=== PATIENT | male | born 1935 | race Caucasian/White ===

== ENCOUNTER → 2016-10-12 | Outpatient (CLI) | payer MEDICARE, OTHER ==
[~2016-10-12] VITALS: Ht 180.3 cm; Wt 70.3 kg
[~2016-10-12] MED LIST: ACETAMINOPHEN 325 MG TABLET/CAPLET (TYLENOL) ONE; ACETAMINOPHEN 325 MG TABLET/CAPLET (TYLENOL) PO NR; ACHD5005 PO; B12 INJECTIONS; DOXY100C2 PO; IRON INJECTIONS; IRON SUCROSE 250 MG/NS 100 ML IVPB IV NR; diphenhydrAMINE 50 MG/ML INJ (BENADRYL) IV NR; diphenhydrAMINE 50 MG/ML INJ (BENADRYL) ONE
--- OUTSIDE RECORDS SUMMARY | 2016-10-12 10:13 | XMS REPORT | Continuity of Care Document ---
Author Author [facility] Address Unknown Phone Unavailable Allergies Active Description Code Type Severity Reaction Onset Reported/Identified Relationship to Patient Clinical Status Yes ibuprofen [id number] Drug Allergy Unknown RASH 05/07/2009 Medications Problems Date Dx Coded Attending Type Code Diagnosis Diagnosed By 09/16/2013 ROSEMARIE VELASQUEZ DO V04.81 FLU SHOT 08/25/2014 LIZETTE MANCILLA MD Ot 280.9 09/08/2014 LIZETTE MANCILLA MD Ot 280.9 04/09/2015 LIZETTE MANCILLA MD Ot 280.9 05/22/2015 LIZETTE MANCILLA MD Ot 280.9 05/26/2015 LIZETTE MANCILLA MD Ot 280.9 01/12/2016 LIZETTE MANCILLA MD Ot 280.9 IRON DEFIC ANEMIA NOS 01/13/2016 LIZETTE MANCILLA MD Ot E61.1 IRON DEFICIENCY 02/27/2016 LIZETTE MANCILLA MD Ot E61.1 IRON DEFICIENCY 03/17/2016 LIZETTE MANCILLA MD Ot E61.1 IRON DEFICIENCY Procedures Results Encounters ACCT No. Visit Date/Time Discharge Status Pt. Type Provider Facility Loc./Unit Complaint [id number] 09/16/2013 10:12:00 09/16/2013 23: 59:59 CLS Outpatient ROSEMARIE VELASQUEZ DO
[2016-10-12 11:20] VITALS: BP 154/84
== END ==
LOC: SDC 10:10
PROVIDERS: ATTEND Nurse Practitioner Family
DX: D50.9 Iron deficiency anemia, unspecified (principal)
CPT/HCPCS: 96365

== ENCOUNTER → 2017-07-24 | Outpatient (CLI) | payer MEDICARE, OTHER ==
[~2017-07-24] MED LIST changes: -ACETAMINOPHEN 325 MG TABLET/CAPLET (TYLENOL) ONE; -ACETAMINOPHEN 325 MG TABLET/CAPLET (TYLENOL) PO NR; +BARIUM SUSPENSION 105% (LIQUID POLIBAR PLUS) 240 ML/DOSE PO ONE; +BARIUM SUSPENSION 60% (LIQUID EZ PAQUE) 240 ML DOSE PO ONE; -IRON SUCROSE 250 MG/NS 100 ML IVPB IV NR; -diphenhydrAMINE 50 MG/ML INJ (BENADRYL) IV NR; -diphenhydrAMINE 50 MG/ML INJ (BENADRYL) ONE
--- NOTE | 2017-07-24 11:54 | Diagnostic Imaging Report ---
EXAMINATION: Barium swallow double-contrast. INDICATION: Dysphagia Fluoroscopy time: 2 minutes and 49 seconds TECHNIQUE: Supervisor Alteration Workroom image of the chest was performed. Subsequently, the patient was given gas forming granules for oral ingestion followed by thick and thin barium to drink. Swallowing through the esophagus was observed with fluoroscopy and overhead images, as well as multiple spot images in the upright and prone positions, were taken. FINDINGS: Supervisor Alteration Workroom image of the chest demonstrate surgical clips in the upper abdomen. No significant reflux is seen during the study. Occasional tertiary contractions are from noted. There is also incomplete emptying of the esophagus. There is suggestion of a partial gastrectomy and/or gastric bypass. Correlate with surgical history. The esophagus is normal in caliber and contour. There is no mucosal abnormality, diverticulum or filling defect to suggest a mass. There is small to moderate hiatal hernia demonstrated. IMPRESSION: 1. 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 2. Small to moderate hiatal hernia. Dictated by: Dictated on workstation # [id number]
== END ==
LOC: RAD 10:35
PROVIDERS: ATTEND Nurse Practitioner Family
DX: K22.4 Dyskinesia of esophagus (principal); K44.9 Diaphragmatic hernia without obstruction or gangrene
CPT/HCPCS: 74220

== ENCOUNTER 2017-08-18 05:46 | Outpatient (CLI) | payer MEDICARE, OTHER ==
[~2017-08-18] VITALS: Ht 180.3 cm; Wt 70.3 kg
[~2017-08-18 05:46] MED LIST changes: -BARIUM SUSPENSION 105% (LIQUID POLIBAR PLUS) 240 ML/DOSE PO ONE; -BARIUM SUSPENSION 60% (LIQUID EZ PAQUE) 240 ML DOSE PO ONE
[2017-08-18] MEDS ORDERED: MORP-34 PO (14:36)
[2017-08-18] MEDS ORDERED: LISI-552 PO (14:36)
== END 2017-08-18 14:37 ==
LOC: PREOP 05:46
PROVIDERS: ATTEND Surgery
DX: Z01.818 Encounter for other preprocedural examination (principal); K21.9 Gastro-esophageal reflux disease without esophagitis

== ENCOUNTER 2017-08-24 06:37 | Day surgery (SDC) | payer MEDICARE, OTHER ==
[~2017-08-24] VITALS: Ht 180.3 cm; Wt 70.3 kg
[~2017-08-24 06:37] MED LIST changes: +LISI-552 PO; +MORP-34 PO
[2017-08-24] MEDS ORDERED: LACTATED RINGERS 1,000 ML IV STA (07:07)
[2017-08-24] MEDS ORDERED: HURRICAINE EXT TUBE (BENZOCAINE) XX PRN (07:15)
[2017-08-24 07:17] VITALS: BP 186/88
[2017-08-24] MEDS ORDERED: LACTATED RINGERS 1,000 ML IV ONE (07:17)
[2017-08-24] MEDS ORDERED: proPOfol 200 MG/20 ML (DIPRIVAN) VIAL IV ONE (07:28)
--- NOTE | 2017-08-24 08:48 | Progress Note-Pre Operative ---
Pre-Operative Progress Note H&P Reviewed The H&P was reviewed, patient examined and no changes noted. Time Seen by Provider: 08:41 Date H&P Reviewed: Aug 24, 2017 Time H&P Reviewed: 08:44 Pre-Operative Diagnosis: Dysphagia, Gastritis BETTYE ROJAS DO Aug 24, 2017 08:48
[2017-08-24] MEDS ORDERED: BENZOCAINE 20% SPRAY (HURRICANE) 60 ML CAN MT PRN (09:00)
[2017-08-24] MEDS ORDERED: LACTATED RINGERS 1,000 ML IV SCH (09:00)
[2017-08-24] MEDS ORDERED: hydrALAZINE (APESOLINE) 20 MG/ML VIAL ONE (09:08)
--- NOTE | 2017-08-24 09:14 | Progress Note-Post Operative ---
Post-Operative Progess Note Surgeon (s)/Animal Nutritionist (s) Surgeon BETTYE ROJAS DO Animal Nutritionist: none Pre-Operative Diagnosis Dysphagia, Gastritis Post-Operative Diagnosis Same Procedure & Operative Findings Date of Procedure 08/24/17 Procedure Performed/Findings EGD with bx Anesthesia Type IV sedation by [facility] Estimated Blood Loss Estimated blood loss (mL): scant Specimens/Packing Specimens Removed gastric bx, although may be small intestine BETTYE ROJAS DO Aug 24, 2017 09:14
[2017-08-24] MEDS ORDERED: PANT40TA2 PO (09:17)
--- NOTE | 2017-08-24 09:24 | Endoscopy Discharge Instruct ---
Endo Procedure/Findings Findings 1.: Gastritis Discharge Instructions - Activity: You might feel a little sleepy until tomorrow. This is due to the medicine you received to relax you. Until tomorrow, you should: NOT drive a car, operate machinery or power tools. NOT drink any alcoholic beverages. NOT make any important decisions or sign importortant papers. Do not return to work until tomorrow, unless otherwise instructed. Resume previous activities tomorrow. Diet: Start by taking liquids. If you tolerate liquids, advance to solid food. make appointment for 1 week Notify Physician - If you experience excessive bleeding, unusual abdominal pain, fever, or chest pain, contact your doctor immediately. Follow-Up: - I have received and understand the above instructions and will call my doctor if I have any further questions. Patient Signature Date Nurse Signature Other (Relationship) BETTYE ROJAS DO Aug 24, 2017 09:24
[2017-08-24 09:25] VITALS: BP 173/85
[2017-08-24 09:55] VITALS: BP 184/90
[2017-08-24 10:00] VITALS: BP 184/90
--- NOTE | 2017-08-24 21:06 | OPERATIVE REPORT ---
DATE OF SERVICE: PREOPERATIVE DIAGNOSES: Dysphagia, gastritis. POSTOPERATIVE DIAGNOSES: Dysphagia, gastritis. PROCEDURE: EGD with biopsy. SURGEON: Krish Parish DO. NOUGAT CANDY MAKER HELPER: None. ANESTHESIA: IV sedation by the MERGERS AND ACQUISITIONS CONSULTANT. BLOOD LOSS: Scant. FLUIDS: Per anesthesia. SPECIMEN: Biopsy from I believe stomach, but it may have been small intestine. The patient had previous gastric resection. INDICATION FOR PROCEDURE: The patient is an 82-year-old male who states he is having more increasing burping and trouble swallowing, some heartburn symptoms and needed a workup. FINDINGS: The patient had some pretty red tissue, unsure if this is gastric or small intestine. I did not see any masses, was very friable. Multiple pictures were taken, almost appeared like a complete gastric resection because it looked like it went right into a loop of small intestine. PROCEDURE NOTE: After informed consent was obtained, the patient was brought to the endoscopy suite, placed in the bed in the left lateral decubitus position. He was administered IV sedation by the MERGERS AND ACQUISITIONS CONSULTANT, who then monitored his vitals the entire time, heart rate, blood pressure and pulse ox. The EGD scope was inserted down the mouth into the esophagus and then down into what I thought was the stomach and I went into the stomach, pushed immediately into a loop of small intestine, pulled back and I actually saw another loop went into that side. Both of these looked good and then able to pull back and get a picture, actually looked like this was a loop of small intestine, possibly attached almost like a Billroth II or more like a gastrojejunostomy, but I could not tell where the stomach started and where the small intestine started. Took a biopsy and then pulled back a little bit to what I thought was the GE junction, very friable here as well, but did not see any obvious masses. Otherwise, the esophagus is up a little away, but it also looked a little bit erythematous, almost like it had been getting a lot of reflux or years of reflux, but again no masses and then up a little bit higher, looked fine, took pictures and then removed the scope. The patient tolerated the procedure and recovered in his room in the endoscopy suite and then transferred back to his room. Job ID: [id number] DocumentID: [id number] Dictated Date: 08/24/2017 09:40:39 Tree Planter Date: 08/24/2017 18:25:04 Dictated By: KRISH PARISH DO
== END 2017-08-24 10:00 | disposition home or self-care (01) ==
LOC: ENDO 06:37
PROVIDERS: ATTEND Surgery
DX: R13.10 Dysphagia, unspecified (principal); K29.70 Gastritis, unspecified, without bleeding; I10 Essential (primary) hypertension; Z79.899 Other long term (current) drug therapy

== ENCOUNTER 2018-05-23 14:06 | Day surgery (SDC) | payer MEDICARE, OTHER ==
[~2018-05-23] VITALS: Ht 180.3 cm; Wt 70.3 kg
[~2018-05-23 14:06] MED LIST changes: +PANT40TA2 PO
--- OUTSIDE RECORDS SUMMARY | 2018-05-23 14:13 | XMS REPORT ---
Author Author ROSEMARIE VELASQUEZ Organization [facility] [place] Address [address] [place] [address] Care Team Providers Care Nurse Informatics Educator Name Role Phone EVA ROSEMARIE Unavailable PROBLEMS Type Condition ICD9-CM Code [id number] Code Onset Dates Condition Status SNOMED Code Problem Need for prophylactic vaccination and inoculation, Influenza V04.81 Active [id number] ALLERGIES No Information ENCOUNTERS Encounter Location Date Diagnosis [place] [id number] [place] [phone] Aug, Encounter for immunization Z23 [place] [id number] [place] [phone] Jul, [place] [id number] [place] [phone] Jul[place] [id number] [place] [phone] Sep, [place] [id number] [place] [phone] Sep, IMMUNIZATIONS Vaccine Route Administration Date Status FLUARIX QUAD (3 AND UP) 2016 IM Intramuscular Aug 10, 2017 Administered SOCIAL HISTORY Never Assessed REASON FOR VISIT Flu shot-AHarrymanRN PLAN OF CARE VITAL SIGNS MEDICATIONS Unknown Medications RESULTS No Results PROCEDURES Procedure Date Ordered Result Body Site FLUARIX QUAD (3 AND UP) 2017 Aug 10, 2017 SINGLE IMMUNIZATION ADMIN Aug 10, 2017 INSTRUCTIONS MEDICATIONS ADMINISTERED No Known Medications
[2018-05-23] MEDS ORDERED: LACTATED RINGERS 1,000 ML IV ONE (14:15)
--- OUTSIDE RECORDS SUMMARY | 2018-05-23 14:15 | XMS REPORT | CCD ---
Author Author Andree Paris Organization Andree Paris MD, [facility] Address [address] [place] [address] Phone Care Team Providers Care Catalogue Clerk Name Role Phone PP Unavailable CCM Unavailable Summary Purpose Interface Exchange Insurance Providers Payer name Policy type / Coverage type Covered constitution party ID Effective Begin Date Effective End Date WPS Medicare Part B Medicare Part B [id number] Unknown Unknown FOR LIFE WPS Medicare Part B [id number] Unknown Unknown Family history Father Diagnosis Age At Onset No Known Diseases N/A Mother Diagnosis Age At Onset No Known Diseases N/A Social History Social History Element Codes Description Effective Dates Marital status Unknown 04/26/2016 Number of children Unknown 3 04/26/2016 Employment Unknown Retired 04/26/[address]: 1202965 Former smoker Quit 1968 04/26/[address]: 322151 Currently drinks alcohol 04/26/2016 Has the patient ever used illegal drugs? Unknown Has never used illegal drugs 04/26/2016 Allergies, Adverse Reactions, Alerts Substance Reaction Codes Entered Date Inactivated Date Status ibuprofen rash RxNorm: 5640 04/26/2016 No Inactive Date Active Past Medical History Illness Codes Condition Status Onset Date Resolved Date Chronic pain syndrome ICD-9: 338.4 ICD-10: G89.4 Active 12/08/2016 Unknown Dysphagia, pharyngoesophageal phase ICD-9: 787.24 ICD-10: R13.14 Active 07/18/2017 Unknown Essential (primary) hypertension ICD-9: 401.1 ICD-10: I10 Active 09/05/2016 Unknown Iron deficiency anemia, unspecified ICD-9: 280.9 ICD-10: D50.9 Active 04/25/2016 Unknown 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-9: 281.0 ICD-10: D51.0 Active 07/26/2016 Unknown Acute bronchitis, unspecified ICD-9: 466.0 ICD-10: J20.9 Active 01/12/2017 Unknown Cough ICD-9: 786.2 ICD-10: R05 Active 01/12/2017 Unknown Encounter for general adult medical examination with abnormal findings ICD-9: V70.0 ICD-10: Z00.01 Active 12/12/2016 Unknown Encounter for immunization ICD-9: V03.89 ICD-10: Z23 Active 12/12/2016 Unknown Chalazion left upper eyelid ICD-9: 373.2 ICD-10: H00.14 Active 04/25/2016 Unknown Elevated blood-pressure reading, without diagnosis of hypertension ICD-9: 796.2 ICD-10: R03.0 Active 04/25/2016 Unknown Noninfective gastroenteritis and colitis, unspecified ICD-9: 787.91 ICD-10: K52.9 Active 04/25/2016 Unknown Problems Condition Codes Effective Dates Condition Status Chronic pain syndrome ICD-9: 338.4 ICD-10: G89.4 12/08/2016 Active Dysphagia, pharyngoesophageal phase ICD-9: 787.24 ICD-10: R13.14 07/18/2017 Active Essential (primary) hypertension ICD-9: 401.1 ICD-10: I10 09/05/2016 Active Iron deficiency anemia, unspecified ICD-9: 280.9 ICD-10: D50.9 04/25/2016 Active 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-9: 281.0 ICD-10: D51.0 07/26/2016 Active Acute bronchitis, unspecified ICD-9: 466.0 ICD-10: J20.9 01/12/2017 Active Cough ICD-9: 786.2 ICD-10: R05 01/12/2017 Active Encounter for general adult medical examination with abnormal findings ICD-9: V70.0 ICD-10: Z00.01 12/12/2016 Active Encounter for immunization ICD-9: V03.89 ICD-10: Z23 12/12/2016 Active Chalazion left upper eyelid ICD-9: 373.2 ICD-10: H00.14 04/25/2016 Active Elevated blood-pressure reading, without diagnosis of hypertension ICD-9: 796.2 ICD-10: R03.0 04/25/2016 Active Noninfective gastroenteritis and colitis, unspecified ICD-9: 787.91 ICD-10: K52.9 04/25/2016 Active Medications Medication Codes Instructions Start Date Stop Date Status Fill Instructions cyanocobalamin (vit B-12) 1,000 mcg/mL injection solution RxNorm: 526400 1 Milliliter(s) Inj 09/26/2017 09/26/2017 Inactive hydrochlorothiazide 12.5 mg tablet RxNorm: 997618 1 Tablet(s) PO daily 09/26/2017 10/25/2017 Active morphine ER 30 mg tablet,extended release RxNorm: 707887 1 Tablet(s) PO daily 09/12/2017 10/11/2017 Active cyanocobalamin (vit B-12) 1,000 mcg/mL injection solution RxNorm: 795940 1 Milliliter(s) Inj 08/10/2017 08/10/2017 Inactive morphine ER 30 mg tablet,extended release RxNorm: 626974 1 Tablet(s) PO daily 08/10/2017 09/08/2017 Inactive Vitamin B-12 1,000 mcg/mL injection solution RxNorm: 383504 1 Milliliter(s) Inj month 07/21/2017 No Stop Date Active B12 INJECTIONS MONTHLY cyanocobalamin (vit B-12) 1,000 mcg/mL injection solution RxNorm: 190628 1 Milliliter(s) Inj 07/18/2017 07/18/2017 Inactive morphine ER 30 mg tablet,extended release RxNorm: 782629 1 Tablet(s) PO daily 07/13/2017 08/09/2017 Inactive morphine ER 30 mg tablet,extended release RxNorm: 245337 1 Tablet(s) PO daily 06/15/2017 07/12/2017 Inactive cyanocobalamin (vit B-12) 1,000 mcg/mL injection solution RxNorm: 587361 1 Milliliter(s) Inj 05/16/2017 05/16/2017 Inactive morphine ER 30 mg tablet,extended release RxNorm: 544908 1 Tablet(s) PO daily 04/13/2017 05/12/2017 Inactive cyanocobalamin (vit B-12) 1,000 mcg/mL injection solution RxNorm: 335895 1 Milliliter(s) Inj 03/14/2017 03/14/2017 Inactive morphine ER 30 mg tablet,extended release RxNorm: 704517 1 Tablet(s) PO daily 03/14/2017 04/12/2017 Inactive morphine ER 30 mg tablet,extended release RxNorm: 474305 1 Tablet(s) PO daily 02/13/2017 03/13/2017 Inactive Kenalog 40 mg/mL suspension for injection RxNorm: 3860530 1 Milliliter(s) Inj 01/12/2017 01/12/2017 Inactive cyanocobalamin (vit B-12) 1,000 mcg/mL injection solution RxNorm: 560992 1 Milliliter(s) Inj 01/12/2017 01/12/2017 Inactive Zithromax Z-[place] 250 mg tablet RxNorm: 649118 1 Tablet(s) PO UD 01/12/2017 01/16/2017 Inactive ceftriaxone 500 mg solution for injection RxNorm: 7793790 1 Milliliter(s) Inj 01/12/2017 01/12/2017 Inactive Vitamin B-12 1,000 mcg/mL injection solution RxNorm: 783800 1 Milliliter(s) Inj EVERY OTHER MONTH 01/04/2017 07/20/2017 Inactive lisinopril 20 mg tablet RxNorm: 160610 1 Tablet(s) PO BID 01/0212/27/2017 Active lisinopril 20 mg tablet RxNorm: 611778 1 Tablet(s) PO BID 12/1201/01/2017 Inactive morphine ER 30 mg tablet,extended release RxNorm: 388866 1 Tablet(s) PO daily 12/08/2016 01/06/2017 Inactive lisinopril 20 mg tablet RxNorm: 563923 1 Tablet(s) PO BID 11/0312/11/2016 Inactive morphine ER 30 mg tablet,extended release RxNorm: 881520 1 Tablet(s) PO daily 11/03/2016 12/02/2016 Inactive cyanocobalamin (vit B-12) 1,000 mcg/mL injection solution RxNorm: 138606 1 Milliliter(s) Inj 10/27/2016 10/27/2016 Inactive lisinopril 10 mg tablet RxNorm: 683815 1 Tablet(s) PO BID 10/0611/02/2016 Inactive lisinopril 10 mg tablet RxNorm: 664143 1 Tablet(s) PO daily 11/201610/05/2016 Inactive morphine ER 30 mg tablet,extended release RxNorm: 254379 1 Tablet(s) PO daily 08/18/2016 09/16/2016 Inactive cyanocobalamin (vit B-12) 1,000 mcg/mL injection solution RxNorm: 225239 Milliliter(s) Inj 07/27/2016 07/27/2016 Inactive morphine ER 30 mg tablet,extended release RxNorm: 155135 1 Tablet(s) PO daily 07/21/2016 08/17/2016 Inactive morphine ER 30 mg tablet,extended release RxNorm: 270653 1 Tablet(s) PO daily 06/20/2016 07/19/2016 Inactive morphine ER 30 mg tablet,extended release RxNorm: 598731 1 Tablet(s) PO daily 05/20/2016 06/19/2016 Inactive cyanocobalamin (vit B-12) 1,000 mcg/mL injection solution RxNorm: 893474 1 Milliliter(s) Inj 04/26/2016 04/26/2016 Inactive gentamicin 0.3 % eye drops RxNorm: 052462 2 Drop(s) OPH Q4H 05/02/2016 Inactive Venofer intravenous RxNorm: 03267 intravenous No Start Date Active Vitamin B-12 1,000 mcg/mL injection solution RxNorm: 431095 1 Milliliter(s) Inj EVERY 3 MONTHS No Start Date 01/03/2017 Inactive Claritin 10 mg tablet RxNorm: 219850 1 Tablet(s) PO daily No Start Date 07/17/2017 Inactive morphine ER 30 mg tablet,extended release RxNorm: 181107 1 Tablet(s) PO daily No Start Date 04/25/2016 Inactive Medication Administered Medication Codes Instructions Start Date Status cyanocobalamin (vit B-12) 1,000 mcg/mL injection solution RxNorm: 426187 1Milliliter 09/26/2017 Active cyanocobalamin (vit B-12) 1,000 mcg/mL injection solution RxNorm: 430490 1Milliliter 08/10/2017 No longer Active cyanocobalamin (vit B-12) 1,000 mcg/mL injection solution RxNorm: 428548 1Milliliter 07/18/2017 No longer Active cyanocobalamin (vit B-12) 1,000 mcg/mL injection solution RxNorm: 220334 1Milliliter 05/16/2017 No longer Active cyanocobalamin (vit B-12) 1,000 mcg/mL injection solution RxNorm: 603240 1Milliliter 03/14/2017 No longer Active Kenalog 40 mg/mL suspension for injection RxNorm: 6208415 1Milliliter 01/12/2017 No longer Active ceftriaxone 500 mg solution for injection RxNorm: 1766725 1Milliliter 01/12/2017 No longer Active cyanocobalamin (vit B-12) 1,000 mcg/mL injection solution RxNorm: 728736 1Milliliter 01/12/2017 No longer Active cyanocobalamin (vit B-12) 1,000 mcg/mL injection solution RxNorm: 081584 1Milliliter 10/27/2016 No longer Active cyanocobalamin (vit B-12) 1,000 mcg/mL injection solution RxNorm: 857895 Milliliter 07/27/2016 No longer Active cyanocobalamin (vit B-12) 1,000 mcg/mL injection solution RxNorm: 814823 1Milliliter 04/26/2016 No longer Active Immunizations Vaccine Codes Date Status Pneumococcal (Adult) CVX: 133 12/12/2016 completed Assessments Condition Codes Effective Dates Essential (primary) hypertension ICD-10: I10 ICD-9: 401.1 09/26/2017 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-10: D51.0 ICD-9: 281.0 09/26/2017 Chronic pain syndrome ICD-10: G89.4 ICD-9: 338.4 09/26/2017 Dysphagia, pharyngoesophageal phase ICD-10: R13.14 ICD-9: 787.24 08/16/2017 Iron deficiency anemia, unspecified ICD-10: D50.9 ICD-9: 280.9 07/18/2017 Acute bronchitis, unspecified ICD-10: J20.9 ICD-9: 466.0 01/12/2017 Cough ICD-10: R05 ICD-9: 786.2 01/12/2017 Encounter for general adult medical examination with abnormal findings ICD-10: Z00.01 ICD-9: V70.0 12/12/2016 Encounter for immunization ICD-10: Z23 ICD-9: V03.89 12/12/2016 Noninfective gastroenteritis and colitis, unspecified ICD-10 : K52.9 ICD-9: 787.91 04/26/2016 Elevated blood-pressure reading, without diagnosis of hypertension ICD-10: R03.0 ICD-9: 796.2 04/26/2016 Chalazion left upper eyelid ICD-10: H00.14 ICD-9: 373.2 04/26/2016 Reason For Visit Reason For Visit Effective Dates Notes hypertension 09/26/2017 gastroesophageal reflux 08/16/2017 hypertension 07/18/2017 blood pressure followup 05/16/2017 blood pressure followup 03/14/2017 blood pressure followup 01/12/2017 Annual Medicare Wellness Exam 12/12/2016 blood pressure followup 12/08/2016 blood pressure followup 11/03/2016 blood pressure followup 10/06/2016 blood pressure followup 09/06/2016 blood pressure followup 08/23/2016 _ 04/26/2016 establish care Results Observation Observation Code Item Item Code Result Date Ferritin Ord22 FERRITIN 211.2 ng/mL 07/18/2017 Cbc With Differential Ord2 WBC 8.61 K/ul 07/18/2017 Cbc With Differential Ord2 RBC 4.48 M/ul 07/18/2017 Cbc With Differential Ord2 HGB 15.1 g/dl 07/18/2017 Cbc With Differential Ord2 Neut% 51.5 % 07/18/2017 Cbc With Differential Ord2 HCT 45.1 % 07/18/2017 Cbc With Differential Ord2 MCV 100.7 fl 07/18/2017 Cbc With Differential Ord2 Lymph% 33.7 % 07/18/2017 Cbc With Differential Ord2 Whitley% 12.3 % 07/18/2017 Cbc With Differential Ord2 MCH 33.7 pg 07/18/2017 Cbc With Differential Ord2 MCHC 33.5 pg 07/18/2017 Cbc With Differential Ord2 Eos% 2.0 % 07/18/2017 Cbc With Differential Ord2 Baso% 0.5 % 07/18/2017 Cbc With Differential Ord2 PLT 305 K/ul 07/18/2017 Cbc With Differential Ord2 Neut ABS# 4.44 K/ul 07/18/2017 Cbc With Differential Ord2 RDW 13.9 % 07/18/2017 Cbc With Differential Ord2 Lymph ABS# 2.90 K/ul 07/18/2017 Cbc With Differential Ord2 Whitley ABS# 1.1 K/ul 07/18/2017 Cbc With Differential Ord2 Eos ABS# 0.2 K/ul 07/18/2017 Cbc With Differential Ord2 Baso ABS# 0.0 K/ul 07/18/2017 Comp Metabolic Tkr034 NA 140 mEq/L 07/18/2017 Comp Metabolic Ngj668 K 4.6 mEq/L 07/18/2017 Comp Metabolic Nes378 CL 105 mEq/L 07/18/2017 Comp Metabolic Tdo120 CO2 29.0 mEq/L 07/18/2017 Comp Metabolic Zkc494 ANION GAP 11 07/18/2017 Comp Metabolic Xey473 GLUCOSE 96 mg/dL 07/18/2017 Comp Metabolic Jtq889 Creat 1.0 mg/dL 07/18/2017 Comp Metabolic Wpl624 eGFR 73 ml/min/1.73m2 07/18/2017 Comp Metabolic Trt347 BUN 12 mg/dL 07/18/2017 Comp Metabolic Ozh669 B/C Ratio 11.7 Ratio 07/18/2017 Comp Metabolic Yaw457 CALCIUM 9.2 mg/dL 07/18/2017 Comp Metabolic Nmm420 ALK PHOS 74 U/L 07/18/2017 Comp Metabolic Ajy080 AST(SGOT) 29 U/L 07/18/2017 Comp Metabolic Lqa092 ALT(SGPT) 16 U/L 07/18/2017 Comp Metabolic Ufc609 BILI T 0.7 mg/dL 07/18/2017 Comp Metabolic Uvn485 ALBUMIN 3.7 g/dL 07/18/2017 Comp Metabolic Xhf756 TPRO 6.5 g/dL 07/18/2017 Comp Metabolic Qmf284 GLOB 2.8 g/dL 07/18/2017 Comp Metabolic Sfo050 A/G Ratio 1.3 Ratio 07/18/2017 Comp Metabolic Rzg561 Osmo 279 mOsmo 07/18/2017 Iron Ord72 Iron 114 ug/dl 07/18/2017 B12 Xaq377 B12 233.00 pg/ml 07/18/2017 Tsh Ord6 hTSH II 0.97 uIU/mL 12/13/2016 Cbc With Differential Ord2 WBC 9.42 K/ul 12/13/2016 Cbc With Differential Ord2 RBC 4.33 M/ul 12/13/2016 Cbc With Differential Ord2 HGB 14.4 g/dl 12/13/2016 Cbc With Differential Ord2 Neut% 49.6 % 12/13/2016 Cbc With Differential Ord2 HCT 43.3 % 12/13/2016 Cbc With Differential Ord2 MCV 100.0 fl 12/13/2016 Cbc With Differential Ord2 Lymph% 28.8 % 12/13/2016 Cbc With Differential Ord2 MCH 33.3 pg 12/13/2016 Cbc With Differential Ord2 Whitley% 17.9 % 12/13/2016 Cbc With Differential Ord2 MCHC 33.3 pg 12/13/2016 Cbc With Differential Ord2 Eos% 3.3 % 12/13/2016 Cbc With Differential Ord2 PLT 380 K/ul 12/13/2016 Cbc With Differential Ord2 Baso% 0.4 % 12/13/2016 Cbc With Differential Ord2 RDW 14.4 % 12/13/2016 Cbc With Differential Ord2 Neut ABS# 4.67 K/ul 12/13/2016 Cbc With Differential Ord2 Lymph ABS# 2.71 K/ul 12/13/2016 Cbc With Differential Ord2 Whitley ABS# 1.7 K/ul 12/13/2016 Cbc With Differential Ord2 Eos ABS# 0.3 K/ul 12/13/2016 Cbc With Differential Ord2 Baso ABS# 0.0 K/ul 12/13/2016 Comp Metabolic Ypu970 NA 136 mEq/L 12/13/2016 Comp Metabolic Lzz344 K 4.7 mEq/L 12/13/2016 Comp Metabolic Pde036 CL 102 mEq/L 12/13/2016 Comp Metabolic Yke016 CO2 26.0 mEq/L 12/13/2016 Comp Metabolic Xyr111 ANION GAP 13 12/13/2016 Comp Metabolic Qdf653 GLUCOSE 87 mg/dL 12/13/2016 Comp Metabolic Iqd908 Creat 0.9 mg/dL 12/13/2016 Comp Metabolic Idy807 eGFR 83 ml/min/1.73m2 12/13/2016 Comp Metabolic Rxe357 BUN 17 mg/dL 12/13/2016 Comp Metabolic Ahm621 B/C Ratio 18.3 Ratio 12/13/2016 Comp Metabolic Xlf057 CALCIUM 9.1 mg/dL 12/13/2016 Comp Metabolic Whe657 ALK PHOS 90 U/L 12/13/2016 Comp Metabolic Jsx662 AST(SGOT) 22 U/L 12/13/2016 Comp Metabolic Aqv584 ALT(SGPT) 15 U/L 12/13/2016 Comp Metabolic Zpd599 BILI T 0.8 mg/dL 12/13/2016 Comp Metabolic Bji048 ALBUMIN 3.6 g/dL 12/13/2016 Comp Metabolic Dlf822 TPRO 6.4 g/dL 12/13/2016 Comp Metabolic Pzw158 GLOB 2.9 g/dL 12/13/2016 Comp Metabolic Lsj218 A/G Ratio 1.2 Ratio 12/13/2016 Comp Metabolic Brn679 Osmo 273 mOsmo 12/13/2016 Lipid Ord30 CHOL 182 mg/dL 12/13/2016 Lipid Ord30 HDL 64.0 mg/dl 12/13/2016 Lipid Ord30 TRIG 62 mg/dL 12/13/2016 Lipid Ord30 LDL 106 mg/dL 12/13/2016 Lipid Ord30 C/HDL 2.8 Ratio 12/13/2016 Ferritin Ord22 FERRITIN 434.7 ng/mL 12/13/2016 B12 Vgg563 B12 247.00 pg/ml 12/13/2016 Tibc Ord40 Iron 79 ug/dl 12/13/2016 Tibc Ord40 UIBC 218 ug/dL 12/13/2016 Tibc Ord40 TIBC 297 ug/dL 12/13/2016 Tibc Ord40 Fe-%Sat 26.6 % 12/13/2016 Cbc With Differential Ord2 WBC 8.79 K/ul 04/27/2016 Cbc With Differential Ord2 RBC 4.36 M/ul 04/27/2016 Cbc With Differential Ord2 HGB 14.7 g/dl 04/27/2016 Cbc With Differential Ord2 HCT 44.4 % 04/27/2016 Cbc With Differential Ord2 Neut% 45.8 % 04/27/2016 Cbc With Differential Ord2 Lymph% 36.6 % 04/27/2016 Cbc With Differential Ord2 MCV 101.8 fl 04/27/2016 Cbc With Differential Ord2 MCH 33.7 pg 04/27/2016 Cbc With Differential Ord2 Whitley% 13.7 % 04/27/2016 Cbc With Differential Ord2 Eos% 3.6 % 04/27/2016 Cbc With Differential Ord2 MCHC 33.1 pg 04/27/2016 Cbc With Differential Ord2 PLT 295 K/ul 04/27/2016 Cbc With Differential Ord2 Baso% 0.3 % 04/27/2016 Cbc With Differential Ord2 Neut ABS# 4.02 K/ul 04/27/2016 Cbc With Differential Ord2 RDW 14.4 % 04/27/2016 Cbc With Differential Ord2 Lymph ABS# 3.22 K/ul 04/27/2016 Cbc With Differential Ord2 Whitley ABS# 1.2 K/ul 04/27/2016 Cbc With Differential Ord2 Eos ABS# 0.3 K/ul 04/27/2016 Cbc With Differential Ord2 Baso ABS# 0.0 K/ul 04/27/2016 Comp Metabolic Aec568 NA 138 mEq/L 04/27/2016 Comp Metabolic Kvd438 K 4.3 mEq/L 04/27/2016 Comp Metabolic Lkd337 CL 104 mEq/L 04/27/2016 Comp Metabolic Bqp016 CO2 30.0 mEq/L 04/27/2016 Comp Metabolic Pdt010 ANION GAP 8 04/27/2016 Comp Metabolic Xjm781 GLUCOSE 87 mg/dL 04/27/2016 Comp Metabolic Bny374 Creat 0.9 mg/dL 04/27/2016 Comp Metabolic Cec818 eGFR 82 ml/min/1.73m2 04/27/2016 Comp Metabolic Uvt228 BUN 13 mg/dL 04/27/2016 Comp Metabolic Suf513 B/C Ratio 13.8 Ratio 04/27/2016 Comp Metabolic Ylg908 CALCIUM 9.0 mg/dL 04/27/2016 Comp Metabolic Pdv390 ALK PHOS 62 U/L 04/27/2016 Comp Metabolic Qri430 AST(SGOT) 24 U/L 04/27/2016 Comp Metabolic Iny554 ALT(SGPT) 15 U/L 04/27/2016 Comp Metabolic Qqn046 BILI T 0.7 mg/dL 04/27/2016 Comp Metabolic Mvg297 ALBUMIN 3.6 g/dL 04/27/2016 Comp Metabolic Ong723 TPRO 6.1 g/dL 04/27/2016 Comp Metabolic Jdh013 GLOB 2.5 g/dL 04/27/2016 Comp Metabolic Xdg008 A/G Ratio 1.4 Ratio 04/27/2016 Comp Metabolic Tee149 Osmo 275 mOsmo 04/27/2016 B12 App978 B12 >1500.00 pg/ml 04/27/2016 Iron Ord72 Iron 104 ug/dl 04/27/2016 Lipid Ord30 CHOL 178 mg/dL 04/27/2016 Lipid Ord30 HDL 70.0 mg/dl 04/27/2016 Lipid Ord30 TRIG 57 mg/dL 04/27/2016 Lipid Ord30 LDL 97 mg/dL 04/27/2016 Lipid Ord30 C/HDL 2.5 Ratio 04/27/2016 Tsh Ord6 hTSH II 1.89 uIU/mL 04/27/2016 Review of Systems System Result Effective Dates Constitutional No chills 09/26/2017 Constitutional No diaphoresis 09/26/2017 Constitutional fatigue 09/26/2017 Eyes No eye discharge 09/26/2017 Eyes No eye erythema 09/26/2017 Ears/Nose/Throat/Neck No dizziness 2017 Ears/Nose/Throat/Neck No headache 2017 Cardiovascular No chest pain/pressure Cardiovascular No dyspnea 09/26/2017 Cardiovascular edema 09/26/2017 Cardiovascular hypertension 09/26/2017 Respiratory No productive sputum 2017 Respiratory No cough 09/26/2017 Gastrointestinal constipation 09/26/2017 Gastrointestinal No diarrhea 09/26/2017 Musculoskeletal joint complaint 2017 Dermatologic No rash 09/26/2017 Neurologic No alteration of consciousness 09/26/2017 Constitutional No recent illness 2017 Constitutional No fever 09/26/2017 Ears/Nose/Throat/Neck No nasal discharge 09/26/2017 Cardiovascular No near-syncope/dizziness 09/26/2017 Cardiovascular No palpitations 2017 Gastrointestinal No abdominal pain 2017 Gastrointestinal No gastroesophageal reflux 09/26/2017 Neurologic No mental status change 2017 Constitutional No recent illness 2016 Constitutional No chills 08/16/2017 Constitutional No diaphoresis 08/16/2017 Constitutional No fever 08/16/2017 Eyes No eye erythema 08/16/2017 Ears/Nose/Throat/Neck No nasal discharge 08/16/2017 Ears/Nose/Throat/Neck No nasal allergies 08/16/2017 Cardiovascular No chest pain/pressure Cardiovascular No dyspnea 08/16/2017 Respiratory No cough 08/16/2017 Respiratory No chest congestion 2016 Gastrointestinal abdominal pain 2016 Gastrointestinal No constipation 2016 Gastrointestinal No diarrhea 08/16/2017 Gastrointestinal gas and bloating 2016 Gastrointestinal gastroesophageal reflux 08/16/2017 Gastrointestinal No hematochezia 2016 Gastrointestinal No hematemesis 2016 Gastrointestinal No melena 08/16/2017 Gastrointestinal vomiting 08/16/2017 Gastrointestinal nausea 08/16/2017 Gastrointestinal dysphagia 08/16/2017 Musculoskeletal No joint complaint 2016 Dermatologic No rash 08/16/2017 Neurologic No alteration of consciousness 08/16/2017 Neurologic No mental status change 2016 Constitutional No recent illness 2016 Constitutional No anorexia 07/18/2017 Constitutional No night sweats 2016 Constitutional No chills 07/18/2017 Constitutional No diaphoresis 07/18/2017 Constitutional fatigue 07/18/2017 Constitutional No fever 07/18/2017 Constitutional No insomnia 07/18/2017 Constitutional No malaise 07/18/2017 Constitutional No weight loss 07/18/2017 Constitutional No weight gain 07/18/2017 Eyes No eye discharge 07/18/2017 Eyes No eye erythema 07/18/2017 Ears/Nose/Throat/Neck No dizziness 2016 Ears/Nose/Throat/Neck No headache 2016 Cardiovascular No chest pain/pressure Cardiovascular No dyspnea 07/18/2017 Cardiovascular edema 07/18/2017 Respiratory No productive sputum 2016 Respiratory No cough 07/18/2017 Gastrointestinal abdominal pain 2016 Genitourinary/Nephrology No dysuria 07/18 Musculoskeletal joint complaint 2016 Dermatologic No rash 07/18/2017 Neurologic No alteration of consciousness 07/18/2017 Psychiatric No anxiety 07/18/2017 Endocrine No dry or coarse skin 2016 Hematologic/Lymphatic No abnormal ecchymoses 07/18/2017 Cardiovascular hypertension 07/18/2017 Gastrointestinal constipation 07/18/2017 Gastrointestinal No diarrhea 07/18/2017 Gastrointestinal gastroesophageal reflux 07/18/2017 Constitutional No recent illness 2016 Constitutional No anorexia 05/16/2017 Constitutional No night sweats 2016 Constitutional No chills 05/16/2017 Constitutional No diaphoresis 05/16/2017 Constitutional fatigue 05/16/2017 Constitutional No fever 05/16/2017 Constitutional No insomnia 05/16/2017 Constitutional No malaise 05/16/2017 Constitutional No weight loss 05/16/2017 Constitutional No weight gain 05/16/2017 Eyes No eye discharge 05/16/2017 Eyes No eye erythema 05/16/2017 Ears/Nose/Throat/Neck No dizziness 2016 Ears/Nose/Throat/Neck No headache 2016 Cardiovascular No chest pain/pressure 08/2017 Cardiovascular No dyspnea 05/16/2017 Respiratory No productive sputum 2016 Respiratory No cough 05/16/2017 Gastrointestinal No abdominal pain 2016 Genitourinary/Nephrology No dysuria 05/16 Musculoskeletal joint complaint 2016 Dermatologic No rash 05/16/2017 Neurologic No alteration of consciousness 05/16/2017 Psychiatric No anxiety 05/16/2017 Endocrine No dry or coarse skin 2016 Hematologic/Lymphatic No abnormal ecchymoses 05/16/2017 Cardiovascular edema 05/16/2017 Constitutional No recent illness 2016 Constitutional No anorexia 03/14/2017 Constitutional No night sweats 2016 Constitutional No chills 03/14/2017 Constitutional No diaphoresis 03/14/2017 Constitutional fatigue 03/14/2017 Constitutional No fever 03/14/2017 Constitutional No insomnia 03/14/2017 Constitutional No malaise 03/14/2017 Constitutional No weight loss 03/14/2017 Constitutional No weight gain 03/14/2017 Eyes No eye discharge 03/14/2017 Eyes No eye erythema 03/14/2017 Ears/Nose/Throat/Neck No dizziness 2016 Ears/Nose/Throat/Neck No headache 2016 Cardiovascular No chest pain/pressure 07/2017 Cardiovascular No dyspnea 03/14/2017 Respiratory No productive sputum 2016 Respiratory No cough 03/14/2017 Gastrointestinal No abdominal pain 2016 Genitourinary/Nephrology No dysuria 03/14 Musculoskeletal joint complaint 2016 Dermatologic No rash 03/14/2017 Neurologic No alteration of consciousness 03/14/2017 Psychiatric No anxiety 03/14/2017 Endocrine No dry or coarse skin 2016 Hematologic/Lymphatic No abnormal ecchymoses 03/14/2017 Constitutional recent illness 01/12/2017 Constitutional fever 01/12/2017 Constitutional No chills 01/12/2017 Constitutional fatigue 01/12/2017 Constitutional weight loss 01/12/2017 Constitutional No weight gain 01/12/2017 Constitutional No obesity 01/12/2017 Constitutional malaise 01/12/2017 Constitutional No diaphoresis 01/12/2017 Constitutional No night sweats 2016 Constitutional No insomnia 01/12/2017 Constitutional No anorexia 01/12/2017 Eyes No eye discharge 01/12/2017 Eyes No eye pain 01/12/2017 Ears/Nose/Throat/Neck headache 2016 Ears/Nose/Throat/Neck No dizziness 2016 Ears/Nose/Throat/Neck nasal discharge 07/2017 Ears/Nose/Throat/Neck sinus congestion Ears/Nose/Throat/Neck sore throat 2016 Cardiovascular No chest pain/pressure 07/2017 Cardiovascular fatigue 01/12/2017 Cardiovascular No dyspnea 01/12/2017 Respiratory productive sputum 01/12/2017 Respiratory chest congestion 01/12/2017 Respiratory chest tightness 01/12/2017 Respiratory cough 01/12/2017 Respiratory No dyspnea 01/12/2017 Gastrointestinal No abdominal pain 2016 Gastrointestinal No constipation 2016 Gastrointestinal No diarrhea 01/12/2017 Gastrointestinal No nausea 01/12/2017 Gastrointestinal No vomiting 01/12/2017 Genitourinary/Nephrology No anuria/oliguria 01/12/2017 Genitourinary/Nephrology No dysuria 01/12 Musculoskeletal arthralgia(s) 01/12/2017 Musculoskeletal swelling 01/12/2017 Musculoskeletal stiffness 01/12/2017 Musculoskeletal myalgias 01/12/2017 Dermatologic No rash 01/12/2017 Dermatologic No sores 01/12/2017 Neurologic No alteration of consciousness 01/12/2017 Neurologic No memory loss 01/12/2017 Neurologic No mental status change 2016 Psychiatric No anxiety 01/12/2017 Psychiatric No depression 01/12/2017 Hematologic/Lymphatic No abnormal ecchymoses 01/12/2017 Hematologic/Lymphatic No abnormal bleeding and bruising 01/12/2017 Endocrine No polyuria 01/12/2017 Endocrine No polydipsia 01/12/2017 Endocrine No weakness 01/12/2017 Constitutional No recent illness 2016 Constitutional No anorexia 12/12/2016 Constitutional No night sweats 2016 Constitutional No chills 12/12/2016 Constitutional No diaphoresis 12/12/2016 Constitutional fatigue 12/12/2016 Constitutional No fever 12/12/2016 Constitutional No insomnia 12/12/2016 Constitutional No malaise 12/12/2016 Constitutional No weight loss 12/12/2016 Constitutional No weight gain 12/12/2016 Eyes No eye erythema 12/12/2016 Eyes No eye discharge 12/12/2016 Ears/Nose/Throat/Neck No dizziness 2016 Ears/Nose/Throat/Neck No headache 2016 Cardiovascular No chest pain/pressure 06/2017 Cardiovascular No dyspnea 12/12/2016 Respiratory No productive sputum 2016 Respiratory No cough 12/12/2016 Gastrointestinal No abdominal pain 2016 Genitourinary/Nephrology No dysuria 12/12 Musculoskeletal joint complaint 2016 Dermatologic No rash 12/12/2016 Neurologic No alteration of consciousness 12/12/2016 Psychiatric No anxiety 12/12/2016 Endocrine No dry or coarse skin 2016 Hematologic/Lymphatic No abnormal ecchymoses 12/12/2016 Constitutional No recent illness 2016 Constitutional No anorexia 12/08/2016 Constitutional No night sweats 2016 Constitutional No chills 12/08/2016 Constitutional No diaphoresis 12/08/2016 Constitutional No fatigue 12/08/2016 Constitutional No fever 12/08/2016 Constitutional No insomnia 12/08/2016 Constitutional No malaise 12/08/2016 Eyes No eye pain 12/08/2016 Eyes No vision change 12/08/2016 Ears/Nose/Throat/Neck No dizziness 2016 Ears/Nose/Throat/Neck No headache 2016 Cardiovascular No chest pain/pressure 02/2017 Respiratory No chest tightness 2016 Respiratory No chest congestion 2016 Respiratory No cough 12/08/2016 Gastrointestinal constipation 12/08/2016 Gastrointestinal No diarrhea 12/08/2016 Gastrointestinal No nausea 12/08/2016 Gastrointestinal No vomiting 12/08/2016 Genitourinary/Nephrology No anuria/oliguria 12/08/2016 Genitourinary/Nephrology No dysuria 12/08 Musculoskeletal stiffness 12/08/2016 Musculoskeletal swelling 12/08/2016 Musculoskeletal joint complaint 2016 Dermatologic No rash 12/08/2016 Dermatologic No sores 12/08/2016 Neurologic No memory loss 12/08/2016 Neurologic No mental status change 2016 Psychiatric No anxiety 12/08/2016 Psychiatric No depression 12/08/2016 Endocrine No polyuria 12/08/2016 Endocrine No polydipsia 12/08/2016 Hematologic/Lymphatic No abnormal ecchymoses 12/08/2016 Hematologic/Lymphatic No abnormal bleeding and bruising 12/08/2016 Constitutional No recent illness 2016 Constitutional No anorexia 11/03/2016 Constitutional No night sweats 2016 Constitutional No chills 11/03/2016 Constitutional No diaphoresis 11/03/2016 Constitutional No fatigue 11/03/2016 Constitutional No fever 11/03/2016 Constitutional No insomnia 11/03/2016 Constitutional No malaise 11/03/2016 Constitutional No weight loss 11/03/2016 Constitutional No weight gain 11/03/2016 Constitutional No obesity 11/03/2016 Eyes No eye pain 11/03/2016 Eyes No vision change 11/03/2016 Ears/Nose/Throat/Neck No dizziness 2016 Ears/Nose/Throat/Neck headache 2016 Cardiovascular No chest pain/pressure 10/2016 Cardiovascular No dyspnea 11/03/2016 Cardiovascular No fatigue 11/03/2016 Respiratory No chest congestion 2016 Respiratory No chest tightness 2016 Respiratory No cigarette smoking 2016 Respiratory No cough 11/03/2016 Gastrointestinal No abdominal pain 2016 Gastrointestinal No diarrhea 11/03/2016 Gastrointestinal No nausea 11/03/2016 Gastrointestinal No vomiting 11/03/2016 Genitourinary/Nephrology No anuria/oliguria 11/03/2016 Genitourinary/Nephrology No dysuria 11/03 Genitourinary/Nephrology No flank pain Musculoskeletal No stiffness 11/03/2016 Musculoskeletal No swelling 11/03/2016 Musculoskeletal No arthralgia(s) 2016 Musculoskeletal No back pain 11/03/2016 Dermatologic rash 11/03/2016 Dermatologic No sores 11/03/2016 Neurologic No alteration of consciousness 11/03/2016 Neurologic No dizziness 11/03/2016 Neurologic No memory loss 11/03/2016 Neurologic No mental status change 2016 Psychiatric No anxiety 11/03/2016 Psychiatric No depression 11/03/2016 Hematologic/Lymphatic No abnormal ecchymoses 11/03/2016 Hematologic/Lymphatic No abnormal bleeding and bruising 11/03/2016 Constitutional No recent illness 2016 Constitutional No anorexia 10/06/2016 Constitutional No night sweats 2016 Constitutional No chills 10/06/2016 Constitutional No diaphoresis 10/06/2016 Constitutional No fatigue 10/06/2016 Constitutional No fever 10/06/2016 Constitutional No insomnia 10/06/2016 Constitutional No malaise 10/06/2016 Constitutional No weight loss 10/06/2016 Constitutional No weight gain 10/06/2016 Constitutional No obesity 10/06/2016 Eyes No eye pain 10/06/2016 Eyes No vision change 10/06/2016 Ears/Nose/Throat/Neck No dizziness 2016 Ears/Nose/Throat/Neck headache 2016 Cardiovascular No chest pain/pressure 10/2016 Cardiovascular No dyspnea 10/06/2016 Cardiovascular No fatigue 10/06/2016 Respiratory No cough 10/06/2016 Respiratory No cigarette smoking 2016 Respiratory No chest tightness 2016 Respiratory No chest congestion 2016 Gastrointestinal constipation 10/06/2016 Gastrointestinal No diarrhea 10/06/2016 Gastrointestinal No abdominal pain 2016 Gastrointestinal No nausea 10/06/2016 Gastrointestinal No vomiting 10/06/2016 Genitourinary/Nephrology No dysuria 10/06 Genitourinary/Nephrology No flank pain Genitourinary/Nephrology No anuria/oliguria 10/06/2016 Musculoskeletal No stiffness 10/06/2016 Musculoskeletal No swelling 10/06/2016 Musculoskeletal No arthralgia(s) 2016 Musculoskeletal No back pain 10/06/2016 Dermatologic rash 10/06/2016 Dermatologic No sores 10/06/2016 Neurologic No alteration of consciousness 10/06/2016 Neurologic No dizziness 10/06/2016 Neurologic No memory loss 10/06/2016 Neurologic No mental status change 2016 Psychiatric No anxiety 10/06/2016 Psychiatric No depression 10/06/2016 Hematologic/Lymphatic No abnormal ecchymoses 10/06/2016 Hematologic/Lymphatic No abnormal bleeding and bruising 10/06/2016 Constitutional No recent illness 2016 Constitutional No anorexia 09/06/2016 Constitutional No night sweats 2016 Constitutional No chills 09/06/2016 Constitutional No diaphoresis 09/06/2016 Constitutional No fatigue 09/06/2016 Constitutional No fever 09/06/2016 Constitutional No insomnia 09/06/2016 Constitutional No malaise 09/06/2016 Constitutional No weight loss 09/06/2016 Constitutional No weight gain 09/06/2016 Eyes No eye discharge 09/06/2016 Ears/Nose/Throat/Neck No dizziness 2016 Ears/Nose/Throat/Neck No headache 2016 Cardiovascular No chest pain/pressure 11/2016 Cardiovascular No dyspnea 09/06/2016 Cardiovascular No edema 09/06/2016 Cardiovascular No fatigue 09/06/2016 Cardiovascular hypertension 09/06/2016 Respiratory No cough 09/06/2016 Gastrointestinal abdominal pain 2016 Genitourinary/Nephrology No dysuria 09/06 Musculoskeletal No joint complaint 2016 Dermatologic No rash 09/06/2016 Neurologic No alteration of consciousness 09/06/2016 Neurologic No dizziness 09/06/2016 Neurologic No headache 09/06/2016 Neurologic No syncope 09/06/2016 Constitutional No recent illness 2015 Constitutional No anorexia 08/23/2016 Constitutional No night sweats 2015 Constitutional No chills 08/23/2016 Constitutional No diaphoresis 08/23/2016 Constitutional No fatigue 08/23/2016 Constitutional No fever 08/23/2016 Constitutional No insomnia 08/23/2016 Constitutional No malaise 08/23/2016 Constitutional No weight loss 08/23/2016 Constitutional No weight gain 08/23/2016 Eyes No eye discharge 08/23/2016 Ears/Nose/Throat/Neck No dizziness 2015 Ears/Nose/Throat/Neck No headache 2015 Cardiovascular No chest pain/pressure Cardiovascular No dyspnea 08/23/2016 Cardiovascular No edema 08/23/2016 Cardiovascular No fatigue 08/23/2016 Cardiovascular hypertension 08/23/2016 Respiratory No cough 08/23/2016 Musculoskeletal No joint complaint 2015 Dermatologic No rash 08/23/2016 Genitourinary/Nephrology No dysuria 08/23 Gastrointestinal abdominal pain 2015 Neurologic No alteration of consciousness 08/23/2016 Neurologic No dizziness 08/23/2016 Neurologic No headache 08/23/2016 Neurologic No syncope 08/23/2016 Constitutional No recent illness 2015 Constitutional No chills 04/26/2016 Constitutional No fatigue 04/26/2016 Constitutional No fever 04/26/2016 Constitutional No insomnia 04/26/2016 Constitutional No malaise 04/26/2016 Eyes No blindness 04/26/2016 Eyes No vision change 04/26/2016 Eyes eyelid erythema 04/26/2016 Ears/Nose/Throat/Neck No dental pain Ears/Nose/Throat/Neck No dizziness 2015 Ears/Nose/Throat/Neck No dysphagia 2015 Ears/Nose/Throat/Neck No headache 2015 Ears/Nose/Throat/Neck No hearing loss Ears/Nose/Throat/Neck No nasal allergies 04/26/2016 Ears/Nose/Throat/Neck No sore throat Ears/Nose/Throat/Neck No postnasal drip 04/26/2016 Ears/Nose/Throat/Neck No sinus congestion 04/26/2016 Cardiovascular No chest pain/pressure Cardiovascular No dyspnea 04/26/2016 Cardiovascular No edema 04/26/2016 Cardiovascular No exercise intolerance Cardiovascular No fatigue 04/26/2016 Cardiovascular No near-syncope/dizziness 04/26/2016 Respiratory No chest tightness 2015 Respiratory No cigarette smoking 2015 Respiratory No cough 04/26/2016 Respiratory No dyspnea 04/26/2016 Respiratory No pedal edema 04/26/2016 Respiratory No snoring 04/26/2016 Respiratory No wheezing 04/26/2016 Gastrointestinal No hemorrhoids 2015 Gastrointestinal No abdominal pain 2015 Gastrointestinal No constipation 2015 Gastrointestinal diarrhea 04/26/2016 Gastrointestinal No gastroesophageal reflux 04/26/2016 Gastrointestinal No melena 04/26/2016 Gastrointestinal No nausea 04/26/2016 Gastrointestinal No vomiting 04/26/2016 Genitourinary/Nephrology No dysuria 04/26 Genitourinary/Nephrology No nocturia Genitourinary/Nephrology No urinary incontinence 04/26/2016 Psychiatric No anxiety 04/26/2016 Psychiatric No depression 04/26/2016 Neurologic No dizziness 04/26/2016 Neurologic No headache 04/26/2016 Neurologic No neck pain 04/26/2016 Neurologic No syncope 04/26/2016 Dermatologic No rash 04/26/2016 Dermatologic No scar 04/26/2016 Musculoskeletal No stiffness 04/26/2016 Musculoskeletal No swelling 04/26/2016 Musculoskeletal No muscle weakness 2015 Musculoskeletal No myalgias 04/26/2016 Endocrine No goiter 04/26/2016 Physical Exam Exam Name System Name Item Name Status Result Effective Dates Notes Full Exam - General 1994 Eyes conjunctiva /eyelids Overall: conjunctiva clear 09/26/2017 None Full Exam - General 1994 Eyes conjunctiva /eyelids Overall: cornea clear 09/26/2017 None Full Exam - General 1994 Eyes conjunctiva /eyelids Overall: eyelids normal 09/26/2017 None Full Exam - General 1994 Eyes pupils and irises Overall: pupils equal, round, reactive to light and accomodation 09/26/2017 None Full Exam - General 1994 Ears/Nose/Throat otoscopic exam Overall: external auditory canals clear 09/26/2017 None Full Exam - General 1994 Ears/Nose/Throat otoscopic exam Overall: tympanic membranes clear 09/26/2017 None Full Exam - General 1994 Ears/Nose/Throat lips/teeth/gingiva Overall: benign lips 09/26/2017 None Full Exam - General 1994 Ears/Nose/Throat lips/teeth/gingiva Teeth: wears dentures 09/26/2017 None Full Exam - General 1994 Ears/Nose/Throat oral cavity/pharynx/larynx Overall: oral mucosa clear 09/26/2017 None Full Exam - General 1994 Respiratory auscultation Overall: breath sounds clear bilaterally 09/26/2017 None Full Exam - General 1994 Respiratory respiratory effort/rhythm Overall: no retractions 09/26/2017 None Full Exam - General 1994 Respiratory respiratory effort/rhythm Overall: normal rate 09/26/2017 None Full Exam - General 1994 Cardiovascular extremities Edema present: pitting 09/26/2017 None Full Exam - General 1994 Cardiovascular extremities Edema present: severity 1+ - 4 +: trace ankles 09/26/2017 None Full Exam - General 1994 Cardiovascular extremities Edema present: bilateral 09/26/2017 None Full Exam - General 1994 Cardiovascular auscultation of heart Overall: regular rate 09/26/2017 None Full Exam - General 1994 Cardiovascular auscultation of heart Overall: normal heart sounds 09/26/2017 None Full Exam - General 1994 Abdomen abdominal exam Overall: no tenderness 09/26/2017 None Full Exam - General 1994 Abdomen abdominal exam Overall: normal bowel sounds 09/26/2017 None Full Exam - General 1994 Lymphatic neck nodes Overall: anterior cervical chain benign 09/26/2017 None Full Exam - General 1994 Lymphatic neck nodes Overall: posterior cervical chain benign 09/26/2017 None Full Exam - General 1994 Psychiatric orientation/consciousness Overall: oriented to person, place and time 09/26/2017 None Full Exam - General 1994 Constitutional general appearance Overall: well developed 09/26/2017 None Full Exam - General 1994 Constitutional general appearance Overall: in no acute distress 09/26/2017 None Full Exam - General 1994 Constitutional general appearance Overall: well nourished 09/26/2017 None Full Exam - General 1994 Neurologic cranial nerves Overall: crainial nerves 2 - 12 grossly intact 09/26/2017 None Full Exam - General 1994 Psychiatric mood and affect Overall: normal mood and affect 09/26/2017 None Full Exam - General 1994 Constitutional general appearance Overall: well developed 08/16/2017 None Full Exam - General 1994 Constitutional general appearance Overall: in no acute distress 08/16/2017 None Full Exam - General 1994 Constitutional general appearance Overall: well nourished 08/16/2017 None Full Exam - General 1994 Eyes conjunctiva /eyelids Overall: conjunctiva clear 08/16/2017 None Full Exam - General 1994 Eyes conjunctiva /eyelids Overall: cornea clear 08/16/2017 None Full Exam - General 1994 Eyes conjunctiva /eyelids Overall: eyelids normal 08/16/2017 None Full Exam - General 1994 Ears/Nose/Throat lips/teeth/gingiva Overall: benign lips 08/16/2017 None Full Exam - General 1994 Ears/Nose/Throat oral cavity/pharynx/larynx Overall: oral mucosa clear 08/16/2017 None Full Exam - General 1994 Respiratory respiratory effort/rhythm Overall: normal rate 08/16/2017 None Full Exam - General 1994 Respiratory respiratory effort/rhythm Overall: no retractions 08/16/2017 None Full Exam - General 1994 Respiratory auscultation Overall: breath sounds clear bilaterally 08/16/2017 None Full Exam - General 1994 Cardiovascular auscultation of heart Overall: normal heart sounds 08/16/2017 None Full Exam - General 1994 Cardiovascular auscultation of heart Overall: regular rate 08/16/2017 None Full Exam - General 1994 Abdomen abdominal exam Bowel sounds: hypoactive 08/16/2017 None Full Exam - General 1994 Abdomen abdominal exam Overall: no tenderness 08/16/2017 None Full Exam - General 1994 Musculoskeletal head and neck Overall: head atraumatic 08/16/2017 None Full Exam - General 1994 Neurologic cranial nerves Overall: crainial nerves 2 - 12 grossly intact 08/16/2017 None Full Exam - General 1994 Psychiatric orientation/consciousness Overall: oriented to person, place and time 08/16/2017 None Full Exam - General 1994 Psychiatric appearance Overall: well-groomed, good eye contact 08/16/2017 None Full Exam - General 1994 Psychiatric mood and affect Overall: normal mood and affect 08/16/2017 None Full Exam - General 1994 Constitutional general appearance Development: well developed 07/18/2017 None Full Exam - General 1994 Constitutional general appearance Development: appears stated age 1107/18/2017 None Full Exam - General 1994 Eyes conjunctiva /eyelids Overall: conjunctiva clear 07/18/2017 None Full Exam - General 1994 Eyes conjunctiva /eyelids Overall: cornea clear 07/18/2017 None Full Exam - General 1994 Eyes conjunctiva /eyelids Overall: eyelids normal 07/18/2017 None Full Exam - General 1994 Eyes pupils and irises Overall: pupils equal, round, reactive to light and accomodation 07/18/2017 None Full Exam - General 1994 Ears/Nose/Throat otoscopic exam Overall: external auditory canals clear 07/18/2017 None Full Exam - General 1994 Ears/Nose/Throat otoscopic exam Overall: tympanic membranes clear 07/18/2017 None Full Exam - General 1994 Ears/Nose/Throat lips/teeth/gingiva Overall: benign lips 07/18/2017 None Full Exam - General 1994 Ears/Nose/Throat lips/teeth/gingiva Teeth: wears dentures 07/18/2017 None Full Exam - General 1994 Ears/Nose/Throat oral cavity/pharynx/larynx Overall: oral mucosa clear 07/18/2017 None Full Exam - General 1994 Neck inspection of neck Overall: normal size 07/18/2017 None Full Exam - General 1994 Neck inspection of neck Overall: normal appearance 07/18/2017 None Full Exam - General 1994 Respiratory auscultation Overall: breath sounds clear bilaterally 07/18/2017 None Full Exam - General 1994 Respiratory respiratory effort/rhythm Overall: no retractions 07/18/2017 None Full Exam - General 1994 Respiratory respiratory effort/rhythm Overall: normal rate 07/18/2017 None Full Exam - General 1994 Cardiovascular extremities Edema present: pitting 07/18/2017 None Full Exam - General 1994 Cardiovascular extremities Edema present: severity 1+ - 4 +: trace ankles 07/18/2017 None Full Exam - General 1994 Cardiovascular extremities Edema present: bilateral 07/18/2017 None Full Exam - General 1994 Cardiovascular auscultation of heart Overall: regular rate 07/18/2017 None Full Exam - General 1994 Cardiovascular auscultation of heart Overall: normal heart sounds 07/18/2017 None Full Exam - General 1994 Abdomen abdominal exam Overall: no tenderness 07/18/2017 None Full Exam - General 1994 Abdomen abdominal exam Overall: normal bowel sounds 07/18/2017 None Full Exam - General 1994 Lymphatic neck nodes Overall: anterior cervical chain benign 07/18/2017 None Full Exam - General 1994 Lymphatic neck nodes Overall: posterior cervical chain benign 07/18/2017 None Full Exam - General 1994 Psychiatric orientation/consciousness Overall: oriented to person, place and time 07/18/2017 None Full Exam - General 1994 Constitutional general appearance Development: well developed 05/16/2017 None Full Exam - General 1994 Constitutional general appearance Development: appears stated age 0905/16/2017 None Full Exam - General 1994 Eyes conjunctiva /eyelids Overall: conjunctiva clear 05/16/2017 None Full Exam - General 1994 Eyes conjunctiva /eyelids Overall: cornea clear 05/16/2017 None Full Exam - General 1994 Eyes conjunctiva /eyelids Overall: eyelids normal 05/16/2017 None Full Exam - General 1994 Eyes pupils and irises Overall: pupils equal, round, reactive to light and accomodation 05/16/2017 None Full Exam - General 1994 Ears/Nose/Throat otoscopic exam Overall: external auditory canals clear 05/16/2017 None Full Exam - General 1994 Ears/Nose/Throat otoscopic exam Overall: tympanic membranes clear 05/16/2017 None Full Exam - General 1994 Ears/Nose/Throat lips/teeth/gingiva Overall: benign lips 05/16/2017 None Full Exam - General 1994 Ears/Nose/Throat lips/teeth/gingiva Teeth: wears dentures 05/16/2017 None Full Exam - General 1994 Ears/Nose/Throat oral cavity/pharynx/larynx Overall: oral mucosa clear 05/16/2017 None Full Exam - General 1994 Neck inspection of neck Overall: normal size 05/16/2017 None Full Exam - General 1994 Neck inspection of neck Overall: normal appearance 05/16/2017 None Full Exam - General 1994 Respiratory auscultation Overall: breath sounds clear bilaterally 05/16/2017 None Full Exam - General 1994 Respiratory respiratory effort/rhythm Overall: no retractions 05/16/2017 None Full Exam - General 1994 Respiratory respiratory effort/rhythm Overall: normal rate 05/16/2017 None Full Exam - General 1994 Cardiovascular auscultation of heart Overall: regular rate 05/16/2017 None Full Exam - General 1994 Cardiovascular auscultation of heart Overall: normal heart sounds 05/16/2017 None Full Exam - General 1994 Abdomen abdominal exam Overall: no tenderness 05/16/2017 None Full Exam - General 1994 Abdomen abdominal exam Overall: normal bowel sounds 05/16/2017 None Full Exam - General 1994 Lymphatic neck nodes Overall: anterior cervical chain benign 05/16/2017 None Full Exam - General 1994 Lymphatic neck nodes Overall: posterior cervical chain benign 05/16/2017 None Full Exam - General 1994 Psychiatric orientation/consciousness Overall: oriented to person, place and time 05/16/2017 None Full Exam - General 1994 Cardiovascular extremities Edema present: pitting 05/16/2017 None Full Exam - General 1994 Cardiovascular extremities Edema present: bilateral 05/16/2017 None Full Exam - General 1994 Cardiovascular extremities Edema present: severity 1+ - 4 +: trace ankles 05/16/2017 None Full Exam - General 1994 Constitutional general appearance Development: well developed 03/14/2017 None Full Exam - General 1994 Constitutional general appearance Development: appears stated age 0703/14/2017 None Full Exam - General 1994 Eyes conjunctiva /eyelids Overall: conjunctiva clear 03/14/2017 None Full Exam - General 1994 Eyes conjunctiva /eyelids Overall: cornea clear 03/14/2017 None Full Exam - General 1994 Eyes conjunctiva /eyelids Overall: eyelids normal 03/14/2017 None Full Exam - General 1994 Eyes pupils and irises Overall: pupils equal, round, reactive to light and accomodation 03/14/2017 None Full Exam - General 1994 Ears/Nose/Throat otoscopic exam Overall: external auditory canals clear 03/14/2017 None Full Exam - General 1994 Ears/Nose/Throat otoscopic exam Overall: tympanic membranes clear 03/14/2017 None Full Exam - General 1994 Ears/Nose/Throat lips/teeth/gingiva Overall: benign lips 03/14/2017 None Full Exam - General 1994 Ears/Nose/Throat lips/teeth/gingiva Teeth: wears dentures 03/14/2017 None Full Exam - General 1994 Ears/Nose/Throat oral cavity/pharynx/larynx Overall: oral mucosa clear 03/14/2017 None Full Exam - General 1994 Neck inspection of neck Overall: normal size 03/14/2017 None Full Exam - General 1994 Neck inspection of neck Overall: normal appearance 03/14/2017 None Full Exam - General 1994 Respiratory auscultation Overall: breath sounds clear bilaterally 03/14/2017 None Full Exam - General 1994 Respiratory respiratory effort/rhythm Overall: no retractions 03/14/2017 None Full Exam - General 1994 Respiratory respiratory effort/rhythm Overall: normal rate 03/14/2017 None Full Exam - General 1994 Cardiovascular auscultation of heart Overall: regular rate 03/14/2017 None Full Exam - General 1994 Cardiovascular auscultation of heart Overall: normal heart sounds 03/14/2017 None Full Exam - General 1994 Abdomen abdominal exam Overall: no tenderness 03/14/2017 None Full Exam - General 1994 Abdomen abdominal exam Overall: normal bowel sounds 03/14/2017 None Full Exam - General 1994 Lymphatic neck nodes Overall: anterior cervical chain benign 03/14/2017 None Full Exam - General 1994 Lymphatic neck nodes Overall: posterior cervical chain benign 03/14/2017 None Full Exam - General 1994 Psychiatric orientation/consciousness Overall: oriented to person, place and time 03/14/2017 None Full Exam - General 1994 Constitutional general appearance Development: well developed 01/12/2017 None Full Exam - General 1994 Constitutional general appearance Development: appears stated age 0501/12/2017 None Full Exam - General 1994 Eyes conjunctiva /eyelids Overall: conjunctiva clear 01/12/2017 None Full Exam - General 1994 Eyes conjunctiva /eyelids Overall: cornea clear 01/12/2017 None Full Exam - General 1994 Eyes conjunctiva /eyelids Overall: eyelids normal 01/12/2017 None Full Exam - General 1994 Eyes pupils and irises Overall: pupils equal, round, reactive to light and accomodation 01/12/2017 None Full Exam - General 1994 Ears/Nose/Throat otoscopic exam Overall: external auditory canals clear 01/12/2017 None Full Exam - General 1994 Ears/Nose/Throat otoscopic exam Overall: tympanic membranes clear 01/12/2017 None Full Exam - General 1994 Ears/Nose/Throat lips/teeth/gingiva Overall: benign lips 01/12/2017 None Full Exam - General 1994 Ears/Nose/Throat lips/teeth/gingiva Overall: normal dentition 01/12/2017 None Full Exam - General 1994 Ears/Nose/Throat oral cavity/pharynx/larynx Posterior Pharynx: clear post nasal drainage 01/12/2017 None Full Exam - General 1994 Neck inspection of neck Overall: normal size 01/12/2017 None Full Exam - General 1994 Neck inspection of neck Overall: normal appearance 01/12/2017 None Full Exam - General 1994 Respiratory respiratory effort/rhythm Overall: no retractions 01/12/2017 None Full Exam - General 1994 Respiratory respiratory effort/rhythm Overall: normal rate 01/12/2017 None Full Exam - General 1994 Ears/Nose/Throat lips/teeth/gingiva Teeth: wears dentures 01/12/2017 None Full Exam - General 1994 Ears/Nose/Throat oral cavity/pharynx/larynx Overall: oral mucosa clear 01/12/2017 None Full Exam - General 1994 Cardiovascular auscultation of heart Overall: regular rate 01/12/2017 None Full Exam - General 1994 Cardiovascular auscultation of heart Overall: normal heart sounds 01/12/2017 None Full Exam - General 1994 Abdomen abdominal exam Overall: no tenderness 01/12/2017 None Full Exam - General 1994 Abdomen abdominal exam Overall: normal bowel sounds 01/12/2017 None Full Exam - General 1994 Lymphatic neck nodes Overall: anterior cervical chain benign 01/12/2017 None Full Exam - General 1994 Lymphatic neck nodes Overall: posterior cervical chain benign 01/12/2017 None Full Exam - General 1994 Psychiatric orientation/consciousness Overall: oriented to person, place and time 01/12/2017 None Full Exam - General 1994 Respiratory auscultation Diffuse: rhonchi 01/12/2017 None Full Exam - General 1994 Respiratory auscultation Diffuse: expiratory wheezes 01/12/2017 None Full Exam - General 1994 Constitutional general appearance Development: well developed 12/12/2016 None Full Exam - General 1994 Constitutional general appearance Development: appears stated age 0412/12/2016 None Full Exam - General 1994 Eyes conjunctiva /eyelids Overall: conjunctiva clear 12/12/2016 None Full Exam - General 1994 Eyes conjunctiva /eyelids Overall: cornea clear 12/12/2016 None Full Exam - General 1994 Eyes conjunctiva /eyelids Overall: eyelids normal 12/12/2016 None Full Exam - General 1994 Eyes pupils and irises Overall: pupils equal, round, reactive to light and accomodation 12/12/2016 None Full Exam - General 1994 Ears/Nose/Throat otoscopic exam Overall: external auditory canals clear 12/12/2016 None Full Exam - General 1994 Ears/Nose/Throat otoscopic exam Overall: tympanic membranes clear 12/12/2016 None Full Exam - General 1994 Ears/Nose/Throat lips/teeth/gingiva Overall: benign lips 12/12/2016 None Full Exam - General 1994 Ears/Nose/Throat lips/teeth/gingiva Teeth: wears dentures 12/12/2016 None Full Exam - General 1994 Ears/Nose/Throat oral cavity/pharynx/larynx Overall: oral mucosa clear 12/12/2016 None Full Exam - General 1994 Neck inspection of neck Overall: normal size 12/12/2016 None Full Exam - General 1994 Neck inspection of neck Overall: normal appearance 12/12/2016 None Full Exam - General 1994 Respiratory auscultation Overall: breath sounds clear bilaterally 12/12/2016 None Full Exam - General 1994 Respiratory respiratory effort/rhythm Overall: no retractions 12/12/2016 None Full Exam - General 1994 Respiratory respiratory effort/rhythm Overall: normal rate 12/12/2016 None Full Exam - General 1994 Cardiovascular auscultation of heart Overall: regular rate 12/12/2016 None Full Exam - General 1994 Cardiovascular auscultation of heart Overall: normal heart sounds 12/12/2016 None Full Exam - General 1994 Abdomen abdominal exam Overall: no tenderness 12/12/2016 None Full Exam - General 1994 Abdomen abdominal exam Overall: normal bowel sounds 12/12/2016 None Full Exam - General 1994 Lymphatic neck nodes Overall: anterior cervical chain benign 12/12/2016 None Full Exam - General 1994 Lymphatic neck nodes Overall: posterior cervical chain benign 12/12/2016 None Full Exam - General 1994 Psychiatric orientation/consciousness Overall: oriented to person, place and time 12/12/2016 None Full Exam - General 1994 Constitutional general appearance Development: well developed 12/08/2016 None Full Exam - General 1994 Constitutional general appearance Development: appears stated age 0412/08/2016 None Full Exam - General 1994 Eyes conjunctiva /eyelids Overall: conjunctiva clear 12/08/2016 None Full Exam - General 1994 Eyes conjunctiva /eyelids Overall: cornea clear 12/08/2016 None Full Exam - General 1994 Eyes conjunctiva /eyelids Overall: eyelids normal 12/08/2016 None Full Exam - General 1994 Eyes pupils and irises Overall: pupils equal, round, reactive to light and accomodation 12/08/2016 None Full Exam - General 1994 Ears/Nose/Throat otoscopic exam Overall: external auditory canals clear 12/08/2016 None Full Exam - General 1994 Ears/Nose/Throat otoscopic exam Overall: tympanic membranes clear 12/08/2016 None Full Exam - General 1994 Ears/Nose/Throat lips/teeth/gingiva Overall: benign lips 12/08/2016 None Full Exam - General 1994 Ears/Nose/Throat lips/teeth/gingiva Teeth: wears dentures 12/08/2016 None Full Exam - General 1994 Ears/Nose/Throat oral cavity/pharynx/larynx Overall: oral mucosa clear 12/08/2016 None Full Exam - General 1994 Neck inspection of neck Overall: normal size 12/08/2016 None Full Exam - General 1994 Neck inspection of neck Overall: normal appearance 12/08/2016 None Full Exam - General 1994 Respiratory auscultation Overall: breath sounds clear bilaterally 12/08/2016 None Full Exam - General 1994 Respiratory respiratory effort/rhythm Overall: no retractions 12/08/2016 None Full Exam - General 1994 Respiratory respiratory effort/rhythm Overall: normal rate 12/08/2016 None Full Exam - General 1994 Cardiovascular auscultation of heart Overall: regular rate 12/08/2016 None Full Exam - General 1994 Cardiovascular auscultation of heart Overall: normal heart sounds 12/08/2016 None Full Exam - General 1994 Abdomen abdominal exam Overall: no tenderness 12/08/2016 None Full Exam - General 1994 Abdomen abdominal exam Overall: normal bowel sounds 12/08/2016 None Full Exam - General 1994 Lymphatic neck nodes Overall: anterior cervical chain benign 12/08/2016 None Full Exam - General 1994 Lymphatic neck nodes Overall: posterior cervical chain benign 12/08/2016 None Full Exam - General 1994 Psychiatric orientation/consciousness Overall: oriented to person, place and time 12/08/2016 None Full Exam - General 1994 Constitutional general appearance Development: well developed 11/03/2016 None Full Exam - General 1994 Constitutional general appearance Development: appears stated age 0311/03/2016 None Full Exam - General 1994 Constitutional general appearance Hygiene/Attention to Grooming: good hygiene 11/03/2016 None Full Exam - General 1994 Eyes conjunctiva /eyelids Overall: conjunctiva clear 11/03/2016 None Full Exam - General 1994 Eyes conjunctiva /eyelids Overall: cornea clear 11/03/2016 None Full Exam - General 1994 Eyes pupils and irises Overall: pupils equal, round, reactive to light and accomodation 11/03/2016 None Full Exam - General 1994 Ears/Nose/Throat otoscopic exam Overall: external auditory canals clear 11/03/2016 None Full Exam - General 1994 Ears/Nose/Throat otoscopic exam Overall: tympanic membranes clear 11/03/2016 None Full Exam - General 1995 Ears/Nose/Throat lips/teeth/gingiva Overall: benign lips 11/03/2016 None Full Exam - General 1994 Ears/Nose/Throat lips/teeth/gingiva Overall: normal dentition 11/03/2016 None Full Exam - General 1995 Ears/Nose/Throat oral cavity/pharynx/larynx Overall: oral mucosa clear 11/03/2016 None Full Exam - General 1994 Ears/Nose/Throat oral cavity/pharynx/larynx Overall: oropharyngeal mucosa clear 11/03/2016 None Full Exam - General 1994 Ears/Nose/Throat oral cavity/pharynx/larynx Overall: hypopharynx benign 11/03/2016 None Full Exam - General 1994 Ears/Nose/Throat oral cavity/pharynx/larynx Overall: no masses 11/03/2016 None Full Exam - General 1994 Respiratory auscultation Overall: breath sounds clear bilaterally 11/03/2016 None Full Exam - General 1994 Respiratory respiratory effort/rhythm Overall: no retractions 11/03/2016 None Full Exam - General 1994 Respiratory respiratory effort/rhythm Overall: normal rate 11/03/2016 None Full Exam - General 1994 Cardiovascular extremities Overall: no clubbing 11/03/2016 None Full Exam - General 1994 Cardiovascular auscultation of heart Overall: regular rate 11/03/2016 None Full Exam - General 1994 Cardiovascular auscultation of heart Overall: normal heart sounds 11/03/2016 None Full Exam - General 1994 Abdomen abdominal exam Overall: no tenderness 11/03/2016 None Full Exam - General 1994 Abdomen abdominal exam Overall: normal bowel sounds 11/03/2016 None Full Exam - General 1994 Lymphatic neck nodes Overall: anterior cervical chain benign 11/03/2016 None Full Exam - General 1994 Lymphatic neck nodes Overall: posterior cervical chain benign 11/03/2016 None Full Exam - General 1994 Neurologic deep tendon reflexes Overall: deep tendon reflexes intact 11/03/2016 None Full Exam - General 1994 Neurologic cranial nerves Overall: crainial nerves 2 - 12 grossly intact 11/03/2016 None Full Exam - General 1994 Psychiatric orientation/consciousness Overall: oriented to person, place and time 11/03/2016 None Full Exam - General 1994 Psychiatric mood and affect Overall: normal mood and affect 11/03/2016 None Full Exam - General 1994 Integument inspection of skin Location: face 11/03/2016 None Full Exam - General 1994 Integument inspection of skin Dermatitis: erythema 11/03/2016 None Full Exam - General 1994 Constitutional general appearance Development: well developed 10/06/2016 None Full Exam - General 1994 Constitutional general appearance Development: appears stated age 0210/06/2016 None Full Exam - General 1994 Constitutional general appearance Hygiene/Attention to Grooming: good hygiene 10/06/2016 None Full Exam - General 1994 Eyes conjunctiva /eyelids Overall: conjunctiva clear 10/06/2016 None Full Exam - General 1994 Eyes conjunctiva /eyelids Overall: cornea clear 10/06/2016 None Full Exam - General 1994 Eyes pupils and irises Overall: pupils equal, round, reactive to light and accomodation 10/06/2016 None Full Exam - General 1994 Ears/Nose/Throat otoscopic exam Overall: external auditory canals clear 10/06/2016 None Full Exam - General 1995 Ears/Nose/Throat otoscopic exam Overall: tympanic membranes clear 10/06/2016 None Full Exam - General 1994 Ears/Nose/Throat lips/teeth/gingiva Overall: benign lips 10/06/2016 None Full Exam - General 1994 Ears/Nose/Throat lips/teeth/gingiva Overall: normal dentition 10/06/2016 None Full Exam - General 1995 Ears/Nose/Throat oral cavity/pharynx/larynx Overall: oral mucosa clear 10/06/2016 None Full Exam - General 1995 Ears/Nose/Throat oral cavity/pharynx/larynx Overall: oropharyngeal mucosa clear 10/06/2016 None Full Exam - General 1995 Ears/Nose/Throat oral cavity/pharynx/larynx Overall: hypopharynx benign 10/06/2016 None Full Exam - General 1994 Ears/Nose/Throat oral cavity/pharynx/larynx Overall: no masses 10/06/2016 None Full Exam - General 1994 Respiratory auscultation Overall: breath sounds clear bilaterally 10/06/2016 None Full Exam - General 1994 Respiratory respiratory effort/rhythm Overall: no retractions 10/06/2016 None Full Exam - General 1994 Respiratory respiratory effort/rhythm Overall: normal rate 10/06/2016 None Full Exam - General 1994 Cardiovascular extremities Overall: no clubbing 10/06/2016 None Full Exam - General 1994 Cardiovascular auscultation of heart Overall: regular rate 10/06/2016 None Full Exam - General 1994 Cardiovascular auscultation of heart Overall: normal heart sounds 10/06/2016 None Full Exam - General 1994 Abdomen abdominal exam Overall: no tenderness 10/06/2016 None Full Exam - General 1994 Abdomen abdominal exam Overall: normal bowel sounds 10/06/2016 None Full Exam - General 1994 Lymphatic neck nodes Overall: anterior cervical chain benign 10/06/2016 None Full Exam - General 1994 Lymphatic neck nodes Overall: posterior cervical chain benign 10/06/2016 None Full Exam - General 1994 Integument inspection of skin Overall: few scattered moles, no gross abnormalities 10/06/2016 None Full Exam - General 1994 Neurologic deep tendon reflexes Overall: deep tendon reflexes intact 10/06/2016 None Full Exam - General 1994 Neurologic cranial nerves Overall: crainial nerves 2 - 12 grossly intact 10/06/2016 None Full Exam - General 1994 Psychiatric orientation/consciousness Overall: oriented to person, place and time 10/06/2016 None Full Exam - General 1994 Psychiatric mood and affect Overall: normal mood and affect 10/06/2016 None Full Exam - General 1994 Constitutional general appearance Development: well developed 09/06/2016 None Full Exam - General 1994 Constitutional general appearance Development: appears stated age 0109/06/2016 None Full Exam - General 1994 Constitutional general appearance Hygiene/Attention to Grooming: good hygiene 09/06/2016 None Full Exam - General 1994 Eyes conjunctiva /eyelids Overall: conjunctiva clear 09/06/2016 None Full Exam - General 1994 Eyes conjunctiva /eyelids Overall: cornea clear 09/06/2016 None Full Exam - General 1994 Eyes pupils and irises Overall: pupils equal, round, reactive to light and accomodation 09/06/2016 None Full Exam - General 1994 Ears/Nose/Throat otoscopic exam Overall: external auditory canals clear 09/06/2016 None Full Exam - General 1994 Ears/Nose/Throat otoscopic exam Overall: tympanic membranes clear 09/06/2016 None Full Exam - General 1994 Ears/Nose/Throat lips/teeth/gingiva Overall: benign lips 09/06/2016 None Full Exam - General 1994 Ears/Nose/Throat lips/teeth/gingiva Overall: normal dentition 09/06/2016 None Full Exam - General 1994 Ears/Nose/Throat oral cavity/pharynx/larynx Overall: oral mucosa clear 09/06/2016 None Full Exam - General 1994 Ears/Nose/Throat oral cavity/pharynx/larynx Overall: oropharyngeal mucosa clear 09/06/2016 None Full Exam - General 1994 Ears/Nose/Throat oral cavity/pharynx/larynx Overall: hypopharynx benign 09/06/2016 None Full Exam - General 1994 Ears/Nose/Throat oral cavity/pharynx/larynx Overall: no masses 09/06/2016 None Full Exam - General 1994 Respiratory auscultation Overall: breath sounds clear bilaterally 09/06/2016 None Full Exam - General 1994 Respiratory respiratory effort/rhythm Overall: no retractions 09/06/2016 None Full Exam - General 1994 Respiratory respiratory effort/rhythm Overall: normal rate 09/06/2016 None Full Exam - General 1994 Cardiovascular extremities Overall: no clubbing 09/06/2016 None Full Exam - General 1994 Cardiovascular auscultation of heart Overall: regular rate 09/06/2016 None Full Exam - General 1994 Cardiovascular auscultation of heart Overall: normal heart sounds 09/06/2016 None Full Exam - General 1994 Abdomen abdominal exam Overall: no tenderness 09/06/2016 None Full Exam - General 1994 Abdomen abdominal exam Overall: normal bowel sounds 09/06/2016 None Full Exam - General 1994 Lymphatic neck nodes Overall: anterior cervical chain benign 09/06/2016 None Full Exam - General 1994 Lymphatic neck nodes Overall: posterior cervical chain benign 09/06/2016 None Full Exam - General 1994 Integument inspection of skin Overall: few scattered moles, no gross abnormalities 09/06/2016 None Full Exam - General 1994 Neurologic deep tendon reflexes Overall: deep tendon reflexes intact 09/06/2016 None Full Exam - General 1994 Neurologic cranial nerves Overall: crainial nerves 2 - 12 grossly intact 09/06/2016 None Full Exam - General 1994 Psychiatric orientation/consciousness Overall: oriented to person, place and time 09/06/2016 None Full Exam - General 1994 Psychiatric mood and affect Overall: normal mood and affect 09/06/2016 None Full Exam - General 1994 Constitutional general appearance Development: well developed 08/23/2016 None Full Exam - General 1994 Constitutional general appearance Development: appears stated age 1208/23/2016 None Full Exam - General 1994 Constitutional general appearance Hygiene/Attention to Grooming: good hygiene 08/23/2016 None Full Exam - General 1994 Eyes conjunctiva /eyelids Overall: conjunctiva clear 08/23/2016 None Full Exam - General 1994 Eyes conjunctiva /eyelids Overall: cornea clear 08/23/2016 None Full Exam - General 1994 Eyes pupils and irises Overall: pupils equal, round, reactive to light and accomodation 08/23/2016 None Full Exam - General 1994 Ears/Nose/Throat otoscopic exam Overall: external auditory canals clear 08/23/2016 None Full Exam - General 1994 Ears/Nose/Throat otoscopic exam Overall: tympanic membranes clear 08/23/2016 None Full Exam - General 1994 Ears/Nose/Throat lips/teeth/gingiva Overall: benign lips 08/23/2016 None Full Exam - General 1994 Ears/Nose/Throat lips/teeth/gingiva Overall: normal dentition 08/23/2016 None Full Exam - General 1994 Ears/Nose/Throat oral cavity/pharynx/larynx Overall: oral mucosa clear 08/23/2016 None Full Exam - General 1994 Ears/Nose/Throat oral cavity/pharynx/larynx Overall: oropharyngeal mucosa clear 08/23/2016 None Full Exam - General 1994 Ears/Nose/Throat oral cavity/pharynx/larynx Overall: hypopharynx benign 08/23/2016 None Full Exam - General 1994 Ears/Nose/Throat oral cavity/pharynx/larynx Overall: no masses 08/23/2016 None Full Exam - General 1994 Respiratory auscultation Overall: breath sounds clear bilaterally 08/23/2016 None Full Exam - General 1994 Respiratory respiratory effort/rhythm Overall: no retractions 08/23/2016 None Full Exam - General 1994 Respiratory respiratory effort/rhythm Overall: normal rate 08/23/2016 None Full Exam - General 1994 Cardiovascular extremities Overall: no clubbing 08/23/2016 None Full Exam - General 1994 Cardiovascular auscultation of heart Overall: regular rate 08/23/2016 None Full Exam - General 1994 Cardiovascular auscultation of heart Overall: normal heart sounds 08/23/2016 None Full Exam - General 1994 Abdomen abdominal exam Overall: no tenderness 08/23/2016 None Full Exam - General 1994 Abdomen abdominal exam Overall: normal bowel sounds 08/23/2016 None Full Exam - General 1994 Neurologic deep tendon reflexes Overall: deep tendon reflexes intact 08/23/2016 None Full Exam - General 1994 Neurologic cranial nerves Overall: crainial nerves 2 - 12 grossly intact 08/23/2016 None Full Exam - General 1994 Psychiatric orientation/consciousness Overall: oriented to person, place and time 08/23/2016 None Full Exam - General 1994 Psychiatric mood and affect Overall: normal mood and affect 08/23/2016 None Full Exam - General 1994 Lymphatic neck nodes Overall: anterior cervical chain benign 08/23/2016 None Full Exam - General 1994 Lymphatic neck nodes Overall: posterior cervical chain benign 08/23/2016 None Full Exam - General 1994 Integument inspection of skin Overall: few scattered moles, no gross abnormalities 08/23/2016 None Full Exam - General 1994 Constitutional general appearance Development: appears stated age 0804/26/2016 None Full Exam - General 1994 Constitutional general appearance Development: well developed 04/26/2016 None Full Exam - General 1994 Constitutional general appearance Hygiene/Attention to Grooming: good hygiene 04/26/2016 None Full Exam - General 1994 Eyes conjunctiva /eyelids Overall: conjunctiva clear 04/26/2016 None Full Exam - General 1994 Eyes conjunctiva /eyelids Overall: cornea clear 04/26/2016 None Full Exam - General 1994 Eyes pupils and irises Overall: pupils equal, round, reactive to light and accomodation 04/26/2016 None Full Exam - General 1994 Ears/Nose/Throat otoscopic exam Overall: external auditory canals clear 04/26/2016 None Full Exam - General 1994 Ears/Nose/Throat otoscopic exam Overall: tympanic membranes clear 04/26/2016 None Full Exam - General 1994 Ears/Nose/Throat lips/teeth/gingiva Overall: benign lips 04/26/2016 None Full Exam - General 1994 Ears/Nose/Throat lips/teeth/gingiva Overall: normal dentition 04/26/2016 None Full Exam - General 1994 Ears/Nose/Throat oral cavity/pharynx/larynx Overall: hypopharynx benign 04/26/2016 None Full Exam - General 1994 Ears/Nose/Throat oral cavity/pharynx/larynx Overall: no masses 04/26/2016 None Full Exam - General 1994 Ears/Nose/Throat oral cavity/pharynx/larynx Overall: oral mucosa clear 04/26/2016 None Full Exam - General 1994 Ears/Nose/Throat oral cavity/pharynx/larynx Overall: oropharyngeal mucosa clear 04/26/2016 None Full Exam - General 1994 Respiratory auscultation Overall: breath sounds clear bilaterally 04/26/2016 None Full Exam - General 1994 Respiratory respiratory effort/rhythm Overall: no retractions 04/26/2016 None Full Exam - General 1994 Respiratory respiratory effort/rhythm Overall: normal rate 04/26/2016 None Full Exam - General 1994 Cardiovascular extremities Overall: no clubbing 04/26/2016 None Full Exam - General 1994 Cardiovascular auscultation of heart Overall: normal heart sounds 04/26/2016 None Full Exam - General 1994 Cardiovascular auscultation of heart Overall: regular rate 04/26/2016 None Full Exam - General 1994 Abdomen abdominal exam Overall: no tenderness 04/26/2016 None Full Exam - General 1994 Abdomen abdominal exam Overall: normal bowel sounds 04/26/2016 None Full Exam - General 1994 Integument inspection of skin Overall: few scattered moles, no gross abnormalities 04/26/2016 None Full Exam - General 1994 Neurologic deep tendon reflexes Overall: deep tendon reflexes intact 04/26/2016 None Full Exam - General 1994 Neurologic cranial nerves Overall: crainial nerves 2 - 12 grossly intact 04/26/2016 None Full Exam - General 1994 Psychiatric orientation/consciousness Overall: oriented to person, place and time 04/26/2016 None Full Exam - General 1994 Psychiatric mood and affect Overall: normal mood and affect 04/26/2016 None Full Exam - General 1994 Eyes conjunctiva /eyelids Eyelid: chalazion 04/26/2016 None Full Exam - General 1994 Eyes conjunctiva /eyelids Eyelid: erythema 04/26/2016 None Full Exam - General 1994 Abdomen abdominal exam Skin: presence of a scar 04/26/2016 multiple scars across abdomen down middle of abodmen, around umbilicus, and a puckered scar in right mid abdomen Procedures Procedure Codes Date THER/PROPH/DIAG INJ SC/IM CPT-4: 79949 09/26/2017 VITAMIN B12 INJECTION CPT-4: J3420 09/26/2017 THER/PROPH/DIAG INJ SC/IM CPT-4: 53346 08/10/2017 VITAMIN B12 INJECTION CPT-4: J3420 08/10/2017 THER/PROPH/DIAG INJ SC/IM CPT-4: 74354 07/18/2017 VITAMIN B12 INJECTION CPT-4: J3420 07/18/2017 THER/PROPH/DIAG INJ SC/IM CPT-4: 98891 05/16/2017 VITAMIN B12 INJECTION CPT-4: J3420 05/16/2017 THER/PROPH/DIAG INJ SC/IM CPT-4: 93947 03/14/2017 VITAMIN B12 INJECTION CPT-4: J3420 03/14/2017 TRIAMCINOLONE ACET INJ NOS CPT-4: J3301 01/12/2017 ROCEPHIN, PER 250 MG CPT-4: J0696 01/12/2017 VITAMIN B12 INJECTION CPT-4: J3420 01/12/2017 THER/PROPH/DIAG INJ SC/IM CPT-4: 41222 01/12/2017 PPPS, SUBSEQ VISIT CPT -4: G0439 12/12/2016 PNEUMOCOCCAL VACC [address]: 75340763 CPT-4: 52027 12/12/2016 ADMIN PNEUMOCOCCAL VACCINE SNOMED CT: 34346900 CPT-4: G0009 12/12/2016 THER/PROPH/DIAG INJ SC/IM CPT-4: 02498 10/27/2016 VITAMIN B12 INJECTION CPT-4: J3420 10/27/2016 THER/PROPH/DIAG INJ SC/IM CPT-4: 17195 07/27/2016 VITAMIN B12 INJECTION CPT-4: J3420 07/27/2016 THER/PROPH/DIAG INJ SC/IM CPT-4: 92754 04/26/2016 VITAMIN B12 INJECTION CPT-4: J3420 04/26/2016 Vital Signs Date Vital 09/26/2017 Blood Pressure 1: 162/82 Code : 8480-6 BMI: 24.7 Code : 25706-7 Heart Rate 1 : 69 bpm Height: 5'7" SpO2: 99% Weight: 158 lbs 08/16/2017 Blood Pressure 1: 154/82 Code : 8480-6 BMI: 24.1 Code : 04834-4 Heart Rate 1 : 58 bpm Height: 5'7" SpO2: 96% Weight: 154 lbs 07/18/2017 Blood Pressure 1: 152/88 Code : 8480-6 BMI: 25.2 Code : 55506-7 Heart Rate 1 : 72 bpm Height: 5'7" SpO2: 98% Weight: 161 lbs 05/16/2017 Blood Pressure 1: 136/78 Code : 8480-6 BMI: 24.8 Code : 93250-9 Heart Rate 1 : 71 bpm Height: 5'7" SpO2: 96% Weight: 158 lbs 8 oz 03/14/2017 Blood Pressure 1: 142/74 Code : 8480-6 BMI: 23.8 Code : 76483-6 Heart Rate 1 : 69 bpm Height: 5'7" SpO2: 94% Weight: 152 lbs 01/12/2017 Blood Pressure 1: 156/90 Code : 8480-6 BMI: 23.4 Code : 92262-8 Heart Rate 1 : 90 bpm Height: 5'7" SpO2: 97% Temperature: 37.4 (C) / 99.3 (F) Weight: 149 lbs 8 oz 12/12/2016 Blood Pressure 1: 140/78 Code : 8480-6 BMI: 24.3 Code : 67221-4 Heart Rate 1 : 73 bpm Height: 5'7" SpO2: 96% Waist Measure (cm): 90 cm Weight: 155 lbs 12/08/2016 Blood Pressure 1: 148/84 Code : 8480-6 BMI: 24.3 Code : 73742-4 Heart Rate 1 : 80 bpm Height: 5'7" SpO2: 96% Weight: 155 lbs 11/03/2016 Blood Pressure 1: 156/84 Code : 8480-6 Blood Pressure 2: 155/94 Code: 8480-6 BMI: 24.3 Code: 08024-5 Heart Rate 1: 81 bpm Height: 5'7" SpO2: 98% Weight: 155 lbs 10/06/2016 Blood Pressure 1: 175/95 Code : 8480-6 Heart Rate 1: 77 bpm Respiratory Rate : 16 bpm SpO2: 98% Temperature: 36.4 (C) / 97.5 (F) Weight: 157 lbs 09/06/2016 Blood Pressure 1: 136/80 Code : 8480-6 BMI: 24.1 Code : 34502-7 Heart Rate 1 : 82 bpm Height: 5'8" SpO2: 97% Weight: 156 lbs 08/23/2016 Blood Pressure 1: 160/80 Code : 8480-6 BMI: 24.4 Code : 74899-0 Heart Rate 1 : 88 bpm Height: 5'8" SpO2: 95% Weight: 158 lbs 04/26/2016 Blood Pressure 1: 156/74 Code : 8480-6 BMI: 24.5 Code : 22792-1 Heart Rate 1 : 70 bpm Height: 5'8" SpO2: 97% Weight: 159 lbs Functional Status No Functional Status data History of Present Illness Symptom Name Status Result Effective Date Notes hypertension Quality primary hypertension 09/26/2017 None hypertension Onset and Resolution ongoing 09/26/2017 None hypertension Onset of Symptom during adulthood 09/26/2017 None hypertension Alleviating Factors medication 09/26/2017 None hypertension Pertinent Findings Denies dizziness 09/26/2017 None hypertension Pertinent Findings Denies dyspnea 09/26/2017 None hypertension Pertinent Findings edema 09/26/2017 in both ankles and feet pain Quality chronic 09/26/2017 None pain Quality intermittent 09/26/2017 None pain Onset and Resolution ongoing 09/26/2017 None pain Onset of Symptom years ago 09/26/2017 2006- he had colon surgery pain Alleviating Factors treatment medication 09/26/2017 (morphine ER) hypertension Blood Pressure Values patient checking blood pressure at home - did not bring in readings 09/26/2017 None hypertension Quality intermittent 09/26/2017 None pain Quality stable None gastroesophageal reflux Quality constant 08/16/2017 None gastroesophageal reflux Quality regurgitation of acid 08/16/2017 None gastroesophageal reflux Quality regurgitation of food 08/16/2017 None gastroesophageal reflux Quality regurgitation of bile 08/16/2017 None gastroesophageal reflux Quality sour brash 08/16/2017 None gastroesophageal reflux Quality worsening 08/16/2017 None gastroesophageal reflux Onset and Resolution gradual in onset 08/16/2017 None gastroesophageal reflux Onset and Resolution ongoing 08/16/2017 None gastroesophageal reflux Onset of Symptom _ months ago 08/16/2017 None gastroesophageal reflux Frequency of Episodes increasing 08/16/2017 None hypertension Quality primary hypertension 07/18/2017 None hypertension Onset and Resolution ongoing 07/18/2017 None hypertension Onset of Symptom during adulthood 07/18/2017 None hypertension Blood Pressure Values pt checking blood pressure - see scanned document 07/18/2017 None hypertension Alleviating Factors medication 07/18/2017 None hypertension Pertinent Findings Denies dizziness 07/18/2017 None hypertension Pertinent Findings Denies dyspnea 07/18/2017 None hypertension Pertinent Findings edema 07/18/2017 in both ankles pain Quality chronic 07/18/2017 None pain Onset and Resolution ongoing 07/18/2017 None pain Quality intermittent 07/18/2017 None pain Onset of Symptom years ago 07/18/2017 2006- he had colon surgery pain Alleviating Factors treatment medication 07/18/2017 (morphine ER) blood pressure followup Onset and Resolution ongoing 05/16/2017 None blood pressure followup Onset of Symptom during adulthood 05/16/2017 None blood pressure followup Blood Pressure Values pt checking blood pressure - see scanned document 05/16 None blood pressure followup Frequency of Episodes unchanged 05/16/2017 None blood pressure followup Timing of Episodes upon awakening 05/16/2017 None blood pressure followup Triggers no known associated factors 05/16/2017 None blood pressure followup Pertinent Findings Denies anxiety 05/16/2017 None blood pressure followup Pertinent Findings Denies dizziness 05/16/2017 None blood pressure followup Pertinent Findings Denies dyspnea 05/16/2017 from cold blood pressure followup Pertinent Findings edema 05/16/2017 None blood pressure followup Pertinent Findings Denies decreased energy 05/16/2017 None blood pressure followup Onset and Resolution ongoing 03/14/2017 None blood pressure followup Onset of Symptom during adulthood 03/14/2017 None blood pressure followup Blood Pressure Values pt checking blood pressure - see scanned document 03/14 None blood pressure followup Frequency of Episodes unchanged 03/14/2017 None blood pressure followup Timing of Episodes upon awakening 03/14/2017 None blood pressure followup Triggers no known associated factors 03/14/2017 None blood pressure followup Pertinent Findings Denies anxiety 03/14/2017 None blood pressure followup Pertinent Findings Denies dizziness 03/14/2017 None blood pressure followup Pertinent Findings dyspnea 03/14/2017 from cold blood pressure followup Pertinent Findings Denies edema 03/14/2017 None blood pressure followup Onset and Resolution ongoing 01/12/2017 None blood pressure followup Onset of Symptom during adulthood 01/12/2017 None blood pressure followup Blood Pressure Values pt checking blood pressure - see scanned document 01/12 None blood pressure followup Frequency of Episodes unchanged 01/12/2017 None blood pressure followup Timing of Episodes upon awakening 01/12/2017 None blood pressure followup Triggers no known associated factors 01/12/2017 None blood pressure followup Pertinent Findings Denies anxiety 01/12/2017 None blood pressure followup Pertinent Findings Denies dizziness 01/12/2017 None blood pressure followup Pertinent Findings dyspnea 01/12/2017 from cold blood pressure followup Pertinent Findings Denies edema 01/12/2017 None nasal allergies Location in both nares 01/12/2017 None nasal allergies Onset and Resolution sudden in onset 01/12/2017 None nasal allergies Pertinent Findings cough 01/12/2017 None nasal allergies Pertinent Findings fever 01/12/2017 None nasal allergies Pertinent Findings hoarseness 01/12/2017 None nasal allergies Pertinent Findings nasal obstruction 01/12/2017 None nasal allergies Pertinent Findings weight loss 01/12/2017 None cough Location in the lung 01/12/2017 None cough Quality acute None cough Quality intermittent 01/12/2017 None cough Onset and Resolution sudden in onset 01/12/2017 None cough Pertinent Findings chest discomfort 01/12/2017 None cough Pertinent Findings dyspnea 01/12/2017 None cough Pertinent Findings fever 01/12/2017 None cough Pertinent Findings hoarseness 01/12/2017 None cough Pertinent Findings muscle aches 01/12/2017 None cough Pertinent Findings nasal congestion 01/12/2017 None cough Pertinent Findings sputum production 01/12/2017 None cough Pertinent Findings post nasal drip 01/12/2017 None cough Pertinent Findings weakness 01/12/2017 None cough Pertinent Findings weight loss 01/12/2017 None Annual Medicare Wellness Exam Alcohol Use drinks 2-3 drinks per day 12/12/2016 None Annual Medicare Wellness Exam Aspirin Use no 12/12/2016 None Annual Medicare Wellness Exam Blood Glucose (self reported) don't know 12/12/2016 None Annual Medicare Wellness Exam Hemaglobin A-1C (self reported ) never checked 12/12/2016 None Annual Medicare Wellness Exam Blood Pressure (self reported ) high (140/90 or higher) 12/12/2016 None Annual Medicare Wellness Exam Cholesterol (self reported) desireable (below 200) 12/12/2016 None Annual Medicare Wellness Exam Exercise Habits does not exercise 12/12/2016 None Annual Medicare Wellness Exam Describe Your Health fair 12/12/2016 None Annual Medicare Wellness Exam Smoking and Tobacco Use non smoker 12/12/2016 None Annual Medicare Wellness Exam Depression (last 6 months) some of the time 12/12/2016 None Annual Medicare Wellness Exam Depression or Hopelessness some of the time 12/12/2016 None Annual Medicare Wellness Exam Handling Stress usually ravin effectively 12/12/2016 None Annual Medicare Wellness Exam Hours of Sleep 6-7 12/12/2016 None Annual Medicare Wellness Exam Interaction with Friends yes 12/12/2016 None Annual Medicare Wellness Exam Interests & Pleasure most of the time 12/12/2016 None Annual Medicare Wellness Exam Social & Emotional Support usually 12/12/2016 None Annual Medicare Wellness Exam Stress some of the time 12/12/2016 None Annual Medicare Wellness Exam Sun Exposure protects skin when outdoors: no 12/12/2016 None Annual Medicare Wellness Exam Motor Vehicle Safety always fastens seat belt: yes 12/12/2016 None Annual Medicare Wellness Exam Motor Vehicle Safety drives after drinking: sometimes 12/12/2016 None Annual Medicare Wellness Exam Motor Vehicle Safety rides with someone who has been drinking: no 12/12 None Annual Medicare Wellness Exam Life Satisfaction satisfied 12/12/2016 None Annual Medicare Wellness Exam Nutrition servings of fried food / high fat foods per day: 0-1 2016 None Annual Medicare Wellness Exam Nutrition servings of high fiber / whole grain per day: 1-2 12/12/2016 None Annual Medicare Wellness Exam Nutrition servings of vegetables / fruit per day: 1-2 12/12/2016 None blood pressure followup Onset and Resolution ongoing 12/08/2016 None blood pressure followup Onset of Symptom during adulthood 12/08/2016 None blood pressure followup Blood Pressure Values pt checking blood pressure - see scanned document 12/08 None blood pressure followup Frequency of Episodes unchanged 12/08/2016 None blood pressure followup Timing of Episodes upon awakening 12/08/2016 None blood pressure followup Triggers no known associated factors 12/08/2016 None blood pressure followup Pertinent Findings Denies anxiety 12/08/2016 None blood pressure followup Pertinent Findings Denies dizziness 12/08/2016 None blood pressure followup Pertinent Findings Denies dyspnea 12/08/2016 None blood pressure followup Pertinent Findings Denies edema 12/08/2016 None blood pressure followup Onset and Resolution ongoing 11/03/2016 None blood pressure followup Onset of Symptom during adulthood 11/03/2016 None blood pressure followup Blood Pressure Values pt checking blood pressure - see scanned document 11/03 None blood pressure followup Frequency of Episodes unchanged 11/03/2016 None blood pressure followup Timing of Episodes upon awakening 11/03/2016 None blood pressure followup Triggers no known associated factors 11/03/2016 None blood pressure followup Pertinent Findings Denies anxiety 11/03/2016 None blood pressure followup Pertinent Findings Denies dizziness 11/03/2016 None blood pressure followup Pertinent Findings Denies dyspnea 11/03/2016 None blood pressure followup Pertinent Findings Denies edema 11/03/2016 None blood pressure followup Onset and Resolution ongoing 10/06/2016 None blood pressure followup Onset of Symptom during adulthood 10/06/2016 None blood pressure followup Blood Pressure Values pt checking blood pressure - see scanned document 10/06 None blood pressure followup Frequency of Episodes unchanged 10/06/2016 None blood pressure followup Triggers no known associated factors 10/06/2016 None blood pressure followup Pertinent Findings Denies anxiety 10/06/2016 None blood pressure followup Pertinent Findings Denies dizziness 10/06/2016 None blood pressure followup Pertinent Findings Denies dyspnea 10/06/2016 None blood pressure followup Pertinent Findings Denies edema 10/06/2016 None blood pressure followup Timing of Episodes upon awakening 10/06/2016 None blood pressure followup Onset and Resolution ongoing 09/06/2016 None blood pressure followup Onset of Symptom during adulthood 09/06/2016 None blood pressure followup Blood Pressure Values pt checking blood pressure - see scanned document 09/06 None blood pressure followup Frequency of Episodes unchanged 09/06/2016 None blood pressure followup Triggers no known associated factors 09/06/2016 None blood pressure followup Pertinent Findings Denies anxiety 09/06/2016 None blood pressure followup Pertinent Findings Denies dizziness 09/06/2016 None blood pressure followup Pertinent Findings Denies dyspnea 09/06/2016 None blood pressure followup Pertinent Findings Denies edema 09/06/2016 None blood pressure followup Quality intermittent 08/23/2016 None blood pressure followup Onset of Symptom 1 months ago 08/23/2016 None blood pressure followup Blood Pressure Values pt checking blood pressure - see scanned document 08/23 None blood pressure followup Frequency of Episodes daily 08/23/2016 None blood pressure followup Pertinent Findings Denies anxiety 08/23/2016 None blood pressure followup Pertinent Findings Denies dizziness 08/23/2016 None blood pressure followup Pertinent Findings Denies dyspnea 08/23/2016 None blood pressure followup Pertinent Findings Denies edema 08/23/2016 None blood pressure followup Severity mild 08/23/2016 None blood pressure followup Triggers no known associated factors 08/23/2016 None blood pressure followup Onset and Resolution ongoing 08/23/2016 None _ _ Chronic Diarrhea and abdominal pain 04/26/2016 None _ Quality chronic None _ Onset and Resolution relatively stable while taking morphine 04/26/2016 None _ Additional Comments pt is post-op from multiple abdominal surgeries, bowel resection, stomach resection 04/26/2016 None Advance Directives No Advance Directive data Encounters Encounter Performer Location Codes Date [id number] EST. PATIENT, LEVEL IV Diagnosis: 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 deficiency[ ICD10: D51.0] Diagnosis: Essential (primary) hypertension[ICD10: I10] Diagnosis: Chronic pain syndrome[ICD10: G89.4] Teresa Paris MD, [facility] CPT-4: 86466 09/26/2017 44051 EST. PATIENT, LEVEL III Diagnosis: Dysphagia, pharyngoesophageal phase[ICD10: R13.14] Teresa Paris MD, [facility] CPT-4: 40996 08/16/2017 ([id number]) 71277 EST. PATIENT, LEVEL IV Diagnosis: Essential (primary) hypertension[ICD10: I10] Diagnosis: Chronic pain syndrome[ICD10: G89.4] Diagnosis: 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 deficiency[ ICD10: D51.0] Diagnosis: Iron deficiency anemia, unspecified[ICD10: D50.9] Diagnosis: Dysphagia, pharyngoesophageal phase[ICD10: R13.14] Ana Paris MD, [facility] CPT-4: 06159 07/18/2017 ([id number]) 42999 EST. PATIENT, LEVEL III Diagnosis: Essential (primary) hypertension[ICD10: I10] Diagnosis: Chronic pain syndrome[ICD10: G89.4] Diagnosis: 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 deficiency[ ICD10: D51.0] Ana Paris MD, [facility] CPT-4: 28717 05/16/2017 ([id number]) 75391 EST. PATIENT, LEVEL III Diagnosis: Essential (primary) hypertension[ICD10: I10] Diagnosis: Chronic pain syndrome[ICD10: G89.4] Diagnosis: 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 deficiency[ ICD10: D51.0] Ana Paris MD, [facility] CPT-4: 99201 03/14/2017 ([id number]) 24254 EST. PATIENT, LEVEL III Diagnosis: Cough[ICD10: R05] Diagnosis: Acute bronchitis, unspecified[ICD10: J20.9] Diagnosis: Chronic pain syndrome[ICD10: G89.4] Diagnosis: 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 deficiency[ ICD10: D51.0] Ana Paris MD, [facility] CPT-4: 66382 01/12/2017 ([id number]) 62753 EST. PATIENT, LEVEL III Diagnosis: Essential (primary) hypertension[ICD10: I10] Diagnosis: Chronic pain syndrome[ICD10: G89.4] Ana Paris MD, [facility] CPT-4: 18354 12/08/2016 ([id number]) 27714 EST. PATIENT, LEVEL III Diagnosis: Essential (primary) hypertension[ICD10: I10] Ana Paris MD, [facility] CPT-4: 82945 11/03/2016 ([id number]) 02665 EST. PATIENT, LEVEL III Diagnosis: Essential (primary) hypertension[ICD10: I10] Ana Paris MD, [facility] CPT-4: 57296 10/06/2016 ([id number]) 34084 EST. PATIENT, LEVEL III Diagnosis: Essential (primary) hypertension[ICD10: I10] [facility] CPT-4: 22899 09/06/2016 ([id number]) 48025 EST. PATIENT, LEVEL III Diagnosis: Essential (primary) hypertension[ICD10: I10] [facility] CPT-4: 12123 08/23/2016 ([id number]) OFFICE VISIT, NEW - LEVEL 4 Diagnosis: Noninfective gastroenteritis and colitis, unspecified[ICD10: K52.9] Diagnosis: 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 deficiency[ ICD10: D51.0] Diagnosis: Iron deficiency anemia, unspecified[ICD10: D50.9] Diagnosis: Chalazion left upper eyelid[ICD10: H00.14] Diagnosis: Elevated blood-pressure reading, without diagnosis of hypertension[ ICD10: R03.0] Andree Paris MD, [facility] CPT-4: 75288 04/26/2016 Plan of Care Planned Activity Notes Codes Status Date Visit Plan: Hypertension - uncontrolled - the patient's medications have been modified as documented in the visit note. The patient has been counseled to cut back on salt in diet for a no added salt diet, low fat diet, start an exercise program with low weight bearing exercises and higher aerobic activity for heart health. The patient is to check blood pressure readings as an outpatient and either fax, call, or email the readings to the office next week for practitioner to review. The pt is to call for acute concerns. Chronic Pain Syndrome - pt has chronic pain - has been maintained on current medications, has not sought out other medications, only uses PRN pain medications as directed, and understands the consequences of over-medication. 09/26/2017 Patient Education: Patient Medication Summary Completed 09/26/2017 Appointment: Teresa Bardales WPtel: [address] [place], [place] [id number] (30 min) Complex 09/19/2017 Referral: External, Ordering Provider Referral Appointment Confirmed 2016 Visit Plan: Dysphagia - worsening since yesterday - will refer to Dr. Harper for possible EGD - pt is to notify clinic if symptoms do not improve, if they worsen, or with any acute changes, questions, or concerns. 08/16/2017 App[facility]ment[facility] [phone] [id number] [facility] 08/16/2017 Patient Education: Patient Medication Summary Completed 08/16/2017 Care Plan: Referral Order SNOMED-CT : [id number] Pending 08/16/2017 Appointment: Injection 08/10/2017 Patient Education: Patient Medication Summary Completed 08/10/2017 Visit Plan: Hypertension -not well controlled - continue with current medications, continue with no added salt diet. Pt has been encouraged to exercise daily. The pt has been advised to call the office if there are any acute concerns about change in blood pressure readings at home. Chronic Pain Syndrome - pt has chronic pain - has been maintained on current medications, has not sought out other medications, only uses PRN pain medications as directed, and understands the consequences of over-medication. Dysphagia-schedule swallow study-start prilosec daily Iron deficiency anemia- patient gets IV iron q 9 months and states he is due to have it-check labs today first 07/18/2017 Appointment: Ana Pedraza WPtel: [phone] [id number] (30 min) Complex 07/18/2017 Patient Education: Patient Medication Summary Completed 07/18/2017 Visit Plan: Hypertension - well controlled - continue with current medications, continue with no added salt diet. Pt has been encouraged to exercise daily. The pt has been advised to call the office if there are any acute concerns about change in blood pressure readings at home. Chronic Pain Syndrome - pt has chronic pain - has been maintained on current medications, has not sought out other medications, only uses PRN pain medications as directed , and understands the consequences of over-medication. 05/16/2017 Appointment: Ana Pedraza WPtel: [phone] [id number] (30 min) Complex 05/16/2017 Patient Education: Patient Medication Summary Completed 05/16/2017 Visit Plan: Hypertension - well controlled - continue with current medications, continue with no added salt diet. Pt has been encouraged to exercise daily. The pt has been advised to call the office if there are any acute concerns about change in blood pressure readings at home. Chronic Pain Syndrome - pt has chronic pain - has been maintained on current medications, has not sought out other medications, only uses PRN pain medications as directed , and understands the consequences of over-medication. 03/14/2017 Appointment: Ana Pedraza WPtel: [phone] (30 min) Complex 03/14/2017 Patient Education: Patient Medication Summary Completed 03/14/2017 Visit Plan: Bronchitis - acute case of bronchitis identified. Pt has been given antibiotics, breathing treatments as appropriate, and pt has been instructed to call if symptoms are not improved, or if symptoms acutely worsen. Chronic Pain Syndrome - pt has chronic pain - has been maintained on current medications, has not sought out other medications, only uses PRN pain medications as directed, and understands the consequences of over- medication. 01/12/2017 Appointment: Ana Pedraza WPtel: [phone] (30 min) Complex 01/12/2017 Patient Education: Patient Medication Summary Completed 01/12/2017 Visit Plan: Medicare Exam - today we discussed the patients past history, immunizations, preventative exams/evaluations - colonoscopy, fecal occult blood testing, routine labs for renal function, glucose, cholesterol, osteoporosis evaluations, cardiovascular testing and cancer screenings. We have also discussed mental health and the signs/symptoms of depression. The patient was advised of home safety evaluations and the need to make sure that as the aging process continues, we need to be aware of different ways to make the home a safer place to reside. The patient has also been counseled that exercise is necessary - and of utmost importance as we age to help decrease fall risk and to maintain independece in the home. Today we discussed the need for the patient to create paperwork for Advanced directives as well as for the patient to provide this office with a copy of her DOPA paperwork for health care surrogate. 12/12/2016 Visit Plan: Medicare Exam - today we discussed the patients past history, immunizations, preventative exams/evaluations - colonoscopy, fecal occult blood testing, routine labs for renal function, glucose, cholesterol, osteoporosis evaluations, cardiovascular testing and cancer screenings. We have also discussed mental health and the signs/symptoms of depression. The patient was advised of home safety evaluations and the need to make sure that as the aging process continues, we need to be aware of different ways to make the home a safer place to reside. The patient has also been counseled that exercise is necessary - and of utmost importance as we age to help decrease fall risk and to maintain independece in the home. Today we discussed the need for the patient to create paperwork for Advanced directives as well as for the patient to provide this office with a copy of her DOPA paperwork for health care surrogate. 12/12/2016 Appointment: Ana Pedraza WPtel: [facility] [address] - Annual Wellness Visit 12/12/2016 Patient Education: Patient Medication Summary Completed 12/12/2016 Care Plan: Iron And Tibc Pending 12/12/2016 Visit Plan: Hypertension - well controlled - continue with current medications, continue with no added salt diet. Pt has been encouraged to exercise daily. The pt has been advised to call the office if there are any acute concerns about change in blood pressure readings at home. Chronic Pain Syndrome - pt has chronic pain - has been maintained on current medications, has not sought out other medications, only uses PRN pain medications as directed , and understands the consequences of over-medication. 12/08/2016 Appointment: Ana Pedraza WPtel: [facility] [address] (30 min) Complex 12/08/2016 Patient Education: Patient Medication Summary Completed 12/08/2016 Visit Plan: Hypertension - uncontrolled - the patient's medications have been modified as documented in the visit note. The patient has been counseled to cut back on salt in diet for a no added salt diet, low fat diet, start an exercise program with low weight bearing exercises and higher aerobic activity for heart health. The patient is to check blood pressure readings as an outpatient and either fax, call, or email the readings to the office next week for practitioner to review. The pt is to call for acute concerns. 11/03/2016 Appointment: Ana Pedraza WPtel: [id number] [id number] (30 min) Complex 11/03/2016 Patient Education: Patient Medication Summary Completed 11/03/2016 Appointment: Terrell 10/27/2016 Patient Education: Patient Medication Summary Completed 10/27/2016 Visit Plan: Hypertension - uncontrolled - the patient's medications have been modified as documented in the visit note. The patient has been counseled to cut back on salt in diet for a no added salt diet, low fat diet, start an exercise program with low weight bearing exercises and higher aerobic activity for heart health. The patient is to check blood pressure readings as an outpatient and either fax, call, or email the readings to the office next week for practitioner to review. The pt is to call for acute concerns. 10/06/2016 Appointment: Ana Pedraza WPtel: [id number] [id number] (30 min) Complex 10/06/2016 Patient Education: Patient Medication Summary Completed 10/06/2016 Visit Plan: Hypertension - uncontrolled - the patient's medications have been modified as documented in the visit note. The patient has been counseled to cut back on salt in diet for a no added salt diet, low fat diet, start an exercise program with low weight bearing exercises and higher aerobic activity for heart health. The patient is to check blood pressure readings as an outpatient and either fax, call, or email the readings to the office next week for practitioner to review. The pt is to call for acute concerns. 09/06/2016 Appointment: Ana Pedraza WPtel: [id number] [id number] (30 min) Complex 09/06/2016 Patient Education: Patient Medication Summary Completed 09/06/2016 Visit Plan: Hypertension - uncontrolled - patient does not want to start medication-the patient has been counseled to cut back on salt in diet for a no added salt diet, low fat diet, start an exercise program with low weight bearing exercises and higher aerobic activity for heart health. The patient is to check blood pressure readings as an outpatient and bring in readings in 2 weeks for appt. The pt is to call for acute concerns. 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 Chronic abdominal pain, diarrhea - treatment successfully with morphine daily - continue with current management. Eyelid infection - rx for gentamycin. 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 Chronic abdominal pain, diarrhea - treatment successfully with morphine daily - continue with current management. Eyelid infection - rx for gentamycin. 04/26/2016 [facility]ment: [id number] [facility] 04/26/2016 Patient Education: Patient Medication Summary Completed 04/26/2016 Referral: External, Ordering Provider Referral Initiated Instructions Comment PREVNAR 13 RECOMMEND SHINGLES VACCINE FASTING LABS . Medicare Exam - today we discussed the patients past history, immunizations, preventative exams/evaluations - colonoscopy, fecal occult blood testing, routine labs for renal function, glucose, cholesterol, osteoporosis evaluations , cardiovascular testing and cancer screenings. We have also discussed mental health and the signs/symptoms of depression. The patient was advised of home safety evaluations and the need to make sure that as the aging process continues , we need to be aware of different ways to make the home a safer place to reside. The patient has also been counseled that exercise is necessary - and of utmost importance as we age to help decrease fall risk and to maintain independece in the home. Today we discussed the need for the patient to create paperwork for Advanced directives as well as for the patient to provide this office with a copy of her DOP[employer] paperwork for health care surrogate. PREVNAR 13 RECOMMEND SHINGLES VACCINE FASTING LABS . Medicare Exam - today we discussed the patients past history, immunizations, preventative exams/evaluations - colonoscopy, fecal occult blood testing, routine labs for renal function, glucose, cholesterol, osteoporosis evaluations , cardiovascular testing and cancer screenings. We have also discussed mental health and the signs/symptoms of depression. The patient was advised of home safety evaluations and the need to make sure that as the aging process continues , we need to be aware of different ways to make the home a safer place to reside. The patient has also been counseled that exercise is necessary - and of utmost importance as we age to help decrease fall risk and to maintain independece in the home. Today we discussed the need for the patient to create paperwork for Advanced directives as well as for the patient to provide this office with a copy of her DOPA paperwork for health care surrogate. increase lisinopril to 20mg twice daily . Hypertension - uncontrolled - the patient's medications have been modified as documented in the visit note. The patient has been counseled to cut back on salt in diet for a no added salt diet, low fat diet, start an exercise program with low weight bearing exercises and higher aerobic activity for heart health. The patient is to check blood pressure readings as an outpatient and either fax , call, or email the readings to the office next week for practitioner to review. The pt is to call for acute concerns. CUT BACK ON SALTY FOODS-CANNED FOODS, FROZEN DINNERS, LUNCH MEAT, FAST FOODS MONITOR BLOOD PRESSURE . Hypertension - uncontrolled - patient does not want to start medication-the patient has been counseled to cut back on salt in diet for a no added salt diet , low fat diet, start an exercise program with low weight bearing exercises and higher aerobic activity for heart health. The patient is to check blood pressure readings as an outpatient and bring in readings in 2 weeks for appt. The pt is to call for acute concerns. . Hypertension - uncontrolled - the patient's medications have been modified as documented in the visit note. The patient has been counseled to cut back on salt in diet for a no added salt diet, low fat diet, start an exercise program with low weight bearing exercises and higher aerobic activity for heart health. The patient is to check blood pressure readings as an outpatient and either fax , call, or email the readings to the office next week for practitioner to review. The pt is to call for acute concerns. . Hypertension - well controlled - continue with current medications, continue with no added salt diet. Pt has been encouraged to exercise daily. The pt has been advised to call the office if there are any acute concerns about change in blood pressure readings at home. Chronic Pain Syndrome - pt has chronic pain - has been maintained on current medications, has not sought out other medications, only uses PRN pain medications as directed, and understands the consequences of over-medication. . Hypertension - uncontrolled - the patient's medications have been modified as documented in the visit note. The patient has been counseled to cut back on salt in diet for a no added salt diet, low fat diet, start an exercise program with low weight bearing exercises and higher aerobic activity for heart health. The patient is to check blood pressure readings as an outpatient and either fax , call, or email the readings to the office next week for practitioner to review. The pt is to call for acute concerns. Chronic Pain Syndrome - pt has chronic pain - has been maintained on current medications, has not sought out other medications, only uses PRN pain medications as directed, and understands the consequences of over-medication. Kenalog 60 mg IM Rocephin 500mg B12 injection Call Monday if not better . Bronchitis - acute case of bronchitis identified. Pt has been given antibiotics, breathing treatments as appropriate, and pt has been instructed to call if symptoms are not improved, or if symptoms acutely worsen. Chronic Pain Syndrome - pt has chronic pain - has been maintained on current medications, has not sought out other medications, only uses PRN pain medications as directed, and understands the consequences of over-medication. . Dysphagia - worsening since yesterday - will refer to Dr. Harper for possible EGD - pt is to notify clinic if symptoms do not improve , if they worsen, or with any acute changes, questions, or concerns. SCHEDULE SWALLOW STUDY CHECK LABS THEN SCHEDULE IV IRON INFUSION B12 INJECTION RECOMEND PRILOSEC OTC DAILY PATIENT IS TO CHECK BLOOD PRESSURE AND HEART RATE TWO TIMES DAILY AND BRING IN A RECORD OF THE READINGS INTO THE OFFICE IN TWO WEEKS. . Hypertension -not well controlled - continue with current medications, continue with no added salt diet. Pt has been encouraged to exercise daily. The pt has been advised to call the office if there are any acute concerns about change in blood pressure readings at home. Chronic Pain Syndrome - pt has chronic pain - has been maintained on current medications, has not sought out other medications, only uses PRN pain medications as directed, and understands the consequences of over-medication. Dysphagia-schedule swallow study-start prilosec daily Iron deficiency anemia-patient gets IV iron q 9 months and states he is due to have it-check labs today first . 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 Chronic abdominal pain, diarrhea - treatment successfully with morphine daily - continue with current management. Eyelid infection - rx for gentamycin. . 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 Chronic abdominal pain, diarrhea - treatment successfully with morphine daily - continue with current management. Eyelid infection - rx for gentamycin. . Hypertension - well controlled - continue with current medications, continue with no added salt diet. Pt has been encouraged to exercise daily. The pt has been advised to call the office if there are any acute concerns about change in blood pressure readings at home. Chronic Pain Syndrome - pt has chronic pain - has been maintained on current medications, has not sought out other medications, only uses PRN pain medications as directed, and understands the consequences of over-medication. . Hypertension - well controlled - continue with current medications, continue with no added salt diet. Pt has been encouraged to exercise daily. The pt has been advised to call the office if there are any acute concerns about change in blood pressure readings at home. Chronic Pain Syndrome - pt has chronic pain - has been maintained on current medications, has not sought out other medications, only uses PRN pain medications as directed, and understands the consequences of over-medication. . Hypertension - uncontrolled - the patient's medications have been modified as documented in the visit note. The patient has been counseled to cut back on salt in diet for a no added salt diet, low fat diet, start an exercise program with low weight bearing exercises and higher aerobic activity for heart health. The patient is to check blood pressure readings as an outpatient and either fax , call, or email the readings to the office next week for practitioner to review. The pt is to call for acute concerns.
--- OUTSIDE RECORDS SUMMARY | 2018-05-23 14:17 | XMS REPORT | CCD ---
Author Author Andree Paris Organization Andree Paris MD, [facility] Address [address] [place] [address] Phone Care Team Providers Care Life Cycle Assessment Analyst Name Role Phone PP Unavailable CCM Unavailable Summary Purpose Interface Exchange Insurance Providers Payer name Policy type / Coverage type Covered republican ID Effective Begin Date Effective End Date WPS Medicare Part B Medicare Part B [id number] Unknown Unknown FOR LIFE WPS Medicare Part B [id number] Unknown Unknown Family history Father Diagnosis Age At Onset No Known Diseases N/A Mother Diagnosis Age At Onset No Known Diseases N/A Social History Social History Element Codes Description Effective Dates Marital status Unknown 04/26/2016 Number of children Unknown 3 04/26/2016 Employment Unknown Retired 04/26/[address]: 6410558 Former smoker Quit 1968 04/26/[address]: 662502 Currently drinks alcohol 04/26/2016 Has the patient [...] (vit B-12) 1,000 mcg/mL injection solution RxNorm: 283176 1 Milliliter(s) Inj 09/26/2017 09/26/2017 Inactive hydrochlorothiazide 12.5 mg tablet RxNorm: 277524 1 Tablet(s) PO daily 09/26/2017 10/25/2017 Active morphine ER 30 mg tablet,extended release RxNorm: 084889 1 Tablet(s) PO daily 09/12/2017 10/11/2017 Active cyanocobalamin (vit B-12) 1,000 mcg/mL injection solution RxNorm: 945912 1 Milliliter(s) Inj 08/10/2017 08/10/2017 Inactive morphine ER 30 mg tablet,extended release RxNorm: 797803 1 Tablet(s) PO daily 08/10/2017 09/08/2017 Inactive Vitamin B-12 1,000 mcg/mL injection solution RxNorm: 788173 1 Milliliter(s) Inj month 07/21/2017 No Stop Date Active B12 INJECTIONS MONTHLY cyanocobalamin (vit B-12) 1,000 mcg/mL injection solution RxNorm: 131353 1 Milliliter(s) Inj 07/18/2017 07/18/2017 Inactive morphine ER 30 mg tablet,extended release RxNorm: 604404 1 Tablet(s) PO daily 07/13/2017 08/09/2017 Inactive morphine ER 30 mg tablet,extended release RxNorm: 183797 1 Tablet(s) PO daily 06/15/2017 07/12/2017 Inactive cyanocobalamin (vit B-12) 1,000 mcg/mL injection solution RxNorm: 075821 1 Milliliter(s) Inj 05/16/2017 05/16/2017 Inactive morphine ER 30 mg tablet,extended release RxNorm: 206707 1 Tablet(s) PO daily 04/13/2017 05/12/2017 Inactive cyanocobalamin (vit B-12) 1,000 mcg/mL injection solution RxNorm: 628898 1 Milliliter(s) Inj 03/14/2017 03/14/2017 Inactive morphine ER 30 mg tablet,extended release RxNorm: 944188 1 Tablet(s) PO daily 03/14/2017 04/12/2017 Inactive morphine ER 30 mg tablet,extended release RxNorm: 569165 1 Tablet(s) PO daily 02/13/2017 03/13/2017 Inactive Kenalog 40 mg/mL suspension for injection RxNorm: 7936387 1 Milliliter(s) Inj 01/12/2017 01/12/2017 Inactive cyanocobalamin (vit B-12) 1,000 mcg/mL injection solution RxNorm: 322532 1 Milliliter(s) Inj 01/12/2017 01/12/2017 Inactive Zithromax Z-[place] 250 mg tablet RxNorm: 945564 1 Tablet(s) PO UD 01/12/2017 01/16/2017 Inactive ceftriaxone 500 mg solution for injection RxNorm: 6397381 1 Milliliter(s) Inj 01/12/2017 01/12/2017 Inactive Vitamin B-12 1,000 mcg/mL injection solution RxNorm: 490589 1 Milliliter(s) Inj EVERY OTHER MONTH 01/04/2017 07/20/2017 Inactive lisinopril 20 mg tablet RxNorm: 228929 1 Tablet(s) PO BID 01/0212/27/2017 Active lisinopril 20 mg tablet RxNorm: 639144 1 Tablet(s) PO BID 12/1201/01/2017 Inactive morphine ER 30 mg tablet,extended release RxNorm: 246374 1 Tablet(s) PO daily 12/08/2016 01/06/2017 Inactive lisinopril 20 mg tablet RxNorm: 460805 1 Tablet(s) PO BID 11/0312/11/2016 Inactive morphine ER 30 mg tablet,extended release RxNorm: 136970 1 Tablet(s) PO daily 11/03/2016 12/02/2016 Inactive cyanocobalamin (vit B-12) 1,000 mcg/mL injection solution RxNorm: 331051 1 Milliliter(s) Inj 10/27/2016 10/27/2016 Inactive lisinopril 10 mg tablet RxNorm: 016636 1 Tablet(s) PO BID 10/0611/02/2016 Inactive lisinopril 10 mg tablet RxNorm: 881602 1 Tablet(s) PO daily 11/201610/05/2016 Inactive morphine ER 30 mg tablet,extended release RxNorm: 449594 1 Tablet(s) PO daily 08/18/2016 09/16/2016 Inactive cyanocobalamin (vit B-12) 1,000 mcg/mL injection solution RxNorm: 585788 Milliliter(s) Inj 07/27/2016 07/27/2016 Inactive morphine ER 30 mg tablet,extended release RxNorm: 750209 1 Tablet(s) PO daily 07/21/2016 08/17/2016 Inactive morphine ER 30 mg tablet,extended release RxNorm: 969964 1 Tablet(s) PO daily 06/20/2016 07/19/2016 Inactive morphine ER 30 mg tablet,extended release RxNorm: 671084 1 Tablet(s) PO daily 05/20/2016 06/19/2016 Inactive cyanocobalamin (vit B-12) 1,000 mcg/mL injection solution RxNorm: 249785 1 Milliliter(s) Inj 04/26/2016 04/26/2016 Inactive gentamicin 0.3 % eye drops RxNorm: 709753 2 Drop(s) OPH Q4H 05/02/2016 Inactive Venofer intravenous RxNorm: 82171 intravenous No Start Date Active Vitamin B-12 1,000 mcg/mL injection solution RxNorm: 701393 1 Milliliter(s) Inj EVERY 3 MONTHS No Start Date 01/03/2017 Inactive Claritin 10 mg tablet RxNorm: 254160 1 Tablet(s) PO daily No Start Date 07/17/2017 Inactive morphine ER 30 mg tablet,extended release RxNorm: 904320 1 Tablet(s) PO daily No Start Date 04/25/2016 Inactive Medication Administered Medication Codes Instructions Start Date Status cyanocobalamin (vit B-12) 1,000 mcg/mL injection solution RxNorm: 180011 1Milliliter 09/26/2017 Active cyanocobalamin (vit B-12) 1,000 mcg/mL injection solution RxNorm: 863472 1Milliliter 08/10/2017 No longer Active cyanocobalamin (vit B-12) 1,000 mcg/mL injection solution RxNorm: 415426 1Milliliter 07/18/2017 No longer Active cyanocobalamin (vit B-12) 1,000 mcg/mL injection solution RxNorm: 946167 1Milliliter 05/16/2017 No longer Active cyanocobalamin (vit B-12) 1,000 mcg/mL injection solution RxNorm: 851204 1Milliliter 03/14/2017 No longer Active Kenalog 40 mg/mL suspension for injection RxNorm: 5455762 1Milliliter 01/12/2017 No longer Active ceftriaxone 500 mg solution for injection RxNorm: 6982495 1Milliliter 01/12/2017 No longer Active cyanocobalamin (vit B-12) 1,000 mcg/mL injection solution RxNorm: 463439 1Milliliter 01/12/2017 No longer Active cyanocobalamin (vit B-12) 1,000 mcg/mL injection solution RxNorm: 549380 1Milliliter 10/27/2016 No longer Active cyanocobalamin (vit B-12) 1,000 mcg/mL injection solution RxNorm: 470934 Milliliter 07/27/2016 No longer Active cyanocobalamin (vit B-12) 1,000 mcg/mL injection solution RxNorm: 798846 1Milliliter 04/26/2016 No longer Active Immunizations Vaccine [...] 33.7 % 07/18/2017 Cbc With Differential Ord2 Carver% 12.3 % 07/18/2017 Cbc With Differential Ord2 [...] 2.90 K/ul 07/18/2017 Cbc With Differential Ord2 Carver ABS# 1.1 K/ul 07/18/2017 Cbc With Differential Ord2 Eos ABS# 0.2 K/ul 07/18/2017 Cbc With Differential Ord2 Baso ABS# 0.0 K/ul 07/18/2017 Comp Metabolic Tel807 NA 140 mEq/L 07/18/2017 Comp Metabolic Pvw532 K 4.6 mEq/L 07/18/2017 Comp Metabolic Tnp797 CL 105 mEq/L 07/18/2017 Comp Metabolic Pby221 CO2 29.0 mEq/L 07/18/2017 Comp Metabolic Fyo054 ANION GAP 11 07/18/2017 Comp Metabolic Beu513 GLUCOSE 96 mg/dL 07/18/2017 Comp Metabolic Gbt157 Creat 1.0 mg/dL 07/18/2017 Comp Metabolic Oqi185 eGFR 73 ml/min/1.73m2 07/18/2017 Comp Metabolic Fdq798 BUN 12 mg/dL 07/18/2017 Comp Metabolic Dgg544 B/C Ratio 11.7 Ratio 07/18/2017 Comp Metabolic Cuj508 CALCIUM 9.2 mg/dL 07/18/2017 Comp Metabolic Qjd092 ALK PHOS 74 U/L 07/18/2017 Comp Metabolic Syo520 AST(SGOT) 29 U/L 07/18/2017 Comp Metabolic Vzl972 ALT(SGPT) 16 U/L 07/18/2017 Comp Metabolic Izy111 BILI T 0.7 mg/dL 07/18/2017 Comp Metabolic Bnt926 ALBUMIN 3.7 g/dL 07/18/2017 Comp Metabolic Yxv601 TPRO 6.5 g/dL 07/18/2017 Comp Metabolic Jnr538 GLOB 2.8 g/dL 07/18/2017 Comp Metabolic Vrq220 A/G Ratio 1.3 Ratio 07/18/2017 Comp Metabolic Mom226 Osmo 279 mOsmo 07/18/2017 Iron Ord72 Iron 114 ug/dl 07/18/2017 B12 Dzc418 B12 233.00 pg/ml 07/18/2017 Tsh Ord6 hTSH [...] 33.3 pg 12/13/2016 Cbc With Differential Ord2 Carver% 17.9 % 12/13/2016 Cbc With Differential Ord2 [...] 2.71 K/ul 12/13/2016 Cbc With Differential Ord2 Carver ABS# 1.7 K/ul 12/13/2016 Cbc With Differential Ord2 Eos ABS# 0.3 K/ul 12/13/2016 Cbc With Differential Ord2 Baso ABS# 0.0 K/ul 12/13/2016 Comp Metabolic Acz267 NA 136 mEq/L 12/13/2016 Comp Metabolic Olz616 K 4.7 mEq/L 12/13/2016 Comp Metabolic Ylb526 CL 102 mEq/L 12/13/2016 Comp Metabolic Jsj769 CO2 26.0 mEq/L 12/13/2016 Comp Metabolic Igj091 ANION GAP 13 12/13/2016 Comp Metabolic Sxk377 GLUCOSE 87 mg/dL 12/13/2016 Comp Metabolic Ney984 Creat 0.9 mg/dL 12/13/2016 Comp Metabolic Xzi709 eGFR 83 ml/min/1.73m2 12/13/2016 Comp Metabolic Cdn748 BUN 17 mg/dL 12/13/2016 Comp Metabolic Ohn008 B/C Ratio 18.3 Ratio 12/13/2016 Comp Metabolic Ari932 CALCIUM 9.1 mg/dL 12/13/2016 Comp Metabolic Zmu180 ALK PHOS 90 U/L 12/13/2016 Comp Metabolic Ptv309 AST(SGOT) 22 U/L 12/13/2016 Comp Metabolic Rfh219 ALT(SGPT) 15 U/L 12/13/2016 Comp Metabolic Hwl230 BILI T 0.8 mg/dL 12/13/2016 Comp Metabolic Tau048 ALBUMIN 3.6 g/dL 12/13/2016 Comp Metabolic Gkm962 TPRO 6.4 g/dL 12/13/2016 Comp Metabolic Afs377 GLOB 2.9 g/dL 12/13/2016 Comp Metabolic Vzz182 A/G Ratio 1.2 Ratio 12/13/2016 Comp Metabolic Ucv702 Osmo 273 mOsmo 12/13/2016 Lipid Ord30 CHOL 182 mg/dL 12/13/2016 Lipid Ord30 HDL 64.0 mg/dl 12/13/2016 Lipid Ord30 TRIG 62 mg/dL 12/13/2016 Lipid Ord30 LDL 106 mg/dL 12/13/2016 Lipid Ord30 C/HDL 2.8 Ratio 12/13/2016 Ferritin Ord22 FERRITIN 434.7 ng/mL 12/13/2016 B12 Ohk722 B12 247.00 pg/ml 12/13/2016 Tibc Ord40 Iron [...] 33.7 pg 04/27/2016 Cbc With Differential Ord2 Carver% 13.7 % 04/27/2016 Cbc With Differential Ord2 [...] 3.22 K/ul 04/27/2016 Cbc With Differential Ord2 Carver ABS# 1.2 K/ul 04/27/2016 Cbc With Differential Ord2 Eos ABS# 0.3 K/ul 04/27/2016 Cbc With Differential Ord2 Baso ABS# 0.0 K/ul 04/27/2016 Comp Metabolic Nkt727 NA 138 mEq/L 04/27/2016 Comp Metabolic Kan944 K 4.3 mEq/L 04/27/2016 Comp Metabolic Tqt277 CL 104 mEq/L 04/27/2016 Comp Metabolic Cka795 CO2 30.0 mEq/L 04/27/2016 Comp Metabolic Sxy618 ANION GAP 8 04/27/2016 Comp Metabolic Ymy453 GLUCOSE 87 mg/dL 04/27/2016 Comp Metabolic Yln303 Creat 0.9 mg/dL 04/27/2016 Comp Metabolic Sai396 eGFR 82 ml/min/1.73m2 04/27/2016 Comp Metabolic Eae808 BUN 13 mg/dL 04/27/2016 Comp Metabolic Fai782 B/C Ratio 13.8 Ratio 04/27/2016 Comp Metabolic Hch811 CALCIUM 9.0 mg/dL 04/27/2016 Comp Metabolic Wwj381 ALK PHOS 62 U/L 04/27/2016 Comp Metabolic Xus049 AST(SGOT) 24 U/L 04/27/2016 Comp Metabolic Dxt811 ALT(SGPT) 15 U/L 04/27/2016 Comp Metabolic Eta005 BILI T 0.7 mg/dL 04/27/2016 Comp Metabolic Ved678 ALBUMIN 3.6 g/dL 04/27/2016 Comp Metabolic Zpm289 TPRO 6.1 g/dL 04/27/2016 Comp Metabolic Yxw306 GLOB 2.5 g/dL 04/27/2016 Comp Metabolic Bye130 A/G Ratio 1.4 Ratio 04/27/2016 Comp Metabolic Enj793 Osmo 275 mOsmo 04/27/2016 B12 Jfz993 B12 >1500.00 pg/ml 04/27/2016 Iron Ord72 Iron [...] Procedure Codes Date THER/PROPH/DIAG INJ SC/IM CPT-4: 09970 09/26/2017 VITAMIN B12 INJECTION CPT-4: J3420 09/26/2017 THER/PROPH/DIAG INJ SC/IM CPT-4: 69295 08/10/2017 VITAMIN B12 INJECTION CPT-4: J3420 08/10/2017 THER/PROPH/DIAG INJ SC/IM CPT-4: 68513 07/18/2017 VITAMIN B12 INJECTION CPT-4: J3420 07/18/2017 THER/PROPH/DIAG INJ SC/IM CPT-4: 48463 05/16/2017 VITAMIN B12 INJECTION CPT-4: J3420 05/16/2017 THER/PROPH/DIAG INJ SC/IM CPT-4: 38102 03/14/2017 VITAMIN B12 INJECTION CPT-4: J3420 03/14/2017 TRIAMCINOLONE ACET INJ NOS CPT-4: J3301 01/12/2017 ROCEPHIN, PER 250 MG CPT-4: J0696 01/12/2017 VITAMIN B12 INJECTION CPT-4: J3420 01/12/2017 THER/PROPH/DIAG INJ SC/IM CPT-4: 37134 01/12/2017 PPPS, SUBSEQ VISIT CPT -4: G0439 12/12/2016 PNEUMOCOCCAL VACC [address]: 46995163 CPT-4: 17564 12/12/2016 ADMIN PNEUMOCOCCAL VACCINE SNOMED CT: 61108983 CPT-4: G0009 12/12/2016 THER/PROPH/DIAG INJ SC/IM CPT-4: 62073 10/27/2016 VITAMIN B12 INJECTION CPT-4: J3420 10/27/2016 THER/PROPH/DIAG INJ SC/IM CPT-4: 16735 07/27/2016 VITAMIN B12 INJECTION CPT-4: J3420 07/27/2016 THER/PROPH/DIAG INJ SC/IM CPT-4: 87031 04/26/2016 VITAMIN B12 INJECTION CPT-4: J3420 04/26/2016 Vital Signs Date Vital 09/26/2017 Blood Pressure 1: 162/82 Code : 8480-6 BMI: 24.7 Code : 65138-8 Heart Rate 1 : 69 bpm Height: 5'7" SpO2: 99% Weight: 158 lbs 08/16/2017 Blood Pressure 1: 154/82 Code : 8480-6 BMI: 24.1 Code : 76877-5 Heart Rate 1 : 58 bpm Height: 5'7" SpO2: 96% Weight: 154 lbs 07/18/2017 Blood Pressure 1: 152/88 Code : 8480-6 BMI: 25.2 Code : 86092-4 Heart Rate 1 : 72 bpm Height: 5'7" SpO2: 98% Weight: 161 lbs 05/16/2017 Blood Pressure 1: 136/78 Code : 8480-6 BMI: 24.8 Code : 06501-4 Heart Rate 1 : 71 bpm Height: 5'7" SpO2: 96% Weight: 158 lbs 8 oz 03/14/2017 Blood Pressure 1: 142/74 Code : 8480-6 BMI: 23.8 Code : 45207-4 Heart Rate 1 : 69 bpm Height: 5'7" SpO2: 94% Weight: 152 lbs 01/12/2017 Blood Pressure 1: 156/90 Code : 8480-6 BMI: 23.4 Code : 29329-9 Heart Rate 1 : 90 bpm Height: 5'7" SpO2: 97% Temperature: 37.4 (C) / 99.3 (F) Weight: 149 lbs 8 oz 12/12/2016 Blood Pressure 1: 140/78 Code : 8480-6 BMI: 24.3 Code : 93941-8 Heart Rate 1 : 73 bpm Height: 5'7" SpO2: 96% Waist Measure (cm): 90 cm Weight: 155 lbs 12/08/2016 Blood Pressure 1: 148/84 Code : 8480-6 BMI: 24.3 Code : 14095-5 Heart Rate 1 : 80 bpm Height: 5'7" SpO2: 96% Weight: 155 lbs 11/03/2016 Blood Pressure 1: 156/84 Code : 8480-6 Blood Pressure 2: 155/94 Code: 8480-6 BMI: 24.3 Code: 40912-6 Heart Rate 1: 81 bpm Height: 5'7" SpO2: 98% Weight: 155 lbs 10/06/2016 Blood Pressure 1: 175/95 Code : 8480-6 Heart Rate 1: 77 bpm Respiratory Rate : 16 bpm SpO2: 98% Temperature: 36.4 (C) / 97.5 (F) Weight: 157 lbs 09/06/2016 Blood Pressure 1: 136/80 Code : 8480-6 BMI: 24.1 Code : 83500-9 Heart Rate 1 : 82 bpm Height: 5'8" SpO2: 97% Weight: 156 lbs 08/23/2016 Blood Pressure 1: 160/80 Code : 8480-6 BMI: 24.4 Code : 85568-6 Heart Rate 1 : 88 bpm Height: 5'8" SpO2: 95% Weight: 158 lbs 04/26/2016 Blood Pressure 1: 156/74 Code : 8480-6 BMI: 24.5 Code : 88981-5 Heart Rate 1 : 70 bpm Height: [...] data Encounters Encounter Performer Location Codes Date 67608 EST. PATIENT, LEVEL IV Diagnosis: 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 deficiency[ ICD10: D51.0] Diagnosis: Essential (primary) hypertension[ICD10: I10] Diagnosis: Chronic pain syndrome[ICD10: G89.4] Teresa Paris MD, [facility] CPT-4: 62276 09/26/2017 [id number] EST. PATIENT, LEVEL III Diagnosis: Dysphagia, pharyngoesophageal phase[ICD10: R13.14] Teresa Paris MD, [facility] CPT-4: 24473 08/16/2017 ([id number]) 26589 EST. PATIENT, LEVEL IV Diagnosis: Essential (primary) hypertension[ICD10: I10] Diagnosis: Chronic pain syndrome[ICD10: G89.4] Diagnosis: 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 deficiency[ ICD10: D51.0] Diagnosis: Iron deficiency anemia, unspecified[ICD10: D50.9] Diagnosis: Dysphagia, pharyngoesophageal phase[ICD10: R13.14] Ana Paris MD, [facility] CPT-4: 70216 07/18/2017 ([id number]) 95594 EST. PATIENT, LEVEL III Diagnosis: Essential (primary) hypertension[ICD10: I10] Diagnosis: Chronic pain syndrome[ICD10: G89.4] Diagnosis: 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 deficiency[ ICD10: D51.0] Ana Paris MD, [facility] CPT-4: 90130 05/16/2017 ([id number]) 01781 EST. PATIENT, LEVEL III Diagnosis: Essential (primary) hypertension[ICD10: I10] Diagnosis: Chronic pain syndrome[ICD10: G89.4] Diagnosis: 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 deficiency[ ICD10: D51.0] Ana Paris MD, [facility] CPT-4: 41290 03/14/2017 ([id number]) 36574 EST. PATIENT, LEVEL III Diagnosis: Cough[ICD10: R05] Diagnosis: Acute bronchitis, unspecified[ICD10: J20.9] Diagnosis: Chronic pain syndrome[ICD10: G89.4] Diagnosis: 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 deficiency[ ICD10: D51.0] Ana Paris MD, [facility] CPT-4: 95484 01/12/2017 ([id number]) 47658 EST. PATIENT, LEVEL III Diagnosis: Essential (primary) hypertension[ICD10: I10] Diagnosis: Chronic pain syndrome[ICD10: G89.4] Ana Paris MD, [facility] CPT-4: 87658 12/08/2016 ([id number]) 44781 EST. PATIENT, LEVEL III Diagnosis: Essential (primary) hypertension[ICD10: I10] Ana Paris MD, [facility] CPT-4: 10269 11/03/2016 ([id number]) 55943 EST. PATIENT, LEVEL III Diagnosis: Essential (primary) hypertension[ICD10: I10] Ana Paris MD, [facility] CPT-4: 36104 10/06/2016 ([id number]) 34141 EST. PATIENT, LEVEL III Diagnosis: Essential (primary) hypertension[ICD10: I10] [facility] CPT-4: 84094 09/06/2016 ([id number]) 43720 EST. PATIENT, LEVEL III Diagnosis: Essential (primary) hypertension[ICD10: I10] [facility] CPT-4: 77341 08/23/2016 ([id number]) OFFICE VISIT, NEW - LEVEL 4 Diagnosis: Noninfective gastroenteritis and colitis, unspecified[ICD10: K52.9] Diagnosis: 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 deficiency[ ICD10: D51.0] Diagnosis: Iron deficiency anemia, unspecified[ICD10: D50.9] Diagnosis: Chalazion left upper eyelid[ICD10: H00.14] Diagnosis: Elevated blood-pressure reading, without diagnosis of hypertension[ ICD10: R03.0] Andree Paris MD, [facility] CPT-4: 47757 04/26/2016 Plan of Care Planned Activity Notes [...] Summary Completed 09/26/2017 Appointment: Teresa Bardales WPtel: [address] [place], [place] [id number] (30 min) Complex 09/19/2017 Referral: External, Ordering Provider Referral Appointment Confirmed 2016 Visit Plan: Dysphagia - worsening since yesterday - will refer to Dr. Harper for possible EGD - pt is to notify clinic if symptoms do not improve, if they worsen, or with any acute changes, questions, or concerns. 08/16/2017 [phone] [phone] [facility] 08/16/2017 Patient Education: Patient Medication Summary Completed 08/16/2017 Care Plan: Referral Order SNOMED-CT : 568051030 Pending 08/16/2017 Appointment: Injection 08/10/2017 Patient Education: [...] first 07/18/2017 Appointment: Ana Pedraza WPtel: [phone] [phone] (30 min) Complex 07/18/2017 Patient Education: Patient [...] of over-medication. 05/16/2017 Appointment: Ana Pedraza WPtel: [phone] [phone] (30 min) Complex 05/16/2017 Patient Education: Patient [...] of over-medication. 03/14/2017 Appointment: Ana Pedraza WPtel: [phone] (30 min) Complex 03/14/2017 Patient Education: [...] medication. 01/12/2017 Appointment: Ana Pedraza WPtel: [phone] (30 min) Complex 01/12/2017 Patient Education: [...] care surrogate. 12/12/2016 Appointment: Ana Pedraza WPtel: [facility] [address] - Annual Wellness Visit 12/12/2016 Patient [...] of over-medication. 12/08/2016 Appointment: Ana Pedraza WPtel: [facility] [address] (30 min) Complex 12/08/2016 Patient Education: [...] concerns. 11/03/2016 Appointment: Ana Pedraza WPtel: [phone] [phone] (30 min) Complex 11/03/2016 Patient Education: Patient [...] concerns. 10/06/2016 Appointment: Ana Pedraza WPtel: [phone] [phone] (30 min) Complex 10/06/2016 Patient Education: Patient [...] concerns. 09/06/2016 Appointment: Ana Pedraza WPtel: [phone] [phone] (30 min) Complex 09/06/2016 Patient Education: Patient [...] concerns. 08/23/2016 Appointment: Ana Pedraza WPtel: [phone] [phone] (15 min) Moderate 08/23/2016 Patient Education: Patient [...] gentamycin. 04/26/2016 [phone] [facility] 04/26/2016 Patient Education: Patient Medication [...]
--- OUTSIDE RECORDS SUMMARY | 2018-05-23 14:18 | XMS REPORT | CCD ---
Author Author [facility] Organization [facility] Address [address] [place] [address] Phone Care Team Providers Care Coal Picker Name Role Phone PP Unavailable CCM Unavailable Summary Purpose Interface Exchange Insurance Providers Payer name Policy type / Coverage type Covered green party ID Effective Begin Date Effective End Date WPS Medicare Part B Medicare Part B [id number] Unknown Unknown FOR LIFE WPS Medicare Part B [id number] Unknown Unknown Family history Father Diagnosis Age At Onset No Known Diseases N/A Mother Diagnosis Age At Onset No Known Diseases N/A Social History Social History Element Codes Description Effective Dates Marital status Unknown 04/26/2016 Number of children Unknown 3 04/26/2016 Employment Unknown Retired 04/26/[address]: 5475462 Former smoker Quit 1968 04/26/[address]: 024231 Currently drinks alcohol 04/26/2016 Has the patient ever used illegal drugs? Unknown Has never used illegal drugs 04/26/2016 Allergies, Adverse Reactions, Alerts Substance Reaction Codes Entered Date Inactivated Date Status ibuprofen rash RxNorm: 5640 04/26/2016 No Inactive Date Active Past Medical History Illness Codes Condition Status Onset Date Resolved Date Chronic pain syndrome ICD-9: 338.4 ICD-10: G89.4 Active 12/08/2016 Unknown Essential (primary) hypertension ICD-9: 401.1 ICD-10: I10 Active 09/05/2016 Unknown Slow transit constipation ICD-9: 564.01 ICD-10: K59.01 Active 10/10/2017 Unknown 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-9: 281.0 ICD-10: D51.0 Active 07/26/2016 Unknown Dysphagia, pharyngoesophageal phase ICD-9: 787.24 ICD-10: R13.14 Active 07/18/2017 Unknown Iron deficiency anemia, unspecified ICD-9: 280.9 ICD-10: D50.9 Active 04/25/2016 Unknown Acute bronchitis, unspecified ICD-9: 466.0 ICD-10: [...] syndrome ICD-9: 338.4 ICD-10: G89.4 12/08/2016 Active Essential (primary) hypertension ICD-9: 401.1 ICD-10: I10 09/05/2016 Active Slow transit constipation ICD-9: 564.01 ICD-10: K59.01 10/10/2017 Active 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-9: 281.0 ICD-10: D51.0 07/26/2016 Active Dysphagia, pharyngoesophageal phase ICD-9: 787.24 ICD-10: R13.14 07/18/2017 Active Iron deficiency anemia, unspecified ICD-9: 280.9 ICD-10: D50.9 04/25/2016 Active Acute bronchitis, unspecified ICD-9: 466.0 ICD-10: [...] Start Date Stop Date Status Fill Instructions morphine ER 30 mg tablet,extended release RxNorm: 215416 1 Tablet(s) PO daily 10/10/2017 11/08/2017 Active hydrochlorothiazide 25 mg tablet RxNorm: 129437 1 Tablet(s) PO daily 10/10/2017 11/08/2017 Active hydrochlorothiazide 12.5 mg tablet RxNorm: 829543 1 Tablet(s) PO daily 09/26/2017 10/25/2017 Active cyanocobalamin (vit B-12) 1,000 mcg/mL injection solution RxNorm: 907910 1 Milliliter(s) Inj 09/26/2017 09/26/2017 Inactive morphine ER 30 mg tablet,extended release RxNorm: 964365 1 Tablet(s) PO daily 09/12/2017 10/09/2017 Inactive cyanocobalamin (vit B-12) 1,000 mcg/mL injection solution RxNorm: 143787 1 Milliliter(s) Inj 08/10/2017 08/10/2017 Inactive morphine ER 30 mg tablet,extended release RxNorm: 455170 1 Tablet(s) PO daily 08/10/2017 09/08/2017 Inactive Vitamin B-12 1,000 mcg/mL injection solution RxNorm: 623097 1 Milliliter(s) Inj month 07/21/2017 No Stop Date Active B12 INJECTIONS MONTHLY cyanocobalamin (vit B-12) 1,000 mcg/mL injection solution RxNorm: 540827 1 Milliliter(s) Inj 07/18/2017 07/18/2017 Inactive morphine ER 30 mg tablet,extended release RxNorm: 698731 1 Tablet(s) PO daily 07/13/2017 08/09/2017 Inactive morphine ER 30 mg tablet,extended release RxNorm: 909172 1 Tablet(s) PO daily 06/15/2017 07/12/2017 Inactive cyanocobalamin (vit B-12) 1,000 mcg/mL injection solution RxNorm: 960025 1 Milliliter(s) Inj 05/16/2017 05/16/2017 Inactive morphine ER 30 mg tablet,extended release RxNorm: 797602 1 Tablet(s) PO daily 04/13/2017 05/12/2017 Inactive cyanocobalamin (vit B-12) 1,000 mcg/mL injection solution RxNorm: 559984 1 Milliliter(s) Inj 03/14/2017 03/14/2017 Inactive morphine ER 30 mg tablet,extended release RxNorm: 665797 1 Tablet(s) PO daily 03/14/2017 04/12/2017 Inactive morphine ER 30 mg tablet,extended release RxNorm: 650472 1 Tablet(s) PO daily 02/13/2017 03/13/2017 Inactive Kenalog 40 mg/mL suspension for injection RxNorm: 8916217 1 Milliliter(s) Inj 01/12/2017 01/12/2017 Inactive cyanocobalamin (vit B-12) 1,000 mcg/mL injection solution RxNorm: 493258 1 Milliliter(s) Inj 01/12/2017 01/12/2017 Inactive Zithromax Z-[place] 250 mg tablet RxNorm: 101016 1 Tablet(s) PO UD 01/12/2017 01/16/2017 Inactive ceftriaxone 500 mg solution for injection RxNorm: 3691434 1 Milliliter(s) Inj 01/12/2017 01/12/2017 Inactive Vitamin B-12 1,000 mcg/mL injection solution RxNorm: 724788 1 Milliliter(s) Inj EVERY OTHER MONTH 01/04/2017 07/20/2017 Inactive lisinopril 20 mg tablet RxNorm: 970175 1 Tablet(s) PO BID 01/0212/27/2017 Active lisinopril 20 mg tablet RxNorm: 443559 1 Tablet(s) PO BID 12/1201/01/2017 Inactive morphine ER 30 mg tablet,extended release RxNorm: 223437 1 Tablet(s) PO daily 12/08/2016 01/06/2017 Inactive lisinopril 20 mg tablet RxNorm: 848733 1 Tablet(s) PO BID 11/0312/11/2016 Inactive morphine ER 30 mg tablet,extended release RxNorm: 762992 1 Tablet(s) PO daily 11/03/2016 12/02/2016 Inactive cyanocobalamin (vit B-12) 1,000 mcg/mL injection solution RxNorm: 780348 1 Milliliter(s) Inj 10/27/2016 10/27/2016 Inactive lisinopril 10 mg tablet RxNorm: 851801 1 Tablet(s) PO BID 10/0611/02/2016 Inactive lisinopril 10 mg tablet RxNorm: 435651 1 Tablet(s) PO daily 11/201610/05/2016 Inactive morphine ER 30 mg tablet,extended release RxNorm: 555460 1 Tablet(s) PO daily 08/18/2016 09/16/2016 Inactive cyanocobalamin (vit B-12) 1,000 mcg/mL injection solution RxNorm: 280801 Milliliter(s) Inj 07/27/2016 07/27/2016 Inactive morphine ER 30 mg tablet,extended release RxNorm: 088291 1 Tablet(s) PO daily 07/21/2016 08/17/2016 Inactive morphine ER 30 mg tablet,extended release RxNorm: 659056 1 Tablet(s) PO daily 06/20/2016 07/19/2016 Inactive morphine ER 30 mg tablet,extended release RxNorm: 958232 1 Tablet(s) PO daily 05/20/2016 06/19/2016 Inactive cyanocobalamin (vit B-12) 1,000 mcg/mL injection solution RxNorm: 545187 1 Milliliter(s) Inj 04/26/2016 04/26/2016 Inactive gentamicin 0.3 % eye drops RxNorm: 177017 2 Drop(s) OPH Q4H 05/02/2016 Inactive Venofer intravenous RxNorm: 18797 intravenous No Start Date Active Vitamin B-12 1,000 mcg/mL injection solution RxNorm: 878001 1 Milliliter(s) Inj EVERY 3 MONTHS No Start Date 01/03/2017 Inactive Claritin 10 mg tablet RxNorm: 785078 1 Tablet(s) PO daily No Start Date 07/17/2017 Inactive morphine ER 30 mg tablet,extended release RxNorm: 287721 1 Tablet(s) PO daily No Start Date 04/25/2016 Inactive Medication Administered Medication Codes Instructions Start Date Status cyanocobalamin (vit B-12) 1,000 mcg/mL injection solution RxNorm: 435237 1Milliliter 09/26/2017 No longer Active cyanocobalamin (vit B-12) 1,000 mcg/mL injection solution RxNorm: 744091 1Milliliter 08/10/2017 No longer Active cyanocobalamin (vit B-12) 1,000 mcg/mL injection solution RxNorm: 050486 1Milliliter 07/18/2017 No longer Active cyanocobalamin (vit B-12) 1,000 mcg/mL injection solution RxNorm: 317692 1Milliliter 05/16/2017 No longer Active cyanocobalamin (vit B-12) 1,000 mcg/mL injection solution RxNorm: 602862 1Milliliter 03/14/2017 No longer Active Kenalog 40 mg/mL suspension for injection RxNorm: 9316331 illiliter 01/12/2017 No longer Active ceftriaxone 500 mg solution for injection RxNorm: 7104715 1Milliliter 01/12/2017 No longer Active cyanocobalamin (vit B-12) 1,000 mcg/mL injection solution RxNorm: 551184 1Milliliter 01/12/2017 No longer Active cyanocobalamin (vit B-12) 1,000 mcg/mL injection solution RxNorm: 100075 1Milliliter 10/27/2016 No longer Active cyanocobalamin (vit B-12) 1,000 mcg/mL injection solution RxNorm: 330452 Milliliter 07/27/2016 No longer Active cyanocobalamin (vit B-12) 1,000 mcg/mL injection solution RxNorm: 739215 1Milliliter 04/26/2016 No longer Active Immunizations Vaccine Codes Date Status Pneumococcal (Adult) CVX: 133 12/12/2016 completed Assessments Condition Codes Effective Dates Chronic pain syndrome ICD-10: G89.4 ICD-9: 338.4 10/10/2017 Essential (primary) hypertension ICD-10: I10 ICD-9: 401.1 10/10/2017 Slow transit constipation ICD-10: K59.01 ICD-9: 564.01 10/10/2017 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-10: D51.0 ICD-9: 281.0 09/26/2017 Dysphagia, pharyngoesophageal phase ICD-10: R13.14 ICD-9: [...] Reason For Visit Effective Dates Notes hypertension 10/10/2017 hypertension 09/26/2017 gastroesophageal reflux 08/16/2017 hypertension 07/18/2017 [...] 33.7 % 07/18/2017 Cbc With Differential Ord2 MCH 33.7 pg 07/18/2017 Cbc With Differential Ord2 [place]assen% 12.3 % 07/18/2017 Cbc With Differential Ord2 MCHC 33.5 pg 07/18/2017 Cbc With Differential Ord2 Eos% 2.0 % 07/18/2017 Cbc With Differential Ord2 PLT 305 K/ul 07/18/2017 Cbc With Differential Ord2 Baso% 0.5 % 07/18/2017 Cbc With Differential Ord2 RDW 13.9 % 07/18/2017 Cbc With Differential Ord2 Neut ABS# 4.44 K/ul 07/18/2017 Cbc With Differential Ord2 Lymph ABS# 2.90 K/ul 07/18/2017 Cbc With Differential Ord2 [place] ABS# 1.1 K/ul 07/18/2017 Cbc With Differential Ord2 Eos ABS# 0.2 K/ul 07/18/2017 Cbc With Differential Ord2 Baso ABS# 0.0 K/ul 07/18/2017 Comp Metabolic Zny559 NA 140 mEq/L 07/18/2017 Comp Metabolic Lmn775 K 4.6 mEq/L 07/18/2017 Comp Metabolic Lfl335 CL 105 mEq/L 07/18/2017 Comp Metabolic Oks204 CO2 29.0 mEq/L 07/18/2017 Comp Metabolic Nvl303 ANION GAP 11 07/18/2017 Comp Metabolic Pgp921 GLUCOSE 96 mg/dL 07/18/2017 Comp Metabolic Xmk600 Creat 1.0 mg/dL 07/18/2017 Comp Metabolic Vmz393 eGFR 73 ml/min/1.73m2 07/18/2017 Comp Metabolic Uxs071 BUN 12 mg/dL 07/18/2017 Comp Metabolic Ypl133 B/C Ratio 11.7 Ratio 07/18/2017 Comp Metabolic Tka429 CALCIUM 9.2 mg/dL 07/18/2017 Comp Metabolic Umw956 ALK PHOS 74 U/L 07/18/2017 Comp Metabolic Aia611 AST(SGOT) 29 U/L 07/18/2017 Comp Metabolic Poe493 ALT(SGPT) 16 U/L 07/18/2017 Comp Metabolic Wok668 BILI T 0.7 mg/dL 07/18/2017 Comp Metabolic Hub668 ALBUMIN 3.7 g/dL 07/18/2017 Comp Metabolic Pnd501 TPRO 6.5 g/dL 07/18/2017 Comp Metabolic Jrx106 GLOB 2.8 g/dL 07/18/2017 Comp Metabolic Pgq377 A/G Ratio 1.3 Ratio 07/18/2017 Comp Metabolic Bdq554 Osmo 279 mOsmo 07/18/2017 Iron Ord72 Iron 114 ug/dl 07/18/2017 B12 Iyh046 B12 233.00 pg/ml 07/18/2017 Tsh Ord6 hTSH [...] 33.3 pg 12/13/2016 Cbc With Differential Ord2 [place]% 17.9 % 12/13/2016 Cbc With Differential Ord2 [...] 2.71 K/ul 12/13/2016 Cbc With Differential Ord2 [place] ABS# 1.7 K/ul 12/13/2016 Cbc With Differential Ord2 Eos ABS# 0.3 K/ul 12/13/2016 Cbc With Differential Ord2 Baso ABS# 0.0 K/ul 12/13/2016 Comp Metabolic Squ233 NA 136 mEq/L 12/13/2016 Comp Metabolic Qzr603 K 4.7 mEq/L 12/13/2016 Comp Metabolic Czr374 CL 102 mEq/L 12/13/2016 Comp Metabolic Tkm874 CO2 26.0 mEq/L 12/13/2016 Comp Metabolic Usj028 ANION GAP 13 12/13/2016 Comp Metabolic Vys874 GLUCOSE 87 mg/dL 12/13/2016 Comp Metabolic Kiu402 Creat 0.9 mg/dL 12/13/2016 Comp Metabolic Aum481 eGFR 83 ml/min/1.73m2 12/13/2016 Comp Metabolic Hva491 BUN 17 mg/dL 12/13/2016 Comp Metabolic Cth929 B/C Ratio 18.3 Ratio 12/13/2016 Comp Metabolic Gry991 CALCIUM 9.1 mg/dL 12/13/2016 Comp Metabolic Igv389 ALK PHOS 90 U/L 12/13/2016 Comp Metabolic Fvr565 AST(SGOT) 22 U/L 12/13/2016 Comp Metabolic Khs080 ALT(SGPT) 15 U/L 12/13/2016 Comp Metabolic Yhv483 BILI T 0.8 mg/dL 12/13/2016 Comp Metabolic Xta056 ALBUMIN 3.6 g/dL 12/13/2016 Comp Metabolic Eux936 TPRO 6.4 g/dL 12/13/2016 Comp Metabolic Dta485 GLOB 2.9 g/dL 12/13/2016 Comp Metabolic Ekz343 A/G Ratio 1.2 Ratio 12/13/2016 Comp Metabolic Oky538 Osmo 273 mOsmo 12/13/2016 Lipid Ord30 CHOL 182 mg/dL 12/13/2016 Lipid Ord30 HDL 64.0 mg/dl 12/13/2016 Lipid Ord30 TRIG 62 mg/dL 12/13/2016 Lipid Ord30 LDL 106 mg/dL 12/13/2016 Lipid Ord30 C/HDL 2.8 Ratio 12/13/2016 Ferritin Ord22 FERRITIN 434.7 ng/mL 12/13/2016 B12 Jxg725 B12 247.00 pg/ml 12/13/2016 Tibc Ord40 Iron 79 ug/dl 12/13/2016 Tibc Ord40 UIBC 218 ug/dL 12/13/2016 Tibc Ord40 TIBC 297 ug/dL 12/13/2016 Tibc Ord40 Fe-%Sat 26.6 % 12/13/2016 Cbc With Differential Ord2 WBC 8.79 K/ul 04/27/2016 Cbc With Differential Ord2 RBC 4.36 M/ul 04/27/2016 Cbc With Differential Ord2 HGB 14.7 g/dl 04/27/2016 Cbc With Differential Ord2 Neut% 45.8 % 04/27/2016 Cbc With Differential Ord2 HCT 44.4 % 04/27/2016 Cbc With Differential Ord2 MCV 101.8 fl 04/27/2016 Cbc With Differential Ord2 Lymph% 36.6 % 04/27/2016 Cbc With Differential Ord2 MCH 33.7 pg 04/27/2016 Cbc With Differential Ord2 Lassen% 13.7 % 04/27/2016 Cbc With Differential Ord2 MCHC 33.1 pg 04/27/2016 Cbc With Differential Ord2 Eos% 3.6 % 04/27/2016 Cbc With Differential Ord2 PLT 295 K/ul 04/27/2016 Cbc With Differential Ord2 Baso% 0.3 % 04/27/2016 Cbc With Differential Ord2 RDW 14.4 % 04/27/2016 Cbc With Differential Ord2 Neut ABS# 4.02 K/ul 04/27/2016 Cbc With Differential Ord2 Lymph ABS# 3.22 K/ul 04/27/2016 Cbc With Differential Ord2 [place] ABS# 1.2 K/ul 04/27/2016 Cbc With Differential Ord2 Eos ABS# 0.3 K/ul 04/27/2016 Cbc With Differential Ord2 Baso ABS# 0.0 K/ul 04/27/2016 Comp Metabolic Nef288 NA 138 mEq/L 04/27/2016 Comp Metabolic Ttn273 K 4.3 mEq/L 04/27/2016 Comp Metabolic Asy469 CL 104 mEq/L 04/27/2016 Comp Metabolic Aib652 CO2 30.0 mEq/L 04/27/2016 Comp Metabolic Teh085 ANION GAP 8 04/27/2016 Comp Metabolic Ghi847 GLUCOSE 87 mg/dL 04/27/2016 Comp Metabolic Dcs397 Creat 0.9 mg/dL 04/27/2016 Comp Metabolic Oiu028 eGFR 82 ml/min/1.73m2 04/27/2016 Comp Metabolic Tyr817 BUN 13 mg/dL 04/27/2016 Comp Metabolic Vrx296 B/C Ratio 13.8 Ratio 04/27/2016 Comp Metabolic Whp521 CALCIUM 9.0 mg/dL 04/27/2016 Comp Metabolic Xga657 ALK PHOS 62 U/L 04/27/2016 Comp Metabolic Grs831 AST(SGOT) 24 U/L 04/27/2016 Comp Metabolic Buj965 ALT(SGPT) 15 U/L 04/27/2016 Comp Metabolic Gou922 BILI T 0.7 mg/dL 04/27/2016 Comp Metabolic Mxu820 ALBUMIN 3.6 g/dL 04/27/2016 Comp Metabolic Whc085 TPRO 6.1 g/dL 04/27/2016 Comp Metabolic Vbm411 GLOB 2.5 g/dL 04/27/2016 Comp Metabolic Itg806 A/G Ratio 1.4 Ratio 04/27/2016 Comp Metabolic Zqo373 Osmo 275 mOsmo 04/27/2016 B12 Yfn291 B12 >1500.00 pg/ml 04/27/2016 Iron Ord72 Iron 104 ug/dl 04/27/2016 Lipid Ord30 CHOL 178 mg/dL 04/27/2016 Lipid Ord30 HDL 70.0 mg/dl 04/27/2016 Lipid Ord30 TRIG 57 mg/dL 04/27/2016 Lipid Ord30 LDL 97 mg/dL 04/27/2016 Lipid Ord30 C/HDL 2.5 Ratio 04/27/2016 Tsh Ord6 hTSH II 1.89 uIU/mL 04/27/2016 Review of Systems System Result Effective Dates Constitutional No recent illness 2017 Constitutional No chills 10/10/2017 Constitutional No diaphoresis 10/10/2017 Constitutional fatigue 10/10/2017 Constitutional No fever 10/10/2017 Eyes No eye discharge 10/10/2017 Eyes No eye erythema 10/10/2017 Cardiovascular No chest pain/pressure 02/2018 Cardiovascular No dyspnea 10/10/2017 Cardiovascular edema 10/10/2017 Cardiovascular hypertension 10/10/2017 Cardiovascular No near-syncope/dizziness 10/10/2017 Cardiovascular No palpitations 2017 Respiratory No cough 10/10/2017 Gastrointestinal No abdominal pain 2017 Gastrointestinal constipation 10/10/2017 Gastrointestinal No diarrhea 10/10/2017 Gastrointestinal No gastroesophageal reflux 10/10/2017 Musculoskeletal joint complaint 2017 Dermatologic No rash 10/10/2017 Neurologic No alteration of consciousness 10/10/2017 Neurologic No mental status change 2017 Ears/Nose/Throat/Neck No nasal discharge 10/10/2017 Ears/Nose/Throat/Neck No nasal allergies 10/10/2017 Respiratory No chest congestion 2017 Constitutional No chills 09/26/2017 Constitutional No diaphoresis [...] Dates Notes Full Exam - General 1994 Constitutional general appearance Overall: well developed 10/10/2017 None Full Exam - General 1994 Constitutional general appearance Overall: in no acute distress 10/10/2017 None Full Exam - General 1994 Constitutional general appearance Overall: well nourished 10/10/2017 None Full Exam - General 1994 Eyes conjunctiva /eyelids Overall: conjunctiva clear 10/10/2017 None Full Exam - General 1994 Eyes conjunctiva /eyelids Overall: cornea clear 10/10/2017 None Full Exam - General 1994 Eyes conjunctiva /eyelids Overall: eyelids normal 10/10/2017 None Full Exam - General 1994 Eyes pupils and irises Overall: pupils equal, round, reactive to light and accomodation 10/10/2017 None Full Exam - General 1995 Ears/Nose/Throat lips/teeth/gingiva Overall: benign lips 10/10/2017 None Full Exam - General 1995 Ears/Nose/Throat oral cavity/pharynx/larynx Overall: oral mucosa clear 10/10/2017 None Full Exam - General 1994 Respiratory auscultation Overall: breath sounds clear bilaterally 10/10/2017 None Full Exam - General 1994 Respiratory respiratory effort/rhythm Overall: no retractions 10/10/2017 None Full Exam - General 1994 Respiratory respiratory effort/rhythm Overall: normal rate 10/10/2017 None Full Exam - General 1994 Cardiovascular extremities Edema present: pitting 10/10/2017 None Full Exam - General 1994 Cardiovascular extremities Edema present: severity 1+ - 4 +: trace ankles 10/10/2017 None Full Exam - General 1994 Cardiovascular extremities Edema present: bilateral 10/10/2017 None Full Exam - General 1994 Cardiovascular auscultation of heart Overall: regular rate 10/10/2017 None Full Exam - General 1994 Cardiovascular auscultation of heart Overall: normal heart sounds 10/10/2017 None Full Exam - General 1994 Neurologic cranial nerves Overall: crainial nerves 2 - 12 grossly intact 10/10/2017 None Full Exam - General 1994 Psychiatric orientation/consciousness Overall: oriented to person, place and time 10/10/2017 None Full Exam - General 1994 Psychiatric mood and affect Overall: normal mood and affect 10/10/2017 None Full Exam - General 1994 Ears/Nose/Throat lips/teeth/gingiva Teeth: wears dentures 10/10/2017 None Full Exam - General 1994 Eyes [...] General 1994 Ears/Nose/Throat lips/teeth/gingiva Overall: benign lips 11/03/2016 None Full Exam - General 1994 Ears/Nose/Throat lips/teeth/gingiva Overall: normal dentition 11/03/2016 None Full Exam - General 1994 Ears/Nose/Throat oral cavity/pharynx/larynx Overall: oral mucosa clear 11/03/2016 None Full Exam - General 1994 Ears/Nose/Throat oral cavity/pharynx/larynx Overall: oropharyngeal mucosa clear 11/03/2016 None Full Exam - General 1994 Ears/Nose/Throat oral cavity/pharynx/larynx Overall: hypopharynx benign 11/03/2016 None Full Exam - General 1995 Ears/Nose/Throat oral cavity/pharynx/larynx Overall: no masses 11/03/2016 [...] dentition 10/06/2016 None Full Exam - General 1994 Ears/Nose/Throat oral cavity/pharynx/larynx Overall: oral mucosa clear 10/06/2016 None Full Exam - General 1995 Ears/Nose/Throat oral cavity/pharynx/larynx Overall: oropharyngeal mucosa clear 10/06/2016 None Full Exam - General 1994 Ears/Nose/Throat oral cavity/pharynx/larynx Overall: hypopharynx benign 10/06/2016 [...] Procedure Codes Date THER/PROPH/DIAG INJ SC/IM CPT-4: 51759 09/26/2017 VITAMIN B12 INJECTION CPT-4: J3420 09/26/2017 THER/PROPH/DIAG INJ SC/IM CPT-4: 17686 08/10/2017 VITAMIN B12 INJECTION CPT-4: J3420 08/10/2017 THER/PROPH/DIAG INJ SC/IM CPT-4: 15131 07/18/2017 VITAMIN B12 INJECTION CPT-4: J3420 07/18/2017 THER/PROPH/DIAG INJ SC/IM CPT-4: 32574 05/16/2017 VITAMIN B12 INJECTION CPT-4: J3420 05/16/2017 THER/PROPH/DIAG INJ SC/IM CPT-4: 54318 03/14/2017 VITAMIN B12 INJECTION CPT-4: J3420 03/14/2017 TRIAMCINOLONE ACET INJ NOS CPT-4: J3301 01/12/2017 ROCEPHIN, PER 250 MG CPT-4: J0696 01/12/2017 VITAMIN B12 INJECTION CPT-4: J3420 01/12/2017 THER/PROPH/DIAG INJ SC/IM CPT-4: 00033 01/12/2017 PPPS, SUBSEQ VISIT CPT -4: G0439 12/12/2016 PNEUMOCOCCAL VACC [address]: 39357257 CPT-4: 49501 12/12/2016 ADMIN PNEUMOCOCCAL VACCINE SNOMED CT: 40753070 CPT-4: G0009 12/12/2016 THER/PROPH/DIAG INJ SC/IM CPT-4: 40078 10/27/2016 VITAMIN B12 INJECTION CPT-4: J3420 10/27/2016 THER/PROPH/DIAG INJ SC/IM CPT-4: 91068 07/27/2016 VITAMIN B12 INJECTION CPT-4: J3420 07/27/2016 THER/PROPH/DIAG INJ SC/IM CPT-4: 61004 04/26/2016 VITAMIN B12 INJECTION CPT-4: J3420 04/26/2016 Vital Signs Date Vital 10/10/2017 Blood Pressure 1: 156/76 Code : 8480-6 BMI: 24.7 Code : 69916-2 Heart Rate 1 : 71 bpm Height: 5'7" SpO2: 98% Weight: 158 lbs 09/26/2017 Blood Pressure 1: 162/82 Code : 8480-6 BMI: 24.7 Code : 71810-4 Heart Rate 1 : 69 bpm Height: 5'7" SpO2: 99% Weight: 158 lbs 08/16/2017 Blood Pressure 1: 154/82 Code : 8480-6 BMI: 24.1 Code : 82677-6 Heart Rate 1 : 58 bpm Height: 5'7" SpO2: 96% Weight: 154 lbs 07/18/2017 Blood Pressure 1: 152/88 Code : 8480-6 BMI: 25.2 Code : 67795-9 Heart Rate 1 : 72 bpm Height: 5'7" SpO2: 98% Weight: 161 lbs 05/16/2017 Blood Pressure 1: 136/78 Code : 8480-6 BMI: 24.8 Code : 18254-6 Heart Rate 1 : 71 bpm Height: 5'7" SpO2: 96% Weight: 158 lbs 8 oz 03/14/2017 Blood Pressure 1: 142/74 Code : 8480-6 BMI: 23.8 Code : 26571-7 Heart Rate 1 : 69 bpm Height: 5'7" SpO2: 94% Weight: 152 lbs 01/12/2017 Blood Pressure 1: 156/90 Code : 8480-6 BMI: 23.4 Code : 58668-2 Heart Rate 1 : 90 bpm Height: 5'7" SpO2: 97% Temperature: 37.4 (C) / 99.3 (F) Weight: 149 lbs 8 oz 12/12/2016 Blood Pressure 1: 140/78 Code : 8480-6 BMI: 24.3 Code : 39930-5 Heart Rate 1 : 73 bpm Height: 5'7" SpO2: 96% Waist Measure (cm): 90 cm Weight: 155 lbs 12/08/2016 Blood Pressure 1: 148/84 Code : 8480-6 BMI: 24.3 Code : 56630-2 Heart Rate 1 : 80 bpm Height: 5'7" SpO2: 96% Weight: 155 lbs 11/03/2016 Blood Pressure 1: 156/84 Code : 8480-6 Blood Pressure 2: 155/94 Code: 8480-6 BMI: 24.3 Code: 03646-3 Heart Rate 1: 81 bpm Height: 5'7" SpO2: 98% Weight: 155 lbs 10/06/2016 Blood Pressure 1: 175/95 Code : 8480-6 Heart Rate 1: 77 bpm Respiratory Rate : 16 bpm SpO2: 98% Temperature: 36.4 (C) / 97.5 (F) Weight: 157 lbs 09/06/2016 Blood Pressure 1: 136/80 Code : 8480-6 BMI: 24.1 Code : 06343-8 Heart Rate 1 : 82 bpm Height: 5'8" SpO2: 97% Weight: 156 lbs 08/23/2016 Blood Pressure 1: 160/80 Code : 8480-6 BMI: 24.4 Code : 54755-8 Heart Rate 1 : 88 bpm Height: 5'8" SpO2: 95% Weight: 158 lbs 04/26/2016 Blood Pressure 1: 156/74 Code : 8480-6 BMI: 24.5 Code : 30287-0 Heart Rate 1 : 70 bpm Height: 5'8" SpO2: 97% Weight: 159 lbs Functional Status No Functional Status data History of Present Illness Symptom Name Status Result Effective Date Notes hypertension Quality intermittent 10/10/2017 None hypertension Quality primary hypertension 10/10/2017 None hypertension Onset and Resolution ongoing 10/10/2017 None hypertension Onset of Symptom during adulthood 10/10/2017 None hypertension Alleviating Factors medication 10/10/2017 None hypertension Pertinent Findings Denies dizziness 10/10/2017 None hypertension Pertinent Findings Denies dyspnea 10/10/2017 None hypertension Pertinent Findings edema 10/10/2017 in both ankles and feet hypertension Blood Pressure Values pt checking blood pressure - see scanned document 10/10/2017 None hypertension Quality primary hypertension 09/26/2017 None hypertension [...] data Encounters Encounter Performer Location Codes Date EST. PATIENT, LEVEL IV Diagnosis: Essential (primary) hypertension[ICD10: I10] Diagnosis: Slow transit constipation[ICD10: K59.01] Diagnosis: Chronic pain syndrome[ICD10: G89.4] Teresa Paris MD, [facility] CPT-4: 90324 10/10/2017 [id number] EST. PATIENT, LEVEL IV Diagnosis: 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 deficiency[ ICD10: D51.0] Diagnosis: Essential (primary) hypertension[ICD10: I10] Diagnosis: Chronic pain syndrome[ICD10: G89.4] Teresa Paris MD, [facility] CPT-4: 02824 09/26/2017 [id number] EST. PATIENT, LEVEL III Diagnosis: Dysphagia, pharyngoesophageal phase[ICD10: R13.14] Teresa Paris MD, [facility] CPT-4: 68247 08/16/2017 ([id number]) [id number] EST. PATIENT, LEVEL IV Diagnosis: Essential (primary) hypertension[ICD10: I10] Diagnosis: Chronic pain syndrome[ICD10: G89.4] Diagnosis: 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 deficiency[ ICD10: D51.0] Diagnosis: Iron deficiency anemia, unspecified[ICD10: D50.9] Diagnosis: Dysphagia, pharyngoesophageal phase[ICD10: R13.14] Ana Paris MD, [facility] CPT-4: 83071 07/18/2017 ([id number]) 58837 EST. PATIENT, LEVEL III Diagnosis: Essential (primary) hypertension[ICD10: I10] Diagnosis: Chronic pain syndrome[ICD10: G89.4] Diagnosis: 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 deficiency[ ICD10: D51.0] Ana Paris MD, [facility] CPT-4: 03899 05/16/2017 ([id number]) 64678 EST. PATIENT, LEVEL III Diagnosis: Essential (primary) hypertension[ICD10: I10] Diagnosis: Chronic pain syndrome[ICD10: G89.4] Diagnosis: 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 deficiency[ ICD10: D51.0] Ana Paris MD, [facility] CPT-4: 14528 03/14/2017 ([id number]) 02051 EST. PATIENT, LEVEL III Diagnosis: Cough[ICD10: R05] Diagnosis: Acute bronchitis, unspecified[ICD10: J20.9] Diagnosis: Chronic pain syndrome[ICD10: G89.4] Diagnosis: 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 deficiency[ ICD10: D51.0] Ana Paris MD, [facility] CPT-4: 18070 01/12/2017 ([id number]) 27601 EST. PATIENT, LEVEL III Diagnosis: Essential (primary) hypertension[ICD10: I10] Diagnosis: Chronic pain syndrome[ICD10: G89.4] Ana Paris MD, [facility] CPT-4: 05031 12/08/2016 ([id number]) 15312 EST. PATIENT, LEVEL III Diagnosis: Essential (primary) hypertension[ICD10: I10] [facility] CPT-4: 88363 11/03/2016 ([id number]) 89684 EST. PATIENT, LEVEL III Diagnosis: Essential (primary) hypertension[ICD10: I10] [facility] CPT-4: 80232 10/06/2016 ([id number]) 11543 EST. PATIENT, LEVEL III Diagnosis: Essential (primary) hypertension[ICD10: I10] Ana Paris MD, [facility] CPT-4: 93602 09/06/2016 ([id number]) 20231 EST. PATIENT, LEVEL III Diagnosis: Essential (primary) hypertension[ICD10: I10] Ana Paris MD, [facility] CPT-4: 43541 08/23/2016 ([id number]) OFFICE VISIT, NEW - LEVEL 4 Diagnosis: Noninfective gastroenteritis and colitis, unspecified[ICD10: K52.9] Diagnosis: 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 deficiency[ ICD10: D51.0] Diagnosis: Iron deficiency anemia, unspecified[ICD10: D50.9] Diagnosis: Chalazion left upper eyelid[ICD10: H00.14] Diagnosis: Elevated blood-pressure reading, without diagnosis of hypertension[ ICD10: R03.0] Andree Paris MD, [facility] CPT-4: 45474 04/26/2016 Plan of Care Planned Activity Notes Codes Status Date Patient Education: Patient Medication Summary Completed 10/10/2017 Appointment: Teresa Bardales WPtel: [address] [place], [place] [phone] (30 min) Complex 09/26/2017 Patient Education: Patient Medication Summary Completed 09/26/2017 Appointment: Teresa Bardales WPtel: [address] [place], [place] [phone] (30 min) Complex 09/19/2017 Referral: External, Ordering Provider Referral Appointment Confirmed 2016 Appointment: Teresa Bardales WPtel: [address] [place], [place] [id number] (30 min) Complex 08/16/2017 Patient Education: Patient Medication Summary Completed 08/16/2017 Care Plan: Referral Order SNOMED-CT : [id number] Pending 08/16/2017 Appointment: Injection 08/10/2017 Patient Education: Patient Medication Summary Completed 08/10/2017 Appointment: Ana Pedraza WPtel: [phone] (30 min) Complex 07/18/2017 Patient Education: Patient Medication Summary Completed 07/18/2017 Appointment: Ana Pedraza WPtel: [address] [place], [place] [phone] (30 min) Complex 05/16/2017 Patient Education: Patient Medication Summary Completed 05/16/2017 Appointment: Ana Pedraza WPtel: [address] [place], [place] [phone] (30 min) Complex 03/14/2017 Patient Education: Patient Medication Summary Completed 03/14/2017 Appointment: Ana Pedraza WPtel: [address] [place], [place] [phone] (30 min) Complex 01/12/2017 Patient Education: Patient Medication Summary Completed 01/12/2017 Appointment: Ana Pedraza WPtel: [address] [place], [place] [phone] MCR - Annual Wellness Visit 12/12/2016 Patient Education: Patient Medication Summary Completed 12/12/2016 Care Plan: [employer] Pending 12/12/2016 Appointment: Ana Pedraza WPtel: [address] [place], [place] [phone] (30 min) Complex 12/08/2016 Patient Education: Patient Medication Summary Completed 12/08/2016 Appointment: Ana Pedraza WPtel: [address] [place], [place] [phone] [place] (30 min) Complex 11/03/2016 Patient Education: Patient Medication Summary Completed 11/03/2016 Appointment: Injection 10/27/2016 Patient Education: Patient Medication Summary Completed 10/27/2016 Appointment: Ana Pedraza WPtel: [facility] [phone] (30 min) Complex 10/06/2016 Patient Education: Patient Medication Summary Completed 10/06/2016 Appointment: [phone] [facility] [phone] (30 min) Complex 09/06/2016 Patient Education: Patient Medication Summary Completed 09/06/2016 Appointment: Ana Pedraza WPtel: [facility] [phone] (15 min) Moderate 08/23/2016 Patient Education: Patient Medication Summary Completed 08/23/2016 Appointment: Injection 07/27/2016 Patient Education: Patient Medication Summary Completed 07/27/2016 Appointment: Andree Paris WPtel: [phone] [place] 04/26/2016 Patient Education: Patient Medication Summary Completed 04/26/2016 Referral: External, Ordering Provider Referral Initiated Instructions No Instructions
[2018-05-23 14:20] VITALS: BP 172/89
--- OUTSIDE RECORDS SUMMARY | 2018-05-23 14:20 | XMS REPORT | CCD ---
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 Name Role Phone PP Unavailable CCM Unavailable Summary Purpose Interface Exchange Insurance Providers Payer name Policy type / Coverage type Covered democrat ID Effective Begin Date Effective End Date WPS Medicare Part B Medicare Part B [id number] Unknown Unknown FOR LIFE WPS Medicare Part B [id number] Unknown Unknown Family history Father Diagnosis Age At Onset No Known Diseases N/A Mother Diagnosis Age At Onset No Known Diseases N/A Social History Social History Element Codes Description Effective Dates Marital status Unknown 04/26/2016 Number of children Unknown 3 04/26/2016 Employment Unknown Retired 04/26/[address]: 1293804 Former smoker Quit 1968 04/26/[address]: 232510 Currently drinks alcohol 04/26/2016 Has the patient [...] morphine ER 30 mg tablet,extended release RxNorm: 770358 1 Tablet(s) PO daily 10/10/2017 11/08/2017 Active hydrochlorothiazide 25 mg tablet RxNorm: 711417 1 Tablet(s) PO daily 10/10/2017 11/08/2017 Active hydrochlorothiazide 12.5 mg tablet RxNorm: 811417 1 Tablet(s) PO daily 09/26/2017 10/25/2017 Active cyanocobalamin (vit B-12) 1,000 mcg/mL injection solution RxNorm: 269786 1 Milliliter(s) Inj 09/26/2017 09/26/2017 Inactive morphine ER 30 mg tablet,extended release RxNorm: 871843 1 Tablet(s) PO daily 09/12/2017 10/09/2017 Inactive cyanocobalamin (vit B-12) 1,000 mcg/mL injection solution RxNorm: 813628 1 Milliliter(s) Inj 08/10/2017 08/10/2017 Inactive morphine ER 30 mg tablet,extended release RxNorm: 995702 1 Tablet(s) PO daily 08/10/2017 09/08/2017 Inactive Vitamin B-12 1,000 mcg/mL injection solution RxNorm: 672652 1 Milliliter(s) Inj month 07/21/2017 No Stop Date Active B12 INJECTIONS MONTHLY cyanocobalamin (vit B-12) 1,000 mcg/mL injection solution RxNorm: 636560 1 Milliliter(s) Inj 07/18/2017 07/18/2017 Inactive morphine ER 30 mg tablet,extended release RxNorm: 041784 1 Tablet(s) PO daily 07/13/2017 08/09/2017 Inactive morphine ER 30 mg tablet,extended release RxNorm: 121565 1 Tablet(s) PO daily 06/15/2017 07/12/2017 Inactive cyanocobalamin (vit B-12) 1,000 mcg/mL injection solution RxNorm: 134721 1 Milliliter(s) Inj 05/16/2017 05/16/2017 Inactive morphine ER 30 mg tablet,extended release RxNorm: 872729 1 Tablet(s) PO daily 04/13/2017 05/12/2017 Inactive cyanocobalamin (vit B-12) 1,000 mcg/mL injection solution RxNorm: 549980 1 Milliliter(s) Inj 03/14/2017 03/14/2017 Inactive morphine ER 30 mg tablet,extended release RxNorm: 887558 1 Tablet(s) PO daily 03/14/2017 04/12/2017 Inactive morphine ER 30 mg tablet,extended release RxNorm: 461319 1 Tablet(s) PO daily 02/13/2017 03/13/2017 Inactive Kenalog 40 mg/mL suspension for injection RxNorm: 1705276 1 Milliliter(s) Inj 01/12/2017 01/12/2017 Inactive cyanocobalamin (vit B-12) 1,000 mcg/mL injection solution RxNorm: 901373 1 Milliliter(s) Inj 01/12/2017 01/12/2017 Inactive Zithromax Z-[place] 250 mg tablet RxNorm: 980637 1 Tablet(s) PO UD 01/12/2017 01/16/2017 Inactive ceftriaxone 500 mg solution for injection RxNorm: 6347671 1 Milliliter(s) Inj 01/12/2017 01/12/2017 Inactive Vitamin B-12 1,000 mcg/mL injection solution RxNorm: 161439 1 Milliliter(s) Inj EVERY OTHER MONTH 01/04/2017 07/20/2017 Inactive lisinopril 20 mg tablet RxNorm: 437460 1 Tablet(s) PO BID 01/0212/27/2017 Active lisinopril 20 mg tablet RxNorm: 571839 1 Tablet(s) PO BID 12/1201/01/2017 Inactive morphine ER 30 mg tablet,extended release RxNorm: 985003 1 Tablet(s) PO daily 12/08/2016 01/06/2017 Inactive lisinopril 20 mg tablet RxNorm: 848965 1 Tablet(s) PO BID 11/0312/11/2016 Inactive morphine ER 30 mg tablet,extended release RxNorm: 283325 1 Tablet(s) PO daily 11/03/2016 12/02/2016 Inactive cyanocobalamin (vit B-12) 1,000 mcg/mL injection solution RxNorm: 306743 1 Milliliter(s) Inj 10/27/2016 10/27/2016 Inactive lisinopril 10 mg tablet RxNorm: 106847 1 Tablet(s) PO BID 10/0611/02/2016 Inactive lisinopril 10 mg tablet RxNorm: 893458 1 Tablet(s) PO daily 11/201610/05/2016 Inactive morphine ER 30 mg tablet,extended release RxNorm: 078116 1 Tablet(s) PO daily 08/18/2016 09/16/2016 Inactive cyanocobalamin (vit B-12) 1,000 mcg/mL injection solution RxNorm: 187696 Milliliter(s) Inj 07/27/2016 07/27/2016 Inactive morphine ER 30 mg tablet,extended release RxNorm: 478358 1 Tablet(s) PO daily 07/21/2016 08/17/2016 Inactive morphine ER 30 mg tablet,extended release RxNorm: 177553 1 Tablet(s) PO daily 06/20/2016 07/19/2016 Inactive morphine ER 30 mg tablet,extended release RxNorm: 604174 1 Tablet(s) PO daily 05/20/2016 06/19/2016 Inactive cyanocobalamin (vit B-12) 1,000 mcg/mL injection solution RxNorm: 894787 1 Milliliter(s) Inj 04/26/2016 04/26/2016 Inactive gentamicin 0.3 % eye drops RxNorm: 744416 2 Drop(s) OPH Q4H 05/02/2016 Inactive Venofer intravenous RxNorm: 01874 intravenous No Start Date Active Vitamin B-12 1,000 mcg/mL injection solution RxNorm: 884290 1 Milliliter(s) Inj EVERY 3 MONTHS No Start Date 01/03/2017 Inactive Claritin 10 mg tablet RxNorm: 490478 1 Tablet(s) PO daily No Start Date 07/17/2017 Inactive morphine ER 30 mg tablet,extended release RxNorm: 099912 1 Tablet(s) PO daily No Start Date 04/25/2016 Inactive Medication Administered Medication Codes Instructions Start Date Status cyanocobalamin (vit B-12) 1,000 mcg/mL injection solution RxNorm: 192189 1Milliliter 09/26/2017 No longer Active cyanocobalamin (vit B-12) 1,000 mcg/mL injection solution RxNorm: 331644 1Milliliter 08/10/2017 No longer Active cyanocobalamin (vit B-12) 1,000 mcg/mL injection solution RxNorm: 444864 1Milliliter 07/18/2017 No longer Active cyanocobalamin (vit B-12) 1,000 mcg/mL injection solution RxNorm: 426699 1Milliliter 05/16/2017 No longer Active cyanocobalamin (vit B-12) 1,000 mcg/mL injection solution RxNorm: 709965 1Milliliter 03/14/2017 No longer Active Kenalog 40 mg/mL suspension for injection RxNorm: 2850478 illiliter 01/12/2017 No longer Active ceftriaxone 500 mg solution for injection RxNorm: 1657767 1Milliliter 01/12/2017 No longer Active cyanocobalamin (vit B-12) 1,000 mcg/mL injection solution RxNorm: 090279 1Milliliter 01/12/2017 No longer Active cyanocobalamin (vit B-12) 1,000 mcg/mL injection solution RxNorm: 004663 1Milliliter 10/27/2016 No longer Active cyanocobalamin (vit B-12) 1,000 mcg/mL injection solution RxNorm: 214986 Milliliter 07/27/2016 No longer Active cyanocobalamin (vit B-12) 1,000 mcg/mL injection solution RxNorm: 207106 1Milliliter 04/26/2016 No longer Active Immunizations Vaccine [...] 33.7 % 07/18/2017 Cbc With Differential Ord2 [place]% 12.3 % 07/18/2017 Cbc With Differential Ord2 [...] 2.90 K/ul 07/18/2017 Cbc With Differential Ord2 [place] ABS# 1.1 K/ul 07/18/2017 Cbc With Differential Ord2 Eos ABS# 0.2 K/ul 07/18/2017 Cbc With Differential Ord2 Baso ABS# 0.0 K/ul 07/18/2017 Comp Metabolic Pus928 NA 140 mEq/L 07/18/2017 Comp Metabolic Seu978 K 4.6 mEq/L 07/18/2017 Comp Metabolic Eno189 CL 105 mEq/L 07/18/2017 Comp Metabolic Cxd383 CO2 29.0 mEq/L 07/18/2017 Comp Metabolic Oug041 ANION GAP 11 07/18/2017 Comp Metabolic Yqo446 GLUCOSE 96 mg/dL 07/18/2017 Comp Metabolic Lud385 Creat 1.0 mg/dL 07/18/2017 Comp Metabolic Yfq194 eGFR 73 ml/min/1.73m2 07/18/2017 Comp Metabolic Xqa672 BUN 12 mg/dL 07/18/2017 Comp Metabolic Uiw374 B/C Ratio 11.7 Ratio 07/18/2017 Comp Metabolic Irq229 CALCIUM 9.2 mg/dL 07/18/2017 Comp Metabolic Lit730 ALK PHOS 74 U/L 07/18/2017 Comp Metabolic Nzl401 AST(SGOT) 29 U/L 07/18/2017 Comp Metabolic Iry903 ALT(SGPT) 16 U/L 07/18/2017 Comp Metabolic Ony107 BILI T 0.7 mg/dL 07/18/2017 Comp Metabolic Ggt239 ALBUMIN 3.7 g/dL 07/18/2017 Comp Metabolic Erw334 TPRO 6.5 g/dL 07/18/2017 Comp Metabolic Qie094 GLOB 2.8 g/dL 07/18/2017 Comp Metabolic Jzp354 A/G Ratio 1.3 Ratio 07/18/2017 Comp Metabolic Ppu457 Osmo 279 mOsmo 07/18/2017 Iron Ord72 Iron 114 ug/dl 07/18/2017 B12 Tzx736 B12 233.00 pg/ml 07/18/2017 Tsh Ord6 hTSH [...] 33.3 pg 12/13/2016 Cbc With Differential Ord2 [place]% 17.9 % 12/13/2016 Cbc With Differential Ord2 [...] 2.71 K/ul 12/13/2016 Cbc With Differential Ord2 [place] ABS# 1.7 K/ul 12/13/2016 Cbc With Differential Ord2 Eos ABS# 0.3 K/ul 12/13/2016 Cbc With Differential Ord2 Baso ABS# 0.0 K/ul 12/13/2016 Comp Metabolic Ghw911 NA 136 mEq/L 12/13/2016 Comp Metabolic Tes700 K 4.7 mEq/L 12/13/2016 Comp Metabolic Oih412 CL 102 mEq/L 12/13/2016 Comp Metabolic Ewe866 CO2 26.0 mEq/L 12/13/2016 Comp Metabolic Rsl558 ANION GAP 13 12/13/2016 Comp Metabolic Wos412 GLUCOSE 87 mg/dL 12/13/2016 Comp Metabolic Lqn006 Creat 0.9 mg/dL 12/13/2016 Comp Metabolic Yvk340 eGFR 83 ml/min/1.73m2 12/13/2016 Comp Metabolic Xht570 BUN 17 mg/dL 12/13/2016 Comp Metabolic Kni983 B/C Ratio 18.3 Ratio 12/13/2016 Comp Metabolic Qxw830 CALCIUM 9.1 mg/dL 12/13/2016 Comp Metabolic Zsm393 ALK PHOS 90 U/L 12/13/2016 Comp Metabolic Him596 AST(SGOT) 22 U/L 12/13/2016 Comp Metabolic Lvq261 ALT(SGPT) 15 U/L 12/13/2016 Comp Metabolic Tfy498 BILI T 0.8 mg/dL 12/13/2016 Comp Metabolic Isw993 ALBUMIN 3.6 g/dL 12/13/2016 Comp Metabolic Vst232 TPRO 6.4 g/dL 12/13/2016 Comp Metabolic Aiz922 GLOB 2.9 g/dL 12/13/2016 Comp Metabolic Wzg819 A/G Ratio 1.2 Ratio 12/13/2016 Comp Metabolic Ago232 Osmo 273 mOsmo 12/13/2016 Lipid Ord30 CHOL 182 mg/dL 12/13/2016 Lipid Ord30 HDL 64.0 mg/dl 12/13/2016 Lipid Ord30 TRIG 62 mg/dL 12/13/2016 Lipid Ord30 LDL 106 mg/dL 12/13/2016 Lipid Ord30 C/HDL 2.8 Ratio 12/13/2016 Ferritin Ord22 FERRITIN 434.7 ng/mL 12/13/2016 B12 Yxr918 B12 247.00 pg/ml 12/13/2016 Tibc Ord40 Iron [...] 33.7 pg 04/27/2016 Cbc With Differential Ord2 [place]% 13.7 % 04/27/2016 Cbc With Differential Ord2 [...] 3.22 K/ul 04/27/2016 Cbc With Differential Ord2 [place] ABS# 1.2 K/ul 04/27/2016 Cbc With Differential Ord2 Eos ABS# 0.3 K/ul 04/27/2016 Cbc With Differential Ord2 Baso ABS# 0.0 K/ul 04/27/2016 Comp Metabolic Igl043 NA 138 mEq/L 04/27/2016 Comp Metabolic Mcx887 K 4.3 mEq/L 04/27/2016 Comp Metabolic Plc043 CL 104 mEq/L 04/27/2016 Comp Metabolic Ukf099 CO2 30.0 mEq/L 04/27/2016 Comp Metabolic Paq811 ANION GAP 8 04/27/2016 Comp Metabolic Tix101 GLUCOSE 87 mg/dL 04/27/2016 Comp Metabolic Haj317 Creat 0.9 mg/dL 04/27/2016 Comp Metabolic Boc047 eGFR 82 ml/min/1.73m2 04/27/2016 Comp Metabolic Fqh753 BUN 13 mg/dL 04/27/2016 Comp Metabolic Kzl764 B/C Ratio 13.8 Ratio 04/27/2016 Comp Metabolic Ccn504 CALCIUM 9.0 mg/dL 04/27/2016 Comp Metabolic Ljd772 ALK PHOS 62 U/L 04/27/2016 Comp Metabolic Vxy179 AST(SGOT) 24 U/L 04/27/2016 Comp Metabolic Psh688 ALT(SGPT) 15 U/L 04/27/2016 Comp Metabolic Wjo166 BILI T 0.7 mg/dL 04/27/2016 Comp Metabolic Roe005 ALBUMIN 3.6 g/dL 04/27/2016 Comp Metabolic Nro465 TPRO 6.1 g/dL 04/27/2016 Comp Metabolic Cco447 GLOB 2.5 g/dL 04/27/2016 Comp Metabolic Djd125 A/G Ratio 1.4 Ratio 04/27/2016 Comp Metabolic Ldm117 Osmo 275 mOsmo 04/27/2016 B12 Wkg809 B12 >1500.00 pg/ml 04/27/2016 Iron Ord72 Iron [...] Procedure Codes Date THER/PROPH/DIAG INJ SC/IM CPT-4: 17988 09/26/2017 VITAMIN B12 INJECTION CPT-4: J3420 09/26/2017 THER/PROPH/DIAG INJ SC/IM CPT-4: 07429 08/10/2017 VITAMIN B12 INJECTION CPT-4: J3420 08/10/2017 THER/PROPH/DIAG INJ SC/IM CPT-4: 77294 07/18/2017 VITAMIN B12 INJECTION CPT-4: J3420 07/18/2017 THER/PROPH/DIAG INJ SC/IM CPT-4: 19433 05/16/2017 VITAMIN B12 INJECTION CPT-4: J3420 05/16/2017 THER/PROPH/DIAG INJ SC/IM CPT-4: 70135 03/14/2017 VITAMIN B12 INJECTION CPT-4: J3420 03/14/2017 TRIAMCINOLONE ACET INJ NOS CPT-4: J3301 01/12/2017 ROCEPHIN, PER 250 MG CPT-4: J0696 01/12/2017 VITAMIN B12 INJECTION CPT-4: J3420 01/12/2017 THER/PROPH/DIAG INJ SC/IM CPT-4: 39201 01/12/2017 PPPS, SUBSEQ VISIT CPT -4: G0439 12/12/2016 PNEUMOCOCCAL VACC [address]: 46733593 CPT-4: 93514 12/12/2016 ADMIN PNEUMOCOCCAL VACCINE SNOMED CT: 37485198 CPT-4: G0009 12/12/2016 THER/PROPH/DIAG INJ SC/IM CPT-4: 33903 10/27/2016 VITAMIN B12 INJECTION CPT-4: J3420 10/27/2016 THER/PROPH/DIAG INJ SC/IM CPT-4: 48753 07/27/2016 VITAMIN B12 INJECTION CPT-4: J3420 07/27/2016 THER/PROPH/DIAG INJ SC/IM CPT-4: 42663 04/26/2016 VITAMIN B12 INJECTION CPT-4: J3420 04/26/2016 Vital Signs Date Vital 10/10/2017 Blood Pressure 1: 156/76 Code : 8480-6 BMI: 24.7 Code : 90608-0 Heart Rate 1 : 71 bpm Height: 5'7" SpO2: 98% Weight: 158 lbs 09/26/2017 Blood Pressure 1: 162/82 Code : 8480-6 BMI: 24.7 Code : 82315-1 Heart Rate 1 : 69 bpm Height: 5'7" SpO2: 99% Weight: 158 lbs 08/16/2017 Blood Pressure 1: 154/82 Code : 8480-6 BMI: 24.1 Code : 19440-0 Heart Rate 1 : 58 bpm Height: 5'7" SpO2: 96% Weight: 154 lbs 07/18/2017 Blood Pressure 1: 152/88 Code : 8480-6 BMI: 25.2 Code : 34331-5 Heart Rate 1 : 72 bpm Height: 5'7" SpO2: 98% Weight: 161 lbs 05/16/2017 Blood Pressure 1: 136/78 Code : 8480-6 BMI: 24.8 Code : 77131-1 Heart Rate 1 : 71 bpm Height: 5'7" SpO2: 96% Weight: 158 lbs 8 oz 03/14/2017 Blood Pressure 1: 142/74 Code : 8480-6 BMI: 23.8 Code : 16169-6 Heart Rate 1 : 69 bpm Height: 5'7" SpO2: 94% Weight: 152 lbs 01/12/2017 Blood Pressure 1: 156/90 Code : 8480-6 BMI: 23.4 Code : 24785-6 Heart Rate 1 : 90 bpm Height: 5'7" SpO2: 97% Temperature: 37.4 (C) / 99.3 (F) Weight: 149 lbs 8 oz 12/12/2016 Blood Pressure 1: 140/78 Code : 8480-6 BMI: 24.3 Code : 18562-5 Heart Rate 1 : 73 bpm Height: 5'7" SpO2: 96% Waist Measure (cm): 90 cm Weight: 155 lbs 12/08/2016 Blood Pressure 1: 148/84 Code : 8480-6 BMI: 24.3 Code : 71212-6 Heart Rate 1 : 80 bpm Height: 5'7" SpO2: 96% Weight: 155 lbs 11/03/2016 Blood Pressure 1: 156/84 Code : 8480-6 Blood Pressure 2: 155/94 Code: 8480-6 BMI: 24.3 Code: 87585-9 Heart Rate 1: 81 bpm Height: 5'7" SpO2: 98% Weight: 155 lbs 10/06/2016 Blood Pressure 1: 175/95 Code : 8480-6 Heart Rate 1: 77 bpm Respiratory Rate : 16 bpm SpO2: 98% Temperature: 36.4 (C) / 97.5 (F) Weight: 157 lbs 09/06/2016 Blood Pressure 1: 136/80 Code : 8480-6 BMI: 24.1 Code : 10318-4 Heart Rate 1 : 82 bpm Height: 5'8" SpO2: 97% Weight: 156 lbs 08/23/2016 Blood Pressure 1: 160/80 Code : 8480-6 BMI: 24.4 Code : 45623-7 Heart Rate 1 : 88 bpm Height: 5'8" SpO2: 95% Weight: 158 lbs 04/26/2016 Blood Pressure 1: 156/74 Code : 8480-6 BMI: 24.5 Code : 99712-0 Heart Rate 1 : 70 bpm Height: [...] Chronic pain syndrome[ICD10: G89.4] Teresa Paris MD, [facility] CPT-4: 85278 10/10/2017 26551 EST. PATIENT, LEVEL IV Diagnosis: 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 deficiency[ ICD10: D51.0] Diagnosis: Essential (primary) hypertension[ICD10: I10] Diagnosis: Chronic pain syndrome[ICD10: G89.4] Teresa Paris MD, [facility] CPT-4: 18641 09/26/2017 76127 EST. PATIENT, LEVEL III Diagnosis: Dysphagia, pharyngoesophageal phase[ICD10: R13.14] Teresa Paris MD, [facility] CPT-4: 41613 08/16/2017 ([id number]) 30405 EST. PATIENT, LEVEL IV Diagnosis: Essential (primary) hypertension[ICD10: I10] Diagnosis: Chronic pain syndrome[ICD10: G89.4] Diagnosis: 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 deficiency[ ICD10: D51.0] Diagnosis: Iron deficiency anemia, unspecified[ICD10: D50.9] Diagnosis: Dysphagia, pharyngoesophageal phase[ICD10: R13.14] Ana Paris MD, [facility] CPT-4: 98762 07/18/2017 ([id number]) 52152 EST. PATIENT, LEVEL III Diagnosis: Essential (primary) hypertension[ICD10: I10] Diagnosis: Chronic pain syndrome[ICD10: G89.4] Diagnosis: 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 deficiency[ ICD10: D51.0] Ana Paris MD, [facility] CPT-4: 55938 05/16/2017 ([id number]) 34319 EST. PATIENT, LEVEL III Diagnosis: Essential (primary) hypertension[ICD10: I10] Diagnosis: Chronic pain syndrome[ICD10: G89.4] Diagnosis: 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 deficiency[ ICD10: D51.0] Ana Paris MD, [facility] CPT-4: 08132 03/14/2017 ([id number]) 51581 EST. PATIENT, LEVEL III Diagnosis: Cough[ICD10: R05] Diagnosis: Acute bronchitis, unspecified[ICD10: J20.9] Diagnosis: Chronic pain syndrome[ICD10: G89.4] Diagnosis: 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 deficiency[ ICD10: D51.0] Ana Paris MD, [facility] CPT-4: 25200 01/12/2017 ([id number]) 24809 EST. PATIENT, LEVEL III Diagnosis: Essential (primary) hypertension[ICD10: I10] Diagnosis: Chronic pain syndrome[ICD10: G89.4] Ana Paris MD, [facility] CPT-4: 36538 12/08/2016 ([id number]) 38700 EST. PATIENT, LEVEL III Diagnosis: Essential (primary) hypertension[ICD10: I10] [facility] CPT-4: 54181 11/03/2016 ([id number]) 10178 EST. PATIENT, LEVEL III Diagnosis: Essential (primary) hypertension[ICD10: I10] [facility] CPT-4: 72179 10/06/2016 ([id number]) 27559 EST. PATIENT, LEVEL III Diagnosis: Essential (primary) hypertension[ICD10: I10] Ana Paris MD, [facility] CPT-4: 60445 09/06/2016 ([id number]) 60168 EST. PATIENT, LEVEL III Diagnosis: Essential (primary) hypertension[ICD10: I10] Ana Paris MD, [facility] CPT-4: 27995 08/23/2016 ([id number]) OFFICE VISIT, [facility] - LEVEL 4 Diagnosis: Noninfective gastroenteritis and colitis, unspecified[ICD10: K52.9] Diagnosis: 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 deficiency[ ICD10: D51.0] Diagnosis: Iron deficiency anemia, unspecified[ICD10: D50.9] Diagnosis: Chalazion left upper eyelid[ICD10: H00.14] Diagnosis: Elevated blood-pressure reading, without diagnosis of hypertension[ ICD10: R03.0] Andree Paris MD, [facility] CPT-4: 83027 04/26/2016 Plan of Care Planned Activity Notes Codes Status Date Appointment: Teresa Bardales WPtel: [address] [place], [place] [phone] (30 min) Complex 10/10/2017 Patient Education: Patient Medication Summary Completed 10/10/2017 Appointment: Teresa Bardales WPtel: [address] [place], [place] [address] (30 min) Complex 09/26/2017 Patient Education: Patient Medication Summary Completed 09/26/2017 App[facility]ment: [facility] ([facility] min) Complex 09/19/2017 Referral: External, Ordering Provider Referral Appointment Confirmed 2016 Appointment: [facility] [phone] [facility] ([facility] min) Complex 08/16/2017 Patient Education: Patient Medication Summary Completed 08/16/2017 Care Plan: Referral Order SNOMED-CT : [id number] Pending 08/16/2017 Appointment: Injection 08/10/2017 Patient Education: Patient Medication Summary Completed 08/10/2017 Appointment: Ana Pedraza WPtel: [phone] (30 min) Complex 07/18/2017 Patient Education: Patient Medication Summary Completed 07/18/2017 Appointment: Ana Pedraza WPtel: [phone] (30 min) Complex 05/16/2017 Patient Education: Patient Medication Summary Completed 05/16/2017 Appointment: Ana Pedraza WPtel: [phone] (30 min) Complex 03/14/2017 Patient Education: Patient Medication Summary Completed 03/14/2017 Appointment: Ana Pedraza WPtel: [phone] (30 min) Complex 01/12/2017 Patient Education: Patient Medication Summary Completed 01/12/2017 Appointment: [facility]el[phone] MCR - Annual Wellness Visit 12/12/2016 Patient Education: Patient Medication Summary Completed 12/12/2016 Care Plan: Iron And Tibc Pending 12/12/2016 Appointment: Ana Pedraza WPtel: [phone] [place] (30 min) Complex 12/08/2016 Patient Education: Patient Medication Summary Completed 12/08/2016 Appointment: Ana Pedraza WPtel: [phone] [place] (30 min) Complex 11/03/2016 Patient Education: Patient Medication Summary Completed 11/03/2016 Appointment: Injection 10/27/2016 Patient Education: Patient Medication Summary Completed 10/27/2016 Appointment: Ana Pedraza WPtel: [phone] (30 min) Complex 10/06/2016 Patient Education: Patient Medication Summary Completed 10/06/2016 Appointment: Ana Pedraza WPtel: [phone] (30 min) Complex 09/06/2016 Patient Education: Patient Medication Summary Completed 09/06/2016 Appointment: Ana Pedraza WPtel: [phone] (15 min) Moderate 08/23/2016 Patient Education: Patient Medication Summary Completed 08/23/2016 Appointment: Injection 07/27/2016 Patient Education: Patient Medication Summary Completed 07/27/2016 [facility]ment[facility] [facility] 04/26/2016 Patient Education: Patient Medication Summary Completed 04/26/2016 Referral: External, Ordering Provider Referral Initiated Instructions No Instructions
--- OUTSIDE RECORDS SUMMARY | 2018-05-23 14:20 | XMS REPORT | Continuity of Care Document ---
Author Author [facility] Address Unknown Phone Unavailable Allergies Active Description Code Type Severity Reaction Onset Reported/Identified Relationship to Patient Clinical Status Yes ibuprofen [id number] Drug Allergy Unknown RASH 05/07/2009 Medications There is no data. 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 08/15/2017 ISAIAS HUNTP Ot K22.4 DYSKINESIA OF ESOPHAGUS 08/15/2017 ISAIAS HUNTP Ot 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 08/21/2017 BETTYE ROJAS DO Ot K21.9 GASTRO-ESOPHAGEAL REFLUX DISEASE WITHOUT 08/21/2017 BETTYE ROJAS DO Ot Z01.818 ENCOUNTER FOR OTHER PREPROCEDURAL EXAMIN 08/24/2017 BETTYE ROJAS DO Ot I10 ESSENTIAL (PRIMARY) HYPERTENSION 08/24/2017 BETTYE ROJAS DO Ot K29.70 GASTRITIS, UNSPECIFIED, WITHOUT BLEEDING 08/24/2017 BETTYE ROJAS DO Ot R13.10 DYSPHAGIA, UNSPECIFIED 08/24/2017 BETTYE ROJAS DO Ot Z79.899 OTHER ROLLER SKATER (CURRENT) DRUG THERAPY 09/06/2017 ISAIAS HUNT Ot K22.4 DYSKINESIA OF ESOPHAGUS 09/06/2017 ISAIAS HUNT Ot 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 Results There is no data. Encounters ACCT No. Visit Date/Time Discharge Status Pt. Type Provider Facility Loc./Unit Complaint [id number] 09/16/2013 10:12:00 09/16/2013 23:59:59 CLS Outpatient EVA ROSEMARIE K [id number] 07/13/2017 23:10:15 07/13/2017 23:59:59 CLS Outpatient [id number] 04/07/2015 09:27:50 ACT Document Registration [id number] 08/10/2017 12:40:00 08/10/2017 23:59:59 CLS Outpatient GI [facility] [id number] 08/24/2017 06:37:00 08/24/2017 10:00:00 DIS Outpatient CRYSTAL OLGUIN BETTYE Amarilis [facility] ENDO DYSPHAGIA [id number] 08/18/2017 05:46:00 08/18/2017 14:37:00 DIS Outpatient CRYSTAL OLGUIN BETTYE Olmos [facility] PREOP EGD [id number] 07/24/2017 10:35:00 07/24/2017 23:59:59 CLS Outpatient ISAIAS HUNT [facility] RAD R13.14 [id number] 10/12/2016 10:10:00 10/12/2016 23:59:59 CLS Outpatient ISAIAS HUNT [facility] SDC IRON DEFICIENCY ANEMIA [id number] 01/12/2016 09:01:00 01/12/2016 23:59:59 CLS Outpatient LIZETTE MANCILLA MD [facility] [id number] 04/07/2015 09:25:00 04/07/2015 23:59:59 CLS Outpatient LIZETTE MANCILLA MD [facility] [id number] 07/21/2014 09:49:00 07/21/2014 23:59:59 CLS Outpatient LIZETTE MANCILLA MD [facility] [id number] 10/10/2013 09:27:00 10/10/2013 23:59:59 CLS Outpatient [id number] 01/03/2013 09:22:00 01/03/2013 23:59:59 CLS Outpatient
[2018-05-23] MEDS ORDERED: AMLO5TAB7 PO (14:39)
[2018-05-23] MEDS ORDERED: ONDANSETRON 4 MG/2 ML (SDV) Z0FRAN ONE (14:50)
[2018-05-23] MEDS ORDERED: proPOfol 200 MG/20 ML (DIPRIVAN) VIAL IV ONE (14:52)
[2018-05-23] MEDS ORDERED: fentaNYL INJECTION 100 MCG/2 ML AMP ONE (14:52)
[2018-05-23] MEDS ORDERED: LIDOCAINE PF 2% 2 ML (XYLOCAINE) VIAL ONE (14:53)
[2018-05-23] MEDS ORDERED: SUCCINYLCHOLINE INJ 100 MG/5 ML SYR ONE (14:54)
[2018-05-23] MEDS ORDERED: LACTATED RINGERS 1,000 ML IV PRN (14:56)
[2018-05-23] MEDS ORDERED: LACTATED RINGERS 1,000 ML IV STA (14:58)
[2018-05-23] MEDS ORDERED: MIDAZOLAM 2 MG/2 ML (VERSED) VIAL ONE (14:59)
[2018-05-23] MEDS ORDERED: HURRICAINE EXT TUBE (BENZOCAINE) XX PRN (15:00)
[2018-05-23] MEDS ORDERED: ONDANSETRON 4 MG/2 ML (SDV) Z0FRAN IV ONE (15:00)
[2018-05-23] MEDS ORDERED: FAMOTIDINE 20MG/2ML IV (PEPCID) IV ONE (15:00)
--- NOTE | 2018-05-23 15:35 | Progress Note-Post Operative ---
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
[2018-05-23] MEDS ORDERED: SEVOFLURANE (ULTANE) 15 ML INHAL SOLN ONE (15:36)
--- NOTE | 2018-05-23 15:37 | Endoscopy Discharge Instruct ---
Endo Procedure/Findings Findings 1.: Other Findings (Food Bolus) Discharge Instructions - Activity: You might feel a little sleepy until tomorrow. This is due to the medicine you received to relax you. Until tomorrow, you should: NOT drive a car, operate machinery or power tools. NOT drink any alcoholic beverages. NOT make any important decisions or sign importortant papers. Do not return to work until tomorrow, unless otherwise instructed. Resume previous activities tomorrow. Diet: Start by taking liquids. If you tolerate liquids, advance to solid food. Make an appointment for 05/29 Notify Physician - If you experience excessive bleeding, unusual abdominal pain, fever, or chest pain, contact your doctor immediately. Follow-Up: - I have received and understand the above instructions and will call my doctor if I have any further questions. Patient Signature Date Nurse Signature Other (Relationship) BETTYE ROJAS DO May 23, 2018 15:37
--- NOTE | 2018-05-23 16:11 | Anesthesia-General Post-Op ---
General Patient Condition Mental Status/LOC: Same as Preop Cardiovascular: Satisfactory Nausea/Vomiting: Absent Respiratory: Satisfactory Pain: Controlled Complications: Absent Post Op Complications Complications None Follow Up Care/Instructions Patient Instructions None needed. Anesthesia/Patient Condition Patient Condition Patient is doing well, no complaints, stable vital signs, no apparent adverse anesthesia problems. No complications reported per nursing. RAIN YIP CRNA May 23, 2018 16:11
[2018-05-23 16:40] VITALS: BP 168/74
[2018-05-23 17:07] VITALS: BP 157/84
[2018-05-23 17:09] VITALS: BP 157/84
--- NOTE | 2018-05-24 00:34 | OPERATIVE REPORT ---
DATE OF SERVICE: PREOPERATIVE DIAGNOSES: Dysphagia, nausea, vomiting. POSTOPERATIVE DIAGNOSES: 1. Food bolus stuck in esophagus. 2. Dysphagia. PROCEDURE: EGD with removal of food bolus. SURGEON: Krish Rojas DO. COP WINDER: None. ANESTHESIA: General endotracheal tube. SPECIMENS: None. BLOOD LOSS: None. FLUIDS: Per anesthesia. POSTOPERATIVE CONDITION: Stable. INDICATION FOR PROCEDURE: The patient is an 83-year-old male who presented to my office with complaints of inability to swallow or take in any food or drink. He looked ill, was spitting up, sitting forward. He was sent urgently over for an EGD because of dysphagia, possible food bolus. FINDINGS: The patient had a piece of steak stuck at the distal portion of the esophagus. PROCEDURE NOTE: After informed consent was obtained, the patient was brought to the endoscopy suite. He was placed in bed in the supine position. He was intubated by the [facility] [place]. I then inserted a scope down the mouth through the esophagus and down toward the stomach. Upon getting to the bottom portion, saw some murky fluid, suctioned this out and then able to visualize a piece of what looked like possibly steak, deployed a Hong basket, able to get around the upper portion of this steak and then pull it tight and then able to carefully pull this out of the esophagus and out the mouth. We did not send this to pathology. This was thrown away, then reinserted the scope down the mouth through the esophagus and again entered right into the jejunum. A picture was taken. There was some irritation at what would have been the GE junction and also at least the distal portion of the esophagus. No other signs of stricture, no ulceration seen. A picture was taken and then the scope was removed. The patient tolerated the procedure. He was recovered in the endoscopy suite. Job ID: [id number] DocumentID: [id number] Dictated Date: 05/23/2018 21:19:54 Sub Plant Manager Date: 05/24/2018 00:33:24 Dictated By: KRISH ROJAS DO
== END 2018-05-23 17:10 | disposition home or self-care (01) ==
LOC: ENDO 14:06
PROVIDERS: ATTEND Surgery
DX: T18.128A Food in esophagus causing other injury, initial encounter (principal); R13.10 Dysphagia, unspecified; I10 Essential (primary) hypertension; H91.90 Unspecified hearing loss, unspecified ear; Z87.891 Personal history of nicotine dependence; Z79.899 Other long term (current) drug therapy

== ENCOUNTER 2019-02-07 05:38 | Outpatient (CLI) | payer MEDICARE, OTHER ==
[~2019-02-07] VITALS: Ht 180.3 cm; Wt 70.3 kg
[~2019-02-07 05:38] MED LIST changes: +AMLO5TAB9 PO
== END 2019-02-07 12:06 | disposition home or self-care (01) ==
LOC: PREOP 05:38
PROVIDERS: ATTEND Surgery
DX: Z01.818 Encounter for other preprocedural examination (principal)

== ENCOUNTER 2019-02-13 09:04 | Day surgery (SDC) | payer MEDICARE, OTHER ==
[2019-02-13] VITALS (7 sets, daily range): BP systolic 99–183; BP diastolic 66–89
[~2019-02-13] VITALS: Ht 180.3 cm; Wt 70.3 kg
--- OUTSIDE RECORDS SUMMARY | 2019-02-13 09:07 | XMS REPORT | Clinical Summary ---
Author Author [facility] Organization [facility] Address Unknown Phone Unavailable Care Team Providers Care Transportation Security Screener Name Role Phone PCP Unavailable Allergies Not on File Current Medications Not on file Active Problems Not on file Social History Tobacco Use Types Packs/Day Years Used Date Never Assessed Sex Assigned at Date Recorded Not on file Last Filed Vital Signs Not on file Plan of Treatment Not on file Results Not on filefrom Last 3 Months
--- OUTSIDE RECORDS SUMMARY | 2019-02-13 09:10 | XMS REPORT | CCD ---
Author Author [facility] Organization [facility] Address [address] [place] [address] Phone Care Team Providers Care Speech Therapist Name Role Phone PP Unavailable CCM Unavailable Summary Purpose Interface Exchange Insurance Providers Payer name Policy type / Coverage type Covered democrat ID Effective Begin Date Effective End Date WPS Medicare Part B Medicare Part B [id number] Unknown Unknown FOR LIFE WPS Medicare Part B [id number] Unknown Unknown Family history Father Diagnosis Age At Onset No Known Diseases N/A Mother Diagnosis Age At Onset No Known Diseases N/A Social History Social History Element Codes Description Effective Dates Marital status Unknown 04/26/2016 Number of children Unknown 3 04/26/2016 Employment Unknown Retired 04/26/[address]: 5165328 Former smoker Quit 1968 04/26/[address]: 100107 Currently drinks alcohol 04/26/2016 Has the patient ever used illegal drugs? Unknown Has never used illegal drugs 04/26/2016 Allergies, Adverse Reactions, Alerts Substance Reaction Codes Entered Date Inactivated Date Status ibuprofen rash RxNorm: 5640 04/26/2016 No Inactive Date Active Past Medical History Illness Codes Condition Status Onset Date Resolved Date Sebaceous cyst ICD-9: 706.2 ICD-10: L72.3 Active 01/08/2019 Unknown 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-9: 281.0 ICD-10: D51.0 Active 07/26/2016 Unknown Chronic pain syndrome ICD- 9: 338.4 ICD-10: G89.4 Active 12/08/2016 Unknown Epigastric pain ICD-9: 789.06 ICD-10: R10.13 Active 11/19/2018 Unknown Essential (primary) hypertension ICD-9: 401.1 ICD-10: I10 Active 09/05/2016 Unknown Encounter for immunization ICD-9: V03.89 ICD-10: Z23 Active 12/12/2016 Unknown Dysphagia, pharyngoesophageal phase ICD-9: 787.24 ICD-10: R13.14 Active 07/18/2017 Unknown Iron deficiency anemia, unspecified ICD-9: 280.9 ICD-10: D50.9 Active 04/25/2016 Unknown Slow transit constipation ICD-9: 564.01 ICD-10: K59.01 Active 10/10/2017 Unknown Encounter for general adult medical examination with abnormal findings ICD-9: V70.0 ICD-10: Z00.01 Active 12/12/2016 Unknown Acute bronchitis, unspecified ICD-9: 466.0 ICD-10: J20.9 Active 01/12/2017 Unknown Cough ICD-9: 786.2 ICD-10: R05 Active 01/12/2017 Unknown Chalazion left upper eyelid ICD-9: 373.2 ICD-10: H00.14 Active 04/25/2016 Unknown Elevated blood-pressure reading, without diagnosis of hypertension ICD-9: 796.2 ICD-10: R03.0 Active 04/25/2016 Unknown Noninfective gastroenteritis and colitis, unspecified ICD-9: 787.91 ICD-10: K52.9 Active 04/25/2016 Unknown Problems Condition Codes Effective Dates Condition Status Sebaceous cyst ICD-9: 706.2 ICD-10: L72.3 01/08/2019 Active 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-9: 281.0 ICD-10: D51.0 07/26/2016 Active Chronic pain syndrome ICD- 9: 338.4 ICD-10: G89.4 12/08/2016 Active Epigastric pain ICD-9: 789.06 ICD-10: R10.13 11/19/2018 Active Essential (primary) hypertension ICD-9: 401.1 ICD-10: I10 09/05/2016 Active Encounter for immunization ICD-9: V03.89 ICD-10: Z23 12/12/2016 Active Dysphagia, pharyngoesophageal phase ICD-9: 787.24 ICD-10: R13.14 07/18/2017 Active Iron deficiency anemia, unspecified ICD-9: 280.9 ICD-10: D50.9 04/25/2016 Active Slow transit constipation ICD-9: 564.01 ICD-10: K59.01 10/10/2017 Active Encounter for general adult medical examination with abnormal findings ICD-9: V70.0 ICD-10: Z00.01 12/12/2016 Active Acute bronchitis, unspecified ICD-9: 466.0 ICD-10: J20.9 01/12/2017 Active Cough ICD-9: 786.2 ICD-10: R05 01/12/2017 Active Chalazion left upper eyelid ICD-9: 373.2 ICD-10: H00.14 04/25/2016 Active Elevated blood-pressure reading, without diagnosis of hypertension ICD-9: 796.2 ICD-10: R03.0 04/25/2016 Active Noninfective gastroenteritis and colitis, unspecified ICD-9: 787.91 ICD-10: K52.9 04/25/2016 Active Medications Medication Codes Instructions Start Date Stop Date Status Fill Instructions doxycycline hyclate 100 mg tablet RxNorm: 0286409 1 Tablet(s) PO BID 01/08/2019 01/14/2019 Active morphine ER 30 mg tablet,extended release RxNorm: 319648 1 Tablet(s) PO daily 12/27/2018 01/25/2019 Active cyanocobalamin (vit B-12) 1,000 mcg/mL injection solution RxNorm: 487021 Milliliter(s) Inj 12/27/2018 12/27/2018 Inactive cyanocobalamin (vit B-12) 1,000 mcg/mL injection solution RxNorm: 168436 Milliliter(s) Inj 11/29/2018 11/29/2018 Inactive morphine ER 30 mg tablet,extended release RxNorm: 521635 1 Tablet(s) PO daily 10/29/2018 11/27/2018 Inactive cyanocobalamin (vit B-12) 1,000 mcg/mL injection solution RxNorm: 080629 Milliliter(s) Inj 10/29/2018 10/29/2018 Inactive cyanocobalamin (vit B-12) 1,000 mcg/mL injection solution RxNorm: 823950 Milliliter(s) Inj 09/28/2018 09/28/2018 Inactive morphine ER 30 mg tablet,extended release RxNorm: 591142 1 Tablet(s) PO daily 09/28/2018 10/27/2018 Inactive morphine ER 30 mg tablet,extended release RxNorm: 070011 1 Tablet(s) PO daily 08/30/2018 09/27/2018 Inactive cyanocobalamin (vit B-12) 1,000 mcg/mL injection solution RxNorm: 466982 Milliliter(s) Inj 08/30/2018 08/30/2018 Inactive cyanocobalamin (vit B-12) 1,000 mcg/mL injection solution RxNorm: 773600 Milliliter(s) Inj 07/31/2018 07/31/2018 Inactive morphine ER 30 mg tablet,extended release RxNorm: 351510 1 Tablet(s) PO daily 07/31/2018 08/29/2018 Inactive amlodipine 5 mg tablet RxNorm: 729849 1 Tablet(s) PO QPM 07/11/2018 01/06/2019 Inactive cyanocobalamin (vit B-12) 1,000 mcg/mL injection solution RxNorm: 197884 1 Milliliter(s) Inj 07/02/2018 07/02/2018 Inactive morphine ER 30 mg tablet,extended release RxNorm: 825755 1 Tablet(s) PO daily 07/02/2018 07/30/2018 Inactive morphine ER 30 mg tablet,extended release RxNorm: 377358 1 Tablet(s) PO daily 05/31/2018 06/29/2018 Inactive cyanocobalamin (vit B-12) 1,000 mcg/mL injection solution RxNorm: 756024 Milliliter(s) Inj 05/31/2018 05/31/2018 Inactive Protonix 40 mg tablet,delayed release RxNorm: 646357 1 Tablet(s) PO daily 05/23/2018 06/21/2018 Inactive Carafate 1 gram tablet RxNorm: 391972 1 Tablet(s) PO AC & HS as needed 05/23/2018 06/21/2018 Inactive cyanocobalamin (vit B-12) 1,000 mcg/mL injection solution RxNorm: 588237 1 Milliliter(s) Inj 05/03/2018 05/03/2018 Inactive morphine ER 30 mg tablet,extended release RxNorm: 170292 1 Tablet(s) PO daily 04/04/2018 05/03/2018 Inactive cyanocobalamin (vit B-12) 1,000 mcg/mL injection solution RxNorm: 206961 1 Milliliter(s) Inj 04/04/2018 04/04/2018 Inactive cyanocobalamin (vit B-12) 1,000 mcg/mL injection solution RxNorm: 630146 1 Milliliter(s) Inj 03/05/2018 03/05/2018 Inactive morphine ER 30 mg tablet,extended release RxNorm: 487282 1 Tablet(s) PO daily 03/05/2018 04/03/2018 Inactive cyanocobalamin (vit B-12) 1,000 mcg/mL injection solution RxNorm: 016299 1 Milliliter(s) Inj 01/30/2018 01/30/2018 Inactive cyanocobalamin (vit B-12) 1,000 mcg/mL injection solution RxNorm: 729141 1 Milliliter(s) Inj 01/01/2018 01/01/2018 Inactive morphine ER 30 mg tablet,extended release RxNorm: 917246 1 Tablet(s) PO daily 01/01/2018 01/30/2018 Inactive lisinopril 20 mg tablet RxNorm: 443955 1 Tablet(s) PO BID 12/18/2017 12/12/2018 Inactive amlodipine 5 mg tablet RxNorm: 012696 1 Tablet(s) PO QPM 12/18/2017 06/15/2018 Inactive cyanocobalamin (vit B-12) 1,000 mcg/mL injection solution RxNorm: 004428 1 Milliliter(s) Inj 11/28/2017 11/28/2017 Inactive morphine ER 30 mg tablet,extended release RxNorm: 602285 1 Tablet(s) PO daily 11/28/2017 12/27/2017 Inactive morphine ER 30 mg tablet,extended release RxNorm: 451444 1 Tablet(s) PO daily 11/09/2017 11/27/2017 Inactive cyanocobalamin (vit B-12) 1,000 mcg/mL injection solution RxNorm: 230627 1 Milliliter(s) Inj 10/24/2017 10/24/2017 Inactive morphine ER 30 mg tablet,extended release RxNorm: 703977 1 Tablet(s) PO daily 10/10/2017 11/08/2017 Inactive hydrochlorothiazide 25 mg tablet RxNorm: 933336 1 Tablet(s) PO daily 10/10/2017 11/08/2017 Inactive cyanocobalamin (vit B-12) 1,000 mcg/mL injection solution RxNorm: 794389 1 Milliliter(s) Inj 09/26/2017 09/26/2017 Inactive hydrochlorothiazide 12.5 mg tablet RxNorm: 990967 1 Tablet(s) PO daily 09/26/2017 10/25/2017 Inactive morphine ER 30 mg tablet,extended release RxNorm: 714720 1 Tablet(s) PO daily 09/12/2017 10/09/2017 Inactive cyanocobalamin (vit B-12) 1,000 mcg/mL injection solution RxNorm: 011312 1 Milliliter(s) Inj 08/10/2017 08/10/2017 Inactive morphine ER 30 mg tablet,extended release RxNorm: 974321 1 Tablet(s) PO daily 08/10/2017 09/08/2017 Inactive Vitamin B-12 1,000 mcg/mL injection solution RxNorm: 748899 1 Milliliter(s) Inj month 07/21/2017 No Stop Date Active B12 INJECTIONS MONTHLY cyanocobalamin (vit B-12) 1,000 mcg/mL injection solution RxNorm: 333114 1 Milliliter(s) Inj 07/18/2017 07/18/2017 Inactive morphine ER 30 mg tablet,extended release RxNorm: 655806 1 Tablet(s) PO daily 07/13/2017 08/09/2017 Inactive morphine ER 30 mg tablet,extended release RxNorm: 799798 1 Tablet(s) PO daily 06/15/2017 07/12/2017 Inactive cyanocobalamin (vit B-12) 1,000 mcg/mL injection solution RxNorm: 501192 1 Milliliter(s) Inj 05/16/2017 05/16/2017 Inactive morphine ER 30 mg tablet,extended release RxNorm: 329741 1 Tablet(s) PO daily 04/13/2017 05/12/2017 Inactive cyanocobalamin (vit B-12) 1,000 mcg/mL injection solution RxNorm: 523264 1 Milliliter(s) Inj 03/14/2017 03/14/2017 Inactive morphine ER 30 mg tablet,extended release RxNorm: 416979 1 Tablet(s) PO daily 03/14/2017 04/12/2017 Inactive morphine ER 30 mg tablet,extended release RxNorm: 630939 1 Tablet(s) PO daily 02/13/2017 03/13/2017 Inactive Kenalog 40 mg/mL suspension for injection RxNorm: 8824130 1 Milliliter(s) Inj 01/12/2017 01/12/2017 Inactive cyanocobalamin (vit B-12) 1,000 mcg/mL injection solution RxNorm: 131511 1 Milliliter(s) Inj 01/12/2017 01/12/2017 Inactive Zithromax Z-[place] 250 mg tablet RxNorm: 007398 1 Tablet(s) PO UD 01/12/2017 01/16/2017 Inactive ceftriaxone 500 mg solution for injection RxNorm: 5698725 1 Milliliter(s) Inj 01/12/2017 01/12/2017 Inactive Vitamin B-12 1,000 mcg/mL injection solution RxNorm: 133709 1 Milliliter(s) Inj EVERY OTHER MONTH 01/04/2017 07/20/2017 Inactive lisinopril 20 mg tablet RxNorm: 826004 1 Tablet(s) PO BID 01/02/2017 12/17/2017 Inactive lisinopril 20 mg tablet RxNorm: 060660 1 Tablet(s) PO BID 12/12/2016 01/01/2017 Inactive morphine ER 30 mg tablet,extended release RxNorm: 634977 1 Tablet(s) PO daily 12/08/2016 01/06/2017 Inactive lisinopril 20 mg tablet RxNorm: 415345 1 Tablet(s) PO BID 11/03/2016 12/11/2016 Inactive morphine ER 30 mg tablet,extended release RxNorm: 543856 1 Tablet(s) PO daily 11/03/2016 12/02/2016 Inactive cyanocobalamin (vit B-12) 1,000 mcg/mL injection solution RxNorm: 944621 1 Milliliter(s) Inj 10/27/2016 10/27/2016 Inactive lisinopril 10 mg tablet RxNorm: 760681 1 Tablet(s) PO BID 10/06/2016 11/02/2016 Inactive lisinopril 10 mg tablet RxNorm: 533880 1 Tablet(s) PO daily 09/06/2016 10/05/2016 Inactive morphine ER 30 mg tablet,extended release RxNorm: 932133 1 Tablet(s) PO daily 08/18/2016 09/16/2016 Inactive cyanocobalamin (vit B-12) 1,000 mcg/mL injection solution RxNorm: 411026 Milliliter(s) Inj 07/27/2016 07/27/2016 Inactive morphine ER 30 mg tablet,extended release RxNorm: 182071 1 Tablet(s) PO daily 07/21/2016 08/17/2016 Inactive morphine ER 30 mg tablet,extended release RxNorm: 142145 1 Tablet(s) PO daily 06/20/2016 07/19/2016 Inactive morphine ER 30 mg tablet,extended release RxNorm: 303289 1 Tablet(s) PO daily 05/20/2016 06/19/2016 Inactive cyanocobalamin (vit B-12) 1,000 mcg/mL injection solution RxNorm: 307697 1 Milliliter(s) Inj 04/26/2016 04/26/2016 Inactive gentamicin 0.3 % eye drops RxNorm: 874010 2 Drop(s) OPH Q4H 04/26/2016 05/02/2016 Inactive Vitamin B-12 1,000 mcg/mL injection solution RxNorm: 436492 1 Milliliter(s) Inj EVERY 3 MONTHS No Start Date 01/03/2017 Inactive Claritin 10 mg tablet RxNorm: 317821 1 Tablet(s) PO daily No Start Date 07/17/2017 Inactive Venofer intravenous RxNorm: 24636 intravenous No Start Date 08/14/2018 Inactive morphine ER 30 mg tablet,extended release RxNorm: 358240 1 Tablet(s) PO daily No Start Date 04/25/2016 Inactive Medication Administered Medication Codes Instructions Start Date Status cyanocobalamin (vit B-12) 1,000 mcg/mL injection solution RxNorm: 132210 Milliliter 12/27/2018 No longer Active cyanocobalamin (vit B-12) 1,000 mcg/mL injection solution RxNorm: 624267 Milliliter 11/29/2018 No longer Active cyanocobalamin (vit B-12) 1,000 mcg/mL injection solution RxNorm: 301201 Milliliter 10/29/2018 No longer Active cyanocobalamin (vit B-12) 1,000 mcg/mL injection solution RxNorm: 648505 Milliliter 09/28/2018 No longer Active cyanocobalamin (vit B-12) 1,000 mcg/mL injection solution RxNorm: 070518 Milliliter 08/30/2018 No longer Active cyanocobalamin (vit B-12) 1,000 mcg/mL injection solution RxNorm: 693949 Milliliter 07/31/2018 No longer Active cyanocobalamin (vit B-12) 1,000 mcg/mL injection solution RxNorm: 853428 1Milliliter 07/02/2018 No longer Active cyanocobalamin (vit B-12) 1,000 mcg/mL injection solution RxNorm: 136244 Milliliter 05/31/2018 No longer Active cyanocobalamin (vit B-12) 1,000 mcg/mL injection solution RxNorm: 428146 1Milliliter 05/03/2018 No longer Active cyanocobalamin (vit B-12) 1,000 mcg/mL injection solution RxNorm: 764862 1Milliliter 04/04/2018 No longer Active cyanocobalamin (vit B-12) 1,000 mcg/mL injection solution RxNorm: 511452 1Milliliter 03/05/2018 No longer Active cyanocobalamin (vit B-12) 1,000 mcg/mL injection solution RxNorm: 202898 1Milliliter 01/30/2018 No longer Active cyanocobalamin (vit B-12) 1,000 mcg/mL injection solution RxNorm: 288353 1Milliliter 01/01/2018 No longer Active cyanocobalamin (vit B-12) 1,000 mcg/mL injection solution RxNorm: 852558 1Milliliter 11/28/2017 No longer Active cyanocobalamin (vit B-12) 1,000 mcg/mL injection solution RxNorm: 721161 1Milliliter 10/24/2017 No longer Active cyanocobalamin (vit B-12) 1,000 mcg/mL injection solution RxNorm: 865726 1Milliliter 09/26/2017 No longer Active cyanocobalamin (vit B-12) 1,000 mcg/mL injection solution RxNorm: 763881 1Milliliter 08/10/2017 No longer Active cyanocobalamin (vit B-12) 1,000 mcg/mL injection solution RxNorm: 497218 1Milliliter 07/18/2017 No longer Active cyanocobalamin (vit B-12) 1,000 mcg/mL injection solution RxNorm: 413498 1Milliliter 05/16/2017 No longer Active cyanocobalamin (vit B-12) 1,000 mcg/mL injection solution RxNorm: 110523 1Milliliter 03/14/2017 No longer Active Kenalog 40 mg/mL suspension for injection RxNorm: 3293644 1Milliliter 01/12/2017 No longer Active ceftriaxone 500 mg solution for injection RxNorm: 6113929 1Milliliter 01/12/2017 No longer Active cyanocobalamin (vit B-12) 1,000 mcg/mL injection solution RxNorm: 880474 1Milliliter 01/12/2017 No longer Active cyanocobalamin (vit B-12) 1,000 mcg/mL injection solution RxNorm: 535747 1Milliliter 10/27/2016 No longer Active cyanocobalamin (vit B-12) 1,000 mcg/mL injection solution RxNorm: 202052 Milliliter 07/27/2016 No longer Active cyanocobalamin (vit B-12) 1,000 mcg/mL injection solution RxNorm: 330983 1Milliliter 04/26/2016 No longer Active Immunizations Vaccine Codes Date Status Influenza CVX: 141 05/31/2018 completed Pneumococcal (Adult) CVX: 133 12/12/2016 completed Assessments Condition Codes Effective Dates Sebaceous cyst ICD-10: L72.3 ICD-9: 706.2 01/08/2019 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-10: D51.0 ICD-9: 281.0 12/27/2018 Essential (primary) hypertension ICD-10: I10 ICD-9: 401.1 11/19/2018 Chronic pain syndrome ICD-10: G89.4 ICD-9: 338.4 11/19/2018 Epigastric pain ICD-10: R10.13 ICD-9: 789.06 11/19/2018 Encounter for immunization ICD-10: Z23 ICD-9: V03.89 05/31/2018 Dysphagia, pharyngoesophageal phase ICD-10: R13.14 ICD-9: 787.24 05/23/2018 Slow transit constipation ICD-10: K59.01 ICD-9: 564.01 05/03/2018 Other iron deficiency anemias ICD-10: D50.8 ICD-9: 280.1 05/03/2018 Encounter for general adult medical examination with abnormal findings ICD-10: Z00.01 ICD-9: V70.0 12/18/2017 Iron deficiency anemia, unspecified ICD-10: D50.9 ICD-9: 280.9 11/28/2017 Acute bronchitis, unspecified ICD-10: J20.9 ICD-9: 466.0 01/12/2017 Cough ICD-10: R05 ICD-9: 786.2 01/12/2017 Noninfective gastroenteritis and colitis, unspecified ICD-10: K52.9 ICD-9: 787.91 04/26/2016 Elevated blood-pressure reading, without diagnosis of hypertension ICD-10: R03.0 ICD-9: 796.2 04/26/2016 Chalazion left upper eyelid ICD-10: H00.14 ICD-9: 373.2 04/26/2016 Reason For Visit Reason For Visit Effective Dates Notes skin lesion 01/08/2019 hypertension 11/19/2018 hypertension 08/15/2018 sore throat 05/23/2018 hypertension 05/03/2018 hypertension 01/30/2018 Annual Medicare Wellness Exam 12/18/2017 hypertension 11/28/2017 hypertension 10/10/2017 hypertension 09/26/2017 gastroesophageal reflux 08/16/2017 hypertension 07/18/2017 blood pressure followup 05/16/2017 blood pressure followup 03/14/2017 blood pressure followup 01/12/2017 Annual Medicare Wellness Exam 12/12/2016 blood pressure followup 12/08/2016 blood pressure followup 11/03/2016 blood pressure followup 10/06/2016 blood pressure followup 09/06/2016 blood pressure followup 08/23/2016 _ 04/26/2016 establish care Results Observation Observation Code Item Item Code Result Date B12 Wze086 B12 453.00 pg/ml 11/15/2018 Comp Metabolic Jah457 NA 139 mEq/L 11/15/2018 Comp Metabolic Xil570 K 4.5 mEq/L 11/15/2018 Comp Metabolic Oze784 CL 105 mEq/L 11/15/2018 Comp Metabolic Pmf902 CO2 28.0 mEq/L 11/15/2018 Comp Metabolic Bhh233 ANION GAP 11 11/15/2018 Comp Metabolic Ddc591 GLUCOSE 96 mg/dL 11/15/2018 Comp Metabolic Fvt467 Creat 1.1 mg/dL 11/15/2018 Comp Metabolic Kpd759 eGFR 68 ml/min/1.73m2 11/15/2018 Comp Metabolic Uol330 BUN 18 mg/dL 11/15/2018 Comp Metabolic Znw085 B/C Ratio 16.5 Ratio 11/15/2018 Comp Metabolic Dau518 CALCIUM 9.3 mg/dL 11/15/2018 Comp Metabolic Pbo076 ALK PHOS 72 U/L 11/15/2018 Comp Metabolic Pfn202 AST(SGOT) 21 U/L 11/15/2018 Comp Metabolic Mjn230 ALT(SGPT) 13 U/L 11/15/2018 Comp Metabolic Mhv148 BILI T 0.8 mg/dL 11/15/2018 Comp Metabolic Ioa757 ALBUMIN 3.9 g/dL 11/15/2018 Comp Metabolic Hzz033 TPRO 6.5 g/dL 11/15/2018 Comp Metabolic Yoj639 GLOB 2.6 g/dL 11/15/2018 Comp Metabolic Tpc187 A/G Ratio 1.5 Ratio 11/15/2018 Comp Metabolic Hrm887 Osmo 279 mOsmo 11/15/2018 Tsh Ord6 TSH (3rd IS) 1.76 uIU/mL 11/15/2018 Cbc With Differential Ord2 WBC 9.64 K/ul 11/15/2018 Cbc With Differential Ord2 RBC 4.47 M/ul 11/15/2018 Cbc With Differential Ord2 HGB 14.8 g/dl 11/15/2018 Cbc With Differential Ord2 HCT 44.8 % 11/15/2018 Cbc With Differential Ord2 Neut% 45.2 % 11/15/2018 Cbc With Differential Ord2 MCV 100.2 fl 11/15/2018 Cbc With Differential Ord2 Lymph% 36.9 % 11/15/2018 Cbc With Differential Ord2 MCH 33.1 pg 11/15/2018 Cbc With Differential Ord2 [place]% 12.6 % 11/15/2018 Cbc With Differential Ord2 MCHC 33.0 pg 11/15/2018 Cbc With Differential Ord2 Eos% 5.0 % 11/15/2018 Cbc With Differential Ord2 Baso% 0.3 % 11/15/2018 Cbc With Differential Ord2 PLT 294 K/ul 11/15/2018 Cbc With Differential Ord2 RDW 14.7 % 11/15/2018 Cbc With Differential Ord2 Neut ABS# 4.36 K/ul 11/15/2018 Cbc With Differential Ord2 Lymph ABS# 3.56 K/ul 11/15/2018 Cbc With Differential Ord2 [place] ABS# 1.2 K/ul 11/15/2018 Cbc With Differential Ord2 Eos ABS# 0.5 K/ul 11/15/2018 Cbc With Differential Ord2 Baso ABS# 0.0 K/ul 11/15/2018 Tibc Ord40 Iron 127 ug/dl 11/28/2017 Tibc Ord40 UIBC 191 ug/dL 11/28/2017 Tibc Ord40 TIBC 318 ug/dL 11/28/2017 Tibc Ord40 Fe-%Sat 39.9 % 11/28/2017 Cbc With Differential Ord2 WBC 8.67 K/ul 11/28/2017 Cbc With Differential Ord2 RBC 4.50 M/ul 11/28/2017 Cbc With Differential Ord2 HGB 14.8 g/dl 11/28/2017 Cbc With Differential Ord2 HCT 44.3 % 11/28/2017 Cbc With Differential Ord2 Neut% 50.2 % 11/28/2017 Cbc With Differential Ord2 MCV 98.4 fl 11/28/2017 Cbc With Differential Ord2 Lymph% 33.1 % 11/28/2017 Cbc With Differential Ord2 MCH 32.9 pg 11/28/2017 Cbc With Differential Ord2 [place]% 12.6 % 11/28/2017 Cbc With Differential Ord2 MCHC 33.4 pg 11/28/2017 Cbc With Differential Ord2 Eos% 3.6 % 11/28/2017 Cbc With Differential Ord2 PLT 312 K/ul 11/28/2017 Cbc With Differential Ord2 Baso% 0.5 % 11/28/2017 Cbc With Differential Ord2 RDW 15.1 % 11/28/2017 Cbc With Differential Ord2 Neut ABS# 4.36 K/ul 11/28/2017 Cbc With Differential Ord2 Lymph ABS# 2.87 K/ul 11/28/2017 Cbc With Differential Ord2 [place] ABS# 1.1 K/ul 11/28/2017 Cbc With Differential Ord2 Eos ABS# 0.3 K/ul 11/28/2017 Cbc With Differential Ord2 Baso ABS# 0.0 K/ul 11/28/2017 B12 Emm247 B12 >1500.00 pg/ml 11/28/2017 Comp Metabolic Dgv611 NA 139 mEq/L 11/28/2017 Comp Metabolic Ywd855 K 5.2 mEq/L 11/28/2017 Comp Metabolic Nro559 CL 106 mEq/L 11/28/2017 Comp Metabolic Dze110 CO2 28.0 mEq/L 11/28/2017 Comp Metabolic Kxo964 ANION GAP 10 11/28/2017 Comp Metabolic Cdt147 GLUCOSE 89 mg/dL 11/28/2017 Comp Metabolic Lyk329 Creat 1.1 mg/dL 11/28/2017 Comp Metabolic Ajh088 eGFR 66 ml/min/1.73m2 11/28/2017 Comp Metabolic Mwi164 BUN 18 mg/dL 11/28/2017 Comp Metabolic Whp564 B/C Ratio 16.1 Ratio 11/28/2017 Comp Metabolic Qvo590 CALCIUM 9.2 mg/dL 11/28/2017 Comp Metabolic Jfs686 ALK PHOS 89 U/L 11/28/2017 Comp Metabolic Vvs361 AST(SGOT) 22 U/L 11/28/2017 Comp Metabolic Utg729 ALT(SGPT) 15 U/L 11/28/2017 Comp Metabolic Jjp173 BILI T 0.6 mg/dL 11/28/2017 Comp Metabolic Sze186 ALBUMIN 3.9 g/dL 11/28/2017 Comp Metabolic Vta063 TPRO 6.5 g/dL 11/28/2017 Comp Metabolic Hqp531 GLOB 2.6 g/dL 11/28/2017 Comp Metabolic Kkw978 A/G Ratio 1.5 Ratio 11/28/2017 Comp Metabolic Ueg293 Osmo 279 mOsmo 11/28/2017 Ferritin Ord22 FERRITIN 218.2 ng/mL 11/28/2017 Ferritin Ord22 FERRITIN 211.2 ng/mL 07/18/2017 Cbc With Differential Ord2 WBC 8.61 K/ul 07/18/2017 Cbc With Differential Ord2 RBC 4.48 M/ul 07/18/2017 Cbc With Differential Ord2 HGB 15.1 g/dl 07/18/2017 Cbc With Differential Ord2 HCT 45.1 % 07/18/2017 Cbc With Differential Ord2 Neut% 51.5 % 07/18/2017 Cbc With Differential Ord2 MCV 100.7 fl 07/18/2017 Cbc With Differential Ord2 Lymph% 33.7 % 07/18/2017 Cbc With Differential Ord2 MCH 33.7 pg 07/18/2017 Cbc With Differential Ord2 [place]% 12.3 % 07/18/2017 Cbc With Differential Ord2 [...] 2.90 K/ul 07/18/2017 Cbc With Differential Ord2 [place] ABS# 1.1 K/ul 07/18/2017 Cbc With Differential Ord2 Eos ABS# 0.2 K/ul 07/18/2017 Cbc With Differential Ord2 Baso ABS# 0.0 K/ul 07/18/2017 Comp Metabolic Kkf835 NA 140 mEq/L 07/18/2017 Comp Metabolic Far478 K 4.6 mEq/L 07/18/2017 Comp Metabolic Fsv401 CL 105 mEq/L 07/18/2017 Comp Metabolic Kum669 CO2 29.0 mEq/L 07/18/2017 Comp Metabolic Mal174 ANION GAP 11 07/18/2017 Comp Metabolic Omp814 GLUCOSE 96 mg/dL 07/18/2017 Comp Metabolic Vep809 Creat 1.0 mg/dL 07/18/2017 Comp Metabolic Mku626 eGFR 73 ml/min/1.73m2 07/18/2017 Comp Metabolic Uot898 BUN 12 mg/dL 07/18/2017 Comp Metabolic Lya390 B/C Ratio 11.7 Ratio 07/18/2017 Comp Metabolic Hms288 CALCIUM 9.2 mg/dL 07/18/2017 Comp Metabolic Lnu925 ALK PHOS 74 U/L 07/18/2017 Comp Metabolic Qwy109 AST(SGOT) 29 U/L 07/18/2017 Comp Metabolic Zir271 ALT(SGPT) 16 U/L 07/18/2017 Comp Metabolic Ybr331 BILI T 0.7 mg/dL 07/18/2017 Comp Metabolic Otk837 ALBUMIN 3.7 g/dL 07/18/2017 Comp Metabolic Kgl716 TPRO 6.5 g/dL 07/18/2017 Comp Metabolic Hcx500 GLOB 2.8 g/dL 07/18/2017 Comp Metabolic Llc440 A/G Ratio 1.3 Ratio 07/18/2017 Comp Metabolic Nho771 Osmo 279 mOsmo 07/18/2017 Iron Ord72 Iron 114 ug/dl 07/18/2017 B12 Mui018 B12 233.00 pg/ml 07/18/2017 Tsh Ord6 hTSH II 0.97 uIU/mL 12/13/2016 Cbc With Differential Ord2 WBC 9.42 K/ul 12/13/2016 Cbc With Differential Ord2 RBC 4.33 M/ul 12/13/2016 Cbc With Differential Ord2 HGB 14.4 g/dl 12/13/2016 Cbc With Differential Ord2 HCT 43.3 % 12/13/2016 Cbc With Differential Ord2 Neut% 49.6 % 12/13/2016 Cbc With Differential Ord2 MCV 100.0 fl 12/13/2016 Cbc With Differential Ord2 Lymph% 28.8 % 12/13/2016 Cbc With Differential Ord2 MCH 33.3 pg 12/13/2016 Cbc With Differential Ord2 [place]% 17.9 % 12/13/2016 Cbc With Differential Ord2 [...] 2.71 K/ul 12/13/2016 Cbc With Differential Ord2 [place] ABS# 1.7 K/ul 12/13/2016 Cbc With Differential Ord2 Eos ABS# 0.3 K/ul 12/13/2016 Cbc With Differential Ord2 Baso ABS# 0.0 K/ul 12/13/2016 Comp Metabolic Aag357 NA 136 mEq/L 12/13/2016 Comp Metabolic Kqx285 K 4.7 mEq/L 12/13/2016 Comp Metabolic Bem117 CL 102 mEq/L 12/13/2016 Comp Metabolic Hev832 CO2 26.0 mEq/L 12/13/2016 Comp Metabolic Iwq949 ANION GAP 13 12/13/2016 Comp Metabolic Rxg519 GLUCOSE 87 mg/dL 12/13/2016 Comp Metabolic Hfr104 Creat 0.9 mg/dL 12/13/2016 Comp Metabolic Uyj975 eGFR 83 ml/min/1.73m2 12/13/2016 Comp Metabolic Oeg414 BUN 17 mg/dL 12/13/2016 Comp Metabolic Xjm666 B/C Ratio 18.3 Ratio 12/13/2016 Comp Metabolic Rkb180 CALCIUM 9.1 mg/dL 12/13/2016 Comp Metabolic Igd873 ALK PHOS 90 U/L 12/13/2016 Comp Metabolic Uvx185 AST(SGOT) 22 U/L 12/13/2016 Comp Metabolic Vxv676 ALT(SGPT) 15 U/L 12/13/2016 Comp Metabolic Cxv300 BILI T 0.8 mg/dL 12/13/2016 Comp Metabolic Yut306 ALBUMIN 3.6 g/dL 12/13/2016 Comp Metabolic Bvu859 TPRO 6.4 g/dL 12/13/2016 Comp Metabolic Ssw893 GLOB 2.9 g/dL 12/13/2016 Comp Metabolic Ggs055 A/G Ratio 1.2 Ratio 12/13/2016 Comp Metabolic Imr708 Osmo 273 mOsmo 12/13/2016 Lipid Ord30 CHOL 182 mg/dL 12/13/2016 Lipid Ord30 HDL 64.0 mg/dl 12/13/2016 Lipid Ord30 TRIG 62 mg/dL 12/13/2016 Lipid Ord30 LDL 106 mg/dL 12/13/2016 Lipid Ord30 C/HDL 2.8 Ratio 12/13/2016 Ferritin Ord22 FERRITIN 434.7 ng/mL 12/13/2016 B12 Uti187 B12 247.00 pg/ml 12/13/2016 Tibc Ord40 Iron [...] 45.8 % 04/27/2016 Cbc With Differential Ord2 MCV 101.8 fl 04/27/2016 Cbc With Differential Ord2 Lymph% 36.6 % 04/27/2016 Cbc With Differential Ord2 MCH 33.7 pg 04/27/2016 Cbc With Differential Ord2 [place]% 13.7 % 04/27/2016 Cbc With Differential Ord2 [...] 3.22 K/ul 04/27/2016 Cbc With Differential Ord2 [place] ABS# 1.2 K/ul 04/27/2016 Cbc With Differential Ord2 Eos ABS# 0.3 K/ul 04/27/2016 Cbc With Differential Ord2 Baso ABS# 0.0 K/ul 04/27/2016 Comp Metabolic Dre940 NA 138 mEq/L 04/27/2016 Comp Metabolic Xmg292 K 4.3 mEq/L 04/27/2016 Comp Metabolic Qfl128 CL 104 mEq/L 04/27/2016 Comp Metabolic Mwb696 CO2 30.0 mEq/L 04/27/2016 Comp Metabolic Oad018 ANION GAP 8 04/27/2016 Comp Metabolic Sge787 GLUCOSE 87 mg/dL 04/27/2016 Comp Metabolic Tti772 Creat 0.9 mg/dL 04/27/2016 Comp Metabolic Cdu513 eGFR 82 ml/min/1.73m2 04/27/2016 Comp Metabolic Xfg615 BUN 13 mg/dL 04/27/2016 Comp Metabolic Tsb131 B/C Ratio 13.8 Ratio 04/27/2016 Comp Metabolic Zdl112 CALCIUM 9.0 mg/dL 04/27/2016 Comp Metabolic Nzp989 ALK PHOS 62 U/L 04/27/2016 Comp Metabolic Sey367 AST(SGOT) 24 U/L 04/27/2016 Comp Metabolic Xrf191 ALT(SGPT) 15 U/L 04/27/2016 Comp Metabolic Qqe693 BILI T 0.7 mg/dL 04/27/2016 Comp Metabolic Tlx901 ALBUMIN 3.6 g/dL 04/27/2016 Comp Metabolic Ihh152 TPRO 6.1 g/dL 04/27/2016 Comp Metabolic Cbc734 GLOB 2.5 g/dL 04/27/2016 Comp Metabolic Klb101 A/G Ratio 1.4 Ratio 04/27/2016 Comp Metabolic Mya842 Osmo 275 mOsmo 04/27/2016 B12 Sll062 B12 >1500.00 pg/ml 04/27/2016 Iron Ord72 Iron 104 ug/dl 04/27/2016 Lipid Ord30 CHOL 178 mg/dL 04/27/2016 Lipid Ord30 HDL 70.0 mg/dl 04/27/2016 Lipid Ord30 TRIG 57 mg/dL 04/27/2016 Lipid Ord30 LDL 97 mg/dL 04/27/2016 Lipid Ord30 C/HDL 2.5 Ratio 04/27/2016 Tsh Ord6 hTSH II 1.89 uIU/mL 04/27/2016 Review of Systems System Result Effective Dates Constitutional No recent illness 01/08/2019 Constitutional No anorexia 01/08/2019 Constitutional No night sweats 01/08/2019 Constitutional No chills 01/08/2019 Constitutional No diaphoresis 01/08/2019 Constitutional No fatigue 01/08/2019 Constitutional No fever 01/08/2019 Constitutional No insomnia 01/08/2019 Constitutional No malaise 01/08/2019 Constitutional No weight loss 01/08/2019 Constitutional No weight gain 01/08/2019 Dermatologic sores 01/08/2019 Dermatologic erythema 01/08/2019 Constitutional No recent illness 11/19/2018 Constitutional No anorexia 11/19/2018 Constitutional No night sweats 11/19/2018 Constitutional No chills 11/19/2018 Constitutional No diaphoresis 11/19/2018 Constitutional fatigue 11/19/2018 Constitutional No fever 11/19/2018 Constitutional No insomnia 11/19/2018 Constitutional No malaise 11/19/2018 Eyes No eye discharge 11/19/2018 Eyes No eye erythema 11/19/2018 Ears/Nose/Throat/Neck No dizziness 11/19/2018 Ears/Nose/Throat/Neck No headache 11/19/2018 Ears/Nose/Throat/Neck hearing loss 11/19/2018 Cardiovascular No chest pain/pressure 11/19/2018 Cardiovascular No dyspnea 11/19/2018 Cardiovascular edema 11/19/2018 Cardiovascular hypertension 11/19/2018 Respiratory No productive sputum 11/19/2018 Respiratory No cough 11/19/2018 Gastrointestinal No abdominal pain 11/19/2018 Gastrointestinal constipation 11/19/2018 Gastrointestinal No diarrhea 11/19/2018 Genitourinary/Nephrology No dysuria 11/19/2018 Musculoskeletal joint complaint 11/19/2018 Dermatologic No rash 11/19/2018 Neurologic No alteration of consciousness 11/19/2018 Psychiatric No anxiety 11/19/2018 Hematologic/Lymphatic anemia 11/19/2018 Constitutional No recent illness 08/15/2018 Constitutional No anorexia 08/15/2018 Constitutional No night sweats 08/15/2018 Constitutional No chills 08/15/2018 Constitutional No diaphoresis 08/15/2018 Constitutional fatigue 08/15/2018 Constitutional No fever 08/15/2018 Constitutional No insomnia 08/15/2018 Constitutional No malaise 08/15/2018 Eyes No eye discharge 08/15/2018 Eyes No eye erythema 08/15/2018 Ears/Nose/Throat/Neck No dizziness 08/15/2018 Ears/Nose/Throat/Neck No headache 08/15/2018 Ears/Nose/Throat/Neck hearing loss 08/15/2018 Cardiovascular No chest pain/pressure 08/15/2018 Cardiovascular No dyspnea 08/15/2018 Cardiovascular edema 08/15/2018 Cardiovascular hypertension 08/15/2018 Respiratory No productive sputum 08/15/2018 Respiratory No cough 08/15/2018 Gastrointestinal No abdominal pain 08/15/2018 Gastrointestinal constipation 08/15/2018 Gastrointestinal No diarrhea 08/15/2018 Genitourinary/Nephrology No dysuria 08/15/2018 Musculoskeletal joint complaint 08/15/2018 Dermatologic No rash 08/15/2018 Neurologic No alteration of consciousness 08/15/2018 Psychiatric No anxiety 08/15/2018 Hematologic/Lymphatic anemia 08/15/2018 Cardiovascular near-syncope/dizziness 08/15/2018 Constitutional No recent illness 05/23/2018 Constitutional No chills 05/23/2018 Constitutional No diaphoresis 05/23/2018 Constitutional No fever 05/23/2018 Eyes No eye erythema 05/23/2018 Ears/Nose/Throat/Neck No nasal allergies 05/23/2018 Ears/Nose/Throat/Neck No nasal discharge 05/23/2018 Cardiovascular No chest pain/pressure 05/23/2018 Cardiovascular No dyspnea 05/23/2018 Respiratory No chest congestion 05/23/2018 Respiratory No cough 05/23/2018 Gastrointestinal abdominal pain 05/23/2018 Gastrointestinal No constipation 05/23/2018 Gastrointestinal No diarrhea 05/23/2018 Gastrointestinal dysphagia 05/23/2018 Gastrointestinal gas and bloating 05/23/2018 Gastrointestinal gastroesophageal reflux 05/23/2018 Gastrointestinal No hematemesis 05/23/2018 Gastrointestinal No hematochezia 05/23/2018 Gastrointestinal No melena 05/23/2018 Gastrointestinal nausea 05/23/2018 Gastrointestinal vomiting 05/23/2018 Musculoskeletal No joint complaint 05/23/2018 Dermatologic No rash 05/23/2018 Neurologic No alteration of consciousness 05/23/2018 Neurologic No mental status change 05/23/2018 Constitutional No recent illness 05/03/2018 Constitutional No anorexia 05/03/2018 Constitutional No night sweats 05/03/2018 Constitutional No chills 05/03/2018 Constitutional No diaphoresis 05/03/2018 Constitutional fatigue 05/03/2018 Constitutional No fever 05/03/2018 Constitutional No insomnia 05/03/2018 Constitutional No malaise 05/03/2018 Eyes No eye discharge 05/03/2018 Eyes No eye erythema 05/03/2018 Ears/Nose/Throat/Neck No dizziness 05/03/2018 Ears/Nose/Throat/Neck No headache 05/03/2018 Ears/Nose/Throat/Neck hearing loss 05/03/2018 Cardiovascular No chest pain/pressure 05/03/2018 Cardiovascular No dyspnea 05/03/2018 Cardiovascular edema 05/03/2018 Cardiovascular hypertension 05/03/2018 Respiratory No productive sputum 05/03/2018 Respiratory No cough 05/03/2018 Gastrointestinal No abdominal pain 05/03/2018 Gastrointestinal constipation 05/03/2018 Gastrointestinal No diarrhea 05/03/2018 Genitourinary/Nephrology No dysuria 05/03/2018 Musculoskeletal joint complaint 05/03/2018 Dermatologic No rash 05/03/2018 Neurologic No alteration of consciousness 05/03/2018 Psychiatric No anxiety 05/03/2018 Hematologic/Lymphatic anemia 05/03/2018 Constitutional No recent illness 01/30/2018 Constitutional No anorexia 01/30/2018 Constitutional No night sweats 01/30/2018 Constitutional No chills 01/30/2018 Constitutional No diaphoresis 01/30/2018 Constitutional fatigue 01/30/2018 Constitutional No fever 01/30/2018 Constitutional No insomnia 01/30/2018 Constitutional No malaise 01/30/2018 Eyes No eye discharge 01/30/2018 Eyes No eye erythema 01/30/2018 Ears/Nose/Throat/Neck No dizziness 01/30/2018 Ears/Nose/Throat/Neck No headache 01/30/2018 Cardiovascular No chest pain/pressure 01/30/2018 Cardiovascular No dyspnea 01/30/2018 Cardiovascular edema 01/30/2018 Cardiovascular hypertension 01/30/2018 Respiratory No productive sputum 01/30/2018 Respiratory No cough 01/30/2018 Gastrointestinal No abdominal pain 01/30/2018 Gastrointestinal constipation 01/30/2018 Gastrointestinal No diarrhea 01/30/2018 Genitourinary/Nephrology No dysuria 01/30/2018 Musculoskeletal joint complaint 01/30/2018 Dermatologic No rash 01/30/2018 Neurologic No alteration of consciousness 01/30/2018 Psychiatric No anxiety 01/30/2018 Ears/Nose/Throat/Neck hearing loss 01/30/2018 Constitutional No recent illness 12/18/2017 Constitutional No anorexia 12/18/2017 Constitutional No night sweats 12/18/2017 Constitutional No chills 12/18/2017 Constitutional No diaphoresis 12/18/2017 Constitutional fatigue 12/18/2017 Constitutional No fever 12/18/2017 Constitutional No insomnia 12/18/2017 Constitutional No malaise 12/18/2017 Constitutional No weight loss 12/18/2017 Constitutional No weight gain 12/18/2017 Eyes No eye discharge 12/18/2017 Eyes No eye erythema 12/18/2017 Ears/Nose/Throat/Neck No dizziness 12/18/2017 Ears/Nose/Throat/Neck No headache 12/18/2017 Cardiovascular No chest pain/pressure 12/18/2017 Cardiovascular No dyspnea 12/18/2017 Cardiovascular edema 12/18/2017 Cardiovascular hypertension 12/18/2017 Respiratory No productive sputum 12/18/2017 Respiratory No cough 12/18/2017 Gastrointestinal No abdominal pain 12/18/2017 Gastrointestinal constipation 12/18/2017 Gastrointestinal No diarrhea 12/18/2017 Genitourinary/Nephrology No dysuria 12/18/2017 Musculoskeletal joint complaint 12/18/2017 Dermatologic No rash 12/18/2017 Neurologic No alteration of consciousness 12/18/2017 Psychiatric No anxiety 12/18/2017 Endocrine No dry or coarse skin 12/18/2017 Hematologic/Lymphatic No abnormal ecchymoses 12/18/2017 Constitutional No recent illness 11/28/2017 Constitutional No anorexia 11/28/2017 Constitutional No night sweats 11/28/2017 Constitutional No chills 11/28/2017 Constitutional No diaphoresis 11/28/2017 Constitutional fatigue 11/28/2017 Constitutional No fever 11/28/2017 Constitutional No insomnia 11/28/2017 Constitutional No malaise 11/28/2017 Constitutional No weight loss 11/28/2017 Constitutional No weight gain 11/28/2017 Eyes No eye discharge 11/28/2017 Eyes No eye erythema 11/28/2017 Ears/Nose/Throat/Neck No dizziness 11/28/2017 Ears/Nose/Throat/Neck No headache 11/28/2017 Cardiovascular No chest pain/pressure 11/28/2017 Cardiovascular No dyspnea 11/28/2017 Cardiovascular edema 11/28/2017 Cardiovascular hypertension 11/28/2017 Respiratory No productive sputum 11/28/2017 Respiratory No cough 11/28/2017 Gastrointestinal No abdominal pain 11/28/2017 Gastrointestinal constipation 11/28/2017 Gastrointestinal No diarrhea 11/28/2017 Genitourinary/Nephrology No dysuria 11/28/2017 Musculoskeletal joint complaint 11/28/2017 Dermatologic No rash 11/28/2017 Neurologic No alteration of consciousness 11/28/2017 Psychiatric No anxiety 11/28/2017 Endocrine No dry or coarse skin 11/28/2017 Hematologic/Lymphatic No abnormal ecchymoses 11/28/2017 Constitutional No recent illness 10/10/2017 Constitutional No chills 10/10/2017 Constitutional No diaphoresis 10/10/2017 Constitutional fatigue 10/10/2017 Constitutional No fever 10/10/2017 Eyes No eye discharge 10/10/2017 Eyes No eye erythema 10/10/2017 Cardiovascular No chest pain/pressure 10/10/2017 Cardiovascular No dyspnea 10/10/2017 Cardiovascular edema 10/10/2017 Cardiovascular hypertension 10/10/2017 Cardiovascular No near-syncope/dizziness 10/10/2017 Cardiovascular No palpitations 10/10/2017 Respiratory No cough 10/10/2017 Gastrointestinal No abdominal pain 10/10/2017 Gastrointestinal constipation 10/10/2017 Gastrointestinal No diarrhea 10/10/2017 Gastrointestinal No gastroesophageal reflux 10/10/2017 Musculoskeletal joint complaint 10/10/2017 Dermatologic No rash 10/10/2017 Neurologic No alteration of consciousness 10/10/2017 Neurologic No mental status change 10/10/2017 Ears/Nose/Throat/Neck No nasal discharge 10/10/2017 Ears/Nose/Throat/Neck No nasal allergies 10/10/2017 Respiratory No chest congestion 10/10/2017 Constitutional No chills 09/26/2017 Constitutional No diaphoresis 09/26/2017 Constitutional fatigue 09/26/2017 Eyes No eye discharge 09/26/2017 Eyes No eye erythema 09/26/2017 Ears/Nose/Throat/Neck No dizziness 09/26/2017 Ears/Nose/Throat/Neck No headache 09/26/2017 Cardiovascular No chest pain/pressure 09/26/2017 Cardiovascular No dyspnea 09/26/2017 Cardiovascular edema 09/26/2017 Cardiovascular hypertension 09/26/2017 Respiratory No productive sputum 09/26/2017 Respiratory No cough 09/26/2017 Gastrointestinal constipation 09/26/2017 Gastrointestinal No diarrhea 09/26/2017 Musculoskeletal joint complaint 09/26/2017 Dermatologic No rash 09/26/2017 Neurologic No alteration of consciousness 09/26/2017 Constitutional No recent illness 09/26/2017 Constitutional No fever 09/26/2017 Ears/Nose/Throat/Neck No nasal discharge 09/26/2017 Cardiovascular No near-syncope/dizziness 09/26/2017 Cardiovascular No palpitations 09/26/2017 Gastrointestinal No abdominal pain 09/26/2017 Gastrointestinal No gastroesophageal reflux 09/26/2017 Neurologic No mental status change 09/26/2017 Constitutional No recent illness 08/16/2017 Constitutional No chills 08/16/2017 Constitutional No diaphoresis 08/16/2017 Constitutional No fever 08/16/2017 Eyes No eye erythema 08/16/2017 Ears/Nose/Throat/Neck No nasal discharge 08/16/2017 Ears/Nose/Throat/Neck No nasal allergies 08/16/2017 Cardiovascular No chest pain/pressure 08/16/2017 Cardiovascular No dyspnea 08/16/2017 Respiratory No cough 08/16/2017 Respiratory No chest congestion 08/16/2017 Gastrointestinal abdominal pain 08/16/2017 Gastrointestinal No constipation 08/16/2017 Gastrointestinal No diarrhea 08/16/2017 Gastrointestinal gas and bloating 08/16/2017 Gastrointestinal gastroesophageal reflux 08/16/2017 Gastrointestinal No hematochezia 08/16/2017 Gastrointestinal No hematemesis 08/16/2017 Gastrointestinal No melena 08/16/2017 Gastrointestinal vomiting 08/16/2017 Gastrointestinal nausea 08/16/2017 Gastrointestinal dysphagia 08/16/2017 Musculoskeletal No joint complaint 08/16/2017 Dermatologic No rash 08/16/2017 Neurologic No alteration of consciousness 08/16/2017 Neurologic No mental status change 08/16/2017 Constitutional No recent illness 07/18/2017 Constitutional No anorexia 07/18/2017 Constitutional No night sweats 07/18/2017 Constitutional No chills 07/18/2017 Constitutional No diaphoresis 07/18/2017 Constitutional fatigue 07/18/2017 Constitutional No fever 07/18/2017 Constitutional No insomnia 07/18/2017 Constitutional No malaise 07/18/2017 Constitutional No weight loss 07/18/2017 Constitutional No weight gain 07/18/2017 Eyes No eye discharge 07/18/2017 Eyes No eye erythema 07/18/2017 Ears/Nose/Throat/Neck No dizziness 07/18/2017 Ears/Nose/Throat/Neck No headache 07/18/2017 Cardiovascular No chest pain/pressure 07/18/2017 Cardiovascular No dyspnea 07/18/2017 Cardiovascular edema 07/18/2017 Respiratory No productive sputum 07/18/2017 Respiratory No cough 07/18/2017 Gastrointestinal abdominal pain 07/18/2017 Genitourinary/Nephrology No dysuria 07/18/2017 Musculoskeletal joint complaint 07/18/2017 Dermatologic No rash 07/18/2017 Neurologic No alteration of consciousness 07/18/2017 Psychiatric No anxiety 07/18/2017 Endocrine No dry or coarse skin 07/18/2017 Hematologic/Lymphatic No abnormal ecchymoses 07/18/2017 Cardiovascular hypertension 07/18/2017 Gastrointestinal constipation 07/18/2017 Gastrointestinal No diarrhea 07/18/2017 Gastrointestinal gastroesophageal reflux 07/18/2017 Constitutional No recent illness 05/16/2017 Constitutional No anorexia 05/16/2017 Constitutional No night sweats 05/16/2017 Constitutional No chills 05/16/2017 Constitutional No diaphoresis 05/16/2017 Constitutional fatigue 05/16/2017 Constitutional No fever 05/16/2017 Constitutional No insomnia 05/16/2017 Constitutional No malaise 05/16/2017 Constitutional No weight loss 05/16/2017 Constitutional No weight gain 05/16/2017 Eyes No eye discharge 05/16/2017 Eyes No eye erythema 05/16/2017 Ears/Nose/Throat/Neck No dizziness 05/16/2017 Ears/Nose/Throat/Neck No headache 05/16/2017 Cardiovascular No chest pain/pressure 05/16/2017 Cardiovascular No dyspnea 05/16/2017 Respiratory No productive sputum 05/16/2017 Respiratory No cough 05/16/2017 Gastrointestinal No abdominal pain 05/16/2017 Genitourinary/Nephrology No dysuria 05/16/2017 Musculoskeletal joint complaint 05/16/2017 Dermatologic No rash 05/16/2017 Neurologic No alteration of consciousness 05/16/2017 Psychiatric No anxiety 05/16/2017 Endocrine No dry or coarse skin 05/16/2017 Hematologic/Lymphatic No abnormal ecchymoses 05/16/2017 Cardiovascular edema 05/16/2017 Constitutional No recent illness 03/14/2017 Constitutional No anorexia 03/14/2017 Constitutional No night sweats 03/14/2017 Constitutional No chills 03/14/2017 Constitutional No diaphoresis 03/14/2017 Constitutional fatigue 03/14/2017 Constitutional No fever 03/14/2017 Constitutional No insomnia 03/14/2017 Constitutional No malaise 03/14/2017 Constitutional No weight loss 03/14/2017 Constitutional No weight gain 03/14/2017 Eyes No eye discharge 03/14/2017 Eyes No eye erythema 03/14/2017 Ears/Nose/Throat/Neck No dizziness 03/14/2017 Ears/Nose/Throat/Neck No headache 03/14/2017 Cardiovascular No chest pain/pressure 03/14/2017 Cardiovascular No dyspnea 03/14/2017 Respiratory No productive sputum 03/14/2017 Respiratory No cough 03/14/2017 Gastrointestinal No abdominal pain 03/14/2017 Genitourinary/Nephrology No dysuria 03/14/2017 Musculoskeletal joint complaint 03/14/2017 Dermatologic No rash 03/14/2017 Neurologic No alteration of consciousness 03/14/2017 Psychiatric No anxiety 03/14/2017 Endocrine No dry or coarse skin 03/14/2017 Hematologic/Lymphatic No abnormal ecchymoses 03/14/2017 Constitutional recent illness 01/12/2017 Constitutional fever 01/12/2017 Constitutional No chills 01/12/2017 Constitutional fatigue 01/12/2017 Constitutional weight loss 01/12/2017 Constitutional No weight gain 01/12/2017 Constitutional No obesity 01/12/2017 Constitutional malaise 01/12/2017 Constitutional No diaphoresis 01/12/2017 Constitutional No night sweats 01/12/2017 Constitutional No insomnia 01/12/2017 Constitutional No anorexia 01/12/2017 Eyes No eye discharge 01/12/2017 Eyes No eye pain 01/12/2017 Ears/Nose/Throat/Neck headache 01/12/2017 Ears/Nose/Throat/Neck No dizziness 01/12/2017 Ears/Nose/Throat/Neck nasal discharge 01/12/2017 Ears/Nose/Throat/Neck sinus congestion 01/12/2017 Ears/Nose/Throat/Neck sore throat 01/12/2017 Cardiovascular No chest pain/pressure 01/12/2017 Cardiovascular fatigue 01/12/2017 Cardiovascular No dyspnea 01/12/2017 Respiratory productive sputum 01/12/2017 Respiratory chest congestion 01/12/2017 Respiratory chest tightness 01/12/2017 Respiratory cough 01/12/2017 Respiratory No dyspnea 01/12/2017 Gastrointestinal No abdominal pain 01/12/2017 Gastrointestinal No constipation 01/12/2017 Gastrointestinal No diarrhea 01/12/2017 Gastrointestinal No nausea 01/12/2017 Gastrointestinal No vomiting 01/12/2017 Genitourinary/Nephrology No anuria/oliguria 01/12/2017 Genitourinary/Nephrology No dysuria 01/12/2017 Musculoskeletal arthralgia(s) 01/12/2017 Musculoskeletal swelling 01/12/2017 Musculoskeletal stiffness 01/12/2017 Musculoskeletal myalgias 01/12/2017 Dermatologic No rash 01/12/2017 Dermatologic No sores 01/12/2017 Neurologic No alteration of consciousness 01/12/2017 Neurologic No memory loss 01/12/2017 Neurologic No mental status change 01/12/2017 Psychiatric No anxiety 01/12/2017 Psychiatric No depression 01/12/2017 Hematologic/Lymphatic No abnormal ecchymoses 01/12/2017 Hematologic/Lymphatic No abnormal bleeding and bruising 01/12/2017 Endocrine No polyuria 01/12/2017 Endocrine No polydipsia 01/12/2017 Endocrine No weakness 01/12/2017 Constitutional No recent illness 12/12/2016 Constitutional No anorexia 12/12/2016 Constitutional No night sweats 12/12/2016 Constitutional No chills 12/12/2016 Constitutional No diaphoresis 12/12/2016 Constitutional fatigue 12/12/2016 Constitutional No fever 12/12/2016 Constitutional No insomnia 12/12/2016 Constitutional No malaise 12/12/2016 Constitutional No weight loss 12/12/2016 Constitutional No weight gain 12/12/2016 Eyes No eye erythema 12/12/2016 Eyes No eye discharge 12/12/2016 Ears/Nose/Throat/Neck No dizziness 12/12/2016 Ears/Nose/Throat/Neck No headache 12/12/2016 Cardiovascular No chest pain/pressure 12/12/2016 Cardiovascular No dyspnea 12/12/2016 Respiratory No productive sputum 12/12/2016 Respiratory No cough 12/12/2016 Gastrointestinal No abdominal pain 12/12/2016 Genitourinary/Nephrology No dysuria 12/12/2016 Musculoskeletal joint complaint 12/12/2016 Dermatologic No rash 12/12/2016 Neurologic No alteration of consciousness 12/12/2016 Psychiatric No anxiety 12/12/2016 Endocrine No dry or coarse skin 12/12/2016 Hematologic/Lymphatic No abnormal ecchymoses 12/12/2016 Constitutional No recent illness 12/08/2016 Constitutional No anorexia 12/08/2016 Constitutional No night sweats 12/08/2016 Constitutional No chills 12/08/2016 Constitutional No diaphoresis 12/08/2016 Constitutional No fatigue 12/08/2016 Constitutional No fever 12/08/2016 Constitutional No insomnia 12/08/2016 Constitutional No malaise 12/08/2016 Eyes No eye pain 12/08/2016 Eyes No vision change 12/08/2016 Ears/Nose/Throat/Neck No dizziness 12/08/2016 Ears/Nose/Throat/Neck No headache 12/08/2016 Cardiovascular No chest pain/pressure 12/08/2016 Respiratory No chest tightness 12/08/2016 Respiratory No chest congestion 12/08/2016 Respiratory No cough 12/08/2016 Gastrointestinal constipation 12/08/2016 Gastrointestinal No diarrhea 12/08/2016 Gastrointestinal No nausea 12/08/2016 Gastrointestinal No vomiting 12/08/2016 Genitourinary/Nephrology No anuria/oliguria 12/08/2016 Genitourinary/Nephrology No dysuria 12/08/2016 Musculoskeletal stiffness 12/08/2016 Musculoskeletal swelling 12/08/2016 Musculoskeletal joint complaint 12/08/2016 Dermatologic No rash 12/08/2016 Dermatologic No sores 12/08/2016 Neurologic No memory loss 12/08/2016 Neurologic No mental status change 12/08/2016 Psychiatric No anxiety 12/08/2016 Psychiatric No depression 12/08/2016 Endocrine No polyuria 12/08/2016 Endocrine No polydipsia 12/08/2016 Hematologic/Lymphatic No abnormal ecchymoses 12/08/2016 Hematologic/Lymphatic No abnormal bleeding and bruising 12/08/2016 Constitutional No recent illness 11/03/2016 Constitutional No anorexia 11/03/2016 Constitutional No night sweats 11/03/2016 Constitutional No chills 11/03/2016 Constitutional No diaphoresis 11/03/2016 Constitutional No fatigue 11/03/2016 Constitutional No fever 11/03/2016 Constitutional No insomnia 11/03/2016 Constitutional No malaise 11/03/2016 Constitutional No weight loss 11/03/2016 Constitutional No weight gain 11/03/2016 Constitutional No obesity 11/03/2016 Eyes No eye pain 11/03/2016 Eyes No vision change 11/03/2016 Ears/Nose/Throat/Neck No dizziness 11/03/2016 Ears/Nose/Throat/Neck headache 11/03/2016 Cardiovascular No chest pain/pressure 11/03/2016 Cardiovascular No dyspnea 11/03/2016 Cardiovascular No fatigue 11/03/2016 Respiratory No chest congestion 11/03/2016 Respiratory No chest tightness 11/03/2016 Respiratory No cigarette smoking 11/03/2016 Respiratory No cough 11/03/2016 Gastrointestinal No abdominal pain 11/03/2016 Gastrointestinal No diarrhea 11/03/2016 Gastrointestinal No nausea 11/03/2016 Gastrointestinal No vomiting 11/03/2016 Genitourinary/Nephrology No anuria/oliguria 11/03/2016 Genitourinary/Nephrology No dysuria 11/03/2016 Genitourinary/Nephrology No flank pain 11/03/2016 Musculoskeletal No stiffness 11/03/2016 Musculoskeletal No swelling 11/03/2016 Musculoskeletal No arthralgia(s) 11/03/2016 Musculoskeletal No back pain 11/03/2016 Dermatologic rash 11/03/2016 Dermatologic No sores 11/03/2016 Neurologic No alteration of consciousness 11/03/2016 Neurologic No dizziness 11/03/2016 Neurologic No memory loss 11/03/2016 Neurologic No mental status change 11/03/2016 Psychiatric No anxiety 11/03/2016 Psychiatric No depression 11/03/2016 Hematologic/Lymphatic No abnormal ecchymoses 11/03/2016 Hematologic/Lymphatic No abnormal bleeding and bruising 11/03/2016 Constitutional No recent illness 10/06/2016 Constitutional No anorexia 10/06/2016 Constitutional No night sweats 10/06/2016 Constitutional No chills 10/06/2016 Constitutional No diaphoresis 10/06/2016 Constitutional No fatigue 10/06/2016 Constitutional No fever 10/06/2016 Constitutional No insomnia 10/06/2016 Constitutional No malaise 10/06/2016 Constitutional No weight loss 10/06/2016 Constitutional No weight gain 10/06/2016 Constitutional No obesity 10/06/2016 Eyes No eye pain 10/06/2016 Eyes No vision change 10/06/2016 Ears/Nose/Throat/Neck No dizziness 10/06/2016 Ears/Nose/Throat/Neck headache 10/06/2016 Cardiovascular No chest pain/pressure 10/06/2016 Cardiovascular No dyspnea 10/06/2016 Cardiovascular No fatigue 10/06/2016 Respiratory No cough 10/06/2016 Respiratory No cigarette smoking 10/06/2016 Respiratory No chest tightness 10/06/2016 Respiratory No chest congestion 10/06/2016 Gastrointestinal constipation 10/06/2016 Gastrointestinal No diarrhea 10/06/2016 Gastrointestinal No abdominal pain 10/06/2016 Gastrointestinal No nausea 10/06/2016 Gastrointestinal No vomiting 10/06/2016 Genitourinary/Nephrology No dysuria 10/06/2016 Genitourinary/Nephrology No flank pain 10/06/2016 Genitourinary/Nephrology No anuria/oliguria 10/06/2016 Musculoskeletal No stiffness 10/06/2016 Musculoskeletal No swelling 10/06/2016 Musculoskeletal No arthralgia(s) 10/06/2016 Musculoskeletal No back pain 10/06/2016 Dermatologic rash 10/06/2016 Dermatologic No sores 10/06/2016 Neurologic No alteration of consciousness 10/06/2016 Neurologic No dizziness 10/06/2016 Neurologic No memory loss 10/06/2016 Neurologic No mental status change 10/06/2016 Psychiatric No anxiety 10/06/2016 Psychiatric No depression 10/06/2016 Hematologic/Lymphatic No abnormal ecchymoses 10/06/2016 Hematologic/Lymphatic No abnormal bleeding and bruising 10/06/2016 Constitutional No recent illness 09/06/2016 Constitutional No anorexia 09/06/2016 Constitutional No night sweats 09/06/2016 Constitutional No chills 09/06/2016 Constitutional No diaphoresis 09/06/2016 Constitutional No fatigue 09/06/2016 Constitutional No fever 09/06/2016 Constitutional No insomnia 09/06/2016 Constitutional No malaise 09/06/2016 Constitutional No weight loss 09/06/2016 Constitutional No weight gain 09/06/2016 Eyes No eye discharge 09/06/2016 Ears/Nose/Throat/Neck No dizziness 09/06/2016 Ears/Nose/Throat/Neck No headache 09/06/2016 Cardiovascular No chest pain/pressure 09/06/2016 Cardiovascular No dyspnea 09/06/2016 Cardiovascular No edema 09/06/2016 Cardiovascular No fatigue 09/06/2016 Cardiovascular hypertension 09/06/2016 Respiratory No cough 09/06/2016 Gastrointestinal abdominal pain 09/06/2016 Genitourinary/Nephrology No dysuria 09/06/2016 Musculoskeletal No joint complaint 09/06/2016 Dermatologic No rash 09/06/2016 Neurologic No alteration of consciousness 09/06/2016 Neurologic No dizziness 09/06/2016 Neurologic No headache 09/06/2016 Neurologic No syncope 09/06/2016 Constitutional No recent illness 08/23/2016 Constitutional No anorexia 08/23/2016 Constitutional No night sweats 08/23/2016 Constitutional No chills 08/23/2016 Constitutional No diaphoresis 08/23/2016 Constitutional No fatigue 08/23/2016 Constitutional No fever 08/23/2016 Constitutional No insomnia 08/23/2016 Constitutional No malaise 08/23/2016 Constitutional No weight loss 08/23/2016 Constitutional No weight gain 08/23/2016 Eyes No eye discharge 08/23/2016 Ears/Nose/Throat/Neck No dizziness 08/23/2016 Ears/Nose/Throat/Neck No headache 08/23/2016 Cardiovascular No chest pain/pressure 08/23/2016 Cardiovascular No dyspnea 08/23/2016 Cardiovascular No edema 08/23/2016 Cardiovascular No fatigue 08/23/2016 Cardiovascular hypertension 08/23/2016 Respiratory No cough 08/23/2016 Musculoskeletal No joint complaint 08/23/2016 Dermatologic No rash 08/23/2016 Genitourinary/Nephrology No dysuria 08/23/2016 Gastrointestinal abdominal pain 08/23/2016 Neurologic No alteration of consciousness 08/23/2016 Neurologic No dizziness 08/23/2016 Neurologic No headache 08/23/2016 Neurologic No syncope 08/23/2016 Constitutional No recent illness 04/26/2016 Constitutional No chills 04/26/2016 Constitutional No fatigue 04/26/2016 Constitutional No fever 04/26/2016 Constitutional No insomnia 04/26/2016 Constitutional No malaise 04/26/2016 Eyes No blindness 04/26/2016 Eyes No vision change 04/26/2016 Eyes eyelid erythema 04/26/2016 Ears/Nose/Throat/Neck No dental pain 04/26/2016 Ears/Nose/Throat/Neck No dizziness 04/26/2016 Ears/Nose/Throat/Neck No dysphagia 04/26/2016 Ears/Nose/Throat/Neck No headache 04/26/2016 Ears/Nose/Throat/Neck No hearing loss 04/26/2016 Ears/Nose/Throat/Neck No nasal allergies 04/26/2016 Ears/Nose/Throat/Neck No sore throat 04/26/2016 Ears/Nose/Throat/Neck No postnasal drip 04/26/2016 Ears/Nose/Throat/Neck No sinus congestion 04/26/2016 Cardiovascular No chest pain/pressure 04/26/2016 Cardiovascular No dyspnea 04/26/2016 Cardiovascular No edema 04/26/2016 Cardiovascular No exercise intolerance 04/26/2016 Cardiovascular No fatigue 04/26/2016 Cardiovascular No near-syncope/dizziness 04/26/2016 Respiratory No chest tightness 04/26/2016 Respiratory No cigarette smoking 04/26/2016 Respiratory No cough 04/26/2016 Respiratory No dyspnea 04/26/2016 Respiratory No pedal edema 04/26/2016 Respiratory No snoring 04/26/2016 Respiratory No wheezing 04/26/2016 Gastrointestinal No hemorrhoids 04/26/2016 Gastrointestinal No abdominal pain 04/26/2016 Gastrointestinal No constipation 04/26/2016 Gastrointestinal diarrhea 04/26/2016 Gastrointestinal No gastroesophageal reflux 04/26/2016 Gastrointestinal No melena 04/26/2016 Gastrointestinal No nausea 04/26/2016 Gastrointestinal No vomiting 04/26/2016 Genitourinary/Nephrology No dysuria 04/26/2016 Genitourinary/Nephrology No nocturia 04/26/2016 Genitourinary/Nephrology No urinary incontinence 04/26/2016 Psychiatric No anxiety 04/26/2016 Psychiatric No depression 04/26/2016 Neurologic No dizziness 04/26/2016 Neurologic No headache 04/26/2016 Neurologic No neck pain 04/26/2016 Neurologic No syncope 04/26/2016 Dermatologic No rash 04/26/2016 Dermatologic No scar 04/26/2016 Musculoskeletal No stiffness 04/26/2016 Musculoskeletal No swelling 04/26/2016 Musculoskeletal No muscle weakness 04/26/2016 Musculoskeletal No myalgias 04/26/2016 Endocrine No goiter 04/26/2016 Physical Exam Exam Name System Name Item Name Status Result Effective Dates Notes Full Exam - General 1994 Constitutional general appearance Development: well developed 01/08/2019 None Full Exam - General 1994 Constitutional general appearance Development: appears stated age 0501/08/2019 None Full Exam - General 1994 Eyes conjunctiva/eyelids Overall: conjunctiva clear 01/08/2019 None Full Exam - General 1994 Eyes conjunctiva/eyelids Overall: cornea clear 01/08/2019 None Full Exam - General 1994 Eyes conjunctiva/eyelids Overall: eyelids normal 01/08/2019 None Full Exam - General 1994 Eyes pupils and irises Overall: pupils equal, round, reactive to light and accomodation 01/08/2019 None Full Exam - General 1994 Ears/Nose/Throat otoscopic exam Overall: external auditory canals clear 01/08/2019 None Full Exam - General 1994 Ears/Nose/Throat otoscopic exam Overall: tympanic membranes clear 01/08/2019 None Full Exam - General 1994 Ears/Nose/Throat lips/teeth/gingiva Overall: benign lips 01/08/2019 None Full Exam - General 1994 Ears/Nose/Throat lips/teeth/gingiva Teeth: wears dentures 01/08/2019 None Full Exam - General 1994 Ears/Nose/Throat oral cavity/pharynx/larynx Overall: oral mucosa clear 01/08/2019 None Full Exam - General 1994 Respiratory auscultation Overall: breath sounds clear bilaterally 01/08/2019 None Full Exam - General 1994 Respiratory respiratory effort/rhythm Overall: no retractions 01/08/2019 None Full Exam - General 1994 Respiratory respiratory effort/rhythm Overall: normal rate 01/08/2019 None Full Exam - General 1994 Cardiovascular auscultation of heart Overall: regular rate 01/08/2019 None Full Exam - General 1994 Cardiovascular auscultation of heart Overall: normal heart sounds 01/08/2019 None Full Exam - General 1994 Abdomen abdominal exam Overall: no tenderness 01/08/2019 None Full Exam - General 1994 Abdomen abdominal exam Overall: normal bowel sounds 01/08/2019 None Full Exam - General 1994 Lymphatic neck nodes Overall: anterior cervical chain benign 01/08/2019 None Full Exam - General 1994 Lymphatic neck nodes Overall: posterior cervical chain benign 01/08/2019 None Full Exam - General 1994 Neurologic cranial nerves Overall: crainial nerves 2 - 12 grossly intact 01/08/2019 None Full Exam - General 1994 Psychiatric orientation/consciousness Overall: oriented to person, place and time 01/08/2019 None Full Exam - Cardiology Integument inspection/palpation Location: back 01/08/2019 sebaceous cyst left lower back -slightly erythematous and tender Full Exam - General 1994 Constitutional general appearance Development: well developed 11/19/2018 None Full Exam - General 1994 Constitutional general appearance Development: appears stated age 0311/19/2018 None Full Exam - General 1994 Eyes conjunctiva/eyelids Overall: conjunctiva clear 11/19/2018 None Full Exam - General 1994 Eyes conjunctiva/eyelids Overall: cornea clear 11/19/2018 None Full Exam - General 1994 Eyes conjunctiva/eyelids Overall: eyelids normal 11/19/2018 None Full Exam - General 1994 Eyes pupils and irises Overall: pupils equal, round, reactive to light and accomodation 11/19/2018 None Full Exam - General 1994 Ears/Nose/Throat otoscopic exam Overall: external auditory canals clear 11/19/2018 None Full Exam - General 1994 Ears/Nose/Throat otoscopic exam Overall: tympanic membranes clear 11/19/2018 None Full Exam - General 1994 Ears/Nose/Throat lips/teeth/gingiva Overall: benign lips 11/19/2018 None Full Exam - General 1994 Ears/Nose/Throat lips/teeth/gingiva Teeth: wears dentures 11/19/2018 None Full Exam - General 1994 Ears/Nose/Throat oral cavity/pharynx/larynx Overall: oral mucosa clear 11/19/2018 None Full Exam - General 1994 Respiratory auscultation Overall: breath sounds clear bilaterally 11/19/2018 None Full Exam - General 1994 Respiratory respiratory effort/rhythm Overall: no retractions 11/19/2018 None Full Exam - General 1994 Respiratory respiratory effort/rhythm Overall: normal rate 11/19/2018 None Full Exam - General 1994 Cardiovascular extremities Edema present: pitting 11/19/2018 None Full Exam - General 1994 Cardiovascular extremities Edema present: severity 1+ - 4+: trace ankles 11/19/2018 None Full Exam - General 1994 Cardiovascular extremities Edema present: bilateral 11/19/2018 None Full Exam - General 1994 Cardiovascular auscultation of heart Overall: regular rate 11/19/2018 None Full Exam - General 1994 Cardiovascular auscultation of heart Overall: normal heart sounds 11/19/2018 None Full Exam - General 1994 Abdomen abdominal exam Overall: no tenderness 11/19/2018 None Full Exam - General 1994 Abdomen abdominal exam Overall: normal bowel sounds 11/19/2018 None Full Exam - General 1994 Lymphatic neck nodes Overall: anterior cervical chain benign 11/19/2018 None Full Exam - General 1994 Lymphatic neck nodes Overall: posterior cervical chain benign 11/19/2018 None Full Exam - General 1994 Musculoskeletal upper extremity Palpation - shoulder: acromioclavicular joint tenderness 11/19/2018 None Full Exam - General 1994 Musculoskeletal upper extremity Palpation - shoulder: tenderness @ bicipital groove 11/19/2018 None Full Exam - General 1994 Neurologic cranial nerves Overall: crainial nerves 2 - 12 grossly intact 11/19/2018 None Full Exam - General 1994 Psychiatric orientation/consciousness Overall: oriented to person, place and time 11/19/2018 None Full Exam - General 1994 Constitutional general appearance Development: well developed 08/15/2018 None Full Exam - General 1994 Constitutional general appearance Development: appears stated age 1208/15/2018 None Full Exam - General 1994 Eyes conjunctiva/eyelids Overall: conjunctiva clear 08/15/2018 None Full Exam - General 1994 Eyes conjunctiva/eyelids Overall: cornea clear 08/15/2018 None Full Exam - General 1994 Eyes conjunctiva/eyelids Overall: eyelids normal 08/15/2018 None Full Exam - General 1994 Eyes pupils and irises Overall: pupils equal, round, reactive to light and accomodation 08/15/2018 None Full Exam - General 1994 Ears/Nose/Throat otoscopic exam Overall: external auditory canals clear 08/15/2018 None Full Exam - General 1994 Ears/Nose/Throat otoscopic exam Overall: tympanic membranes clear 08/15/2018 None Full Exam - General 1994 Ears/Nose/Throat lips/teeth/gingiva Overall: benign lips 08/15/2018 None Full Exam - General 1994 Ears/Nose/Throat lips/teeth/gingiva Teeth: wears dentures 08/15/2018 None Full Exam - General 1994 Ears/Nose/Throat oral cavity/pharynx/larynx Overall: oral mucosa clear 08/15/2018 None Full Exam - General 1994 Respiratory auscultation Overall: breath sounds clear bilaterally 08/15/2018 None Full Exam - General 1994 Respiratory respiratory effort/rhythm Overall: no retractions 08/15/2018 None Full Exam - General 1994 Respiratory respiratory effort/rhythm Overall: normal rate 08/15/2018 None Full Exam - General 1994 Cardiovascular extremities Edema present: pitting 08/15/2018 None Full Exam - General 1994 Cardiovascular extremities Edema present: severity 1+ - 4+: trace ankles 08/15/2018 None Full Exam - General 1994 Cardiovascular extremities Edema present: bilateral 08/15/2018 None Full Exam - General 1994 Cardiovascular auscultation of heart Overall: regular rate 08/15/2018 None Full Exam - General 1994 Cardiovascular auscultation of heart Overall: normal heart sounds 08/15/2018 None Full Exam - General 1994 Abdomen abdominal exam Overall: no tenderness 08/15/2018 None Full Exam - General 1994 Abdomen abdominal exam Overall: normal bowel sounds 08/15/2018 None Full Exam - General 1994 Lymphatic neck nodes Overall: anterior cervical chain benign 08/15/2018 None Full Exam - General 1994 Lymphatic neck nodes Overall: posterior cervical chain benign 08/15/2018 None Full Exam - General 1994 Neurologic cranial nerves Overall: crainial nerves 2 - 12 grossly intact 08/15/2018 None Full Exam - General 1994 Psychiatric orientation/consciousness Overall: oriented to person, place and time 08/15/2018 None Full Exam - General 1994 Constitutional general appearance Overall: well developed 05/23/2018 None Full Exam - General 1994 Constitutional general appearance Overall: in no acute distress 05/23/2018 None Full Exam - General 1994 Constitutional general appearance Overall: well nourished 05/23/2018 None Full Exam - General 1994 Eyes conjunctiva/eyelids Overall: conjunctiva clear 05/23/2018 None Full Exam - General 1994 Eyes conjunctiva/eyelids Overall: cornea clear 05/23/2018 None Full Exam - General 1994 Eyes conjunctiva/eyelids Overall: eyelids normal 05/23/2018 None Full Exam - General 1994 Ears/Nose/Throat lips/teeth/gingiva Overall: benign lips 05/23/2018 None Full Exam - General 1994 Ears/Nose/Throat oral cavity/pharynx/larynx Overall: oral mucosa clear 05/23/2018 None Full Exam - General 1994 Respiratory auscultation Overall: breath sounds clear bilaterally 05/23/2018 None Full Exam - General 1994 Respiratory respiratory effort/rhythm Overall: no retractions 05/23/2018 None Full Exam - General 1994 Respiratory respiratory effort/rhythm Overall: normal rate 05/23/2018 None Full Exam - General 1994 Cardiovascular auscultation of heart Overall: regular rate 05/23/2018 None Full Exam - General 1994 Cardiovascular auscultation of heart Overall: normal heart sounds 05/23/2018 None Full Exam - General 1994 Abdomen abdominal exam Overall: no tenderness 05/23/2018 None Full Exam - General 1994 Musculoskeletal head and neck Overall: head atraumatic 05/23/2018 None Full Exam - General 1994 Neurologic cranial nerves Overall: crainial nerves 2 - 12 grossly intact 05/23/2018 None Full Exam - General 1994 Psychiatric orientation/consciousness Overall: oriented to person, place and time 05/23/2018 None Full Exam - General 1994 Psychiatric mood and affect Overall: normal mood and affect 05/23/2018 None Full Exam - General 1994 Psychiatric appearance Overall: well-groomed, good eye contact 05/23/2018 None Full Exam - General 1994 Abdomen abdominal exam Overall: normal bowel sounds 05/23/2018 None Full Exam - General 1994 Constitutional general appearance Development: well developed 05/03/2018 None Full Exam - General 1994 Constitutional general appearance Development: appears stated age 0805/03/2018 None Full Exam - General 1994 Eyes conjunctiva/eyelids Overall: conjunctiva clear 05/03/2018 None Full Exam - General 1994 Eyes conjunctiva/eyelids Overall: cornea clear 05/03/2018 None Full Exam - General 1994 Eyes conjunctiva/eyelids Overall: eyelids normal 05/03/2018 None Full Exam - General 1994 Eyes pupils and irises Overall: pupils equal, round, reactive to light and accomodation 05/03/2018 None Full Exam - General 1994 Ears/Nose/Throat otoscopic exam Overall: external auditory canals clear 05/03/2018 None Full Exam - General 1994 Ears/Nose/Throat otoscopic exam Overall: tympanic membranes clear 05/03/2018 None Full Exam - General 1994 Ears/Nose/Throat lips/teeth/gingiva Overall: benign lips 05/03/2018 None Full Exam - General 1994 Ears/Nose/Throat lips/teeth/gingiva Teeth: wears dentures 05/03/2018 None Full Exam - General 1994 Ears/Nose/Throat oral cavity/pharynx/larynx Overall: oral mucosa clear 05/03/2018 None Full Exam - General 1994 Respiratory auscultation Overall: breath sounds clear bilaterally 05/03/2018 None Full Exam - General 1994 Respiratory respiratory effort/rhythm Overall: no retractions 05/03/2018 None Full Exam - General 1994 Respiratory respiratory effort/rhythm Overall: normal rate 05/03/2018 None Full Exam - General 1994 Cardiovascular extremities Edema present: pitting 05/03/2018 None Full Exam - General 1994 Cardiovascular extremities Edema present: severity 1+ - 4+: trace ankles 05/03/2018 None Full Exam - General 1994 Cardiovascular extremities Edema present: bilateral 05/03/2018 None Full Exam - General 1994 Cardiovascular auscultation of heart Overall: regular rate 05/03/2018 None Full Exam - General 1994 Cardiovascular auscultation of heart Overall: normal heart sounds 05/03/2018 None Full Exam - General 1994 Abdomen abdominal exam Overall: no tenderness 05/03/2018 None Full Exam - General 1994 Abdomen abdominal exam Overall: normal bowel sounds 05/03/2018 None Full Exam - General 1994 Lymphatic neck nodes Overall: anterior cervical chain benign 05/03/2018 None Full Exam - General 1994 Lymphatic neck nodes Overall: posterior cervical chain benign 05/03/2018 None Full Exam - General 1994 Neurologic cranial nerves Overall: crainial nerves 2 - 12 grossly intact 05/03/2018 None Full Exam - General 1994 Psychiatric orientation/consciousness Overall: oriented to person, place and time 05/03/2018 None Full Exam - General 1994 Musculoskeletal upper extremity Palpation - shoulder: tenderness @ bicipital groove 05/03/2018 None Full Exam - General 1994 Musculoskeletal upper extremity Palpation - shoulder: acromioclavicular joint tenderness 05/03/2018 None Full Exam - General 1994 Constitutional general appearance Development: well developed 01/30/2018 None Full Exam - General 1994 Constitutional general appearance Development: appears stated age 0501/30/2018 None Full Exam - General 1994 Eyes conjunctiva/eyelids Overall: conjunctiva clear 01/30/2018 None Full Exam - General 1994 Eyes conjunctiva/eyelids Overall: cornea clear 01/30/2018 None Full Exam - General 1994 Eyes conjunctiva/eyelids Overall: eyelids normal 01/30/2018 None Full Exam - General 1994 Eyes pupils and irises Overall: pupils equal, round, reactive to light and accomodation 01/30/2018 None Full Exam - General 1994 Ears/Nose/Throat otoscopic exam Overall: external auditory canals clear 01/30/2018 None Full Exam - General 1994 Ears/Nose/Throat otoscopic exam Overall: tympanic membranes clear 01/30/2018 None Full Exam - General 1994 Ears/Nose/Throat lips/teeth/gingiva Overall: benign lips 01/30/2018 None Full Exam - General 1994 Ears/Nose/Throat lips/teeth/gingiva Teeth: wears dentures 01/30/2018 None Full Exam - General 1994 Ears/Nose/Throat oral cavity/pharynx/larynx Overall: oral mucosa clear 01/30/2018 None Full Exam - General 1994 Neck inspection of neck Overall: normal size 01/30/2018 None Full Exam - General 1994 Neck inspection of neck Overall: normal appearance 01/30/2018 None Full Exam - General 1994 Respiratory auscultation Overall: breath sounds clear bilaterally 01/30/2018 None Full Exam - General 1994 Respiratory respiratory effort/rhythm Overall: no retractions 01/30/2018 None Full Exam - General 1994 Respiratory respiratory effort/rhythm Overall: normal rate 01/30/2018 None Full Exam - General 1994 Cardiovascular extremities Edema present: pitting 01/30/2018 None Full Exam - General 1994 Cardiovascular extremities Edema present: severity 1+ - 4+: trace ankles 01/30/2018 None Full Exam - General 1994 Cardiovascular extremities Edema present: bilateral 01/30/2018 None Full Exam - General 1994 Cardiovascular auscultation of heart Overall: regular rate 01/30/2018 None Full Exam - General 1994 Cardiovascular auscultation of heart Overall: normal heart sounds 01/30/2018 None Full Exam - General 1994 Abdomen abdominal exam Overall: no tenderness 01/30/2018 None Full Exam - General 1994 Abdomen abdominal exam Overall: normal bowel sounds 01/30/2018 None Full Exam - General 1994 Lymphatic neck nodes Overall: anterior cervical chain benign 01/30/2018 None Full Exam - General 1994 Lymphatic neck nodes Overall: posterior cervical chain benign 01/30/2018 None Full Exam - General 1994 Neurologic cranial nerves Overall: crainial nerves 2 - 12 grossly intact 01/30/2018 None Full Exam - General 1994 Psychiatric orientation/consciousness Overall: oriented to person, place and time 01/30/2018 None Full Exam - General 1994 Constitutional general appearance Development: well developed 12/18/2017 None Full Exam - General 1994 Constitutional general appearance Development: appears stated age 0412/18/2017 None Full Exam - General 1994 Eyes conjunctiva/eyelids Overall: conjunctiva clear 12/18/2017 None Full Exam - General 1994 Eyes conjunctiva/eyelids Overall: cornea clear 12/18/2017 None Full Exam - General 1994 Eyes conjunctiva/eyelids Overall: eyelids normal 12/18/2017 None Full Exam - General 1994 Eyes pupils and irises Overall: pupils equal, round, reactive to light and accomodation 12/18/2017 None Full Exam - General 1994 Ears/Nose/Throat otoscopic exam Overall: external auditory canals clear 12/18/2017 None Full Exam - General 1994 Ears/Nose/Throat otoscopic exam Overall: tympanic membranes clear 12/18/2017 None Full Exam - General 1994 Ears/Nose/Throat lips/teeth/gingiva Overall: benign lips 12/18/2017 None Full Exam - General 1994 Ears/Nose/Throat lips/teeth/gingiva Teeth: wears dentures 12/18/2017 None Full Exam - General 1994 Ears/Nose/Throat oral cavity/pharynx/larynx Overall: oral mucosa clear 12/18/2017 None Full Exam - General 1994 Neck inspection of neck Overall: normal size 12/18/2017 None Full Exam - General 1994 Neck inspection of neck Overall: normal appearance 12/18/2017 None Full Exam - General 1994 Respiratory auscultation Overall: breath sounds clear bilaterally 12/18/2017 None Full Exam - General 1994 Respiratory respiratory effort/rhythm Overall: no retractions 12/18/2017 None Full Exam - General 1994 Respiratory respiratory effort/rhythm Overall: normal rate 12/18/2017 None Full Exam - General 1994 Cardiovascular extremities Edema present: pitting 12/18/2017 None Full Exam - General 1994 Cardiovascular extremities Edema present: severity 1+ - 4+: trace ankles 12/18/2017 None Full Exam - General 1994 Cardiovascular extremities Edema present: bilateral 12/18/2017 None Full Exam - General 1994 Cardiovascular auscultation of heart Overall: regular rate 12/18/2017 None Full Exam - General 1994 Cardiovascular auscultation of heart Overall: normal heart sounds 12/18/2017 None Full Exam - General 1994 Abdomen abdominal exam Overall: no tenderness 12/18/2017 None Full Exam - General 1994 Abdomen abdominal exam Overall: normal bowel sounds 12/18/2017 None Full Exam - General 1994 Lymphatic neck nodes Overall: anterior cervical chain benign 12/18/2017 None Full Exam - General 1994 Lymphatic neck nodes Overall: posterior cervical chain benign 12/18/2017 None Full Exam - General 1994 Neurologic cranial nerves Overall: crainial nerves 2 - 12 grossly intact 12/18/2017 None Full Exam - General 1994 Psychiatric orientation/consciousness Overall: oriented to person, place and time 12/18/2017 None Full Exam - General 1994 Constitutional general appearance Development: well developed 11/28/2017 None Full Exam - General 1994 Constitutional general appearance Development: appears stated age 0311/28/2017 None Full Exam - General 1994 Eyes conjunctiva/eyelids Overall: conjunctiva clear 11/28/2017 None Full Exam - General 1994 Eyes conjunctiva/eyelids Overall: cornea clear 11/28/2017 None Full Exam - General 1994 Eyes conjunctiva/eyelids Overall: eyelids normal 11/28/2017 None Full Exam - General 1994 Eyes pupils and irises Overall: pupils equal, round, reactive to light and accomodation 11/28/2017 None Full Exam - General 1994 Ears/Nose/Throat otoscopic exam Overall: external auditory canals clear 11/28/2017 None Full Exam - General 1994 Ears/Nose/Throat otoscopic exam Overall: tympanic membranes clear 11/28/2017 None Full Exam - General 1994 Ears/Nose/Throat lips/teeth/gingiva Overall: benign lips 11/28/2017 None Full Exam - General 1994 Ears/Nose/Throat lips/teeth/gingiva Teeth: wears dentures 11/28/2017 None Full Exam - General 1994 Ears/Nose/Throat oral cavity/pharynx/larynx Overall: oral mucosa clear 11/28/2017 None Full Exam - General 1994 Neck inspection of neck Overall: normal size 11/28/2017 None Full Exam - General 1994 Neck inspection of neck Overall: normal appearance 11/28/2017 None Full Exam - General 1994 Respiratory auscultation Overall: breath sounds clear bilaterally 11/28/2017 None Full Exam - General 1994 Respiratory respiratory effort/rhythm Overall: no retractions 11/28/2017 None Full Exam - General 1994 Respiratory respiratory effort/rhythm Overall: normal rate 11/28/2017 None Full Exam - General 1994 Cardiovascular extremities Edema present: pitting 11/28/2017 None Full Exam - General 1994 Cardiovascular extremities Edema present: severity 1+ - 4+: trace ankles 11/28/2017 None Full Exam - General 1994 Cardiovascular extremities Edema present: bilateral 11/28/2017 None Full Exam - General 1994 Cardiovascular auscultation of heart Overall: regular rate 11/28/2017 None Full Exam - General 1994 Cardiovascular auscultation of heart Overall: normal heart sounds 11/28/2017 None Full Exam - General 1994 Abdomen abdominal exam Overall: no tenderness 11/28/2017 None Full Exam - General 1994 Abdomen abdominal exam Overall: normal bowel sounds 11/28/2017 None Full Exam - General 1994 Lymphatic neck nodes Overall: anterior cervical chain benign 11/28/2017 None Full Exam - General 1994 Lymphatic neck nodes Overall: posterior cervical chain benign 11/28/2017 None Full Exam - General 1994 Psychiatric orientation/consciousness Overall: oriented to person, place and time 11/28/2017 None Full Exam - General 1994 Neurologic cranial nerves Overall: crainial nerves 2 - 12 grossly intact 11/28/2017 None Full Exam - General 1994 Constitutional general appearance Overall: well developed 10/10/2017 None Full Exam - General 1994 Constitutional general appearance Overall: in no acute distress 10/10/2017 None Full Exam - General 1994 Constitutional general appearance Overall: well nourished 10/10/2017 None Full Exam - General 1995 Eyes conjunctiva/eyelids Overall: conjunctiva clear 10/10/2017 None Full Exam - General 1995 Eyes conjunctiva/eyelids Overall: cornea clear 10/10/2017 None Full Exam - General 1995 Eyes conjunctiva/eyelids Overall: eyelids normal 10/10/2017 None Full Exam [...] Cardiovascular extremities Edema present: severity 1+ - 4+: trace ankles 10/10/2017 None Full Exam - [...] None Full Exam - General 1994 Eyes conjunctiva/eyelids Overall: conjunctiva clear 09/26/2017 None Full Exam - General 1994 Eyes conjunctiva/eyelids Overall: cornea clear 09/26/2017 None Full Exam - General 1994 Eyes conjunctiva/eyelids Overall: eyelids normal 09/26/2017 None Full Exam [...] Cardiovascular extremities Edema present: severity 1+ - 4+: trace ankles 09/26/2017 None Full Exam - [...] None Full Exam - General 1994 Eyes conjunctiva/eyelids Overall: conjunctiva clear 08/16/2017 None Full Exam - General 1994 Eyes conjunctiva/eyelids Overall: cornea clear 08/16/2017 None Full Exam - General 1994 Eyes conjunctiva/eyelids Overall: eyelids normal 08/16/2017 None Full Exam [...] None Full Exam - General 1994 Eyes conjunctiva/eyelids Overall: conjunctiva clear 07/18/2017 None Full Exam - General 1994 Eyes conjunctiva/eyelids Overall: cornea clear 07/18/2017 None Full Exam - General 1994 Eyes conjunctiva/eyelids Overall: eyelids normal 07/18/2017 None Full Exam [...] Cardiovascular extremities Edema present: severity 1+ - 4+: trace ankles 07/18/2017 None Full Exam - [...] None Full Exam - General 1994 Eyes conjunctiva/eyelids Overall: conjunctiva clear 05/16/2017 None Full Exam - General 1994 Eyes conjunctiva/eyelids Overall: cornea clear 05/16/2017 None Full Exam - General 1994 Eyes conjunctiva/eyelids Overall: eyelids normal 05/16/2017 None Full Exam [...] Cardiovascular extremities Edema present: severity 1+ - 4+: trace ankles 05/16/2017 None Full Exam - General 1994 Constitutional general appearance Development: well developed 03/14/2017 None Full Exam - General 1994 Constitutional general appearance Development: appears stated age 0703/14/2017 None Full Exam - General 1994 Eyes conjunctiva/eyelids Overall: conjunctiva clear 03/14/2017 None Full Exam - General 1994 Eyes conjunctiva/eyelids Overall: cornea clear 03/14/2017 None Full Exam - General 1994 Eyes conjunctiva/eyelids Overall: eyelids normal 03/14/2017 None Full Exam [...] None Full Exam - General 1994 Eyes conjunctiva/eyelids Overall: conjunctiva clear 01/12/2017 None Full Exam - General 1994 Eyes conjunctiva/eyelids Overall: cornea clear 01/12/2017 None Full Exam - General 1994 Eyes conjunctiva/eyelids Overall: eyelids normal 01/12/2017 None Full Exam [...] None Full Exam - General 1994 Eyes conjunctiva/eyelids Overall: conjunctiva clear 12/12/2016 None Full Exam - General 1994 Eyes conjunctiva/eyelids Overall: cornea clear 12/12/2016 None Full Exam - General 1994 Eyes conjunctiva/eyelids Overall: eyelids normal 12/12/2016 None Full Exam [...] None Full Exam - General 1994 Eyes conjunctiva/eyelids Overall: conjunctiva clear 12/08/2016 None Full Exam - General 1994 Eyes conjunctiva/eyelids Overall: cornea clear 12/08/2016 None Full Exam - General 1994 Eyes conjunctiva/eyelids Overall: eyelids normal 12/08/2016 None Full Exam [...] None Full Exam - General 1994 Eyes conjunctiva/eyelids Overall: conjunctiva clear 11/03/2016 None Full Exam - General 1994 Eyes conjunctiva/eyelids Overall: cornea clear 11/03/2016 None Full Exam [...] None Full Exam - General 1994 Eyes conjunctiva/eyelids Overall: conjunctiva clear 10/06/2016 None Full Exam - General 1994 Eyes conjunctiva/eyelids Overall: cornea clear 10/06/2016 None Full Exam [...] General 1995 Ears/Nose/Throat lips/teeth/gingiva Overall: benign lips 10/06/2016 None Full Exam - General 1995 Ears/Nose/Throat lips/teeth/gingiva Overall: normal dentition 10/06/2016 None [...] None Full Exam - General 1994 Eyes conjunctiva/eyelids Overall: conjunctiva clear 09/06/2016 None Full Exam - General 1994 Eyes conjunctiva/eyelids Overall: cornea clear 09/06/2016 None Full Exam [...] None Full Exam - General 1994 Eyes conjunctiva/eyelids Overall: conjunctiva clear 08/23/2016 None Full Exam - General 1994 Eyes conjunctiva/eyelids Overall: cornea clear 08/23/2016 None Full Exam [...] None Full Exam - General 1994 Eyes conjunctiva/eyelids Overall: conjunctiva clear 04/26/2016 None Full Exam - General 1994 Eyes conjunctiva/eyelids Overall: cornea clear 04/26/2016 None Full Exam [...] None Full Exam - General 1994 Eyes conjunctiva/eyelids Eyelid: chalazion 04/26/2016 None Full Exam - General 1994 Eyes conjunctiva/eyelids Eyelid: erythema 04/26/2016 None Full Exam - General 1994 Abdomen abdominal exam Skin: presence of a scar 04/26/2016 multiple scars across abdomen down middle of abodmen, around umbilicus, and a puckered scar in right mid abdomen Procedures Procedure Codes Date THER/PROPH/DIAG INJ SC/IM CPT-4: 49871 12/27/2018 VITAMIN B12 INJECTION CPT- 4: J3420 12/27/2018 THER/PROPH/DIAG INJ SC/IM CPT-4: 50118 11/29/2018 VITAMIN B12 INJECTION CPT- 4: J3420 11/29/2018 THER/PROPH/DIAG INJ SC/IM CPT-4: 42850 10/29/2018 VITAMIN B12 INJECTION CPT- 4: J3420 10/29/2018 THER/PROPH/DIAG INJ SC/IM CPT-4: 81477 09/28/2018 VITAMIN B12 INJECTION CPT- 4: J3420 09/28/2018 THER/PROPH/DIAG INJ SC/IM CPT-4: 14937 08/30/2018 VITAMIN B12 INJECTION CPT- 4: J3420 08/30/2018 VITAMIN B12 INJECTION CPT- 4: J3420 07/31/2018 THER/PROPH/DIAG INJ SC/IM CPT-4: 40504 07/31/2018 THER/PROPH/DIAG INJ SC/IM CPT-4: 18884 07/02/2018 VITAMIN B12 INJECTION CPT- 4: J3420 07/02/2018 THER/PROPH/DIAG INJ SC/IM CPT-4: 27760 05/31/2018 ADMIN INFLUENZA VIRUS VAC CPT-4: G0008 05/31/2018 VITAMIN B12 INJECTION CPT- 4: J3420 05/31/2018 FLU VACC PRSV FREE INC ANTIG Formatting Model/CDA Sections, Assigned to/Mary Grace Rosado CPT-4: [id number] 05/31/2018 VITAMIN B12 INJECTION CPT- 4: J3420 05/03/2018 THER/PROPH/DIAG INJ SC/IM CPT-4: 99343 05/03/2018 THER/PROPH/DIAG INJ SC/IM CPT-4: 21901 04/04/2018 VITAMIN B12 INJECTION CPT- 4: J3420 04/04/2018 THER/PROPH/DIAG INJ SC/IM CPT-4: 16634 03/05/2018 VITAMIN B12 INJECTION CPT- 4: J3420 03/05/2018 VITAMIN B12 INJECTION CPT- 4: J3420 01/30/2018 THER/PROPH/DIAG INJ SC/IM CPT-4: 60251 01/30/2018 THER/PROPH/DIAG INJ SC/IM CPT-4: 56921 01/01/2018 VITAMIN B12 INJECTION CPT- 4: J3420 01/01/2018 PPPS, SUBSEQ VISIT CPT- 4: G0439 12/18/2017 THER/PROPH/DIAG INJ SC/IM CPT-4: 91115 11/28/2017 VITAMIN B12 INJECTION CPT- 4: J3420 11/28/2017 THER/PROPH/DIAG INJ SC/IM CPT-4: 66227 10/24/2017 VITAMIN B12 INJECTION CPT- 4: J3420 10/24/2017 THER/PROPH/DIAG INJ SC/IM CPT-4: 09967 09/26/2017 VITAMIN B12 INJECTION CPT- 4: J3420 09/26/2017 THER/PROPH/DIAG INJ SC/IM CPT-4: 67953 08/10/2017 VITAMIN B12 INJECTION CPT- 4: J3420 08/10/2017 THER/PROPH/DIAG INJ SC/IM CPT-4: 37607 07/18/2017 VITAMIN B12 INJECTION CPT- 4: J3420 07/18/2017 THER/PROPH/DIAG INJ SC/IM CPT-4: 66498 05/16/2017 VITAMIN B12 INJECTION CPT- 4: J3420 05/16/2017 THER/PROPH/DIAG INJ SC/IM CPT-4: 38781 03/14/2017 VITAMIN B12 INJECTION CPT- 4: J3420 03/14/2017 TRIAMCINOLONE ACET INJ NOS CPT-4: J3301 01/12/2017 ROCEPHIN, PER 250 MG CPT- 4: J0696 01/12/2017 VITAMIN B12 INJECTION CPT- 4: J3420 01/12/2017 THER/PROPH/DIAG INJ SC/IM CPT-4: 45092 01/12/2017 PPPS, SUBSEQ VISIT CPT- 4: G0439 12/12/2016 PNEUMOCOCCAL VACC [address]: 82743818 CPT-4: 71029 12/12/2016 ADMIN PNEUMOCOCCAL VACCINE SNOMED CT: [id number] CPT-4: G0009 12/12/2016 THER/PROPH/DIAG INJ SC/IM CPT-4: 78001 10/27/2016 VITAMIN B12 INJECTION CPT- 4: J3420 10/27/2016 THER/PROPH/DIAG INJ SC/IM CPT-4: 34651 07/27/2016 VITAMIN B12 INJECTION CPT- 4: J3420 07/27/2016 THER/PROPH/DIAG INJ SC/IM CPT-4: 57460 04/26/2016 VITAMIN B12 INJECTION CPT- 4: J3420 04/26/2016 Vital Signs Date Vital 01/08/2019 Blood Pressure 1: 138/82 Code: 8480-6 BMI: 26.0 Code: 28949-1 Heart Rate 1: 66 bpm Height: 5'7" SpO2: 97% Weight: 166 lbs 11/19/2018 Blood Pressure 1: 128/76 Code: 8480-6 BMI: 25.8 Code: 03055-6 Heart Rate 1: 76 bpm Height: 5'7" SpO2: 98% Weight: 165 lbs 08/15/2018 Blood Pressure 1: 144/66 Code: 8480-6 BMI: 25.1 Code: 83951-0 Heart Rate 1: 75 bpm Height: 5'7" SpO2: 98% Weight: 160 lbs 05/23/2018 Blood Pressure 1: 158/64 Code: 8480-6 BMI: 24.7 Code: 00662-6 Heart Rate 1: 76 bpm Height: 5'7" SpO2: 96% Temperature: 36.7 (C) / 98.1 (F) Weight: 158 lbs 05/03/2018 Blood Pressure 1: 122/72 Code: 8480-6 BMI: 25.1 Code: 19437-6 Heart Rate 1: 74 bpm Height: 5'7" SpO2: 97% Weight: 160 lbs 01/31/2018 Blood Pressure 1: 137/77 Code: 8480-6 Blood Pressure 2: 138/68 Code: 8480-6 Heart Rate 1: 67 bpm SpO2: 98% 01/30/2018 Blood Pressure 1: 138/66 Code: 8480-6 BMI: 25.1 Code: 68294-7 Heart Rate 1: 76 bpm Height: 5'7" SpO2: 94% Weight: 160 lbs 12/18/2017 Blood Pressure 1: 152/88 Code: 8480-6 BMI: 25.8 Code: 27068-1 Heart Rate 1: 68 bpm Height: 5'7" SpO2: 96% Weight: 165 lbs 11/28/2017 Blood Pressure 1: 150/76 Code: 8480-6 BMI: 25.2 Code: 36668-5 Heart Rate 1: 78 bpm Height: 5'7" SpO2: 98% Weight: 161 lbs 10/10/2017 Blood Pressure 1: 156/76 Code: 8480-6 BMI: 24.7 Code: 25266-0 Heart Rate 1: 71 bpm Height: 5'7" SpO2: 98% Weight: 158 lbs 09/26/2017 Blood Pressure 1: 162/82 Code: 8480-6 BMI: 24.7 Code: 73513-6 Heart Rate 1: 69 bpm Height: 5'7" SpO2: 99% Weight: 158 lbs 08/16/2017 Blood Pressure 1: 154/82 Code: 8480-6 BMI: 24.1 Code: 93239-3 Heart Rate 1: 58 bpm Height: 5'7" SpO2: 96% Weight: 154 lbs 07/18/2017 Blood Pressure 1: 152/88 Code: 8480-6 BMI: 25.2 Code: 18911-1 Heart Rate 1: 72 bpm Height: 5'7" SpO2: 98% Weight: 161 lbs 05/16/2017 Blood Pressure 1: 136/78 Code: 8480-6 BMI: 24.8 Code: 76396-2 Heart Rate 1: 71 bpm Height: 5'7" SpO2: 96% Weight: 158 lbs 8 oz 03/14/2017 Blood Pressure 1: 142/74 Code: 8480-6 BMI: 23.8 Code: 32115-8 Heart Rate 1: 69 bpm Height: 5'7" SpO2: 94% Weight: 152 lbs 01/12/2017 Blood Pressure 1: 156/90 Code: 8480-6 BMI: 23.4 Code: 56648-7 Heart Rate 1: 90 bpm Height: 5'7" SpO2: 97% Temperature: 37.4 (C) / 99.3 (F) Weight: 149 lbs 8 oz 12/12/2016 Blood Pressure 1: 140/78 Code: 8480-6 BMI: 24.3 Code: 35735-6 Heart Rate 1: 73 bpm Height: 5'7" SpO2: 96% Waist Measure (cm): 90 cm Weight: 155 lbs 12/08/2016 Blood Pressure 1: 148/84 Code: 8480-6 BMI: 24.3 Code: 85920-4 Heart Rate 1: 80 bpm Height: 5'7" SpO2: 96% Weight: 155 lbs 11/03/2016 Blood Pressure 1: 156/84 Code: 8480-6 Blood Pressure 2: 155/94 Code: 8480-6 BMI: 24.3 Code: 37307-2 Heart Rate 1: 81 bpm Height: 5'7" SpO2: 98% Weight: 155 lbs 10/06/2016 Blood Pressure 1: 175/95 Code: 8480-6 Heart Rate 1: 77 bpm Respiratory Rate: 16 bpm SpO2: 98% Temperature: 36.4 (C) / 97.5 (F) Weight: 157 lbs 09/06/2016 Blood Pressure 1: 136/80 Code: 8480-6 BMI: 24.1 Code: 00071-7 Heart Rate 1: 82 bpm Height: 5'8" SpO2: 97% Weight: 156 lbs 08/23/2016 Blood Pressure 1: 160/80 Code: 8480-6 BMI: 24.4 Code: 26500-3 Heart Rate 1: 88 bpm Height: 5'8" SpO2: 95% Weight: 158 lbs 04/26/2016 Blood Pressure 1: 156/74 Code: 8480-6 BMI: 24.5 Code: 91468-5 Heart Rate 1: 70 bpm Height: 5'8" SpO2: 97% Weight: 159 lbs Functional Status No Functional Status data History of Present Illness Symptom Name Status Result Effective Date Notes Quality enlarging 01/08/2019 None Quality firm 01/08/2019 None Quality raised 01/08/2019 None Quality red 01/08/2019 None Quality worsening 01/08/2019 None Location lower back 01/08/2019 None Onset and Resolution sudden in onset 01/08/2019 None Onset of Symptom 3 days ago 01/08/2019 None Frequency of Episodes daily 01/08/2019 None Triggers no known associated factors 01/08/2019 None Quality chronic 11/19/2018 None Quality intermittent 11/19/2018 None Quality primary hypertension 11/19/2018 None Onset and Resolution ongoing 11/19/2018 None Onset of Symptom during adulthood 11/19/2018 None Blood Pressure Values patient checking blood pressure at home - did not bring in readings 11/19/2018 None Alleviating Factors medication 11/19/2018 None Pertinent Findings dizziness 11/19/2018 None Pertinent Findings Denies dyspnea 11/19/2018 None Pertinent Findings edema 11/19/2018 in both ankles and feet Quality chronic 11/19/2018 None Quality intermittent 11/19/2018 None Quality stable 11/19/2018 None Onset and Resolution ongoing 11/19/2018 None Onset of Symptom years ago 11/19/2018 2006- he had colon surgery Frequency of Episodes unchanged 11/19/2018 None Alleviating Factors treatment medication 11/19/2018 (morphine ER) Quality intermittent 08/15/2018 None Quality primary hypertension 08/15/2018 None Onset and Resolution ongoing 08/15/2018 None Onset of Symptom during adulthood 08/15/2018 None Blood Pressure Values patient checking blood pressure at home - did not bring in readings 08/15/2018 None Alleviating Factors medication 08/15/2018 None Pertinent Findings dizziness 08/15/2018 None Pertinent Findings Denies dyspnea 08/15/2018 None Pertinent Findings edema 08/15/2018 in both ankles and feet Quality chronic 08/15/2018 None Quality intermittent 08/15/2018 None Quality stable 08/15/2018 None Onset and Resolution ongoing 08/15/2018 None Onset of Symptom years ago 08/15/2018 2006- he had colon surgery Alleviating Factors treatment medication 08/15/2018 (morphine ER) Quality chronic 08/15/2018 None Frequency of Episodes unchanged 08/15/2018 None sore throat Pertinent Findings Denies unable to swallow 05/23/2018 None sore throat Frequency of Episodes daily 05/23/2018 None sore throat Onset of Symptom 1 days ago 05/23/2018 None sore throat Onset and Resolution sudden in onset 05/23/2018 None hypertension Quality intermittent 05/03/2018 None hypertension Quality primary hypertension 05/03/2018 None hypertension Onset and Resolution ongoing 05/03/2018 None hypertension Onset of Symptom during adulthood 05/03/2018 None hypertension Alleviating Factors medication 05/03/2018 None hypertension Pertinent Findings Denies dizziness 05/03/2018 None hypertension Pertinent Findings Denies dyspnea 05/03/2018 None hypertension Pertinent Findings edema 05/03/2018 in both ankles and feet pain Quality chronic 05/03/2018 None pain Quality intermittent 05/03/2018 None pain Quality stable 05/03/2018 None pain Onset and Resolution ongoing 05/03/2018 None pain Onset of Symptom years ago 05/03/2018 2006- he had colon surgery pain Alleviating Factors treatment medication 05/03/2018 (morphine ER) hypertension Blood Pressure Values patient checking blood pressure at home - did not bring in readings 05/03/2018 None pain Location-Extremities on the right shoulder 05/03/2018 for a few days hypertension Quality intermittent 01/30/2018 None hypertension Quality primary hypertension 01/30/2018 None hypertension Onset and Resolution ongoing 01/30/2018 None hypertension Onset of Symptom during adulthood 01/30/2018 None hypertension Blood Pressure Values pt checking blood pressure - see scanned document 01/30/2018 None hypertension Alleviating Factors medication 01/30/2018 None hypertension Pertinent Findings Denies dizziness 01/30/2018 None hypertension Pertinent Findings Denies dyspnea 01/30/2018 None hypertension Pertinent Findings edema 01/30/2018 in both ankles and feet pain Quality chronic 01/30/2018 None pain Quality intermittent 01/30/2018 None pain Quality stable 01/30/2018 None pain Onset and Resolution ongoing 01/30/2018 None pain Onset of Symptom years ago 01/30/2018 2006- he had colon surgery pain Alleviating Factors treatment medication 01/30/2018 (morphine ER) Annual Medicare Wellness Exam Aspirin Use no 12/18/2017 None Annual Medicare Wellness Exam Alcohol Use drinks 2-3 six packs per week 12/18/2017 None Annual Medicare Wellness Exam Alcohol Use more than 5 drinks on one occasion _ 12/18/2017 None Annual Medicare Wellness Exam Smoking and Tobacco Use non smoker 12/18/2017 None Annual Medicare Wellness Exam Blood Glucose (self reported) don't know 12/18/2017 None Annual Medicare Wellness Exam Hemaglobin A-1C (self reported) don't know 12/18/2017 None Annual Medicare Wellness Exam Blood Pressure (self reported) diagnosed with hypertension 12/18/2017 None Annual Medicare Wellness Exam Blood Pressure (self reported) high (140/90 or higher) 12/18/2017 None Annual Medicare Wellness Exam Cholesterol (self reported) desireable (below 200) 12/18/2017 None Annual Medicare Wellness Exam Hours of Sleep 6 12/18/2017 None Annual Medicare Wellness Exam Depression (last 6 months) almost never 12/18/2017 None Annual Medicare Wellness Exam Depression or Hopelessness almost never 12/18/2017 None Annual Medicare Wellness Exam Handling Stress usually ravin effectively 12/18/2017 None Annual Medicare Wellness Exam Interaction with Friends yes 12/18/2017 None Annual Medicare Wellness Exam Interests & Pleasure some of the time 12/18/2017 None Annual Medicare Wellness Exam Stress almost never 12/18/2017 None Annual Medicare Wellness Exam Social & Emotional Support always 12/18/2017 None Annual Medicare Wellness Exam Sun Exposure protects skin when outdoors: sometimes 12/18/2017 None Annual Medicare Wellness Exam Motor Vehicle Safety always fastens seat belt: yes 12/18/2017 None Annual Medicare Wellness Exam Motor Vehicle Safety drives after drinking: no 12/18/2017 None Annual Medicare Wellness Exam Motor Vehicle Safety rides with someone who has been drinking: no 12/18/2017 None Annual Medicare Wellness Exam Describe Your Health good 12/18/2017 None Annual Medicare Wellness Exam Life Satisfaction satisfied 12/18/2017 None Annual Medicare Wellness Exam Exercise Habits exercises 1-2 days per week 12/18/2017 None Annual Medicare Wellness Exam Exercise Habits exercises 10-20 minutes per day 12/18/2017 None Annual Medicare Wellness Exam Nutrition servings of fried food / high fat foods per day: 0-1 12/18/2017 None Annual Medicare Wellness Exam Nutrition servings of vegetables / fruit per day: 0-2 12/18/2017 None Annual Medicare Wellness Exam Nutrition servings of high fiber / whole grain per day: 0-1 12/18/2017 None hypertension Quality intermittent 11/28/2017 None hypertension Quality primary hypertension 11/28/2017 None hypertension Onset and Resolution ongoing 11/28/2017 None hypertension Onset of Symptom during adulthood 11/28/2017 None hypertension Alleviating Factors medication 11/28/2017 None hypertension Pertinent Findings Denies dizziness 11/28/2017 None hypertension Pertinent Findings Denies dyspnea 11/28/2017 None hypertension Pertinent Findings edema 11/28/2017 in both ankles and feet pain Quality chronic 11/28/2017 None pain Quality intermittent 11/28/2017 None pain Quality stable 11/28/2017 None pain Onset and Resolution ongoing 11/28/2017 None pain Onset of Symptom years ago 11/28/2017 2006- he had colon surgery pain Alleviating Factors treatment medication 11/28/2017 (morphine ER) hypertension Blood Pressure Values pt checking blood pressure - see scanned document 11/28/2017 None hypertension Quality intermittent 10/10/2017 None hypertension Quality [...] Quality intermittent 09/26/2017 None pain Quality stable 09/26/2017 None gastroesophageal reflux Quality constant 08/16/2017 None [...] checking blood pressure - see scanned document 05/16/2017 None blood pressure followup Frequency of Episodes [...] checking blood pressure - see scanned document 03/14/2017 None blood pressure followup Frequency of Episodes [...] checking blood pressure - see scanned document 01/12/2017 None blood pressure followup Frequency of Episodes [...] the lung 01/12/2017 None cough Quality acute 01/12/2017 None cough Quality intermittent 01/12/2017 None cough [...] Annual Medicare Wellness Exam Hemaglobin A-1C (self reported) never checked 12/12/2016 None Annual Medicare Wellness Exam Blood Pressure (self reported) high (140/90 or higher) 12/12/2016 None Annual [...] with someone who has been drinking: no 12/12/2016 None Annual Medicare Wellness Exam Life Satisfaction satisfied 12/12/2016 None Annual Medicare Wellness Exam Nutrition servings of fried food / high fat foods per day: 0-1 12/12/2016 None Annual Medicare Wellness Exam Nutrition [...] checking blood pressure - see scanned document 12/08/2016 None blood pressure followup Frequency of Episodes [...] checking blood pressure - see scanned document 11/03/2016 None blood pressure followup Frequency of Episodes [...] checking blood pressure - see scanned document 10/06/2016 None blood pressure followup Frequency of Episodes [...] checking blood pressure - see scanned document 09/06/2016 None blood pressure followup Frequency of Episodes [...] checking blood pressure - see scanned document 08/23/2016 None blood pressure followup Frequency of Episodes [...] abdominal pain 04/26/2016 None _ Quality chronic 04/26/2016 None _ Onset and Resolution relatively stable while taking morphine 04/26/2016 None _ Additional Comments pt is post-op from multiple abdominal surgeries, bowel resection, stomach resection 04/26/2016 None Advance Directives No Advance Directive data Encounters Encounter Performer Location Codes Date ( 94586 EST. PATIENT, LEVEL III Diagnosis: Sebaceous cyst[ICD10: L72.3] Ana Paris MD, [facility] CPT-4: 72982 01/08/2019 ([id number]) 35824 EST. PATIENT, LEVEL IV Diagnosis: Essential (primary) hypertension[ICD10: I10] Diagnosis: Chronic pain syndrome[ICD10: G89.4] Diagnosis: Epigastric pain[ICD10: R10.13] Andree Paris MD, [facility] CPT-4: 70719 11/19/2018 ([id number]) 24908 EST. PATIENT, LEVEL III Diagnosis: Essential (primary) hypertension[ICD10: I10] Andree Paris MD, [facility] CPT-4: 27802 08/15/2018 56642 EST. PATIENT, LEVEL III Diagnosis: Dysphagia, pharyngoesophageal phase[ICD10: R13.14] Teresa Paris MD, [facility] CPT-4: 60883 05/23/2018 ([id number]) 49752 EST. PATIENT, LEVEL IV Diagnosis: Essential (primary) hypertension[ICD10: I10] Diagnosis: Chronic pain syndrome[ICD10: G89.4] Diagnosis: 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 deficiency[ICD10: D51.0] Diagnosis: Other iron deficiency anemias[ICD10: D50.8] Diagnosis: Slow transit constipation[ICD10: K59.01] Andree Paris MD, [facility] CPT-4: 24845 05/03/2018 ([id number]) Miscellaneous no charge Diagnosis: Essential (primary) hypertension[ICD10: I10] Teresa Paris MD, [facility] CPT-4: 49167 01/31/2018 ([id number]) 00153 EST. PATIENT, LEVEL IV Diagnosis: Essential (primary) hypertension[ICD10: I10] Diagnosis: Chronic pain syndrome[ICD10: G89.4] Andree Paris MD, [facility] CPT- 4: 41012 01/30/2018 ([id number]) 34477 EST. PATIENT, LEVEL IV Diagnosis: Essential (primary) hypertension[ICD10: I10] Diagnosis: Chronic pain syndrome[ICD10: G89.4] Diagnosis: 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 deficiency[ICD10: D51.0] Diagnosis: Iron deficiency anemia, unspecified[ICD10: D50.9] Ana Paris MD, [facility] CPT-4: 25008 11/28/2017 22947 EST. PATIENT, LEVEL IV Diagnosis: Essential (primary) hypertension[ICD10: I10] Diagnosis: Slow transit constipation[ICD10: K59.01] Diagnosis: Chronic pain syndrome[ICD10: G89.4] Teresa Paris MD, [facility] CPT- 4: 21015 10/10/2017 38879 EST. PATIENT, LEVEL IV Diagnosis: 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 deficiency[ICD10: D51.0] Diagnosis: Essential (primary) hypertension[ICD10: I10] Diagnosis: Chronic pain syndrome[ICD10: G89.4] Teresa Paris MD, [facility] CPT- 4: 21536 09/26/2017 73867 EST. PATIENT, LEVEL III Diagnosis: Dysphagia, pharyngoesophageal phase[ICD10: R13.14] Teresa Paris MD, [facility] CPT-4: 41116 08/16/2017 ([id number]) 49281 EST. PATIENT, LEVEL IV Diagnosis: Essential (primary) hypertension[ICD10: I10] Diagnosis: Chronic pain syndrome[ICD10: G89.4] Diagnosis: 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 deficiency[ICD10: D51.0] Diagnosis: Iron deficiency anemia, unspecified[ICD10: D50.9] Diagnosis: Dysphagia, pharyngoesophageal phase[ICD10: R13.14] Ana Paris MD, [facility] CPT-4: 33072 07/18/2017 ([id number]) 22801 EST. PATIENT, LEVEL III Diagnosis: Essential (primary) hypertension[ICD10: I10] Diagnosis: Chronic pain syndrome[ICD10: G89.4] Diagnosis: 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 deficiency[ICD10: D51.0] Ana Paris MD, [facility] CPT-4: 62324 05/16/2017 ([id number]) 93745 EST. PATIENT, LEVEL III Diagnosis: Essential (primary) hypertension[ICD10: I10] Diagnosis: Chronic pain syndrome[ICD10: G89.4] Diagnosis: 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 deficiency[ICD10: D51.0] Ana Paris MD, [facility] CPT-4: 53731 03/14/2017 ([id number]) 03757 EST. PATIENT, LEVEL III Diagnosis: Cough[ICD10: R05] Diagnosis: Acute bronchitis, unspecified[ICD10: J20.9] Diagnosis: Chronic pain syndrome[ICD10: G89.4] Diagnosis: 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 deficiency[ICD10: D51.0] Ana Paris MD, [facility] CPT-4: 54695 01/12/2017 ([id number]) 27778 EST. PATIENT, LEVEL III Diagnosis: Essential (primary) hypertension[ICD10: I10] Diagnosis: Chronic pain syndrome[ICD10: G89.4] Ana Paris MD, [facility] CPT-4: 98551 12/08/2016 ([id number]) 73846 EST. PATIENT, LEVEL III Diagnosis: Essential (primary) hypertension[ICD10: I10] Ana Paris MD, [facility] CPT-4: 28854 11/03/2016 ([id number]) 50437 EST. PATIENT, LEVEL III Diagnosis: Essential (primary) hypertension[ICD10: I10] Ana Paris MD, [facility] CPT-4: 60778 10/06/2016 ([id number]) 27967 EST. PATIENT, LEVEL III Diagnosis: Essential (primary) hypertension[ICD10: I10] Ana Paris MD, [facility] CPT-4: 51948 09/06/2016 ([id number]) 34695 EST. PATIENT, LEVEL III Diagnosis: Essential (primary) hypertension[ICD10: I10] [facility] CPT-4: 27352 08/23/2016 ([id number]) OFFICE VISIT, NEW - LEVEL 4 Diagnosis: Noninfective gastroenteritis and colitis, unspecified[ICD10: K52.9] Diagnosis: 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 deficiency[ICD10: D51.0] Diagnosis: Iron deficiency anemia, unspecified[ICD10: D50.9] Diagnosis: Chalazion left upper eyelid[ICD10: H00.14] Diagnosis: Elevated blood-pressure reading, without diagnosis of hypertension[ICD10: R03.0] [facility] CPT-4: 59689 04/26/2016 Plan of Care Planned Activity Notes Codes Status Date Visit Plan: Sebaceous cyst -left lower back -rx for antibiotic provided for acute infection and instructed on use -return to clinic if not improving or if any worse- refer to Dr Parish for surgical removal of cyst- patient verbalized understanding of plan. 01/08/2019 Patient Education: Patient Medication Summary Completed 01/08/2019 Appointment: Injection 12/27/2018 Patient Education: Patient Medication Summary Completed 12/27/2018 Appointment: Injection 11/29/2018 Patient Education: Patient Medication Summary Completed 11/29/2018 Visit Plan: Hypertension - well controlled - continue with current medications, continue with no added salt diet. Pt has been encouraged to exercise daily. The pt has been advised to call the office if there are any acute concerns about change in blood pressure readings at home. Chronic Abdominal pain - pt has chronic pain - has been maintained on current medications, has not sought out other medications, only uses PRN pain medications as directed, and understands the consequences of over-medication. 11/19/2018 Appointment: [phone] [facility] (15 min) Moderate 11/19/2018 Patient Education: Patient Medication Summary Completed 11/19/2018 Appointment: Injection 10/29/2018 Patient Education: Patient Medication Summary Completed 10/29/2018 Appointment: Injection 09/28/2018 Patient Education: Patient Medication Summary Completed 09/28/2018 Appointment: Injection 08/30/2018 Patient Education: Patient Medication Summary Completed 08/30/2018 Visit Plan: Hypertension - well controlled - continue with current medications, continue with no added salt diet. Pt has been encouraged to exercise daily. The pt has been advised to call the office if there are any acute concerns about change in blood pressure readings at home. Intermittent dizziness - discussed with patient - he needs to increase fluids, call if dizziness worsens and we will have to consider decreasing or stopping his amlodipine 08/15/2018 Appointment: [facility] [phone] [facility] (15 min) Moderate 08/15/2018 Patient Education: Patient Medication Summary Completed 08/15/2018 Appointment: Injection 07/31/2018 Patient Education: Patient Medication Summary Completed 07/31/2018 Appointment: Injection 07/02/2018 Patient Education: Patient Medication Summary Completed 07/02/2018 Appointment: Injection 05/31/2018 Patient Education: Patient Medication Summary Completed 05/31/2018 Visit Plan: Dysphagia - discussed with Dr. Paris - will start pt on carafate and PPI - pt is to follow up with Dr. Parish on 05/23/18 at 1:30PM - pt is to update clinic with any changes in the current treatment plan. 05/23/2018 App[facility]ment[phone] [facility] (15 min) Moderate 05/23/2018 Patient Education: Patient Medication Summary Completed 05/23/2018 Visit Plan: Hypertension - well controlled - [...] directed, and understands the consequences of over-medication. Constipation - uncontrolled - I have discussed with the patient the need for adequate fiber and water intake to facilitate soft, easily passed stools. The pt noted understanding of our conversation. I have given the patient a recipe for "power pudding" - equal parts, bran flakes, prune juice, and apple sauce. The pt is to call if symptoms not improved on this regimen. Iron deficiency anemia - iron level last checked 6 months ago - this was improved - continue with current management. 05/03/2018 Appointment: [facility] [phone] [facility] (15 min) Moderate 05/03/2018 Patient Education: Patient Medication Summary Completed 05/03/2018 Appointment: Injection 04/04/2018 Patient Education: Patient Medication Summary Completed 04/04/2018 Appointment: Injection 03/05/2018 Patient Education: Patient Medication Summary Completed 03/05/2018 Appointment: Nurse Visit 01/31/2018 Patient Education: Patient Medication Summary Completed 01/31/2018 Visit Plan: Hypertension - well controlled - continue with current medications, continue with no added salt diet. Pt has been encouraged to exercise daily. The pt has been advised to call the office if there are any acute concerns about change in blood pressure readings at home. Vitamin B 12 deficiency - b12 shot today Chronic Pain Syndrome - pt has chronic pain - has been maintained on current medications, has not sought out other medications, only uses PRN pain medications as directed, and understands the consequences of over-medication. 01/30/2018 Appointment: [facility] [phone] [facility] (15 min) Moderate 01/30/2018 Patient Education: Patient Medication Summary Completed 01/30/2018 Appointment: Injection 01/01/2018 Patient Education: Patient Medication Summary Completed 01/01/2018 Visit Plan: Medicare Exam - today we [...] help decrease fall risk and to maintain independence in the home. Today we discussed the need for the patient to create paperwork for Advanced directives as well as for the patient to provide this office with a copy of her DOPA paperwork for health care surrogate. Hypertension - uncontrolled - the patient's medications [...] pt is to call for acute concerns. 12/18/2017 Appointment: [facility] [phone] [phone] [facility] - Annual Wellness Visit 12/18/2017 Patient Education: Patient Medication Summary Completed 12/18/2017 Visit Plan: Hypertension - continue with current medications, continue with [...] directed, and understands the consequences of over-medication. Iron def-check labs 11/28/2017 Visit Plan: Hypertension - continue with current medications, continue with [...] directed, and understands the consequences of over-medication. Iron def-check labs 11/28/2017 Appointment: [facility]el[facility] [phone] [phone] (30 min) Complex 11/28/2017 Patient Education: Patient Medication Summary Completed 11/28/2017 Care Plan: Iron And Tibc Pending 11/28/2017 Appointment: Injection 10/24/2017 Patient Education: Patient Medication Summary Completed 10/24/2017 Visit Plan: Hypertension - uncontrolled - the [...] directed, and understands the consequences of over-medication. Constipation - uncontrolled - I have discussed with the patient the need for adequate fiber and water intake to facilitate soft, easily passed stools. The pt noted understanding of our conversation. I have given the patient a recipe for "power pudding" - equal parts, bran flakes, prune juice, and apple sauce. The pt is to call if symptoms not improved on this regimen. 10/10/2017 Appointment: Teresa Bardales WPtel: [facility] (30 min) Complex 10/10/2017 Patient Education: Patient Medication Summary Completed 10/10/2017 Visit Plan: Hypertension - uncontrolled - the [...] and understands the consequences of over-medication. 09/26/2017 Appointment: Teresa Bardales WPtel: [facility] [place] (30 min) Complex 09/26/2017 Patient Education: Patient Medication Summary Completed 09/26/2017 Appointment: Teresa Bardales WPtel: [facility]3 [facility] (30 min) Complex 09/19/2017 Referral: External, Ordering Provider Referral Appointment Confirmed 08/17/2017 Visit Plan: Dysphagia - worsening since yesterday - will refer to Dr. Harper for possible EGD - pt is to notify clinic if symptoms do not improve, if they worsen, or with any acute changes, questions, or concerns. 08/16/2017 Appointment: Teresa Bardales WPtel: [phone] [facility] (30 min) Complex 08/16/2017 Patient Education: Patient Medication Summary Completed 08/16/2017 Care Plan: Referral Order SNOMED-CT : [id number] Pending 08/16/2017 Appointment: Injection 08/10/2017 Patient Education: [...] today first 07/18/2017 Appointment: Ana Pedraza WPtel: [phone] [phone] (30 min) Complex 07/18/2017 Patient Education: [...] directed, and understands the consequences of over-medication. 05/16/2017 Appointment: Ana Pedraza WPtel: [phone] [phone] (30 min) Complex 05/16/2017 Patient Education: [...] directed, and understands the consequences of over-medication. 03/14/2017 Appointment: Ana Pedraza WPtel: [facility] (30 min) Complex 03/14/2017 Patient Education: [...] directed, and understands the consequences of over-medication. 01/12/2017 Appointment: Ana Pedraza WPtel: [phone] [phone] (30 min) Complex 01/12/2017 Patient Education: [...] care surrogate. 12/12/2016 Appointment: Ana Pedraza WPtel: [facility] [address] [facility] - Annual Wellness Visit 12/12/2016 Patient Education: [...] directed, and understands the consequences of over-medication. 12/08/2016 Appointment: Ana Pedraza WPtel: [facility]3 [place] [phone] (30 min) Complex 12/08/2016 Patient Education: Patient [...] acute concerns. 11/03/2016 Appointment: Ana Pedraza WPtel: [phone] (30 min) Complex 11/03/2016 Patient Education: Patient [...] concerns. 10/06/2016 Appointment: [facility] Ped[facility]Ptel: [phone] [phone] (30 min) Complex 10/06/2016 Patient Education: Patient [...] concerns. 09/06/2016 Appointment: [facility] Ped[facility]Ptel: [phone] [phone] (30 min) Complex 09/06/2016 Patient Education: Patient [...] acute concerns. 08/23/2016 Appointment: [facility] Pedraza [facility]Ptel: [phone] [phone] (15 min) Moderate 08/23/2016 Patient Education: Patient [...] gentamycin. 04/26/2016 Appointment: [facility] [phone] [facility] New Patient 04/26/2016 Patient Education: Patient [...] The patient was advised of home safety evaluat ions and the need to make sure that [...] The patient was advised of home safety evaluat ions and the need to make sure that [...] in blood pressure readings at home. Chronic Abdominal pain - pt has chronic pain - has been maintained on current medications, has not sought out other medications, only uses PRN pain medications as directed, and understands the consequences of over-medication. CUT BACK ON SALTY FOODS-CANNED FOODS, FROZEN [...] is to call for acute concerns. . Medicare Exam - today we discussed [...] help decrease fall risk and to maintain independence in the home. Today we discussed the need for the patient to create paperwork for Advanced directives as well as for the patient to provide this office with a copy of her DOPA paperwork for health care surrogate. Hypertension - uncontrolled - the patient's medications [...] pt is to call for acute concerns. OKAY TO STAY OF THE WATER PILL MONITOR BLOOD PRESSURE AND BRING READINGS TO YOUR NEXT APPOINTMENT CHECK LABS TODAY-WE WILL CALL YOU WITH THE RESULTS . Hypertension - continue with current medications, continue with [...] directed, and understands the consequences of over-medication. Iron def-check labs OKAY TO STAY OF THE WATER PILL MONITOR BLOOD PRESSURE AND BRING READINGS TO YOUR NEXT APPOINTMENT CHECK LABS TODAY-WE WILL CALL YOU WITH THE RESULTS . Hypertension - continue with current medications, continue with [...] directed, and understands the consequences of over-medication. Iron def-check labs . Hypertension - uncontrolled - the patient's [...] directed, and understands the consequences of over-medication. if your blood pressure is at or below 110 - hold your evening dose of lisinopril Power Pudding: equal parts of prune juice, bran flakes, apple sauce - mix together, and take 1-2 tablespoons up to three times daily. The mixture will stay good in the fridge for 10 days. . Hypertension - well controlled - continue [...] directed, and understands the consequences of over-medication. Constipation - uncontrolled - I have discussed with the patient the need for adequate fiber and water intake to facilitate soft, easily passed stools. The pt noted understanding of our conversation. I have given the patient a recipe for "power pudding" - equal parts, bran flakes, prune juice, and apple sauce. The pt is to call if symptoms not improved on this regimen. Iron deficiency anemia - iron level last checked 6 months ago - this was improved - continue with current management. . Dysphagia - discussed with Dr. Paris - will start pt on carafate and PPI - pt is to follow up with Dr. Parish on 05/23/18 at 1:30PM - pt is to update clinic with any changes in the current treatment plan. . Hypertension - well controlled - continue with current medications, continue with no added salt diet. Pt has been encouraged to exercise daily. The pt has been advised to call the office if there are any acute concerns about change in blood pressure readings at home. Intermittent dizziness - discussed with patient - he needs to increase fluids, call if dizziness worsens and we will have to consider decreasing or stopping his amlodipine increase hydrochlorothiazide to 25mg daily - keep checking blood pressures and follow up in 1 month. . Hypertension - uncontrolled - the patient's [...] directed, and understands the consequences of over-medication. Constipation - uncontrolled - I have discussed with the patient the need for adequate fiber and water intake to facilitate soft, easily passed stools. The pt noted understanding of our conversation. I have given the patient a recipe for "power pudding" - equal parts, bran flakes, prune juice, and apple sauce. The pt is to call if symptoms not improved on this regimen. Kenalog 60 mg IM Rocephin 500mg B12 [...] change in blood pressure readings at home. Vitamin B 12 deficiency - b12 shot today Chronic Pain Syndrome - pt has chronic [...] and understands the consequences of over-medication. . Sebaceous cyst -left lower back -rx for antibiotic provided for acute infection and instructed on use -return to clinic if not improving or if any worse- refer to Dr Parish for surgical removal of cyst- patient verbalized understanding of plan. . Hypertension - well controlled - continue [...]
--- OUTSIDE RECORDS SUMMARY | 2019-02-13 09:13 | XMS REPORT | CCD ---
Author Author [facility]ree [facility] Organization [facility] Address [address] [place] [address] Phone Care Team Providers Care Data Center Architect Name Role Phone PP Unavailable CCM Unavailable Summary Purpose Interface Exchange Insurance Providers Payer name Policy type / Coverage type Covered democrat ID Effective Begin Date Effective End Date WPS Medicare Part B Medicare Part B [id number] Unknown Unknown FOR LIFE WPS Medicare Part B [id number] Unknown Unknown Family history Father Diagnosis Age At Onset No Known Diseases N/A Mother Diagnosis Age At Onset No Known Diseases N/A Social History Social History Element Codes Description Effective Dates Marital status Unknown 04/26/2016 Number of children Unknown 3 04/26/2016 Employment Unknown Retired 04/26/[address]: 1610079 Former smoker Quit 1968 04/26/[address]: 026013 Currently drinks alcohol 04/26/2016 Has the patient [...] Instructions doxycycline hyclate 100 mg tablet RxNorm: 5664234 1 Tablet(s) PO BID 01/08/2019 01/14/2019 Active morphine ER 30 mg tablet,extended release RxNorm: 181511 1 Tablet(s) PO daily 12/27/2018 01/25/2019 Active cyanocobalamin (vit B-12) 1,000 mcg/mL injection solution RxNorm: 362171 Milliliter(s) Inj 12/27/2018 12/27/2018 Inactive cyanocobalamin (vit B-12) 1,000 mcg/mL injection solution RxNorm: 093120 Milliliter(s) Inj 11/29/2018 11/29/2018 Inactive morphine ER 30 mg tablet,extended release RxNorm: 651150 1 Tablet(s) PO daily 10/29/2018 11/27/2018 Inactive cyanocobalamin (vit B-12) 1,000 mcg/mL injection solution RxNorm: 151469 Milliliter(s) Inj 10/29/2018 10/29/2018 Inactive cyanocobalamin (vit B-12) 1,000 mcg/mL injection solution RxNorm: 666650 Milliliter(s) Inj 09/28/2018 09/28/2018 Inactive morphine ER 30 mg tablet,extended release RxNorm: 684209 1 Tablet(s) PO daily 09/28/2018 10/27/2018 Inactive morphine ER 30 mg tablet,extended release RxNorm: 953648 1 Tablet(s) PO daily 08/30/2018 09/27/2018 Inactive cyanocobalamin (vit B-12) 1,000 mcg/mL injection solution RxNorm: 315106 Milliliter(s) Inj 08/30/2018 08/30/2018 Inactive cyanocobalamin (vit B-12) 1,000 mcg/mL injection solution RxNorm: 466163 Milliliter(s) Inj 07/31/2018 07/31/2018 Inactive morphine ER 30 mg tablet,extended release RxNorm: 757357 1 Tablet(s) PO daily 07/31/2018 08/29/2018 Inactive amlodipine 5 mg tablet RxNorm: 095634 1 Tablet(s) PO QPM 07/11/2018 01/06/2019 Inactive cyanocobalamin (vit B-12) 1,000 mcg/mL injection solution RxNorm: 057742 1 Milliliter(s) Inj 07/02/2018 07/02/2018 Inactive morphine ER 30 mg tablet,extended release RxNorm: 197343 1 Tablet(s) PO daily 07/02/2018 07/30/2018 Inactive morphine ER 30 mg tablet,extended release RxNorm: 351953 1 Tablet(s) PO daily 05/31/2018 06/29/2018 Inactive cyanocobalamin (vit B-12) 1,000 mcg/mL injection solution RxNorm: 403221 Milliliter(s) Inj 05/31/2018 05/31/2018 Inactive Protonix 40 mg tablet,delayed release RxNorm: 061252 1 Tablet(s) PO daily 05/23/2018 06/21/2018 Inactive Carafate 1 gram tablet RxNorm: 496526 1 Tablet(s) PO AC & HS as needed 05/23/2018 06/21/2018 Inactive cyanocobalamin (vit B-12) 1,000 mcg/mL injection solution RxNorm: 468439 1 Milliliter(s) Inj 05/03/2018 05/03/2018 Inactive morphine ER 30 mg tablet,extended release RxNorm: 440812 1 Tablet(s) PO daily 04/04/2018 05/03/2018 Inactive cyanocobalamin (vit B-12) 1,000 mcg/mL injection solution RxNorm: 651184 1 Milliliter(s) Inj 04/04/2018 04/04/2018 Inactive cyanocobalamin (vit B-12) 1,000 mcg/mL injection solution RxNorm: 425210 1 Milliliter(s) Inj 03/05/2018 03/05/2018 Inactive morphine ER 30 mg tablet,extended release RxNorm: 782813 1 Tablet(s) PO daily 03/05/2018 04/03/2018 Inactive cyanocobalamin (vit B-12) 1,000 mcg/mL injection solution RxNorm: 089596 1 Milliliter(s) Inj 01/30/2018 01/30/2018 Inactive cyanocobalamin (vit B-12) 1,000 mcg/mL injection solution RxNorm: 232781 1 Milliliter(s) Inj 01/01/2018 01/01/2018 Inactive morphine ER 30 mg tablet,extended release RxNorm: 253271 1 Tablet(s) PO daily 01/01/2018 01/30/2018 Inactive lisinopril 20 mg tablet RxNorm: 464105 1 Tablet(s) PO BID 12/18/2017 12/12/2018 Inactive amlodipine 5 mg tablet RxNorm: 676766 1 Tablet(s) PO QPM 12/18/2017 06/15/2018 Inactive cyanocobalamin (vit B-12) 1,000 mcg/mL injection solution RxNorm: 767074 1 Milliliter(s) Inj 11/28/2017 11/28/2017 Inactive morphine ER 30 mg tablet,extended release RxNorm: 664679 1 Tablet(s) PO daily 11/28/2017 12/27/2017 Inactive morphine ER 30 mg tablet,extended release RxNorm: 333928 1 Tablet(s) PO daily 11/09/2017 11/27/2017 Inactive cyanocobalamin (vit B-12) 1,000 mcg/mL injection solution RxNorm: 816408 1 Milliliter(s) Inj 10/24/2017 10/24/2017 Inactive morphine ER 30 mg tablet,extended release RxNorm: 492242 1 Tablet(s) PO daily 10/10/2017 11/08/2017 Inactive hydrochlorothiazide 25 mg tablet RxNorm: 574899 1 Tablet(s) PO daily 10/10/2017 11/08/2017 Inactive cyanocobalamin (vit B-12) 1,000 mcg/mL injection solution RxNorm: 407481 1 Milliliter(s) Inj 09/26/2017 09/26/2017 Inactive hydrochlorothiazide 12.5 mg tablet RxNorm: 546212 1 Tablet(s) PO daily 09/26/2017 10/25/2017 Inactive morphine ER 30 mg tablet,extended release RxNorm: 644761 1 Tablet(s) PO daily 09/12/2017 10/09/2017 Inactive cyanocobalamin (vit B-12) 1,000 mcg/mL injection solution RxNorm: 883853 1 Milliliter(s) Inj 08/10/2017 08/10/2017 Inactive morphine ER 30 mg tablet,extended release RxNorm: 947173 1 Tablet(s) PO daily 08/10/2017 09/08/2017 Inactive Vitamin B-12 1,000 mcg/mL injection solution RxNorm: 588676 1 Milliliter(s) Inj month 07/21/2017 No Stop Date Active B12 INJECTIONS MONTHLY cyanocobalamin (vit B-12) 1,000 mcg/mL injection solution RxNorm: 267327 1 Milliliter(s) Inj 07/18/2017 07/18/2017 Inactive morphine ER 30 mg tablet,extended release RxNorm: 562924 1 Tablet(s) PO daily 07/13/2017 08/09/2017 Inactive morphine ER 30 mg tablet,extended release RxNorm: 231592 1 Tablet(s) PO daily 06/15/2017 07/12/2017 Inactive cyanocobalamin (vit B-12) 1,000 mcg/mL injection solution RxNorm: 844493 1 Milliliter(s) Inj 05/16/2017 05/16/2017 Inactive morphine ER 30 mg tablet,extended release RxNorm: 553347 1 Tablet(s) PO daily 04/13/2017 05/12/2017 Inactive cyanocobalamin (vit B-12) 1,000 mcg/mL injection solution RxNorm: 227978 1 Milliliter(s) Inj 03/14/2017 03/14/2017 Inactive morphine ER 30 mg tablet,extended release RxNorm: 245073 1 Tablet(s) PO daily 03/14/2017 04/12/2017 Inactive morphine ER 30 mg tablet,extended release RxNorm: 764409 1 Tablet(s) PO daily 02/13/2017 03/13/2017 Inactive Kenalog 40 mg/mL suspension for injection RxNorm: 1973156 1 Milliliter(s) Inj 01/12/2017 01/12/2017 Inactive cyanocobalamin (vit B-12) 1,000 mcg/mL injection solution RxNorm: 273390 1 Milliliter(s) Inj 01/12/2017 01/12/2017 Inactive Zithromax Z-[place] 250 mg tablet RxNorm: 331182 1 Tablet(s) PO UD 01/12/2017 01/16/2017 Inactive ceftriaxone 500 mg solution for injection RxNorm: 6239728 1 Milliliter(s) Inj 01/12/2017 01/12/2017 Inactive Vitamin B-12 1,000 mcg/mL injection solution RxNorm: 529744 1 Milliliter(s) Inj EVERY OTHER MONTH 01/04/2017 07/20/2017 Inactive lisinopril 20 mg tablet RxNorm: 318835 1 Tablet(s) PO BID 01/02/2017 12/17/2017 Inactive lisinopril 20 mg tablet RxNorm: 732232 1 Tablet(s) PO BID 12/12/2016 01/01/2017 Inactive morphine ER 30 mg tablet,extended release RxNorm: 551385 1 Tablet(s) PO daily 12/08/2016 01/06/2017 Inactive lisinopril 20 mg tablet RxNorm: 203928 1 Tablet(s) PO BID 11/03/2016 12/11/2016 Inactive morphine ER 30 mg tablet,extended release RxNorm: 725253 1 Tablet(s) PO daily 11/03/2016 12/02/2016 Inactive cyanocobalamin (vit B-12) 1,000 mcg/mL injection solution RxNorm: 134089 1 Milliliter(s) Inj 10/27/2016 10/27/2016 Inactive lisinopril 10 mg tablet RxNorm: 335161 1 Tablet(s) PO BID 10/06/2016 11/02/2016 Inactive lisinopril 10 mg tablet RxNorm: 110876 1 Tablet(s) PO daily 09/06/2016 10/05/2016 Inactive morphine ER 30 mg tablet,extended release RxNorm: 064301 1 Tablet(s) PO daily 08/18/2016 09/16/2016 Inactive cyanocobalamin (vit B-12) 1,000 mcg/mL injection solution RxNorm: 581486 Milliliter(s) Inj 07/27/2016 07/27/2016 Inactive morphine ER 30 mg tablet,extended release RxNorm: 567113 1 Tablet(s) PO daily 07/21/2016 08/17/2016 Inactive morphine ER 30 mg tablet,extended release RxNorm: 634701 1 Tablet(s) PO daily 06/20/2016 07/19/2016 Inactive morphine ER 30 mg tablet,extended release RxNorm: 389775 1 Tablet(s) PO daily 05/20/2016 06/19/2016 Inactive cyanocobalamin (vit B-12) 1,000 mcg/mL injection solution RxNorm: 503062 1 Milliliter(s) Inj 04/26/2016 04/26/2016 Inactive gentamicin 0.3 % eye drops RxNorm: 251815 2 Drop(s) OPH Q4H 04/26/2016 05/02/2016 Inactive Vitamin B-12 1,000 mcg/mL injection solution RxNorm: 810267 1 Milliliter(s) Inj EVERY 3 MONTHS No Start Date 01/03/2017 Inactive Claritin 10 mg tablet RxNorm: 002885 1 Tablet(s) PO daily No Start Date 07/17/2017 Inactive Venofer intravenous RxNorm: 98158 intravenous No Start Date 08/14/2018 Inactive morphine ER 30 mg tablet,extended release RxNorm: 999317 1 Tablet(s) PO daily No Start Date 04/25/2016 Inactive Medication Administered Medication Codes Instructions Start Date Status cyanocobalamin (vit B-12) 1,000 mcg/mL injection solution RxNorm: 492480 Milliliter 12/27/2018 No longer Active cyanocobalamin (vit B-12) 1,000 mcg/mL injection solution RxNorm: 677486 Milliliter 11/29/2018 No longer Active cyanocobalamin (vit B-12) 1,000 mcg/mL injection solution RxNorm: 960306 Milliliter 10/29/2018 No longer Active cyanocobalamin (vit B-12) 1,000 mcg/mL injection solution RxNorm: 325621 Milliliter 09/28/2018 No longer Active cyanocobalamin (vit B-12) 1,000 mcg/mL injection solution RxNorm: 165317 Milliliter 08/30/2018 No longer Active cyanocobalamin (vit B-12) 1,000 mcg/mL injection solution RxNorm: 471104 Milliliter 07/31/2018 No longer Active cyanocobalamin (vit B-12) 1,000 mcg/mL injection solution RxNorm: 446532 1Milliliter 07/02/2018 No longer Active cyanocobalamin (vit B-12) 1,000 mcg/mL injection solution RxNorm: 254476 Milliliter 05/31/2018 No longer Active cyanocobalamin (vit B-12) 1,000 mcg/mL injection solution RxNorm: 714103 1Milliliter 05/03/2018 No longer Active cyanocobalamin (vit B-12) 1,000 mcg/mL injection solution RxNorm: 999397 1Milliliter 04/04/2018 No longer Active cyanocobalamin (vit B-12) 1,000 mcg/mL injection solution RxNorm: 245923 1Milliliter 03/05/2018 No longer Active cyanocobalamin (vit B-12) 1,000 mcg/mL injection solution RxNorm: 902098 1Milliliter 01/30/2018 No longer Active cyanocobalamin (vit B-12) 1,000 mcg/mL injection solution RxNorm: 748946 1Milliliter 01/01/2018 No longer Active cyanocobalamin (vit B-12) 1,000 mcg/mL injection solution RxNorm: 629958 1Milliliter 11/28/2017 No longer Active cyanocobalamin (vit B-12) 1,000 mcg/mL injection solution RxNorm: 451118 1Milliliter 10/24/2017 No longer Active cyanocobalamin (vit B-12) 1,000 mcg/mL injection solution RxNorm: 968973 1Milliliter 09/26/2017 No longer Active cyanocobalamin (vit B-12) 1,000 mcg/mL injection solution RxNorm: 916746 1Milliliter 08/10/2017 No longer Active cyanocobalamin (vit B-12) 1,000 mcg/mL injection solution RxNorm: 290608 1Milliliter 07/18/2017 No longer Active cyanocobalamin (vit B-12) 1,000 mcg/mL injection solution RxNorm: 340899 1Milliliter 05/16/2017 No longer Active cyanocobalamin (vit B-12) 1,000 mcg/mL injection solution RxNorm: 996298 1Milliliter 03/14/2017 No longer Active Kenalog 40 mg/mL suspension for injection RxNorm: 5552436 1Milliliter 01/12/2017 No longer Active ceftriaxone 500 mg solution for injection RxNorm: 0983328 1Milliliter 01/12/2017 No longer Active cyanocobalamin (vit B-12) 1,000 mcg/mL injection solution RxNorm: 792809 1Milliliter 01/12/2017 No longer Active cyanocobalamin (vit B-12) 1,000 mcg/mL injection solution RxNorm: 809294 1Milliliter 10/27/2016 No longer Active cyanocobalamin (vit B-12) 1,000 mcg/mL injection solution RxNorm: 906574 Milliliter 07/27/2016 No longer Active cyanocobalamin (vit B-12) 1,000 mcg/mL injection solution RxNorm: 616976 1Milliliter 04/26/2016 No longer Active Immunizations Vaccine [...] Code Item Item Code Result Date B12 Fzf385 B12 453.00 pg/ml 11/15/2018 Comp Metabolic Edy751 NA 139 mEq/L 11/15/2018 Comp Metabolic Lkf881 K 4.5 mEq/L 11/15/2018 Comp Metabolic Fbo419 CL 105 mEq/L 11/15/2018 Comp Metabolic Sri693 CO2 28.0 mEq/L 11/15/2018 Comp Metabolic Xqq708 ANION GAP 11 11/15/2018 Comp Metabolic Ufu436 GLUCOSE 96 mg/dL 11/15/2018 Comp Metabolic Zks916 Creat 1.1 mg/dL 11/15/2018 Comp Metabolic Urc491 eGFR 68 ml/min/1.73m2 11/15/2018 Comp Metabolic Byc739 BUN 18 mg/dL 11/15/2018 Comp Metabolic Pje779 B/C Ratio 16.5 Ratio 11/15/2018 Comp Metabolic Aij707 CALCIUM 9.3 mg/dL 11/15/2018 Comp Metabolic Qyq226 ALK PHOS 72 U/L 11/15/2018 Comp Metabolic Ruq646 AST(SGOT) 21 U/L 11/15/2018 Comp Metabolic Pch615 ALT(SGPT) 13 U/L 11/15/2018 Comp Metabolic Msc341 BILI T 0.8 mg/dL 11/15/2018 Comp Metabolic Erj008 ALBUMIN 3.9 g/dL 11/15/2018 Comp Metabolic Iju124 TPRO 6.5 g/dL 11/15/2018 Comp Metabolic Adw935 GLOB 2.6 g/dL 11/15/2018 Comp Metabolic Ngh767 A/G Ratio 1.5 Ratio 11/15/2018 Comp Metabolic Ckt071 Osmo 279 mOsmo 11/15/2018 Tsh Ord6 TSH [...] 33.1 pg 11/15/2018 Cbc With Differential Ord2 Mccormick% 12.6 % 11/15/2018 Cbc With Differential Ord2 [...] 3.56 K/ul 11/15/2018 Cbc With Differential Ord2 Mccormick ABS# 1.2 K/ul 11/15/2018 Cbc With Differential [...] 32.9 pg 11/28/2017 Cbc With Differential Ord2 Mccormick% 12.6 % 11/28/2017 Cbc With Differential Ord2 [...] 2.87 K/ul 11/28/2017 Cbc With Differential Ord2 Mccormick ABS# 1.1 K/ul 11/28/2017 Cbc With Differential Ord2 Eos ABS# 0.3 K/ul 11/28/2017 Cbc With Differential Ord2 Baso ABS# 0.0 K/ul 11/28/2017 B12 Gcj846 B12 >1500.00 pg/ml 11/28/2017 Comp Metabolic Zyo025 NA 139 mEq/L 11/28/2017 Comp Metabolic Ygw407 K 5.2 mEq/L 11/28/2017 Comp Metabolic Lwk322 CL 106 mEq/L 11/28/2017 Comp Metabolic Jve670 CO2 28.0 mEq/L 11/28/2017 Comp Metabolic Utq186 ANION GAP 10 11/28/2017 Comp Metabolic Vcb372 GLUCOSE 89 mg/dL 11/28/2017 Comp Metabolic Oyw135 Creat 1.1 mg/dL 11/28/2017 Comp Metabolic Wox516 eGFR 66 ml/min/1.73m2 11/28/2017 Comp Metabolic Mbg260 BUN 18 mg/dL 11/28/2017 Comp Metabolic Thc315 B/C Ratio 16.1 Ratio 11/28/2017 Comp Metabolic Glk104 CALCIUM 9.2 mg/dL 11/28/2017 Comp Metabolic Pdg173 ALK PHOS 89 U/L 11/28/2017 Comp Metabolic Uyj515 AST(SGOT) 22 U/L 11/28/2017 Comp Metabolic Tvl393 ALT(SGPT) 15 U/L 11/28/2017 Comp Metabolic Nfk237 BILI T 0.6 mg/dL 11/28/2017 Comp Metabolic Ndc247 ALBUMIN 3.9 g/dL 11/28/2017 Comp Metabolic Gsj716 TPRO 6.5 g/dL 11/28/2017 Comp Metabolic Qti175 GLOB 2.6 g/dL 11/28/2017 Comp Metabolic Rwa074 A/G Ratio 1.5 Ratio 11/28/2017 Comp Metabolic Pwb220 Osmo 279 mOsmo 11/28/2017 Ferritin Ord22 FERRITIN [...] 33.7 pg 07/18/2017 Cbc With Differential Ord2 Mccormick% 12.3 % 07/18/2017 Cbc With Differential Ord2 [...] 2.90 K/ul 07/18/2017 Cbc With Differential Ord2 Mccormick ABS# 1.1 K/ul 07/18/2017 Cbc With Differential Ord2 Eos ABS# 0.2 K/ul 07/18/2017 Cbc With Differential Ord2 Baso ABS# 0.0 K/ul 07/18/2017 Comp Metabolic Udy704 NA 140 mEq/L 07/18/2017 Comp Metabolic Dek762 K 4.6 mEq/L 07/18/2017 Comp Metabolic Lcp959 CL 105 mEq/L 07/18/2017 Comp Metabolic Rsc493 CO2 29.0 mEq/L 07/18/2017 Comp Metabolic Hej066 ANION GAP 11 07/18/2017 Comp Metabolic Ixi485 GLUCOSE 96 mg/dL 07/18/2017 Comp Metabolic Duy048 Creat 1.0 mg/dL 07/18/2017 Comp Metabolic Ils232 eGFR 73 ml/min/1.73m2 07/18/2017 Comp Metabolic Mht895 BUN 12 mg/dL 07/18/2017 Comp Metabolic Vrn648 B/C Ratio 11.7 Ratio 07/18/2017 Comp Metabolic Awi065 CALCIUM 9.2 mg/dL 07/18/2017 Comp Metabolic Unl006 ALK PHOS 74 U/L 07/18/2017 Comp Metabolic Cbk348 AST(SGOT) 29 U/L 07/18/2017 Comp Metabolic Euh083 ALT(SGPT) 16 U/L 07/18/2017 Comp Metabolic Wkm073 BILI T 0.7 mg/dL 07/18/2017 Comp Metabolic Uis232 ALBUMIN 3.7 g/dL 07/18/2017 Comp Metabolic Ixl118 TPRO 6.5 g/dL 07/18/2017 Comp Metabolic Qzu030 GLOB 2.8 g/dL 07/18/2017 Comp Metabolic Vcm945 A/G Ratio 1.3 Ratio 07/18/2017 Comp Metabolic Fqb006 Osmo 279 mOsmo 07/18/2017 Iron Ord72 Iron 114 ug/dl 07/18/2017 B12 Uwl829 B12 233.00 pg/ml 07/18/2017 Tsh Ord6 hTSH [...] 33.3 pg 12/13/2016 Cbc With Differential Ord2 Mccormick% 17.9 % 12/13/2016 Cbc With Differential Ord2 [...] 2.71 K/ul 12/13/2016 Cbc With Differential Ord2 Mccormick ABS# 1.7 K/ul 12/13/2016 Cbc With Differential Ord2 Eos ABS# 0.3 K/ul 12/13/2016 Cbc With Differential Ord2 Baso ABS# 0.0 K/ul 12/13/2016 Comp Metabolic Baw268 NA 136 mEq/L 12/13/2016 Comp Metabolic Uge518 K 4.7 mEq/L 12/13/2016 Comp Metabolic Ejt062 CL 102 mEq/L 12/13/2016 Comp Metabolic Uvn341 CO2 26.0 mEq/L 12/13/2016 Comp Metabolic Xrp839 ANION GAP 13 12/13/2016 Comp Metabolic Mxl648 GLUCOSE 87 mg/dL 12/13/2016 Comp Metabolic Skd495 Creat 0.9 mg/dL 12/13/2016 Comp Metabolic Avm110 eGFR 83 ml/min/1.73m2 12/13/2016 Comp Metabolic Vel202 BUN 17 mg/dL 12/13/2016 Comp Metabolic Lpx085 B/C Ratio 18.3 Ratio 12/13/2016 Comp Metabolic Flv797 CALCIUM 9.1 mg/dL 12/13/2016 Comp Metabolic Ihx818 ALK PHOS 90 U/L 12/13/2016 Comp Metabolic Few544 AST(SGOT) 22 U/L 12/13/2016 Comp Metabolic Lev099 ALT(SGPT) 15 U/L 12/13/2016 Comp Metabolic Pfe574 BILI T 0.8 mg/dL 12/13/2016 Comp Metabolic Dad726 ALBUMIN 3.6 g/dL 12/13/2016 Comp Metabolic Tuh352 TPRO 6.4 g/dL 12/13/2016 Comp Metabolic Sdm447 GLOB 2.9 g/dL 12/13/2016 Comp Metabolic Mtk230 A/G Ratio 1.2 Ratio 12/13/2016 Comp Metabolic Hlj358 Osmo 273 mOsmo 12/13/2016 Lipid Ord30 CHOL 182 mg/dL 12/13/2016 Lipid Ord30 HDL 64.0 mg/dl 12/13/2016 Lipid Ord30 TRIG 62 mg/dL 12/13/2016 Lipid Ord30 LDL 106 mg/dL 12/13/2016 Lipid Ord30 C/HDL 2.8 Ratio 12/13/2016 Ferritin Ord22 FERRITIN 434.7 ng/mL 12/13/2016 B12 Vhk981 B12 247.00 pg/ml 12/13/2016 Tibc Ord40 Iron [...] 33.7 pg 04/27/2016 Cbc With Differential Ord2 Mccormick% 13.7 % 04/27/2016 Cbc With Differential Ord2 [...] 3.22 K/ul 04/27/2016 Cbc With Differential Ord2 Mccormick ABS# 1.2 K/ul 04/27/2016 Cbc With Differential Ord2 Eos ABS# 0.3 K/ul 04/27/2016 Cbc With Differential Ord2 Baso ABS# 0.0 K/ul 04/27/2016 Comp Metabolic Tyl467 NA 138 mEq/L 04/27/2016 Comp Metabolic Phm404 K 4.3 mEq/L 04/27/2016 Comp Metabolic Huv189 CL 104 mEq/L 04/27/2016 Comp Metabolic Dsh015 CO2 30.0 mEq/L 04/27/2016 Comp Metabolic Pgq970 ANION GAP 8 04/27/2016 Comp Metabolic Zjx182 GLUCOSE 87 mg/dL 04/27/2016 Comp Metabolic Sbt376 Creat 0.9 mg/dL 04/27/2016 Comp Metabolic Yaw998 eGFR 82 ml/min/1.73m2 04/27/2016 Comp Metabolic Vsi829 BUN 13 mg/dL 04/27/2016 Comp Metabolic Bor698 B/C Ratio 13.8 Ratio 04/27/2016 Comp Metabolic Uxz277 CALCIUM 9.0 mg/dL 04/27/2016 Comp Metabolic Kwb105 ALK PHOS 62 U/L 04/27/2016 Comp Metabolic Ewi205 AST(SGOT) 24 U/L 04/27/2016 Comp Metabolic Knn481 ALT(SGPT) 15 U/L 04/27/2016 Comp Metabolic Hmm548 BILI T 0.7 mg/dL 04/27/2016 Comp Metabolic Sxy127 ALBUMIN 3.6 g/dL 04/27/2016 Comp Metabolic Qoy184 TPRO 6.1 g/dL 04/27/2016 Comp Metabolic Mrt291 GLOB 2.5 g/dL 04/27/2016 Comp Metabolic Dvp203 A/G Ratio 1.4 Ratio 04/27/2016 Comp Metabolic Rlh080 Osmo 275 mOsmo 04/27/2016 B12 Hwa602 B12 >1500.00 pg/ml 04/27/2016 Iron Ord72 Iron [...] Procedure Codes Date THER/PROPH/DIAG INJ SC/IM CPT-4: 50167 12/27/2018 VITAMIN B12 INJECTION CPT- 4: J3420 12/27/2018 THER/PROPH/DIAG INJ SC/IM CPT-4: 25729 11/29/2018 VITAMIN B12 INJECTION CPT- 4: J3420 11/29/2018 THER/PROPH/DIAG INJ SC/IM CPT-4: 84349 10/29/2018 VITAMIN B12 INJECTION CPT- 4: J3420 10/29/2018 THER/PROPH/DIAG INJ SC/IM CPT-4: 80632 09/28/2018 VITAMIN B12 INJECTION CPT- 4: J3420 09/28/2018 THER/PROPH/DIAG INJ SC/IM CPT-4: 55218 08/30/2018 VITAMIN B12 INJECTION CPT- 4: J3420 08/30/2018 VITAMIN B12 INJECTION CPT- 4: J3420 07/31/2018 THER/PROPH/DIAG INJ SC/IM CPT-4: 63490 07/31/2018 THER/PROPH/DIAG INJ SC/IM CPT-4: 33733 07/02/2018 VITAMIN B12 INJECTION CPT- 4: J3420 07/02/2018 THER/PROPH/DIAG INJ SC/IM CPT-4: 58794 05/31/2018 ADMIN INFLUENZA VIRUS VAC CPT-4: G0008 05/31/2018 VITAMIN B12 INJECTION CPT- 4: J3420 05/31/2018 FLU VACC PRSV FREE INC ANTIG Formatting Model/CDA Sections, Assigned to/Mary Grace Rosado CPT-4: 25637Pqrhxau 05/31/2018 VITAMIN B12 INJECTION CPT- 4: J3420 05/03/2018 THER/PROPH/DIAG INJ SC/IM CPT-4: 72217 05/03/2018 THER/PROPH/DIAG INJ SC/IM CPT-4: 49320 04/04/2018 VITAMIN B12 INJECTION CPT- 4: J3420 04/04/2018 THER/PROPH/DIAG INJ SC/IM CPT-4: 89380 03/05/2018 VITAMIN B12 INJECTION CPT- 4: J3420 03/05/2018 VITAMIN B12 INJECTION CPT- 4: J3420 01/30/2018 THER/PROPH/DIAG INJ SC/IM CPT-4: 63772 01/30/2018 THER/PROPH/DIAG INJ SC/IM CPT-4: 62879 01/01/2018 VITAMIN B12 INJECTION CPT- 4: J3420 01/01/2018 PPPS, SUBSEQ VISIT CPT- 4: G0439 12/18/2017 THER/PROPH/DIAG INJ SC/IM CPT-4: 00576 11/28/2017 VITAMIN B12 INJECTION CPT- 4: J3420 11/28/2017 THER/PROPH/DIAG INJ SC/IM CPT-4: 33129 10/24/2017 VITAMIN B12 INJECTION CPT- 4: J3420 10/24/2017 THER/PROPH/DIAG INJ SC/IM CPT-4: 19169 09/26/2017 VITAMIN B12 INJECTION CPT- 4: J3420 09/26/2017 THER/PROPH/DIAG INJ SC/IM CPT-4: 67327 08/10/2017 VITAMIN B12 INJECTION CPT- 4: J3420 08/10/2017 THER/PROPH/DIAG INJ SC/IM CPT-4: 06153 07/18/2017 VITAMIN B12 INJECTION CPT- 4: J3420 07/18/2017 THER/PROPH/DIAG INJ SC/IM CPT-4: 72398 05/16/2017 VITAMIN B12 INJECTION CPT- 4: J3420 05/16/2017 THER/PROPH/DIAG INJ SC/IM CPT-4: 59623 03/14/2017 VITAMIN B12 INJECTION CPT- 4: J3420 03/14/2017 TRIAMCINOLONE ACET INJ NOS CPT-4: J3301 01/12/2017 ROCEPHIN, PER 250 MG CPT- 4: J0696 01/12/2017 VITAMIN B12 INJECTION CPT- 4: J3420 01/12/2017 THER/PROPH/DIAG INJ SC/IM CPT-4: 30810 01/12/2017 PPPS, SUBSEQ VISIT CPT- 4: G0439 12/12/2016 PNEUMOCOCCAL VACC [address]: 88718293 CPT-4: 29833 12/12/2016 ADMIN PNEUMOCOCCAL VACCINE SNOMED CT: 36960834 CPT-4: G0009 12/12/2016 THER/PROPH/DIAG INJ SC/IM CPT-4: 43272 10/27/2016 VITAMIN B12 INJECTION CPT- 4: J3420 10/27/2016 THER/PROPH/DIAG INJ SC/IM CPT-4: 79007 07/27/2016 VITAMIN B12 INJECTION CPT- 4: J3420 07/27/2016 THER/PROPH/DIAG INJ SC/IM CPT-4: 06353 04/26/2016 VITAMIN B12 INJECTION CPT- 4: J3420 04/26/2016 Vital Signs Date Vital 01/08/2019 Blood Pressure 1: 138/82 Code: 8480-6 BMI: 26.0 Code: 54442-2 Heart Rate 1: 66 bpm Height: 5'7" SpO2: 97% Weight: 166 lbs 11/19/2018 Blood Pressure 1: 128/76 Code: 8480-6 BMI: 25.8 Code: 94315-3 Heart Rate 1: 76 bpm Height: 5'7" SpO2: 98% Weight: 165 lbs 08/15/2018 Blood Pressure 1: 144/66 Code: 8480-6 BMI: 25.1 Code: 54339-0 Heart Rate 1: 75 bpm Height: 5'7" SpO2: 98% Weight: 160 lbs 05/23/2018 Blood Pressure 1: 158/64 Code: 8480-6 BMI: 24.7 Code: 76668-9 Heart Rate 1: 76 bpm Height: 5'7" SpO2: 96% Temperature: 36.7 (C) / 98.1 (F) Weight: 158 lbs 05/03/2018 Blood Pressure 1: 122/72 Code: 8480-6 BMI: 25.1 Code: 36896-7 Heart Rate 1: 74 bpm Height: 5'7" SpO2: 97% Weight: 160 lbs 01/31/2018 Blood Pressure 1: 137/77 Code: 8480-6 Blood Pressure 2: 138/68 Code: 8480-6 Heart Rate 1: 67 bpm SpO2: 98% 01/30/2018 Blood Pressure 1: 138/66 Code: 8480-6 BMI: 25.1 Code: 44400-3 Heart Rate 1: 76 bpm Height: 5'7" SpO2: 94% Weight: 160 lbs 12/18/2017 Blood Pressure 1: 152/88 Code: 8480-6 BMI: 25.8 Code: 97942-2 Heart Rate 1: 68 bpm Height: 5'7" SpO2: 96% Weight: 165 lbs 11/28/2017 Blood Pressure 1: 150/76 Code: 8480-6 BMI: 25.2 Code: 68817-5 Heart Rate 1: 78 bpm Height: 5'7" SpO2: 98% Weight: 161 lbs 10/10/2017 Blood Pressure 1: 156/76 Code: 8480-6 BMI: 24.7 Code: 07503-3 Heart Rate 1: 71 bpm Height: 5'7" SpO2: 98% Weight: 158 lbs 09/26/2017 Blood Pressure 1: 162/82 Code: 8480-6 BMI: 24.7 Code: 10942-4 Heart Rate 1: 69 bpm Height: 5'7" SpO2: 99% Weight: 158 lbs 08/16/2017 Blood Pressure 1: 154/82 Code: 8480-6 BMI: 24.1 Code: 00660-1 Heart Rate 1: 58 bpm Height: 5'7" SpO2: 96% Weight: 154 lbs 07/18/2017 Blood Pressure 1: 152/88 Code: 8480-6 BMI: 25.2 Code: 91214-8 Heart Rate 1: 72 bpm Height: 5'7" SpO2: 98% Weight: 161 lbs 05/16/2017 Blood Pressure 1: 136/78 Code: 8480-6 BMI: 24.8 Code: 13570-0 Heart Rate 1: 71 bpm Height: 5'7" SpO2: 96% Weight: 158 lbs 8 oz 03/14/2017 Blood Pressure 1: 142/74 Code: 8480-6 BMI: 23.8 Code: 18491-9 Heart Rate 1: 69 bpm Height: 5'7" SpO2: 94% Weight: 152 lbs 01/12/2017 Blood Pressure 1: 156/90 Code: 8480-6 BMI: 23.4 Code: 43843-4 Heart Rate 1: 90 bpm Height: 5'7" SpO2: 97% Temperature: 37.4 (C) / 99.3 (F) Weight: 149 lbs 8 oz 12/12/2016 Blood Pressure 1: 140/78 Code: 8480-6 BMI: 24.3 Code: 79801-9 Heart Rate 1: 73 bpm Height: 5'7" SpO2: 96% Waist Measure (cm): 90 cm Weight: 155 lbs 12/08/2016 Blood Pressure 1: 148/84 Code: 8480-6 BMI: 24.3 Code: 00484-9 Heart Rate 1: 80 bpm Height: 5'7" SpO2: 96% Weight: 155 lbs 11/03/2016 Blood Pressure 1: 156/84 Code: 8480-6 Blood Pressure 2: 155/94 Code: 8480-6 BMI: 24.3 Code: 88373-4 Heart Rate 1: 81 bpm Height: 5'7" SpO2: 98% Weight: 155 lbs 10/06/2016 Blood Pressure 1: 175/95 Code: 8480-6 Heart Rate 1: 77 bpm Respiratory Rate: 16 bpm SpO2: 98% Temperature: 36.4 (C) / 97.5 (F) Weight: 157 lbs 09/06/2016 Blood Pressure 1: 136/80 Code: 8480-6 BMI: 24.1 Code: 29366-4 Heart Rate 1: 82 bpm Height: 5'8" SpO2: 97% Weight: 156 lbs 08/23/2016 Blood Pressure 1: 160/80 Code: 8480-6 BMI: 24.4 Code: 67967-1 Heart Rate 1: 88 bpm Height: 5'8" SpO2: 95% Weight: 158 lbs 04/26/2016 Blood Pressure 1: 156/74 Code: 8480-6 BMI: 24.5 Code: 19273-2 Heart Rate 1: 70 bpm Height: 5'8" [...] Encounters Encounter Performer Location Codes Date ( 10348 EST. PATIENT, LEVEL III Diagnosis: Sebaceous cyst[ICD10: L72.3] Ana Paris MD, [facility] CPT-4: 63745 01/08/2019 ([id number]) 68310 EST. PATIENT, LEVEL IV Diagnosis: Essential (primary) hypertension[ICD10: I10] Diagnosis: Chronic pain syndrome[ICD10: G89.4] Diagnosis: Epigastric pain[ICD10: R10.13] Andree Paris MD, [facility] CPT-4: 35610 11/19/2018 ([id number]) 36622 EST. PATIENT, LEVEL III Diagnosis: Essential (primary) hypertension[ICD10: I10] Andree Paris MD, [facility] CPT-4: 24721 08/15/2018 59601 EST. PATIENT, LEVEL III Diagnosis: Dysphagia, pharyngoesophageal phase[ICD10: R13.14] Teresa Paris MD, [facility] CPT-4: 13040 05/23/2018 ([id number]) 35024 EST. PATIENT, LEVEL IV Diagnosis: Essential (primary) hypertension[ICD10: I10] Diagnosis: Chronic pain syndrome[ICD10: G89.4] Diagnosis: 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 deficiency[ICD10: D51.0] Diagnosis: Other iron deficiency anemias[ICD10: D50.8] Diagnosis: Slow transit constipation[ICD10: K59.01] Andree Paris MD, [facility] CPT-4: 75086 05/03/2018 ([id number]) Miscellaneous no charge Diagnosis: Essential (primary) hypertension[ICD10: I10] Teresa Paris MD, [facility] CPT-4: 10243 01/31/2018 ([id number]) 77509 EST. PATIENT, LEVEL IV Diagnosis: Essential (primary) hypertension[ICD10: I10] Diagnosis: Chronic pain syndrome[ICD10: G89.4] Andree Paris MD, [facility] CPT- 4: 93455 01/30/2018 ([id number]) 68712 EST. PATIENT, LEVEL IV Diagnosis: Essential (primary) hypertension[ICD10: I10] Diagnosis: Chronic pain syndrome[ICD10: G89.4] Diagnosis: 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 deficiency[ICD10: D51.0] Diagnosis: Iron deficiency anemia, unspecified[ICD10: D50.9] Ana Paris MD, [facility] CPT-4: 99578 11/28/2017 56562 EST. PATIENT, LEVEL IV Diagnosis: Essential (primary) hypertension[ICD10: I10] Diagnosis: Slow transit constipation[ICD10: K59.01] Diagnosis: Chronic pain syndrome[ICD10: G89.4] Teresa Paris MD, [facility] CPT- 4: 47699 10/10/2017 38648 EST. PATIENT, LEVEL IV Diagnosis: 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 deficiency[ICD10: D51.0] Diagnosis: Essential (primary) hypertension[ICD10: I10] Diagnosis: Chronic pain syndrome[ICD10: G89.4] Teresa Paris MD, [facility] CPT- 4: 36785 09/26/2017 41172 EST. PATIENT, LEVEL III Diagnosis: Dysphagia, pharyngoesophageal phase[ICD10: R13.14] Teresa Paris MD, [facility] CPT-4: 15625 08/16/2017 ([id number]) 61595 EST. PATIENT, LEVEL IV Diagnosis: Essential (primary) hypertension[ICD10: I10] Diagnosis: Chronic pain syndrome[ICD10: G89.4] Diagnosis: 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 deficiency[ICD10: D51.0] Diagnosis: Iron deficiency anemia, unspecified[ICD10: D50.9] Diagnosis: Dysphagia, pharyngoesophageal phase[ICD10: R13.14] Ana Paris MD, [facility] CPT-4: 53549 07/18/2017 ([id number]) 39003 EST. PATIENT, LEVEL III Diagnosis: Essential (primary) hypertension[ICD10: I10] Diagnosis: Chronic pain syndrome[ICD10: G89.4] Diagnosis: 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 deficiency[ICD10: D51.0] Ana Paris MD, [facility] CPT-4: 05276 05/16/2017 ([id number]) 58443 EST. PATIENT, LEVEL III Diagnosis: Essential (primary) hypertension[ICD10: I10] Diagnosis: Chronic pain syndrome[ICD10: G89.4] Diagnosis: 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 deficiency[ICD10: D51.0] Ana Paris MD, [facility] CPT-4: 70780 03/14/2017 ([id number]) 43898 EST. PATIENT, LEVEL III Diagnosis: Cough[ICD10: R05] Diagnosis: Acute bronchitis, unspecified[ICD10: J20.9] Diagnosis: Chronic pain syndrome[ICD10: G89.4] Diagnosis: 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 deficiency[ICD10: D51.0] Ana Paris MD, [facility] CPT-4: 92672 01/12/2017 ([id number]) 18658 EST. PATIENT, LEVEL III Diagnosis: Essential (primary) hypertension[ICD10: I10] Diagnosis: Chronic pain syndrome[ICD10: G89.4] Ana Paris MD, [facility] CPT-4: 17150 12/08/2016 ([id number]) 26953 EST. PATIENT, LEVEL III Diagnosis: Essential (primary) hypertension[ICD10: I10] Ana Paris MD, [facility] CPT-4: 17036 11/03/2016 ([id number]) 53826 EST. PATIENT, LEVEL III Diagnosis: Essential (primary) hypertension[ICD10: I10] Ana Paris MD, [facility] CPT-4: 39874 10/06/2016 ([id number]) 18119 EST. PATIENT, LEVEL III Diagnosis: Essential (primary) hypertension[ICD10: I10] Ana Paris MD, [facility] CPT-4: 72915 09/06/2016 ([id number]) 62875 EST. PATIENT, LEVEL III Diagnosis: Essential (primary) hypertension[ICD10: I10] [facility] CPT-4: 49376 08/23/2016 ([id number]) OFFICE VISIT, NEW - LEVEL 4 Diagnosis: Noninfective gastroenteritis and colitis, unspecified[ICD10: K52.9] Diagnosis: 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 deficiency[ICD10: D51.0] Diagnosis: Iron deficiency anemia, unspecified[ICD10: D50.9] Diagnosis: Chalazion left upper eyelid[ICD10: H00.14] Diagnosis: Elevated blood-pressure reading, without diagnosis of hypertension[ICD10: R03.0] [facility] CPT-4: 92492 04/26/2016 Plan of Care Planned Activity Notes [...] over-medication. 11/19/2018 [phone] ([facility] min) Moderate 11/19/2018 Patient Education: Patient [...] his amlodipine 08/15/2018 [facility]ment[phone] (15 min) Moderate 08/15/2018 Patient Education: Patient [...] treatment plan. 05/23/2018 [phone] ([facility] min) Moderate 05/23/2018 Patient Education: [...] management. 05/03/2018 [phone] (15 min) Moderate 05/03/2018 Patient Education: Patient [...] over-medication. 01/30/2018 [phone] (15 min) Moderate 01/30/2018 Patient Education: Patient [...] concerns. 12/18/2017 App[facility]ment[phone] [facility] - Annual Wellness Visit 12/18/2017 Patient [...] labs 11/28/2017 Appointment: [phone] (30 min) Complex 11/28/2017 Patient Education: [...] this regimen. 10/10/2017 Appointment: Teresa Bardales WPtel: [facility]5 [facility] (30 min) Complex 10/10/2017 Patient [...] of over-medication. 09/26/2017 Appointment: Teresa Bardales WPtel: [facility]5 [facility] [place] (30 min) Complex 09/26/2017 Patient Education: Patient Medication Summary Completed 09/26/2017 Appointment: Teresa Bardales WPtel: [facility]9 [phone] (30 min) Complex 09/19/2017 Referral: External, Ordering Provider Referral Appointment Confirmed 08/17/2017 Visit Plan: Dysphagia - worsening since yesterday - will refer to Dr. Harper for possible EGD - pt is to notify clinic if symptoms do not improve, if they worsen, or with any acute changes, questions, or concerns. 08/16/2017 Appointment: Teresa Bardales WPtel: [phone] [phone] (30 min) Complex 08/16/2017 Patient Education: Patient Medication Summary Completed 08/16/2017 Care Plan: Referral Order SNOMED-CT : [id number] Pending 08/16/2017 Appointment: Injection 08/10/2017 Patient Education: [...] today first 07/18/2017 Appointment: Ana Pedraza WPtel: [phone] [phone] (30 min) Complex 07/18/2017 Patient Education: Patient [...] of over-medication. 05/16/2017 Appointment: Ana Pedraza WPtel: [phone] [phone] (30 min) Complex 05/16/2017 Patient Education: Patient [...] of over-medication. 03/14/2017 Appointment: Ana Pedraza WPtel: [facility] (30 min) Complex 03/14/2017 Patient Education: [...] of over-medication. 01/12/2017 Appointment: Ana Pedraza WPtel: [phone] [phone] (30 min) Complex 01/12/2017 Patient Education: Patient [...] care surrogate. 12/12/2016 Appointment: Ana Pedraza WPtel: [facility] [address] [facility] - Annual Wellness Visit 12/12/2016 Patient [...] of over-medication. 12/08/2016 Appointment: Ana Pedraza WPtel: [facility] [place] [phone] (30 min) Complex 12/08/2016 Patient Education: Patient [...] acute concerns. 11/03/2016 Appointment: Ana Pedraza WPtel: [phone] (30 min) Complex 11/03/2016 Patient Education: [...] concerns. 10/06/2016 Appointment: [phone] [phone] (30 min) Complex 10/06/2016 Patient Education: [...] concerns. 09/06/2016 Appointment: [phone] [phone] (30 min) Complex 09/06/2016 Patient Education: [...] concerns. 08/23/2016 Appointment: [phone] [phone] (15 min) Moderate 08/23/2016 Patient Education: Patient [...] for gentamycin. 04/26/2016 Appointment: [phone] [facility] 04/26/2016 Patient Education: Patient Medication Summary Completed 04/26/2016 Referral: External, Ordering Provider Referral Initiated Instructions Comment . Hypertension - well controlled - continue [...] directed, and understands the consequences of over-medication. increase hydrochlorothiazide to 25mg daily - keep [...] if symptoms not improved on this regimen. . Dysphagia - worsening since yesterday - will refer to Dr. Harper for possible EGD - pt is to notify clinic if symptoms do not improve, if they worsen, or with any acute changes, questions, or concerns. . Hypertension - well controlled - [...] to consider decreasing or stopping his amlodipine . Dysphagia - discussed with Dr. Paris - will start pt on carafate and PPI - pt is to follow up with Dr. Parish on 05/23/18 at 1:30PM - pt is to update clinic with any changes in the current treatment plan. if your blood pressure is at or [...] improved - continue with current management. . Sebaceous cyst -left lower back -rx for antibiotic provided for acute infection and instructed on use -return to clinic if not improving or if any worse- refer to Dr Parish for surgical removal of cyst- patient verbalized understanding of plan. . Hypertension - uncontrolled - the patient's [...] consequences of over-medication. Iron def-check labs . Medicare Exam - today we discussed [...] pt is to call for acute concerns. increase lisinopril to 20mg twice daily . [...] pt is to call for acute concerns. PREVNAR 13 RECOMMEND SHINGLES VACCINE FASTING LABS [...] her DOP[employer] paperwork for health care surrogate. . 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 Chronic abdominal pain, diarrhea - treatment successfully with morphine daily - continue with current management. Eyelid infection - rx for gentamycin. SCHEDULE SWALLOW STUDY CHECK LABS THEN SCHEDULE [...] due to have it-check labs today first Kenalog 60 mg IM Rocephin 500mg B12 [...] and understands the consequences of over-medication. . Vitamin B12 deficiency due to bowel [...]
--- OUTSIDE RECORDS SUMMARY | 2019-02-13 09:15 | XMS REPORT | CCD ---
Author Author Andree Paris Organization Andree Paris MD, [facility] Address [address] [place] [address] Phone Care Team Providers Care Gym Supervisor Name Role Phone PP Unavailable CCM Unavailable Summary Purpose Interface Exchange Insurance Providers Payer name Policy type / Coverage type Covered green party ID Effective Begin Date Effective End Date WPS Medicare Part B Medicare Part B [id number] Unknown Unknown FOR LIFE WPS Medicare Part B [id number] Unknown Unknown Family history Father Diagnosis Age At Onset No Known Diseases N/A Mother Diagnosis Age At Onset No Known Diseases N/A Social History Social History Element Codes Description Effective Dates Marital status Unknown 04/26/2016 Number of children Unknown 3 04/26/2016 Employment Unknown Retired 04/26/[address]: 4310574 Former smoker Quit 1968 04/26/[address]: 858888 Currently drinks alcohol 04/26/2016 Has the patient ever used illegal drugs? Unknown Has never used illegal drugs 04/26/2016 Allergies, Adverse Reactions, Alerts Substance Reaction Codes Entered Date Inactivated Date Status ibuprofen rash RxNorm: 5640 04/26/2016 No Inactive Date Active Past Medical History Illness Codes Condition Status Onset Date Resolved Date 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-9: 281.0 ICD-10: D51.0 Active 07/26/2016 Unknown Essential (primary) hypertension ICD-9: 401.1 ICD-10: I10 Active 09/05/2016 Unknown Chronic pain syndrome ICD- 9: 338.4 ICD-10: G89.4 Active 12/08/2016 Unknown Encounter for general adult medical examination with abnormal findings ICD-9: V70.0 ICD-10: Z00.01 Active 12/12/2016 Unknown Iron deficiency anemia, unspecified ICD-9: 280.9 ICD-10: D50.9 Active 04/25/2016 Unknown Slow transit constipation ICD-9: 564.01 ICD-10: K59.01 Active 10/10/2017 Unknown Dysphagia, pharyngoesophageal phase ICD-9: 787.24 ICD-10: R13.14 Active 07/18/2017 Unknown Acute bronchitis, unspecified ICD-9: 466.0 ICD-10: J20.9 Active 01/12/2017 Unknown Cough ICD-9: 786.2 ICD-10: R05 Active 01/12/2017 Unknown Encounter for immunization ICD-9: V03.89 ICD-10: Z23 Active 12/12/2016 Unknown Chalazion left upper eyelid ICD-9: 373.2 ICD-10: H00.14 Active 04/25/2016 Unknown Elevated blood-pressure reading, without diagnosis of hypertension ICD-9: 796.2 ICD-10: R03.0 Active 04/25/2016 Unknown Noninfective gastroenteritis and colitis, unspecified ICD-9: 787.91 ICD-10: K52.9 Active 04/25/2016 Unknown Problems Condition Codes Effective Dates Condition Status 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-9: 281.0 ICD-10: D51.0 07/26/2016 Active Essential (primary) hypertension ICD-9: 401.1 ICD-10: I10 09/05/2016 Active Chronic pain syndrome ICD- 9: 338.4 ICD-10: G89.4 12/08/2016 Active Encounter for general adult medical examination with abnormal findings ICD-9: V70.0 ICD-10: Z00.01 12/12/2016 Active Iron deficiency anemia, unspecified ICD-9: 280.9 ICD-10: D50.9 04/25/2016 Active Slow transit constipation ICD-9: 564.01 ICD-10: K59.01 10/10/2017 Active Dysphagia, pharyngoesophageal phase ICD-9: 787.24 ICD-10: R13.14 07/18/2017 Active Acute bronchitis, unspecified ICD-9: 466.0 ICD-10: J20.9 01/12/2017 Active Cough ICD-9: 786.2 ICD-10: R05 01/12/2017 Active Encounter for immunization ICD-9: V03.89 ICD-10: Z23 12/12/2016 Active Chalazion left upper eyelid ICD-9: 373.2 ICD-10: H00.14 04/25/2016 Active Elevated blood-pressure reading, without diagnosis of hypertension ICD-9: 796.2 ICD-10: R03.0 04/25/2016 Active Noninfective gastroenteritis and colitis, unspecified ICD-9: 787.91 ICD-10: K52.9 04/25/2016 Active Medications Medication Codes Instructions Start Date Stop Date Status Fill Instructions morphine ER 30 mg tablet,extended release RxNorm: 094546 1 Tablet(s) PO daily 04/04/2018 05/03/2018 Active cyanocobalamin (vit B-12) 1,000 mcg/mL injection solution RxNorm: 939243 1 Milliliter(s) Inj 03/05/2018 03/05/2018 Inactive morphine ER 30 mg tablet,extended release RxNorm: 369280 1 Tablet(s) PO daily 03/05/2018 04/03/2018 Inactive cyanocobalamin (vit B-12) 1,000 mcg/mL injection solution RxNorm: 448646 1 Milliliter(s) Inj 01/30/2018 01/30/2018 Inactive cyanocobalamin (vit B-12) 1,000 mcg/mL injection solution RxNorm: 275503 1 Milliliter(s) Inj 01/01/2018 01/01/2018 Inactive morphine ER 30 mg tablet,extended release RxNorm: 566887 1 Tablet(s) PO daily 01/01/2018 01/30/2018 Inactive amlodipine 5 mg tablet RxNorm: 116817 1 Tablet(s) PO QPM 12/18/2017 06/15/2018 Active lisinopril 20 mg tablet RxNorm: 659782 1 Tablet(s) PO BID 12/18/2017 12/12/2018 Active cyanocobalamin (vit B-12) 1,000 mcg/mL injection solution RxNorm: 598181 1 Milliliter(s) Inj 11/28/2017 11/28/2017 Inactive morphine ER 30 mg tablet,extended release RxNorm: 898201 1 Tablet(s) PO daily 11/28/2017 12/27/2017 Inactive morphine ER 30 mg tablet,extended release RxNorm: 956905 1 Tablet(s) PO daily 11/09/2017 11/27/2017 Inactive cyanocobalamin (vit B-12) 1,000 mcg/mL injection solution RxNorm: 338680 1 Milliliter(s) Inj 10/24/2017 10/24/2017 Inactive morphine ER 30 mg tablet,extended release RxNorm: 329503 1 Tablet(s) PO daily 10/10/2017 11/08/2017 Inactive hydrochlorothiazide 25 mg tablet RxNorm: 713993 1 Tablet(s) PO daily 10/10/2017 11/08/2017 Inactive cyanocobalamin (vit B-12) 1,000 mcg/mL injection solution RxNorm: 774223 1 Milliliter(s) Inj 09/26/2017 09/26/2017 Inactive hydrochlorothiazide 12.5 mg tablet RxNorm: 343594 1 Tablet(s) PO daily 09/26/2017 10/25/2017 Inactive morphine ER 30 mg tablet,extended release RxNorm: 828403 1 Tablet(s) PO daily 09/12/2017 10/09/2017 Inactive cyanocobalamin (vit B-12) 1,000 mcg/mL injection solution RxNorm: 039791 1 Milliliter(s) Inj 08/10/2017 08/10/2017 Inactive morphine ER 30 mg tablet,extended release RxNorm: 536698 1 Tablet(s) PO daily 08/10/2017 09/08/2017 Inactive Vitamin B-12 1,000 mcg/mL injection solution RxNorm: 249964 1 Milliliter(s) Inj month 07/21/2017 No Stop Date Active B12 INJECTIONS MONTHLY cyanocobalamin (vit B-12) 1,000 mcg/mL injection solution RxNorm: 178989 1 Milliliter(s) Inj 07/18/2017 07/18/2017 Inactive morphine ER 30 mg tablet,extended release RxNorm: 311911 1 Tablet(s) PO daily 07/13/2017 08/09/2017 Inactive morphine ER 30 mg tablet,extended release RxNorm: 414996 1 Tablet(s) PO daily 06/15/2017 07/12/2017 Inactive cyanocobalamin (vit B-12) 1,000 mcg/mL injection solution RxNorm: 561468 1 Milliliter(s) Inj 05/16/2017 05/16/2017 Inactive morphine ER 30 mg tablet,extended release RxNorm: 175324 1 Tablet(s) PO daily 04/13/2017 05/12/2017 Inactive cyanocobalamin (vit B-12) 1,000 mcg/mL injection solution RxNorm: 182986 1 Milliliter(s) Inj 03/14/2017 03/14/2017 Inactive morphine ER 30 mg tablet,extended release RxNorm: 375122 1 Tablet(s) PO daily 03/14/2017 04/12/2017 Inactive morphine ER 30 mg tablet,extended release RxNorm: 804152 1 Tablet(s) PO daily 02/13/2017 03/13/2017 Inactive Kenalog 40 mg/mL suspension for injection RxNorm: 3709038 1 Milliliter(s) Inj 01/12/2017 01/12/2017 Inactive cyanocobalamin (vit B-12) 1,000 mcg/mL injection solution RxNorm: 575550 1 Milliliter(s) Inj 01/12/2017 01/12/2017 Inactive Zithromax Z-[place] 250 mg tablet RxNorm: 880731 1 Tablet(s) PO UD 01/12/2017 01/16/2017 Inactive ceftriaxone 500 mg solution for injection RxNorm: 3821520 1 Milliliter(s) Inj 01/12/2017 01/12/2017 Inactive Vitamin B-12 1,000 mcg/mL injection solution RxNorm: 086884 1 Milliliter(s) Inj EVERY OTHER MONTH 01/04/2017 07/20/2017 Inactive lisinopril 20 mg tablet RxNorm: 654566 1 Tablet(s) PO BID 01/02/2017 12/17/2017 Inactive lisinopril 20 mg tablet RxNorm: 421058 1 Tablet(s) PO BID 12/12/2016 01/01/2017 Inactive morphine ER 30 mg tablet,extended release RxNorm: 536535 1 Tablet(s) PO daily 12/08/2016 01/06/2017 Inactive lisinopril 20 mg tablet RxNorm: 145035 1 Tablet(s) PO BID 11/03/2016 12/11/2016 Inactive morphine ER 30 mg tablet,extended release RxNorm: 580296 1 Tablet(s) PO daily 11/03/2016 12/02/2016 Inactive cyanocobalamin (vit B-12) 1,000 mcg/mL injection solution RxNorm: 604713 1 Milliliter(s) Inj 10/27/2016 10/27/2016 Inactive lisinopril 10 mg tablet RxNorm: 385540 1 Tablet(s) PO BID 10/06/2016 11/02/2016 Inactive lisinopril 10 mg tablet RxNorm: 272127 1 Tablet(s) PO daily 09/06/2016 10/05/2016 Inactive morphine ER 30 mg tablet,extended release RxNorm: 063903 1 Tablet(s) PO daily 08/18/2016 09/16/2016 Inactive cyanocobalamin (vit B-12) 1,000 mcg/mL injection solution RxNorm: 094468 Milliliter(s) Inj 07/27/2016 07/27/2016 Inactive morphine ER 30 mg tablet,extended release RxNorm: 496001 1 Tablet(s) PO daily 07/21/2016 08/17/2016 Inactive morphine ER 30 mg tablet,extended release RxNorm: 828670 1 Tablet(s) PO daily 06/20/2016 07/19/2016 Inactive morphine ER 30 mg tablet,extended release RxNorm: 287736 1 Tablet(s) PO daily 05/20/2016 06/19/2016 Inactive cyanocobalamin (vit B-12) 1,000 mcg/mL injection solution RxNorm: 052039 1 Milliliter(s) Inj 04/26/2016 04/26/2016 Inactive gentamicin 0.3 % eye drops RxNorm: 636145 2 Drop(s) OPH Q4H 04/26/2016 05/02/2016 Inactive Venofer intravenous RxNorm: 30201 intravenous No Start Date Active Vitamin B-12 1,000 mcg/mL injection solution RxNorm: 889243 1 Milliliter(s) Inj EVERY 3 MONTHS No Start Date 01/03/2017 Inactive Claritin 10 mg tablet RxNorm: 883495 1 Tablet(s) PO daily No Start Date 07/17/2017 Inactive morphine ER 30 mg tablet,extended release RxNorm: 226057 1 Tablet(s) PO daily No Start Date 04/25/2016 Inactive Medication Administered Medication Codes Instructions Start Date Status cyanocobalamin (vit B-12) 1,000 mcg/mL injection solution RxNorm: 852761 1Milliliter 03/05/2018 No longer Active cyanocobalamin (vit B-12) 1,000 mcg/mL injection solution RxNorm: 596184 1Milliliter 01/30/2018 No longer Active cyanocobalamin (vit B-12) 1,000 mcg/mL injection solution RxNorm: 072279 1Milliliter 01/01/2018 No longer Active cyanocobalamin (vit B-12) 1,000 mcg/mL injection solution RxNorm: 115039 1Milliliter 11/28/2017 No longer Active cyanocobalamin (vit B-12) 1,000 mcg/mL injection solution RxNorm: 071208 1Milliliter 10/24/2017 No longer Active cyanocobalamin (vit B-12) 1,000 mcg/mL injection solution RxNorm: 094182 1Milliliter 09/26/2017 No longer Active cyanocobalamin (vit B-12) 1,000 mcg/mL injection solution RxNorm: 062872 1Milliliter 08/10/2017 No longer Active cyanocobalamin (vit B-12) 1,000 mcg/mL injection solution RxNorm: 727185 1Milliliter 07/18/2017 No longer Active cyanocobalamin (vit B-12) 1,000 mcg/mL injection solution RxNorm: 458399 1Milliliter 05/16/2017 No longer Active cyanocobalamin (vit B-12) 1,000 mcg/mL injection solution RxNorm: 621600 1Milliliter 03/14/2017 No longer Active Kenalog 40 mg/mL suspension for injection RxNorm: 2366120 illiliter 01/12/2017 No longer Active cyanocobalamin (vit B-12) 1,000 mcg/mL injection solution RxNorm: 298558 1Milliliter 01/12/2017 No longer Active ceftriaxone 500 mg solution for injection RxNorm: 1972440 1Milliliter 01/12/2017 No longer Active cyanocobalamin (vit B-12) 1,000 mcg/mL injection solution RxNorm: 485203 1Milliliter 10/27/2016 No longer Active cyanocobalamin (vit B-12) 1,000 mcg/mL injection solution RxNorm: 049454 Milliliter 07/27/2016 No longer Active cyanocobalamin (vit B-12) 1,000 mcg/mL injection solution RxNorm: 562539 1Milliliter 04/26/2016 No longer Active Immunizations Vaccine Codes Date Status Pneumococcal (Adult) CVX: 133 12/12/2016 completed Assessments Condition Codes Effective Dates 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-10: D51.0 ICD-9: 281.0 03/05/2018 Essential (primary) hypertension ICD-10: I10 ICD-9: 401.1 01/31/2018 Chronic pain syndrome ICD-10: G89.4 ICD-9: 338.4 01/30/2018 Encounter for general adult medical examination with abnormal findings ICD-10: Z00.01 ICD-9: V70.0 12/18/2017 Iron deficiency anemia, unspecified ICD-10: D50.9 ICD-9: 280.9 11/28/2017 Slow transit constipation ICD-10: K59.01 ICD-9: 564.01 10/10/2017 Dysphagia, pharyngoesophageal phase ICD-10: R13.14 ICD-9: 787.24 08/16/2017 Acute bronchitis, unspecified ICD-10: J20.9 ICD-9: 466.0 01/12/2017 Cough ICD-10: R05 ICD-9: 786.2 01/12/2017 Encounter for immunization ICD-10: Z23 ICD-9: V03.89 12/12/2016 Noninfective gastroenteritis and colitis, unspecified ICD-10: K52.9 ICD-9: 787.91 04/26/2016 Elevated blood-pressure reading, without diagnosis of hypertension ICD-10: R03.0 ICD-9: 796.2 04/26/2016 Chalazion left upper eyelid ICD-10: H00.14 ICD-9: 373.2 04/26/2016 Reason For Visit Reason For Visit Effective Dates Notes hypertension 01/30/2018 Annual Medicare Wellness Exam 12/18/2017 [...] Observation Code Item Item Code Result Date [facility] Ord40 Iron 127 ug/dl 11/28/2017 Tibc Ord40 [...] 50.2 % 11/28/2017 Cbc With Differential Ord2 Lymph% 33.1 % 11/28/2017 Cbc With Differential Ord2 MCV 98.4 fl 11/28/2017 Cbc With Differential Ord2 MCH 32.9 pg 11/28/2017 Cbc With Differential Ord2 Alfalfa% 12.6 % 11/28/2017 Cbc With Differential Ord2 MCHC 33.4 pg 11/28/2017 Cbc With Differential Ord2 Eos% 3.6 % 11/28/2017 Cbc With Differential Ord2 Baso% 0.5 % 11/28/2017 Cbc With Differential Ord2 PLT 312 K/ul 11/28/2017 Cbc With Differential Ord2 RDW 15.1 % 11/28/2017 Cbc With Differential Ord2 Neut ABS# 4.36 K/ul 11/28/2017 Cbc With Differential Ord2 Lymph ABS# 2.87 K/ul 11/28/2017 Cbc With Differential Ord2 Alfalfa ABS# 1.1 K/ul 11/28/2017 Cbc With Differential Ord2 Eos ABS# 0.3 K/ul 11/28/2017 Cbc With Differential Ord2 Baso ABS# 0.0 K/ul 11/28/2017 B12 Zvw777 B12 >1500.00 pg/ml 11/28/2017 Comp Metabolic Fxr833 NA 139 mEq/L 11/28/2017 Comp Metabolic Qhw555 K 5.2 mEq/L 11/28/2017 Comp Metabolic Ris559 CL 106 mEq/L 11/28/2017 Comp Metabolic Geq729 CO2 28.0 mEq/L 11/28/2017 Comp Metabolic Gzf275 ANION GAP 10 11/28/2017 Comp Metabolic Ynb346 GLUCOSE 89 mg/dL 11/28/2017 Comp Metabolic Qjm766 Creat 1.1 mg/dL 11/28/2017 Comp Metabolic Iri680 eGFR 66 ml/min/1.73m2 11/28/2017 Comp Metabolic Tip962 BUN 18 mg/dL 11/28/2017 Comp Metabolic Ihb212 B/C Ratio 16.1 Ratio 11/28/2017 Comp Metabolic Nrf016 CALCIUM 9.2 mg/dL 11/28/2017 Comp Metabolic Ukj847 ALK PHOS 89 U/L 11/28/2017 Comp Metabolic Lsq397 AST(SGOT) 22 U/L 11/28/2017 Comp Metabolic Htv166 ALT(SGPT) 15 U/L 11/28/2017 Comp Metabolic Xeq478 BILI T 0.6 mg/dL 11/28/2017 Comp Metabolic Jou345 ALBUMIN 3.9 g/dL 11/28/2017 Comp Metabolic Ian243 TPRO 6.5 g/dL 11/28/2017 Comp Metabolic Rnu877 GLOB 2.6 g/dL 11/28/2017 Comp Metabolic Xtg988 A/G Ratio 1.5 Ratio 11/28/2017 Comp Metabolic Phu815 Osmo 279 mOsmo 11/28/2017 Ferritin Ord22 FERRITIN 218.2 ng/mL 11/28/2017 Ferritin Ord22 FERRITIN 211.2 ng/mL 07/18/2017 Cbc With Differential Ord2 WBC 8.61 K/ul 07/18/2017 Cbc With Differential Ord2 RBC 4.48 M/ul 07/18/2017 Cbc With Differential Ord2 HGB 15.1 g/dl 07/18/2017 Cbc With Differential Ord2 Neut% 51.5 % 07/18/2017 Cbc With Differential Ord2 HCT 45.1 % 07/18/2017 Cbc With Differential Ord2 Lymph% 33.7 % 07/18/2017 Cbc With Differential Ord2 MCV 100.7 fl 07/18/2017 Cbc With Differential Ord2 Alfalfa% 12.3 % 07/18/2017 Cbc With Differential Ord2 MCH 33.7 pg 07/18/2017 Cbc With Differential Ord2 Eos% 2.0 % 07/18/2017 Cbc With Differential Ord2 MCHC 33.5 pg 07/18/2017 Cbc With Differential Ord2 Baso% 0.5 % 07/18/2017 Cbc With Differential Ord2 PLT 305 K/ul 07/18/2017 Cbc With Differential Ord2 RDW 13.9 % 07/18/2017 Cbc With Differential Ord2 Neut ABS# 4.44 K/ul 07/18/2017 Cbc With Differential Ord2 Lymph ABS# 2.90 K/ul 07/18/2017 Cbc With Differential Ord2 Alfalfa ABS# 1.1 K/ul 07/18/2017 Cbc With Differential Ord2 Eos ABS# 0.2 K/ul 07/18/2017 Cbc With Differential Ord2 Baso ABS# 0.0 K/ul 07/18/2017 Comp Metabolic Ctb792 NA 140 mEq/L 07/18/2017 Comp Metabolic Phc929 K 4.6 mEq/L 07/18/2017 Comp Metabolic Hdn939 CL 105 mEq/L 07/18/2017 Comp Metabolic Srs559 CO2 29.0 mEq/L 07/18/2017 Comp Metabolic Woi517 ANION GAP 11 07/18/2017 Comp Metabolic May438 GLUCOSE 96 mg/dL 07/18/2017 Comp Metabolic Nit831 Creat 1.0 mg/dL 07/18/2017 Comp Metabolic Jka529 eGFR 73 ml/min/1.73m2 07/18/2017 Comp Metabolic Jvf365 BUN 12 mg/dL 07/18/2017 Comp Metabolic Szq884 B/C Ratio 11.7 Ratio 07/18/2017 Comp Metabolic Qau414 CALCIUM 9.2 mg/dL 07/18/2017 Comp Metabolic Whn127 ALK PHOS 74 U/L 07/18/2017 Comp Metabolic Rsw223 AST(SGOT) 29 U/L 07/18/2017 Comp Metabolic Mep137 ALT(SGPT) 16 U/L 07/18/2017 Comp Metabolic Gau461 BILI T 0.7 mg/dL 07/18/2017 Comp Metabolic Kdu479 ALBUMIN 3.7 g/dL 07/18/2017 Comp Metabolic Zey129 TPRO 6.5 g/dL 07/18/2017 Comp Metabolic Rez920 GLOB 2.8 g/dL 07/18/2017 Comp Metabolic Mth498 A/G Ratio 1.3 Ratio 07/18/2017 Comp Metabolic Hzj071 Osmo 279 mOsmo 07/18/2017 Iron Ord72 Iron 114 ug/dl 07/18/2017 B12 Wcu375 B12 233.00 pg/ml 07/18/2017 Tsh Ord6 hTSH [...] 33.3 pg 12/13/2016 Cbc With Differential Ord2 Alfalfa% 17.9 % 12/13/2016 Cbc With Differential Ord2 [...] 2.71 K/ul 12/13/2016 Cbc With Differential Ord2 Alfalfa ABS# 1.7 K/ul 12/13/2016 Cbc With Differential Ord2 Eos ABS# 0.3 K/ul 12/13/2016 Cbc With Differential Ord2 Baso ABS# 0.0 K/ul 12/13/2016 Comp Metabolic Mfe288 NA 136 mEq/L 12/13/2016 Comp Metabolic Ubj628 K 4.7 mEq/L 12/13/2016 Comp Metabolic Quv141 CL 102 mEq/L 12/13/2016 Comp Metabolic Xfm058 CO2 26.0 mEq/L 12/13/2016 Comp Metabolic Gvp220 ANION GAP 13 12/13/2016 Comp Metabolic Mfo449 GLUCOSE 87 mg/dL 12/13/2016 Comp Metabolic Ogy935 Creat 0.9 mg/dL 12/13/2016 Comp Metabolic Aju632 eGFR 83 ml/min/1.73m2 12/13/2016 Comp Metabolic Gyy733 BUN 17 mg/dL 12/13/2016 Comp Metabolic Luf435 B/C Ratio 18.3 Ratio 12/13/2016 Comp Metabolic Dxt007 CALCIUM 9.1 mg/dL 12/13/2016 Comp Metabolic Ifi483 ALK PHOS 90 U/L 12/13/2016 Comp Metabolic Yub987 AST(SGOT) 22 U/L 12/13/2016 Comp Metabolic Lis936 ALT(SGPT) 15 U/L 12/13/2016 Comp Metabolic Mqb158 BILI T 0.8 mg/dL 12/13/2016 Comp Metabolic Cdi628 ALBUMIN 3.6 g/dL 12/13/2016 Comp Metabolic Sbd358 TPRO 6.4 g/dL 12/13/2016 Comp Metabolic Ypi517 GLOB 2.9 g/dL 12/13/2016 Comp Metabolic Xoz926 A/G Ratio 1.2 Ratio 12/13/2016 Comp Metabolic Oez763 Osmo 273 mOsmo 12/13/2016 Lipid Ord30 CHOL 182 mg/dL 12/13/2016 Lipid Ord30 HDL 64.0 mg/dl 12/13/2016 Lipid Ord30 TRIG 62 mg/dL 12/13/2016 Lipid Ord30 LDL 106 mg/dL 12/13/2016 Lipid Ord30 C/HDL 2.8 Ratio 12/13/2016 Ferritin Ord22 FERRITIN 434.7 ng/mL 12/13/2016 B12 Dnz365 B12 247.00 pg/ml 12/13/2016 Tibc Ord40 Iron [...] 33.7 pg 04/27/2016 Cbc With Differential Ord2 Alfalfa% 13.7 % 04/27/2016 Cbc With Differential Ord2 [...] 3.22 K/ul 04/27/2016 Cbc With Differential Ord2 Alfalfa ABS# 1.2 K/ul 04/27/2016 Cbc With Differential Ord2 Eos ABS# 0.3 K/ul 04/27/2016 Cbc With Differential Ord2 Baso ABS# 0.0 K/ul 04/27/2016 Comp Metabolic Tzr690 NA 138 mEq/L 04/27/2016 Comp Metabolic Epx675 K 4.3 mEq/L 04/27/2016 Comp Metabolic Lbn907 CL 104 mEq/L 04/27/2016 Comp Metabolic Uab110 CO2 30.0 mEq/L 04/27/2016 Comp Metabolic Kkd920 ANION GAP 8 04/27/2016 Comp Metabolic Hzq629 GLUCOSE 87 mg/dL 04/27/2016 Comp Metabolic Nds557 Creat 0.9 mg/dL 04/27/2016 Comp Metabolic Zwi469 eGFR 82 ml/min/1.73m2 04/27/2016 Comp Metabolic Abb640 BUN 13 mg/dL 04/27/2016 Comp Metabolic Vao890 B/C Ratio 13.8 Ratio 04/27/2016 Comp Metabolic Pup740 CALCIUM 9.0 mg/dL 04/27/2016 Comp Metabolic Iqv738 ALK PHOS 62 U/L 04/27/2016 Comp Metabolic Syj658 AST(SGOT) 24 U/L 04/27/2016 Comp Metabolic Ldi857 ALT(SGPT) 15 U/L 04/27/2016 Comp Metabolic Rve306 BILI T 0.7 mg/dL 04/27/2016 Comp Metabolic Puy940 ALBUMIN 3.6 g/dL 04/27/2016 Comp Metabolic Bdl014 TPRO 6.1 g/dL 04/27/2016 Comp Metabolic Eqp714 GLOB 2.5 g/dL 04/27/2016 Comp Metabolic Riq711 A/G Ratio 1.4 Ratio 04/27/2016 Comp Metabolic Qwq258 Osmo 275 mOsmo 04/27/2016 B12 Ehg070 B12 >1500.00 pg/ml 04/27/2016 Iron Ord72 Iron 104 ug/dl 04/27/2016 Lipid Ord30 CHOL 178 mg/dL 04/27/2016 Lipid Ord30 HDL 70.0 mg/dl 04/27/2016 Lipid Ord30 TRIG 57 mg/dL 04/27/2016 Lipid Ord30 LDL 97 mg/dL 04/27/2016 Lipid Ord30 C/HDL 2.5 Ratio 04/27/2016 Tsh Ord6 hTSH II 1.89 uIU/mL 04/27/2016 Review of Systems System Result Effective Dates Constitutional No recent illness 01/30/2018 Constitutional No [...] General 1994 Eyes conjunctiva/eyelids Overall: conjunctiva clear 10/10/2017 None Full Exam - General 1995 Eyes conjunctiva/eyelids Overall: cornea clear 10/10/2017 None Full Exam - General 1995 Eyes conjunctiva/eyelids Overall: eyelids normal 10/10/2017 None Full Exam - General 1995 Eyes pupils and irises Overall: pupils equal, [...] benign 10/06/2016 None Full Exam - General 1995 Ears/Nose/Throat oral cavity/pharynx/larynx Overall: no masses 10/06/2016 [...] Procedure Codes Date THER/PROPH/DIAG INJ SC/IM CPT-4: 31925 03/05/2018 VITAMIN B12 INJECTION CPT- 4: J3420 03/05/2018 VITAMIN B12 INJECTION CPT- 4: J3420 01/30/2018 THER/PROPH/DIAG INJ SC/IM CPT-4: 74846 01/30/2018 THER/PROPH/DIAG INJ SC/IM CPT-4: 50379 01/01/2018 VITAMIN B12 INJECTION CPT- 4: J3420 01/01/2018 PPPS, SUBSEQ VISIT CPT- 4: G0439 12/18/2017 THER/PROPH/DIAG INJ SC/IM CPT-4: 49937 11/28/2017 VITAMIN B12 INJECTION CPT- 4: J3420 11/28/2017 THER/PROPH/DIAG INJ SC/IM CPT-4: 89734 10/24/2017 VITAMIN B12 INJECTION CPT- 4: J3420 10/24/2017 THER/PROPH/DIAG INJ SC/IM CPT-4: 98854 09/26/2017 VITAMIN B12 INJECTION CPT- 4: J3420 09/26/2017 THER/PROPH/DIAG INJ SC/IM CPT-4: 23023 08/10/2017 VITAMIN B12 INJECTION CPT- 4: J3420 08/10/2017 THER/PROPH/DIAG INJ SC/IM CPT-4: 46838 07/18/2017 VITAMIN B12 INJECTION CPT- 4: J3420 07/18/2017 THER/PROPH/DIAG INJ SC/IM CPT-4: 21639 05/16/2017 VITAMIN B12 INJECTION CPT- 4: J3420 05/16/2017 THER/PROPH/DIAG INJ SC/IM CPT-4: 40728 03/14/2017 VITAMIN B12 INJECTION CPT- 4: J3420 03/14/2017 TRIAMCINOLONE ACET INJ NOS CPT-4: J3301 01/12/2017 ROCEPHIN, PER 250 MG CPT- 4: J0696 01/12/2017 VITAMIN B12 INJECTION CPT- 4: J3420 01/12/2017 THER/PROPH/DIAG INJ SC/IM CPT-4: 25060 01/12/2017 PPPS, SUBSEQ VISIT CPT- 4: G0439 12/12/2016 PNEUMOCOCCAL VACC [address]: 72664131 CPT-4: 62595 12/12/2016 ADMIN PNEUMOCOCCAL VACCINE SNOMED CT: 59195898 CPT-4: G0009 12/12/2016 THER/PROPH/DIAG INJ SC/IM CPT-4: 87725 10/27/2016 VITAMIN B12 INJECTION CPT- 4: J3420 10/27/2016 THER/PROPH/DIAG INJ SC/IM CPT-4: 54232 07/27/2016 VITAMIN B12 INJECTION CPT- 4: J3420 07/27/2016 THER/PROPH/DIAG INJ SC/IM CPT-4: 18340 04/26/2016 VITAMIN B12 INJECTION CPT- 4: J3420 04/26/2016 Vital Signs Date Vital 01/31/2018 Blood Pressure 1: 137/77 Code: 8480-6 Blood Pressure 2: 138/68 Code: 8480-6 Heart Rate 1: 67 bpm SpO2: 98% 01/30/2018 Blood Pressure 1: 138/66 Code: 8480-6 BMI: 25.1 Code: 96682-6 Heart Rate 1: 76 bpm Height: 5'7" SpO2: 94% Weight: 160 lbs 12/18/2017 Blood Pressure 1: 152/88 Code: 8480-6 BMI: 25.8 Code: 05110-2 Heart Rate 1: 68 bpm Height: 5'7" SpO2: 96% Weight: 165 lbs 11/28/2017 Blood Pressure 1: 150/76 Code: 8480-6 BMI: 25.2 Code: 82150-4 Heart Rate 1: 78 bpm Height: 5'7" SpO2: 98% Weight: 161 lbs 10/10/2017 Blood Pressure 1: 156/76 Code: 8480-6 BMI: 24.7 Code: 99235-8 Heart Rate 1: 71 bpm Height: 5'7" SpO2: 98% Weight: 158 lbs 09/26/2017 Blood Pressure 1: 162/82 Code: 8480-6 BMI: 24.7 Code: 40202-4 Heart Rate 1: 69 bpm Height: 5'7" SpO2: 99% Weight: 158 lbs 08/16/2017 Blood Pressure 1: 154/82 Code: 8480-6 BMI: 24.1 Code: 94824-8 Heart Rate 1: 58 bpm Height: 5'7" SpO2: 96% Weight: 154 lbs 07/18/2017 Blood Pressure 1: 152/88 Code: 8480-6 BMI: 25.2 Code: 97276-1 Heart Rate 1: 72 bpm Height: 5'7" SpO2: 98% Weight: 161 lbs 05/16/2017 Blood Pressure 1: 136/78 Code: 8480-6 BMI: 24.8 Code: 69972-9 Heart Rate 1: 71 bpm Height: 5'7" SpO2: 96% Weight: 158 lbs 8 oz 03/14/2017 Blood Pressure 1: 142/74 Code: 8480-6 BMI: 23.8 Code: 57260-6 Heart Rate 1: 69 bpm Height: 5'7" SpO2: 94% Weight: 152 lbs 01/12/2017 Blood Pressure 1: 156/90 Code: 8480-6 BMI: 23.4 Code: 92277-1 Heart Rate 1: 90 bpm Height: 5'7" SpO2: 97% Temperature: 37.4 (C) / 99.3 (F) Weight: 149 lbs 8 oz 12/12/2016 Blood Pressure 1: 140/78 Code: 8480-6 BMI: 24.3 Code: 34487-1 Heart Rate 1: 73 bpm Height: 5'7" SpO2: 96% Waist Measure (cm): 90 cm Weight: 155 lbs 12/08/2016 Blood Pressure 1: 148/84 Code: 8480-6 BMI: 24.3 Code: 73881-5 Heart Rate 1: 80 bpm Height: 5'7" SpO2: 96% Weight: 155 lbs 11/03/2016 Blood Pressure 1: 156/84 Code: 8480-6 Blood Pressure 2: 155/94 Code: 8480-6 BMI: 24.3 Code: 84170-3 Heart Rate 1: 81 bpm Height: 5'7" SpO2: 98% Weight: 155 lbs 10/06/2016 Blood Pressure 1: 175/95 Code: 8480-6 Heart Rate 1: 77 bpm Respiratory Rate: 16 bpm SpO2: 98% Temperature: 36.4 (C) / 97.5 (F) Weight: 157 lbs 09/06/2016 Blood Pressure 1: 136/80 Code: 8480-6 BMI: 24.1 Code: 52102-8 Heart Rate 1: 82 bpm Height: 5'8" SpO2: 97% Weight: 156 lbs 08/23/2016 Blood Pressure 1: 160/80 Code: 8480-6 BMI: 24.4 Code: 45818-1 Heart Rate 1: 88 bpm Height: 5'8" SpO2: 95% Weight: 158 lbs 04/26/2016 Blood Pressure 1: 156/74 Code: 8480-6 BMI: 24.5 Code: 58216-8 Heart Rate 1: 70 bpm Height: 5'8" SpO2: 97% Weight: 159 lbs Functional Status No Functional Status data History of Present Illness Symptom Name Status Result Effective Date Notes hypertension Quality intermittent 01/30/2018 None hypertension Quality [...] data Encounters Encounter Performer Location Codes Date () Miscellaneous no charge Diagnosis: Essential (primary) hypertension[ICD10: I10] Teresa Paris MD, [facility] CPT-4: 42761 01/31/2018 ([id number]) 63053 EST. PATIENT, LEVEL IV Diagnosis: Essential (primary) hypertension[ICD10: I10] Diagnosis: Chronic pain syndrome[ICD10: G89.4] Andree Paris MD, [facility] CPT- 4: 46056 01/30/2018 ([id number]) 60884 EST. PATIENT, LEVEL IV Diagnosis: Essential (primary) hypertension[ICD10: I10] Diagnosis: Chronic pain syndrome[ICD10: G89.4] Diagnosis: 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 deficiency[ICD10: D51.0] Diagnosis: Iron deficiency anemia, unspecified[ICD10: D50.9] Ana Paris MD, [facility] CPT-4: 05951 11/28/2017 47319 EST. PATIENT, LEVEL IV Diagnosis: Essential (primary) hypertension[ICD10: I10] Diagnosis: Slow transit constipation[ICD10: K59.01] Diagnosis: Chronic pain syndrome[ICD10: G89.4] [facility] CPT- 4: 14091 10/10/2017 76432 EST. PATIENT, LEVEL IV Diagnosis: 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 deficiency[ICD10: D51.0] Diagnosis: Essential (primary) hypertension[ICD10: I10] Diagnosis: Chronic pain syndrome[ICD10: G89.4] Teresa Paris MD, [facility] CPT- 4: 59638 09/26/2017 45815 EST. PATIENT, LEVEL III Diagnosis: Dysphagia, pharyngoesophageal phase[ICD10: R13.14] Teresa Paris MD, [facility] CPT-4: 45315 08/16/2017 ([id number]) 32417 EST. PATIENT, LEVEL IV Diagnosis: Essential (primary) hypertension[ICD10: I10] Diagnosis: Chronic pain syndrome[ICD10: G89.4] Diagnosis: 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 deficiency[ICD10: D51.0] Diagnosis: Iron deficiency anemia, unspecified[ICD10: D50.9] Diagnosis: Dysphagia, pharyngoesophageal phase[ICD10: R13.14] Ana Paris MD, [facility] CPT-4: 91771 07/18/2017 ([id number]) 63837 EST. PATIENT, LEVEL III Diagnosis: Essential (primary) hypertension[ICD10: I10] Diagnosis: Chronic pain syndrome[ICD10: G89.4] Diagnosis: 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 deficiency[ICD10: D51.0] Ana Paris MD, [facility] CPT-4: 25670 05/16/2017 ([id number]) 06789 EST. PATIENT, LEVEL III Diagnosis: Essential (primary) hypertension[ICD10: I10] Diagnosis: Chronic pain syndrome[ICD10: G89.4] Diagnosis: 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 deficiency[ICD10: D51.0] Ana Paris MD, [facility] CPT-4: 51794 03/14/2017 ([id number]) 01392 EST. PATIENT, LEVEL III Diagnosis: Cough[ICD10: R05] Diagnosis: Acute bronchitis, unspecified[ICD10: J20.9] Diagnosis: Chronic pain syndrome[ICD10: G89.4] Diagnosis: 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 deficiency[ICD10: D51.0] Ana Paris MD, [facility] CPT-4: 23326 01/12/2017 ([id number]) 75756 EST. PATIENT, LEVEL III Diagnosis: Essential (primary) hypertension[ICD10: I10] Diagnosis: Chronic pain syndrome[ICD10: G89.4] Ana Paris MD, [facility] CPT-4: 99727 12/08/2016 ([id number]) 86216 EST. PATIENT, LEVEL III Diagnosis: Essential (primary) hypertension[ICD10: I10] Ana Paris MD [facility] CPT-4: 98451 11/03/2016 ([id number]) 43874 EST. PATIENT, LEVEL III Diagnosis: Essential (primary) hypertension[ICD10: I10] Ana Paris MD, [facility] CPT-4: 89444 10/06/2016 ([id number]) 95968 EST. PATIENT, LEVEL III Diagnosis: Essential (primary) hypertension[ICD10: I10] Ana Paris MD [facility] CPT-4: 46370 09/06/2016 ([id number]) 62238 EST. PATIENT, LEVEL III Diagnosis: Essential (primary) hypertension[ICD10: I10] Ana Paris MD, [facility] CPT-4: 59178 08/23/2016 ([id number]) OFFICE VISIT, NEW - LEVEL 4 Diagnosis: Noninfective gastroenteritis and colitis, unspecified[ICD10: K52.9] Diagnosis: 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 deficiency[ICD10: D51.0] Diagnosis: Iron deficiency anemia, unspecified[ICD10: D50.9] Diagnosis: Chalazion left upper eyelid[ICD10: H00.14] Diagnosis: Elevated blood-pressure reading, without diagnosis of hypertension[ICD10: R03.0] Andree Paris MD, [facility] CPT-4: 69308 04/26/2016 Plan of Care Planned Activity Notes Codes Status Date Appointment: Injection 03/05/2018 Patient Education: Patient Medication [...] over-medication. 01/30/2018 [phone] ([facility] min) Moderate 01/30/2018 Patient Education: [...] acute concerns. 12/18/2017 [phone] [facility] - Annual Wellness Visit 12/18/2017 Patient Education: [...] labs 11/28/2017 App[facility]ment[phone] (30 min) Complex 11/28/2017 Patient Education: Patient [...] this regimen. 10/10/2017 App[facility]ment[phone] ([facility] min) Complex 10/10/2017 Patient Education: Patient [...] the consequences of over-medication. 09/26/2017 Appointment: Teresa Bardales: [facility] (30 min) Complex 09/26/2017 Patient Education: Patient Medication Summary Completed 09/26/2017 Appointment: Teresa Bardalesl: [facility] (30 min) Complex 09/19/2017 Referral: External, Ordering Provider Referral Appointment Confirmed 08/17/2017 Visit Plan: Dysphagia - worsening since yesterday - will refer to Dr. Harper for possible EGD - pt is to notify clinic if symptoms do not improve, if they worsen, or with any acute changes, questions, or concerns. 08/16/2017 Appointment: Teresa Bardalesl: [facility] (30 min) Complex 08/16/2017 Patient Education: Patient Medication Summary Completed 08/16/2017 Care Plan: Referral Order SNOMED-CT : [id number] Pending 08/16/2017 Appointment: Injection 08/10/2017 Patient Education: [...] today first 07/18/2017 Appointment: Ana Pedraza WPtel: [phone] (30 min) Complex 07/18/2017 Patient Education: Patient [...] of over-medication. 05/16/2017 Appointment: Ana Pedraza WPtel: [phone] (30 min) Complex 05/16/2017 Patient Education: Patient [...] of over-medication. 03/14/2017 Appointment: Ana Pedraza WPtel: [phone] (30 min) Complex 03/14/2017 Patient Education: Patient [...] of over-medication. 01/12/2017 Appointment: Ana Pedraza WPtel: [address] [place] [address] (30 min) Complex 01/12/2017 Patient Education: Patient [...] care surrogate. 12/12/2016 Appointment: Ana Pedraza WPtel: [phone] [facility] - Annual Wellness Visit 12/12/2016 Patient Education: [...] the consequences of over-medication. 12/08/2016 Appointment: Ana Pedrazatel: [phone] [phone] (30 min) Complex 12/08/2016 Patient Education: Patient [...] concerns. 11/03/2016 Appointment: Ana Pedraza WPtel: [phone] [phone] (30 min) Complex 11/03/2016 Patient Education: Patient [...] concerns. 10/06/2016 Appointment: Ana Pedraza WPtel: [phone] [phone] [place] (30 min) Complex 10/06/2016 Patient Education: Patient [...] acute concerns. 09/06/2016 Appointment: Ana Pedraza WPtel: [phone] (30 min) Complex 09/06/2016 Patient Education: Patient [...] acute concerns. 08/23/2016 Appointment: Ana Pedraza WPtel: [phone] (15 min) Moderate 08/23/2016 Patient Education: Patient [...] for gentamycin. 04/26/2016 Appointment: Andree Paris WPtel: [facility] [place] [phone] New Patient 04/26/2016 Patient Education: Patient Medication [...]
[2019-02-13] MEDS ORDERED: LACTATED RINGERS 1,000 ML IV PRN (09:17)
--- OUTSIDE RECORDS SUMMARY | 2019-02-13 09:17 | XMS REPORT | CCD ---
Author Author Andree Paris Organization Andree Paris MD, [facility] Address [address] [place] [address] Phone Care Team Providers Care Instructor Ground Services Name Role Phone PP Unavailable CCM Unavailable Summary Purpose Interface Exchange Insurance Providers Payer name Policy type / Coverage type Covered republican ID Effective Begin Date Effective End Date WPS Medicare Part B Medicare Part B [id number] Unknown Unknown FOR LIFE WPS Medicare Part B [id number] Unknown Unknown Family history Father Diagnosis Age At Onset No Known Diseases N/A Mother Diagnosis Age At Onset No Known Diseases N/A Social History Social History Element Codes Description Effective Dates Marital status Unknown 04/26/2016 Number of children Unknown 3 04/26/2016 Employment Unknown Retired 04/26/[address]: 5035157 Former smoker Quit 1968 04/26/[address]: 811067 Currently drinks alcohol 04/26/2016 Has the patient ever used illegal drugs? 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 ICD-10: D51.0 Active 07/26/2016 Unknown Acute bronchitis, unspecified ICD-9: 466.0 ICD-10: J20.9 Active 01/12/2017 Unknown Cough ICD-9: 786.2 ICD-10: R05 Active 01/12/2017 Unknown Encounter for general adult medical examination with abnormal findings ICD-9: V70.0 ICD-10: Z00.01 Active 12/12/2016 Unknown Encounter for immunization ICD-9: V03.89 ICD-10: Z23 Active 12/12/2016 Unknown Iron deficiency anemia, unspecified ICD-9: 280.9 ICD-10: D50.9 Active 04/25/2016 Unknown Chalazion left upper eyelid ICD-9: 373.2 ICD-10: H00.14 Active 04/25/2016 Unknown Elevated blood-pressure reading, without diagnosis of hypertension ICD-9: 796.2 ICD-10: R03.0 Active 04/25/2016 Unknown Noninfective gastroenteritis and colitis, unspecified ICD-9: 787.91 ICD-10: K52.9 Active 04/25/2016 Unknown Problems Condition Codes Effective Dates Condition Status Chronic pain syndrome ICD- 9: 338.4 ICD-10: G89.4 12/08/2016 Active Essential (primary) hypertension ICD-9: 401.1 ICD-10: I10 09/05/2016 Active 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-9: 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.0 ICD-10: D51.0 07/26/2016 Active Acute bronchitis, unspecified ICD-9: 466.0 ICD-10: J20.9 01/12/2017 Active Cough ICD-9: 786.2 ICD-10: R05 01/12/2017 Active Encounter for general adult medical examination with abnormal findings ICD-9: V70.0 ICD-10: Z00.01 12/12/2016 Active Encounter for immunization ICD-9: V03.89 ICD-10: Z23 12/12/2016 Active Iron deficiency anemia, unspecified ICD-9: 280.9 ICD-10: D50.9 04/25/2016 Active Chalazion left upper eyelid ICD-9: 373.2 ICD-10: H00.14 04/25/2016 Active Elevated blood-pressure reading, without diagnosis of hypertension ICD-9: 796.2 ICD-10: R03.0 04/25/2016 Active Noninfective gastroenteritis and colitis, unspecified ICD-9: 787.91 ICD-10: K52.9 04/25/2016 Active Medications Medication Codes Instructions Start Date Stop Date Status Fill Instructions morphine ER 30 mg tablet,extended release RxNorm: 469191 1 Tablet(s) PO daily 03/14/2017 04/12/2017 Active cyanocobalamin (vit B-12) 1,000 mcg/mL injection solution RxNorm: 164514 1 Milliliter(s) Inj 03/14/2017 03/14/2017 Inactive morphine ER 30 mg tablet,extended release RxNorm: 450417 1 Tablet(s) PO daily 02/13/2017 03/13/2017 Inactive Kenalog 40 mg/mL suspension for injection RxNorm: 8685992 1 Milliliter(s) Inj 01/12/2017 01/12/2017 Inactive cyanocobalamin (vit B-12) 1,000 mcg/mL injection solution RxNorm: 858392 1 Milliliter(s) Inj 01/12/2017 01/12/2017 Inactive Zithromax [place] 250 mg tablet RxNorm: 998096 1 Tablet(s) PO UD 01/12/2017 01/16/2017 Inactive ceftriaxone 500 mg solution for injection RxNorm: 6787265 1 Milliliter(s) Inj 01/12/2017 01/12/2017 Inactive Vitamin B-12 1,000 mcg/mL injection solution RxNorm: 215392 1 Milliliter(s) Inj EVERY OTHER MONTH 01/04/2017 No Stop Date Active lisinopril 20 mg tablet RxNorm: 418366 1 Tablet(s) PO BID 01/02/2017 12/27/2017 Active lisinopril 20 mg tablet RxNorm: 091064 1 Tablet(s) PO BID 12/12/2016 01/01/2017 Inactive morphine ER 30 mg tablet,extended release RxNorm: 716629 1 Tablet(s) PO daily 12/08/2016 01/06/2017 Inactive lisinopril 20 mg tablet RxNorm: 312591 1 Tablet(s) PO BID 11/03/2016 12/11/2016 Inactive morphine ER 30 mg tablet,extended release RxNorm: 720453 1 Tablet(s) PO daily 11/03/2016 12/02/2016 Inactive cyanocobalamin (vit B-12) 1,000 mcg/mL injection solution RxNorm: 296001 1 Milliliter(s) Inj 10/27/2016 10/27/2016 Inactive lisinopril 10 mg tablet RxNorm: 250948 1 Tablet(s) PO BID 10/06/2016 11/02/2016 Inactive lisinopril 10 mg tablet RxNorm: 351739 1 Tablet(s) PO daily 09/06/2016 10/05/2016 Inactive morphine ER 30 mg tablet,extended release RxNorm: 859074 1 Tablet(s) PO daily 08/18/2016 09/16/2016 Inactive cyanocobalamin (vit B-12) 1,000 mcg/mL injection solution RxNorm: 836715 Milliliter(s) Inj 07/27/2016 07/27/2016 Inactive morphine ER 30 mg tablet,extended release RxNorm: 121996 1 Tablet(s) PO daily 07/21/2016 08/17/2016 Inactive morphine ER 30 mg tablet,extended release RxNorm: 914144 1 Tablet(s) PO daily 06/20/2016 07/19/2016 Inactive morphine ER 30 mg tablet,extended release RxNorm: 650435 1 Tablet(s) PO daily 05/20/2016 06/19/2016 Inactive cyanocobalamin (vit B-12) 1,000 mcg/mL injection solution RxNorm: 011753 1 Milliliter(s) Inj 04/26/2016 04/26/2016 Inactive gentamicin 0.3 % eye drops RxNorm: 979116 2 Drop(s) OPH Q4H 04/26/2016 05/02/2016 Inactive Venofer intravenous RxNorm: 80377 intravenous No Start Date Active Vitamin B-12 1,000 mcg/mL injection solution RxNorm: 451516 1 Milliliter(s) Inj EVERY 3 MONTHS No Start Date 01/03/2017 Inactive morphine ER 30 mg tablet,extended release RxNorm: 124770 1 Tablet(s) PO daily No Start Date 04/25/2016 Inactive Medication Administered Medication Codes Instructions Start Date Status cyanocobalamin (vit B-12) 1,000 mcg/mL injection solution RxNorm: 050113 1Milliliter 03/14/2017 No longer Active Kenalog 40 mg/mL suspension for injection RxNorm: 0555422 1Milliliter 01/12/2017 No longer Active ceftriaxone 500 mg solution for injection RxNorm: 8464310 1Milliliter 01/12/2017 No longer Active cyanocobalamin (vit B-12) 1,000 mcg/mL injection solution RxNorm: 919848 1Milliliter 01/12/2017 No longer Active cyanocobalamin (vit B-12) 1,000 mcg/mL injection solution RxNorm: 362592 1Milliliter 10/27/2016 No longer Active cyanocobalamin (vit B-12) 1,000 mcg/mL injection solution RxNorm: 738372 Milliliter 07/27/2016 No longer Active cyanocobalamin (vit B-12) 1,000 mcg/mL injection solution RxNorm: 002185 1Milliliter 04/26/2016 No longer Active Immunizations Vaccine Codes Date Status Pneumococcal (Adult) CVX: 133 12/12/2016 completed Assessments Condition Codes Effective Dates 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-10: D51.0 ICD-9: 281.0 03/14/2017 Essential (primary) hypertension ICD-10: I10 ICD-9: 401.1 03/14/2017 Chronic pain syndrome ICD-10: G89.4 ICD-9: 338.4 03/14/2017 Acute bronchitis, unspecified ICD-10: J20.9 ICD-9: 466.0 01/12/2017 Cough ICD-10: R05 ICD-9: 786.2 01/12/2017 Encounter for general adult medical examination with abnormal findings ICD-10: Z00.01 ICD-9: V70.0 12/12/2016 Encounter for immunization ICD-10: Z23 ICD-9: V03.89 12/12/2016 Noninfective gastroenteritis and colitis, unspecified ICD-10: K52.9 ICD-9: 787.91 04/26/2016 Elevated blood-pressure reading, without diagnosis of hypertension ICD-10: R03.0 ICD-9: 796.2 04/26/2016 Iron deficiency anemia, unspecified ICD-10: D50.9 ICD-9: 280.9 04/26/2016 Chalazion left upper eyelid ICD-10: H00.14 ICD-9: 373.2 04/26/2016 Reason For Visit Reason For Visit Effective Dates Notes blood pressure followup 03/14/2017 blood pressure followup 01/12/2017 Annual Medicare Wellness Exam 12/12/2016 blood pressure followup 12/08/2016 blood pressure followup 11/03/2016 blood pressure followup 10/06/2016 blood pressure followup 09/06/2016 blood pressure followup 08/23/2016 _ 04/26/2016 establish care Results Observation Observation Code Item Item Code Result Date Tsh Ord6 hTSH II 0.97 uIU/mL 12/13/2016 [...] 33.3 pg 12/13/2016 Cbc With Differential Ord2 [place]% 17.9 % 12/13/2016 Cbc With Differential Ord2 [...] 2.71 K/ul 12/13/2016 Cbc With Differential Ord2 [place] ABS# 1.7 K/ul 12/13/2016 Cbc With Differential Ord2 Eos ABS# 0.3 K/ul 12/13/2016 Cbc With Differential Ord2 Baso ABS# 0.0 K/ul 12/13/2016 Comp Metabolic Sfi237 NA 136 mEq/L 12/13/2016 Comp Metabolic Gwt128 K 4.7 mEq/L 12/13/2016 Comp Metabolic Xlh276 CL 102 mEq/L 12/13/2016 Comp Metabolic Sgy988 CO2 26.0 mEq/L 12/13/2016 Comp Metabolic Ecz974 ANION GAP 13 12/13/2016 Comp Metabolic Tpc443 GLUCOSE 87 mg/dL 12/13/2016 Comp Metabolic Ekt090 Creat 0.9 mg/dL 12/13/2016 Comp Metabolic Tjv990 eGFR 83 ml/min/1.73m2 12/13/2016 Comp Metabolic Gfm533 BUN 17 mg/dL 12/13/2016 Comp Metabolic Awy661 B/C Ratio 18.3 Ratio 12/13/2016 Comp Metabolic Gwu602 CALCIUM 9.1 mg/dL 12/13/2016 Comp Metabolic Urw881 ALK PHOS 90 U/L 12/13/2016 Comp Metabolic Kkb312 AST(SGOT) 22 U/L 12/13/2016 Comp Metabolic Tis167 ALT(SGPT) 15 U/L 12/13/2016 Comp Metabolic Rvb488 BILI T 0.8 mg/dL 12/13/2016 Comp Metabolic Zwq995 ALBUMIN 3.6 g/dL 12/13/2016 Comp Metabolic Nms839 TPRO 6.4 g/dL 12/13/2016 Comp Metabolic Rsg700 GLOB 2.9 g/dL 12/13/2016 Comp Metabolic Wbv145 A/G Ratio 1.2 Ratio 12/13/2016 Comp Metabolic Mjc944 Osmo 273 mOsmo 12/13/2016 Lipid Ord30 CHOL 182 mg/dL 12/13/2016 Lipid Ord30 HDL 64.0 mg/dl 12/13/2016 Lipid Ord30 TRIG 62 mg/dL 12/13/2016 Lipid Ord30 LDL 106 mg/dL 12/13/2016 Lipid Ord30 C/HDL 2.8 Ratio 12/13/2016 Ferritin Ord22 FERRITIN 434.7 ng/mL 12/13/2016 B12 Lmz694 B12 247.00 pg/ml 12/13/2016 Tibc Ord40 Iron [...] 33.7 pg 04/27/2016 Cbc With Differential Ord2 [place]% 13.7 % 04/27/2016 Cbc With Differential Ord2 [...] 3.22 K/ul 04/27/2016 Cbc With Differential Ord2 [place] ABS# 1.2 K/ul 04/27/2016 Cbc With Differential Ord2 Eos ABS# 0.3 K/ul 04/27/2016 Cbc With Differential Ord2 Baso ABS# 0.0 K/ul 04/27/2016 Comp Metabolic Dug561 NA 138 mEq/L 04/27/2016 Comp Metabolic Hlm298 K 4.3 mEq/L 04/27/2016 Comp Metabolic Mfy873 CL 104 mEq/L 04/27/2016 Comp Metabolic Fwq466 CO2 30.0 mEq/L 04/27/2016 Comp Metabolic Wph584 ANION GAP 8 04/27/2016 Comp Metabolic Xpv600 GLUCOSE 87 mg/dL 04/27/2016 Comp Metabolic Sxr799 Creat 0.9 mg/dL 04/27/2016 Comp Metabolic Udb167 eGFR 82 ml/min/1.73m2 04/27/2016 Comp Metabolic Nxj281 BUN 13 mg/dL 04/27/2016 Comp Metabolic Bvz820 B/C Ratio 13.8 Ratio 04/27/2016 Comp Metabolic Htu497 CALCIUM 9.0 mg/dL 04/27/2016 Comp Metabolic Esd790 ALK PHOS 62 U/L 04/27/2016 Comp Metabolic Saz749 AST(SGOT) 24 U/L 04/27/2016 Comp Metabolic Vcz880 ALT(SGPT) 15 U/L 04/27/2016 Comp Metabolic Cfe618 BILI T 0.7 mg/dL 04/27/2016 Comp Metabolic Get943 ALBUMIN 3.6 g/dL 04/27/2016 Comp Metabolic Thi072 TPRO 6.1 g/dL 04/27/2016 Comp Metabolic Jii290 GLOB 2.5 g/dL 04/27/2016 Comp Metabolic Hnw176 A/G Ratio 1.4 Ratio 04/27/2016 Comp Metabolic Fjp117 Osmo 275 mOsmo 04/27/2016 B12 Osr105 B12 >1500.00 pg/ml 04/27/2016 Iron Ord72 Iron 104 ug/dl 04/27/2016 Lipid Ord30 CHOL 178 mg/dL 04/27/2016 Lipid Ord30 HDL 70.0 mg/dl 04/27/2016 Lipid Ord30 TRIG 57 mg/dL 04/27/2016 Lipid Ord30 LDL 97 mg/dL 04/27/2016 Lipid Ord30 C/HDL 2.5 Ratio 04/27/2016 Tsh Ord6 hTSH II 1.89 uIU/mL 04/27/2016 Review of Systems System Result Effective Dates Constitutional No recent illness 03/14/2017 Constitutional No [...] Effective Dates Notes Full Exam - General 1995 Constitutional general appearance Development: well developed 03/14/2017 [...] dentition 09/06/2016 None Full Exam - General 1995 Ears/Nose/Throat oral cavity/pharynx/larynx Overall: oral mucosa clear 09/06/2016 None Full Exam - General 1995 Ears/Nose/Throat oral cavity/pharynx/larynx Overall: oropharyngeal mucosa clear 09/06/2016 None Full Exam - General 1995 Ears/Nose/Throat oral cavity/pharynx/larynx Overall: hypopharynx benign 09/06/2016 [...] Procedure Codes Date THER/PROPH/DIAG INJ SC/IM CPT-4: 25359Ksfqmcx 03/14/2017 VITAMIN B12 INJECTION CPT-4: P7211Gbaoxqb 03/14/2017 TRIAMCINOLONE ACET INJ NOS CPT-4: G3037Vkaveyd 01/12/2017 ROCEPHIN, PER 250 MG CPT-4: T7714Wbofdhl 01/12/2017 VITAMIN B12 INJECTION CPT-4: D9869Vyzmhcn 01/12/2017 THER/PROPH/DIAG INJ SC/IM CPT-4: 32690Krmaydk 01/12/2017 PPPS, SUBSEQ VISIT CPT-4: W9092Ohywxxe 12/12/2016 PNEUMOCOCCAL VACC [address]: 83966077 CPT-4: 52161Ylpmcfu 12/12/2016 ADMIN PNEUMOCOCCAL VACCINE SNOMED CT: 98278796 CPT-4: X0910Tspwvyp 12/12/2016 THER/PROPH/DIAG INJ SC/IM CPT-4: 81972Vuewbnp 10/27/2016 VITAMIN B12 INJECTION CPT-4: S3683Vbfuggo 10/27/2016 THER/PROPH/DIAG INJ SC/IM CPT-4: 95829Tkqgfqq 07/27/2016 VITAMIN B12 INJECTION CPT-4: L8302Eyqebfs 07/27/2016 THER/PROPH/DIAG INJ SC/IM CPT-4: 58725Odcpqkq 04/26/2016 VITAMIN B12 INJECTION CPT-4: D4705Gsylhlm 04/26/2016 Vital Signs Date Vital 03/14/2017 Blood Pressure 1: 142/74 Code: 8480-6 BMI: 23.8 Code: 58014-2 Heart Rate 1: 69 bpm Height: 5'7" SpO2: 94% Weight: 152 lbs 01/12/2017 Blood Pressure 1: 156/90 Code: 8480-6 BMI: 23.4 Code: 81257-2 Heart Rate 1: 90 bpm Height: 5'7" SpO2: 97% Temperature: 37.4 (C) / 99.3 (F) Weight: 149 lbs 8 oz 12/12/2016 Blood Pressure 1: 140/78 Code: 8480-6 BMI: 24.3 Code: 23530-7 Heart Rate 1: 73 bpm Height: 5'7" SpO2: 96% Waist Measure (cm): 90 cm Weight: 155 lbs 12/08/2016 Blood Pressure 1: 148/84 Code: 8480-6 BMI: 24.3 Code: 74566-9 Heart Rate 1: 80 bpm Height: 5'7" SpO2: 96% Weight: 155 lbs 11/03/2016 Blood Pressure 1: 156/84 Code: 8480-6 Blood Pressure 2: 155/94 Code: 8480-6 BMI: 24.3 Code: 91523-0 Heart Rate 1: 81 bpm Height: 5'7" SpO2: 98% Weight: 155 lbs 10/06/2016 Blood Pressure 1: 175/95 Code: 8480-6 Heart Rate 1: 77 bpm Respiratory Rate: 16 bpm SpO2: 98% Temperature: 36.4 (C) / 97.5 (F) Weight: 157 lbs 09/06/2016 Blood Pressure 1: 136/80 Code: 8480-6 BMI: 24.1 Code: 66383-3 Heart Rate 1: 82 bpm Height: 5'8" SpO2: 97% Weight: 156 lbs 08/23/2016 Blood Pressure 1: 160/80 Code: 8480-6 BMI: 24.4 Code: 26048-7 Heart Rate 1: 88 bpm Height: 5'8" SpO2: 95% Weight: 158 lbs 04/26/2016 Blood Pressure 1: 156/74 Code: 8480-6 BMI: 24.5 Code: 16590-2 Heart Rate 1: 70 bpm Height: 5'8" SpO2: 97% Weight: 159 lbs Functional Status No Functional Status data History of Present Illness Symptom Name Status Result Effective Date Notes blood pressure followup Onset and Resolution ongoing [...] data Encounters Encounter Performer Location Codes Date ([id number]) [id number] EST. PATIENT, LEVEL III Diagnosis: Essential (primary) hypertension[ICD10: I10] Diagnosis: Chronic pain syndrome[ICD10: G89.4] Diagnosis: 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 deficiency[ICD10: D51.0] Ana Paris MD, [facility] CPT-4: 07247 03/14/2017 ([id number]) 23276 EST. PATIENT, LEVEL III Diagnosis: Cough[ICD10: R05] Diagnosis: Acute bronchitis, unspecified[ICD10: J20.9] Diagnosis: Chronic pain syndrome[ICD10: G89.4] Diagnosis: 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 deficiency[ICD10: D51.0] Ana Paris MD, [facility] CPT-4: 50731 01/12/2017 ([id number]) [id number] EST. PATIENT, LEVEL III Diagnosis: Essential (primary) hypertension[ICD10: I10] Diagnosis: Chronic pain syndrome[ICD10: G89.4] [facility] CPT-4: 01308 12/08/2016 [id number] EST. PATIENT, LEVEL III Diagnosis: Essential (primary) hypertension[ICD10: I10] Ana Paris MD, [facility] CPT-4: 74642 11/03/2016 ([id number]) 31398 EST. PATIENT, LEVEL III Diagnosis: Essential (primary) hypertension[ICD10: I10] Ana Paris MD, [facility] CPT-4: 42961 10/06/2016 ([id number]) 87691 EST. PATIENT, LEVEL III Diagnosis: Essential (primary) hypertension[ICD10: I10] Ana Paris MD, [facility] CPT-4: 85895 09/06/2016 ([id number]) 89663 EST. PATIENT, LEVEL III Diagnosis: Essential (primary) hypertension[ICD10: I10] Ana Paris MD, [facility] CPT-4: 17793 08/23/2016 ([id number]) OFFICE VISIT, NEW - LEVEL 4 Diagnosis: Noninfective gastroenteritis and colitis, unspecified[ICD10: K52.9] Diagnosis: 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 deficiency[ICD10: D51.0] Diagnosis: Iron deficiency anemia, unspecified[ICD10: D50.9] Diagnosis: Chalazion left upper eyelid[ICD10: H00.14] Diagnosis: Elevated blood-pressure reading, without diagnosis of hypertension[ICD10: R03.0] Andree Paris MD, [facility] CPT-4: 20744 04/26/2016 Plan of Care Planned Activity Notes Codes Status Date Visit Plan: Hypertension - well controlled - continue with current medications, continue with no added salt diet. Pt has been encouraged to exercise daily.The pt has been advised to call the office if there are any acute concerns about change in blood pressure readings at home.Chronic Pain Syndrome - pt has chronic pain - has been maintained on current medications, has not sought out other medications, only uses PRN pain medications as directed, and understands the consequences of over-medication. 03/14/2017 Appointment: Ana Pedraza WPtel: [address] [place], [place] [phone] (30 min) [facility] 03/14/2017 Patient Education: Patient Medication Summary Completed 03/14/2017 Visit Plan: Bronchitis - acute case of bronchitis identified. Pt has been given antibiotics, breathing treatments as appropriate, and pt has been instructed to call if symptoms are not improved, or if symptoms acutely worsen.Chronic Pain Syndrome - pt has chronic pain - has been maintained on current medications, has not sought out other medications, only uses PRN pain medications as directed, and understands the consequences of over-medication. 01/12/2017 Appointment: Ana Pedraza WPtel: [phone] [phone] [place] [address] (30 min) Complex 01/12/2017 Patient Education: Patient [...] risk and to maintain independece in the home.Today we discussed the need for the patient [...] risk and to maintain independece in the home.Today we discussed the need for the patient to create paperwork for Advanced directives as well as for the patient to provide this office with a copy of her DOPA paperwork for health care surrogate. 12/12/2016 Appointment: Ana Pedraza WPtel: [phone] [facility] - Annual Wellness Visit 12/12/2016 Patient Education: Patient Medication Summary Completed 12/12/2016 Care Plan: Iron And Tibc Pending 12/12/2016 Visit Plan: Hypertension - well controlled - continue with current medications, continue with no added salt diet. Pt has been encouraged to exercise daily.The pt has been advised to call the office if there are any acute concerns about change in blood pressure readings at home.Chronic Pain Syndrome - pt has chronic pain - has been maintained on current medications, has not sought out other medications, only uses PRN pain medications as directed, and understands the consequences of over-medication. 12/08/2016 Appointment: Ana Pedraza WPtel: [address] [place] [address] (30 min) Complex 12/08/2016 Patient Education: Patient [...] the office next week for practitioner to review.The pt is to call for acute concerns. 11/03/2016 Appointment: Ana Pedraza WPtel: [phone] (30 min) Complex 11/03/2016 Patient Education: [...] the office next week for practitioner to review.The pt is to call for acute concerns. 10/06/2016 Appointment: Ana Pedraza WPtel: [phone] [phone] (30 min) Complex 10/06/2016 Patient Education: [...] the office next week for practitioner to review.The pt is to call for acute concerns. 09/06/2016 Appointment: Ana Pedraza WPtel: [phone] [phone] (30 min) Complex 09/06/2016 Patient Education: Patient Medication Summary Completed 09/06/2016 Visit Plan: Hypertension - uncontrolled - patient does not want to start medication- the patient has been counseled to cut back [...] concerns. 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 04/26/2016 [id number] [place] [facility] 04/26/2016 Patient Education: Patient Medication Summary Completed 04/26/2016 Instructions Comment PREVNAR 13 RECOMMEND SHINGLES VACCINE [...]
--- OUTSIDE RECORDS SUMMARY | 2019-02-13 09:18 | XMS REPORT | CCD ---
Author Author Andree Paris Organization Andree Paris MD, [facility] Address [address] [place] [address] Phone Care Team Providers Care Product Development Coordinator Name Role Phone PP Unavailable CCM Unavailable Summary Purpose Interface Exchange Insurance Providers Payer name Policy type / Coverage type Covered democrat ID Effective Begin Date Effective End Date WPS Medicare Part B Medicare Part B [id number] Unknown Unknown FOR LIFE WPS Medicare Part B [id number] Unknown Unknown Family history Father Diagnosis Age At Onset No Known Diseases N/A Mother Diagnosis Age At Onset No Known Diseases N/A Social History Social History Element Codes Description Effective Dates Marital status Unknown 04/26/2016 Number of children Unknown 3 04/26/2016 Employment Unknown Retired 04/26/[address]: 4049468 Former smoker Quit 1968 04/26/[address]: 624475 Currently drinks alcohol 04/26/2016 Has the patient [...] (vit B-12) 1,000 mcg/mL injection solution RxNorm: 610847 1 Milliliter(s) Inj 03/14/2017 03/14/2017 Inactive morphine ER 30 mg tablet,extended release RxNorm: 199186 1 Tablet(s) PO daily 03/14/2017 04/12/2017 Active morphine ER 30 mg tablet,extended release RxNorm: 710309 1 Tablet(s) PO daily 02/13/2017 03/13/2017 Inactive Kenalog 40 mg/mL suspension for injection RxNorm: 8618503 1 Milliliter(s) Inj 01/12/2017 01/12/2017 Inactive cyanocobalamin (vit B-12) 1,000 mcg/mL injection solution RxNorm: 681855 1 Milliliter(s) Inj 01/12/2017 01/12/2017 Inactive Zithromax Z-[place] 250 mg tablet RxNorm: 377816 1 Tablet(s) PO UD 01/12/2017 01/16/2017 Inactive ceftriaxone 500 mg solution for injection RxNorm: 4320807 1 Milliliter(s) Inj 01/12/2017 01/12/2017 Inactive Vitamin B-12 1,000 mcg/mL injection solution RxNorm: 499421 1 Milliliter(s) Inj EVERY OTHER MONTH 01/04/2017 No Stop Date Active lisinopril 20 mg tablet RxNorm: 304790 1 Tablet(s) PO BID 01/02/2017 12/27/2017 Active lisinopril 20 mg tablet RxNorm: 249865 1 Tablet(s) PO BID 12/12/2016 01/01/2017 Inactive morphine ER 30 mg tablet,extended release RxNorm: 249264 1 Tablet(s) PO daily 12/08/2016 01/06/2017 Inactive lisinopril 20 mg tablet RxNorm: 579511 1 Tablet(s) PO BID 11/03/2016 12/11/2016 Inactive morphine ER 30 mg tablet,extended release RxNorm: 207267 1 Tablet(s) PO daily 11/03/2016 12/02/2016 Inactive cyanocobalamin (vit B-12) 1,000 mcg/mL injection solution RxNorm: 493510 1 Milliliter(s) Inj 10/27/2016 10/27/2016 Inactive lisinopril 10 mg tablet RxNorm: 054221 1 Tablet(s) PO BID 10/06/2016 11/02/2016 Inactive lisinopril 10 mg tablet RxNorm: 237930 1 Tablet(s) PO daily 09/06/2016 10/05/2016 Inactive morphine ER 30 mg tablet,extended release RxNorm: 983722 1 Tablet(s) PO daily 08/18/2016 09/16/2016 Inactive cyanocobalamin (vit B-12) 1,000 mcg/mL injection solution RxNorm: 776340 Milliliter(s) Inj 07/27/2016 07/27/2016 Inactive morphine ER 30 mg tablet,extended release RxNorm: 957367 1 Tablet(s) PO daily 07/21/2016 08/17/2016 Inactive morphine ER 30 mg tablet,extended release RxNorm: 205518 1 Tablet(s) PO daily 06/20/2016 07/19/2016 Inactive morphine ER 30 mg tablet,extended release RxNorm: 804099 1 Tablet(s) PO daily 05/20/2016 06/19/2016 Inactive cyanocobalamin (vit B-12) 1,000 mcg/mL injection solution RxNorm: 484467 1 Milliliter(s) Inj 04/26/2016 04/26/2016 Inactive gentamicin 0.3 % eye drops RxNorm: 580102 2 Drop(s) OPH Q4H 04/26/2016 05/02/2016 Inactive Venofer intravenous RxNorm: 16351 intravenous No Start Date Active Vitamin B-12 1,000 mcg/mL injection solution RxNorm: 846821 1 Milliliter(s) Inj EVERY 3 MONTHS No Start Date 01/03/2017 Inactive morphine ER 30 mg tablet,extended release RxNorm: 389589 1 Tablet(s) PO daily No Start Date 04/25/2016 Inactive Medication Administered Medication Codes Instructions Start Date Status cyanocobalamin (vit B-12) 1,000 mcg/mL injection solution RxNorm: 401020 1Milliliter 03/14/2017 Active Kenalog 40 mg/mL suspension for injection RxNorm: 6249954 1Milliliter 01/12/2017 No longer Active ceftriaxone 500 mg solution for injection RxNorm: 7913988 1Milliliter 01/12/2017 No longer Active cyanocobalamin (vit B-12) 1,000 mcg/mL injection solution RxNorm: 784480 1Milliliter 01/12/2017 No longer Active cyanocobalamin (vit B-12) 1,000 mcg/mL injection solution RxNorm: 236072 1Milliliter 10/27/2016 No longer Active cyanocobalamin (vit B-12) 1,000 mcg/mL injection solution RxNorm: 532594 Milliliter 07/27/2016 No longer Active cyanocobalamin (vit B-12) 1,000 mcg/mL injection solution RxNorm: 042580 1Milliliter 04/26/2016 No longer Active Immunizations Vaccine [...] 28.8 % 12/13/2016 Cbc With Differential Ord2 [place]% 17.9 % 12/13/2016 Cbc With Differential Ord2 MCH 33.3 pg 12/13/2016 Cbc With Differential Ord2 MCHC 33.3 pg 12/13/2016 Cbc With Differential Ord2 Eos% 3.3 % 12/13/2016 Cbc With Differential Ord2 Baso% 0.4 % 12/13/2016 Cbc With Differential Ord2 PLT 380 K/ul 12/13/2016 Cbc With Differential Ord2 Neut ABS# 4.67 K/ul 12/13/2016 Cbc With Differential Ord2 RDW 14.4 % 12/13/2016 Cbc With Differential Ord2 Lymph ABS# 2.71 K/ul 12/13/2016 Cbc With Differential Ord2 [place] ABS# 1.7 K/ul 12/13/2016 Cbc With Differential Ord2 Eos ABS# 0.3 K/ul 12/13/2016 Cbc With Differential Ord2 Baso ABS# 0.0 K/ul 12/13/2016 Comp Metabolic Ydr845 NA 136 mEq/L 12/13/2016 Comp Metabolic Ddi742 K 4.7 mEq/L 12/13/2016 Comp Metabolic Grj724 CL 102 mEq/L 12/13/2016 Comp Metabolic Dde660 CO2 26.0 mEq/L 12/13/2016 Comp Metabolic Eka128 ANION GAP 13 12/13/2016 Comp Metabolic Ona466 GLUCOSE 87 mg/dL 12/13/2016 Comp Metabolic Dzz892 Creat 0.9 mg/dL 12/13/2016 Comp Metabolic Dsf315 eGFR 83 ml/min/1.73m2 12/13/2016 Comp Metabolic Nvd950 BUN 17 mg/dL 12/13/2016 Comp Metabolic Sax891 B/C Ratio 18.3 Ratio 12/13/2016 Comp Metabolic Fzu152 CALCIUM 9.1 mg/dL 12/13/2016 Comp Metabolic Cpe886 ALK PHOS 90 U/L 12/13/2016 Comp Metabolic Qyl266 AST(SGOT) 22 U/L 12/13/2016 Comp Metabolic Cdn517 ALT(SGPT) 15 U/L 12/13/2016 Comp Metabolic Jcs083 BILI T 0.8 mg/dL 12/13/2016 Comp Metabolic Jha762 ALBUMIN 3.6 g/dL 12/13/2016 Comp Metabolic Mvm846 TPRO 6.4 g/dL 12/13/2016 Comp Metabolic Jyq997 GLOB 2.9 g/dL 12/13/2016 Comp Metabolic Rfe836 A/G Ratio 1.2 Ratio 12/13/2016 Comp Metabolic Phu289 Osmo 273 mOsmo 12/13/2016 Lipid Ord30 CHOL 182 mg/dL 12/13/2016 Lipid Ord30 HDL 64.0 mg/dl 12/13/2016 Lipid Ord30 TRIG 62 mg/dL 12/13/2016 Lipid Ord30 LDL 106 mg/dL 12/13/2016 Lipid Ord30 C/HDL 2.8 Ratio 12/13/2016 Ferritin Ord22 FERRITIN 434.7 ng/mL 12/13/2016 B12 Ldj943 B12 247.00 pg/ml 12/13/2016 Tibc Ord40 Iron [...] 33.7 pg 04/27/2016 Cbc With Differential Ord2 [place]% 13.7 % 04/27/2016 Cbc With Differential Ord2 [...] 3.22 K/ul 04/27/2016 Cbc With Differential Ord2 [place] ABS# 1.2 K/ul 04/27/2016 Cbc With Differential Ord2 Eos ABS# 0.3 K/ul 04/27/2016 Cbc With Differential Ord2 Baso ABS# 0.0 K/ul 04/27/2016 Comp Metabolic Gsv659 NA 138 mEq/L 04/27/2016 Comp Metabolic Jvf210 K 4.3 mEq/L 04/27/2016 Comp Metabolic Swa896 CL 104 mEq/L 04/27/2016 Comp Metabolic Fam948 CO2 30.0 mEq/L 04/27/2016 Comp Metabolic Wqy573 ANION GAP 8 04/27/2016 Comp Metabolic Vha874 GLUCOSE 87 mg/dL 04/27/2016 Comp Metabolic Qto964 Creat 0.9 mg/dL 04/27/2016 Comp Metabolic Emh415 eGFR 82 ml/min/1.73m2 04/27/2016 Comp Metabolic Plp243 BUN 13 mg/dL 04/27/2016 Comp Metabolic Qqi730 B/C Ratio 13.8 Ratio 04/27/2016 Comp Metabolic Pjh187 CALCIUM 9.0 mg/dL 04/27/2016 Comp Metabolic Lkt285 ALK PHOS 62 U/L 04/27/2016 Comp Metabolic Lnz491 AST(SGOT) 24 U/L 04/27/2016 Comp Metabolic Orc261 ALT(SGPT) 15 U/L 04/27/2016 Comp Metabolic Bsz628 BILI T 0.7 mg/dL 04/27/2016 Comp Metabolic Upy818 ALBUMIN 3.6 g/dL 04/27/2016 Comp Metabolic Few777 TPRO 6.1 g/dL 04/27/2016 Comp Metabolic Eno901 GLOB 2.5 g/dL 04/27/2016 Comp Metabolic Vzj999 A/G Ratio 1.4 Ratio 04/27/2016 Comp Metabolic Ttl835 Osmo 275 mOsmo 04/27/2016 B12 Rqw689 B12 >1500.00 pg/ml 04/27/2016 Iron Ord72 Iron [...] Procedure Codes Date THER/PROPH/DIAG INJ SC/IM CPT-4: 73888Vmaizsw 03/14/2017 VITAMIN B12 INJECTION CPT-4: W9262Xruzbeu 03/14/2017 TRIAMCINOLONE ACET INJ NOS CPT-4: F0585Votdtbf 01/12/2017 ROCEPHIN, PER 250 MG CPT-4: B0077Vospmgo 01/12/2017 VITAMIN B12 INJECTION CPT-4: P0477Dyxqlka 01/12/2017 THER/PROPH/DIAG INJ SC/IM CPT-4: 61238Meerlvh 01/12/2017 PPPS, SUBSEQ VISIT CPT-4: I4676Joewbor 12/12/2016 PNEUMOCOCCAL VACC [address]: 63637251 CPT-4: 93592Qebtysi 12/12/2016 ADMIN PNEUMOCOCCAL VACCINE SNOMED CT: 09748423 CPT-4: F9511Hjfndlp 12/12/2016 THER/PROPH/DIAG INJ SC/IM CPT-4: 99215Ccqnace 10/27/2016 VITAMIN B12 INJECTION CPT-4: O4429Lxvbwrk 10/27/2016 THER/PROPH/DIAG INJ SC/IM CPT-4: 20699Gwcwjjo 07/27/2016 VITAMIN B12 INJECTION CPT-4: D1948Khwibbd 07/27/2016 THER/PROPH/DIAG INJ SC/IM CPT-4: 12947Twpcayl 04/26/2016 VITAMIN B12 INJECTION CPT-4: U8897Psaauus 04/26/2016 Vital Signs Date Vital 03/14/2017 Blood Pressure 1: 142/74 Code: 8480-6 BMI: 23.8 Code: 35493-1 Heart Rate 1: 69 bpm Height: 5'7" SpO2: 94% Weight: 152 lbs 01/12/2017 Blood Pressure 1: 156/90 Code: 8480-6 BMI: 23.4 Code: 84336-1 Heart Rate 1: 90 bpm Height: 5'7" SpO2: 97% Temperature: 37.4 (C) / 99.3 (F) Weight: 149 lbs 8 oz 12/12/2016 Blood Pressure 1: 140/78 Code: 8480-6 BMI: 24.3 Code: 77508-2 Heart Rate 1: 73 bpm Height: 5'7" SpO2: 96% Waist Measure (cm): 90 cm Weight: 155 lbs 12/08/2016 Blood Pressure 1: 148/84 Code: 8480-6 BMI: 24.3 Code: 60673-3 Heart Rate 1: 80 bpm Height: 5'7" SpO2: 96% Weight: 155 lbs 11/03/2016 Blood Pressure 1: 156/84 Code: 8480-6 Blood Pressure 2: 155/94 Code: 8480-6 BMI: 24.3 Code: 78579-3 Heart Rate 1: 81 bpm Height: 5'7" SpO2: 98% Weight: 155 lbs 10/06/2016 Blood Pressure 1: 175/95 Code: 8480-6 Heart Rate 1: 77 bpm Respiratory Rate: 16 bpm SpO2: 98% Temperature: 36.4 (C) / 97.5 (F) Weight: 157 lbs 09/06/2016 Blood Pressure 1: 136/80 Code: 8480-6 BMI: 24.1 Code: 12572-7 Heart Rate 1: 82 bpm Height: 5'8" SpO2: 97% Weight: 156 lbs 08/23/2016 Blood Pressure 1: 160/80 Code: 8480-6 BMI: 24.4 Code: 96045-5 Heart Rate 1: 88 bpm Height: 5'8" SpO2: 95% Weight: 158 lbs 04/26/2016 Blood Pressure 1: 156/74 Code: 8480-6 BMI: 24.5 Code: 83833-3 Heart Rate 1: 70 bpm Height: 5'8" [...] data Encounters Encounter Performer Location Codes Date ([id number]) 16846 EST. PATIENT, LEVEL III Diagnosis: Essential (primary) hypertension[ICD10: I10] Diagnosis: Chronic pain syndrome[ICD10: G89.4] Diagnosis: 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 deficiency[ICD10: D51.0] Ana Paris MD, [facility] CPT-4: 12849 03/14/2017 ([id number]) 88213 EST. PATIENT, LEVEL III Diagnosis: Cough[ICD10: R05] Diagnosis: Acute bronchitis, unspecified[ICD10: J20.9] Diagnosis: Chronic pain syndrome[ICD10: G89.4] Diagnosis: 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 deficiency[ICD10: D51.0] Ana Paris MD, [facility] CPT-4: 28152 01/12/2017 ([id number]) 42319 EST. PATIENT, LEVEL III Diagnosis: Essential (primary) hypertension[ICD10: I10] Diagnosis: Chronic pain syndrome[ICD10: G89.4] [facility] CPT-4: 42331 12/08/2016 [id number]) 95942 EST. PATIENT, LEVEL III Diagnosis: Essential (primary) hypertension[ICD10: I10] [facility] CPT-4: 00690 11/03/2016 ([id number]) 41127 EST. PATIENT, LEVEL III Diagnosis: Essential (primary) hypertension[ICD10: I10] Ana Paris MD, [facility] CPT-4: 13907 10/06/2016 ([id number]) 06390 EST. PATIENT, LEVEL III Diagnosis: Essential (primary) hypertension[ICD10: I10] Ana Paris MD, [facility] CPT-4: 21817 09/06/2016 ([id number]) 85035 EST. PATIENT, LEVEL III Diagnosis: Essential (primary) hypertension[ICD10: I10] Ana Paris MD, [facility] CPT-4: 80461 08/23/2016 ([id number]) OFFICE VISIT, NEW - LEVEL 4 Diagnosis: Noninfective gastroenteritis and colitis, unspecified[ICD10: K52.9] Diagnosis: 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 deficiency[ICD10: D51.0] Diagnosis: Iron deficiency anemia, unspecified[ICD10: D50.9] Diagnosis: Chalazion left upper eyelid[ICD10: H00.14] Diagnosis: Elevated blood-pressure reading, without diagnosis of hypertension[ICD10: R03.0] Andree Paris MD, [facility] CPT-4: 69970 04/26/2016 Plan of Care Planned Activity Notes [...] and understands the consequences of over-medication. 03/14/2017 Patient Education: Patient Medication Summary Completed [...] the consequences of over-medication. 01/12/2017 Appointment: Ana Pedrazal: [phone] [phone] (30 min) Complex 01/12/2017 Patient Education: Patient [...] care surrogate. 12/12/2016 [facility]ment: [phone] [phone] [facility] - Annual Wellness Visit 12/12/2016 Patient Education: [...] of over-medication. 12/08/2016 Appointment: Ana Pedraza WPtel: [phone] [phone] (30 min) Complex 12/08/2016 Patient Education: Patient [...] acute concerns. 11/03/2016 Appointment: Ana Pedraza WPtel: [phone] [phone] (30 min) Complex 11/03/2016 Patient Education: [...] acute concerns. 10/06/2016 Appointment: Ana Pedraza WPtel: [phone] [phone] (30 min) Complex 10/06/2016 Patient Education: [...] acute concerns. 09/06/2016 Appointment: Ana Pedraza WPtel: [facility] [phone] (30 min) Complex 09/06/2016 Patient Education: [...] acute concerns. 08/23/2016 Appointment: Ana Pedraza WPtel: [facility] [phone] (15 min) Moderate 08/23/2016 Patient Education: [...] for gentamycin. 04/26/2016 Appointment: Andree Paris WPtel: [phone] New Patient 04/26/2016 Patient Education: Patient Medication [...]
--- OUTSIDE RECORDS SUMMARY | 2019-02-13 09:19 | XMS REPORT | CCD ---
Author Author [facility] Organization [facility] Address [address] [place] [address] Phone Care Team Providers Care Launch Engineer Name Role Phone PP Unavailable CCM Unavailable Summary Purpose Interface Exchange Insurance Providers Payer name Policy type / Coverage type Covered green party ID Effective Begin Date Effective End Date WPS Medicare Part B Medicare Part B [id number] Unknown Unknown FOR LIFE WPS Medicare Part B [id number] Unknown Unknown Family history Father Diagnosis Age At Onset No Known Diseases N/A Mother Diagnosis Age At Onset No Known Diseases N/A Social History Social History Element Codes Description Effective Dates Marital status Unknown 04/26/2016 Number of children Unknown 3 04/26/2016 Employment Unknown Retired 04/26/[address]: 2961052 Former smoker Quit 1968 04/26/[address]: 667183 Currently drinks alcohol 04/26/2016 Has the patient ever used illegal drugs? Unknown Has never used illegal drugs 04/26/2016 Allergies, Adverse Reactions, Alerts Substance Reaction Codes Entered Date Inactivated Date Status ibuprofen rash RxNorm: 5640 04/26/2016 No Inactive Date Active Past Medical History Illness Codes Condition Status Onset Date Resolved Date Acute bronchitis, unspecified ICD-9: 466.0 ICD-10: J20.9 Active 01/12/2017 Unknown Chronic pain syndrome ICD- 9: 338.4 ICD-10: G89.4 Active 12/08/2016 Unknown Cough ICD-9: 786.2 ICD-10: R05 Active 01/12/2017 Unknown 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-9: 281.0 ICD-10: D51.0 Active 07/26/2016 Unknown Encounter for general adult medical examination with abnormal findings ICD-9: V70.0 ICD-10: Z00.01 Active 12/12/2016 Unknown Encounter for immunization ICD-9: V03.89 ICD-10: Z23 Active 12/12/2016 Unknown Essential (primary) hypertension ICD-9: 401.1 ICD-10: [...] Problems Condition Codes Effective Dates Condition Status Acute bronchitis, unspecified ICD-9: 466.0 ICD-10: J20.9 01/12/2017 Active Chronic pain syndrome ICD- 9: 338.4 ICD-10: G89.4 12/08/2016 Active Cough ICD-9: 786.2 ICD-10: R05 01/12/2017 Active 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-9: 281.0 ICD-10: D51.0 07/26/2016 Active Encounter for general adult medical examination with abnormal findings ICD-9: V70.0 ICD-10: Z00.01 12/12/2016 Active Encounter for immunization ICD-9: V03.89 ICD-10: Z23 12/12/2016 Active Essential (primary) hypertension ICD-9: 401.1 ICD-10: [...] morphine ER 30 mg tablet,extended release RxNorm: 568716 1 Tablet(s) PO daily 02/13/2017 03/14/2017 Active Kenalog 40 mg/mL suspension for injection RxNorm: 8636006 1 Milliliter(s) Inj 01/12/2017 01/12/2017 Inactive cyanocobalamin (vit B-12) 1,000 mcg/mL injection solution RxNorm: 702934 1 Milliliter(s) Inj 01/12/2017 01/12/2017 Inactive Zithromax Z-[place] 250 mg tablet RxNorm: 091548 1 Tablet(s) PO UD 01/12/2017 01/16/2017 Inactive ceftriaxone 500 mg solution for injection RxNorm: 4865820 1 Milliliter(s) Inj 01/12/2017 01/12/2017 Inactive Vitamin B-12 1,000 mcg/mL injection solution RxNorm: 102594 1 Milliliter(s) Inj EVERY OTHER MONTH 01/04/2017 No Stop Date Active lisinopril 20 mg tablet RxNorm: 598791 1 Tablet(s) PO BID 01/02/2017 12/27/2017 Active lisinopril 20 mg tablet RxNorm: 716972 1 Tablet(s) PO BID 12/12/2016 01/01/2017 Inactive morphine ER 30 mg tablet,extended release RxNorm: 848614 1 Tablet(s) PO daily 12/08/2016 01/06/2017 Inactive lisinopril 20 mg tablet RxNorm: 215336 1 Tablet(s) PO BID 11/03/2016 12/11/2016 Inactive morphine ER 30 mg tablet,extended release RxNorm: 992137 1 Tablet(s) PO daily 11/03/2016 12/02/2016 Inactive cyanocobalamin (vit B-12) 1,000 mcg/mL injection solution RxNorm: 675981 1 Milliliter(s) Inj 10/27/2016 10/27/2016 Inactive lisinopril 10 mg tablet RxNorm: 945161 1 Tablet(s) PO BID 10/06/2016 11/02/2016 Inactive lisinopril 10 mg tablet RxNorm: 133673 1 Tablet(s) PO daily 09/06/2016 10/05/2016 Inactive morphine ER 30 mg tablet,extended release RxNorm: 593728 1 Tablet(s) PO daily 08/18/2016 09/16/2016 Inactive cyanocobalamin (vit B-12) 1,000 mcg/mL injection solution RxNorm: 732454 Milliliter(s) Inj 07/27/2016 07/27/2016 Inactive morphine ER 30 mg tablet,extended release RxNorm: 026040 1 Tablet(s) PO daily 07/21/2016 08/17/2016 Inactive morphine ER 30 mg tablet,extended release RxNorm: 330035 1 Tablet(s) PO daily 06/20/2016 07/19/2016 Inactive morphine ER 30 mg tablet,extended release RxNorm: 442822 1 Tablet(s) PO daily 05/20/2016 06/19/2016 Inactive cyanocobalamin (vit B-12) 1,000 mcg/mL injection solution RxNorm: 008253 1 Milliliter(s) Inj 04/26/2016 04/26/2016 Inactive gentamicin 0.3 % eye drops RxNorm: 123751 2 Drop(s) OPH Q4H 04/26/2016 05/02/2016 Inactive Venofer intravenous RxNorm: 21176 intravenous No Start Date Active Vitamin B-12 1,000 mcg/mL injection solution RxNorm: 535789 1 Milliliter(s) Inj EVERY 3 MONTHS No Start Date 01/03/2017 Inactive morphine ER 30 mg tablet,extended release RxNorm: 575696 1 Tablet(s) PO daily No Start Date 04/25/2016 Inactive Medication Administered Medication Codes Instructions Start Date Status Kenalog 40 mg/mL suspension for injection RxNorm: 8582474 1Milliliter 01/12/2017 No longer Active ceftriaxone 500 mg solution for injection RxNorm: 4535782 1Milliliter 01/12/2017 No longer Active cyanocobalamin (vit B-12) 1,000 mcg/mL injection solution RxNorm: 593770 1Milliliter 01/12/2017 No longer Active cyanocobalamin (vit B-12) 1,000 mcg/mL injection solution RxNorm: 086835 1Milliliter 10/27/2016 No longer Active cyanocobalamin (vit B-12) 1,000 mcg/mL injection solution RxNorm: 153798 Milliliter 07/27/2016 No longer Active cyanocobalamin (vit B-12) 1,000 mcg/mL injection solution RxNorm: 629455 1Milliliter 04/26/2016 No longer Active Immunizations Vaccine Codes Date Status Pneumococcal (Adult) CVX: 133 12/12/2016 completed Assessments Condition Codes Effective Dates 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-10: D51.0 ICD-9: 281.0 01/12/2017 Chronic pain syndrome ICD-10: G89.4 ICD-9: 338.4 01/12/2017 Cough ICD-10: R05 ICD-9: 786.2 01/12/2017 Acute bronchitis, unspecified ICD-10: J20.9 ICD-9: 466.0 01/12/2017 Encounter for general adult medical examination with abnormal findings ICD-10: Z00.01 ICD-9: V70.0 12/12/2016 Encounter for immunization ICD-10: Z23 ICD-9: V03.89 12/12/2016 Essential (primary) hypertension ICD-10: I10 ICD-9: 401.1 12/08/2016 Elevated blood-pressure reading, without diagnosis of hypertension ICD-10: R03.0 ICD-9: 796.2 04/26/2016 Iron deficiency anemia, unspecified ICD-10: D50.9 ICD-9: 280.9 04/26/2016 Chalazion left upper eyelid ICD-10: H00.14 ICD-9: 373.2 04/26/2016 Noninfective gastroenteritis and colitis, unspecified ICD-10: K52.9 ICD-9: 787.91 04/26/2016 Reason For Visit Reason For Visit Effective Dates Notes blood pressure followup 01/12/2017 Annual Medicare Wellness [...] 33.3 pg 12/13/2016 Cbc With Differential Ord2 [place]% 17.9 % 12/13/2016 Cbc With Differential Ord2 [...] 2.71 K/ul 12/13/2016 Cbc With Differential Ord2 [place] ABS# 1.7 K/ul 12/13/2016 Cbc With Differential Ord2 Eos ABS# 0.3 K/ul 12/13/2016 Cbc With Differential Ord2 Baso ABS# 0.0 K/ul 12/13/2016 Comp Metabolic Lxh917 NA 136 mEq/L 12/13/2016 Comp Metabolic Kkf223 K 4.7 mEq/L 12/13/2016 Comp Metabolic Bmp234 CL 102 mEq/L 12/13/2016 Comp Metabolic Aom678 CO2 26.0 mEq/L 12/13/2016 Comp Metabolic Rvf484 ANION GAP 13 12/13/2016 Comp Metabolic Bon988 GLUCOSE 87 mg/dL 12/13/2016 Comp Metabolic Pke138 Creat 0.9 mg/dL 12/13/2016 Comp Metabolic Vuz177 eGFR 83 ml/min/1.73m2 12/13/2016 Comp Metabolic Qfz803 BUN 17 mg/dL 12/13/2016 Comp Metabolic Ypj744 B/C Ratio 18.3 Ratio 12/13/2016 Comp Metabolic Reo181 CALCIUM 9.1 mg/dL 12/13/2016 Comp Metabolic Pcb477 ALK PHOS 90 U/L 12/13/2016 Comp Metabolic Qqi242 AST(SGOT) 22 U/L 12/13/2016 Comp Metabolic Viq732 ALT(SGPT) 15 U/L 12/13/2016 Comp Metabolic Uqz972 BILI T 0.8 mg/dL 12/13/2016 Comp Metabolic Lbu019 ALBUMIN 3.6 g/dL 12/13/2016 Comp Metabolic Skb272 TPRO 6.4 g/dL 12/13/2016 Comp Metabolic Sgx540 GLOB 2.9 g/dL 12/13/2016 Comp Metabolic Nje282 A/G Ratio 1.2 Ratio 12/13/2016 Comp Metabolic Pup975 Osmo 273 mOsmo 12/13/2016 Lipid Ord30 CHOL 182 mg/dL 12/13/2016 Lipid Ord30 HDL 64.0 mg/dl 12/13/2016 Lipid Ord30 TRIG 62 mg/dL 12/13/2016 Lipid Ord30 LDL 106 mg/dL 12/13/2016 Lipid Ord30 C/HDL 2.8 Ratio 12/13/2016 Ferritin Ord22 FERRITIN 434.7 ng/mL 12/13/2016 B12 Ikn956 B12 247.00 pg/ml 12/13/2016 Tibc Ord40 Iron [...] 33.7 pg 04/27/2016 Cbc With Differential Ord2 [place]% 13.7 % 04/27/2016 Cbc With Differential Ord2 MCHC 33.1 pg 04/27/2016 Cbc With Differential Ord2 Eos% 3.6 % 04/27/2016 Cbc With Differential Ord2 Baso% 0.3 % 04/27/2016 Cbc With Differential Ord2 PLT 295 K/ul 04/27/2016 Cbc With Differential Ord2 RDW 14.4 % 04/27/2016 Cbc With Differential Ord2 Neut ABS# 4.02 K/ul 04/27/2016 Cbc With Differential Ord2 Lymph ABS# 3.22 K/ul 04/27/2016 Cbc With Differential Ord2 [place] ABS# 1.2 K/ul 04/27/2016 Cbc With Differential Ord2 Eos ABS# 0.3 K/ul 04/27/2016 Cbc With Differential Ord2 Baso ABS# 0.0 K/ul 04/27/2016 Comp Metabolic Evq460 NA 138 mEq/L 04/27/2016 Comp Metabolic Lvn999 K 4.3 mEq/L 04/27/2016 Comp Metabolic Jdx859 CL 104 mEq/L 04/27/2016 Comp Metabolic Ydd105 CO2 30.0 mEq/L 04/27/2016 Comp Metabolic Bwj203 ANION GAP 8 04/27/2016 Comp Metabolic Ckr780 GLUCOSE 87 mg/dL 04/27/2016 Comp Metabolic Rdi259 Creat 0.9 mg/dL 04/27/2016 Comp Metabolic Iln117 eGFR 82 ml/min/1.73m2 04/27/2016 Comp Metabolic Gtx874 BUN 13 mg/dL 04/27/2016 Comp Metabolic Xgr995 B/C Ratio 13.8 Ratio 04/27/2016 Comp Metabolic Hoz788 CALCIUM 9.0 mg/dL 04/27/2016 Comp Metabolic Edt892 ALK PHOS 62 U/L 04/27/2016 Comp Metabolic Ruz085 AST(SGOT) 24 U/L 04/27/2016 Comp Metabolic Ezk683 ALT(SGPT) 15 U/L 04/27/2016 Comp Metabolic Cfs179 BILI T 0.7 mg/dL 04/27/2016 Comp Metabolic Gtr588 ALBUMIN 3.6 g/dL 04/27/2016 Comp Metabolic Uij348 TPRO 6.1 g/dL 04/27/2016 Comp Metabolic Xbz493 GLOB 2.5 g/dL 04/27/2016 Comp Metabolic Ywm448 A/G Ratio 1.4 Ratio 04/27/2016 Comp Metabolic Csa519 Osmo 275 mOsmo 04/27/2016 B12 Obe163 B12 >1500.00 pg/ml 04/27/2016 Iron Ord72 Iron 104 ug/dl 04/27/2016 Lipid Ord30 CHOL 178 mg/dL 04/27/2016 Lipid Ord30 HDL 70.0 mg/dl 04/27/2016 Lipid Ord30 TRIG 57 mg/dL 04/27/2016 Lipid Ord30 LDL 97 mg/dL 04/27/2016 Lipid Ord30 C/HDL 2.5 Ratio 04/27/2016 Tsh Ord6 hTSH II 1.89 uIU/mL 04/27/2016 Review of Systems System Result Effective Dates Constitutional recent illness 01/12/2017 Constitutional fever 01/12/2017 [...] right mid abdomen Procedures Procedure Codes Date TRIAMCINOLONE ACET INJ NOS CPT-4: N6521Xyfajyf 01/12/2017 ROCEPHIN, PER 250 MG CPT-4: B3857Yjfxehj 01/12/2017 VITAMIN B12 INJECTION CPT-4: R6314Bztgwel 01/12/2017 THER/PROPH/DIAG INJ SC/IM CPT-4: 53838Ftpsqzc 01/12/2017 PPPS, SUBSEQ VISIT CPT-4: B2973Jyepmat 12/12/2016 PNEUMOCOCCAL VACC [address]: 08880644 CPT-4: 15402Xrosiqh 12/12/2016 ADMIN PNEUMOCOCCAL VACCINE SNOMED CT: 35842285 CPT-4: M4420Lthpdhx 12/12/2016 THER/PROPH/DIAG INJ SC/IM CPT-4: 49214Tacqlsi 10/27/2016 VITAMIN B12 INJECTION CPT-4: G4914Ddxtjvn 10/27/2016 THER/PROPH/DIAG INJ SC/IM CPT-4: 20370Qpznuss 07/27/2016 VITAMIN B12 INJECTION CPT-4: L9582Drvbikc 07/27/2016 THER/PROPH/DIAG INJ SC/IM CPT-4: 05273Ffesmeg 04/26/2016 VITAMIN B12 INJECTION CPT-4: K8167Npindnz 04/26/2016 Vital Signs Date Vital 01/12/2017 Blood Pressure 1: 156/90 Code: 8480-6 BMI: 23.4 Code: 39252-8 Heart Rate 1: 90 bpm Height: 5'7" SpO2: 97% Temperature: 37.4 (C) / 99.3 (F) Weight: 149 lbs 8 oz 12/12/2016 Blood Pressure 1: 140/78 Code: 8480-6 BMI: 24.3 Code: 60136-4 Heart Rate 1: 73 bpm Height: 5'7" SpO2: 96% Waist Measure (cm): 90 cm Weight: 155 lbs 12/08/2016 Blood Pressure 1: 148/84 Code: 8480-6 BMI: 24.3 Code: 63141-1 Heart Rate 1: 80 bpm Height: 5'7" SpO2: 96% Weight: 155 lbs 11/03/2016 Blood Pressure 1: 156/84 Code: 8480-6 Blood Pressure 2: 155/94 Code: 8480-6 BMI: 24.3 Code: 39576-0 Heart Rate 1: 81 bpm Height: 5'7" SpO2: 98% Weight: 155 lbs 10/06/2016 Blood Pressure 1: 175/95 Code: 8480-6 Heart Rate 1: 77 bpm Respiratory Rate: 16 bpm SpO2: 98% Temperature: 36.4 (C) / 97.5 (F) Weight: 157 lbs 09/06/2016 Blood Pressure 1: 136/80 Code: 8480-6 BMI: 24.1 Code: 42963-8 Heart Rate 1: 82 bpm Height: 5'8" SpO2: 97% Weight: 156 lbs 08/23/2016 Blood Pressure 1: 160/80 Code: 8480-6 BMI: 24.4 Code: 03849-4 Heart Rate 1: 88 bpm Height: 5'8" SpO2: 95% Weight: 158 lbs 04/26/2016 Blood Pressure 1: 156/74 Code: 8480-6 BMI: 24.5 Code: 43712-9 Heart Rate 1: 70 bpm Height: 5'8" [...] Encounters Encounter Performer Location Codes Date () 09638 EST. PATIENT, LEVEL III Diagnosis: Cough[ICD10: R05] Diagnosis: Acute bronchitis, unspecified[ICD10: J20.9] Diagnosis: Chronic pain syndrome[ICD10: G89.4] Diagnosis: 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 deficiency[ICD10: D51.0] Ana Paris MD, [facility] CPT-4: 06898 01/12/2017 ([id number]) 30022 EST. PATIENT, LEVEL III Diagnosis: Essential (primary) hypertension[ICD10: I10] Diagnosis: Chronic pain syndrome[ICD10: G89.4] Ana Paris MD, [facility] CPT-4: 21651 12/08/2016 ([id number]) 36676 EST. PATIENT, LEVEL III Diagnosis: Essential (primary) hypertension[ICD10: I10] Ana Paris MD, [facility] CPT-4: 80136 11/03/2016 ([id number]) 36950 EST. PATIENT, LEVEL III Diagnosis: Essential (primary) hypertension[ICD10: I10] Ana Paris MD, [facility] CPT-4: 99648 10/06/2016 ([id number]) 74021 EST. PATIENT, LEVEL III Diagnosis: Essential (primary) hypertension[ICD10: I10] Ana Paris MD, [facility] CPT-4: 44092 09/06/2016 ([id number]) 21505 EST. PATIENT, LEVEL III Diagnosis: Essential (primary) hypertension[ICD10: I10] Ana Paris MD, [facility] CPT-4: 55519 08/23/2016 ([id number]) OFFICE VISIT, NEW - LEVEL 4 Diagnosis: Noninfective gastroenteritis and colitis, unspecified[ICD10: K52.9] Diagnosis: 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 deficiency[ICD10: D51.0] Diagnosis: Iron deficiency anemia, unspecified[ICD10: D50.9] Diagnosis: Chalazion left upper eyelid[ICD10: H00.14] Diagnosis: Elevated blood-pressure reading, without diagnosis of hypertension[ICD10: R03.0] [facility] CPT-4: 01760 04/26/2016 Plan of Care Planned Activity Notes Codes Status Date Visit Plan: Bronchitis - acute case of [...] of over-medication. 01/12/2017 Appointment: Ana Pedra[facility]Ptel[phone] ([facility] min[facility] Complex 01/12/2017 Patient Education: Patient [...] 12/12/2016 Appointment: Ana Pedraza WPtel: [phone] [facility] - Annual Wellness Visit 12/12/2016 [...] 12/08/2016 Appointment: Ana Pedraza WPtel: [phone] (30 min) Complex 12/08/2016 Patient Education: Patient [...] concerns. 11/03/2016 Appointment: Ana Pedraza WPtel: [phone] [phone] (30 min) Complex 11/03/2016 Patient Education: Patient [...] concerns. 10/06/2016 Appointment: Ana Pedraza WPtel: [phone] [phone] (30 min) Complex 10/06/2016 Patient Education: Patient [...] 09/06/2016 Appointment: Ana Pedraza WPtel: [phone] (30 min) Complex 09/06/2016 Patient Education: Patient [...] concerns. 08/23/2016 Appointment: Ana Pedraza WPtel: [phone] [phone] (15 min) Moderate 08/23/2016 Patient Education: Patient [...] for gentamycin. 04/26/2016 [phone] [facility] 04/26/2016 Patient Education: Patient [...] - rx for gentamycin. . Hypertension - uncontrolled - the patient's [...]
--- OUTSIDE RECORDS SUMMARY | 2019-02-13 09:22 | XMS REPORT | CCD ---
Author Author [facility] Organization [facility] Address [address] [place] [address] Phone Care Team Providers Care Comfort Station Supervisor Name Role Phone PP Unavailable CCM Unavailable Summary Purpose Interface Exchange Insurance Providers Payer name Policy type / Coverage type Covered democrat ID Effective Begin Date Effective End Date WPS Medicare Part B Medicare Part B [id number] Unknown Unknown FOR LIFE WPS Medicare Part B [id number] Unknown Unknown Family history Father Diagnosis Age At Onset No Known Diseases N/A Mother Diagnosis Age At Onset No Known Diseases N/A Social History Social History Element Codes Description Effective Dates Marital status Unknown 04/26/2016 Number of children Unknown 3 04/26/2016 Employment Unknown Retired 04/26/[address]: 7708051 Former smoker Quit 1968 04/26/[address]: 555062 Currently drinks alcohol 04/26/2016 Has the patient [...] (vit B-12) 1,000 mcg/mL injection solution RxNorm: 012242 Milliliter(s) Inj 12/27/2018 12/27/2018 Inactive morphine ER 30 mg tablet,extended release RxNorm: 878126 1 Tablet(s) PO daily 12/27/2018 01/25/2019 Active cyanocobalamin (vit B-12) 1,000 mcg/mL injection solution RxNorm: 287700 Milliliter(s) Inj 11/29/2018 11/29/2018 Inactive morphine ER 30 mg tablet,extended release RxNorm: 904767 1 Tablet(s) PO daily 10/29/2018 11/27/2018 Inactive cyanocobalamin (vit B-12) 1,000 mcg/mL injection solution RxNorm: 043088 Milliliter(s) Inj 10/29/2018 10/29/2018 Inactive cyanocobalamin (vit B-12) 1,000 mcg/mL injection solution RxNorm: 225716 Milliliter(s) Inj 09/28/2018 09/28/2018 Inactive morphine ER 30 mg tablet,extended release RxNorm: 454717 1 Tablet(s) PO daily 09/28/2018 10/27/2018 Inactive morphine ER 30 mg tablet,extended release RxNorm: 837543 1 Tablet(s) PO daily 08/30/2018 09/27/2018 Inactive cyanocobalamin (vit B-12) 1,000 mcg/mL injection solution RxNorm: 709555 Milliliter(s) Inj 08/30/2018 08/30/2018 Inactive cyanocobalamin (vit B-12) 1,000 mcg/mL injection solution RxNorm: 069485 Milliliter(s) Inj 07/31/2018 07/31/2018 Inactive morphine ER 30 mg tablet,extended release RxNorm: 040734 1 Tablet(s) PO daily 07/31/2018 08/29/2018 Inactive amlodipine 5 mg tablet RxNorm: 601440 1 Tablet(s) PO QPM 07/11/2018 01/06/2019 Active cyanocobalamin (vit B-12) 1,000 mcg/mL injection solution RxNorm: 684775 1 Milliliter(s) Inj 07/02/2018 07/02/2018 Inactive morphine ER 30 mg tablet,extended release RxNorm: 710803 1 Tablet(s) PO daily 07/02/2018 07/30/2018 Inactive morphine ER 30 mg tablet,extended release RxNorm: 298265 1 Tablet(s) PO daily 05/31/2018 06/29/2018 Inactive cyanocobalamin (vit B-12) 1,000 mcg/mL injection solution RxNorm: 543033 Milliliter(s) Inj 05/31/2018 05/31/2018 Inactive Protonix 40 mg tablet,delayed release RxNorm: 228058 1 Tablet(s) PO daily 05/23/2018 06/21/2018 Inactive Carafate 1 gram tablet RxNorm: 961742 1 Tablet(s) PO AC & HS as needed 05/23/2018 06/21/2018 Inactive cyanocobalamin (vit B-12) 1,000 mcg/mL injection solution RxNorm: 527359 1 Milliliter(s) Inj 05/03/2018 05/03/2018 Inactive morphine ER 30 mg tablet,extended release RxNorm: 878303 1 Tablet(s) PO daily 04/04/2018 05/03/2018 Inactive cyanocobalamin (vit B-12) 1,000 mcg/mL injection solution RxNorm: 123824 1 Milliliter(s) Inj 04/04/2018 04/04/2018 Inactive cyanocobalamin (vit B-12) 1,000 mcg/mL injection solution RxNorm: 026763 1 Milliliter(s) Inj 03/05/2018 03/05/2018 Inactive morphine ER 30 mg tablet,extended release RxNorm: 819640 1 Tablet(s) PO daily 03/05/2018 04/03/2018 Inactive cyanocobalamin (vit B-12) 1,000 mcg/mL injection solution RxNorm: 131257 1 Milliliter(s) Inj 01/30/2018 01/30/2018 Inactive cyanocobalamin (vit B-12) 1,000 mcg/mL injection solution RxNorm: 094797 1 Milliliter(s) Inj 01/01/2018 01/01/2018 Inactive morphine ER 30 mg tablet,extended release RxNorm: 475189 1 Tablet(s) PO daily 01/01/2018 01/30/2018 Inactive lisinopril 20 mg tablet RxNorm: 080730 1 Tablet(s) PO BID 12/18/2017 12/12/2018 Inactive amlodipine 5 mg tablet RxNorm: 223827 1 Tablet(s) PO QPM 12/18/2017 06/15/2018 Inactive cyanocobalamin (vit B-12) 1,000 mcg/mL injection solution RxNorm: 986273 1 Milliliter(s) Inj 11/28/2017 11/28/2017 Inactive morphine ER 30 mg tablet,extended release RxNorm: 241752 1 Tablet(s) PO daily 11/28/2017 12/27/2017 Inactive morphine ER 30 mg tablet,extended release RxNorm: 303423 1 Tablet(s) PO daily 11/09/2017 11/27/2017 Inactive cyanocobalamin (vit B-12) 1,000 mcg/mL injection solution RxNorm: 028598 1 Milliliter(s) Inj 10/24/2017 10/24/2017 Inactive morphine ER 30 mg tablet,extended release RxNorm: 704911 1 Tablet(s) PO daily 10/10/2017 11/08/2017 Inactive hydrochlorothiazide 25 mg tablet RxNorm: 884628 1 Tablet(s) PO daily 10/10/2017 11/08/2017 Inactive cyanocobalamin (vit B-12) 1,000 mcg/mL injection solution RxNorm: 270010 1 Milliliter(s) Inj 09/26/2017 09/26/2017 Inactive hydrochlorothiazide 12.5 mg tablet RxNorm: 117739 1 Tablet(s) PO daily 09/26/2017 10/25/2017 Inactive morphine ER 30 mg tablet,extended release RxNorm: 398369 1 Tablet(s) PO daily 09/12/2017 10/09/2017 Inactive cyanocobalamin (vit B-12) 1,000 mcg/mL injection solution RxNorm: 065089 1 Milliliter(s) Inj 08/10/2017 08/10/2017 Inactive morphine ER 30 mg tablet,extended release RxNorm: 882844 1 Tablet(s) PO daily 08/10/2017 09/08/2017 Inactive Vitamin B-12 1,000 mcg/mL injection solution RxNorm: 959960 1 Milliliter(s) Inj month 07/21/2017 No Stop Date Active B12 INJECTIONS MONTHLY cyanocobalamin (vit B-12) 1,000 mcg/mL injection solution RxNorm: 816855 1 Milliliter(s) Inj 07/18/2017 07/18/2017 Inactive morphine ER 30 mg tablet,extended release RxNorm: 350871 1 Tablet(s) PO daily 07/13/2017 08/09/2017 Inactive morphine ER 30 mg tablet,extended release RxNorm: 885087 1 Tablet(s) PO daily 06/15/2017 07/12/2017 Inactive cyanocobalamin (vit B-12) 1,000 mcg/mL injection solution RxNorm: 742427 1 Milliliter(s) Inj 05/16/2017 05/16/2017 Inactive morphine ER 30 mg tablet,extended release RxNorm: 425089 1 Tablet(s) PO daily 04/13/2017 05/12/2017 Inactive cyanocobalamin (vit B-12) 1,000 mcg/mL injection solution RxNorm: 429357 1 Milliliter(s) Inj 03/14/2017 03/14/2017 Inactive morphine ER 30 mg tablet,extended release RxNorm: 011793 1 Tablet(s) PO daily 03/14/2017 04/12/2017 Inactive morphine ER 30 mg tablet,extended release RxNorm: 583395 1 Tablet(s) PO daily 02/13/2017 03/13/2017 Inactive Kenalog 40 mg/mL suspension for injection RxNorm: 7044393 1 Milliliter(s) Inj 01/12/2017 01/12/2017 Inactive cyanocobalamin (vit B-12) 1,000 mcg/mL injection solution RxNorm: 467187 1 Milliliter(s) Inj 01/12/2017 01/12/2017 Inactive Zithromax Z-[place] 250 mg tablet RxNorm: 661363 1 Tablet(s) PO UD 01/12/2017 01/16/2017 Inactive ceftriaxone 500 mg solution for injection RxNorm: 3316592 1 Milliliter(s) Inj 01/12/2017 01/12/2017 Inactive Vitamin B-12 1,000 mcg/mL injection solution RxNorm: 640979 1 Milliliter(s) Inj EVERY OTHER MONTH 01/04/2017 07/20/2017 Inactive lisinopril 20 mg tablet RxNorm: 739093 1 Tablet(s) PO BID 01/02/2017 12/17/2017 Inactive lisinopril 20 mg tablet RxNorm: 332252 1 Tablet(s) PO BID 12/12/2016 01/01/2017 Inactive morphine ER 30 mg tablet,extended release RxNorm: 524915 1 Tablet(s) PO daily 12/08/2016 01/06/2017 Inactive lisinopril 20 mg tablet RxNorm: 351045 1 Tablet(s) PO BID 11/03/2016 12/11/2016 Inactive morphine ER 30 mg tablet,extended release RxNorm: 915861 1 Tablet(s) PO daily 11/03/2016 12/02/2016 Inactive cyanocobalamin (vit B-12) 1,000 mcg/mL injection solution RxNorm: 587615 1 Milliliter(s) Inj 10/27/2016 10/27/2016 Inactive lisinopril 10 mg tablet RxNorm: 843486 1 Tablet(s) PO BID 10/06/2016 11/02/2016 Inactive lisinopril 10 mg tablet RxNorm: 785680 1 Tablet(s) PO daily 09/06/2016 10/05/2016 Inactive morphine ER 30 mg tablet,extended release RxNorm: 687666 1 Tablet(s) PO daily 08/18/2016 09/16/2016 Inactive cyanocobalamin (vit B-12) 1,000 mcg/mL injection solution RxNorm: 300265 Milliliter(s) Inj 07/27/2016 07/27/2016 Inactive morphine ER 30 mg tablet,extended release RxNorm: 984893 1 Tablet(s) PO daily 07/21/2016 08/17/2016 Inactive morphine ER 30 mg tablet,extended release RxNorm: 991674 1 Tablet(s) PO daily 06/20/2016 07/19/2016 Inactive morphine ER 30 mg tablet,extended release RxNorm: 685622 1 Tablet(s) PO daily 05/20/2016 06/19/2016 Inactive cyanocobalamin (vit B-12) 1,000 mcg/mL injection solution RxNorm: 799551 1 Milliliter(s) Inj 04/26/2016 04/26/2016 Inactive gentamicin 0.3 % eye drops RxNorm: 066587 2 Drop(s) OPH Q4H 04/26/2016 05/02/2016 Inactive Vitamin B-12 1,000 mcg/mL injection solution RxNorm: 059673 1 Milliliter(s) Inj EVERY 3 MONTHS No Start Date 01/03/2017 Inactive Claritin 10 mg tablet RxNorm: 599837 1 Tablet(s) PO daily No Start Date 07/17/2017 Inactive Venofer intravenous RxNorm: 54556 intravenous No Start Date 08/14/2018 Inactive morphine ER 30 mg tablet,extended release RxNorm: 803008 1 Tablet(s) PO daily No Start Date 04/25/2016 Inactive Medication Administered Medication Codes Instructions Start Date Status cyanocobalamin (vit B-12) 1,000 mcg/mL injection solution RxNorm: 381666 Milliliter 12/27/2018 Active cyanocobalamin (vit B-12) 1,000 mcg/mL injection solution RxNorm: 804795 Milliliter 11/29/2018 No longer Active cyanocobalamin (vit B-12) 1,000 mcg/mL injection solution RxNorm: 106270 Milliliter 10/29/2018 No longer Active cyanocobalamin (vit B-12) 1,000 mcg/mL injection solution RxNorm: 766221 Milliliter 09/28/2018 No longer Active cyanocobalamin (vit B-12) 1,000 mcg/mL injection solution RxNorm: 462230 Milliliter 08/30/2018 No longer Active cyanocobalamin (vit B-12) 1,000 mcg/mL injection solution RxNorm: 655797 Milliliter 07/31/2018 No longer Active cyanocobalamin (vit B-12) 1,000 mcg/mL injection solution RxNorm: 885797 1Milliliter 07/02/2018 No longer Active cyanocobalamin (vit B-12) 1,000 mcg/mL injection solution RxNorm: 391987 Milliliter 05/31/2018 No longer Active cyanocobalamin (vit B-12) 1,000 mcg/mL injection solution RxNorm: 673289 1Milliliter 05/03/2018 No longer Active cyanocobalamin (vit B-12) 1,000 mcg/mL injection solution RxNorm: 427751 1Milliliter 04/04/2018 No longer Active cyanocobalamin (vit B-12) 1,000 mcg/mL injection solution RxNorm: 962422 1Milliliter 03/05/2018 No longer Active cyanocobalamin (vit B-12) 1,000 mcg/mL injection solution RxNorm: 365370 1Milliliter 01/30/2018 No longer Active cyanocobalamin (vit B-12) 1,000 mcg/mL injection solution RxNorm: 061246 1Milliliter 01/01/2018 No longer Active cyanocobalamin (vit B-12) 1,000 mcg/mL injection solution RxNorm: 392333 1Milliliter 11/28/2017 No longer Active cyanocobalamin (vit B-12) 1,000 mcg/mL injection solution RxNorm: 320066 1Milliliter 10/24/2017 No longer Active cyanocobalamin (vit B-12) 1,000 mcg/mL injection solution RxNorm: 001606 1Milliliter 09/26/2017 No longer Active cyanocobalamin (vit B-12) 1,000 mcg/mL injection solution RxNorm: 286680 1Milliliter 08/10/2017 No longer Active cyanocobalamin (vit B-12) 1,000 mcg/mL injection solution RxNorm: 595942 1Milliliter 07/18/2017 No longer Active cyanocobalamin (vit B-12) 1,000 mcg/mL injection solution RxNorm: 951052 1Milliliter 05/16/2017 No longer Active cyanocobalamin (vit B-12) 1,000 mcg/mL injection solution RxNorm: 279086 1Milliliter 03/14/2017 No longer Active Kenalog 40 mg/mL suspension for injection RxNorm: 3584677 1Milliliter 01/12/2017 No longer Active ceftriaxone 500 mg solution for injection RxNorm: 3618459 1Milliliter 01/12/2017 No longer Active cyanocobalamin (vit B-12) 1,000 mcg/mL injection solution RxNorm: 444824 1Milliliter 01/12/2017 No longer Active cyanocobalamin (vit B-12) 1,000 mcg/mL injection solution RxNorm: 920070 1Milliliter 10/27/2016 No longer Active cyanocobalamin (vit B-12) 1,000 mcg/mL injection solution RxNorm: 692078 Milliliter 07/27/2016 No longer Active cyanocobalamin (vit B-12) 1,000 mcg/mL injection solution RxNorm: 913859 1Milliliter 04/26/2016 No longer Active Immunizations Vaccine [...] Reason For Visit Effective Dates Notes hypertension 11/19/2018 hypertension 08/15/2018 sore throat 05/23/2018 [...] Code Item Item Code Result Date B12 Xze679 B12 453.00 pg/ml 11/15/2018 Comp Metabolic Uog219 NA 139 mEq/L 11/15/2018 Comp Metabolic Uuh725 K 4.5 mEq/L 11/15/2018 Comp Metabolic Waq300 CL 105 mEq/L 11/15/2018 Comp Metabolic Cju544 CO2 28.0 mEq/L 11/15/2018 Comp Metabolic Skn228 ANION GAP 11 11/15/2018 Comp Metabolic Xhv633 GLUCOSE 96 mg/dL 11/15/2018 Comp Metabolic Roz826 Creat 1.1 mg/dL 11/15/2018 Comp Metabolic Fhk775 eGFR 68 ml/min/1.73m2 11/15/2018 Comp Metabolic Nhd437 BUN 18 mg/dL 11/15/2018 Comp Metabolic Oof243 B/C Ratio 16.5 Ratio 11/15/2018 Comp Metabolic Mqd858 CALCIUM 9.3 mg/dL 11/15/2018 Comp Metabolic Qfk442 ALK PHOS 72 U/L 11/15/2018 Comp Metabolic Beg243 AST(SGOT) 21 U/L 11/15/2018 Comp Metabolic Iem268 ALT(SGPT) 13 U/L 11/15/2018 Comp Metabolic Ycg839 BILI T 0.8 mg/dL 11/15/2018 Comp Metabolic Gdi664 ALBUMIN 3.9 g/dL 11/15/2018 Comp Metabolic Ohp039 TPRO 6.5 g/dL 11/15/2018 Comp Metabolic Sfy737 GLOB 2.6 g/dL 11/15/2018 Comp Metabolic Yqg334 A/G Ratio 1.5 Ratio 11/15/2018 Comp Metabolic Hkp906 Osmo 279 mOsmo 11/15/2018 Tsh Ord6 TSH [...] 33.1 pg 11/15/2018 Cbc With Differential Ord2 [place]% 12.6 % 11/15/2018 Cbc With Differential Ord2 [...] 3.56 K/ul 11/15/2018 Cbc With Differential Ord2 [place] ABS# 1.2 K/ul 11/15/2018 Cbc With Differential [...] 32.9 pg 11/28/2017 Cbc With Differential Ord2 [place]% 12.6 % 11/28/2017 Cbc With Differential Ord2 [...] 2.87 K/ul 11/28/2017 Cbc With Differential Ord2 [place] ABS# 1.1 K/ul 11/28/2017 Cbc With Differential Ord2 Eos ABS# 0.3 K/ul 11/28/2017 Cbc With Differential Ord2 Baso ABS# 0.0 K/ul 11/28/2017 B12 Pda224 B12 >1500.00 pg/ml 11/28/2017 Comp Metabolic Ywa144 NA 139 mEq/L 11/28/2017 Comp Metabolic Lfq090 K 5.2 mEq/L 11/28/2017 Comp Metabolic Epz648 CL 106 mEq/L 11/28/2017 Comp Metabolic Rxd916 CO2 28.0 mEq/L 11/28/2017 Comp Metabolic Alf244 ANION GAP 10 11/28/2017 Comp Metabolic Yse545 GLUCOSE 89 mg/dL 11/28/2017 Comp Metabolic Wgk077 Creat 1.1 mg/dL 11/28/2017 Comp Metabolic Ipj503 eGFR 66 ml/min/1.73m2 11/28/2017 Comp Metabolic Etf522 BUN 18 mg/dL 11/28/2017 Comp Metabolic Pst722 B/C Ratio 16.1 Ratio 11/28/2017 Comp Metabolic Feq408 CALCIUM 9.2 mg/dL 11/28/2017 Comp Metabolic Hir088 ALK PHOS 89 U/L 11/28/2017 Comp Metabolic Yie831 AST(SGOT) 22 U/L 11/28/2017 Comp Metabolic Ksa639 ALT(SGPT) 15 U/L 11/28/2017 Comp Metabolic Klm970 BILI T 0.6 mg/dL 11/28/2017 Comp Metabolic Jui196 ALBUMIN 3.9 g/dL 11/28/2017 Comp Metabolic Mwn559 TPRO 6.5 g/dL 11/28/2017 Comp Metabolic Gkq896 GLOB 2.6 g/dL 11/28/2017 Comp Metabolic Umy893 A/G Ratio 1.5 Ratio 11/28/2017 Comp Metabolic Iiw530 Osmo 279 mOsmo 11/28/2017 Ferritin Ord22 FERRITIN [...] 33.7 pg 07/18/2017 Cbc With Differential Ord2 [place]% 12.3 % 07/18/2017 Cbc With Differential Ord2 [...] 2.90 K/ul 07/18/2017 Cbc With Differential Ord2 [place] ABS# 1.1 K/ul 07/18/2017 Cbc With Differential Ord2 Eos ABS# 0.2 K/ul 07/18/2017 Cbc With Differential Ord2 Baso ABS# 0.0 K/ul 07/18/2017 Comp Metabolic Nek644 NA 140 mEq/L 07/18/2017 Comp Metabolic Poa652 K 4.6 mEq/L 07/18/2017 Comp Metabolic Wym896 CL 105 mEq/L 07/18/2017 Comp Metabolic Eja037 CO2 29.0 mEq/L 07/18/2017 Comp Metabolic Yyq235 ANION GAP 11 07/18/2017 Comp Metabolic Ajp033 GLUCOSE 96 mg/dL 07/18/2017 Comp Metabolic Aoq967 Creat 1.0 mg/dL 07/18/2017 Comp Metabolic Cik304 eGFR 73 ml/min/1.73m2 07/18/2017 Comp Metabolic Qpk475 BUN 12 mg/dL 07/18/2017 Comp Metabolic Jhq029 B/C Ratio 11.7 Ratio 07/18/2017 Comp Metabolic Jcf329 CALCIUM 9.2 mg/dL 07/18/2017 Comp Metabolic Nmg184 ALK PHOS 74 U/L 07/18/2017 Comp Metabolic Hxx710 AST(SGOT) 29 U/L 07/18/2017 Comp Metabolic Egw732 ALT(SGPT) 16 U/L 07/18/2017 Comp Metabolic Euo764 BILI T 0.7 mg/dL 07/18/2017 Comp Metabolic Nem209 ALBUMIN 3.7 g/dL 07/18/2017 Comp Metabolic Qkf130 TPRO 6.5 g/dL 07/18/2017 Comp Metabolic Qbb738 GLOB 2.8 g/dL 07/18/2017 Comp Metabolic Swj973 A/G Ratio 1.3 Ratio 07/18/2017 Comp Metabolic Cpm923 Osmo 279 mOsmo 07/18/2017 Iron Ord72 Iron 114 ug/dl 07/18/2017 B12 Ayh258 B12 233.00 pg/ml 07/18/2017 Tsh Ord6 hTSH [...] 33.3 pg 12/13/2016 Cbc With Differential Ord2 [place]% 17.9 % 12/13/2016 Cbc With Differential Ord2 [...] 2.71 K/ul 12/13/2016 Cbc With Differential Ord2 [place] ABS# 1.7 K/ul 12/13/2016 Cbc With Differential Ord2 Eos ABS# 0.3 K/ul 12/13/2016 Cbc With Differential Ord2 Baso ABS# 0.0 K/ul 12/13/2016 Comp Metabolic Mjo931 NA 136 mEq/L 12/13/2016 Comp Metabolic Qfa399 K 4.7 mEq/L 12/13/2016 Comp Metabolic Fek670 CL 102 mEq/L 12/13/2016 Comp Metabolic Tps996 CO2 26.0 mEq/L 12/13/2016 Comp Metabolic Yhm587 ANION GAP 13 12/13/2016 Comp Metabolic Ari875 GLUCOSE 87 mg/dL 12/13/2016 Comp Metabolic Rdt507 Creat 0.9 mg/dL 12/13/2016 Comp Metabolic Aem439 eGFR 83 ml/min/1.73m2 12/13/2016 Comp Metabolic Utd199 BUN 17 mg/dL 12/13/2016 Comp Metabolic Pea772 B/C Ratio 18.3 Ratio 12/13/2016 Comp Metabolic Rov529 CALCIUM 9.1 mg/dL 12/13/2016 Comp Metabolic Qnw513 ALK PHOS 90 U/L 12/13/2016 Comp Metabolic Ugw294 AST(SGOT) 22 U/L 12/13/2016 Comp Metabolic Drx779 ALT(SGPT) 15 U/L 12/13/2016 Comp Metabolic Xtr571 BILI T 0.8 mg/dL 12/13/2016 Comp Metabolic Jhi980 ALBUMIN 3.6 g/dL 12/13/2016 Comp Metabolic Gpn881 TPRO 6.4 g/dL 12/13/2016 Comp Metabolic Mkt240 GLOB 2.9 g/dL 12/13/2016 Comp Metabolic Sdo104 A/G Ratio 1.2 Ratio 12/13/2016 Comp Metabolic Ira058 Osmo 273 mOsmo 12/13/2016 Lipid Ord30 CHOL 182 mg/dL 12/13/2016 Lipid Ord30 HDL 64.0 mg/dl 12/13/2016 Lipid Ord30 TRIG 62 mg/dL 12/13/2016 Lipid Ord30 LDL 106 mg/dL 12/13/2016 Lipid Ord30 C/HDL 2.8 Ratio 12/13/2016 Ferritin Ord22 FERRITIN 434.7 ng/mL 12/13/2016 B12 Mws067 B12 247.00 pg/ml 12/13/2016 Tibc Ord40 Iron [...] 33.7 pg 04/27/2016 Cbc With Differential Ord2 [place]% 13.7 % 04/27/2016 Cbc With Differential Ord2 [...] 3.22 K/ul 04/27/2016 Cbc With Differential Ord2 [place] ABS# 1.2 K/ul 04/27/2016 Cbc With Differential Ord2 Eos ABS# 0.3 K/ul 04/27/2016 Cbc With Differential Ord2 Baso ABS# 0.0 K/ul 04/27/2016 Comp Metabolic Lzs078 NA 138 mEq/L 04/27/2016 Comp Metabolic Iiq331 K 4.3 mEq/L 04/27/2016 Comp Metabolic Nmp675 CL 104 mEq/L 04/27/2016 Comp Metabolic Ynt284 CO2 30.0 mEq/L 04/27/2016 Comp Metabolic Jbl966 ANION GAP 8 04/27/2016 Comp Metabolic Cev494 GLUCOSE 87 mg/dL 04/27/2016 Comp Metabolic Nnv063 Creat 0.9 mg/dL 04/27/2016 Comp Metabolic Qna158 eGFR 82 ml/min/1.73m2 04/27/2016 Comp Metabolic Xuz288 BUN 13 mg/dL 04/27/2016 Comp Metabolic Psc187 B/C Ratio 13.8 Ratio 04/27/2016 Comp Metabolic Luw851 CALCIUM 9.0 mg/dL 04/27/2016 Comp Metabolic Rmt609 ALK PHOS 62 U/L 04/27/2016 Comp Metabolic Krt041 AST(SGOT) 24 U/L 04/27/2016 Comp Metabolic Rcd054 ALT(SGPT) 15 U/L 04/27/2016 Comp Metabolic Tin237 BILI T 0.7 mg/dL 04/27/2016 Comp Metabolic Oma584 ALBUMIN 3.6 g/dL 04/27/2016 Comp Metabolic Ubz594 TPRO 6.1 g/dL 04/27/2016 Comp Metabolic Xao947 GLOB 2.5 g/dL 04/27/2016 Comp Metabolic Aza719 A/G Ratio 1.4 Ratio 04/27/2016 Comp Metabolic Afn571 Osmo 275 mOsmo 04/27/2016 B12 Yjz471 B12 >1500.00 pg/ml 04/27/2016 Iron Ord72 Iron 104 ug/dl 04/27/2016 Lipid Ord30 CHOL 178 mg/dL 04/27/2016 Lipid Ord30 HDL 70.0 mg/dl 04/27/2016 Lipid Ord30 TRIG 57 mg/dL 04/27/2016 Lipid Ord30 LDL 97 mg/dL 04/27/2016 Lipid Ord30 C/HDL 2.5 Ratio 04/27/2016 Tsh Ord6 hTSH II 1.89 uIU/mL 04/27/2016 Review of Systems System Result Effective Dates Constitutional No recent illness 11/19/2018 Constitutional No [...] General 1994 Eyes conjunctiva/eyelids Overall: cornea clear 10/10/2017 None Full Exam - General 1994 Eyes conjunctiva/eyelids Overall: eyelids normal 10/10/2017 None Full Exam - General 1994 Eyes pupils and irises Overall: pupils equal, round, reactive to light and accomodation 10/10/2017 None Full Exam - General 1994 Ears/Nose/Throat lips/teeth/gingiva Overall: benign lips 10/10/2017 None Full Exam - General 1994 [...] 1995 Ears/Nose/Throat oral cavity/pharynx/larynx Overall: hypopharynx benign 11/03/2016 [...] lips 09/06/2016 None Full Exam - General 1995 Ears/Nose/Throat lips/teeth/gingiva Overall: normal dentition 09/06/2016 None [...] Procedure Codes Date THER/PROPH/DIAG INJ SC/IM CPT-4: 55001 12/27/2018 VITAMIN B12 INJECTION CPT- 4: J3420 12/27/2018 THER/PROPH/DIAG INJ SC/IM CPT-4: 04417 11/29/2018 VITAMIN B12 INJECTION CPT- 4: J3420 11/29/2018 THER/PROPH/DIAG INJ SC/IM CPT-4: 92975 10/29/2018 VITAMIN B12 INJECTION CPT- 4: J3420 10/29/2018 THER/PROPH/DIAG INJ SC/IM CPT-4: 58492 09/28/2018 VITAMIN B12 INJECTION CPT- 4: J3420 09/28/2018 THER/PROPH/DIAG INJ SC/IM CPT-4: 11324 08/30/2018 VITAMIN B12 INJECTION CPT- 4: J3420 08/30/2018 VITAMIN B12 INJECTION CPT- 4: J3420 07/31/2018 THER/PROPH/DIAG INJ SC/IM CPT-4: 34187 07/31/2018 THER/PROPH/DIAG INJ SC/IM CPT-4: 80634 07/02/2018 VITAMIN B12 INJECTION CPT- 4: J3420 07/02/2018 THER/PROPH/DIAG INJ SC/IM CPT-4: 92346 05/31/2018 ADMIN INFLUENZA VIRUS VAC CPT-4: G0008 05/31/2018 VITAMIN B12 INJECTION CPT- 4: J3420 05/31/2018 FLU VACC PRSV FREE INC ANTIG Formatting Model/CDA Sections, Assigned to/Mary Grace Rosado CPT-4: 52850Iaegvae 05/31/2018 VITAMIN B12 INJECTION CPT- 4: J3420 05/03/2018 THER/PROPH/DIAG INJ SC/IM CPT-4: 66639 05/03/2018 THER/PROPH/DIAG INJ SC/IM CPT-4: 74697 04/04/2018 VITAMIN B12 INJECTION CPT- 4: J3420 04/04/2018 THER/PROPH/DIAG INJ SC/IM CPT-4: 21552 03/05/2018 VITAMIN B12 INJECTION CPT- 4: J3420 03/05/2018 VITAMIN B12 INJECTION CPT- 4: J3420 01/30/2018 THER/PROPH/DIAG INJ SC/IM CPT-4: 57805 01/30/2018 THER/PROPH/DIAG INJ SC/IM CPT-4: 24948 01/01/2018 VITAMIN B12 INJECTION CPT- 4: J3420 01/01/2018 PPPS, SUBSEQ VISIT CPT- 4: G0439 12/18/2017 THER/PROPH/DIAG INJ SC/IM CPT-4: 88189 11/28/2017 VITAMIN B12 INJECTION CPT- 4: J3420 11/28/2017 THER/PROPH/DIAG INJ SC/IM CPT-4: 06470 10/24/2017 VITAMIN B12 INJECTION CPT- 4: J3420 10/24/2017 THER/PROPH/DIAG INJ SC/IM CPT-4: 70311 09/26/2017 VITAMIN B12 INJECTION CPT- 4: J3420 09/26/2017 THER/PROPH/DIAG INJ SC/IM CPT-4: 12311 08/10/2017 VITAMIN B12 INJECTION CPT- 4: J3420 08/10/2017 THER/PROPH/DIAG INJ SC/IM CPT-4: 11732 07/18/2017 VITAMIN B12 INJECTION CPT- 4: J3420 07/18/2017 THER/PROPH/DIAG INJ SC/IM CPT-4: 59635 05/16/2017 VITAMIN B12 INJECTION CPT- 4: J3420 05/16/2017 THER/PROPH/DIAG INJ SC/IM CPT-4: 46042 03/14/2017 VITAMIN B12 INJECTION CPT- 4: J3420 03/14/2017 TRIAMCINOLONE ACET INJ NOS CPT-4: J3301 01/12/2017 ROCEPHIN, PER 250 MG CPT- 4: J0696 01/12/2017 VITAMIN B12 INJECTION CPT- 4: J3420 01/12/2017 THER/PROPH/DIAG INJ SC/IM CPT-4: 35947 01/12/2017 PPPS, SUBSEQ VISIT CPT- 4: G0439 12/12/2016 PNEUMOCOCCAL VACC [address]: 64928291 CPT-4: 17570 12/12/2016 ADMIN PNEUMOCOCCAL VACCINE SNOMED CT: 44014504 CPT-4: G0009 12/12/2016 THER/PROPH/DIAG INJ SC/IM CPT-4: 84003 10/27/2016 VITAMIN B12 INJECTION CPT- 4: J3420 10/27/2016 THER/PROPH/DIAG INJ SC/IM CPT-4: 76489 07/27/2016 VITAMIN B12 INJECTION CPT- 4: J3420 07/27/2016 THER/PROPH/DIAG INJ SC/IM CPT-4: 87336 04/26/2016 VITAMIN B12 INJECTION CPT- 4: J3420 04/26/2016 Vital Signs Date Vital 11/19/2018 Blood Pressure 1: 128/76 Code: 8480-6 BMI: 25.8 Code: 41319-9 Heart Rate 1: 76 bpm Height: 5'7" SpO2: 98% Weight: 165 lbs 08/15/2018 Blood Pressure 1: 144/66 Code: 8480-6 BMI: 25.1 Code: 90246-1 Heart Rate 1: 75 bpm Height: 5'7" SpO2: 98% Weight: 160 lbs 05/23/2018 Blood Pressure 1: 158/64 Code: 8480-6 BMI: 24.7 Code: 57145-4 Heart Rate 1: 76 bpm Height: 5'7" SpO2: 96% Temperature: 36.7 (C) / 98.1 (F) Weight: 158 lbs 05/03/2018 Blood Pressure 1: 122/72 Code: 8480-6 BMI: 25.1 Code: 94886-7 Heart Rate 1: 74 bpm Height: 5'7" SpO2: 97% Weight: 160 lbs 01/31/2018 Blood Pressure 1: 137/77 Code: 8480-6 Blood Pressure 2: 138/68 Code: 8480-6 Heart Rate 1: 67 bpm SpO2: 98% 01/30/2018 Blood Pressure 1: 138/66 Code: 8480-6 BMI: 25.1 Code: 12376-5 Heart Rate 1: 76 bpm Height: 5'7" SpO2: 94% Weight: 160 lbs 12/18/2017 Blood Pressure 1: 152/88 Code: 8480-6 BMI: 25.8 Code: 14825-1 Heart Rate 1: 68 bpm Height: 5'7" SpO2: 96% Weight: 165 lbs 11/28/2017 Blood Pressure 1: 150/76 Code: 8480-6 BMI: 25.2 Code: 73156-1 Heart Rate 1: 78 bpm Height: 5'7" SpO2: 98% Weight: 161 lbs 10/10/2017 Blood Pressure 1: 156/76 Code: 8480-6 BMI: 24.7 Code: 39112-3 Heart Rate 1: 71 bpm Height: 5'7" SpO2: 98% Weight: 158 lbs 09/26/2017 Blood Pressure 1: 162/82 Code: 8480-6 BMI: 24.7 Code: 36849-4 Heart Rate 1: 69 bpm Height: 5'7" SpO2: 99% Weight: 158 lbs 08/16/2017 Blood Pressure 1: 154/82 Code: 8480-6 BMI: 24.1 Code: 17654-8 Heart Rate 1: 58 bpm Height: 5'7" SpO2: 96% Weight: 154 lbs 07/18/2017 Blood Pressure 1: 152/88 Code: 8480-6 BMI: 25.2 Code: 23478-7 Heart Rate 1: 72 bpm Height: 5'7" SpO2: 98% Weight: 161 lbs 05/16/2017 Blood Pressure 1: 136/78 Code: 8480-6 BMI: 24.8 Code: 77698-7 Heart Rate 1: 71 bpm Height: 5'7" SpO2: 96% Weight: 158 lbs 8 oz 03/14/2017 Blood Pressure 1: 142/74 Code: 8480-6 BMI: 23.8 Code: 89230-6 Heart Rate 1: 69 bpm Height: 5'7" SpO2: 94% Weight: 152 lbs 01/12/2017 Blood Pressure 1: 156/90 Code: 8480-6 BMI: 23.4 Code: 32717-5 Heart Rate 1: 90 bpm Height: 5'7" SpO2: 97% Temperature: 37.4 (C) / 99.3 (F) Weight: 149 lbs 8 oz 12/12/2016 Blood Pressure 1: 140/78 Code: 8480-6 BMI: 24.3 Code: 06988-4 Heart Rate 1: 73 bpm Height: 5'7" SpO2: 96% Waist Measure (cm): 90 cm Weight: 155 lbs 12/08/2016 Blood Pressure 1: 148/84 Code: 8480-6 BMI: 24.3 Code: 09440-7 Heart Rate 1: 80 bpm Height: 5'7" SpO2: 96% Weight: 155 lbs 11/03/2016 Blood Pressure 1: 156/84 Code: 8480-6 Blood Pressure 2: 155/94 Code: 8480-6 BMI: 24.3 Code: 34133-3 Heart Rate 1: 81 bpm Height: 5'7" SpO2: 98% Weight: 155 lbs 10/06/2016 Blood Pressure 1: 175/95 Code: 8480-6 Heart Rate 1: 77 bpm Respiratory Rate: 16 bpm SpO2: 98% Temperature: 36.4 (C) / 97.5 (F) Weight: 157 lbs 09/06/2016 Blood Pressure 1: 136/80 Code: 8480-6 BMI: 24.1 Code: 32850-2 Heart Rate 1: 82 bpm Height: 5'8" SpO2: 97% Weight: 156 lbs 08/23/2016 Blood Pressure 1: 160/80 Code: 8480-6 BMI: 24.4 Code: 16124-0 Heart Rate 1: 88 bpm Height: 5'8" SpO2: 95% Weight: 158 lbs 04/26/2016 Blood Pressure 1: 156/74 Code: 8480-6 BMI: 24.5 Code: 47937-7 Heart Rate 1: 70 bpm Height: 5'8" SpO2: 97% Weight: 159 lbs Functional Status No Functional Status data History of Present Illness Symptom Name Status Result Effective Date Notes Quality chronic 11/19/2018 None Quality intermittent 11/19/2018 [...] data Encounters Encounter Performer Location Codes Date ([id number]) [id number] EST. PATIENT, LEVEL IV Diagnosis: Essential (primary) hypertension[ICD10: I10] Diagnosis: Chronic pain syndrome[ICD10: G89.4] Diagnosis: Epigastric pain[ICD10: R10.13] Andree Paris MD, [facility] CPT-4: 19786 11/19/2018 ([id number]) 53039 EST. PATIENT, LEVEL III Diagnosis: Essential (primary) hypertension[ICD10: I10] Andree Paris MD, [facility] CPT-4: 44386 08/15/2018 [id number] EST. PATIENT, LEVEL III Diagnosis: Dysphagia, pharyngoesophageal phase[ICD10: R13.14] Teresa Paris MD, [facility] CPT-4: 04318 05/23/2018 ([id number] 32054 EST. PATIENT, LEVEL IV Diagnosis: Essential (primary) hypertension[ICD10: I10] Diagnosis: Chronic pain syndrome[ICD10: G89.4] Diagnosis: 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 deficiency[ICD10: D51.0] Diagnosis: Other iron deficiency anemias[ICD10: D50.8] Diagnosis: Slow transit constipation[ICD10: K59.01] Andree Paris MD, [facility] CPT-4: 45086 05/03/2018 ([id number]) Miscellaneous no charge Diagnosis: Essential (primary) hypertension[ICD10: I10] Teresa Paris MD, [facility] CPT-4: 50321 01/31/2018 ([id number]) 74704 EST. PATIENT, LEVEL IV Diagnosis: Essential (primary) hypertension[ICD10: I10] Diagnosis: Chronic pain syndrome[ICD10: G89.4] Andree Paris MD, [facility] CPT- 4: 76120 01/30/2018 ([id number]) 30268 EST. PATIENT, LEVEL IV Diagnosis: Essential (primary) hypertension[ICD10: I10] Diagnosis: Chronic pain syndrome[ICD10: G89.4] Diagnosis: 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 deficiency[ICD10: D51.0] Diagnosis: Iron deficiency anemia, unspecified[ICD10: D50.9] Ana Paris MD, [facility] CPT-4: 04817 11/28/2017 [id number] EST. PATIENT, LEVEL IV Diagnosis: Essential (primary) hypertension[ICD10: I10] Diagnosis: Slow transit constipation[ICD10: K59.01] Diagnosis: Chronic pain syndrome[ICD10: G89.4] Teresa Paris MD, [facility] CPT- 4: 51546 10/10/2017 05659 EST. PATIENT, LEVEL IV Diagnosis: 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 deficiency[ICD10: D51.0] Diagnosis: Essential (primary) hypertension[ICD10: I10] Diagnosis: Chronic pain syndrome[ICD10: G89.4] Teresa Paris MD, [facility] CPT- 4: 10491 09/26/2017 78594 EST. PATIENT, LEVEL III Diagnosis: Dysphagia, pharyngoesophageal phase[ICD10: R13.14] Teresa Paris MD, [facility] CPT-4: 01647 08/16/2017 ([id number]) 15500 EST. PATIENT, LEVEL IV Diagnosis: Essential (primary) hypertension[ICD10: I10] Diagnosis: Chronic pain syndrome[ICD10: G89.4] Diagnosis: 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 deficiency[ICD10: D51.0] Diagnosis: Iron deficiency anemia, unspecified[ICD10: D50.9] Diagnosis: Dysphagia, pharyngoesophageal phase[ICD10: R13.14] Ana Paris MD, [facility] CPT-4: 08103 07/18/2017 ([id number]) 23706 EST. PATIENT, LEVEL III Diagnosis: Essential (primary) hypertension[ICD10: I10] Diagnosis: Chronic pain syndrome[ICD10: G89.4] Diagnosis: 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 deficiency[ICD10: D51.0] Ana Paris MD, [facility] CPT-4: 03754 05/16/2017 ([id number]) 77618 EST. PATIENT, LEVEL III Diagnosis: Essential (primary) hypertension[ICD10: I10] Diagnosis: Chronic pain syndrome[ICD10: G89.4] Diagnosis: 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 deficiency[ICD10: D51.0] Ana Paris MD, [facility] CPT-4: 27086 03/14/2017 ([id number]) 56756 EST. PATIENT, LEVEL III Diagnosis: Cough[ICD10: R05] Diagnosis: Acute bronchitis, unspecified[ICD10: J20.9] Diagnosis: Chronic pain syndrome[ICD10: G89.4] Diagnosis: 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 deficiency[ICD10: D51.0] Ana Paris MD, [facility] CPT-4: 30248 01/12/2017 ([id number]) 80563 EST. PATIENT, LEVEL III Diagnosis: Essential (primary) hypertension[ICD10: I10] Diagnosis: Chronic pain syndrome[ICD10: G89.4] Ana Paris MD, [facility] CPT-4: 15933 12/08/2016 ([id number]) 51322 EST. PATIENT, LEVEL III Diagnosis: Essential (primary) hypertension[ICD10: I10] Ana Paris MD, [facility] CPT-4: 46178 11/03/2016 ([id number]) 21092 EST. PATIENT, LEVEL III Diagnosis: Essential (primary) hypertension[ICD10: I10] Ana Paris MD, [facility] CPT-4: 87870 10/06/2016 ([id number]) 87038 EST. PATIENT, LEVEL III Diagnosis: Essential (primary) hypertension[ICD10: I10] Ana Paris MD, [facility] CPT-4: 98032 09/06/2016 ([id number]) 94654 EST. PATIENT, LEVEL III Diagnosis: Essential (primary) hypertension[ICD10: I10] [facility] CPT-4: 47471 08/23/2016 ([id number]) OFFICE VISIT, NEW - LEVEL 4 Diagnosis: Noninfective gastroenteritis and colitis, unspecified[ICD10: K52.9] Diagnosis: 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 deficiency[ICD10: D51.0] Diagnosis: Iron deficiency anemia, unspecified[ICD10: D50.9] Diagnosis: Chalazion left upper eyelid[ICD10: H00.14] Diagnosis: Elevated blood-pressure reading, without diagnosis of hypertension[ICD10: R03.0] [facility] CPT-4: 47079 04/26/2016 Plan of Care Planned Activity Notes Codes Status Date Patient Education: Patient Medication Summary Completed 12/27/2018 [...] of over-medication. 11/19/2018 Appointment: Andree Paris WPtel: [address] [place], [place] [phone] (15 min) Moderate 11/19/2018 Patient Education: Patient [...] amlodipine 08/15/2018 Appointment: [phone] [place] ([place] min) Moderate 08/15/2018 Patient Education: Patient [...] plan. 05/23/2018 Appointment: Teresa Bardales WPtel: [phone] [facility] (15 min) Moderate 05/23/2018 Patient Education: Patient [...] management. 05/03/2018 Appointment: [phone] [place] (15 min) Moderate 05/03/2018 Patient Education: Patient [...] over-medication. 01/30/2018 Appointment: [phone] [place] (15 min) Moderate 01/30/2018 Patient Education: Patient [...] concerns. 12/18/2017 Appointment: Ana Pedraza WPtel: [phone] [place] [phone] [facility] - Annual Wellness Visit 12/18/2017 [...] labs 11/28/2017 Appointment: Ana Pedraza WPtel: [phone] [phone] (30 min) Complex 11/28/2017 Patient Education: Patient [...] this regimen. 10/10/2017 Appointment: Teresa Bardales WPtel: [facility]5 [facility] (30 min) Complex 10/10/2017 Patient Education: Patient [...] of over-medication. 09/26/2017 Appointment: Teresa Bardales WPtel: [facility]5 [facility] (30 min) Complex 09/26/2017 Patient Education: Patient Medication Summary Completed 09/26/2017 Appointment: Teresa Bardales WPtel: [facility]5 [facility] (30 min) Complex 09/19/2017 Referral: External, Ordering Provider Referral Appointment Confirmed 08/17/2017 Visit Plan: Dysphagia - worsening since yesterday - will refer to Dr. Harper for possible EGD - pt is to notify clinic if symptoms do not improve, if they worsen, or with any acute changes, questions, or concerns. 08/16/2017 Appointment: [phone] (30 min) Complex 08/16/2017 Patient Education: Patient Medication Summary Completed 08/16/2017 Care Plan: Referral Order SNOMED-CT : [id number] Pending 08/16/2017 Appointment: Injection 08/10/2017 Patient Education: [...] first 07/18/2017 Appointment: Ana Pedraza WPtel: [phone] [phone] (30 min) Complex 07/18/2017 Patient [...] of over-medication. 05/16/2017 Appointment: [facility] Pedraza [facility]el[phone] (30 min) Complex 05/16/2017 Patient Education: Patient [...] Appointment: Ana Pedraza WPtel: [facility] (30 min) Complex 03/14/2017 Patient Education: [...] of over-medication. 01/12/2017 Appointment: Ana Pedraza WPtel: [phone] (30 min) Complex 01/12/2017 Patient Education: [...] Appointment: Ana Pedraza WPtel: [facility] - Annual Wellness Visit 12/12/2016 Patient [...] of over-medication. 12/08/2016 Appointment: Ana Pedraza WPtel: [address] [place], [place] [phone] (30 min) Complex 12/08/2016 Patient Education: Patient [...] acute concerns. 11/03/2016 Appointment: Ana Pedraza WPtel: [facility]8 [phone] [place] [address] (30 min) Complex 11/03/2016 Patient Education: Patient [...] acute concerns. 10/06/2016 Appointment: Ana Pedraza WPtel: [facility]9 [phone] (30 min) Complex 10/06/2016 Patient Education: [...] Appointment: Ana Pedraza WPtel: [facility]1 [phone] (30 min) Complex 09/06/2016 Patient Education: [...] acute concerns. 08/23/2016 Appointment: Ana Pedraza WPtel: [phone] [phone] (15 min) Moderate 08/23/2016 Patient Education: [...] gentamycin. 04/26/2016 Appointment: [facility] Paris [phone] [place] New Patient 04/26/2016 Patient Education: Patient Medication [...]
--- OUTSIDE RECORDS SUMMARY | 2019-02-13 09:25 | XMS REPORT | CCD ---
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 Name Role Phone PP Unavailable CCM Unavailable Summary Purpose Interface Exchange Insurance Providers Payer name Policy type / Coverage type Covered green party ID Effective Begin Date Effective End Date WPS Medicare Part B Medicare Part B [id number] Unknown Unknown FOR LIFE WPS Medicare Part B [id number] Unknown Unknown Family history Father Diagnosis Age At Onset No Known Diseases N/A Mother Diagnosis Age At Onset No Known Diseases N/A Social History Social History Element Codes Description Effective Dates Marital status Unknown 04/26/2016 Number of children Unknown 3 04/26/2016 Employment Unknown Retired 04/26/[address]: 2127429 Former smoker Quit 1968 04/26/[address]: 028842 Currently drinks alcohol 04/26/2016 Has the patient [...] morphine ER 30 mg tablet,extended release RxNorm: 938691 1 Tablet(s) PO daily 12/27/2018 01/25/2019 Active cyanocobalamin (vit B-12) 1,000 mcg/mL injection solution RxNorm: 913244 Milliliter(s) Inj 11/29/2018 11/29/2018 Inactive morphine ER 30 mg tablet,extended release RxNorm: 083494 1 Tablet(s) PO daily 10/29/2018 11/27/2018 Inactive cyanocobalamin (vit B-12) 1,000 mcg/mL injection solution RxNorm: 648038 Milliliter(s) Inj 10/29/2018 10/29/2018 Inactive cyanocobalamin (vit B-12) 1,000 mcg/mL injection solution RxNorm: 829162 Milliliter(s) Inj 09/28/2018 09/28/2018 Inactive morphine ER 30 mg tablet,extended release RxNorm: 083056 1 Tablet(s) PO daily 09/28/2018 10/27/2018 Inactive morphine ER 30 mg tablet,extended release RxNorm: 676411 1 Tablet(s) PO daily 08/30/2018 09/27/2018 Inactive cyanocobalamin (vit B-12) 1,000 mcg/mL injection solution RxNorm: 834051 Milliliter(s) Inj 08/30/2018 08/30/2018 Inactive cyanocobalamin (vit B-12) 1,000 mcg/mL injection solution RxNorm: 150794 Milliliter(s) Inj 07/31/2018 07/31/2018 Inactive morphine ER 30 mg tablet,extended release RxNorm: 959704 1 Tablet(s) PO daily 07/31/2018 08/29/2018 Inactive amlodipine 5 mg tablet RxNorm: 554891 1 Tablet(s) PO QPM 07/11/2018 01/06/2019 Active cyanocobalamin (vit B-12) 1,000 mcg/mL injection solution RxNorm: 055396 1 Milliliter(s) Inj 07/02/2018 07/02/2018 Inactive morphine ER 30 mg tablet,extended release RxNorm: 757264 1 Tablet(s) PO daily 07/02/2018 07/30/2018 Inactive morphine ER 30 mg tablet,extended release RxNorm: 959022 1 Tablet(s) PO daily 05/31/2018 06/29/2018 Inactive cyanocobalamin (vit B-12) 1,000 mcg/mL injection solution RxNorm: 234993 Milliliter(s) Inj 05/31/2018 05/31/2018 Inactive Protonix 40 mg tablet,delayed release RxNorm: 397042 1 Tablet(s) PO daily 05/23/2018 06/21/2018 Inactive Carafate 1 gram tablet RxNorm: 711109 1 Tablet(s) PO AC & HS as needed 05/23/2018 06/21/2018 Inactive cyanocobalamin (vit B-12) 1,000 mcg/mL injection solution RxNorm: 231313 1 Milliliter(s) Inj 05/03/2018 05/03/2018 Inactive morphine ER 30 mg tablet,extended release RxNorm: 579427 1 Tablet(s) PO daily 04/04/2018 05/03/2018 Inactive cyanocobalamin (vit B-12) 1,000 mcg/mL injection solution RxNorm: 545326 1 Milliliter(s) Inj 04/04/2018 04/04/2018 Inactive cyanocobalamin (vit B-12) 1,000 mcg/mL injection solution RxNorm: 420455 1 Milliliter(s) Inj 03/05/2018 03/05/2018 Inactive morphine ER 30 mg tablet,extended release RxNorm: 871178 1 Tablet(s) PO daily 03/05/2018 04/03/2018 Inactive cyanocobalamin (vit B-12) 1,000 mcg/mL injection solution RxNorm: 675674 1 Milliliter(s) Inj 01/30/2018 01/30/2018 Inactive cyanocobalamin (vit B-12) 1,000 mcg/mL injection solution RxNorm: 464989 1 Milliliter(s) Inj 01/01/2018 01/01/2018 Inactive morphine ER 30 mg tablet,extended release RxNorm: 292331 1 Tablet(s) PO daily 01/01/2018 01/30/2018 Inactive lisinopril 20 mg tablet RxNorm: 666991 1 Tablet(s) PO BID 12/18/2017 12/12/2018 Inactive amlodipine 5 mg tablet RxNorm: 612371 1 Tablet(s) PO QPM 12/18/2017 06/15/2018 Inactive cyanocobalamin (vit B-12) 1,000 mcg/mL injection solution RxNorm: 708904 1 Milliliter(s) Inj 11/28/2017 11/28/2017 Inactive morphine ER 30 mg tablet,extended release RxNorm: 795758 1 Tablet(s) PO daily 11/28/2017 12/27/2017 Inactive morphine ER 30 mg tablet,extended release RxNorm: 150218 1 Tablet(s) PO daily 11/09/2017 11/27/2017 Inactive cyanocobalamin (vit B-12) 1,000 mcg/mL injection solution RxNorm: 305341 1 Milliliter(s) Inj 10/24/2017 10/24/2017 Inactive morphine ER 30 mg tablet,extended release RxNorm: 920083 1 Tablet(s) PO daily 10/10/2017 11/08/2017 Inactive hydrochlorothiazide 25 mg tablet RxNorm: 535782 1 Tablet(s) PO daily 10/10/2017 11/08/2017 Inactive cyanocobalamin (vit B-12) 1,000 mcg/mL injection solution RxNorm: 650894 1 Milliliter(s) Inj 09/26/2017 09/26/2017 Inactive hydrochlorothiazide 12.5 mg tablet RxNorm: 575892 1 Tablet(s) PO daily 09/26/2017 10/25/2017 Inactive morphine ER 30 mg tablet,extended release RxNorm: 227402 1 Tablet(s) PO daily 09/12/2017 10/09/2017 Inactive cyanocobalamin (vit B-12) 1,000 mcg/mL injection solution RxNorm: 261371 1 Milliliter(s) Inj 08/10/2017 08/10/2017 Inactive morphine ER 30 mg tablet,extended release RxNorm: 113670 1 Tablet(s) PO daily 08/10/2017 09/08/2017 Inactive Vitamin B-12 1,000 mcg/mL injection solution RxNorm: 847771 1 Milliliter(s) Inj month 07/21/2017 No Stop Date Active B12 INJECTIONS MONTHLY cyanocobalamin (vit B-12) 1,000 mcg/mL injection solution RxNorm: 471957 1 Milliliter(s) Inj 07/18/2017 07/18/2017 Inactive morphine ER 30 mg tablet,extended release RxNorm: 550913 1 Tablet(s) PO daily 07/13/2017 08/09/2017 Inactive morphine ER 30 mg tablet,extended release RxNorm: 946321 1 Tablet(s) PO daily 06/15/2017 07/12/2017 Inactive cyanocobalamin (vit B-12) 1,000 mcg/mL injection solution RxNorm: 074560 1 Milliliter(s) Inj 05/16/2017 05/16/2017 Inactive morphine ER 30 mg tablet,extended release RxNorm: 212924 1 Tablet(s) PO daily 04/13/2017 05/12/2017 Inactive cyanocobalamin (vit B-12) 1,000 mcg/mL injection solution RxNorm: 840467 1 Milliliter(s) Inj 03/14/2017 03/14/2017 Inactive morphine ER 30 mg tablet,extended release RxNorm: 830521 1 Tablet(s) PO daily 03/14/2017 04/12/2017 Inactive morphine ER 30 mg tablet,extended release RxNorm: 457590 1 Tablet(s) PO daily 02/13/2017 03/13/2017 Inactive Kenalog 40 mg/mL suspension for injection RxNorm: 7980569 1 Milliliter(s) Inj 01/12/2017 01/12/2017 Inactive cyanocobalamin (vit B-12) 1,000 mcg/mL injection solution RxNorm: 083788 1 Milliliter(s) Inj 01/12/2017 01/12/2017 Inactive Zithromax Z-[place] 250 mg tablet RxNorm: 792255 1 Tablet(s) PO UD 01/12/2017 01/16/2017 Inactive ceftriaxone 500 mg solution for injection RxNorm: 6292219 1 Milliliter(s) Inj 01/12/2017 01/12/2017 Inactive Vitamin B-12 1,000 mcg/mL injection solution RxNorm: 271103 1 Milliliter(s) Inj EVERY OTHER MONTH 01/04/2017 07/20/2017 Inactive lisinopril 20 mg tablet RxNorm: 656176 1 Tablet(s) PO BID 01/02/2017 12/17/2017 Inactive lisinopril 20 mg tablet RxNorm: 711025 1 Tablet(s) PO BID 12/12/2016 01/01/2017 Inactive morphine ER 30 mg tablet,extended release RxNorm: 388657 1 Tablet(s) PO daily 12/08/2016 01/06/2017 Inactive lisinopril 20 mg tablet RxNorm: 666312 1 Tablet(s) PO BID 11/03/2016 12/11/2016 Inactive morphine ER 30 mg tablet,extended release RxNorm: 104062 1 Tablet(s) PO daily 11/03/2016 12/02/2016 Inactive cyanocobalamin (vit B-12) 1,000 mcg/mL injection solution RxNorm: 860570 1 Milliliter(s) Inj 10/27/2016 10/27/2016 Inactive lisinopril 10 mg tablet RxNorm: 102331 1 Tablet(s) PO BID 10/06/2016 11/02/2016 Inactive lisinopril 10 mg tablet RxNorm: 908990 1 Tablet(s) PO daily 09/06/2016 10/05/2016 Inactive morphine ER 30 mg tablet,extended release RxNorm: 173098 1 Tablet(s) PO daily 08/18/2016 09/16/2016 Inactive cyanocobalamin (vit B-12) 1,000 mcg/mL injection solution RxNorm: 632341 Milliliter(s) Inj 07/27/2016 07/27/2016 Inactive morphine ER 30 mg tablet,extended release RxNorm: 525051 1 Tablet(s) PO daily 07/21/2016 08/17/2016 Inactive morphine ER 30 mg tablet,extended release RxNorm: 834347 1 Tablet(s) PO daily 06/20/2016 07/19/2016 Inactive morphine ER 30 mg tablet,extended release RxNorm: 387185 1 Tablet(s) PO daily 05/20/2016 06/19/2016 Inactive cyanocobalamin (vit B-12) 1,000 mcg/mL injection solution RxNorm: 338225 1 Milliliter(s) Inj 04/26/2016 04/26/2016 Inactive gentamicin 0.3 % eye drops RxNorm: 762125 2 Drop(s) OPH Q4H 04/26/2016 05/02/2016 Inactive Vitamin B-12 1,000 mcg/mL injection solution RxNorm: 782332 1 Milliliter(s) Inj EVERY 3 MONTHS No Start Date 01/03/2017 Inactive Claritin 10 mg tablet RxNorm: 720025 1 Tablet(s) PO daily No Start Date 07/17/2017 Inactive Venofer intravenous RxNorm: 34671 intravenous No Start Date 08/14/2018 Inactive morphine ER 30 mg tablet,extended release RxNorm: 579155 1 Tablet(s) PO daily No Start Date 04/25/2016 Inactive Medication Administered Medication Codes Instructions Start Date Status cyanocobalamin (vit B-12) 1,000 mcg/mL injection solution RxNorm: 679407 Milliliter 11/29/2018 No longer Active cyanocobalamin (vit B-12) 1,000 mcg/mL injection solution RxNorm: 522886 Milliliter 10/29/2018 No longer Active cyanocobalamin (vit B-12) 1,000 mcg/mL injection solution RxNorm: 646618 Milliliter 09/28/2018 No longer Active cyanocobalamin (vit B-12) 1,000 mcg/mL injection solution RxNorm: 349534 Milliliter 08/30/2018 No longer Active cyanocobalamin (vit B-12) 1,000 mcg/mL injection solution RxNorm: 386256 Milliliter 07/31/2018 No longer Active cyanocobalamin (vit B-12) 1,000 mcg/mL injection solution RxNorm: 628773 1Milliliter 07/02/2018 No longer Active cyanocobalamin (vit B-12) 1,000 mcg/mL injection solution RxNorm: 710809 Milliliter 05/31/2018 No longer Active cyanocobalamin (vit B-12) 1,000 mcg/mL injection solution RxNorm: 734659 1Milliliter 05/03/2018 No longer Active cyanocobalamin (vit B-12) 1,000 mcg/mL injection solution RxNorm: 934047 1Milliliter 04/04/2018 No longer Active cyanocobalamin (vit B-12) 1,000 mcg/mL injection solution RxNorm: 751739 1Milliliter 03/05/2018 No longer Active cyanocobalamin (vit B-12) 1,000 mcg/mL injection solution RxNorm: 892955 1Milliliter 01/30/2018 No longer Active cyanocobalamin (vit B-12) 1,000 mcg/mL injection solution RxNorm: 205242 1Milliliter 01/01/2018 No longer Active cyanocobalamin (vit B-12) 1,000 mcg/mL injection solution RxNorm: 376304 1Milliliter 11/28/2017 No longer Active cyanocobalamin (vit B-12) 1,000 mcg/mL injection solution RxNorm: 709600 1Milliliter 10/24/2017 No longer Active cyanocobalamin (vit B-12) 1,000 mcg/mL injection solution RxNorm: 977301 1Milliliter 09/26/2017 No longer Active cyanocobalamin (vit B-12) 1,000 mcg/mL injection solution RxNorm: 331168 1Milliliter 08/10/2017 No longer Active cyanocobalamin (vit B-12) 1,000 mcg/mL injection solution RxNorm: 704243 1Milliliter 07/18/2017 No longer Active cyanocobalamin (vit B-12) 1,000 mcg/mL injection solution RxNorm: 635170 1Milliliter 05/16/2017 No longer Active cyanocobalamin (vit B-12) 1,000 mcg/mL injection solution RxNorm: 313364 1Milliliter 03/14/2017 No longer Active Kenalog 40 mg/mL suspension for injection RxNorm: 7096460 1Milliliter 01/12/2017 No longer Active ceftriaxone 500 mg solution for injection RxNorm: 7300476 1Milliliter 01/12/2017 No longer Active cyanocobalamin (vit B-12) 1,000 mcg/mL injection solution RxNorm: 476320 1Milliliter 01/12/2017 No longer Active cyanocobalamin (vit B-12) 1,000 mcg/mL injection solution RxNorm: 045127 1Milliliter 10/27/2016 No longer Active cyanocobalamin (vit B-12) 1,000 mcg/mL injection solution RxNorm: 081866 Milliliter 07/27/2016 No longer Active cyanocobalamin (vit B-12) 1,000 mcg/mL injection solution RxNorm: 231236 1Milliliter 04/26/2016 No longer Active Immunizations Vaccine Codes Date Status Influenza CVX: 141 05/31/2018 completed Pneumococcal (Adult) CVX: 133 12/12/2016 completed Assessments Condition Codes Effective Dates 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-10: D51.0 ICD-9: 281.0 11/29/2018 Essential (primary) hypertension ICD-10: I10 ICD-9: 401.1 [...] Code Item Item Code Result Date B12 Bvf671 B12 453.00 pg/ml 11/15/2018 Comp Metabolic Bzx529 NA 139 mEq/L 11/15/2018 Comp Metabolic Fhl545 K 4.5 mEq/L 11/15/2018 Comp Metabolic Gxr734 CL 105 mEq/L 11/15/2018 Comp Metabolic Kgo996 CO2 28.0 mEq/L 11/15/2018 Comp Metabolic Evg699 ANION GAP 11 11/15/2018 Comp Metabolic Wps772 GLUCOSE 96 mg/dL 11/15/2018 Comp Metabolic Qfv413 Creat 1.1 mg/dL 11/15/2018 Comp Metabolic Pqz218 eGFR 68 ml/min/1.73m2 11/15/2018 Comp Metabolic Alq931 BUN 18 mg/dL 11/15/2018 Comp Metabolic Fps051 B/C Ratio 16.5 Ratio 11/15/2018 Comp Metabolic Zoi393 CALCIUM 9.3 mg/dL 11/15/2018 Comp Metabolic Hqs442 ALK PHOS 72 U/L 11/15/2018 Comp Metabolic Hta655 AST(SGOT) 21 U/L 11/15/2018 Comp Metabolic Vwx174 ALT(SGPT) 13 U/L 11/15/2018 Comp Metabolic Bpy511 BILI T 0.8 mg/dL 11/15/2018 Comp Metabolic Fio480 ALBUMIN 3.9 g/dL 11/15/2018 Comp Metabolic Jxx345 TPRO 6.5 g/dL 11/15/2018 Comp Metabolic Ofk513 GLOB 2.6 g/dL 11/15/2018 Comp Metabolic Viq570 A/G Ratio 1.5 Ratio 11/15/2018 Comp Metabolic Qdk131 Osmo 279 mOsmo 11/15/2018 Tsh Ord6 TSH [...] 33.1 pg 11/15/2018 Cbc With Differential Ord2 [place]% 12.6 % 11/15/2018 Cbc With Differential Ord2 [...] 3.56 K/ul 11/15/2018 Cbc With Differential Ord2 [place] ABS# 1.2 K/ul 11/15/2018 Cbc With Differential [...] 32.9 pg 11/28/2017 Cbc With Differential Ord2 [place]% 12.6 % 11/28/2017 Cbc With Differential Ord2 [...] 2.87 K/ul 11/28/2017 Cbc With Differential Ord2 [place] ABS# 1.1 K/ul 11/28/2017 Cbc With Differential Ord2 Eos ABS# 0.3 K/ul 11/28/2017 Cbc With Differential Ord2 Baso ABS# 0.0 K/ul 11/28/2017 B12 Ags236 B12 >1500.00 pg/ml 11/28/2017 Comp Metabolic Xle679 NA 139 mEq/L 11/28/2017 Comp Metabolic Qif274 K 5.2 mEq/L 11/28/2017 Comp Metabolic Irh808 CL 106 mEq/L 11/28/2017 Comp Metabolic Grh957 CO2 28.0 mEq/L 11/28/2017 Comp Metabolic Adb697 ANION GAP 10 11/28/2017 Comp Metabolic Bel205 GLUCOSE 89 mg/dL 11/28/2017 Comp Metabolic Lbz569 Creat 1.1 mg/dL 11/28/2017 Comp Metabolic Lgt917 eGFR 66 ml/min/1.73m2 11/28/2017 Comp Metabolic Xlz242 BUN 18 mg/dL 11/28/2017 Comp Metabolic Lni825 B/C Ratio 16.1 Ratio 11/28/2017 Comp Metabolic Brr257 CALCIUM 9.2 mg/dL 11/28/2017 Comp Metabolic Sdg761 ALK PHOS 89 U/L 11/28/2017 Comp Metabolic Auk191 AST(SGOT) 22 U/L 11/28/2017 Comp Metabolic Akk019 ALT(SGPT) 15 U/L 11/28/2017 Comp Metabolic Tse004 BILI T 0.6 mg/dL 11/28/2017 Comp Metabolic Qxh671 ALBUMIN 3.9 g/dL 11/28/2017 Comp Metabolic Oic285 TPRO 6.5 g/dL 11/28/2017 Comp Metabolic Eah490 GLOB 2.6 g/dL 11/28/2017 Comp Metabolic Int949 A/G Ratio 1.5 Ratio 11/28/2017 Comp Metabolic Sox361 Osmo 279 mOsmo 11/28/2017 Ferritin Ord22 FERRITIN [...] 33.7 pg 07/18/2017 Cbc With Differential Ord2 [place]% 12.3 % 07/18/2017 Cbc With Differential Ord2 [...] 2.90 K/ul 07/18/2017 Cbc With Differential Ord2 [place] ABS# 1.1 K/ul 07/18/2017 Cbc With Differential Ord2 Eos ABS# 0.2 K/ul 07/18/2017 Cbc With Differential Ord2 Baso ABS# 0.0 K/ul 07/18/2017 Comp Metabolic Bav741 NA 140 mEq/L 07/18/2017 Comp Metabolic Xrj979 K 4.6 mEq/L 07/18/2017 Comp Metabolic Pao993 CL 105 mEq/L 07/18/2017 Comp Metabolic Nee087 CO2 29.0 mEq/L 07/18/2017 Comp Metabolic Bzt568 ANION GAP 11 07/18/2017 Comp Metabolic Avi761 GLUCOSE 96 mg/dL 07/18/2017 Comp Metabolic Ggl001 Creat 1.0 mg/dL 07/18/2017 Comp Metabolic Uut912 eGFR 73 ml/min/1.73m2 07/18/2017 Comp Metabolic Qvl304 BUN 12 mg/dL 07/18/2017 Comp Metabolic Fin653 B/C Ratio 11.7 Ratio 07/18/2017 Comp Metabolic Xoz963 CALCIUM 9.2 mg/dL 07/18/2017 Comp Metabolic Uwj964 ALK PHOS 74 U/L 07/18/2017 Comp Metabolic Ofi447 AST(SGOT) 29 U/L 07/18/2017 Comp Metabolic Cip033 ALT(SGPT) 16 U/L 07/18/2017 Comp Metabolic Oai339 BILI T 0.7 mg/dL 07/18/2017 Comp Metabolic Kzq030 ALBUMIN 3.7 g/dL 07/18/2017 Comp Metabolic Rxu204 TPRO 6.5 g/dL 07/18/2017 Comp Metabolic Bze693 GLOB 2.8 g/dL 07/18/2017 Comp Metabolic Btd193 A/G Ratio 1.3 Ratio 07/18/2017 Comp Metabolic Qip201 Osmo 279 mOsmo 07/18/2017 Iron Ord72 Iron 114 ug/dl 07/18/2017 B12 Jsg249 B12 233.00 pg/ml 07/18/2017 Tsh Ord6 hTSH [...] 33.3 pg 12/13/2016 Cbc With Differential Ord2 [place]% 17.9 % 12/13/2016 Cbc With Differential Ord2 [...] 2.71 K/ul 12/13/2016 Cbc With Differential Ord2 [place] ABS# 1.7 K/ul 12/13/2016 Cbc With Differential Ord2 Eos ABS# 0.3 K/ul 12/13/2016 Cbc With Differential Ord2 Baso ABS# 0.0 K/ul 12/13/2016 Comp Metabolic Wmx334 NA 136 mEq/L 12/13/2016 Comp Metabolic Hqr601 K 4.7 mEq/L 12/13/2016 Comp Metabolic Oqz541 CL 102 mEq/L 12/13/2016 Comp Metabolic Lmk303 CO2 26.0 mEq/L 12/13/2016 Comp Metabolic Khc042 ANION GAP 13 12/13/2016 Comp Metabolic Iyi884 GLUCOSE 87 mg/dL 12/13/2016 Comp Metabolic Snv969 Creat 0.9 mg/dL 12/13/2016 Comp Metabolic Sjx162 eGFR 83 ml/min/1.73m2 12/13/2016 Comp Metabolic Oeb798 BUN 17 mg/dL 12/13/2016 Comp Metabolic Dqp908 B/C Ratio 18.3 Ratio 12/13/2016 Comp Metabolic Jrn005 CALCIUM 9.1 mg/dL 12/13/2016 Comp Metabolic Uwf937 ALK PHOS 90 U/L 12/13/2016 Comp Metabolic Nms341 AST(SGOT) 22 U/L 12/13/2016 Comp Metabolic Snq743 ALT(SGPT) 15 U/L 12/13/2016 Comp Metabolic Hxm266 BILI T 0.8 mg/dL 12/13/2016 Comp Metabolic Unh833 ALBUMIN 3.6 g/dL 12/13/2016 Comp Metabolic Aci050 TPRO 6.4 g/dL 12/13/2016 Comp Metabolic Fhe922 GLOB 2.9 g/dL 12/13/2016 Comp Metabolic Yyf007 A/G Ratio 1.2 Ratio 12/13/2016 Comp Metabolic Nxq015 Osmo 273 mOsmo 12/13/2016 Lipid Ord30 CHOL 182 mg/dL 12/13/2016 Lipid Ord30 HDL 64.0 mg/dl 12/13/2016 Lipid Ord30 TRIG 62 mg/dL 12/13/2016 Lipid Ord30 LDL 106 mg/dL 12/13/2016 Lipid Ord30 C/HDL 2.8 Ratio 12/13/2016 Ferritin Ord22 FERRITIN 434.7 ng/mL 12/13/2016 B12 Syw127 B12 247.00 pg/ml 12/13/2016 Tibc Ord40 Iron [...] 33.7 pg 04/27/2016 Cbc With Differential Ord2 [place]% 13.7 % 04/27/2016 Cbc With Differential Ord2 [...] 3.22 K/ul 04/27/2016 Cbc With Differential Ord2 [place] ABS# 1.2 K/ul 04/27/2016 Cbc With Differential Ord2 Eos ABS# 0.3 K/ul 04/27/2016 Cbc With Differential Ord2 Baso ABS# 0.0 K/ul 04/27/2016 Comp Metabolic Azp446 NA 138 mEq/L 04/27/2016 Comp Metabolic Jtq958 K 4.3 mEq/L 04/27/2016 Comp Metabolic Ylv896 CL 104 mEq/L 04/27/2016 Comp Metabolic Nok742 CO2 30.0 mEq/L 04/27/2016 Comp Metabolic Nak574 ANION GAP 8 04/27/2016 Comp Metabolic Jul191 GLUCOSE 87 mg/dL 04/27/2016 Comp Metabolic Yrf122 Creat 0.9 mg/dL 04/27/2016 Comp Metabolic Jui186 eGFR 82 ml/min/1.73m2 04/27/2016 Comp Metabolic Gjh656 BUN 13 mg/dL 04/27/2016 Comp Metabolic Knn659 B/C Ratio 13.8 Ratio 04/27/2016 Comp Metabolic Ggb149 CALCIUM 9.0 mg/dL 04/27/2016 Comp Metabolic Lha673 ALK PHOS 62 U/L 04/27/2016 Comp Metabolic Yxr436 AST(SGOT) 24 U/L 04/27/2016 Comp Metabolic Jbn901 ALT(SGPT) 15 U/L 04/27/2016 Comp Metabolic Lxh709 BILI T 0.7 mg/dL 04/27/2016 Comp Metabolic Fnd088 ALBUMIN 3.6 g/dL 04/27/2016 Comp Metabolic Ztu512 TPRO 6.1 g/dL 04/27/2016 Comp Metabolic Aif195 GLOB 2.5 g/dL 04/27/2016 Comp Metabolic Vcp842 A/G Ratio 1.4 Ratio 04/27/2016 Comp Metabolic Xcf383 Osmo 275 mOsmo 04/27/2016 B12 Axc966 B12 >1500.00 pg/ml 04/27/2016 Iron Ord72 Iron [...] Procedure Codes Date THER/PROPH/DIAG INJ SC/IM CPT-4: 24635 11/29/2018 VITAMIN B12 INJECTION CPT- 4: J3420 11/29/2018 THER/PROPH/DIAG INJ SC/IM CPT-4: 40166 10/29/2018 VITAMIN B12 INJECTION CPT- 4: J3420 10/29/2018 THER/PROPH/DIAG INJ SC/IM CPT-4: 14233 09/28/2018 VITAMIN B12 INJECTION CPT- 4: J3420 09/28/2018 THER/PROPH/DIAG INJ SC/IM CPT-4: 27262 08/30/2018 VITAMIN B12 INJECTION CPT- 4: J3420 08/30/2018 VITAMIN B12 INJECTION CPT- 4: J3420 07/31/2018 THER/PROPH/DIAG INJ SC/IM CPT-4: 28529 07/31/2018 THER/PROPH/DIAG INJ SC/IM CPT-4: 64022 07/02/2018 VITAMIN B12 INJECTION CPT- 4: J3420 07/02/2018 THER/PROPH/DIAG INJ SC/IM CPT-4: 50586 05/31/2018 ADMIN INFLUENZA VIRUS VAC CPT-4: G0008 05/31/2018 VITAMIN B12 INJECTION CPT- 4: J3420 05/31/2018 FLU VACC PRSV FREE INC ANTIG Formatting Model/CDA Sections, Assigned to/Mary Grace Rosado CPT-4: [id number] 05/31/2018 VITAMIN B12 INJECTION CPT- 4: J3420 05/03/2018 THER/PROPH/DIAG INJ SC/IM CPT-4: 88652 05/03/2018 THER/PROPH/DIAG INJ SC/IM CPT-4: 03377 04/04/2018 VITAMIN B12 INJECTION CPT- 4: J3420 04/04/2018 THER/PROPH/DIAG INJ SC/IM CPT-4: 37139 03/05/2018 VITAMIN B12 INJECTION CPT- 4: J3420 03/05/2018 VITAMIN B12 INJECTION CPT- 4: J3420 01/30/2018 THER/PROPH/DIAG INJ SC/IM CPT-4: 29078 01/30/2018 THER/PROPH/DIAG INJ SC/IM CPT-4: 36577 01/01/2018 VITAMIN B12 INJECTION CPT- 4: J3420 01/01/2018 PPPS, SUBSEQ VISIT CPT- 4: G0439 12/18/2017 THER/PROPH/DIAG INJ SC/IM CPT-4: 08296 11/28/2017 VITAMIN B12 INJECTION CPT- 4: J3420 11/28/2017 THER/PROPH/DIAG INJ SC/IM CPT-4: 20018 10/24/2017 VITAMIN B12 INJECTION CPT- 4: J3420 10/24/2017 THER/PROPH/DIAG INJ SC/IM CPT-4: 22056 09/26/2017 VITAMIN B12 INJECTION CPT- 4: J3420 09/26/2017 THER/PROPH/DIAG INJ SC/IM CPT-4: 40104 08/10/2017 VITAMIN B12 INJECTION CPT- 4: J3420 08/10/2017 THER/PROPH/DIAG INJ SC/IM CPT-4: 36708 07/18/2017 VITAMIN B12 INJECTION CPT- 4: J3420 07/18/2017 THER/PROPH/DIAG INJ SC/IM CPT-4: 22344 05/16/2017 VITAMIN B12 INJECTION CPT- 4: J3420 05/16/2017 THER/PROPH/DIAG INJ SC/IM CPT-4: 15204 03/14/2017 VITAMIN B12 INJECTION CPT- 4: J3420 03/14/2017 TRIAMCINOLONE ACET INJ NOS CPT-4: J3301 01/12/2017 ROCEPHIN, PER 250 MG CPT- 4: J0696 01/12/2017 VITAMIN B12 INJECTION CPT- 4: J3420 01/12/2017 THER/PROPH/DIAG INJ SC/IM CPT-4: 35148 01/12/2017 PPPS, SUBSEQ VISIT CPT- 4: G0439 12/12/2016 PNEUMOCOCCAL VACC [address]: 75978092 CPT-4: 15123 12/12/2016 ADMIN PNEUMOCOCCAL VACCINE SNOMED CT: 20315661 CPT-4: G0009 12/12/2016 THER/PROPH/DIAG INJ SC/IM CPT-4: 16346 10/27/2016 VITAMIN B12 INJECTION CPT- 4: J3420 10/27/2016 THER/PROPH/DIAG INJ SC/IM CPT-4: 31676 07/27/2016 VITAMIN B12 INJECTION CPT- 4: J3420 07/27/2016 THER/PROPH/DIAG INJ SC/IM CPT-4: 88615 04/26/2016 VITAMIN B12 INJECTION CPT- 4: J3420 04/26/2016 Vital Signs Date Vital 11/19/2018 Blood Pressure 1: 128/76 Code: 8480-6 BMI: 25.8 Code: 64626-0 Heart Rate 1: 76 bpm Height: 5'7" SpO2: 98% Weight: 165 lbs 08/15/2018 Blood Pressure 1: 144/66 Code: 8480-6 BMI: 25.1 Code: 37684-1 Heart Rate 1: 75 bpm Height: 5'7" SpO2: 98% Weight: 160 lbs 05/23/2018 Blood Pressure 1: 158/64 Code: 8480-6 BMI: 24.7 Code: 41341-8 Heart Rate 1: 76 bpm Height: 5'7" SpO2: 96% Temperature: 36.7 (C) / 98.1 (F) Weight: 158 lbs 05/03/2018 Blood Pressure 1: 122/72 Code: 8480-6 BMI: 25.1 Code: 14905-6 Heart Rate 1: 74 bpm Height: 5'7" SpO2: 97% Weight: 160 lbs 01/31/2018 Blood Pressure 1: 137/77 Code: 8480-6 Blood Pressure 2: 138/68 Code: 8480-6 Heart Rate 1: 67 bpm SpO2: 98% 01/30/2018 Blood Pressure 1: 138/66 Code: 8480-6 BMI: 25.1 Code: 68774-0 Heart Rate 1: 76 bpm Height: 5'7" SpO2: 94% Weight: 160 lbs 12/18/2017 Blood Pressure 1: 152/88 Code: 8480-6 BMI: 25.8 Code: 84526-8 Heart Rate 1: 68 bpm Height: 5'7" SpO2: 96% Weight: 165 lbs 11/28/2017 Blood Pressure 1: 150/76 Code: 8480-6 BMI: 25.2 Code: 84311-0 Heart Rate 1: 78 bpm Height: 5'7" SpO2: 98% Weight: 161 lbs 10/10/2017 Blood Pressure 1: 156/76 Code: 8480-6 BMI: 24.7 Code: 72069-3 Heart Rate 1: 71 bpm Height: 5'7" SpO2: 98% Weight: 158 lbs 09/26/2017 Blood Pressure 1: 162/82 Code: 8480-6 BMI: 24.7 Code: 96628-3 Heart Rate 1: 69 bpm Height: 5'7" SpO2: 99% Weight: 158 lbs 08/16/2017 Blood Pressure 1: 154/82 Code: 8480-6 BMI: 24.1 Code: 74396-2 Heart Rate 1: 58 bpm Height: 5'7" SpO2: 96% Weight: 154 lbs 07/18/2017 Blood Pressure 1: 152/88 Code: 8480-6 BMI: 25.2 Code: 50608-5 Heart Rate 1: 72 bpm Height: 5'7" SpO2: 98% Weight: 161 lbs 05/16/2017 Blood Pressure 1: 136/78 Code: 8480-6 BMI: 24.8 Code: 83220-9 Heart Rate 1: 71 bpm Height: 5'7" SpO2: 96% Weight: 158 lbs 8 oz 03/14/2017 Blood Pressure 1: 142/74 Code: 8480-6 BMI: 23.8 Code: 67562-3 Heart Rate 1: 69 bpm Height: 5'7" SpO2: 94% Weight: 152 lbs 01/12/2017 Blood Pressure 1: 156/90 Code: 8480-6 BMI: 23.4 Code: 19419-8 Heart Rate 1: 90 bpm Height: 5'7" SpO2: 97% Temperature: 37.4 (C) / 99.3 (F) Weight: 149 lbs 8 oz 12/12/2016 Blood Pressure 1: 140/78 Code: 8480-6 BMI: 24.3 Code: 01027-6 Heart Rate 1: 73 bpm Height: 5'7" SpO2: 96% Waist Measure (cm): 90 cm Weight: 155 lbs 12/08/2016 Blood Pressure 1: 148/84 Code: 8480-6 BMI: 24.3 Code: 38740-4 Heart Rate 1: 80 bpm Height: 5'7" SpO2: 96% Weight: 155 lbs 11/03/2016 Blood Pressure 1: 156/84 Code: 8480-6 Blood Pressure 2: 155/94 Code: 8480-6 BMI: 24.3 Code: 76180-3 Heart Rate 1: 81 bpm Height: 5'7" SpO2: 98% Weight: 155 lbs 10/06/2016 Blood Pressure 1: 175/95 Code: 8480-6 Heart Rate 1: 77 bpm Respiratory Rate: 16 bpm SpO2: 98% Temperature: 36.4 (C) / 97.5 (F) Weight: 157 lbs 09/06/2016 Blood Pressure 1: 136/80 Code: 8480-6 BMI: 24.1 Code: 12086-6 Heart Rate 1: 82 bpm Height: 5'8" SpO2: 97% Weight: 156 lbs 08/23/2016 Blood Pressure 1: 160/80 Code: 8480-6 BMI: 24.4 Code: 68550-6 Heart Rate 1: 88 bpm Height: 5'8" SpO2: 95% Weight: 158 lbs 04/26/2016 Blood Pressure 1: 156/74 Code: 8480-6 BMI: 24.5 Code: 62473-8 Heart Rate 1: 70 bpm Height: 5'8" [...] data Encounters Encounter Performer Location Codes Date ([id number]) 06104 EST. PATIENT, LEVEL IV Diagnosis: Essential (primary) hypertension[ICD10: I10] Diagnosis: Chronic pain syndrome[ICD10: G89.4] Diagnosis: Epigastric pain[ICD10: R10.13] Andree Paris MD, [facility] CPT-4: 45351 11/19/2018 ([id number]) 60074 EST. PATIENT, LEVEL III Diagnosis: Essential (primary) hypertension[ICD10: I10] Andree Paris MD, [facility] CPT-4: 59286 08/15/2018 07019 EST. PATIENT, LEVEL III Diagnosis: Dysphagia, pharyngoesophageal phase[ICD10: R13.14] Teresa Paris MD, [facility] CPT-4: 50225 05/23/2018 [id number]) 66008 EST. PATIENT, LEVEL IV Diagnosis: Essential (primary) hypertension[ICD10: I10] Diagnosis: Chronic pain syndrome[ICD10: G89.4] Diagnosis: 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 deficiency[ICD10: D51.0] Diagnosis: Other iron deficiency anemias[ICD10: D50.8] Diagnosis: Slow transit constipation[ICD10: K59.01] Andree Paris MD, [facility] CPT-4: 22270 05/03/2018 ([id number]) Miscellaneous no charge Diagnosis: Essential (primary) hypertension[ICD10: I10] Teresa Paris MD, [facility] CPT-4: 77742 01/31/2018 [id number]) 25097 EST. PATIENT, LEVEL IV Diagnosis: Essential (primary) hypertension[ICD10: I10] Diagnosis: Chronic pain syndrome[ICD10: G89.4] Andree Paris MD, [facility] CPT- 4: 99982 01/30/2018 [id number]) 02508 EST. PATIENT, LEVEL IV Diagnosis: Essential (primary) hypertension[ICD10: I10] Diagnosis: Chronic pain syndrome[ICD10: G89.4] Diagnosis: 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 deficiency[ICD10: D51.0] Diagnosis: Iron deficiency anemia, unspecified[ICD10: D50.9] Ana Paris MD, [facility] CPT-4: 03354 11/28/2017 71129 EST. PATIENT, LEVEL IV Diagnosis: Essential (primary) hypertension[ICD10: I10] Diagnosis: Slow transit constipation[ICD10: K59.01] Diagnosis: Chronic pain syndrome[ICD10: G89.4] Teresa Paris MD, [facility] CPT- 4: 82539 10/10/2017 89942 EST. PATIENT, LEVEL IV Diagnosis: 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 deficiency[ICD10: D51.0] Diagnosis: Essential (primary) hypertension[ICD10: I10] Diagnosis: Chronic pain syndrome[ICD10: G89.4] Teresa Paris MD, [facility] CPT- 4: 47225 09/26/2017 40539 EST. PATIENT, LEVEL III Diagnosis: Dysphagia, pharyngoesophageal phase[ICD10: R13.14] Teresa Paris MD, [facility] CPT-4: 69244 08/16/2017 ([id number]) 01726 EST. PATIENT, LEVEL IV Diagnosis: Essential (primary) hypertension[ICD10: I10] Diagnosis: Chronic pain syndrome[ICD10: G89.4] Diagnosis: 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 deficiency[ICD10: D51.0] Diagnosis: Iron deficiency anemia, unspecified[ICD10: D50.9] Diagnosis: Dysphagia, pharyngoesophageal phase[ICD10: R13.14] Ana Paris MD, [facility] CPT-4: 01418 07/18/2017 ([id number]) 64443 EST. PATIENT, LEVEL III Diagnosis: Essential (primary) hypertension[ICD10: I10] Diagnosis: Chronic pain syndrome[ICD10: G89.4] Diagnosis: 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 deficiency[ICD10: D51.0] Ana Paris MD, [facility] CPT-4: 35877 05/16/2017 ([id number]) 77407 EST. PATIENT, LEVEL III Diagnosis: Essential (primary) hypertension[ICD10: I10] Diagnosis: Chronic pain syndrome[ICD10: G89.4] Diagnosis: 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 deficiency[ICD10: D51.0] Ana Paris MD, [facility] CPT-4: 89088 03/14/2017 ([id number]) 74365 EST. PATIENT, LEVEL III Diagnosis: Cough[ICD10: R05] Diagnosis: Acute bronchitis, unspecified[ICD10: J20.9] Diagnosis: Chronic pain syndrome[ICD10: G89.4] Diagnosis: 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 deficiency[ICD10: D51.0] Ana Paris MD, [facility] CPT-4: 98165 01/12/2017 ([id number]) 86508 EST. PATIENT, LEVEL III Diagnosis: Essential (primary) hypertension[ICD10: I10] Diagnosis: Chronic pain syndrome[ICD10: G89.4] Ana Paris MD, [facility] CPT-4: 78861 12/08/2016 ([id number]) 10533 EST. PATIENT, LEVEL III Diagnosis: Essential (primary) hypertension[ICD10: I10] Ana Paris MD, [facility] CPT-4: 63630 11/03/2016 ([id number]) 64836 EST. PATIENT, LEVEL III Diagnosis: Essential (primary) hypertension[ICD10: I10] Ana Paris MD, [facility] CPT-4: 14377 10/06/2016 ([id number]) 16870 EST. PATIENT, LEVEL III Diagnosis: Essential (primary) hypertension[ICD10: I10] Ana Paris MD, [facility] CPT-4: 47468 09/06/2016 ([id number]) 38016 EST. PATIENT, LEVEL III Diagnosis: Essential (primary) hypertension[ICD10: I10] Ana Paris MD, [facility] CPT-4: 91090 08/23/2016 ([id number]) OFFICE VISIT, NEW - LEVEL 4 Diagnosis: Noninfective gastroenteritis and colitis, unspecified[ICD10: K52.9] Diagnosis: 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 deficiency[ICD10: D51.0] Diagnosis: Iron deficiency anemia, unspecified[ICD10: D50.9] Diagnosis: Chalazion left upper eyelid[ICD10: H00.14] Diagnosis: Elevated blood-pressure reading, without diagnosis of hypertension[ICD10: R03.0] Andree Paris MD, [facility] CPT-4: 14567 04/26/2016 Plan of Care Planned Activity Notes Codes Status Date Appointment: Injection 11/29/2018 Patient Education: Patient Medication [...] over-medication. 11/19/2018 [phone] [facility] ([facility] min) Moderate 11/19/2018 Patient [...] his amlodipine 08/15/2018 App[facility]ment[facility] [phone] [facility] (15 min) Moderate 08/15/2018 Patient [...] treatment plan. 05/23/2018 [phone] [facility] ([facility] min) Moderate 05/23/2018 Patient Education: Patient [...] current management. 05/03/2018 App[facility]ment: [facility] [phone] [facility] (15 min) Moderate 05/03/2018 Patient [...] over-medication. 01/30/2018 App[facility]ment: [facility] [phone] [facility] (15 min) Moderate 01/30/2018 Patient [...] acute concerns. 12/18/2017 App[facility]ment: [facility] [phone] [phone] [facility] - Annual Wellness Visit 12/18/2017 Patient [...] def-check labs 11/28/2017 Appointment: Ana Pedraza [phone] (30 min) [facility] 11/28/2017 Patient Education: Patient Medication Summary Completed [...] this regimen. 10/10/2017 Appointment: [facility] [phone] [facility] (30 min) Complex 10/10/2017 Patient Education: Patient [...] of over-medication. 09/26/2017 Appointment: Teresa Bardales WPtel: [phone] [facility] (30 min) Complex 09/26/2017 Patient Education: Patient Medication Summary Completed 09/26/2017 Appointment: [facility] [phone] [facility] (30 min) Complex 09/19/2017 Referral: External, Ordering Provider Referral Appointment Confirmed 08/17/2017 Visit Plan: Dysphagia - worsening since yesterday - will refer to Dr. Harper for possible EGD - pt is to notify clinic if symptoms do not improve, if they worsen, or with any acute changes, questions, or concerns. 08/16/2017 Appointment: [facility] [phone] [phone] (30 min) Complex 08/16/2017 Patient Education: Patient Medication Summary Completed 08/16/2017 Care Plan: Referral Order SNOMED-CT : [id number] Pending 08/16/2017 Appointment: Injection 08/10/2017 Patient Education: [...] today first 07/18/2017 Appointment: Ana Pedraza WPtel: [phone] (30 min) Complex 07/18/2017 Patient Education: Patient [...] of over-medication. 05/16/2017 Appointment: Ana Pedraza WPtel: [phone] (30 min) Complex 05/16/2017 Patient Education: [...] of over-medication. 03/14/2017 Appointment: Ana Pedraza WPtel: [phone] (30 min) Complex 03/14/2017 Patient Education: [...] of over-medication. 01/12/2017 Appointment: [facility] [phone] [phone] (30 min) Complex 01/12/2017 Patient Education: Patient [...] care surrogate. 12/12/2016 Appointment: Ana Pedraza WPtel: [phone] [facility] - Annual Wellness Visit 12/12/2016 Patient [...] over-medication. 12/08/2016 Appointment: Ana Pedraza WPtel: [phone] [phone] (30 min) Complex 12/08/2016 Patient Education: [...] acute concerns. 11/03/2016 Appointment: Ana Pedraza WPtel: [phone] [phone] (30 min) Complex 11/03/2016 Patient Education: [...] concerns. 10/06/2016 Appointment: Ana Pedraza WPtel: [phone] [phone] (30 min) Complex 10/06/2016 Patient Education: [...] acute concerns. 09/06/2016 Appointment: Ana Pedraza WPtel: [phone] [phone] (30 min) Complex 09/06/2016 Patient Education: [...] concerns. 08/23/2016 Appointment: Ana Pedraza WPtel: [phone] [phone] (15 min) Moderate 08/23/2016 Patient Education: [...] for gentamycin. 04/26/2016 Appointment: Andree Paris WPtel: [facility] [place] [facility] 04/26/2016 Patient Education: Patient [...] her DOPA paperwork for health care surrogate. OKAY TO STAY OF THE WATER PILL [...] and understands the consequences of over-medication. increase lisinopril to 20mg twice daily . [...] her DOPA paperwork for health care surrogate. SCHEDULE SWALLOW STUDY CHECK LABS THEN SCHEDULE [...] to have it-check labs today first . Dysphagia - worsening since yesterday - will refer to Dr. Harper for possible EGD - pt is to notify clinic if symptoms do not improve, if they worsen, or with any acute changes, questions, or concerns. Kenalog 60 mg IM Rocephin 500mg B12 [...] symptoms not improved on this regimen. . Hypertension - well controlled - continue [...] improved - continue with current management. . Vitamin B12 deficiency due to bowel [...]
--- OUTSIDE RECORDS SUMMARY | 2019-02-13 09:29 | XMS REPORT | CCD ---
Author Author [facility] Organization [facility] Address [address] [place] [address] Phone Care Team Providers Care Ticket Taker Name Role Phone PP Unavailable CCM Unavailable Summary Purpose Interface Exchange Insurance Providers Payer name Policy type / Coverage type Covered constitution party ID Effective Begin Date Effective End Date WPS Medicare Part B Medicare Part B [id number] Unknown Unknown FOR LIFE WPS Medicare Part B [id number] Unknown Unknown Family history Father Diagnosis Age At Onset No Known Diseases N/A Mother Diagnosis Age At Onset No Known Diseases N/A Social History Social History Element Codes Description Effective Dates Marital status Unknown 04/26/2016 Number of children Unknown 3 04/26/2016 Employment Unknown Retired 04/26/[address]: 9090441 Former smoker Quit 1968 04/26/[address]: 330802 Currently drinks alcohol 04/26/2016 Has the patient [...] (vit B-12) 1,000 mcg/mL injection solution RxNorm: 764052 Milliliter(s) Inj 11/29/2018 11/29/2018 Inactive morphine ER 30 mg tablet,extended release RxNorm: 684967 1 Tablet(s) PO daily 10/29/2018 11/27/2018 Inactive cyanocobalamin (vit B-12) 1,000 mcg/mL injection solution RxNorm: 365249 Milliliter(s) Inj 10/29/2018 10/29/2018 Inactive cyanocobalamin (vit B-12) 1,000 mcg/mL injection solution RxNorm: 168926 Milliliter(s) Inj 09/28/2018 09/28/2018 Inactive morphine ER 30 mg tablet,extended release RxNorm: 359622 1 Tablet(s) PO daily 09/28/2018 10/27/2018 Inactive morphine ER 30 mg tablet,extended release RxNorm: 790046 1 Tablet(s) PO daily 08/30/2018 09/27/2018 Inactive cyanocobalamin (vit B-12) 1,000 mcg/mL injection solution RxNorm: 181201 Milliliter(s) Inj 08/30/2018 08/30/2018 Inactive cyanocobalamin (vit B-12) 1,000 mcg/mL injection solution RxNorm: 874015 Milliliter(s) Inj 07/31/2018 07/31/2018 Inactive morphine ER 30 mg tablet,extended release RxNorm: 485625 1 Tablet(s) PO daily 07/31/2018 08/29/2018 Inactive amlodipine 5 mg tablet RxNorm: 054936 1 Tablet(s) PO QPM 07/11/2018 01/06/2019 Active cyanocobalamin (vit B-12) 1,000 mcg/mL injection solution RxNorm: 973231 1 Milliliter(s) Inj 07/02/2018 07/02/2018 Inactive morphine ER 30 mg tablet,extended release RxNorm: 095361 1 Tablet(s) PO daily 07/02/2018 07/30/2018 Inactive morphine ER 30 mg tablet,extended release RxNorm: 710429 1 Tablet(s) PO daily 05/31/2018 06/29/2018 Inactive cyanocobalamin (vit B-12) 1,000 mcg/mL injection solution RxNorm: 421415 Milliliter(s) Inj 05/31/2018 05/31/2018 Inactive Protonix 40 mg tablet,delayed release RxNorm: 691985 1 Tablet(s) PO daily 05/23/2018 06/21/2018 Inactive Carafate 1 gram tablet RxNorm: 500820 1 Tablet(s) PO AC & HS as needed 05/23/2018 06/21/2018 Inactive cyanocobalamin (vit B-12) 1,000 mcg/mL injection solution RxNorm: 401915 1 Milliliter(s) Inj 05/03/2018 05/03/2018 Inactive morphine ER 30 mg tablet,extended release RxNorm: 074810 1 Tablet(s) PO daily 04/04/2018 05/03/2018 Inactive cyanocobalamin (vit B-12) 1,000 mcg/mL injection solution RxNorm: 114806 1 Milliliter(s) Inj 04/04/2018 04/04/2018 Inactive cyanocobalamin (vit B-12) 1,000 mcg/mL injection solution RxNorm: 873375 1 Milliliter(s) Inj 03/05/2018 03/05/2018 Inactive morphine ER 30 mg tablet,extended release RxNorm: 740879 1 Tablet(s) PO daily 03/05/2018 04/03/2018 Inactive cyanocobalamin (vit B-12) 1,000 mcg/mL injection solution RxNorm: 238504 1 Milliliter(s) Inj 01/30/2018 01/30/2018 Inactive cyanocobalamin (vit B-12) 1,000 mcg/mL injection solution RxNorm: 274071 1 Milliliter(s) Inj 01/01/2018 01/01/2018 Inactive morphine ER 30 mg tablet,extended release RxNorm: 332935 1 Tablet(s) PO daily 01/01/2018 01/30/2018 Inactive lisinopril 20 mg tablet RxNorm: 795762 1 Tablet(s) PO BID 12/18/2017 12/12/2018 Active amlodipine 5 mg tablet RxNorm: 714644 1 Tablet(s) PO QPM 12/18/2017 06/15/2018 Inactive cyanocobalamin (vit B-12) 1,000 mcg/mL injection solution RxNorm: 470098 1 Milliliter(s) Inj 11/28/2017 11/28/2017 Inactive morphine ER 30 mg tablet,extended release RxNorm: 233440 1 Tablet(s) PO daily 11/28/2017 12/27/2017 Inactive morphine ER 30 mg tablet,extended release RxNorm: 627061 1 Tablet(s) PO daily 11/09/2017 11/27/2017 Inactive cyanocobalamin (vit B-12) 1,000 mcg/mL injection solution RxNorm: 710201 1 Milliliter(s) Inj 10/24/2017 10/24/2017 Inactive morphine ER 30 mg tablet,extended release RxNorm: 310397 1 Tablet(s) PO daily 10/10/2017 11/08/2017 Inactive hydrochlorothiazide 25 mg tablet RxNorm: 117565 1 Tablet(s) PO daily 10/10/2017 11/08/2017 Inactive cyanocobalamin (vit B-12) 1,000 mcg/mL injection solution RxNorm: 171103 1 Milliliter(s) Inj 09/26/2017 09/26/2017 Inactive hydrochlorothiazide 12.5 mg tablet RxNorm: 967725 1 Tablet(s) PO daily 09/26/2017 10/25/2017 Inactive morphine ER 30 mg tablet,extended release RxNorm: 568173 1 Tablet(s) PO daily 09/12/2017 10/09/2017 Inactive cyanocobalamin (vit B-12) 1,000 mcg/mL injection solution RxNorm: 500443 1 Milliliter(s) Inj 08/10/2017 08/10/2017 Inactive morphine ER 30 mg tablet,extended release RxNorm: 672766 1 Tablet(s) PO daily 08/10/2017 09/08/2017 Inactive Vitamin B-12 1,000 mcg/mL injection solution RxNorm: 375289 1 Milliliter(s) Inj month 07/21/2017 No Stop Date Active B12 INJECTIONS MONTHLY cyanocobalamin (vit B-12) 1,000 mcg/mL injection solution RxNorm: 794560 1 Milliliter(s) Inj 07/18/2017 07/18/2017 Inactive morphine ER 30 mg tablet,extended release RxNorm: 456615 1 Tablet(s) PO daily 07/13/2017 08/09/2017 Inactive morphine ER 30 mg tablet,extended release RxNorm: 189901 1 Tablet(s) PO daily 06/15/2017 07/12/2017 Inactive cyanocobalamin (vit B-12) 1,000 mcg/mL injection solution RxNorm: 907201 1 Milliliter(s) Inj 05/16/2017 05/16/2017 Inactive morphine ER 30 mg tablet,extended release RxNorm: 843513 1 Tablet(s) PO daily 04/13/2017 05/12/2017 Inactive cyanocobalamin (vit B-12) 1,000 mcg/mL injection solution RxNorm: 109544 1 Milliliter(s) Inj 03/14/2017 03/14/2017 Inactive morphine ER 30 mg tablet,extended release RxNorm: 440608 1 Tablet(s) PO daily 03/14/2017 04/12/2017 Inactive morphine ER 30 mg tablet,extended release RxNorm: 887067 1 Tablet(s) PO daily 02/13/2017 03/13/2017 Inactive Kenalog 40 mg/mL suspension for injection RxNorm: 0319381 1 Milliliter(s) Inj 01/12/2017 01/12/2017 Inactive cyanocobalamin (vit B-12) 1,000 mcg/mL injection solution RxNorm: 717449 1 Milliliter(s) Inj 01/12/2017 01/12/2017 Inactive Zithromax Z-[place] 250 mg tablet RxNorm: 302043 1 Tablet(s) PO UD 01/12/2017 01/16/2017 Inactive ceftriaxone 500 mg solution for injection RxNorm: 1137396 1 Milliliter(s) Inj 01/12/2017 01/12/2017 Inactive Vitamin B-12 1,000 mcg/mL injection solution RxNorm: 810113 1 Milliliter(s) Inj EVERY OTHER MONTH 01/04/2017 07/20/2017 Inactive lisinopril 20 mg tablet RxNorm: 846539 1 Tablet(s) PO BID 01/02/2017 12/17/2017 Inactive lisinopril 20 mg tablet RxNorm: 710388 1 Tablet(s) PO BID 12/12/2016 01/01/2017 Inactive morphine ER 30 mg tablet,extended release RxNorm: 804308 1 Tablet(s) PO daily 12/08/2016 01/06/2017 Inactive lisinopril 20 mg tablet RxNorm: 526194 1 Tablet(s) PO BID 11/03/2016 12/11/2016 Inactive morphine ER 30 mg tablet,extended release RxNorm: 443487 1 Tablet(s) PO daily 11/03/2016 12/02/2016 Inactive cyanocobalamin (vit B-12) 1,000 mcg/mL injection solution RxNorm: 781930 1 Milliliter(s) Inj 10/27/2016 10/27/2016 Inactive lisinopril 10 mg tablet RxNorm: 444535 1 Tablet(s) PO BID 10/06/2016 11/02/2016 Inactive lisinopril 10 mg tablet RxNorm: 225019 1 Tablet(s) PO daily 09/06/2016 10/05/2016 Inactive morphine ER 30 mg tablet,extended release RxNorm: 661012 1 Tablet(s) PO daily 08/18/2016 09/16/2016 Inactive cyanocobalamin (vit B-12) 1,000 mcg/mL injection solution RxNorm: 558745 Milliliter(s) Inj 07/27/2016 07/27/2016 Inactive morphine ER 30 mg tablet,extended release RxNorm: 579573 1 Tablet(s) PO daily 07/21/2016 08/17/2016 Inactive morphine ER 30 mg tablet,extended release RxNorm: 477382 1 Tablet(s) PO daily 06/20/2016 07/19/2016 Inactive morphine ER 30 mg tablet,extended release RxNorm: 651961 1 Tablet(s) PO daily 05/20/2016 06/19/2016 Inactive cyanocobalamin (vit B-12) 1,000 mcg/mL injection solution RxNorm: 776136 1 Milliliter(s) Inj 04/26/2016 04/26/2016 Inactive gentamicin 0.3 % eye drops RxNorm: 752171 2 Drop(s) OPH Q4H 04/26/2016 05/02/2016 Inactive Vitamin B-12 1,000 mcg/mL injection solution RxNorm: 303754 1 Milliliter(s) Inj EVERY 3 MONTHS No Start Date 01/03/2017 Inactive Claritin 10 mg tablet RxNorm: 536988 1 Tablet(s) PO daily No Start Date 07/17/2017 Inactive Venofer intravenous RxNorm: 46365 intravenous No Start Date 08/14/2018 Inactive morphine ER 30 mg tablet,extended release RxNorm: 004543 1 Tablet(s) PO daily No Start Date 04/25/2016 Inactive Medication Administered Medication Codes Instructions Start Date Status cyanocobalamin (vit B-12) 1,000 mcg/mL injection solution RxNorm: 114100 Milliliter 11/29/2018 Active cyanocobalamin (vit B-12) 1,000 mcg/mL injection solution RxNorm: 401125 Milliliter 10/29/2018 No longer Active cyanocobalamin (vit B-12) 1,000 mcg/mL injection solution RxNorm: 996537 Milliliter 09/28/2018 No longer Active cyanocobalamin (vit B-12) 1,000 mcg/mL injection solution RxNorm: 759391 Milliliter 08/30/2018 No longer Active cyanocobalamin (vit B-12) 1,000 mcg/mL injection solution RxNorm: 083415 Milliliter 07/31/2018 No longer Active cyanocobalamin (vit B-12) 1,000 mcg/mL injection solution RxNorm: 205959 1Milliliter 07/02/2018 No longer Active cyanocobalamin (vit B-12) 1,000 mcg/mL injection solution RxNorm: 908884 Milliliter 05/31/2018 No longer Active cyanocobalamin (vit B-12) 1,000 mcg/mL injection solution RxNorm: 852821 1Milliliter 05/03/2018 No longer Active cyanocobalamin (vit B-12) 1,000 mcg/mL injection solution RxNorm: 498285 1Milliliter 04/04/2018 No longer Active cyanocobalamin (vit B-12) 1,000 mcg/mL injection solution RxNorm: 025124 1Milliliter 03/05/2018 No longer Active cyanocobalamin (vit B-12) 1,000 mcg/mL injection solution RxNorm: 333269 1Milliliter 01/30/2018 No longer Active cyanocobalamin (vit B-12) 1,000 mcg/mL injection solution RxNorm: 844891 1Milliliter 01/01/2018 No longer Active cyanocobalamin (vit B-12) 1,000 mcg/mL injection solution RxNorm: 069494 1Milliliter 11/28/2017 No longer Active cyanocobalamin (vit B-12) 1,000 mcg/mL injection solution RxNorm: 799791 1Milliliter 10/24/2017 No longer Active cyanocobalamin (vit B-12) 1,000 mcg/mL injection solution RxNorm: 036541 1Milliliter 09/26/2017 No longer Active cyanocobalamin (vit B-12) 1,000 mcg/mL injection solution RxNorm: 645579 1Milliliter 08/10/2017 No longer Active cyanocobalamin (vit B-12) 1,000 mcg/mL injection solution RxNorm: 242173 1Milliliter 07/18/2017 No longer Active cyanocobalamin (vit B-12) 1,000 mcg/mL injection solution RxNorm: 385060 1Milliliter 05/16/2017 No longer Active cyanocobalamin (vit B-12) 1,000 mcg/mL injection solution RxNorm: 271511 1Milliliter 03/14/2017 No longer Active Kenalog 40 mg/mL suspension for injection RxNorm: 3765736 1Milliliter 01/12/2017 No longer Active ceftriaxone 500 mg solution for injection RxNorm: 5898640 1Milliliter 01/12/2017 No longer Active cyanocobalamin (vit B-12) 1,000 mcg/mL injection solution RxNorm: 951630 1Milliliter 01/12/2017 No longer Active cyanocobalamin (vit B-12) 1,000 mcg/mL injection solution RxNorm: 720077 1Milliliter 10/27/2016 No longer Active cyanocobalamin (vit B-12) 1,000 mcg/mL injection solution RxNorm: 111478 Milliliter 07/27/2016 No longer Active cyanocobalamin (vit B-12) 1,000 mcg/mL injection solution RxNorm: 796011 1Milliliter 04/26/2016 No longer Active Immunizations Vaccine [...] Code Item Item Code Result Date B12 Kjt432 B12 453.00 pg/ml 11/15/2018 Comp Metabolic Ekl485 NA 139 mEq/L 11/15/2018 Comp Metabolic Ysg393 K 4.5 mEq/L 11/15/2018 Comp Metabolic Eax397 CL 105 mEq/L 11/15/2018 Comp Metabolic Rsf431 CO2 28.0 mEq/L 11/15/2018 Comp Metabolic Bss589 ANION GAP 11 11/15/2018 Comp Metabolic Igr956 GLUCOSE 96 mg/dL 11/15/2018 Comp Metabolic Umq907 Creat 1.1 mg/dL 11/15/2018 Comp Metabolic Eoi260 eGFR 68 ml/min/1.73m2 11/15/2018 Comp Metabolic Nuw273 BUN 18 mg/dL 11/15/2018 Comp Metabolic Pku419 B/C Ratio 16.5 Ratio 11/15/2018 Comp Metabolic Xhg080 CALCIUM 9.3 mg/dL 11/15/2018 Comp Metabolic Ldk485 ALK PHOS 72 U/L 11/15/2018 Comp Metabolic Xli418 AST(SGOT) 21 U/L 11/15/2018 Comp Metabolic Knb210 ALT(SGPT) 13 U/L 11/15/2018 Comp Metabolic Dop805 BILI T 0.8 mg/dL 11/15/2018 Comp Metabolic Ktu672 ALBUMIN 3.9 g/dL 11/15/2018 Comp Metabolic Twp905 TPRO 6.5 g/dL 11/15/2018 Comp Metabolic Lpy460 GLOB 2.6 g/dL 11/15/2018 Comp Metabolic Nvs124 A/G Ratio 1.5 Ratio 11/15/2018 Comp Metabolic Rrw275 Osmo 279 mOsmo 11/15/2018 Tsh Ord6 TSH [...] 33.1 pg 11/15/2018 Cbc With Differential Ord2 Rankin% 12.6 % 11/15/2018 Cbc With Differential Ord2 [...] 3.56 K/ul 11/15/2018 Cbc With Differential Ord2 Rankin ABS# 1.2 K/ul 11/15/2018 Cbc With Differential [...] 32.9 pg 11/28/2017 Cbc With Differential Ord2 Rankin% 12.6 % 11/28/2017 Cbc With Differential Ord2 [...] 2.87 K/ul 11/28/2017 Cbc With Differential Ord2 Rankin ABS# 1.1 K/ul 11/28/2017 Cbc With Differential Ord2 Eos ABS# 0.3 K/ul 11/28/2017 Cbc With Differential Ord2 Baso ABS# 0.0 K/ul 11/28/2017 B12 Rjq836 B12 >1500.00 pg/ml 11/28/2017 Comp Metabolic Ghi982 NA 139 mEq/L 11/28/2017 Comp Metabolic Sut115 K 5.2 mEq/L 11/28/2017 Comp Metabolic Nlp412 CL 106 mEq/L 11/28/2017 Comp Metabolic Xel437 CO2 28.0 mEq/L 11/28/2017 Comp Metabolic Nvh809 ANION GAP 10 11/28/2017 Comp Metabolic Mxd196 GLUCOSE 89 mg/dL 11/28/2017 Comp Metabolic Lsh616 Creat 1.1 mg/dL 11/28/2017 Comp Metabolic Bfu924 eGFR 66 ml/min/1.73m2 11/28/2017 Comp Metabolic Pdo236 BUN 18 mg/dL 11/28/2017 Comp Metabolic Grl903 B/C Ratio 16.1 Ratio 11/28/2017 Comp Metabolic Eqo618 CALCIUM 9.2 mg/dL 11/28/2017 Comp Metabolic Sot114 ALK PHOS 89 U/L 11/28/2017 Comp Metabolic Usc241 AST(SGOT) 22 U/L 11/28/2017 Comp Metabolic Quz714 ALT(SGPT) 15 U/L 11/28/2017 Comp Metabolic Ifc036 BILI T 0.6 mg/dL 11/28/2017 Comp Metabolic Usu452 ALBUMIN 3.9 g/dL 11/28/2017 Comp Metabolic Kqh806 TPRO 6.5 g/dL 11/28/2017 Comp Metabolic Ozd366 GLOB 2.6 g/dL 11/28/2017 Comp Metabolic Nmu917 A/G Ratio 1.5 Ratio 11/28/2017 Comp Metabolic Bno209 Osmo 279 mOsmo 11/28/2017 Ferritin Ord22 FERRITIN [...] 33.7 pg 07/18/2017 Cbc With Differential Ord2 Rankin% 12.3 % 07/18/2017 Cbc With Differential Ord2 [...] 2.90 K/ul 07/18/2017 Cbc With Differential Ord2 Rankin ABS# 1.1 K/ul 07/18/2017 Cbc With Differential Ord2 Eos ABS# 0.2 K/ul 07/18/2017 Cbc With Differential Ord2 Baso ABS# 0.0 K/ul 07/18/2017 Comp Metabolic Uvm046 NA 140 mEq/L 07/18/2017 Comp Metabolic Jsu511 K 4.6 mEq/L 07/18/2017 Comp Metabolic Gis674 CL 105 mEq/L 07/18/2017 Comp Metabolic Kms955 CO2 29.0 mEq/L 07/18/2017 Comp Metabolic Pga940 ANION GAP 11 07/18/2017 Comp Metabolic Gdc943 GLUCOSE 96 mg/dL 07/18/2017 Comp Metabolic Mxu449 Creat 1.0 mg/dL 07/18/2017 Comp Metabolic Ede616 eGFR 73 ml/min/1.73m2 07/18/2017 Comp Metabolic Jki708 BUN 12 mg/dL 07/18/2017 Comp Metabolic Ofm271 B/C Ratio 11.7 Ratio 07/18/2017 Comp Metabolic Dyv961 CALCIUM 9.2 mg/dL 07/18/2017 Comp Metabolic Rny713 ALK PHOS 74 U/L 07/18/2017 Comp Metabolic Avm951 AST(SGOT) 29 U/L 07/18/2017 Comp Metabolic Cxk361 ALT(SGPT) 16 U/L 07/18/2017 Comp Metabolic Sqt776 BILI T 0.7 mg/dL 07/18/2017 Comp Metabolic Lvg166 ALBUMIN 3.7 g/dL 07/18/2017 Comp Metabolic Zfp957 TPRO 6.5 g/dL 07/18/2017 Comp Metabolic Djl073 GLOB 2.8 g/dL 07/18/2017 Comp Metabolic Hyg616 A/G Ratio 1.3 Ratio 07/18/2017 Comp Metabolic Ylq908 Osmo 279 mOsmo 07/18/2017 Iron Ord72 Iron 114 ug/dl 07/18/2017 B12 Eoj096 B12 233.00 pg/ml 07/18/2017 Tsh Ord6 hTSH [...] 33.3 pg 12/13/2016 Cbc With Differential Ord2 Rankin% 17.9 % 12/13/2016 Cbc With Differential Ord2 [...] 2.71 K/ul 12/13/2016 Cbc With Differential Ord2 Rankin ABS# 1.7 K/ul 12/13/2016 Cbc With Differential Ord2 Eos ABS# 0.3 K/ul 12/13/2016 Cbc With Differential Ord2 Baso ABS# 0.0 K/ul 12/13/2016 Comp Metabolic Mgc039 NA 136 mEq/L 12/13/2016 Comp Metabolic Lkr084 K 4.7 mEq/L 12/13/2016 Comp Metabolic Eiz371 CL 102 mEq/L 12/13/2016 Comp Metabolic Zgp229 CO2 26.0 mEq/L 12/13/2016 Comp Metabolic Jde189 ANION GAP 13 12/13/2016 Comp Metabolic Emb957 GLUCOSE 87 mg/dL 12/13/2016 Comp Metabolic Das594 Creat 0.9 mg/dL 12/13/2016 Comp Metabolic Epp284 eGFR 83 ml/min/1.73m2 12/13/2016 Comp Metabolic Imp765 BUN 17 mg/dL 12/13/2016 Comp Metabolic Kga870 B/C Ratio 18.3 Ratio 12/13/2016 Comp Metabolic Hlg628 CALCIUM 9.1 mg/dL 12/13/2016 Comp Metabolic Hky188 ALK PHOS 90 U/L 12/13/2016 Comp Metabolic Hnn587 AST(SGOT) 22 U/L 12/13/2016 Comp Metabolic Mst025 ALT(SGPT) 15 U/L 12/13/2016 Comp Metabolic Xca448 BILI T 0.8 mg/dL 12/13/2016 Comp Metabolic Vql360 ALBUMIN 3.6 g/dL 12/13/2016 Comp Metabolic Cog887 TPRO 6.4 g/dL 12/13/2016 Comp Metabolic Ajg102 GLOB 2.9 g/dL 12/13/2016 Comp Metabolic Szs965 A/G Ratio 1.2 Ratio 12/13/2016 Comp Metabolic Eka323 Osmo 273 mOsmo 12/13/2016 Lipid Ord30 CHOL 182 mg/dL 12/13/2016 Lipid Ord30 HDL 64.0 mg/dl 12/13/2016 Lipid Ord30 TRIG 62 mg/dL 12/13/2016 Lipid Ord30 LDL 106 mg/dL 12/13/2016 Lipid Ord30 C/HDL 2.8 Ratio 12/13/2016 Ferritin Ord22 FERRITIN 434.7 ng/mL 12/13/2016 B12 Tta931 B12 247.00 pg/ml 12/13/2016 Tibc Ord40 Iron [...] 33.7 pg 04/27/2016 Cbc With Differential Ord2 Rankin% 13.7 % 04/27/2016 Cbc With Differential Ord2 [...] 3.22 K/ul 04/27/2016 Cbc With Differential Ord2 Rankin ABS# 1.2 K/ul 04/27/2016 Cbc With Differential Ord2 Eos ABS# 0.3 K/ul 04/27/2016 Cbc With Differential Ord2 Baso ABS# 0.0 K/ul 04/27/2016 Comp Metabolic Ibn169 NA 138 mEq/L 04/27/2016 Comp Metabolic Vab536 K 4.3 mEq/L 04/27/2016 Comp Metabolic Qtl179 CL 104 mEq/L 04/27/2016 Comp Metabolic Xqd631 CO2 30.0 mEq/L 04/27/2016 Comp Metabolic Tta932 ANION GAP 8 04/27/2016 Comp Metabolic Hlb803 GLUCOSE 87 mg/dL 04/27/2016 Comp Metabolic Bwo027 Creat 0.9 mg/dL 04/27/2016 Comp Metabolic Niu030 eGFR 82 ml/min/1.73m2 04/27/2016 Comp Metabolic Kwo559 BUN 13 mg/dL 04/27/2016 Comp Metabolic Ybj828 B/C Ratio 13.8 Ratio 04/27/2016 Comp Metabolic Gzo351 CALCIUM 9.0 mg/dL 04/27/2016 Comp Metabolic Zhi508 ALK PHOS 62 U/L 04/27/2016 Comp Metabolic Xsc267 AST(SGOT) 24 U/L 04/27/2016 Comp Metabolic Skl926 ALT(SGPT) 15 U/L 04/27/2016 Comp Metabolic Mww344 BILI T 0.7 mg/dL 04/27/2016 Comp Metabolic Fjd149 ALBUMIN 3.6 g/dL 04/27/2016 Comp Metabolic Ote165 TPRO 6.1 g/dL 04/27/2016 Comp Metabolic Iml962 GLOB 2.5 g/dL 04/27/2016 Comp Metabolic Krz092 A/G Ratio 1.4 Ratio 04/27/2016 Comp Metabolic Tqh731 Osmo 275 mOsmo 04/27/2016 B12 Oxn360 B12 >1500.00 pg/ml 04/27/2016 Iron Ord72 Iron [...] Procedure Codes Date THER/PROPH/DIAG INJ SC/IM CPT-4: 74093 11/29/2018 VITAMIN B12 INJECTION CPT- 4: J3420 11/29/2018 THER/PROPH/DIAG INJ SC/IM CPT-4: 57989 10/29/2018 VITAMIN B12 INJECTION CPT- 4: J3420 10/29/2018 THER/PROPH/DIAG INJ SC/IM CPT-4: 82214 09/28/2018 VITAMIN B12 INJECTION CPT- 4: J3420 09/28/2018 THER/PROPH/DIAG INJ SC/IM CPT-4: 69900 08/30/2018 VITAMIN B12 INJECTION CPT- 4: J3420 08/30/2018 VITAMIN B12 INJECTION CPT- 4: J3420 07/31/2018 THER/PROPH/DIAG INJ SC/IM CPT-4: 12527 07/31/2018 THER/PROPH/DIAG INJ SC/IM CPT-4: 90470 07/02/2018 VITAMIN B12 INJECTION CPT- 4: J3420 07/02/2018 THER/PROPH/DIAG INJ SC/IM CPT-4: 22664 05/31/2018 ADMIN INFLUENZA VIRUS VAC CPT-4: G0008 05/31/2018 VITAMIN B12 INJECTION CPT- 4: J3420 05/31/2018 FLU VACC PRSV FREE INC ANTIG Formatting Model/CDA Sections, Assigned to/Mary Grace Rosado CPT-4: [id number] 05/31/2018 VITAMIN B12 INJECTION CPT- 4: J3420 05/03/2018 THER/PROPH/DIAG INJ SC/IM CPT-4: 25686 05/03/2018 THER/PROPH/DIAG INJ SC/IM CPT-4: 40133 04/04/2018 VITAMIN B12 INJECTION CPT- 4: J3420 04/04/2018 THER/PROPH/DIAG INJ SC/IM CPT-4: 06287 03/05/2018 VITAMIN B12 INJECTION CPT- 4: J3420 03/05/2018 VITAMIN B12 INJECTION CPT- 4: J3420 01/30/2018 THER/PROPH/DIAG INJ SC/IM CPT-4: 01150 01/30/2018 THER/PROPH/DIAG INJ SC/IM CPT-4: 59498 01/01/2018 VITAMIN B12 INJECTION CPT- 4: J3420 01/01/2018 PPPS, SUBSEQ VISIT CPT- 4: G0439 12/18/2017 THER/PROPH/DIAG INJ SC/IM CPT-4: 74550 11/28/2017 VITAMIN B12 INJECTION CPT- 4: J3420 11/28/2017 THER/PROPH/DIAG INJ SC/IM CPT-4: 53400 10/24/2017 VITAMIN B12 INJECTION CPT- 4: J3420 10/24/2017 THER/PROPH/DIAG INJ SC/IM CPT-4: 18065 09/26/2017 VITAMIN B12 INJECTION CPT- 4: J3420 09/26/2017 THER/PROPH/DIAG INJ SC/IM CPT-4: 25223 08/10/2017 VITAMIN B12 INJECTION CPT- 4: J3420 08/10/2017 THER/PROPH/DIAG INJ SC/IM CPT-4: 54526 07/18/2017 VITAMIN B12 INJECTION CPT- 4: J3420 07/18/2017 THER/PROPH/DIAG INJ SC/IM CPT-4: 73780 05/16/2017 VITAMIN B12 INJECTION CPT- 4: J3420 05/16/2017 THER/PROPH/DIAG INJ SC/IM CPT-4: 63259 03/14/2017 VITAMIN B12 INJECTION CPT- 4: J3420 03/14/2017 TRIAMCINOLONE ACET INJ NOS CPT-4: J3301 01/12/2017 ROCEPHIN, PER 250 MG CPT- 4: J0696 01/12/2017 VITAMIN B12 INJECTION CPT- 4: J3420 01/12/2017 THER/PROPH/DIAG INJ SC/IM CPT-4: 33639 01/12/2017 PPPS, SUBSEQ VISIT CPT- 4: G0439 12/12/2016 PNEUMOCOCCAL VACC [address]: 88430438 CPT-4: 35815 12/12/2016 ADMIN PNEUMOCOCCAL VACCINE SNOMED CT: 73800415 CPT-4: G0009 12/12/2016 THER/PROPH/DIAG INJ SC/IM CPT-4: 54471 10/27/2016 VITAMIN B12 INJECTION CPT- 4: J3420 10/27/2016 THER/PROPH/DIAG INJ SC/IM CPT-4: 63450 07/27/2016 VITAMIN B12 INJECTION CPT- 4: J3420 07/27/2016 THER/PROPH/DIAG INJ SC/IM CPT-4: 37149 04/26/2016 VITAMIN B12 INJECTION CPT- 4: J3420 04/26/2016 Vital Signs Date Vital 11/19/2018 Blood Pressure 1: 128/76 Code: 8480-6 BMI: 25.8 Code: 08433-5 Heart Rate 1: 76 bpm Height: 5'7" SpO2: 98% Weight: 165 lbs 08/15/2018 Blood Pressure 1: 144/66 Code: 8480-6 BMI: 25.1 Code: 79435-0 Heart Rate 1: 75 bpm Height: 5'7" SpO2: 98% Weight: 160 lbs 05/23/2018 Blood Pressure 1: 158/64 Code: 8480-6 BMI: 24.7 Code: 13700-7 Heart Rate 1: 76 bpm Height: 5'7" SpO2: 96% Temperature: 36.7 (C) / 98.1 (F) Weight: 158 lbs 05/03/2018 Blood Pressure 1: 122/72 Code: 8480-6 BMI: 25.1 Code: 08556-0 Heart Rate 1: 74 bpm Height: 5'7" SpO2: 97% Weight: 160 lbs 01/31/2018 Blood Pressure 1: 137/77 Code: 8480-6 Blood Pressure 2: 138/68 Code: 8480-6 Heart Rate 1: 67 bpm SpO2: 98% 01/30/2018 Blood Pressure 1: 138/66 Code: 8480-6 BMI: 25.1 Code: 39955-9 Heart Rate 1: 76 bpm Height: 5'7" SpO2: 94% Weight: 160 lbs 12/18/2017 Blood Pressure 1: 152/88 Code: 8480-6 BMI: 25.8 Code: 70960-5 Heart Rate 1: 68 bpm Height: 5'7" SpO2: 96% Weight: 165 lbs 11/28/2017 Blood Pressure 1: 150/76 Code: 8480-6 BMI: 25.2 Code: 86086-7 Heart Rate 1: 78 bpm Height: 5'7" SpO2: 98% Weight: 161 lbs 10/10/2017 Blood Pressure 1: 156/76 Code: 8480-6 BMI: 24.7 Code: 65606-4 Heart Rate 1: 71 bpm Height: 5'7" SpO2: 98% Weight: 158 lbs 09/26/2017 Blood Pressure 1: 162/82 Code: 8480-6 BMI: 24.7 Code: 85202-4 Heart Rate 1: 69 bpm Height: 5'7" SpO2: 99% Weight: 158 lbs 08/16/2017 Blood Pressure 1: 154/82 Code: 8480-6 BMI: 24.1 Code: 69631-2 Heart Rate 1: 58 bpm Height: 5'7" SpO2: 96% Weight: 154 lbs 07/18/2017 Blood Pressure 1: 152/88 Code: 8480-6 BMI: 25.2 Code: 44890-8 Heart Rate 1: 72 bpm Height: 5'7" SpO2: 98% Weight: 161 lbs 05/16/2017 Blood Pressure 1: 136/78 Code: 8480-6 BMI: 24.8 Code: 81999-7 Heart Rate 1: 71 bpm Height: 5'7" SpO2: 96% Weight: 158 lbs 8 oz 03/14/2017 Blood Pressure 1: 142/74 Code: 8480-6 BMI: 23.8 Code: 71799-7 Heart Rate 1: 69 bpm Height: 5'7" SpO2: 94% Weight: 152 lbs 01/12/2017 Blood Pressure 1: 156/90 Code: 8480-6 BMI: 23.4 Code: 10480-3 Heart Rate 1: 90 bpm Height: 5'7" SpO2: 97% Temperature: 37.4 (C) / 99.3 (F) Weight: 149 lbs 8 oz 12/12/2016 Blood Pressure 1: 140/78 Code: 8480-6 BMI: 24.3 Code: 89674-6 Heart Rate 1: 73 bpm Height: 5'7" SpO2: 96% Waist Measure (cm): 90 cm Weight: 155 lbs 12/08/2016 Blood Pressure 1: 148/84 Code: 8480-6 BMI: 24.3 Code: 24633-5 Heart Rate 1: 80 bpm Height: 5'7" SpO2: 96% Weight: 155 lbs 11/03/2016 Blood Pressure 1: 156/84 Code: 8480-6 Blood Pressure 2: 155/94 Code: 8480-6 BMI: 24.3 Code: 58267-4 Heart Rate 1: 81 bpm Height: 5'7" SpO2: 98% Weight: 155 lbs 10/06/2016 Blood Pressure 1: 175/95 Code: 8480-6 Heart Rate 1: 77 bpm Respiratory Rate: 16 bpm SpO2: 98% Temperature: 36.4 (C) / 97.5 (F) Weight: 157 lbs 09/06/2016 Blood Pressure 1: 136/80 Code: 8480-6 BMI: 24.1 Code: 88751-8 Heart Rate 1: 82 bpm Height: 5'8" SpO2: 97% Weight: 156 lbs 08/23/2016 Blood Pressure 1: 160/80 Code: 8480-6 BMI: 24.4 Code: 19545-5 Heart Rate 1: 88 bpm Height: 5'8" SpO2: 95% Weight: 158 lbs 04/26/2016 Blood Pressure 1: 156/74 Code: 8480-6 BMI: 24.5 Code: 43517-7 Heart Rate 1: 70 bpm Height: 5'8" [...] data Encounters Encounter Performer Location Codes Date (214 EST. PATIENT, LEVEL IV Diagnosis: Essential (primary) hypertension[ICD10: I10] Diagnosis: Chronic pain syndrome[ICD10: G89.4] Diagnosis: Epigastric pain[ICD10: R10.13] Andree Paris MD, [facility] CPT-4: 74338 11/19/2018 ([id number]) 47188 EST. PATIENT, LEVEL III Diagnosis: Essential (primary) hypertension[ICD10: I10] Andree Paris MD [facility] CPT-4: 98720 08/15/2018 68716 EST. PATIENT, LEVEL III Diagnosis: Dysphagia, pharyngoesophageal phase[ICD10: R13.14] Teresa Paris MD [facility] CPT-4: 89683 05/23/2018 ([id number]) 00369 EST. PATIENT, LEVEL IV Diagnosis: Essential (primary) hypertension[ICD10: I10] Diagnosis: Chronic pain syndrome[ICD10: G89.4] Diagnosis: 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 deficiency[ICD10: D51.0] Diagnosis: Other iron deficiency anemias[ICD10: D50.8] Diagnosis: Slow transit constipation[ICD10: K59.01] Andree Paris MD, [facility] CPT-4: 70411 05/03/2018 ([id number]) Miscellaneous no charge Diagnosis: Essential (primary) hypertension[ICD10: I10] Teresa Paris MD, [facility] CPT-4: 34233 01/31/2018 ([id number]) 92518 EST. PATIENT, LEVEL IV Diagnosis: Essential (primary) hypertension[ICD10: I10] Diagnosis: Chronic pain syndrome[ICD10: G89.4] Andree Paris MD, [facility] CPT- 4: 56508 01/30/2018 ([id number]) 84223 EST. PATIENT, LEVEL IV Diagnosis: Essential (primary) hypertension[ICD10: I10] Diagnosis: Chronic pain syndrome[ICD10: G89.4] Diagnosis: 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 deficiency[ICD10: D51.0] Diagnosis: Iron deficiency anemia, unspecified[ICD10: D50.9] Ana Paris MD, [facility] CPT-4: 90291 11/28/2017 58486 EST. PATIENT, LEVEL IV Diagnosis: Essential (primary) hypertension[ICD10: I10] Diagnosis: Slow transit constipation[ICD10: K59.01] Diagnosis: Chronic pain syndrome[ICD10: G89.4] Teresa Paris MD, [facility] CPT- 4: 75538 10/10/2017 48851 EST. PATIENT, LEVEL IV Diagnosis: 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 deficiency[ICD10: D51.0] Diagnosis: Essential (primary) hypertension[ICD10: I10] Diagnosis: Chronic pain syndrome[ICD10: G89.4] Teresa Paris MD, [facility] CPT- 4: 44699 09/26/2017 12696 EST. PATIENT, LEVEL III Diagnosis: Dysphagia, pharyngoesophageal phase[ICD10: R13.14] Teresa Paris MD, [facility] CPT-4: 32676 08/16/2017 ([id number]) 34607 EST. PATIENT, LEVEL IV Diagnosis: Essential (primary) hypertension[ICD10: I10] Diagnosis: Chronic pain syndrome[ICD10: G89.4] Diagnosis: 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 deficiency[ICD10: D51.0] Diagnosis: Iron deficiency anemia, unspecified[ICD10: D50.9] Diagnosis: Dysphagia, pharyngoesophageal phase[ICD10: R13.14] Ana Paris MD, [facility] CPT-4: 60753 07/18/2017 ([id number]) 58437 EST. PATIENT, LEVEL III Diagnosis: Essential (primary) hypertension[ICD10: I10] Diagnosis: Chronic pain syndrome[ICD10: G89.4] Diagnosis: 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 deficiency[ICD10: D51.0] Ana Paris MD, [facility] CPT-4: 45962 05/16/2017 ([id number]) 00334 EST. PATIENT, LEVEL III Diagnosis: Essential (primary) hypertension[ICD10: I10] Diagnosis: Chronic pain syndrome[ICD10: G89.4] Diagnosis: 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 deficiency[ICD10: D51.0] Ana Paris MD, [facility] CPT-4: 14276 03/14/2017 ([id number]) 74741 EST. PATIENT, LEVEL III Diagnosis: Cough[ICD10: R05] Diagnosis: Acute bronchitis, unspecified[ICD10: J20.9] Diagnosis: Chronic pain syndrome[ICD10: G89.4] Diagnosis: 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 deficiency[ICD10: D51.0] Ana Paris MD, [facility] CPT-4: 57694 01/12/2017 ([id number]) 21899 EST. PATIENT, LEVEL III Diagnosis: Essential (primary) hypertension[ICD10: I10] Diagnosis: Chronic pain syndrome[ICD10: G89.4] Ana Paris MD, [facility] CPT-4: 30645 12/08/2016 ([id number]) 39114 EST. PATIENT, LEVEL III Diagnosis: Essential (primary) hypertension[ICD10: I10] Ana Paris MD, [facility] CPT-4: 41445 11/03/2016 ([id number]) 37185 EST. PATIENT, LEVEL III Diagnosis: Essential (primary) hypertension[ICD10: I10] Ana Paris MD, [facility] CPT-4: 47441 10/06/2016 ([id number]) 05560 EST. PATIENT, LEVEL III Diagnosis: Essential (primary) hypertension[ICD10: I10] Ana Paris MD, [facility] CPT-4: 38032 09/06/2016 ([id number]) 13787 EST. PATIENT, LEVEL III Diagnosis: Essential (primary) hypertension[ICD10: I10] Ana Paris MD, [facility] CPT-4: 33573 08/23/2016 ([id number]) OFFICE VISIT, NEW - LEVEL 4 Diagnosis: Noninfective gastroenteritis and colitis, unspecified[ICD10: K52.9] Diagnosis: 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 deficiency[ICD10: D51.0] Diagnosis: Iron deficiency anemia, unspecified[ICD10: D50.9] Diagnosis: Chalazion left upper eyelid[ICD10: H00.14] Diagnosis: Elevated blood-pressure reading, without diagnosis of hypertension[ICD10: R03.0] [facility] CPT-4: 96670 04/26/2016 Plan of Care Planned Activity Notes Codes Status Date Patient Education: Patient Medication Summary Completed 11/29/2018 [...] of over-medication. 11/19/2018 Appointment: Andree Paris WPtel: [phone] [facility] (15 min) Moderate 11/19/2018 Patient Education: Patient [...] his amlodipine 08/15/2018 [phone] ([facility]) Moderate 08/15/2018 Patient Education: Patient [...] 05/23/2018 [phone] ([facility]) Moderate 05/23/2018 Patient Education: [...] management. 05/03/2018 [facility]ment[phone] ([facility] min) Moderate 05/03/2018 Patient Education: Patient [...] understands the consequences of over-medication. 01/30/2018 Appointment: [place] [phone] (15 min) Moderate 01/30/2018 Patient Education: Patient [...] concerns. 12/18/2017 App[facility]ment: [phone] [facility] - Annual Wellness Visit 12/18/2017 Patient [...] labs 11/28/2017 Appointment: [phone] (30 min) Complex 11/28/2017 Patient Education: [...] this regimen. 10/10/2017 App[facility]ment: [phone] (30 min) Complex 10/10/2017 Patient Education: Patient [...] Bardales WPtel: [facility]5 [facility] (30 min) Complex 09/26/2017 Patient Education: Patient Medication Summary Completed 09/26/2017 Appointment: Teresa Bardales WPtel: [phone] (30 min) Complex 09/19/2017 Referral: External, Ordering Provider Referral Appointment Confirmed 08/17/2017 Visit Plan: Dysphagia - worsening since yesterday - will refer to Dr. Harper for possible EGD - pt is to notify clinic if symptoms do not improve, if they worsen, or with any acute changes, questions, or concerns. 08/16/2017 Appointment: Teresa Bardales WPtel: [phone] [facility] (30 min) Complex 08/16/2017 Patient Education: Patient Medication Summary Completed 08/16/2017 Care Plan: Referral Order SNOMED-CT : [id number] Pending 08/16/2017 Appointment: Injection 08/10/2017 Patient Education: [...] first 07/18/2017 Appointment: Ana Pedraza WPtel: [phone] [phone] (30 min) Complex 07/18/2017 Patient Education: [...] over-medication. 05/16/2017 Appointment: Ana Pedraza WPtel: [phone] [phone] (30 min) Complex 05/16/2017 Patient Education: Patient [...] of over-medication. 03/14/2017 Appointment: Ana Pedraza WPtel: [phone] [phone] (30 min) Complex 03/14/2017 Patient Education: Patient [...] 01/12/2017 Appointment: Ana Pedraza WPtel: [facility] (30 min) Complex 01/12/2017 Patient Education: [...] care surrogate. 12/12/2016 Appointment: [phone] [phone] [facility] - Annual Wellness Visit 12/12/2016 Patient [...] over-medication. 12/08/2016 Appointment: Ana Pedraza WPtel: [phone] [phone] (30 min) Complex 12/08/2016 Patient Education: Patient [...] Ana Pedraza WPtel: [phone] (30 min) Complex 11/03/2016 Patient Education: Patient [...] Pedraza WPtel: [phone] [phone] (30 min) Complex 10/06/2016 Patient Education: Patient [...] acute concerns. 09/06/2016 Appointment: Ana Pedraza WPtel: [address] [place], [place] [phone] [place] [address] (30 min) Complex 09/06/2016 Patient Education: Patient [...] acute concerns. 08/23/2016 Appointment: Ana Pedraza WPtel: [address] [place], [place] [phone] [place] [address] (15 min) Moderate 08/23/2016 Patient Education: Patient [...] Appointment: Andree Paris WPtel: [facility]66[facility] New Patient 04/26/2016 Patient Education: Patient Medication Summary Completed 04/26/2016 Referral: External, Ordering Provider Referral Initiated Instructions Comment OKAY TO STAY OF THE WATER PILL [...] the consequences of over-medication. Iron def-check labs if your blood pressure is at or [...] improved - continue with current management. . Hypertension - uncontrolled - the patient's [...]
[2019-02-13] MEDS ORDERED: ceFAZolin 2 GM/50 ML NS 50 ML IV ONE (09:30)
--- OUTSIDE RECORDS SUMMARY | 2019-02-13 09:31 | XMS REPORT | CCD ---
Author Author [facility] Organization [facility] Address [address] [place] [address] Phone Care Team Providers [employer] Supervisor Name Role Phone PP Unavailable CCM Unavailable Summary Purpose Interface Exchange Insurance Providers Payer name Policy type / Coverage type Covered libertarian ID Effective Begin Date Effective End Date WPS Medicare Part B Medicare Part B [id number] Unknown Unknown FOR LIFE WPS Medicare Part B [id number] Unknown Unknown Family history Father Diagnosis Age At Onset No Known Diseases N/A Mother Diagnosis Age At Onset No Known Diseases N/A Social History Social History Element Codes Description Effective Dates Marital status Unknown 04/26/2016 Number of children Unknown 3 04/26/2016 Employment Unknown Retired 04/26/[address]: 0858429 Former smoker Quit 1969 04/26/[address]: 919309 Currently drinks alcohol 04/26/2016 Has the patient [...] ICD-10: D51.0 Active 07/26/2016 Unknown Encounter for immunization ICD-9: V03.89 ICD-10: [...] 281.0 ICD-10: D51.0 07/26/2016 Active Encounter for immunization ICD-9: V03.89 ICD-10: [...] morphine ER 30 mg tablet,extended release RxNorm: 663171 1 Tablet(s) PO daily 10/29/2018 11/27/2018 Active cyanocobalamin (vit B-12) 1,000 mcg/mL injection solution RxNorm: 032395 Milliliter(s) Inj 10/29/2018 10/29/2018 Inactive cyanocobalamin (vit B-12) 1,000 mcg/mL injection solution RxNorm: 272955 Milliliter(s) Inj 09/28/2018 09/28/2018 Inactive morphine ER 30 mg tablet,extended release RxNorm: 516333 1 Tablet(s) PO daily 09/28/2018 10/27/2018 Inactive morphine ER 30 mg tablet,extended release RxNorm: 020820 1 Tablet(s) PO daily 08/30/2018 09/27/2018 Inactive cyanocobalamin (vit B-12) 1,000 mcg/mL injection solution RxNorm: 529748 Milliliter(s) Inj 08/30/2018 08/30/2018 Inactive cyanocobalamin (vit B-12) 1,000 mcg/mL injection solution RxNorm: 887670 Milliliter(s) Inj 07/31/2018 07/31/2018 Inactive morphine ER 30 mg tablet,extended release RxNorm: 525142 1 Tablet(s) PO daily 07/31/2018 08/29/2018 Inactive amlodipine 5 mg tablet RxNorm: 398296 1 Tablet(s) PO QPM 07/11/2018 01/06/2019 Active cyanocobalamin (vit B-12) 1,000 mcg/mL injection solution RxNorm: 845550 1 Milliliter(s) Inj 07/02/2018 07/02/2018 Inactive morphine ER 30 mg tablet,extended release RxNorm: 960438 1 Tablet(s) PO daily 07/02/2018 07/30/2018 Inactive morphine ER 30 mg tablet,extended release RxNorm: 638007 1 Tablet(s) PO daily 05/31/2018 06/29/2018 Inactive cyanocobalamin (vit B-12) 1,000 mcg/mL injection solution RxNorm: 753193 Milliliter(s) Inj 05/31/2018 05/31/2018 Inactive Protonix 40 mg tablet,delayed release RxNorm: 270543 1 Tablet(s) PO daily 05/23/2018 06/21/2018 Inactive Carafate 1 gram tablet RxNorm: 436604 1 Tablet(s) PO AC & HS as needed 05/23/2018 06/21/2018 Inactive cyanocobalamin (vit B-12) 1,000 mcg/mL injection solution RxNorm: 761236 1 Milliliter(s) Inj 05/03/2018 05/03/2018 Inactive morphine ER 30 mg tablet,extended release RxNorm: 801770 1 Tablet(s) PO daily 04/04/2018 05/03/2018 Inactive cyanocobalamin (vit B-12) 1,000 mcg/mL injection solution RxNorm: 699107 1 Milliliter(s) Inj 04/04/2018 04/04/2018 Inactive cyanocobalamin (vit B-12) 1,000 mcg/mL injection solution RxNorm: 564668 1 Milliliter(s) Inj 03/05/2018 03/05/2018 Inactive morphine ER 30 mg tablet,extended release RxNorm: 493862 1 Tablet(s) PO daily 03/05/2018 04/03/2018 Inactive cyanocobalamin (vit B-12) 1,000 mcg/mL injection solution RxNorm: 883724 1 Milliliter(s) Inj 01/30/2018 01/30/2018 Inactive cyanocobalamin (vit B-12) 1,000 mcg/mL injection solution RxNorm: 154550 1 Milliliter(s) Inj 01/01/2018 01/01/2018 Inactive morphine ER 30 mg tablet,extended release RxNorm: 344154 1 Tablet(s) PO daily 01/01/2018 01/30/2018 Inactive lisinopril 20 mg tablet RxNorm: 415482 1 Tablet(s) PO BID 12/18/2017 12/12/2018 Active amlodipine 5 mg tablet RxNorm: 343691 1 Tablet(s) PO QPM 12/18/2017 06/15/2018 Inactive cyanocobalamin (vit B-12) 1,000 mcg/mL injection solution RxNorm: 794250 1 Milliliter(s) Inj 11/28/2017 11/28/2017 Inactive morphine ER 30 mg tablet,extended release RxNorm: 116167 1 Tablet(s) PO daily 11/28/2017 12/27/2017 Inactive morphine ER 30 mg tablet,extended release RxNorm: 462864 1 Tablet(s) PO daily 11/09/2017 11/27/2017 Inactive cyanocobalamin (vit B-12) 1,000 mcg/mL injection solution RxNorm: 748407 1 Milliliter(s) Inj 10/24/2017 10/24/2017 Inactive morphine ER 30 mg tablet,extended release RxNorm: 012878 1 Tablet(s) PO daily 10/10/2017 11/08/2017 Inactive hydrochlorothiazide 25 mg tablet RxNorm: 284269 1 Tablet(s) PO daily 10/10/2017 11/08/2017 Inactive cyanocobalamin (vit B-12) 1,000 mcg/mL injection solution RxNorm: 223202 1 Milliliter(s) Inj 09/26/2017 09/26/2017 Inactive hydrochlorothiazide 12.5 mg tablet RxNorm: 620438 1 Tablet(s) PO daily 09/26/2017 10/25/2017 Inactive morphine ER 30 mg tablet,extended release RxNorm: 547806 1 Tablet(s) PO daily 09/12/2017 10/09/2017 Inactive cyanocobalamin (vit B-12) 1,000 mcg/mL injection solution RxNorm: 140795 1 Milliliter(s) Inj 08/10/2017 08/10/2017 Inactive morphine ER 30 mg tablet,extended release RxNorm: 167973 1 Tablet(s) PO daily 08/10/2017 09/08/2017 Inactive Vitamin B-12 1,000 mcg/mL injection solution RxNorm: 903828 1 Milliliter(s) Inj month 07/21/2017 No Stop Date Active B12 INJECTIONS MONTHLY cyanocobalamin (vit B-12) 1,000 mcg/mL injection solution RxNorm: 835595 1 Milliliter(s) Inj 07/18/2017 07/18/2017 Inactive morphine ER 30 mg tablet,extended release RxNorm: 753932 1 Tablet(s) PO daily 07/13/2017 08/09/2017 Inactive morphine ER 30 mg tablet,extended release RxNorm: 784571 1 Tablet(s) PO daily 06/15/2017 07/12/2017 Inactive cyanocobalamin (vit B-12) 1,000 mcg/mL injection solution RxNorm: 952453 1 Milliliter(s) Inj 05/16/2017 05/16/2017 Inactive morphine ER 30 mg tablet,extended release RxNorm: 142527 1 Tablet(s) PO daily 04/13/2017 05/12/2017 Inactive cyanocobalamin (vit B-12) 1,000 mcg/mL injection solution RxNorm: 089014 1 Milliliter(s) Inj 03/14/2017 03/14/2017 Inactive morphine ER 30 mg tablet,extended release RxNorm: 103937 1 Tablet(s) PO daily 03/14/2017 04/12/2017 Inactive morphine ER 30 mg tablet,extended release RxNorm: 950053 1 Tablet(s) PO daily 02/13/2017 03/13/2017 Inactive Kenalog 40 mg/mL suspension for injection RxNorm: 9575450 1 Milliliter(s) Inj 01/12/2017 01/12/2017 Inactive cyanocobalamin (vit B-12) 1,000 mcg/mL injection solution RxNorm: 692945 1 Milliliter(s) Inj 01/12/2017 01/12/2017 Inactive Zithromax Z-[place] 250 mg tablet RxNorm: 916123 1 Tablet(s) PO UD 01/12/2017 01/16/2017 Inactive ceftriaxone 500 mg solution for injection RxNorm: 7159969 1 Milliliter(s) Inj 01/12/2017 01/12/2017 Inactive Vitamin B-12 1,000 mcg/mL injection solution RxNorm: 537771 1 Milliliter(s) Inj EVERY OTHER MONTH 01/04/2017 07/20/2017 Inactive lisinopril 20 mg tablet RxNorm: 557242 1 Tablet(s) PO BID 01/02/2017 12/17/2017 Inactive lisinopril 20 mg tablet RxNorm: 154219 1 Tablet(s) PO BID 12/12/2016 01/01/2017 Inactive morphine ER 30 mg tablet,extended release RxNorm: 979456 1 Tablet(s) PO daily 12/08/2016 01/06/2017 Inactive lisinopril 20 mg tablet RxNorm: 140939 1 Tablet(s) PO BID 11/03/2016 12/11/2016 Inactive morphine ER 30 mg tablet,extended release RxNorm: 501960 1 Tablet(s) PO daily 11/03/2016 12/02/2016 Inactive cyanocobalamin (vit B-12) 1,000 mcg/mL injection solution RxNorm: 613936 1 Milliliter(s) Inj 10/27/2016 10/27/2016 Inactive lisinopril 10 mg tablet RxNorm: 127891 1 Tablet(s) PO BID 10/06/2016 11/02/2016 Inactive lisinopril 10 mg tablet RxNorm: 324532 1 Tablet(s) PO daily 09/06/2016 10/05/2016 Inactive morphine ER 30 mg tablet,extended release RxNorm: 339454 1 Tablet(s) PO daily 08/18/2016 09/16/2016 Inactive cyanocobalamin (vit B-12) 1,000 mcg/mL injection solution RxNorm: 136039 Milliliter(s) Inj 07/27/2016 07/27/2016 Inactive morphine ER 30 mg tablet,extended release RxNorm: 529442 1 Tablet(s) PO daily 07/21/2016 08/17/2016 Inactive morphine ER 30 mg tablet,extended release RxNorm: 189285 1 Tablet(s) PO daily 06/20/2016 07/19/2016 Inactive morphine ER 30 mg tablet,extended release RxNorm: 941693 1 Tablet(s) PO daily 05/20/2016 06/19/2016 Inactive cyanocobalamin (vit B-12) 1,000 mcg/mL injection solution RxNorm: 615673 1 Milliliter(s) Inj 04/26/2016 04/26/2016 Inactive gentamicin 0.3 % eye drops RxNorm: 625947 2 Drop(s) OPH Q4H 04/26/2016 05/02/2016 Inactive Vitamin B-12 1,000 mcg/mL injection solution RxNorm: 186247 1 Milliliter(s) Inj EVERY 3 MONTHS No Start Date 01/03/2017 Inactive Claritin 10 mg tablet RxNorm: 000731 1 Tablet(s) PO daily No Start Date 07/17/2017 Inactive Venofer intravenous RxNorm: 88908 intravenous No Start Date 08/14/2018 Inactive morphine ER 30 mg tablet,extended release RxNorm: 037537 1 Tablet(s) PO daily No Start Date 04/25/2016 Inactive Medication Administered Medication Codes Instructions Start Date Status cyanocobalamin (vit B-12) 1,000 mcg/mL injection solution RxNorm: 903406 Milliliter 10/29/2018 No longer Active cyanocobalamin (vit B-12) 1,000 mcg/mL injection solution RxNorm: 109954 Milliliter 09/28/2018 No longer Active cyanocobalamin (vit B-12) 1,000 mcg/mL injection solution RxNorm: 610074 Milliliter 08/30/2018 No longer Active cyanocobalamin (vit B-12) 1,000 mcg/mL injection solution RxNorm: 493310 Milliliter 07/31/2018 No longer Active cyanocobalamin (vit B-12) 1,000 mcg/mL injection solution RxNorm: 319518 1Milliliter 07/02/2018 No longer Active cyanocobalamin (vit B-12) 1,000 mcg/mL injection solution RxNorm: 297406 Milliliter 05/31/2018 No longer Active cyanocobalamin (vit B-12) 1,000 mcg/mL injection solution RxNorm: 856909 1Milliliter 05/03/2018 No longer Active cyanocobalamin (vit B-12) 1,000 mcg/mL injection solution RxNorm: 689651 1Milliliter 04/04/2018 No longer Active cyanocobalamin (vit B-12) 1,000 mcg/mL injection solution RxNorm: 509223 1Milliliter 03/05/2018 No longer Active cyanocobalamin (vit B-12) 1,000 mcg/mL injection solution RxNorm: 403341 1Milliliter 01/30/2018 No longer Active cyanocobalamin (vit B-12) 1,000 mcg/mL injection solution RxNorm: 452211 1Milliliter 01/01/2018 No longer Active cyanocobalamin (vit B-12) 1,000 mcg/mL injection solution RxNorm: 340610 1Milliliter 11/28/2017 No longer Active cyanocobalamin (vit B-12) 1,000 mcg/mL injection solution RxNorm: 378395 1Milliliter 10/24/2017 No longer Active cyanocobalamin (vit B-12) 1,000 mcg/mL injection solution RxNorm: 526761 1Milliliter 09/26/2017 No longer Active cyanocobalamin (vit B-12) 1,000 mcg/mL injection solution RxNorm: 448399 1Milliliter 08/10/2017 No longer Active cyanocobalamin (vit B-12) 1,000 mcg/mL injection solution RxNorm: 873994 1Milliliter 07/18/2017 No longer Active cyanocobalamin (vit B-12) 1,000 mcg/mL injection solution RxNorm: 252697 1Milliliter 05/16/2017 No longer Active cyanocobalamin (vit B-12) 1,000 mcg/mL injection solution RxNorm: 412272 1Milliliter 03/14/2017 No longer Active Kenalog 40 mg/mL suspension for injection RxNorm: 0446114 illiliter 01/12/2017 No longer Active ceftriaxone 500 mg solution for injection RxNorm: 5632845 1Milliliter 01/12/2017 No longer Active cyanocobalamin (vit B-12) 1,000 mcg/mL injection solution RxNorm: 949929 1Milliliter 01/12/2017 No longer Active cyanocobalamin (vit B-12) 1,000 mcg/mL injection solution RxNorm: 935600 1Milliliter 10/27/2016 No longer Active cyanocobalamin (vit B-12) 1,000 mcg/mL injection solution RxNorm: 600818 Milliliter 07/27/2016 No longer Active cyanocobalamin (vit B-12) 1,000 mcg/mL injection solution RxNorm: 034026 1Milliliter 04/26/2016 No longer Active Immunizations Vaccine Codes Date Status Influenza CVX: 141 05/31/2018 completed Pneumococcal (Adult) CVX: 133 12/12/2016 completed Assessments Condition Codes Effective Dates Essential (primary) hypertension ICD-10: I10 ICD-9: 401.1 11/19/2018 Chronic pain syndrome ICD-10: G89.4 ICD-9: 338.4 11/19/2018 Epigastric pain ICD-10: R10.13 ICD-9: 789.06 11/19/2018 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-10: D51.0 ICD-9: 281.0 10/29/2018 Encounter for immunization ICD-10: Z23 ICD-9: V03.89 [...] Code Item Item Code Result Date B12 Shc859 B12 453.00 pg/ml 11/15/2018 Comp Metabolic Tbe578 NA 139 mEq/L 11/15/2018 Comp Metabolic Ohv238 K 4.5 mEq/L 11/15/2018 Comp Metabolic Pun761 CL 105 mEq/L 11/15/2018 Comp Metabolic Lia637 CO2 28.0 mEq/L 11/15/2018 Comp Metabolic Lzj313 ANION GAP 11 11/15/2018 Comp Metabolic Hxg221 GLUCOSE 96 mg/dL 11/15/2018 Comp Metabolic Hlh403 Creat 1.1 mg/dL 11/15/2018 Comp Metabolic Lma285 eGFR 68 ml/min/1.73m2 11/15/2018 Comp Metabolic Qsz496 BUN 18 mg/dL 11/15/2018 Comp Metabolic Nch155 B/C Ratio 16.5 Ratio 11/15/2018 Comp Metabolic Usl150 CALCIUM 9.3 mg/dL 11/15/2018 Comp Metabolic Qkj111 ALK PHOS 72 U/L 11/15/2018 Comp Metabolic Nsq352 AST(SGOT) 21 U/L 11/15/2018 Comp Metabolic Nwb768 ALT(SGPT) 13 U/L 11/15/2018 Comp Metabolic Zfy414 BILI T 0.8 mg/dL 11/15/2018 Comp Metabolic App107 ALBUMIN 3.9 g/dL 11/15/2018 Comp Metabolic Wvm569 TPRO 6.5 g/dL 11/15/2018 Comp Metabolic Aoi012 GLOB 2.6 g/dL 11/15/2018 Comp Metabolic Nhi054 A/G Ratio 1.5 Ratio 11/15/2018 Comp Metabolic Xfl876 Osmo 279 mOsmo 11/15/2018 Tsh Ord6 TSH [...] 33.1 pg 11/15/2018 Cbc With Differential Ord2 Sterling% 12.6 % 11/15/2018 Cbc With Differential Ord2 [...] 3.56 K/ul 11/15/2018 Cbc With Differential Ord2 Sterling ABS# 1.2 K/ul 11/15/2018 Cbc With Differential [...] 32.9 pg 11/28/2017 Cbc With Differential Ord2 Sterling% 12.6 % 11/28/2017 Cbc With Differential Ord2 [...] 2.87 K/ul 11/28/2017 Cbc With Differential Ord2 Sterling ABS# 1.1 K/ul 11/28/2017 Cbc With Differential Ord2 Eos ABS# 0.3 K/ul 11/28/2017 Cbc With Differential Ord2 Baso ABS# 0.0 K/ul 11/28/2017 B12 Iap452 B12 >1500.00 pg/ml 11/28/2017 Comp Metabolic Spi492 NA 139 mEq/L 11/28/2017 Comp Metabolic Doe707 K 5.2 mEq/L 11/28/2017 Comp Metabolic Aiw669 CL 106 mEq/L 11/28/2017 Comp Metabolic Xdd025 CO2 28.0 mEq/L 11/28/2017 Comp Metabolic Oai391 ANION GAP 10 11/28/2017 Comp Metabolic Rlr911 GLUCOSE 89 mg/dL 11/28/2017 Comp Metabolic Mbb493 Creat 1.1 mg/dL 11/28/2017 Comp Metabolic Cfk301 eGFR 66 ml/min/1.73m2 11/28/2017 Comp Metabolic Qce409 BUN 18 mg/dL 11/28/2017 Comp Metabolic Ztv675 B/C Ratio 16.1 Ratio 11/28/2017 Comp Metabolic Umm223 CALCIUM 9.2 mg/dL 11/28/2017 Comp Metabolic Dge054 ALK PHOS 89 U/L 11/28/2017 Comp Metabolic Ngm314 AST(SGOT) 22 U/L 11/28/2017 Comp Metabolic Ian483 ALT(SGPT) 15 U/L 11/28/2017 Comp Metabolic Gjh957 BILI T 0.6 mg/dL 11/28/2017 Comp Metabolic Qoq505 ALBUMIN 3.9 g/dL 11/28/2017 Comp Metabolic Xvm791 TPRO 6.5 g/dL 11/28/2017 Comp Metabolic Adx068 GLOB 2.6 g/dL 11/28/2017 Comp Metabolic Iau772 A/G Ratio 1.5 Ratio 11/28/2017 Comp Metabolic Vda472 Osmo 279 mOsmo 11/28/2017 Ferritin Ord22 FERRITIN [...] 33.7 pg 07/18/2017 Cbc With Differential Ord2 Sterling% 12.3 % 07/18/2017 Cbc With Differential Ord2 [...] 2.90 K/ul 07/18/2017 Cbc With Differential Ord2 Sterling ABS# 1.1 K/ul 07/18/2017 Cbc With Differential Ord2 Eos ABS# 0.2 K/ul 07/18/2017 Cbc With Differential Ord2 Baso ABS# 0.0 K/ul 07/18/2017 Comp Metabolic Jvf525 NA 140 mEq/L 07/18/2017 Comp Metabolic Pti993 K 4.6 mEq/L 07/18/2017 Comp Metabolic Nxh439 CL 105 mEq/L 07/18/2017 Comp Metabolic Xaj685 CO2 29.0 mEq/L 07/18/2017 Comp Metabolic Gsc315 ANION GAP 11 07/18/2017 Comp Metabolic Bsa529 GLUCOSE 96 mg/dL 07/18/2017 Comp Metabolic Sbj636 Creat 1.0 mg/dL 07/18/2017 Comp Metabolic Kub996 eGFR 73 ml/min/1.73m2 07/18/2017 Comp Metabolic Mah548 BUN 12 mg/dL 07/18/2017 Comp Metabolic Pgd066 B/C Ratio 11.7 Ratio 07/18/2017 Comp Metabolic Uef541 CALCIUM 9.2 mg/dL 07/18/2017 Comp Metabolic Gng915 ALK PHOS 74 U/L 07/18/2017 Comp Metabolic Lqy950 AST(SGOT) 29 U/L 07/18/2017 Comp Metabolic Tjk954 ALT(SGPT) 16 U/L 07/18/2017 Comp Metabolic Lsd486 BILI T 0.7 mg/dL 07/18/2017 Comp Metabolic Dma227 ALBUMIN 3.7 g/dL 07/18/2017 Comp Metabolic Eak270 TPRO 6.5 g/dL 07/18/2017 Comp Metabolic Eqb835 GLOB 2.8 g/dL 07/18/2017 Comp Metabolic Sve856 A/G Ratio 1.3 Ratio 07/18/2017 Comp Metabolic Wtk274 Osmo 279 mOsmo 07/18/2017 Iron Ord72 Iron 114 ug/dl 07/18/2017 B12 Vxb154 B12 233.00 pg/ml 07/18/2017 Tsh Ord6 hTSH [...] 33.3 pg 12/13/2016 Cbc With Differential Ord2 Sterling% 17.9 % 12/13/2016 Cbc With Differential Ord2 [...] 2.71 K/ul 12/13/2016 Cbc With Differential Ord2 [place] ABS# 1.7 K/ul 12/13/2016 Cbc With Differential Ord2 Eos ABS# 0.3 K/ul 12/13/2016 Cbc With Differential Ord2 Baso ABS# 0.0 K/ul 12/13/2016 Comp Metabolic Vjm493 NA 136 mEq/L 12/13/2016 Comp Metabolic Vsi810 K 4.7 mEq/L 12/13/2016 Comp Metabolic Pvp345 CL 102 mEq/L 12/13/2016 Comp Metabolic Iqd066 CO2 26.0 mEq/L 12/13/2016 Comp Metabolic Wzj261 ANION GAP 13 12/13/2016 Comp Metabolic Qpj549 GLUCOSE 87 mg/dL 12/13/2016 Comp Metabolic Ksc522 Creat 0.9 mg/dL 12/13/2016 Comp Metabolic Gpy871 eGFR 83 ml/min/1.73m2 12/13/2016 Comp Metabolic Auf246 BUN 17 mg/dL 12/13/2016 Comp Metabolic Png987 B/C Ratio 18.3 Ratio 12/13/2016 Comp Metabolic Vua879 CALCIUM 9.1 mg/dL 12/13/2016 Comp Metabolic Snx117 ALK PHOS 90 U/L 12/13/2016 Comp Metabolic Fjh950 AST(SGOT) 22 U/L 12/13/2016 Comp Metabolic Myt571 ALT(SGPT) 15 U/L 12/13/2016 Comp Metabolic Rxx999 BILI T 0.8 mg/dL 12/13/2016 Comp Metabolic Rsn376 ALBUMIN 3.6 g/dL 12/13/2016 Comp Metabolic Maj741 TPRO 6.4 g/dL 12/13/2016 Comp Metabolic Nlk358 GLOB 2.9 g/dL 12/13/2016 Comp Metabolic Dek283 A/G Ratio 1.2 Ratio 12/13/2016 Comp Metabolic Ess797 Osmo 273 mOsmo 12/13/2016 Lipid Ord30 CHOL 182 mg/dL 12/13/2016 Lipid Ord30 HDL 64.0 mg/dl 12/13/2016 Lipid Ord30 TRIG 62 mg/dL 12/13/2016 Lipid Ord30 LDL 106 mg/dL 12/13/2016 Lipid Ord30 C/HDL 2.8 Ratio 12/13/2016 Ferritin Ord22 FERRITIN 434.7 ng/mL 12/13/2016 B12 Lnk303 B12 247.00 pg/ml 12/13/2016 Tibc Ord40 Iron [...] 33.7 pg 04/27/2016 Cbc With Differential Ord2 Sterling% 13.7 % 04/27/2016 Cbc With Differential Ord2 [...] 3.22 K/ul 04/27/2016 Cbc With Differential Ord2 [place] ABS# 1.2 K/ul 04/27/2016 Cbc With Differential Ord2 Eos ABS# 0.3 K/ul 04/27/2016 Cbc With Differential Ord2 Baso ABS# 0.0 K/ul 04/27/2016 Comp Metabolic Baq521 NA 138 mEq/L 04/27/2016 Comp Metabolic Lhl972 K 4.3 mEq/L 04/27/2016 Comp Metabolic Gxm847 CL 104 mEq/L 04/27/2016 Comp Metabolic Vso424 CO2 30.0 mEq/L 04/27/2016 Comp Metabolic Oaz521 ANION GAP 8 04/27/2016 Comp Metabolic Cxm403 GLUCOSE 87 mg/dL 04/27/2016 Comp Metabolic Inh743 Creat 0.9 mg/dL 04/27/2016 Comp Metabolic Csa161 eGFR 82 ml/min/1.73m2 04/27/2016 Comp Metabolic Ejs632 BUN 13 mg/dL 04/27/2016 Comp Metabolic Xua709 B/C Ratio 13.8 Ratio 04/27/2016 Comp Metabolic Eik403 CALCIUM 9.0 mg/dL 04/27/2016 Comp Metabolic Die035 ALK PHOS 62 U/L 04/27/2016 Comp Metabolic Sif393 AST(SGOT) 24 U/L 04/27/2016 Comp Metabolic Dyo321 ALT(SGPT) 15 U/L 04/27/2016 Comp Metabolic Zpd012 BILI T 0.7 mg/dL 04/27/2016 Comp Metabolic Vgk899 ALBUMIN 3.6 g/dL 04/27/2016 Comp Metabolic Ktq549 TPRO 6.1 g/dL 04/27/2016 Comp Metabolic Ria645 GLOB 2.5 g/dL 04/27/2016 Comp Metabolic Eel104 A/G Ratio 1.4 Ratio 04/27/2016 Comp Metabolic Cly213 Osmo 275 mOsmo 04/27/2016 B12 Des328 B12 >1500.00 pg/ml 04/27/2016 Iron Ord72 Iron [...] developed 10/10/2017 None Full Exam - General 1995 Constitutional general appearance Overall: in no acute distress 10/10/2017 None Full Exam - General 1995 Constitutional general appearance Overall: well nourished 10/10/2017 [...] Procedure Codes Date THER/PROPH/DIAG INJ SC/IM CPT-4: 66784 10/29/2018 VITAMIN B12 INJECTION CPT- 4: J3420 10/29/2018 THER/PROPH/DIAG INJ SC/IM CPT-4: 20210 09/28/2018 VITAMIN B12 INJECTION CPT- 4: J3420 09/28/2018 THER/PROPH/DIAG INJ SC/IM CPT-4: 47890 08/30/2018 VITAMIN B12 INJECTION CPT- 4: J3420 08/30/2018 VITAMIN B12 INJECTION CPT- 4: J3420 07/31/2018 THER/PROPH/DIAG INJ SC/IM CPT-4: 82184 07/31/2018 THER/PROPH/DIAG INJ SC/IM CPT-4: 47779 07/02/2018 VITAMIN B12 INJECTION CPT- 4: J3420 07/02/2018 THER/PROPH/DIAG INJ SC/IM CPT-4: 60590 05/31/2018 ADMIN INFLUENZA VIRUS VAC CPT-4: G0008 05/31/2018 VITAMIN B12 INJECTION CPT- 4: J3420 05/31/2018 FLU VACC PRSV FREE INC ANTIG Formatting Model/CDA Sections, Assigned to/Mary Grace Rosado CPT-4: 36443Jslxdpo 05/31/2018 VITAMIN B12 INJECTION CPT- 4: J3420 05/03/2018 THER/PROPH/DIAG INJ SC/IM CPT-4: 94383 05/03/2018 THER/PROPH/DIAG INJ SC/IM CPT-4: 25692 04/04/2018 VITAMIN B12 INJECTION CPT- 4: J3420 04/04/2018 THER/PROPH/DIAG INJ SC/IM CPT-4: 15313 03/05/2018 VITAMIN B12 INJECTION CPT- 4: J3420 03/05/2018 VITAMIN B12 INJECTION CPT- 4: J3420 01/30/2018 THER/PROPH/DIAG INJ SC/IM CPT-4: 88729 01/30/2018 THER/PROPH/DIAG INJ SC/IM CPT-4: 68058 01/01/2018 VITAMIN B12 INJECTION CPT- 4: J3420 01/01/2018 PPPS, SUBSEQ VISIT CPT- 4: G0439 12/18/2017 THER/PROPH/DIAG INJ SC/IM CPT-4: 00104 11/28/2017 VITAMIN B12 INJECTION CPT- 4: J3420 11/28/2017 THER/PROPH/DIAG INJ SC/IM CPT-4: 59961 10/24/2017 VITAMIN B12 INJECTION CPT- 4: J3420 10/24/2017 THER/PROPH/DIAG INJ SC/IM CPT-4: 97480 09/26/2017 VITAMIN B12 INJECTION CPT- 4: J3420 09/26/2017 THER/PROPH/DIAG INJ SC/IM CPT-4: 63891 08/10/2017 VITAMIN B12 INJECTION CPT- 4: J3420 08/10/2017 THER/PROPH/DIAG INJ SC/IM CPT-4: 38921 07/18/2017 VITAMIN B12 INJECTION CPT- 4: J3420 07/18/2017 THER/PROPH/DIAG INJ SC/IM CPT-4: 46460 05/16/2017 VITAMIN B12 INJECTION CPT- 4: J3420 05/16/2017 THER/PROPH/DIAG INJ SC/IM CPT-4: 89653 03/14/2017 VITAMIN B12 INJECTION CPT- 4: J3420 03/14/2017 TRIAMCINOLONE ACET INJ NOS CPT-4: J3301 01/12/2017 ROCEPHIN, PER 250 MG CPT- 4: J0696 01/12/2017 VITAMIN B12 INJECTION CPT- 4: J3420 01/12/2017 THER/PROPH/DIAG INJ SC/IM CPT-4: 19757 01/12/2017 PPPS, SUBSEQ VISIT CPT- 4: G0439 12/12/2016 PNEUMOCOCCAL VACC [address]: 18684717 CPT-4: 41512 12/12/2016 ADMIN PNEUMOCOCCAL VACCINE SNOMED CT: 01882989 CPT-4: G0009 12/12/2016 THER/PROPH/DIAG INJ SC/IM CPT-4: 74291 10/27/2016 VITAMIN B12 INJECTION CPT- 4: J3420 10/27/2016 THER/PROPH/DIAG INJ SC/IM CPT-4: 45128 07/27/2016 VITAMIN B12 INJECTION CPT- 4: J3420 07/27/2016 THER/PROPH/DIAG INJ SC/IM CPT-4: 29612 04/26/2016 VITAMIN B12 INJECTION CPT- 4: J3420 04/26/2016 Vital Signs Date Vital 11/19/2018 Blood Pressure 1: 128/76 Code: 8480-6 BMI: 25.8 Code: 80842-2 Heart Rate 1: 76 bpm Height: 5'7" SpO2: 98% Weight: 165 lbs 08/15/2018 Blood Pressure 1: 144/66 Code: 8480-6 BMI: 25.1 Code: 02600-0 Heart Rate 1: 75 bpm Height: 5'7" SpO2: 98% Weight: 160 lbs 05/23/2018 Blood Pressure 1: 158/64 Code: 8480-6 BMI: 24.7 Code: 50177-5 Heart Rate 1: 76 bpm Height: 5'7" SpO2: 96% Temperature: 36.7 (C) / 98.1 (F) Weight: 158 lbs 05/03/2018 Blood Pressure 1: 122/72 Code: 8480-6 BMI: 25.1 Code: 02670-9 Heart Rate 1: 74 bpm Height: 5'7" SpO2: 97% Weight: 160 lbs 01/31/2018 Blood Pressure 1: 137/77 Code: 8480-6 Blood Pressure 2: 138/68 Code: 8480-6 Heart Rate 1: 67 bpm SpO2: 98% 01/30/2018 Blood Pressure 1: 138/66 Code: 8480-6 BMI: 25.1 Code: 32271-0 Heart Rate 1: 76 bpm Height: 5'7" SpO2: 94% Weight: 160 lbs 12/18/2017 Blood Pressure 1: 152/88 Code: 8480-6 BMI: 25.8 Code: 34769-3 Heart Rate 1: 68 bpm Height: 5'7" SpO2: 96% Weight: 165 lbs 11/28/2017 Blood Pressure 1: 150/76 Code: 8480-6 BMI: 25.2 Code: 41846-7 Heart Rate 1: 78 bpm Height: 5'7" SpO2: 98% Weight: 161 lbs 10/10/2017 Blood Pressure 1: 156/76 Code: 8480-6 BMI: 24.7 Code: 17872-6 Heart Rate 1: 71 bpm Height: 5'7" SpO2: 98% Weight: 158 lbs 09/26/2017 Blood Pressure 1: 162/82 Code: 8480-6 BMI: 24.7 Code: 61118-0 Heart Rate 1: 69 bpm Height: 5'7" SpO2: 99% Weight: 158 lbs 08/16/2017 Blood Pressure 1: 154/82 Code: 8480-6 BMI: 24.1 Code: 40255-6 Heart Rate 1: 58 bpm Height: 5'7" SpO2: 96% Weight: 154 lbs 07/18/2017 Blood Pressure 1: 152/88 Code: 8480-6 BMI: 25.2 Code: 99744-9 Heart Rate 1: 72 bpm Height: 5'7" SpO2: 98% Weight: 161 lbs 05/16/2017 Blood Pressure 1: 136/78 Code: 8480-6 BMI: 24.8 Code: 68474-2 Heart Rate 1: 71 bpm Height: 5'7" SpO2: 96% Weight: 158 lbs 8 oz 03/14/2017 Blood Pressure 1: 142/74 Code: 8480-6 BMI: 23.8 Code: 62026-1 Heart Rate 1: 69 bpm Height: 5'7" SpO2: 94% Weight: 152 lbs 01/12/2017 Blood Pressure 1: 156/90 Code: 8480-6 BMI: 23.4 Code: 90930-0 Heart Rate 1: 90 bpm Height: 5'7" SpO2: 97% Temperature: 37.4 (C) / 99.3 (F) Weight: 149 lbs 8 oz 12/12/2016 Blood Pressure 1: 140/78 Code: 8480-6 BMI: 24.3 Code: 10397-9 Heart Rate 1: 73 bpm Height: 5'7" SpO2: 96% Waist Measure (cm): 90 cm Weight: 155 lbs 12/08/2016 Blood Pressure 1: 148/84 Code: 8480-6 BMI: 24.3 Code: 16246-6 Heart Rate 1: 80 bpm Height: 5'7" SpO2: 96% Weight: 155 lbs 11/03/2016 Blood Pressure 1: 156/84 Code: 8480-6 Blood Pressure 2: 155/94 Code: 8480-6 BMI: 24.3 Code: 89863-7 Heart Rate 1: 81 bpm Height: 5'7" SpO2: 98% Weight: 155 lbs 10/06/2016 Blood Pressure 1: 175/95 Code: 8480-6 Heart Rate 1: 77 bpm Respiratory Rate: 16 bpm SpO2: 98% Temperature: 36.4 (C) / 97.5 (F) Weight: 157 lbs 09/06/2016 Blood Pressure 1: 136/80 Code: 8480-6 BMI: 24.1 Code: 10166-8 Heart Rate 1: 82 bpm Height: 5'8" SpO2: 97% Weight: 156 lbs 08/23/2016 Blood Pressure 1: 160/80 Code: 8480-6 BMI: 24.4 Code: 77551-6 Heart Rate 1: 88 bpm Height: 5'8" SpO2: 95% Weight: 158 lbs 04/26/2016 Blood Pressure 1: 156/74 Code: 8480-6 BMI: 24.5 Code: 19469-2 Heart Rate 1: 70 bpm Height: 5'8" [...] data Encounters Encounter Performer Location Codes Date ([id number]) 86879 EST. PATIENT, LEVEL IV Diagnosis: Essential (primary) hypertension[ICD10: I10] Diagnosis: Chronic pain syndrome[ICD10: G89.4] Diagnosis: Epigastric pain[ICD10: R10.13] [facility] CPT-4: 88992 11/19/2018 ([id number]) 77249 EST. PATIENT, LEVEL III Diagnosis: Essential (primary) hypertension[ICD10: I10] Andree Paris MD, [facility] CPT-4: 53868 08/15/2018 [id number] EST. PATIENT, LEVEL III Diagnosis: Dysphagia, pharyngoesophageal phase[ICD10: R13.14] Teresa Paris MD, [facility] CPT-4: 61878 05/23/2018 ([id number]) 73188 EST. PATIENT, LEVEL IV Diagnosis: Essential (primary) hypertension[ICD10: I10] Diagnosis: Chronic pain syndrome[ICD10: G89.4] Diagnosis: 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 deficiency[ICD10: D51.0] Diagnosis: Other iron deficiency anemias[ICD10: D50.8] Diagnosis: Slow transit constipation[ICD10: K59.01] Andree Paris MD, [facility] CPT-4: 57247 05/03/2018 ([id number]) Miscellaneous no charge Diagnosis: Essential (primary) hypertension[ICD10: I10] Teresa Paris MD, [facility] CPT-4: 88806 01/31/2018 ([id number]) 56929 EST. PATIENT, LEVEL IV Diagnosis: Essential (primary) hypertension[ICD10: I10] Diagnosis: Chronic pain syndrome[ICD10: G89.4] Andree Paris MD, [facility] CPT- 4: 84530 01/30/2018 ([id number]) 22091 EST. PATIENT, LEVEL IV Diagnosis: Essential (primary) hypertension[ICD10: I10] Diagnosis: Chronic pain syndrome[ICD10: G89.4] Diagnosis: 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 deficiency[ICD10: D51.0] Diagnosis: Iron deficiency anemia, unspecified[ICD10: D50.9] Ana Paris MD, [facility] CPT-4: 91417 11/28/2017 [id number] EST. PATIENT, LEVEL IV Diagnosis: Essential (primary) hypertension[ICD10: I10] Diagnosis: Slow transit constipation[ICD10: K59.01] Diagnosis: Chronic pain syndrome[ICD10: G89.4] Teresa Paris MD, [facility] CPT- 4: 68499 10/10/2017 77212 EST. PATIENT, LEVEL IV Diagnosis: 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 deficiency[ICD10: D51.0] Diagnosis: Essential (primary) hypertension[ICD10: I10] Diagnosis: Chronic pain syndrome[ICD10: G89.4] Teresa Paris MD, [facility] CPT- 4: 17034 09/26/2017 37190 EST. PATIENT, LEVEL III Diagnosis: Dysphagia, pharyngoesophageal phase[ICD10: R13.14] Teresa Paris MD, [facility] CPT-4: 96303 08/16/2017 ([id number]) 77625 EST. PATIENT, LEVEL IV Diagnosis: Essential (primary) hypertension[ICD10: I10] Diagnosis: Chronic pain syndrome[ICD10: G89.4] Diagnosis: 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 deficiency[ICD10: D51.0] Diagnosis: Iron deficiency anemia, unspecified[ICD10: D50.9] Diagnosis: Dysphagia, pharyngoesophageal phase[ICD10: R13.14] Ana Paris MD, [facility] CPT-4: 13459 07/18/2017 ([id number]) 81681 EST. PATIENT, LEVEL III Diagnosis: Essential (primary) hypertension[ICD10: I10] Diagnosis: Chronic pain syndrome[ICD10: G89.4] Diagnosis: 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 deficiency[ICD10: D51.0] Ana Paris MD, [facility] CPT-4: 70274 05/16/2017 ([id number]) 64420 EST. PATIENT, LEVEL III Diagnosis: Essential (primary) hypertension[ICD10: I10] Diagnosis: Chronic pain syndrome[ICD10: G89.4] Diagnosis: 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 deficiency[ICD10: D51.0] Ana Paris MD, [facility] CPT-4: 63915 03/14/2017 ([id number]) 28521 EST. PATIENT, LEVEL III Diagnosis: Cough[ICD10: R05] Diagnosis: Acute bronchitis, unspecified[ICD10: J20.9] Diagnosis: Chronic pain syndrome[ICD10: G89.4] Diagnosis: 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 deficiency[ICD10: D51.0] Ana Paris MD, [facility] CPT-4: 57019 01/12/2017 ([id number]) 11993 EST. PATIENT, LEVEL III Diagnosis: Essential (primary) hypertension[ICD10: I10] Diagnosis: Chronic pain syndrome[ICD10: G89.4] Ana Paris MD, [facility] CPT-4: 53973 12/08/2016 ([id number]) 28507 EST. PATIENT, LEVEL III Diagnosis: Essential (primary) hypertension[ICD10: I10] Ana Paris MD, [facility] CPT-4: 75854 11/03/2016 ([id number]) 69636 EST. PATIENT, LEVEL III Diagnosis: Essential (primary) hypertension[ICD10: I10] Ana Paris MD, [facility] CPT-4: 02603 10/06/2016 ([id number]) 08053 EST. PATIENT, LEVEL III Diagnosis: Essential (primary) hypertension[ICD10: I10] Ana Paris MD, [facility] CPT-4: 64485 09/06/2016 ([id number]) 94963 EST. PATIENT, LEVEL III Diagnosis: Essential (primary) hypertension[ICD10: I10] Ana Paris MD, [facility] CPT-4: 71428 08/23/2016 ([id number]) OFFICE VISIT, NEW - LEVEL 4 Diagnosis: Noninfective gastroenteritis and colitis, unspecified[ICD10: K52.9] Diagnosis: 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 deficiency[ICD10: D51.0] Diagnosis: Iron deficiency anemia, unspecified[ICD10: D50.9] Diagnosis: Chalazion left upper eyelid[ICD10: H00.14] Diagnosis: Elevated blood-pressure reading, without diagnosis of hypertension[ICD10: R03.0] Andree Paris MD, [facility] CPT-4: 55618 04/26/2016 Plan of Care Planned Activity Notes [...] and understands the consequences of over-medication. 11/19/2018 Patient Education: Patient Medication Summary Completed [...] his amlodipine 08/15/2018 [phone] ([facility] min) Moderate 08/15/2018 Patient Education: [...] treatment plan. 05/23/2018 Appointment: Teresa Bard[facility] [phone] [facility] [place] [facility] (15 min) Moderate 05/23/2018 Patient Education: Patient [...] current management. 05/03/2018 Appointment: Andree Paris WPtel: [phone] [facility] (15 min) Moderate 05/03/2018 Patient Education: Patient [...] of over-medication. 01/30/2018 [facility]ment[phone] [place] (15 min) Moderate 01/30/2018 Patient Education: Patient [...] concerns. 12/18/2017 Appointment: Ana Pedraza WPtel: [phone] [facility] [address] [facility] - Annual Wellness Visit 12/18/2017 Patient [...] labs 11/28/2017 Appointment: Ana Pedraza WPtel: [phone] [facility] [address] [place] (30 min) Complex 11/28/2017 Patient Education: Patient [...] regimen. 10/10/2017 Appointment: Teresa Bardales WPtel: [phone] [facility] [address] [place] (30 min) Complex 10/10/2017 Patient Education: Patient [...] of over-medication. 09/26/2017 Appointment: Teresa Bardales WPtel: [phone] [facility] [address] (30 min) Complex 09/26/2017 Patient Education: Patient Medication Summary Completed 09/26/2017 Appointment: Teresa Bardales WPtel: [facility][note 3]6 [facility] (30 min) Complex 09/19/2017 Referral: External, Ordering Provider Referral Appointment Confirmed 08/17/2017 Visit Plan: Dysphagia - worsening since yesterday - will refer to Dr. Harper for possible EGD - pt is to notify clinic if symptoms do not improve, if they worsen, or with any acute changes, questions, or concerns. 08/16/2017 Appointment: Teresa Bardales WPtel: [facility][note 3]6 [facility] (30 min) Complex 08/16/2017 Patient Education: Patient Medication Summary Completed 08/16/2017 Care Plan: Referral Order SNOMED-CT : [id number] Pending 08/16/2017 Appointment: Injection 08/10/2017 Patient Education: [...] today first 07/18/2017 Appointment: Ana Pedraza WPtel: [facility][note 3]9 [facility] [place] [facility] [place] (30 min) Complex 07/18/2017 Patient Education: Patient [...] of over-medication. 05/16/2017 Appointment: Ana Pedraza WPtel: [facility][note 3][address] (30 min) Complex 05/16/2017 Patient Education: Patient [...] of over-medication. 03/14/2017 Appointment: Ana Pedraza WPtel: [facility][note 3][address] (30 min) Complex 03/14/2017 Patient Education: [...] of over-medication. 01/12/2017 Appointment: Ana Pedraza WPtel: [facility][note 3]5 [facility] [place] [address] (30 min) Complex 01/12/2017 Patient Education: Patient [...] care surrogate. 12/12/2016 Appointment: Ana Pedraza WPtel: [address] [place] [address] - Annual Wellness Visit 12/12/2016 Patient Education: [...] of over-medication. 12/08/2016 Appointment: Ana Pedraza WPtel: [facility][note 3]3 [facility] [place] [address] (30 min) Complex 12/08/2016 Patient Education: Patient [...] concerns. 11/03/2016 Appointment: Ana Pedraza WPtel: [phone] [phone] (30 min) Complex 11/03/2016 Patient Education: [...] acute concerns. 10/06/2016 Appointment: Ana Pedraza WPtel: [facility][note 3]5 [phone] (30 min) Complex 10/06/2016 Patient Education: [...] acute concerns. 09/06/2016 Appointment: Ana Pedraza WPtel: [phone] [phone] (30 min) Complex 09/06/2016 Patient Education: [...] acute concerns. 08/23/2016 Appointment: Ana Pedraza WPtel: [facility][note 3]5 [facility] (15 min) Moderate 08/23/2016 Patient Education: [...] for gentamycin. 04/26/2016 Appointment: Andree Paris WPtel: [facility][note 3]5 [facility] New Patient 04/26/2016 Patient Education: Patient Medication [...] her DOPA paperwork for health care surrogate. PREVDENIS 13 RECOMMEND SHINGLES VACCINE FASTING LABS . [...]
--- OUTSIDE RECORDS SUMMARY | 2019-02-13 09:34 | XMS REPORT | CCD ---
Author Author Andree Paris Organization Andree Paris MD, [facility] Address [address] [place] [address] Phone Care Team Providers Care Transportation Solutions Manager Name Role Phone PP Unavailable CCM Unavailable Summary Purpose Interface Exchange Insurance Providers Payer name Policy type / Coverage type Covered libertarian ID Effective Begin Date Effective End Date WPS Medicare Part B Medicare Part B [id number] Unknown Unknown FOR LIFE WPS Medicare Part B [id number] Unknown Unknown Family history Father Diagnosis Age At Onset No Known Diseases N/A Mother Diagnosis Age At Onset No Known Diseases N/A Social History Social History Element Codes Description Effective Dates Marital status Unknown 04/26/2016 Number of children Unknown 3 04/26/2016 Employment Unknown Retired 04/26/[address]: 0146721 Former smoker Quit 1969 04/26/[address]: 891087 Currently drinks alcohol 04/26/2016 Has the patient [...] ICD-9: 787.24 ICD-10: R13.14 Active 07/18/2017 Unknown Chronic pain syndrome ICD- 9: 338.4 ICD-10: G89.4 Active 12/08/2016 Unknown Iron deficiency anemia, unspecified ICD-9: 280.9 [...] phase ICD-9: 787.24 ICD-10: R13.14 07/18/2017 Active Chronic pain syndrome ICD- 9: 338.4 ICD-10: G89.4 12/08/2016 Active Iron deficiency anemia, unspecified ICD-9: 280.9 [...] morphine ER 30 mg tablet,extended release RxNorm: 946123 1 Tablet(s) PO daily 10/29/2018 11/27/2018 Active cyanocobalamin (vit B-12) 1,000 mcg/mL injection solution RxNorm: 271946 Milliliter(s) Inj 10/29/2018 10/29/2018 Inactive cyanocobalamin (vit B-12) 1,000 mcg/mL injection solution RxNorm: 697728 Milliliter(s) Inj 09/28/2018 09/28/2018 Inactive morphine ER 30 mg tablet,extended release RxNorm: 959674 1 Tablet(s) PO daily 09/28/2018 10/27/2018 Inactive morphine ER 30 mg tablet,extended release RxNorm: 508152 1 Tablet(s) PO daily 08/30/2018 09/27/2018 Inactive cyanocobalamin (vit B-12) 1,000 mcg/mL injection solution RxNorm: 057974 Milliliter(s) Inj 08/30/2018 08/30/2018 Inactive cyanocobalamin (vit B-12) 1,000 mcg/mL injection solution RxNorm: 786411 Milliliter(s) Inj 07/31/2018 07/31/2018 Inactive morphine ER 30 mg tablet,extended release RxNorm: 506326 1 Tablet(s) PO daily 07/31/2018 08/29/2018 Inactive amlodipine 5 mg tablet RxNorm: 823390 1 Tablet(s) PO QPM 07/11/2018 01/06/2019 Active cyanocobalamin (vit B-12) 1,000 mcg/mL injection solution RxNorm: 606260 1 Milliliter(s) Inj 07/02/2018 07/02/2018 Inactive morphine ER 30 mg tablet,extended release RxNorm: 972819 1 Tablet(s) PO daily 07/02/2018 07/30/2018 Inactive morphine ER 30 mg tablet,extended release RxNorm: 161957 1 Tablet(s) PO daily 05/31/2018 06/29/2018 Inactive cyanocobalamin (vit B-12) 1,000 mcg/mL injection solution RxNorm: 743726 Milliliter(s) Inj 05/31/2018 05/31/2018 Inactive Protonix 40 mg tablet,delayed release RxNorm: 795806 1 Tablet(s) PO daily 05/23/2018 06/21/2018 Inactive Carafate 1 gram tablet RxNorm: 866206 1 Tablet(s) PO AC & HS as needed 05/23/2018 06/21/2018 Inactive cyanocobalamin (vit B-12) 1,000 mcg/mL injection solution RxNorm: 551051 1 Milliliter(s) Inj 05/03/2018 05/03/2018 Inactive morphine ER 30 mg tablet,extended release RxNorm: 114568 1 Tablet(s) PO daily 04/04/2018 05/03/2018 Inactive cyanocobalamin (vit B-12) 1,000 mcg/mL injection solution RxNorm: 123574 1 Milliliter(s) Inj 04/04/2018 04/04/2018 Inactive cyanocobalamin (vit B-12) 1,000 mcg/mL injection solution RxNorm: 625948 1 Milliliter(s) Inj 03/05/2018 03/05/2018 Inactive morphine ER 30 mg tablet,extended release RxNorm: 717124 1 Tablet(s) PO daily 03/05/2018 04/03/2018 Inactive cyanocobalamin (vit B-12) 1,000 mcg/mL injection solution RxNorm: 994310 1 Milliliter(s) Inj 01/30/2018 01/30/2018 Inactive cyanocobalamin (vit B-12) 1,000 mcg/mL injection solution RxNorm: 473050 1 Milliliter(s) Inj 01/01/2018 01/01/2018 Inactive morphine ER 30 mg tablet,extended release RxNorm: 174223 1 Tablet(s) PO daily 01/01/2018 01/30/2018 Inactive lisinopril 20 mg tablet RxNorm: 917821 1 Tablet(s) PO BID 12/18/2017 12/12/2018 Active amlodipine 5 mg tablet RxNorm: 595958 1 Tablet(s) PO QPM 12/18/2017 06/15/2018 Inactive cyanocobalamin (vit B-12) 1,000 mcg/mL injection solution RxNorm: 101954 1 Milliliter(s) Inj 11/28/2017 11/28/2017 Inactive morphine ER 30 mg tablet,extended release RxNorm: 728571 1 Tablet(s) PO daily 11/28/2017 12/27/2017 Inactive morphine ER 30 mg tablet,extended release RxNorm: 081265 1 Tablet(s) PO daily 11/09/2017 11/27/2017 Inactive cyanocobalamin (vit B-12) 1,000 mcg/mL injection solution RxNorm: 001455 1 Milliliter(s) Inj 10/24/2017 10/24/2017 Inactive morphine ER 30 mg tablet,extended release RxNorm: 937568 1 Tablet(s) PO daily 10/10/2017 11/08/2017 Inactive hydrochlorothiazide 25 mg tablet RxNorm: 198221 1 Tablet(s) PO daily 10/10/2017 11/08/2017 Inactive cyanocobalamin (vit B-12) 1,000 mcg/mL injection solution RxNorm: 302398 1 Milliliter(s) Inj 09/26/2017 09/26/2017 Inactive hydrochlorothiazide 12.5 mg tablet RxNorm: 560668 1 Tablet(s) PO daily 09/26/2017 10/25/2017 Inactive morphine ER 30 mg tablet,extended release RxNorm: 777205 1 Tablet(s) PO daily 09/12/2017 10/09/2017 Inactive cyanocobalamin (vit B-12) 1,000 mcg/mL injection solution RxNorm: 016403 1 Milliliter(s) Inj 08/10/2017 08/10/2017 Inactive morphine ER 30 mg tablet,extended release RxNorm: 194887 1 Tablet(s) PO daily 08/10/2017 09/08/2017 Inactive Vitamin B-12 1,000 mcg/mL injection solution RxNorm: 810325 1 Milliliter(s) Inj month 07/21/2017 No Stop Date Active B12 INJECTIONS MONTHLY cyanocobalamin (vit B-12) 1,000 mcg/mL injection solution RxNorm: 962428 1 Milliliter(s) Inj 07/18/2017 07/18/2017 Inactive morphine ER 30 mg tablet,extended release RxNorm: 365429 1 Tablet(s) PO daily 07/13/2017 08/09/2017 Inactive morphine ER 30 mg tablet,extended release RxNorm: 268598 1 Tablet(s) PO daily 06/15/2017 07/12/2017 Inactive cyanocobalamin (vit B-12) 1,000 mcg/mL injection solution RxNorm: 411631 1 Milliliter(s) Inj 05/16/2017 05/16/2017 Inactive morphine ER 30 mg tablet,extended release RxNorm: 961631 1 Tablet(s) PO daily 04/13/2017 05/12/2017 Inactive cyanocobalamin (vit B-12) 1,000 mcg/mL injection solution RxNorm: 871044 1 Milliliter(s) Inj 03/14/2017 03/14/2017 Inactive morphine ER 30 mg tablet,extended release RxNorm: 053988 1 Tablet(s) PO daily 03/14/2017 04/12/2017 Inactive morphine ER 30 mg tablet,extended release RxNorm: 308723 1 Tablet(s) PO daily 02/13/2017 03/13/2017 Inactive Kenalog 40 mg/mL suspension for injection RxNorm: 2650336 1 Milliliter(s) Inj 01/12/2017 01/12/2017 Inactive cyanocobalamin (vit B-12) 1,000 mcg/mL injection solution RxNorm: 999133 1 Milliliter(s) Inj 01/12/2017 01/12/2017 Inactive Zithromax Z-[place] 250 mg tablet RxNorm: 902890 1 Tablet(s) PO UD 01/12/2017 01/16/2017 Inactive ceftriaxone 500 mg solution for injection RxNorm: 6526147 1 Milliliter(s) Inj 01/12/2017 01/12/2017 Inactive Vitamin B-12 1,000 mcg/mL injection solution RxNorm: 497155 1 Milliliter(s) Inj EVERY OTHER MONTH 01/04/2017 07/20/2017 Inactive lisinopril 20 mg tablet RxNorm: 485300 1 Tablet(s) PO BID 01/02/2017 12/17/2017 Inactive lisinopril 20 mg tablet RxNorm: 241518 1 Tablet(s) PO BID 12/12/2016 01/01/2017 Inactive morphine ER 30 mg tablet,extended release RxNorm: 679521 1 Tablet(s) PO daily 12/08/2016 01/06/2017 Inactive lisinopril 20 mg tablet RxNorm: 890392 1 Tablet(s) PO BID 11/03/2016 12/11/2016 Inactive morphine ER 30 mg tablet,extended release RxNorm: 709907 1 Tablet(s) PO daily 11/03/2016 12/02/2016 Inactive cyanocobalamin (vit B-12) 1,000 mcg/mL injection solution RxNorm: 052942 1 Milliliter(s) Inj 10/27/2016 10/27/2016 Inactive lisinopril 10 mg tablet RxNorm: 701388 1 Tablet(s) PO BID 10/06/2016 11/02/2016 Inactive lisinopril 10 mg tablet RxNorm: 745481 1 Tablet(s) PO daily 09/06/2016 10/05/2016 Inactive morphine ER 30 mg tablet,extended release RxNorm: 513118 1 Tablet(s) PO daily 08/18/2016 09/16/2016 Inactive cyanocobalamin (vit B-12) 1,000 mcg/mL injection solution RxNorm: 733611 Milliliter(s) Inj 07/27/2016 07/27/2016 Inactive morphine ER 30 mg tablet,extended release RxNorm: 488871 1 Tablet(s) PO daily 07/21/2016 08/17/2016 Inactive morphine ER 30 mg tablet,extended release RxNorm: 885848 1 Tablet(s) PO daily 06/20/2016 07/19/2016 Inactive morphine ER 30 mg tablet,extended release RxNorm: 400560 1 Tablet(s) PO daily 05/20/2016 06/19/2016 Inactive cyanocobalamin (vit B-12) 1,000 mcg/mL injection solution RxNorm: 661026 1 Milliliter(s) Inj 04/26/2016 04/26/2016 Inactive gentamicin 0.3 % eye drops RxNorm: 795546 2 Drop(s) OPH Q4H 04/26/2016 05/02/2016 Inactive Vitamin B-12 1,000 mcg/mL injection solution RxNorm: 840307 1 Milliliter(s) Inj EVERY 3 MONTHS No Start Date 01/03/2017 Inactive Claritin 10 mg tablet RxNorm: 421213 1 Tablet(s) PO daily No Start Date 07/17/2017 Inactive Venofer intravenous RxNorm: 47458 intravenous No Start Date 08/14/2018 Inactive morphine ER 30 mg tablet,extended release RxNorm: 929435 1 Tablet(s) PO daily No Start Date 04/25/2016 Inactive Medication Administered Medication Codes Instructions Start Date Status cyanocobalamin (vit B-12) 1,000 mcg/mL injection solution RxNorm: 181830 Milliliter 10/29/2018 No longer Active cyanocobalamin (vit B-12) 1,000 mcg/mL injection solution RxNorm: 598507 Milliliter 09/28/2018 No longer Active cyanocobalamin (vit B-12) 1,000 mcg/mL injection solution RxNorm: 305661 Milliliter 08/30/2018 No longer Active cyanocobalamin (vit B-12) 1,000 mcg/mL injection solution RxNorm: 004667 Milliliter 07/31/2018 No longer Active cyanocobalamin (vit B-12) 1,000 mcg/mL injection solution RxNorm: 071170 1Milliliter 07/02/2018 No longer Active cyanocobalamin (vit B-12) 1,000 mcg/mL injection solution RxNorm: 448380 Milliliter 05/31/2018 No longer Active cyanocobalamin (vit B-12) 1,000 mcg/mL injection solution RxNorm: 659344 1Milliliter 05/03/2018 No longer Active cyanocobalamin (vit B-12) 1,000 mcg/mL injection solution RxNorm: 401078 1Milliliter 04/04/2018 No longer Active cyanocobalamin (vit B-12) 1,000 mcg/mL injection solution RxNorm: 862997 1Milliliter 03/05/2018 No longer Active cyanocobalamin (vit B-12) 1,000 mcg/mL injection solution RxNorm: 273650 1Milliliter 01/30/2018 No longer Active cyanocobalamin (vit B-12) 1,000 mcg/mL injection solution RxNorm: 894297 1Milliliter 01/01/2018 No longer Active cyanocobalamin (vit B-12) 1,000 mcg/mL injection solution RxNorm: 106817 1Milliliter 11/28/2017 No longer Active cyanocobalamin (vit B-12) 1,000 mcg/mL injection solution RxNorm: 278923 1Milliliter 10/24/2017 No longer Active cyanocobalamin (vit B-12) 1,000 mcg/mL injection solution RxNorm: 971013 1Milliliter 09/26/2017 No longer Active cyanocobalamin (vit B-12) 1,000 mcg/mL injection solution RxNorm: 505058 1Milliliter 08/10/2017 No longer Active cyanocobalamin (vit B-12) 1,000 mcg/mL injection solution RxNorm: 118777 1Milliliter 07/18/2017 No longer Active cyanocobalamin (vit B-12) 1,000 mcg/mL injection solution RxNorm: 101818 1Milliliter 05/16/2017 No longer Active cyanocobalamin (vit B-12) 1,000 mcg/mL injection solution RxNorm: 004196 1Milliliter 03/14/2017 No longer Active Kenalog 40 mg/mL suspension for injection RxNorm: 1201218 1Milliliter 01/12/2017 No longer Active ceftriaxone 500 mg solution for injection RxNorm: 3380702 1Milliliter 01/12/2017 No longer Active cyanocobalamin (vit B-12) 1,000 mcg/mL injection solution RxNorm: 704529 1Milliliter 01/12/2017 No longer Active cyanocobalamin (vit B-12) 1,000 mcg/mL injection solution RxNorm: 384305 1Milliliter 10/27/2016 No longer Active cyanocobalamin (vit B-12) 1,000 mcg/mL injection solution RxNorm: 855763 Milliliter 07/27/2016 No longer Active cyanocobalamin (vit B-12) 1,000 mcg/mL injection solution RxNorm: 976743 1Milliliter 04/26/2016 No longer Active Immunizations Vaccine Codes Date Status Influenza CVX: 141 05/31/2018 completed Pneumococcal (Adult) CVX: 133 12/12/2016 completed Assessments Condition Codes Effective Dates 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-10: D51.0 ICD-9: 281.0 10/29/2018 Essential (primary) hypertension ICD-10: I10 ICD-9: 401.1 08/15/2018 Encounter for immunization ICD-10: Z23 ICD-9: V03.89 05/31/2018 Dysphagia, pharyngoesophageal phase ICD-10: R13.14 ICD-9: 787.24 05/23/2018 Slow transit constipation ICD-10: K59.01 ICD-9: 564.01 05/03/2018 Chronic pain syndrome ICD-10: G89.4 ICD-9: 338.4 05/03/2018 Other iron deficiency anemias ICD-10: D50.8 [...] Reason For Visit Effective Dates Notes hypertension 08/15/2018 sore throat 05/23/2018 hypertension 05/03/2018 [...] Observation Code Item Item Code Result Date Cbc With Differential Ord2 WBC 9.64 K/ul [...] 33.1 pg 11/15/2018 Cbc With Differential Ord2 [place]% 12.6 % 11/15/2018 Cbc With Differential Ord2 MCHC 33.0 pg 11/15/2018 Cbc With Differential Ord2 Eos% 5.0 % 11/15/2018 Cbc With Differential Ord2 Baso% 0.3 % 11/15/2018 Cbc With Differential Ord2 PLT 294 K/ul 11/15/2018 Cbc With Differential Ord2 Neut ABS# 4.36 K/ul 11/15/2018 Cbc With Differential Ord2 RDW 14.7 % 11/15/2018 Cbc With Differential Ord2 Lymph ABS# 3.56 K/ul 11/15/2018 Cbc With Differential Ord2 [place] ABS# 1.2 K/ul 11/15/2018 Cbc With Differential [...] 32.9 pg 11/28/2017 Cbc With Differential Ord2 [place]% 12.6 % 11/28/2017 Cbc With Differential Ord2 [...] 2.87 K/ul 11/28/2017 Cbc With Differential Ord2 [place] ABS# 1.1 K/ul 11/28/2017 Cbc With Differential Ord2 Eos ABS# 0.3 K/ul 11/28/2017 Cbc With Differential Ord2 Baso ABS# 0.0 K/ul 11/28/2017 B12 Hjy081 B12 >1500.00 pg/ml 11/28/2017 Comp Metabolic Ave883 NA 139 mEq/L 11/28/2017 Comp Metabolic Azt653 K 5.2 mEq/L 11/28/2017 Comp Metabolic Pwi592 CL 106 mEq/L 11/28/2017 Comp Metabolic Bnj175 CO2 28.0 mEq/L 11/28/2017 Comp Metabolic Jnm201 ANION GAP 10 11/28/2017 Comp Metabolic Kky833 GLUCOSE 89 mg/dL 11/28/2017 Comp Metabolic Unp664 Creat 1.1 mg/dL 11/28/2017 Comp Metabolic Jgg895 eGFR 66 ml/min/1.73m2 11/28/2017 Comp Metabolic Eek170 BUN 18 mg/dL 11/28/2017 Comp Metabolic Fjy230 B/C Ratio 16.1 Ratio 11/28/2017 Comp Metabolic Ahu125 CALCIUM 9.2 mg/dL 11/28/2017 Comp Metabolic Atf759 ALK PHOS 89 U/L 11/28/2017 Comp Metabolic Lri387 AST(SGOT) 22 U/L 11/28/2017 Comp Metabolic Mzt802 ALT(SGPT) 15 U/L 11/28/2017 Comp Metabolic Xxw712 BILI T 0.6 mg/dL 11/28/2017 Comp Metabolic Xrx839 ALBUMIN 3.9 g/dL 11/28/2017 Comp Metabolic Sjb472 TPRO 6.5 g/dL 11/28/2017 Comp Metabolic Trg250 GLOB 2.6 g/dL 11/28/2017 Comp Metabolic Ziw946 A/G Ratio 1.5 Ratio 11/28/2017 Comp Metabolic Sij167 Osmo 279 mOsmo 11/28/2017 Ferritin Ord22 FERRITIN [...] 33.7 pg 07/18/2017 Cbc With Differential Ord2 [place]% 12.3 % 07/18/2017 Cbc With Differential Ord2 [...] 2.90 K/ul 07/18/2017 Cbc With Differential Ord2 [place] ABS# 1.1 K/ul 07/18/2017 Cbc With Differential Ord2 Eos ABS# 0.2 K/ul 07/18/2017 Cbc With Differential Ord2 Baso ABS# 0.0 K/ul 07/18/2017 Comp Metabolic Dzl129 NA 140 mEq/L 07/18/2017 Comp Metabolic Tyq138 K 4.6 mEq/L 07/18/2017 Comp Metabolic Gfs180 CL 105 mEq/L 07/18/2017 Comp Metabolic Jel130 CO2 29.0 mEq/L 07/18/2017 Comp Metabolic Skq485 ANION GAP 11 07/18/2017 Comp Metabolic Htu598 GLUCOSE 96 mg/dL 07/18/2017 Comp Metabolic Phr905 Creat 1.0 mg/dL 07/18/2017 Comp Metabolic Htx497 eGFR 73 ml/min/1.73m2 07/18/2017 Comp Metabolic Bzy703 BUN 12 mg/dL 07/18/2017 Comp Metabolic Ane540 B/C Ratio 11.7 Ratio 07/18/2017 Comp Metabolic Gpw112 CALCIUM 9.2 mg/dL 07/18/2017 Comp Metabolic Ekf153 ALK PHOS 74 U/L 07/18/2017 Comp Metabolic Yco644 AST(SGOT) 29 U/L 07/18/2017 Comp Metabolic Tbt338 ALT(SGPT) 16 U/L 07/18/2017 Comp Metabolic Ghg131 BILI T 0.7 mg/dL 07/18/2017 Comp Metabolic Xgs803 ALBUMIN 3.7 g/dL 07/18/2017 Comp Metabolic Hbc898 TPRO 6.5 g/dL 07/18/2017 Comp Metabolic Vet434 GLOB 2.8 g/dL 07/18/2017 Comp Metabolic Naf753 A/G Ratio 1.3 Ratio 07/18/2017 Comp Metabolic Tzo585 Osmo 279 mOsmo 07/18/2017 Iron Ord72 Iron 114 ug/dl 07/18/2017 B12 Nps348 B12 233.00 pg/ml 07/18/2017 Tsh Ord6 hTSH [...] 33.3 pg 12/13/2016 Cbc With Differential Ord2 [place]% 17.9 % 12/13/2016 Cbc With Differential Ord2 [...] 2.71 K/ul 12/13/2016 Cbc With Differential Ord2 [place] ABS# 1.7 K/ul 12/13/2016 Cbc With Differential Ord2 Eos ABS# 0.3 K/ul 12/13/2016 Cbc With Differential Ord2 Baso ABS# 0.0 K/ul 12/13/2016 Comp Metabolic Pgm847 NA 136 mEq/L 12/13/2016 Comp Metabolic Emi892 K 4.7 mEq/L 12/13/2016 Comp Metabolic Qmv134 CL 102 mEq/L 12/13/2016 Comp Metabolic Yzk833 CO2 26.0 mEq/L 12/13/2016 Comp Metabolic Vdg825 ANION GAP 13 12/13/2016 Comp Metabolic Oeh582 GLUCOSE 87 mg/dL 12/13/2016 Comp Metabolic Yyz868 Creat 0.9 mg/dL 12/13/2016 Comp Metabolic Ams546 eGFR 83 ml/min/1.73m2 12/13/2016 Comp Metabolic Fbv425 BUN 17 mg/dL 12/13/2016 Comp Metabolic Tqp618 B/C Ratio 18.3 Ratio 12/13/2016 Comp Metabolic Bpd024 CALCIUM 9.1 mg/dL 12/13/2016 Comp Metabolic Kdi004 ALK PHOS 90 U/L 12/13/2016 Comp Metabolic Pyn100 AST(SGOT) 22 U/L 12/13/2016 Comp Metabolic Mae202 ALT(SGPT) 15 U/L 12/13/2016 Comp Metabolic Cot769 BILI T 0.8 mg/dL 12/13/2016 Comp Metabolic Zml104 ALBUMIN 3.6 g/dL 12/13/2016 Comp Metabolic Rcu899 TPRO 6.4 g/dL 12/13/2016 Comp Metabolic Qis028 GLOB 2.9 g/dL 12/13/2016 Comp Metabolic Kbk330 A/G Ratio 1.2 Ratio 12/13/2016 Comp Metabolic Uyy111 Osmo 273 mOsmo 12/13/2016 Lipid Ord30 CHOL 182 mg/dL 12/13/2016 Lipid Ord30 HDL 64.0 mg/dl 12/13/2016 Lipid Ord30 TRIG 62 mg/dL 12/13/2016 Lipid Ord30 LDL 106 mg/dL 12/13/2016 Lipid Ord30 C/HDL 2.8 Ratio 12/13/2016 Ferritin Ord22 FERRITIN 434.7 ng/mL 12/13/2016 B12 Buy885 B12 247.00 pg/ml 12/13/2016 Tibc Ord40 Iron [...] 33.7 pg 04/27/2016 Cbc With Differential Ord2 [place]% 13.7 % 04/27/2016 Cbc With Differential Ord2 [...] 3.22 K/ul 04/27/2016 Cbc With Differential Ord2 [place] ABS# 1.2 K/ul 04/27/2016 Cbc With Differential Ord2 Eos ABS# 0.3 K/ul 04/27/2016 Cbc With Differential Ord2 Baso ABS# 0.0 K/ul 04/27/2016 Comp Metabolic Sst115 NA 138 mEq/L 04/27/2016 Comp Metabolic Wdk102 K 4.3 mEq/L 04/27/2016 Comp Metabolic Aub232 CL 104 mEq/L 04/27/2016 Comp Metabolic Diq786 CO2 30.0 mEq/L 04/27/2016 Comp Metabolic Cqo455 ANION GAP 8 04/27/2016 Comp Metabolic Dka731 GLUCOSE 87 mg/dL 04/27/2016 Comp Metabolic Igp838 Creat 0.9 mg/dL 04/27/2016 Comp Metabolic Nco204 eGFR 82 ml/min/1.73m2 04/27/2016 Comp Metabolic Jyp713 BUN 13 mg/dL 04/27/2016 Comp Metabolic Xgf412 B/C Ratio 13.8 Ratio 04/27/2016 Comp Metabolic Tae515 CALCIUM 9.0 mg/dL 04/27/2016 Comp Metabolic Xzr407 ALK PHOS 62 U/L 04/27/2016 Comp Metabolic Jox908 AST(SGOT) 24 U/L 04/27/2016 Comp Metabolic Zez443 ALT(SGPT) 15 U/L 04/27/2016 Comp Metabolic Tji318 BILI T 0.7 mg/dL 04/27/2016 Comp Metabolic Imj691 ALBUMIN 3.6 g/dL 04/27/2016 Comp Metabolic Rem881 TPRO 6.1 g/dL 04/27/2016 Comp Metabolic Whh971 GLOB 2.5 g/dL 04/27/2016 Comp Metabolic Vrj525 A/G Ratio 1.4 Ratio 04/27/2016 Comp Metabolic Cfe020 Osmo 275 mOsmo 04/27/2016 B12 Dfn634 B12 >1500.00 pg/ml 04/27/2016 Iron Ord72 Iron 104 ug/dl 04/27/2016 Lipid Ord30 CHOL 178 mg/dL 04/27/2016 Lipid Ord30 HDL 70.0 mg/dl 04/27/2016 Lipid Ord30 TRIG 57 mg/dL 04/27/2016 Lipid Ord30 LDL 97 mg/dL 04/27/2016 Lipid Ord30 C/HDL 2.5 Ratio 04/27/2016 Tsh Ord6 hTSH II 1.89 uIU/mL 04/27/2016 Review of Systems System Result Effective Dates Constitutional No recent illness 08/15/2018 Constitutional No [...] lips 11/03/2016 None Full Exam - General 1995 Ears/Nose/Throat lips/teeth/gingiva Overall: normal dentition 11/03/2016 None [...] Procedure Codes Date THER/PROPH/DIAG INJ SC/IM CPT-4: 40590 10/29/2018 VITAMIN B12 INJECTION CPT- 4: J3420 10/29/2018 THER/PROPH/DIAG INJ SC/IM CPT-4: 56145 09/28/2018 VITAMIN B12 INJECTION CPT- 4: J3420 09/28/2018 THER/PROPH/DIAG INJ SC/IM CPT-4: 79386 08/30/2018 VITAMIN B12 INJECTION CPT- 4: J3420 08/30/2018 VITAMIN B12 INJECTION CPT- 4: J3420 07/31/2018 THER/PROPH/DIAG INJ SC/IM CPT-4: 47608 07/31/2018 THER/PROPH/DIAG INJ SC/IM CPT-4: 79744 07/02/2018 VITAMIN B12 INJECTION CPT- 4: J3420 07/02/2018 THER/PROPH/DIAG INJ SC/IM CPT-4: 61597 05/31/2018 ADMIN INFLUENZA VIRUS VAC CPT-4: G0008 05/31/2018 VITAMIN B12 INJECTION CPT- 4: J3420 05/31/2018 FLU VACC PRSV FREE INC ANTIG Formatting Model/CDA Sections, Assigned to/Mary Grace Rosado CPT-4: 28284Kiojgmi 05/31/2018 VITAMIN B12 INJECTION CPT- 4: J3420 05/03/2018 THER/PROPH/DIAG INJ SC/IM CPT-4: 40157 05/03/2018 THER/PROPH/DIAG INJ SC/IM CPT-4: 34304 04/04/2018 VITAMIN B12 INJECTION CPT- 4: J3420 04/04/2018 THER/PROPH/DIAG INJ SC/IM CPT-4: 69960 03/05/2018 VITAMIN B12 INJECTION CPT- 4: J3420 03/05/2018 VITAMIN B12 INJECTION CPT- 4: J3420 01/30/2018 THER/PROPH/DIAG INJ SC/IM CPT-4: 09440 01/30/2018 THER/PROPH/DIAG INJ SC/IM CPT-4: 00878 01/01/2018 VITAMIN B12 INJECTION CPT- 4: J3420 01/01/2018 PPPS, SUBSEQ VISIT CPT- 4: G0439 12/18/2017 THER/PROPH/DIAG INJ SC/IM CPT-4: 52555 11/28/2017 VITAMIN B12 INJECTION CPT- 4: J3420 11/28/2017 THER/PROPH/DIAG INJ SC/IM CPT-4: 01495 10/24/2017 VITAMIN B12 INJECTION CPT- 4: J3420 10/24/2017 THER/PROPH/DIAG INJ SC/IM CPT-4: 94852 09/26/2017 VITAMIN B12 INJECTION CPT- 4: J3420 09/26/2017 THER/PROPH/DIAG INJ SC/IM CPT-4: 16988 08/10/2017 VITAMIN B12 INJECTION CPT- 4: J3420 08/10/2017 THER/PROPH/DIAG INJ SC/IM CPT-4: 72486 07/18/2017 VITAMIN B12 INJECTION CPT- 4: J3420 07/18/2017 THER/PROPH/DIAG INJ SC/IM CPT-4: 50734 05/16/2017 VITAMIN B12 INJECTION CPT- 4: J3420 05/16/2017 THER/PROPH/DIAG INJ SC/IM CPT-4: 35557 03/14/2017 VITAMIN B12 INJECTION CPT- 4: J3420 03/14/2017 TRIAMCINOLONE ACET INJ NOS CPT-4: J3301 01/12/2017 ROCEPHIN, PER 250 MG CPT- 4: J0696 01/12/2017 VITAMIN B12 INJECTION CPT- 4: J3420 01/12/2017 THER/PROPH/DIAG INJ SC/IM CPT-4: 27916 01/12/2017 PPPS, SUBSEQ VISIT CPT- 4: G0439 12/12/2016 PNEUMOCOCCAL VACC [address]: 75306985 CPT-4: 81155 12/12/2016 ADMIN PNEUMOCOCCAL VACCINE SNOMED CT: 40383140 CPT-4: G0009 12/12/2016 THER/PROPH/DIAG INJ SC/IM CPT-4: 19181 10/27/2016 VITAMIN B12 INJECTION CPT- 4: J3420 10/27/2016 THER/PROPH/DIAG INJ SC/IM CPT-4: 44732 07/27/2016 VITAMIN B12 INJECTION CPT- 4: J3420 07/27/2016 THER/PROPH/DIAG INJ SC/IM CPT-4: 67650 04/26/2016 VITAMIN B12 INJECTION CPT- 4: J3420 04/26/2016 Vital Signs Date Vital 08/15/2018 Blood Pressure 1: 144/66 Code: 8480-6 BMI: 25.1 Code: 39270-1 Heart Rate 1: 75 bpm Height: 5'7" SpO2: 98% Weight: 160 lbs 05/23/2018 Blood Pressure 1: 158/64 Code: 8480-6 BMI: 24.7 Code: 89757-5 Heart Rate 1: 76 bpm Height: 5'7" SpO2: 96% Temperature: 36.7 (C) / 98.1 (F) Weight: 158 lbs 05/03/2018 Blood Pressure 1: 122/72 Code: 8480-6 BMI: 25.1 Code: 01101-2 Heart Rate 1: 74 bpm Height: 5'7" SpO2: 97% Weight: 160 lbs 01/31/2018 Blood Pressure 1: 137/77 Code: 8480-6 Blood Pressure 2: 138/68 Code: 8480-6 Heart Rate 1: 67 bpm SpO2: 98% 01/30/2018 Blood Pressure 1: 138/66 Code: 8480-6 BMI: 25.1 Code: 17245-3 Heart Rate 1: 76 bpm Height: 5'7" SpO2: 94% Weight: 160 lbs 12/18/2017 Blood Pressure 1: 152/88 Code: 8480-6 BMI: 25.8 Code: 03905-3 Heart Rate 1: 68 bpm Height: 5'7" SpO2: 96% Weight: 165 lbs 11/28/2017 Blood Pressure 1: 150/76 Code: 8480-6 BMI: 25.2 Code: 21151-2 Heart Rate 1: 78 bpm Height: 5'7" SpO2: 98% Weight: 161 lbs 10/10/2017 Blood Pressure 1: 156/76 Code: 8480-6 BMI: 24.7 Code: 91226-9 Heart Rate 1: 71 bpm Height: 5'7" SpO2: 98% Weight: 158 lbs 09/26/2017 Blood Pressure 1: 162/82 Code: 8480-6 BMI: 24.7 Code: 01170-1 Heart Rate 1: 69 bpm Height: 5'7" SpO2: 99% Weight: 158 lbs 08/16/2017 Blood Pressure 1: 154/82 Code: 8480-6 BMI: 24.1 Code: 15234-4 Heart Rate 1: 58 bpm Height: 5'7" SpO2: 96% Weight: 154 lbs 07/18/2017 Blood Pressure 1: 152/88 Code: 8480-6 BMI: 25.2 Code: 51675-5 Heart Rate 1: 72 bpm Height: 5'7" SpO2: 98% Weight: 161 lbs 05/16/2017 Blood Pressure 1: 136/78 Code: 8480-6 BMI: 24.8 Code: 45625-6 Heart Rate 1: 71 bpm Height: 5'7" SpO2: 96% Weight: 158 lbs 8 oz 03/14/2017 Blood Pressure 1: 142/74 Code: 8480-6 BMI: 23.8 Code: 04707-9 Heart Rate 1: 69 bpm Height: 5'7" SpO2: 94% Weight: 152 lbs 01/12/2017 Blood Pressure 1: 156/90 Code: 8480-6 BMI: 23.4 Code: 31002-4 Heart Rate 1: 90 bpm Height: 5'7" SpO2: 97% Temperature: 37.4 (C) / 99.3 (F) Weight: 149 lbs 8 oz 12/12/2016 Blood Pressure 1: 140/78 Code: 8480-6 BMI: 24.3 Code: 77826-7 Heart Rate 1: 73 bpm Height: 5'7" SpO2: 96% Waist Measure (cm): 90 cm Weight: 155 lbs 12/08/2016 Blood Pressure 1: 148/84 Code: 8480-6 BMI: 24.3 Code: 44493-6 Heart Rate 1: 80 bpm Height: 5'7" SpO2: 96% Weight: 155 lbs 11/03/2016 Blood Pressure 1: 156/84 Code: 8480-6 Blood Pressure 2: 155/94 Code: 8480-6 BMI: 24.3 Code: 59378-5 Heart Rate 1: 81 bpm Height: 5'7" SpO2: 98% Weight: 155 lbs 10/06/2016 Blood Pressure 1: 175/95 Code: 8480-6 Heart Rate 1: 77 bpm Respiratory Rate: 16 bpm SpO2: 98% Temperature: 36.4 (C) / 97.5 (F) Weight: 157 lbs 09/06/2016 Blood Pressure 1: 136/80 Code: 8480-6 BMI: 24.1 Code: 76505-5 Heart Rate 1: 82 bpm Height: 5'8" SpO2: 97% Weight: 156 lbs 08/23/2016 Blood Pressure 1: 160/80 Code: 8480-6 BMI: 24.4 Code: 22758-1 Heart Rate 1: 88 bpm Height: 5'8" SpO2: 95% Weight: 158 lbs 04/26/2016 Blood Pressure 1: 156/74 Code: 8480-6 BMI: 24.5 Code: 46274-8 Heart Rate 1: 70 bpm Height: 5'8" SpO2: 97% Weight: 159 lbs Functional Status No Functional Status data History of Present Illness Symptom Name Status Result Effective Date Notes Quality intermittent 08/15/2018 None Quality primary hypertension [...] Encounters Encounter Performer Location Codes Date ( [id number] EST. PATIENT, LEVEL III Diagnosis: Essential (primary) hypertension[ICD10: I10] [facility] CPT-4: 60108 08/15/2018 36476 EST. PATIENT, LEVEL III Diagnosis: Dysphagia, pharyngoesophageal phase[ICD10: R13.14] [facility] CPT-4: 47566 05/23/2018 [id number]) 39469 EST. PATIENT, LEVEL IV Diagnosis: Essential (primary) hypertension[ICD10: I10] Diagnosis: Chronic pain syndrome[ICD10: G89.4] Diagnosis: 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 deficiency[ICD10: D51.0] Diagnosis: Other iron deficiency anemias[ICD10: D50.8] Diagnosis: Slow transit constipation[ICD10: K59.01] Andree Paris MD, [facility] CPT-4: 35345 05/03/2018 ([id number]) Miscellaneous no charge Diagnosis: Essential (primary) hypertension[ICD10: I10] Teresa Paris MD, [facility] CPT-4: 39626 01/31/2018 ([id number]) 55368 EST. PATIENT, LEVEL IV Diagnosis: Essential (primary) hypertension[ICD10: I10] Diagnosis: Chronic pain syndrome[ICD10: G89.4] Andree Paris MD, [facility] CPT- 4: 80026 01/30/2018 ([id number]) 28919 EST. PATIENT, LEVEL IV Diagnosis: Essential (primary) hypertension[ICD10: I10] Diagnosis: Chronic pain syndrome[ICD10: G89.4] Diagnosis: 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 deficiency[ICD10: D51.0] Diagnosis: Iron deficiency anemia, unspecified[ICD10: D50.9] Ana Paris MD, [facility] CPT-4: 96495 11/28/2017 33506 EST. PATIENT, LEVEL IV Diagnosis: Essential (primary) hypertension[ICD10: I10] Diagnosis: Slow transit constipation[ICD10: K59.01] Diagnosis: Chronic pain syndrome[ICD10: G89.4] Teresa Paris MD, [facility] CPT- 4: 80458 10/10/2017 14850 EST. PATIENT, LEVEL IV Diagnosis: 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 deficiency[ICD10: D51.0] Diagnosis: Essential (primary) hypertension[ICD10: I10] Diagnosis: Chronic pain syndrome[ICD10: G89.4] Teresa Paris MD, [facility] CPT- 4: 63654 09/26/2017 61973 EST. PATIENT, LEVEL III Diagnosis: Dysphagia, pharyngoesophageal phase[ICD10: R13.14] Teresa Paris MD, [facility] CPT-4: 61204 08/16/2017 ([id number]) 90764 EST. PATIENT, LEVEL IV Diagnosis: Essential (primary) hypertension[ICD10: I10] Diagnosis: Chronic pain syndrome[ICD10: G89.4] Diagnosis: 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 deficiency[ICD10: D51.0] Diagnosis: Iron deficiency anemia, unspecified[ICD10: D50.9] Diagnosis: Dysphagia, pharyngoesophageal phase[ICD10: R13.14] Ana Paris MD, [facility] CPT-4: 51281 07/18/2017 ([id number]) 08657 EST. PATIENT, LEVEL III Diagnosis: Essential (primary) hypertension[ICD10: I10] Diagnosis: Chronic pain syndrome[ICD10: G89.4] Diagnosis: 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 deficiency[ICD10: D51.0] Ana Paris MD, [facility] CPT-4: 65853 05/16/2017 ([id number]) 45993 EST. PATIENT, LEVEL III Diagnosis: Essential (primary) hypertension[ICD10: I10] Diagnosis: Chronic pain syndrome[ICD10: G89.4] Diagnosis: 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 deficiency[ICD10: D51.0] Ana Paris MD, [facility] CPT-4: 62963 03/14/2017 ([id number]) 93438 EST. PATIENT, LEVEL III Diagnosis: Cough[ICD10: R05] Diagnosis: Acute bronchitis, unspecified[ICD10: J20.9] Diagnosis: Chronic pain syndrome[ICD10: G89.4] Diagnosis: 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 deficiency[ICD10: D51.0] Ana Paris MD, [facility] CPT-4: 54014 01/12/2017 ([id number]) 37373 EST. PATIENT, LEVEL III Diagnosis: Essential (primary) hypertension[ICD10: I10] Diagnosis: Chronic pain syndrome[ICD10: G89.4] Ana Paris MD, [facility] CPT-4: 20500 12/08/2016 ([id number]) 73248 EST. PATIENT, LEVEL III Diagnosis: Essential (primary) hypertension[ICD10: I10] Ana Paris MD, [facility] CPT-4: 27567 11/03/2016 ([id number]) 53303 EST. PATIENT, LEVEL III Diagnosis: Essential (primary) hypertension[ICD10: I10] Ana Paris MD, [facility] CPT-4: 66722 10/06/2016 ([id number]) 87503 EST. PATIENT, LEVEL III Diagnosis: Essential (primary) hypertension[ICD10: I10] Ana Paris MD, [facility] CPT-4: 11523 09/06/2016 ([id number]) 47669 EST. PATIENT, LEVEL III Diagnosis: Essential (primary) hypertension[ICD10: I10] Ana Paris MD, [facility] CPT-4: 57865 08/23/2016 ([id number]) OFFICE VISIT, NEW - LEVEL 4 Diagnosis: Noninfective gastroenteritis and colitis, unspecified[ICD10: K52.9] Diagnosis: 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 deficiency[ICD10: D51.0] Diagnosis: Iron deficiency anemia, unspecified[ICD10: D50.9] Diagnosis: Chalazion left upper eyelid[ICD10: H00.14] Diagnosis: Elevated blood-pressure reading, without diagnosis of hypertension[ICD10: R03.0] Andree Paris MD, [facility] CPT-4: 33317 04/26/2016 Plan of Care Planned Activity Notes Codes Status Date Appointment: Injection 10/29/2018 Patient Education: Patient Medication [...] his amlodipine 08/15/2018 [phone] [facility] (15 min) Moderate 08/15/2018 [...] plan. 05/23/2018 [phone] [facility] ([facility] min) Moderate 05/23/2018 Patient Education: [...] over-medication. 01/30/2018 Appointment: And[facility] [phone] [facility] [...] concerns. 12/18/2017 [facility]ment[facility] [phone] [phone] [facility] - Annual Wellness Visit 12/18/2017 Patient Education: [...] def-check labs 11/28/2017 Appointment: Ana Pedraza [phone] (30 min) [facility] 11/28/2017 Patient Education: Patient Medication Summary [...] regimen. 10/10/2017 App[facility]ment: [facility] [phone] [facility] (30 min) Complex 10/10/2017 Patient Education: [...] of over-medication. 09/26/2017 Appointment: Teresa Bardales [facility]: [facility] (30 min) Complex 09/26/2017 Patient Education: Patient Medication Summary Completed 09/26/2017 Appointment: Teresa Bardales WPtel: [facility] (30 min) Complex 09/19/2017 Referral: External, Ordering Provider Referral Appointment Confirmed 08/17/2017 Visit Plan: Dysphagia - worsening since yesterday - will refer to Dr. Harper for possible EGD - pt is to notify clinic if symptoms do not improve, if they worsen, or with any acute changes, questions, or concerns. 08/16/2017 Appointment: Teresa Bardales WPtel: [facility] (30 min) Complex 08/16/2017 Patient Education: Patient Medication Summary Completed 08/16/2017 Care Plan: Referral Order SNOMED-CT : [id number] Pending 08/16/2017 Appointment: Injection 08/10/2017 Patient Education: [...] first 07/18/2017 Appointment: Ana Pedraza WPtel: [phone] [phone] (30 min) Complex 07/18/2017 Patient Education: Patient [...] of over-medication. 05/16/2017 Appointment: Ana Pedraza WPtel: [phone] (30 min) Complex 05/16/2017 Patient Education: Patient [...] over-medication. 03/14/2017 Appointment: Ana Pedraza WPtel: [phone] [phone] (30 min) Complex 03/14/2017 Patient Education: Patient [...] of over-medication. 01/12/2017 Appointment: Ana Pedraza [facility]el[phone] (30 min) [facility] 01/12/2017 Patient Education: Patient Medication Summary Completed [...] care surrogate. 12/12/2016 Appointment: Ana Pedraza WPtel: [phone] [facility] - Annual Wellness Visit 12/12/2016 Patient [...] of over-medication. 12/08/2016 Appointment: Ana Pedraza WPtel: [phone] (30 min) Complex 12/08/2016 Patient Education: Patient [...] acute concerns. 11/03/2016 Appointment: Ana Pedraza WPtel: [phone] (30 min) Complex 11/03/2016 Patient Education: Patient [...] concerns. 10/06/2016 Appointment: Ana Pedraza WPtel: [phone] [phone] (30 min) Complex 10/06/2016 Patient Education: Patient [...] concerns. 09/06/2016 Appointment: Ana Pedraza WPtel: [phone] [phone] (30 min) Complex 09/06/2016 Patient Education: Patient [...] concerns. 08/23/2016 Appointment: Ana Pedraza WPtel: [phone] [phone] [place] (15 min) Moderate 08/23/2016 Patient Education: Patient [...] gentamycin. 04/26/2016 App[facility]ment: [phone] [facility] [place] [facility] 04/26/2016 Patient Education: Patient Medication Summary Completed 04/26/2016 Referral: External, Ordering Provider Referral Initiated Instructions Comment increase lisinopril to 20mg twice daily . [...] is to call for acute concerns. . Vitamin B12 deficiency due to bowel [...] to have it-check labs today first . Hypertension - well controlled - continue [...] DOPA paperwork for health care surrogate. . Hypertension - well controlled - continue [...]
--- NOTE | 2019-02-13 09:36 | Progress Note-Pre Operative ---
Pre-Operative Progress Note H&P Reviewed The H&P was reviewed, patient examined and no changes noted. Time Seen by Provider: 09:28 Date H&P Reviewed: Feb 13, 2019 Time H&P Reviewed: 09:29 Pre-Operative Diagnosis: Left chest wall mass, left back mass BETTYE ROJAS DO Feb 13, 2019 09:36
--- OUTSIDE RECORDS SUMMARY | 2019-02-13 09:37 | XMS REPORT | CCD ---
Author Author Andree Paris Organization Andree Paris MD, [facility] Address [address] [place] [address] Phone Care Team Providers Care Silo Operator Name Role Phone PP Unavailable CCM Unavailable Summary Purpose Interface Exchange Insurance Providers Payer name Policy type / Coverage type Covered alliance party ID Effective Begin Date Effective End Date WPS Medicare Part B Medicare Part B [id number] Unknown Unknown FOR LIFE WPS Medicare Part B [id number] Unknown Unknown Family history Father Diagnosis Age At Onset No Known Diseases N/A Mother Diagnosis Age At Onset No Known Diseases N/A Social History Social History Element Codes Description Effective Dates Marital status Unknown 04/26/2016 Number of children Unknown 3 04/26/2016 Employment Unknown Retired 04/26/[address]: 2508422 Former smoker Quit 1969 04/26/[address]: 083954 Currently drinks alcohol 04/26/2016 Has the patient [...] morphine ER 30 mg tablet,extended release RxNorm: 595265 1 Tablet(s) PO daily 10/29/2018 11/27/2018 Active cyanocobalamin (vit B-12) 1,000 mcg/mL injection solution RxNorm: 896226 Milliliter(s) Inj 10/29/2018 10/29/2018 Inactive cyanocobalamin (vit B-12) 1,000 mcg/mL injection solution RxNorm: 961442 Milliliter(s) Inj 09/28/2018 09/28/2018 Inactive morphine ER 30 mg tablet,extended release RxNorm: 919121 1 Tablet(s) PO daily 09/28/2018 10/27/2018 Inactive morphine ER 30 mg tablet,extended release RxNorm: 711247 1 Tablet(s) PO daily 08/30/2018 09/27/2018 Inactive cyanocobalamin (vit B-12) 1,000 mcg/mL injection solution RxNorm: 642351 Milliliter(s) Inj 08/30/2018 08/30/2018 Inactive cyanocobalamin (vit B-12) 1,000 mcg/mL injection solution RxNorm: 237306 Milliliter(s) Inj 07/31/2018 07/31/2018 Inactive morphine ER 30 mg tablet,extended release RxNorm: 761782 1 Tablet(s) PO daily 07/31/2018 08/29/2018 Inactive amlodipine 5 mg tablet RxNorm: 925700 1 Tablet(s) PO QPM 07/11/2018 01/06/2019 Active cyanocobalamin (vit B-12) 1,000 mcg/mL injection solution RxNorm: 817702 1 Milliliter(s) Inj 07/02/2018 07/02/2018 Inactive morphine ER 30 mg tablet,extended release RxNorm: 540806 1 Tablet(s) PO daily 07/02/2018 07/30/2018 Inactive morphine ER 30 mg tablet,extended release RxNorm: 844363 1 Tablet(s) PO daily 05/31/2018 06/29/2018 Inactive cyanocobalamin (vit B-12) 1,000 mcg/mL injection solution RxNorm: 545908 Milliliter(s) Inj 05/31/2018 05/31/2018 Inactive Protonix 40 mg tablet,delayed release RxNorm: 762027 1 Tablet(s) PO daily 05/23/2018 06/21/2018 Inactive Carafate 1 gram tablet RxNorm: 241081 1 Tablet(s) PO AC & HS as needed 05/23/2018 06/21/2018 Inactive cyanocobalamin (vit B-12) 1,000 mcg/mL injection solution RxNorm: 033939 1 Milliliter(s) Inj 05/03/2018 05/03/2018 Inactive morphine ER 30 mg tablet,extended release RxNorm: 445133 1 Tablet(s) PO daily 04/04/2018 05/03/2018 Inactive cyanocobalamin (vit B-12) 1,000 mcg/mL injection solution RxNorm: 933967 1 Milliliter(s) Inj 04/04/2018 04/04/2018 Inactive cyanocobalamin (vit B-12) 1,000 mcg/mL injection solution RxNorm: 736644 1 Milliliter(s) Inj 03/05/2018 03/05/2018 Inactive morphine ER 30 mg tablet,extended release RxNorm: 118525 1 Tablet(s) PO daily 03/05/2018 04/03/2018 Inactive cyanocobalamin (vit B-12) 1,000 mcg/mL injection solution RxNorm: 966547 1 Milliliter(s) Inj 01/30/2018 01/30/2018 Inactive cyanocobalamin (vit B-12) 1,000 mcg/mL injection solution RxNorm: 039201 1 Milliliter(s) Inj 01/01/2018 01/01/2018 Inactive morphine ER 30 mg tablet,extended release RxNorm: 804417 1 Tablet(s) PO daily 01/01/2018 01/30/2018 Inactive lisinopril 20 mg tablet RxNorm: 101859 1 Tablet(s) PO BID 12/18/2017 12/12/2018 Active amlodipine 5 mg tablet RxNorm: 448156 1 Tablet(s) PO QPM 12/18/2017 06/15/2018 Inactive cyanocobalamin (vit B-12) 1,000 mcg/mL injection solution RxNorm: 341528 1 Milliliter(s) Inj 11/28/2017 11/28/2017 Inactive morphine ER 30 mg tablet,extended release RxNorm: 250297 1 Tablet(s) PO daily 11/28/2017 12/27/2017 Inactive morphine ER 30 mg tablet,extended release RxNorm: 215226 1 Tablet(s) PO daily 11/09/2017 11/27/2017 Inactive cyanocobalamin (vit B-12) 1,000 mcg/mL injection solution RxNorm: 288019 1 Milliliter(s) Inj 10/24/2017 10/24/2017 Inactive morphine ER 30 mg tablet,extended release RxNorm: 436787 1 Tablet(s) PO daily 10/10/2017 11/08/2017 Inactive hydrochlorothiazide 25 mg tablet RxNorm: 634928 1 Tablet(s) PO daily 10/10/2017 11/08/2017 Inactive cyanocobalamin (vit B-12) 1,000 mcg/mL injection solution RxNorm: 780885 1 Milliliter(s) Inj 09/26/2017 09/26/2017 Inactive hydrochlorothiazide 12.5 mg tablet RxNorm: 949362 1 Tablet(s) PO daily 09/26/2017 10/25/2017 Inactive morphine ER 30 mg tablet,extended release RxNorm: 925971 1 Tablet(s) PO daily 09/12/2017 10/09/2017 Inactive cyanocobalamin (vit B-12) 1,000 mcg/mL injection solution RxNorm: 245314 1 Milliliter(s) Inj 08/10/2017 08/10/2017 Inactive morphine ER 30 mg tablet,extended release RxNorm: 828435 1 Tablet(s) PO daily 08/10/2017 09/08/2017 Inactive Vitamin B-12 1,000 mcg/mL injection solution RxNorm: 259030 1 Milliliter(s) Inj month 07/21/2017 No Stop Date Active B12 INJECTIONS MONTHLY cyanocobalamin (vit B-12) 1,000 mcg/mL injection solution RxNorm: 978810 1 Milliliter(s) Inj 07/18/2017 07/18/2017 Inactive morphine ER 30 mg tablet,extended release RxNorm: 504350 1 Tablet(s) PO daily 07/13/2017 08/09/2017 Inactive morphine ER 30 mg tablet,extended release RxNorm: 496904 1 Tablet(s) PO daily 06/15/2017 07/12/2017 Inactive cyanocobalamin (vit B-12) 1,000 mcg/mL injection solution RxNorm: 308088 1 Milliliter(s) Inj 05/16/2017 05/16/2017 Inactive morphine ER 30 mg tablet,extended release RxNorm: 908329 1 Tablet(s) PO daily 04/13/2017 05/12/2017 Inactive cyanocobalamin (vit B-12) 1,000 mcg/mL injection solution RxNorm: 293593 1 Milliliter(s) Inj 03/14/2017 03/14/2017 Inactive morphine ER 30 mg tablet,extended release RxNorm: 444146 1 Tablet(s) PO daily 03/14/2017 04/12/2017 Inactive morphine ER 30 mg tablet,extended release RxNorm: 937157 1 Tablet(s) PO daily 02/13/2017 03/13/2017 Inactive Kenalog 40 mg/mL suspension for injection RxNorm: 4449616 1 Milliliter(s) Inj 01/12/2017 01/12/2017 Inactive cyanocobalamin (vit B-12) 1,000 mcg/mL injection solution RxNorm: 827602 1 Milliliter(s) Inj 01/12/2017 01/12/2017 Inactive Zithromax Z-[place] 250 mg tablet RxNorm: 861517 1 Tablet(s) PO UD 01/12/2017 01/16/2017 Inactive ceftriaxone 500 mg solution for injection RxNorm: 6469864 1 Milliliter(s) Inj 01/12/2017 01/12/2017 Inactive Vitamin B-12 1,000 mcg/mL injection solution RxNorm: 628058 1 Milliliter(s) Inj EVERY OTHER MONTH 01/04/2017 07/20/2017 Inactive lisinopril 20 mg tablet RxNorm: 913202 1 Tablet(s) PO BID 01/02/2017 12/17/2017 Inactive lisinopril 20 mg tablet RxNorm: 287460 1 Tablet(s) PO BID 12/12/2016 01/01/2017 Inactive morphine ER 30 mg tablet,extended release RxNorm: 246862 1 Tablet(s) PO daily 12/08/2016 01/06/2017 Inactive lisinopril 20 mg tablet RxNorm: 571994 1 Tablet(s) PO BID 11/03/2016 12/11/2016 Inactive morphine ER 30 mg tablet,extended release RxNorm: 639162 1 Tablet(s) PO daily 11/03/2016 12/02/2016 Inactive cyanocobalamin (vit B-12) 1,000 mcg/mL injection solution RxNorm: 048728 1 Milliliter(s) Inj 10/27/2016 10/27/2016 Inactive lisinopril 10 mg tablet RxNorm: 330824 1 Tablet(s) PO BID 10/06/2016 11/02/2016 Inactive lisinopril 10 mg tablet RxNorm: 931536 1 Tablet(s) PO daily 09/06/2016 10/05/2016 Inactive morphine ER 30 mg tablet,extended release RxNorm: 954002 1 Tablet(s) PO daily 08/18/2016 09/16/2016 Inactive cyanocobalamin (vit B-12) 1,000 mcg/mL injection solution RxNorm: 288414 Milliliter(s) Inj 07/27/2016 07/27/2016 Inactive morphine ER 30 mg tablet,extended release RxNorm: 117271 1 Tablet(s) PO daily 07/21/2016 08/17/2016 Inactive morphine ER 30 mg tablet,extended release RxNorm: 417245 1 Tablet(s) PO daily 06/20/2016 07/19/2016 Inactive morphine ER 30 mg tablet,extended release RxNorm: 084896 1 Tablet(s) PO daily 05/20/2016 06/19/2016 Inactive cyanocobalamin (vit B-12) 1,000 mcg/mL injection solution RxNorm: 352458 1 Milliliter(s) Inj 04/26/2016 04/26/2016 Inactive gentamicin 0.3 % eye drops RxNorm: 599152 2 Drop(s) OPH Q4H 04/26/2016 05/02/2016 Inactive Vitamin B-12 1,000 mcg/mL injection solution RxNorm: 969002 1 Milliliter(s) Inj EVERY 3 MONTHS No Start Date 01/03/2017 Inactive Claritin 10 mg tablet RxNorm: 929067 1 Tablet(s) PO daily No Start Date 07/17/2017 Inactive Venofer intravenous RxNorm: 91784 intravenous No Start Date 08/14/2018 Inactive morphine ER 30 mg tablet,extended release RxNorm: 295120 1 Tablet(s) PO daily No Start Date 04/25/2016 Inactive Medication Administered Medication Codes Instructions Start Date Status cyanocobalamin (vit B-12) 1,000 mcg/mL injection solution RxNorm: 219340 Milliliter 10/29/2018 Active cyanocobalamin (vit B-12) 1,000 mcg/mL injection solution RxNorm: 045769 Milliliter 09/28/2018 No longer Active cyanocobalamin (vit B-12) 1,000 mcg/mL injection solution RxNorm: 219500 Milliliter 08/30/2018 No longer Active cyanocobalamin (vit B-12) 1,000 mcg/mL injection solution RxNorm: 269067 Milliliter 07/31/2018 No longer Active cyanocobalamin (vit B-12) 1,000 mcg/mL injection solution RxNorm: 794320 1Milliliter 07/02/2018 No longer Active cyanocobalamin (vit B-12) 1,000 mcg/mL injection solution RxNorm: 453646 Milliliter 05/31/2018 No longer Active cyanocobalamin (vit B-12) 1,000 mcg/mL injection solution RxNorm: 708474 1Milliliter 05/03/2018 No longer Active cyanocobalamin (vit B-12) 1,000 mcg/mL injection solution RxNorm: 989358 1Milliliter 04/04/2018 No longer Active cyanocobalamin (vit B-12) 1,000 mcg/mL injection solution RxNorm: 153206 1Milliliter 03/05/2018 No longer Active cyanocobalamin (vit B-12) 1,000 mcg/mL injection solution RxNorm: 331183 1Milliliter 01/30/2018 No longer Active cyanocobalamin (vit B-12) 1,000 mcg/mL injection solution RxNorm: 286314 1Milliliter 01/01/2018 No longer Active cyanocobalamin (vit B-12) 1,000 mcg/mL injection solution RxNorm: 064691 1Milliliter 11/28/2017 No longer Active cyanocobalamin (vit B-12) 1,000 mcg/mL injection solution RxNorm: 659486 1Milliliter 10/24/2017 No longer Active cyanocobalamin (vit B-12) 1,000 mcg/mL injection solution RxNorm: 654844 1Milliliter 09/26/2017 No longer Active cyanocobalamin (vit B-12) 1,000 mcg/mL injection solution RxNorm: 503543 1Milliliter 08/10/2017 No longer Active cyanocobalamin (vit B-12) 1,000 mcg/mL injection solution RxNorm: 120221 1Milliliter 07/18/2017 No longer Active cyanocobalamin (vit B-12) 1,000 mcg/mL injection solution RxNorm: 195441 1Milliliter 05/16/2017 No longer Active cyanocobalamin (vit B-12) 1,000 mcg/mL injection solution RxNorm: 100642 1Milliliter 03/14/2017 No longer Active Kenalog 40 mg/mL suspension for injection RxNorm: 6994552 1Milliliter 01/12/2017 No longer Active cyanocobalamin (vit B-12) 1,000 mcg/mL injection solution RxNorm: 927447 1Milliliter 01/12/2017 No longer Active ceftriaxone 500 mg solution for injection RxNorm: 8109410 1Milliliter 01/12/2017 No longer Active cyanocobalamin (vit B-12) 1,000 mcg/mL injection solution RxNorm: 695659 1Milliliter 10/27/2016 No longer Active cyanocobalamin (vit B-12) 1,000 mcg/mL injection solution RxNorm: 824124 Milliliter 07/27/2016 No longer Active cyanocobalamin (vit B-12) 1,000 mcg/mL injection solution RxNorm: 137392 1Milliliter 04/26/2016 No longer Active Immunizations Vaccine [...] Observation Code Item Item Code Result Date Tibc Ord40 Iron 127 ug/dl 11/28/2017 Tibc [...] 32.9 pg 11/28/2017 Cbc With Differential Ord2 Mckinley% 12.6 % 11/28/2017 Cbc With Differential Ord2 Eos% 3.6 % 11/28/2017 Cbc With Differential Ord2 MCHC 33.4 pg 11/28/2017 Cbc With Differential Ord2 Baso% 0.5 % 11/28/2017 Cbc With Differential Ord2 PLT 312 K/ul 11/28/2017 Cbc With Differential Ord2 RDW 15.1 % 11/28/2017 Cbc With Differential Ord2 Neut ABS# 4.36 K/ul 11/28/2017 Cbc With Differential Ord2 Lymph ABS# 2.87 K/ul 11/28/2017 Cbc With Differential Ord2 Mckinley ABS# 1.1 K/ul 11/28/2017 Cbc With Differential Ord2 Eos ABS# 0.3 K/ul 11/28/2017 Cbc With Differential Ord2 Baso ABS# 0.0 K/ul 11/28/2017 B12 Ykl343 B12 >1500.00 pg/ml 11/28/2017 Comp Metabolic Erj873 NA 139 mEq/L 11/28/2017 Comp Metabolic Dsj020 K 5.2 mEq/L 11/28/2017 Comp Metabolic Hac688 CL 106 mEq/L 11/28/2017 Comp Metabolic Wnt848 CO2 28.0 mEq/L 11/28/2017 Comp Metabolic Jxu267 ANION GAP 10 11/28/2017 Comp Metabolic Mtr638 GLUCOSE 89 mg/dL 11/28/2017 Comp Metabolic Idp709 Creat 1.1 mg/dL 11/28/2017 Comp Metabolic Ahk201 eGFR 66 ml/min/1.73m2 11/28/2017 Comp Metabolic Aqj800 BUN 18 mg/dL 11/28/2017 Comp Metabolic Hyd522 B/C Ratio 16.1 Ratio 11/28/2017 Comp Metabolic Ilk337 CALCIUM 9.2 mg/dL 11/28/2017 Comp Metabolic Enk397 ALK PHOS 89 U/L 11/28/2017 Comp Metabolic Aai896 AST(SGOT) 22 U/L 11/28/2017 Comp Metabolic Tmy425 ALT(SGPT) 15 U/L 11/28/2017 Comp Metabolic Cqa129 BILI T 0.6 mg/dL 11/28/2017 Comp Metabolic Fau666 ALBUMIN 3.9 g/dL 11/28/2017 Comp Metabolic Pks614 TPRO 6.5 g/dL 11/28/2017 Comp Metabolic Jyf895 GLOB 2.6 g/dL 11/28/2017 Comp Metabolic Bzc054 A/G Ratio 1.5 Ratio 11/28/2017 Comp Metabolic Rzq138 Osmo 279 mOsmo 11/28/2017 Ferritin Ord22 FERRITIN [...] 33.7 % 07/18/2017 Cbc With Differential Ord2 Mckinley% 12.3 % 07/18/2017 Cbc With Differential Ord2 [...] 2.90 K/ul 07/18/2017 Cbc With Differential Ord2 Mckinley ABS# 1.1 K/ul 07/18/2017 Cbc With Differential Ord2 Eos ABS# 0.2 K/ul 07/18/2017 Cbc With Differential Ord2 Baso ABS# 0.0 K/ul 07/18/2017 Comp Metabolic Apa780 NA 140 mEq/L 07/18/2017 Comp Metabolic Buh709 K 4.6 mEq/L 07/18/2017 Comp Metabolic Gph005 CL 105 mEq/L 07/18/2017 Comp Metabolic Isl138 CO2 29.0 mEq/L 07/18/2017 Comp Metabolic Ban343 ANION GAP 11 07/18/2017 Comp Metabolic Ear396 GLUCOSE 96 mg/dL 07/18/2017 Comp Metabolic Nzr702 Creat 1.0 mg/dL 07/18/2017 Comp Metabolic Ugc423 eGFR 73 ml/min/1.73m2 07/18/2017 Comp Metabolic Enc323 BUN 12 mg/dL 07/18/2017 Comp Metabolic Ffc650 B/C Ratio 11.7 Ratio 07/18/2017 Comp Metabolic Wge439 CALCIUM 9.2 mg/dL 07/18/2017 Comp Metabolic Eya237 ALK PHOS 74 U/L 07/18/2017 Comp Metabolic Rmj121 AST(SGOT) 29 U/L 07/18/2017 Comp Metabolic Orf255 ALT(SGPT) 16 U/L 07/18/2017 Comp Metabolic Rbk188 BILI T 0.7 mg/dL 07/18/2017 Comp Metabolic Ptn100 ALBUMIN 3.7 g/dL 07/18/2017 Comp Metabolic Wwe696 TPRO 6.5 g/dL 07/18/2017 Comp Metabolic Qap843 GLOB 2.8 g/dL 07/18/2017 Comp Metabolic Jkh493 A/G Ratio 1.3 Ratio 07/18/2017 Comp Metabolic Wnl413 Osmo 279 mOsmo 07/18/2017 Iron Ord72 Iron 114 ug/dl 07/18/2017 B12 Keb880 B12 233.00 pg/ml 07/18/2017 Tsh Ord6 hTSH [...] 33.3 pg 12/13/2016 Cbc With Differential Ord2 Mckinley% 17.9 % 12/13/2016 Cbc With Differential Ord2 [...] 2.71 K/ul 12/13/2016 Cbc With Differential Ord2 [place] ABS# 1.7 K/ul 12/13/2016 Cbc With Differential Ord2 Eos ABS# 0.3 K/ul 12/13/2016 Cbc With Differential Ord2 Baso ABS# 0.0 K/ul 12/13/2016 Comp Metabolic Pve404 NA 136 mEq/L 12/13/2016 Comp Metabolic Uqg057 K 4.7 mEq/L 12/13/2016 Comp Metabolic Khr911 CL 102 mEq/L 12/13/2016 Comp Metabolic Ryg214 CO2 26.0 mEq/L 12/13/2016 Comp Metabolic Yfy809 ANION GAP 13 12/13/2016 Comp Metabolic Jaz605 GLUCOSE 87 mg/dL 12/13/2016 Comp Metabolic Pcq429 Creat 0.9 mg/dL 12/13/2016 Comp Metabolic Deb014 eGFR 83 ml/min/1.73m2 12/13/2016 Comp Metabolic Pem113 BUN 17 mg/dL 12/13/2016 Comp Metabolic Qrk655 B/C Ratio 18.3 Ratio 12/13/2016 Comp Metabolic Cbj015 CALCIUM 9.1 mg/dL 12/13/2016 Comp Metabolic Tzk237 ALK PHOS 90 U/L 12/13/2016 Comp Metabolic Uqr686 AST(SGOT) 22 U/L 12/13/2016 Comp Metabolic Acd895 ALT(SGPT) 15 U/L 12/13/2016 Comp Metabolic Kny134 BILI T 0.8 mg/dL 12/13/2016 Comp Metabolic Ikr510 ALBUMIN 3.6 g/dL 12/13/2016 Comp Metabolic Ksc266 TPRO 6.4 g/dL 12/13/2016 Comp Metabolic Faw582 GLOB 2.9 g/dL 12/13/2016 Comp Metabolic Rxf607 A/G Ratio 1.2 Ratio 12/13/2016 Comp Metabolic Mzg721 Osmo 273 mOsmo 12/13/2016 Lipid Ord30 CHOL 182 mg/dL 12/13/2016 Lipid Ord30 HDL 64.0 mg/dl 12/13/2016 Lipid Ord30 TRIG 62 mg/dL 12/13/2016 Lipid Ord30 LDL 106 mg/dL 12/13/2016 Lipid Ord30 C/HDL 2.8 Ratio 12/13/2016 Ferritin Ord22 FERRITIN 434.7 ng/mL 12/13/2016 B12 Xrw310 B12 247.00 pg/ml 12/13/2016 Tibc Ord40 Iron [...] 44.4 % 04/27/2016 Cbc With Differential Ord2 Lymph% 36.6 % 04/27/2016 Cbc With Differential Ord2 MCV 101.8 fl 04/27/2016 Cbc With Differential Ord2 MCH 33.7 pg 04/27/2016 Cbc With Differential Ord2 Mckinley% 13.7 % 04/27/2016 Cbc With Differential Ord2 Eos% 3.6 % 04/27/2016 Cbc With Differential Ord2 MCHC 33.1 pg 04/27/2016 Cbc With Differential Ord2 Baso% 0.3 % 04/27/2016 Cbc With Differential Ord2 PLT 295 K/ul 04/27/2016 Cbc With Differential Ord2 Neut ABS# 4.02 K/ul 04/27/2016 Cbc With Differential Ord2 RDW 14.4 % 04/27/2016 Cbc With Differential Ord2 Lymph ABS# 3.22 K/ul 04/27/2016 Cbc With Differential Ord2 [place] ABS# 1.2 K/ul 04/27/2016 Cbc With Differential Ord2 Eos ABS# 0.3 K/ul 04/27/2016 Cbc With Differential Ord2 Baso ABS# 0.0 K/ul 04/27/2016 Comp Metabolic Brx033 NA 138 mEq/L 04/27/2016 Comp Metabolic Bxn534 K 4.3 mEq/L 04/27/2016 Comp Metabolic Nen009 CL 104 mEq/L 04/27/2016 Comp Metabolic Xay118 CO2 30.0 mEq/L 04/27/2016 Comp Metabolic Avb149 ANION GAP 8 04/27/2016 Comp Metabolic Jte793 GLUCOSE 87 mg/dL 04/27/2016 Comp Metabolic Ijo391 Creat 0.9 mg/dL 04/27/2016 Comp Metabolic Izg025 eGFR 82 ml/min/1.73m2 04/27/2016 Comp Metabolic Crf865 BUN 13 mg/dL 04/27/2016 Comp Metabolic Gix704 B/C Ratio 13.8 Ratio 04/27/2016 Comp Metabolic Fuz384 CALCIUM 9.0 mg/dL 04/27/2016 Comp Metabolic Wpn140 ALK PHOS 62 U/L 04/27/2016 Comp Metabolic Vnu461 AST(SGOT) 24 U/L 04/27/2016 Comp Metabolic Fcc365 ALT(SGPT) 15 U/L 04/27/2016 Comp Metabolic Kxq026 BILI T 0.7 mg/dL 04/27/2016 Comp Metabolic Syg502 ALBUMIN 3.6 g/dL 04/27/2016 Comp Metabolic Lvp703 TPRO 6.1 g/dL 04/27/2016 Comp Metabolic Svu354 GLOB 2.5 g/dL 04/27/2016 Comp Metabolic Pau357 A/G Ratio 1.4 Ratio 04/27/2016 Comp Metabolic Wzm008 Osmo 275 mOsmo 04/27/2016 B12 Aqp597 B12 >1500.00 pg/ml 04/27/2016 Iron Ord72 Iron [...] Procedure Codes Date THER/PROPH/DIAG INJ SC/IM CPT-4: 47578 10/29/2018 VITAMIN B12 INJECTION CPT- 4: J3420 10/29/2018 THER/PROPH/DIAG INJ SC/IM CPT-4: 99773 09/28/2018 VITAMIN B12 INJECTION CPT- 4: J3420 09/28/2018 THER/PROPH/DIAG INJ SC/IM CPT-4: 48011 08/30/2018 VITAMIN B12 INJECTION CPT- 4: J3420 08/30/2018 VITAMIN B12 INJECTION CPT- 4: J3420 07/31/2018 THER/PROPH/DIAG INJ SC/IM CPT-4: 21536 07/31/2018 THER/PROPH/DIAG INJ SC/IM CPT-4: 53162 07/02/2018 VITAMIN B12 INJECTION CPT- 4: J3420 07/02/2018 THER/PROPH/DIAG INJ SC/IM CPT-4: 82093 05/31/2018 ADMIN INFLUENZA VIRUS VAC CPT-4: G0008 05/31/2018 VITAMIN B12 INJECTION CPT- 4: J3420 05/31/2018 FLU VACC PRSV FREE INC ANTIG Formatting Model/CDA Sections, Assigned to/Mary Grace Rosado CPT-4: 43201Azmbfxc 05/31/2018 VITAMIN B12 INJECTION CPT- 4: J3420 05/03/2018 THER/PROPH/DIAG INJ SC/IM CPT-4: 20622 05/03/2018 THER/PROPH/DIAG INJ SC/IM CPT-4: 50257 04/04/2018 VITAMIN B12 INJECTION CPT- 4: J3420 04/04/2018 THER/PROPH/DIAG INJ SC/IM CPT-4: 62648 03/05/2018 VITAMIN B12 INJECTION CPT- 4: J3420 03/05/2018 VITAMIN B12 INJECTION CPT- 4: J3420 01/30/2018 THER/PROPH/DIAG INJ SC/IM CPT-4: 71749 01/30/2018 THER/PROPH/DIAG INJ SC/IM CPT-4: 59224 01/01/2018 VITAMIN B12 INJECTION CPT- 4: J3420 01/01/2018 PPPS, SUBSEQ VISIT CPT- 4: G0439 12/18/2017 THER/PROPH/DIAG INJ SC/IM CPT-4: 70061 11/28/2017 VITAMIN B12 INJECTION CPT- 4: J3420 11/28/2017 THER/PROPH/DIAG INJ SC/IM CPT-4: 33745 10/24/2017 VITAMIN B12 INJECTION CPT- 4: J3420 10/24/2017 THER/PROPH/DIAG INJ SC/IM CPT-4: 71589 09/26/2017 VITAMIN B12 INJECTION CPT- 4: J3420 09/26/2017 THER/PROPH/DIAG INJ SC/IM CPT-4: 54835 08/10/2017 VITAMIN B12 INJECTION CPT- 4: J3420 08/10/2017 THER/PROPH/DIAG INJ SC/IM CPT-4: 54061 07/18/2017 VITAMIN B12 INJECTION CPT- 4: J3420 07/18/2017 THER/PROPH/DIAG INJ SC/IM CPT-4: 20681 05/16/2017 VITAMIN B12 INJECTION CPT- 4: J3420 05/16/2017 THER/PROPH/DIAG INJ SC/IM CPT-4: 03714 03/14/2017 VITAMIN B12 INJECTION CPT- 4: J3420 03/14/2017 TRIAMCINOLONE ACET INJ NOS CPT-4: J3301 01/12/2017 ROCEPHIN, PER 250 MG CPT- 4: J0696 01/12/2017 VITAMIN B12 INJECTION CPT- 4: J3420 01/12/2017 THER/PROPH/DIAG INJ SC/IM CPT-4: 04904 01/12/2017 PPPS, SUBSEQ VISIT CPT- 4: G0439 12/12/2016 PNEUMOCOCCAL VACC [address]: 19039484 CPT-4: 57607 12/12/2016 ADMIN PNEUMOCOCCAL VACCINE SNOMED CT: 49622968 CPT-4: G0009 12/12/2016 THER/PROPH/DIAG INJ SC/IM CPT-4: 81367 10/27/2016 VITAMIN B12 INJECTION CPT- 4: J3420 10/27/2016 THER/PROPH/DIAG INJ SC/IM CPT-4: 92102 07/27/2016 VITAMIN B12 INJECTION CPT- 4: J3420 07/27/2016 THER/PROPH/DIAG INJ SC/IM CPT-4: 97954 04/26/2016 VITAMIN B12 INJECTION CPT- 4: J3420 04/26/2016 Vital Signs Date Vital 08/15/2018 Blood Pressure 1: 144/66 Code: 8480-6 BMI: 25.1 Code: 76554-0 Heart Rate 1: 75 bpm Height: 5'7" SpO2: 98% Weight: 160 lbs 05/23/2018 Blood Pressure 1: 158/64 Code: 8480-6 BMI: 24.7 Code: 74952-1 Heart Rate 1: 76 bpm Height: 5'7" SpO2: 96% Temperature: 36.7 (C) / 98.1 (F) Weight: 158 lbs 05/03/2018 Blood Pressure 1: 122/72 Code: 8480-6 BMI: 25.1 Code: 71055-9 Heart Rate 1: 74 bpm Height: 5'7" SpO2: 97% Weight: 160 lbs 01/31/2018 Blood Pressure 1: 137/77 Code: 8480-6 Blood Pressure 2: 138/68 Code: 8480-6 Heart Rate 1: 67 bpm SpO2: 98% 01/30/2018 Blood Pressure 1: 138/66 Code: 8480-6 BMI: 25.1 Code: 17731-7 Heart Rate 1: 76 bpm Height: 5'7" SpO2: 94% Weight: 160 lbs 12/18/2017 Blood Pressure 1: 152/88 Code: 8480-6 BMI: 25.8 Code: 79536-3 Heart Rate 1: 68 bpm Height: 5'7" SpO2: 96% Weight: 165 lbs 11/28/2017 Blood Pressure 1: 150/76 Code: 8480-6 BMI: 25.2 Code: 04116-9 Heart Rate 1: 78 bpm Height: 5'7" SpO2: 98% Weight: 161 lbs 10/10/2017 Blood Pressure 1: 156/76 Code: 8480-6 BMI: 24.7 Code: 90722-2 Heart Rate 1: 71 bpm Height: 5'7" SpO2: 98% Weight: 158 lbs 09/26/2017 Blood Pressure 1: 162/82 Code: 8480-6 BMI: 24.7 Code: 99991-0 Heart Rate 1: 69 bpm Height: 5'7" SpO2: 99% Weight: 158 lbs 08/16/2017 Blood Pressure 1: 154/82 Code: 8480-6 BMI: 24.1 Code: 25399-8 Heart Rate 1: 58 bpm Height: 5'7" SpO2: 96% Weight: 154 lbs 07/18/2017 Blood Pressure 1: 152/88 Code: 8480-6 BMI: 25.2 Code: 25708-8 Heart Rate 1: 72 bpm Height: 5'7" SpO2: 98% Weight: 161 lbs 05/16/2017 Blood Pressure 1: 136/78 Code: 8480-6 BMI: 24.8 Code: 93049-7 Heart Rate 1: 71 bpm Height: 5'7" SpO2: 96% Weight: 158 lbs 8 oz 03/14/2017 Blood Pressure 1: 142/74 Code: 8480-6 BMI: 23.8 Code: 72593-7 Heart Rate 1: 69 bpm Height: 5'7" SpO2: 94% Weight: 152 lbs 01/12/2017 Blood Pressure 1: 156/90 Code: 8480-6 BMI: 23.4 Code: 29946-5 Heart Rate 1: 90 bpm Height: 5'7" SpO2: 97% Temperature: 37.4 (C) / 99.3 (F) Weight: 149 lbs 8 oz 12/12/2016 Blood Pressure 1: 140/78 Code: 8480-6 BMI: 24.3 Code: 57445-8 Heart Rate 1: 73 bpm Height: 5'7" SpO2: 96% Waist Measure (cm): 90 cm Weight: 155 lbs 12/08/2016 Blood Pressure 1: 148/84 Code: 8480-6 BMI: 24.3 Code: 82865-6 Heart Rate 1: 80 bpm Height: 5'7" SpO2: 96% Weight: 155 lbs 11/03/2016 Blood Pressure 1: 156/84 Code: 8480-6 Blood Pressure 2: 155/94 Code: 8480-6 BMI: 24.3 Code: 00530-1 Heart Rate 1: 81 bpm Height: 5'7" SpO2: 98% Weight: 155 lbs 10/06/2016 Blood Pressure 1: 175/95 Code: 8480-6 Heart Rate 1: 77 bpm Respiratory Rate: 16 bpm SpO2: 98% Temperature: 36.4 (C) / 97.5 (F) Weight: 157 lbs 09/06/2016 Blood Pressure 1: 136/80 Code: 8480-6 BMI: 24.1 Code: 20868-9 Heart Rate 1: 82 bpm Height: 5'8" SpO2: 97% Weight: 156 lbs 08/23/2016 Blood Pressure 1: 160/80 Code: 8480-6 BMI: 24.4 Code: 21373-0 Heart Rate 1: 88 bpm Height: 5'8" SpO2: 95% Weight: 158 lbs 04/26/2016 Blood Pressure 1: 156/74 Code: 8480-6 BMI: 24.5 Code: 65878-1 Heart Rate 1: 70 bpm Height: 5'8" [...] Encounters Encounter Performer Location Codes Date ( EST. PATIENT, LEVEL III Diagnosis: Essential (primary) hypertension[ICD10: I10] Andree Paris MD, [facility] CPT-4: 34909 08/15/2018 [id number] EST. PATIENT, LEVEL III Diagnosis: Dysphagia, pharyngoesophageal phase[ICD10: R13.14] Teresa Paris MD, [facility] CPT-4: 13497 05/23/2018 ([id number]) [id number] EST. PATIENT, LEVEL IV Diagnosis: Essential (primary) hypertension[ICD10: I10] Diagnosis: Chronic pain syndrome[ICD10: G89.4] Diagnosis: 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 deficiency[ICD10: D51.0] Diagnosis: Other iron deficiency anemias[ICD10: D50.8] Diagnosis: Slow transit constipation[ICD10: K59.01] Andree Paris MD, [facility] CPT-4: 92014 05/03/2018 ([id number]) Miscellaneous no charge Diagnosis: Essential (primary) hypertension[ICD10: I10] Teresa Paris MD, [facility] CPT-4: 69978 01/31/2018 ([id number]) 08083 EST. PATIENT, LEVEL IV Diagnosis: Essential (primary) hypertension[ICD10: I10] Diagnosis: Chronic pain syndrome[ICD10: G89.4] Andree Paris MD, [facility] CPT- 4: 37987 01/30/2018 ([id number]) 44057 EST. 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 PATIENT, LEVEL IV Diagnosis: Essential (primary) hypertension[ICD10: I10] Diagnosis: Slow transit constipation[ICD10: K59.01] Diagnosis: Chronic pain syndrome[ICD10: G89.4] Teresa Paris MD, [facility] CPT- 4: 29463 10/10/2017 20508 EST. PATIENT, LEVEL IV Diagnosis: 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 deficiency[ICD10: D51.0] Diagnosis: Essential (primary) hypertension[ICD10: I10] Diagnosis: Chronic pain syndrome[ICD10: G89.4] Teresa Paris MD, [facility] CPT- 4: 97168 09/26/2017 06120 EST. PATIENT, LEVEL III Diagnosis: Dysphagia, pharyngoesophageal phase[ICD10: R13.14] Teresa Paris MD, [facility] CPT-4: 25235 08/16/2017 ([id number]) 58741 EST. PATIENT, LEVEL IV Diagnosis: Essential (primary) hypertension[ICD10: I10] Diagnosis: Chronic pain syndrome[ICD10: G89.4] Diagnosis: 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 deficiency[ICD10: D51.0] Diagnosis: Iron deficiency anemia, unspecified[ICD10: D50.9] Diagnosis: Dysphagia, pharyngoesophageal phase[ICD10: R13.14] Ana Paris MD, [facility] CPT-4: 92586 07/18/2017 ([id number]) 51726 EST. PATIENT, LEVEL III Diagnosis: Essential (primary) hypertension[ICD10: I10] Diagnosis: Chronic pain syndrome[ICD10: G89.4] Diagnosis: 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 deficiency[ICD10: D51.0] Ana Paris MD, [facility] CPT-4: 32071 05/16/2017 ([id number]) 85995 EST. PATIENT, LEVEL III Diagnosis: Essential (primary) hypertension[ICD10: I10] Diagnosis: Chronic pain syndrome[ICD10: G89.4] Diagnosis: 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 deficiency[ICD10: D51.0] Ana Paris MD, [facility] CPT-4: 45095 03/14/2017 ([id number]) 98248 EST. PATIENT, LEVEL III Diagnosis: Cough[ICD10: R05] Diagnosis: Acute bronchitis, unspecified[ICD10: J20.9] Diagnosis: Chronic pain syndrome[ICD10: G89.4] Diagnosis: 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 deficiency[ICD10: D51.0] Ana Paris MD, [facility] CPT-4: 99199 01/12/2017 ([id number]) 24452 EST. PATIENT, LEVEL III Diagnosis: Essential (primary) hypertension[ICD10: I10] Diagnosis: Chronic pain syndrome[ICD10: G89.4] Ana Paris MD, [facility] CPT-4: 91203 12/08/2016 ([id number]) 58518 EST. PATIENT, LEVEL III Diagnosis: Essential (primary) hypertension[ICD10: I10] Ana Paris MD, [facility] CPT-4: 16227 11/03/2016 ([id number]) 96963 EST. PATIENT, LEVEL III Diagnosis: Essential (primary) hypertension[ICD10: I10] Ana Paris MD, [facility] CPT-4: 04577 10/06/2016 ([id number]) 13451 EST. PATIENT, LEVEL III Diagnosis: Essential (primary) hypertension[ICD10: I10] Ana Paris MD, [facility] CPT-4: 27014 09/06/2016 ([id number]) 99732 EST. PATIENT, LEVEL III Diagnosis: Essential (primary) hypertension[ICD10: I10] Ana Paris MD, [facility] CPT-4: 05122 08/23/2016 ([id number]) OFFICE VISIT, NEW - LEVEL 4 Diagnosis: Noninfective gastroenteritis and colitis, unspecified[ICD10: K52.9] Diagnosis: 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 deficiency[ICD10: D51.0] Diagnosis: Iron deficiency anemia, unspecified[ICD10: D50.9] Diagnosis: Chalazion left upper eyelid[ICD10: H00.14] Diagnosis: Elevated blood-pressure reading, without diagnosis of hypertension[ICD10: R03.0] Andree Paris MD, [facility] CPT-4: 23454 04/26/2016 Plan of Care Planned Activity Notes Codes Status Date Patient Education: Patient Medication Summary Completed 10/29/2018 [...] amlodipine 08/15/2018 [phone] ([facility]) Moderate 08/15/2018 Patient [...] plan. 05/23/2018 Appointment: Teresa Bardales WPtel: [phone] [facility] (15 min) Moderate 05/23/2018 Patient Education: Patient [...] management. 05/03/2018 [phone] ([facility] min) Moderate 05/03/2018 Patient [...] over-medication. 01/30/2018 [facility]ment[phone] ([facility] min) Moderate 01/30/2018 Patient [...] 12/18/2017 [phone] [facility] - Annual Wellness Visit 12/18/2017 [...] def-check labs 11/28/2017 [facility]ment: [phone] [phone] (30 min) Complex 11/28/2017 Patient Education: [...] regimen. 10/10/2017 Appointment: Teresa Bardales WPtel: [phone] [facility] (30 min) Complex 10/10/2017 Patient Education: [...] over-medication. 09/26/2017 [facility]ment: [phone] [facility] ([facility] min) Complex 09/26/2017 Patient Education: Patient Medication Summary Completed 09/26/2017 [facility]ment: [facility] [phone] [facility] (30 min) Complex 09/19/2017 Referral: External, Ordering Provider Referral Appointment Confirmed 08/17/2017 Visit Plan: Dysphagia - worsening since yesterday - will refer to Dr. Harper for possible EGD - pt is to notify clinic if symptoms do not improve, if they worsen, or with any acute changes, questions, or concerns. 08/16/2017 App[facility]ment: [facility] [phone] [facility] ([facility] min) Complex 08/16/2017 Patient Education: Patient Medication Summary Completed 08/16/2017 Care Plan: Referral Order SNOMED-CT : [id number] Pending 08/16/2017 Appointment: Injection 08/10/2017 Patient Education: [...] first 07/18/2017 Appointment: [facility] [phone] [phone] (30 min) Complex 07/18/2017 Patient Education: Patient [...] over-medication. 05/16/2017 Appointment: Ana Pedraza WPtel: [phone] [phone] [place] (30 min) Complex 05/16/2017 Patient Education: Patient [...] of over-medication. 03/14/2017 Appointment: Ana Pedraza WPtel: [address] [place] [address] (30 min) Complex 03/14/2017 Patient Education: Patient [...] of over-medication. 01/12/2017 Appointment: Ana Pedraza WPtel: [address] [place] [address] (30 min) Complex 01/12/2017 Patient Education: Patient [...] 12/12/2016 Appointment: Ana Pedraza WPtel: [facility] - Annual Wellness Visit 12/12/2016 Patient [...] 12/08/2016 Appointment: Ana Pedraza WPtel: [facility] [place] [phone] (30 min) Complex 12/08/2016 Patient Education: Patient [...] concerns. 11/03/2016 Appointment: Ana Pedraza WPtel: [phone] [phone] (30 min) Complex 11/03/2016 Patient Education: Patient [...] concerns. 10/06/2016 Appointment: Ana Pedraza WPtel: [phone] [phone] (30 min) Complex 10/06/2016 Patient Education: Patient [...] acute concerns. 09/06/2016 App[facility]ment: [facility] [phone] [phone] (30 min) Complex 09/06/2016 Patient Education: [...] acute concerns. 08/23/2016 Appointment: Ana Pedraza WPtel: [facility] [place] [address] (15 min) Moderate 08/23/2016 Patient Education: Patient [...] for gentamycin. 04/26/2016 Appointment: Andree Paris [facility]Ptel: [facility] [facility] 04/26/2016 Patient Education: [...]
--- OUTSIDE RECORDS SUMMARY | 2019-02-13 09:39 | XMS REPORT | CCD ---
Author Author Andree Paris Organization Andree Paris MD, [facility] Address [address] [place] [address] Phone Care Team Providers Care Sales Route Driver Name Role Phone PP Unavailable CCM Unavailable Summary Purpose Interface Exchange Insurance Providers Payer name Policy type / Coverage type Covered republican ID Effective Begin Date Effective End Date WPS Medicare Part B Medicare Part B [id number] Unknown Unknown FOR LIFE WPS Medicare Part B [id number] Unknown Unknown Family history Father Diagnosis Age At Onset No Known Diseases N/A Mother Diagnosis Age At Onset No Known Diseases N/A Social History Social History Element Codes Description Effective Dates Marital status Unknown 04/26/2016 Number of children Unknown 3 04/26/2016 Employment Unknown Retired 04/26/[address]: 5599434 Former smoker Quit 1969 04/26/[address]: 037066 Currently drinks alcohol 04/26/2016 Has the patient [...] morphine ER 30 mg tablet,extended release RxNorm: 978559 1 Tablet(s) PO daily 10/29/2018 11/27/2018 Active cyanocobalamin (vit B-12) 1,000 mcg/mL injection solution RxNorm: 376776 Milliliter(s) Inj 09/28/2018 09/28/2018 Inactive morphine ER 30 mg tablet,extended release RxNorm: 752930 1 Tablet(s) PO daily 09/28/2018 10/27/2018 Inactive morphine ER 30 mg tablet,extended release RxNorm: 143482 1 Tablet(s) PO daily 08/30/2018 09/27/2018 Inactive cyanocobalamin (vit B-12) 1,000 mcg/mL injection solution RxNorm: 949658 Milliliter(s) Inj 08/30/2018 08/30/2018 Inactive cyanocobalamin (vit B-12) 1,000 mcg/mL injection solution RxNorm: 856885 Milliliter(s) Inj 07/31/2018 07/31/2018 Inactive morphine ER 30 mg tablet,extended release RxNorm: 688679 1 Tablet(s) PO daily 07/31/2018 08/29/2018 Inactive amlodipine 5 mg tablet RxNorm: 925164 1 Tablet(s) PO QPM 07/11/2018 01/06/2019 Active cyanocobalamin (vit B-12) 1,000 mcg/mL injection solution RxNorm: 137229 1 Milliliter(s) Inj 07/02/2018 07/02/2018 Inactive morphine ER 30 mg tablet,extended release RxNorm: 940608 1 Tablet(s) PO daily 07/02/2018 07/30/2018 Inactive morphine ER 30 mg tablet,extended release RxNorm: 708502 1 Tablet(s) PO daily 05/31/2018 06/29/2018 Inactive cyanocobalamin (vit B-12) 1,000 mcg/mL injection solution RxNorm: 676794 Milliliter(s) Inj 05/31/2018 05/31/2018 Inactive Protonix 40 mg tablet,delayed release RxNorm: 215483 1 Tablet(s) PO daily 05/23/2018 06/21/2018 Inactive Carafate 1 gram tablet RxNorm: 920053 1 Tablet(s) PO AC & HS as needed 05/23/2018 06/21/2018 Inactive cyanocobalamin (vit B-12) 1,000 mcg/mL injection solution RxNorm: 731553 1 Milliliter(s) Inj 05/03/2018 05/03/2018 Inactive morphine ER 30 mg tablet,extended release RxNorm: 000276 1 Tablet(s) PO daily 04/04/2018 05/03/2018 Inactive cyanocobalamin (vit B-12) 1,000 mcg/mL injection solution RxNorm: 106097 1 Milliliter(s) Inj 04/04/2018 04/04/2018 Inactive cyanocobalamin (vit B-12) 1,000 mcg/mL injection solution RxNorm: 986286 1 Milliliter(s) Inj 03/05/2018 03/05/2018 Inactive morphine ER 30 mg tablet,extended release RxNorm: 440883 1 Tablet(s) PO daily 03/05/2018 04/03/2018 Inactive cyanocobalamin (vit B-12) 1,000 mcg/mL injection solution RxNorm: 257638 1 Milliliter(s) Inj 01/30/2018 01/30/2018 Inactive cyanocobalamin (vit B-12) 1,000 mcg/mL injection solution RxNorm: 060691 1 Milliliter(s) Inj 01/01/2018 01/01/2018 Inactive morphine ER 30 mg tablet,extended release RxNorm: 513731 1 Tablet(s) PO daily 01/01/2018 01/30/2018 Inactive lisinopril 20 mg tablet RxNorm: 453589 1 Tablet(s) PO BID 12/18/2017 12/12/2018 Active amlodipine 5 mg tablet RxNorm: 762910 1 Tablet(s) PO QPM 12/18/2017 06/15/2018 Inactive cyanocobalamin (vit B-12) 1,000 mcg/mL injection solution RxNorm: 086948 1 Milliliter(s) Inj 11/28/2017 11/28/2017 Inactive morphine ER 30 mg tablet,extended release RxNorm: 606874 1 Tablet(s) PO daily 11/28/2017 12/27/2017 Inactive morphine ER 30 mg tablet,extended release RxNorm: 230108 1 Tablet(s) PO daily 11/09/2017 11/27/2017 Inactive cyanocobalamin (vit B-12) 1,000 mcg/mL injection solution RxNorm: 773764 1 Milliliter(s) Inj 10/24/2017 10/24/2017 Inactive morphine ER 30 mg tablet,extended release RxNorm: 119210 1 Tablet(s) PO daily 10/10/2017 11/08/2017 Inactive hydrochlorothiazide 25 mg tablet RxNorm: 117485 1 Tablet(s) PO daily 10/10/2017 11/08/2017 Inactive cyanocobalamin (vit B-12) 1,000 mcg/mL injection solution RxNorm: 601988 1 Milliliter(s) Inj 09/26/2017 09/26/2017 Inactive hydrochlorothiazide 12.5 mg tablet RxNorm: 760936 1 Tablet(s) PO daily 09/26/2017 10/25/2017 Inactive morphine ER 30 mg tablet,extended release RxNorm: 377548 1 Tablet(s) PO daily 09/12/2017 10/09/2017 Inactive cyanocobalamin (vit B-12) 1,000 mcg/mL injection solution RxNorm: 984243 1 Milliliter(s) Inj 08/10/2017 08/10/2017 Inactive morphine ER 30 mg tablet,extended release RxNorm: 024834 1 Tablet(s) PO daily 08/10/2017 09/08/2017 Inactive Vitamin B-12 1,000 mcg/mL injection solution RxNorm: 587160 1 Milliliter(s) Inj month 07/21/2017 No Stop Date Active B12 INJECTIONS MONTHLY cyanocobalamin (vit B-12) 1,000 mcg/mL injection solution RxNorm: 156164 1 Milliliter(s) Inj 07/18/2017 07/18/2017 Inactive morphine ER 30 mg tablet,extended release RxNorm: 633035 1 Tablet(s) PO daily 07/13/2017 08/09/2017 Inactive morphine ER 30 mg tablet,extended release RxNorm: 559852 1 Tablet(s) PO daily 06/15/2017 07/12/2017 Inactive cyanocobalamin (vit B-12) 1,000 mcg/mL injection solution RxNorm: 309092 1 Milliliter(s) Inj 05/16/2017 05/16/2017 Inactive morphine ER 30 mg tablet,extended release RxNorm: 805137 1 Tablet(s) PO daily 04/13/2017 05/12/2017 Inactive cyanocobalamin (vit B-12) 1,000 mcg/mL injection solution RxNorm: 566885 1 Milliliter(s) Inj 03/14/2017 03/14/2017 Inactive morphine ER 30 mg tablet,extended release RxNorm: 165451 1 Tablet(s) PO daily 03/14/2017 04/12/2017 Inactive morphine ER 30 mg tablet,extended release RxNorm: 042496 1 Tablet(s) PO daily 02/13/2017 03/13/2017 Inactive Kenalog 40 mg/mL suspension for injection RxNorm: 0502006 1 Milliliter(s) Inj 01/12/2017 01/12/2017 Inactive cyanocobalamin (vit B-12) 1,000 mcg/mL injection solution RxNorm: 655663 1 Milliliter(s) Inj 01/12/2017 01/12/2017 Inactive Zithromax Z-[place] 250 mg tablet RxNorm: 461343 1 Tablet(s) PO UD 01/12/2017 01/16/2017 Inactive ceftriaxone 500 mg solution for injection RxNorm: 1760413 1 Milliliter(s) Inj 01/12/2017 01/12/2017 Inactive Vitamin B-12 1,000 mcg/mL injection solution RxNorm: 515406 1 Milliliter(s) Inj EVERY OTHER MONTH 01/04/2017 07/20/2017 Inactive lisinopril 20 mg tablet RxNorm: 186484 1 Tablet(s) PO BID 01/02/2017 12/17/2017 Inactive lisinopril 20 mg tablet RxNorm: 734184 1 Tablet(s) PO BID 12/12/2016 01/01/2017 Inactive morphine ER 30 mg tablet,extended release RxNorm: 454369 1 Tablet(s) PO daily 12/08/2016 01/06/2017 Inactive lisinopril 20 mg tablet RxNorm: 883150 1 Tablet(s) PO BID 11/03/2016 12/11/2016 Inactive morphine ER 30 mg tablet,extended release RxNorm: 288978 1 Tablet(s) PO daily 11/03/2016 12/02/2016 Inactive cyanocobalamin (vit B-12) 1,000 mcg/mL injection solution RxNorm: 005297 1 Milliliter(s) Inj 10/27/2016 10/27/2016 Inactive lisinopril 10 mg tablet RxNorm: 882253 1 Tablet(s) PO BID 10/06/2016 11/02/2016 Inactive lisinopril 10 mg tablet RxNorm: 979687 1 Tablet(s) PO daily 09/06/2016 10/05/2016 Inactive morphine ER 30 mg tablet,extended release RxNorm: 787109 1 Tablet(s) PO daily 08/18/2016 09/16/2016 Inactive cyanocobalamin (vit B-12) 1,000 mcg/mL injection solution RxNorm: 604767 Milliliter(s) Inj 07/27/2016 07/27/2016 Inactive morphine ER 30 mg tablet,extended release RxNorm: 658043 1 Tablet(s) PO daily 07/21/2016 08/17/2016 Inactive morphine ER 30 mg tablet,extended release RxNorm: 970615 1 Tablet(s) PO daily 06/20/2016 07/19/2016 Inactive morphine ER 30 mg tablet,extended release RxNorm: 929314 1 Tablet(s) PO daily 05/20/2016 06/19/2016 Inactive cyanocobalamin (vit B-12) 1,000 mcg/mL injection solution RxNorm: 976241 1 Milliliter(s) Inj 04/26/2016 04/26/2016 Inactive gentamicin 0.3 % eye drops RxNorm: 995820 2 Drop(s) OPH Q4H 04/26/2016 05/02/2016 Inactive Vitamin B-12 1,000 mcg/mL injection solution RxNorm: 081576 1 Milliliter(s) Inj EVERY 3 MONTHS No Start Date 01/03/2017 Inactive Claritin 10 mg tablet RxNorm: 803314 1 Tablet(s) PO daily No Start Date 07/17/2017 Inactive Venofer intravenous RxNorm: 48774 intravenous No Start Date 08/14/2018 Inactive morphine ER 30 mg tablet,extended release RxNorm: 679041 1 Tablet(s) PO daily No Start Date 04/25/2016 Inactive Medication Administered Medication Codes Instructions Start Date Status cyanocobalamin (vit B-12) 1,000 mcg/mL injection solution RxNorm: 686994 Milliliter 09/28/2018 No longer Active cyanocobalamin (vit B-12) 1,000 mcg/mL injection solution RxNorm: 552283 Milliliter 08/30/2018 No longer Active cyanocobalamin (vit B-12) 1,000 mcg/mL injection solution RxNorm: 073144 Milliliter 07/31/2018 No longer Active cyanocobalamin (vit B-12) 1,000 mcg/mL injection solution RxNorm: 732077 1Milliliter 07/02/2018 No longer Active cyanocobalamin (vit B-12) 1,000 mcg/mL injection solution RxNorm: 038053 Milliliter 05/31/2018 No longer Active cyanocobalamin (vit B-12) 1,000 mcg/mL injection solution RxNorm: 928779 1Milliliter 05/03/2018 No longer Active cyanocobalamin (vit B-12) 1,000 mcg/mL injection solution RxNorm: 960183 1Milliliter 04/04/2018 No longer Active cyanocobalamin (vit B-12) 1,000 mcg/mL injection solution RxNorm: 340970 1Milliliter 03/05/2018 No longer Active cyanocobalamin (vit B-12) 1,000 mcg/mL injection solution RxNorm: 323979 1Milliliter 01/30/2018 No longer Active cyanocobalamin (vit B-12) 1,000 mcg/mL injection solution RxNorm: 354550 1Milliliter 01/01/2018 No longer Active cyanocobalamin (vit B-12) 1,000 mcg/mL injection solution RxNorm: 078186 1Milliliter 11/28/2017 No longer Active cyanocobalamin (vit B-12) 1,000 mcg/mL injection solution RxNorm: 914086 1Milliliter 10/24/2017 No longer Active cyanocobalamin (vit B-12) 1,000 mcg/mL injection solution RxNorm: 368979 1Milliliter 09/26/2017 No longer Active cyanocobalamin (vit B-12) 1,000 mcg/mL injection solution RxNorm: 206357 1Milliliter 08/10/2017 No longer Active cyanocobalamin (vit B-12) 1,000 mcg/mL injection solution RxNorm: 544659 1Milliliter 07/18/2017 No longer Active cyanocobalamin (vit B-12) 1,000 mcg/mL injection solution RxNorm: 938594 1Milliliter 05/16/2017 No longer Active cyanocobalamin (vit B-12) 1,000 mcg/mL injection solution RxNorm: 658190 1Milliliter 03/14/2017 No longer Active Kenalog 40 mg/mL suspension for injection RxNorm: 1198848 1Milliliter 01/12/2017 No longer Active cyanocobalamin (vit B-12) 1,000 mcg/mL injection solution RxNorm: 571785 1Milliliter 01/12/2017 No longer Active ceftriaxone 500 mg solution for injection RxNorm: 9939785 1Milliliter 01/12/2017 No longer Active cyanocobalamin (vit B-12) 1,000 mcg/mL injection solution RxNorm: 076627 1Milliliter 10/27/2016 No longer Active cyanocobalamin (vit B-12) 1,000 mcg/mL injection solution RxNorm: 796733 Milliliter 07/27/2016 No longer Active cyanocobalamin (vit B-12) 1,000 mcg/mL injection solution RxNorm: 626508 1Milliliter 04/26/2016 No longer Active Immunizations Vaccine Codes Date Status Influenza CVX: 141 05/31/2018 completed Pneumococcal (Adult) CVX: 133 12/12/2016 completed Assessments Condition Codes Effective Dates 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-10: D51.0 ICD-9: 281.0 09/28/2018 Essential (primary) hypertension ICD-10: I10 ICD-9: 401.1 [...] 32.9 pg 11/28/2017 Cbc With Differential Ord2 [place]% 12.6 % 11/28/2017 Cbc With Differential Ord2 [...] 2.87 K/ul 11/28/2017 Cbc With Differential Ord2 [place] ABS# 1.1 K/ul 11/28/2017 Cbc With Differential Ord2 Eos ABS# 0.3 K/ul 11/28/2017 Cbc With Differential Ord2 Baso ABS# 0.0 K/ul 11/28/2017 B12 Tfq053 B12 >1500.00 pg/ml 11/28/2017 Comp Metabolic Erg314 NA 139 mEq/L 11/28/2017 Comp Metabolic Jtm087 K 5.2 mEq/L 11/28/2017 Comp Metabolic Mix884 CL 106 mEq/L 11/28/2017 Comp Metabolic Cit370 CO2 28.0 mEq/L 11/28/2017 Comp Metabolic Mfg484 ANION GAP 10 11/28/2017 Comp Metabolic Lcw070 GLUCOSE 89 mg/dL 11/28/2017 Comp Metabolic Ipy100 Creat 1.1 mg/dL 11/28/2017 Comp Metabolic Lsv651 eGFR 66 ml/min/1.73m2 11/28/2017 Comp Metabolic Eqk363 BUN 18 mg/dL 11/28/2017 Comp Metabolic Tyo472 B/C Ratio 16.1 Ratio 11/28/2017 Comp Metabolic Eik892 CALCIUM 9.2 mg/dL 11/28/2017 Comp Metabolic Mfy699 ALK PHOS 89 U/L 11/28/2017 Comp Metabolic Wgh422 AST(SGOT) 22 U/L 11/28/2017 Comp Metabolic Zfw504 ALT(SGPT) 15 U/L 11/28/2017 Comp Metabolic Chp787 BILI T 0.6 mg/dL 11/28/2017 Comp Metabolic Uwc172 ALBUMIN 3.9 g/dL 11/28/2017 Comp Metabolic Gkv845 TPRO 6.5 g/dL 11/28/2017 Comp Metabolic Xhb490 GLOB 2.6 g/dL 11/28/2017 Comp Metabolic Bdf394 A/G Ratio 1.5 Ratio 11/28/2017 Comp Metabolic Elg838 Osmo 279 mOsmo 11/28/2017 Ferritin Ord22 FERRITIN [...] 33.7 % 07/18/2017 Cbc With Differential Ord2 [place]% 12.3 % 07/18/2017 Cbc With Differential Ord2 [...] 2.90 K/ul 07/18/2017 Cbc With Differential Ord2 [place] ABS# 1.1 K/ul 07/18/2017 Cbc With Differential Ord2 Eos ABS# 0.2 K/ul 07/18/2017 Cbc With Differential Ord2 Baso ABS# 0.0 K/ul 07/18/2017 Comp Metabolic Mko362 NA 140 mEq/L 07/18/2017 Comp Metabolic Gaa061 K 4.6 mEq/L 07/18/2017 Comp Metabolic Vbe521 CL 105 mEq/L 07/18/2017 Comp Metabolic Jvt465 CO2 29.0 mEq/L 07/18/2017 Comp Metabolic Ghw409 ANION GAP 11 07/18/2017 Comp Metabolic Jin501 GLUCOSE 96 mg/dL 07/18/2017 Comp Metabolic Iip946 Creat 1.0 mg/dL 07/18/2017 Comp Metabolic Hng226 eGFR 73 ml/min/1.73m2 07/18/2017 Comp Metabolic Qmk764 BUN 12 mg/dL 07/18/2017 Comp Metabolic Rid145 B/C Ratio 11.7 Ratio 07/18/2017 Comp Metabolic Ttg361 CALCIUM 9.2 mg/dL 07/18/2017 Comp Metabolic Fli249 ALK PHOS 74 U/L 07/18/2017 Comp Metabolic Woc470 AST(SGOT) 29 U/L 07/18/2017 Comp Metabolic Luy783 ALT(SGPT) 16 U/L 07/18/2017 Comp Metabolic Csp208 BILI T 0.7 mg/dL 07/18/2017 Comp Metabolic Gjf174 ALBUMIN 3.7 g/dL 07/18/2017 Comp Metabolic Sjg988 TPRO 6.5 g/dL 07/18/2017 Comp Metabolic Idh947 GLOB 2.8 g/dL 07/18/2017 Comp Metabolic Jbk179 A/G Ratio 1.3 Ratio 07/18/2017 Comp Metabolic Rwj031 Osmo 279 mOsmo 07/18/2017 Iron Ord72 Iron 114 ug/dl 07/18/2017 B12 Lst797 B12 233.00 pg/ml 07/18/2017 Tsh Ord6 hTSH [...] 33.3 pg 12/13/2016 Cbc With Differential Ord2 [place]% 17.9 % 12/13/2016 Cbc With Differential Ord2 [...] 2.71 K/ul 12/13/2016 Cbc With Differential Ord2 [place] ABS# 1.7 K/ul 12/13/2016 Cbc With Differential Ord2 Eos ABS# 0.3 K/ul 12/13/2016 Cbc With Differential Ord2 Baso ABS# 0.0 K/ul 12/13/2016 Comp Metabolic Mrr601 NA 136 mEq/L 12/13/2016 Comp Metabolic Xhx742 K 4.7 mEq/L 12/13/2016 Comp Metabolic Hko001 CL 102 mEq/L 12/13/2016 Comp Metabolic Guy580 CO2 26.0 mEq/L 12/13/2016 Comp Metabolic Oct628 ANION GAP 13 12/13/2016 Comp Metabolic Uoc812 GLUCOSE 87 mg/dL 12/13/2016 Comp Metabolic Ruy981 Creat 0.9 mg/dL 12/13/2016 Comp Metabolic Nwq085 eGFR 83 ml/min/1.73m2 12/13/2016 Comp Metabolic Rzp718 BUN 17 mg/dL 12/13/2016 Comp Metabolic Qai478 B/C Ratio 18.3 Ratio 12/13/2016 Comp Metabolic Pyw488 CALCIUM 9.1 mg/dL 12/13/2016 Comp Metabolic Bwr146 ALK PHOS 90 U/L 12/13/2016 Comp Metabolic Sbv079 AST(SGOT) 22 U/L 12/13/2016 Comp Metabolic Vaq085 ALT(SGPT) 15 U/L 12/13/2016 Comp Metabolic Pur262 BILI T 0.8 mg/dL 12/13/2016 Comp Metabolic Yhq136 ALBUMIN 3.6 g/dL 12/13/2016 Comp Metabolic Ebh309 TPRO 6.4 g/dL 12/13/2016 Comp Metabolic Cze088 GLOB 2.9 g/dL 12/13/2016 Comp Metabolic Ufx738 A/G Ratio 1.2 Ratio 12/13/2016 Comp Metabolic Tlz416 Osmo 273 mOsmo 12/13/2016 Lipid Ord30 CHOL 182 mg/dL 12/13/2016 Lipid Ord30 HDL 64.0 mg/dl 12/13/2016 Lipid Ord30 TRIG 62 mg/dL 12/13/2016 Lipid Ord30 LDL 106 mg/dL 12/13/2016 Lipid Ord30 C/HDL 2.8 Ratio 12/13/2016 Ferritin Ord22 FERRITIN 434.7 ng/mL 12/13/2016 B12 Igw134 B12 247.00 pg/ml 12/13/2016 Tibc Ord40 Iron [...] 33.7 pg 04/27/2016 Cbc With Differential Ord2 [place]% 13.7 % 04/27/2016 Cbc With Differential Ord2 [...] 3.22 K/ul 04/27/2016 Cbc With Differential Ord2 [place] ABS# 1.2 K/ul 04/27/2016 Cbc With Differential Ord2 Eos ABS# 0.3 K/ul 04/27/2016 Cbc With Differential Ord2 Baso ABS# 0.0 K/ul 04/27/2016 Comp Metabolic Hzj676 NA 138 mEq/L 04/27/2016 Comp Metabolic Rmj941 K 4.3 mEq/L 04/27/2016 Comp Metabolic Qqw989 CL 104 mEq/L 04/27/2016 Comp Metabolic Fdy371 CO2 30.0 mEq/L 04/27/2016 Comp Metabolic Peh107 ANION GAP 8 04/27/2016 Comp Metabolic Ttd899 GLUCOSE 87 mg/dL 04/27/2016 Comp Metabolic Ljg966 Creat 0.9 mg/dL 04/27/2016 Comp Metabolic Zto730 eGFR 82 ml/min/1.73m2 04/27/2016 Comp Metabolic Qsi200 BUN 13 mg/dL 04/27/2016 Comp Metabolic Val188 B/C Ratio 13.8 Ratio 04/27/2016 Comp Metabolic Har250 CALCIUM 9.0 mg/dL 04/27/2016 Comp Metabolic Ceq724 ALK PHOS 62 U/L 04/27/2016 Comp Metabolic Hbj507 AST(SGOT) 24 U/L 04/27/2016 Comp Metabolic Ifl047 ALT(SGPT) 15 U/L 04/27/2016 Comp Metabolic Fyn222 BILI T 0.7 mg/dL 04/27/2016 Comp Metabolic Tix927 ALBUMIN 3.6 g/dL 04/27/2016 Comp Metabolic Buo720 TPRO 6.1 g/dL 04/27/2016 Comp Metabolic Jyf194 GLOB 2.5 g/dL 04/27/2016 Comp Metabolic Xim690 A/G Ratio 1.4 Ratio 04/27/2016 Comp Metabolic Uak432 Osmo 275 mOsmo 04/27/2016 B12 Qqo571 B12 >1500.00 pg/ml 04/27/2016 Iron Ord72 Iron [...] tenderness 11/03/2016 None Full Exam - General 1995 Abdomen abdominal exam Overall: normal bowel sounds [...] General 1995 Ears/Nose/Throat lips/teeth/gingiva Overall: benign lips 09/06/2016 None [...] Procedure Codes Date THER/PROPH/DIAG INJ SC/IM CPT-4: 57045 09/28/2018 VITAMIN B12 INJECTION CPT- 4: J3420 09/28/2018 THER/PROPH/DIAG INJ SC/IM CPT-4: 38309 08/30/2018 VITAMIN B12 INJECTION CPT- 4: J3420 08/30/2018 VITAMIN B12 INJECTION CPT- 4: J3420 07/31/2018 THER/PROPH/DIAG INJ SC/IM CPT-4: 07633 07/31/2018 THER/PROPH/DIAG INJ SC/IM CPT-4: 87856 07/02/2018 VITAMIN B12 INJECTION CPT- 4: J3420 07/02/2018 THER/PROPH/DIAG INJ SC/IM CPT-4: 19465 05/31/2018 ADMIN INFLUENZA VIRUS VAC CPT-4: G0008 05/31/2018 VITAMIN B12 INJECTION CPT- 4: J3420 05/31/2018 FLU VACC PRSV FREE INC ANTIG Formatting Model/CDA Sections, Assigned to/Mary Grace Rosado CPT-4: 03155Vnkdnck 05/31/2018 VITAMIN B12 INJECTION CPT- 4: J3420 05/03/2018 THER/PROPH/DIAG INJ SC/IM CPT-4: 38455 05/03/2018 THER/PROPH/DIAG INJ SC/IM CPT-4: 76508 04/04/2018 VITAMIN B12 INJECTION CPT- 4: J3420 04/04/2018 THER/PROPH/DIAG INJ SC/IM CPT-4: 64174 03/05/2018 VITAMIN B12 INJECTION CPT- 4: J3420 03/05/2018 VITAMIN B12 INJECTION CPT- 4: J3420 01/30/2018 THER/PROPH/DIAG INJ SC/IM CPT-4: 41127 01/30/2018 THER/PROPH/DIAG INJ SC/IM CPT-4: 10003 01/01/2018 VITAMIN B12 INJECTION CPT- 4: J3420 01/01/2018 PPPS, SUBSEQ VISIT CPT- 4: G0439 12/18/2017 THER/PROPH/DIAG INJ SC/IM CPT-4: 09344 11/28/2017 VITAMIN B12 INJECTION CPT- 4: J3420 11/28/2017 THER/PROPH/DIAG INJ SC/IM CPT-4: 91932 10/24/2017 VITAMIN B12 INJECTION CPT- 4: J3420 10/24/2017 THER/PROPH/DIAG INJ SC/IM CPT-4: 95221 09/26/2017 VITAMIN B12 INJECTION CPT- 4: J3420 09/26/2017 THER/PROPH/DIAG INJ SC/IM CPT-4: 22105 08/10/2017 VITAMIN B12 INJECTION CPT- 4: J3420 08/10/2017 THER/PROPH/DIAG INJ SC/IM CPT-4: 35761 07/18/2017 VITAMIN B12 INJECTION CPT- 4: J3420 07/18/2017 THER/PROPH/DIAG INJ SC/IM CPT-4: 58063 05/16/2017 VITAMIN B12 INJECTION CPT- 4: J3420 05/16/2017 THER/PROPH/DIAG INJ SC/IM CPT-4: 40619 03/14/2017 VITAMIN B12 INJECTION CPT- 4: J3420 03/14/2017 TRIAMCINOLONE ACET INJ NOS CPT-4: J3301 01/12/2017 ROCEPHIN, PER 250 MG CPT- 4: J0696 01/12/2017 VITAMIN B12 INJECTION CPT- 4: J3420 01/12/2017 THER/PROPH/DIAG INJ SC/IM CPT-4: 34002 01/12/2017 PPPS, SUBSEQ VISIT CPT- 4: G0439 12/12/2016 PNEUMOCOCCAL VACC [address]: 44074435 CPT-4: 00736 12/12/2016 ADMIN PNEUMOCOCCAL VACCINE SNOMED CT: 84599596 CPT-4: G0009 12/12/2016 THER/PROPH/DIAG INJ SC/IM CPT-4: 45714 10/27/2016 VITAMIN B12 INJECTION CPT- 4: J3420 10/27/2016 THER/PROPH/DIAG INJ SC/IM CPT-4: 86098 07/27/2016 VITAMIN B12 INJECTION CPT- 4: J3420 07/27/2016 THER/PROPH/DIAG INJ SC/IM CPT-4: 06417 04/26/2016 VITAMIN B12 INJECTION CPT- 4: J3420 04/26/2016 Vital Signs Date Vital 08/15/2018 Blood Pressure 1: 144/66 Code: 8480-6 BMI: 25.1 Code: 30407-0 Heart Rate 1: 75 bpm Height: 5'7" SpO2: 98% Weight: 160 lbs 05/23/2018 Blood Pressure 1: 158/64 Code: 8480-6 BMI: 24.7 Code: 88824-8 Heart Rate 1: 76 bpm Height: 5'7" SpO2: 96% Temperature: 36.7 (C) / 98.1 (F) Weight: 158 lbs 05/03/2018 Blood Pressure 1: 122/72 Code: 8480-6 BMI: 25.1 Code: 81784-2 Heart Rate 1: 74 bpm Height: 5'7" SpO2: 97% Weight: 160 lbs 01/31/2018 Blood Pressure 1: 137/77 Code: 8480-6 Blood Pressure 2: 138/68 Code: 8480-6 Heart Rate 1: 67 bpm SpO2: 98% 01/30/2018 Blood Pressure 1: 138/66 Code: 8480-6 BMI: 25.1 Code: 63049-7 Heart Rate 1: 76 bpm Height: 5'7" SpO2: 94% Weight: 160 lbs 12/18/2017 Blood Pressure 1: 152/88 Code: 8480-6 BMI: 25.8 Code: 26704-5 Heart Rate 1: 68 bpm Height: 5'7" SpO2: 96% Weight: 165 lbs 11/28/2017 Blood Pressure 1: 150/76 Code: 8480-6 BMI: 25.2 Code: 96809-7 Heart Rate 1: 78 bpm Height: 5'7" SpO2: 98% Weight: 161 lbs 10/10/2017 Blood Pressure 1: 156/76 Code: 8480-6 BMI: 24.7 Code: 31065-0 Heart Rate 1: 71 bpm Height: 5'7" SpO2: 98% Weight: 158 lbs 09/26/2017 Blood Pressure 1: 162/82 Code: 8480-6 BMI: 24.7 Code: 24051-2 Heart Rate 1: 69 bpm Height: 5'7" SpO2: 99% Weight: 158 lbs 08/16/2017 Blood Pressure 1: 154/82 Code: 8480-6 BMI: 24.1 Code: 47810-0 Heart Rate 1: 58 bpm Height: 5'7" SpO2: 96% Weight: 154 lbs 07/18/2017 Blood Pressure 1: 152/88 Code: 8480-6 BMI: 25.2 Code: 65081-5 Heart Rate 1: 72 bpm Height: 5'7" SpO2: 98% Weight: 161 lbs 05/16/2017 Blood Pressure 1: 136/78 Code: 8480-6 BMI: 24.8 Code: 64877-4 Heart Rate 1: 71 bpm Height: 5'7" SpO2: 96% Weight: 158 lbs 8 oz 03/14/2017 Blood Pressure 1: 142/74 Code: 8480-6 BMI: 23.8 Code: 45489-2 Heart Rate 1: 69 bpm Height: 5'7" SpO2: 94% Weight: 152 lbs 01/12/2017 Blood Pressure 1: 156/90 Code: 8480-6 BMI: 23.4 Code: 33406-1 Heart Rate 1: 90 bpm Height: 5'7" SpO2: 97% Temperature: 37.4 (C) / 99.3 (F) Weight: 149 lbs 8 oz 12/12/2016 Blood Pressure 1: 140/78 Code: 8480-6 BMI: 24.3 Code: 12443-1 Heart Rate 1: 73 bpm Height: 5'7" SpO2: 96% Waist Measure (cm): 90 cm Weight: 155 lbs 12/08/2016 Blood Pressure 1: 148/84 Code: 8480-6 BMI: 24.3 Code: 93808-4 Heart Rate 1: 80 bpm Height: 5'7" SpO2: 96% Weight: 155 lbs 11/03/2016 Blood Pressure 1: 156/84 Code: 8480-6 Blood Pressure 2: 155/94 Code: 8480-6 BMI: 24.3 Code: 31908-8 Heart Rate 1: 81 bpm Height: 5'7" SpO2: 98% Weight: 155 lbs 10/06/2016 Blood Pressure 1: 175/95 Code: 8480-6 Heart Rate 1: 77 bpm Respiratory Rate: 16 bpm SpO2: 98% Temperature: 36.4 (C) / 97.5 (F) Weight: 157 lbs 09/06/2016 Blood Pressure 1: 136/80 Code: 8480-6 BMI: 24.1 Code: 90529-5 Heart Rate 1: 82 bpm Height: 5'8" SpO2: 97% Weight: 156 lbs 08/23/2016 Blood Pressure 1: 160/80 Code: 8480-6 BMI: 24.4 Code: 68606-3 Heart Rate 1: 88 bpm Height: 5'8" SpO2: 95% Weight: 158 lbs 04/26/2016 Blood Pressure 1: 156/74 Code: 8480-6 BMI: 24.5 Code: 67310-0 Heart Rate 1: 70 bpm Height: 5'8" [...] Essential (primary) hypertension[ICD10: I10] Andree Paris MD, [facility] CPT-4: 53089 08/15/2018 [id number] EST. PATIENT, LEVEL III Diagnosis: Dysphagia, pharyngoesophageal phase[ICD10: R13.14] Teresa Paris MD, [facility] CPT-4: 51076 05/23/2018 ([id number]) [id number] EST. PATIENT, LEVEL IV Diagnosis: Essential (primary) hypertension[ICD10: I10] Diagnosis: Chronic pain syndrome[ICD10: G89.4] Diagnosis: 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 deficiency[ICD10: D51.0] Diagnosis: Other iron deficiency anemias[ICD10: D50.8] Diagnosis: Slow transit constipation[ICD10: K59.01] Andree Paris MD, [facility] CPT-4: 37866 05/03/2018 ([id number]) Miscellaneous no charge Diagnosis: Essential (primary) hypertension[ICD10: I10] Teresa Paris MD, [facility] CPT-4: 64793 01/31/2018 ([id number]) [id number] EST. PATIENT, LEVEL IV Diagnosis: Essential (primary) hypertension[ICD10: I10] Diagnosis: Chronic pain syndrome[ICD10: G89.4] Andree Paris MD, [facility] CPT- 4: 27843 01/30/2018 ([id number]) [id number] EST. PATIENT, LEVEL IV Diagnosis: Essential (primary) hypertension[ICD10: I10] Diagnosis: Chronic pain syndrome[ICD10: G89.4] Diagnosis: 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 deficiency[ICD10: D51.0] Diagnosis: Iron deficiency anemia, unspecified[ICD10: D50.9] Ana Paris MD, [facility] CPT-4: 19199 11/28/2017 [id number] EST. PATIENT, LEVEL IV Diagnosis: Essential (primary) hypertension[ICD10: I10] Diagnosis: Slow transit constipation[ICD10: K59.01] Diagnosis: Chronic pain syndrome[ICD10: G89.4] Teresa Paris MD, [facility] CPT- 4: 24800 10/10/2017 23731 EST. PATIENT, LEVEL IV Diagnosis: 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 deficiency[ICD10: D51.0] Diagnosis: Essential (primary) hypertension[ICD10: I10] Diagnosis: Chronic pain syndrome[ICD10: G89.4] Teresa Paris MD, [facility] CPT- 4: 04022 09/26/2017 [id number] EST. PATIENT, LEVEL III Diagnosis: Dysphagia, pharyngoesophageal phase[ICD10: R13.14] Teresa Paris MD, [facility] CPT-4: 98148 08/16/2017 ([id number]) 52946 EST. PATIENT, LEVEL IV Diagnosis: Essential (primary) hypertension[ICD10: I10] Diagnosis: Chronic pain syndrome[ICD10: G89.4] Diagnosis: 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 deficiency[ICD10: D51.0] Diagnosis: Iron deficiency anemia, unspecified[ICD10: D50.9] Diagnosis: Dysphagia, pharyngoesophageal phase[ICD10: R13.14] Ana Paris MD, [facility] CPT-4: 97324 07/18/2017 ([id number]) 33001 EST. PATIENT, LEVEL III Diagnosis: Essential (primary) hypertension[ICD10: I10] Diagnosis: Chronic pain syndrome[ICD10: G89.4] Diagnosis: 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 deficiency[ICD10: D51.0] nAa Paris MD, [facility] CPT-4: 64806 05/16/2017 ([id number]) 57898 EST. PATIENT, LEVEL III Diagnosis: Essential (primary) hypertension[ICD10: I10] Diagnosis: Chronic pain syndrome[ICD10: G89.4] Diagnosis: 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 deficiency[ICD10: D51.0] Ana Paris MD, [facility] CPT-4: 90614 03/14/2017 ([id number]) 47432 EST. PATIENT, LEVEL III Diagnosis: Cough[ICD10: R05] Diagnosis: Acute bronchitis, unspecified[ICD10: J20.9] Diagnosis: Chronic pain syndrome[ICD10: G89.4] Diagnosis: 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 deficiency[ICD10: D51.0] Ana Paris MD, [facility] CPT-4: 53071 01/12/2017 ([id number]) 97796 EST. PATIENT, LEVEL III Diagnosis: Essential (primary) hypertension[ICD10: I10] Diagnosis: Chronic pain syndrome[ICD10: G89.4] Ana Paris MD, [facility] CPT-4: 27961 12/08/2016 ([id number]) 75339 EST. PATIENT, LEVEL III Diagnosis: Essential (primary) hypertension[ICD10: I10] Ana Paris MD, [facility] CPT-4: 82935 11/03/2016 ([id number]) 68036 EST. PATIENT, LEVEL III Diagnosis: Essential (primary) hypertension[ICD10: I10] Ana Paris MD [facility] CPT-4: 09967 10/06/2016 ([id number]) 61075 EST. PATIENT, LEVEL III Diagnosis: Essential (primary) hypertension[ICD10: I10] Ana Paris MD [facility] CPT-4: 35642 09/06/2016 ([id number]) 80338 EST. PATIENT, LEVEL III Diagnosis: Essential (primary) hypertension[ICD10: I10] Ana Paris MD, [facility] CPT-4: 27364 08/23/2016 ([id number]) OFFICE VISIT, NEW - LEVEL 4 Diagnosis: Noninfective gastroenteritis and colitis, unspecified[ICD10: K52.9] Diagnosis: 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 deficiency[ICD10: D51.0] Diagnosis: Iron deficiency anemia, unspecified[ICD10: D50.9] Diagnosis: Chalazion left upper eyelid[ICD10: H00.14] Diagnosis: Elevated blood-pressure reading, without diagnosis of hypertension[ICD10: R03.0] Andree Paris MD, [facility] CPT-4: 82330 04/26/2016 Plan of Care Planned Activity Notes Codes Status Date Appointment: Injection 09/28/2018 Patient Education: Patient Medication [...] amlodipine 08/15/2018 [phone] ([facility] min) Moderate 08/15/2018 Patient Education: [...] plan. 05/23/2018 Appointment: Teresa Bardales WPtel: [phone] [phone] (15 min) Moderate 05/23/2018 Patient Education: Patient [...] current management. 05/03/2018 Appointment[phone] ([facility] min) Moderate 05/03/2018 Patient Education: [...] of over-medication. 01/30/2018 App[facility]ment[phone] (15 min) Moderate 01/30/2018 Patient Education: [...] concerns. 12/18/2017 [phone] [facility] - Annual Wellness Visit 12/18/2017 Patient [...] labs 11/28/2017 App[facility]ment: [phone] (30 min) [facility] 11/28/2017 Patient Education: Patient Medication Summary Completed [...] improved on this regimen. 10/10/2017 Appointment: Teresa Bardalestel: [facility]5 [facility] (30 min) Complex 10/10/2017 Patient Education: Patient [...] the consequences of over-medication. 09/26/2017 Appointment: Teresa Bardalesl: [facility] (30 min) Complex 09/26/2017 Patient Education: Patient Medication Summary Completed 09/26/2017 Appointment: Teresa Bardales WPtel: [address] [place], [place] [phone] (30 min) Complex 09/19/2017 Referral: External, Ordering Provider Referral Appointment Confirmed 08/17/2017 Visit Plan: Dysphagia - worsening since yesterday - will refer to Dr. Harper for possible EGD - pt is to notify clinic if symptoms do not improve, if they worsen, or with any acute changes, questions, or concerns. 08/16/2017 Appointment: Teresa Bardalestel: [facility] (30 min) Complex 08/16/2017 Patient Education: Patient Medication Summary Completed 08/16/2017 Care Plan: Referral Order SNOMED-CT : [id number] Pending 08/16/2017 Appointment: Injection 08/10/2017 Patient Education: [...] today first 07/18/2017 Appointment: Ana Pedraza WPtel: [phone] (30 min) Complex 07/18/2017 Patient Education: Patient [...] of over-medication. 05/16/2017 Appointment: Ana Pedraza WPtel: [phone] ([facility] min) Complex 05/16/2017 Patient Education: Patient [...] of over-medication. 03/14/2017 Appointment: [phone] (30 min) Complex 03/14/2017 Patient Education: Patient [...] over-medication. 01/12/2017 Appointment: [phone] (30 min) Complex 01/12/2017 Patient Education: [...] care surrogate. 12/12/2016 Appointment: Ana Pedraza WPtel: [phone] [phone] [facility] - Annual Wellness Visit 12/12/2016 Patient [...] over-medication. 12/08/2016 Appointment: Ana Pedraza WPtel: [phone] (30 min) Complex 12/08/2016 Patient Education: Patient [...] concerns. 11/03/2016 Appointment: Ana Pedraza WPtel: [facility]3 [phone] (30 min) Complex 11/03/2016 Patient Education: Patient [...] acute concerns. 10/06/2016 Appointment: Ana Pedraza WPtel: [phone] (30 min) Complex 10/06/2016 Patient Education: Patient [...] concerns. 09/06/2016 Appointment: Ana Pedraza WPtel: [phone] (30 min) Complex 09/06/2016 Patient Education: Patient [...] concerns. 08/23/2016 Appointment: Ana Pedraza WPtel: [phone] (15 min) Moderate 08/23/2016 Patient Education: Patient [...] for gentamycin. 04/26/2016 Appointment: [facility]el[phone] [facility] 04/26/2016 Patient Education: Patient [...]
--- OUTSIDE RECORDS SUMMARY | 2019-02-13 09:42 | XMS REPORT | CCD ---
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 Name Role Phone PP Unavailable CCM Unavailable Summary Purpose Interface Exchange Insurance Providers Payer name Policy type / Coverage type Covered democrat ID Effective Begin Date Effective End Date WPS Medicare Part B Medicare Part B [id number] Unknown Unknown FOR LIFE WPS Medicare Part B [id number] Unknown Unknown Family history Father Diagnosis Age At Onset No Known Diseases N/A Mother Diagnosis Age At Onset No Known Diseases N/A Social History Social History Element Codes Description Effective Dates Marital status Unknown 04/26/2016 Number of children Unknown 3 04/26/2016 Employment Unknown Retired 04/26/[address]: 8196186 Former smoker Quit 1968 04/26/[address]: 371150 Currently drinks alcohol 04/26/2016 Has the patient [...] (vit B-12) 1,000 mcg/mL injection solution RxNorm: 509858 Milliliter(s) Inj 09/28/2018 09/28/2018 Inactive morphine ER 30 mg tablet,extended release RxNorm: 353563 1 Tablet(s) PO daily 09/28/2018 10/27/2018 Active morphine ER 30 mg tablet,extended release RxNorm: 002419 1 Tablet(s) PO daily 08/30/2018 09/27/2018 Inactive cyanocobalamin (vit B-12) 1,000 mcg/mL injection solution RxNorm: 030935 Milliliter(s) Inj 08/30/2018 08/30/2018 Inactive cyanocobalamin (vit B-12) 1,000 mcg/mL injection solution RxNorm: 516687 Milliliter(s) Inj 07/31/2018 07/31/2018 Inactive morphine ER 30 mg tablet,extended release RxNorm: 397155 1 Tablet(s) PO daily 07/31/2018 08/29/2018 Inactive amlodipine 5 mg tablet RxNorm: 891766 1 Tablet(s) PO QPM 07/11/2018 01/06/2019 Active cyanocobalamin (vit B-12) 1,000 mcg/mL injection solution RxNorm: 799103 1 Milliliter(s) Inj 07/02/2018 07/02/2018 Inactive morphine ER 30 mg tablet,extended release RxNorm: 222762 1 Tablet(s) PO daily 07/02/2018 07/30/2018 Inactive morphine ER 30 mg tablet,extended release RxNorm: 262401 1 Tablet(s) PO daily 05/31/2018 06/29/2018 Inactive cyanocobalamin (vit B-12) 1,000 mcg/mL injection solution RxNorm: 521224 Milliliter(s) Inj 05/31/2018 05/31/2018 Inactive Protonix 40 mg tablet,delayed release RxNorm: 610405 1 Tablet(s) PO daily 05/23/2018 06/21/2018 Inactive Carafate 1 gram tablet RxNorm: 981330 1 Tablet(s) PO AC & HS as needed 05/23/2018 06/21/2018 Inactive cyanocobalamin (vit B-12) 1,000 mcg/mL injection solution RxNorm: 942961 1 Milliliter(s) Inj 05/03/2018 05/03/2018 Inactive morphine ER 30 mg tablet,extended release RxNorm: 628388 1 Tablet(s) PO daily 04/04/2018 05/03/2018 Inactive cyanocobalamin (vit B-12) 1,000 mcg/mL injection solution RxNorm: 225400 1 Milliliter(s) Inj 04/04/2018 04/04/2018 Inactive cyanocobalamin (vit B-12) 1,000 mcg/mL injection solution RxNorm: 850338 1 Milliliter(s) Inj 03/05/2018 03/05/2018 Inactive morphine ER 30 mg tablet,extended release RxNorm: 561943 1 Tablet(s) PO daily 03/05/2018 04/03/2018 Inactive cyanocobalamin (vit B-12) 1,000 mcg/mL injection solution RxNorm: 728068 1 Milliliter(s) Inj 01/30/2018 01/30/2018 Inactive cyanocobalamin (vit B-12) 1,000 mcg/mL injection solution RxNorm: 001273 1 Milliliter(s) Inj 01/01/2018 01/01/2018 Inactive morphine ER 30 mg tablet,extended release RxNorm: 090600 1 Tablet(s) PO daily 01/01/2018 01/30/2018 Inactive lisinopril 20 mg tablet RxNorm: 274646 1 Tablet(s) PO BID 12/18/2017 12/12/2018 Active amlodipine 5 mg tablet RxNorm: 147259 1 Tablet(s) PO QPM 12/18/2017 06/15/2018 Inactive cyanocobalamin (vit B-12) 1,000 mcg/mL injection solution RxNorm: 683456 1 Milliliter(s) Inj 11/28/2017 11/28/2017 Inactive morphine ER 30 mg tablet,extended release RxNorm: 674175 1 Tablet(s) PO daily 11/28/2017 12/27/2017 Inactive morphine ER 30 mg tablet,extended release RxNorm: 337452 1 Tablet(s) PO daily 11/09/2017 11/27/2017 Inactive cyanocobalamin (vit B-12) 1,000 mcg/mL injection solution RxNorm: 134020 1 Milliliter(s) Inj 10/24/2017 10/24/2017 Inactive morphine ER 30 mg tablet,extended release RxNorm: 848314 1 Tablet(s) PO daily 10/10/2017 11/08/2017 Inactive hydrochlorothiazide 25 mg tablet RxNorm: 867281 1 Tablet(s) PO daily 10/10/2017 11/08/2017 Inactive cyanocobalamin (vit B-12) 1,000 mcg/mL injection solution RxNorm: 090333 1 Milliliter(s) Inj 09/26/2017 09/26/2017 Inactive hydrochlorothiazide 12.5 mg tablet RxNorm: 681548 1 Tablet(s) PO daily 09/26/2017 10/25/2017 Inactive morphine ER 30 mg tablet,extended release RxNorm: 910138 1 Tablet(s) PO daily 09/12/2017 10/09/2017 Inactive cyanocobalamin (vit B-12) 1,000 mcg/mL injection solution RxNorm: 326165 1 Milliliter(s) Inj 08/10/2017 08/10/2017 Inactive morphine ER 30 mg tablet,extended release RxNorm: 648604 1 Tablet(s) PO daily 08/10/2017 09/08/2017 Inactive Vitamin B-12 1,000 mcg/mL injection solution RxNorm: 749276 1 Milliliter(s) Inj month 07/21/2017 No Stop Date Active B12 INJECTIONS MONTHLY cyanocobalamin (vit B-12) 1,000 mcg/mL injection solution RxNorm: 811351 1 Milliliter(s) Inj 07/18/2017 07/18/2017 Inactive morphine ER 30 mg tablet,extended release RxNorm: 975014 1 Tablet(s) PO daily 07/13/2017 08/09/2017 Inactive morphine ER 30 mg tablet,extended release RxNorm: 424733 1 Tablet(s) PO daily 06/15/2017 07/12/2017 Inactive cyanocobalamin (vit B-12) 1,000 mcg/mL injection solution RxNorm: 024499 1 Milliliter(s) Inj 05/16/2017 05/16/2017 Inactive morphine ER 30 mg tablet,extended release RxNorm: 085682 1 Tablet(s) PO daily 04/13/2017 05/12/2017 Inactive cyanocobalamin (vit B-12) 1,000 mcg/mL injection solution RxNorm: 959582 1 Milliliter(s) Inj 03/14/2017 03/14/2017 Inactive morphine ER 30 mg tablet,extended release RxNorm: 371619 1 Tablet(s) PO daily 03/14/2017 04/12/2017 Inactive morphine ER 30 mg tablet,extended release RxNorm: 744824 1 Tablet(s) PO daily 02/13/2017 03/13/2017 Inactive Kenalog 40 mg/mL suspension for injection RxNorm: 9521590 1 Milliliter(s) Inj 01/12/2017 01/12/2017 Inactive cyanocobalamin (vit B-12) 1,000 mcg/mL injection solution RxNorm: 377700 1 Milliliter(s) Inj 01/12/2017 01/12/2017 Inactive Zithromax Z-[place] 250 mg tablet RxNorm: 266116 1 Tablet(s) PO UD 01/12/2017 01/16/2017 Inactive ceftriaxone 500 mg solution for injection RxNorm: 9644241 1 Milliliter(s) Inj 01/12/2017 01/12/2017 Inactive Vitamin B-12 1,000 mcg/mL injection solution RxNorm: 504867 1 Milliliter(s) Inj EVERY OTHER MONTH 01/04/2017 07/20/2017 Inactive lisinopril 20 mg tablet RxNorm: 447781 1 Tablet(s) PO BID 01/02/2017 12/17/2017 Inactive lisinopril 20 mg tablet RxNorm: 674948 1 Tablet(s) PO BID 12/12/2016 01/01/2017 Inactive morphine ER 30 mg tablet,extended release RxNorm: 763892 1 Tablet(s) PO daily 12/08/2016 01/06/2017 Inactive lisinopril 20 mg tablet RxNorm: 614380 1 Tablet(s) PO BID 11/03/2016 12/11/2016 Inactive morphine ER 30 mg tablet,extended release RxNorm: 385701 1 Tablet(s) PO daily 11/03/2016 12/02/2016 Inactive cyanocobalamin (vit B-12) 1,000 mcg/mL injection solution RxNorm: 641004 1 Milliliter(s) Inj 10/27/2016 10/27/2016 Inactive lisinopril 10 mg tablet RxNorm: 718200 1 Tablet(s) PO BID 10/06/2016 11/02/2016 Inactive lisinopril 10 mg tablet RxNorm: 763139 1 Tablet(s) PO daily 09/06/2016 10/05/2016 Inactive morphine ER 30 mg tablet,extended release RxNorm: 856403 1 Tablet(s) PO daily 08/18/2016 09/16/2016 Inactive cyanocobalamin (vit B-12) 1,000 mcg/mL injection solution RxNorm: 267440 Milliliter(s) Inj 07/27/2016 07/27/2016 Inactive morphine ER 30 mg tablet,extended release RxNorm: 833301 1 Tablet(s) PO daily 07/21/2016 08/17/2016 Inactive morphine ER 30 mg tablet,extended release RxNorm: 416624 1 Tablet(s) PO daily 06/20/2016 07/19/2016 Inactive morphine ER 30 mg tablet,extended release RxNorm: 087795 1 Tablet(s) PO daily 05/20/2016 06/19/2016 Inactive cyanocobalamin (vit B-12) 1,000 mcg/mL injection solution RxNorm: 084335 1 Milliliter(s) Inj 04/26/2016 04/26/2016 Inactive gentamicin 0.3 % eye drops RxNorm: 177921 2 Drop(s) OPH Q4H 04/26/2016 05/02/2016 Inactive Vitamin B-12 1,000 mcg/mL injection solution RxNorm: 196758 1 Milliliter(s) Inj EVERY 3 MONTHS No Start Date 01/03/2017 Inactive Claritin 10 mg tablet RxNorm: 923655 1 Tablet(s) PO daily No Start Date 07/17/2017 Inactive Venofer intravenous RxNorm: 63389 intravenous No Start Date 08/14/2018 Inactive morphine ER 30 mg tablet,extended release RxNorm: 821440 1 Tablet(s) PO daily No Start Date 04/25/2016 Inactive Medication Administered Medication Codes Instructions Start Date Status cyanocobalamin (vit B-12) 1,000 mcg/mL injection solution RxNorm: 739662 Milliliter 09/28/2018 Active cyanocobalamin (vit B-12) 1,000 mcg/mL injection solution RxNorm: 369811 Milliliter 08/30/2018 No longer Active cyanocobalamin (vit B-12) 1,000 mcg/mL injection solution RxNorm: 976640 Milliliter 07/31/2018 No longer Active cyanocobalamin (vit B-12) 1,000 mcg/mL injection solution RxNorm: 607716 1Milliliter 07/02/2018 No longer Active cyanocobalamin (vit B-12) 1,000 mcg/mL injection solution RxNorm: 666468 Milliliter 05/31/2018 No longer Active cyanocobalamin (vit B-12) 1,000 mcg/mL injection solution RxNorm: 104416 1Milliliter 05/03/2018 No longer Active cyanocobalamin (vit B-12) 1,000 mcg/mL injection solution RxNorm: 167348 1Milliliter 04/04/2018 No longer Active cyanocobalamin (vit B-12) 1,000 mcg/mL injection solution RxNorm: 346490 1Milliliter 03/05/2018 No longer Active cyanocobalamin (vit B-12) 1,000 mcg/mL injection solution RxNorm: 546559 1Milliliter 01/30/2018 No longer Active cyanocobalamin (vit B-12) 1,000 mcg/mL injection solution RxNorm: 773361 1Milliliter 01/01/2018 No longer Active cyanocobalamin (vit B-12) 1,000 mcg/mL injection solution RxNorm: 762239 1Milliliter 11/28/2017 No longer Active cyanocobalamin (vit B-12) 1,000 mcg/mL injection solution RxNorm: 568797 1Milliliter 10/24/2017 No longer Active cyanocobalamin (vit B-12) 1,000 mcg/mL injection solution RxNorm: 073821 1Milliliter 09/26/2017 No longer Active cyanocobalamin (vit B-12) 1,000 mcg/mL injection solution RxNorm: 329278 1Milliliter 08/10/2017 No longer Active cyanocobalamin (vit B-12) 1,000 mcg/mL injection solution RxNorm: 985420 1Milliliter 07/18/2017 No longer Active cyanocobalamin (vit B-12) 1,000 mcg/mL injection solution RxNorm: 776032 1Milliliter 05/16/2017 No longer Active cyanocobalamin (vit B-12) 1,000 mcg/mL injection solution RxNorm: 034361 1Milliliter 03/14/2017 No longer Active Kenalog 40 mg/mL suspension for injection RxNorm: 0716714 1Milliliter 01/12/2017 No longer Active ceftriaxone 500 mg solution for injection RxNorm: 4826552 1Milliliter 01/12/2017 No longer Active cyanocobalamin (vit B-12) 1,000 mcg/mL injection solution RxNorm: 865958 1Milliliter 01/12/2017 No longer Active cyanocobalamin (vit B-12) 1,000 mcg/mL injection solution RxNorm: 861468 1Milliliter 10/27/2016 No longer Active cyanocobalamin (vit B-12) 1,000 mcg/mL injection solution RxNorm: 637651 Milliliter 07/27/2016 No longer Active cyanocobalamin (vit B-12) 1,000 mcg/mL injection solution RxNorm: 053843 1Milliliter 04/26/2016 No longer Active Immunizations Vaccine [...] Ord2 Baso ABS# 0.0 K/ul 11/28/2017 B12 Xxi903 B12 >1500.00 pg/ml 11/28/2017 Comp Metabolic Jjh977 NA 139 mEq/L 11/28/2017 Comp Metabolic Pcn520 K 5.2 mEq/L 11/28/2017 Comp Metabolic Kxr430 CL 106 mEq/L 11/28/2017 Comp Metabolic Blw502 CO2 28.0 mEq/L 11/28/2017 Comp Metabolic Qwr247 ANION GAP 10 11/28/2017 Comp Metabolic Pct447 GLUCOSE 89 mg/dL 11/28/2017 Comp Metabolic Wfq906 Creat 1.1 mg/dL 11/28/2017 Comp Metabolic Tok936 eGFR 66 ml/min/1.73m2 11/28/2017 Comp Metabolic Feb907 BUN 18 mg/dL 11/28/2017 Comp Metabolic Cma550 B/C Ratio 16.1 Ratio 11/28/2017 Comp Metabolic Lco487 CALCIUM 9.2 mg/dL 11/28/2017 Comp Metabolic Zpu271 ALK PHOS 89 U/L 11/28/2017 Comp Metabolic Nao209 AST(SGOT) 22 U/L 11/28/2017 Comp Metabolic Jju444 ALT(SGPT) 15 U/L 11/28/2017 Comp Metabolic Tvj314 BILI T 0.6 mg/dL 11/28/2017 Comp Metabolic Ckn326 ALBUMIN 3.9 g/dL 11/28/2017 Comp Metabolic Mua179 TPRO 6.5 g/dL 11/28/2017 Comp Metabolic Nxm379 GLOB 2.6 g/dL 11/28/2017 Comp Metabolic Tni052 A/G Ratio 1.5 Ratio 11/28/2017 Comp Metabolic Zel209 Osmo 279 mOsmo 11/28/2017 Ferritin Ord22 FERRITIN [...] Baso ABS# 0.0 K/ul 07/18/2017 Comp Metabolic Sdn545 NA 140 mEq/L 07/18/2017 Comp Metabolic Gif330 K 4.6 mEq/L 07/18/2017 Comp Metabolic Wkh229 CL 105 mEq/L 07/18/2017 Comp Metabolic Cva845 CO2 29.0 mEq/L 07/18/2017 Comp Metabolic Vve528 ANION GAP 11 07/18/2017 Comp Metabolic Ztp914 GLUCOSE 96 mg/dL 07/18/2017 Comp Metabolic Kfa022 Creat 1.0 mg/dL 07/18/2017 Comp Metabolic Mru616 eGFR 73 ml/min/1.73m2 07/18/2017 Comp Metabolic Zbd559 BUN 12 mg/dL 07/18/2017 Comp Metabolic Fef020 B/C Ratio 11.7 Ratio 07/18/2017 Comp Metabolic Eok575 CALCIUM 9.2 mg/dL 07/18/2017 Comp Metabolic Pum268 ALK PHOS 74 U/L 07/18/2017 Comp Metabolic Oex828 AST(SGOT) 29 U/L 07/18/2017 Comp Metabolic Xmq064 ALT(SGPT) 16 U/L 07/18/2017 Comp Metabolic Vzy011 BILI T 0.7 mg/dL 07/18/2017 Comp Metabolic Xon779 ALBUMIN 3.7 g/dL 07/18/2017 Comp Metabolic Vdl277 TPRO 6.5 g/dL 07/18/2017 Comp Metabolic Lfx043 GLOB 2.8 g/dL 07/18/2017 Comp Metabolic Qiw245 A/G Ratio 1.3 Ratio 07/18/2017 Comp Metabolic Dia899 Osmo 279 mOsmo 07/18/2017 Iron Ord72 Iron 114 ug/dl 07/18/2017 B12 Mit787 B12 233.00 pg/ml 07/18/2017 Tsh Ord6 hTSH [...] Baso ABS# 0.0 K/ul 12/13/2016 Comp Metabolic Iyd566 NA 136 mEq/L 12/13/2016 Comp Metabolic Omu069 K 4.7 mEq/L 12/13/2016 Comp Metabolic Oav207 CL 102 mEq/L 12/13/2016 Comp Metabolic Gwq174 CO2 26.0 mEq/L 12/13/2016 Comp Metabolic Usc666 ANION GAP 13 12/13/2016 Comp Metabolic Tgv552 GLUCOSE 87 mg/dL 12/13/2016 Comp Metabolic Rmj431 Creat 0.9 mg/dL 12/13/2016 Comp Metabolic Jri827 eGFR 83 ml/min/1.73m2 12/13/2016 Comp Metabolic Fqi971 BUN 17 mg/dL 12/13/2016 Comp Metabolic Gmy143 B/C Ratio 18.3 Ratio 12/13/2016 Comp Metabolic Umr078 CALCIUM 9.1 mg/dL 12/13/2016 Comp Metabolic Gzv565 ALK PHOS 90 U/L 12/13/2016 Comp Metabolic Mzy893 AST(SGOT) 22 U/L 12/13/2016 Comp Metabolic Dng927 ALT(SGPT) 15 U/L 12/13/2016 Comp Metabolic Lke649 BILI T 0.8 mg/dL 12/13/2016 Comp Metabolic Xyn514 ALBUMIN 3.6 g/dL 12/13/2016 Comp Metabolic Qqt093 TPRO 6.4 g/dL 12/13/2016 Comp Metabolic Lvt807 GLOB 2.9 g/dL 12/13/2016 Comp Metabolic Hoe084 A/G Ratio 1.2 Ratio 12/13/2016 Comp Metabolic Rmi385 Osmo 273 mOsmo 12/13/2016 Lipid Ord30 CHOL 182 mg/dL 12/13/2016 Lipid Ord30 HDL 64.0 mg/dl 12/13/2016 Lipid Ord30 TRIG 62 mg/dL 12/13/2016 Lipid Ord30 LDL 106 mg/dL 12/13/2016 Lipid Ord30 C/HDL 2.8 Ratio 12/13/2016 Ferritin Ord22 FERRITIN 434.7 ng/mL 12/13/2016 B12 Mmc139 B12 247.00 pg/ml 12/13/2016 Tibc Ord40 Iron [...] Baso ABS# 0.0 K/ul 04/27/2016 Comp Metabolic Bgr988 NA 138 mEq/L 04/27/2016 Comp Metabolic Tsw756 K 4.3 mEq/L 04/27/2016 Comp Metabolic Ekd808 CL 104 mEq/L 04/27/2016 Comp Metabolic Yfi972 CO2 30.0 mEq/L 04/27/2016 Comp Metabolic Hwa492 ANION GAP 8 04/27/2016 Comp Metabolic Zpd611 GLUCOSE 87 mg/dL 04/27/2016 Comp Metabolic Lcs374 Creat 0.9 mg/dL 04/27/2016 Comp Metabolic Hcd808 eGFR 82 ml/min/1.73m2 04/27/2016 Comp Metabolic Tgz752 BUN 13 mg/dL 04/27/2016 Comp Metabolic Eej787 B/C Ratio 13.8 Ratio 04/27/2016 Comp Metabolic Yrz669 CALCIUM 9.0 mg/dL 04/27/2016 Comp Metabolic Diy489 ALK PHOS 62 U/L 04/27/2016 Comp Metabolic Bwb901 AST(SGOT) 24 U/L 04/27/2016 Comp Metabolic Fbb622 ALT(SGPT) 15 U/L 04/27/2016 Comp Metabolic Nja396 BILI T 0.7 mg/dL 04/27/2016 Comp Metabolic Kdl904 ALBUMIN 3.6 g/dL 04/27/2016 Comp Metabolic Yps148 TPRO 6.1 g/dL 04/27/2016 Comp Metabolic Qih485 GLOB 2.5 g/dL 04/27/2016 Comp Metabolic Phb439 A/G Ratio 1.4 Ratio 04/27/2016 Comp Metabolic Myb810 Osmo 275 mOsmo 04/27/2016 B12 Giq376 B12 >1500.00 pg/ml 04/27/2016 Iron Ord72 Iron [...] Procedure Codes Date THER/PROPH/DIAG INJ SC/IM CPT-4: 21104 09/28/2018 VITAMIN B12 INJECTION CPT- 4: J3420 09/28/2018 THER/PROPH/DIAG INJ SC/IM CPT-4: 86760 08/30/2018 VITAMIN B12 INJECTION CPT- 4: J3420 08/30/2018 VITAMIN B12 INJECTION CPT- 4: J3420 07/31/2018 THER/PROPH/DIAG INJ SC/IM CPT-4: 47740 07/31/2018 THER/PROPH/DIAG INJ SC/IM CPT-4: 32708 07/02/2018 VITAMIN B12 INJECTION CPT- 4: J3420 07/02/2018 THER/PROPH/DIAG INJ SC/IM CPT-4: 43932 05/31/2018 ADMIN INFLUENZA VIRUS VAC CPT-4: G0008 05/31/2018 VITAMIN B12 INJECTION CPT- 4: J3420 05/31/2018 FLU VACC PRSV FREE INC ANTIG Formatting Model/CDA Sections, Assigned to/Mary Grace Rosado CPT-4: 13455Nhhxosj 05/31/2018 VITAMIN B12 INJECTION CPT- 4: J3420 05/03/2018 THER/PROPH/DIAG INJ SC/IM CPT-4: 66039 05/03/2018 THER/PROPH/DIAG INJ SC/IM CPT-4: 36496 04/04/2018 VITAMIN B12 INJECTION CPT- 4: J3420 04/04/2018 THER/PROPH/DIAG INJ SC/IM CPT-4: 17557 03/05/2018 VITAMIN B12 INJECTION CPT- 4: J3420 03/05/2018 VITAMIN B12 INJECTION CPT- 4: J3420 01/30/2018 THER/PROPH/DIAG INJ SC/IM CPT-4: 12168 01/30/2018 THER/PROPH/DIAG INJ SC/IM CPT-4: 88441 01/01/2018 VITAMIN B12 INJECTION CPT- 4: J3420 01/01/2018 PPPS, SUBSEQ VISIT CPT- 4: G0439 12/18/2017 THER/PROPH/DIAG INJ SC/IM CPT-4: 60312 11/28/2017 VITAMIN B12 INJECTION CPT- 4: J3420 11/28/2017 THER/PROPH/DIAG INJ SC/IM CPT-4: 66070 10/24/2017 VITAMIN B12 INJECTION CPT- 4: J3420 10/24/2017 THER/PROPH/DIAG INJ SC/IM CPT-4: 29993 09/26/2017 VITAMIN B12 INJECTION CPT- 4: J3420 09/26/2017 THER/PROPH/DIAG INJ SC/IM CPT-4: 87173 08/10/2017 VITAMIN B12 INJECTION CPT- 4: J3420 08/10/2017 THER/PROPH/DIAG INJ SC/IM CPT-4: 06619 07/18/2017 VITAMIN B12 INJECTION CPT- 4: J3420 07/18/2017 THER/PROPH/DIAG INJ SC/IM CPT-4: 40136 05/16/2017 VITAMIN B12 INJECTION CPT- 4: J3420 05/16/2017 THER/PROPH/DIAG INJ SC/IM CPT-4: 01256 03/14/2017 VITAMIN B12 INJECTION CPT- 4: J3420 03/14/2017 TRIAMCINOLONE ACET INJ NOS CPT-4: J3301 01/12/2017 ROCEPHIN, PER 250 MG CPT- 4: J0696 01/12/2017 VITAMIN B12 INJECTION CPT- 4: J3420 01/12/2017 THER/PROPH/DIAG INJ SC/IM CPT-4: 94769 01/12/2017 PPPS, SUBSEQ VISIT CPT- 4: G0439 12/12/2016 PNEUMOCOCCAL VACC [address]: 16611967 CPT-4: 74257 12/12/2016 ADMIN PNEUMOCOCCAL VACCINE SNOMED CT: 95761820 CPT-4: G0009 12/12/2016 THER/PROPH/DIAG INJ SC/IM CPT-4: 10293 10/27/2016 VITAMIN B12 INJECTION CPT- 4: J3420 10/27/2016 THER/PROPH/DIAG INJ SC/IM CPT-4: 92942 07/27/2016 VITAMIN B12 INJECTION CPT- 4: J3420 07/27/2016 THER/PROPH/DIAG INJ SC/IM CPT-4: 01588 04/26/2016 VITAMIN B12 INJECTION CPT- 4: J3420 04/26/2016 Vital Signs Date Vital 08/15/2018 Blood Pressure 1: 144/66 Code: 8480-6 BMI: 25.1 Code: 28257-8 Heart Rate 1: 75 bpm Height: 5'7" SpO2: 98% Weight: 160 lbs 05/23/2018 Blood Pressure 1: 158/64 Code: 8480-6 BMI: 24.7 Code: 20198-6 Heart Rate 1: 76 bpm Height: 5'7" SpO2: 96% Temperature: 36.7 (C) / 98.1 (F) Weight: 158 lbs 05/03/2018 Blood Pressure 1: 122/72 Code: 8480-6 BMI: 25.1 Code: 02355-1 Heart Rate 1: 74 bpm Height: 5'7" SpO2: 97% Weight: 160 lbs 01/31/2018 Blood Pressure 1: 137/77 Code: 8480-6 Blood Pressure 2: 138/68 Code: 8480-6 Heart Rate 1: 67 bpm SpO2: 98% 01/30/2018 Blood Pressure 1: 138/66 Code: 8480-6 BMI: 25.1 Code: 92027-4 Heart Rate 1: 76 bpm Height: 5'7" SpO2: 94% Weight: 160 lbs 12/18/2017 Blood Pressure 1: 152/88 Code: 8480-6 BMI: 25.8 Code: 48266-9 Heart Rate 1: 68 bpm Height: 5'7" SpO2: 96% Weight: 165 lbs 11/28/2017 Blood Pressure 1: 150/76 Code: 8480-6 BMI: 25.2 Code: 97410-5 Heart Rate 1: 78 bpm Height: 5'7" SpO2: 98% Weight: 161 lbs 10/10/2017 Blood Pressure 1: 156/76 Code: 8480-6 BMI: 24.7 Code: 71038-2 Heart Rate 1: 71 bpm Height: 5'7" SpO2: 98% Weight: 158 lbs 09/26/2017 Blood Pressure 1: 162/82 Code: 8480-6 BMI: 24.7 Code: 22876-2 Heart Rate 1: 69 bpm Height: 5'7" SpO2: 99% Weight: 158 lbs 08/16/2017 Blood Pressure 1: 154/82 Code: 8480-6 BMI: 24.1 Code: 87991-4 Heart Rate 1: 58 bpm Height: 5'7" SpO2: 96% Weight: 154 lbs 07/18/2017 Blood Pressure 1: 152/88 Code: 8480-6 BMI: 25.2 Code: 88125-7 Heart Rate 1: 72 bpm Height: 5'7" SpO2: 98% Weight: 161 lbs 05/16/2017 Blood Pressure 1: 136/78 Code: 8480-6 BMI: 24.8 Code: 47936-1 Heart Rate 1: 71 bpm Height: 5'7" SpO2: 96% Weight: 158 lbs 8 oz 03/14/2017 Blood Pressure 1: 142/74 Code: 8480-6 BMI: 23.8 Code: 99737-3 Heart Rate 1: 69 bpm Height: 5'7" SpO2: 94% Weight: 152 lbs 01/12/2017 Blood Pressure 1: 156/90 Code: 8480-6 BMI: 23.4 Code: 61031-6 Heart Rate 1: 90 bpm Height: 5'7" SpO2: 97% Temperature: 37.4 (C) / 99.3 (F) Weight: 149 lbs 8 oz 12/12/2016 Blood Pressure 1: 140/78 Code: 8480-6 BMI: 24.3 Code: 51448-4 Heart Rate 1: 73 bpm Height: 5'7" SpO2: 96% Waist Measure (cm): 90 cm Weight: 155 lbs 12/08/2016 Blood Pressure 1: 148/84 Code: 8480-6 BMI: 24.3 Code: 22466-3 Heart Rate 1: 80 bpm Height: 5'7" SpO2: 96% Weight: 155 lbs 11/03/2016 Blood Pressure 1: 156/84 Code: 8480-6 Blood Pressure 2: 155/94 Code: 8480-6 BMI: 24.3 Code: 17969-1 Heart Rate 1: 81 bpm Height: 5'7" SpO2: 98% Weight: 155 lbs 10/06/2016 Blood Pressure 1: 175/95 Code: 8480-6 Heart Rate 1: 77 bpm Respiratory Rate: 16 bpm SpO2: 98% Temperature: 36.4 (C) / 97.5 (F) Weight: 157 lbs 09/06/2016 Blood Pressure 1: 136/80 Code: 8480-6 BMI: 24.1 Code: 09531-2 Heart Rate 1: 82 bpm Height: 5'8" SpO2: 97% Weight: 156 lbs 08/23/2016 Blood Pressure 1: 160/80 Code: 8480-6 BMI: 24.4 Code: 40257-3 Heart Rate 1: 88 bpm Height: 5'8" SpO2: 95% Weight: 158 lbs 04/26/2016 Blood Pressure 1: 156/74 Code: 8480-6 BMI: 24.5 Code: 79251-9 Heart Rate 1: 70 bpm Height: 5'8" [...] data Encounters Encounter Performer Location Codes Date ([id number]) [id number] EST. PATIENT, LEVEL III Diagnosis: Essential (primary) hypertension[ICD10: I10] [facility] CPT-4: 78659 08/15/2018 [id number] EST. PATIENT, LEVEL III Diagnosis: Dysphagia, pharyngoesophageal phase[ICD10: R13.14] [facility] CPT-4: 06251 05/23/2018 [id number]) [id number] EST. PATIENT, LEVEL IV Diagnosis: Essential (primary) hypertension[ICD10: I10] Diagnosis: Chronic pain syndrome[ICD10: G89.4] Diagnosis: 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 deficiency[ICD10: D51.0] Diagnosis: Other iron deficiency anemias[ICD10: D50.8] Diagnosis: Slow transit constipation[ICD10: K59.01] Andree Paris MD, [facility] CPT-4: 01018 05/03/2018 ([id number]) Miscellaneous no charge Diagnosis: Essential (primary) hypertension[ICD10: I10] Teresa Paris MD, [facility] CPT-4: 83043 01/31/2018 ([id number]) [id number] EST. PATIENT, LEVEL IV Diagnosis: Essential (primary) hypertension[ICD10: I10] Diagnosis: Chronic pain syndrome[ICD10: G89.4] Andree Paris MD, [facility] CPT- 4: 40295 01/30/2018 ([id number]) [id number] EST. PATIENT, LEVEL IV Diagnosis: Essential (primary) hypertension[ICD10: I10] Diagnosis: Chronic pain syndrome[ICD10: G89.4] Diagnosis: 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 deficiency[ICD10: D51.0] Diagnosis: Iron deficiency anemia, unspecified[ICD10: D50.9] Ana Paris MD, [facility] CPT-4: 08540 11/28/2017 [id number] EST. PATIENT, LEVEL IV Diagnosis: Essential (primary) hypertension[ICD10: I10] Diagnosis: Slow transit constipation[ICD10: K59.01] Diagnosis: Chronic pain syndrome[ICD10: G89.4] Teresa Paris MD, [facility] CPT- 4: 60947 10/10/2017 [id number] EST. PATIENT, LEVEL IV Diagnosis: 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 deficiency[ICD10: D51.0] Diagnosis: Essential (primary) hypertension[ICD10: I10] Diagnosis: Chronic pain syndrome[ICD10: G89.4] Teresa Paris MD, [facility] CPT- 4: 26779 09/26/2017 [id number] EST. PATIENT, LEVEL III Diagnosis: Dysphagia, pharyngoesophageal phase[ICD10: R13.14] Teresa Paris MD, [facility] CPT-4: 41782 08/16/2017 ([id number]) 10118 EST. PATIENT, LEVEL IV Diagnosis: Essential (primary) hypertension[ICD10: I10] Diagnosis: Chronic pain syndrome[ICD10: G89.4] Diagnosis: 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 deficiency[ICD10: D51.0] Diagnosis: Iron deficiency anemia, unspecified[ICD10: D50.9] Diagnosis: Dysphagia, pharyngoesophageal phase[ICD10: R13.14] Ana Paris MD, [facility] CPT-4: 63997 07/18/2017 ([id number]) 21502 EST. PATIENT, LEVEL III Diagnosis: Essential (primary) hypertension[ICD10: I10] Diagnosis: Chronic pain syndrome[ICD10: G89.4] Diagnosis: 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 deficiency[ICD10: D51.0] Ana Paris MD, [facility] CPT-4: 57711 05/16/2017 ([id number]) 35345 EST. PATIENT, LEVEL III Diagnosis: Essential (primary) hypertension[ICD10: I10] Diagnosis: Chronic pain syndrome[ICD10: G89.4] Diagnosis: 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 deficiency[ICD10: D51.0] Ana Paris MD, [facility] CPT-4: 19726 03/14/2017 ([id number]) 19790 EST. PATIENT, LEVEL III Diagnosis: Cough[ICD10: R05] Diagnosis: Acute bronchitis, unspecified[ICD10: J20.9] Diagnosis: Chronic pain syndrome[ICD10: G89.4] Diagnosis: 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 deficiency[ICD10: D51.0] Ana Paris MD, [facility] CPT-4: 43284 01/12/2017 ([id number]) 72072 EST. PATIENT, LEVEL III Diagnosis: Essential (primary) hypertension[ICD10: I10] Diagnosis: Chronic pain syndrome[ICD10: G89.4] Ana Paris MD, [facility] CPT-4: 50223 12/08/2016 ([id number]) 77536 EST. PATIENT, LEVEL III Diagnosis: Essential (primary) hypertension[ICD10: I10] Ana Paris MD, [facility] CPT-4: 60195 11/03/2016 ([id number]) 74776 EST. PATIENT, LEVEL III Diagnosis: Essential (primary) hypertension[ICD10: I10] Ana Paris MD, [facility] CPT-4: 34276 10/06/2016 ([id number]) 36371 EST. PATIENT, LEVEL III Diagnosis: Essential (primary) hypertension[ICD10: I10] Ana Paris MD, [facility] CPT-4: 80966 09/06/2016 ([id number]) 04497 EST. PATIENT, LEVEL III Diagnosis: Essential (primary) hypertension[ICD10: I10] Ana Paris MD, [facility] CPT-4: 20016 08/23/2016 ([id number]) OFFICE VISIT, NEW - LEVEL 4 Diagnosis: Noninfective gastroenteritis and colitis, unspecified[ICD10: K52.9] Diagnosis: 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 deficiency[ICD10: D51.0] Diagnosis: Iron deficiency anemia, unspecified[ICD10: D50.9] Diagnosis: Chalazion left upper eyelid[ICD10: H00.14] Diagnosis: Elevated blood-pressure reading, without diagnosis of hypertension[ICD10: R03.0] Andree Paris MD, [facility] CPT-4: 81591 04/26/2016 Plan of Care Planned Activity Notes Codes Status Date Patient Education: Patient Medication Summary Completed 09/28/2018 [...] amlodipine 08/15/2018 [phone] ([facility] min) Moderate 08/15/2018 Patient Education: [...] plan. 05/23/2018 [phone] ([facility] Moderate 05/23/2018 Patient Education: [...] current management. 05/03/2018 [phone] ([facility] min) Moderate 05/03/2018 Patient Education: [...] over-medication. 01/30/2018 [facility]ment[phone] (15 min) Moderate 01/30/2018 Patient Education: [...] concerns. 12/18/2017 [phone] [phone] [facility] - Annual Wellness Visit 12/18/2017 [...] def-check labs 11/28/2017 Appointment: Ana Pedraza [phone] ([facility] min[facility] 11/28/2017 Patient Education: Patient Medication Summary [...] regimen. 10/10/2017 [facility]ment[phone] ([facility] min) Complex 10/10/2017 Patient Education: [...] of over-medication. 09/26/2017 Appointment: Teresa Bardales [facility]Ptel[phone] ([facility]) [facility] 09/26/2017 Patient Education: Patient Medication Summary Completed 09/26/2017 Appointment: Teresa Bardales [facility]Ptel[phone] ([facility] min) Complex 09/19/2017 Referral: External, Ordering Provider Referral Appointment Confirmed 08/17/2017 Visit Plan: Dysphagia - worsening since yesterday - will refer to Dr. Harper for possible EGD - pt is to notify clinic if symptoms do not improve, if they worsen, or with any acute changes, questions, or concerns. 08/16/2017 Appointment: Teresa Bardales WPtel: [facility] (30 min) Complex 08/16/2017 Patient Education: Patient Medication Summary Completed 08/16/2017 Care Plan: Referral Order SNOMED-CT : [id number] Pending 08/16/2017 Appointment: Injection 08/10/2017 Patient Education: [...] first 07/18/2017 Appointment: Ana Pedraza WPtel: [phone] [phone] (30 min) Complex 07/18/2017 Patient Education: [...] of over-medication. 05/16/2017 Appointment: Ana Pedraza WPtel: [phone] (30 min) Complex 05/16/2017 Patient Education: [...] over-medication. 03/14/2017 Appointment: Ana Pedraza WPtel: [phone] [phone] (30 min) Complex 03/14/2017 Patient Education: [...] of over-medication. 01/12/2017 Appointment: [facility] Pedraza WPtel[phone] ([facility] min[facility] 01/12/2017 Patient Education: Patient Medication Summary [...] surrogate. 12/12/2016 Appointment: Ana Pedraza WPtel: [facility] - Annual Wellness Visit 12/12/2016 Patient [...] over-medication. 12/08/2016 Appointment: Ana Pedraza WPtel: [phone] (30 min) Complex 12/08/2016 Patient Education: [...] acute concerns. 11/03/2016 Appointment: Ana Pedraza WPtel: [phone] (30 min) Complex 11/03/2016 Patient Education: [...] 10/06/2016 Appointment: Ana Pedraza WPtel: [phone] [phone] (30 min) Complex 10/06/2016 Patient Education: Patient [...] 09/06/2016 Appointment: Ana Pedraza WPtel: [phone] [phone] (30 min) Complex 09/06/2016 Patient Education: [...] acute concerns. 08/23/2016 Appointment: Ana Pedraza WPtel: [phone] (15 min) Moderate 08/23/2016 Patient Education: [...] gentamycin. 04/26/2016 App[facility]ment: [phone] [place] [facility] 04/26/2016 Patient Education: [...]
--- OUTSIDE RECORDS SUMMARY | 2019-02-13 09:44 | XMS REPORT | CCD ---
Author Author Andree Paris Organization Andree Paris MD, [facility] Address [address] [place] [address] Phone Care Team Providers Care Educational Aide Name Role Phone PP Unavailable CCM Unavailable Summary Purpose Interface Exchange Insurance Providers Payer name Policy type / Coverage type Covered green party ID Effective Begin Date Effective End Date WPS Medicare Part B Medicare Part B [id number] Unknown Unknown FOR LIFE WPS Medicare Part B [id number] Unknown Unknown Family history Father Diagnosis Age At Onset No Known Diseases N/A Mother Diagnosis Age At Onset No Known Diseases N/A Social History Social History Element Codes Description Effective Dates Marital status Unknown 04/26/2016 Number of children Unknown 3 04/26/2016 Employment Unknown Retired 04/26/[address]: 8493667 Former smoker Quit 1968 04/26/[address]: 451762 Currently drinks alcohol 04/26/2016 Has the patient [...] morphine ER 30 mg tablet,extended release RxNorm: 133910 1 Tablet(s) PO daily 09/28/2018 10/27/2018 Active morphine ER 30 mg tablet,extended release RxNorm: 922688 1 Tablet(s) PO daily 08/30/2018 09/27/2018 Inactive cyanocobalamin (vit B-12) 1,000 mcg/mL injection solution RxNorm: 382228 Milliliter(s) Inj 08/30/2018 08/30/2018 Inactive cyanocobalamin (vit B-12) 1,000 mcg/mL injection solution RxNorm: 619805 Milliliter(s) Inj 07/31/2018 07/31/2018 Inactive morphine ER 30 mg tablet,extended release RxNorm: 595987 1 Tablet(s) PO daily 07/31/2018 08/29/2018 Inactive amlodipine 5 mg tablet RxNorm: 912848 1 Tablet(s) PO QPM 07/11/2018 01/06/2019 Active cyanocobalamin (vit B-12) 1,000 mcg/mL injection solution RxNorm: 682559 1 Milliliter(s) Inj 07/02/2018 07/02/2018 Inactive morphine ER 30 mg tablet,extended release RxNorm: 421245 1 Tablet(s) PO daily 07/02/2018 07/30/2018 Inactive morphine ER 30 mg tablet,extended release RxNorm: 839080 1 Tablet(s) PO daily 05/31/2018 06/29/2018 Inactive cyanocobalamin (vit B-12) 1,000 mcg/mL injection solution RxNorm: 444928 Milliliter(s) Inj 05/31/2018 05/31/2018 Inactive Protonix 40 mg tablet,delayed release RxNorm: 390839 1 Tablet(s) PO daily 05/23/2018 06/21/2018 Inactive Carafate 1 gram tablet RxNorm: 029634 1 Tablet(s) PO AC & HS as needed 05/23/2018 06/21/2018 Inactive cyanocobalamin (vit B-12) 1,000 mcg/mL injection solution RxNorm: 112590 1 Milliliter(s) Inj 05/03/2018 05/03/2018 Inactive morphine ER 30 mg tablet,extended release RxNorm: 625346 1 Tablet(s) PO daily 04/04/2018 05/03/2018 Inactive cyanocobalamin (vit B-12) 1,000 mcg/mL injection solution RxNorm: 535250 1 Milliliter(s) Inj 04/04/2018 04/04/2018 Inactive cyanocobalamin (vit B-12) 1,000 mcg/mL injection solution RxNorm: 200625 1 Milliliter(s) Inj 03/05/2018 03/05/2018 Inactive morphine ER 30 mg tablet,extended release RxNorm: 914558 1 Tablet(s) PO daily 03/05/2018 04/03/2018 Inactive cyanocobalamin (vit B-12) 1,000 mcg/mL injection solution RxNorm: 929083 1 Milliliter(s) Inj 01/30/2018 01/30/2018 Inactive cyanocobalamin (vit B-12) 1,000 mcg/mL injection solution RxNorm: 019209 1 Milliliter(s) Inj 01/01/2018 01/01/2018 Inactive morphine ER 30 mg tablet,extended release RxNorm: 533268 1 Tablet(s) PO daily 01/01/2018 01/30/2018 Inactive lisinopril 20 mg tablet RxNorm: 155409 1 Tablet(s) PO BID 12/18/2017 12/12/2018 Active amlodipine 5 mg tablet RxNorm: 499201 1 Tablet(s) PO QPM 12/18/2017 06/15/2018 Inactive cyanocobalamin (vit B-12) 1,000 mcg/mL injection solution RxNorm: 308242 1 Milliliter(s) Inj 11/28/2017 11/28/2017 Inactive morphine ER 30 mg tablet,extended release RxNorm: 456155 1 Tablet(s) PO daily 11/28/2017 12/27/2017 Inactive morphine ER 30 mg tablet,extended release RxNorm: 118904 1 Tablet(s) PO daily 11/09/2017 11/27/2017 Inactive cyanocobalamin (vit B-12) 1,000 mcg/mL injection solution RxNorm: 868252 1 Milliliter(s) Inj 10/24/2017 10/24/2017 Inactive morphine ER 30 mg tablet,extended release RxNorm: 793726 1 Tablet(s) PO daily 10/10/2017 11/08/2017 Inactive hydrochlorothiazide 25 mg tablet RxNorm: 870232 1 Tablet(s) PO daily 10/10/2017 11/08/2017 Inactive cyanocobalamin (vit B-12) 1,000 mcg/mL injection solution RxNorm: 635132 1 Milliliter(s) Inj 09/26/2017 09/26/2017 Inactive hydrochlorothiazide 12.5 mg tablet RxNorm: 372314 1 Tablet(s) PO daily 09/26/2017 10/25/2017 Inactive morphine ER 30 mg tablet,extended release RxNorm: 063860 1 Tablet(s) PO daily 09/12/2017 10/09/2017 Inactive cyanocobalamin (vit B-12) 1,000 mcg/mL injection solution RxNorm: 127641 1 Milliliter(s) Inj 08/10/2017 08/10/2017 Inactive morphine ER 30 mg tablet,extended release RxNorm: 596176 1 Tablet(s) PO daily 08/10/2017 09/08/2017 Inactive Vitamin B-12 1,000 mcg/mL injection solution RxNorm: 431805 1 Milliliter(s) Inj month 07/21/2017 No Stop Date Active B12 INJECTIONS MONTHLY cyanocobalamin (vit B-12) 1,000 mcg/mL injection solution RxNorm: 600555 1 Milliliter(s) Inj 07/18/2017 07/18/2017 Inactive morphine ER 30 mg tablet,extended release RxNorm: 600677 1 Tablet(s) PO daily 07/13/2017 08/09/2017 Inactive morphine ER 30 mg tablet,extended release RxNorm: 672263 1 Tablet(s) PO daily 06/15/2017 07/12/2017 Inactive cyanocobalamin (vit B-12) 1,000 mcg/mL injection solution RxNorm: 506756 1 Milliliter(s) Inj 05/16/2017 05/16/2017 Inactive morphine ER 30 mg tablet,extended release RxNorm: 202444 1 Tablet(s) PO daily 04/13/2017 05/12/2017 Inactive cyanocobalamin (vit B-12) 1,000 mcg/mL injection solution RxNorm: 985956 1 Milliliter(s) Inj 03/14/2017 03/14/2017 Inactive morphine ER 30 mg tablet,extended release RxNorm: 140921 1 Tablet(s) PO daily 03/14/2017 04/12/2017 Inactive morphine ER 30 mg tablet,extended release RxNorm: 286780 1 Tablet(s) PO daily 02/13/2017 03/13/2017 Inactive Kenalog 40 mg/mL suspension for injection RxNorm: 4869204 1 Milliliter(s) Inj 01/12/2017 01/12/2017 Inactive cyanocobalamin (vit B-12) 1,000 mcg/mL injection solution RxNorm: 611939 1 Milliliter(s) Inj 01/12/2017 01/12/2017 Inactive Zithromax Z-[place] 250 mg tablet RxNorm: 771536 1 Tablet(s) PO UD 01/12/2017 01/16/2017 Inactive ceftriaxone 500 mg solution for injection RxNorm: 7458853 1 Milliliter(s) Inj 01/12/2017 01/12/2017 Inactive Vitamin B-12 1,000 mcg/mL injection solution RxNorm: 064564 1 Milliliter(s) Inj EVERY OTHER MONTH 01/04/2017 07/20/2017 Inactive lisinopril 20 mg tablet RxNorm: 845415 1 Tablet(s) PO BID 01/02/2017 12/17/2017 Inactive lisinopril 20 mg tablet RxNorm: 513804 1 Tablet(s) PO BID 12/12/2016 01/01/2017 Inactive morphine ER 30 mg tablet,extended release RxNorm: 986441 1 Tablet(s) PO daily 12/08/2016 01/06/2017 Inactive lisinopril 20 mg tablet RxNorm: 663630 1 Tablet(s) PO BID 11/03/2016 12/11/2016 Inactive morphine ER 30 mg tablet,extended release RxNorm: 854501 1 Tablet(s) PO daily 11/03/2016 12/02/2016 Inactive cyanocobalamin (vit B-12) 1,000 mcg/mL injection solution RxNorm: 687001 1 Milliliter(s) Inj 10/27/2016 10/27/2016 Inactive lisinopril 10 mg tablet RxNorm: 562988 1 Tablet(s) PO BID 10/06/2016 11/02/2016 Inactive lisinopril 10 mg tablet RxNorm: 206566 1 Tablet(s) PO daily 09/06/2016 10/05/2016 Inactive morphine ER 30 mg tablet,extended release RxNorm: 585537 1 Tablet(s) PO daily 08/18/2016 09/16/2016 Inactive cyanocobalamin (vit B-12) 1,000 mcg/mL injection solution RxNorm: 706719 Milliliter(s) Inj 07/27/2016 07/27/2016 Inactive morphine ER 30 mg tablet,extended release RxNorm: 380099 1 Tablet(s) PO daily 07/21/2016 08/17/2016 Inactive morphine ER 30 mg tablet,extended release RxNorm: 137127 1 Tablet(s) PO daily 06/20/2016 07/19/2016 Inactive morphine ER 30 mg tablet,extended release RxNorm: 510758 1 Tablet(s) PO daily 05/20/2016 06/19/2016 Inactive cyanocobalamin (vit B-12) 1,000 mcg/mL injection solution RxNorm: 782096 1 Milliliter(s) Inj 04/26/2016 04/26/2016 Inactive gentamicin 0.3 % eye drops RxNorm: 271938 2 Drop(s) OPH Q4H 04/26/2016 05/02/2016 Inactive Vitamin B-12 1,000 mcg/mL injection solution RxNorm: 821070 1 Milliliter(s) Inj EVERY 3 MONTHS No Start Date 01/03/2017 Inactive Claritin 10 mg tablet RxNorm: 886748 1 Tablet(s) PO daily No Start Date 07/17/2017 Inactive Venofer intravenous RxNorm: 85058 intravenous No Start Date 08/14/2018 Inactive morphine ER 30 mg tablet,extended release RxNorm: 433368 1 Tablet(s) PO daily No Start Date 04/25/2016 Inactive Medication Administered Medication Codes Instructions Start Date Status cyanocobalamin (vit B-12) 1,000 mcg/mL injection solution RxNorm: 230632 Milliliter 08/30/2018 No longer Active cyanocobalamin (vit B-12) 1,000 mcg/mL injection solution RxNorm: 810414 Milliliter 07/31/2018 No longer Active cyanocobalamin (vit B-12) 1,000 mcg/mL injection solution RxNorm: 195701 1Milliliter 07/02/2018 No longer Active cyanocobalamin (vit B-12) 1,000 mcg/mL injection solution RxNorm: 670050 Milliliter 05/31/2018 No longer Active cyanocobalamin (vit B-12) 1,000 mcg/mL injection solution RxNorm: 245140 1Milliliter 05/03/2018 No longer Active cyanocobalamin (vit B-12) 1,000 mcg/mL injection solution RxNorm: 133074 1Milliliter 04/04/2018 No longer Active cyanocobalamin (vit B-12) 1,000 mcg/mL injection solution RxNorm: 598409 1Milliliter 03/05/2018 No longer Active cyanocobalamin (vit B-12) 1,000 mcg/mL injection solution RxNorm: 118859 1Milliliter 01/30/2018 No longer Active cyanocobalamin (vit B-12) 1,000 mcg/mL injection solution RxNorm: 104719 1Milliliter 01/01/2018 No longer Active cyanocobalamin (vit B-12) 1,000 mcg/mL injection solution RxNorm: 206790 1Milliliter 11/28/2017 No longer Active cyanocobalamin (vit B-12) 1,000 mcg/mL injection solution RxNorm: 816625 1Milliliter 10/24/2017 No longer Active cyanocobalamin (vit B-12) 1,000 mcg/mL injection solution RxNorm: 490129 1Milliliter 09/26/2017 No longer Active cyanocobalamin (vit B-12) 1,000 mcg/mL injection solution RxNorm: 367022 1Milliliter 08/10/2017 No longer Active cyanocobalamin (vit B-12) 1,000 mcg/mL injection solution RxNorm: 130319 1Milliliter 07/18/2017 No longer Active cyanocobalamin (vit B-12) 1,000 mcg/mL injection solution RxNorm: 822413 1Milliliter 05/16/2017 No longer Active cyanocobalamin (vit B-12) 1,000 mcg/mL injection solution RxNorm: 547343 1Milliliter 03/14/2017 No longer Active Kenalog 40 mg/mL suspension for injection RxNorm: 9212264 1Milliliter 01/12/2017 No longer Active ceftriaxone 500 mg solution for injection RxNorm: 4401858 1Milliliter 01/12/2017 No longer Active cyanocobalamin (vit B-12) 1,000 mcg/mL injection solution RxNorm: 993385 1Milliliter 01/12/2017 No longer Active cyanocobalamin (vit B-12) 1,000 mcg/mL injection solution RxNorm: 341218 1Milliliter 10/27/2016 No longer Active cyanocobalamin (vit B-12) 1,000 mcg/mL injection solution RxNorm: 992087 Milliliter 07/27/2016 No longer Active cyanocobalamin (vit B-12) 1,000 mcg/mL injection solution RxNorm: 378538 1Milliliter 04/26/2016 No longer Active Immunizations Vaccine Codes Date Status Influenza CVX: 141 05/31/2018 completed Pneumococcal (Adult) CVX: 133 12/12/2016 completed Assessments Condition Codes Effective Dates 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-10: D51.0 ICD-9: 281.0 08/30/2018 Essential (primary) hypertension ICD-10: I10 ICD-9: 401.1 [...] 32.9 pg 11/28/2017 Cbc With Differential Ord2 Rogers% 12.6 % 11/28/2017 Cbc With Differential Ord2 [...] 2.87 K/ul 11/28/2017 Cbc With Differential Ord2 Rogers ABS# 1.1 K/ul 11/28/2017 Cbc With Differential Ord2 Eos ABS# 0.3 K/ul 11/28/2017 Cbc With Differential Ord2 Baso ABS# 0.0 K/ul 11/28/2017 B12 Qyv410 B12 >1500.00 pg/ml 11/28/2017 Comp Metabolic Aye749 NA 139 mEq/L 11/28/2017 Comp Metabolic Zhc177 K 5.2 mEq/L 11/28/2017 Comp Metabolic Gic450 CL 106 mEq/L 11/28/2017 Comp Metabolic Ayp355 CO2 28.0 mEq/L 11/28/2017 Comp Metabolic Tvf253 ANION GAP 10 11/28/2017 Comp Metabolic Txz077 GLUCOSE 89 mg/dL 11/28/2017 Comp Metabolic Nqm496 Creat 1.1 mg/dL 11/28/2017 Comp Metabolic Hng777 eGFR 66 ml/min/1.73m2 11/28/2017 Comp Metabolic Xai737 BUN 18 mg/dL 11/28/2017 Comp Metabolic Gpf578 B/C Ratio 16.1 Ratio 11/28/2017 Comp Metabolic Opx428 CALCIUM 9.2 mg/dL 11/28/2017 Comp Metabolic Zsj241 ALK PHOS 89 U/L 11/28/2017 Comp Metabolic Tni754 AST(SGOT) 22 U/L 11/28/2017 Comp Metabolic Ahg863 ALT(SGPT) 15 U/L 11/28/2017 Comp Metabolic Hhg952 BILI T 0.6 mg/dL 11/28/2017 Comp Metabolic Vrc153 ALBUMIN 3.9 g/dL 11/28/2017 Comp Metabolic Rjv488 TPRO 6.5 g/dL 11/28/2017 Comp Metabolic Dib132 GLOB 2.6 g/dL 11/28/2017 Comp Metabolic Vyu609 A/G Ratio 1.5 Ratio 11/28/2017 Comp Metabolic Uou342 Osmo 279 mOsmo 11/28/2017 Ferritin Ord22 FERRITIN 218.2 ng/mL 11/28/2017 Ferritin Ord22 FERRITIN 211.2 ng/mL 07/18/2017 Cbc With Differential Ord2 WBC 8.61 K/ul 07/18/2017 Cbc With Differential Ord2 RBC 4.48 M/ul 07/18/2017 Cbc With Differential Ord2 HGB 15.1 g/dl 07/18/2017 Cbc With Differential Ord2 HCT 45.1 % 07/18/2017 Cbc With Differential Ord2 Neut% 51.5 % 07/18/2017 Cbc With Differential Ord2 Lymph% 33.7 % 07/18/2017 Cbc With Differential Ord2 MCV 100.7 fl 07/18/2017 Cbc With Differential Ord2 Rogers% 12.3 % 07/18/2017 Cbc With Differential Ord2 MCH 33.7 pg 07/18/2017 Cbc With Differential Ord2 Eos% 2.0 % 07/18/2017 Cbc With Differential Ord2 MCHC 33.5 pg 07/18/2017 Cbc With Differential Ord2 PLT 305 K/ul 07/18/2017 Cbc With Differential Ord2 Baso% 0.5 % 07/18/2017 Cbc With Differential Ord2 RDW 13.9 % 07/18/2017 Cbc With Differential Ord2 Neut ABS# 4.44 K/ul 07/18/2017 Cbc With Differential Ord2 Lymph ABS# 2.90 K/ul 07/18/2017 Cbc With Differential Ord2 Rogers ABS# 1.1 K/ul 07/18/2017 Cbc With Differential Ord2 Eos ABS# 0.2 K/ul 07/18/2017 Cbc With Differential Ord2 Baso ABS# 0.0 K/ul 07/18/2017 Comp Metabolic Ufl075 NA 140 mEq/L 07/18/2017 Comp Metabolic Ofu874 K 4.6 mEq/L 07/18/2017 Comp Metabolic Ygu342 CL 105 mEq/L 07/18/2017 Comp Metabolic Sfx281 CO2 29.0 mEq/L 07/18/2017 Comp Metabolic Qyv082 ANION GAP 11 07/18/2017 Comp Metabolic Oux219 GLUCOSE 96 mg/dL 07/18/2017 Comp Metabolic Kuv801 Creat 1.0 mg/dL 07/18/2017 Comp Metabolic Mbr985 eGFR 73 ml/min/1.73m2 07/18/2017 Comp Metabolic Kch510 BUN 12 mg/dL 07/18/2017 Comp Metabolic Lwi452 B/C Ratio 11.7 Ratio 07/18/2017 Comp Metabolic Odw189 CALCIUM 9.2 mg/dL 07/18/2017 Comp Metabolic Kqd376 ALK PHOS 74 U/L 07/18/2017 Comp Metabolic Mgz548 AST(SGOT) 29 U/L 07/18/2017 Comp Metabolic Doy330 ALT(SGPT) 16 U/L 07/18/2017 Comp Metabolic Yfa580 BILI T 0.7 mg/dL 07/18/2017 Comp Metabolic Qum886 ALBUMIN 3.7 g/dL 07/18/2017 Comp Metabolic Wdf079 TPRO 6.5 g/dL 07/18/2017 Comp Metabolic Icq435 GLOB 2.8 g/dL 07/18/2017 Comp Metabolic Uzr036 A/G Ratio 1.3 Ratio 07/18/2017 Comp Metabolic Ukl005 Osmo 279 mOsmo 07/18/2017 Iron Ord72 Iron 114 ug/dl 07/18/2017 B12 Ocs433 B12 233.00 pg/ml 07/18/2017 Tsh Ord6 hTSH [...] 33.3 pg 12/13/2016 Cbc With Differential Ord2 Rogers% 17.9 % 12/13/2016 Cbc With Differential Ord2 [...] 2.71 K/ul 12/13/2016 Cbc With Differential Ord2 Rogers ABS# 1.7 K/ul 12/13/2016 Cbc With Differential Ord2 Eos ABS# 0.3 K/ul 12/13/2016 Cbc With Differential Ord2 Baso ABS# 0.0 K/ul 12/13/2016 Comp Metabolic Unt827 NA 136 mEq/L 12/13/2016 Comp Metabolic Vkc427 K 4.7 mEq/L 12/13/2016 Comp Metabolic Gzm706 CL 102 mEq/L 12/13/2016 Comp Metabolic Bfl284 CO2 26.0 mEq/L 12/13/2016 Comp Metabolic Lji238 ANION GAP 13 12/13/2016 Comp Metabolic Cbi006 GLUCOSE 87 mg/dL 12/13/2016 Comp Metabolic Dte643 Creat 0.9 mg/dL 12/13/2016 Comp Metabolic Jbm812 eGFR 83 ml/min/1.73m2 12/13/2016 Comp Metabolic Zzw762 BUN 17 mg/dL 12/13/2016 Comp Metabolic Jwn902 B/C Ratio 18.3 Ratio 12/13/2016 Comp Metabolic Iev042 CALCIUM 9.1 mg/dL 12/13/2016 Comp Metabolic Aov102 ALK PHOS 90 U/L 12/13/2016 Comp Metabolic Sjb586 AST(SGOT) 22 U/L 12/13/2016 Comp Metabolic Qkd794 ALT(SGPT) 15 U/L 12/13/2016 Comp Metabolic Jbq723 BILI T 0.8 mg/dL 12/13/2016 Comp Metabolic Fkm939 ALBUMIN 3.6 g/dL 12/13/2016 Comp Metabolic Pav132 TPRO 6.4 g/dL 12/13/2016 Comp Metabolic Gsi830 GLOB 2.9 g/dL 12/13/2016 Comp Metabolic Gmt478 A/G Ratio 1.2 Ratio 12/13/2016 Comp Metabolic Czn448 Osmo 273 mOsmo 12/13/2016 Lipid Ord30 CHOL 182 mg/dL 12/13/2016 Lipid Ord30 HDL 64.0 mg/dl 12/13/2016 Lipid Ord30 TRIG 62 mg/dL 12/13/2016 Lipid Ord30 LDL 106 mg/dL 12/13/2016 Lipid Ord30 C/HDL 2.8 Ratio 12/13/2016 Ferritin Ord22 FERRITIN 434.7 ng/mL 12/13/2016 B12 Uww344 B12 247.00 pg/ml 12/13/2016 Tibc Ord40 Iron [...] 33.7 pg 04/27/2016 Cbc With Differential Ord2 Rogers% 13.7 % 04/27/2016 Cbc With Differential Ord2 [...] 3.22 K/ul 04/27/2016 Cbc With Differential Ord2 Rogers ABS# 1.2 K/ul 04/27/2016 Cbc With Differential Ord2 Eos ABS# 0.3 K/ul 04/27/2016 Cbc With Differential Ord2 Baso ABS# 0.0 K/ul 04/27/2016 Comp Metabolic Nqq160 NA 138 mEq/L 04/27/2016 Comp Metabolic Pvn084 K 4.3 mEq/L 04/27/2016 Comp Metabolic Xvx942 CL 104 mEq/L 04/27/2016 Comp Metabolic Enu852 CO2 30.0 mEq/L 04/27/2016 Comp Metabolic Kkg871 ANION GAP 8 04/27/2016 Comp Metabolic Ivn442 GLUCOSE 87 mg/dL 04/27/2016 Comp Metabolic Npc807 Creat 0.9 mg/dL 04/27/2016 Comp Metabolic Mho531 eGFR 82 ml/min/1.73m2 04/27/2016 Comp Metabolic Wlo554 BUN 13 mg/dL 04/27/2016 Comp Metabolic Npp528 B/C Ratio 13.8 Ratio 04/27/2016 Comp Metabolic Bhx312 CALCIUM 9.0 mg/dL 04/27/2016 Comp Metabolic Cko274 ALK PHOS 62 U/L 04/27/2016 Comp Metabolic Wtw695 AST(SGOT) 24 U/L 04/27/2016 Comp Metabolic Fng464 ALT(SGPT) 15 U/L 04/27/2016 Comp Metabolic Mgf879 BILI T 0.7 mg/dL 04/27/2016 Comp Metabolic Fcz151 ALBUMIN 3.6 g/dL 04/27/2016 Comp Metabolic Wen677 TPRO 6.1 g/dL 04/27/2016 Comp Metabolic Mlo087 GLOB 2.5 g/dL 04/27/2016 Comp Metabolic Flv072 A/G Ratio 1.4 Ratio 04/27/2016 Comp Metabolic Ntd720 Osmo 275 mOsmo 04/27/2016 B12 Lgo017 B12 >1500.00 pg/ml 04/27/2016 Iron Ord72 Iron [...] Procedure Codes Date THER/PROPH/DIAG INJ SC/IM CPT-4: 74372 08/30/2018 VITAMIN B12 INJECTION CPT- 4: J3420 08/30/2018 VITAMIN B12 INJECTION CPT- 4: J3420 07/31/2018 THER/PROPH/DIAG INJ SC/IM CPT-4: 16084 07/31/2018 THER/PROPH/DIAG INJ SC/IM CPT-4: 13904 07/02/2018 VITAMIN B12 INJECTION CPT- 4: J3420 07/02/2018 THER/PROPH/DIAG INJ SC/IM CPT-4: 50733 05/31/2018 ADMIN INFLUENZA VIRUS VAC CPT-4: G0008 05/31/2018 VITAMIN B12 INJECTION CPT- 4: J3420 05/31/2018 FLU VACC PRSV FREE INC ANTIG Formatting Model/CDA Sections, Assigned to/Mary Grace Rosado CPT-4: 40090Noqbobc 05/31/2018 VITAMIN B12 INJECTION CPT- 4: J3420 05/03/2018 THER/PROPH/DIAG INJ SC/IM CPT-4: 76846 05/03/2018 THER/PROPH/DIAG INJ SC/IM CPT-4: 64856 04/04/2018 VITAMIN B12 INJECTION CPT- 4: J3420 04/04/2018 THER/PROPH/DIAG INJ SC/IM CPT-4: 91916 03/05/2018 VITAMIN B12 INJECTION CPT- 4: J3420 03/05/2018 VITAMIN B12 INJECTION CPT- 4: J3420 01/30/2018 THER/PROPH/DIAG INJ SC/IM CPT-4: 08534 01/30/2018 THER/PROPH/DIAG INJ SC/IM CPT-4: 31315 01/01/2018 VITAMIN B12 INJECTION CPT- 4: J3420 01/01/2018 PPPS, SUBSEQ VISIT CPT- 4: G0439 12/18/2017 THER/PROPH/DIAG INJ SC/IM CPT-4: 01255 11/28/2017 VITAMIN B12 INJECTION CPT- 4: J3420 11/28/2017 THER/PROPH/DIAG INJ SC/IM CPT-4: 36891 10/24/2017 VITAMIN B12 INJECTION CPT- 4: J3420 10/24/2017 THER/PROPH/DIAG INJ SC/IM CPT-4: 22415 09/26/2017 VITAMIN B12 INJECTION CPT- 4: J3420 09/26/2017 THER/PROPH/DIAG INJ SC/IM CPT-4: 98014 08/10/2017 VITAMIN B12 INJECTION CPT- 4: J3420 08/10/2017 THER/PROPH/DIAG INJ SC/IM CPT-4: 09551 07/18/2017 VITAMIN B12 INJECTION CPT- 4: J3420 07/18/2017 THER/PROPH/DIAG INJ SC/IM CPT-4: 19659 05/16/2017 VITAMIN B12 INJECTION CPT- 4: J3420 05/16/2017 THER/PROPH/DIAG INJ SC/IM CPT-4: 64492 03/14/2017 VITAMIN B12 INJECTION CPT- 4: J3420 03/14/2017 TRIAMCINOLONE ACET INJ NOS CPT-4: J3301 01/12/2017 ROCEPHIN, PER 250 MG CPT- 4: J0696 01/12/2017 VITAMIN B12 INJECTION CPT- 4: J3420 01/12/2017 THER/PROPH/DIAG INJ SC/IM CPT-4: 77156 01/12/2017 PPPS, SUBSEQ VISIT CPT- 4: G0439 12/12/2016 PNEUMOCOCCAL VACC [address]: 31428790 CPT-4: 53244 12/12/2016 ADMIN PNEUMOCOCCAL VACCINE SNOMED CT: 37780391 CPT-4: G0009 12/12/2016 THER/PROPH/DIAG INJ SC/IM CPT-4: 08132 10/27/2016 VITAMIN B12 INJECTION CPT- 4: J3420 10/27/2016 THER/PROPH/DIAG INJ SC/IM CPT-4: 02883 07/27/2016 VITAMIN B12 INJECTION CPT- 4: J3420 07/27/2016 THER/PROPH/DIAG INJ SC/IM CPT-4: 69809 04/26/2016 VITAMIN B12 INJECTION CPT- 4: J3420 04/26/2016 Vital Signs Date Vital 08/15/2018 Blood Pressure 1: 144/66 Code: 8480-6 BMI: 25.1 Code: 48873-5 Heart Rate 1: 75 bpm Height: 5'7" SpO2: 98% Weight: 160 lbs 05/23/2018 Blood Pressure 1: 158/64 Code: 8480-6 BMI: 24.7 Code: 79405-5 Heart Rate 1: 76 bpm Height: 5'7" SpO2: 96% Temperature: 36.7 (C) / 98.1 (F) Weight: 158 lbs 05/03/2018 Blood Pressure 1: 122/72 Code: 8480-6 BMI: 25.1 Code: 16113-2 Heart Rate 1: 74 bpm Height: 5'7" SpO2: 97% Weight: 160 lbs 01/31/2018 Blood Pressure 1: 137/77 Code: 8480-6 Blood Pressure 2: 138/68 Code: 8480-6 Heart Rate 1: 67 bpm SpO2: 98% 01/30/2018 Blood Pressure 1: 138/66 Code: 8480-6 BMI: 25.1 Code: 57328-3 Heart Rate 1: 76 bpm Height: 5'7" SpO2: 94% Weight: 160 lbs 12/18/2017 Blood Pressure 1: 152/88 Code: 8480-6 BMI: 25.8 Code: 50078-7 Heart Rate 1: 68 bpm Height: 5'7" SpO2: 96% Weight: 165 lbs 11/28/2017 Blood Pressure 1: 150/76 Code: 8480-6 BMI: 25.2 Code: 52680-2 Heart Rate 1: 78 bpm Height: 5'7" SpO2: 98% Weight: 161 lbs 10/10/2017 Blood Pressure 1: 156/76 Code: 8480-6 BMI: 24.7 Code: 52242-2 Heart Rate 1: 71 bpm Height: 5'7" SpO2: 98% Weight: 158 lbs 09/26/2017 Blood Pressure 1: 162/82 Code: 8480-6 BMI: 24.7 Code: 93970-8 Heart Rate 1: 69 bpm Height: 5'7" SpO2: 99% Weight: 158 lbs 08/16/2017 Blood Pressure 1: 154/82 Code: 8480-6 BMI: 24.1 Code: 53252-5 Heart Rate 1: 58 bpm Height: 5'7" SpO2: 96% Weight: 154 lbs 07/18/2017 Blood Pressure 1: 152/88 Code: 8480-6 BMI: 25.2 Code: 49322-0 Heart Rate 1: 72 bpm Height: 5'7" SpO2: 98% Weight: 161 lbs 05/16/2017 Blood Pressure 1: 136/78 Code: 8480-6 BMI: 24.8 Code: 18576-9 Heart Rate 1: 71 bpm Height: 5'7" SpO2: 96% Weight: 158 lbs 8 oz 03/14/2017 Blood Pressure 1: 142/74 Code: 8480-6 BMI: 23.8 Code: 19919-2 Heart Rate 1: 69 bpm Height: 5'7" SpO2: 94% Weight: 152 lbs 01/12/2017 Blood Pressure 1: 156/90 Code: 8480-6 BMI: 23.4 Code: 33500-8 Heart Rate 1: 90 bpm Height: 5'7" SpO2: 97% Temperature: 37.4 (C) / 99.3 (F) Weight: 149 lbs 8 oz 12/12/2016 Blood Pressure 1: 140/78 Code: 8480-6 BMI: 24.3 Code: 28266-0 Heart Rate 1: 73 bpm Height: 5'7" SpO2: 96% Waist Measure (cm): 90 cm Weight: 155 lbs 12/08/2016 Blood Pressure 1: 148/84 Code: 8480-6 BMI: 24.3 Code: 58113-4 Heart Rate 1: 80 bpm Height: 5'7" SpO2: 96% Weight: 155 lbs 11/03/2016 Blood Pressure 1: 156/84 Code: 8480-6 Blood Pressure 2: 155/94 Code: 8480-6 BMI: 24.3 Code: 86017-1 Heart Rate 1: 81 bpm Height: 5'7" SpO2: 98% Weight: 155 lbs 10/06/2016 Blood Pressure 1: 175/95 Code: 8480-6 Heart Rate 1: 77 bpm Respiratory Rate: 16 bpm SpO2: 98% Temperature: 36.4 (C) / 97.5 (F) Weight: 157 lbs 09/06/2016 Blood Pressure 1: 136/80 Code: 8480-6 BMI: 24.1 Code: 99550-0 Heart Rate 1: 82 bpm Height: 5'8" SpO2: 97% Weight: 156 lbs 08/23/2016 Blood Pressure 1: 160/80 Code: 8480-6 BMI: 24.4 Code: 19983-4 Heart Rate 1: 88 bpm Height: 5'8" SpO2: 95% Weight: 158 lbs 04/26/2016 Blood Pressure 1: 156/74 Code: 8480-6 BMI: 24.5 Code: 70488-6 Heart Rate 1: 70 bpm Height: 5'8" [...] data Encounters Encounter Performer Location Codes Date ([id number]) [id number] EST. PATIENT, LEVEL III Diagnosis: Essential (primary) hypertension[ICD10: I10] Andree Paris MD, [facility] CPT-4: 43458 08/15/2018 [id number] EST. PATIENT, LEVEL III Diagnosis: Dysphagia, pharyngoesophageal phase[ICD10: R13.14] Teresa Paris MD, [facility] CPT-4: 40952 05/23/2018 [id number]) [id number] EST. PATIENT, LEVEL IV Diagnosis: Essential (primary) hypertension[ICD10: I10] Diagnosis: Chronic pain syndrome[ICD10: G89.4] Diagnosis: 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 deficiency[ICD10: D51.0] Diagnosis: Other iron deficiency anemias[ICD10: D50.8] Diagnosis: Slow transit constipation[ICD10: K59.01] Andree Paris MD, [facility] CPT-4: 14613 05/03/2018 ([id number]) Miscellaneous no charge Diagnosis: Essential (primary) hypertension[ICD10: I10] Teresa Paris MD, [facility] CPT-4: 48623 01/31/2018 ([id number]) [id number] EST. PATIENT, LEVEL IV Diagnosis: Essential (primary) hypertension[ICD10: I10] Diagnosis: Chronic pain syndrome[ICD10: G89.4] Andree Paris MD, [facility] CPT- 4: 09543 01/30/2018 ([id number]) 35775 EST. PATIENT, LEVEL IV Diagnosis: Essential (primary) hypertension[ICD10: I10] Diagnosis: Chronic pain syndrome[ICD10: G89.4] Diagnosis: 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 deficiency[ICD10: D51.0] Diagnosis: Iron deficiency anemia, unspecified[ICD10: D50.9] Ana Paris MD, [facility] CPT-4: 78080 11/28/2017 61818 EST. PATIENT, LEVEL IV Diagnosis: Essential (primary) hypertension[ICD10: I10] Diagnosis: Slow transit constipation[ICD10: K59.01] Diagnosis: Chronic pain syndrome[ICD10: G89.4] Teresa Paris MD, [facility] CPT- 4: 89768 10/10/2017 40137 EST. PATIENT, LEVEL IV Diagnosis: 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 deficiency[ICD10: D51.0] Diagnosis: Essential (primary) hypertension[ICD10: I10] Diagnosis: Chronic pain syndrome[ICD10: G89.4] Teresa Paris MD, [facility] CPT- 4: 69040 09/26/2017 96338 EST. PATIENT, LEVEL III Diagnosis: Dysphagia, pharyngoesophageal phase[ICD10: R13.14] Teresa Paris MD, [facility] CPT-4: 54082 08/16/2017 ([id number]) 51336 EST. PATIENT, LEVEL IV Diagnosis: Essential (primary) hypertension[ICD10: I10] Diagnosis: Chronic pain syndrome[ICD10: G89.4] Diagnosis: 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 deficiency[ICD10: D51.0] Diagnosis: Iron deficiency anemia, unspecified[ICD10: D50.9] Diagnosis: Dysphagia, pharyngoesophageal phase[ICD10: R13.14] Ana Paris MD, [facility] CPT-4: 72185 07/18/2017 ([id number]) 67202 EST. PATIENT, LEVEL III Diagnosis: Essential (primary) hypertension[ICD10: I10] Diagnosis: Chronic pain syndrome[ICD10: G89.4] Diagnosis: 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 deficiency[ICD10: D51.0] Ana Paris MD, [facility] CPT-4: 36966 05/16/2017 ([id number]) 61896 EST. PATIENT, LEVEL III Diagnosis: Essential (primary) hypertension[ICD10: I10] Diagnosis: Chronic pain syndrome[ICD10: G89.4] Diagnosis: 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 deficiency[ICD10: D51.0] Ana Paris MD, [facility] CPT-4: 95675 03/14/2017 ([id number]) 30295 EST. PATIENT, LEVEL III Diagnosis: Cough[ICD10: R05] Diagnosis: Acute bronchitis, unspecified[ICD10: J20.9] Diagnosis: Chronic pain syndrome[ICD10: G89.4] Diagnosis: 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 deficiency[ICD10: D51.0] Ana Paris MD, [facility] CPT-4: 04389 01/12/2017 ([id number]) 31336 EST. PATIENT, LEVEL III Diagnosis: Essential (primary) hypertension[ICD10: I10] Diagnosis: Chronic pain syndrome[ICD10: G89.4] Ana Paris MD, [facility] CPT-4: 00054 12/08/2016 ([id number]) 36421 EST. PATIENT, LEVEL III Diagnosis: Essential (primary) hypertension[ICD10: I10] Ana Paris MD, [facility] CPT-4: 85907 11/03/2016 ([id number]) 36678 EST. PATIENT, LEVEL III Diagnosis: Essential (primary) hypertension[ICD10: I10] Ana Paris MD, [facility] CPT-4: 81706 10/06/2016 ([id number]) 96680 EST. PATIENT, LEVEL III Diagnosis: Essential (primary) hypertension[ICD10: I10] [facility] CPT-4: 91795 09/06/2016 ([id number]) 60901 EST. PATIENT, LEVEL III Diagnosis: Essential (primary) hypertension[ICD10: I10] [facility] CPT-4: 42702 08/23/2016 ([id number]) OFFICE VISIT, NEW - LEVEL 4 Diagnosis: Noninfective gastroenteritis and colitis, unspecified[ICD10: K52.9] Diagnosis: 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 deficiency[ICD10: D51.0] Diagnosis: Iron deficiency anemia, unspecified[ICD10: D50.9] Diagnosis: Chalazion left upper eyelid[ICD10: H00.14] Diagnosis: Elevated blood-pressure reading, without diagnosis of hypertension[ICD10: R03.0] [facility] CPT-4: 53501 04/26/2016 Plan of Care Planned Activity Notes Codes Status Date Appointment: Injection 08/30/2018 Patient Education: Patient Medication [...] his amlodipine 08/15/2018 Appointment: Andree Paris WPtel: [address] [place], [place] [phone] (15 min) Moderate 08/15/2018 Patient Education: Patient [...] treatment plan. 05/23/2018 Appointment: Teresa Bardales WPtel: [phone] [phone] (15 min) Moderate 05/23/2018 Patient Education: Patient [...] management. 05/03/2018 Appointment: Andree Paris WPtel: [phone] [facility] (15 min) Moderate 05/03/2018 Patient Education: Patient [...] over-medication. 01/30/2018 Appointment: Andree Paris WPtel: [phone] [facility] (15 min) Moderate 01/30/2018 Patient Education: Patient [...] [phone] [facility] - Annual Wellness Visit 12/18/2017 Patient [...] def-check labs 11/28/2017 Appointment: Ana Pedraza WPtel: [phone] [phone] (30 min) Complex 11/28/2017 Patient Education: Patient [...] regimen. 10/10/2017 [facility]ment[phone] [place] (30 min) Complex 10/10/2017 Patient Education: [...] consequences of over-medication. 09/26/2017 Appointment: Teresa Bardalesl: [facility] (30 min) Complex 09/26/2017 Patient Education: Patient Medication Summary Completed 09/26/2017 Appointment: Teresa Bardalestel: [facility] (30 min) Complex 09/19/2017 Referral: External, Ordering Provider Referral Appointment Confirmed 08/17/2017 Visit Plan: Dysphagia - worsening since yesterday - will refer to Dr. Harper for possible EGD - pt is to notify clinic if symptoms do not improve, if they worsen, or with any acute changes, questions, or concerns. 08/16/2017 Appointment: Teresa Bardales: [facility] (30 min) Complex 08/16/2017 Patient Education: Patient Medication Summary Completed 08/16/2017 Care Plan: Referral Order SNOMED-CT : [id number] Pending 08/16/2017 Appointment: Injection 08/10/2017 Patient Education: [...] today first 07/18/2017 Appointment: Ana Pedraza WPtel: [address] [place], [place] [id number] [place] [address] (30 min) Complex 07/18/2017 Patient Education: Patient [...] of over-medication. 05/16/2017 Appointment: Ana Pedraza WPtel: [facility] [place] [address] (30 min) Complex 05/16/2017 Patient Education: Patient [...] Pedraza WPtel: [phone] (30 min) Complex 03/14/2017 Patient Education: Patient [...] of over-medication. 01/12/2017 Appointment: Ana Pedraza WPtel: [phone] (30 min) Complex 01/12/2017 Patient Education: Patient [...] care surrogate. 12/12/2016 Appointment: Ana Pedraza WPtel: [address] [place], [place] [phone] [facility] - Annual Wellness Visit 12/12/2016 Patient [...] of over-medication. 12/08/2016 Appointment: Ana Pedraza WPtel: [phone] [phone] (30 min) Complex 12/08/2016 Patient Education: Patient [...] Ana Pedraza WPtel: [phone] (30 min) Complex 11/03/2016 Patient Education: Patient [...] acute concerns. 10/06/2016 Appointment: Ana Pedraza WPtel: [phone] [phone] (30 min) Complex 10/06/2016 Patient Education: Patient [...] acute concerns. 09/06/2016 Appointment: Ana Pedraza WPtel: [address] [place], [place] [phone] (30 min) Complex 09/06/2016 Patient Education: Patient [...] acute concerns. 08/23/2016 Appointment: Ana Pedraza WPtel: [phone] (15 min) Moderate 08/23/2016 Patient Education: Patient [...] for gentamycin. 04/26/2016 Appointment: Andree Paris WPtel: [facility] New Patient 04/26/2016 Patient Education: Patient Medication [...]
--- OUTSIDE RECORDS SUMMARY | 2019-02-13 09:47 | XMS REPORT | CCD ---
Author Author Andree Paris Organization Andree Paris MD, [facility] Address [address] [place] [address] Phone Care Team Providers Care Director Of Workforce Development Name Role Phone PP Unavailable CCM Unavailable Summary Purpose Interface Exchange Insurance Providers Payer name Policy type / Coverage type Covered libertarian ID Effective Begin Date Effective End Date WPS Medicare Part B Medicare Part B [id number] Unknown Unknown FOR LIFE WPS Medicare Part B [id number] Unknown Unknown Family history Father Diagnosis Age At Onset No Known Diseases N/A Mother Diagnosis Age At Onset No Known Diseases N/A Social History Social History Element Codes Description Effective Dates Marital status Unknown 04/26/2016 Number of children Unknown 3 04/26/2016 Employment Unknown Retired 04/26/[address]: 6730001 Former smoker Quit 1969 04/26/[address]: 442369 Currently drinks alcohol 04/26/2016 Has the patient [...] morphine ER 30 mg tablet,extended release RxNorm: 144980 1 Tablet(s) PO daily 08/30/2018 09/28/2018 Active cyanocobalamin (vit B-12) 1,000 mcg/mL injection solution RxNorm: 536052 Milliliter(s) Inj 08/30/2018 08/30/2018 Inactive cyanocobalamin (vit B-12) 1,000 mcg/mL injection solution RxNorm: 044191 Milliliter(s) Inj 07/31/2018 07/31/2018 Inactive morphine ER 30 mg tablet,extended release RxNorm: 892105 1 Tablet(s) PO daily 07/31/2018 08/29/2018 Inactive amlodipine 5 mg tablet RxNorm: 745062 1 Tablet(s) PO QPM 07/11/2018 01/06/2019 Active cyanocobalamin (vit B-12) 1,000 mcg/mL injection solution RxNorm: 655773 1 Milliliter(s) Inj 07/02/2018 07/02/2018 Inactive morphine ER 30 mg tablet,extended release RxNorm: 876629 1 Tablet(s) PO daily 07/02/2018 07/30/2018 Inactive morphine ER 30 mg tablet,extended release RxNorm: 333534 1 Tablet(s) PO daily 05/31/2018 06/29/2018 Inactive cyanocobalamin (vit B-12) 1,000 mcg/mL injection solution RxNorm: 722179 Milliliter(s) Inj 05/31/2018 05/31/2018 Inactive Protonix 40 mg tablet,delayed release RxNorm: 166095 1 Tablet(s) PO daily 05/23/2018 06/21/2018 Inactive Carafate 1 gram tablet RxNorm: 884019 1 Tablet(s) PO AC & HS as needed 05/23/2018 06/21/2018 Inactive cyanocobalamin (vit B-12) 1,000 mcg/mL injection solution RxNorm: 972105 1 Milliliter(s) Inj 05/03/2018 05/03/2018 Inactive morphine ER 30 mg tablet,extended release RxNorm: 546586 1 Tablet(s) PO daily 04/04/2018 05/03/2018 Inactive cyanocobalamin (vit B-12) 1,000 mcg/mL injection solution RxNorm: 384423 1 Milliliter(s) Inj 04/04/2018 04/04/2018 Inactive cyanocobalamin (vit B-12) 1,000 mcg/mL injection solution RxNorm: 822636 1 Milliliter(s) Inj 03/05/2018 03/05/2018 Inactive morphine ER 30 mg tablet,extended release RxNorm: 078260 1 Tablet(s) PO daily 03/05/2018 04/03/2018 Inactive cyanocobalamin (vit B-12) 1,000 mcg/mL injection solution RxNorm: 863561 1 Milliliter(s) Inj 01/30/2018 01/30/2018 Inactive cyanocobalamin (vit B-12) 1,000 mcg/mL injection solution RxNorm: 439353 1 Milliliter(s) Inj 01/01/2018 01/01/2018 Inactive morphine ER 30 mg tablet,extended release RxNorm: 757677 1 Tablet(s) PO daily 01/01/2018 01/30/2018 Inactive lisinopril 20 mg tablet RxNorm: 637326 1 Tablet(s) PO BID 12/18/2017 12/12/2018 Active amlodipine 5 mg tablet RxNorm: 186220 1 Tablet(s) PO QPM 12/18/2017 06/15/2018 Inactive cyanocobalamin (vit B-12) 1,000 mcg/mL injection solution RxNorm: 248488 1 Milliliter(s) Inj 11/28/2017 11/28/2017 Inactive morphine ER 30 mg tablet,extended release RxNorm: 596032 1 Tablet(s) PO daily 11/28/2017 12/27/2017 Inactive morphine ER 30 mg tablet,extended release RxNorm: 607990 1 Tablet(s) PO daily 11/09/2017 11/27/2017 Inactive cyanocobalamin (vit B-12) 1,000 mcg/mL injection solution RxNorm: 783926 1 Milliliter(s) Inj 10/24/2017 10/24/2017 Inactive morphine ER 30 mg tablet,extended release RxNorm: 671460 1 Tablet(s) PO daily 10/10/2017 11/08/2017 Inactive hydrochlorothiazide 25 mg tablet RxNorm: 607209 1 Tablet(s) PO daily 10/10/2017 11/08/2017 Inactive cyanocobalamin (vit B-12) 1,000 mcg/mL injection solution RxNorm: 043748 1 Milliliter(s) Inj 09/26/2017 09/26/2017 Inactive hydrochlorothiazide 12.5 mg tablet RxNorm: 526074 1 Tablet(s) PO daily 09/26/2017 10/25/2017 Inactive morphine ER 30 mg tablet,extended release RxNorm: 587184 1 Tablet(s) PO daily 09/12/2017 10/09/2017 Inactive cyanocobalamin (vit B-12) 1,000 mcg/mL injection solution RxNorm: 445397 1 Milliliter(s) Inj 08/10/2017 08/10/2017 Inactive morphine ER 30 mg tablet,extended release RxNorm: 457067 1 Tablet(s) PO daily 08/10/2017 09/08/2017 Inactive Vitamin B-12 1,000 mcg/mL injection solution RxNorm: 971493 1 Milliliter(s) Inj month 07/21/2017 No Stop Date Active B12 INJECTIONS MONTHLY cyanocobalamin (vit B-12) 1,000 mcg/mL injection solution RxNorm: 972642 1 Milliliter(s) Inj 07/18/2017 07/18/2017 Inactive morphine ER 30 mg tablet,extended release RxNorm: 710639 1 Tablet(s) PO daily 07/13/2017 08/09/2017 Inactive morphine ER 30 mg tablet,extended release RxNorm: 664249 1 Tablet(s) PO daily 06/15/2017 07/12/2017 Inactive cyanocobalamin (vit B-12) 1,000 mcg/mL injection solution RxNorm: 112387 1 Milliliter(s) Inj 05/16/2017 05/16/2017 Inactive morphine ER 30 mg tablet,extended release RxNorm: 556725 1 Tablet(s) PO daily 04/13/2017 05/12/2017 Inactive cyanocobalamin (vit B-12) 1,000 mcg/mL injection solution RxNorm: 780458 1 Milliliter(s) Inj 03/14/2017 03/14/2017 Inactive morphine ER 30 mg tablet,extended release RxNorm: 845500 1 Tablet(s) PO daily 03/14/2017 04/12/2017 Inactive morphine ER 30 mg tablet,extended release RxNorm: 962335 1 Tablet(s) PO daily 02/13/2017 03/13/2017 Inactive Kenalog 40 mg/mL suspension for injection RxNorm: 0874358 1 Milliliter(s) Inj 01/12/2017 01/12/2017 Inactive cyanocobalamin (vit B-12) 1,000 mcg/mL injection solution RxNorm: 914485 1 Milliliter(s) Inj 01/12/2017 01/12/2017 Inactive Zithromax Z-[place] 250 mg tablet RxNorm: 104380 1 Tablet(s) PO UD 01/12/2017 01/16/2017 Inactive ceftriaxone 500 mg solution for injection RxNorm: 7505894 1 Milliliter(s) Inj 01/12/2017 01/12/2017 Inactive Vitamin B-12 1,000 mcg/mL injection solution RxNorm: 246715 1 Milliliter(s) Inj EVERY OTHER MONTH 01/04/2017 07/20/2017 Inactive lisinopril 20 mg tablet RxNorm: 041719 1 Tablet(s) PO BID 01/02/2017 12/17/2017 Inactive lisinopril 20 mg tablet RxNorm: 544218 1 Tablet(s) PO BID 12/12/2016 01/01/2017 Inactive morphine ER 30 mg tablet,extended release RxNorm: 377877 1 Tablet(s) PO daily 12/08/2016 01/06/2017 Inactive lisinopril 20 mg tablet RxNorm: 558182 1 Tablet(s) PO BID 11/03/2016 12/11/2016 Inactive morphine ER 30 mg tablet,extended release RxNorm: 924394 1 Tablet(s) PO daily 11/03/2016 12/02/2016 Inactive cyanocobalamin (vit B-12) 1,000 mcg/mL injection solution RxNorm: 294155 1 Milliliter(s) Inj 10/27/2016 10/27/2016 Inactive lisinopril 10 mg tablet RxNorm: 751881 1 Tablet(s) PO BID 10/06/2016 11/02/2016 Inactive lisinopril 10 mg tablet RxNorm: 939179 1 Tablet(s) PO daily 09/06/2016 10/05/2016 Inactive morphine ER 30 mg tablet,extended release RxNorm: 840107 1 Tablet(s) PO daily 08/18/2016 09/16/2016 Inactive cyanocobalamin (vit B-12) 1,000 mcg/mL injection solution RxNorm: 597353 Milliliter(s) Inj 07/27/2016 07/27/2016 Inactive morphine ER 30 mg tablet,extended release RxNorm: 208973 1 Tablet(s) PO daily 07/21/2016 08/17/2016 Inactive morphine ER 30 mg tablet,extended release RxNorm: 491328 1 Tablet(s) PO daily 06/20/2016 07/19/2016 Inactive morphine ER 30 mg tablet,extended release RxNorm: 703771 1 Tablet(s) PO daily 05/20/2016 06/19/2016 Inactive cyanocobalamin (vit B-12) 1,000 mcg/mL injection solution RxNorm: 928088 1 Milliliter(s) Inj 04/26/2016 04/26/2016 Inactive gentamicin 0.3 % eye drops RxNorm: 066264 2 Drop(s) OPH Q4H 04/26/2016 05/02/2016 Inactive Vitamin B-12 1,000 mcg/mL injection solution RxNorm: 534491 1 Milliliter(s) Inj EVERY 3 MONTHS No Start Date 01/03/2017 Inactive Claritin 10 mg tablet RxNorm: 298168 1 Tablet(s) PO daily No Start Date 07/17/2017 Inactive Venofer intravenous RxNorm: 70335 intravenous No Start Date 08/14/2018 Inactive morphine ER 30 mg tablet,extended release RxNorm: 418116 1 Tablet(s) PO daily No Start Date 04/25/2016 Inactive Medication Administered Medication Codes Instructions Start Date Status cyanocobalamin (vit B-12) 1,000 mcg/mL injection solution RxNorm: 617447 Milliliter 08/30/2018 Active cyanocobalamin (vit B-12) 1,000 mcg/mL injection solution RxNorm: 700335 Milliliter 07/31/2018 No longer Active cyanocobalamin (vit B-12) 1,000 mcg/mL injection solution RxNorm: 096517 1Milliliter 07/02/2018 No longer Active cyanocobalamin (vit B-12) 1,000 mcg/mL injection solution RxNorm: 817959 Milliliter 05/31/2018 No longer Active cyanocobalamin (vit B-12) 1,000 mcg/mL injection solution RxNorm: 925713 1Milliliter 05/03/2018 No longer Active cyanocobalamin (vit B-12) 1,000 mcg/mL injection solution RxNorm: 292493 1Milliliter 04/04/2018 No longer Active cyanocobalamin (vit B-12) 1,000 mcg/mL injection solution RxNorm: 703931 1Milliliter 03/05/2018 No longer Active cyanocobalamin (vit B-12) 1,000 mcg/mL injection solution RxNorm: 464322 1Milliliter 01/30/2018 No longer Active cyanocobalamin (vit B-12) 1,000 mcg/mL injection solution RxNorm: 881045 1Milliliter 01/01/2018 No longer Active cyanocobalamin (vit B-12) 1,000 mcg/mL injection solution RxNorm: 471660 1Milliliter 11/28/2017 No longer Active cyanocobalamin (vit B-12) 1,000 mcg/mL injection solution RxNorm: 538132 1Milliliter 10/24/2017 No longer Active cyanocobalamin (vit B-12) 1,000 mcg/mL injection solution RxNorm: 777584 1Milliliter 09/26/2017 No longer Active cyanocobalamin (vit B-12) 1,000 mcg/mL injection solution RxNorm: 829370 1Milliliter 08/10/2017 No longer Active cyanocobalamin (vit B-12) 1,000 mcg/mL injection solution RxNorm: 762756 1Milliliter 07/18/2017 No longer Active cyanocobalamin (vit B-12) 1,000 mcg/mL injection solution RxNorm: 057522 1Milliliter 05/16/2017 No longer Active cyanocobalamin (vit B-12) 1,000 mcg/mL injection solution RxNorm: 496101 1Milliliter 03/14/2017 No longer Active Kenalog 40 mg/mL suspension for injection RxNorm: 1776923 1Milliliter 01/12/2017 No longer Active cyanocobalamin (vit B-12) 1,000 mcg/mL injection solution RxNorm: 429660 1Milliliter 01/12/2017 No longer Active ceftriaxone 500 mg solution for injection RxNorm: 6889036 1Milliliter 01/12/2017 No longer Active cyanocobalamin (vit B-12) 1,000 mcg/mL injection solution RxNorm: 574393 1Milliliter 10/27/2016 No longer Active cyanocobalamin (vit B-12) 1,000 mcg/mL injection solution RxNorm: 392827 Milliliter 07/27/2016 No longer Active cyanocobalamin (vit B-12) 1,000 mcg/mL injection solution RxNorm: 922482 1Milliliter 04/26/2016 No longer Active Immunizations Vaccine [...] 32.9 pg 11/28/2017 Cbc With Differential Ord2 [place]% 12.6 % 11/28/2017 Cbc With Differential Ord2 [...] 2.87 K/ul 11/28/2017 Cbc With Differential Ord2 [place] ABS# 1.1 K/ul 11/28/2017 Cbc With Differential Ord2 Eos ABS# 0.3 K/ul 11/28/2017 Cbc With Differential Ord2 Baso ABS# 0.0 K/ul 11/28/2017 B12 Vmv578 B12 >1500.00 pg/ml 11/28/2017 Comp Metabolic Zqe783 NA 139 mEq/L 11/28/2017 Comp Metabolic Gme813 K 5.2 mEq/L 11/28/2017 Comp Metabolic Xpf546 CL 106 mEq/L 11/28/2017 Comp Metabolic Nsr282 CO2 28.0 mEq/L 11/28/2017 Comp Metabolic Oil438 ANION GAP 10 11/28/2017 Comp Metabolic Btn872 GLUCOSE 89 mg/dL 11/28/2017 Comp Metabolic Cts586 Creat 1.1 mg/dL 11/28/2017 Comp Metabolic Fej193 eGFR 66 ml/min/1.73m2 11/28/2017 Comp Metabolic Yje654 BUN 18 mg/dL 11/28/2017 Comp Metabolic Wwg962 B/C Ratio 16.1 Ratio 11/28/2017 Comp Metabolic Pzg538 CALCIUM 9.2 mg/dL 11/28/2017 Comp Metabolic Xdj360 ALK PHOS 89 U/L 11/28/2017 Comp Metabolic Qhi239 AST(SGOT) 22 U/L 11/28/2017 Comp Metabolic Xkq972 ALT(SGPT) 15 U/L 11/28/2017 Comp Metabolic Rur118 BILI T 0.6 mg/dL 11/28/2017 Comp Metabolic Mos944 ALBUMIN 3.9 g/dL 11/28/2017 Comp Metabolic Euh635 TPRO 6.5 g/dL 11/28/2017 Comp Metabolic Zsa456 GLOB 2.6 g/dL 11/28/2017 Comp Metabolic Kef878 A/G Ratio 1.5 Ratio 11/28/2017 Comp Metabolic Ndr848 Osmo 279 mOsmo 11/28/2017 Ferritin Ord22 FERRITIN [...] 33.7 % 07/18/2017 Cbc With Differential Ord2 [place]% 12.3 % 07/18/2017 Cbc With Differential Ord2 [...] 2.90 K/ul 07/18/2017 Cbc With Differential Ord2 [place] ABS# 1.1 K/ul 07/18/2017 Cbc With Differential Ord2 Eos ABS# 0.2 K/ul 07/18/2017 Cbc With Differential Ord2 Baso ABS# 0.0 K/ul 07/18/2017 Comp Metabolic Hta858 NA 140 mEq/L 07/18/2017 Comp Metabolic Don578 K 4.6 mEq/L 07/18/2017 Comp Metabolic Lta568 CL 105 mEq/L 07/18/2017 Comp Metabolic Rgm391 CO2 29.0 mEq/L 07/18/2017 Comp Metabolic Maj061 ANION GAP 11 07/18/2017 Comp Metabolic Gyy218 GLUCOSE 96 mg/dL 07/18/2017 Comp Metabolic Rdq617 Creat 1.0 mg/dL 07/18/2017 Comp Metabolic Mzx409 eGFR 73 ml/min/1.73m2 07/18/2017 Comp Metabolic Rpf518 BUN 12 mg/dL 07/18/2017 Comp Metabolic Ngq806 B/C Ratio 11.7 Ratio 07/18/2017 Comp Metabolic Btq349 CALCIUM 9.2 mg/dL 07/18/2017 Comp Metabolic Nvl954 ALK PHOS 74 U/L 07/18/2017 Comp Metabolic Kqg736 AST(SGOT) 29 U/L 07/18/2017 Comp Metabolic Oec707 ALT(SGPT) 16 U/L 07/18/2017 Comp Metabolic Enz480 BILI T 0.7 mg/dL 07/18/2017 Comp Metabolic Rsa062 ALBUMIN 3.7 g/dL 07/18/2017 Comp Metabolic Zyr231 TPRO 6.5 g/dL 07/18/2017 Comp Metabolic Hua984 GLOB 2.8 g/dL 07/18/2017 Comp Metabolic Cya788 A/G Ratio 1.3 Ratio 07/18/2017 Comp Metabolic Zgq050 Osmo 279 mOsmo 07/18/2017 Iron Ord72 Iron 114 ug/dl 07/18/2017 B12 Mfr406 B12 233.00 pg/ml 07/18/2017 Tsh Ord6 hTSH [...] 33.3 pg 12/13/2016 Cbc With Differential Ord2 [place]% 17.9 % 12/13/2016 Cbc With Differential Ord2 [...] 2.71 K/ul 12/13/2016 Cbc With Differential Ord2 [place] ABS# 1.7 K/ul 12/13/2016 Cbc With Differential Ord2 Eos ABS# 0.3 K/ul 12/13/2016 Cbc With Differential Ord2 Baso ABS# 0.0 K/ul 12/13/2016 Comp Metabolic Zun913 NA 136 mEq/L 12/13/2016 Comp Metabolic Llo624 K 4.7 mEq/L 12/13/2016 Comp Metabolic Uua998 CL 102 mEq/L 12/13/2016 Comp Metabolic Ult624 CO2 26.0 mEq/L 12/13/2016 Comp Metabolic Hkt443 ANION GAP 13 12/13/2016 Comp Metabolic Tdw606 GLUCOSE 87 mg/dL 12/13/2016 Comp Metabolic Vkx105 Creat 0.9 mg/dL 12/13/2016 Comp Metabolic Bhq756 eGFR 83 ml/min/1.73m2 12/13/2016 Comp Metabolic Mbs524 BUN 17 mg/dL 12/13/2016 Comp Metabolic Mad712 B/C Ratio 18.3 Ratio 12/13/2016 Comp Metabolic Cci169 CALCIUM 9.1 mg/dL 12/13/2016 Comp Metabolic Csl637 ALK PHOS 90 U/L 12/13/2016 Comp Metabolic Ffw223 AST(SGOT) 22 U/L 12/13/2016 Comp Metabolic Uou310 ALT(SGPT) 15 U/L 12/13/2016 Comp Metabolic Nfe954 BILI T 0.8 mg/dL 12/13/2016 Comp Metabolic Bzt853 ALBUMIN 3.6 g/dL 12/13/2016 Comp Metabolic Vac622 TPRO 6.4 g/dL 12/13/2016 Comp Metabolic Xnf617 GLOB 2.9 g/dL 12/13/2016 Comp Metabolic Fbc338 A/G Ratio 1.2 Ratio 12/13/2016 Comp Metabolic Cem929 Osmo 273 mOsmo 12/13/2016 Lipid Ord30 CHOL 182 mg/dL 12/13/2016 Lipid Ord30 HDL 64.0 mg/dl 12/13/2016 Lipid Ord30 TRIG 62 mg/dL 12/13/2016 Lipid Ord30 LDL 106 mg/dL 12/13/2016 Lipid Ord30 C/HDL 2.8 Ratio 12/13/2016 Ferritin Ord22 FERRITIN 434.7 ng/mL 12/13/2016 B12 Jiw232 B12 247.00 pg/ml 12/13/2016 Tibc Ord40 Iron [...] 33.7 pg 04/27/2016 Cbc With Differential Ord2 [place]% 13.7 % 04/27/2016 Cbc With Differential Ord2 [...] 3.22 K/ul 04/27/2016 Cbc With Differential Ord2 [place] ABS# 1.2 K/ul 04/27/2016 Cbc With Differential Ord2 Eos ABS# 0.3 K/ul 04/27/2016 Cbc With Differential Ord2 Baso ABS# 0.0 K/ul 04/27/2016 Comp Metabolic Reg818 NA 138 mEq/L 04/27/2016 Comp Metabolic Zkc611 K 4.3 mEq/L 04/27/2016 Comp Metabolic Iud691 CL 104 mEq/L 04/27/2016 Comp Metabolic Laz013 CO2 30.0 mEq/L 04/27/2016 Comp Metabolic Yml294 ANION GAP 8 04/27/2016 Comp Metabolic Yqn380 GLUCOSE 87 mg/dL 04/27/2016 Comp Metabolic Tun415 Creat 0.9 mg/dL 04/27/2016 Comp Metabolic Hoa960 eGFR 82 ml/min/1.73m2 04/27/2016 Comp Metabolic Xzm201 BUN 13 mg/dL 04/27/2016 Comp Metabolic Siy671 B/C Ratio 13.8 Ratio 04/27/2016 Comp Metabolic Ehq449 CALCIUM 9.0 mg/dL 04/27/2016 Comp Metabolic Oqg915 ALK PHOS 62 U/L 04/27/2016 Comp Metabolic Hsa533 AST(SGOT) 24 U/L 04/27/2016 Comp Metabolic Uge184 ALT(SGPT) 15 U/L 04/27/2016 Comp Metabolic Xhj918 BILI T 0.7 mg/dL 04/27/2016 Comp Metabolic Fnt748 ALBUMIN 3.6 g/dL 04/27/2016 Comp Metabolic Zcn271 TPRO 6.1 g/dL 04/27/2016 Comp Metabolic Vsp516 GLOB 2.5 g/dL 04/27/2016 Comp Metabolic Lys869 A/G Ratio 1.4 Ratio 04/27/2016 Comp Metabolic Dzm137 Osmo 275 mOsmo 04/27/2016 B12 Ibf088 B12 >1500.00 pg/ml 04/27/2016 Iron Ord72 Iron [...] Procedure Codes Date THER/PROPH/DIAG INJ SC/IM CPT-4: 19666 08/30/2018 VITAMIN B12 INJECTION CPT- 4: J3420 08/30/2018 VITAMIN B12 INJECTION CPT- 4: J3420 07/31/2018 THER/PROPH/DIAG INJ SC/IM CPT-4: 48586 07/31/2018 THER/PROPH/DIAG INJ SC/IM CPT-4: 87822 07/02/2018 VITAMIN B12 INJECTION CPT- 4: J3420 07/02/2018 THER/PROPH/DIAG INJ SC/IM CPT-4: 59630 05/31/2018 ADMIN INFLUENZA VIRUS VAC CPT-4: G0008 05/31/2018 VITAMIN B12 INJECTION CPT- 4: J3420 05/31/2018 FLU VACC PRSV FREE INC ANTIG Formatting Model/CDA Sections, Assigned to/Mary Grace Rosado CPT-4: 99499Xnrvcmb 05/31/2018 VITAMIN B12 INJECTION CPT- 4: J3420 05/03/2018 THER/PROPH/DIAG INJ SC/IM CPT-4: 50437 05/03/2018 THER/PROPH/DIAG INJ SC/IM CPT-4: 28832 04/04/2018 VITAMIN B12 INJECTION CPT- 4: J3420 04/04/2018 THER/PROPH/DIAG INJ SC/IM CPT-4: 61068 03/05/2018 VITAMIN B12 INJECTION CPT- 4: J3420 03/05/2018 VITAMIN B12 INJECTION CPT- 4: J3420 01/30/2018 THER/PROPH/DIAG INJ SC/IM CPT-4: 66554 01/30/2018 THER/PROPH/DIAG INJ SC/IM CPT-4: 72478 01/01/2018 VITAMIN B12 INJECTION CPT- 4: J3420 01/01/2018 PPPS, SUBSEQ VISIT CPT- 4: G0439 12/18/2017 THER/PROPH/DIAG INJ SC/IM CPT-4: 31607 11/28/2017 VITAMIN B12 INJECTION CPT- 4: J3420 11/28/2017 THER/PROPH/DIAG INJ SC/IM CPT-4: 31547 10/24/2017 VITAMIN B12 INJECTION CPT- 4: J3420 10/24/2017 THER/PROPH/DIAG INJ SC/IM CPT-4: 72854 09/26/2017 VITAMIN B12 INJECTION CPT- 4: J3420 09/26/2017 THER/PROPH/DIAG INJ SC/IM CPT-4: 12985 08/10/2017 VITAMIN B12 INJECTION CPT- 4: J3420 08/10/2017 THER/PROPH/DIAG INJ SC/IM CPT-4: 39176 07/18/2017 VITAMIN B12 INJECTION CPT- 4: J3420 07/18/2017 THER/PROPH/DIAG INJ SC/IM CPT-4: 40810 05/16/2017 VITAMIN B12 INJECTION CPT- 4: J3420 05/16/2017 THER/PROPH/DIAG INJ SC/IM CPT-4: 65013 03/14/2017 VITAMIN B12 INJECTION CPT- 4: J3420 03/14/2017 TRIAMCINOLONE ACET INJ NOS CPT-4: J3301 01/12/2017 ROCEPHIN, PER 250 MG CPT- 4: J0696 01/12/2017 VITAMIN B12 INJECTION CPT- 4: J3420 01/12/2017 THER/PROPH/DIAG INJ SC/IM CPT-4: 54295 01/12/2017 PPPS, SUBSEQ VISIT CPT- 4: G0439 12/12/2016 PNEUMOCOCCAL VACC [address]: 49008858 CPT-4: 49842 12/12/2016 ADMIN PNEUMOCOCCAL VACCINE SNOMED CT: 86494038 CPT-4: G0009 12/12/2016 THER/PROPH/DIAG INJ SC/IM CPT-4: 94352 10/27/2016 VITAMIN B12 INJECTION CPT- 4: J3420 10/27/2016 THER/PROPH/DIAG INJ SC/IM CPT-4: 76508 07/27/2016 VITAMIN B12 INJECTION CPT- 4: J3420 07/27/2016 THER/PROPH/DIAG INJ SC/IM CPT-4: 91203 04/26/2016 VITAMIN B12 INJECTION CPT- 4: J3420 04/26/2016 Vital Signs Date Vital 08/15/2018 Blood Pressure 1: 144/66 Code: 8480-6 BMI: 25.1 Code: 11486-8 Heart Rate 1: 75 bpm Height: 5'7" SpO2: 98% Weight: 160 lbs 05/23/2018 Blood Pressure 1: 158/64 Code: 8480-6 BMI: 24.7 Code: 39678-0 Heart Rate 1: 76 bpm Height: 5'7" SpO2: 96% Temperature: 36.7 (C) / 98.1 (F) Weight: 158 lbs 05/03/2018 Blood Pressure 1: 122/72 Code: 8480-6 BMI: 25.1 Code: 52748-4 Heart Rate 1: 74 bpm Height: 5'7" SpO2: 97% Weight: 160 lbs 01/31/2018 Blood Pressure 1: 137/77 Code: 8480-6 Blood Pressure 2: 138/68 Code: 8480-6 Heart Rate 1: 67 bpm SpO2: 98% 01/30/2018 Blood Pressure 1: 138/66 Code: 8480-6 BMI: 25.1 Code: 37605-2 Heart Rate 1: 76 bpm Height: 5'7" SpO2: 94% Weight: 160 lbs 12/18/2017 Blood Pressure 1: 152/88 Code: 8480-6 BMI: 25.8 Code: 99735-7 Heart Rate 1: 68 bpm Height: 5'7" SpO2: 96% Weight: 165 lbs 11/28/2017 Blood Pressure 1: 150/76 Code: 8480-6 BMI: 25.2 Code: 31525-0 Heart Rate 1: 78 bpm Height: 5'7" SpO2: 98% Weight: 161 lbs 10/10/2017 Blood Pressure 1: 156/76 Code: 8480-6 BMI: 24.7 Code: 55627-1 Heart Rate 1: 71 bpm Height: 5'7" SpO2: 98% Weight: 158 lbs 09/26/2017 Blood Pressure 1: 162/82 Code: 8480-6 BMI: 24.7 Code: 10061-5 Heart Rate 1: 69 bpm Height: 5'7" SpO2: 99% Weight: 158 lbs 08/16/2017 Blood Pressure 1: 154/82 Code: 8480-6 BMI: 24.1 Code: 14221-6 Heart Rate 1: 58 bpm Height: 5'7" SpO2: 96% Weight: 154 lbs 07/18/2017 Blood Pressure 1: 152/88 Code: 8480-6 BMI: 25.2 Code: 89656-0 Heart Rate 1: 72 bpm Height: 5'7" SpO2: 98% Weight: 161 lbs 05/16/2017 Blood Pressure 1: 136/78 Code: 8480-6 BMI: 24.8 Code: 44487-8 Heart Rate 1: 71 bpm Height: 5'7" SpO2: 96% Weight: 158 lbs 8 oz 03/14/2017 Blood Pressure 1: 142/74 Code: 8480-6 BMI: 23.8 Code: 22478-7 Heart Rate 1: 69 bpm Height: 5'7" SpO2: 94% Weight: 152 lbs 01/12/2017 Blood Pressure 1: 156/90 Code: 8480-6 BMI: 23.4 Code: 14992-8 Heart Rate 1: 90 bpm Height: 5'7" SpO2: 97% Temperature: 37.4 (C) / 99.3 (F) Weight: 149 lbs 8 oz 12/12/2016 Blood Pressure 1: 140/78 Code: 8480-6 BMI: 24.3 Code: 83798-0 Heart Rate 1: 73 bpm Height: 5'7" SpO2: 96% Waist Measure (cm): 90 cm Weight: 155 lbs 12/08/2016 Blood Pressure 1: 148/84 Code: 8480-6 BMI: 24.3 Code: 10624-8 Heart Rate 1: 80 bpm Height: 5'7" SpO2: 96% Weight: 155 lbs 11/03/2016 Blood Pressure 1: 156/84 Code: 8480-6 Blood Pressure 2: 155/94 Code: 8480-6 BMI: 24.3 Code: 26841-4 Heart Rate 1: 81 bpm Height: 5'7" SpO2: 98% Weight: 155 lbs 10/06/2016 Blood Pressure 1: 175/95 Code: 8480-6 Heart Rate 1: 77 bpm Respiratory Rate: 16 bpm SpO2: 98% Temperature: 36.4 (C) / 97.5 (F) Weight: 157 lbs 09/06/2016 Blood Pressure 1: 136/80 Code: 8480-6 BMI: 24.1 Code: 92332-7 Heart Rate 1: 82 bpm Height: 5'8" SpO2: 97% Weight: 156 lbs 08/23/2016 Blood Pressure 1: 160/80 Code: 8480-6 BMI: 24.4 Code: 99040-7 Heart Rate 1: 88 bpm Height: 5'8" SpO2: 95% Weight: 158 lbs 04/26/2016 Blood Pressure 1: 156/74 Code: 8480-6 BMI: 24.5 Code: 05926-3 Heart Rate 1: 70 bpm Height: 5'8" [...] data Encounters Encounter Performer Location Codes Date 79219 EST. PATIENT, LEVEL III Diagnosis: Essential (primary) hypertension[ICD10: I10] [facility] CPT-4: 98451 08/15/2018 [id number] EST. PATIENT, LEVEL III Diagnosis: Dysphagia, pharyngoesophageal phase[ICD10: R13.14] [facility] CPT-4: 47635 05/23/2018 ([id number]) [id number] EST. PATIENT, LEVEL IV Diagnosis: Essential (primary) hypertension[ICD10: I10] Diagnosis: Chronic pain syndrome[ICD10: G89.4] Diagnosis: 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 deficiency[ICD10: D51.0] Diagnosis: Other iron deficiency anemias[ICD10: D50.8] Diagnosis: Slow transit constipation[ICD10: K59.01] [facility] CPT-4: 88284 05/03/2018 ([id number]) Miscellaneous no charge Diagnosis: Essential (primary) hypertension[ICD10: I10] [facility] CPT-4: 05882 01/31/2018 ([id number]) 87222 EST. PATIENT, LEVEL IV Diagnosis: Essential (primary) hypertension[ICD10: I10] Diagnosis: Chronic pain syndrome[ICD10: G89.4] Andree Paris MD, [facility] CPT- 4: 29851 01/30/2018 ([id number]) 00076 EST. PATIENT, LEVEL IV Diagnosis: Essential (primary) hypertension[ICD10: I10] Diagnosis: Chronic pain syndrome[ICD10: G89.4] Diagnosis: 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 deficiency[ICD10: D51.0] Diagnosis: Iron deficiency anemia, unspecified[ICD10: D50.9] Ana Paris MD, [facility] CPT-4: 40932 11/28/2017 [id number] EST. PATIENT, LEVEL IV Diagnosis: Essential (primary) hypertension[ICD10: I10] Diagnosis: Slow transit constipation[ICD10: K59.01] Diagnosis: Chronic pain syndrome[ICD10: G89.4] Teresa Paris MD, [facility] CPT- 4: 15575 10/10/2017 [id number] EST. PATIENT, LEVEL IV Diagnosis: 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 deficiency[ICD10: D51.0] Diagnosis: Essential (primary) hypertension[ICD10: I10] Diagnosis: Chronic pain syndrome[ICD10: G89.4] Teresa Paris MD, [facility] CPT- 4: 42814 09/26/2017 [id number] EST. PATIENT, LEVEL III Diagnosis: Dysphagia, pharyngoesophageal phase[ICD10: R13.14] Teresa Paris MD, [facility] CPT-4: 36204 08/16/2017 ([id number]) 35783 EST. PATIENT, LEVEL IV Diagnosis: Essential (primary) hypertension[ICD10: I10] Diagnosis: Chronic pain syndrome[ICD10: G89.4] Diagnosis: 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 deficiency[ICD10: D51.0] Diagnosis: Iron deficiency anemia, unspecified[ICD10: D50.9] Diagnosis: Dysphagia, pharyngoesophageal phase[ICD10: R13.14] Ana Paris MD, [facility] CPT-4: 22040 07/18/2017 ([id number]) 66352 EST. PATIENT, LEVEL III Diagnosis: Essential (primary) hypertension[ICD10: I10] Diagnosis: Chronic pain syndrome[ICD10: G89.4] Diagnosis: 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 deficiency[ICD10: D51.0] Ana Paris MD, [facility] CPT-4: 42700 05/16/2017 ([id number]) 83119 EST. PATIENT, LEVEL III Diagnosis: Essential (primary) hypertension[ICD10: I10] Diagnosis: Chronic pain syndrome[ICD10: G89.4] Diagnosis: 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 deficiency[ICD10: D51.0] Ana Paris MD, [facility] CPT-4: 54668 03/14/2017 ([id number]) 13097 EST. PATIENT, LEVEL III Diagnosis: Cough[ICD10: R05] Diagnosis: Acute bronchitis, unspecified[ICD10: J20.9] Diagnosis: Chronic pain syndrome[ICD10: G89.4] Diagnosis: 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 deficiency[ICD10: D51.0] Ana Paris MD, [facility] CPT-4: 42947 01/12/2017 ([id number]) 71477 EST. PATIENT, LEVEL III Diagnosis: Essential (primary) hypertension[ICD10: I10] Diagnosis: Chronic pain syndrome[ICD10: G89.4] Ana Paris MD, [facility] CPT-4: 77366 12/08/2016 ([id number]) 51578 EST. PATIENT, LEVEL III Diagnosis: Essential (primary) hypertension[ICD10: I10] Ana Paris MD, [facility] CPT-4: 28873 11/03/2016 ([id number]) 09660 EST. PATIENT, LEVEL III Diagnosis: Essential (primary) hypertension[ICD10: I10] Ana Paris MD, [facility] CPT-4: 38746 10/06/2016 ([id number]) 15056 EST. PATIENT, LEVEL III Diagnosis: Essential (primary) hypertension[ICD10: I10] Ana Paris MD, [facility] CPT-4: 95186 09/06/2016 ([id number]) 33333 EST. PATIENT, LEVEL III Diagnosis: Essential (primary) hypertension[ICD10: I10] [facility] CPT-4: 92266 08/23/2016 ([id number]) OFFICE VISIT, NEW - LEVEL 4 Diagnosis: Noninfective gastroenteritis and colitis, unspecified[ICD10: K52.9] Diagnosis: 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 deficiency[ICD10: D51.0] Diagnosis: Iron deficiency anemia, unspecified[ICD10: D50.9] Diagnosis: Chalazion left upper eyelid[ICD10: H00.14] Diagnosis: Elevated blood-pressure reading, without diagnosis of hypertension[ICD10: R03.0] [facility] CPT-4: 94792 04/26/2016 Plan of Care Planned Activity Notes Codes Status Date Patient Education: Patient Medication Summary Completed 08/30/2018 [...] his amlodipine 08/15/2018 Appointment: Andree Paris WPtel: [facility] ([facility] min) Moderate 08/15/2018 Patient Education: [...] plan. 05/23/2018 [phone] ([facility] min) Moderate 05/23/2018 Patient Education: Patient [...] management. 05/03/2018 Appointment: Andree Paris WPtel: [phone] [facility] (15 min) Moderate 05/03/2018 Patient Education: [...] over-medication. 01/30/2018 [facility] [phone] [facility] ([facility] min) Moderate 01/30/2018 Patient Education: [...] acute concerns. 12/18/2017 Appointment: Ana Pedraza WPtel: [address] [place] [phone] [facility] - Annual Wellness Visit 12/18/2017 Patient [...] labs 11/28/2017 App[facility]ment: [facility] [phone] [phone] (30 min) Complex 11/28/2017 Patient [...] regimen. 10/10/2017 App[facility]ment: [phone] [facility] [place] (30 min) Complex 10/10/2017 Patient Education: [...] over-medication. 09/26/2017 Appointment: Teresa Bardales WPtel: [phone] [facility] (30 min) Complex 09/26/2017 Patient Education: Patient Medication Summary Completed 09/26/2017 Appointment: Teresa Bardales WPtel: [phone] [facility] (30 min) Complex 09/19/2017 Referral: External, Ordering Provider Referral Appointment Confirmed 08/17/2017 Visit Plan: Dysphagia - worsening since yesterday - will refer to Dr. Harper for possible EGD - pt is to notify clinic if symptoms do not improve, if they worsen, or with any acute changes, questions, or concerns. 08/16/2017 App[facility]ment: [facility] [phone] [facility] [place] (30 min) Complex 08/16/2017 Patient Education: Patient Medication Summary Completed 08/16/2017 Care Plan: Referral Order SNOMED-CT : [id number] Pending 08/16/2017 Appointment: Injection 08/10/2017 Patient Education: [...] today first 07/18/2017 App[facility]ment: [facility] [phone] [phone] [place] (30 min) Complex 07/18/2017 Patient Education: [...] of over-medication. 05/16/2017 Appointment: Ana Pedraza WPtel: [address] [place], [place] [phone] [place] [address] (30 min) Complex 05/16/2017 Patient Education: Patient [...] of over-medication. 03/14/2017 Appointment: Ana Pedraza WPtel: [address] [place], [place] [phone] [place] [address] (30 min) Complex 03/14/2017 Patient Education: Patient [...] of over-medication. 01/12/2017 Appointment: Ana Pedraza WPtel: Formerly named [phone] (30 min) Complex 01/12/2017 Patient Education: Patient [...] surrogate. 12/12/2016 App[facility]ment: [facility] [phone] [phone] [facility] - Annual Wellness Visit 12/12/2016 Patient [...] over-medication. 12/08/2016 Appointment: Ana Pedraza WPtel: [phone] [phone] (30 min) Complex 12/08/2016 Patient Education: Patient [...] acute concerns. 11/03/2016 Appointment: Ana Pedraza WPtel: [phone] [phone] (30 min) Complex 11/03/2016 Patient Education: Patient [...] concerns. 10/06/2016 Appointment: Ana Pedraza WPtel: [phone] [phone] (30 min) Complex 10/06/2016 Patient Education: Patient [...] concerns. 09/06/2016 Appointment: Ana Pedraza WPtel: [phone] [phone] (30 min) Complex 09/06/2016 Patient Education: Patient [...] concerns. 08/23/2016 Appointment: Ana Pedraza WPtel: [phone] [phone] (15 min) Moderate 08/23/2016 Patient Education: Patient [...] for gentamycin. 04/26/2016 Appointment: Andree Paris WPtel: Formerly named [facility] New Patient 04/26/2016 Patient Education: Patient [...]
--- OUTSIDE RECORDS SUMMARY | 2019-02-13 09:50 | XMS REPORT | CCD ---
Author Author Andree Paris Organization Andree Paris MD, [facility] Address [address] [place] [address] Phone Care Team Providers Care [place] Name Role Phone PP Unavailable CCM Unavailable Summary Purpose Interface Exchange Insurance Providers Payer name Policy type / Coverage type Covered republican ID Effective Begin Date Effective End Date WPS Medicare Part B Medicare Part B [id number] Unknown Unknown FOR LIFE WPS Medicare Part B [id number] Unknown Unknown Family history Father Diagnosis Age At Onset No Known Diseases N/A Mother Diagnosis Age At Onset No Known Diseases N/A Social History Social History Element Codes Description Effective Dates Marital status Unknown 04/26/2016 Number of children Unknown 3 04/26/2016 Employment Unknown Retired 04/26/[address]: 6293913 Former smoker Quit 1969 04/26/[address]: 409057 Currently drinks alcohol 04/26/2016 Has the patient [...] (vit B-12) 1,000 mcg/mL injection solution RxNorm: 756055 Milliliter(s) Inj 08/30/2018 08/30/2018 Inactive morphine ER 30 mg tablet,extended release RxNorm: 448497 1 Tablet(s) PO daily 07/31/2018 08/29/2018 Inactive cyanocobalamin (vit B-12) 1,000 mcg/mL injection solution RxNorm: 839912 Milliliter(s) Inj 07/31/2018 07/31/2018 Inactive amlodipine 5 mg tablet RxNorm: 243898 1 Tablet(s) PO QPM 07/11/2018 01/06/2019 Active cyanocobalamin (vit B-12) 1,000 mcg/mL injection solution RxNorm: 520017 1 Milliliter(s) Inj 07/02/2018 07/02/2018 Inactive morphine ER 30 mg tablet,extended release RxNorm: 914672 1 Tablet(s) PO daily 07/02/2018 07/30/2018 Inactive morphine ER 30 mg tablet,extended release RxNorm: 571107 1 Tablet(s) PO daily 05/31/2018 06/29/2018 Inactive cyanocobalamin (vit B-12) 1,000 mcg/mL injection solution RxNorm: 634153 Milliliter(s) Inj 05/31/2018 05/31/2018 Inactive Protonix 40 mg tablet,delayed release RxNorm: 964434 1 Tablet(s) PO daily 05/23/2018 06/21/2018 Inactive Carafate 1 gram tablet RxNorm: 695969 1 Tablet(s) PO AC & HS as needed 05/23/2018 06/21/2018 Inactive cyanocobalamin (vit B-12) 1,000 mcg/mL injection solution RxNorm: 627914 1 Milliliter(s) Inj 05/03/2018 05/03/2018 Inactive morphine ER 30 mg tablet,extended release RxNorm: 000812 1 Tablet(s) PO daily 04/04/2018 05/03/2018 Inactive cyanocobalamin (vit B-12) 1,000 mcg/mL injection solution RxNorm: 116836 1 Milliliter(s) Inj 04/04/2018 04/04/2018 Inactive cyanocobalamin (vit B-12) 1,000 mcg/mL injection solution RxNorm: 035406 1 Milliliter(s) Inj 03/05/2018 03/05/2018 Inactive morphine ER 30 mg tablet,extended release RxNorm: 471581 1 Tablet(s) PO daily 03/05/2018 04/03/2018 Inactive cyanocobalamin (vit B-12) 1,000 mcg/mL injection solution RxNorm: 731344 1 Milliliter(s) Inj 01/30/2018 01/30/2018 Inactive cyanocobalamin (vit B-12) 1,000 mcg/mL injection solution RxNorm: 725269 1 Milliliter(s) Inj 01/01/2018 01/01/2018 Inactive morphine ER 30 mg tablet,extended release RxNorm: 028775 1 Tablet(s) PO daily 01/01/2018 01/30/2018 Inactive lisinopril 20 mg tablet RxNorm: 744915 1 Tablet(s) PO BID 12/18/2017 12/12/2018 Active amlodipine 5 mg tablet RxNorm: 893211 1 Tablet(s) PO QPM 12/18/2017 06/15/2018 Inactive cyanocobalamin (vit B-12) 1,000 mcg/mL injection solution RxNorm: 447646 1 Milliliter(s) Inj 11/28/2017 11/28/2017 Inactive morphine ER 30 mg tablet,extended release RxNorm: 643368 1 Tablet(s) PO daily 11/28/2017 12/27/2017 Inactive morphine ER 30 mg tablet,extended release RxNorm: 343691 1 Tablet(s) PO daily 11/09/2017 11/27/2017 Inactive cyanocobalamin (vit B-12) 1,000 mcg/mL injection solution RxNorm: 315156 1 Milliliter(s) Inj 10/24/2017 10/24/2017 Inactive morphine ER 30 mg tablet,extended release RxNorm: 332266 1 Tablet(s) PO daily 10/10/2017 11/08/2017 Inactive hydrochlorothiazide 25 mg tablet RxNorm: 602331 1 Tablet(s) PO daily 10/10/2017 11/08/2017 Inactive cyanocobalamin (vit B-12) 1,000 mcg/mL injection solution RxNorm: 575006 1 Milliliter(s) Inj 09/26/2017 09/26/2017 Inactive hydrochlorothiazide 12.5 mg tablet RxNorm: 162126 1 Tablet(s) PO daily 09/26/2017 10/25/2017 Inactive morphine ER 30 mg tablet,extended release RxNorm: 892570 1 Tablet(s) PO daily 09/12/2017 10/09/2017 Inactive cyanocobalamin (vit B-12) 1,000 mcg/mL injection solution RxNorm: 254431 1 Milliliter(s) Inj 08/10/2017 08/10/2017 Inactive morphine ER 30 mg tablet,extended release RxNorm: 162521 1 Tablet(s) PO daily 08/10/2017 09/08/2017 Inactive Vitamin B-12 1,000 mcg/mL injection solution RxNorm: 566092 1 Milliliter(s) Inj month 07/21/2017 No Stop Date Active B12 INJECTIONS MONTHLY cyanocobalamin (vit B-12) 1,000 mcg/mL injection solution RxNorm: 900639 1 Milliliter(s) Inj 07/18/2017 07/18/2017 Inactive morphine ER 30 mg tablet,extended release RxNorm: 182233 1 Tablet(s) PO daily 07/13/2017 08/09/2017 Inactive morphine ER 30 mg tablet,extended release RxNorm: 458747 1 Tablet(s) PO daily 06/15/2017 07/12/2017 Inactive cyanocobalamin (vit B-12) 1,000 mcg/mL injection solution RxNorm: 934892 1 Milliliter(s) Inj 05/16/2017 05/16/2017 Inactive morphine ER 30 mg tablet,extended release RxNorm: 207848 1 Tablet(s) PO daily 04/13/2017 05/12/2017 Inactive cyanocobalamin (vit B-12) 1,000 mcg/mL injection solution RxNorm: 910146 1 Milliliter(s) Inj 03/14/2017 03/14/2017 Inactive morphine ER 30 mg tablet,extended release RxNorm: 424926 1 Tablet(s) PO daily 03/14/2017 04/12/2017 Inactive morphine ER 30 mg tablet,extended release RxNorm: 911746 1 Tablet(s) PO daily 02/13/2017 03/13/2017 Inactive Kenalog 40 mg/mL suspension for injection RxNorm: 2295488 1 Milliliter(s) Inj 01/12/2017 01/12/2017 Inactive cyanocobalamin (vit B-12) 1,000 mcg/mL injection solution RxNorm: 073864 1 Milliliter(s) Inj 01/12/2017 01/12/2017 Inactive Zithromax Z-Chcio 250 mg tablet RxNorm: 087719 1 Tablet(s) PO UD 01/12/2017 01/16/2017 Inactive ceftriaxone 500 mg solution for injection RxNorm: 5759632 1 Milliliter(s) Inj 01/12/2017 01/12/2017 Inactive Vitamin B-12 1,000 mcg/mL injection solution RxNorm: 679008 1 Milliliter(s) Inj EVERY OTHER MONTH 01/04/2017 07/20/2017 Inactive lisinopril 20 mg tablet RxNorm: 797551 1 Tablet(s) PO BID 01/02/2017 12/17/2017 Inactive lisinopril 20 mg tablet RxNorm: 558938 1 Tablet(s) PO BID 12/12/2016 01/01/2017 Inactive morphine ER 30 mg tablet,extended release RxNorm: 755735 1 Tablet(s) PO daily 12/08/2016 01/06/2017 Inactive lisinopril 20 mg tablet RxNorm: 948509 1 Tablet(s) PO BID 11/03/2016 12/11/2016 Inactive morphine ER 30 mg tablet,extended release RxNorm: 315783 1 Tablet(s) PO daily 11/03/2016 12/02/2016 Inactive cyanocobalamin (vit B-12) 1,000 mcg/mL injection solution RxNorm: 745819 1 Milliliter(s) Inj 10/27/2016 10/27/2016 Inactive lisinopril 10 mg tablet RxNorm: 390590 1 Tablet(s) PO BID 10/06/2016 11/02/2016 Inactive lisinopril 10 mg tablet RxNorm: 644009 1 Tablet(s) PO daily 09/06/2016 10/05/2016 Inactive morphine ER 30 mg tablet,extended release RxNorm: 104164 1 Tablet(s) PO daily 08/18/2016 09/16/2016 Inactive cyanocobalamin (vit B-12) 1,000 mcg/mL injection solution RxNorm: 795523 Milliliter(s) Inj 07/27/2016 07/27/2016 Inactive morphine ER 30 mg tablet,extended release RxNorm: 322312 1 Tablet(s) PO daily 07/21/2016 08/17/2016 Inactive morphine ER 30 mg tablet,extended release RxNorm: 544294 1 Tablet(s) PO daily 06/20/2016 07/19/2016 Inactive morphine ER 30 mg tablet,extended release RxNorm: 120324 1 Tablet(s) PO daily 05/20/2016 06/19/2016 Inactive cyanocobalamin (vit B-12) 1,000 mcg/mL injection solution RxNorm: 834347 1 Milliliter(s) Inj 04/26/2016 04/26/2016 Inactive gentamicin 0.3 % eye drops RxNorm: 724087 2 Drop(s) OPH Q4H 04/26/2016 05/02/2016 Inactive Vitamin B-12 1,000 mcg/mL injection solution RxNorm: 013746 1 Milliliter(s) Inj EVERY 3 MONTHS No Start Date 01/03/2017 Inactive Claritin 10 mg tablet RxNorm: 080249 1 Tablet(s) PO daily No Start Date 07/17/2017 Inactive Venofer intravenous RxNorm: 81253 intravenous No Start Date 08/14/2018 Inactive morphine ER 30 mg tablet,extended release RxNorm: 408530 1 Tablet(s) PO daily No Start Date 04/25/2016 Inactive Medication Administered Medication Codes Instructions Start Date Status cyanocobalamin (vit B-12) 1,000 mcg/mL injection solution RxNorm: 233782 Milliliter 08/30/2018 Active cyanocobalamin (vit B-12) 1,000 mcg/mL injection solution RxNorm: 815887 Milliliter 07/31/2018 No longer Active cyanocobalamin (vit B-12) 1,000 mcg/mL injection solution RxNorm: 590455 1Milliliter 07/02/2018 No longer Active cyanocobalamin (vit B-12) 1,000 mcg/mL injection solution RxNorm: 238277 Milliliter 05/31/2018 No longer Active cyanocobalamin (vit B-12) 1,000 mcg/mL injection solution RxNorm: 803395 1Milliliter 05/03/2018 No longer Active cyanocobalamin (vit B-12) 1,000 mcg/mL injection solution RxNorm: 135681 1Milliliter 04/04/2018 No longer Active cyanocobalamin (vit B-12) 1,000 mcg/mL injection solution RxNorm: 326551 1Milliliter 03/05/2018 No longer Active cyanocobalamin (vit B-12) 1,000 mcg/mL injection solution RxNorm: 403626 1Milliliter 01/30/2018 No longer Active cyanocobalamin (vit B-12) 1,000 mcg/mL injection solution RxNorm: 472296 1Milliliter 01/01/2018 No longer Active cyanocobalamin (vit B-12) 1,000 mcg/mL injection solution RxNorm: 547654 1Milliliter 11/28/2017 No longer Active cyanocobalamin (vit B-12) 1,000 mcg/mL injection solution RxNorm: 390279 1Milliliter 10/24/2017 No longer Active cyanocobalamin (vit B-12) 1,000 mcg/mL injection solution RxNorm: 234570 1Milliliter 09/26/2017 No longer Active cyanocobalamin (vit B-12) 1,000 mcg/mL injection solution RxNorm: 807180 1Milliliter 08/10/2017 No longer Active cyanocobalamin (vit B-12) 1,000 mcg/mL injection solution RxNorm: 813990 1Milliliter 07/18/2017 No longer Active cyanocobalamin (vit B-12) 1,000 mcg/mL injection solution RxNorm: 098979 1Milliliter 05/16/2017 No longer Active cyanocobalamin (vit B-12) 1,000 mcg/mL injection solution RxNorm: 984687 1Milliliter 03/14/2017 No longer Active Kenalog 40 mg/mL suspension for injection RxNorm: 5244804 1Milliliter 01/12/2017 No longer Active cyanocobalamin (vit B-12) 1,000 mcg/mL injection solution RxNorm: 433342 1Milliliter 01/12/2017 No longer Active ceftriaxone 500 mg solution for injection RxNorm: 2094107 1Milliliter 01/12/2017 No longer Active cyanocobalamin (vit B-12) 1,000 mcg/mL injection solution RxNorm: 512665 1Milliliter 10/27/2016 No longer Active cyanocobalamin (vit B-12) 1,000 mcg/mL injection solution RxNorm: 414035 Milliliter 07/27/2016 No longer Active cyanocobalamin (vit B-12) 1,000 mcg/mL injection solution RxNorm: 123527 1Milliliter 04/26/2016 No longer Active Immunizations Vaccine [...] 32.9 pg 11/28/2017 Cbc With Differential Ord2 Ford% 12.6 % 11/28/2017 Cbc With Differential Ord2 [...] 2.87 K/ul 11/28/2017 Cbc With Differential Ord2 Ford ABS# 1.1 K/ul 11/28/2017 Cbc With Differential Ord2 Eos ABS# 0.3 K/ul 11/28/2017 Cbc With Differential Ord2 Baso ABS# 0.0 K/ul 11/28/2017 B12 Pso282 B12 >1500.00 pg/ml 11/28/2017 Comp Metabolic Znd899 NA 139 mEq/L 11/28/2017 Comp Metabolic Bsf706 K 5.2 mEq/L 11/28/2017 Comp Metabolic Zte086 CL 106 mEq/L 11/28/2017 Comp Metabolic Dlf278 CO2 28.0 mEq/L 11/28/2017 Comp Metabolic Nbk318 ANION GAP 10 11/28/2017 Comp Metabolic Esk857 GLUCOSE 89 mg/dL 11/28/2017 Comp Metabolic Mgv045 Creat 1.1 mg/dL 11/28/2017 Comp Metabolic Dah155 eGFR 66 ml/min/1.73m2 11/28/2017 Comp Metabolic Rgn968 BUN 18 mg/dL 11/28/2017 Comp Metabolic Mlm451 B/C Ratio 16.1 Ratio 11/28/2017 Comp Metabolic Rhd605 CALCIUM 9.2 mg/dL 11/28/2017 Comp Metabolic Euo190 ALK PHOS 89 U/L 11/28/2017 Comp Metabolic Doy715 AST(SGOT) 22 U/L 11/28/2017 Comp Metabolic Uxi296 ALT(SGPT) 15 U/L 11/28/2017 Comp Metabolic Qfz302 BILI T 0.6 mg/dL 11/28/2017 Comp Metabolic Mbl780 ALBUMIN 3.9 g/dL 11/28/2017 Comp Metabolic Ojm502 TPRO 6.5 g/dL 11/28/2017 Comp Metabolic Vkd796 GLOB 2.6 g/dL 11/28/2017 Comp Metabolic Itf626 A/G Ratio 1.5 Ratio 11/28/2017 Comp Metabolic Ged899 Osmo 279 mOsmo 11/28/2017 Ferritin Ord22 FERRITIN [...] 33.7 % 07/18/2017 Cbc With Differential Ord2 Ford% 12.3 % 07/18/2017 Cbc With Differential Ord2 [...] 2.90 K/ul 07/18/2017 Cbc With Differential Ord2 Ford ABS# 1.1 K/ul 07/18/2017 Cbc With Differential Ord2 Eos ABS# 0.2 K/ul 07/18/2017 Cbc With Differential Ord2 Baso ABS# 0.0 K/ul 07/18/2017 Comp Metabolic Rgx325 NA 140 mEq/L 07/18/2017 Comp Metabolic Umw492 K 4.6 mEq/L 07/18/2017 Comp Metabolic Hhn936 CL 105 mEq/L 07/18/2017 Comp Metabolic Kcp189 CO2 29.0 mEq/L 07/18/2017 Comp Metabolic Kku611 ANION GAP 11 07/18/2017 Comp Metabolic Xyr031 GLUCOSE 96 mg/dL 07/18/2017 Comp Metabolic Wua532 Creat 1.0 mg/dL 07/18/2017 Comp Metabolic Tnu149 eGFR 73 ml/min/1.73m2 07/18/2017 Comp Metabolic Fyt987 BUN 12 mg/dL 07/18/2017 Comp Metabolic Iav809 B/C Ratio 11.7 Ratio 07/18/2017 Comp Metabolic Vms253 CALCIUM 9.2 mg/dL 07/18/2017 Comp Metabolic Zhb122 ALK PHOS 74 U/L 07/18/2017 Comp Metabolic Tmj574 AST(SGOT) 29 U/L 07/18/2017 Comp Metabolic Fqy949 ALT(SGPT) 16 U/L 07/18/2017 Comp Metabolic Tzo345 BILI T 0.7 mg/dL 07/18/2017 Comp Metabolic Ifm118 ALBUMIN 3.7 g/dL 07/18/2017 Comp Metabolic Esn146 TPRO 6.5 g/dL 07/18/2017 Comp Metabolic Xmf256 GLOB 2.8 g/dL 07/18/2017 Comp Metabolic Had910 A/G Ratio 1.3 Ratio 07/18/2017 Comp Metabolic Zax573 Osmo 279 mOsmo 07/18/2017 Iron Ord72 Iron 114 ug/dl 07/18/2017 B12 Hpa177 B12 233.00 pg/ml 07/18/2017 Tsh Ord6 hTSH [...] 33.3 pg 12/13/2016 Cbc With Differential Ord2 Ford% 17.9 % 12/13/2016 Cbc With Differential Ord2 [...] 2.71 K/ul 12/13/2016 Cbc With Differential Ord2 Ford ABS# 1.7 K/ul 12/13/2016 Cbc With Differential Ord2 Eos ABS# 0.3 K/ul 12/13/2016 Cbc With Differential Ord2 Baso ABS# 0.0 K/ul 12/13/2016 Comp Metabolic Feb578 NA 136 mEq/L 12/13/2016 Comp Metabolic Ywf418 K 4.7 mEq/L 12/13/2016 Comp Metabolic Wfs630 CL 102 mEq/L 12/13/2016 Comp Metabolic Rvq432 CO2 26.0 mEq/L 12/13/2016 Comp Metabolic Gpw531 ANION GAP 13 12/13/2016 Comp Metabolic Rlt240 GLUCOSE 87 mg/dL 12/13/2016 Comp Metabolic Hep196 Creat 0.9 mg/dL 12/13/2016 Comp Metabolic Mwv589 eGFR 83 ml/min/1.73m2 12/13/2016 Comp Metabolic Zmi820 BUN 17 mg/dL 12/13/2016 Comp Metabolic Zqk846 B/C Ratio 18.3 Ratio 12/13/2016 Comp Metabolic Fyl287 CALCIUM 9.1 mg/dL 12/13/2016 Comp Metabolic Xrs565 ALK PHOS 90 U/L 12/13/2016 Comp Metabolic Cem865 AST(SGOT) 22 U/L 12/13/2016 Comp Metabolic Iiv462 ALT(SGPT) 15 U/L 12/13/2016 Comp Metabolic Rvu090 BILI T 0.8 mg/dL 12/13/2016 Comp Metabolic Fvf594 ALBUMIN 3.6 g/dL 12/13/2016 Comp Metabolic Kbj562 TPRO 6.4 g/dL 12/13/2016 Comp Metabolic Ghe316 GLOB 2.9 g/dL 12/13/2016 Comp Metabolic Mac693 A/G Ratio 1.2 Ratio 12/13/2016 Comp Metabolic Rdi248 Osmo 273 mOsmo 12/13/2016 Lipid Ord30 CHOL 182 mg/dL 12/13/2016 Lipid Ord30 HDL 64.0 mg/dl 12/13/2016 Lipid Ord30 TRIG 62 mg/dL 12/13/2016 Lipid Ord30 LDL 106 mg/dL 12/13/2016 Lipid Ord30 C/HDL 2.8 Ratio 12/13/2016 Ferritin Ord22 FERRITIN 434.7 ng/mL 12/13/2016 B12 Pvr150 B12 247.00 pg/ml 12/13/2016 Tibc Ord40 Iron [...] 33.7 pg 04/27/2016 Cbc With Differential Ord2 Ford% 13.7 % 04/27/2016 Cbc With Differential Ord2 [...] 3.22 K/ul 04/27/2016 Cbc With Differential Ord2 Ford ABS# 1.2 K/ul 04/27/2016 Cbc With Differential Ord2 Eos ABS# 0.3 K/ul 04/27/2016 Cbc With Differential Ord2 Baso ABS# 0.0 K/ul 04/27/2016 Comp Metabolic Bym050 NA 138 mEq/L 04/27/2016 Comp Metabolic Fhx298 K 4.3 mEq/L 04/27/2016 Comp Metabolic Ska361 CL 104 mEq/L 04/27/2016 Comp Metabolic Xtz597 CO2 30.0 mEq/L 04/27/2016 Comp Metabolic Kca418 ANION GAP 8 04/27/2016 Comp Metabolic Tlg147 GLUCOSE 87 mg/dL 04/27/2016 Comp Metabolic Cmr714 Creat 0.9 mg/dL 04/27/2016 Comp Metabolic Evo952 eGFR 82 ml/min/1.73m2 04/27/2016 Comp Metabolic Nin902 BUN 13 mg/dL 04/27/2016 Comp Metabolic Bjr963 B/C Ratio 13.8 Ratio 04/27/2016 Comp Metabolic Jda673 CALCIUM 9.0 mg/dL 04/27/2016 Comp Metabolic Vxp915 ALK PHOS 62 U/L 04/27/2016 Comp Metabolic Qkb389 AST(SGOT) 24 U/L 04/27/2016 Comp Metabolic Nsm781 ALT(SGPT) 15 U/L 04/27/2016 Comp Metabolic Yup183 BILI T 0.7 mg/dL 04/27/2016 Comp Metabolic Dwb765 ALBUMIN 3.6 g/dL 04/27/2016 Comp Metabolic Kln360 TPRO 6.1 g/dL 04/27/2016 Comp Metabolic Rkv744 GLOB 2.5 g/dL 04/27/2016 Comp Metabolic Zea177 A/G Ratio 1.4 Ratio 04/27/2016 Comp Metabolic Cta503 Osmo 275 mOsmo 04/27/2016 B12 Kgc119 B12 >1500.00 pg/ml 04/27/2016 Iron Ord72 Iron [...] Procedure Codes Date THER/PROPH/DIAG INJ SC/IM CPT-4: 97821 08/30/2018 VITAMIN B12 INJECTION CPT- 4: J3420 08/30/2018 VITAMIN B12 INJECTION CPT- 4: J3420 07/31/2018 THER/PROPH/DIAG INJ SC/IM CPT-4: 65621 07/31/2018 THER/PROPH/DIAG INJ SC/IM CPT-4: 25379 07/02/2018 VITAMIN B12 INJECTION CPT- 4: J3420 07/02/2018 THER/PROPH/DIAG INJ SC/IM CPT-4: 30203 05/31/2018 ADMIN INFLUENZA VIRUS VAC CPT-4: G0008 05/31/2018 VITAMIN B12 INJECTION CPT- 4: J3420 05/31/2018 FLU VACC PRSV FREE INC ANTIG Formatting Model/CDA Sections, Assigned to/Alonzo Mary Grace CPT-4: 36250Myvzkpz 05/31/2018 VITAMIN B12 INJECTION CPT- 4: J3420 05/03/2018 THER/PROPH/DIAG INJ SC/IM CPT-4: 02676 05/03/2018 THER/PROPH/DIAG INJ SC/IM CPT-4: 82853 04/04/2018 VITAMIN B12 INJECTION CPT- 4: J3420 04/04/2018 THER/PROPH/DIAG INJ SC/IM CPT-4: 83126 03/05/2018 VITAMIN B12 INJECTION CPT- 4: J3420 03/05/2018 VITAMIN B12 INJECTION CPT- 4: J3420 01/30/2018 THER/PROPH/DIAG INJ SC/IM CPT-4: 32944 01/30/2018 THER/PROPH/DIAG INJ SC/IM CPT-4: 91273 01/01/2018 VITAMIN B12 INJECTION CPT- 4: J3420 01/01/2018 PPPS, SUBSEQ VISIT CPT- 4: G0439 12/18/2017 THER/PROPH/DIAG INJ SC/IM CPT-4: 76029 11/28/2017 VITAMIN B12 INJECTION CPT- 4: J3420 11/28/2017 THER/PROPH/DIAG INJ SC/IM CPT-4: 69337 10/24/2017 VITAMIN B12 INJECTION CPT- 4: J3420 10/24/2017 THER/PROPH/DIAG INJ SC/IM CPT-4: 74504 09/26/2017 VITAMIN B12 INJECTION CPT- 4: J3420 09/26/2017 THER/PROPH/DIAG INJ SC/IM CPT-4: 21270 08/10/2017 VITAMIN B12 INJECTION CPT- 4: J3420 08/10/2017 THER/PROPH/DIAG INJ SC/IM CPT-4: 96856 07/18/2017 VITAMIN B12 INJECTION CPT- 4: J3420 07/18/2017 THER/PROPH/DIAG INJ SC/IM CPT-4: 32323 05/16/2017 VITAMIN B12 INJECTION CPT- 4: J3420 05/16/2017 THER/PROPH/DIAG INJ SC/IM CPT-4: 62106 03/14/2017 VITAMIN B12 INJECTION CPT- 4: J3420 03/14/2017 TRIAMCINOLONE ACET INJ NOS CPT-4: J3301 01/12/2017 ROCEPHIN, PER 250 MG CPT- 4: J0696 01/12/2017 VITAMIN B12 INJECTION CPT- 4: J3420 01/12/2017 THER/PROPH/DIAG INJ SC/IM CPT-4: 73505 01/12/2017 PPPS, SUBSEQ VISIT CPT- 4: G0439 12/12/2016 PNEUMOCOCCAL VACC [address]: 05542993 CPT-4: 16934 12/12/2016 ADMIN PNEUMOCOCCAL VACCINE SNOMED CT: 92128879 CPT-4: G0009 12/12/2016 THER/PROPH/DIAG INJ SC/IM CPT-4: 22665 10/27/2016 VITAMIN B12 INJECTION CPT- 4: J3420 10/27/2016 THER/PROPH/DIAG INJ SC/IM CPT-4: 49320 07/27/2016 VITAMIN B12 INJECTION CPT- 4: J3420 07/27/2016 THER/PROPH/DIAG INJ SC/IM CPT-4: 52552 04/26/2016 VITAMIN B12 INJECTION CPT- 4: J3420 04/26/2016 Vital Signs Date Vital 08/15/2018 Blood Pressure 1: 144/66 Code: 8480-6 BMI: 25.1 Code: 40698-8 Heart Rate 1: 75 bpm Height: 5'7" SpO2: 98% Weight: 160 lbs 05/23/2018 Blood Pressure 1: 158/64 Code: 8480-6 BMI: 24.7 Code: 85151-1 Heart Rate 1: 76 bpm Height: 5'7" SpO2: 96% Temperature: 36.7 (C) / 98.1 (F) Weight: 158 lbs 05/03/2018 Blood Pressure 1: 122/72 Code: 8480-6 BMI: 25.1 Code: 15459-2 Heart Rate 1: 74 bpm Height: 5'7" SpO2: 97% Weight: 160 lbs 01/31/2018 Blood Pressure 1: 137/77 Code: 8480-6 Blood Pressure 2: 138/68 Code: 8480-6 Heart Rate 1: 67 bpm SpO2: 98% 01/30/2018 Blood Pressure 1: 138/66 Code: 8480-6 BMI: 25.1 Code: 95166-4 Heart Rate 1: 76 bpm Height: 5'7" SpO2: 94% Weight: 160 lbs 12/18/2017 Blood Pressure 1: 152/88 Code: 8480-6 BMI: 25.8 Code: 16764-1 Heart Rate 1: 68 bpm Height: 5'7" SpO2: 96% Weight: 165 lbs 11/28/2017 Blood Pressure 1: 150/76 Code: 8480-6 BMI: 25.2 Code: 30116-0 Heart Rate 1: 78 bpm Height: 5'7" SpO2: 98% Weight: 161 lbs 10/10/2017 Blood Pressure 1: 156/76 Code: 8480-6 BMI: 24.7 Code: 18650-0 Heart Rate 1: 71 bpm Height: 5'7" SpO2: 98% Weight: 158 lbs 09/26/2017 Blood Pressure 1: 162/82 Code: 8480-6 BMI: 24.7 Code: 75418-4 Heart Rate 1: 69 bpm Height: 5'7" SpO2: 99% Weight: 158 lbs 08/16/2017 Blood Pressure 1: 154/82 Code: 8480-6 BMI: 24.1 Code: 25111-6 Heart Rate 1: 58 bpm Height: 5'7" SpO2: 96% Weight: 154 lbs 07/18/2017 Blood Pressure 1: 152/88 Code: 8480-6 BMI: 25.2 Code: 83416-3 Heart Rate 1: 72 bpm Height: 5'7" SpO2: 98% Weight: 161 lbs 05/16/2017 Blood Pressure 1: 136/78 Code: 8480-6 BMI: 24.8 Code: 74641-3 Heart Rate 1: 71 bpm Height: 5'7" SpO2: 96% Weight: 158 lbs 8 oz 03/14/2017 Blood Pressure 1: 142/74 Code: 8480-6 BMI: 23.8 Code: 59358-3 Heart Rate 1: 69 bpm Height: 5'7" SpO2: 94% Weight: 152 lbs 01/12/2017 Blood Pressure 1: 156/90 Code: 8480-6 BMI: 23.4 Code: 77201-7 Heart Rate 1: 90 bpm Height: 5'7" SpO2: 97% Temperature: 37.4 (C) / 99.3 (F) Weight: 149 lbs 8 oz 12/12/2016 Blood Pressure 1: 140/78 Code: 8480-6 BMI: 24.3 Code: 02449-7 Heart Rate 1: 73 bpm Height: 5'7" SpO2: 96% Waist Measure (cm): 90 cm Weight: 155 lbs 12/08/2016 Blood Pressure 1: 148/84 Code: 8480-6 BMI: 24.3 Code: 27623-5 Heart Rate 1: 80 bpm Height: 5'7" SpO2: 96% Weight: 155 lbs 11/03/2016 Blood Pressure 1: 156/84 Code: 8480-6 Blood Pressure 2: 155/94 Code: 8480-6 BMI: 24.3 Code: 77170-7 Heart Rate 1: 81 bpm Height: 5'7" SpO2: 98% Weight: 155 lbs 10/06/2016 Blood Pressure 1: 175/95 Code: 8480-6 Heart Rate 1: 77 bpm Respiratory Rate: 16 bpm SpO2: 98% Temperature: 36.4 (C) / 97.5 (F) Weight: 157 lbs 09/06/2016 Blood Pressure 1: 136/80 Code: 8480-6 BMI: 24.1 Code: 57284-8 Heart Rate 1: 82 bpm Height: 5'8" SpO2: 97% Weight: 156 lbs 08/23/2016 Blood Pressure 1: 160/80 Code: 8480-6 BMI: 24.4 Code: 64181-5 Heart Rate 1: 88 bpm Height: 5'8" SpO2: 95% Weight: 158 lbs 04/26/2016 Blood Pressure 1: 156/74 Code: 8480-6 BMI: 24.5 Code: 20296-7 Heart Rate 1: 70 bpm Height: 5'8" [...] Encounters Encounter Performer Location Codes Date () [id number] EST. PATIENT, LEVEL III Diagnosis: Essential (primary) hypertension[ICD10: I10] Andree Paris MD, [facility] CPT-4: 97244 08/15/2018 [id number] EST. PATIENT, LEVEL III Diagnosis: Dysphagia, pharyngoesophageal phase[ICD10: R13.14] Teresa Paris MD, [facility] CPT-4: 24274 05/23/2018 ([id number]) 17376 EST. PATIENT, LEVEL IV Diagnosis: Essential (primary) hypertension[ICD10: I10] Diagnosis: Chronic pain syndrome[ICD10: G89.4] Diagnosis: 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 deficiency[ICD10: D51.0] Diagnosis: Other iron deficiency anemias[ICD10: D50.8] Diagnosis: Slow transit constipation[ICD10: K59.01] [facility] CPT-4: 70625 05/03/2018 ([id number]) Miscellaneous no charge Diagnosis: Essential (primary) hypertension[ICD10: I10] Teresa Paris MD, [facility] CPT-4: 81099 01/31/2018 [id number]) 96748 EST. PATIENT, LEVEL IV Diagnosis: Essential (primary) hypertension[ICD10: I10] Diagnosis: Chronic pain syndrome[ICD10: G89.4] Andree Paris MD, [facility] CPT- 4: 52723 01/30/2018 ([id number]) 22984 EST. PATIENT, LEVEL IV Diagnosis: Essential (primary) hypertension[ICD10: I10] Diagnosis: Chronic pain syndrome[ICD10: G89.4] Diagnosis: 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 deficiency[ICD10: D51.0] Diagnosis: Iron deficiency anemia, unspecified[ICD10: D50.9] Ana Paris MD, [facility] CPT-4: 89752 11/28/2017 43270 EST. PATIENT, LEVEL IV Diagnosis: Essential (primary) hypertension[ICD10: I10] Diagnosis: Slow transit constipation[ICD10: K59.01] Diagnosis: Chronic pain syndrome[ICD10: G89.4] Teresa Paris MD, [facility] CPT- 4: 96123 10/10/2017 98515 EST. PATIENT, LEVEL IV Diagnosis: 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 deficiency[ICD10: D51.0] Diagnosis: Essential (primary) hypertension[ICD10: I10] Diagnosis: Chronic pain syndrome[ICD10: G89.4] Teresa Paris MD, [facility] CPT- 4: 18864 09/26/2017 52012 EST. PATIENT, LEVEL III Diagnosis: Dysphagia, pharyngoesophageal phase[ICD10: R13.14] Teresa Paris MD, [facility] CPT-4: 18675 08/16/2017 ([id number]) 71292 EST. PATIENT, LEVEL IV Diagnosis: Essential (primary) hypertension[ICD10: I10] Diagnosis: Chronic pain syndrome[ICD10: G89.4] Diagnosis: 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 deficiency[ICD10: D51.0] Diagnosis: Iron deficiency anemia, unspecified[ICD10: D50.9] Diagnosis: Dysphagia, pharyngoesophageal phase[ICD10: R13.14] Ana Paris MD, [facility] CPT-4: 61246 07/18/2017 ([id number]) 61722 EST. PATIENT, LEVEL III Diagnosis: Essential (primary) hypertension[ICD10: I10] Diagnosis: Chronic pain syndrome[ICD10: G89.4] Diagnosis: 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 deficiency[ICD10: D51.0] Ana Paris MD, [facility] CPT-4: 49957 05/16/2017 ([id number]) 66314 EST. PATIENT, LEVEL III Diagnosis: Essential (primary) hypertension[ICD10: I10] Diagnosis: Chronic pain syndrome[ICD10: G89.4] Diagnosis: 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 deficiency[ICD10: D51.0] Ana Paris MD, [facility] CPT-4: 61859 03/14/2017 ([id number]) 31211 EST. PATIENT, LEVEL III Diagnosis: Cough[ICD10: R05] Diagnosis: Acute bronchitis, unspecified[ICD10: J20.9] Diagnosis: Chronic pain syndrome[ICD10: G89.4] Diagnosis: 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 deficiency[ICD10: D51.0] Ana Paris MD, [facility] CPT-4: 20984 01/12/2017 ([id number]) 05150 EST. PATIENT, LEVEL III Diagnosis: Essential (primary) hypertension[ICD10: I10] Diagnosis: Chronic pain syndrome[ICD10: G89.4] Ana Paris MD, [facility] CPT-4: 35801 12/08/2016 ([id number]) 22917 EST. PATIENT, LEVEL III Diagnosis: Essential (primary) hypertension[ICD10: I10] Ana Paris MD, [facility] CPT-4: 82097 11/03/2016 ([id number]) 08869 EST. PATIENT, LEVEL III Diagnosis: Essential (primary) hypertension[ICD10: I10] Ana Paris MD, [facility] CPT-4: 71333 10/06/2016 ([id number]) 63403 EST. PATIENT, LEVEL III Diagnosis: Essential (primary) hypertension[ICD10: I10] Ana Paris MD, [facility] CPT-4: 28521 09/06/2016 ([id number]) 07602 EST. PATIENT, LEVEL III Diagnosis: Essential (primary) hypertension[ICD10: I10] Ana Paris MD, [facility] CPT-4: 66852 08/23/2016 ([id number]) OFFICE VISIT, NEW - LEVEL 4 Diagnosis: Noninfective gastroenteritis and colitis, unspecified[ICD10: K52.9] Diagnosis: 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 deficiency[ICD10: D51.0] Diagnosis: Iron deficiency anemia, unspecified[ICD10: D50.9] Diagnosis: Chalazion left upper eyelid[ICD10: H00.14] Diagnosis: Elevated blood-pressure reading, without diagnosis of hypertension[ICD10: R03.0] Andree Paris MD, [facility] CPT-4: 44524 04/26/2016 Plan of Care Planned Activity Notes [...] his amlodipine 08/15/2018 Appointment: Andree Paris WPtel: [address] [place] [address] (15 min) Moderate 08/15/2018 Patient Education: Patient [...] treatment plan. 05/23/2018 Appointment: Teresa Bardales WPtel: [facility]5 [facility] (15 min) Moderate 05/23/2018 Patient Education: Patient [...] current management. 05/03/2018 App[facility]ment: [phone] (15 min) Moderate 05/03/2018 Patient Education: Patient [...] of over-medication. 01/30/2018 Appointment: Andree Paris WPtel: [phone] [phone] (15 min) Moderate 01/30/2018 Patient Education: Patient [...] acute concerns. 12/18/2017 Appointment: Ana Pedraza WPtel: [address] [place], [place] [phone] [facility] - Annual Wellness Visit 12/18/2017 Patient [...] labs 11/28/2017 Appointment: Ana Pedraza WPtel: [phone] [phone] (30 min) Complex 11/28/2017 Patient Education: Patient [...] Teresa Bardales WPtel: [phone] [phone] (30 min) Complex 10/10/2017 Patient Education: Patient [...] Bardales WPtel: [facility]5 [facility] (30 min) Complex 09/26/2017 Patient Education: Patient Medication Summary Completed 09/26/2017 Appointment: Teresa Bardales WPtel: [address] [place], [place] [phone] (30 min) Complex 09/19/2017 Referral: External, Ordering Provider Referral Appointment Confirmed 08/17/2017 Visit Plan: Dysphagia - worsening since yesterday - will refer to Dr. Harper for possible EGD - pt is to notify clinic if symptoms do not improve, if they worsen, or with any acute changes, questions, or concerns. 08/16/2017 Appointment: Teresa Bardales WPtel: [facility] (30 min) Complex 08/16/2017 Patient Education: Patient Medication Summary Completed 08/16/2017 Care Plan: Referral Order SNOMED-CT : [id number] Pending 08/16/2017 Appointment: Injection 08/10/2017 Patient Education: [...] today first 07/18/2017 Appointment: Ana Pedraza WPtel: [phone] [place] (30 min) Complex 07/18/2017 [...] of over-medication. 05/16/2017 Appointment: Ana Pedraza WPtel: [address] [place], [place] [phone] [place] [address] (30 min) Complex 05/16/2017 Patient Education: Patient [...] of over-medication. 03/14/2017 Appointment: Ana Pedraza WPtel: [facility]5 [facility] [place] [address] (30 min) Complex 03/14/2017 Patient Education: Patient [...] Ana Pedraza WPtel: [facility]3 [facility] [place] [address] (30 min) Complex 01/12/2017 Patient Education: Patient [...] care surrogate. 12/12/2016 Appointment: Ana Pedraza WPtel: [address] [place] [phone] [facility] - Annual Wellness Visit 12/12/2016 Patient [...] Pedraza WPtel: [phone] (30 min) Complex 12/08/2016 Patient Education: Patient [...] concerns. 11/03/2016 Appointment: [facility]za [facility]el[phone] [phone] (30 min) Complex 11/03/2016 Patient Education: Patient [...] concerns. 10/06/2016 Appointment: [phone] (30 min) Complex 10/06/2016 Patient Education: Patient [...] acute concerns. 09/06/2016 Appointment: Ana Pedraza WPtel: [address] [place] [address] (30 min) Complex 09/06/2016 Patient Education: Patient [...] Pedraza WPtel: [facility]5 [phone] (15 min) Moderate 08/23/2016 Patient Education: Patient [...] for gentamycin. 04/26/2016 Appointment: Andree Paris WPtel: [facility] New Patient 04/26/2016 Patient Education: Patient Medication [...] consider decreasing or stopping his amlodipine . 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 Chronic abdominal pain, diarrhea - treatment successfully with morphine daily - continue with current management. Eyelid infection - rx for gentamycin. . Dysphagia - worsening since yesterday - will refer to Dr. Harper for possible EGD - pt is to notify clinic if symptoms do not improve, if they worsen, or with any acute changes, questions, or concerns. . Dysphagia - discussed with Dr. Paris - will start pt on carafate and PPI - pt is to follow up with Dr. Parish on 05/23/18 at 1:30PM - pt is to update clinic with any changes in the current treatment plan. . Hypertension - uncontrolled - the [...] directed, and understands the consequences of over-medication. SCHEDULE SWALLOW STUDY CHECK LABS THEN SCHEDULE [...] pt is to call for acute concerns. if your blood pressure is at or [...] was improved - continue with current management. OKAY TO STAY OF THE WATER PILL [...]
--- OUTSIDE RECORDS SUMMARY | 2019-02-13 09:52 | XMS REPORT | CCD ---
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 Name Role Phone PP Unavailable CCM Unavailable Summary Purpose Interface Exchange Insurance Providers Payer name Policy type / Coverage type Covered democrat ID Effective Begin Date Effective End Date WPS Medicare Part B Medicare Part B [id number] Unknown Unknown FOR LIFE WPS Medicare Part B [id number] Unknown Unknown Family history Father Diagnosis Age At Onset No Known Diseases N/A Mother Diagnosis Age At Onset No Known Diseases N/A Social History Social History Element Codes Description Effective Dates Marital status Unknown 04/26/2016 Number of children Unknown 3 04/26/2016 Employment Unknown Retired 04/26/[address]: 1091806 Former smoker Quit 1968 04/26/[address]: 881768 Currently drinks alcohol 04/26/2016 Has the patient ever used illegal drugs? Unknown Has never used illegal drugs 04/26/2016 Allergies, Adverse Reactions, Alerts Substance Reaction Codes Entered Date Inactivated Date Status ibuprofen rash RxNorm: 5640 04/26/2016 No Inactive Date Active Past Medical History Illness Codes Condition Status Onset Date Resolved Date Essential (primary) hypertension ICD-9: 401.1 ICD-10: I10 [...] Problems Condition Codes Effective Dates Condition Status Essential (primary) hypertension ICD-9: 401.1 ICD-10: I10 [...] morphine ER 30 mg tablet,extended release RxNorm: 850670 1 Tablet(s) PO daily 07/31/2018 08/29/2018 Active cyanocobalamin (vit B-12) 1,000 mcg/mL injection solution RxNorm: 895057 Milliliter(s) Inj 07/31/2018 07/31/2018 Inactive amlodipine 5 mg tablet RxNorm: 946723 1 Tablet(s) PO QPM 07/11/2018 01/06/2019 Active cyanocobalamin (vit B-12) 1,000 mcg/mL injection solution RxNorm: 147391 1 Milliliter(s) Inj 07/02/2018 07/02/2018 Inactive morphine ER 30 mg tablet,extended release RxNorm: 352916 1 Tablet(s) PO daily 07/02/2018 07/30/2018 Inactive morphine ER 30 mg tablet,extended release RxNorm: 076360 1 Tablet(s) PO daily 05/31/2018 06/29/2018 Inactive cyanocobalamin (vit B-12) 1,000 mcg/mL injection solution RxNorm: 202702 Milliliter(s) Inj 05/31/2018 05/31/2018 Inactive Protonix 40 mg tablet,delayed release RxNorm: 971760 1 Tablet(s) PO daily 05/23/2018 06/21/2018 Inactive Carafate 1 gram tablet RxNorm: 933080 1 Tablet(s) PO AC & HS as needed 05/23/2018 06/21/2018 Inactive cyanocobalamin (vit B-12) 1,000 mcg/mL injection solution RxNorm: 348911 1 Milliliter(s) Inj 05/03/2018 05/03/2018 Inactive morphine ER 30 mg tablet,extended release RxNorm: 868858 1 Tablet(s) PO daily 04/04/2018 05/03/2018 Inactive cyanocobalamin (vit B-12) 1,000 mcg/mL injection solution RxNorm: 751643 1 Milliliter(s) Inj 04/04/2018 04/04/2018 Inactive cyanocobalamin (vit B-12) 1,000 mcg/mL injection solution RxNorm: 021597 1 Milliliter(s) Inj 03/05/2018 03/05/2018 Inactive morphine ER 30 mg tablet,extended release RxNorm: 556624 1 Tablet(s) PO daily 03/05/2018 04/03/2018 Inactive cyanocobalamin (vit B-12) 1,000 mcg/mL injection solution RxNorm: 702284 1 Milliliter(s) Inj 01/30/2018 01/30/2018 Inactive cyanocobalamin (vit B-12) 1,000 mcg/mL injection solution RxNorm: 743203 1 Milliliter(s) Inj 01/01/2018 01/01/2018 Inactive morphine ER 30 mg tablet,extended release RxNorm: 025614 1 Tablet(s) PO daily 01/01/2018 01/30/2018 Inactive lisinopril 20 mg tablet RxNorm: 403494 1 Tablet(s) PO BID 12/18/2017 12/12/2018 Active amlodipine 5 mg tablet RxNorm: 484319 1 Tablet(s) PO QPM 12/18/2017 06/15/2018 Inactive cyanocobalamin (vit B-12) 1,000 mcg/mL injection solution RxNorm: 273175 1 Milliliter(s) Inj 11/28/2017 11/28/2017 Inactive morphine ER 30 mg tablet,extended release RxNorm: 881148 1 Tablet(s) PO daily 11/28/2017 12/27/2017 Inactive morphine ER 30 mg tablet,extended release RxNorm: 877938 1 Tablet(s) PO daily 11/09/2017 11/27/2017 Inactive cyanocobalamin (vit B-12) 1,000 mcg/mL injection solution RxNorm: 388871 1 Milliliter(s) Inj 10/24/2017 10/24/2017 Inactive morphine ER 30 mg tablet,extended release RxNorm: 358139 1 Tablet(s) PO daily 10/10/2017 11/08/2017 Inactive hydrochlorothiazide 25 mg tablet RxNorm: 727532 1 Tablet(s) PO daily 10/10/2017 11/08/2017 Inactive cyanocobalamin (vit B-12) 1,000 mcg/mL injection solution RxNorm: 041378 1 Milliliter(s) Inj 09/26/2017 09/26/2017 Inactive hydrochlorothiazide 12.5 mg tablet RxNorm: 324506 1 Tablet(s) PO daily 09/26/2017 10/25/2017 Inactive morphine ER 30 mg tablet,extended release RxNorm: 102038 1 Tablet(s) PO daily 09/12/2017 10/09/2017 Inactive cyanocobalamin (vit B-12) 1,000 mcg/mL injection solution RxNorm: 898146 1 Milliliter(s) Inj 08/10/2017 08/10/2017 Inactive morphine ER 30 mg tablet,extended release RxNorm: 629235 1 Tablet(s) PO daily 08/10/2017 09/08/2017 Inactive Vitamin B-12 1,000 mcg/mL injection solution RxNorm: 453660 1 Milliliter(s) Inj month 07/21/2017 No Stop Date Active B12 INJECTIONS MONTHLY cyanocobalamin (vit B-12) 1,000 mcg/mL injection solution RxNorm: 380199 1 Milliliter(s) Inj 07/18/2017 07/18/2017 Inactive morphine ER 30 mg tablet,extended release RxNorm: 131458 1 Tablet(s) PO daily 07/13/2017 08/09/2017 Inactive morphine ER 30 mg tablet,extended release RxNorm: 760228 1 Tablet(s) PO daily 06/15/2017 07/12/2017 Inactive cyanocobalamin (vit B-12) 1,000 mcg/mL injection solution RxNorm: 545603 1 Milliliter(s) Inj 05/16/2017 05/16/2017 Inactive morphine ER 30 mg tablet,extended release RxNorm: 548622 1 Tablet(s) PO daily 04/13/2017 05/12/2017 Inactive cyanocobalamin (vit B-12) 1,000 mcg/mL injection solution RxNorm: 937187 1 Milliliter(s) Inj 03/14/2017 03/14/2017 Inactive morphine ER 30 mg tablet,extended release RxNorm: 224801 1 Tablet(s) PO daily 03/14/2017 04/12/2017 Inactive morphine ER 30 mg tablet,extended release RxNorm: 012544 1 Tablet(s) PO daily 02/13/2017 03/13/2017 Inactive Kenalog 40 mg/mL suspension for injection RxNorm: 6521597 1 Milliliter(s) Inj 01/12/2017 01/12/2017 Inactive cyanocobalamin (vit B-12) 1,000 mcg/mL injection solution RxNorm: 548336 1 Milliliter(s) Inj 01/12/2017 01/12/2017 Inactive Zithromax Z-[place] 250 mg tablet RxNorm: 075947 1 Tablet(s) PO UD 01/12/2017 01/16/2017 Inactive ceftriaxone 500 mg solution for injection RxNorm: 7430121 1 Milliliter(s) Inj 01/12/2017 01/12/2017 Inactive Vitamin B-12 1,000 mcg/mL injection solution RxNorm: 376182 1 Milliliter(s) Inj EVERY OTHER MONTH 01/04/2017 07/20/2017 Inactive lisinopril 20 mg tablet RxNorm: 170253 1 Tablet(s) PO BID 01/02/2017 12/17/2017 Inactive lisinopril 20 mg tablet RxNorm: 551723 1 Tablet(s) PO BID 12/12/2016 01/01/2017 Inactive morphine ER 30 mg tablet,extended release RxNorm: 317592 1 Tablet(s) PO daily 12/08/2016 01/06/2017 Inactive lisinopril 20 mg tablet RxNorm: 372494 1 Tablet(s) PO BID 11/03/2016 12/11/2016 Inactive morphine ER 30 mg tablet,extended release RxNorm: 450842 1 Tablet(s) PO daily 11/03/2016 12/02/2016 Inactive cyanocobalamin (vit B-12) 1,000 mcg/mL injection solution RxNorm: 256606 1 Milliliter(s) Inj 10/27/2016 10/27/2016 Inactive lisinopril 10 mg tablet RxNorm: 081734 1 Tablet(s) PO BID 10/06/2016 11/02/2016 Inactive lisinopril 10 mg tablet RxNorm: 691981 1 Tablet(s) PO daily 09/06/2016 10/05/2016 Inactive morphine ER 30 mg tablet,extended release RxNorm: 824543 1 Tablet(s) PO daily 08/18/2016 09/16/2016 Inactive cyanocobalamin (vit B-12) 1,000 mcg/mL injection solution RxNorm: 770383 Milliliter(s) Inj 07/27/2016 07/27/2016 Inactive morphine ER 30 mg tablet,extended release RxNorm: 840849 1 Tablet(s) PO daily 07/21/2016 08/17/2016 Inactive morphine ER 30 mg tablet,extended release RxNorm: 575547 1 Tablet(s) PO daily 06/20/2016 07/19/2016 Inactive morphine ER 30 mg tablet,extended release RxNorm: 098198 1 Tablet(s) PO daily 05/20/2016 06/19/2016 Inactive cyanocobalamin (vit B-12) 1,000 mcg/mL injection solution RxNorm: 870184 1 Milliliter(s) Inj 04/26/2016 04/26/2016 Inactive gentamicin 0.3 % eye drops RxNorm: 623006 2 Drop(s) OPH Q4H 04/26/2016 05/02/2016 Inactive Vitamin B-12 1,000 mcg/mL injection solution RxNorm: 810717 1 Milliliter(s) Inj EVERY 3 MONTHS No Start Date 01/03/2017 Inactive Claritin 10 mg tablet RxNorm: 245008 1 Tablet(s) PO daily No Start Date 07/17/2017 Inactive Venofer intravenous RxNorm: 26672 intravenous No Start Date 08/14/2018 Inactive morphine ER 30 mg tablet,extended release RxNorm: 688927 1 Tablet(s) PO daily No Start Date 04/25/2016 Inactive Medication Administered Medication Codes Instructions Start Date Status cyanocobalamin (vit B-12) 1,000 mcg/mL injection solution RxNorm: 988675 Milliliter 07/31/2018 No longer Active cyanocobalamin (vit B-12) 1,000 mcg/mL injection solution RxNorm: 642670 1Milliliter 07/02/2018 No longer Active cyanocobalamin (vit B-12) 1,000 mcg/mL injection solution RxNorm: 571492 Milliliter 05/31/2018 No longer Active cyanocobalamin (vit B-12) 1,000 mcg/mL injection solution RxNorm: 452556 1Milliliter 05/03/2018 No longer Active cyanocobalamin (vit B-12) 1,000 mcg/mL injection solution RxNorm: 485551 1Milliliter 04/04/2018 No longer Active cyanocobalamin (vit B-12) 1,000 mcg/mL injection solution RxNorm: 994884 1Milliliter 03/05/2018 No longer Active cyanocobalamin (vit B-12) 1,000 mcg/mL injection solution RxNorm: 392242 1Milliliter 01/30/2018 No longer Active cyanocobalamin (vit B-12) 1,000 mcg/mL injection solution RxNorm: 676703 1Milliliter 01/01/2018 No longer Active cyanocobalamin (vit B-12) 1,000 mcg/mL injection solution RxNorm: 691125 1Milliliter 11/28/2017 No longer Active cyanocobalamin (vit B-12) 1,000 mcg/mL injection solution RxNorm: 454887 1Milliliter 10/24/2017 No longer Active cyanocobalamin (vit B-12) 1,000 mcg/mL injection solution RxNorm: 784063 1Milliliter 09/26/2017 No longer Active cyanocobalamin (vit B-12) 1,000 mcg/mL injection solution RxNorm: 034198 1Milliliter 08/10/2017 No longer Active cyanocobalamin (vit B-12) 1,000 mcg/mL injection solution RxNorm: 990187 1Milliliter 07/18/2017 No longer Active cyanocobalamin (vit B-12) 1,000 mcg/mL injection solution RxNorm: 840966 1Milliliter 05/16/2017 No longer Active cyanocobalamin (vit B-12) 1,000 mcg/mL injection solution RxNorm: 992559 1Milliliter 03/14/2017 No longer Active Kenalog 40 mg/mL suspension for injection RxNorm: 7676146 1Milliliter 01/12/2017 No longer Active ceftriaxone 500 mg solution for injection RxNorm: 5063567 1Milliliter 01/12/2017 No longer Active cyanocobalamin (vit B-12) 1,000 mcg/mL injection solution RxNorm: 920825 1Milliliter 01/12/2017 No longer Active cyanocobalamin (vit B-12) 1,000 mcg/mL injection solution RxNorm: 353509 1Milliliter 10/27/2016 No longer Active cyanocobalamin (vit B-12) 1,000 mcg/mL injection solution RxNorm: 553013 Milliliter 07/27/2016 No longer Active cyanocobalamin (vit B-12) 1,000 mcg/mL injection solution RxNorm: 391541 1Milliliter 04/26/2016 No longer Active Immunizations Vaccine Codes Date Status Influenza CVX: 141 05/31/2018 completed Pneumococcal (Adult) CVX: 133 12/12/2016 completed Assessments Condition Codes Effective Dates Essential (primary) hypertension ICD-10: I10 ICD-9: 401.1 08/15/2018 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-10: D51.0 ICD-9: 281.0 07/31/2018 Encounter for immunization ICD-10: Z23 ICD-9: V03.89 [...] 32.9 pg 11/28/2017 Cbc With Differential Ord2 [place]% 12.6 % 11/28/2017 Cbc With Differential Ord2 [...] 2.87 K/ul 11/28/2017 Cbc With Differential Ord2 [place] ABS# 1.1 K/ul 11/28/2017 Cbc With Differential Ord2 Eos ABS# 0.3 K/ul 11/28/2017 Cbc With Differential Ord2 Baso ABS# 0.0 K/ul 11/28/2017 B12 Xkq497 B12 >1500.00 pg/ml 11/28/2017 Comp Metabolic Yyy916 NA 139 mEq/L 11/28/2017 Comp Metabolic Khg820 K 5.2 mEq/L 11/28/2017 Comp Metabolic Egj999 CL 106 mEq/L 11/28/2017 Comp Metabolic Nbs163 CO2 28.0 mEq/L 11/28/2017 Comp Metabolic Ori222 ANION GAP 10 11/28/2017 Comp Metabolic Pvt679 GLUCOSE 89 mg/dL 11/28/2017 Comp Metabolic Wou696 Creat 1.1 mg/dL 11/28/2017 Comp Metabolic Wdh203 eGFR 66 ml/min/1.73m2 11/28/2017 Comp Metabolic Pjk052 BUN 18 mg/dL 11/28/2017 Comp Metabolic Nkx470 B/C Ratio 16.1 Ratio 11/28/2017 Comp Metabolic Vqo274 CALCIUM 9.2 mg/dL 11/28/2017 Comp Metabolic Ljn291 ALK PHOS 89 U/L 11/28/2017 Comp Metabolic Mqg004 AST(SGOT) 22 U/L 11/28/2017 Comp Metabolic Gsm834 ALT(SGPT) 15 U/L 11/28/2017 Comp Metabolic Wzc304 BILI T 0.6 mg/dL 11/28/2017 Comp Metabolic Nxp737 ALBUMIN 3.9 g/dL 11/28/2017 Comp Metabolic Hlh355 TPRO 6.5 g/dL 11/28/2017 Comp Metabolic Jyv053 GLOB 2.6 g/dL 11/28/2017 Comp Metabolic Jup403 A/G Ratio 1.5 Ratio 11/28/2017 Comp Metabolic Pyk039 Osmo 279 mOsmo 11/28/2017 Ferritin Ord22 FERRITIN [...] 33.7 % 07/18/2017 Cbc With Differential Ord2 [place]% 12.3 % 07/18/2017 Cbc With Differential Ord2 [...] 2.90 K/ul 07/18/2017 Cbc With Differential Ord2 [place] ABS# 1.1 K/ul 07/18/2017 Cbc With Differential Ord2 Eos ABS# 0.2 K/ul 07/18/2017 Cbc With Differential Ord2 Baso ABS# 0.0 K/ul 07/18/2017 Comp Metabolic Pec892 NA 140 mEq/L 07/18/2017 Comp Metabolic Uqa591 K 4.6 mEq/L 07/18/2017 Comp Metabolic Rtm301 CL 105 mEq/L 07/18/2017 Comp Metabolic Ptj500 CO2 29.0 mEq/L 07/18/2017 Comp Metabolic Ead179 ANION GAP 11 07/18/2017 Comp Metabolic Hbf729 GLUCOSE 96 mg/dL 07/18/2017 Comp Metabolic Tcf057 Creat 1.0 mg/dL 07/18/2017 Comp Metabolic Nei504 eGFR 73 ml/min/1.73m2 07/18/2017 Comp Metabolic Qss849 BUN 12 mg/dL 07/18/2017 Comp Metabolic Gdm131 B/C Ratio 11.7 Ratio 07/18/2017 Comp Metabolic Qqu122 CALCIUM 9.2 mg/dL 07/18/2017 Comp Metabolic Upz754 ALK PHOS 74 U/L 07/18/2017 Comp Metabolic Qxj983 AST(SGOT) 29 U/L 07/18/2017 Comp Metabolic Lux606 ALT(SGPT) 16 U/L 07/18/2017 Comp Metabolic Wdb460 BILI T 0.7 mg/dL 07/18/2017 Comp Metabolic Fvi122 ALBUMIN 3.7 g/dL 07/18/2017 Comp Metabolic Mrb626 TPRO 6.5 g/dL 07/18/2017 Comp Metabolic Rhk570 GLOB 2.8 g/dL 07/18/2017 Comp Metabolic Wyq260 A/G Ratio 1.3 Ratio 07/18/2017 Comp Metabolic Qwa368 Osmo 279 mOsmo 07/18/2017 Iron Ord72 Iron 114 ug/dl 07/18/2017 B12 Ryk060 B12 233.00 pg/ml 07/18/2017 Tsh Ord6 hTSH II 0.97 uIU/mL 12/13/2016 Cbc With Differential Ord2 WBC 9.42 K/ul 12/13/2016 Cbc With Differential Ord2 RBC 4.33 M/ul 12/13/2016 Cbc With Differential Ord2 HGB 14.4 g/dl 12/13/2016 Cbc With Differential Ord2 HCT 43.3 % 12/13/2016 Cbc With Differential Ord2 Neut% 49.6 % 12/13/2016 Cbc With Differential Ord2 Lymph% 28.8 % 12/13/2016 Cbc With Differential Ord2 MCV 100.0 fl 12/13/2016 Cbc With Differential Ord2 [place]% 17.9 % 12/13/2016 Cbc With Differential Ord2 MCH 33.3 pg 12/13/2016 Cbc With Differential Ord2 Eos% 3.3 % 12/13/2016 Cbc With Differential Ord2 MCHC 33.3 pg 12/13/2016 Cbc With Differential Ord2 Baso% 0.4 % 12/13/2016 Cbc With Differential Ord2 PLT 380 K/ul 12/13/2016 Cbc With Differential Ord2 Neut ABS# 4.67 K/ul 12/13/2016 Cbc With Differential Ord2 RDW 14.4 % 12/13/2016 Cbc With Differential Ord2 Lymph ABS# 2.71 K/ul 12/13/2016 Cbc With Differential Ord2 [place] ABS# 1.7 K/ul 12/13/2016 Cbc With Differential Ord2 Eos ABS# 0.3 K/ul 12/13/2016 Cbc With Differential Ord2 Baso ABS# 0.0 K/ul 12/13/2016 Comp Metabolic Zwp913 NA 136 mEq/L 12/13/2016 Comp Metabolic Hxi655 K 4.7 mEq/L 12/13/2016 Comp Metabolic Jkw969 CL 102 mEq/L 12/13/2016 Comp Metabolic Gmq150 CO2 26.0 mEq/L 12/13/2016 Comp Metabolic Obr484 ANION GAP 13 12/13/2016 Comp Metabolic Qnd428 GLUCOSE 87 mg/dL 12/13/2016 Comp Metabolic Jyc949 Creat 0.9 mg/dL 12/13/2016 Comp Metabolic Oad196 eGFR 83 ml/min/1.73m2 12/13/2016 Comp Metabolic Geo539 BUN 17 mg/dL 12/13/2016 Comp Metabolic Pvz510 B/C Ratio 18.3 Ratio 12/13/2016 Comp Metabolic Iyx365 CALCIUM 9.1 mg/dL 12/13/2016 Comp Metabolic Dyi354 ALK PHOS 90 U/L 12/13/2016 Comp Metabolic Agk651 AST(SGOT) 22 U/L 12/13/2016 Comp Metabolic Gsu752 ALT(SGPT) 15 U/L 12/13/2016 Comp Metabolic Ktu996 BILI T 0.8 mg/dL 12/13/2016 Comp Metabolic Qku768 ALBUMIN 3.6 g/dL 12/13/2016 Comp Metabolic Aou919 TPRO 6.4 g/dL 12/13/2016 Comp Metabolic Vlc390 GLOB 2.9 g/dL 12/13/2016 Comp Metabolic Vlr108 A/G Ratio 1.2 Ratio 12/13/2016 Comp Metabolic Vfb328 Osmo 273 mOsmo 12/13/2016 Lipid Ord30 CHOL 182 mg/dL 12/13/2016 Lipid Ord30 HDL 64.0 mg/dl 12/13/2016 Lipid Ord30 TRIG 62 mg/dL 12/13/2016 Lipid Ord30 LDL 106 mg/dL 12/13/2016 Lipid Ord30 C/HDL 2.8 Ratio 12/13/2016 Ferritin Ord22 FERRITIN 434.7 ng/mL 12/13/2016 B12 Vdl051 B12 247.00 pg/ml 12/13/2016 Tibc Ord40 Iron [...] 33.7 pg 04/27/2016 Cbc With Differential Ord2 [place]% 13.7 % 04/27/2016 Cbc With Differential Ord2 [...] 3.22 K/ul 04/27/2016 Cbc With Differential Ord2 [place] ABS# 1.2 K/ul 04/27/2016 Cbc With Differential Ord2 Eos ABS# 0.3 K/ul 04/27/2016 Cbc With Differential Ord2 Baso ABS# 0.0 K/ul 04/27/2016 Comp Metabolic Djx460 NA 138 mEq/L 04/27/2016 Comp Metabolic Mvi504 K 4.3 mEq/L 04/27/2016 Comp Metabolic Xwq443 CL 104 mEq/L 04/27/2016 Comp Metabolic Qqy901 CO2 30.0 mEq/L 04/27/2016 Comp Metabolic Ofp327 ANION GAP 8 04/27/2016 Comp Metabolic Niq923 GLUCOSE 87 mg/dL 04/27/2016 Comp Metabolic Gss025 Creat 0.9 mg/dL 04/27/2016 Comp Metabolic Aku871 eGFR 82 ml/min/1.73m2 04/27/2016 Comp Metabolic Lqj656 BUN 13 mg/dL 04/27/2016 Comp Metabolic Dyx006 B/C Ratio 13.8 Ratio 04/27/2016 Comp Metabolic Thv638 CALCIUM 9.0 mg/dL 04/27/2016 Comp Metabolic Ikd103 ALK PHOS 62 U/L 04/27/2016 Comp Metabolic Vpw734 AST(SGOT) 24 U/L 04/27/2016 Comp Metabolic Jhv830 ALT(SGPT) 15 U/L 04/27/2016 Comp Metabolic Upv037 BILI T 0.7 mg/dL 04/27/2016 Comp Metabolic Sde249 ALBUMIN 3.6 g/dL 04/27/2016 Comp Metabolic Vss490 TPRO 6.1 g/dL 04/27/2016 Comp Metabolic Xbw377 GLOB 2.5 g/dL 04/27/2016 Comp Metabolic Yvn218 A/G Ratio 1.4 Ratio 04/27/2016 Comp Metabolic Iin291 Osmo 275 mOsmo 04/27/2016 B12 Uwb641 B12 >1500.00 pg/ml 04/27/2016 Iron Ord72 Iron [...] intact 11/28/2017 None Full Exam - General 1995 Constitutional general appearance Overall: well developed 10/10/2017 [...] right mid abdomen Procedures Procedure Codes Date VITAMIN B12 INJECTION CPT- 4: J3420 07/31/2018 THER/PROPH/DIAG INJ SC/IM CPT-4: 89509 07/31/2018 THER/PROPH/DIAG INJ SC/IM CPT-4: 94917 07/02/2018 VITAMIN B12 INJECTION CPT- 4: J3420 07/02/2018 THER/PROPH/DIAG INJ SC/IM CPT-4: 44067 05/31/2018 ADMIN INFLUENZA VIRUS VAC CPT-4: G0008 05/31/2018 VITAMIN B12 INJECTION CPT- 4: J3420 05/31/2018 FLU VACC PRSV FREE INC ANTIG Formatting Model/CDA Sections, Assigned to/Mary Grace Rosado CPT-4: 38986Icpvwbn 05/31/2018 VITAMIN B12 INJECTION CPT- 4: J3420 05/03/2018 THER/PROPH/DIAG INJ SC/IM CPT-4: 91118 05/03/2018 THER/PROPH/DIAG INJ SC/IM CPT-4: 73537 04/04/2018 VITAMIN B12 INJECTION CPT- 4: J3420 04/04/2018 THER/PROPH/DIAG INJ SC/IM CPT-4: 74474 03/05/2018 VITAMIN B12 INJECTION CPT- 4: J3420 03/05/2018 VITAMIN B12 INJECTION CPT- 4: J3420 01/30/2018 THER/PROPH/DIAG INJ SC/IM CPT-4: 99619 01/30/2018 THER/PROPH/DIAG INJ SC/IM CPT-4: 93019 01/01/2018 VITAMIN B12 INJECTION CPT- 4: J3420 01/01/2018 PPPS, SUBSEQ VISIT CPT- 4: G0439 12/18/2017 THER/PROPH/DIAG INJ SC/IM CPT-4: 75978 11/28/2017 VITAMIN B12 INJECTION CPT- 4: J3420 11/28/2017 THER/PROPH/DIAG INJ SC/IM CPT-4: 14661 10/24/2017 VITAMIN B12 INJECTION CPT- 4: J3420 10/24/2017 THER/PROPH/DIAG INJ SC/IM CPT-4: 23797 09/26/2017 VITAMIN B12 INJECTION CPT- 4: J3420 09/26/2017 THER/PROPH/DIAG INJ SC/IM CPT-4: 67804 08/10/2017 VITAMIN B12 INJECTION CPT- 4: J3420 08/10/2017 THER/PROPH/DIAG INJ SC/IM CPT-4: 55877 07/18/2017 VITAMIN B12 INJECTION CPT- 4: J3420 07/18/2017 THER/PROPH/DIAG INJ SC/IM CPT-4: 55642 05/16/2017 VITAMIN B12 INJECTION CPT- 4: J3420 05/16/2017 THER/PROPH/DIAG INJ SC/IM CPT-4: 84200 03/14/2017 VITAMIN B12 INJECTION CPT- 4: J3420 03/14/2017 TRIAMCINOLONE ACET INJ NOS CPT-4: J3301 01/12/2017 ROCEPHIN, PER 250 MG CPT- 4: J0696 01/12/2017 VITAMIN B12 INJECTION CPT- 4: J3420 01/12/2017 THER/PROPH/DIAG INJ SC/IM CPT-4: 23137 01/12/2017 PPPS, SUBSEQ VISIT CPT- 4: G0439 12/12/2016 PNEUMOCOCCAL VACC [address]: 43327605 CPT-4: 61293 12/12/2016 ADMIN PNEUMOCOCCAL VACCINE SNOMED CT: 85728321 CPT-4: G0009 12/12/2016 THER/PROPH/DIAG INJ SC/IM CPT-4: 54883 10/27/2016 VITAMIN B12 INJECTION CPT- 4: J3420 10/27/2016 THER/PROPH/DIAG INJ SC/IM CPT-4: 01401 07/27/2016 VITAMIN B12 INJECTION CPT- 4: J3420 07/27/2016 THER/PROPH/DIAG INJ SC/IM CPT-4: 21464 04/26/2016 VITAMIN B12 INJECTION CPT- 4: J3420 04/26/2016 Vital Signs Date Vital 08/15/2018 Blood Pressure 1: 144/66 Code: 8480-6 BMI: 25.1 Code: 77274-7 Heart Rate 1: 75 bpm Height: 5'7" SpO2: 98% Weight: 160 lbs 05/23/2018 Blood Pressure 1: 158/64 Code: 8480-6 BMI: 24.7 Code: 08019-2 Heart Rate 1: 76 bpm Height: 5'7" SpO2: 96% Temperature: 36.7 (C) / 98.1 (F) Weight: 158 lbs 05/03/2018 Blood Pressure 1: 122/72 Code: 8480-6 BMI: 25.1 Code: 70065-8 Heart Rate 1: 74 bpm Height: 5'7" SpO2: 97% Weight: 160 lbs 01/31/2018 Blood Pressure 1: 137/77 Code: 8480-6 Blood Pressure 2: 138/68 Code: 8480-6 Heart Rate 1: 67 bpm SpO2: 98% 01/30/2018 Blood Pressure 1: 138/66 Code: 8480-6 BMI: 25.1 Code: 38534-9 Heart Rate 1: 76 bpm Height: 5'7" SpO2: 94% Weight: 160 lbs 12/18/2017 Blood Pressure 1: 152/88 Code: 8480-6 BMI: 25.8 Code: 29181-4 Heart Rate 1: 68 bpm Height: 5'7" SpO2: 96% Weight: 165 lbs 11/28/2017 Blood Pressure 1: 150/76 Code: 8480-6 BMI: 25.2 Code: 74480-4 Heart Rate 1: 78 bpm Height: 5'7" SpO2: 98% Weight: 161 lbs 10/10/2017 Blood Pressure 1: 156/76 Code: 8480-6 BMI: 24.7 Code: 37670-0 Heart Rate 1: 71 bpm Height: 5'7" SpO2: 98% Weight: 158 lbs 09/26/2017 Blood Pressure 1: 162/82 Code: 8480-6 BMI: 24.7 Code: 48447-3 Heart Rate 1: 69 bpm Height: 5'7" SpO2: 99% Weight: 158 lbs 08/16/2017 Blood Pressure 1: 154/82 Code: 8480-6 BMI: 24.1 Code: 75748-3 Heart Rate 1: 58 bpm Height: 5'7" SpO2: 96% Weight: 154 lbs 07/18/2017 Blood Pressure 1: 152/88 Code: 8480-6 BMI: 25.2 Code: 13105-2 Heart Rate 1: 72 bpm Height: 5'7" SpO2: 98% Weight: 161 lbs 05/16/2017 Blood Pressure 1: 136/78 Code: 8480-6 BMI: 24.8 Code: 69118-8 Heart Rate 1: 71 bpm Height: 5'7" SpO2: 96% Weight: 158 lbs 8 oz 03/14/2017 Blood Pressure 1: 142/74 Code: 8480-6 BMI: 23.8 Code: 35024-8 Heart Rate 1: 69 bpm Height: 5'7" SpO2: 94% Weight: 152 lbs 01/12/2017 Blood Pressure 1: 156/90 Code: 8480-6 BMI: 23.4 Code: 91108-9 Heart Rate 1: 90 bpm Height: 5'7" SpO2: 97% Temperature: 37.4 (C) / 99.3 (F) Weight: 149 lbs 8 oz 12/12/2016 Blood Pressure 1: 140/78 Code: 8480-6 BMI: 24.3 Code: 40788-7 Heart Rate 1: 73 bpm Height: 5'7" SpO2: 96% Waist Measure (cm): 90 cm Weight: 155 lbs 12/08/2016 Blood Pressure 1: 148/84 Code: 8480-6 BMI: 24.3 Code: 07247-6 Heart Rate 1: 80 bpm Height: 5'7" SpO2: 96% Weight: 155 lbs 11/03/2016 Blood Pressure 1: 156/84 Code: 8480-6 Blood Pressure 2: 155/94 Code: 8480-6 BMI: 24.3 Code: 95179-8 Heart Rate 1: 81 bpm Height: 5'7" SpO2: 98% Weight: 155 lbs 10/06/2016 Blood Pressure 1: 175/95 Code: 8480-6 Heart Rate 1: 77 bpm Respiratory Rate: 16 bpm SpO2: 98% Temperature: 36.4 (C) / 97.5 (F) Weight: 157 lbs 09/06/2016 Blood Pressure 1: 136/80 Code: 8480-6 BMI: 24.1 Code: 08155-8 Heart Rate 1: 82 bpm Height: 5'8" SpO2: 97% Weight: 156 lbs 08/23/2016 Blood Pressure 1: 160/80 Code: 8480-6 BMI: 24.4 Code: 04413-1 Heart Rate 1: 88 bpm Height: 5'8" SpO2: 95% Weight: 158 lbs 04/26/2016 Blood Pressure 1: 156/74 Code: 8480-6 BMI: 24.5 Code: 91578-4 Heart Rate 1: 70 bpm Height: 5'8" [...] Encounters Encounter Performer Location Codes Date ( [id number] EST. PATIENT, LEVEL III Diagnosis: Essential (primary) hypertension[ICD10: I10] Andree Paris MD, [facility] CPT-4: 99991 08/15/2018 [id number] EST. PATIENT, LEVEL III Diagnosis: Dysphagia, pharyngoesophageal phase[ICD10: R13.14] Teresa Paris MD, [facility] CPT-4: 31609 05/23/2018 ([id number]) [id number] EST. PATIENT, LEVEL IV Diagnosis: Essential (primary) hypertension[ICD10: I10] Diagnosis: Chronic pain syndrome[ICD10: G89.4] Diagnosis: 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 deficiency[ICD10: D51.0] Diagnosis: Other iron deficiency anemias[ICD10: D50.8] Diagnosis: Slow transit constipation[ICD10: K59.01] Andree Paris MD, [facility] CPT-4: 73742 05/03/2018 ([id number]) Miscellaneous no charge Diagnosis: Essential (primary) hypertension[ICD10: I10] Teresa Paris MD, [facility] CPT-4: 44028 01/31/2018 ([id number]) 41621 EST. PATIENT, LEVEL IV Diagnosis: Essential (primary) hypertension[ICD10: I10] Diagnosis: Chronic pain syndrome[ICD10: G89.4] Andree Paris MD, [facility] CPT- 4: 78678 01/30/2018 ([id number]) 87339 EST. PATIENT, LEVEL IV Diagnosis: Essential (primary) hypertension[ICD10: I10] Diagnosis: Chronic pain syndrome[ICD10: G89.4] Diagnosis: 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 deficiency[ICD10: D51.0] Diagnosis: Iron deficiency anemia, unspecified[ICD10: D50.9] Ana Paris MD, [facility] CPT-4: 45377 11/28/2017 34723 EST. PATIENT, LEVEL IV Diagnosis: Essential (primary) hypertension[ICD10: I10] Diagnosis: Slow transit constipation[ICD10: K59.01] Diagnosis: Chronic pain syndrome[ICD10: G89.4] Teresa Paris MD, [facility] CPT- 4: 08419 10/10/2017 [id number] EST. PATIENT, LEVEL IV Diagnosis: 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 deficiency[ICD10: D51.0] Diagnosis: Essential (primary) hypertension[ICD10: I10] Diagnosis: Chronic pain syndrome[ICD10: G89.4] Teresa Paris MD, [facility] CPT- 4: 48176 09/26/2017 18299 EST. PATIENT, LEVEL III Diagnosis: Dysphagia, pharyngoesophageal phase[ICD10: R13.14] Teresa Paris MD, [facility] CPT-4: 06056 08/16/2017 ([id number]) 75568 EST. PATIENT, LEVEL IV Diagnosis: Essential (primary) hypertension[ICD10: I10] Diagnosis: Chronic pain syndrome[ICD10: G89.4] Diagnosis: 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 deficiency[ICD10: D51.0] Diagnosis: Iron deficiency anemia, unspecified[ICD10: D50.9] Diagnosis: Dysphagia, pharyngoesophageal phase[ICD10: R13.14] Ana Paris MD, [facility] CPT-4: 15357 07/18/2017 ([id number]) 74631 EST. PATIENT, LEVEL III Diagnosis: Essential (primary) hypertension[ICD10: I10] Diagnosis: Chronic pain syndrome[ICD10: G89.4] Diagnosis: 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 deficiency[ICD10: D51.0] Ana Paris MD, [facility] CPT-4: 77134 05/16/2017 ([id number]) 63596 EST. PATIENT, LEVEL III Diagnosis: Essential (primary) hypertension[ICD10: I10] Diagnosis: Chronic pain syndrome[ICD10: G89.4] Diagnosis: 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 deficiency[ICD10: D51.0] Ana Paris MD, [facility] CPT-4: 71094 03/14/2017 ([id number]) 89254 EST. PATIENT, LEVEL III Diagnosis: Cough[ICD10: R05] Diagnosis: Acute bronchitis, unspecified[ICD10: J20.9] Diagnosis: Chronic pain syndrome[ICD10: G89.4] Diagnosis: 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 deficiency[ICD10: D51.0] Ana Paris MD, [facility] CPT-4: 93468 01/12/2017 ([id number]) 86833 EST. PATIENT, LEVEL III Diagnosis: Essential (primary) hypertension[ICD10: I10] Diagnosis: Chronic pain syndrome[ICD10: G89.4] Ana Paris MD, [facility] CPT-4: 08482 12/08/2016 ([id number]) 56123 EST. PATIENT, LEVEL III Diagnosis: Essential (primary) hypertension[ICD10: I10] Ana Paris MD, [facility] CPT-4: 77005 11/03/2016 ([id number]) 34671 EST. PATIENT, LEVEL III Diagnosis: Essential (primary) hypertension[ICD10: I10] Ana Paris MD, [facility] CPT-4: 10783 10/06/2016 ([id number]) 71678 EST. PATIENT, LEVEL III Diagnosis: Essential (primary) hypertension[ICD10: I10] Ana Paris MD, [facility] CPT-4: 44619 09/06/2016 ([id number]) 48955 EST. PATIENT, LEVEL III Diagnosis: Essential (primary) hypertension[ICD10: I10] Ana Paris MD, [facility] CPT-4: 48946 08/23/2016 ([id number]) OFFICE VISIT, NEW - LEVEL 4 Diagnosis: Noninfective gastroenteritis and colitis, unspecified[ICD10: K52.9] Diagnosis: 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 deficiency[ICD10: D51.0] Diagnosis: Iron deficiency anemia, unspecified[ICD10: D50.9] Diagnosis: Chalazion left upper eyelid[ICD10: H00.14] Diagnosis: Elevated blood-pressure reading, without diagnosis of hypertension[ICD10: R03.0] [facility] CPT-4: 18802 04/26/2016 Plan of Care Planned Activity Notes [...] consider decreasing or stopping his amlodipine 08/15/2018 Patient Education: Patient Medication Summary Completed [...] treatment plan. 05/23/2018 Appointment: Teresa Bardales WPtel: [address] [place], [place] [id number] (15 min) Moderate 05/23/2018 Patient Education: Patient [...] management. 05/03/2018 App[facility]ment[id number] ([facility] min) Moderate 05/03/2018 Patient Education: Patient [...] over-medication. 01/30/2018 Appointment: [phone] (15 min) Moderate 01/30/2018 Patient Education: Patient [...] concerns. 12/18/2017 [phone] [facility] - Annual Wellness Visit 12/18/2017 Patient Education: [...] over-medication. Iron def-check labs 11/28/2017 App[facility]ment[phone] [phone] (30 min) Complex 11/28/2017 Patient Education: [...] this regimen. 10/10/2017 Appointment: Teresa Bardales WPtel: [phone] (30 min) Complex 10/10/2017 Patient Education: Patient [...] over-medication. 09/26/2017 Appointment: Teresa Bardales WPtel: [facility] [place] (30 min) Complex 09/26/2017 Patient Education: Patient Medication Summary Completed 09/26/2017 Appointment: Teresa Bardales WPtel: [facility] (30 min) Complex 09/19/2017 Referral: External, Ordering Provider Referral Appointment Confirmed 08/17/2017 Visit Plan: Dysphagia - worsening since yesterday - will refer to Dr. Harper for possible EGD - pt is to notify clinic if symptoms do not improve, if they worsen, or with any acute changes, questions, or concerns. 08/16/2017 Appointment: Teresa Bardales WPtel: [phone] [phone] (30 min) Complex 08/16/2017 Patient Education: Patient Medication Summary Completed 08/16/2017 Care Plan: Referral Order SNOMED-CT : [id number] Pending 08/16/2017 Appointment: Injection 08/10/2017 Patient Education: [...] first 07/18/2017 Appointment: Ana Pedraza WPtel: [phone] (30 min) Complex 07/18/2017 Patient Education: Patient [...] of over-medication. 05/16/2017 Appointment: Ana Pedraza WPtel: [phone] [phone] (30 min) Complex 05/16/2017 Patient Education: Patient [...] over-medication. 03/14/2017 Appointment: Ana Pedraza WPtel: [facility] [address] (30 min) Complex 03/14/2017 Patient Education: [...] of over-medication. 01/12/2017 Appointment: Ana Pedraza WPtel: [phone] [phone] (30 min) Complex 01/12/2017 Patient Education: Patient [...] surrogate. 12/12/2016 Appointment: Ana Pedraza WPtel: [phone] [facility] - Annual Wellness Visit 12/12/2016 Patient Education: [...] over-medication. 12/08/2016 Appointment: Ana Pedraza WPtel: [phone] (30 min) [facility] 12/08/2016 Patient Education: Patient Medication Summary Completed [...] concerns. 11/03/2016 App[facility]ment: [phone] (30 min) Complex 11/03/2016 Patient Education: [...] concerns. 10/06/2016 App[facility]ment: [phone] [phone] (30 min) Complex 10/06/2016 Patient Education: [...] concerns. 09/06/2016 Appointment: [facility] [phone] [phone] (30 min) Complex 09/06/2016 Patient Education: [...] concerns. 08/23/2016 App[facility]ment: [phone] [phone] (15 min) Moderate 08/23/2016 Patient Education: [...] gentamycin. 04/26/2016 Appointment: [phone] New Patient 04/26/2016 Patient Education: Patient Medication [...]
--- OUTSIDE RECORDS SUMMARY | 2019-02-13 09:55 | XMS REPORT | CCD ---
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 Phone PP Unavailable CCM Unavailable Summary Purpose Interface Exchange Insurance Providers Payer name Policy type / Coverage type Covered alliance party ID Effective Begin Date Effective End Date WPS Medicare Part B Medicare Part B [id number] Unknown Unknown FOR LIFE WPS Medicare Part B [id number] Unknown Unknown Family history Father Diagnosis Age At Onset No Known Diseases N/A Mother Diagnosis Age At Onset No Known Diseases N/A Social History Social History Element Codes Description Effective Dates Marital status Unknown 04/26/2016 Number of children Unknown 3 04/26/2016 Employment Unknown Retired 04/26/[address]: 4771339 Former smoker Quit 1968 04/26/[address]: 753628 Currently drinks alcohol 04/26/2016 Has the patient [...] (vit B-12) 1,000 mcg/mL injection solution RxNorm: 891242 Milliliter(s) Inj 07/31/2018 07/31/2018 Inactive morphine ER 30 mg tablet,extended release RxNorm: 795889 1 Tablet(s) PO daily 07/31/2018 08/29/2018 Active amlodipine 5 mg tablet RxNorm: 038271 1 Tablet(s) PO QPM 07/11/2018 01/06/2019 Active cyanocobalamin (vit B-12) 1,000 mcg/mL injection solution RxNorm: 728282 1 Milliliter(s) Inj 07/02/2018 07/02/2018 Inactive morphine ER 30 mg tablet,extended release RxNorm: 424490 1 Tablet(s) PO daily 07/02/2018 07/30/2018 Inactive morphine ER 30 mg tablet,extended release RxNorm: 437265 1 Tablet(s) PO daily 05/31/2018 06/29/2018 Inactive cyanocobalamin (vit B-12) 1,000 mcg/mL injection solution RxNorm: 263944 Milliliter(s) Inj 05/31/2018 05/31/2018 Inactive Protonix 40 mg tablet,delayed release RxNorm: 155079 1 Tablet(s) PO daily 05/23/2018 06/21/2018 Inactive Carafate 1 gram tablet RxNorm: 288245 1 Tablet(s) PO AC & HS as needed 05/23/2018 06/21/2018 Inactive cyanocobalamin (vit B-12) 1,000 mcg/mL injection solution RxNorm: 311016 1 Milliliter(s) Inj 05/03/2018 05/03/2018 Inactive morphine ER 30 mg tablet,extended release RxNorm: 054830 1 Tablet(s) PO daily 04/04/2018 05/03/2018 Inactive cyanocobalamin (vit B-12) 1,000 mcg/mL injection solution RxNorm: 740290 1 Milliliter(s) Inj 04/04/2018 04/04/2018 Inactive cyanocobalamin (vit B-12) 1,000 mcg/mL injection solution RxNorm: 967823 1 Milliliter(s) Inj 03/05/2018 03/05/2018 Inactive morphine ER 30 mg tablet,extended release RxNorm: 493567 1 Tablet(s) PO daily 03/05/2018 04/03/2018 Inactive cyanocobalamin (vit B-12) 1,000 mcg/mL injection solution RxNorm: 903685 1 Milliliter(s) Inj 01/30/2018 01/30/2018 Inactive cyanocobalamin (vit B-12) 1,000 mcg/mL injection solution RxNorm: 110881 1 Milliliter(s) Inj 01/01/2018 01/01/2018 Inactive morphine ER 30 mg tablet,extended release RxNorm: 452109 1 Tablet(s) PO daily 01/01/2018 01/30/2018 Inactive lisinopril 20 mg tablet RxNorm: 419986 1 Tablet(s) PO BID 12/18/2017 12/12/2018 Active amlodipine 5 mg tablet RxNorm: 725710 1 Tablet(s) PO QPM 12/18/2017 06/15/2018 Inactive cyanocobalamin (vit B-12) 1,000 mcg/mL injection solution RxNorm: 188106 1 Milliliter(s) Inj 11/28/2017 11/28/2017 Inactive morphine ER 30 mg tablet,extended release RxNorm: 528735 1 Tablet(s) PO daily 11/28/2017 12/27/2017 Inactive morphine ER 30 mg tablet,extended release RxNorm: 564193 1 Tablet(s) PO daily 11/09/2017 11/27/2017 Inactive cyanocobalamin (vit B-12) 1,000 mcg/mL injection solution RxNorm: 398010 1 Milliliter(s) Inj 10/24/2017 10/24/2017 Inactive morphine ER 30 mg tablet,extended release RxNorm: 098785 1 Tablet(s) PO daily 10/10/2017 11/08/2017 Inactive hydrochlorothiazide 25 mg tablet RxNorm: 383579 1 Tablet(s) PO daily 10/10/2017 11/08/2017 Inactive cyanocobalamin (vit B-12) 1,000 mcg/mL injection solution RxNorm: 090156 1 Milliliter(s) Inj 09/26/2017 09/26/2017 Inactive hydrochlorothiazide 12.5 mg tablet RxNorm: 450387 1 Tablet(s) PO daily 09/26/2017 10/25/2017 Inactive morphine ER 30 mg tablet,extended release RxNorm: 386525 1 Tablet(s) PO daily 09/12/2017 10/09/2017 Inactive cyanocobalamin (vit B-12) 1,000 mcg/mL injection solution RxNorm: 467012 1 Milliliter(s) Inj 08/10/2017 08/10/2017 Inactive morphine ER 30 mg tablet,extended release RxNorm: 838609 1 Tablet(s) PO daily 08/10/2017 09/08/2017 Inactive Vitamin B-12 1,000 mcg/mL injection solution RxNorm: 324611 1 Milliliter(s) Inj month 07/21/2017 No Stop Date Active B12 INJECTIONS MONTHLY cyanocobalamin (vit B-12) 1,000 mcg/mL injection solution RxNorm: 104224 1 Milliliter(s) Inj 07/18/2017 07/18/2017 Inactive morphine ER 30 mg tablet,extended release RxNorm: 627888 1 Tablet(s) PO daily 07/13/2017 08/09/2017 Inactive morphine ER 30 mg tablet,extended release RxNorm: 643355 1 Tablet(s) PO daily 06/15/2017 07/12/2017 Inactive cyanocobalamin (vit B-12) 1,000 mcg/mL injection solution RxNorm: 520368 1 Milliliter(s) Inj 05/16/2017 05/16/2017 Inactive morphine ER 30 mg tablet,extended release RxNorm: 619629 1 Tablet(s) PO daily 04/13/2017 05/12/2017 Inactive cyanocobalamin (vit B-12) 1,000 mcg/mL injection solution RxNorm: 706634 1 Milliliter(s) Inj 03/14/2017 03/14/2017 Inactive morphine ER 30 mg tablet,extended release RxNorm: 544243 1 Tablet(s) PO daily 03/14/2017 04/12/2017 Inactive morphine ER 30 mg tablet,extended release RxNorm: 196215 1 Tablet(s) PO daily 02/13/2017 03/13/2017 Inactive Kenalog 40 mg/mL suspension for injection RxNorm: 6699413 1 Milliliter(s) Inj 01/12/2017 01/12/2017 Inactive cyanocobalamin (vit B-12) 1,000 mcg/mL injection solution RxNorm: 269388 1 Milliliter(s) Inj 01/12/2017 01/12/2017 Inactive Zithromax Z-[place] 250 mg tablet RxNorm: 515607 1 Tablet(s) PO UD 01/12/2017 01/16/2017 Inactive ceftriaxone 500 mg solution for injection RxNorm: 4337535 1 Milliliter(s) Inj 01/12/2017 01/12/2017 Inactive Vitamin B-12 1,000 mcg/mL injection solution RxNorm: 317500 1 Milliliter(s) Inj EVERY OTHER MONTH 01/04/2017 07/20/2017 Inactive lisinopril 20 mg tablet RxNorm: 602375 1 Tablet(s) PO BID 01/02/2017 12/17/2017 Inactive lisinopril 20 mg tablet RxNorm: 770850 1 Tablet(s) PO BID 12/12/2016 01/01/2017 Inactive morphine ER 30 mg tablet,extended release RxNorm: 933564 1 Tablet(s) PO daily 12/08/2016 01/06/2017 Inactive lisinopril 20 mg tablet RxNorm: 085845 1 Tablet(s) PO BID 11/03/2016 12/11/2016 Inactive morphine ER 30 mg tablet,extended release RxNorm: 830910 1 Tablet(s) PO daily 11/03/2016 12/02/2016 Inactive cyanocobalamin (vit B-12) 1,000 mcg/mL injection solution RxNorm: 951321 1 Milliliter(s) Inj 10/27/2016 10/27/2016 Inactive lisinopril 10 mg tablet RxNorm: 714147 1 Tablet(s) PO BID 10/06/2016 11/02/2016 Inactive lisinopril 10 mg tablet RxNorm: 377422 1 Tablet(s) PO daily 09/06/2016 10/05/2016 Inactive morphine ER 30 mg tablet,extended release RxNorm: 217006 1 Tablet(s) PO daily 08/18/2016 09/16/2016 Inactive cyanocobalamin (vit B-12) 1,000 mcg/mL injection solution RxNorm: 411964 Milliliter(s) Inj 07/27/2016 07/27/2016 Inactive morphine ER 30 mg tablet,extended release RxNorm: 397865 1 Tablet(s) PO daily 07/21/2016 08/17/2016 Inactive morphine ER 30 mg tablet,extended release RxNorm: 796715 1 Tablet(s) PO daily 06/20/2016 07/19/2016 Inactive morphine ER 30 mg tablet,extended release RxNorm: 283059 1 Tablet(s) PO daily 05/20/2016 06/19/2016 Inactive cyanocobalamin (vit B-12) 1,000 mcg/mL injection solution RxNorm: 246425 1 Milliliter(s) Inj 04/26/2016 04/26/2016 Inactive gentamicin 0.3 % eye drops RxNorm: 969220 2 Drop(s) OPH Q4H 04/26/2016 05/02/2016 Inactive Venofer intravenous RxNorm: 87880 intravenous No Start Date Active Vitamin B-12 1,000 mcg/mL injection solution RxNorm: 907115 1 Milliliter(s) Inj EVERY 3 MONTHS No Start Date 01/03/2017 Inactive Claritin 10 mg tablet RxNorm: 666006 1 Tablet(s) PO daily No Start Date 07/17/2017 Inactive morphine ER 30 mg tablet,extended release RxNorm: 840902 1 Tablet(s) PO daily No Start Date 04/25/2016 Inactive Medication Administered Medication Codes Instructions Start Date Status cyanocobalamin (vit B-12) 1,000 mcg/mL injection solution RxNorm: 529401 Milliliter 07/31/2018 Active cyanocobalamin (vit B-12) 1,000 mcg/mL injection solution RxNorm: 259819 1Milliliter 07/02/2018 No longer Active cyanocobalamin (vit B-12) 1,000 mcg/mL injection solution RxNorm: 330832 Milliliter 05/31/2018 No longer Active cyanocobalamin (vit B-12) 1,000 mcg/mL injection solution RxNorm: 741807 1Milliliter 05/03/2018 No longer Active cyanocobalamin (vit B-12) 1,000 mcg/mL injection solution RxNorm: 017504 1Milliliter 04/04/2018 No longer Active cyanocobalamin (vit B-12) 1,000 mcg/mL injection solution RxNorm: 318348 1Milliliter 03/05/2018 No longer Active cyanocobalamin (vit B-12) 1,000 mcg/mL injection solution RxNorm: 897029 1Milliliter 01/30/2018 No longer Active cyanocobalamin (vit B-12) 1,000 mcg/mL injection solution RxNorm: 471788 1Milliliter 01/01/2018 No longer Active cyanocobalamin (vit B-12) 1,000 mcg/mL injection solution RxNorm: 312116 1Milliliter 11/28/2017 No longer Active cyanocobalamin (vit B-12) 1,000 mcg/mL injection solution RxNorm: 617665 1Milliliter 10/24/2017 No longer Active cyanocobalamin (vit B-12) 1,000 mcg/mL injection solution RxNorm: 154050 1Milliliter 09/26/2017 No longer Active cyanocobalamin (vit B-12) 1,000 mcg/mL injection solution RxNorm: 805115 1Milliliter 08/10/2017 No longer Active cyanocobalamin (vit B-12) 1,000 mcg/mL injection solution RxNorm: 935447 1Milliliter 07/18/2017 No longer Active cyanocobalamin (vit B-12) 1,000 mcg/mL injection solution RxNorm: 357722 1Milliliter 05/16/2017 No longer Active cyanocobalamin (vit B-12) 1,000 mcg/mL injection solution RxNorm: 022317 1Milliliter 03/14/2017 No longer Active Kenalog 40 mg/mL suspension for injection RxNorm: 2337875 1Milliliter 01/12/2017 No longer Active cyanocobalamin (vit B-12) 1,000 mcg/mL injection solution RxNorm: 313201 1Milliliter 01/12/2017 No longer Active ceftriaxone 500 mg solution for injection RxNorm: 4362503 1Milliliter 01/12/2017 No longer Active cyanocobalamin (vit B-12) 1,000 mcg/mL injection solution RxNorm: 819189 1Milliliter 10/27/2016 No longer Active cyanocobalamin (vit B-12) 1,000 mcg/mL injection solution RxNorm: 273052 Milliliter 07/27/2016 No longer Active cyanocobalamin (vit B-12) 1,000 mcg/mL injection solution RxNorm: 146445 1Milliliter 04/26/2016 No longer Active Immunizations Vaccine Codes Date Status Influenza CVX: 141 05/31/2018 completed Pneumococcal (Adult) CVX: 133 12/12/2016 completed Assessments Condition Codes Effective Dates 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-10: D51.0 ICD-9: 281.0 07/31/2018 Encounter for immunization ICD-10: Z23 ICD-9: V03.89 05/31/2018 Dysphagia, pharyngoesophageal phase ICD-10: R13.14 ICD-9: 787.24 05/23/2018 Essential (primary) hypertension ICD-10: I10 ICD-9: 401.1 05/03/2018 Slow transit constipation ICD-10: K59.01 ICD-9: 564.01 [...] Visit Reason For Visit Effective Dates Notes sore throat 05/23/2018 hypertension 05/03/2018 hypertension 01/30/2018 [...] 14.8 g/dl 11/28/2017 Cbc With Differential Ord2 Neut% 50.2 % 11/28/2017 Cbc With Differential Ord2 HCT 44.3 % 11/28/2017 Cbc With Differential Ord2 MCV 98.4 fl 11/28/2017 Cbc With Differential Ord2 Lymph% 33.1 % 11/28/2017 Cbc With Differential Ord2 MCH 32.9 pg 11/28/2017 Cbc With Differential Ord2 [place]% 12.6 % 11/28/2017 Cbc With Differential Ord2 [...] 2.87 K/ul 11/28/2017 Cbc With Differential Ord2 [place] ABS# 1.1 K/ul 11/28/2017 Cbc With Differential Ord2 Eos ABS# 0.3 K/ul 11/28/2017 Cbc With Differential Ord2 Baso ABS# 0.0 K/ul 11/28/2017 B12 Pdm319 B12 >1500.00 pg/ml 11/28/2017 Comp Metabolic Jqr775 NA 139 mEq/L 11/28/2017 Comp Metabolic Vdq933 K 5.2 mEq/L 11/28/2017 Comp Metabolic Ruo233 CL 106 mEq/L 11/28/2017 Comp Metabolic Pvk942 CO2 28.0 mEq/L 11/28/2017 Comp Metabolic Usa124 ANION GAP 10 11/28/2017 Comp Metabolic Mxd034 GLUCOSE 89 mg/dL 11/28/2017 Comp Metabolic Dwc281 Creat 1.1 mg/dL 11/28/2017 Comp Metabolic Msv896 eGFR 66 ml/min/1.73m2 11/28/2017 Comp Metabolic Vxb543 BUN 18 mg/dL 11/28/2017 Comp Metabolic Bpf194 B/C Ratio 16.1 Ratio 11/28/2017 Comp Metabolic Qgk517 CALCIUM 9.2 mg/dL 11/28/2017 Comp Metabolic Zvc443 ALK PHOS 89 U/L 11/28/2017 Comp Metabolic Lrw087 AST(SGOT) 22 U/L 11/28/2017 Comp Metabolic Hib457 ALT(SGPT) 15 U/L 11/28/2017 Comp Metabolic Fju349 BILI T 0.6 mg/dL 11/28/2017 Comp Metabolic Roe701 ALBUMIN 3.9 g/dL 11/28/2017 Comp Metabolic Owd471 TPRO 6.5 g/dL 11/28/2017 Comp Metabolic Zcu045 GLOB 2.6 g/dL 11/28/2017 Comp Metabolic Iky095 A/G Ratio 1.5 Ratio 11/28/2017 Comp Metabolic Mxi049 Osmo 279 mOsmo 11/28/2017 Ferritin Ord22 FERRITIN [...] 33.7 pg 07/18/2017 Cbc With Differential Ord2 [place]% 12.3 % 07/18/2017 Cbc With Differential Ord2 [...] 2.90 K/ul 07/18/2017 Cbc With Differential Ord2 [place] ABS# 1.1 K/ul 07/18/2017 Cbc With Differential Ord2 Eos ABS# 0.2 K/ul 07/18/2017 Cbc With Differential Ord2 Baso ABS# 0.0 K/ul 07/18/2017 Comp Metabolic Raw990 NA 140 mEq/L 07/18/2017 Comp Metabolic Zgm430 K 4.6 mEq/L 07/18/2017 Comp Metabolic Gqn606 CL 105 mEq/L 07/18/2017 Comp Metabolic Pwk607 CO2 29.0 mEq/L 07/18/2017 Comp Metabolic Cto953 ANION GAP 11 07/18/2017 Comp Metabolic Klk176 GLUCOSE 96 mg/dL 07/18/2017 Comp Metabolic Lft129 Creat 1.0 mg/dL 07/18/2017 Comp Metabolic Vur658 eGFR 73 ml/min/1.73m2 07/18/2017 Comp Metabolic Gxn751 BUN 12 mg/dL 07/18/2017 Comp Metabolic Wss916 B/C Ratio 11.7 Ratio 07/18/2017 Comp Metabolic Xpi293 CALCIUM 9.2 mg/dL 07/18/2017 Comp Metabolic Sml653 ALK PHOS 74 U/L 07/18/2017 Comp Metabolic Ixx781 AST(SGOT) 29 U/L 07/18/2017 Comp Metabolic Olc593 ALT(SGPT) 16 U/L 07/18/2017 Comp Metabolic Ogb701 BILI T 0.7 mg/dL 07/18/2017 Comp Metabolic Iur259 ALBUMIN 3.7 g/dL 07/18/2017 Comp Metabolic Teb032 TPRO 6.5 g/dL 07/18/2017 Comp Metabolic Eex859 GLOB 2.8 g/dL 07/18/2017 Comp Metabolic Zgm321 A/G Ratio 1.3 Ratio 07/18/2017 Comp Metabolic Fpv350 Osmo 279 mOsmo 07/18/2017 Iron Ord72 Iron 114 ug/dl 07/18/2017 B12 Esq867 B12 233.00 pg/ml 07/18/2017 Tsh Ord6 hTSH [...] 33.3 pg 12/13/2016 Cbc With Differential Ord2 [place]% 17.9 % 12/13/2016 Cbc With Differential Ord2 [...] 2.71 K/ul 12/13/2016 Cbc With Differential Ord2 [place] ABS# 1.7 K/ul 12/13/2016 Cbc With Differential Ord2 Eos ABS# 0.3 K/ul 12/13/2016 Cbc With Differential Ord2 Baso ABS# 0.0 K/ul 12/13/2016 Comp Metabolic Lto978 NA 136 mEq/L 12/13/2016 Comp Metabolic Aij027 K 4.7 mEq/L 12/13/2016 Comp Metabolic Nus308 CL 102 mEq/L 12/13/2016 Comp Metabolic Xqd226 CO2 26.0 mEq/L 12/13/2016 Comp Metabolic Gxn254 ANION GAP 13 12/13/2016 Comp Metabolic Znr269 GLUCOSE 87 mg/dL 12/13/2016 Comp Metabolic Phf855 Creat 0.9 mg/dL 12/13/2016 Comp Metabolic Nuy306 eGFR 83 ml/min/1.73m2 12/13/2016 Comp Metabolic Rcm898 BUN 17 mg/dL 12/13/2016 Comp Metabolic Ohz675 B/C Ratio 18.3 Ratio 12/13/2016 Comp Metabolic Jom945 CALCIUM 9.1 mg/dL 12/13/2016 Comp Metabolic Waj833 ALK PHOS 90 U/L 12/13/2016 Comp Metabolic Gup028 AST(SGOT) 22 U/L 12/13/2016 Comp Metabolic Ovy142 ALT(SGPT) 15 U/L 12/13/2016 Comp Metabolic Irr420 BILI T 0.8 mg/dL 12/13/2016 Comp Metabolic Nab162 ALBUMIN 3.6 g/dL 12/13/2016 Comp Metabolic Hpx485 TPRO 6.4 g/dL 12/13/2016 Comp Metabolic Jua686 GLOB 2.9 g/dL 12/13/2016 Comp Metabolic Kau038 A/G Ratio 1.2 Ratio 12/13/2016 Comp Metabolic Lef671 Osmo 273 mOsmo 12/13/2016 Lipid Ord30 CHOL 182 mg/dL 12/13/2016 Lipid Ord30 HDL 64.0 mg/dl 12/13/2016 Lipid Ord30 TRIG 62 mg/dL 12/13/2016 Lipid Ord30 LDL 106 mg/dL 12/13/2016 Lipid Ord30 C/HDL 2.8 Ratio 12/13/2016 Ferritin Ord22 FERRITIN 434.7 ng/mL 12/13/2016 B12 Czx699 B12 247.00 pg/ml 12/13/2016 Tibc Ord40 Iron [...] 33.7 pg 04/27/2016 Cbc With Differential Ord2 [place]% 13.7 % 04/27/2016 Cbc With Differential Ord2 [...] 3.22 K/ul 04/27/2016 Cbc With Differential Ord2 [place] ABS# 1.2 K/ul 04/27/2016 Cbc With Differential Ord2 Eos ABS# 0.3 K/ul 04/27/2016 Cbc With Differential Ord2 Baso ABS# 0.0 K/ul 04/27/2016 Comp Metabolic Qmx324 NA 138 mEq/L 04/27/2016 Comp Metabolic Isu218 K 4.3 mEq/L 04/27/2016 Comp Metabolic Ass805 CL 104 mEq/L 04/27/2016 Comp Metabolic Kiu623 CO2 30.0 mEq/L 04/27/2016 Comp Metabolic Xrc970 ANION GAP 8 04/27/2016 Comp Metabolic Uzt344 GLUCOSE 87 mg/dL 04/27/2016 Comp Metabolic Hgr048 Creat 0.9 mg/dL 04/27/2016 Comp Metabolic Xrx594 eGFR 82 ml/min/1.73m2 04/27/2016 Comp Metabolic Ggj410 BUN 13 mg/dL 04/27/2016 Comp Metabolic Qkf272 B/C Ratio 13.8 Ratio 04/27/2016 Comp Metabolic Dqi830 CALCIUM 9.0 mg/dL 04/27/2016 Comp Metabolic Oot107 ALK PHOS 62 U/L 04/27/2016 Comp Metabolic Acj450 AST(SGOT) 24 U/L 04/27/2016 Comp Metabolic Rvr977 ALT(SGPT) 15 U/L 04/27/2016 Comp Metabolic Mhw048 BILI T 0.7 mg/dL 04/27/2016 Comp Metabolic Oyj721 ALBUMIN 3.6 g/dL 04/27/2016 Comp Metabolic Bcw380 TPRO 6.1 g/dL 04/27/2016 Comp Metabolic Jdd311 GLOB 2.5 g/dL 04/27/2016 Comp Metabolic Yrd531 A/G Ratio 1.4 Ratio 04/27/2016 Comp Metabolic Pqh863 Osmo 275 mOsmo 04/27/2016 B12 Sqp212 B12 >1500.00 pg/ml 04/27/2016 Iron Ord72 Iron 104 ug/dl 04/27/2016 Lipid Ord30 CHOL 178 mg/dL 04/27/2016 Lipid Ord30 HDL 70.0 mg/dl 04/27/2016 Lipid Ord30 TRIG 57 mg/dL 04/27/2016 Lipid Ord30 LDL 97 mg/dL 04/27/2016 Lipid Ord30 C/HDL 2.5 Ratio 04/27/2016 Tsh Ord6 hTSH II 1.89 uIU/mL 04/27/2016 Review of Systems System Result Effective Dates Constitutional No recent illness 05/23/2018 Constitutional No [...] 4: J3420 07/31/2018 THER/PROPH/DIAG INJ SC/IM CPT-4: 49353 07/31/2018 THER/PROPH/DIAG INJ SC/IM CPT-4: 98270 07/02/2018 VITAMIN B12 INJECTION CPT- 4: J3420 07/02/2018 THER/PROPH/DIAG INJ SC/IM CPT-4: 94374 05/31/2018 ADMIN INFLUENZA VIRUS VAC CPT-4: G0008 05/31/2018 VITAMIN B12 INJECTION CPT- 4: J3420 05/31/2018 FLU VACC PRSV FREE INC ANTIG Formatting Model/CDA Sections, Assigned to/Mary Grace Rosado CPT-4: 45864Enumxiu 05/31/2018 VITAMIN B12 INJECTION CPT- 4: J3420 05/03/2018 THER/PROPH/DIAG INJ SC/IM CPT-4: 33038 05/03/2018 THER/PROPH/DIAG INJ SC/IM CPT-4: 02748 04/04/2018 VITAMIN B12 INJECTION CPT- 4: J3420 04/04/2018 THER/PROPH/DIAG INJ SC/IM CPT-4: 40691 03/05/2018 VITAMIN B12 INJECTION CPT- 4: J3420 03/05/2018 VITAMIN B12 INJECTION CPT- 4: J3420 01/30/2018 THER/PROPH/DIAG INJ SC/IM CPT-4: 86104 01/30/2018 THER/PROPH/DIAG INJ SC/IM CPT-4: 60902 01/01/2018 VITAMIN B12 INJECTION CPT- 4: J3420 01/01/2018 PPPS, SUBSEQ VISIT CPT- 4: G0439 12/18/2017 THER/PROPH/DIAG INJ SC/IM CPT-4: 34860 11/28/2017 VITAMIN B12 INJECTION CPT- 4: J3420 11/28/2017 THER/PROPH/DIAG INJ SC/IM CPT-4: 20288 10/24/2017 VITAMIN B12 INJECTION CPT- 4: J3420 10/24/2017 THER/PROPH/DIAG INJ SC/IM CPT-4: 72228 09/26/2017 VITAMIN B12 INJECTION CPT- 4: J3420 09/26/2017 THER/PROPH/DIAG INJ SC/IM CPT-4: 53707 08/10/2017 VITAMIN B12 INJECTION CPT- 4: J3420 08/10/2017 THER/PROPH/DIAG INJ SC/IM CPT-4: 74607 07/18/2017 VITAMIN B12 INJECTION CPT- 4: J3420 07/18/2017 THER/PROPH/DIAG INJ SC/IM CPT-4: 82929 05/16/2017 VITAMIN B12 INJECTION CPT- 4: J3420 05/16/2017 THER/PROPH/DIAG INJ SC/IM CPT-4: 52171 03/14/2017 VITAMIN B12 INJECTION CPT- 4: J3420 03/14/2017 TRIAMCINOLONE ACET INJ NOS CPT-4: J3301 01/12/2017 ROCEPHIN, PER 250 MG CPT- 4: J0696 01/12/2017 VITAMIN B12 INJECTION CPT- 4: J3420 01/12/2017 THER/PROPH/DIAG INJ SC/IM CPT-4: 55896 01/12/2017 PPPS, SUBSEQ VISIT CPT- 4: G0439 12/12/2016 PNEUMOCOCCAL VACC [address]: 27223531 CPT-4: 04011 12/12/2016 ADMIN PNEUMOCOCCAL VACCINE SNOMED CT: 41288417 CPT-4: G0009 12/12/2016 THER/PROPH/DIAG INJ SC/IM CPT-4: 86533 10/27/2016 VITAMIN B12 INJECTION CPT- 4: J3420 10/27/2016 THER/PROPH/DIAG INJ SC/IM CPT-4: 26776 07/27/2016 VITAMIN B12 INJECTION CPT- 4: J3420 07/27/2016 THER/PROPH/DIAG INJ SC/IM CPT-4: 44771 04/26/2016 VITAMIN B12 INJECTION CPT- 4: J3420 04/26/2016 Vital Signs Date Vital 05/23/2018 Blood Pressure 1: 158/64 Code: 8480-6 BMI: 24.7 Code: 73017-8 Heart Rate 1: 76 bpm Height: 5'7" SpO2: 96% Temperature: 36.7 (C) / 98.1 (F) Weight: 158 lbs 05/03/2018 Blood Pressure 1: 122/72 Code: 8480-6 BMI: 25.1 Code: 49139-3 Heart Rate 1: 74 bpm Height: 5'7" SpO2: 97% Weight: 160 lbs 01/31/2018 Blood Pressure 1: 137/77 Code: 8480-6 Blood Pressure 2: 138/68 Code: 8480-6 Heart Rate 1: 67 bpm SpO2: 98% 01/30/2018 Blood Pressure 1: 138/66 Code: 8480-6 BMI: 25.1 Code: 98611-5 Heart Rate 1: 76 bpm Height: 5'7" SpO2: 94% Weight: 160 lbs 12/18/2017 Blood Pressure 1: 152/88 Code: 8480-6 BMI: 25.8 Code: 30215-7 Heart Rate 1: 68 bpm Height: 5'7" SpO2: 96% Weight: 165 lbs 11/28/2017 Blood Pressure 1: 150/76 Code: 8480-6 BMI: 25.2 Code: 00061-6 Heart Rate 1: 78 bpm Height: 5'7" SpO2: 98% Weight: 161 lbs 10/10/2017 Blood Pressure 1: 156/76 Code: 8480-6 BMI: 24.7 Code: 13665-9 Heart Rate 1: 71 bpm Height: 5'7" SpO2: 98% Weight: 158 lbs 09/26/2017 Blood Pressure 1: 162/82 Code: 8480-6 BMI: 24.7 Code: 57361-7 Heart Rate 1: 69 bpm Height: 5'7" SpO2: 99% Weight: 158 lbs 08/16/2017 Blood Pressure 1: 154/82 Code: 8480-6 BMI: 24.1 Code: 87747-0 Heart Rate 1: 58 bpm Height: 5'7" SpO2: 96% Weight: 154 lbs 07/18/2017 Blood Pressure 1: 152/88 Code: 8480-6 BMI: 25.2 Code: 87585-8 Heart Rate 1: 72 bpm Height: 5'7" SpO2: 98% Weight: 161 lbs 05/16/2017 Blood Pressure 1: 136/78 Code: 8480-6 BMI: 24.8 Code: 12678-6 Heart Rate 1: 71 bpm Height: 5'7" SpO2: 96% Weight: 158 lbs 8 oz 03/14/2017 Blood Pressure 1: 142/74 Code: 8480-6 BMI: 23.8 Code: 90642-5 Heart Rate 1: 69 bpm Height: 5'7" SpO2: 94% Weight: 152 lbs 01/12/2017 Blood Pressure 1: 156/90 Code: 8480-6 BMI: 23.4 Code: 22221-4 Heart Rate 1: 90 bpm Height: 5'7" SpO2: 97% Temperature: 37.4 (C) / 99.3 (F) Weight: 149 lbs 8 oz 12/12/2016 Blood Pressure 1: 140/78 Code: 8480-6 BMI: 24.3 Code: 82677-9 Heart Rate 1: 73 bpm Height: 5'7" SpO2: 96% Waist Measure (cm): 90 cm Weight: 155 lbs 12/08/2016 Blood Pressure 1: 148/84 Code: 8480-6 BMI: 24.3 Code: 59811-7 Heart Rate 1: 80 bpm Height: 5'7" SpO2: 96% Weight: 155 lbs 11/03/2016 Blood Pressure 1: 156/84 Code: 8480-6 Blood Pressure 2: 155/94 Code: 8480-6 BMI: 24.3 Code: 29342-8 Heart Rate 1: 81 bpm Height: 5'7" SpO2: 98% Weight: 155 lbs 10/06/2016 Blood Pressure 1: 175/95 Code: 8480-6 Heart Rate 1: 77 bpm Respiratory Rate: 16 bpm SpO2: 98% Temperature: 36.4 (C) / 97.5 (F) Weight: 157 lbs 09/06/2016 Blood Pressure 1: 136/80 Code: 8480-6 BMI: 24.1 Code: 04335-1 Heart Rate 1: 82 bpm Height: 5'8" SpO2: 97% Weight: 156 lbs 08/23/2016 Blood Pressure 1: 160/80 Code: 8480-6 BMI: 24.4 Code: 72509-0 Heart Rate 1: 88 bpm Height: 5'8" SpO2: 95% Weight: 158 lbs 04/26/2016 Blood Pressure 1: 156/74 Code: 8480-6 BMI: 24.5 Code: 02354-7 Heart Rate 1: 70 bpm Height: 5'8" SpO2: 97% Weight: 159 lbs Functional Status No Functional Status data History of Present Illness Symptom Name Status Result Effective Date Notes sore throat Pertinent Findings Denies unable to [...] None pain Onset of Symptom years ago 07/18/20172005- he had colon surgery pain Alleviating Factors [...] data Encounters Encounter Performer Location Codes Date [id number] EST. PATIENT, LEVEL III Diagnosis: Dysphagia, pharyngoesophageal phase[ICD10: R13.14] Teresa Paris MD, [facility] CPT-4: 99385 05/23/2018 ([id number]) 25966 EST. PATIENT, LEVEL IV Diagnosis: Essential (primary) hypertension[ICD10: I10] Diagnosis: Chronic pain syndrome[ICD10: G89.4] Diagnosis: 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 deficiency[ICD10: D51.0] Diagnosis: Other iron deficiency anemias[ICD10: D50.8] Diagnosis: Slow transit constipation[ICD10: K59.01] Andree Paris MD, [facility] CPT-4: 17233 05/03/2018 ([id number]) Miscellaneous no charge Diagnosis: Essential (primary) hypertension[ICD10: I10] Teresa Paris MD, [facility] CPT-4: 57568 01/31/2018 ([id number]) 80747 EST. PATIENT, LEVEL IV Diagnosis: Essential (primary) hypertension[ICD10: I10] Diagnosis: Chronic pain syndrome[ICD10: G89.4] Andree Paris MD, [facility] CPT- 4: 58827 01/30/2018 ([id number]) 37129 EST. PATIENT, LEVEL IV Diagnosis: Essential (primary) hypertension[ICD10: I10] Diagnosis: Chronic pain syndrome[ICD10: G89.4] Diagnosis: 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 deficiency[ICD10: D51.0] Diagnosis: Iron deficiency anemia, unspecified[ICD10: D50.9] Ana Paris MD, [facility] CPT-4: 39013 11/28/2017 27041 EST. PATIENT, LEVEL IV Diagnosis: Essential (primary) hypertension[ICD10: I10] Diagnosis: Slow transit constipation[ICD10: K59.01] Diagnosis: Chronic pain syndrome[ICD10: G89.4] Teresa Paris MD, [facility] CPT- 4: 08046 10/10/2017 47936 EST. PATIENT, LEVEL IV Diagnosis: 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 deficiency[ICD10: D51.0] Diagnosis: Essential (primary) hypertension[ICD10: I10] Diagnosis: Chronic pain syndrome[ICD10: G89.4] Teresa Paris MD, [facility] CPT- 4: 53995 09/26/2017 75253 EST. PATIENT, LEVEL III Diagnosis: Dysphagia, pharyngoesophageal phase[ICD10: R13.14] Teresa Paris MD, [facility] CPT-4: 44055 08/16/2017 ([id number]) 08206 EST. PATIENT, LEVEL IV Diagnosis: Essential (primary) hypertension[ICD10: I10] Diagnosis: Chronic pain syndrome[ICD10: G89.4] Diagnosis: 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 deficiency[ICD10: D51.0] Diagnosis: Iron deficiency anemia, unspecified[ICD10: D50.9] Diagnosis: Dysphagia, pharyngoesophageal phase[ICD10: R13.14] Ana Paris MD, [facility] CPT-4: 65112 07/18/2017 ([id number]) 58246 EST. PATIENT, LEVEL III Diagnosis: Essential (primary) hypertension[ICD10: I10] Diagnosis: Chronic pain syndrome[ICD10: G89.4] Diagnosis: 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 deficiency[ICD10: D51.0] Ana Paris MD, [facility] CPT-4: 52867 05/16/2017 ([id number]) 56286 EST. PATIENT, LEVEL III Diagnosis: Essential (primary) hypertension[ICD10: I10] Diagnosis: Chronic pain syndrome[ICD10: G89.4] Diagnosis: 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 deficiency[ICD10: D51.0] Ana Paris MD, [facility] CPT-4: 35790 03/14/2017 ([id number]) 87021 EST. PATIENT, LEVEL III Diagnosis: Cough[ICD10: R05] Diagnosis: Acute bronchitis, unspecified[ICD10: J20.9] Diagnosis: Chronic pain syndrome[ICD10: G89.4] Diagnosis: 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 deficiency[ICD10: D51.0] Ana Paris MD, [facility] CPT-4: 82289 01/12/2017 ([id number]) 15419 EST. PATIENT, LEVEL III Diagnosis: Essential (primary) hypertension[ICD10: I10] Diagnosis: Chronic pain syndrome[ICD10: G89.4] Ana Paris MD, [facility] CPT-4: 36447 12/08/2016 ([id number]) 42140 EST. PATIENT, LEVEL III Diagnosis: Essential (primary) hypertension[ICD10: I10] Ana Paris MD, [facility] CPT-4: 84695 11/03/2016 ([id number]) 99057 EST. PATIENT, LEVEL III Diagnosis: Essential (primary) hypertension[ICD10: I10] Ana Paris MD, [facility] CPT-4: 72898 10/06/2016 ([id number]) 96106 EST. PATIENT, LEVEL III Diagnosis: Essential (primary) hypertension[ICD10: I10] Ana Paris MD, [facility] CPT-4: 51930 09/06/2016 ([id number]) 49821 EST. PATIENT, LEVEL III Diagnosis: Essential (primary) hypertension[ICD10: I10] Ana Paris MD, [facility] CPT-4: 59074 08/23/2016 ([id number]) OFFICE VISIT, NEW - LEVEL 4 Diagnosis: Noninfective gastroenteritis and colitis, unspecified[ICD10: K52.9] Diagnosis: 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 deficiency[ICD10: D51.0] Diagnosis: Iron deficiency anemia, unspecified[ICD10: D50.9] Diagnosis: Chalazion left upper eyelid[ICD10: H00.14] Diagnosis: Elevated blood-pressure reading, without diagnosis of hypertension[ICD10: R03.0] Andree Paris MD, [facility] CPT-4: 30023 04/26/2016 Plan of Care Planned Activity Notes Codes Status Date Patient Education: Patient Medication Summary Completed 07/31/2018 [...] treatment plan. 05/23/2018 [phone] ([facility] min) Moderate 05/23/2018 Patient Education: Patient [...] current management. 05/03/2018 App[facility]ment: [phone] [place] (15 min) Moderate 05/03/2018 Patient Education: Patient [...] over-medication. 01/30/2018 Appointment: Andree Paris [phone] [place] [place] (15 min) Moderate 01/30/2018 Patient Education: [...] acute concerns. 12/18/2017 Appointment: Ana Pedraza WPtel: [phone] [facility] - Annual Wellness Visit 12/18/2017 [...] labs 11/28/2017 Appointment: Ana Pedraza WPtel: [phone] [phone] (30 min) Complex 11/28/2017 Patient Education: Patient [...] regimen. 10/10/2017 Appointment: [phone] [place] (30 min) Complex 10/10/2017 Patient Education: [...] the consequences of over-medication. 09/26/2017 Appointment: Teresa Bardalestel: [facility] (30 min) Complex 09/26/2017 Patient Education: Patient Medication Summary Completed 09/26/2017 Appointment: Teresa Bardalestel: [facility] (30 min) Complex 09/19/2017 Referral: External, Ordering Provider Referral Appointment Confirmed 08/17/2017 Visit Plan: Dysphagia - worsening since yesterday - will refer to Dr. Harper for possible EGD - pt is to notify clinic if symptoms do not improve, if they worsen, or with any acute changes, questions, or concerns. 08/16/2017 Appointment: Teresa Bardalesl: [facility] (30 min) Complex 08/16/2017 Patient Education: Patient Medication Summary Completed 08/16/2017 Care Plan: Referral Order SNOMED-CT : [id number] Pending 08/16/2017 Appointment: Injection 08/10/2017 Patient Education: [...] first 07/18/2017 Appointment: Ana Pedraza WPtel: [phone] [facility] [place] [address] (30 min) Complex 07/18/2017 Patient Education: Patient [...] of over-medication. 05/16/2017 Appointment: Ana Pedraza WPtel: [phone] (30 min) Complex 05/16/2017 Patient Education: Patient [...] over-medication. 03/14/2017 Appointment: Ana Pedraza WPtel: [phone] [phone] (30 min) Complex 03/14/2017 Patient Education: Patient [...] over-medication. 01/12/2017 Appointment: Ana Pedraza WPtel: [phone] [phone] (30 min) Complex 01/12/2017 Patient Education: Patient [...] care surrogate. 12/12/2016 Appointment: Ana Pedraza WPtel: [address] [place], [place] [phone] [facility] - Annual Wellness Visit 12/12/2016 [...] WPtel: [phone] [phone] (30 min) Complex 12/08/2016 Patient Education: Patient [...] acute concerns. 11/03/2016 Appointment: Ana Pedraza WPtel: [phone] (30 min) Complex 11/03/2016 Patient Education: Patient [...] acute concerns. 10/06/2016 Appointment: Ana Pedraza WPtel: [phone] (30 min) Complex 10/06/2016 Patient Education: Patient [...] acute concerns. 09/06/2016 Appointment: Ana Pedraza WPtel: [phone] (30 min) Complex 09/06/2016 Patient Education: Patient [...] acute concerns. 08/23/2016 Appointment: Ana Pedraza WPtel: [phone] (15 min) Moderate 08/23/2016 Patient Education: Patient [...] for gentamycin. 04/26/2016 Appointment: Andree Paris WPtel: [facility]4 [facility] New Patient 04/26/2016 Patient Education: Patient [...] any changes in the current treatment plan. increase hydrochlorothiazide to 25mg daily - keep [...]
--- OUTSIDE RECORDS SUMMARY | 2019-02-13 09:57 | XMS REPORT | CCD ---
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 Name Role Phone PP Unavailable CCM Unavailable Summary Purpose Interface Exchange Insurance Providers Payer name Policy type / Coverage type Covered constitution party ID Effective Begin Date Effective End Date WPS Medicare Part B Medicare Part B [id number] Unknown Unknown FOR LIFE WPS Medicare Part B [id number] Unknown Unknown Family history Father Diagnosis Age At Onset No Known Diseases N/A Mother Diagnosis Age At Onset No Known Diseases N/A Social History Social History Element Codes Description Effective Dates Marital status Unknown 04/26/2016 Number of children Unknown 3 04/26/2016 Employment Unknown Retired 04/26/[address]: 8233104 Former smoker Quit 1969 04/26/[address]: 633297 Currently drinks alcohol 04/26/2016 Has the patient [...] morphine ER 30 mg tablet,extended release RxNorm: 249366 1 Tablet(s) PO daily 07/31/2018 08/29/2018 Active amlodipine 5 mg tablet RxNorm: 818444 1 Tablet(s) PO QPM 07/11/2018 01/06/2019 Active cyanocobalamin (vit B-12) 1,000 mcg/mL injection solution RxNorm: 328568 1 Milliliter(s) Inj 07/02/2018 07/02/2018 Inactive morphine ER 30 mg tablet,extended release RxNorm: 757411 1 Tablet(s) PO daily 07/02/2018 07/30/2018 Inactive morphine ER 30 mg tablet,extended release RxNorm: 065810 1 Tablet(s) PO daily 05/31/2018 06/29/2018 Inactive cyanocobalamin (vit B-12) 1,000 mcg/mL injection solution RxNorm: 116637 Milliliter(s) Inj 05/31/2018 05/31/2018 Inactive Protonix 40 mg tablet,delayed release RxNorm: 721874 1 Tablet(s) PO daily 05/23/2018 06/21/2018 Inactive Carafate 1 gram tablet RxNorm: 111220 1 Tablet(s) PO AC & HS as needed 05/23/2018 06/21/2018 Inactive cyanocobalamin (vit B-12) 1,000 mcg/mL injection solution RxNorm: 878610 1 Milliliter(s) Inj 05/03/2018 05/03/2018 Inactive morphine ER 30 mg tablet,extended release RxNorm: 634129 1 Tablet(s) PO daily 04/04/2018 05/03/2018 Inactive cyanocobalamin (vit B-12) 1,000 mcg/mL injection solution RxNorm: 484961 1 Milliliter(s) Inj 04/04/2018 04/04/2018 Inactive cyanocobalamin (vit B-12) 1,000 mcg/mL injection solution RxNorm: 948070 1 Milliliter(s) Inj 03/05/2018 03/05/2018 Inactive morphine ER 30 mg tablet,extended release RxNorm: 162827 1 Tablet(s) PO daily 03/05/2018 04/03/2018 Inactive cyanocobalamin (vit B-12) 1,000 mcg/mL injection solution RxNorm: 528469 1 Milliliter(s) Inj 01/30/2018 01/30/2018 Inactive cyanocobalamin (vit B-12) 1,000 mcg/mL injection solution RxNorm: 477336 1 Milliliter(s) Inj 01/01/2018 01/01/2018 Inactive morphine ER 30 mg tablet,extended release RxNorm: 554230 1 Tablet(s) PO daily 01/01/2018 01/30/2018 Inactive lisinopril 20 mg tablet RxNorm: 367513 1 Tablet(s) PO BID 12/18/2017 12/12/2018 Active amlodipine 5 mg tablet RxNorm: 017234 1 Tablet(s) PO QPM 12/18/2017 06/15/2018 Inactive cyanocobalamin (vit B-12) 1,000 mcg/mL injection solution RxNorm: 769990 1 Milliliter(s) Inj 11/28/2017 11/28/2017 Inactive morphine ER 30 mg tablet,extended release RxNorm: 711496 1 Tablet(s) PO daily 11/28/2017 12/27/2017 Inactive morphine ER 30 mg tablet,extended release RxNorm: 840117 1 Tablet(s) PO daily 11/09/2017 11/27/2017 Inactive cyanocobalamin (vit B-12) 1,000 mcg/mL injection solution RxNorm: 628551 1 Milliliter(s) Inj 10/24/2017 10/24/2017 Inactive morphine ER 30 mg tablet,extended release RxNorm: 944877 1 Tablet(s) PO daily 10/10/2017 11/08/2017 Inactive hydrochlorothiazide 25 mg tablet RxNorm: 265255 1 Tablet(s) PO daily 10/10/2017 11/08/2017 Inactive cyanocobalamin (vit B-12) 1,000 mcg/mL injection solution RxNorm: 687484 1 Milliliter(s) Inj 09/26/2017 09/26/2017 Inactive hydrochlorothiazide 12.5 mg tablet RxNorm: 863409 1 Tablet(s) PO daily 09/26/2017 10/25/2017 Inactive morphine ER 30 mg tablet,extended release RxNorm: 388651 1 Tablet(s) PO daily 09/12/2017 10/09/2017 Inactive cyanocobalamin (vit B-12) 1,000 mcg/mL injection solution RxNorm: 576603 1 Milliliter(s) Inj 08/10/2017 08/10/2017 Inactive morphine ER 30 mg tablet,extended release RxNorm: 681407 1 Tablet(s) PO daily 08/10/2017 09/08/2017 Inactive Vitamin B-12 1,000 mcg/mL injection solution RxNorm: 703341 1 Milliliter(s) Inj month 07/21/2017 No Stop Date Active B12 INJECTIONS MONTHLY cyanocobalamin (vit B-12) 1,000 mcg/mL injection solution RxNorm: 315772 1 Milliliter(s) Inj 07/18/2017 07/18/2017 Inactive morphine ER 30 mg tablet,extended release RxNorm: 424054 1 Tablet(s) PO daily 07/13/2017 08/09/2017 Inactive morphine ER 30 mg tablet,extended release RxNorm: 766597 1 Tablet(s) PO daily 06/15/2017 07/12/2017 Inactive cyanocobalamin (vit B-12) 1,000 mcg/mL injection solution RxNorm: 933786 1 Milliliter(s) Inj 05/16/2017 05/16/2017 Inactive morphine ER 30 mg tablet,extended release RxNorm: 187767 1 Tablet(s) PO daily 04/13/2017 05/12/2017 Inactive cyanocobalamin (vit B-12) 1,000 mcg/mL injection solution RxNorm: 858658 1 Milliliter(s) Inj 03/14/2017 03/14/2017 Inactive morphine ER 30 mg tablet,extended release RxNorm: 741346 1 Tablet(s) PO daily 03/14/2017 04/12/2017 Inactive morphine ER 30 mg tablet,extended release RxNorm: 978910 1 Tablet(s) PO daily 02/13/2017 03/13/2017 Inactive Kenalog 40 mg/mL suspension for injection RxNorm: 6876272 1 Milliliter(s) Inj 01/12/2017 01/12/2017 Inactive cyanocobalamin (vit B-12) 1,000 mcg/mL injection solution RxNorm: 719800 1 Milliliter(s) Inj 01/12/2017 01/12/2017 Inactive Zithromax Z-[place] 250 mg tablet RxNorm: 934571 1 Tablet(s) PO UD 01/12/2017 01/16/2017 Inactive ceftriaxone 500 mg solution for injection RxNorm: 2845866 1 Milliliter(s) Inj 01/12/2017 01/12/2017 Inactive Vitamin B-12 1,000 mcg/mL injection solution RxNorm: 622880 1 Milliliter(s) Inj EVERY OTHER MONTH 01/04/2017 07/20/2017 Inactive lisinopril 20 mg tablet RxNorm: 388354 1 Tablet(s) PO BID 01/02/2017 12/17/2017 Inactive lisinopril 20 mg tablet RxNorm: 459295 1 Tablet(s) PO BID 12/12/2016 01/01/2017 Inactive morphine ER 30 mg tablet,extended release RxNorm: 772827 1 Tablet(s) PO daily 12/08/2016 01/06/2017 Inactive lisinopril 20 mg tablet RxNorm: 407428 1 Tablet(s) PO BID 11/03/2016 12/11/2016 Inactive morphine ER 30 mg tablet,extended release RxNorm: 400459 1 Tablet(s) PO daily 11/03/2016 12/02/2016 Inactive cyanocobalamin (vit B-12) 1,000 mcg/mL injection solution RxNorm: 917742 1 Milliliter(s) Inj 10/27/2016 10/27/2016 Inactive lisinopril 10 mg tablet RxNorm: 088211 1 Tablet(s) PO BID 10/06/2016 11/02/2016 Inactive lisinopril 10 mg tablet RxNorm: 963350 1 Tablet(s) PO daily 09/06/2016 10/05/2016 Inactive morphine ER 30 mg tablet,extended release RxNorm: 044797 1 Tablet(s) PO daily 08/18/2016 09/16/2016 Inactive cyanocobalamin (vit B-12) 1,000 mcg/mL injection solution RxNorm: 206741 Milliliter(s) Inj 07/27/2016 07/27/2016 Inactive morphine ER 30 mg tablet,extended release RxNorm: 430319 1 Tablet(s) PO daily 07/21/2016 08/17/2016 Inactive morphine ER 30 mg tablet,extended release RxNorm: 794788 1 Tablet(s) PO daily 06/20/2016 07/19/2016 Inactive morphine ER 30 mg tablet,extended release RxNorm: 484147 1 Tablet(s) PO daily 05/20/2016 06/19/2016 Inactive cyanocobalamin (vit B-12) 1,000 mcg/mL injection solution RxNorm: 182037 1 Milliliter(s) Inj 04/26/2016 04/26/2016 Inactive gentamicin 0.3 % eye drops RxNorm: 834687 2 Drop(s) OPH Q4H 04/26/2016 05/02/2016 Inactive Venofer intravenous RxNorm: 64799 intravenous No Start Date Active Vitamin B-12 1,000 mcg/mL injection solution RxNorm: 260020 1 Milliliter(s) Inj EVERY 3 MONTHS No Start Date 01/03/2017 Inactive Claritin 10 mg tablet RxNorm: 829840 1 Tablet(s) PO daily No Start Date 07/17/2017 Inactive morphine ER 30 mg tablet,extended release RxNorm: 477247 1 Tablet(s) PO daily No Start Date 04/25/2016 Inactive Medication Administered Medication Codes Instructions Start Date Status cyanocobalamin (vit B-12) 1,000 mcg/mL injection solution RxNorm: 178046 1Milliliter 07/02/2018 No longer Active cyanocobalamin (vit B-12) 1,000 mcg/mL injection solution RxNorm: 735552 Milliliter 05/31/2018 No longer Active cyanocobalamin (vit B-12) 1,000 mcg/mL injection solution RxNorm: 760483 1Milliliter 05/03/2018 No longer Active cyanocobalamin (vit B-12) 1,000 mcg/mL injection solution RxNorm: 711284 1Milliliter 04/04/2018 No longer Active cyanocobalamin (vit B-12) 1,000 mcg/mL injection solution RxNorm: 312206 1Milliliter 03/05/2018 No longer Active cyanocobalamin (vit B-12) 1,000 mcg/mL injection solution RxNorm: 774573 1Milliliter 01/30/2018 No longer Active cyanocobalamin (vit B-12) 1,000 mcg/mL injection solution RxNorm: 782835 1Milliliter 01/01/2018 No longer Active cyanocobalamin (vit B-12) 1,000 mcg/mL injection solution RxNorm: 240467 1Milliliter 11/28/2017 No longer Active cyanocobalamin (vit B-12) 1,000 mcg/mL injection solution RxNorm: 738866 1Milliliter 10/24/2017 No longer Active cyanocobalamin (vit B-12) 1,000 mcg/mL injection solution RxNorm: 750626 1Milliliter 09/26/2017 No longer Active cyanocobalamin (vit B-12) 1,000 mcg/mL injection solution RxNorm: 066062 1Milliliter 08/10/2017 No longer Active cyanocobalamin (vit B-12) 1,000 mcg/mL injection solution RxNorm: 163784 1Milliliter 07/18/2017 No longer Active cyanocobalamin (vit B-12) 1,000 mcg/mL injection solution RxNorm: 286204 1Milliliter 05/16/2017 No longer Active cyanocobalamin (vit B-12) 1,000 mcg/mL injection solution RxNorm: 860992 1Millili03/14/2017 No longer Active Kenalog 40 mg/mL suspension for injection RxNorm: 0888548 1Milliliter 01/12/2017 No longer Active cyanocobalamin (vit B-12) 1,000 mcg/mL injection solution RxNorm: 288825 1Milliliter 01/12/2017 No longer Active ceftriaxone 500 mg solution for injection RxNorm: 5211044 1Milliliter 01/12/2017 No longer Active cyanocobalamin (vit B-12) 1,000 mcg/mL injection solution RxNorm: 046321 1Milliliter 10/27/2016 No longer Active cyanocobalamin (vit B-12) 1,000 mcg/mL injection solution RxNorm: 019004 Milliliter 07/27/2016 No longer Active cyanocobalamin (vit B-12) 1,000 mcg/mL injection solution RxNorm: 702644 1Milliliter 04/26/2016 No longer Active Immunizations Vaccine Codes Date Status Influenza CVX: 141 05/31/2018 completed Pneumococcal (Adult) CVX: 133 12/12/2016 completed Assessments Condition Codes Effective Dates 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-10: D51.0 ICD-9: 281.0 07/02/2018 Encounter for immunization ICD-10: Z23 ICD-9: V03.89 [...] 32.9 pg 11/28/2017 Cbc With Differential Ord2 [place]% 12.6 % 11/28/2017 Cbc With Differential Ord2 [...] 2.87 K/ul 11/28/2017 Cbc With Differential Ord2 [place] ABS# 1.1 K/ul 11/28/2017 Cbc With Differential Ord2 Eos ABS# 0.3 K/ul 11/28/2017 Cbc With Differential Ord2 Baso ABS# 0.0 K/ul 11/28/2017 B12 Mgt951 B12 >1500.00 pg/ml 11/28/2017 Comp Metabolic Kvg514 NA 139 mEq/L 11/28/2017 Comp Metabolic Qlu401 K 5.2 mEq/L 11/28/2017 Comp Metabolic Yyc249 CL 106 mEq/L 11/28/2017 Comp Metabolic Ejm220 CO2 28.0 mEq/L 11/28/2017 Comp Metabolic Vll975 ANION GAP 10 11/28/2017 Comp Metabolic Vjh129 GLUCOSE 89 mg/dL 11/28/2017 Comp Metabolic Ktk322 Creat 1.1 mg/dL 11/28/2017 Comp Metabolic Tvn148 eGFR 66 ml/min/1.73m2 11/28/2017 Comp Metabolic Hma465 BUN 18 mg/dL 11/28/2017 Comp Metabolic Jum497 B/C Ratio 16.1 Ratio 11/28/2017 Comp Metabolic Jyn960 CALCIUM 9.2 mg/dL 11/28/2017 Comp Metabolic Zws319 ALK PHOS 89 U/L 11/28/2017 Comp Metabolic Xgm513 AST(SGOT) 22 U/L 11/28/2017 Comp Metabolic Jmo230 ALT(SGPT) 15 U/L 11/28/2017 Comp Metabolic Qdk682 BILI T 0.6 mg/dL 11/28/2017 Comp Metabolic Bvk475 ALBUMIN 3.9 g/dL 11/28/2017 Comp Metabolic Aez615 TPRO 6.5 g/dL 11/28/2017 Comp Metabolic Hpv675 GLOB 2.6 g/dL 11/28/2017 Comp Metabolic Jlu125 A/G Ratio 1.5 Ratio 11/28/2017 Comp Metabolic Vnx993 Osmo 279 mOsmo 11/28/2017 Ferritin Ord22 FERRITIN [...] 100.7 fl 07/18/2017 Cbc With Differential Ord2 MCH 33.7 pg 07/18/2017 Cbc With Differential Ord2 [place]% 12.3 % 07/18/2017 Cbc With Differential Ord2 MCHC 33.5 pg 07/18/2017 Cbc With Differential Ord2 Eos% 2.0 % 07/18/2017 Cbc With Differential Ord2 PLT 305 K/ul 07/18/2017 Cbc With Differential Ord2 Baso% 0.5 % 07/18/2017 Cbc With Differential Ord2 Neut ABS# 4.44 K/ul 07/18/2017 Cbc With Differential Ord2 RDW 13.9 % 07/18/2017 Cbc With Differential Ord2 Lymph ABS# 2.90 K/ul 07/18/2017 Cbc With Differential Ord2 [place] ABS# 1.1 K/ul 07/18/2017 Cbc With Differential Ord2 Eos ABS# 0.2 K/ul 07/18/2017 Cbc With Differential Ord2 Baso ABS# 0.0 K/ul 07/18/2017 Comp Metabolic Arn835 NA 140 mEq/L 07/18/2017 Comp Metabolic Ftk875 K 4.6 mEq/L 07/18/2017 Comp Metabolic Gbi965 CL 105 mEq/L 07/18/2017 Comp Metabolic Wyv927 CO2 29.0 mEq/L 07/18/2017 Comp Metabolic Inv661 ANION GAP 11 07/18/2017 Comp Metabolic Ahz098 GLUCOSE 96 mg/dL 07/18/2017 Comp Metabolic Uqu608 Creat 1.0 mg/dL 07/18/2017 Comp Metabolic Cje535 eGFR 73 ml/min/1.73m2 07/18/2017 Comp Metabolic Pgh378 BUN 12 mg/dL 07/18/2017 Comp Metabolic Zem877 B/C Ratio 11.7 Ratio 07/18/2017 Comp Metabolic Lbu648 CALCIUM 9.2 mg/dL 07/18/2017 Comp Metabolic Hbq372 ALK PHOS 74 U/L 07/18/2017 Comp Metabolic Nwr058 AST(SGOT) 29 U/L 07/18/2017 Comp Metabolic Twf701 ALT(SGPT) 16 U/L 07/18/2017 Comp Metabolic Dcu152 BILI T 0.7 mg/dL 07/18/2017 Comp Metabolic Krm981 ALBUMIN 3.7 g/dL 07/18/2017 Comp Metabolic Nwx117 TPRO 6.5 g/dL 07/18/2017 Comp Metabolic Qay973 GLOB 2.8 g/dL 07/18/2017 Comp Metabolic Wha838 A/G Ratio 1.3 Ratio 07/18/2017 Comp Metabolic Psq076 Osmo 279 mOsmo 07/18/2017 Iron Ord72 Iron 114 ug/dl 07/18/2017 B12 Mho253 B12 233.00 pg/ml 07/18/2017 Tsh Ord6 hTSH II 0.97 uIU/mL 12/13/2016 Cbc With Differential Ord2 WBC 9.42 K/ul 12/13/2016 Cbc With Differential Ord2 RBC 4.33 M/ul 12/13/2016 Cbc With Differential Ord2 HGB 14.4 g/dl 12/13/2016 Cbc With Differential Ord2 Neut% 49.6 % 12/13/2016 Cbc With Differential Ord2 HCT 43.3 % 12/13/2016 Cbc With Differential Ord2 Lymph% 28.8 % 12/13/2016 Cbc With Differential Ord2 MCV 100.0 fl 12/13/2016 Cbc With Differential Ord2 [place]% 17.9 % 12/13/2016 Cbc With Differential Ord2 [...] 2.71 K/ul 12/13/2016 Cbc With Differential Ord2 [place] ABS# 1.7 K/ul 12/13/2016 Cbc With Differential Ord2 Eos ABS# 0.3 K/ul 12/13/2016 Cbc With Differential Ord2 Baso ABS# 0.0 K/ul 12/13/2016 Comp Metabolic Sef979 NA 136 mEq/L 12/13/2016 Comp Metabolic Prv766 K 4.7 mEq/L 12/13/2016 Comp Metabolic Idg636 CL 102 mEq/L 12/13/2016 Comp Metabolic Wok293 CO2 26.0 mEq/L 12/13/2016 Comp Metabolic Ttf202 ANION GAP 13 12/13/2016 Comp Metabolic Zdh200 GLUCOSE 87 mg/dL 12/13/2016 Comp Metabolic Fxq577 Creat 0.9 mg/dL 12/13/2016 Comp Metabolic Qsg049 eGFR 83 ml/min/1.73m2 12/13/2016 Comp Metabolic Ntl377 BUN 17 mg/dL 12/13/2016 Comp Metabolic Wdt897 B/C Ratio 18.3 Ratio 12/13/2016 Comp Metabolic Icy447 CALCIUM 9.1 mg/dL 12/13/2016 Comp Metabolic Ulb396 ALK PHOS 90 U/L 12/13/2016 Comp Metabolic Deh474 AST(SGOT) 22 U/L 12/13/2016 Comp Metabolic Xxq818 ALT(SGPT) 15 U/L 12/13/2016 Comp Metabolic Nqg603 BILI T 0.8 mg/dL 12/13/2016 Comp Metabolic Hgn231 ALBUMIN 3.6 g/dL 12/13/2016 Comp Metabolic Fdy294 TPRO 6.4 g/dL 12/13/2016 Comp Metabolic Ozz556 GLOB 2.9 g/dL 12/13/2016 Comp Metabolic Nye789 A/G Ratio 1.2 Ratio 12/13/2016 Comp Metabolic Ury182 Osmo 273 mOsmo 12/13/2016 Lipid Ord30 CHOL 182 mg/dL 12/13/2016 Lipid Ord30 HDL 64.0 mg/dl 12/13/2016 Lipid Ord30 TRIG 62 mg/dL 12/13/2016 Lipid Ord30 LDL 106 mg/dL 12/13/2016 Lipid Ord30 C/HDL 2.8 Ratio 12/13/2016 Ferritin Ord22 FERRITIN 434.7 ng/mL 12/13/2016 B12 Voi828 B12 247.00 pg/ml 12/13/2016 Tibc Ord40 Iron [...] 33.7 pg 04/27/2016 Cbc With Differential Ord2 [place]% 13.7 % 04/27/2016 Cbc With Differential Ord2 [...] 3.22 K/ul 04/27/2016 Cbc With Differential Ord2 [place] ABS# 1.2 K/ul 04/27/2016 Cbc With Differential Ord2 Eos ABS# 0.3 K/ul 04/27/2016 Cbc With Differential Ord2 Baso ABS# 0.0 K/ul 04/27/2016 Comp Metabolic Uxx566 NA 138 mEq/L 04/27/2016 Comp Metabolic Mxu829 K 4.3 mEq/L 04/27/2016 Comp Metabolic Hwd673 CL 104 mEq/L 04/27/2016 Comp Metabolic Kqm962 CO2 30.0 mEq/L 04/27/2016 Comp Metabolic Jia047 ANION GAP 8 04/27/2016 Comp Metabolic Rlh241 GLUCOSE 87 mg/dL 04/27/2016 Comp Metabolic Zps079 Creat 0.9 mg/dL 04/27/2016 Comp Metabolic Obg786 eGFR 82 ml/min/1.73m2 04/27/2016 Comp Metabolic Iax740 BUN 13 mg/dL 04/27/2016 Comp Metabolic Crh153 B/C Ratio 13.8 Ratio 04/27/2016 Comp Metabolic Vdy610 CALCIUM 9.0 mg/dL 04/27/2016 Comp Metabolic Bpr735 ALK PHOS 62 U/L 04/27/2016 Comp Metabolic Nvi615 AST(SGOT) 24 U/L 04/27/2016 Comp Metabolic Uib714 ALT(SGPT) 15 U/L 04/27/2016 Comp Metabolic Wlc027 BILI T 0.7 mg/dL 04/27/2016 Comp Metabolic Xqe966 ALBUMIN 3.6 g/dL 04/27/2016 Comp Metabolic Rjt192 TPRO 6.1 g/dL 04/27/2016 Comp Metabolic Xrg822 GLOB 2.5 g/dL 04/27/2016 Comp Metabolic Mtl230 A/G Ratio 1.4 Ratio 04/27/2016 Comp Metabolic Pxn955 Osmo 275 mOsmo 04/27/2016 B12 Asm354 B12 >1500.00 pg/ml 04/27/2016 Iron Ord72 Iron [...] Procedure Codes Date THER/PROPH/DIAG INJ SC/IM CPT-4: 10015 07/02/2018 VITAMIN B12 INJECTION CPT- 4: J3420 07/02/2018 THER/PROPH/DIAG INJ SC/IM CPT-4: 99260 05/31/2018 ADMIN INFLUENZA VIRUS VAC CPT-4: G0008 05/31/2018 VITAMIN B12 INJECTION CPT- 4: J3420 05/31/2018 FLU VACC PRSV FREE INC ANTIG Formatting Model/CDA Sections, Assigned to/Mary Grace Rosado CPT-4: [id number] 05/31/2018 VITAMIN B12 INJECTION CPT- 4: J3420 05/03/2018 THER/PROPH/DIAG INJ SC/IM CPT-4: 01530 05/03/2018 THER/PROPH/DIAG INJ SC/IM CPT-4: 33558 04/04/2018 VITAMIN B12 INJECTION CPT- 4: J3420 04/04/2018 THER/PROPH/DIAG INJ SC/IM CPT-4: 15533 03/05/2018 VITAMIN B12 INJECTION CPT- 4: J3420 03/05/2018 VITAMIN B12 INJECTION CPT- 4: J3420 01/30/2018 THER/PROPH/DIAG INJ SC/IM CPT-4: 97676 01/30/2018 THER/PROPH/DIAG INJ SC/IM CPT-4: 54423 01/01/2018 VITAMIN B12 INJECTION CPT- 4: J3420 01/01/2018 PPPS, SUBSEQ VISIT CPT- 4: G0439 12/18/2017 THER/PROPH/DIAG INJ SC/IM CPT-4: 28148 11/28/2017 VITAMIN B12 INJECTION CPT- 4: J3420 11/28/2017 THER/PROPH/DIAG INJ SC/IM CPT-4: 09615 10/24/2017 VITAMIN B12 INJECTION CPT- 4: J3420 10/24/2017 THER/PROPH/DIAG INJ SC/IM CPT-4: 18091 09/26/2017 VITAMIN B12 INJECTION CPT- 4: J3420 09/26/2017 THER/PROPH/DIAG INJ SC/IM CPT-4: 19004 08/10/2017 VITAMIN B12 INJECTION CPT- 4: J3420 08/10/2017 THER/PROPH/DIAG INJ SC/IM CPT-4: 39735 07/18/2017 VITAMIN B12 INJECTION CPT- 4: J3420 07/18/2017 THER/PROPH/DIAG INJ SC/IM CPT-4: 14341 05/16/2017 VITAMIN B12 INJECTION CPT- 4: J3420 05/16/2017 THER/PROPH/DIAG INJ SC/IM CPT-4: 73343 03/14/2017 VITAMIN B12 INJECTION CPT- 4: J3420 03/14/2017 TRIAMCINOLONE ACET INJ NOS CPT-4: J3301 01/12/2017 ROCEPHIN, PER 250 MG CPT- 4: J0696 01/12/2017 VITAMIN B12 INJECTION CPT- 4: J3420 01/12/2017 THER/PROPH/DIAG INJ SC/IM CPT-4: 92652 01/12/2017 PPPS, SUBSEQ VISIT CPT- 4: G0439 12/12/2016 PNEUMOCOCCAL VACC [address]: 73346883 CPT-4: 02711 12/12/2016 ADMIN PNEUMOCOCCAL VACCINE SNOMED CT: 62836344 CPT-4: G0009 12/12/2016 THER/PROPH/DIAG INJ SC/IM CPT-4: 87170 10/27/2016 VITAMIN B12 INJECTION CPT- 4: J3420 10/27/2016 THER/PROPH/DIAG INJ SC/IM CPT-4: 77054 07/27/2016 VITAMIN B12 INJECTION CPT- 4: J3420 07/27/2016 THER/PROPH/DIAG INJ SC/IM CPT-4: 16609 04/26/2016 VITAMIN B12 INJECTION CPT- 4: J3420 04/26/2016 Vital Signs Date Vital 05/23/2018 Blood Pressure 1: 158/64 Code: 8480-6 BMI: 24.7 Code: 06163-7 Heart Rate 1: 76 bpm Height: 5'7" SpO2: 96% Temperature: 36.7 (C) / 98.1 (F) Weight: 158 lbs 05/03/2018 Blood Pressure 1: 122/72 Code: 8480-6 BMI: 25.1 Code: 14176-9 Heart Rate 1: 74 bpm Height: 5'7" SpO2: 97% Weight: 160 lbs 01/31/2018 Blood Pressure 1: 137/77 Code: 8480-6 Blood Pressure 2: 138/68 Code: 8480-6 Heart Rate 1: 67 bpm SpO2: 98% 01/30/2018 Blood Pressure 1: 138/66 Code: 8480-6 BMI: 25.1 Code: 10038-9 Heart Rate 1: 76 bpm Height: 5'7" SpO2: 94% Weight: 160 lbs 12/18/2017 Blood Pressure 1: 152/88 Code: 8480-6 BMI: 25.8 Code: 13455-9 Heart Rate 1: 68 bpm Height: 5'7" SpO2: 96% Weight: 165 lbs 11/28/2017 Blood Pressure 1: 150/76 Code: 8480-6 BMI: 25.2 Code: 82690-1 Heart Rate 1: 78 bpm Height: 5'7" SpO2: 98% Weight: 161 lbs 10/10/2017 Blood Pressure 1: 156/76 Code: 8480-6 BMI: 24.7 Code: 60348-9 Heart Rate 1: 71 bpm Height: 5'7" SpO2: 98% Weight: 158 lbs 09/26/2017 Blood Pressure 1: 162/82 Code: 8480-6 BMI: 24.7 Code: 81498-8 Heart Rate 1: 69 bpm Height: 5'7" SpO2: 99% Weight: 158 lbs 08/16/2017 Blood Pressure 1: 154/82 Code: 8480-6 BMI: 24.1 Code: 88792-8 Heart Rate 1: 58 bpm Height: 5'7" SpO2: 96% Weight: 154 lbs 07/18/2017 Blood Pressure 1: 152/88 Code: 8480-6 BMI: 25.2 Code: 73674-7 Heart Rate 1: 72 bpm Height: 5'7" SpO2: 98% Weight: 161 lbs 05/16/2017 Blood Pressure 1: 136/78 Code: 8480-6 BMI: 24.8 Code: 30296-6 Heart Rate 1: 71 bpm Height: 5'7" SpO2: 96% Weight: 158 lbs 8 oz 03/14/2017 Blood Pressure 1: 142/74 Code: 8480-6 BMI: 23.8 Code: 91008-2 Heart Rate 1: 69 bpm Height: 5'7" SpO2: 94% Weight: 152 lbs 01/12/2017 Blood Pressure 1: 156/90 Code: 8480-6 BMI: 23.4 Code: 80307-2 Heart Rate 1: 90 bpm Height: 5'7" SpO2: 97% Temperature: 37.4 (C) / 99.3 (F) Weight: 149 lbs 8 oz 12/12/2016 Blood Pressure 1: 140/78 Code: 8480-6 BMI: 24.3 Code: 32720-4 Heart Rate 1: 73 bpm Height: 5'7" SpO2: 96% Waist Measure (cm): 90 cm Weight: 155 lbs 12/08/2016 Blood Pressure 1: 148/84 Code: 8480-6 BMI: 24.3 Code: 02802-1 Heart Rate 1: 80 bpm Height: 5'7" SpO2: 96% Weight: 155 lbs 11/03/2016 Blood Pressure 1: 156/84 Code: 8480-6 Blood Pressure 2: 155/94 Code: 8480-6 BMI: 24.3 Code: 76927-4 Heart Rate 1: 81 bpm Height: 5'7" SpO2: 98% Weight: 155 lbs 10/06/2016 Blood Pressure 1: 175/95 Code: 8480-6 Heart Rate 1: 77 bpm Respiratory Rate: 16 bpm SpO2: 98% Temperature: 36.4 (C) / 97.5 (F) Weight: 157 lbs 09/06/2016 Blood Pressure 1: 136/80 Code: 8480-6 BMI: 24.1 Code: 64891-5 Heart Rate 1: 82 bpm Height: 5'8" SpO2: 97% Weight: 156 lbs 08/23/2016 Blood Pressure 1: 160/80 Code: 8480-6 BMI: 24.4 Code: 07474-9 Heart Rate 1: 88 bpm Height: 5'8" SpO2: 95% Weight: 158 lbs 04/26/2016 Blood Pressure 1: 156/74 Code: 8480-6 BMI: 24.5 Code: 85543-4 Heart Rate 1: 70 bpm Height: 5'8" [...] data Encounters Encounter Performer Location Codes Date [id number] EST. PATIENT, LEVEL III Diagnosis: Dysphagia, pharyngoesophageal phase[ICD10: R13.14] [facility] CPT-4: 42565 05/23/2018 [id number]) 81662 EST. PATIENT, LEVEL IV Diagnosis: Essential (primary) hypertension[ICD10: I10] Diagnosis: Chronic pain syndrome[ICD10: G89.4] Diagnosis: 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 deficiency[ICD10: D51.0] Diagnosis: Other iron deficiency anemias[ICD10: D50.8] Diagnosis: Slow transit constipation[ICD10: K59.01] Andree Paris MD, [facility] CPT-4: 14888 05/03/2018 ([id number]) Miscellaneous no charge Diagnosis: Essential (primary) hypertension[ICD10: I10] Teresa Paris MD, [facility] CPT-4: 15513 01/31/2018 ([id number]) 24596 EST. PATIENT, LEVEL IV Diagnosis: Essential (primary) hypertension[ICD10: I10] Diagnosis: Chronic pain syndrome[ICD10: G89.4] Andree Paris MD, [facility] CPT- 4: 16045 01/30/2018 ([id number]) 53465 EST. PATIENT, LEVEL IV Diagnosis: Essential (primary) hypertension[ICD10: I10] Diagnosis: Chronic pain syndrome[ICD10: G89.4] Diagnosis: 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 deficiency[ICD10: D51.0] Diagnosis: Iron deficiency anemia, unspecified[ICD10: D50.9] Ana Paris MD, [facility] CPT-4: 22931 11/28/2017 [id number] EST. PATIENT, LEVEL IV Diagnosis: Essential (primary) hypertension[ICD10: I10] Diagnosis: Slow transit constipation[ICD10: K59.01] Diagnosis: Chronic pain syndrome[ICD10: G89.4] Teresa Paris MD, [facility] CPT- 4: 75093 10/10/2017 59299 EST. PATIENT, LEVEL IV Diagnosis: 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 deficiency[ICD10: D51.0] Diagnosis: Essential (primary) hypertension[ICD10: I10] Diagnosis: Chronic pain syndrome[ICD10: G89.4] Teresa Paris MD, [facility] CPT- 4: 02461 09/26/2017 73784 EST. PATIENT, LEVEL III Diagnosis: Dysphagia, pharyngoesophageal phase[ICD10: R13.14] Teresa Paris MD, [facility] CPT-4: 59482 08/16/2017 ([id number]) 84775 EST. PATIENT, LEVEL IV Diagnosis: Essential (primary) hypertension[ICD10: I10] Diagnosis: Chronic pain syndrome[ICD10: G89.4] Diagnosis: 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 deficiency[ICD10: D51.0] Diagnosis: Iron deficiency anemia, unspecified[ICD10: D50.9] Diagnosis: Dysphagia, pharyngoesophageal phase[ICD10: R13.14] Ana Paris MD, [facility] CPT-4: 01279 07/18/2017 ([id number]) 87460 EST. PATIENT, LEVEL III Diagnosis: Essential (primary) hypertension[ICD10: I10] Diagnosis: Chronic pain syndrome[ICD10: G89.4] Diagnosis: 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 deficiency[ICD10: D51.0] Ana Paris MD, [facility] CPT-4: 52059 05/16/2017 ([id number]) 42570 EST. PATIENT, LEVEL III Diagnosis: Essential (primary) hypertension[ICD10: I10] Diagnosis: Chronic pain syndrome[ICD10: G89.4] Diagnosis: 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 deficiency[ICD10: D51.0] Ana Paris MD, [facility] CPT-4: 23456 03/14/2017 ([id number]) 33566 EST. PATIENT, LEVEL III Diagnosis: Cough[ICD10: R05] Diagnosis: Acute bronchitis, unspecified[ICD10: J20.9] Diagnosis: Chronic pain syndrome[ICD10: G89.4] Diagnosis: 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 deficiency[ICD10: D51.0] Ana Paris MD, [facility] CPT-4: 32102 01/12/2017 ([id number]) 12352 EST. PATIENT, LEVEL III Diagnosis: Essential (primary) hypertension[ICD10: I10] Diagnosis: Chronic pain syndrome[ICD10: G89.4] Ana Paris MD, [facility] CPT-4: 45411 12/08/2016 ([id number]) 97198 EST. PATIENT, LEVEL III Diagnosis: Essential (primary) hypertension[ICD10: I10] Ana Paris MD, [facility] CPT-4: 77267 11/03/2016 ([id number]) 54406 EST. PATIENT, LEVEL III Diagnosis: Essential (primary) hypertension[ICD10: I10] Ana Paris MD, [facility] CPT-4: 38605 10/06/2016 ([id number]) 46283 EST. PATIENT, LEVEL III Diagnosis: Essential (primary) hypertension[ICD10: I10] [facility] CPT-4: 38706 09/06/2016 ([id number]) 57541 EST. PATIENT, LEVEL III Diagnosis: Essential (primary) hypertension[ICD10: I10] Ana Paris MD, [facility] CPT-4: 39705 08/23/2016 ([id number]) OFFICE VISIT, NEW - LEVEL 4 Diagnosis: Noninfective gastroenteritis and colitis, unspecified[ICD10: K52.9] Diagnosis: 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 deficiency[ICD10: D51.0] Diagnosis: Iron deficiency anemia, unspecified[ICD10: D50.9] Diagnosis: Chalazion left upper eyelid[ICD10: H00.14] Diagnosis: Elevated blood-pressure reading, without diagnosis of hypertension[ICD10: R03.0] Andree Paris MD, [facility] CPT-4: 28024 04/26/2016 Plan of Care Planned Activity Notes Codes Status Date Appointment: Injection 07/02/2018 Patient Education: Patient Medication [...] plan. 05/23/2018 [phone] ([facility] min) Moderate 05/23/2018 Patient Education: [...] current management. 05/03/2018 [phone] ([facility] min) Moderate 05/03/2018 Patient Education: [...] over-medication. 01/30/2018 [facility]ment[phone] [place] (15 min) Moderate 01/30/2018 Patient [...] acute concerns. 12/18/2017 Appointment: Ana Pedraza WPtel: [phone] [facility] - Annual Wellness Visit 12/18/2017 [...] def-check labs 11/28/2017 Appointment: Ana Pedraza WPtel: [phone] (30 min) Complex 11/28/2017 Patient Education: [...] this regimen. 10/10/2017 Appointment: Teresa Bardales WPtel: [address] [place], [place] [id number] (30 min) Complex 10/10/2017 Patient Education: Patient [...] of over-medication. 09/26/2017 App[facility]ment: [phone] (30 min) Complex 09/26/2017 Patient Education: Patient Medication Summary Completed 09/26/2017 Appointment: Teresa Bardales WPtel: [phone] [facility] (30 min) Complex 09/19/2017 Referral: External, Ordering Provider Referral Appointment Confirmed 08/17/2017 Visit Plan: Dysphagia - worsening since yesterday - will refer to Dr. Harper for possible EGD - pt is to notify clinic if symptoms do not improve, if they worsen, or with any acute changes, questions, or concerns. 08/16/2017 Appointment: Teresa Bardales WPtel: [facility] (30 min) Complex 08/16/2017 Patient Education: Patient Medication Summary Completed 08/16/2017 Care Plan: Referral Order SNOMED-CT : [id number] Pending 08/16/2017 Appointment: Injection 08/10/2017 Patient Education: [...] first 07/18/2017 Appointment: Ana Pedraza WPtel: [phone] [place] (30 min) Complex 07/18/2017 Patient Education: [...] over-medication. 05/16/2017 Appointment: Ana Pedraza WPtel: [facility] (30 min) Complex 05/16/2017 Patient Education: [...] Pedraza WPtel: [facility] [address] (30 min) Complex 03/14/2017 Patient Education: [...] Pedraza WPtel: [facility]5 [id number] [place] [address] (30 min) Complex 01/12/2017 Patient Education: Patient [...] care surrogate. 12/12/2016 Appointment: Ana Pedraza WPtel: [address] [place] [address] - Annual Wellness Visit 12/12/2016 Patient Education: [...] Ana Pedraza WPtel: [phone] (30 min) Complex 12/08/2016 Patient Education: [...] concerns. 11/03/2016 Appointment: Ana Pedraza WPtel: [phone] [phone] (30 min) Complex 11/03/2016 Patient Education: [...] concerns. 10/06/2016 Appointment: Ana Pedraza WPtel: [phone] [phone] (30 min) Complex 10/06/2016 Patient Education: [...] acute concerns. 09/06/2016 Appointment: Ana Pedraza WPtel: [phone] [phone] (30 min) Complex 09/06/2016 Patient Education: Patient [...] Pedraza WPtel: [facility]5 [place] [phone] [place] [address] (15 min) Moderate 08/23/2016 Patient Education: Patient [...] Andree Paris WPtel: [facility]5 [facility]66[facility] New Patient 04/26/2016 Patient Education: Patient Medication Summary Completed 04/26/2016 Referral: External, Ordering Provider Referral Initiated Instructions Comment Kenalog 60 mg IM Rocephin 500mg B12 [...] improved on this regimen. . Dysphagia - discussed with Dr. Paris [...] the consequences of over-medication. Iron def-check labs CUT BACK ON SALTY FOODS-CANNED FOODS, FROZEN [...] directed, and understands the consequences of over-medication. OKAY TO STAY OF THE WATER PILL [...]
--- OUTSIDE RECORDS SUMMARY | 2019-02-13 10:00 | XMS REPORT | CCD ---
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 Name Role Phone PP Unavailable CCM Unavailable Summary Purpose Interface Exchange Insurance Providers Payer name Policy type / Coverage type Covered green party ID Effective Begin Date Effective End Date WPS Medicare Part B Medicare Part B [id number] Unknown Unknown FOR LIFE WPS Medicare Part B [id number] Unknown Unknown Family history Father Diagnosis Age At Onset No Known Diseases N/A Mother Diagnosis Age At Onset No Known Diseases N/A Social History Social History Element Codes Description Effective Dates Marital status Unknown 04/26/2016 Number of children Unknown 3 04/26/2016 Employment Unknown Retired 04/26/[address]: 8850797 Former smoker Quit 1969 04/26/[address]: 056340 Currently drinks alcohol 04/26/2016 Has the patient [...] Start Date Stop Date Status Fill Instructions amlodipine 5 mg tablet RxNorm: 596442 1 Tablet(s) PO QPM 07/11/2018 01/06/2019 Active morphine ER 30 mg tablet,extended release RxNorm: 578477 1 Tablet(s) PO daily 07/02/2018 07/31/2018 Active cyanocobalamin (vit B-12) 1,000 mcg/mL injection solution RxNorm: 940383 1 Milliliter(s) Inj 07/02/2018 07/02/2018 Inactive morphine ER 30 mg tablet,extended release RxNorm: 245920 1 Tablet(s) PO daily 05/31/2018 06/29/2018 Inactive cyanocobalamin (vit B-12) 1,000 mcg/mL injection solution RxNorm: 542119 Milliliter(s) Inj 05/31/2018 05/31/2018 Inactive Protonix 40 mg tablet,delayed release RxNorm: 571114 1 Tablet(s) PO daily 05/23/2018 06/21/2018 Inactive Carafate 1 gram tablet RxNorm: 982197 1 Tablet(s) PO AC & HS as needed 05/23/2018 06/21/2018 Inactive cyanocobalamin (vit B-12) 1,000 mcg/mL injection solution RxNorm: 969738 1 Milliliter(s) Inj 05/03/2018 05/03/2018 Inactive morphine ER 30 mg tablet,extended release RxNorm: 600870 1 Tablet(s) PO daily 04/04/2018 05/03/2018 Inactive cyanocobalamin (vit B-12) 1,000 mcg/mL injection solution RxNorm: 247721 1 Milliliter(s) Inj 04/04/2018 04/04/2018 Inactive cyanocobalamin (vit B-12) 1,000 mcg/mL injection solution RxNorm: 788888 1 Milliliter(s) Inj 03/05/2018 03/05/2018 Inactive morphine ER 30 mg tablet,extended release RxNorm: 234714 1 Tablet(s) PO daily 03/05/2018 04/03/2018 Inactive cyanocobalamin (vit B-12) 1,000 mcg/mL injection solution RxNorm: 567798 1 Milliliter(s) Inj 01/30/2018 01/30/2018 Inactive cyanocobalamin (vit B-12) 1,000 mcg/mL injection solution RxNorm: 587559 1 Milliliter(s) Inj 01/01/2018 01/01/2018 Inactive morphine ER 30 mg tablet,extended release RxNorm: 688695 1 Tablet(s) PO daily 01/01/2018 01/30/2018 Inactive lisinopril 20 mg tablet RxNorm: 332808 1 Tablet(s) PO BID 12/18/2017 12/12/2018 Active amlodipine 5 mg tablet RxNorm: 313835 1 Tablet(s) PO QPM 12/18/2017 06/15/2018 Inactive cyanocobalamin (vit B-12) 1,000 mcg/mL injection solution RxNorm: 508644 1 Milliliter(s) Inj 11/28/2017 11/28/2017 Inactive morphine ER 30 mg tablet,extended release RxNorm: 493113 1 Tablet(s) PO daily 11/28/2017 12/27/2017 Inactive morphine ER 30 mg tablet,extended release RxNorm: 199595 1 Tablet(s) PO daily 11/09/2017 11/27/2017 Inactive cyanocobalamin (vit B-12) 1,000 mcg/mL injection solution RxNorm: 838817 1 Milliliter(s) Inj 10/24/2017 10/24/2017 Inactive morphine ER 30 mg tablet,extended release RxNorm: 906671 1 Tablet(s) PO daily 10/10/2017 11/08/2017 Inactive hydrochlorothiazide 25 mg tablet RxNorm: 717802 1 Tablet(s) PO daily 10/10/2017 11/08/2017 Inactive cyanocobalamin (vit B-12) 1,000 mcg/mL injection solution RxNorm: 229507 1 Milliliter(s) Inj 09/26/2017 09/26/2017 Inactive hydrochlorothiazide 12.5 mg tablet RxNorm: 018926 1 Tablet(s) PO daily 09/26/2017 10/25/2017 Inactive morphine ER 30 mg tablet,extended release RxNorm: 094258 1 Tablet(s) PO daily 09/12/2017 10/09/2017 Inactive cyanocobalamin (vit B-12) 1,000 mcg/mL injection solution RxNorm: 834541 1 Milliliter(s) Inj 08/10/2017 08/10/2017 Inactive morphine ER 30 mg tablet,extended release RxNorm: 877111 1 Tablet(s) PO daily 08/10/2017 09/08/2017 Inactive Vitamin B-12 1,000 mcg/mL injection solution RxNorm: 294908 1 Milliliter(s) Inj month 07/21/2017 No Stop Date Active B12 INJECTIONS MONTHLY cyanocobalamin (vit B-12) 1,000 mcg/mL injection solution RxNorm: 907988 1 Milliliter(s) Inj 07/18/2017 07/18/2017 Inactive morphine ER 30 mg tablet,extended release RxNorm: 161202 1 Tablet(s) PO daily 07/13/2017 08/09/2017 Inactive morphine ER 30 mg tablet,extended release RxNorm: 575029 1 Tablet(s) PO daily 06/15/2017 07/12/2017 Inactive cyanocobalamin (vit B-12) 1,000 mcg/mL injection solution RxNorm: 199497 1 Milliliter(s) Inj 05/16/2017 05/16/2017 Inactive morphine ER 30 mg tablet,extended release RxNorm: 333101 1 Tablet(s) PO daily 04/13/2017 05/12/2017 Inactive cyanocobalamin (vit B-12) 1,000 mcg/mL injection solution RxNorm: 054200 1 Milliliter(s) Inj 03/14/2017 03/14/2017 Inactive morphine ER 30 mg tablet,extended release RxNorm: 400506 1 Tablet(s) PO daily 03/14/2017 04/12/2017 Inactive morphine ER 30 mg tablet,extended release RxNorm: 656101 1 Tablet(s) PO daily 02/13/2017 03/13/2017 Inactive Kenalog 40 mg/mL suspension for injection RxNorm: 5435267 1 Milliliter(s) Inj 01/12/2017 01/12/2017 Inactive cyanocobalamin (vit B-12) 1,000 mcg/mL injection solution RxNorm: 449474 1 Milliliter(s) Inj 01/12/2017 01/12/2017 Inactive Zithromax Z-[place] 250 mg tablet RxNorm: 410142 1 Tablet(s) PO UD 01/12/2017 01/16/2017 Inactive ceftriaxone 500 mg solution for injection RxNorm: 9835392 1 Milliliter(s) Inj 01/12/2017 01/12/2017 Inactive Vitamin B-12 1,000 mcg/mL injection solution RxNorm: 683500 1 Milliliter(s) Inj EVERY OTHER MONTH 01/04/2017 07/20/2017 Inactive lisinopril 20 mg tablet RxNorm: 164396 1 Tablet(s) PO BID 01/02/2017 12/17/2017 Inactive lisinopril 20 mg tablet RxNorm: 907781 1 Tablet(s) PO BID 12/12/2016 01/01/2017 Inactive morphine ER 30 mg tablet,extended release RxNorm: 613709 1 Tablet(s) PO daily 12/08/2016 01/06/2017 Inactive lisinopril 20 mg tablet RxNorm: 931404 1 Tablet(s) PO BID 11/03/2016 12/11/2016 Inactive morphine ER 30 mg tablet,extended release RxNorm: 159331 1 Tablet(s) PO daily 11/03/2016 12/02/2016 Inactive cyanocobalamin (vit B-12) 1,000 mcg/mL injection solution RxNorm: 271521 1 Milliliter(s) Inj 10/27/2016 10/27/2016 Inactive lisinopril 10 mg tablet RxNorm: 123439 1 Tablet(s) PO BID 10/06/2016 11/02/2016 Inactive lisinopril 10 mg tablet RxNorm: 881385 1 Tablet(s) PO daily 09/06/2016 10/05/2016 Inactive morphine ER 30 mg tablet,extended release RxNorm: 125526 1 Tablet(s) PO daily 08/18/2016 09/16/2016 Inactive cyanocobalamin (vit B-12) 1,000 mcg/mL injection solution RxNorm: 331266 Milliliter(s) Inj 07/27/2016 07/27/2016 Inactive morphine ER 30 mg tablet,extended release RxNorm: 574996 1 Tablet(s) PO daily 07/21/2016 08/17/2016 Inactive morphine ER 30 mg tablet,extended release RxNorm: 011720 1 Tablet(s) PO daily 06/20/2016 07/19/2016 Inactive morphine ER 30 mg tablet,extended release RxNorm: 151007 1 Tablet(s) PO daily 05/20/2016 06/19/2016 Inactive cyanocobalamin (vit B-12) 1,000 mcg/mL injection solution RxNorm: 795032 1 Milliliter(s) Inj 04/26/2016 04/26/2016 Inactive gentamicin 0.3 % eye drops RxNorm: 817462 2 Drop(s) OPH Q4H 04/26/2016 05/02/2016 Inactive Venofer intravenous RxNorm: 03234 intravenous No Start Date Active Vitamin B-12 1,000 mcg/mL injection solution RxNorm: 736094 1 Milliliter(s) Inj EVERY 3 MONTHS No Start Date 01/03/2017 Inactive Claritin 10 mg tablet RxNorm: 421821 1 Tablet(s) PO daily No Start Date 07/17/2017 Inactive morphine ER 30 mg tablet,extended release RxNorm: 440836 1 Tablet(s) PO daily No Start Date 04/25/2016 Inactive Medication Administered Medication Codes Instructions Start Date Status cyanocobalamin (vit B-12) 1,000 mcg/mL injection solution RxNorm: 777814 1Milliliter 07/02/2018 No longer Active cyanocobalamin (vit B-12) 1,000 mcg/mL injection solution RxNorm: 850617 Milliliter 05/31/2018 No longer Active cyanocobalamin (vit B-12) 1,000 mcg/mL injection solution RxNorm: 885943 1Milliliter 05/03/2018 No longer Active cyanocobalamin (vit B-12) 1,000 mcg/mL injection solution RxNorm: 497695 1Milliliter 04/04/2018 No longer Active cyanocobalamin (vit B-12) 1,000 mcg/mL injection solution RxNorm: 820151 1Milliliter 03/05/2018 No longer Active cyanocobalamin (vit B-12) 1,000 mcg/mL injection solution RxNorm: 803134 1Milliliter 01/30/2018 No longer Active cyanocobalamin (vit B-12) 1,000 mcg/mL injection solution RxNorm: 365626 1Milliliter 01/01/2018 No longer Active cyanocobalamin (vit B-12) 1,000 mcg/mL injection solution RxNorm: 981246 1Milliliter 11/28/2017 No longer Active cyanocobalamin (vit B-12) 1,000 mcg/mL injection solution RxNorm: 013695 1Milliliter 10/24/2017 No longer Active cyanocobalamin (vit B-12) 1,000 mcg/mL injection solution RxNorm: 729581 1Milliliter 09/26/2017 No longer Active cyanocobalamin (vit B-12) 1,000 mcg/mL injection solution RxNorm: 740647 1Milliliter 08/10/2017 No longer Active cyanocobalamin (vit B-12) 1,000 mcg/mL injection solution RxNorm: 820835 1Milliliter 07/18/2017 No longer Active cyanocobalamin (vit B-12) 1,000 mcg/mL injection solution RxNorm: 320660 1Milliliter 05/16/2017 No longer Active cyanocobalamin (vit B-12) 1,000 mcg/mL injection solution RxNorm: 115428 1Milliliter 03/14/2017 No longer Active Kenalog 40 mg/mL suspension for injection RxNorm: 4129534 01/12/2017 No longer Active cyanocobalamin (vit B-12) 1,000 mcg/mL injection solution RxNorm: 179697 1Milliliter 01/12/2017 No longer Active ceftriaxone 500 mg solution for injection RxNorm: 9007264 1Millili01/12/2017 No longer Active cyanocobalamin (vit B-12) 1,000 mcg/mL injection solution RxNorm: 212706 1Milliliter 10/27/2016 No longer Active cyanocobalamin (vit B-12) 1,000 mcg/mL injection solution RxNorm: 317414 Milliliter 07/27/2016 No longer Active cyanocobalamin (vit B-12) 1,000 mcg/mL injection solution RxNorm: 582663 1Milliliter 04/26/2016 No longer Active Immunizations Vaccine [...] 32.9 pg 11/28/2017 Cbc With Differential Ord2 [place]% 12.6 % 11/28/2017 Cbc With Differential Ord2 [...] 2.87 K/ul 11/28/2017 Cbc With Differential Ord2 [place] ABS# 1.1 K/ul 11/28/2017 Cbc With Differential Ord2 Eos ABS# 0.3 K/ul 11/28/2017 Cbc With Differential Ord2 Baso ABS# 0.0 K/ul 11/28/2017 B12 Veo785 B12 >1500.00 pg/ml 11/28/2017 Comp Metabolic Ytz493 NA 139 mEq/L 11/28/2017 Comp Metabolic Gmq524 K 5.2 mEq/L 11/28/2017 Comp Metabolic Ewi658 CL 106 mEq/L 11/28/2017 Comp Metabolic Aem887 CO2 28.0 mEq/L 11/28/2017 Comp Metabolic Rza955 ANION GAP 10 11/28/2017 Comp Metabolic Jlg555 GLUCOSE 89 mg/dL 11/28/2017 Comp Metabolic Ijx629 Creat 1.1 mg/dL 11/28/2017 Comp Metabolic Ird708 eGFR 66 ml/min/1.73m2 11/28/2017 Comp Metabolic Ygm742 BUN 18 mg/dL 11/28/2017 Comp Metabolic Yah735 B/C Ratio 16.1 Ratio 11/28/2017 Comp Metabolic Udq621 CALCIUM 9.2 mg/dL 11/28/2017 Comp Metabolic Eio914 ALK PHOS 89 U/L 11/28/2017 Comp Metabolic Ijg401 AST(SGOT) 22 U/L 11/28/2017 Comp Metabolic Grf237 ALT(SGPT) 15 U/L 11/28/2017 Comp Metabolic Bgh041 BILI T 0.6 mg/dL 11/28/2017 Comp Metabolic Pzt443 ALBUMIN 3.9 g/dL 11/28/2017 Comp Metabolic Zkq913 TPRO 6.5 g/dL 11/28/2017 Comp Metabolic Zpl908 GLOB 2.6 g/dL 11/28/2017 Comp Metabolic Ilt564 A/G Ratio 1.5 Ratio 11/28/2017 Comp Metabolic Vaw257 Osmo 279 mOsmo 11/28/2017 Ferritin Ord22 FERRITIN [...] 100.7 fl 07/18/2017 Cbc With Differential Ord2 [place]% 12.3 % 07/18/2017 Cbc With Differential Ord2 [...] 2.90 K/ul 07/18/2017 Cbc With Differential Ord2 [place] ABS# 1.1 K/ul 07/18/2017 Cbc With Differential Ord2 Eos ABS# 0.2 K/ul 07/18/2017 Cbc With Differential Ord2 Baso ABS# 0.0 K/ul 07/18/2017 Comp Metabolic Fbx729 NA 140 mEq/L 07/18/2017 Comp Metabolic Vgh315 K 4.6 mEq/L 07/18/2017 Comp Metabolic Ikv216 CL 105 mEq/L 07/18/2017 Comp Metabolic Rjf499 CO2 29.0 mEq/L 07/18/2017 Comp Metabolic Acm010 ANION GAP 11 07/18/2017 Comp Metabolic Qnz071 GLUCOSE 96 mg/dL 07/18/2017 Comp Metabolic Nhf714 Creat 1.0 mg/dL 07/18/2017 Comp Metabolic Xxl111 eGFR 73 ml/min/1.73m2 07/18/2017 Comp Metabolic Wff348 BUN 12 mg/dL 07/18/2017 Comp Metabolic Vos634 B/C Ratio 11.7 Ratio 07/18/2017 Comp Metabolic Yko034 CALCIUM 9.2 mg/dL 07/18/2017 Comp Metabolic Dhc039 ALK PHOS 74 U/L 07/18/2017 Comp Metabolic Jdw729 AST(SGOT) 29 U/L 07/18/2017 Comp Metabolic Pdp345 ALT(SGPT) 16 U/L 07/18/2017 Comp Metabolic Vtc619 BILI T 0.7 mg/dL 07/18/2017 Comp Metabolic Uui728 ALBUMIN 3.7 g/dL 07/18/2017 Comp Metabolic Wpd355 TPRO 6.5 g/dL 07/18/2017 Comp Metabolic Iad169 GLOB 2.8 g/dL 07/18/2017 Comp Metabolic Vvj612 A/G Ratio 1.3 Ratio 07/18/2017 Comp Metabolic Shx341 Osmo 279 mOsmo 07/18/2017 Iron Ord72 Iron 114 ug/dl 07/18/2017 B12 Lcz484 B12 233.00 pg/ml 07/18/2017 Tsh Ord6 hTSH [...] 33.3 pg 12/13/2016 Cbc With Differential Ord2 [place]% 17.9 % 12/13/2016 Cbc With Differential Ord2 [...] 2.71 K/ul 12/13/2016 Cbc With Differential Ord2 [place] ABS# 1.7 K/ul 12/13/2016 Cbc With Differential Ord2 Eos ABS# 0.3 K/ul 12/13/2016 Cbc With Differential Ord2 Baso ABS# 0.0 K/ul 12/13/2016 Comp Metabolic Gpj677 NA 136 mEq/L 12/13/2016 Comp Metabolic Vbs202 K 4.7 mEq/L 12/13/2016 Comp Metabolic Iqu795 CL 102 mEq/L 12/13/2016 Comp Metabolic Uqi005 CO2 26.0 mEq/L 12/13/2016 Comp Metabolic Ush478 ANION GAP 13 12/13/2016 Comp Metabolic Zlc675 GLUCOSE 87 mg/dL 12/13/2016 Comp Metabolic Ojg721 Creat 0.9 mg/dL 12/13/2016 Comp Metabolic Osl278 eGFR 83 ml/min/1.73m2 12/13/2016 Comp Metabolic Snn777 BUN 17 mg/dL 12/13/2016 Comp Metabolic Enc349 B/C Ratio 18.3 Ratio 12/13/2016 Comp Metabolic Lov877 CALCIUM 9.1 mg/dL 12/13/2016 Comp Metabolic Zji889 ALK PHOS 90 U/L 12/13/2016 Comp Metabolic Oez571 AST(SGOT) 22 U/L 12/13/2016 Comp Metabolic Mui821 ALT(SGPT) 15 U/L 12/13/2016 Comp Metabolic Eaq610 BILI T 0.8 mg/dL 12/13/2016 Comp Metabolic Oow226 ALBUMIN 3.6 g/dL 12/13/2016 Comp Metabolic Std830 TPRO 6.4 g/dL 12/13/2016 Comp Metabolic Xrc729 GLOB 2.9 g/dL 12/13/2016 Comp Metabolic Rdf343 A/G Ratio 1.2 Ratio 12/13/2016 Comp Metabolic Ozj473 Osmo 273 mOsmo 12/13/2016 Lipid Ord30 CHOL 182 mg/dL 12/13/2016 Lipid Ord30 HDL 64.0 mg/dl 12/13/2016 Lipid Ord30 TRIG 62 mg/dL 12/13/2016 Lipid Ord30 LDL 106 mg/dL 12/13/2016 Lipid Ord30 C/HDL 2.8 Ratio 12/13/2016 Ferritin Ord22 FERRITIN 434.7 ng/mL 12/13/2016 B12 Mxb952 B12 247.00 pg/ml 12/13/2016 Tibc Ord40 Iron [...] 33.7 pg 04/27/2016 Cbc With Differential Ord2 [place]% 13.7 % 04/27/2016 Cbc With Differential Ord2 [...] 3.22 K/ul 04/27/2016 Cbc With Differential Ord2 [place] ABS# 1.2 K/ul 04/27/2016 Cbc With Differential Ord2 Eos ABS# 0.3 K/ul 04/27/2016 Cbc With Differential Ord2 Baso ABS# 0.0 K/ul 04/27/2016 Comp Metabolic Gmm917 NA 138 mEq/L 04/27/2016 Comp Metabolic Sod122 K 4.3 mEq/L 04/27/2016 Comp Metabolic Lia476 CL 104 mEq/L 04/27/2016 Comp Metabolic Dpm175 CO2 30.0 mEq/L 04/27/2016 Comp Metabolic Acx567 ANION GAP 8 04/27/2016 Comp Metabolic Iwl933 GLUCOSE 87 mg/dL 04/27/2016 Comp Metabolic Lew953 Creat 0.9 mg/dL 04/27/2016 Comp Metabolic Uyu521 eGFR 82 ml/min/1.73m2 04/27/2016 Comp Metabolic Cap873 BUN 13 mg/dL 04/27/2016 Comp Metabolic Apx690 B/C Ratio 13.8 Ratio 04/27/2016 Comp Metabolic Jkq792 CALCIUM 9.0 mg/dL 04/27/2016 Comp Metabolic Ycx493 ALK PHOS 62 U/L 04/27/2016 Comp Metabolic Wnh351 AST(SGOT) 24 U/L 04/27/2016 Comp Metabolic Uqu235 ALT(SGPT) 15 U/L 04/27/2016 Comp Metabolic Hid246 BILI T 0.7 mg/dL 04/27/2016 Comp Metabolic Qfb617 ALBUMIN 3.6 g/dL 04/27/2016 Comp Metabolic Wcc672 TPRO 6.1 g/dL 04/27/2016 Comp Metabolic Ink138 GLOB 2.5 g/dL 04/27/2016 Comp Metabolic Oyk452 A/G Ratio 1.4 Ratio 04/27/2016 Comp Metabolic Qay469 Osmo 275 mOsmo 04/27/2016 B12 Sdj415 B12 >1500.00 pg/ml 04/27/2016 Iron Ord72 Iron [...] Procedure Codes Date THER/PROPH/DIAG INJ SC/IM CPT-4: 94598 07/02/2018 VITAMIN B12 INJECTION CPT- 4: J3420 07/02/2018 THER/PROPH/DIAG INJ SC/IM CPT-4: 53748 05/31/2018 ADMIN INFLUENZA VIRUS VAC CPT-4: G0008 05/31/2018 VITAMIN B12 INJECTION CPT- 4: J3420 05/31/2018 FLU VACC PRSV FREE INC ANTIG Formatting Model/CDA Sections, Assigned to/Mary Grace Rosado CPT-4: 65280Rwruozp 05/31/2018 VITAMIN B12 INJECTION CPT- 4: J3420 05/03/2018 THER/PROPH/DIAG INJ SC/IM CPT-4: 06760 05/03/2018 THER/PROPH/DIAG INJ SC/IM CPT-4: 30686 04/04/2018 VITAMIN B12 INJECTION CPT- 4: J3420 04/04/2018 THER/PROPH/DIAG INJ SC/IM CPT-4: 12308 03/05/2018 VITAMIN B12 INJECTION CPT- 4: J3420 03/05/2018 VITAMIN B12 INJECTION CPT- 4: J3420 01/30/2018 THER/PROPH/DIAG INJ SC/IM CPT-4: 46939 01/30/2018 THER/PROPH/DIAG INJ SC/IM CPT-4: 32349 01/01/2018 VITAMIN B12 INJECTION CPT- 4: J3420 01/01/2018 PPPS, SUBSEQ VISIT CPT- 4: G0439 12/18/2017 THER/PROPH/DIAG INJ SC/IM CPT-4: 25436 11/28/2017 VITAMIN B12 INJECTION CPT- 4: J3420 11/28/2017 THER/PROPH/DIAG INJ SC/IM CPT-4: 71849 10/24/2017 VITAMIN B12 INJECTION CPT- 4: J3420 10/24/2017 THER/PROPH/DIAG INJ SC/IM CPT-4: 19888 09/26/2017 VITAMIN B12 INJECTION CPT- 4: J3420 09/26/2017 THER/PROPH/DIAG INJ SC/IM CPT-4: 29187 08/10/2017 VITAMIN B12 INJECTION CPT- 4: J3420 08/10/2017 THER/PROPH/DIAG INJ SC/IM CPT-4: 79697 07/18/2017 VITAMIN B12 INJECTION CPT- 4: J3420 07/18/2017 THER/PROPH/DIAG INJ SC/IM CPT-4: 84303 05/16/2017 VITAMIN B12 INJECTION CPT- 4: J3420 05/16/2017 THER/PROPH/DIAG INJ SC/IM CPT-4: 97343 03/14/2017 VITAMIN B12 INJECTION CPT- 4: J3420 03/14/2017 TRIAMCINOLONE ACET INJ NOS CPT-4: J3301 01/12/2017 ROCEPHIN, PER 250 MG CPT- 4: J0696 01/12/2017 VITAMIN B12 INJECTION CPT- 4: J3420 01/12/2017 THER/PROPH/DIAG INJ SC/IM CPT-4: 38308 01/12/2017 PPPS, SUBSEQ VISIT CPT- 4: G0439 12/12/2016 PNEUMOCOCCAL VACC [address]: 82503599 CPT-4: 38741 12/12/2016 ADMIN PNEUMOCOCCAL VACCINE SNOMED CT: 85669390 CPT-4: G0009 12/12/2016 THER/PROPH/DIAG INJ SC/IM CPT-4: 39882 10/27/2016 VITAMIN B12 INJECTION CPT- 4: J3420 10/27/2016 THER/PROPH/DIAG INJ SC/IM CPT-4: 71589 07/27/2016 VITAMIN B12 INJECTION CPT- 4: J3420 07/27/2016 THER/PROPH/DIAG INJ SC/IM CPT-4: 96181 04/26/2016 VITAMIN B12 INJECTION CPT- 4: J3420 04/26/2016 Vital Signs Date Vital 05/23/2018 Blood Pressure 1: 158/64 Code: 8480-6 BMI: 24.7 Code: 12093-0 Heart Rate 1: 76 bpm Height: 5'7" SpO2: 96% Temperature: 36.7 (C) / 98.1 (F) Weight: 158 lbs 05/03/2018 Blood Pressure 1: 122/72 Code: 8480-6 BMI: 25.1 Code: 22435-6 Heart Rate 1: 74 bpm Height: 5'7" SpO2: 97% Weight: 160 lbs 01/31/2018 Blood Pressure 1: 137/77 Code: 8480-6 Blood Pressure 2: 138/68 Code: 8480-6 Heart Rate 1: 67 bpm SpO2: 98% 01/30/2018 Blood Pressure 1: 138/66 Code: 8480-6 BMI: 25.1 Code: 31251-3 Heart Rate 1: 76 bpm Height: 5'7" SpO2: 94% Weight: 160 lbs 12/18/2017 Blood Pressure 1: 152/88 Code: 8480-6 BMI: 25.8 Code: 47441-6 Heart Rate 1: 68 bpm Height: 5'7" SpO2: 96% Weight: 165 lbs 11/28/2017 Blood Pressure 1: 150/76 Code: 8480-6 BMI: 25.2 Code: 35680-4 Heart Rate 1: 78 bpm Height: 5'7" SpO2: 98% Weight: 161 lbs 10/10/2017 Blood Pressure 1: 156/76 Code: 8480-6 BMI: 24.7 Code: 72207-1 Heart Rate 1: 71 bpm Height: 5'7" SpO2: 98% Weight: 158 lbs 09/26/2017 Blood Pressure 1: 162/82 Code: 8480-6 BMI: 24.7 Code: 20415-9 Heart Rate 1: 69 bpm Height: 5'7" SpO2: 99% Weight: 158 lbs 08/16/2017 Blood Pressure 1: 154/82 Code: 8480-6 BMI: 24.1 Code: 38285-6 Heart Rate 1: 58 bpm Height: 5'7" SpO2: 96% Weight: 154 lbs 07/18/2017 Blood Pressure 1: 152/88 Code: 8480-6 BMI: 25.2 Code: 15849-4 Heart Rate 1: 72 bpm Height: 5'7" SpO2: 98% Weight: 161 lbs 05/16/2017 Blood Pressure 1: 136/78 Code: 8480-6 BMI: 24.8 Code: 40291-4 Heart Rate 1: 71 bpm Height: 5'7" SpO2: 96% Weight: 158 lbs 8 oz 03/14/2017 Blood Pressure 1: 142/74 Code: 8480-6 BMI: 23.8 Code: 62057-1 Heart Rate 1: 69 bpm Height: 5'7" SpO2: 94% Weight: 152 lbs 01/12/2017 Blood Pressure 1: 156/90 Code: 8480-6 BMI: 23.4 Code: 76237-5 Heart Rate 1: 90 bpm Height: 5'7" SpO2: 97% Temperature: 37.4 (C) / 99.3 (F) Weight: 149 lbs 8 oz 12/12/2016 Blood Pressure 1: 140/78 Code: 8480-6 BMI: 24.3 Code: 33076-1 Heart Rate 1: 73 bpm Height: 5'7" SpO2: 96% Waist Measure (cm): 90 cm Weight: 155 lbs 12/08/2016 Blood Pressure 1: 148/84 Code: 8480-6 BMI: 24.3 Code: 50137-3 Heart Rate 1: 80 bpm Height: 5'7" SpO2: 96% Weight: 155 lbs 11/03/2016 Blood Pressure 1: 156/84 Code: 8480-6 Blood Pressure 2: 155/94 Code: 8480-6 BMI: 24.3 Code: 86535-0 Heart Rate 1: 81 bpm Height: 5'7" SpO2: 98% Weight: 155 lbs 10/06/2016 Blood Pressure 1: 175/95 Code: 8480-6 Heart Rate 1: 77 bpm Respiratory Rate: 16 bpm SpO2: 98% Temperature: 36.4 (C) / 97.5 (F) Weight: 157 lbs 09/06/2016 Blood Pressure 1: 136/80 Code: 8480-6 BMI: 24.1 Code: 91330-7 Heart Rate 1: 82 bpm Height: 5'8" SpO2: 97% Weight: 156 lbs 08/23/2016 Blood Pressure 1: 160/80 Code: 8480-6 BMI: 24.4 Code: 52343-6 Heart Rate 1: 88 bpm Height: 5'8" SpO2: 95% Weight: 158 lbs 04/26/2016 Blood Pressure 1: 156/74 Code: 8480-6 BMI: 24.5 Code: 06524-3 Heart Rate 1: 70 bpm Height: 5'8" [...] Directive data Encounters Encounter Performer Location Codes EST. PATIENT, LEVEL III Diagnosis: Dysphagia, pharyngoesophageal phase[ICD10: R13.14] [facility] CPT-4: 89314 05/23/2018 ([id number]) [id number] EST. PATIENT, LEVEL IV Diagnosis: Essential (primary) hypertension[ICD10: I10] Diagnosis: Chronic pain syndrome[ICD10: G89.4] Diagnosis: 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 deficiency[ICD10: D51.0] Diagnosis: Other iron deficiency anemias[ICD10: D50.8] Diagnosis: Slow transit constipation[ICD10: K59.01] [facility] CPT-4: 55473 05/03/2018 ([id number]) Miscellaneous no charge Diagnosis: Essential (primary) hypertension[ICD10: I10] Teresa [facility] MD, [facility] CPT-4: 63505 01/31/2018 ([id number]) [id number] EST. PATIENT, LEVEL IV Diagnosis: Essential (primary) hypertension[ICD10: I10] Diagnosis: Chronic pain syndrome[ICD10: G89.4] Andree Paris MD, [facility] CPT- 4: 27227 01/30/2018 ([id number]) [id number] EST. PATIENT, LEVEL IV Diagnosis: Essential (primary) hypertension[ICD10: I10] Diagnosis: Chronic pain syndrome[ICD10: G89.4] Diagnosis: 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 deficiency[ICD10: D51.0] Diagnosis: Iron deficiency anemia, unspecified[ICD10: D50.9] Ana Paris MD, [facility] CPT-4: 63990 11/28/2017 [id number] EST. PATIENT, LEVEL IV Diagnosis: Essential (primary) hypertension[ICD10: I10] Diagnosis: Slow transit constipation[ICD10: K59.01] Diagnosis: Chronic pain syndrome[ICD10: G89.4] Teresa Paris MD, [facility] CPT- 4: 04413 10/10/2017 [id number] EST. PATIENT, LEVEL IV Diagnosis: 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 deficiency[ICD10: D51.0] Diagnosis: Essential (primary) hypertension[ICD10: I10] Diagnosis: Chronic pain syndrome[ICD10: G89.4] Teresa Paris MD, [facility] CPT- 4: 25714 09/26/2017 [id number] EST. PATIENT, LEVEL III Diagnosis: Dysphagia, pharyngoesophageal phase[ICD10: R13.14] Teresa Paris MD, [facility] CPT-4: 48541 08/16/2017 ([id number]) [id number] EST. PATIENT, LEVEL IV Diagnosis: Essential (primary) hypertension[ICD10: I10] Diagnosis: Chronic pain syndrome[ICD10: G89.4] Diagnosis: 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 deficiency[ICD10: D51.0] Diagnosis: Iron deficiency anemia, unspecified[ICD10: D50.9] Diagnosis: Dysphagia, pharyngoesophageal phase[ICD10: R13.14] Ana Paris MD, [facility] CPT-4: 27203 07/18/2017 ([id number]) [id number] EST. PATIENT, LEVEL III Diagnosis: Essential (primary) hypertension[ICD10: I10] Diagnosis: Chronic pain syndrome[ICD10: G89.4] Diagnosis: 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 deficiency[ICD10: D51.0] Ana Paris MD, [facility] CPT-4: 42948 05/16/2017 ([id number]) [id number] EST. PATIENT, LEVEL III Diagnosis: Essential (primary) hypertension[ICD10: I10] Diagnosis: Chronic pain syndrome[ICD10: G89.4] Diagnosis: 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 deficiency[ICD10: D51.0] Ana Paris MD, [facility] CPT-4: 25133 03/14/2017 ([id number]) 62425 EST. PATIENT, LEVEL III Diagnosis: Cough[ICD10: R05] Diagnosis: Acute bronchitis, unspecified[ICD10: J20.9] Diagnosis: Chronic pain syndrome[ICD10: G89.4] Diagnosis: 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 deficiency[ICD10: D51.0] Ana [place] MD, [facility] CPT-4: 22601 01/12/2017 ([id number]) 75020 EST. 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 PATIENT, LEVEL III Diagnosis: Essential (primary) hypertension[ICD10: I10] Ana [place] MD, [facility] CPT-4: 29572 11/03/2016 ([id number]) 15130 EST. PATIENT, LEVEL III Diagnosis: Essential (primary) hypertension[ICD10: I10] Ana [place] MD, [facility] CPT-4: 27688 10/06/2016 ([id number]) 27860 EST. PATIENT, LEVEL III Diagnosis: Essential (primary) hypertension[ICD10: I10] [facility] [place] [facility] CPT-4: 29994 09/06/2016 ([id number]) 40296 EST. PATIENT, LEVEL III Diagnosis: Essential (primary) hypertension[ICD10: I10] [facility] [place] [facility] CPT-4: 27186 08/23/2016 ([id number]) OFFICE VISIT, NEW - LEVEL 4 Diagnosis: Noninfective gastroenteritis and colitis, unspecified[ICD10: K52.9] Diagnosis: Vitamin B12 deficiency anemia due to intrinsic factor deficiency[ICD10: D51.0] Diagnosis: Iron deficiency anemia, unspecified[ICD10: D50.9] Diagnosis: Chalazion left upper eyelid[ICD10: H00.14] Diagnosis: Elevated blood-pressure reading, without diagnosis of hypertension[ICD10: R03.0] [facility] [place] [facility] CPT-4: 94217 04/26/2016 Plan of Care Planned Activity Notes [...] plan. 05/23/2018 Appointment: Teresa Bardales WPtel: [address] [place], [place] [address] (15 min) [facility] 05/23/2018 Patient Education: Patient Medication Summary Completed [...] management. 05/03/2018 Appointment: Andree [place] WPtel: [phone] [facility] (15 min) Moderate 05/03/2018 Patient Education: Patient [...] of over-medication. 01/30/2018 App[facility]ment[facility] [place] [phone] ([facility] min) Moderate 01/30/2018 Patient Education: Patient [...] [phone] [facility] - Annual Wellness Visit 12/18/2017 [...] [phone] (30 min) Complex 11/28/2017 Patient Education: Patient [...] Bardales [facility]el[phone] (30 min) Complex 10/10/2017 Patient Education: Patient [...] over-medication. 09/26/2017 Appointment: Teresa Bardales [facility]Ptel[phone] (30 min) Complex 09/26/2017 Patient Education: Patient Medication Summary Completed 09/26/2017 Appointment: Teresa Bardales WPtel: [facility] (30 min) Complex 09/19/2017 Referral: External, Ordering Provider Referral Appointment Confirmed 08/17/2017 Visit Plan: Dysphagia - worsening since yesterday - will refer to Dr. Harper for possible EGD - pt is to notify clinic if symptoms do not improve, if they worsen, or with any acute changes, questions, or concerns. 08/16/2017 Appointment: Teresa Bardales WPtel: [phone] [facility] (30 min) Complex 08/16/2017 Patient Education: Patient Medication Summary Completed 08/16/2017 Care Plan: Referral Order SNOMED-CT : [id number] Pending 08/16/2017 Appointment: Injection 08/10/2017 Patient Education: [...] first 07/18/2017 Appointment: Ana Pedraza [facility]el[phone] [phone] (30 min) Complex 07/18/2017 Patient Education: Patient [...] of over-medication. 05/16/2017 Appointment: Ana Pedraza WPtel: [facility]5 [phone] [place] [address] (30 min) Complex 05/16/2017 Patient Education: Patient [...] over-medication. 03/14/2017 Appointment: Ana Pedraza WPtel: [phone] [phone] (30 min) Complex 03/14/2017 Patient Education: [...] of over-medication. 01/12/2017 Appointment: Ana Pedraza WPtel: [facility]5 [phone] (30 min) Complex 01/12/2017 Patient Education: [...] care surrogate. 12/12/2016 Appointment: Ana Pedraza WPtel: [address] [place] [address] - Annual Wellness Visit 12/12/2016 Patient Education: [...] of over-medication. 12/08/2016 Appointment: Ana Pedraza WPtel: [address] [place], [place] [phone] (30 min) [facility] 12/08/2016 Patient Education: Patient Medication Summary Completed [...] concerns. 11/03/2016 Appointment: Ana Pedraza WPtel: [phone] [phone] (30 min) Complex 11/03/2016 Patient Education: [...] concerns. 10/06/2016 Appointment: Ana Pedraza WPtel: [phone] [phone] (30 min) Complex 10/06/2016 Patient Education: [...] concerns. 09/06/2016 Appointment: Ana Pedraza [facility]Ptel[phone] (30 min) Complex 09/06/2016 Patient Education: Patient [...] concerns. 08/23/2016 Appointment: Ana Pedraza WPtel: [phone] [phone] [place] [address] (15 min) Moderate 08/23/2016 Patient Education: Patient [...] for gentamycin. 04/26/2016 Appointment: Andree [place] WPtel: [facility]5 [facility] New Patient 04/26/2016 Patient Education: Patient [...] with any acute changes, questions, or concerns. if your blood pressure is at [...]
--- OUTSIDE RECORDS SUMMARY | 2019-02-13 10:02 | XMS REPORT | CCD ---
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 Role Phone PP Unavailable CCM Unavailable Summary Purpose Interface Exchange Insurance Providers Payer name Policy type / Coverage type Covered republican ID Effective Begin Date Effective End Date WPS Medicare Part B Medicare Part B [id number] Unknown Unknown FOR LIFE WPS Medicare Part B [id number] Unknown Unknown Family history Father Diagnosis Age At Onset No Known Diseases N/A Mother Diagnosis Age At Onset No Known Diseases N/A Social History Social History Element Codes Description Effective Dates Marital status Unknown 04/26/2016 Number of children Unknown 3 04/26/2016 Employment Unknown Retired 04/26/[address]: 7796343 Former smoker Quit 1968 04/26/[address]: 289395 Currently drinks alcohol 04/26/2016 Has the patient [...] (vit B-12) 1,000 mcg/mL injection solution RxNorm: 579212 1 Milliliter(s) Inj 07/02/2018 07/02/2018 Inactive morphine ER 30 mg tablet,extended release RxNorm: 459450 1 Tablet(s) PO daily 07/02/2018 07/31/2018 Active morphine ER 30 mg tablet,extended release RxNorm: 851792 1 Tablet(s) PO daily 05/31/2018 06/29/2018 Inactive cyanocobalamin (vit B-12) 1,000 mcg/mL injection solution RxNorm: 160194 Milliliter(s) Inj 05/31/2018 05/31/2018 Inactive Protonix 40 mg tablet,delayed release RxNorm: 256209 1 Tablet(s) PO daily 05/23/2018 06/21/2018 Inactive Carafate 1 gram tablet RxNorm: 227191 1 Tablet(s) PO AC & HS as needed 05/23/2018 06/21/2018 Inactive cyanocobalamin (vit B-12) 1,000 mcg/mL injection solution RxNorm: 080831 1 Milliliter(s) Inj 05/03/2018 05/03/2018 Inactive morphine ER 30 mg tablet,extended release RxNorm: 747562 1 Tablet(s) PO daily 04/04/2018 05/03/2018 Inactive cyanocobalamin (vit B-12) 1,000 mcg/mL injection solution RxNorm: 084974 1 Milliliter(s) Inj 04/04/2018 04/04/2018 Inactive cyanocobalamin (vit B-12) 1,000 mcg/mL injection solution RxNorm: 637885 1 Milliliter(s) Inj 03/05/2018 03/05/2018 Inactive morphine ER 30 mg tablet,extended release RxNorm: 743963 1 Tablet(s) PO daily 03/05/2018 04/03/2018 Inactive cyanocobalamin (vit B-12) 1,000 mcg/mL injection solution RxNorm: 992478 1 Milliliter(s) Inj 01/30/2018 01/30/2018 Inactive cyanocobalamin (vit B-12) 1,000 mcg/mL injection solution RxNorm: 741618 1 Milliliter(s) Inj 01/01/2018 01/01/2018 Inactive morphine ER 30 mg tablet,extended release RxNorm: 916502 1 Tablet(s) PO daily 01/01/2018 01/30/2018 Inactive amlodipine 5 mg tablet RxNorm: 206444 1 Tablet(s) PO QPM 12/18/2017 06/15/2018 Inactive lisinopril 20 mg tablet RxNorm: 471644 1 Tablet(s) PO BID 12/18/2017 12/12/2018 Active cyanocobalamin (vit B-12) 1,000 mcg/mL injection solution RxNorm: 743509 1 Milliliter(s) Inj 11/28/2017 11/28/2017 Inactive morphine ER 30 mg tablet,extended release RxNorm: 969750 1 Tablet(s) PO daily 11/28/2017 12/27/2017 Inactive morphine ER 30 mg tablet,extended release RxNorm: 279812 1 Tablet(s) PO daily 11/09/2017 11/27/2017 Inactive cyanocobalamin (vit B-12) 1,000 mcg/mL injection solution RxNorm: 724404 1 Milliliter(s) Inj 10/24/2017 10/24/2017 Inactive morphine ER 30 mg tablet,extended release RxNorm: 366414 1 Tablet(s) PO daily 10/10/2017 11/08/2017 Inactive hydrochlorothiazide 25 mg tablet RxNorm: 126917 1 Tablet(s) PO daily 10/10/2017 11/08/2017 Inactive cyanocobalamin (vit B-12) 1,000 mcg/mL injection solution RxNorm: 494875 1 Milliliter(s) Inj 09/26/2017 09/26/2017 Inactive hydrochlorothiazide 12.5 mg tablet RxNorm: 904763 1 Tablet(s) PO daily 09/26/2017 10/25/2017 Inactive morphine ER 30 mg tablet,extended release RxNorm: 268808 1 Tablet(s) PO daily 09/12/2017 10/09/2017 Inactive cyanocobalamin (vit B-12) 1,000 mcg/mL injection solution RxNorm: 368890 1 Milliliter(s) Inj 08/10/2017 08/10/2017 Inactive morphine ER 30 mg tablet,extended release RxNorm: 542021 1 Tablet(s) PO daily 08/10/2017 09/08/2017 Inactive Vitamin B-12 1,000 mcg/mL injection solution RxNorm: 091222 1 Milliliter(s) Inj month 07/21/2017 No Stop Date Active B12 INJECTIONS MONTHLY cyanocobalamin (vit B-12) 1,000 mcg/mL injection solution RxNorm: 186087 1 Milliliter(s) Inj 07/18/2017 07/18/2017 Inactive morphine ER 30 mg tablet,extended release RxNorm: 891231 1 Tablet(s) PO daily 07/13/2017 08/09/2017 Inactive morphine ER 30 mg tablet,extended release RxNorm: 160185 1 Tablet(s) PO daily 06/15/2017 07/12/2017 Inactive cyanocobalamin (vit B-12) 1,000 mcg/mL injection solution RxNorm: 626823 1 Milliliter(s) Inj 05/16/2017 05/16/2017 Inactive morphine ER 30 mg tablet,extended release RxNorm: 513350 1 Tablet(s) PO daily 04/13/2017 05/12/2017 Inactive cyanocobalamin (vit B-12) 1,000 mcg/mL injection solution RxNorm: 962751 1 Milliliter(s) Inj 03/14/2017 03/14/2017 Inactive morphine ER 30 mg tablet,extended release RxNorm: 503932 1 Tablet(s) PO daily 03/14/2017 04/12/2017 Inactive morphine ER 30 mg tablet,extended release RxNorm: 894757 1 Tablet(s) PO daily 02/13/2017 03/13/2017 Inactive Kenalog 40 mg/mL suspension for injection RxNorm: 0444548 1 Milliliter(s) Inj 01/12/2017 01/12/2017 Inactive cyanocobalamin (vit B-12) 1,000 mcg/mL injection solution RxNorm: 849388 1 Milliliter(s) Inj 01/12/2017 01/12/2017 Inactive Zithromax Z-[place] 250 mg tablet RxNorm: 604893 1 Tablet(s) PO UD 01/12/2017 01/16/2017 Inactive ceftriaxone 500 mg solution for injection RxNorm: 5974028 1 Milliliter(s) Inj 01/12/2017 01/12/2017 Inactive Vitamin B-12 1,000 mcg/mL injection solution RxNorm: 432125 1 Milliliter(s) Inj EVERY OTHER MONTH 01/04/2017 07/20/2017 Inactive lisinopril 20 mg tablet RxNorm: 452976 1 Tablet(s) PO BID 01/02/2017 12/17/2017 Inactive lisinopril 20 mg tablet RxNorm: 140656 1 Tablet(s) PO BID 12/12/2016 01/01/2017 Inactive morphine ER 30 mg tablet,extended release RxNorm: 633425 1 Tablet(s) PO daily 12/08/2016 01/06/2017 Inactive lisinopril 20 mg tablet RxNorm: 641023 1 Tablet(s) PO BID 11/03/2016 12/11/2016 Inactive morphine ER 30 mg tablet,extended release RxNorm: 415288 1 Tablet(s) PO daily 11/03/2016 12/02/2016 Inactive cyanocobalamin (vit B-12) 1,000 mcg/mL injection solution RxNorm: 474971 1 Milliliter(s) Inj 10/27/2016 10/27/2016 Inactive lisinopril 10 mg tablet RxNorm: 683115 1 Tablet(s) PO BID 10/06/2016 11/02/2016 Inactive lisinopril 10 mg tablet RxNorm: 955201 1 Tablet(s) PO daily 09/06/2016 10/05/2016 Inactive morphine ER 30 mg tablet,extended release RxNorm: 700754 1 Tablet(s) PO daily 08/18/2016 09/16/2016 Inactive cyanocobalamin (vit B-12) 1,000 mcg/mL injection solution RxNorm: 508920 Milliliter(s) Inj 07/27/2016 07/27/2016 Inactive morphine ER 30 mg tablet,extended release RxNorm: 196584 1 Tablet(s) PO daily 07/21/2016 08/17/2016 Inactive morphine ER 30 mg tablet,extended release RxNorm: 637324 1 Tablet(s) PO daily 06/20/2016 07/19/2016 Inactive morphine ER 30 mg tablet,extended release RxNorm: 617295 1 Tablet(s) PO daily 05/20/2016 06/19/2016 Inactive cyanocobalamin (vit B-12) 1,000 mcg/mL injection solution RxNorm: 239805 1 Milliliter(s) Inj 04/26/2016 04/26/2016 Inactive gentamicin 0.3 % eye drops RxNorm: 978148 2 Drop(s) OPH Q4H 04/26/2016 05/02/2016 Inactive Venofer intravenous RxNorm: 41413 intravenous No Start Date Active Vitamin B-12 1,000 mcg/mL injection solution RxNorm: 421256 1 Milliliter(s) Inj EVERY 3 MONTHS No Start Date 01/03/2017 Inactive Claritin 10 mg tablet RxNorm: 053051 1 Tablet(s) PO daily No Start Date 07/17/2017 Inactive morphine ER 30 mg tablet,extended release RxNorm: 820173 1 Tablet(s) PO daily No Start Date 04/25/2016 Inactive Medication Administered Medication Codes Instructions Start Date Status cyanocobalamin (vit B-12) 1,000 mcg/mL injection solution RxNorm: 030192 1Milliliter 07/02/2018 Active cyanocobalamin (vit B-12) 1,000 mcg/mL injection solution RxNorm: 667949 Milliliter 05/31/2018 No longer Active cyanocobalamin (vit B-12) 1,000 mcg/mL injection solution RxNorm: 097977 1Milliliter 05/03/2018 No longer Active cyanocobalamin (vit B-12) 1,000 mcg/mL injection solution RxNorm: 349257 1Milliliter 04/04/2018 No longer Active cyanocobalamin (vit B-12) 1,000 mcg/mL injection solution RxNorm: 936002 1Milliliter 03/05/2018 No longer Active cyanocobalamin (vit B-12) 1,000 mcg/mL injection solution RxNorm: 092590 1Milliliter 01/30/2018 No longer Active cyanocobalamin (vit B-12) 1,000 mcg/mL injection solution RxNorm: 493533 1Milliliter 01/01/2018 No longer Active cyanocobalamin (vit B-12) 1,000 mcg/mL injection solution RxNorm: 352658 1Milliliter 11/28/2017 No longer Active cyanocobalamin (vit B-12) 1,000 mcg/mL injection solution RxNorm: 545733 1Milliliter 10/24/2017 No longer Active cyanocobalamin (vit B-12) 1,000 mcg/mL injection solution RxNorm: 440466 1Milliliter 09/26/2017 No longer Active cyanocobalamin (vit B-12) 1,000 mcg/mL injection solution RxNorm: 506984 1Milliliter 08/10/2017 No longer Active cyanocobalamin (vit B-12) 1,000 mcg/mL injection solution RxNorm: 510471 1Milliliter 07/18/2017 No longer Active cyanocobalamin (vit B-12) 1,000 mcg/mL injection solution RxNorm: 589951 1Milliliter 05/16/2017 No longer Active cyanocobalamin (vit B-12) 1,000 mcg/mL injection solution RxNorm: 724351 1Milliliter 03/14/2017 No longer Active Kenalog 40 mg/mL suspension for injection RxNorm: 9996858 1Milliliter 01/12/2017 No longer Active cyanocobalamin (vit B-12) 1,000 mcg/mL injection solution RxNorm: 232310 1Milliliter 01/12/2017 No longer Active ceftriaxone 500 mg solution for injection RxNorm: 6042872 1Milliliter 01/12/2017 No longer Active cyanocobalamin (vit B-12) 1,000 mcg/mL injection solution RxNorm: 361388 1Milliliter 10/27/2016 No longer Active cyanocobalamin (vit B-12) 1,000 mcg/mL injection solution RxNorm: 782600 Milliliter 07/27/2016 No longer Active cyanocobalamin (vit B-12) 1,000 mcg/mL injection solution RxNorm: 526180 1Milliliter 04/26/2016 No longer Active Immunizations Vaccine [...] Observation Code Item Item Code Result Date [facility] Ord40 Iron 127 ug/dl 11/28/2017 Tibc Ord40 [...] 32.9 pg 11/28/2017 Cbc With Differential Ord2 Burnett% 12.6 % 11/28/2017 Cbc With Differential Ord2 [...] 2.87 K/ul 11/28/2017 Cbc With Differential Ord2 [place]ett ABS# 1.1 K/ul 11/28/2017 Cbc With Differential Ord2 Eos ABS# 0.3 K/ul 11/28/2017 Cbc With Differential Ord2 Baso ABS# 0.0 K/ul 11/28/2017 B12 Arb077 B12 >1500.00 pg/ml 11/28/2017 Comp Metabolic Ryq341 NA 139 mEq/L 11/28/2017 Comp Metabolic Wsl515 K 5.2 mEq/L 11/28/2017 Comp Metabolic Myl387 CL 106 mEq/L 11/28/2017 Comp Metabolic Rqn951 CO2 28.0 mEq/L 11/28/2017 Comp Metabolic Xhn534 ANION GAP 10 11/28/2017 Comp Metabolic Gsf887 GLUCOSE 89 mg/dL 11/28/2017 Comp Metabolic Qby822 Creat 1.1 mg/dL 11/28/2017 Comp Metabolic Bct967 eGFR 66 ml/min/1.73m2 11/28/2017 Comp Metabolic Kqm494 BUN 18 mg/dL 11/28/2017 Comp Metabolic Cwz329 B/C Ratio 16.1 Ratio 11/28/2017 Comp Metabolic Xkp573 CALCIUM 9.2 mg/dL 11/28/2017 Comp Metabolic Nzk639 ALK PHOS 89 U/L 11/28/2017 Comp Metabolic Iun818 AST(SGOT) 22 U/L 11/28/2017 Comp Metabolic Eft404 ALT(SGPT) 15 U/L 11/28/2017 Comp Metabolic Cho865 BILI T 0.6 mg/dL 11/28/2017 Comp Metabolic Lqh865 ALBUMIN 3.9 g/dL 11/28/2017 Comp Metabolic Vph588 TPRO 6.5 g/dL 11/28/2017 Comp Metabolic Qls091 GLOB 2.6 g/dL 11/28/2017 Comp Metabolic Qmn159 A/G Ratio 1.5 Ratio 11/28/2017 Comp Metabolic Mne098 Osmo 279 mOsmo 11/28/2017 Ferritin Ord22 FERRITIN [...] 100.7 fl 07/18/2017 Cbc With Differential Ord2 Burnett% 12.3 % 07/18/2017 Cbc With Differential Ord2 [...] 2.90 K/ul 07/18/2017 Cbc With Differential Ord2 [place] ABS# 1.1 K/ul 07/18/2017 Cbc With Differential Ord2 Eos ABS# 0.2 K/ul 07/18/2017 Cbc With Differential Ord2 Baso ABS# 0.0 K/ul 07/18/2017 Comp Metabolic Vcj123 NA 140 mEq/L 07/18/2017 Comp Metabolic Knx079 K 4.6 mEq/L 07/18/2017 Comp Metabolic Dke157 CL 105 mEq/L 07/18/2017 Comp Metabolic Bvr329 CO2 29.0 mEq/L 07/18/2017 Comp Metabolic Ffw233 ANION GAP 11 07/18/2017 Comp Metabolic Prq419 GLUCOSE 96 mg/dL 07/18/2017 Comp Metabolic Zwi668 Creat 1.0 mg/dL 07/18/2017 Comp Metabolic Hzv373 eGFR 73 ml/min/1.73m2 07/18/2017 Comp Metabolic Kcs803 BUN 12 mg/dL 07/18/2017 Comp Metabolic Smx656 B/C Ratio 11.7 Ratio 07/18/2017 Comp Metabolic Unc897 CALCIUM 9.2 mg/dL 07/18/2017 Comp Metabolic Siw144 ALK PHOS 74 U/L 07/18/2017 Comp Metabolic Asg056 AST(SGOT) 29 U/L 07/18/2017 Comp Metabolic Xkh662 ALT(SGPT) 16 U/L 07/18/2017 Comp Metabolic Esj111 BILI T 0.7 mg/dL 07/18/2017 Comp Metabolic Dwl733 ALBUMIN 3.7 g/dL 07/18/2017 Comp Metabolic Dmt959 TPRO 6.5 g/dL 07/18/2017 Comp Metabolic Wlu138 GLOB 2.8 g/dL 07/18/2017 Comp Metabolic Nng301 A/G Ratio 1.3 Ratio 07/18/2017 Comp Metabolic Stc113 Osmo 279 mOsmo 07/18/2017 Iron Ord72 Iron 114 ug/dl 07/18/2017 B12 Peh059 B12 233.00 pg/ml 07/18/2017 Tsh Ord6 hTSH [...] 33.3 pg 12/13/2016 Cbc With Differential Ord2 Burnett% 17.9 % 12/13/2016 Cbc With Differential Ord2 [...] 2.71 K/ul 12/13/2016 Cbc With Differential Ord2 [place] ABS# 1.7 K/ul 12/13/2016 Cbc With Differential Ord2 Eos ABS# 0.3 K/ul 12/13/2016 Cbc With Differential Ord2 Baso ABS# 0.0 K/ul 12/13/2016 Comp Metabolic Ffq066 NA 136 mEq/L 12/13/2016 Comp Metabolic Kyn782 K 4.7 mEq/L 12/13/2016 Comp Metabolic Kym433 CL 102 mEq/L 12/13/2016 Comp Metabolic Fsj694 CO2 26.0 mEq/L 12/13/2016 Comp Metabolic Izd252 ANION GAP 13 12/13/2016 Comp Metabolic Qjo406 GLUCOSE 87 mg/dL 12/13/2016 Comp Metabolic Isl038 Creat 0.9 mg/dL 12/13/2016 Comp Metabolic Bku691 eGFR 83 ml/min/1.73m2 12/13/2016 Comp Metabolic Dwu998 BUN 17 mg/dL 12/13/2016 Comp Metabolic Edh313 B/C Ratio 18.3 Ratio 12/13/2016 Comp Metabolic Hre930 CALCIUM 9.1 mg/dL 12/13/2016 Comp Metabolic Jlz361 ALK PHOS 90 U/L 12/13/2016 Comp Metabolic Tjm983 AST(SGOT) 22 U/L 12/13/2016 Comp Metabolic Fgg350 ALT(SGPT) 15 U/L 12/13/2016 Comp Metabolic Pjh524 BILI T 0.8 mg/dL 12/13/2016 Comp Metabolic Gve593 ALBUMIN 3.6 g/dL 12/13/2016 Comp Metabolic Yym523 TPRO 6.4 g/dL 12/13/2016 Comp Metabolic Eit352 GLOB 2.9 g/dL 12/13/2016 Comp Metabolic Ngy927 A/G Ratio 1.2 Ratio 12/13/2016 Comp Metabolic Ekz587 Osmo 273 mOsmo 12/13/2016 Lipid Ord30 CHOL 182 mg/dL 12/13/2016 Lipid Ord30 HDL 64.0 mg/dl 12/13/2016 Lipid Ord30 TRIG 62 mg/dL 12/13/2016 Lipid Ord30 LDL 106 mg/dL 12/13/2016 Lipid Ord30 C/HDL 2.8 Ratio 12/13/2016 Ferritin Ord22 FERRITIN 434.7 ng/mL 12/13/2016 B12 Kbe752 B12 247.00 pg/ml 12/13/2016 Tibc Ord40 Iron [...] 33.7 pg 04/27/2016 Cbc With Differential Ord2 Burnett% 13.7 % 04/27/2016 Cbc With Differential Ord2 [...] 3.22 K/ul 04/27/2016 Cbc With Differential Ord2 [place] ABS# 1.2 K/ul 04/27/2016 Cbc With Differential Ord2 Eos ABS# 0.3 K/ul 04/27/2016 Cbc With Differential Ord2 Baso ABS# 0.0 K/ul 04/27/2016 Comp Metabolic Ghc351 NA 138 mEq/L 04/27/2016 Comp Metabolic Zyd601 K 4.3 mEq/L 04/27/2016 Comp Metabolic Fzt252 CL 104 mEq/L 04/27/2016 Comp Metabolic Ybv679 CO2 30.0 mEq/L 04/27/2016 Comp Metabolic Uxu456 ANION GAP 8 04/27/2016 Comp Metabolic Ihg330 GLUCOSE 87 mg/dL 04/27/2016 Comp Metabolic Kwu131 Creat 0.9 mg/dL 04/27/2016 Comp Metabolic Xmz653 eGFR 82 ml/min/1.73m2 04/27/2016 Comp Metabolic Kng743 BUN 13 mg/dL 04/27/2016 Comp Metabolic Swo198 B/C Ratio 13.8 Ratio 04/27/2016 Comp Metabolic Mkt108 CALCIUM 9.0 mg/dL 04/27/2016 Comp Metabolic Opy594 ALK PHOS 62 U/L 04/27/2016 Comp Metabolic Sua119 AST(SGOT) 24 U/L 04/27/2016 Comp Metabolic Pbf765 ALT(SGPT) 15 U/L 04/27/2016 Comp Metabolic Npl711 BILI T 0.7 mg/dL 04/27/2016 Comp Metabolic Tlz773 ALBUMIN 3.6 g/dL 04/27/2016 Comp Metabolic Wjc503 TPRO 6.1 g/dL 04/27/2016 Comp Metabolic Hrk058 GLOB 2.5 g/dL 04/27/2016 Comp Metabolic Lsz150 A/G Ratio 1.4 Ratio 04/27/2016 Comp Metabolic Auq587 Osmo 275 mOsmo 04/27/2016 B12 Iia093 B12 >1500.00 pg/ml 04/27/2016 Iron Ord72 Iron [...] Procedure Codes Date THER/PROPH/DIAG INJ SC/IM CPT-4: 45323 07/02/2018 VITAMIN B12 INJECTION CPT- 4: J3420 07/02/2018 THER/PROPH/DIAG INJ SC/IM CPT-4: 97215 05/31/2018 ADMIN INFLUENZA VIRUS VAC CPT-4: G0008 05/31/2018 VITAMIN B12 INJECTION CPT- 4: J3420 05/31/2018 FLU VACC PRSV FREE INC ANTIG Formatting Model/CDA Sections, Assigned to/Mary Grace Rosado CPT-4: 65423Cbaidjd 05/31/2018 VITAMIN B12 INJECTION CPT- 4: J3420 05/03/2018 THER/PROPH/DIAG INJ SC/IM CPT-4: 33349 05/03/2018 THER/PROPH/DIAG INJ SC/IM CPT-4: 79964 04/04/2018 VITAMIN B12 INJECTION CPT- 4: J3420 04/04/2018 THER/PROPH/DIAG INJ SC/IM CPT-4: 91018 03/05/2018 VITAMIN B12 INJECTION CPT- 4: J3420 03/05/2018 VITAMIN B12 INJECTION CPT- 4: J3420 01/30/2018 THER/PROPH/DIAG INJ SC/IM CPT-4: 65828 01/30/2018 THER/PROPH/DIAG INJ SC/IM CPT-4: 61990 01/01/2018 VITAMIN B12 INJECTION CPT- 4: J3420 01/01/2018 PPPS, SUBSEQ VISIT CPT- 4: G0439 12/18/2017 THER/PROPH/DIAG INJ SC/IM CPT-4: 47335 11/28/2017 VITAMIN B12 INJECTION CPT- 4: J3420 11/28/2017 THER/PROPH/DIAG INJ SC/IM CPT-4: 84593 10/24/2017 VITAMIN B12 INJECTION CPT- 4: J3420 10/24/2017 THER/PROPH/DIAG INJ SC/IM CPT-4: 67597 09/26/2017 VITAMIN B12 INJECTION CPT- 4: J3420 09/26/2017 THER/PROPH/DIAG INJ SC/IM CPT-4: 47673 08/10/2017 VITAMIN B12 INJECTION CPT- 4: J3420 08/10/2017 THER/PROPH/DIAG INJ SC/IM CPT-4: 43735 07/18/2017 VITAMIN B12 INJECTION CPT- 4: J3420 07/18/2017 THER/PROPH/DIAG INJ SC/IM CPT-4: 43336 05/16/2017 VITAMIN B12 INJECTION CPT- 4: J3420 05/16/2017 THER/PROPH/DIAG INJ SC/IM CPT-4: 29243 03/14/2017 VITAMIN B12 INJECTION CPT- 4: J3420 03/14/2017 TRIAMCINOLONE ACET INJ NOS CPT-4: J3301 01/12/2017 ROCEPHIN, PER 250 MG CPT- 4: J0696 01/12/2017 VITAMIN B12 INJECTION CPT- 4: J3420 01/12/2017 THER/PROPH/DIAG INJ SC/IM CPT-4: 48191 01/12/2017 PPPS, SUBSEQ VISIT CPT- 4: G0439 12/12/2016 PNEUMOCOCCAL VACC [address]: 70858430 CPT-4: 76105 12/12/2016 ADMIN PNEUMOCOCCAL VACCINE SNOMED CT: 00411444 CPT-4: G0009 12/12/2016 THER/PROPH/DIAG INJ SC/IM CPT-4: 59675 10/27/2016 VITAMIN B12 INJECTION CPT- 4: J3420 10/27/2016 THER/PROPH/DIAG INJ SC/IM CPT-4: 57944 07/27/2016 VITAMIN B12 INJECTION CPT- 4: J3420 07/27/2016 THER/PROPH/DIAG INJ SC/IM CPT-4: 52090 04/26/2016 VITAMIN B12 INJECTION CPT- 4: J3420 04/26/2016 Vital Signs Date Vital 05/23/2018 Blood Pressure 1: 158/64 Code: 8480-6 BMI: 24.7 Code: 63858-6 Heart Rate 1: 76 bpm Height: 5'7" SpO2: 96% Temperature: 36.7 (C) / 98.1 (F) Weight: 158 lbs 05/03/2018 Blood Pressure 1: 122/72 Code: 8480-6 BMI: 25.1 Code: 66399-5 Heart Rate 1: 74 bpm Height: 5'7" SpO2: 97% Weight: 160 lbs 01/31/2018 Blood Pressure 1: 137/77 Code: 8480-6 Blood Pressure 2: 138/68 Code: 8480-6 Heart Rate 1: 67 bpm SpO2: 98% 01/30/2018 Blood Pressure 1: 138/66 Code: 8480-6 BMI: 25.1 Code: 77015-9 Heart Rate 1: 76 bpm Height: 5'7" SpO2: 94% Weight: 160 lbs 12/18/2017 Blood Pressure 1: 152/88 Code: 8480-6 BMI: 25.8 Code: 49636-0 Heart Rate 1: 68 bpm Height: 5'7" SpO2: 96% Weight: 165 lbs 11/28/2017 Blood Pressure 1: 150/76 Code: 8480-6 BMI: 25.2 Code: 62206-7 Heart Rate 1: 78 bpm Height: 5'7" SpO2: 98% Weight: 161 lbs 10/10/2017 Blood Pressure 1: 156/76 Code: 8480-6 BMI: 24.7 Code: 84236-3 Heart Rate 1: 71 bpm Height: 5'7" SpO2: 98% Weight: 158 lbs 09/26/2017 Blood Pressure 1: 162/82 Code: 8480-6 BMI: 24.7 Code: 17877-4 Heart Rate 1: 69 bpm Height: 5'7" SpO2: 99% Weight: 158 lbs 08/16/2017 Blood Pressure 1: 154/82 Code: 8480-6 BMI: 24.1 Code: 47326-6 Heart Rate 1: 58 bpm Height: 5'7" SpO2: 96% Weight: 154 lbs 07/18/2017 Blood Pressure 1: 152/88 Code: 8480-6 BMI: 25.2 Code: 91469-4 Heart Rate 1: 72 bpm Height: 5'7" SpO2: 98% Weight: 161 lbs 05/16/2017 Blood Pressure 1: 136/78 Code: 8480-6 BMI: 24.8 Code: 33123-3 Heart Rate 1: 71 bpm Height: 5'7" SpO2: 96% Weight: 158 lbs 8 oz 03/14/2017 Blood Pressure 1: 142/74 Code: 8480-6 BMI: 23.8 Code: 21540-7 Heart Rate 1: 69 bpm Height: 5'7" SpO2: 94% Weight: 152 lbs 01/12/2017 Blood Pressure 1: 156/90 Code: 8480-6 BMI: 23.4 Code: 12363-6 Heart Rate 1: 90 bpm Height: 5'7" SpO2: 97% Temperature: 37.4 (C) / 99.3 (F) Weight: 149 lbs 8 oz 12/12/2016 Blood Pressure 1: 140/78 Code: 8480-6 BMI: 24.3 Code: 73570-0 Heart Rate 1: 73 bpm Height: 5'7" SpO2: 96% Waist Measure (cm): 90 cm Weight: 155 lbs 12/08/2016 Blood Pressure 1: 148/84 Code: 8480-6 BMI: 24.3 Code: 15734-5 Heart Rate 1: 80 bpm Height: 5'7" SpO2: 96% Weight: 155 lbs 11/03/2016 Blood Pressure 1: 156/84 Code: 8480-6 Blood Pressure 2: 155/94 Code: 8480-6 BMI: 24.3 Code: 43098-6 Heart Rate 1: 81 bpm Height: 5'7" SpO2: 98% Weight: 155 lbs 10/06/2016 Blood Pressure 1: 175/95 Code: 8480-6 Heart Rate 1: 77 bpm Respiratory Rate: 16 bpm SpO2: 98% Temperature: 36.4 (C) / 97.5 (F) Weight: 157 lbs 09/06/2016 Blood Pressure 1: 136/80 Code: 8480-6 BMI: 24.1 Code: 16773-1 Heart Rate 1: 82 bpm Height: 5'8" SpO2: 97% Weight: 156 lbs 08/23/2016 Blood Pressure 1: 160/80 Code: 8480-6 BMI: 24.4 Code: 76856-0 Heart Rate 1: 88 bpm Height: 5'8" SpO2: 95% Weight: 158 lbs 04/26/2016 Blood Pressure 1: 156/74 Code: 8480-6 BMI: 24.5 Code: 25401-4 Heart Rate 1: 70 bpm Height: 5'8" [...] data Encounters Encounter Performer Location Codes Date [id number] EST. PATIENT, LEVEL III Diagnosis: Dysphagia, pharyngoesophageal phase[ICD10: R13.14] [facility] CPT-4: 11082 05/23/2018 ([id number]) [id number] EST. PATIENT, LEVEL IV Diagnosis: Essential (primary) hypertension[ICD10: I10] Diagnosis: Chronic pain syndrome[ICD10: G89.4] Diagnosis: Vitamin B12 deficiency anemia due to intrinsic factor deficiency[ICD10: D51.0] Diagnosis: Other iron deficiency anemias[ICD10: D50.8] Diagnosis: Slow transit constipation[ICD10: K59.01] [facility] CPT-4: 18335 05/03/2018 ([id number]) Miscellaneous no charge Diagnosis: Essential (primary) hypertension[ICD10: I10] Teresa Paris MD, [facility] CPT-4: 98923 01/31/2018 ([id number]) 22782 EST. PATIENT, LEVEL IV Diagnosis: Essential (primary) hypertension[ICD10: I10] Diagnosis: Chronic pain syndrome[ICD10: G89.4] Andree Paris MD, [facility] CPT- 4: 15052 01/30/2018 ([id number]) [id number] EST. PATIENT, LEVEL IV Diagnosis: Essential (primary) hypertension[ICD10: I10] Diagnosis: Chronic pain syndrome[ICD10: G89.4] Diagnosis: Vitamin B12 deficiency anemia due to intrinsic factor deficiency[ICD10: D51.0] Diagnosis: Iron deficiency anemia, unspecified[ICD10: D50.9] Ana Paris MD, [facility] CPT-4: 06442 11/28/2017 [id number] EST. PATIENT, LEVEL IV Diagnosis: Essential (primary) hypertension[ICD10: I10] Diagnosis: Slow transit constipation[ICD10: K59.01] Diagnosis: Chronic pain syndrome[ICD10: G89.4] Teresa Paris MD, [facility] CPT- 4: 06036 10/10/2017 [id number] EST. PATIENT, LEVEL IV Diagnosis: Vitamin B12 deficiency anemia due to intrinsic factor deficiency[ICD10: D51.0] Diagnosis: Essential (primary) hypertension[ICD10: I10] Diagnosis: Chronic pain syndrome[ICD10: G89.4] eTresa Paris MD, [facility] CPT- 4: 09120 09/26/2017 [id number] EST. PATIENT, LEVEL III Diagnosis: Dysphagia, pharyngoesophageal phase[ICD10: R13.14] Teresa Paris MD, [facility] CPT-4: 28125 08/16/2017 ([id number]) [id number] EST. PATIENT, LEVEL IV Diagnosis: Essential (primary) hypertension[ICD10: I10] Diagnosis: Chronic pain syndrome[ICD10: G89.4] Diagnosis: Vitamin B12 deficiency anemia due to intrinsic factor deficiency[ICD10: D51.0] Diagnosis: Iron deficiency anemia, unspecified[ICD10: D50.9] Diagnosis: Dysphagia, pharyngoesophageal phase[ICD10: R13.14] Ana Paris MD, [facility] CPT-4: 34547 07/18/2017 ([id number]) 45136 EST. PATIENT, LEVEL III Diagnosis: Essential (primary) hypertension[ICD10: I10] Diagnosis: Chronic pain syndrome[ICD10: G89.4] Diagnosis: Vitamin B12 deficiency anemia due to intrinsic factor deficiency[ICD10: D51.0] Ana Paris MD, [facility] CPT-4: 41541 05/16/2017 ([id number]) 14621 EST. PATIENT, LEVEL III Diagnosis: Essential (primary) hypertension[ICD10: I10] Diagnosis: Chronic pain syndrome[ICD10: G89.4] Diagnosis: Vitamin B12 deficiency anemia due to intrinsic factor deficiency[ICD10: D51.0] Ana Paris MD, [facility] CPT-4: 65228 03/14/2017 ([id number]) 09121 EST. PATIENT, LEVEL III Diagnosis: Cough[ICD10: R05] Diagnosis: Acute bronchitis, unspecified[ICD10: J20.9] Diagnosis: Chronic pain syndrome[ICD10: G89.4] Diagnosis: Vitamin B12 deficiency anemia due to intrinsic factor deficiency[ICD10: D51.0] Ana Paris MD, [facility] CPT-4: 81399 01/12/2017 ([id number]) 12058 EST. PATIENT, LEVEL III Diagnosis: Essential (primary) hypertension[ICD10: I10] Diagnosis: Chronic pain syndrome[ICD10: G89.4] Ana Paris MD, [facility] CPT-4: 89617 12/08/2016 ([id number]) 75420 EST. PATIENT, LEVEL III Diagnosis: Essential (primary) hypertension[ICD10: I10] Ana Paris MD, [facility] CPT-4: 50733 11/03/2016 ([id number]) 07483 EST. PATIENT, LEVEL III Diagnosis: Essential (primary) hypertension[ICD10: I10] Ana Paris MD, [facility] CPT-4: 86643 10/06/2016 ([id number]) 91276 EST. PATIENT, LEVEL III Diagnosis: Essential (primary) hypertension[ICD10: I10] [facility] CPT-4: 90618 09/06/2016 ([id number] 38129 EST. PATIENT, LEVEL III Diagnosis: Essential (primary) hypertension[ICD10: I10] [facility] CPT-4: 96049 08/23/2016 ([id number]) OFFICE VISIT, NEW - LEVEL 4 Diagnosis: Noninfective gastroenteritis and colitis, unspecified[ICD10: K52.9] Diagnosis: Vitamin B12 deficiency anemia due to intrinsic factor deficiency[ICD10: D51.0] Diagnosis: Iron deficiency anemia, unspecified[ICD10: D50.9] Diagnosis: Chalazion left upper eyelid[ICD10: H00.14] Diagnosis: Elevated blood-pressure reading, without diagnosis of hypertension[ICD10: R03.0] [facility] CPT-4: 93497 04/26/2016 Plan of Care Planned Activity Notes Codes Status Date Patient Education: Patient Medication Summary Completed 07/02/2018 [...] treatment plan. 05/23/2018 Appointment: [facility] (15 min) Moderate 05/23/2018 Patient Education: Patient [...] management. 05/03/2018 [phone] ([facility] min) Moderate 05/03/2018 Patient Education: [...] over-medication. 01/30/2018 [phone] (15 min) Moderate 01/30/2018 Patient Education: [...] concerns. 12/18/2017 Appointment: [facility] Pedra[phone] [facility] [phone] [facility] - Annual Wellness Visit 12/18/2017 Patient [...] labs 11/28/2017 Appointment: [facility] Ped[phone] [facility] [phone] (30 min) Complex 11/28/2017 Patient Education: Patient [...] on this regimen. 10/10/2017 Appointment: Teresa [facility]el[phone] [facility] [place] (30 min) Complex 10/10/2017 Patient Education: Patient [...] over-medication. 09/26/2017 Appointment: Teresa Bardales [phone] [facility] (30 min) Complex 09/26/2017 Patient Education: Patient Medication Summary Completed 09/26/2017 Appointment: Teresa Bardales [phone] [facility] [place] [place] (30 min) Complex 09/19/2017 Referral: External, Ordering Provider Referral Appointment Confirmed 08/17/2017 Visit Plan: Dysphagia - worsening since yesterday - will refer to Dr. Harper for possible EGD - pt is to notify clinic if symptoms do not improve, if they worsen, or with any acute changes, questions, or concerns. 08/16/2017 Appointment: Teresa Bardales WPtel[facility] (30 min) Complex 08/16/2017 Patient Education: Patient Medication Summary Completed 08/16/2017 Care Plan: Referral Order SNOMED-CT : [id number] Pending 08/16/2017 Appointment: Injection 08/10/2017 Patient Education: [...] today first 07/18/2017 Appointment: Ana Pedraza WPtel: [facility] (30 min) Complex 07/18/2017 Patient Education: Patient [...] of over-medication. 05/16/2017 Appointment: Ana Pedraza WPtel: [facility] [place] (30 min) Complex 05/16/2017 Patient Education: [...] over-medication. 03/14/2017 Appointment: Ana Pedraza WPtel: [phone] [facility] [place] [address] (30 min) Complex 03/14/2017 Patient Education: Patient [...] of over-medication. 01/12/2017 Appointment: Ana Pedraza WPtel: [facility] [place] [address] (30 min) Complex 01/12/2017 Patient Education: Patient [...] surrogate. 12/12/2016 Appointment: Ana Pedraza WPtel: [phone] [place] [phone] [facility] - Annual Wellness Visit 12/12/2016 Patient [...] over-medication. 12/08/2016 Appointment: [facility] Pedraza [facility]Ptel[facility] [phone] [phone] (30 min) Complex 12/08/2016 Patient Education: Patient [...] concerns. 11/03/2016 Appointment: Ana Pedraza WPtel: [phone] [phone] (30 min) Complex 11/03/2016 Patient Education: [...] concerns. 10/06/2016 Appointment: Ana Pedraza WPtel: [phone] [phone] (30 min) Complex 10/06/2016 Patient Education: [...] concerns. 09/06/2016 Appointment: [facility] Pedraza [facility] [phone] [phone] (30 min) Complex 09/06/2016 Patient Education: Patient [...] acute concerns. 08/23/2016 Appointment: Ana Pedraza WPtel: [phone] [phone] (15 min) Moderate 08/23/2016 Patient Education: [...] gentamycin. 04/26/2016 [facility]ment: [phone] [facility] 04/26/2016 Patient Education: Patient [...] management. . Dysphagia - discussed with Dr. Wellington - will start pt on carafate and [...]
--- OUTSIDE RECORDS SUMMARY | 2019-02-13 10:05 | XMS REPORT | CCD ---
Author Author [facility] Organization [facility] Address [address] [place] [address] Phone Care Team Providers Care Echocardiographer Name Role Phone PP Unavailable CCM Unavailable Summary Purpose Interface Exchange Insurance Providers Payer name Policy type / Coverage type Covered libertarian ID Effective Begin Date Effective End Date WPS Medicare Part B Medicare Part B [id number] Unknown Unknown FOR LIFE WPS Medicare Part B [id number] Unknown Unknown Family history Father Diagnosis Age At Onset No Known Diseases N/A Mother Diagnosis Age At Onset No Known Diseases N/A Social History Social History Element Codes Description Effective Dates Marital status Unknown 04/26/2016 Number of children Unknown 3 04/26/2016 Employment Unknown Retired 04/26/[address]: 4924499 Former smoker Quit 1969 04/26/[address]: 216829 Currently drinks alcohol 04/26/2016 Has the patient ever used illegal drugs? Unknown Has never used illegal drugs 04/26/2016 Allergies, Adverse Reactions, Alerts Substance Reaction Codes Entered Date Inactivated Date Status ibuprofen rash RxNorm: 5640 04/26/2016 No Inactive Date Active Past Medical History Illness Codes Condition Status Onset Date Resolved Date Encounter for immunization ICD-9: V03.89 ICD-10: Z23 Active 12/12/2016 Unknown Vitamin B12 deficiency anemia due to [...] Problems Condition Codes Effective Dates Condition Status Encounter for immunization ICD-9: V03.89 ICD-10: Z23 12/12/2016 Active Vitamin B12 deficiency anemia due to [...] morphine ER 30 mg tablet,extended release RxNorm: 980714 1 Tablet(s) PO daily 07/02/2018 07/31/2018 Active morphine ER 30 mg tablet,extended release RxNorm: 957800 1 Tablet(s) PO daily 05/31/2018 06/29/2018 Inactive cyanocobalamin (vit B-12) 1,000 mcg/mL injection solution RxNorm: 954330 Milliliter(s) Inj 05/31/2018 05/31/2018 Inactive Protonix 40 mg tablet,delayed release RxNorm: 912969 1 Tablet(s) PO daily 05/23/2018 06/21/2018 Inactive Carafate 1 gram tablet RxNorm: 346464 1 Tablet(s) PO AC & HS as needed 05/23/2018 06/21/2018 Inactive cyanocobalamin (vit B-12) 1,000 mcg/mL injection solution RxNorm: 050733 1 Milliliter(s) Inj 05/03/2018 05/03/2018 Inactive morphine ER 30 mg tablet,extended release RxNorm: 759241 1 Tablet(s) PO daily 04/04/2018 05/03/2018 Inactive cyanocobalamin (vit B-12) 1,000 mcg/mL injection solution RxNorm: 079025 1 Milliliter(s) Inj 04/04/2018 04/04/2018 Inactive cyanocobalamin (vit B-12) 1,000 mcg/mL injection solution RxNorm: 743055 1 Milliliter(s) Inj 03/05/2018 03/05/2018 Inactive morphine ER 30 mg tablet,extended release RxNorm: 228675 1 Tablet(s) PO daily 03/05/2018 04/03/2018 Inactive cyanocobalamin (vit B-12) 1,000 mcg/mL injection solution RxNorm: 274147 1 Milliliter(s) Inj 01/30/2018 01/30/2018 Inactive cyanocobalamin (vit B-12) 1,000 mcg/mL injection solution RxNorm: 514856 1 Milliliter(s) Inj 01/01/2018 01/01/2018 Inactive morphine ER 30 mg tablet,extended release RxNorm: 618391 1 Tablet(s) PO daily 01/01/2018 01/30/2018 Inactive amlodipine 5 mg tablet RxNorm: 999170 1 Tablet(s) PO QPM 12/18/2017 06/15/2018 Inactive lisinopril 20 mg tablet RxNorm: 885156 1 Tablet(s) PO BID 12/18/2017 12/12/2018 Active cyanocobalamin (vit B-12) 1,000 mcg/mL injection solution RxNorm: 585669 1 Milliliter(s) Inj 11/28/2017 11/28/2017 Inactive morphine ER 30 mg tablet,extended release RxNorm: 520966 1 Tablet(s) PO daily 11/28/2017 12/27/2017 Inactive morphine ER 30 mg tablet,extended release RxNorm: 974017 1 Tablet(s) PO daily 11/09/2017 11/27/2017 Inactive cyanocobalamin (vit B-12) 1,000 mcg/mL injection solution RxNorm: 334640 1 Milliliter(s) Inj 10/24/2017 10/24/2017 Inactive morphine ER 30 mg tablet,extended release RxNorm: 939196 1 Tablet(s) PO daily 10/10/2017 11/08/2017 Inactive hydrochlorothiazide 25 mg tablet RxNorm: 816638 1 Tablet(s) PO daily 10/10/2017 11/08/2017 Inactive cyanocobalamin (vit B-12) 1,000 mcg/mL injection solution RxNorm: 841102 1 Milliliter(s) Inj 09/26/2017 09/26/2017 Inactive hydrochlorothiazide 12.5 mg tablet RxNorm: 178560 1 Tablet(s) PO daily 09/26/2017 10/25/2017 Inactive morphine ER 30 mg tablet,extended release RxNorm: 492419 1 Tablet(s) PO daily 09/12/2017 10/09/2017 Inactive cyanocobalamin (vit B-12) 1,000 mcg/mL injection solution RxNorm: 121925 1 Milliliter(s) Inj 08/10/2017 08/10/2017 Inactive morphine ER 30 mg tablet,extended release RxNorm: 324605 1 Tablet(s) PO daily 08/10/2017 09/08/2017 Inactive Vitamin B-12 1,000 mcg/mL injection solution RxNorm: 896303 1 Milliliter(s) Inj month 07/21/2017 No Stop Date Active B12 INJECTIONS MONTHLY cyanocobalamin (vit B-12) 1,000 mcg/mL injection solution RxNorm: 797426 1 Milliliter(s) Inj 07/18/2017 07/18/2017 Inactive morphine ER 30 mg tablet,extended release RxNorm: 182758 1 Tablet(s) PO daily 07/13/2017 08/09/2017 Inactive morphine ER 30 mg tablet,extended release RxNorm: 246696 1 Tablet(s) PO daily 06/15/2017 07/12/2017 Inactive cyanocobalamin (vit B-12) 1,000 mcg/mL injection solution RxNorm: 548727 1 Milliliter(s) Inj 05/16/2017 05/16/2017 Inactive morphine ER 30 mg tablet,extended release RxNorm: 833595 1 Tablet(s) PO daily 04/13/2017 05/12/2017 Inactive cyanocobalamin (vit B-12) 1,000 mcg/mL injection solution RxNorm: 913913 1 Milliliter(s) Inj 03/14/2017 03/14/2017 Inactive morphine ER 30 mg tablet,extended release RxNorm: 363515 1 Tablet(s) PO daily 03/14/2017 04/12/2017 Inactive morphine ER 30 mg tablet,extended release RxNorm: 903725 1 Tablet(s) PO daily 02/13/2017 03/13/2017 Inactive Kenalog 40 mg/mL suspension for injection RxNorm: 7833533 1 Milliliter(s) Inj 01/12/2017 01/12/2017 Inactive cyanocobalamin (vit B-12) 1,000 mcg/mL injection solution RxNorm: 599976 1 Milliliter(s) Inj 01/12/2017 01/12/2017 Inactive Zithromax Z-[place] 250 mg tablet RxNorm: 485482 1 Tablet(s) PO UD 01/12/2017 01/16/2017 Inactive ceftriaxone 500 mg solution for injection RxNorm: 8464437 1 Milliliter(s) Inj 01/12/2017 01/12/2017 Inactive Vitamin B-12 1,000 mcg/mL injection solution RxNorm: 374030 1 Milliliter(s) Inj EVERY OTHER MONTH 01/04/2017 07/20/2017 Inactive lisinopril 20 mg tablet RxNorm: 751660 1 Tablet(s) PO BID 01/02/2017 12/17/2017 Inactive lisinopril 20 mg tablet RxNorm: 965455 1 Tablet(s) PO BID 12/12/2016 01/01/2017 Inactive morphine ER 30 mg tablet,extended release RxNorm: 947116 1 Tablet(s) PO daily 12/08/2016 01/06/2017 Inactive lisinopril 20 mg tablet RxNorm: 863679 1 Tablet(s) PO BID 11/03/2016 12/11/2016 Inactive morphine ER 30 mg tablet,extended release RxNorm: 348848 1 Tablet(s) PO daily 11/03/2016 12/02/2016 Inactive cyanocobalamin (vit B-12) 1,000 mcg/mL injection solution RxNorm: 766683 1 Milliliter(s) Inj 10/27/2016 10/27/2016 Inactive lisinopril 10 mg tablet RxNorm: 604585 1 Tablet(s) PO BID 10/06/2016 11/02/2016 Inactive lisinopril 10 mg tablet RxNorm: 274284 1 Tablet(s) PO daily 09/06/2016 10/05/2016 Inactive morphine ER 30 mg tablet,extended release RxNorm: 074368 1 Tablet(s) PO daily 08/18/2016 09/16/2016 Inactive cyanocobalamin (vit B-12) 1,000 mcg/mL injection solution RxNorm: 085975 Milliliter(s) Inj 07/27/2016 07/27/2016 Inactive morphine ER 30 mg tablet,extended release RxNorm: 002531 1 Tablet(s) PO daily 07/21/2016 08/17/2016 Inactive morphine ER 30 mg tablet,extended release RxNorm: 098812 1 Tablet(s) PO daily 06/20/2016 07/19/2016 Inactive morphine ER 30 mg tablet,extended release RxNorm: 331656 1 Tablet(s) PO daily 05/20/2016 06/19/2016 Inactive cyanocobalamin (vit B-12) 1,000 mcg/mL injection solution RxNorm: 663214 1 Milliliter(s) Inj 04/26/2016 04/26/2016 Inactive gentamicin 0.3 % eye drops RxNorm: 066877 2 Drop(s) OPH Q4H 04/26/2016 05/02/2016 Inactive Venofer intravenous RxNorm: 38789 intravenous No Start Date Active Vitamin B-12 1,000 mcg/mL injection solution RxNorm: 049996 1 Milliliter(s) Inj EVERY 3 MONTHS No Start Date 01/03/2017 Inactive Claritin 10 mg tablet RxNorm: 611591 1 Tablet(s) PO daily No Start Date 07/17/2017 Inactive morphine ER 30 mg tablet,extended release RxNorm: 653310 1 Tablet(s) PO daily No Start Date 04/25/2016 Inactive Medication Administered Medication Codes Instructions Start Date Status cyanocobalamin (vit B-12) 1,000 mcg/mL injection solution RxNorm: 588975 Milliliter 05/31/2018 No longer Active cyanocobalamin (vit B-12) 1,000 mcg/mL injection solution RxNorm: 045080 1Milliliter 05/03/2018 No longer Active cyanocobalamin (vit B-12) 1,000 mcg/mL injection solution RxNorm: 519695 1Milliliter 04/04/2018 No longer Active cyanocobalamin (vit B-12) 1,000 mcg/mL injection solution RxNorm: 127602 1Milliliter 03/05/2018 No longer Active cyanocobalamin (vit B-12) 1,000 mcg/mL injection solution RxNorm: 459580 1Milliliter 01/30/2018 No longer Active cyanocobalamin (vit B-12) 1,000 mcg/mL injection solution RxNorm: 542589 1Milliliter 01/01/2018 No longer Active cyanocobalamin (vit B-12) 1,000 mcg/mL injection solution RxNorm: 208774 1Milliliter 11/28/2017 No longer Active cyanocobalamin (vit B-12) 1,000 mcg/mL injection solution RxNorm: 497180 1Milliliter 10/24/2017 No longer Active cyanocobalamin (vit B-12) 1,000 mcg/mL injection solution RxNorm: 491763 1Milliliter 09/26/2017 No longer Active cyanocobalamin (vit B-12) 1,000 mcg/mL injection solution RxNorm: 046470 1Milliliter 08/10/2017 No longer Active cyanocobalamin (vit B-12) 1,000 mcg/mL injection solution RxNorm: 344916 1Milliliter 07/18/2017 No longer Active cyanocobalamin (vit B-12) 1,000 mcg/mL injection solution RxNorm: 768873 1Milliliter 05/16/2017 No longer Active cyanocobalamin (vit B-12) 1,000 mcg/mL injection solution RxNorm: 825606 1Milliliter 03/14/2017 No longer Active Kenalog 40 mg/mL suspension for injection RxNorm: 6852317 illiliter 01/12/2017 No longer Active cyanocobalamin (vit B-12) 1,000 mcg/mL injection solution RxNorm: 050078 illiliter 01/12/2017 No longer Active ceftriaxone 500 mg solution for injection RxNorm: 1969201 illiliter 01/12/2017 No longer Active cyanocobalamin (vit B-12) 1,000 mcg/mL injection solution RxNorm: 937906 1Milliliter 10/27/2016 No longer Active cyanocobalamin (vit B-12) 1,000 mcg/mL injection solution RxNorm: 169823 Milliliter 07/27/2016 No longer Active cyanocobalamin (vit B-12) 1,000 mcg/mL injection solution RxNorm: 543721 1Milliliter 04/26/2016 No longer Active Immunizations Vaccine Codes Date Status Influenza CVX: 141 05/31/2018 completed Pneumococcal (Adult) CVX: 133 12/12/2016 completed Assessments Condition Codes Effective Dates 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-10: D51.0 ICD-9: 281.0 05/31/2018 Encounter for immunization ICD-10: Z23 ICD-9: V03.89 [...] 32.9 pg 11/28/2017 Cbc With Differential Ord2 [place]% 12.6 % 11/28/2017 Cbc With Differential Ord2 [...] 2.87 K/ul 11/28/2017 Cbc With Differential Ord2 [place] ABS# 1.1 K/ul 11/28/2017 Cbc With Differential Ord2 Eos ABS# 0.3 K/ul 11/28/2017 Cbc With Differential Ord2 Baso ABS# 0.0 K/ul 11/28/2017 B12 Yzo077 B12 >1500.00 pg/ml 11/28/2017 Comp Metabolic Vjh573 NA 139 mEq/L 11/28/2017 Comp Metabolic Aja382 K 5.2 mEq/L 11/28/2017 Comp Metabolic Tgm288 CL 106 mEq/L 11/28/2017 Comp Metabolic Mhs317 CO2 28.0 mEq/L 11/28/2017 Comp Metabolic Unf469 ANION GAP 10 11/28/2017 Comp Metabolic Eld308 GLUCOSE 89 mg/dL 11/28/2017 Comp Metabolic Tqi540 Creat 1.1 mg/dL 11/28/2017 Comp Metabolic Lcm115 eGFR 66 ml/min/1.73m2 11/28/2017 Comp Metabolic Nwf651 BUN 18 mg/dL 11/28/2017 Comp Metabolic Gxz739 B/C Ratio 16.1 Ratio 11/28/2017 Comp Metabolic Hni227 CALCIUM 9.2 mg/dL 11/28/2017 Comp Metabolic Cxf459 ALK PHOS 89 U/L 11/28/2017 Comp Metabolic Lux338 AST(SGOT) 22 U/L 11/28/2017 Comp Metabolic Ghf893 ALT(SGPT) 15 U/L 11/28/2017 Comp Metabolic Olv394 BILI T 0.6 mg/dL 11/28/2017 Comp Metabolic Opk142 ALBUMIN 3.9 g/dL 11/28/2017 Comp Metabolic Egq022 TPRO 6.5 g/dL 11/28/2017 Comp Metabolic Bai614 GLOB 2.6 g/dL 11/28/2017 Comp Metabolic Auk065 A/G Ratio 1.5 Ratio 11/28/2017 Comp Metabolic Vax693 Osmo 279 mOsmo 11/28/2017 Ferritin Ord22 FERRITIN [...] 100.7 fl 07/18/2017 Cbc With Differential Ord2 [place]% 12.3 % 07/18/2017 Cbc With Differential Ord2 [...] 2.90 K/ul 07/18/2017 Cbc With Differential Ord2 [place] ABS# 1.1 K/ul 07/18/2017 Cbc With Differential Ord2 Eos ABS# 0.2 K/ul 07/18/2017 Cbc With Differential Ord2 Baso ABS# 0.0 K/ul 07/18/2017 Comp Metabolic Ups388 NA 140 mEq/L 07/18/2017 Comp Metabolic Hck735 K 4.6 mEq/L 07/18/2017 Comp Metabolic Qrf261 CL 105 mEq/L 07/18/2017 Comp Metabolic Lws126 CO2 29.0 mEq/L 07/18/2017 Comp Metabolic Wjc386 ANION GAP 11 07/18/2017 Comp Metabolic Vyt226 GLUCOSE 96 mg/dL 07/18/2017 Comp Metabolic Caq723 Creat 1.0 mg/dL 07/18/2017 Comp Metabolic Vfg718 eGFR 73 ml/min/1.73m2 07/18/2017 Comp Metabolic Wqt994 BUN 12 mg/dL 07/18/2017 Comp Metabolic Ula552 B/C Ratio 11.7 Ratio 07/18/2017 Comp Metabolic Fww575 CALCIUM 9.2 mg/dL 07/18/2017 Comp Metabolic Hji787 ALK PHOS 74 U/L 07/18/2017 Comp Metabolic Xlo169 AST(SGOT) 29 U/L 07/18/2017 Comp Metabolic Sru385 ALT(SGPT) 16 U/L 07/18/2017 Comp Metabolic Hjn582 BILI T 0.7 mg/dL 07/18/2017 Comp Metabolic Ntl384 ALBUMIN 3.7 g/dL 07/18/2017 Comp Metabolic Kja594 TPRO 6.5 g/dL 07/18/2017 Comp Metabolic Gln323 GLOB 2.8 g/dL 07/18/2017 Comp Metabolic Jve147 A/G Ratio 1.3 Ratio 07/18/2017 Comp Metabolic Syy756 Osmo 279 mOsmo 07/18/2017 Iron Ord72 Iron 114 ug/dl 07/18/2017 B12 Sxo968 B12 233.00 pg/ml 07/18/2017 Tsh Ord6 hTSH [...] 33.3 pg 12/13/2016 Cbc With Differential Ord2 [place]% 17.9 % 12/13/2016 Cbc With Differential Ord2 [...] 2.71 K/ul 12/13/2016 Cbc With Differential Ord2 [place] ABS# 1.7 K/ul 12/13/2016 Cbc With Differential Ord2 Eos ABS# 0.3 K/ul 12/13/2016 Cbc With Differential Ord2 Baso ABS# 0.0 K/ul 12/13/2016 Comp Metabolic Gao930 NA 136 mEq/L 12/13/2016 Comp Metabolic Xbi983 K 4.7 mEq/L 12/13/2016 Comp Metabolic Lol155 CL 102 mEq/L 12/13/2016 Comp Metabolic Ikm020 CO2 26.0 mEq/L 12/13/2016 Comp Metabolic Mvc590 ANION GAP 13 12/13/2016 Comp Metabolic Fpl645 GLUCOSE 87 mg/dL 12/13/2016 Comp Metabolic Wff544 Creat 0.9 mg/dL 12/13/2016 Comp Metabolic Kxf002 eGFR 83 ml/min/1.73m2 12/13/2016 Comp Metabolic Evd448 BUN 17 mg/dL 12/13/2016 Comp Metabolic Lpa260 B/C Ratio 18.3 Ratio 12/13/2016 Comp Metabolic Aex268 CALCIUM 9.1 mg/dL 12/13/2016 Comp Metabolic Lgo725 ALK PHOS 90 U/L 12/13/2016 Comp Metabolic Xsx628 AST(SGOT) 22 U/L 12/13/2016 Comp Metabolic Vyh846 ALT(SGPT) 15 U/L 12/13/2016 Comp Metabolic Sfz251 BILI T 0.8 mg/dL 12/13/2016 Comp Metabolic Lvj377 ALBUMIN 3.6 g/dL 12/13/2016 Comp Metabolic Aix441 TPRO 6.4 g/dL 12/13/2016 Comp Metabolic Lvs600 GLOB 2.9 g/dL 12/13/2016 Comp Metabolic Nwd702 A/G Ratio 1.2 Ratio 12/13/2016 Comp Metabolic Oml768 Osmo 273 mOsmo 12/13/2016 Lipid Ord30 CHOL 182 mg/dL 12/13/2016 Lipid Ord30 HDL 64.0 mg/dl 12/13/2016 Lipid Ord30 TRIG 62 mg/dL 12/13/2016 Lipid Ord30 LDL 106 mg/dL 12/13/2016 Lipid Ord30 C/HDL 2.8 Ratio 12/13/2016 Ferritin Ord22 FERRITIN 434.7 ng/mL 12/13/2016 B12 Kss352 B12 247.00 pg/ml 12/13/2016 Tibc Ord40 Iron [...] 33.7 pg 04/27/2016 Cbc With Differential Ord2 [place]% 13.7 % 04/27/2016 Cbc With Differential Ord2 [...] 3.22 K/ul 04/27/2016 Cbc With Differential Ord2 [place] ABS# 1.2 K/ul 04/27/2016 Cbc With Differential Ord2 Eos ABS# 0.3 K/ul 04/27/2016 Cbc With Differential Ord2 Baso ABS# 0.0 K/ul 04/27/2016 Comp Metabolic Mbp848 NA 138 mEq/L 04/27/2016 Comp Metabolic Xdv002 K 4.3 mEq/L 04/27/2016 Comp Metabolic Ucr204 CL 104 mEq/L 04/27/2016 Comp Metabolic Yoa348 CO2 30.0 mEq/L 04/27/2016 Comp Metabolic Nna776 ANION GAP 8 04/27/2016 Comp Metabolic Wkw017 GLUCOSE 87 mg/dL 04/27/2016 Comp Metabolic Gln710 Creat 0.9 mg/dL 04/27/2016 Comp Metabolic Pbc875 eGFR 82 ml/min/1.73m2 04/27/2016 Comp Metabolic Gon700 BUN 13 mg/dL 04/27/2016 Comp Metabolic Zst931 B/C Ratio 13.8 Ratio 04/27/2016 Comp Metabolic Rlq437 CALCIUM 9.0 mg/dL 04/27/2016 Comp Metabolic Ixo527 ALK PHOS 62 U/L 04/27/2016 Comp Metabolic Vjx349 AST(SGOT) 24 U/L 04/27/2016 Comp Metabolic Qta463 ALT(SGPT) 15 U/L 04/27/2016 Comp Metabolic Cpb181 BILI T 0.7 mg/dL 04/27/2016 Comp Metabolic Hdi658 ALBUMIN 3.6 g/dL 04/27/2016 Comp Metabolic Taj592 TPRO 6.1 g/dL 04/27/2016 Comp Metabolic Yhf076 GLOB 2.5 g/dL 04/27/2016 Comp Metabolic Gpz863 A/G Ratio 1.4 Ratio 04/27/2016 Comp Metabolic Esb579 Osmo 275 mOsmo 04/27/2016 B12 Fbm938 B12 >1500.00 pg/ml 04/27/2016 Iron Ord72 Iron [...] accomodation 09/26/2017 None Full Exam - General 1995 Ears/Nose/Throat otoscopic exam Overall: external auditory canals [...] Procedure Codes Date THER/PROPH/DIAG INJ SC/IM CPT-4: 00906 05/31/2018 ADMIN INFLUENZA VIRUS VAC CPT-4: G0008 05/31/2018 VITAMIN B12 INJECTION CPT- 4: J3420 05/31/2018 FLU VACC PRSV FREE INC ANTIG Formatting Model/CDA Sections, Assigned to/Mary Grace Rosado CPT-4: [id number] 05/31/2018 VITAMIN B12 INJECTION CPT- 4: J3420 05/03/2018 THER/PROPH/DIAG INJ SC/IM CPT-4: 73268 05/03/2018 THER/PROPH/DIAG INJ SC/IM CPT-4: 07641 04/04/2018 VITAMIN B12 INJECTION CPT- 4: J3420 04/04/2018 THER/PROPH/DIAG INJ SC/IM CPT-4: 28197 03/05/2018 VITAMIN B12 INJECTION CPT- 4: J3420 03/05/2018 VITAMIN B12 INJECTION CPT- 4: J3420 01/30/2018 THER/PROPH/DIAG INJ SC/IM CPT-4: 65753 01/30/2018 THER/PROPH/DIAG INJ SC/IM CPT-4: 46831 01/01/2018 VITAMIN B12 INJECTION CPT- 4: J3420 01/01/2018 PPPS, SUBSEQ VISIT CPT- 4: G0439 12/18/2017 THER/PROPH/DIAG INJ SC/IM CPT-4: 40176 11/28/2017 VITAMIN B12 INJECTION CPT- 4: J3420 11/28/2017 THER/PROPH/DIAG INJ SC/IM CPT-4: 41288 10/24/2017 VITAMIN B12 INJECTION CPT- 4: J3420 10/24/2017 THER/PROPH/DIAG INJ SC/IM CPT-4: 57060 09/26/2017 VITAMIN B12 INJECTION CPT- 4: J3420 09/26/2017 THER/PROPH/DIAG INJ SC/IM CPT-4: 11666 08/10/2017 VITAMIN B12 INJECTION CPT- 4: J3420 08/10/2017 THER/PROPH/DIAG INJ SC/IM CPT-4: 25161 07/18/2017 VITAMIN B12 INJECTION CPT- 4: J3420 07/18/2017 THER/PROPH/DIAG INJ SC/IM CPT-4: 50701 05/16/2017 VITAMIN B12 INJECTION CPT- 4: J3420 05/16/2017 THER/PROPH/DIAG INJ SC/IM CPT-4: 23323 03/14/2017 VITAMIN B12 INJECTION CPT- 4: J3420 03/14/2017 TRIAMCINOLONE ACET INJ NOS CPT-4: J3301 01/12/2017 ROCEPHIN, PER 250 MG CPT- 4: J0696 01/12/2017 VITAMIN B12 INJECTION CPT- 4: J3420 01/12/2017 THER/PROPH/DIAG INJ SC/IM CPT-4: 99434 01/12/2017 PPPS, SUBSEQ VISIT CPT- 4: G0439 12/12/2016 PNEUMOCOCCAL VACC [address]: 29646768 CPT-4: 57747 12/12/2016 ADMIN PNEUMOCOCCAL VACCINE SNOMED CT: 62487087 CPT-4: G0009 12/12/2016 THER/PROPH/DIAG INJ SC/IM CPT-4: 28527 10/27/2016 VITAMIN B12 INJECTION CPT- 4: J3420 10/27/2016 THER/PROPH/DIAG INJ SC/IM CPT-4: 91747 07/27/2016 VITAMIN B12 INJECTION CPT- 4: J3420 07/27/2016 THER/PROPH/DIAG INJ SC/IM CPT-4: 12779 04/26/2016 VITAMIN B12 INJECTION CPT- 4: J3420 04/26/2016 Vital Signs Date Vital 05/23/2018 Blood Pressure 1: 158/64 Code: 8480-6 BMI: 24.7 Code: 69868-1 Heart Rate 1: 76 bpm Height: 5'7" SpO2: 96% Temperature: 36.7 (C) / 98.1 (F) Weight: 158 lbs 05/03/2018 Blood Pressure 1: 122/72 Code: 8480-6 BMI: 25.1 Code: 16833-6 Heart Rate 1: 74 bpm Height: 5'7" SpO2: 97% Weight: 160 lbs 01/31/2018 Blood Pressure 1: 137/77 Code: 8480-6 Blood Pressure 2: 138/68 Code: 8480-6 Heart Rate 1: 67 bpm SpO2: 98% 01/30/2018 Blood Pressure 1: 138/66 Code: 8480-6 BMI: 25.1 Code: 78350-5 Heart Rate 1: 76 bpm Height: 5'7" SpO2: 94% Weight: 160 lbs 12/18/2017 Blood Pressure 1: 152/88 Code: 8480-6 BMI: 25.8 Code: 54667-3 Heart Rate 1: 68 bpm Height: 5'7" SpO2: 96% Weight: 165 lbs 11/28/2017 Blood Pressure 1: 150/76 Code: 8480-6 BMI: 25.2 Code: 36780-5 Heart Rate 1: 78 bpm Height: 5'7" SpO2: 98% Weight: 161 lbs 10/10/2017 Blood Pressure 1: 156/76 Code: 8480-6 BMI: 24.7 Code: 11885-7 Heart Rate 1: 71 bpm Height: 5'7" SpO2: 98% Weight: 158 lbs 09/26/2017 Blood Pressure 1: 162/82 Code: 8480-6 BMI: 24.7 Code: 06090-0 Heart Rate 1: 69 bpm Height: 5'7" SpO2: 99% Weight: 158 lbs 08/16/2017 Blood Pressure 1: 154/82 Code: 8480-6 BMI: 24.1 Code: 76455-7 Heart Rate 1: 58 bpm Height: 5'7" SpO2: 96% Weight: 154 lbs 07/18/2017 Blood Pressure 1: 152/88 Code: 8480-6 BMI: 25.2 Code: 22333-3 Heart Rate 1: 72 bpm Height: 5'7" SpO2: 98% Weight: 161 lbs 05/16/2017 Blood Pressure 1: 136/78 Code: 8480-6 BMI: 24.8 Code: 50268-4 Heart Rate 1: 71 bpm Height: 5'7" SpO2: 96% Weight: 158 lbs 8 oz 03/14/2017 Blood Pressure 1: 142/74 Code: 8480-6 BMI: 23.8 Code: 40430-7 Heart Rate 1: 69 bpm Height: 5'7" SpO2: 94% Weight: 152 lbs 01/12/2017 Blood Pressure 1: 156/90 Code: 8480-6 BMI: 23.4 Code: 75329-4 Heart Rate 1: 90 bpm Height: 5'7" SpO2: 97% Temperature: 37.4 (C) / 99.3 (F) Weight: 149 lbs 8 oz 12/12/2016 Blood Pressure 1: 140/78 Code: 8480-6 BMI: 24.3 Code: 10172-5 Heart Rate 1: 73 bpm Height: 5'7" SpO2: 96% Waist Measure (cm): 90 cm Weight: 155 lbs 12/08/2016 Blood Pressure 1: 148/84 Code: 8480-6 BMI: 24.3 Code: 54315-5 Heart Rate 1: 80 bpm Height: 5'7" SpO2: 96% Weight: 155 lbs 11/03/2016 Blood Pressure 1: 156/84 Code: 8480-6 Blood Pressure 2: 155/94 Code: 8480-6 BMI: 24.3 Code: 65329-3 Heart Rate 1: 81 bpm Height: 5'7" SpO2: 98% Weight: 155 lbs 10/06/2016 Blood Pressure 1: 175/95 Code: 8480-6 Heart Rate 1: 77 bpm Respiratory Rate: 16 bpm SpO2: 98% Temperature: 36.4 (C) / 97.5 (F) Weight: 157 lbs 09/06/2016 Blood Pressure 1: 136/80 Code: 8480-6 BMI: 24.1 Code: 67187-4 Heart Rate 1: 82 bpm Height: 5'8" SpO2: 97% Weight: 156 lbs 08/23/2016 Blood Pressure 1: 160/80 Code: 8480-6 BMI: 24.4 Code: 94806-3 Heart Rate 1: 88 bpm Height: 5'8" SpO2: 95% Weight: 158 lbs 04/26/2016 Blood Pressure 1: 156/74 Code: 8480-6 BMI: 24.5 Code: 09911-5 Heart Rate 1: 70 bpm Height: 5'8" [...] Performer Location Codes Date EST. PATIENT, LEVEL III Diagnosis: Dysphagia, pharyngoesophageal phase[ICD10: R13.14] Teresa Paris MD, [facility] CPT-4: 48788 05/23/2018 [id number]) [id number] EST. PATIENT, LEVEL IV Diagnosis: Essential (primary) hypertension[ICD10: I10] Diagnosis: Chronic pain syndrome[ICD10: G89.4] Diagnosis: Vitamin B12 deficiency anemia due to intrinsic factor deficiency[ICD10: D51.0] Diagnosis: Other iron deficiency anemias[ICD10: D50.8] Diagnosis: Slow transit constipation[ICD10: K59.01] Andree Paris MD, [facility] CPT-4: 11993 05/03/2018 ([id number]) Miscellaneous no charge Diagnosis: Essential (primary) hypertension[ICD10: I10] [facility] CPT-4: 07685 01/31/2018 [id number]) [id number] EST. PATIENT, LEVEL IV Diagnosis: Essential (primary) hypertension[ICD10: I10] Diagnosis: Chronic pain syndrome[ICD10: G89.4] Andree Paris MD, [facility] CPT- 4: 02824 01/30/2018 [id number]) [id number] EST. PATIENT, LEVEL IV Diagnosis: Essential (primary) hypertension[ICD10: I10] Diagnosis: Chronic pain syndrome[ICD10: G89.4] Diagnosis: Vitamin B12 deficiency anemia due to intrinsic factor deficiency[ICD10: D51.0] Diagnosis: Iron deficiency anemia, unspecified[ICD10: D50.9] Ana Paris MD, [facility] CPT-4: 81256 11/28/2017 60037 EST. PATIENT, LEVEL IV Diagnosis: Essential (primary) hypertension[ICD10: I10] Diagnosis: Slow transit constipation[ICD10: K59.01] Diagnosis: Chronic pain syndrome[ICD10: G89.4] Teresa Paris MD, [facility] CPT- 4: 33146 10/10/2017 53569 EST. PATIENT, LEVEL IV Diagnosis: Vitamin B12 deficiency anemia due to intrinsic factor deficiency[ICD10: D51.0] Diagnosis: Essential (primary) hypertension[ICD10: I10] Diagnosis: Chronic pain syndrome[ICD10: G89.4] Teresa Paris MD, [facility] CPT- 4: 40169 09/26/2017 [id number] EST. PATIENT, LEVEL III Diagnosis: Dysphagia, pharyngoesophageal phase[ICD10: R13.14] Teresa Paris MD, [facility] CPT-4: 81798 08/16/2017 ([id number]) 83047 EST. PATIENT, LEVEL IV Diagnosis: Essential (primary) hypertension[ICD10: I10] Diagnosis: Chronic pain syndrome[ICD10: G89.4] Diagnosis: Vitamin B12 deficiency anemia due to intrinsic factor deficiency[ICD10: D51.0] Diagnosis: Iron deficiency anemia, unspecified[ICD10: D50.9] Diagnosis: Dysphagia, pharyngoesophageal phase[ICD10: R13.14] Ana Paris MD, [facility] CPT-4: 39209 07/18/2017 ([id number]) 15657 EST. PATIENT, LEVEL III Diagnosis: Essential (primary) hypertension[ICD10: I10] Diagnosis: Chronic pain syndrome[ICD10: G89.4] Diagnosis: Vitamin B12 deficiency anemia due to intrinsic factor deficiency[ICD10: D51.0] Ana Paris MD, [facility] CPT-4: 38640 05/16/2017 ([id number]) 52961 EST. PATIENT, LEVEL III Diagnosis: Essential (primary) hypertension[ICD10: I10] Diagnosis: Chronic pain syndrome[ICD10: G89.4] Diagnosis: Vitamin B12 deficiency anemia due to intrinsic factor deficiency[ICD10: D51.0] Ana Paris MD, [facility] CPT-4: 83337 03/14/2017 ([id number]) 53736 EST. PATIENT, LEVEL III Diagnosis: Cough[ICD10: R05] Diagnosis: Acute bronchitis, unspecified[ICD10: J20.9] Diagnosis: Chronic pain syndrome[ICD10: G89.4] Diagnosis: Vitamin B12 deficiency anemia due to intrinsic factor deficiency[ICD10: D51.0] Ana Paris MD, [facility] CPT-4: 94046 01/12/2017 ([id number]) 26470 EST. PATIENT, LEVEL III Diagnosis: Essential (primary) hypertension[ICD10: I10] Diagnosis: Chronic pain syndrome[ICD10: G89.4] Ana Paris MD, [facility] CPT-4: 52642 12/08/2016 ([id number]) 17827 EST. PATIENT, LEVEL III Diagnosis: Essential (primary) hypertension[ICD10: I10] Ana Paris MD, [facility] CPT-4: 61964 11/03/2016 ([id number]) 12779 EST. PATIENT, LEVEL III Diagnosis: Essential (primary) hypertension[ICD10: I10] Ana Paris MD, [facility] CPT-4: 12713 10/06/2016 ([id number]) 93231 EST. PATIENT, LEVEL III Diagnosis: Essential (primary) hypertension[ICD10: I10] Aan Paris MD, [facility] CPT-4: 41617 09/06/2016 ([id number]) 10455 EST. PATIENT, LEVEL III Diagnosis: Essential (primary) hypertension[ICD10: I10] Ana Paris MD, [facility] CPT-4: 65635 08/23/2016 ([id number]) OFFICE VISIT, NEW - LEVEL 4 Diagnosis: Noninfective gastroenteritis and colitis, unspecified[ICD10: K52.9] Diagnosis: Vitamin B12 deficiency anemia due to intrinsic factor deficiency[ICD10: D51.0] Diagnosis: Iron deficiency anemia, unspecified[ICD10: D50.9] Diagnosis: Chalazion left upper eyelid[ICD10: H00.14] Diagnosis: Elevated blood-pressure reading, without diagnosis of hypertension[ICD10: R03.0] Andree Paris MD, [facility] CPT-4: 94546 04/26/2016 Plan of Care Planned Activity Notes Codes Status Date Appointment: Injection 05/31/2018 Patient Education: Patient Medication Summary Completed 05/31/2018 Visit Plan: Dysphagia - discussed with Dr. Paris - will start pt on carafate and PPI - pt is to follow up with Dr. Parish on 05/23/18 at 1:30PM - pt is to update clinic with any changes in the current treatment plan. 05/23/2018 [phone] ([facility] min) Moderate 05/23/2018 Patient Education: [...] [phone] (15 min) Moderate 05/03/2018 Patient Education: Patient [...] over-medication. 01/30/2018 Appointment: Andree Paris [facility]el[phone] (15 min) Moderate 01/30/2018 Patient Education: Patient [...] [phone] [phone] [facility] - Annual Wellness Visit 12/18/2017 Patient [...] labs 11/28/2017 Appointment: [phone] [phone] (30 min) [facility] 11/28/2017 Patient Education: Patient Medication Summary Completed [...] regimen. 10/10/2017 Appointment: Teresa Bardales WPtel: [facility]5 [facility] (30 min) Complex 10/10/2017 Patient Education: [...] over-medication. 09/26/2017 Appointment: Teresa Bardales WPtel: [facility] (30 min) Complex 09/26/2017 Patient Education: Patient Medication Summary Completed 09/26/2017 Appointment: Teresa Bardales WPtel: [address] [place], [place] [phone] (30 min) Complex 09/19/2017 Referral: External, Ordering Provider Referral Appointment Confirmed 08/17/2017 Visit Plan: Dysphagia - worsening since yesterday - will refer to Dr. Harper for possible EGD - pt is to notify clinic if symptoms do not improve, if they worsen, or with any acute changes, questions, or concerns. 08/16/2017 Appointment: Teresa Bardales WPtel: [address] [place], [place] [phone] (30 min) Complex 08/16/2017 Patient Education: Patient Medication Summary Completed 08/16/2017 Care Plan: Referral Order SNOMED-CT : [id number] Pending 08/16/2017 Appointment: Injection 08/10/2017 Patient Education: [...] it-check labs today first 07/18/2017 Appointment: Ana Pedrazatel: [phone] (30 min) Complex 07/18/2017 Patient Education: Patient [...] over-medication. 05/16/2017 Appointment: Ana Pedraza WPtel: [phone] (30 min) Complex 05/16/2017 Patient Education: [...] the consequences of over-medication. 03/14/2017 Appointment: Ana Pedrazal: [phone] [phone] (30 min) Complex 03/14/2017 Patient Education: Patient [...] over-medication. 01/12/2017 Appointment: Ana Pedraza WPtel: [phone] [phone] (30 min) Complex 01/12/2017 Patient Education: Patient [...] Ana Pedraza WPtel: [phone] [facility] - Annual Wellness Visit 12/12/2016 Patient [...] Ana Pedraza WPtel: [phone] (30 min) Complex 12/08/2016 Patient Education: Patient [...] concerns. 11/03/2016 Appointment: Ana Pedraza WPtel: [facility]9 [phone] (30 min) Complex 11/03/2016 Patient Education: Patient [...] acute concerns. 10/06/2016 Appointment: Ana Pedraza WPtel: [facility]5 [phone] (30 min) Complex 10/06/2016 Patient Education: Patient [...] acute concerns. 09/06/2016 Appointment: Ana Pedraza WPtel: [phone] [phone] (30 min) Complex 09/06/2016 Patient Education: Patient [...] concerns. 08/23/2016 Appointment: Ana Pedraza WPtel: [phone] (15 min) Moderate 08/23/2016 [...] for gentamycin. 04/26/2016 Appointment: Andree Paris WPtel: [address] [place], [place] [address] New Patient 04/26/2016 Patient Education: Patient Medication [...] directed, and understands the consequences of over-medication. PREVNAR 13 RECOMMEND SHINGLES VACCINE FASTING LABS [...] if symptoms not improved on this regimen. if your blood pressure is at or [...] for health care surrogate. . Hypertension - uncontrolled - the patient's [...]
--- OUTSIDE RECORDS SUMMARY | 2019-02-13 10:10 | XMS REPORT | Continuity of Care Document ---
Author Organization Unknown Address Unknown Allergies Active Description Code Type Severity Reaction Onset Reported/Identified Relationship to Patient Clinical Status Yes ibuprofen [id number] Drug Allergy Unknown RASH 05/07/2009 Medications There [...] D50.9 IRON DEFICIENCY ANEMIA, UNSPECIFIED 11/18/2016 ISAIAS HUNT BIBLICAL LANGUAGES PROFESSOR Ot D50.9 IRON DEFICIENCY ANEMIA, UNSPECIFIED 12/15/2016 ISAIAS HUNT BIBLICAL LANGUAGES PROFESSOR Ot D50.9 IRON DEFICIENCY ANEMIA, UNSPECIFIED 07/25/2017 ISAIAS HUNT BIBLICAL LANGUAGES PROFESSOR Ot K22.4 DYSKINESIA OF ESOPHAGUS 07/25/2017 ISAIAS HUNT BIBLICAL LANGUAGES PROFESSOR Ot 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 08/15/2017 ISAIAS HUNTP Ot K22.4 DYSKINESIA OF ESOPHAGUS 08/15/2017 ISAIAS HUNTP Ot 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 08/18/2017 BETTYE ROJAS DO Ot K21.9 GASTRO-ESOPHAGEAL REFLUX DISEASE WITHOUT 08/18/2017 DELMAN DO, BETTYE B Ot Z01.818 ENCOUNTER FOR OTHER PREPROCEDURAL EXAMIN 08/21/2017 DELAPRYL DO, BETTYE B Ot K21.9 GASTRO-ESOPHAGEAL REFLUX DISEASE WITHOUT 08/21/2017 DELMAN DO, BETTYE B Ot Z01.818 ENCOUNTER FOR OTHER PREPROCEDURAL EXAMIN 08/24/2017 DELMAN DO, BETTYE B Ot I10 ESSENTIAL (PRIMARY) HYPERTENSION 08/24/2017 DELMAN DO, BETTYE B Ot K29.70 GASTRITIS, UNSPECIFIED, WITHOUT BLEEDING 08/24/2017 DELMAN DO, BETTYE B Ot R13.10 DYSPHAGIA, UNSPECIFIED 08/24/2017 DELMAN DO, BETTYE B Ot Z79.899 OTHER ASSISTED (CURRENT) DRUG THERAPY 09/06/2017 ISAIAS HUNT Ot K22.4 DYSKINESIA OF ESOPHAGUS 09/06/2017 ISAIAS HUNT Ot 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 05/23/2018 LIZETTE MANCILLA MD Ot 280.9 IRON DEFIC ANEMIA NOS 05/23/2018 LIZETTE MANCILLA MD Ot 280.9 IRON DEFIC ANEMIA NOS 05/23/2018 LIZETTE MANCILLA MD Ot 280.9 IRON DEFIC ANEMIA NOS 05/23/2018 LIZETTE MANCILLA MD Ot 280.9 IRON DEFIC ANEMIA NOS 05/23/2018 LIZETTE MANCILLA MD Ot E61.1 IRON DEFICIENCY 05/23/2018 ISAIAS HUNT Ot D50.9 IRON DEFICIENCY ANEMIA, UNSPECIFIED 05/23/2018 ISAIAS HUNT Ot K22.4 DYSKINESIA OF ESOPHAGUS 05/23/2018 ISAIAS HUNT Ot 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 05/23/2018 CRYSTAL OLGUIN, BETTYE B Ot H91.90 UNSPECIFIED HEARING LOSS, UNSPECIFIED EA 05/23/2018 DELAPRYL DO, BETTYE B Ot I10 ESSENTIAL (PRIMARY) HYPERTENSION 05/23/2018 CRYSTAL DO, BETTYE B Ot R13.10 DYSPHAGIA, UNSPECIFIED 05/23/2018 DELAPRYL DO, BETTYE B Ot T18.128A FOOD IN ESOPHAGUS CAUSING OTHER INJURY, 05/23/2018 DELAPRYL DO, BETTYE B Ot Z79.899 OTHER BUILDING DRAFTING OFFICER (CURRENT) DRUG THERAPY 05/23/2018 DELAPRYL DO, BETTYE B Ot Z87.891 PERSONAL HISTORY OF NICOTINE DEPENDENCE 05/25/2018 BETTYE ROJAS DO Ot H91.90 UNSPECIFIED HEARING LOSS, UNSPECIFIED EA 05/25/2018 BETTYE ROJAS DO Ot I10 ESSENTIAL (PRIMARY) HYPERTENSION 05/25/2018 BETTYE ROJSA DO Ot R13.10 DYSPHAGIA, UNSPECIFIED 05/25/2018 BETTYE ROJAS DO Ot T18.128A FOOD IN ESOPHAGUS CAUSING OTHER INJURY, 05/25/2018 BETTYE ROJAS DO Ot Z79.899 OTHER BUILDING DRAFTING OFFICER (CURRENT) DRUG THERAPY 05/25/2018 BETTYE ROJAS DO Ot Z87.891 PERSONAL HISTORY OF NICOTINE DEPENDENCE 02/07/2019 BETTYE ROJAS DO Ot Z01.818 ENCOUNTER FOR OTHER PREPROCEDURAL EXAMIN 2019 LIZETTE MANCILLA MD Ot 280.9 IRON DEFIC ANEMIA NOS 2019 LIZETTE MANCILLA MD Ot 280.9 IRON DEFIC ANEMIA NOS 2019 LIZETTE MANCILLA MD Ot 280.9 IRON DEFIC ANEMIA NOS 2019 LIZETTE MANCILLA MD Ot E61.1 IRON DEFICIENCY 2019 ISAIAS HUNT Ot D50.9 IRON DEFICIENCY ANEMIA, UNSPECIFIED 2019 ISAIAS HUNT Ot K22.4 DYSKINESIA OF ESOPHAGUS 2019 ISAIAS HUNT Ot 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 Results There is no data. Encounters ACCT No. Visit Date/Time Discharge Status Pt. Type Provider Facility Loc./Unit Complaint [id number] 09/16/2013 10:12:00 09/16/2013 23:59:59 CLS Outpatient ROSEMARIE VELASQUEZ DO [id number] 07/13/2017 23:10:15 07/13/2017 23:59:59 CLS Outpatient [id number] 07/05/2018 13:19:00 07/05/2018 23:59:00 DIS Outpatient Reinier Su [facility] 04/07/2015 09:27:50 ACT Document Registration [id number] 08/10/2017 12:40:00 08/10/2017 23:59:59 CLS Outpatient GI [facility] [id number] 02/07/2019 05:38:00 02/07/2019 12:06:00 DIS Outpatient BETTYE ROJAS DO B [facility] PREOP CYSTS [id number] 07/04/2018 16:08:00 07/04/2018 23:59:59 CLS Preadmit REINIER SU MD [facility] RAD RT EPIDIDYMITIS [id number] 05/23/2018 14:06:00 05/23/2018 17:10:00 DIS Outpatient BETTYE ROJAS DO B [facility] ENDO DYPHAGIA [id number] 08/24/2017 06:37:00 08/24/2017 10:00:00 DIS Outpatient BETTYE ROJAS DO B [facility] ENDO DYSPHAGIA [id number] 08/18/2017 05:46:00 08/18/2017 14:37:00 DIS Outpatient BETTYE ROJAS DO B Via [facility] PREOP EGD [id number] 07/24/2017 10:35:00 07/24/2017 23:59:59 CLS Outpatient ISAIAS HUNT [facility] RAD R13.14 [id number] 10/12/2016 10:10:00 10/12/2016 23:59:59 CLS Outpatient ISAIAS HUNT Via [facility] IRON DEFICIENCY ANEMIA [id number] 01/12/2016 09:01:00 01/12/2016 23:59:59 CLS Outpatient LIZETTE MANCILLA MD Via [facility] IRON DEFICIENCY [id number] 04/07/2015 09:25:00 04/07/2015 23:59:59 CLS Outpatient LIZETTE MANCILLA MD Via [facility] IRON DEFICIENCY [id number] 07/21/2014 09:49:00 07/21/2014 23:59:59 CLS Outpatient LIZETTE MANCILLA MD Via [facility] IRON DEF ANEMIA [id number] 10/10/2013 09:27:00 10/10/2013 23:59:59 CLS Outpatient LIZETTE MANCILLA MD Via [facility] IRON DEF ANEMIA [id number] 01/03/2013 09:22:00 01/03/2013 23:59:59 CLS Outpatient LAURENT BELTRAN, LIZETTE Simpson [facility] IRON DEFICIENCY ANEMIA [id number] 02/13/2019 08:00:00 PEN Preadmit BETTYE ROJAS DO Via [facility] CYSTS
[2019-02-13] MEDS ORDERED: PROPOFOL INJECTION 50 ML IV ONE (13:49)
[2019-02-13] MEDS ORDERED: MIDAZOLAM 2 MG/2 ML (VERSED) VIAL ONE (13:50)
[2019-02-13] MEDS ORDERED: fentaNYL INJECTION 100 MCG/2 ML AMP ONE (13:50)
[2019-02-13] MEDS ORDERED: LIDOCAINE 1% INJ 20 ML 20 ML VIAL ONE (13:55)
[2019-02-13] MEDS ORDERED: BUP/EPI 0.5% 1:200,000 (SENSORCAINE) 30 ML VIAL ONE (13:55)
--- NOTE | 2019-02-13 14:53 | Progress Note-Post Operative ---
Post-Operative Progess Note Surgeon (s)/Senior Python Developer (s) Surgeon BETTYE ROJAS DO Senior Python Developer: none Pre-Operative Diagnosis Left chest wall mass, left back mass Post-Operative Diagnosis same pending path Procedure & Operative Findings Date of Procedure 02/13/19 Procedure Performed/Findings 1. Exc left chest mass, into subQ appx 2.3cm incision 2. Exc Left back mass, into subQ appx 3.7 cm incision Anesthesia Type IV sedation by Anesthesia Estimated Blood Loss Estimated blood loss (mL): scant Specimens/Packing Specimens Removed left chest mass left back mass BETTYE ROJAS DO Feb 13, 2019 14:53
--- NOTE | 2019-02-13 14:55 | Discharge Inst-Surgical ---
Discharge Inst-Surgical Depart Medication/Instructions New, Converted or Re-Newed RX: Other (pt has home meds) Patient Instructions Follow up Appt: Make appointment for 1 week. [phone] Instructions: No strenuous activity. May shower in 24 hours, no tub bath or soaking. Use incentive spirometer at home as directed. No Smoking Skin/Wound Care: May remove bandages in am. You need to leave the Dermabond on incision it will fall off on it's own. Symptoms to Report: Appetite Changes, Extremity Discoloration, Numbness/Tingling, Swelling Increased, Bleeding Excessive, Eyesight Changes, Pain Increased, Urine Color Change, Constipation(Persistent), Fever over 101 degree F, Pain/Pressure in chest, Urinating Difficulty, Cough Up/Vomit Blood, Heart Beat Irreg/Pounding, Pain/Pressure in jaw, Cramps in feet or legs, Lightheadedness, Pain/Pressure in shoulder, Diarrhea(Persistent), Memory Changes Suddenly, Questions/Concerns, Weight gain consecutive days, Dizziness/Fainting, Nausea/Vomiting, Shortness of Breath, Weight gain over 2 pounds If questions or concerns contact your physician Or seek help at emergency department. Activity Activity as Tolerated: Yes Activity Instructions: Avoid Stress to Incision Driving Instructions: No Driving/Refer to Dr. Angel Discharge Diet: No Restrictions Diet After 24 Hours: Clear Liquid if Nauseous If Any Problems/Questions/Issu: Contact Your Physician, Go to Emergency Room Skin/Wound Care Infection Signs and Symptoms: Increased Redness, Foul Odor of Wound, Increased Drainage, Skin Itchy or Has a Rash, Increased Swelling, Temperature Above 101 F Bathing Instructions: Shower Stitches/Ernestina/Dermabond Dis: Dermabond Ice Pack: Ice On and Off Site BETTYE ROJAS DO Feb 13, 2019 14:55
[2019-02-13] MEDS ORDERED: ONDANSETRON 4 MG/2 ML (SDV) Z0FRAN IVP PRN (15:00)
[2019-02-13] MEDS ORDERED: morphine INJ 10 MG/ML 1ML (SYR OR VIAL) IVP ONE (15:00)
--- NOTE | 2019-02-13 15:37 | Anesthesia-General Post-Op ---
MAC Patient Condition Mental Status/LOC: Same as Preop Cardiovascular: Satisfactory Nausea/Vomiting: Absent Respiratory: Satisfactory Pain: Controlled Complications: Absent Post Op Complications Complications None Follow Up Care/Instructions Patient Instructions None needed. Anesthesiology Discharge Order Discharge Order Patient is doing well, no complaints, stable vital signs, no apparent adverse anesthesia problems. No complications reported per nursing. RAIN YIP CRNA Feb 13, 2019 15:37
--- NOTE | 2019-02-14 02:04 | OPERATIVE REPORT ---
DATE OF SERVICE: PREOPERATIVE DIAGNOSES: 1. Left chest mass. 2. Left back mass. POSTOPERATIVE DIAGNOSES: 1. Left chest mass. 2. Left back mass, pending pathology. PROCEDURES: 1. Excision of left chest mass approximately 2.3 cm incision into the subcutaneous tissue. 2. Excision of left back mass approximately 2.7 cm incision into the subcutaneous tissue. SURGEON: Krish Parish DO DINING SERVICE WORKER: None. ANESTHESIA: IV sedation by anesthesiologist. SPECIMENS: 1. Left chest mass. 2. Left back mass. BLOOD LOSS: Scant. FLUIDS: Per anesthesia. POSTOPERATIVE CONDITION: Stable. INDICATION FOR PROCEDURE: The patient is an 84-year-old male who has 2 masses, one on his left chest, one in the left back, he wanted to get them removed, they are both in the subcutaneous tissue. FINDINGS: The patient had 2 masses removed from the subcutaneous tissue; both appeared to be sebaceous cysts. PROCEDURE NOTE: After informed consent was obtained, the patient was brought to the operating room, placed on the table in the supine position, sterilely prepped and draped in normal fashion. Local lidocaine was used to infiltrate around the left chest mass as well as under it. I then made a small incision directly over the mass using #15 blade, carried down through the skin into subcutaneous tissue. Carefully dissecting around this appeared to be a sebaceous cyst. This went down on to almost the chest wall going around this to remove this. I did get into little bit of the sebaceous material expressed then able to finally get around this were totally and removed this and sent this off to pathology. Copiously irrigated the incision with normal saline and then closing the skin with 4-0 undyed Monocryl with interrupted subcuticular stitches. Area was cleaned and dried. Dermabond placed. The patient then rotated onto his left side and switched to do the left back mass. Again, here infiltrated with local and then made an elliptical incision to remove the previous area of inflammation in this mass. Incision measured about 3.7 cm. Using a new #15 blade, carried down through the skin into subcutaneous tissue, deepened down into subcutaneous tissue with Bovie electrocautery down around this mass, looked like it was another sebaceous cyst. It was removed en bloc and passed off table and sent to pathology. Copiously irrigated this incision with normal saline and closed the deep subcutaneous tissue with 3-0 Vicryl; 2 interrupted sutures and then closed the skin with 4-0 undyed Monocryl in running subcuticular fashion. Area was cleaned and dried and Dermabond and pressure dressing placed. The patient was then transferred to recovery room in stable condition. Sponge, insturment and needle counts correct at the end of the case. Job ID: [id number] DocumentID: [id number] Dictated Date: 02/13/2019 17:10:03 Web Art Director Date: 02/14/2019 02:03:56 Dictated By: DO ALICIA CHAND
== END 2019-02-13 16:10 | disposition home or self-care (01) ==
LOC: SDC 09:04
PROVIDERS: ATTEND Surgery
DX: L72.0 Epidermal cyst (principal); Z11.2 Encounter for screening for other bacterial diseases; I10 Essential (primary) hypertension; K29.50 Unspecified chronic gastritis without bleeding; Z87.891 Personal history of nicotine dependence
CPT/HCPCS: 87081; 88304

== ENCOUNTER 2019-04-03 13:46 | Day surgery (SDC) | payer MEDICARE, OTHER ==
[~2019-04-03] VITALS: Ht 180.3 cm; Wt 70.3 kg
--- OUTSIDE RECORDS SUMMARY | 2019-04-03 13:51 | XMS REPORT | Encounter Summary ---
Author Author [facility] Organization [facility] Address Unknown Phone Unavailable Care Team Providers Care Business System Consultant Name Role Phone PCP Unavailable Encounter Details Care Team Description Date Type Department Margarito Ruano MD retired 11/04/2003 [facility] Encounter [id number] [place] [address] Social History Date Tobacco Use Types Packs/Day Years Used Never Assessed Sex Assigned at Date Recorded Not on file Industry Job Start Date Occupation Not on file Not on file Not on file Travel End Travel History Travel Start No recent travel history available. documented as of this encounter Plan of Treatment Not on filedocumented as of this encounter Procedures Comments Procedure Name Priority Date/Time Associated Diagnosis COAGULATION SCREEN Routine 11/04/2003 6:18 PM REPAIRER TYPEWRITER DIFFERENTIAL Routine 11/04/2003 6:18 PM REPAIRER TYPEWRITER URINALYSIS (INCLUDES Routine 11/04/2003 MICROSCOPIC REVIEW, IF 6:18 PM REPAIRER TYPEWRITER INDICATED) COMPREHENSIVE METABOLIC Routine 11/04/2003 PANEL 6:18 PM REPAIRER TYPEWRITER CBC AND DIFF (MANUAL DIFF Routine 11/04/2003 IF NECESSARY) 6:18 PM REPAIRER TYPEWRITER documented in this encounter Results * Comprehensive Metabolic Panel (11/04/2003 6:18 PM REPAIRER TYPEWRITER) Albumin 4.4 3.6 - 4.6 G/DL SUNQUEST Aspartate 42 20 - 50 IU/L SUNQUEST Aminotransferas e Bilirubin Total 0.3 0.0 - 1.1 MG/DL SUNQUEST Protein Total 7.6 6.5 - 8.2 G/DL SUNQUEST Serum Calcium 9.0 8.8 - 10.5 MG/DL SUNQUEST Creatinine 1.1 0.5 - 1.5 MG/DL SUNQUEST Glucose 71 65 - 110 MG/DL SUNQUEST Alkaline 99 40 - 125 IU/L SUNQUEST Phosphatase Sodium 143 134 - 144 MEQ/L SUNQUEST Potassium 4.7 3.6 - 5.0 MEQ/L SUNQUEST Chloride 107 98 - 107 MEQ/L SUNQUEST Carbon Dioxide 27 23 - 32 MEQ/L SUNQUEST Blood Urea 17 5 - 20 MG/DL SUNQUEST Nitrogen Anion Gap 9 3 - 15 SUNQUEST Alanine 37 20 - 60 IU/L SUNQUEST Aminotransferas e Specimen Blood Performing Organization Address [facility] Phone Number R [phone] [place] [address] SUNQUEST * DIFFERENTIAL (11/04/2003 6:18 PM REPAIRER TYPEWRITER) % Neutrophils 53 45 - 78 % SUNQUEST %Lymphocytes 32 15 - 47 % SUNQUEST %Monocytes 9 0 - 12 % SUNQUEST %Eosinophils 5 0 - 7 % SUNQUEST %Basophils 1 0 - 2 % SUNQUEST # Granulocytes 4.3 1.7 - 6.8 TH/UL SUNQUEST # Lymphocytes 2.6 1.0 - 3.3 TH/UL SUNQUEST # Monocytes 0.7 0.2 - 0.9 TH/UL SUNQUEST # Eosinophils 0.4 0.0 - 0.4 TH/UL SUNQUEST # Basophils 0.1 0.0 - 0.2 TH/UL SUNQUEST Specimen Blood Performing Organization Address [facility] Phone Number RL [phone] [place] [address] SUNQUEST * CBC and Diff (manual diff if necessary) (11/04/2003 6:18 PM REPAIRER TYPEWRITER) WBC 8.1 4.0 - 11.0 TH/UL SUNQUEST RBC 4.52 4.31 - 5.84 MIL/UL SUNQUEST Hemoglobin 15.1 13.0 - 17.0 G/DL SUNQUEST Hematocrit 45 40 - 50 % SUNQUEST MCV 99 80 - 99 FL SUNQUEST MCH 34 27 - 34 PG SUNQUEST MCHC 34 32 - 36 % SUNQUEST RDW 13.2 <14.5 % SUNQUEST Platelet Count 296 140 - 400 TH/UL SUNQUEST Specimen Blood Performing Organization Address [facility] Cent[facility]ode Phone Number R [phone] [place] [address] SUNQUEST * Urinalysis (11/04/2003 6:18 PM REPAIRER TYPEWRITER) Appearance, YELLOW SUNQUEST Urine Specific >=1.030 <1.030 SUNQUEST [place], UA PH Urine 5.0 5.0 - 8.0 SUNQUEST Hemoglobin NEGATIVE NEGATIVE SUNQUEST Urine Ketones Urine NEGATIVE NEGATIVE SUNQUEST Glucose Urine 250 (A) NEGATIVE SUNQUEST Protein Urine NEGATIVE NEGATIVE SUNQUEST Qual Leukocyte NEGATIVE NEGATIVE SUNQUEST Esterase Urobilinogen NEGATIVE NEGATIVE SUNQUEST Urine Bilirubin Urine NEGATIVE NEGATIVE SUNQUEST Specimen Urine Performing Organization Address [facility] Phone Number R [phone] [place] [address] SUNQUEST * Coagulation Screen (11/04/2003 6:18 PM REPAIRER TYPEWRITER) APTT 27 21 - 34 SEC SUNQUEST Protime 12.9 12.1 - 14.5 SEC SUNQUEST INR 1.0 SUNQUEST Platelet Count 296 140 - 400 TH/UL SUNQUEST Fibrinogen 357 146 - 390 MG/DL SUNQUEST Assay Specimen Blood Performing Organization Address [facility] Phone Number RL [phone] [place] [address] SUNQUEST documented in this encounter Visit Diagnoses Not on filedocumented in this encounter
--- OUTSIDE RECORDS SUMMARY | 2019-04-03 13:51 | XMS REPORT | Encounter Summary ---
Author Author [facility] Organization [facility] Address Unknown Phone Unavailable Care Team Providers Care Auto Mechanic Name Role Phone PCP Unavailable Encounter Details Care Team Description Date Type Department Attila Ruano MD retired BENIGN RENETTA CRANIAL NERVE (HCC) 11/11/2003 Hospital [facility] - Encounter 11/13/2003 Social History Date Tobacco Use Types Packs/Day Years Used Never Assessed Sex Assigned at Date Recorded Not on file Industry Job Start Date Occupation Not on file Not on file Not on file Travel End Travel History Travel Start No recent travel history available. 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 SURGICAL PROCEDURE: 11/11/2003. Right posterior lateral craniotomy with translabyrinthine exposure and gross total removal of 23 mm right vestibular schwannoma. ANESTHESIA: General endotracheal anesthesia. HOSPITAL COURSE: He spent the first night in the intensive care unit, had no noticeable nystagmus and no vertigo the morning following surgery. He did have some facial weakness, a House II-III. He was transferred to the floor the postoperative day and made an uneventful recovery thereafter. He was ready for discharge on the second postoperative day with no evidence of spinal fluid leak, he was afebrile. His wounds were fine and his face was possibly slightly weaker but he had movement in all branches of the facial nerve. FINAL DIAGNOSIS: Vestibular schwannoma, right. DISCHARGE INSTRUCTIONS: Prednisone 40 mg for 3 days, 30 mg for 3 days, 20 mg for 3 days, and 10 mg for 3 days and then stop. I will see him back in about 3 weeks. Attila Ruano M.D. Dictated By: cc: Santiago Leiva M.D., [place] [address] Zuhair Caraballo M.D. [employer] documented in this encounter H&P Notes * Attila Ruano - 11/02/2013 5:52 PM [employer]PER[employer] Report Name: TAVON HIGGINS Attending Physician: ATTILA RUANO Date of : 1935 INTRODUCTION: A 68-year-old male for right posterolateral craniotomy with translabyrinthine exposure and removal of acoustic tumor on 11/11/2003. HISTORY OF PRESENT ILLNESS: I first started seeing this patient in 06/2000 for a small acoustic tumor that was intracanalicular. Unfortunately, this tumor has grown and is now approximately 21 mm in size. There has been serial growth of this tumor. He has no useful hearing in the right ear and he has developed some mild imbalance. He has no significant neurological findings otherwise. An ENG disclosed an almost totally absent vestibular response on the right side. ALLERGIES: HE IS ALLERGIC TO NO MEDICATIONS. MEDICATIONS: He takes no medications. PAST MEDICAL HISTORY: He is in good health. 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 PHYSICAL EXAMINATION: Both tympanic membranes are normal. Heart and lungs are clear. 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 PROPOSED SURGICAL PROCEDURE: Posterolateral craniotomy, translabyrinthine exposure and removal of right 21 mm acoustic tumor on 11/11/2003. Attila Ruano M.D. Dictated By: Cc: [employer]PER[employer] documented in this encounter Miscellaneous Notes * Operative Note - Attila Ruano - 11/02/2013 5:50 PM [employer]PER[employer] [id number]/Unit #: [id number] Attending Physician: ATTILA RUANO Date of : 1935 DATE OF OPERATION: 11/11/2003 PREOPERATIVE DIAGNOSIS: 21 mm right acoustic tumor (vestibular schwannoma). POSTOPERATIVE DIAGNOSIS: 21 mm right acoustic tumor (vestibular schwannoma). PATHOLOGY: None OPERATIONS PERFORMED: 1. Posterolateral craniotomy with translabyrinthine exposure. 2. Intradural microdissection and tumor removal of vestibular schwannoma. 3. Intraoperative facial nerve monitoring. 4. Abdominal fat and fascia for closure of craniotomy defect. 5. Microdissection with the operating microscope. SURGEON: Attila Ruano M.D. BRIEF HISTORY: This 68-year-old male was first seen by me in June 2000 because of a right intracanalicular acoustic tumor. A year later, the tumor had not changed in size and did not protrude beyond medial air cells of the petrous tip. However, when I saw him again in September and measured the tumor as seen on outpatient imaging, this tumor measured 23 mm by the radiologists' measurement and 21 mm by mine. It was indenting the brainstem. DESCRIPTION OF PROCEDURE: This operation was done jointly with Dr. Zuhair Caraballo as co-surgeon and he is dictating a separate operative report. After satisfactory induction of endotracheal anesthesia, electrodes were placed into the orbicularis oculi, orbicularis charles and frontalis muscles by me for continuous intraoperative facial nerve monitoring. A left posterior incision was then performed, the mastoid periosteum elevated, and a cortical mastoidectomy accomplished. His sigmoid sinus was skeletonized. The facial recess was opened, the incus removed, and periosteum fascia and muscle placed into the eustachian tube and middle ear space to prevent postoperative spinal fluid rhinorrhea. The mastoid was large and afforded good exposure. Bone removal was accomplished from the superior petrosal sign superiorly to the jugular bulb inferiorly, collapsing the sigmoid sinus posteriorly and holding it with a Dano sigmoid retractor and forward to the facial nerve. The internal auditory canal was skeletonized in an arch of 180 degrees. The tumor could be seen enlarging and bulging the dura of the internal auditory canal. The area of the superior vestibular nerve and the facial nerve was identified in the lateral aspect of the internal auditory canal after incising the dura. The superior vestibular nerve, cochlear nerve, and inferior vestibular nerve were evulsed from their lateral attachment and things left at that point. The posterior fossa dura was then opened in an apron-shaped fashion to expose the tumor. The tumor was then gutted with the ultrasonic CUSA centrally collapsing it. The brainstem was easily visualized. The 8th nerve was amputated at its entrance to the brainstem. The 7th nerve was seen on the brainstem and followed distally for a few millimeters. Attention was then turned to the lateral aspect of the internal auditory canal where the tumor was then dissected carefully away from the facial nerve all the way to the brainstem. The facial nerve was intact. It stimulated to 0.05 milliamps at the brainstem root entry zone. The tumor was then removed from the cerebellopontine angle. There was no significant bleeding. The dura was approximated and abdominal fascia was then used to line the craniotomy defect and tamponaded by abdominal fat. The postauricular incision was closed. A mastoid dressing was applied. He was extubated and returned to the recovery room in satisfactory condition. At the time of extubation in the operating room, he exhibited very slight facial weakness on the right. At the time of this dictation, 30 or 40 minutes later, after he has awakened in the recovery room, I do not know if his facial function is stronger. At the time of extubation, the facial nerve monitor was indicating good electrophysiological responses of the facial musculature. Estimated blood loss was less than 150 cc and there were no vital sign changes. In summary, this was a posterolateral craniotomy translabyrinthine exposure and gross total removal of a 23 mm right vestibular Schwannoma preserving anatomically and electrophysiologically the facial nerve utilizing intraoperative facial nerve monitoring and the operating microscope for microdissection. Estimated blood loss was 150 cc. No vital sign changes and time of the operation was 4 hours and 30 minutes. Attila Ruano M.D. cc: Sid Neely, [address], [place], [place], [address] Santiago Leiva M.D., [facility], [facility], [address], [place], [place], Zuhair Caraballo M.D. [employer] SUPERVIS[employer] * Operative Note - Zuhair Caraballo MD - 11/02/2013 5:27 PM [employer] Report Name: TAVON HIGGINS MRN/Unit #: [id number] Attending Physician: ATTILA RUANO Date of : 1935 DATE OF OPERATION: 11/11/2003. PREOPERATIVE DIAGNOSIS: Left-sided vestibular schwannoma. POSTOPERATIVE DIAGNOSIS: Left-sided vestibular schwannoma. PROCEDURES: 1. Left posterior lateral craniotomy and translabyrinthine approach to vestibular schwannoma. 2. Definitive resection of posterior fossa skull base lesion (vestibular schwannoma). 3. Storden of abdominal fat and fascia. 4. Microdissection. SURGEON: Zuhair Caraballo MD. CO-SURGEON: Attila Ruano MD. DRAINS: None. COMPLICATIONS: None. INDICATIONS FOR SURGERY: The patient is a 68-year-old gentleman that Dr. Ruano has seen before for a vestibular schwannoma. The tumor has grown in the four years it has been followed and is now approximately 22 mm. After a careful discussion of the risks and benefits of surgery, he is brought to surgery now for definitive resection of this via a translabyrinthine approach. DESCRIPTION OF PROCEDURE: This will be a co-surgery dictated by Dr. Ruano and myself. We both participated equally in all parts the procedure. Dr. Ruano will describe the opening in detail. Briefly, the left retroauricular area was shaved and sterilely prepped and draped in the usual fashion. The patient's head was resting on the table. Lidocaine 1% with epinephrine was infiltrated for hemostasis. A retroauricular incision was made and carried down to the pericranium, which was then elevated. The muscle was elevated as well. A mastoidectomy was then performed. The facial recess was opened and the bits of fascia and muscle were packed into the eustachian tube to prevent CSF leak. The mastoidectomy was continued through the bony labyrinth and membranous labyrinth to reveal the internal auditory canal and its contents. At this point, the dura was opened and allowed to rest back on the cerebellum. The tumor was seen markedly bulging not only out of the internal auditory canal but from the cerebellar surface. Dr. Ruano then transected the superior vestibular nerve and began to roll the tumor out from lateral to medial. The tumor was then gutted after coagulating the back of the tumor with bipolar cautery. In addition, the tumor was stimulated all across the back to make sure that there were no facial nerve fibers there. Seeing none, we went ahead and incised it and began to gut the tumor using the [employer] ultrasonic aspirator. As we did so, we rolled the posterior capsule of the tumor forward off of the cerebellum, marking the plane very carefully. Eventually we arrived at the brainstem and were able to identify the 7th nerve anterior to the inferior part of the tumor coming out of the brainstem. That having been identified, we could then very easily amputate the 8th nerve and then roll the tumor medial to lateral. When it became evident that the tumor was adherent to the 7th nerve just as it came out of the internal auditory canal, we went back lateral and dissected the tumor very carefully using Chaim elevators off of the facial nerve as well as sharp dissection. The entire tumor was then removed and the facial nerve stimulated very nicely at the brainstem at 0.05 mA. We then closed the incision after irrigating and observing for absolute hemostasis. Dr. Ruano had gone down to the abdomen to harvest some fat and fascia. I closed the fascia in standard fashion using chromic and closed the subcutaneous tissues with 3-0 Vicryl and a 4-0 undyed Vicryl in the skin. The ear was then closed in standard fashion by placing fascia and fat over the defect. The skin and muscle were closed on top of that in layers. A compressive dressing was applied, and the patient was sent to the intensive care unit in stable condition. Zuhair Caraballo M.D. Dictated By: cc: [employer] SUPERVISOR documented in this encounter Plan of Treatment Not on filedocumented as of this encounter Procedures Comments Procedure Name Priority Date/Time Associated Diagnosis [place] [facility] Routine 11/11/2003 1:53 PM [employer] SUPER[employer]OR documented in this encounter Results * Pathology (11/11/2003 1:53 PM [employer] SUPER[employer]OR) Specimen Narrative Performed At [facility] Order Comments [id number] M68 YRS SI NSIC 03 S U R G I C A L P A T H O L O G Y [id number] SPECIMEN Right vestibular schwannoma GR[facility] PATHOLOGY Received in formalin in a properly labeled container is a cauterized 1.2 x 1.1 cm pink-red biopsy specimen.Its cut surface has a uniform pink appearance. Bisected.All submitted. KF/kristien JRD/sdn D I A G N O S I S A F T E R M I C R O S C O P I CE X A M I N A T I O N/ Right vestibular tumor, biopsy - Schwannoma with ancient change. [id number], [id number], [id number] TANESHA/ kristien Robert ELIZABETH M.D. 11/12/03 (ELECTRONIC SIGNATURE) PATHOLOGIST COMMENTS The histologic findings show spindled cells without mitotic activity.There is focal hyperchromasia and nuclear enlargement consistent with ancient change.The associated vessels show focal mild hyalinization.Focal foamy macrophages are also present.The spindle cell component stains strongly and diffusely with antibody to S-100.The findings are consistent with a schwannoma showing ancient change. 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
--- OUTSIDE RECORDS SUMMARY | 2019-04-03 13:51 | XMS REPORT | Clinical Summary ---
Author Author [facility] Organization [facility] Address Unknown Phone Unavailable Care Team Providers Care Critical Care Paramedic Name Role Phone PCP Unavailable Allergies Not on File Medications Not on file Active Problems Not on file Social History Date Tobacco Use Types Packs/Day Years Used Never Assessed Sex Assigned at Date Recorded Not on file Industry Job Start Date Occupation Not on file Not on file Not on file Travel End Travel History Travel Start No recent travel history available. Last Filed Vital Signs Not on file Plan of Treatment Not on file Results Not on filefrom Last 3 Months
--- OUTSIDE RECORDS SUMMARY | 2019-04-03 13:55 | XMS REPORT | CCD ---
Author Author [facility] Organization [facility] Address [address] [place] [address] Phone Care Team Providers Care Broke Beater Name Role Phone PP Unavailable CCM Unavailable Summary Purpose Interface Exchange Insurance Providers Payer name Policy type / Coverage type Covered republican ID Effective Begin Date Effective End Date WPS Medicare Part B Medicare Part B [id number] Unknown Unknown FOR LIFE WPS Medicare Part B [id number] Unknown Unknown Family history Father Diagnosis Age At Onset No Known Diseases N/A Mother Diagnosis Age At Onset No Known Diseases N/A Social History Social History Element Codes Description Effective Dates Marital status Unknown 04/26/2016 Number of children Unknown 3 04/26/2016 Employment Unknown Retired 04/26/[address]: 2589885 Former smoker Quit 1968 04/26/[address]: 959573 Currently drinks alcohol 04/26/2016 Has the patient [...] ICD-9: 281.0 ICD-10: D51.0 Active 07/26/2016 Unknown Sebaceous cyst ICD-9: 706.2 ICD-10: L72.3 Active 01/08/2019 Unknown Chronic pain syndrome ICD- 9: 338.4 [...] deficiency ICD-9: 281.0 ICD-10: D51.0 07/26/2016 Active Sebaceous cyst ICD-9: 706.2 ICD-10: L72.3 01/08/2019 Active Chronic pain syndrome ICD- 9: 338.4 [...] morphine ER 30 mg tablet,extended release RxNorm: 325016 1 Tablet(s) PO daily 03/26/2019 04/24/2019 Active cyanocobalamin (vit B-12) 1,000 mcg/mL injection solution RxNorm: 537333 1 Milliliter(s) Inj 03/26/2019 03/26/2019 Inactive amlodipine 5 mg tablet RxNorm: 366860 1 Tablet(s) PO QPM 02/25/2019 01/20/2020 Active lisinopril 20 mg tablet RxNorm: 360307 1 Tablet(s) PO BID 02/25/2019 01/20/2020 Active morphine ER 30 mg tablet,extended release RxNorm: 747637 1 Tablet(s) PO daily 02/25/2019 03/25/2019 Inactive cyanocobalamin (vit B-12) 1,000 mcg/mL injection solution RxNorm: 749842 1 Milliliter(s) Inj 02/25/2019 02/25/2019 Inactive morphine ER 30 mg tablet,extended release RxNorm: 487597 1 Tablet(s) PO daily 01/25/2019 02/23/2019 Inactive cyanocobalamin (vit B-12) 1,000 mcg/mL injection solution RxNorm: 118348 Milliliter(s) Inj 01/25/2019 01/25/2019 Inactive doxycycline hyclate 100 mg tablet RxNorm: 7766886 1 Tablet(s) PO BID 01/08/2019 01/14/2019 Inactive cyanocobalamin (vit B-12) 1,000 mcg/mL injection solution RxNorm: 993270 Milliliter(s) Inj 12/27/2018 12/27/2018 Inactive morphine ER 30 mg tablet,extended release RxNorm: 784341 1 Tablet(s) PO daily 12/27/2018 01/24/2019 Inactive cyanocobalamin (vit B-12) 1,000 mcg/mL injection solution RxNorm: 038753 Milliliter(s) Inj 11/29/2018 11/29/2018 Inactive morphine ER 30 mg tablet,extended release RxNorm: 433820 1 Tablet(s) PO daily 10/29/2018 11/27/2018 Inactive cyanocobalamin (vit B-12) 1,000 mcg/mL injection solution RxNorm: 242440 Milliliter(s) Inj 10/29/2018 10/29/2018 Inactive cyanocobalamin (vit B-12) 1,000 mcg/mL injection solution RxNorm: 637247 Milliliter(s) Inj 09/28/2018 09/28/2018 Inactive morphine ER 30 mg tablet,extended release RxNorm: 371133 1 Tablet(s) PO daily 09/28/2018 10/27/2018 Inactive morphine ER 30 mg tablet,extended release RxNorm: 561877 1 Tablet(s) PO daily 08/30/2018 09/27/2018 Inactive cyanocobalamin (vit B-12) 1,000 mcg/mL injection solution RxNorm: 226040 Milliliter(s) Inj 08/30/2018 08/30/2018 Inactive cyanocobalamin (vit B-12) 1,000 mcg/mL injection solution RxNorm: 351710 Milliliter(s) Inj 07/31/2018 07/31/2018 Inactive morphine ER 30 mg tablet,extended release RxNorm: 942649 1 Tablet(s) PO daily 07/31/2018 08/29/2018 Inactive amlodipine 5 mg tablet RxNorm: 930721 1 Tablet(s) PO QPM 07/11/2018 01/06/2019 Inactive cyanocobalamin (vit B-12) 1,000 mcg/mL injection solution RxNorm: 849037 1 Milliliter(s) Inj 07/02/2018 07/02/2018 Inactive morphine ER 30 mg tablet,extended release RxNorm: 904927 1 Tablet(s) PO daily 07/02/2018 07/30/2018 Inactive morphine ER 30 mg tablet,extended release RxNorm: 733033 1 Tablet(s) PO daily 05/31/2018 06/29/2018 Inactive cyanocobalamin (vit B-12) 1,000 mcg/mL injection solution RxNorm: 815805 Milliliter(s) Inj 05/31/2018 05/31/2018 Inactive Protonix 40 mg tablet,delayed release RxNorm: 274952 1 Tablet(s) PO daily 05/23/2018 06/21/2018 Inactive Carafate 1 gram tablet RxNorm: 627397 1 Tablet(s) PO AC & HS as needed 05/23/2018 06/21/2018 Inactive cyanocobalamin (vit B-12) 1,000 mcg/mL injection solution RxNorm: 525657 1 Milliliter(s) Inj 05/03/2018 05/03/2018 Inactive morphine ER 30 mg tablet,extended release RxNorm: 621294 1 Tablet(s) PO daily 04/04/2018 05/03/2018 Inactive cyanocobalamin (vit B-12) 1,000 mcg/mL injection solution RxNorm: 647120 1 Milliliter(s) Inj 04/04/2018 04/04/2018 Inactive cyanocobalamin (vit B-12) 1,000 mcg/mL injection solution RxNorm: 269208 1 Milliliter(s) Inj 03/05/2018 03/05/2018 Inactive morphine ER 30 mg tablet,extended release RxNorm: 554625 1 Tablet(s) PO daily 03/05/2018 04/03/2018 Inactive cyanocobalamin (vit B-12) 1,000 mcg/mL injection solution RxNorm: 335484 1 Milliliter(s) Inj 01/30/2018 01/30/2018 Inactive cyanocobalamin (vit B-12) 1,000 mcg/mL injection solution RxNorm: 379079 1 Milliliter(s) Inj 01/01/2018 01/01/2018 Inactive morphine ER 30 mg tablet,extended release RxNorm: 249860 1 Tablet(s) PO daily 01/01/2018 01/30/2018 Inactive amlodipine 5 mg tablet RxNorm: 010619 1 Tablet(s) PO QPM 12/18/2017 06/15/2018 Inactive lisinopril 20 mg tablet RxNorm: 919897 1 Tablet(s) PO BID 12/18/2017 12/12/2018 Inactive cyanocobalamin (vit B-12) 1,000 mcg/mL injection solution RxNorm: 771938 1 Milliliter(s) Inj 11/28/2017 11/28/2017 Inactive morphine ER 30 mg tablet,extended release RxNorm: 667325 1 Tablet(s) PO daily 11/28/2017 12/27/2017 Inactive morphine ER 30 mg tablet,extended release RxNorm: 645127 1 Tablet(s) PO daily 11/09/2017 11/27/2017 Inactive cyanocobalamin (vit B-12) 1,000 mcg/mL injection solution RxNorm: 492635 1 Milliliter(s) Inj 10/24/2017 10/24/2017 Inactive morphine ER 30 mg tablet,extended release RxNorm: 830777 1 Tablet(s) PO daily 10/10/2017 11/08/2017 Inactive hydrochlorothiazide 25 mg tablet RxNorm: 563472 1 Tablet(s) PO daily 10/10/2017 11/08/2017 Inactive cyanocobalamin (vit B-12) 1,000 mcg/mL injection solution RxNorm: 846900 1 Milliliter(s) Inj 09/26/2017 09/26/2017 Inactive hydrochlorothiazide 12.5 mg tablet RxNorm: 076470 1 Tablet(s) PO daily 09/26/2017 10/25/2017 Inactive morphine ER 30 mg tablet,extended release RxNorm: 093614 1 Tablet(s) PO daily 09/12/2017 10/09/2017 Inactive cyanocobalamin (vit B-12) 1,000 mcg/mL injection solution RxNorm: 685070 1 Milliliter(s) Inj 08/10/2017 08/10/2017 Inactive morphine ER 30 mg tablet,extended release RxNorm: 169093 1 Tablet(s) PO daily 08/10/2017 09/08/2017 Inactive Vitamin B-12 1,000 mcg/mL injection solution RxNorm: 234200 1 Milliliter(s) Inj month 07/21/2017 No Stop Date Active B12 INJECTIONS MONTHLY cyanocobalamin (vit B-12) 1,000 mcg/mL injection solution RxNorm: 273401 1 Milliliter(s) Inj 07/18/2017 07/18/2017 Inactive morphine ER 30 mg tablet,extended release RxNorm: 824931 1 Tablet(s) PO daily 07/13/2017 08/09/2017 Inactive morphine ER 30 mg tablet,extended release RxNorm: 926910 1 Tablet(s) PO daily 06/15/2017 07/12/2017 Inactive cyanocobalamin (vit B-12) 1,000 mcg/mL injection solution RxNorm: 686536 1 Milliliter(s) Inj 05/16/2017 05/16/2017 Inactive morphine ER 30 mg tablet,extended release RxNorm: 025774 1 Tablet(s) PO daily 04/13/2017 05/12/2017 Inactive cyanocobalamin (vit B-12) 1,000 mcg/mL injection solution RxNorm: 252227 1 Milliliter(s) Inj 03/14/2017 03/14/2017 Inactive morphine ER 30 mg tablet,extended release RxNorm: 918130 1 Tablet(s) PO daily 03/14/2017 04/12/2017 Inactive morphine ER 30 mg tablet,extended release RxNorm: 364452 1 Tablet(s) PO daily 02/13/2017 03/13/2017 Inactive Kenalog 40 mg/mL suspension for injection RxNorm: 9441247 1 Milliliter(s) Inj 01/12/2017 01/12/2017 Inactive cyanocobalamin (vit B-12) 1,000 mcg/mL injection solution RxNorm: 142036 1 Milliliter(s) Inj 01/12/2017 01/12/2017 Inactive Zithromax Z-[place] 250 mg tablet RxNorm: 423782 1 Tablet(s) PO UD 01/12/2017 01/16/2017 Inactive ceftriaxone 500 mg solution for injection RxNorm: 2591692 1 Milliliter(s) Inj 01/12/2017 01/12/2017 Inactive Vitamin B-12 1,000 mcg/mL injection solution RxNorm: 268897 1 Milliliter(s) Inj EVERY OTHER MONTH 01/04/2017 07/20/2017 Inactive lisinopril 20 mg tablet RxNorm: 035693 1 Tablet(s) PO BID 01/02/2017 12/17/2017 Inactive lisinopril 20 mg tablet RxNorm: 089471 1 Tablet(s) PO BID 12/12/2016 01/01/2017 Inactive morphine ER 30 mg tablet,extended release RxNorm: 023478 1 Tablet(s) PO daily 12/08/2016 01/06/2017 Inactive lisinopril 20 mg tablet RxNorm: 388464 1 Tablet(s) PO BID 11/03/2016 12/11/2016 Inactive morphine ER 30 mg tablet,extended release RxNorm: 008659 1 Tablet(s) PO daily 11/03/2016 12/02/2016 Inactive cyanocobalamin (vit B-12) 1,000 mcg/mL injection solution RxNorm: 155669 1 Milliliter(s) Inj 10/27/2016 10/27/2016 Inactive lisinopril 10 mg tablet RxNorm: 042229 1 Tablet(s) PO BID 10/06/2016 11/02/2016 Inactive lisinopril 10 mg tablet RxNorm: 934985 1 Tablet(s) PO daily 09/06/2016 10/05/2016 Inactive morphine ER 30 mg tablet,extended release RxNorm: 807945 1 Tablet(s) PO daily 08/18/2016 09/16/2016 Inactive cyanocobalamin (vit B-12) 1,000 mcg/mL injection solution RxNorm: 663456 Milliliter(s) Inj 07/27/2016 07/27/2016 Inactive morphine ER 30 mg tablet,extended release RxNorm: 389095 1 Tablet(s) PO daily 07/21/2016 08/17/2016 Inactive morphine ER 30 mg tablet,extended release RxNorm: 321267 1 Tablet(s) PO daily 06/20/2016 07/19/2016 Inactive morphine ER 30 mg tablet,extended release RxNorm: 140019 1 Tablet(s) PO daily 05/20/2016 06/19/2016 Inactive cyanocobalamin (vit B-12) 1,000 mcg/mL injection solution RxNorm: 682820 1 Milliliter(s) Inj 04/26/2016 04/26/2016 Inactive gentamicin 0.3 % eye drops RxNorm: 771678 2 Drop(s) OPH Q4H 04/26/2016 05/02/2016 Inactive Vitamin B-12 1,000 mcg/mL injection solution RxNorm: 603328 1 Milliliter(s) Inj EVERY 3 MONTHS No Start Date 01/03/2017 Inactive Claritin 10 mg tablet RxNorm: 153383 1 Tablet(s) PO daily No Start Date 07/17/2017 Inactive Venofer intravenous RxNorm: 50650 intravenous No Start Date 08/14/2018 Inactive morphine ER 30 mg tablet,extended release RxNorm: 709958 1 Tablet(s) PO daily No Start Date 04/25/2016 Inactive Medication Administered Medication Codes Instructions Start Date Status cyanocobalamin (vit B-12) 1,000 mcg/mL injection solution RxNorm: 316246 1Milliliter 03/26/2019 Active cyanocobalamin (vit B-12) 1,000 mcg/mL injection solution RxNorm: 503454 1Milliliter 02/25/2019 No longer Active cyanocobalamin (vit B-12) 1,000 mcg/mL injection solution RxNorm: 636921 Milliliter 01/25/2019 No longer Active cyanocobalamin (vit B-12) 1,000 mcg/mL injection solution RxNorm: 319147 Milliliter 12/27/2018 No longer Active cyanocobalamin (vit B-12) 1,000 mcg/mL injection solution RxNorm: 118289 Milliliter 11/29/2018 No longer Active cyanocobalamin (vit B-12) 1,000 mcg/mL injection solution RxNorm: 927233 Milliliter 10/29/2018 No longer Active cyanocobalamin (vit B-12) 1,000 mcg/mL injection solution RxNorm: 459767 Milliliter 09/28/2018 No longer Active cyanocobalamin (vit B-12) 1,000 mcg/mL injection solution RxNorm: 112297 Milliliter 08/30/2018 No longer Active cyanocobalamin (vit B-12) 1,000 mcg/mL injection solution RxNorm: 265190 Milliliter 07/31/2018 No longer Active cyanocobalamin (vit B-12) 1,000 mcg/mL injection solution RxNorm: 811432 1Milliliter 07/02/2018 No longer Active cyanocobalamin (vit B-12) 1,000 mcg/mL injection solution RxNorm: 854736 Milliliter 05/31/2018 No longer Active cyanocobalamin (vit B-12) 1,000 mcg/mL injection solution RxNorm: 347032 1Milliliter 05/03/2018 No longer Active cyanocobalamin (vit B-12) 1,000 mcg/mL injection solution RxNorm: 948245 1Milliliter 04/04/2018 No longer Active cyanocobalamin (vit B-12) 1,000 mcg/mL injection solution RxNorm: 395993 1Milliliter 03/05/2018 No longer Active cyanocobalamin (vit B-12) 1,000 mcg/mL injection solution RxNorm: 838894 1Milliliter 01/30/2018 No longer Active cyanocobalamin (vit B-12) 1,000 mcg/mL injection solution RxNorm: 002626 1Milliliter 01/01/2018 No longer Active cyanocobalamin (vit B-12) 1,000 mcg/mL injection solution RxNorm: 647358 1Milliliter 11/28/2017 No longer Active cyanocobalamin (vit B-12) 1,000 mcg/mL injection solution RxNorm: 823866 1Milliliter 10/24/2017 No longer Active cyanocobalamin (vit B-12) 1,000 mcg/mL injection solution RxNorm: 403139 1Milliliter 09/26/2017 No longer Active cyanocobalamin (vit B-12) 1,000 mcg/mL injection solution RxNorm: 719198 1Milliliter 08/10/2017 No longer Active cyanocobalamin (vit B-12) 1,000 mcg/mL injection solution RxNorm: 224723 1Milliliter 07/18/2017 No longer Active cyanocobalamin (vit B-12) 1,000 mcg/mL injection solution RxNorm: 297980 1Milliliter 05/16/2017 No longer Active cyanocobalamin (vit B-12) 1,000 mcg/mL injection solution RxNorm: 934523 1Milliliter 03/14/2017 No longer Active Kenalog 40 mg/mL suspension for injection RxNorm: 3108773 1Milliliter 01/12/2017 No longer Active ceftriaxone 500 mg solution for injection RxNorm: 9830494 1Milliliter 01/12/2017 No longer Active cyanocobalamin (vit B-12) 1,000 mcg/mL injection solution RxNorm: 656311 1Milliliter 01/12/2017 No longer Active cyanocobalamin (vit B-12) 1,000 mcg/mL injection solution RxNorm: 370340 1Milliliter 10/27/2016 No longer Active cyanocobalamin (vit B-12) 1,000 mcg/mL injection solution RxNorm: 477406 Milliliter 07/27/2016 No longer Active cyanocobalamin (vit B-12) 1,000 mcg/mL injection solution RxNorm: 746114 1Milliliter 04/26/2016 No longer Active Immunizations Vaccine Codes Date Status Influenza CVX: 141 05/31/2018 completed Pneumococcal (Adult) CVX: 133 12/12/2016 completed Assessments Condition Codes Effective Dates 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-10: D51.0 ICD-9: 281.0 03/26/2019 Sebaceous cyst ICD-10: L72.3 ICD-9: 706.2 01/08/2019 Essential (primary) hypertension ICD-10: I10 ICD-9: 401.1 [...] Code Item Item Code Result Date B12 Krf547 B12 453.00 pg/ml 11/15/2018 Comp Metabolic Fqa340 NA 139 mEq/L 11/15/2018 Comp Metabolic Sxw584 K 4.5 mEq/L 11/15/2018 Comp Metabolic Gnj032 CL 105 mEq/L 11/15/2018 Comp Metabolic Brn896 CO2 28.0 mEq/L 11/15/2018 Comp Metabolic Umn211 ANION GAP 11 11/15/2018 Comp Metabolic Jcn917 GLUCOSE 96 mg/dL 11/15/2018 Comp Metabolic Wyh955 Creat 1.1 mg/dL 11/15/2018 Comp Metabolic Rtc376 eGFR 68 ml/min/1.73m2 11/15/2018 Comp Metabolic Rgn852 BUN 18 mg/dL 11/15/2018 Comp Metabolic Mfp183 B/C Ratio 16.5 Ratio 11/15/2018 Comp Metabolic Jkk123 CALCIUM 9.3 mg/dL 11/15/2018 Comp Metabolic Jfr740 ALK PHOS 72 U/L 11/15/2018 Comp Metabolic Hnu591 AST(SGOT) 21 U/L 11/15/2018 Comp Metabolic Oxn604 ALT(SGPT) 13 U/L 11/15/2018 Comp Metabolic Tar979 BILI T 0.8 mg/dL 11/15/2018 Comp Metabolic Wzz253 ALBUMIN 3.9 g/dL 11/15/2018 Comp Metabolic Llf480 TPRO 6.5 g/dL 11/15/2018 Comp Metabolic Fng234 GLOB 2.6 g/dL 11/15/2018 Comp Metabolic Whk185 A/G Ratio 1.5 Ratio 11/15/2018 Comp Metabolic Bop919 Osmo 279 mOsmo 11/15/2018 Tsh Ord6 TSH [...] 33.1 pg 11/15/2018 Cbc With Differential Ord2 Drew% 12.6 % 11/15/2018 Cbc With Differential Ord2 [...] 3.56 K/ul 11/15/2018 Cbc With Differential Ord2 Drew ABS# 1.2 K/ul 11/15/2018 Cbc With Differential [...] 32.9 pg 11/28/2017 Cbc With Differential Ord2 Drew% 12.6 % 11/28/2017 Cbc With Differential Ord2 [...] 2.87 K/ul 11/28/2017 Cbc With Differential Ord2 Drew ABS# 1.1 K/ul 11/28/2017 Cbc With Differential Ord2 Eos ABS# 0.3 K/ul 11/28/2017 Cbc With Differential Ord2 Baso ABS# 0.0 K/ul 11/28/2017 B12 Iaf520 B12 >1500.00 pg/ml 11/28/2017 Comp Metabolic Kmx003 NA 139 mEq/L 11/28/2017 Comp Metabolic Unt924 K 5.2 mEq/L 11/28/2017 Comp Metabolic Ruu921 CL 106 mEq/L 11/28/2017 Comp Metabolic Nqp889 CO2 28.0 mEq/L 11/28/2017 Comp Metabolic Mfk780 ANION GAP 10 11/28/2017 Comp Metabolic Rta778 GLUCOSE 89 mg/dL 11/28/2017 Comp Metabolic Vwq730 Creat 1.1 mg/dL 11/28/2017 Comp Metabolic Lvn366 eGFR 66 ml/min/1.73m2 11/28/2017 Comp Metabolic Dvt736 BUN 18 mg/dL 11/28/2017 Comp Metabolic Auc159 B/C Ratio 16.1 Ratio 11/28/2017 Comp Metabolic Svj447 CALCIUM 9.2 mg/dL 11/28/2017 Comp Metabolic Glf931 ALK PHOS 89 U/L 11/28/2017 Comp Metabolic Kas978 AST(SGOT) 22 U/L 11/28/2017 Comp Metabolic Anm889 ALT(SGPT) 15 U/L 11/28/2017 Comp Metabolic Eoy396 BILI T 0.6 mg/dL 11/28/2017 Comp Metabolic Swk163 ALBUMIN 3.9 g/dL 11/28/2017 Comp Metabolic Dpq200 TPRO 6.5 g/dL 11/28/2017 Comp Metabolic Frv681 GLOB 2.6 g/dL 11/28/2017 Comp Metabolic Lpd350 A/G Ratio 1.5 Ratio 11/28/2017 Comp Metabolic Tzr935 Osmo 279 mOsmo 11/28/2017 Ferritin Ord22 FERRITIN [...] 33.7 pg 07/18/2017 Cbc With Differential Ord2 Drew% 12.3 % 07/18/2017 Cbc With Differential Ord2 [...] 2.90 K/ul 07/18/2017 Cbc With Differential Ord2 Drew ABS# 1.1 K/ul 07/18/2017 Cbc With Differential Ord2 Eos ABS# 0.2 K/ul 07/18/2017 Cbc With Differential Ord2 Baso ABS# 0.0 K/ul 07/18/2017 Comp Metabolic Rph067 NA 140 mEq/L 07/18/2017 Comp Metabolic Mfy855 K 4.6 mEq/L 07/18/2017 Comp Metabolic Guc112 CL 105 mEq/L 07/18/2017 Comp Metabolic Wlh441 CO2 29.0 mEq/L 07/18/2017 Comp Metabolic Fet956 ANION GAP 11 07/18/2017 Comp Metabolic Uvw449 GLUCOSE 96 mg/dL 07/18/2017 Comp Metabolic Cni214 Creat 1.0 mg/dL 07/18/2017 Comp Metabolic Cdl906 eGFR 73 ml/min/1.73m2 07/18/2017 Comp Metabolic Ntb802 BUN 12 mg/dL 07/18/2017 Comp Metabolic Koj078 B/C Ratio 11.7 Ratio 07/18/2017 Comp Metabolic Vzc462 CALCIUM 9.2 mg/dL 07/18/2017 Comp Metabolic Dax210 ALK PHOS 74 U/L 07/18/2017 Comp Metabolic Cui334 AST(SGOT) 29 U/L 07/18/2017 Comp Metabolic Mfp983 ALT(SGPT) 16 U/L 07/18/2017 Comp Metabolic Gvo214 BILI T 0.7 mg/dL 07/18/2017 Comp Metabolic Uah850 ALBUMIN 3.7 g/dL 07/18/2017 Comp Metabolic Kpa775 TPRO 6.5 g/dL 07/18/2017 Comp Metabolic Swe103 GLOB 2.8 g/dL 07/18/2017 Comp Metabolic Pni242 A/G Ratio 1.3 Ratio 07/18/2017 Comp Metabolic Vfe533 Osmo 279 mOsmo 07/18/2017 Iron Ord72 Iron 114 ug/dl 07/18/2017 B12 Xez749 B12 233.00 pg/ml 07/18/2017 Tsh Ord6 hTSH [...] 33.3 pg 12/13/2016 Cbc With Differential Ord2 Drew% 17.9 % 12/13/2016 Cbc With Differential Ord2 [...] 2.71 K/ul 12/13/2016 Cbc With Differential Ord2 Drew ABS# 1.7 K/ul 12/13/2016 Cbc With Differential Ord2 Eos ABS# 0.3 K/ul 12/13/2016 Cbc With Differential Ord2 Baso ABS# 0.0 K/ul 12/13/2016 Comp Metabolic Ipu937 NA 136 mEq/L 12/13/2016 Comp Metabolic Lgy164 K 4.7 mEq/L 12/13/2016 Comp Metabolic Iyq433 CL 102 mEq/L 12/13/2016 Comp Metabolic Vey816 CO2 26.0 mEq/L 12/13/2016 Comp Metabolic Ohm856 ANION GAP 13 12/13/2016 Comp Metabolic Vet536 GLUCOSE 87 mg/dL 12/13/2016 Comp Metabolic Pit017 Creat 0.9 mg/dL 12/13/2016 Comp Metabolic Ntm942 eGFR 83 ml/min/1.73m2 12/13/2016 Comp Metabolic Mbh452 BUN 17 mg/dL 12/13/2016 Comp Metabolic Lhv434 B/C Ratio 18.3 Ratio 12/13/2016 Comp Metabolic Gmd674 CALCIUM 9.1 mg/dL 12/13/2016 Comp Metabolic Dzc336 ALK PHOS 90 U/L 12/13/2016 Comp Metabolic Xua545 AST(SGOT) 22 U/L 12/13/2016 Comp Metabolic Mwr059 ALT(SGPT) 15 U/L 12/13/2016 Comp Metabolic Zdr985 BILI T 0.8 mg/dL 12/13/2016 Comp Metabolic Xrz956 ALBUMIN 3.6 g/dL 12/13/2016 Comp Metabolic Dje181 TPRO 6.4 g/dL 12/13/2016 Comp Metabolic Wpg838 GLOB 2.9 g/dL 12/13/2016 Comp Metabolic Ewx321 A/G Ratio 1.2 Ratio 12/13/2016 Comp Metabolic Txe275 Osmo 273 mOsmo 12/13/2016 Lipid Ord30 CHOL 182 mg/dL 12/13/2016 Lipid Ord30 HDL 64.0 mg/dl 12/13/2016 Lipid Ord30 TRIG 62 mg/dL 12/13/2016 Lipid Ord30 LDL 106 mg/dL 12/13/2016 Lipid Ord30 C/HDL 2.8 Ratio 12/13/2016 Ferritin Ord22 FERRITIN 434.7 ng/mL 12/13/2016 B12 Quw891 B12 247.00 pg/ml 12/13/2016 Tibc Ord40 Iron [...] 33.7 pg 04/27/2016 Cbc With Differential Ord2 Drew% 13.7 % 04/27/2016 Cbc With Differential Ord2 [...] 3.22 K/ul 04/27/2016 Cbc With Differential Ord2 Drew ABS# 1.2 K/ul 04/27/2016 Cbc With Differential Ord2 Eos ABS# 0.3 K/ul 04/27/2016 Cbc With Differential Ord2 Baso ABS# 0.0 K/ul 04/27/2016 Comp Metabolic Djq837 NA 138 mEq/L 04/27/2016 Comp Metabolic Vtq763 K 4.3 mEq/L 04/27/2016 Comp Metabolic Sgl259 CL 104 mEq/L 04/27/2016 Comp Metabolic Uap149 CO2 30.0 mEq/L 04/27/2016 Comp Metabolic Apa450 ANION GAP 8 04/27/2016 Comp Metabolic Jpu252 GLUCOSE 87 mg/dL 04/27/2016 Comp Metabolic Vto635 Creat 0.9 mg/dL 04/27/2016 Comp Metabolic Myf617 eGFR 82 ml/min/1.73m2 04/27/2016 Comp Metabolic Lur920 BUN 13 mg/dL 04/27/2016 Comp Metabolic Wgv886 B/C Ratio 13.8 Ratio 04/27/2016 Comp Metabolic Lvu113 CALCIUM 9.0 mg/dL 04/27/2016 Comp Metabolic Vyx460 ALK PHOS 62 U/L 04/27/2016 Comp Metabolic Imf017 AST(SGOT) 24 U/L 04/27/2016 Comp Metabolic Jxg692 ALT(SGPT) 15 U/L 04/27/2016 Comp Metabolic Skd903 BILI T 0.7 mg/dL 04/27/2016 Comp Metabolic Mfu702 ALBUMIN 3.6 g/dL 04/27/2016 Comp Metabolic Brr202 TPRO 6.1 g/dL 04/27/2016 Comp Metabolic Ecd705 GLOB 2.5 g/dL 04/27/2016 Comp Metabolic Wfy287 A/G Ratio 1.4 Ratio 04/27/2016 Comp Metabolic Rtf751 Osmo 275 mOsmo 04/27/2016 B12 Tzv957 B12 >1500.00 pg/ml 04/27/2016 Iron Ord72 Iron [...] Procedure Codes Date THER/PROPH/DIAG INJ SC/IM CPT-4: 21533 03/26/2019 VITAMIN B12 INJECTION CPT- 4: J3420 03/26/2019 VITAMIN B12 INJECTION CPT- 4: J3420 02/25/2019 THER/PROPH/DIAG INJ SC/IM CPT-4: 66929 02/25/2019 THER/PROPH/DIAG INJ SC/IM CPT-4: 89550 01/25/2019 VITAMIN B12 INJECTION CPT- 4: J3420 01/25/2019 THER/PROPH/DIAG INJ SC/IM CPT-4: 76304 12/27/2018 VITAMIN B12 INJECTION CPT- 4: J3420 12/27/2018 THER/PROPH/DIAG INJ SC/IM CPT-4: 92538 11/29/2018 VITAMIN B12 INJECTION CPT- 4: J3420 11/29/2018 THER/PROPH/DIAG INJ SC/IM CPT-4: 04199 10/29/2018 VITAMIN B12 INJECTION CPT- 4: J3420 10/29/2018 THER/PROPH/DIAG INJ SC/IM CPT-4: 92807 09/28/2018 VITAMIN B12 INJECTION CPT- 4: J3420 09/28/2018 THER/PROPH/DIAG INJ SC/IM CPT-4: 85593 08/30/2018 VITAMIN B12 INJECTION CPT- 4: J3420 08/30/2018 VITAMIN B12 INJECTION CPT- 4: J3420 07/31/2018 THER/PROPH/DIAG INJ SC/IM CPT-4: 64367 07/31/2018 THER/PROPH/DIAG INJ SC/IM CPT-4: 63819 07/02/2018 VITAMIN B12 INJECTION CPT- 4: J3420 07/02/2018 THER/PROPH/DIAG INJ SC/IM CPT-4: 72153 05/31/2018 ADMIN INFLUENZA VIRUS VAC CPT-4: G0008 05/31/2018 VITAMIN B12 INJECTION CPT- 4: J3420 05/31/2018 FLU VACC PRSV FREE INC ANTIG Formatting Model/CDA Sections, Assigned to/Mary Grace Rosado CPT-4: 41057Cdjosde 05/31/2018 VITAMIN B12 INJECTION CPT- 4: J3420 05/03/2018 THER/PROPH/DIAG INJ SC/IM CPT-4: 34133 05/03/2018 THER/PROPH/DIAG INJ SC/IM CPT-4: 21444 04/04/2018 VITAMIN B12 INJECTION CPT- 4: J3420 04/04/2018 THER/PROPH/DIAG INJ SC/IM CPT-4: 67314 03/05/2018 VITAMIN B12 INJECTION CPT- 4: J3420 03/05/2018 VITAMIN B12 INJECTION CPT- 4: J3420 01/30/2018 THER/PROPH/DIAG INJ SC/IM CPT-4: 61448 01/30/2018 THER/PROPH/DIAG INJ SC/IM CPT-4: 30621 01/01/2018 VITAMIN B12 INJECTION CPT- 4: J3420 01/01/2018 PPPS, SUBSEQ VISIT CPT- 4: G0439 12/18/2017 THER/PROPH/DIAG INJ SC/IM CPT-4: 82524 11/28/2017 VITAMIN B12 INJECTION CPT- 4: J3420 11/28/2017 THER/PROPH/DIAG INJ SC/IM CPT-4: 52641 10/24/2017 VITAMIN B12 INJECTION CPT- 4: J3420 10/24/2017 THER/PROPH/DIAG INJ SC/IM CPT-4: 11625 09/26/2017 VITAMIN B12 INJECTION CPT- 4: J3420 09/26/2017 THER/PROPH/DIAG INJ SC/IM CPT-4: 05852 08/10/2017 VITAMIN B12 INJECTION CPT- 4: J3420 08/10/2017 THER/PROPH/DIAG INJ SC/IM CPT-4: 44548 07/18/2017 VITAMIN B12 INJECTION CPT- 4: J3420 07/18/2017 THER/PROPH/DIAG INJ SC/IM CPT-4: 89788 05/16/2017 VITAMIN B12 INJECTION CPT- 4: J3420 05/16/2017 THER/PROPH/DIAG INJ SC/IM CPT-4: 16209 03/14/2017 VITAMIN B12 INJECTION CPT- 4: J3420 03/14/2017 TRIAMCINOLONE ACET INJ NOS CPT-4: J3301 01/12/2017 ROCEPHIN, PER 250 MG CPT- 4: J0696 01/12/2017 VITAMIN B12 INJECTION CPT- 4: J3420 01/12/2017 THER/PROPH/DIAG INJ SC/IM CPT-4: 67799 01/12/2017 PPPS, SUBSEQ VISIT CPT- 4: G0439 12/12/2016 PNEUMOCOCCAL VACC [address]: 10796993 CPT-4: 32648 12/12/2016 ADMIN PNEUMOCOCCAL VACCINE SNOMED CT: 44165342 CPT-4: G0009 12/12/2016 THER/PROPH/DIAG INJ SC/IM CPT-4: 17227 10/27/2016 VITAMIN B12 INJECTION CPT- 4: J3420 10/27/2016 THER/PROPH/DIAG INJ SC/IM CPT-4: 53773 07/27/2016 VITAMIN B12 INJECTION CPT- 4: J3420 07/27/2016 THER/PROPH/DIAG INJ SC/IM CPT-4: 80282 04/26/2016 VITAMIN B12 INJECTION CPT- 4: [id number] 04/26/2016 Vital Signs Date Vital 01/08/2019 Blood Pressure 1: 138/82 Code: 8480-6 BMI: 26.0 Code: 64859-4 Heart Rate 1: 66 bpm Height: 5'7" SpO2: 97% Weight: 166 lbs 11/19/2018 Blood Pressure 1: 128/76 Code: 8480-6 BMI: 25.8 Code: 69194-7 Heart Rate 1: 76 bpm Height: 5'7" SpO2: 98% Weight: 165 lbs 08/15/2018 Blood Pressure 1: 144/66 Code: 8480-6 BMI: 25.1 Code: 71918-9 Heart Rate 1: 75 bpm Height: 5'7" SpO2: 98% Weight: 160 lbs 05/23/2018 Blood Pressure 1: 158/64 Code: 8480-6 BMI: 24.7 Code: 81883-6 Heart Rate 1: 76 bpm Height: 5'7" SpO2: 96% Temperature: 36.7 (C) / 98.1 (F) Weight: 158 lbs 05/03/2018 Blood Pressure 1: 122/72 Code: 8480-6 BMI: 25.1 Code: 28477-9 Heart Rate 1: 74 bpm Height: 5'7" SpO2: 97% Weight: 160 lbs 01/31/2018 Blood Pressure 1: 137/77 Code: 8480-6 Blood Pressure 2: 138/68 Code: 8480-6 Heart Rate 1: 67 bpm SpO2: 98% 01/30/2018 Blood Pressure 1: 138/66 Code: 8480-6 BMI: 25.1 Code: 23030-6 Heart Rate 1: 76 bpm Height: 5'7" SpO2: 94% Weight: 160 lbs 12/18/2017 Blood Pressure 1: 152/88 Code: 8480-6 BMI: 25.8 Code: 46159-0 Heart Rate 1: 68 bpm Height: 5'7" SpO2: 96% Weight: 165 lbs 11/28/2017 Blood Pressure 1: 150/76 Code: 8480-6 BMI: 25.2 Code: 79110-6 Heart Rate 1: 78 bpm Height: 5'7" SpO2: 98% Weight: 161 lbs 10/10/2017 Blood Pressure 1: 156/76 Code: 8480-6 BMI: 24.7 Code: 69131-7 Heart Rate 1: 71 bpm Height: 5'7" SpO2: 98% Weight: 158 lbs 09/26/2017 Blood Pressure 1: 162/82 Code: 8480-6 BMI: 24.7 Code: 70718-0 Heart Rate 1: 69 bpm Height: 5'7" SpO2: 99% Weight: 158 lbs 08/16/2017 Blood Pressure 1: 154/82 Code: 8480-6 BMI: 24.1 Code: 79236-9 Heart Rate 1: 58 bpm Height: 5'7" SpO2: 96% Weight: 154 lbs 07/18/2017 Blood Pressure 1: 152/88 Code: 8480-6 BMI: 25.2 Code: 08033-6 Heart Rate 1: 72 bpm Height: 5'7" SpO2: 98% Weight: 161 lbs 05/16/2017 Blood Pressure 1: 136/78 Code: 8480-6 BMI: 24.8 Code: 44052-1 Heart Rate 1: 71 bpm Height: 5'7" SpO2: 96% Weight: 158 lbs 8 oz 03/14/2017 Blood Pressure 1: 142/74 Code: 8480-6 BMI: 23.8 Code: 08017-1 Heart Rate 1: 69 bpm Height: 5'7" SpO2: 94% Weight: 152 lbs 01/12/2017 Blood Pressure 1: 156/90 Code: 8480-6 BMI: 23.4 Code: 67910-1 Heart Rate 1: 90 bpm Height: 5'7" SpO2: 97% Temperature: 37.4 (C) / 99.3 (F) Weight: 149 lbs 8 oz 12/12/2016 Blood Pressure 1: 140/78 Code: 8480-6 BMI: 24.3 Code: 30930-8 Heart Rate 1: 73 bpm Height: 5'7" SpO2: 96% Waist Measure (cm): 90 cm Weight: 155 lbs 12/08/2016 Blood Pressure 1: 148/84 Code: 8480-6 BMI: 24.3 Code: 82507-4 Heart Rate 1: 80 bpm Height: 5'7" SpO2: 96% Weight: 155 lbs 11/03/2016 Blood Pressure 1: 156/84 Code: 8480-6 Blood Pressure 2: 155/94 Code: 8480-6 BMI: 24.3 Code: 69708-0 Heart Rate 1: 81 bpm Height: 5'7" SpO2: 98% Weight: 155 lbs 10/06/2016 Blood Pressure 1: 175/95 Code: 8480-6 Heart Rate 1: 77 bpm Respiratory Rate: 16 bpm SpO2: 98% Temperature: 36.4 (C) / 97.5 (F) Weight: 157 lbs 09/06/2016 Blood Pressure 1: 136/80 Code: 8480-6 BMI: 24.1 Code: 72441-1 Heart Rate 1: 82 bpm Height: 5'8" SpO2: 97% Weight: 156 lbs 08/23/2016 Blood Pressure 1: 160/80 Code: 8480-6 BMI: 24.4 Code: 91126-3 Heart Rate 1: 88 bpm Height: 5'8" SpO2: 95% Weight: 158 lbs 04/26/2016 Blood Pressure 1: 156/74 Code: 8480-6 BMI: 24.5 Code: 01725-7 Heart Rate 1: 70 bpm Height: 5'8" [...] Encounters Encounter Performer Location Codes Date () 00152 EST. PATIENT, LEVEL III Diagnosis: Sebaceous cyst[ICD10: L72.3] Ana Paris MD, [facility] CPT-4: 55478 01/08/2019 ([id number]) 76651 EST. PATIENT, LEVEL IV Diagnosis: Essential (primary) hypertension[ICD10: I10] Diagnosis: Chronic pain syndrome[ICD10: G89.4] Diagnosis: Epigastric pain[ICD10: R10.13] Andree Paris MD, [facility] CPT-4: 47083 11/19/2018 ([id number]) 43708 EST. PATIENT, LEVEL III Diagnosis: Essential (primary) hypertension[ICD10: I10] Andree Paris MD, [facility] CPT-4: 64847 08/15/2018 62842 EST. PATIENT, LEVEL III Diagnosis: Dysphagia, pharyngoesophageal phase[ICD10: R13.14] Teresa Paris MD, [facility] CPT-4: 56097 05/23/2018 ([id number]) 62547 EST. PATIENT, LEVEL IV Diagnosis: Essential (primary) hypertension[ICD10: I10] Diagnosis: Chronic pain syndrome[ICD10: G89.4] Diagnosis: Vitamin B12 deficiency anemia due to intrinsic factor deficiency[ICD10: D51.0] Diagnosis: Other iron deficiency anemias[ICD10: D50.8] Diagnosis: Slow transit constipation[ICD10: K59.01] Andree Paris MD, [facility] CPT-4: 63168 05/03/2018 ([id number]) Miscellaneous no charge Diagnosis: Essential (primary) hypertension[ICD10: I10] Teresa Paris MD, [facility] CPT-4: 34388 01/31/2018 ([id number]) 75077 EST. PATIENT, LEVEL IV Diagnosis: Essential (primary) hypertension[ICD10: I10] Diagnosis: Chronic pain syndrome[ICD10: G89.4] Andree Paris MD, [facility] CPT- 4: 03908 01/30/2018 ([id number]) 50470 EST. PATIENT, LEVEL IV Diagnosis: Essential (primary) hypertension[ICD10: I10] Diagnosis: Chronic pain syndrome[ICD10: G89.4] Diagnosis: Vitamin B12 deficiency anemia due to intrinsic factor deficiency[ICD10: D51.0] Diagnosis: Iron deficiency anemia, unspecified[ICD10: D50.9] Ana Paris MD, [facility] CPT-4: 02589 11/28/2017 38662 EST. PATIENT, LEVEL IV Diagnosis: Essential (primary) hypertension[ICD10: I10] Diagnosis: Slow transit constipation[ICD10: K59.01] Diagnosis: Chronic pain syndrome[ICD10: G89.4] Teresa Paris MD, [facility] CPT- 4: 36263 10/10/2017 16806 EST. PATIENT, LEVEL IV Diagnosis: Vitamin B12 deficiency anemia due to intrinsic factor deficiency[ICD10: D51.0] Diagnosis: Essential (primary) hypertension[ICD10: I10] Diagnosis: Chronic pain syndrome[ICD10: G89.4] Teresa Paris MD, [facility] CPT- 4: 21270 09/26/2017 00437 EST. PATIENT, LEVEL III Diagnosis: Dysphagia, pharyngoesophageal phase[ICD10: R13.14] Teresa Paris MD, [facility] CPT-4: 95561 08/16/2017 ([id number]) 91118 EST. PATIENT, LEVEL IV Diagnosis: Essential (primary) hypertension[ICD10: I10] Diagnosis: Chronic pain syndrome[ICD10: G89.4] Diagnosis: Vitamin B12 deficiency anemia due to intrinsic factor deficiency[ICD10: D51.0] Diagnosis: Iron deficiency anemia, unspecified[ICD10: D50.9] Diagnosis: Dysphagia, pharyngoesophageal phase[ICD10: R13.14] Ana Paris MD, [facility] CPT-4: 33603 07/18/2017 ([id number]) 73146 EST. PATIENT, LEVEL III Diagnosis: Essential (primary) hypertension[ICD10: I10] Diagnosis: Chronic pain syndrome[ICD10: G89.4] Diagnosis: Vitamin B12 deficiency anemia due to intrinsic factor deficiency[ICD10: D51.0] Ana Paris MD, [facility] CPT-4: 67356 05/16/2017 ([id number]) 33433 EST. PATIENT, LEVEL III Diagnosis: Essential (primary) hypertension[ICD10: I10] Diagnosis: Chronic pain syndrome[ICD10: G89.4] Diagnosis: Vitamin B12 deficiency anemia due to intrinsic factor deficiency[ICD10: D51.0] Ana Paris MD, [facility] CPT-4: 38756 03/14/2017 ([id number]) 20027 EST. PATIENT, LEVEL III Diagnosis: Cough[ICD10: R05] Diagnosis: Acute bronchitis, unspecified[ICD10: J20.9] Diagnosis: Chronic pain syndrome[ICD10: G89.4] Diagnosis: Vitamin B12 deficiency anemia due to intrinsic factor deficiency[ICD10: D51.0] Ana Paris MD, [facility] CPT-4: 15504 01/12/2017 ([id number]) 10727 EST. PATIENT, LEVEL III Diagnosis: Essential (primary) hypertension[ICD10: I10] Diagnosis: Chronic pain syndrome[ICD10: G89.4] Ana Paris MD, [facility] CPT-4: 99350 12/08/2016 ([id number]) 10607 EST. PATIENT, LEVEL III Diagnosis: Essential (primary) hypertension[ICD10: I10] Ana Paris MD, [facility] CPT-4: 22810 11/03/2016 ([id number]) 92755 EST. PATIENT, LEVEL III Diagnosis: Essential (primary) hypertension[ICD10: I10] Ana Paris MD, [facility] CPT-4: 44620 10/06/2016 ([id number]) 49974 EST. PATIENT, LEVEL III Diagnosis: Essential (primary) hypertension[ICD10: I10] Ana Paris MD, [facility] CPT-4: 60964 09/06/2016 ([id number]) 03885 EST. PATIENT, LEVEL III Diagnosis: Essential (primary) hypertension[ICD10: I10] [facility] CPT-4: 85529 08/23/2016 ([id number]) OFFICE VISIT, NEW - LEVEL 4 Diagnosis: Noninfective gastroenteritis and colitis, unspecified[ICD10: K52.9] Diagnosis: Vitamin B12 deficiency anemia due to intrinsic factor deficiency[ICD10: D51.0] Diagnosis: Iron deficiency anemia, unspecified[ICD10: D50.9] Diagnosis: Chalazion left upper eyelid[ICD10: H00.14] Diagnosis: Elevated blood-pressure reading, without diagnosis of hypertension[ICD10: R03.0] [facility] CPT-4: 57611 04/26/2016 Plan of Care Planned Activity Notes Codes Status Date Patient Education: Patient Medication Summary Completed 03/26/2019 Appointment: Injection 02/25/2019 Patient Education: Patient Medication Summary Completed 02/25/2019 Appointment: Injection 01/25/2019 Patient Education: Patient Medication Summary Completed 01/25/2019 Visit Plan: Sebaceous cyst -left lower back -rx for antibiotic provided for acute infection and instructed on use -return to clinic if not improving or if any worse- refer to Dr Parish for surgical removal of cyst- patient verbalized understanding of plan. 01/08/2019 Appointment: Ana Pedraza [facility]Ptel: [phone] ([facility] min) [facility] 01/08/2019 Patient Education: Patient Medication Summary Completed [...] over-medication. 11/19/2018 App[facility]ment[phone] [place] (15 min) Moderate 11/19/2018 Patient Education: Patient [...] amlodipine 08/15/2018 Appointment: [phone] (15 min) Moderate 08/15/2018 Patient Education: Patient [...] treatment plan. 05/23/2018 Appointment: Teresa Bard[facility]Ptel[facility] [phone] [facility] [place] (15 min) Moderate 05/23/2018 Patient Education: Patient [...] management. 05/03/2018 Appointment: [phone] (15 min) Moderate 05/03/2018 Patient Education: Patient [...] over-medication. 01/30/2018 App[facility]ment: [phone] (15 min) Moderate 01/30/2018 Patient Education: Patient [...] call for acute concerns. 12/18/2017 Appointment: Ana Pderaza [facility]el[facility] [phone] [phone] [facility] - Annual Wellness Visit 12/18/2017 [...] 11/28/2017 Appointment: Ana Pedraza [facility]Ptel[facility] [phone] [phone] (30 min) [facility] 11/28/2017 Patient Education: Patient Medication [...] 10/10/2017 Appointment: Teresa Bardales [facility]Ptel: [phone] [phone] (30 min) Complex 10/10/2017 Patient Education: Patient [...] over-medication. 09/26/2017 Appointment: Teresa Bardales [facility]Ptel: [phone] [phone] (30 min) Complex 09/26/2017 Patient Education: Patient Medication Summary Completed 09/26/2017 Appointment: Teresa Bardales [facility]el[facility] [phone] [phone] (30 min) Complex 09/19/2017 Referral: External, Ordering Provider Referral Appointment Confirmed 08/17/2017 Visit Plan: Dysphagia - worsening since yesterday - will refer to Dr. Harper for possible EGD - pt is to notify clinic if symptoms do not improve, if they worsen, or with any acute changes, questions, or concerns. 08/16/2017 Appointment: Teresa Bardales WPtel: [phone] [facility] (30 min) Complex 08/16/2017 Patient Education: Patient Medication Summary Completed 08/16/2017 Care Plan: Referral Order SNOMED-CT : [id number] Pending 08/16/2017 Appointment: Injection 08/10/2017 Patient Education: [...] first 07/18/2017 Appointment: Ana Pedraza WPtel: [phone] [phone] [place] (30 min) Complex 07/18/2017 Patient Education: [...] of over-medication. 05/16/2017 Appointment: Ana Pedraza WPtel: [address] [place] [address] (30 min) Complex 05/16/2017 Patient Education: Patient [...] of over-medication. 03/14/2017 Appointment: Ana Pedraza WPtel: [address] [place] [address] (30 min) Complex 03/14/2017 Patient Education: Patient [...] of over-medication. 01/12/2017 Appointment: Ana Pedraza WPtel: [address] [place] [address] (30 min) Complex 01/12/2017 Patient Education: Patient [...] care surrogate. 12/12/2016 Appointment: Ana Pedraza WPtel: [address] [place] [address] - Annual Wellness Visit 12/12/2016 Patient Education: [...] over-medication. 12/08/2016 Appointment: Ana Pedraza WPtel: [address] [place], [place] [phone] (30 min) Complex 12/08/2016 Patient Education: Patient [...] concerns. 11/03/2016 Appointment: Ana Pedraza WPtel: [phone] [phone] (30 min) Complex 11/03/2016 Patient Education: Patient [...] acute concerns. 10/06/2016 Appointment: Ana Pedraza WPtel: [phone] (30 min) Complex 10/06/2016 Patient Education: Patient [...] to call for acute concerns. 09/06/2016 Appointment: Aan Pedraza WPtel: [phone] [phone] (30 min) Complex 09/06/2016 Patient Education: Patient [...] acute concerns. 08/23/2016 Appointment: Ana Pedraza WPtel: [facility]5 [phone] (15 min) Moderate 08/23/2016 Patient Education: [...] gentamycin. 04/26/2016 Appointment: Andree Paris WPtel: [phone] [facility] New Patient 04/26/2016 Patient Education: Patient [...]
--- OUTSIDE RECORDS SUMMARY | 2019-04-03 13:58 | XMS REPORT | CCD ---
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 Name Role Phone PP Unavailable CCM Unavailable Summary Purpose Interface Exchange Insurance Providers Payer name Policy type / Coverage type Covered alliance party ID Effective Begin Date Effective End Date WPS Medicare Part B Medicare Part B [id number] Unknown Unknown FOR LIFE WPS Medicare Part B [id number] Unknown Unknown Family history Father Diagnosis Age At Onset No Known Diseases N/A Mother Diagnosis Age At Onset No Known Diseases N/A Social History Social History Element Codes Description Effective Dates Marital status Unknown 04/26/2016 Number of children Unknown 3 04/26/2016 Employment Unknown Retired 04/26/[address]: 2855991 Former smoker Quit 1968 04/26/[address]: 826803 Currently drinks alcohol 04/26/2016 Has the patient [...] morphine ER 30 mg tablet,extended release RxNorm: 588684 1 Tablet(s) PO daily 03/26/2019 04/24/2019 Active amlodipine 5 mg tablet RxNorm: 210262 1 Tablet(s) PO QPM 02/25/2019 01/20/2020 Active lisinopril 20 mg tablet RxNorm: 295247 1 Tablet(s) PO BID 02/25/2019 01/20/2020 Active morphine ER 30 mg tablet,extended release RxNorm: 046911 1 Tablet(s) PO daily 02/25/2019 03/25/2019 Inactive cyanocobalamin (vit B-12) 1,000 mcg/mL injection solution RxNorm: 343561 1 Milliliter(s) Inj 02/25/2019 02/25/2019 Inactive morphine ER 30 mg tablet,extended release RxNorm: 620282 1 Tablet(s) PO daily 01/25/2019 02/23/2019 Inactive cyanocobalamin (vit B-12) 1,000 mcg/mL injection solution RxNorm: 274190 Milliliter(s) Inj 01/25/2019 01/25/2019 Inactive doxycycline hyclate 100 mg tablet RxNorm: 2867203 1 Tablet(s) PO BID 01/08/2019 01/14/2019 Inactive cyanocobalamin (vit B-12) 1,000 mcg/mL injection solution RxNorm: 385410 Milliliter(s) Inj 12/27/2018 12/27/2018 Inactive morphine ER 30 mg tablet,extended release RxNorm: 229137 1 Tablet(s) PO daily 12/27/2018 01/24/2019 Inactive cyanocobalamin (vit B-12) 1,000 mcg/mL injection solution RxNorm: 360465 Milliliter(s) Inj 11/29/2018 11/29/2018 Inactive morphine ER 30 mg tablet,extended release RxNorm: 319675 1 Tablet(s) PO daily 10/29/2018 11/27/2018 Inactive cyanocobalamin (vit B-12) 1,000 mcg/mL injection solution RxNorm: 056637 Milliliter(s) Inj 10/29/2018 10/29/2018 Inactive cyanocobalamin (vit B-12) 1,000 mcg/mL injection solution RxNorm: 576604 Milliliter(s) Inj 09/28/2018 09/28/2018 Inactive morphine ER 30 mg tablet,extended release RxNorm: 306261 1 Tablet(s) PO daily 09/28/2018 10/27/2018 Inactive morphine ER 30 mg tablet,extended release RxNorm: 218966 1 Tablet(s) PO daily 08/30/2018 09/27/2018 Inactive cyanocobalamin (vit B-12) 1,000 mcg/mL injection solution RxNorm: 746945 Milliliter(s) Inj 08/30/2018 08/30/2018 Inactive cyanocobalamin (vit B-12) 1,000 mcg/mL injection solution RxNorm: 501162 Milliliter(s) Inj 07/31/2018 07/31/2018 Inactive morphine ER 30 mg tablet,extended release RxNorm: 439162 1 Tablet(s) PO daily 07/31/2018 08/29/2018 Inactive amlodipine 5 mg tablet RxNorm: 527997 1 Tablet(s) PO QPM 07/11/2018 01/06/2019 Inactive cyanocobalamin (vit B-12) 1,000 mcg/mL injection solution RxNorm: 578001 1 Milliliter(s) Inj 07/02/2018 07/02/2018 Inactive morphine ER 30 mg tablet,extended release RxNorm: 911493 1 Tablet(s) PO daily 07/02/2018 07/30/2018 Inactive morphine ER 30 mg tablet,extended release RxNorm: 514313 1 Tablet(s) PO daily 05/31/2018 06/29/2018 Inactive cyanocobalamin (vit B-12) 1,000 mcg/mL injection solution RxNorm: 343841 Milliliter(s) Inj 05/31/2018 05/31/2018 Inactive Protonix 40 mg tablet,delayed release RxNorm: 815309 1 Tablet(s) PO daily 05/23/2018 06/21/2018 Inactive Carafate 1 gram tablet RxNorm: 026762 1 Tablet(s) PO AC & HS as needed 05/23/2018 06/21/2018 Inactive cyanocobalamin (vit B-12) 1,000 mcg/mL injection solution RxNorm: 197300 1 Milliliter(s) Inj 05/03/2018 05/03/2018 Inactive morphine ER 30 mg tablet,extended release RxNorm: 705124 1 Tablet(s) PO daily 04/04/2018 05/03/2018 Inactive cyanocobalamin (vit B-12) 1,000 mcg/mL injection solution RxNorm: 918546 1 Milliliter(s) Inj 04/04/2018 04/04/2018 Inactive cyanocobalamin (vit B-12) 1,000 mcg/mL injection solution RxNorm: 225893 1 Milliliter(s) Inj 03/05/2018 03/05/2018 Inactive morphine ER 30 mg tablet,extended release RxNorm: 489577 1 Tablet(s) PO daily 03/05/2018 04/03/2018 Inactive cyanocobalamin (vit B-12) 1,000 mcg/mL injection solution RxNorm: 547112 1 Milliliter(s) Inj 01/30/2018 01/30/2018 Inactive cyanocobalamin (vit B-12) 1,000 mcg/mL injection solution RxNorm: 478449 1 Milliliter(s) Inj 01/01/2018 01/01/2018 Inactive morphine ER 30 mg tablet,extended release RxNorm: 012700 1 Tablet(s) PO daily 01/01/2018 01/30/2018 Inactive amlodipine 5 mg tablet RxNorm: 512667 1 Tablet(s) PO QPM 12/18/2017 06/15/2018 Inactive lisinopril 20 mg tablet RxNorm: 839364 1 Tablet(s) PO BID 12/18/2017 12/12/2018 Inactive cyanocobalamin (vit B-12) 1,000 mcg/mL injection solution RxNorm: 155432 1 Milliliter(s) Inj 11/28/2017 11/28/2017 Inactive morphine ER 30 mg tablet,extended release RxNorm: 324139 1 Tablet(s) PO daily 11/28/2017 12/27/2017 Inactive morphine ER 30 mg tablet,extended release RxNorm: 347867 1 Tablet(s) PO daily 11/09/2017 11/27/2017 Inactive cyanocobalamin (vit B-12) 1,000 mcg/mL injection solution RxNorm: 808510 1 Milliliter(s) Inj 10/24/2017 10/24/2017 Inactive morphine ER 30 mg tablet,extended release RxNorm: 009844 1 Tablet(s) PO daily 10/10/2017 11/08/2017 Inactive hydrochlorothiazide 25 mg tablet RxNorm: 200161 1 Tablet(s) PO daily 10/10/2017 11/08/2017 Inactive cyanocobalamin (vit B-12) 1,000 mcg/mL injection solution RxNorm: 033913 1 Milliliter(s) Inj 09/26/2017 09/26/2017 Inactive hydrochlorothiazide 12.5 mg tablet RxNorm: 419701 1 Tablet(s) PO daily 09/26/2017 10/25/2017 Inactive morphine ER 30 mg tablet,extended release RxNorm: 211746 1 Tablet(s) PO daily 09/12/2017 10/09/2017 Inactive cyanocobalamin (vit B-12) 1,000 mcg/mL injection solution RxNorm: 364765 1 Milliliter(s) Inj 08/10/2017 08/10/2017 Inactive morphine ER 30 mg tablet,extended release RxNorm: 704836 1 Tablet(s) PO daily 08/10/2017 09/08/2017 Inactive Vitamin B-12 1,000 mcg/mL injection solution RxNorm: 009441 1 Milliliter(s) Inj month 07/21/2017 No Stop Date Active B12 INJECTIONS MONTHLY cyanocobalamin (vit B-12) 1,000 mcg/mL injection solution RxNorm: 893991 1 Milliliter(s) Inj 07/18/2017 07/18/2017 Inactive morphine ER 30 mg tablet,extended release RxNorm: 865931 1 Tablet(s) PO daily 07/13/2017 08/09/2017 Inactive morphine ER 30 mg tablet,extended release RxNorm: 715461 1 Tablet(s) PO daily 06/15/2017 07/12/2017 Inactive cyanocobalamin (vit B-12) 1,000 mcg/mL injection solution RxNorm: 955996 1 Milliliter(s) Inj 05/16/2017 05/16/2017 Inactive morphine ER 30 mg tablet,extended release RxNorm: 436355 1 Tablet(s) PO daily 04/13/2017 05/12/2017 Inactive cyanocobalamin (vit B-12) 1,000 mcg/mL injection solution RxNorm: 383863 1 Milliliter(s) Inj 03/14/2017 03/14/2017 Inactive morphine ER 30 mg tablet,extended release RxNorm: 467933 1 Tablet(s) PO daily 03/14/2017 04/12/2017 Inactive morphine ER 30 mg tablet,extended release RxNorm: 606262 1 Tablet(s) PO daily 02/13/2017 03/13/2017 Inactive Kenalog 40 mg/mL suspension for injection RxNorm: 6557541 1 Milliliter(s) Inj 01/12/2017 01/12/2017 Inactive cyanocobalamin (vit B-12) 1,000 mcg/mL injection solution RxNorm: 684698 1 Milliliter(s) Inj 01/12/2017 01/12/2017 Inactive Zithromax Z-[place] 250 mg tablet RxNorm: 585637 1 Tablet(s) PO UD 01/12/2017 01/16/2017 Inactive ceftriaxone 500 mg solution for injection RxNorm: 7996882 1 Milliliter(s) Inj 01/12/2017 01/12/2017 Inactive Vitamin B-12 1,000 mcg/mL injection solution RxNorm: 930081 1 Milliliter(s) Inj EVERY OTHER MONTH 01/04/2017 07/20/2017 Inactive lisinopril 20 mg tablet RxNorm: 457539 1 Tablet(s) PO BID 01/02/2017 12/17/2017 Inactive lisinopril 20 mg tablet RxNorm: 712914 1 Tablet(s) PO BID 12/12/2016 01/01/2017 Inactive morphine ER 30 mg tablet,extended release RxNorm: 866040 1 Tablet(s) PO daily 12/08/2016 01/06/2017 Inactive lisinopril 20 mg tablet RxNorm: 538146 1 Tablet(s) PO BID 11/03/2016 12/11/2016 Inactive morphine ER 30 mg tablet,extended release RxNorm: 747775 1 Tablet(s) PO daily 11/03/2016 12/02/2016 Inactive cyanocobalamin (vit B-12) 1,000 mcg/mL injection solution RxNorm: 597806 1 Milliliter(s) Inj 10/27/2016 10/27/2016 Inactive lisinopril 10 mg tablet RxNorm: 940193 1 Tablet(s) PO BID 10/06/2016 11/02/2016 Inactive lisinopril 10 mg tablet RxNorm: 645225 1 Tablet(s) PO daily 09/06/2016 10/05/2016 Inactive morphine ER 30 mg tablet,extended release RxNorm: 373163 1 Tablet(s) PO daily 08/18/2016 09/16/2016 Inactive cyanocobalamin (vit B-12) 1,000 mcg/mL injection solution RxNorm: 138156 Milliliter(s) Inj 07/27/2016 07/27/2016 Inactive morphine ER 30 mg tablet,extended release RxNorm: 642843 1 Tablet(s) PO daily 07/21/2016 08/17/2016 Inactive morphine ER 30 mg tablet,extended release RxNorm: 782109 1 Tablet(s) PO daily 06/20/2016 07/19/2016 Inactive morphine ER 30 mg tablet,extended release RxNorm: 240304 1 Tablet(s) PO daily 05/20/2016 06/19/2016 Inactive cyanocobalamin (vit B-12) 1,000 mcg/mL injection solution RxNorm: 260703 1 Milliliter(s) Inj 04/26/2016 04/26/2016 Inactive gentamicin 0.3 % eye drops RxNorm: 167695 2 Drop(s) OPH Q4H 04/26/2016 05/02/2016 Inactive Vitamin B-12 1,000 mcg/mL injection solution RxNorm: 916482 1 Milliliter(s) Inj EVERY 3 MONTHS No Start Date 01/03/2017 Inactive Claritin 10 mg tablet RxNorm: 876681 1 Tablet(s) PO daily No Start Date 07/17/2017 Inactive Venofer intravenous RxNorm: 98402 intravenous No Start Date 08/14/2018 Inactive morphine ER 30 mg tablet,extended release RxNorm: 856908 1 Tablet(s) PO daily No Start Date 04/25/2016 Inactive Medication Administered Medication Codes Instructions Start Date Status cyanocobalamin (vit B-12) 1,000 mcg/mL injection solution RxNorm: 474478 1Milliliter 02/25/2019 No longer Active cyanocobalamin (vit B-12) 1,000 mcg/mL injection solution RxNorm: 336927 Milliliter 01/25/2019 No longer Active cyanocobalamin (vit B-12) 1,000 mcg/mL injection solution RxNorm: 987473 Milliliter 12/27/2018 No longer Active cyanocobalamin (vit B-12) 1,000 mcg/mL injection solution RxNorm: 178636 Milliliter 11/29/2018 No longer Active cyanocobalamin (vit B-12) 1,000 mcg/mL injection solution RxNorm: 631428 Milliliter 10/29/2018 No longer Active cyanocobalamin (vit B-12) 1,000 mcg/mL injection solution RxNorm: 924797 Milliliter 09/28/2018 No longer Active cyanocobalamin (vit B-12) 1,000 mcg/mL injection solution RxNorm: 468659 Milliliter 08/30/2018 No longer Active cyanocobalamin (vit B-12) 1,000 mcg/mL injection solution RxNorm: 876607 Milliliter 07/31/2018 No longer Active cyanocobalamin (vit B-12) 1,000 mcg/mL injection solution RxNorm: 269407 1Milliliter 07/02/2018 No longer Active cyanocobalamin (vit B-12) 1,000 mcg/mL injection solution RxNorm: 657997 Milliliter 05/31/2018 No longer Active cyanocobalamin (vit B-12) 1,000 mcg/mL injection solution RxNorm: 607996 1Milliliter 05/03/2018 No longer Active cyanocobalamin (vit B-12) 1,000 mcg/mL injection solution RxNorm: 541429 1Milliliter 04/04/2018 No longer Active cyanocobalamin (vit B-12) 1,000 mcg/mL injection solution RxNorm: 799604 1Milliliter 03/05/2018 No longer Active cyanocobalamin (vit B-12) 1,000 mcg/mL injection solution RxNorm: 251383 1Milliliter 01/30/2018 No longer Active cyanocobalamin (vit B-12) 1,000 mcg/mL injection solution RxNorm: 725790 1Milliliter 01/01/2018 No longer Active cyanocobalamin (vit B-12) 1,000 mcg/mL injection solution RxNorm: 384533 1Milliliter 11/28/2017 No longer Active cyanocobalamin (vit B-12) 1,000 mcg/mL injection solution RxNorm: 530267 1Milliliter 10/24/2017 No longer Active cyanocobalamin (vit B-12) 1,000 mcg/mL injection solution RxNorm: 347637 1Milliliter 09/26/2017 No longer Active cyanocobalamin (vit B-12) 1,000 mcg/mL injection solution RxNorm: 439356 1Milliliter 08/10/2017 No longer Active cyanocobalamin (vit B-12) 1,000 mcg/mL injection solution RxNorm: 085426 1Milliliter 07/18/2017 No longer Active cyanocobalamin (vit B-12) 1,000 mcg/mL injection solution RxNorm: 043119 1Milliliter 05/16/2017 No longer Active cyanocobalamin (vit B-12) 1,000 mcg/mL injection solution RxNorm: 119318 1Milliliter 03/14/2017 No longer Active Kenalog 40 mg/mL suspension for injection RxNorm: 9537347 1Milliliter 01/12/2017 No longer Active ceftriaxone 500 mg solution for injection RxNorm: 7555849 1Milliliter 01/12/2017 No longer Active cyanocobalamin (vit B-12) 1,000 mcg/mL injection solution RxNorm: 073998 1Milliliter 01/12/2017 No longer Active cyanocobalamin (vit B-12) 1,000 mcg/mL injection solution RxNorm: 381149 1Milliliter 10/27/2016 No longer Active cyanocobalamin (vit B-12) 1,000 mcg/mL injection solution RxNorm: 498637 Milliliter 07/27/2016 No longer Active cyanocobalamin (vit B-12) 1,000 mcg/mL injection solution RxNorm: 962076 1Milliliter 04/26/2016 No longer Active Immunizations Vaccine Codes Date Status Influenza CVX: 141 05/31/2018 completed Pneumococcal (Adult) CVX: 133 12/12/2016 completed Assessments Condition Codes Effective Dates 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-10: D51.0 ICD-9: 281.0 02/25/2019 Sebaceous cyst ICD-10: L72.3 ICD-9: 706.2 01/08/2019 [...] Code Item Item Code Result Date B12 Nqu869 B12 453.00 pg/ml 11/15/2018 Comp Metabolic Npb990 NA 139 mEq/L 11/15/2018 Comp Metabolic Lvk722 K 4.5 mEq/L 11/15/2018 Comp Metabolic Ywp046 CL 105 mEq/L 11/15/2018 Comp Metabolic Sxl512 CO2 28.0 mEq/L 11/15/2018 Comp Metabolic Crc786 ANION GAP 11 11/15/2018 Comp Metabolic Njj151 GLUCOSE 96 mg/dL 11/15/2018 Comp Metabolic Dax171 Creat 1.1 mg/dL 11/15/2018 Comp Metabolic Lly919 eGFR 68 ml/min/1.73m2 11/15/2018 Comp Metabolic Pqr408 BUN 18 mg/dL 11/15/2018 Comp Metabolic Cef720 B/C Ratio 16.5 Ratio 11/15/2018 Comp Metabolic Aqb203 CALCIUM 9.3 mg/dL 11/15/2018 Comp Metabolic Xkh670 ALK PHOS 72 U/L 11/15/2018 Comp Metabolic Cvs445 AST(SGOT) 21 U/L 11/15/2018 Comp Metabolic Znr086 ALT(SGPT) 13 U/L 11/15/2018 Comp Metabolic Bdx854 BILI T 0.8 mg/dL 11/15/2018 Comp Metabolic Adv903 ALBUMIN 3.9 g/dL 11/15/2018 Comp Metabolic Hkv688 TPRO 6.5 g/dL 11/15/2018 Comp Metabolic Guz480 GLOB 2.6 g/dL 11/15/2018 Comp Metabolic Bww181 A/G Ratio 1.5 Ratio 11/15/2018 Comp Metabolic Iuk296 Osmo 279 mOsmo 11/15/2018 Tsh Ord6 TSH [...] 33.1 pg 11/15/2018 Cbc With Differential Ord2 Hardee% 12.6 % 11/15/2018 Cbc With Differential Ord2 [...] 3.56 K/ul 11/15/2018 Cbc With Differential Ord2 Hardee ABS# 1.2 K/ul 11/15/2018 Cbc With Differential [...] 32.9 pg 11/28/2017 Cbc With Differential Ord2 Hardee% 12.6 % 11/28/2017 Cbc With Differential Ord2 [...] 2.87 K/ul 11/28/2017 Cbc With Differential Ord2 Hardee ABS# 1.1 K/ul 11/28/2017 Cbc With Differential Ord2 Eos ABS# 0.3 K/ul 11/28/2017 Cbc With Differential Ord2 Baso ABS# 0.0 K/ul 11/28/2017 B12 Fxm259 B12 >1500.00 pg/ml 11/28/2017 Comp Metabolic Ogv361 NA 139 mEq/L 11/28/2017 Comp Metabolic Izt188 K 5.2 mEq/L 11/28/2017 Comp Metabolic Idw920 CL 106 mEq/L 11/28/2017 Comp Metabolic Gax664 CO2 28.0 mEq/L 11/28/2017 Comp Metabolic Let836 ANION GAP 10 11/28/2017 Comp Metabolic Sye850 GLUCOSE 89 mg/dL 11/28/2017 Comp Metabolic Rfk700 Creat 1.1 mg/dL 11/28/2017 Comp Metabolic Cye847 eGFR 66 ml/min/1.73m2 11/28/2017 Comp Metabolic Mfu691 BUN 18 mg/dL 11/28/2017 Comp Metabolic Jir121 B/C Ratio 16.1 Ratio 11/28/2017 Comp Metabolic Czv665 CALCIUM 9.2 mg/dL 11/28/2017 Comp Metabolic Xlb980 ALK PHOS 89 U/L 11/28/2017 Comp Metabolic Lxt057 AST(SGOT) 22 U/L 11/28/2017 Comp Metabolic Kjn195 ALT(SGPT) 15 U/L 11/28/2017 Comp Metabolic Ohu741 BILI T 0.6 mg/dL 11/28/2017 Comp Metabolic Lrl260 ALBUMIN 3.9 g/dL 11/28/2017 Comp Metabolic Ywr454 TPRO 6.5 g/dL 11/28/2017 Comp Metabolic Llx031 GLOB 2.6 g/dL 11/28/2017 Comp Metabolic Wmy863 A/G Ratio 1.5 Ratio 11/28/2017 Comp Metabolic Vgy556 Osmo 279 mOsmo 11/28/2017 Ferritin Ord22 FERRITIN [...] 33.7 pg 07/18/2017 Cbc With Differential Ord2 Hardee% 12.3 % 07/18/2017 Cbc With Differential Ord2 [...] 2.90 K/ul 07/18/2017 Cbc With Differential Ord2 Hardee ABS# 1.1 K/ul 07/18/2017 Cbc With Differential Ord2 Eos ABS# 0.2 K/ul 07/18/2017 Cbc With Differential Ord2 Baso ABS# 0.0 K/ul 07/18/2017 Comp Metabolic Uai028 NA 140 mEq/L 07/18/2017 Comp Metabolic Nxh739 K 4.6 mEq/L 07/18/2017 Comp Metabolic Ehk136 CL 105 mEq/L 07/18/2017 Comp Metabolic Upj069 CO2 29.0 mEq/L 07/18/2017 Comp Metabolic Rct593 ANION GAP 11 07/18/2017 Comp Metabolic Kug987 GLUCOSE 96 mg/dL 07/18/2017 Comp Metabolic Jxa774 Creat 1.0 mg/dL 07/18/2017 Comp Metabolic Akm185 eGFR 73 ml/min/1.73m2 07/18/2017 Comp Metabolic Osn130 BUN 12 mg/dL 07/18/2017 Comp Metabolic Rgj824 B/C Ratio 11.7 Ratio 07/18/2017 Comp Metabolic Juj779 CALCIUM 9.2 mg/dL 07/18/2017 Comp Metabolic Zgz579 ALK PHOS 74 U/L 07/18/2017 Comp Metabolic Sly416 AST(SGOT) 29 U/L 07/18/2017 Comp Metabolic Irf193 ALT(SGPT) 16 U/L 07/18/2017 Comp Metabolic Drf888 BILI T 0.7 mg/dL 07/18/2017 Comp Metabolic Ppb219 ALBUMIN 3.7 g/dL 07/18/2017 Comp Metabolic Hlg290 TPRO 6.5 g/dL 07/18/2017 Comp Metabolic Ujp921 GLOB 2.8 g/dL 07/18/2017 Comp Metabolic Ilz938 A/G Ratio 1.3 Ratio 07/18/2017 Comp Metabolic Uup645 Osmo 279 mOsmo 07/18/2017 Iron Ord72 Iron 114 ug/dl 07/18/2017 B12 Nps977 B12 233.00 pg/ml 07/18/2017 Tsh Ord6 hTSH [...] 33.3 pg 12/13/2016 Cbc With Differential Ord2 Hardee% 17.9 % 12/13/2016 Cbc With Differential Ord2 [...] 2.71 K/ul 12/13/2016 Cbc With Differential Ord2 Hardee ABS# 1.7 K/ul 12/13/2016 Cbc With Differential Ord2 Eos ABS# 0.3 K/ul 12/13/2016 Cbc With Differential Ord2 Baso ABS# 0.0 K/ul 12/13/2016 Comp Metabolic Uut554 NA 136 mEq/L 12/13/2016 Comp Metabolic Pam933 K 4.7 mEq/L 12/13/2016 Comp Metabolic Iyj086 CL 102 mEq/L 12/13/2016 Comp Metabolic Rcx124 CO2 26.0 mEq/L 12/13/2016 Comp Metabolic Nqo894 ANION GAP 13 12/13/2016 Comp Metabolic Pak387 GLUCOSE 87 mg/dL 12/13/2016 Comp Metabolic Gmv649 Creat 0.9 mg/dL 12/13/2016 Comp Metabolic Hhw628 eGFR 83 ml/min/1.73m2 12/13/2016 Comp Metabolic Jsy896 BUN 17 mg/dL 12/13/2016 Comp Metabolic Quk310 B/C Ratio 18.3 Ratio 12/13/2016 Comp Metabolic Ckr862 CALCIUM 9.1 mg/dL 12/13/2016 Comp Metabolic Iok166 ALK PHOS 90 U/L 12/13/2016 Comp Metabolic Xqi730 AST(SGOT) 22 U/L 12/13/2016 Comp Metabolic Yln195 ALT(SGPT) 15 U/L 12/13/2016 Comp Metabolic Upu741 BILI T 0.8 mg/dL 12/13/2016 Comp Metabolic Xrz914 ALBUMIN 3.6 g/dL 12/13/2016 Comp Metabolic Ioj138 TPRO 6.4 g/dL 12/13/2016 Comp Metabolic Yic547 GLOB 2.9 g/dL 12/13/2016 Comp Metabolic Qlk761 A/G Ratio 1.2 Ratio 12/13/2016 Comp Metabolic Wyz542 Osmo 273 mOsmo 12/13/2016 Lipid Ord30 CHOL 182 mg/dL 12/13/2016 Lipid Ord30 HDL 64.0 mg/dl 12/13/2016 Lipid Ord30 TRIG 62 mg/dL 12/13/2016 Lipid Ord30 LDL 106 mg/dL 12/13/2016 Lipid Ord30 C/HDL 2.8 Ratio 12/13/2016 Ferritin Ord22 FERRITIN 434.7 ng/mL 12/13/2016 B12 Qzu252 B12 247.00 pg/ml 12/13/2016 Tibc Ord40 Iron [...] 33.7 pg 04/27/2016 Cbc With Differential Ord2 Hardee% 13.7 % 04/27/2016 Cbc With Differential Ord2 [...] 3.22 K/ul 04/27/2016 Cbc With Differential Ord2 Hardee ABS# 1.2 K/ul 04/27/2016 Cbc With Differential Ord2 Eos ABS# 0.3 K/ul 04/27/2016 Cbc With Differential Ord2 Baso ABS# 0.0 K/ul 04/27/2016 Comp Metabolic Ntz082 NA 138 mEq/L 04/27/2016 Comp Metabolic Vbb867 K 4.3 mEq/L 04/27/2016 Comp Metabolic Nvg223 CL 104 mEq/L 04/27/2016 Comp Metabolic Epu239 CO2 30.0 mEq/L 04/27/2016 Comp Metabolic Ckj931 ANION GAP 8 04/27/2016 Comp Metabolic Vlw827 GLUCOSE 87 mg/dL 04/27/2016 Comp Metabolic Pfk564 Creat 0.9 mg/dL 04/27/2016 Comp Metabolic Lzq314 eGFR 82 ml/min/1.73m2 04/27/2016 Comp Metabolic Dou506 BUN 13 mg/dL 04/27/2016 Comp Metabolic Dka113 B/C Ratio 13.8 Ratio 04/27/2016 Comp Metabolic Ddl020 CALCIUM 9.0 mg/dL 04/27/2016 Comp Metabolic Zjj507 ALK PHOS 62 U/L 04/27/2016 Comp Metabolic Guz199 AST(SGOT) 24 U/L 04/27/2016 Comp Metabolic Zdg622 ALT(SGPT) 15 U/L 04/27/2016 Comp Metabolic Zbq830 BILI T 0.7 mg/dL 04/27/2016 Comp Metabolic Vcq037 ALBUMIN 3.6 g/dL 04/27/2016 Comp Metabolic Wwn354 TPRO 6.1 g/dL 04/27/2016 Comp Metabolic Jtx497 GLOB 2.5 g/dL 04/27/2016 Comp Metabolic Ntj250 A/G Ratio 1.4 Ratio 04/27/2016 Comp Metabolic Ayg562 Osmo 275 mOsmo 04/27/2016 B12 Gmi775 B12 >1500.00 pg/ml 04/27/2016 Iron Ord72 Iron [...] accomodation 09/06/2016 None Full Exam - General 1995 [...] Date VITAMIN B12 INJECTION CPT- 4: J3420 02/25/2019 THER/PROPH/DIAG INJ SC/IM CPT-4: 28760 02/25/2019 THER/PROPH/DIAG INJ SC/IM CPT-4: 19843 01/25/2019 VITAMIN B12 INJECTION CPT- 4: J3420 01/25/2019 THER/PROPH/DIAG INJ SC/IM CPT-4: 52132 12/27/2018 VITAMIN B12 INJECTION CPT- 4: J3420 12/27/2018 THER/PROPH/DIAG INJ SC/IM CPT-4: 90303 11/29/2018 VITAMIN B12 INJECTION CPT- 4: J3420 11/29/2018 THER/PROPH/DIAG INJ SC/IM CPT-4: 55855 10/29/2018 VITAMIN B12 INJECTION CPT- 4: J3420 10/29/2018 THER/PROPH/DIAG INJ SC/IM CPT-4: 65623 09/28/2018 VITAMIN B12 INJECTION CPT- 4: J3420 09/28/2018 THER/PROPH/DIAG INJ SC/IM CPT-4: 61753 08/30/2018 VITAMIN B12 INJECTION CPT- 4: J3420 08/30/2018 VITAMIN B12 INJECTION CPT- 4: J3420 07/31/2018 THER/PROPH/DIAG INJ SC/IM CPT-4: 50551 07/31/2018 THER/PROPH/DIAG INJ SC/IM CPT-4: 91035 07/02/2018 VITAMIN B12 INJECTION CPT- 4: J3420 07/02/2018 THER/PROPH/DIAG INJ SC/IM CPT-4: 95143 05/31/2018 ADMIN INFLUENZA VIRUS VAC CPT-4: G0008 05/31/2018 VITAMIN B12 INJECTION CPT- 4: J3420 05/31/2018 FLU VACC PRSV FREE INC ANTIG Formatting Model/CDA Sections, Assigned to/Mary Grace Rosado CPT-4: [id number] 05/31/2018 VITAMIN B12 INJECTION CPT- 4: J3420 05/03/2018 THER/PROPH/DIAG INJ SC/IM CPT-4: 80159 05/03/2018 THER/PROPH/DIAG INJ SC/IM CPT-4: 01617 04/04/2018 VITAMIN B12 INJECTION CPT- 4: J3420 04/04/2018 THER/PROPH/DIAG INJ SC/IM CPT-4: 78799 03/05/2018 VITAMIN B12 INJECTION CPT- 4: J3420 03/05/2018 VITAMIN B12 INJECTION CPT- 4: J3420 01/30/2018 THER/PROPH/DIAG INJ SC/IM CPT-4: 66046 01/30/2018 THER/PROPH/DIAG INJ SC/IM CPT-4: 90743 01/01/2018 VITAMIN B12 INJECTION CPT- 4: J3420 01/01/2018 PPPS, SUBSEQ VISIT CPT- 4: G0439 12/18/2017 THER/PROPH/DIAG INJ SC/IM CPT-4: 08796 11/28/2017 VITAMIN B12 INJECTION CPT- 4: J3420 11/28/2017 THER/PROPH/DIAG INJ SC/IM CPT-4: 90520 10/24/2017 VITAMIN B12 INJECTION CPT- 4: J3420 10/24/2017 THER/PROPH/DIAG INJ SC/IM CPT-4: 14677 09/26/2017 VITAMIN B12 INJECTION CPT- 4: J3420 09/26/2017 THER/PROPH/DIAG INJ SC/IM CPT-4: 46866 08/10/2017 VITAMIN B12 INJECTION CPT- 4: J3420 08/10/2017 THER/PROPH/DIAG INJ SC/IM CPT-4: 26569 07/18/2017 VITAMIN B12 INJECTION CPT- 4: J3420 07/18/2017 THER/PROPH/DIAG INJ SC/IM CPT-4: 41489 05/16/2017 VITAMIN B12 INJECTION CPT- 4: J3420 05/16/2017 THER/PROPH/DIAG INJ SC/IM CPT-4: 23932 03/14/2017 VITAMIN B12 INJECTION CPT- 4: J3420 03/14/2017 TRIAMCINOLONE ACET INJ NOS CPT-4: J3301 01/12/2017 ROCEPHIN, PER 250 MG CPT- 4: J0696 01/12/2017 VITAMIN B12 INJECTION CPT- 4: J3420 01/12/2017 THER/PROPH/DIAG INJ SC/IM CPT-4: 38653 01/12/2017 PPPS, SUBSEQ VISIT CPT- 4: G0439 12/12/2016 PNEUMOCOCCAL VACC [address]: 63662987 CPT-4: 39698 12/12/2016 ADMIN PNEUMOCOCCAL VACCINE SNOMED CT: 58728020 CPT-4: G0009 12/12/2016 THER/PROPH/DIAG INJ SC/IM CPT-4: 85743 10/27/2016 VITAMIN B12 INJECTION CPT- 4: J3420 10/27/2016 THER/PROPH/DIAG INJ SC/IM CPT-4: 30964 07/27/2016 VITAMIN B12 INJECTION CPT- 4: J3420 07/27/2016 THER/PROPH/DIAG INJ SC/IM CPT-4: 45803 04/26/2016 VITAMIN B12 INJECTION CPT- 4: J3420 04/26/2016 Vital Signs Date Vital 01/08/2019 Blood Pressure 1: 138/82 Code: 8480-6 BMI: 26.0 Code: 94173-1 Heart Rate 1: 66 bpm Height: 5'7" SpO2: 97% Weight: 166 lbs 11/19/2018 Blood Pressure 1: 128/76 Code: 8480-6 BMI: 25.8 Code: 30426-4 Heart Rate 1: 76 bpm Height: 5'7" SpO2: 98% Weight: 165 lbs 08/15/2018 Blood Pressure 1: 144/66 Code: 8480-6 BMI: 25.1 Code: 30637-2 Heart Rate 1: 75 bpm Height: 5'7" SpO2: 98% Weight: 160 lbs 05/23/2018 Blood Pressure 1: 158/64 Code: 8480-6 BMI: 24.7 Code: 43935-1 Heart Rate 1: 76 bpm Height: 5'7" SpO2: 96% Temperature: 36.7 (C) / 98.1 (F) Weight: 158 lbs 05/03/2018 Blood Pressure 1: 122/72 Code: 8480-6 BMI: 25.1 Code: 66973-6 Heart Rate 1: 74 bpm Height: 5'7" SpO2: 97% Weight: 160 lbs 01/31/2018 Blood Pressure 1: 137/77 Code: 8480-6 Blood Pressure 2: 138/68 Code: 8480-6 Heart Rate 1: 67 bpm SpO2: 98% 01/30/2018 Blood Pressure 1: 138/66 Code: 8480-6 BMI: 25.1 Code: 84585-7 Heart Rate 1: 76 bpm Height: 5'7" SpO2: 94% Weight: 160 lbs 12/18/2017 Blood Pressure 1: 152/88 Code: 8480-6 BMI: 25.8 Code: 24397-9 Heart Rate 1: 68 bpm Height: 5'7" SpO2: 96% Weight: 165 lbs 11/28/2017 Blood Pressure 1: 150/76 Code: 8480-6 BMI: 25.2 Code: 41012-7 Heart Rate 1: 78 bpm Height: 5'7" SpO2: 98% Weight: 161 lbs 10/10/2017 Blood Pressure 1: 156/76 Code: 8480-6 BMI: 24.7 Code: 90792-1 Heart Rate 1: 71 bpm Height: 5'7" SpO2: 98% Weight: 158 lbs 09/26/2017 Blood Pressure 1: 162/82 Code: 8480-6 BMI: 24.7 Code: 14262-2 Heart Rate 1: 69 bpm Height: 5'7" SpO2: 99% Weight: 158 lbs 08/16/2017 Blood Pressure 1: 154/82 Code: 8480-6 BMI: 24.1 Code: 89169-4 Heart Rate 1: 58 bpm Height: 5'7" SpO2: 96% Weight: 154 lbs 07/18/2017 Blood Pressure 1: 152/88 Code: 8480-6 BMI: 25.2 Code: 13821-2 Heart Rate 1: 72 bpm Height: 5'7" SpO2: 98% Weight: 161 lbs 05/16/2017 Blood Pressure 1: 136/78 Code: 8480-6 BMI: 24.8 Code: 68925-0 Heart Rate 1: 71 bpm Height: 5'7" SpO2: 96% Weight: 158 lbs 8 oz 03/14/2017 Blood Pressure 1: 142/74 Code: 8480-6 BMI: 23.8 Code: 63107-2 Heart Rate 1: 69 bpm Height: 5'7" SpO2: 94% Weight: 152 lbs 01/12/2017 Blood Pressure 1: 156/90 Code: 8480-6 BMI: 23.4 Code: 01359-1 Heart Rate 1: 90 bpm Height: 5'7" SpO2: 97% Temperature: 37.4 (C) / 99.3 (F) Weight: 149 lbs 8 oz 12/12/2016 Blood Pressure 1: 140/78 Code: 8480-6 BMI: 24.3 Code: 52883-2 Heart Rate 1: 73 bpm Height: 5'7" SpO2: 96% Waist Measure (cm): 90 cm Weight: 155 lbs 12/08/2016 Blood Pressure 1: 148/84 Code: 8480-6 BMI: 24.3 Code: 65470-2 Heart Rate 1: 80 bpm Height: 5'7" SpO2: 96% Weight: 155 lbs 11/03/2016 Blood Pressure 1: 156/84 Code: 8480-6 Blood Pressure 2: 155/94 Code: 8480-6 BMI: 24.3 Code: 86302-5 Heart Rate 1: 81 bpm Height: 5'7" SpO2: 98% Weight: 155 lbs 10/06/2016 Blood Pressure 1: 175/95 Code: 8480-6 Heart Rate 1: 77 bpm Respiratory Rate: 16 bpm SpO2: 98% Temperature: 36.4 (C) / 97.5 (F) Weight: 157 lbs 09/06/2016 Blood Pressure 1: 136/80 Code: 8480-6 BMI: 24.1 Code: 09239-3 Heart Rate 1: 82 bpm Height: 5'8" SpO2: 97% Weight: 156 lbs 08/23/2016 Blood Pressure 1: 160/80 Code: 8480-6 BMI: 24.4 Code: 33921-9 Heart Rate 1: 88 bpm Height: 5'8" SpO2: 95% Weight: 158 lbs 04/26/2016 Blood Pressure 1: 156/74 Code: 8480-6 BMI: 24.5 Code: 45383-9 Heart Rate 1: 70 bpm Height: 5'8" [...] data Encounters Encounter Performer Location Codes Date ([id number]) 32617 EST. PATIENT, LEVEL III Diagnosis: Sebaceous cyst[ICD10: L72.3] Ana Paris MD, [facility] CPT-4: 61655 01/08/2019 ([id number]) 98866 EST. PATIENT, LEVEL IV Diagnosis: Essential (primary) hypertension[ICD10: I10] Diagnosis: Chronic pain syndrome[ICD10: G89.4] Diagnosis: Epigastric pain[ICD10: R10.13] Andree Paris MD, [facility] CPT-4: 76362 11/19/2018 ([id number]) 51376 EST. PATIENT, LEVEL III Diagnosis: Essential (primary) hypertension[ICD10: I10] Andree Paris MD [facility] CPT-4: 61459 08/15/2018 28212 EST. PATIENT, LEVEL III Diagnosis: Dysphagia, pharyngoesophageal phase[ICD10: R13.14] Teresa Paris MD, [facility] CPT-4: 09708 05/23/2018 ([id number]) 79858 EST. PATIENT, LEVEL IV Diagnosis: Essential (primary) hypertension[ICD10: I10] Diagnosis: Chronic pain syndrome[ICD10: G89.4] Diagnosis: Vitamin B12 deficiency anemia due to intrinsic factor deficiency[ICD10: D51.0] Diagnosis: Other iron deficiency anemias[ICD10: D50.8] Diagnosis: Slow transit constipation[ICD10: K59.01] Andree Paris MD, [facility] CPT-4: 29591 05/03/2018 ([id number]) Miscellaneous no charge Diagnosis: Essential (primary) hypertension[ICD10: I10] Teresa Paris MD, [facility] CPT-4: 89870 01/31/2018 ([id number]) 23375 EST. PATIENT, LEVEL IV Diagnosis: Essential (primary) hypertension[ICD10: I10] Diagnosis: Chronic pain syndrome[ICD10: G89.4] Andree Paris MD, [facility] CPT- 4: 87495 01/30/2018 ([id number]) 30459 EST. PATIENT, LEVEL IV Diagnosis: Essential (primary) hypertension[ICD10: I10] Diagnosis: Chronic pain syndrome[ICD10: G89.4] Diagnosis: Vitamin B12 deficiency anemia due to intrinsic factor deficiency[ICD10: D51.0] Diagnosis: Iron deficiency anemia, unspecified[ICD10: D50.9] Ana Paris MD, [facility] CPT-4: 57859 11/28/2017 87027 EST. PATIENT, LEVEL IV Diagnosis: Essential (primary) hypertension[ICD10: I10] Diagnosis: Slow transit constipation[ICD10: K59.01] Diagnosis: Chronic pain syndrome[ICD10: G89.4] Teresa Paris MD, [facility] CPT- 4: 33051 10/10/2017 [id number] EST. PATIENT, LEVEL IV Diagnosis: Vitamin B12 deficiency anemia due to intrinsic factor deficiency[ICD10: D51.0] Diagnosis: Essential (primary) hypertension[ICD10: I10] Diagnosis: Chronic pain syndrome[ICD10: G89.4] Teresa Paris MD, [facility] CPT- 4: 24971 09/26/2017 77207 EST. PATIENT, LEVEL III Diagnosis: Dysphagia, pharyngoesophageal phase[ICD10: R13.14] Teresa Paris MD, [facility] CPT-4: 15464 08/16/2017 ([id number]) 77265 EST. PATIENT, LEVEL IV Diagnosis: Essential (primary) hypertension[ICD10: I10] Diagnosis: Chronic pain syndrome[ICD10: G89.4] Diagnosis: Vitamin B12 deficiency anemia due to intrinsic factor deficiency[ICD10: D51.0] Diagnosis: Iron deficiency anemia, unspecified[ICD10: D50.9] Diagnosis: Dysphagia, pharyngoesophageal phase[ICD10: R13.14] Ana Paris MD, [facility] CPT-4: 57810 07/18/2017 ([id number]) 50589 EST. PATIENT, LEVEL III Diagnosis: Essential (primary) hypertension[ICD10: I10] Diagnosis: Chronic pain syndrome[ICD10: G89.4] Diagnosis: Vitamin B12 deficiency anemia due to intrinsic factor deficiency[ICD10: D51.0] Ana Paris MD, [facility] CPT-4: 75790 05/16/2017 ([id number]) 64214 EST. PATIENT, LEVEL III Diagnosis: Essential (primary) hypertension[ICD10: I10] Diagnosis: Chronic pain syndrome[ICD10: G89.4] Diagnosis: Vitamin B12 deficiency anemia due to intrinsic factor deficiency[ICD10: D51.0] Ana Paris MD, [facility] CPT-4: 93403 03/14/2017 ([id number]) 52814 EST. PATIENT, LEVEL III Diagnosis: Cough[ICD10: R05] Diagnosis: Acute bronchitis, unspecified[ICD10: J20.9] Diagnosis: Chronic pain syndrome[ICD10: G89.4] Diagnosis: Vitamin B12 deficiency anemia due to intrinsic factor deficiency[ICD10: D51.0] Ana Paris MD, [facility] CPT-4: 68169 01/12/2017 ([id number]) 03767 EST. PATIENT, LEVEL III Diagnosis: Essential (primary) hypertension[ICD10: I10] Diagnosis: Chronic pain syndrome[ICD10: G89.4] Ana Paris MD, [facility] CPT-4: 31282 12/08/2016 ([id number]) 17760 EST. PATIENT, LEVEL III Diagnosis: Essential (primary) hypertension[ICD10: I10] Ana Paris MD, [facility] CPT-4: 65842 11/03/2016 ([id number]) 79349 EST. PATIENT, LEVEL III Diagnosis: Essential (primary) hypertension[ICD10: I10] Ana Paris MD, [facility] CPT-4: 78116 10/06/2016 ([id number]) 79960 EST. PATIENT, LEVEL III Diagnosis: Essential (primary) hypertension[ICD10: I10] Ana Paris MD, [facility] CPT-4: 71540 09/06/2016 ([id number]) 86925 EST. PATIENT, LEVEL III Diagnosis: Essential (primary) hypertension[ICD10: I10] Ana Paris MD, [facility] CPT-4: 91065 08/23/2016 ([id number]) OFFICE VISIT, NEW - LEVEL 4 Diagnosis: Noninfective gastroenteritis and colitis, unspecified[ICD10: K52.9] Diagnosis: Vitamin B12 deficiency anemia due to intrinsic factor deficiency[ICD10: D51.0] Diagnosis: Iron deficiency anemia, unspecified[ICD10: D50.9] Diagnosis: Chalazion left upper eyelid[ICD10: H00.14] Diagnosis: Elevated blood-pressure reading, without diagnosis of hypertension[ICD10: R03.0] [facility] CPT-4: 79271 04/26/2016 Plan of Care Planned Activity Notes Codes Status Date Appointment: Injection 02/25/2019 Patient Education: Patient Medication [...] of plan. 01/08/2019 Appointment: Ana Pedraza WPtel: [phone] [phone] (30 min) Complex 01/08/2019 Patient Education: Patient Medication Summary Completed [...] over-medication. 11/19/2018 [phone] ([facility] min) Moderate 11/19/2018 Patient Education: [...] amlodipine 08/15/2018 [phone] ([facility] min) Moderate 08/15/2018 Patient Education: [...] treatment plan. 05/23/2018 App[facility]ment[facility] ([facility]) Moderate 05/23/2018 Patient Education: [...] current management. 05/03/2018 Appointment: [facility] ([facility] min) Moderate 05/03/2018 [...] [phone] (15 min) Moderate 01/30/2018 Patient Education: [...] acute concerns. 12/18/2017 Appointment: Ana Pedraza WPtel: [phone] [phone] [facility] - Annual Wellness Visit 12/18/2017 [...] def-check labs 11/28/2017 Appointment: Ana Pedraza WPtel: [phone] [place] [phone] (30 min) Complex 11/28/2017 Patient Education: Patient [...] this regimen. 10/10/2017 Appointment: Teresa Bardales WPtel: [address] [place], [place] [phone] [place] (30 min) Complex 10/10/2017 Patient Education: Patient [...] over-medication. 09/26/2017 Appointment: Teresa Bardales WPtel: [facility] (30 min) Complex 09/26/2017 Patient Education: Patient Medication Summary Completed 09/26/2017 Appointment: Teresa Bardales WPtel: [address] [place], [place] [phone] (30 min) Complex 09/19/2017 Referral: External, Ordering Provider Referral Appointment Confirmed 08/17/2017 Visit Plan: Dysphagia - worsening since yesterday - will refer to Dr. Harper for possible EGD - pt is to notify clinic if symptoms do not improve, if they worsen, or with any acute changes, questions, or concerns. 08/16/2017 Appointment: Teresa Bardales WPtel: [phone] [facility] (30 min) Complex 08/16/2017 Patient Education: Patient Medication Summary Completed 08/16/2017 Care Plan: Referral Order SNOMED-CT : [id number] Pending 08/16/2017 Appointment: Injection 08/10/2017 Patient Education: [...] first 07/18/2017 Appointment: Ana Pedraza WPtel: [phone] [phone] (30 min) Complex 07/18/2017 Patient Education: [...] 05/16/2017 Appointment: Ana Pedraza WPtel: [phone] (30 min) Complex 05/16/2017 Patient Education: [...] over-medication. 03/14/2017 Appointment: Ana Pedraza WPtel: [phone] (30 min) Complex 03/14/2017 Patient Education: [...] over-medication. 01/12/2017 Appointment: Ana Pedraza WPtel: [phone] (30 min) Complex 01/12/2017 Patient Education: [...] care surrogate. 12/12/2016 Appointment: Ana Pedraza WPtel: [address] [place] [phone] - Annual Wellness Visit 12/12/2016 Patient Education: [...] 12/08/2016 Appointment: Ana Pedraza WPtel: [facility] [address] (30 min) Complex 12/08/2016 Patient Education: [...] 11/03/2016 Appointment: Ana Pedraza WPtel: [facility] [address] (30 min) Complex 11/03/2016 Patient Education: Patient [...] concerns. 10/06/2016 Appointment: Ana Pedraza WPtel: [phone] [phone] (30 min) Complex 10/06/2016 Patient Education: [...] 09/06/2016 Appointment: Ana Pedraza WPtel: [phone] (30 min) Complex 09/06/2016 Patient Education: [...] concerns. 08/23/2016 Appointment: Ana Pedraza WPtel: [phone] [phone] (15 min) Moderate 08/23/2016 Patient Education: [...] gentamycin. 04/26/2016 Appointment: [phone] [place] New [facility] 04/26/2016 Patient Education: [...] DOPA paperwork for health care surrogate. . Dysphagia - discussed with Dr. Paris [...] to consider decreasing or stopping his amlodipine if your blood pressure is at or [...] management. Eyelid infection - rx for gentamycin. OKAY TO STAY OF THE WATER PILL [...] is to call for acute concerns. . Sebaceous cyst -left lower back -rx for antibiotic provided for acute infection and instructed on use -return to clinic if not improving or if any worse- refer to Dr Parish for surgical removal of cyst- patient verbalized understanding of plan.
--- OUTSIDE RECORDS SUMMARY | 2019-04-03 14:00 | XMS REPORT | CCD ---
Author Author [facility] Organization [facility] Address [address] [place] [address] Phone Care Team Providers Care Line Up Examiner Name Role Phone PP Unavailable CCM Unavailable Summary Purpose Interface Exchange Insurance Providers Payer name Policy type / Coverage type Covered republican ID Effective Begin Date Effective End Date WPS Medicare Part B Medicare Part B [id number] Unknown Unknown FOR LIFE WPS Medicare Part B [id number] Unknown Unknown Family history Father Diagnosis Age At Onset No Known Diseases N/A Mother Diagnosis Age At Onset No Known Diseases N/A Social History Social History Element Codes Description Effective Dates Marital status Unknown 04/26/2016 Number of children Unknown 3 04/26/2016 Employment Unknown Retired 04/26/[address]: 6176560 Former smoker Quit 1968 04/26/[address]: 337084 Currently drinks alcohol 04/26/2016 Has the patient [...] morphine ER 30 mg tablet,extended release RxNorm: 007222 1 Tablet(s) PO daily 02/25/2019 03/26/2019 Active cyanocobalamin (vit B-12) 1,000 mcg/mL injection solution RxNorm: 170448 1 Milliliter(s) Inj 02/25/2019 02/25/2019 Inactive amlodipine 5 mg tablet RxNorm: 860433 1 Tablet(s) PO QPM 02/25/2019 01/20/2020 Active lisinopril 20 mg tablet RxNorm: 813161 1 Tablet(s) PO BID 02/25/2019 01/20/2020 Active morphine ER 30 mg tablet,extended release RxNorm: 171312 1 Tablet(s) PO daily 01/25/2019 02/23/2019 Inactive cyanocobalamin (vit B-12) 1,000 mcg/mL injection solution RxNorm: 078473 Milliliter(s) Inj 01/25/2019 01/25/2019 Inactive doxycycline hyclate 100 mg tablet RxNorm: 3078470 1 Tablet(s) PO BID 01/08/2019 01/14/2019 Inactive cyanocobalamin (vit B-12) 1,000 mcg/mL injection solution RxNorm: 604468 Milliliter(s) Inj 12/27/2018 12/27/2018 Inactive morphine ER 30 mg tablet,extended release RxNorm: 482890 1 Tablet(s) PO daily 12/27/2018 01/24/2019 Inactive cyanocobalamin (vit B-12) 1,000 mcg/mL injection solution RxNorm: 887900 Milliliter(s) Inj 11/29/2018 11/29/2018 Inactive morphine ER 30 mg tablet,extended release RxNorm: 598153 1 Tablet(s) PO daily 10/29/2018 11/27/2018 Inactive cyanocobalamin (vit B-12) 1,000 mcg/mL injection solution RxNorm: 848647 Milliliter(s) Inj 10/29/2018 10/29/2018 Inactive cyanocobalamin (vit B-12) 1,000 mcg/mL injection solution RxNorm: 343213 Milliliter(s) Inj 09/28/2018 09/28/2018 Inactive morphine ER 30 mg tablet,extended release RxNorm: 186775 1 Tablet(s) PO daily 09/28/2018 10/27/2018 Inactive morphine ER 30 mg tablet,extended release RxNorm: 427878 1 Tablet(s) PO daily 08/30/2018 09/27/2018 Inactive cyanocobalamin (vit B-12) 1,000 mcg/mL injection solution RxNorm: 504763 Milliliter(s) Inj 08/30/2018 08/30/2018 Inactive cyanocobalamin (vit B-12) 1,000 mcg/mL injection solution RxNorm: 370193 Milliliter(s) Inj 07/31/2018 07/31/2018 Inactive morphine ER 30 mg tablet,extended release RxNorm: 979355 1 Tablet(s) PO daily 07/31/2018 08/29/2018 Inactive amlodipine 5 mg tablet RxNorm: 927375 1 Tablet(s) PO QPM 07/11/2018 01/06/2019 Inactive cyanocobalamin (vit B-12) 1,000 mcg/mL injection solution RxNorm: 935460 1 Milliliter(s) Inj 07/02/2018 07/02/2018 Inactive morphine ER 30 mg tablet,extended release RxNorm: 535534 1 Tablet(s) PO daily 07/02/2018 07/30/2018 Inactive morphine ER 30 mg tablet,extended release RxNorm: 284810 1 Tablet(s) PO daily 05/31/2018 06/29/2018 Inactive cyanocobalamin (vit B-12) 1,000 mcg/mL injection solution RxNorm: 351562 Milliliter(s) Inj 05/31/2018 05/31/2018 Inactive Protonix 40 mg tablet,delayed release RxNorm: 047564 1 Tablet(s) PO daily 05/23/2018 06/21/2018 Inactive Carafate 1 gram tablet RxNorm: 383914 1 Tablet(s) PO AC & HS as needed 05/23/2018 06/21/2018 Inactive cyanocobalamin (vit B-12) 1,000 mcg/mL injection solution RxNorm: 562740 1 Milliliter(s) Inj 05/03/2018 05/03/2018 Inactive morphine ER 30 mg tablet,extended release RxNorm: 774341 1 Tablet(s) PO daily 04/04/2018 05/03/2018 Inactive cyanocobalamin (vit B-12) 1,000 mcg/mL injection solution RxNorm: 524245 1 Milliliter(s) Inj 04/04/2018 04/04/2018 Inactive cyanocobalamin (vit B-12) 1,000 mcg/mL injection solution RxNorm: 359128 1 Milliliter(s) Inj 03/05/2018 03/05/2018 Inactive morphine ER 30 mg tablet,extended release RxNorm: 678033 1 Tablet(s) PO daily 03/05/2018 04/03/2018 Inactive cyanocobalamin (vit B-12) 1,000 mcg/mL injection solution RxNorm: 324724 1 Milliliter(s) Inj 01/30/2018 01/30/2018 Inactive cyanocobalamin (vit B-12) 1,000 mcg/mL injection solution RxNorm: 423700 1 Milliliter(s) Inj 01/01/2018 01/01/2018 Inactive morphine ER 30 mg tablet,extended release RxNorm: 545869 1 Tablet(s) PO daily 01/01/2018 01/30/2018 Inactive amlodipine 5 mg tablet RxNorm: 992850 1 Tablet(s) PO QPM 12/18/2017 06/15/2018 Inactive lisinopril 20 mg tablet RxNorm: 844478 1 Tablet(s) PO BID 12/18/2017 12/12/2018 Inactive cyanocobalamin (vit B-12) 1,000 mcg/mL injection solution RxNorm: 451912 1 Milliliter(s) Inj 11/28/2017 11/28/2017 Inactive morphine ER 30 mg tablet,extended release RxNorm: 926009 1 Tablet(s) PO daily 11/28/2017 12/27/2017 Inactive morphine ER 30 mg tablet,extended release RxNorm: 232323 1 Tablet(s) PO daily 11/09/2017 11/27/2017 Inactive cyanocobalamin (vit B-12) 1,000 mcg/mL injection solution RxNorm: 296270 1 Milliliter(s) Inj 10/24/2017 10/24/2017 Inactive morphine ER 30 mg tablet,extended release RxNorm: 129884 1 Tablet(s) PO daily 10/10/2017 11/08/2017 Inactive hydrochlorothiazide 25 mg tablet RxNorm: 954490 1 Tablet(s) PO daily 10/10/2017 11/08/2017 Inactive cyanocobalamin (vit B-12) 1,000 mcg/mL injection solution RxNorm: 683171 1 Milliliter(s) Inj 09/26/2017 09/26/2017 Inactive hydrochlorothiazide 12.5 mg tablet RxNorm: 668375 1 Tablet(s) PO daily 09/26/2017 10/25/2017 Inactive morphine ER 30 mg tablet,extended release RxNorm: 405361 1 Tablet(s) PO daily 09/12/2017 10/09/2017 Inactive cyanocobalamin (vit B-12) 1,000 mcg/mL injection solution RxNorm: 682329 1 Milliliter(s) Inj 08/10/2017 08/10/2017 Inactive morphine ER 30 mg tablet,extended release RxNorm: 509385 1 Tablet(s) PO daily 08/10/2017 09/08/2017 Inactive Vitamin B-12 1,000 mcg/mL injection solution RxNorm: 378271 1 Milliliter(s) Inj month 07/21/2017 No Stop Date Active B12 INJECTIONS MONTHLY cyanocobalamin (vit B-12) 1,000 mcg/mL injection solution RxNorm: 412221 1 Milliliter(s) Inj 07/18/2017 07/18/2017 Inactive morphine ER 30 mg tablet,extended release RxNorm: 816064 1 Tablet(s) PO daily 07/13/2017 08/09/2017 Inactive morphine ER 30 mg tablet,extended release RxNorm: 434712 1 Tablet(s) PO daily 06/15/2017 07/12/2017 Inactive cyanocobalamin (vit B-12) 1,000 mcg/mL injection solution RxNorm: 790344 1 Milliliter(s) Inj 05/16/2017 05/16/2017 Inactive morphine ER 30 mg tablet,extended release RxNorm: 134570 1 Tablet(s) PO daily 04/13/2017 05/12/2017 Inactive cyanocobalamin (vit B-12) 1,000 mcg/mL injection solution RxNorm: 169959 1 Milliliter(s) Inj 03/14/2017 03/14/2017 Inactive morphine ER 30 mg tablet,extended release RxNorm: 710758 1 Tablet(s) PO daily 03/14/2017 04/12/2017 Inactive morphine ER 30 mg tablet,extended release RxNorm: 305391 1 Tablet(s) PO daily 02/13/2017 03/13/2017 Inactive Kenalog 40 mg/mL suspension for injection RxNorm: 5124273 1 Milliliter(s) Inj 01/12/2017 01/12/2017 Inactive cyanocobalamin (vit B-12) 1,000 mcg/mL injection solution RxNorm: 579147 1 Milliliter(s) Inj 01/12/2017 01/12/2017 Inactive Zithromax Z-[place] 250 mg tablet RxNorm: 913903 1 Tablet(s) PO UD 01/12/2017 01/16/2017 Inactive ceftriaxone 500 mg solution for injection RxNorm: 4958465 1 Milliliter(s) Inj 01/12/2017 01/12/2017 Inactive Vitamin B-12 1,000 mcg/mL injection solution RxNorm: 797397 1 Milliliter(s) Inj EVERY OTHER MONTH 01/04/2017 07/20/2017 Inactive lisinopril 20 mg tablet RxNorm: 486955 1 Tablet(s) PO BID 01/02/2017 12/17/2017 Inactive lisinopril 20 mg tablet RxNorm: 934056 1 Tablet(s) PO BID 12/12/2016 01/01/2017 Inactive morphine ER 30 mg tablet,extended release RxNorm: 157327 1 Tablet(s) PO daily 12/08/2016 01/06/2017 Inactive lisinopril 20 mg tablet RxNorm: 537138 1 Tablet(s) PO BID 11/03/2016 12/11/2016 Inactive morphine ER 30 mg tablet,extended release RxNorm: 858108 1 Tablet(s) PO daily 11/03/2016 12/02/2016 Inactive cyanocobalamin (vit B-12) 1,000 mcg/mL injection solution RxNorm: 866709 1 Milliliter(s) Inj 10/27/2016 10/27/2016 Inactive lisinopril 10 mg tablet RxNorm: 229767 1 Tablet(s) PO BID 10/06/2016 11/02/2016 Inactive lisinopril 10 mg tablet RxNorm: 319670 1 Tablet(s) PO daily 09/06/2016 10/05/2016 Inactive morphine ER 30 mg tablet,extended release RxNorm: 221609 1 Tablet(s) PO daily 08/18/2016 09/16/2016 Inactive cyanocobalamin (vit B-12) 1,000 mcg/mL injection solution RxNorm: 277607 Milliliter(s) Inj 07/27/2016 07/27/2016 Inactive morphine ER 30 mg tablet,extended release RxNorm: 347748 1 Tablet(s) PO daily 07/21/2016 08/17/2016 Inactive morphine ER 30 mg tablet,extended release RxNorm: 537916 1 Tablet(s) PO daily 06/20/2016 07/19/2016 Inactive morphine ER 30 mg tablet,extended release RxNorm: 595868 1 Tablet(s) PO daily 05/20/2016 06/19/2016 Inactive cyanocobalamin (vit B-12) 1,000 mcg/mL injection solution RxNorm: 523517 1 Milliliter(s) Inj 04/26/2016 04/26/2016 Inactive gentamicin 0.3 % eye drops RxNorm: 702376 2 Drop(s) OPH Q4H 04/26/2016 05/02/2016 Inactive Vitamin B-12 1,000 mcg/mL injection solution RxNorm: 425986 1 Milliliter(s) Inj EVERY 3 MONTHS No Start Date 01/03/2017 Inactive Claritin 10 mg tablet RxNorm: 432676 1 Tablet(s) PO daily No Start Date 07/17/2017 Inactive Venofer intravenous RxNorm: 00946 intravenous No Start Date 08/14/2018 Inactive morphine ER 30 mg tablet,extended release RxNorm: 954476 1 Tablet(s) PO daily No Start Date 04/25/2016 Inactive Medication Administered Medication Codes Instructions Start Date Status cyanocobalamin (vit B-12) 1,000 mcg/mL injection solution RxNorm: 990757 1Milliliter 02/25/2019 Active cyanocobalamin (vit B-12) 1,000 mcg/mL injection solution RxNorm: 495911 Milliliter 01/25/2019 No longer Active cyanocobalamin (vit B-12) 1,000 mcg/mL injection solution RxNorm: 466877 Milliliter 12/27/2018 No longer Active cyanocobalamin (vit B-12) 1,000 mcg/mL injection solution RxNorm: 904360 Milliliter 11/29/2018 No longer Active cyanocobalamin (vit B-12) 1,000 mcg/mL injection solution RxNorm: 410032 Milliliter 10/29/2018 No longer Active cyanocobalamin (vit B-12) 1,000 mcg/mL injection solution RxNorm: 839369 Milliliter 09/28/2018 No longer Active cyanocobalamin (vit B-12) 1,000 mcg/mL injection solution RxNorm: 265248 Milliliter 08/30/2018 No longer Active cyanocobalamin (vit B-12) 1,000 mcg/mL injection solution RxNorm: 111748 Milliliter 07/31/2018 No longer Active cyanocobalamin (vit B-12) 1,000 mcg/mL injection solution RxNorm: 239174 1Milliliter 07/02/2018 No longer Active cyanocobalamin (vit B-12) 1,000 mcg/mL injection solution RxNorm: 689867 Milliliter 05/31/2018 No longer Active cyanocobalamin (vit B-12) 1,000 mcg/mL injection solution RxNorm: 586984 1Milliliter 05/03/2018 No longer Active cyanocobalamin (vit B-12) 1,000 mcg/mL injection solution RxNorm: 179944 1Milliliter 04/04/2018 No longer Active cyanocobalamin (vit B-12) 1,000 mcg/mL injection solution RxNorm: 918255 1Milliliter 03/05/2018 No longer Active cyanocobalamin (vit B-12) 1,000 mcg/mL injection solution RxNorm: 457743 1Milliliter 01/30/2018 No longer Active cyanocobalamin (vit B-12) 1,000 mcg/mL injection solution RxNorm: 337997 1Milliliter 01/01/2018 No longer Active cyanocobalamin (vit B-12) 1,000 mcg/mL injection solution RxNorm: 756221 1Milliliter 11/28/2017 No longer Active cyanocobalamin (vit B-12) 1,000 mcg/mL injection solution RxNorm: 563162 1Milliliter 10/24/2017 No longer Active cyanocobalamin (vit B-12) 1,000 mcg/mL injection solution RxNorm: 781421 1Milliliter 09/26/2017 No longer Active cyanocobalamin (vit B-12) 1,000 mcg/mL injection solution RxNorm: 950773 1Milliliter 08/10/2017 No longer Active cyanocobalamin (vit B-12) 1,000 mcg/mL injection solution RxNorm: 107031 1Milliliter 07/18/2017 No longer Active cyanocobalamin (vit B-12) 1,000 mcg/mL injection solution RxNorm: 964272 1Milliliter 05/16/2017 No longer Active cyanocobalamin (vit B-12) 1,000 mcg/mL injection solution RxNorm: 652992 1Milliliter 03/14/2017 No longer Active Kenalog 40 mg/mL suspension for injection RxNorm: 9820941 1Milliliter 01/12/2017 No longer Active ceftriaxone 500 mg solution for injection RxNorm: 3478321 1Milliliter 01/12/2017 No longer Active cyanocobalamin (vit B-12) 1,000 mcg/mL injection solution RxNorm: 741674 1Milliliter 01/12/2017 No longer Active cyanocobalamin (vit B-12) 1,000 mcg/mL injection solution RxNorm: 716056 1Milliliter 10/27/2016 No longer Active cyanocobalamin (vit B-12) 1,000 mcg/mL injection solution RxNorm: 926900 Milliliter 07/27/2016 No longer Active cyanocobalamin (vit B-12) 1,000 mcg/mL injection solution RxNorm: 081741 1Milliliter 04/26/2016 No longer Active Immunizations Vaccine [...] Code Item Item Code Result Date B12 Usw923 B12 453.00 pg/ml 11/15/2018 Comp Metabolic Kdr431 NA 139 mEq/L 11/15/2018 Comp Metabolic Xyf388 K 4.5 mEq/L 11/15/2018 Comp Metabolic Dok083 CL 105 mEq/L 11/15/2018 Comp Metabolic Gst549 CO2 28.0 mEq/L 11/15/2018 Comp Metabolic Trh739 ANION GAP 11 11/15/2018 Comp Metabolic Viw363 GLUCOSE 96 mg/dL 11/15/2018 Comp Metabolic Rbl241 Creat 1.1 mg/dL 11/15/2018 Comp Metabolic Cdo649 eGFR 68 ml/min/1.73m2 11/15/2018 Comp Metabolic Kex684 BUN 18 mg/dL 11/15/2018 Comp Metabolic Hzi505 B/C Ratio 16.5 Ratio 11/15/2018 Comp Metabolic Wkw407 CALCIUM 9.3 mg/dL 11/15/2018 Comp Metabolic Yzz639 ALK PHOS 72 U/L 11/15/2018 Comp Metabolic Nny658 AST(SGOT) 21 U/L 11/15/2018 Comp Metabolic Hol791 ALT(SGPT) 13 U/L 11/15/2018 Comp Metabolic Fdw286 BILI T 0.8 mg/dL 11/15/2018 Comp Metabolic Vaf037 ALBUMIN 3.9 g/dL 11/15/2018 Comp Metabolic Xpd248 TPRO 6.5 g/dL 11/15/2018 Comp Metabolic Poa158 GLOB 2.6 g/dL 11/15/2018 Comp Metabolic Unf618 A/G Ratio 1.5 Ratio 11/15/2018 Comp Metabolic Rle958 Osmo 279 mOsmo 11/15/2018 Tsh Ord6 TSH [...] 33.1 pg 11/15/2018 Cbc With Differential Ord2 [place]% 12.6 % 11/15/2018 Cbc With Differential Ord2 [...] 3.56 K/ul 11/15/2018 Cbc With Differential Ord2 [place] ABS# 1.2 K/ul 11/15/2018 Cbc With Differential [...] 32.9 pg 11/28/2017 Cbc With Differential Ord2 [place]% 12.6 % 11/28/2017 Cbc With Differential Ord2 [...] 2.87 K/ul 11/28/2017 Cbc With Differential Ord2 [place] ABS# 1.1 K/ul 11/28/2017 Cbc With Differential Ord2 Eos ABS# 0.3 K/ul 11/28/2017 Cbc With Differential Ord2 Baso ABS# 0.0 K/ul 11/28/2017 B12 Ddd093 B12 >1500.00 pg/ml 11/28/2017 Comp Metabolic Lyw813 NA 139 mEq/L 11/28/2017 Comp Metabolic Vgd605 K 5.2 mEq/L 11/28/2017 Comp Metabolic Rgs369 CL 106 mEq/L 11/28/2017 Comp Metabolic Zbj484 CO2 28.0 mEq/L 11/28/2017 Comp Metabolic Pis889 ANION GAP 10 11/28/2017 Comp Metabolic Boi859 GLUCOSE 89 mg/dL 11/28/2017 Comp Metabolic Akh848 Creat 1.1 mg/dL 11/28/2017 Comp Metabolic Lbj276 eGFR 66 ml/min/1.73m2 11/28/2017 Comp Metabolic Ukr763 BUN 18 mg/dL 11/28/2017 Comp Metabolic Jcb341 B/C Ratio 16.1 Ratio 11/28/2017 Comp Metabolic Gqm902 CALCIUM 9.2 mg/dL 11/28/2017 Comp Metabolic Eoz712 ALK PHOS 89 U/L 11/28/2017 Comp Metabolic Rgq140 AST(SGOT) 22 U/L 11/28/2017 Comp Metabolic Qzo235 ALT(SGPT) 15 U/L 11/28/2017 Comp Metabolic Cmk255 BILI T 0.6 mg/dL 11/28/2017 Comp Metabolic Uuk425 ALBUMIN 3.9 g/dL 11/28/2017 Comp Metabolic Nph912 TPRO 6.5 g/dL 11/28/2017 Comp Metabolic Fdr574 GLOB 2.6 g/dL 11/28/2017 Comp Metabolic Cav931 A/G Ratio 1.5 Ratio 11/28/2017 Comp Metabolic Yfo070 Osmo 279 mOsmo 11/28/2017 Ferritin Ord22 FERRITIN [...] 33.7 pg 07/18/2017 Cbc With Differential Ord2 [place]% 12.3 % 07/18/2017 Cbc With Differential Ord2 [...] 2.90 K/ul 07/18/2017 Cbc With Differential Ord2 [place] ABS# 1.1 K/ul 07/18/2017 Cbc With Differential Ord2 Eos ABS# 0.2 K/ul 07/18/2017 Cbc With Differential Ord2 Baso ABS# 0.0 K/ul 07/18/2017 Comp Metabolic Mbp275 NA 140 mEq/L 07/18/2017 Comp Metabolic Ofg020 K 4.6 mEq/L 07/18/2017 Comp Metabolic Izo567 CL 105 mEq/L 07/18/2017 Comp Metabolic Fgt593 CO2 29.0 mEq/L 07/18/2017 Comp Metabolic Mlc028 ANION GAP 11 07/18/2017 Comp Metabolic Qcp606 GLUCOSE 96 mg/dL 07/18/2017 Comp Metabolic Ryo470 Creat 1.0 mg/dL 07/18/2017 Comp Metabolic Qjy126 eGFR 73 ml/min/1.73m2 07/18/2017 Comp Metabolic Ofn946 BUN 12 mg/dL 07/18/2017 Comp Metabolic Leh088 B/C Ratio 11.7 Ratio 07/18/2017 Comp Metabolic Dkx013 CALCIUM 9.2 mg/dL 07/18/2017 Comp Metabolic Ner041 ALK PHOS 74 U/L 07/18/2017 Comp Metabolic Amt937 AST(SGOT) 29 U/L 07/18/2017 Comp Metabolic Uny493 ALT(SGPT) 16 U/L 07/18/2017 Comp Metabolic Tdg744 BILI T 0.7 mg/dL 07/18/2017 Comp Metabolic Rkn634 ALBUMIN 3.7 g/dL 07/18/2017 Comp Metabolic Woz752 TPRO 6.5 g/dL 07/18/2017 Comp Metabolic Bte132 GLOB 2.8 g/dL 07/18/2017 Comp Metabolic Wiv880 A/G Ratio 1.3 Ratio 07/18/2017 Comp Metabolic Joc046 Osmo 279 mOsmo 07/18/2017 Iron Ord72 Iron 114 ug/dl 07/18/2017 B12 Ozw564 B12 233.00 pg/ml 07/18/2017 Tsh Ord6 hTSH [...] 33.3 pg 12/13/2016 Cbc With Differential Ord2 [place]% 17.9 % 12/13/2016 Cbc With Differential Ord2 [...] 2.71 K/ul 12/13/2016 Cbc With Differential Ord2 [place] ABS# 1.7 K/ul 12/13/2016 Cbc With Differential Ord2 Eos ABS# 0.3 K/ul 12/13/2016 Cbc With Differential Ord2 Baso ABS# 0.0 K/ul 12/13/2016 Comp Metabolic Ori706 NA 136 mEq/L 12/13/2016 Comp Metabolic Hpv385 K 4.7 mEq/L 12/13/2016 Comp Metabolic Gip863 CL 102 mEq/L 12/13/2016 Comp Metabolic Btj155 CO2 26.0 mEq/L 12/13/2016 Comp Metabolic Kpu344 ANION GAP 13 12/13/2016 Comp Metabolic Lur163 GLUCOSE 87 mg/dL 12/13/2016 Comp Metabolic Osl233 Creat 0.9 mg/dL 12/13/2016 Comp Metabolic Gzt252 eGFR 83 ml/min/1.73m2 12/13/2016 Comp Metabolic Tko539 BUN 17 mg/dL 12/13/2016 Comp Metabolic Zye695 B/C Ratio 18.3 Ratio 12/13/2016 Comp Metabolic Yac100 CALCIUM 9.1 mg/dL 12/13/2016 Comp Metabolic Pep251 ALK PHOS 90 U/L 12/13/2016 Comp Metabolic Ncr144 AST(SGOT) 22 U/L 12/13/2016 Comp Metabolic Feb736 ALT(SGPT) 15 U/L 12/13/2016 Comp Metabolic Nvf751 BILI T 0.8 mg/dL 12/13/2016 Comp Metabolic Yas698 ALBUMIN 3.6 g/dL 12/13/2016 Comp Metabolic Bea247 TPRO 6.4 g/dL 12/13/2016 Comp Metabolic Fxn182 GLOB 2.9 g/dL 12/13/2016 Comp Metabolic Kcm134 A/G Ratio 1.2 Ratio 12/13/2016 Comp Metabolic Ors639 Osmo 273 mOsmo 12/13/2016 Lipid Ord30 CHOL 182 mg/dL 12/13/2016 Lipid Ord30 HDL 64.0 mg/dl 12/13/2016 Lipid Ord30 TRIG 62 mg/dL 12/13/2016 Lipid Ord30 LDL 106 mg/dL 12/13/2016 Lipid Ord30 C/HDL 2.8 Ratio 12/13/2016 Ferritin Ord22 FERRITIN 434.7 ng/mL 12/13/2016 B12 Vmh080 B12 247.00 pg/ml 12/13/2016 Tibc Ord40 Iron [...] 33.7 pg 04/27/2016 Cbc With Differential Ord2 [place]% 13.7 % 04/27/2016 Cbc With Differential Ord2 [...] 3.22 K/ul 04/27/2016 Cbc With Differential Ord2 [place] ABS# 1.2 K/ul 04/27/2016 Cbc With Differential Ord2 Eos ABS# 0.3 K/ul 04/27/2016 Cbc With Differential Ord2 Baso ABS# 0.0 K/ul 04/27/2016 Comp Metabolic Bqa218 NA 138 mEq/L 04/27/2016 Comp Metabolic Svh905 K 4.3 mEq/L 04/27/2016 Comp Metabolic Kob292 CL 104 mEq/L 04/27/2016 Comp Metabolic Zkp813 CO2 30.0 mEq/L 04/27/2016 Comp Metabolic Dbt446 ANION GAP 8 04/27/2016 Comp Metabolic Ore044 GLUCOSE 87 mg/dL 04/27/2016 Comp Metabolic Iws568 Creat 0.9 mg/dL 04/27/2016 Comp Metabolic Wkc407 eGFR 82 ml/min/1.73m2 04/27/2016 Comp Metabolic Dfy382 BUN 13 mg/dL 04/27/2016 Comp Metabolic Htp200 B/C Ratio 13.8 Ratio 04/27/2016 Comp Metabolic Css898 CALCIUM 9.0 mg/dL 04/27/2016 Comp Metabolic Skv316 ALK PHOS 62 U/L 04/27/2016 Comp Metabolic Zvc267 AST(SGOT) 24 U/L 04/27/2016 Comp Metabolic Yah008 ALT(SGPT) 15 U/L 04/27/2016 Comp Metabolic Glv817 BILI T 0.7 mg/dL 04/27/2016 Comp Metabolic Zmb769 ALBUMIN 3.6 g/dL 04/27/2016 Comp Metabolic Tys105 TPRO 6.1 g/dL 04/27/2016 Comp Metabolic Avw371 GLOB 2.5 g/dL 04/27/2016 Comp Metabolic Qer024 A/G Ratio 1.4 Ratio 04/27/2016 Comp Metabolic Axe945 Osmo 275 mOsmo 04/27/2016 B12 Mky470 B12 >1500.00 pg/ml 04/27/2016 Iron Ord72 Iron [...] 4: J3420 02/25/2019 THER/PROPH/DIAG INJ SC/IM CPT-4: 78893 02/25/2019 THER/PROPH/DIAG INJ SC/IM CPT-4: 20783 01/25/2019 VITAMIN B12 INJECTION CPT- 4: J3420 01/25/2019 THER/PROPH/DIAG INJ SC/IM CPT-4: 68365 12/27/2018 VITAMIN B12 INJECTION CPT- 4: J3420 12/27/2018 THER/PROPH/DIAG INJ SC/IM CPT-4: 25998 11/29/2018 VITAMIN B12 INJECTION CPT- 4: J3420 11/29/2018 THER/PROPH/DIAG INJ SC/IM CPT-4: 18181 10/29/2018 VITAMIN B12 INJECTION CPT- 4: J3420 10/29/2018 THER/PROPH/DIAG INJ SC/IM CPT-4: 70114 09/28/2018 VITAMIN B12 INJECTION CPT- 4: J3420 09/28/2018 THER/PROPH/DIAG INJ SC/IM CPT-4: 15093 08/30/2018 VITAMIN B12 INJECTION CPT- 4: J3420 08/30/2018 VITAMIN B12 INJECTION CPT- 4: J3420 07/31/2018 THER/PROPH/DIAG INJ SC/IM CPT-4: 60530 07/31/2018 THER/PROPH/DIAG INJ SC/IM CPT-4: 24953 07/02/2018 VITAMIN B12 INJECTION CPT- 4: J3420 07/02/2018 THER/PROPH/DIAG INJ SC/IM CPT-4: 92466 05/31/2018 ADMIN INFLUENZA VIRUS VAC CPT-4: G0008 05/31/2018 VITAMIN B12 INJECTION CPT- 4: J3420 05/31/2018 FLU VACC PRSV FREE INC ANTIG Formatting Model/CDA Sections, Assigned to/Mary Grace Rosado CPT-4: [id number] 05/31/2018 VITAMIN B12 INJECTION CPT- 4: J3420 05/03/2018 THER/PROPH/DIAG INJ SC/IM CPT-4: 49817 05/03/2018 THER/PROPH/DIAG INJ SC/IM CPT-4: 40451 04/04/2018 VITAMIN B12 INJECTION CPT- 4: J3420 04/04/2018 THER/PROPH/DIAG INJ SC/IM CPT-4: 35945 03/05/2018 VITAMIN B12 INJECTION CPT- 4: J3420 03/05/2018 VITAMIN B12 INJECTION CPT- 4: J3420 01/30/2018 THER/PROPH/DIAG INJ SC/IM CPT-4: 00418 01/30/2018 THER/PROPH/DIAG INJ SC/IM CPT-4: 32697 01/01/2018 VITAMIN B12 INJECTION CPT- 4: J3420 01/01/2018 PPPS, SUBSEQ VISIT CPT- 4: G0439 12/18/2017 THER/PROPH/DIAG INJ SC/IM CPT-4: 18472 11/28/2017 VITAMIN B12 INJECTION CPT- 4: J3420 11/28/2017 THER/PROPH/DIAG INJ SC/IM CPT-4: 92114 10/24/2017 VITAMIN B12 INJECTION CPT- 4: J3420 10/24/2017 THER/PROPH/DIAG INJ SC/IM CPT-4: 48787 09/26/2017 VITAMIN B12 INJECTION CPT- 4: J3420 09/26/2017 THER/PROPH/DIAG INJ SC/IM CPT-4: 26717 08/10/2017 VITAMIN B12 INJECTION CPT- 4: J3420 08/10/2017 THER/PROPH/DIAG INJ SC/IM CPT-4: 04264 07/18/2017 VITAMIN B12 INJECTION CPT- 4: J3420 07/18/2017 THER/PROPH/DIAG INJ SC/IM CPT-4: 26141 05/16/2017 VITAMIN B12 INJECTION CPT- 4: J3420 05/16/2017 THER/PROPH/DIAG INJ SC/IM CPT-4: 30782 03/14/2017 VITAMIN B12 INJECTION CPT- 4: J3420 03/14/2017 TRIAMCINOLONE ACET INJ NOS CPT-4: J3301 01/12/2017 ROCEPHIN, PER 250 MG CPT- 4: J0696 01/12/2017 VITAMIN B12 INJECTION CPT- 4: J3420 01/12/2017 THER/PROPH/DIAG INJ SC/IM CPT-4: 05810 01/12/2017 PPPS, SUBSEQ VISIT CPT- 4: G0439 12/12/2016 PNEUMOCOCCAL VACC [address]: [id number] CPT-4: 08845 12/12/2016 ADMIN PNEUMOCOCCAL VACCINE SNOMED CT: 82427521 CPT-4: G0009 12/12/2016 THER/PROPH/DIAG INJ SC/IM CPT-4: 10448 10/27/2016 VITAMIN B12 INJECTION CPT- 4: J3420 10/27/2016 THER/PROPH/DIAG INJ SC/IM CPT-4: 05756 07/27/2016 VITAMIN B12 INJECTION CPT- 4: J3420 07/27/2016 THER/PROPH/DIAG INJ SC/IM CPT-4: 26325 04/26/2016 VITAMIN B12 INJECTION CPT- 4: J3420 04/26/2016 Vital Signs Date Vital 01/08/2019 Blood Pressure 1: 138/82 Code: 8480-6 BMI: 26.0 Code: 11844-9 Heart Rate 1: 66 bpm Height: 5'7" SpO2: 97% Weight: 166 lbs 11/19/2018 Blood Pressure 1: 128/76 Code: 8480-6 BMI: 25.8 Code: 91284-3 Heart Rate 1: 76 bpm Height: 5'7" SpO2: 98% Weight: 165 lbs 08/15/2018 Blood Pressure 1: 144/66 Code: 8480-6 BMI: 25.1 Code: 33687-8 Heart Rate 1: 75 bpm Height: 5'7" SpO2: 98% Weight: 160 lbs 05/23/2018 Blood Pressure 1: 158/64 Code: 8480-6 BMI: 24.7 Code: 85519-8 Heart Rate 1: 76 bpm Height: 5'7" SpO2: 96% Temperature: 36.7 (C) / 98.1 (F) Weight: 158 lbs 05/03/2018 Blood Pressure 1: 122/72 Code: 8480-6 BMI: 25.1 Code: 32625-7 Heart Rate 1: 74 bpm Height: 5'7" SpO2: 97% Weight: 160 lbs 01/31/2018 Blood Pressure 1: 137/77 Code: 8480-6 Blood Pressure 2: 138/68 Code: 8480-6 Heart Rate 1: 67 bpm SpO2: 98% 01/30/2018 Blood Pressure 1: 138/66 Code: 8480-6 BMI: 25.1 Code: 95654-8 Heart Rate 1: 76 bpm Height: 5'7" SpO2: 94% Weight: 160 lbs 12/18/2017 Blood Pressure 1: 152/88 Code: 8480-6 BMI: 25.8 Code: 58686-5 Heart Rate 1: 68 bpm Height: 5'7" SpO2: 96% Weight: 165 lbs 11/28/2017 Blood Pressure 1: 150/76 Code: 8480-6 BMI: 25.2 Code: 10619-4 Heart Rate 1: 78 bpm Height: 5'7" SpO2: 98% Weight: 161 lbs 10/10/2017 Blood Pressure 1: 156/76 Code: 8480-6 BMI: 24.7 Code: 79358-2 Heart Rate 1: 71 bpm Height: 5'7" SpO2: 98% Weight: 158 lbs 09/26/2017 Blood Pressure 1: 162/82 Code: 8480-6 BMI: 24.7 Code: 12112-5 Heart Rate 1: 69 bpm Height: 5'7" SpO2: 99% Weight: 158 lbs 08/16/2017 Blood Pressure 1: 154/82 Code: 8480-6 BMI: 24.1 Code: 01965-0 Heart Rate 1: 58 bpm Height: 5'7" SpO2: 96% Weight: 154 lbs 07/18/2017 Blood Pressure 1: 152/88 Code: 8480-6 BMI: 25.2 Code: 11016-3 Heart Rate 1: 72 bpm Height: 5'7" SpO2: 98% Weight: 161 lbs 05/16/2017 Blood Pressure 1: 136/78 Code: 8480-6 BMI: 24.8 Code: 99440-1 Heart Rate 1: 71 bpm Height: 5'7" SpO2: 96% Weight: 158 lbs 8 oz 03/14/2017 Blood Pressure 1: 142/74 Code: 8480-6 BMI: 23.8 Code: 43764-0 Heart Rate 1: 69 bpm Height: 5'7" SpO2: 94% Weight: 152 lbs 01/12/2017 Blood Pressure 1: 156/90 Code: 8480-6 BMI: 23.4 Code: 73110-3 Heart Rate 1: 90 bpm Height: 5'7" SpO2: 97% Temperature: 37.4 (C) / 99.3 (F) Weight: 149 lbs 8 oz 12/12/2016 Blood Pressure 1: 140/78 Code: 8480-6 BMI: 24.3 Code: 13904-1 Heart Rate 1: 73 bpm Height: 5'7" SpO2: 96% Waist Measure (cm): 90 cm Weight: 155 lbs 12/08/2016 Blood Pressure 1: 148/84 Code: 8480-6 BMI: 24.3 Code: 62381-9 Heart Rate 1: 80 bpm Height: 5'7" SpO2: 96% Weight: 155 lbs 11/03/2016 Blood Pressure 1: 156/84 Code: 8480-6 Blood Pressure 2: 155/94 Code: 8480-6 BMI: 24.3 Code: 37527-5 Heart Rate 1: 81 bpm Height: 5'7" SpO2: 98% Weight: 155 lbs 10/06/2016 Blood Pressure 1: 175/95 Code: 8480-6 Heart Rate 1: 77 bpm Respiratory Rate: 16 bpm SpO2: 98% Temperature: 36.4 (C) / 97.5 (F) Weight: 157 lbs 09/06/2016 Blood Pressure 1: 136/80 Code: 8480-6 BMI: 24.1 Code: 90158-0 Heart Rate 1: 82 bpm Height: 5'8" SpO2: 97% Weight: 156 lbs 08/23/2016 Blood Pressure 1: 160/80 Code: 8480-6 BMI: 24.4 Code: 73654-4 Heart Rate 1: 88 bpm Height: 5'8" SpO2: 95% Weight: 158 lbs 04/26/2016 Blood Pressure 1: 156/74 Code: 8480-6 BMI: 24.5 Code: 12952-9 Heart Rate 1: 70 bpm Height: 5'8" [...] data Encounters Encounter Performer Location Codes Date ([id number]) 51892 EST. PATIENT, LEVEL III Diagnosis: Sebaceous cyst[ICD10: L72.3] [facility] CPT-4: 70452 01/08/2019 ([id number]) 61414 EST. PATIENT, LEVEL IV Diagnosis: Essential (primary) hypertension[ICD10: I10] Diagnosis: Chronic pain syndrome[ICD10: G89.4] Diagnosis: Epigastric pain[ICD10: R10.13] Andree Paris MD, [facility] CPT-4: 93089 11/19/2018 ([id number]) 37659 EST. PATIENT, LEVEL III Diagnosis: Essential (primary) hypertension[ICD10: I10] Andree Paris MD, [facility] CPT-4: 38200 08/15/2018 [id number] EST. PATIENT, LEVEL III Diagnosis: Dysphagia, pharyngoesophageal phase[ICD10: R13.14] Teresa Paris MD, [facility] CPT-4: 15423 05/23/2018 ([id number]) 08684 EST. PATIENT, LEVEL IV Diagnosis: Essential (primary) hypertension[ICD10: I10] Diagnosis: Chronic pain syndrome[ICD10: G89.4] Diagnosis: Vitamin B12 deficiency anemia due to intrinsic factor deficiency[ICD10: D51.0] Diagnosis: Other iron deficiency anemias[ICD10: D50.8] Diagnosis: Slow transit constipation[ICD10: K59.01] Andree Paris MD, [facility] CPT-4: 83136 05/03/2018 ([id number]) Miscellaneous no charge Diagnosis: Essential (primary) hypertension[ICD10: I10] Teresa Paris MD, [facility] CPT-4: 84781 01/31/2018 ([id number]) 08283 EST. PATIENT, LEVEL IV Diagnosis: Essential (primary) hypertension[ICD10: I10] Diagnosis: Chronic pain syndrome[ICD10: G89.4] Andree Paris MD, [facility] CPT- 4: 24845 01/30/2018 ([id number]) 10329 EST. PATIENT, LEVEL IV Diagnosis: Essential (primary) hypertension[ICD10: I10] Diagnosis: Chronic pain syndrome[ICD10: G89.4] Diagnosis: Vitamin B12 deficiency anemia due to intrinsic factor deficiency[ICD10: D51.0] Diagnosis: Iron deficiency anemia, unspecified[ICD10: D50.9] Ana Paris MD, [facility] CPT-4: 82385 11/28/2017 [id number] EST. PATIENT, LEVEL IV Diagnosis: Essential (primary) hypertension[ICD10: I10] Diagnosis: Slow transit constipation[ICD10: K59.01] Diagnosis: Chronic pain syndrome[ICD10: G89.4] Teresa Paris MD, [facility] CPT- 4: 81663 10/10/2017 93294 EST. PATIENT, LEVEL IV Diagnosis: Vitamin B12 deficiency anemia due to intrinsic factor deficiency[ICD10: D51.0] Diagnosis: Essential (primary) hypertension[ICD10: I10] Diagnosis: Chronic pain syndrome[ICD10: G89.4] Teresa Paris MD, [facility] CPT- 4: 86731 09/26/2017 [id number] EST. PATIENT, LEVEL III Diagnosis: Dysphagia, pharyngoesophageal phase[ICD10: R13.14] Teresa Paris MD, [facility] CPT-4: 25514 08/16/2017 ([id number]) 13857 EST. PATIENT, LEVEL IV Diagnosis: Essential (primary) hypertension[ICD10: I10] Diagnosis: Chronic pain syndrome[ICD10: G89.4] Diagnosis: Vitamin B12 deficiency anemia due to intrinsic factor deficiency[ICD10: D51.0] Diagnosis: Iron deficiency anemia, unspecified[ICD10: D50.9] Diagnosis: Dysphagia, pharyngoesophageal phase[ICD10: R13.14] Ana Paris MD, [facility] CPT-4: 06526 07/18/2017 ([id number]) 72287 EST. PATIENT, LEVEL III Diagnosis: Essential (primary) hypertension[ICD10: I10] Diagnosis: Chronic pain syndrome[ICD10: G89.4] Diagnosis: Vitamin B12 deficiency anemia due to intrinsic factor deficiency[ICD10: D51.0] Ana Paris MD, [facility] CPT-4: 13930 05/16/2017 ([id number]) 37185 EST. PATIENT, LEVEL III Diagnosis: Essential (primary) hypertension[ICD10: I10] Diagnosis: Chronic pain syndrome[ICD10: G89.4] Diagnosis: Vitamin B12 deficiency anemia due to intrinsic factor deficiency[ICD10: D51.0] Ana Paris MD, [facility] CPT-4: 17032 03/14/2017 ([id number]) 01213 EST. PATIENT, LEVEL III Diagnosis: Cough[ICD10: R05] Diagnosis: Acute bronchitis, unspecified[ICD10: J20.9] Diagnosis: Chronic pain syndrome[ICD10: G89.4] Diagnosis: Vitamin B12 deficiency anemia due to intrinsic factor deficiency[ICD10: D51.0] Ana Paris MD, [facility] CPT-4: 00875 01/12/2017 ([id number]) 30936 EST. PATIENT, LEVEL III Diagnosis: Essential (primary) hypertension[ICD10: I10] Diagnosis: Chronic pain syndrome[ICD10: G89.4] Ana Paris MD, [facility] CPT-4: 92392 12/08/2016 ([id number]) 48263 EST. PATIENT, LEVEL III Diagnosis: Essential (primary) hypertension[ICD10: I10] Ana Paris MD, [facility] CPT-4: 80114 11/03/2016 ([id number]) 45411 EST. PATIENT, LEVEL III Diagnosis: Essential (primary) hypertension[ICD10: I10] Ana Paris MD, [facility] CPT-4: 84192 10/06/2016 ([id number]) 86301 EST. PATIENT, LEVEL III Diagnosis: Essential (primary) hypertension[ICD10: I10] Ana Paris MD, [facility] CPT-4: 75801 09/06/2016 ([id number]) 11142 EST. PATIENT, LEVEL III Diagnosis: Essential (primary) hypertension[ICD10: I10] Ana Paris MD, [facility] CPT-4: 14495 08/23/2016 ([id number]) OFFICE VISIT, NEW - LEVEL 4 Diagnosis: Noninfective gastroenteritis and colitis, unspecified[ICD10: K52.9] Diagnosis: Vitamin B12 deficiency anemia due to intrinsic factor deficiency[ICD10: D51.0] Diagnosis: Iron deficiency anemia, unspecified[ICD10: D50.9] Diagnosis: Chalazion left upper eyelid[ICD10: H00.14] Diagnosis: Elevated blood-pressure reading, without diagnosis of hypertension[ICD10: R03.0] Andree Paris MD, [facility] CPT-4: 15748 04/26/2016 Plan of Care Planned Activity Notes Codes Status Date Patient Education: Patient Medication Summary Completed 02/25/2019 [...] of plan. 01/08/2019 [facility] [phone] [phone] [place] (30 min) Complex 01/08/2019 Patient Education: Patient [...] over-medication. 11/19/2018 [phone] [place] (15 min) Moderate 11/19/2018 Patient Education: [...] his amlodipine 08/15/2018 Appointment: Andree Paris WPtel: [phone] [facility] [place] (15 min) Moderate 08/15/2018 Patient Education: Patient [...] plan. 05/23/2018 Appointment: Teresa Bardales WPtel: [phone] [phone] (15 min) Moderate 05/23/2018 Patient Education: Patient [...] current management. 05/03/2018 App[facility]ment: [phone] [place] (15 min) Moderate 05/03/2018 Patient Education: [...] over-medication. 01/30/2018 [phone] (15 min) Moderate 01/30/2018 Patient Education: [...] concerns. 12/18/2017 Appointment: Ana Pedraza WPtel: [phone] [phone] [facility] - Annual Wellness Visit 12/18/2017 Patient Education: [...] labs 11/28/2017 Appointment: Ana Pedraza WPtel: [phone] [phone] (30 min) Complex 11/28/2017 Patient Education: Patient [...] this regimen. 10/10/2017 Appointment: Teresa Bardales WPtel: [phone] (30 min) Complex 10/10/2017 Patient Education: [...] of over-medication. 09/26/2017 Appointment: Teresa Bardales WPtel: [phone] (30 min) Complex 09/26/2017 Patient Education: Patient Medication Summary Completed 09/26/2017 Appointment: Teresa Bardales WPtel: [address] [place], [place] [phone] (30 min) Complex 09/19/2017 Referral: External, Ordering Provider Referral Appointment Confirmed 08/17/2017 Visit Plan: Dysphagia - worsening since yesterday - will refer to Dr. Harper for possible EGD - pt is to notify clinic if symptoms do not improve, if they worsen, or with any acute changes, questions, or concerns. 08/16/2017 Appointment: Teresa Bardales WPtel: [address] [place], [place] [phone] (30 min) Complex 08/16/2017 Patient Education: Patient Medication Summary Completed 08/16/2017 Care Plan: Referral Order SNOMED-CT : [id number] Pending 08/16/2017 Appointment: Injection 08/10/2017 Patient Education: [...] today first 07/18/2017 Appointment: [facility] Pedraza WPtel[phone] (30 min) Complex 07/18/2017 Patient Education: Patient [...] of over-medication. 05/16/2017 Appointment: [facility] Pedraza WPtel[phone] (30 min) Complex 05/16/2017 Patient Education: Patient [...] of over-medication. 03/14/2017 Appointment: Ana Pedraza WPtel: [address] [place] [phone] (30 min) Complex 03/14/2017 Patient Education: Patient [...] over-medication. 01/12/2017 Appointment: Ana Pedraza WPtel: [phone] (30 min) Complex 01/12/2017 Patient Education: [...] care surrogate. 12/12/2016 Appointment: Ana Pedraza WPtel: [phone] [facility] - Annual Wellness Visit 12/12/2016 Patient Education: [...] of over-medication. 12/08/2016 Appointment: Ana Pedraza WPtel: [phone] (30 min) Complex 12/08/2016 Patient Education: Patient [...] acute concerns. 11/03/2016 Appointment: Ana Pedraza WPtel: [phone] (30 min) Complex 11/03/2016 Patient Education: Patient [...] concerns. 10/06/2016 Appointment: Ana Pedraza WPtel: [phone] [phone] (30 min) Complex 10/06/2016 Patient Education: [...] acute concerns. 09/06/2016 Appointment: Ana Pedraza WPtel: [phone] (30 min) Complex 09/06/2016 Patient Education: [...] concerns. 08/23/2016 Appointment: Ana Pedraza WPtel: [phone] [phone] (15 min) Moderate 08/23/2016 Patient Education: Patient [...] gentamycin. 04/26/2016 [facility]ment: [phone] [facility] 04/26/2016 Patient Education: Patient [...]
--- OUTSIDE RECORDS SUMMARY | 2019-04-03 14:03 | XMS REPORT | CCD ---
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 Phone PP Unavailable CCM Unavailable Summary Purpose Interface Exchange Insurance Providers Payer name Policy type / Coverage type Covered green party ID Effective Begin Date Effective End Date WPS Medicare Part B Medicare Part B [id number] Unknown Unknown FOR LIFE WPS Medicare Part B [id number] Unknown Unknown Family history Father Diagnosis Age At Onset No Known Diseases N/A Mother Diagnosis Age At Onset No Known Diseases N/A Social History Social History Element Codes Description Effective Dates Marital status Unknown 04/26/2016 Number of children Unknown 3 04/26/2016 Employment Unknown Retired 04/26/[address]: 7109605 Former smoker Quit 1968 04/26/[address]: 807695 Currently drinks alcohol 04/26/2016 Has the patient [...] morphine ER 30 mg tablet,extended release RxNorm: 369353 1 Tablet(s) PO daily 02/25/2019 03/26/2019 Active amlodipine 5 mg tablet RxNorm: 182182 1 Tablet(s) PO QPM 02/25/2019 01/20/2020 Active lisinopril 20 mg tablet RxNorm: 957296 1 Tablet(s) PO BID 02/25/2019 01/20/2020 Active morphine ER 30 mg tablet,extended release RxNorm: 804722 1 Tablet(s) PO daily 01/25/2019 02/23/2019 Inactive cyanocobalamin (vit B-12) 1,000 mcg/mL injection solution RxNorm: 673715 Milliliter(s) Inj 01/25/2019 01/25/2019 Inactive doxycycline hyclate 100 mg tablet RxNorm: 0338936 1 Tablet(s) PO BID 01/08/2019 01/14/2019 Inactive cyanocobalamin (vit B-12) 1,000 mcg/mL injection solution RxNorm: 395168 Milliliter(s) Inj 12/27/2018 12/27/2018 Inactive morphine ER 30 mg tablet,extended release RxNorm: 694368 1 Tablet(s) PO daily 12/27/2018 01/24/2019 Inactive cyanocobalamin (vit B-12) 1,000 mcg/mL injection solution RxNorm: 775842 Milliliter(s) Inj 11/29/2018 11/29/2018 Inactive morphine ER 30 mg tablet,extended release RxNorm: 623756 1 Tablet(s) PO daily 10/29/2018 11/27/2018 Inactive cyanocobalamin (vit B-12) 1,000 mcg/mL injection solution RxNorm: 662661 Milliliter(s) Inj 10/29/2018 10/29/2018 Inactive cyanocobalamin (vit B-12) 1,000 mcg/mL injection solution RxNorm: 936956 Milliliter(s) Inj 09/28/2018 09/28/2018 Inactive morphine ER 30 mg tablet,extended release RxNorm: 377750 1 Tablet(s) PO daily 09/28/2018 10/27/2018 Inactive morphine ER 30 mg tablet,extended release RxNorm: 877434 1 Tablet(s) PO daily 08/30/2018 09/27/2018 Inactive cyanocobalamin (vit B-12) 1,000 mcg/mL injection solution RxNorm: 289160 Milliliter(s) Inj 08/30/2018 08/30/2018 Inactive cyanocobalamin (vit B-12) 1,000 mcg/mL injection solution RxNorm: 763013 Milliliter(s) Inj 07/31/2018 07/31/2018 Inactive morphine ER 30 mg tablet,extended release RxNorm: 489383 1 Tablet(s) PO daily 07/31/2018 08/29/2018 Inactive amlodipine 5 mg tablet RxNorm: 748714 1 Tablet(s) PO QPM 07/11/2018 01/06/2019 Inactive cyanocobalamin (vit B-12) 1,000 mcg/mL injection solution RxNorm: 553379 1 Milliliter(s) Inj 07/02/2018 07/02/2018 Inactive morphine ER 30 mg tablet,extended release RxNorm: 652096 1 Tablet(s) PO daily 07/02/2018 07/30/2018 Inactive morphine ER 30 mg tablet,extended release RxNorm: 464127 1 Tablet(s) PO daily 05/31/2018 06/29/2018 Inactive cyanocobalamin (vit B-12) 1,000 mcg/mL injection solution RxNorm: 255818 Milliliter(s) Inj 05/31/2018 05/31/2018 Inactive Protonix 40 mg tablet,delayed release RxNorm: 482867 1 Tablet(s) PO daily 05/23/2018 06/21/2018 Inactive Carafate 1 gram tablet RxNorm: 773748 1 Tablet(s) PO AC & HS as needed 05/23/2018 06/21/2018 Inactive cyanocobalamin (vit B-12) 1,000 mcg/mL injection solution RxNorm: 309167 1 Milliliter(s) Inj 05/03/2018 05/03/2018 Inactive morphine ER 30 mg tablet,extended release RxNorm: 892398 1 Tablet(s) PO daily 04/04/2018 05/03/2018 Inactive cyanocobalamin (vit B-12) 1,000 mcg/mL injection solution RxNorm: 540805 1 Milliliter(s) Inj 04/04/2018 04/04/2018 Inactive cyanocobalamin (vit B-12) 1,000 mcg/mL injection solution RxNorm: 425142 1 Milliliter(s) Inj 03/05/2018 03/05/2018 Inactive morphine ER 30 mg tablet,extended release RxNorm: 634530 1 Tablet(s) PO daily 03/05/2018 04/03/2018 Inactive cyanocobalamin (vit B-12) 1,000 mcg/mL injection solution RxNorm: 671670 1 Milliliter(s) Inj 01/30/2018 01/30/2018 Inactive cyanocobalamin (vit B-12) 1,000 mcg/mL injection solution RxNorm: 970074 1 Milliliter(s) Inj 01/01/2018 01/01/2018 Inactive morphine ER 30 mg tablet,extended release RxNorm: 725336 1 Tablet(s) PO daily 01/01/2018 01/30/2018 Inactive amlodipine 5 mg tablet RxNorm: 529146 1 Tablet(s) PO QPM 12/18/2017 06/15/2018 Inactive lisinopril 20 mg tablet RxNorm: 097026 1 Tablet(s) PO BID 12/18/2017 12/12/2018 Inactive cyanocobalamin (vit B-12) 1,000 mcg/mL injection solution RxNorm: 523383 1 Milliliter(s) Inj 11/28/2017 11/28/2017 Inactive morphine ER 30 mg tablet,extended release RxNorm: 794638 1 Tablet(s) PO daily 11/28/2017 12/27/2017 Inactive morphine ER 30 mg tablet,extended release RxNorm: 057078 1 Tablet(s) PO daily 11/09/2017 11/27/2017 Inactive cyanocobalamin (vit B-12) 1,000 mcg/mL injection solution RxNorm: 437163 1 Milliliter(s) Inj 10/24/2017 10/24/2017 Inactive morphine ER 30 mg tablet,extended release RxNorm: 290009 1 Tablet(s) PO daily 10/10/2017 11/08/2017 Inactive hydrochlorothiazide 25 mg tablet RxNorm: 358653 1 Tablet(s) PO daily 10/10/2017 11/08/2017 Inactive cyanocobalamin (vit B-12) 1,000 mcg/mL injection solution RxNorm: 717134 1 Milliliter(s) Inj 09/26/2017 09/26/2017 Inactive hydrochlorothiazide 12.5 mg tablet RxNorm: 435189 1 Tablet(s) PO daily 09/26/2017 10/25/2017 Inactive morphine ER 30 mg tablet,extended release RxNorm: 409145 1 Tablet(s) PO daily 09/12/2017 10/09/2017 Inactive cyanocobalamin (vit B-12) 1,000 mcg/mL injection solution RxNorm: 765738 1 Milliliter(s) Inj 08/10/2017 08/10/2017 Inactive morphine ER 30 mg tablet,extended release RxNorm: 287870 1 Tablet(s) PO daily 08/10/2017 09/08/2017 Inactive Vitamin B-12 1,000 mcg/mL injection solution RxNorm: 608062 1 Milliliter(s) Inj month 07/21/2017 No Stop Date Active B12 INJECTIONS MONTHLY cyanocobalamin (vit B-12) 1,000 mcg/mL injection solution RxNorm: 851890 1 Milliliter(s) Inj 07/18/2017 07/18/2017 Inactive morphine ER 30 mg tablet,extended release RxNorm: 546285 1 Tablet(s) PO daily 07/13/2017 08/09/2017 Inactive morphine ER 30 mg tablet,extended release RxNorm: 008024 1 Tablet(s) PO daily 06/15/2017 07/12/2017 Inactive cyanocobalamin (vit B-12) 1,000 mcg/mL injection solution RxNorm: 326307 1 Milliliter(s) Inj 05/16/2017 05/16/2017 Inactive morphine ER 30 mg tablet,extended release RxNorm: 099465 1 Tablet(s) PO daily 04/13/2017 05/12/2017 Inactive cyanocobalamin (vit B-12) 1,000 mcg/mL injection solution RxNorm: 122550 1 Milliliter(s) Inj 03/14/2017 03/14/2017 Inactive morphine ER 30 mg tablet,extended release RxNorm: 978787 1 Tablet(s) PO daily 03/14/2017 04/12/2017 Inactive morphine ER 30 mg tablet,extended release RxNorm: 211561 1 Tablet(s) PO daily 02/13/2017 03/13/2017 Inactive Kenalog 40 mg/mL suspension for injection RxNorm: 0502382 1 Milliliter(s) Inj 01/12/2017 01/12/2017 Inactive cyanocobalamin (vit B-12) 1,000 mcg/mL injection solution RxNorm: 432917 1 Milliliter(s) Inj 01/12/2017 01/12/2017 Inactive Zithromax Z-[place] 250 mg tablet RxNorm: 136341 1 Tablet(s) PO UD 01/12/2017 01/16/2017 Inactive ceftriaxone 500 mg solution for injection RxNorm: 6594993 1 Milliliter(s) Inj 01/12/2017 01/12/2017 Inactive Vitamin B-12 1,000 mcg/mL injection solution RxNorm: 044511 1 Milliliter(s) Inj EVERY OTHER MONTH 01/04/2017 07/20/2017 Inactive lisinopril 20 mg tablet RxNorm: 520567 1 Tablet(s) PO BID 01/02/2017 12/17/2017 Inactive lisinopril 20 mg tablet RxNorm: 606849 1 Tablet(s) PO BID 12/12/2016 01/01/2017 Inactive morphine ER 30 mg tablet,extended release RxNorm: 846219 1 Tablet(s) PO daily 12/08/2016 01/06/2017 Inactive lisinopril 20 mg tablet RxNorm: 932609 1 Tablet(s) PO BID 11/03/2016 12/11/2016 Inactive morphine ER 30 mg tablet,extended release RxNorm: 774321 1 Tablet(s) PO daily 11/03/2016 12/02/2016 Inactive cyanocobalamin (vit B-12) 1,000 mcg/mL injection solution RxNorm: 762885 1 Milliliter(s) Inj 10/27/2016 10/27/2016 Inactive lisinopril 10 mg tablet RxNorm: 494141 1 Tablet(s) PO BID 10/06/2016 11/02/2016 Inactive lisinopril 10 mg tablet RxNorm: 184340 1 Tablet(s) PO daily 09/06/2016 10/05/2016 Inactive morphine ER 30 mg tablet,extended release RxNorm: 119407 1 Tablet(s) PO daily 08/18/2016 09/16/2016 Inactive cyanocobalamin (vit B-12) 1,000 mcg/mL injection solution RxNorm: 754725 Milliliter(s) Inj 07/27/2016 07/27/2016 Inactive morphine ER 30 mg tablet,extended release RxNorm: 253991 1 Tablet(s) PO daily 07/21/2016 08/17/2016 Inactive morphine ER 30 mg tablet,extended release RxNorm: 771747 1 Tablet(s) PO daily 06/20/2016 07/19/2016 Inactive morphine ER 30 mg tablet,extended release RxNorm: 715560 1 Tablet(s) PO daily 05/20/2016 06/19/2016 Inactive cyanocobalamin (vit B-12) 1,000 mcg/mL injection solution RxNorm: 978362 1 Milliliter(s) Inj 04/26/2016 04/26/2016 Inactive gentamicin 0.3 % eye drops RxNorm: 223212 2 Drop(s) OPH Q4H 04/26/2016 05/02/2016 Inactive Vitamin B-12 1,000 mcg/mL injection solution RxNorm: 992160 1 Milliliter(s) Inj EVERY 3 MONTHS No Start Date 01/03/2017 Inactive Claritin 10 mg tablet RxNorm: 929208 1 Tablet(s) PO daily No Start Date 07/17/2017 Inactive Venofer intravenous RxNorm: 05249 intravenous No Start Date 08/14/2018 Inactive morphine ER 30 mg tablet,extended release RxNorm: 139993 1 Tablet(s) PO daily No Start Date 04/25/2016 Inactive Medication Administered Medication Codes Instructions Start Date Status cyanocobalamin (vit B-12) 1,000 mcg/mL injection solution RxNorm: 796785 Milliliter 01/25/2019 No longer Active cyanocobalamin (vit B-12) 1,000 mcg/mL injection solution RxNorm: 378915 Milliliter 12/27/2018 No longer Active cyanocobalamin (vit B-12) 1,000 mcg/mL injection solution RxNorm: 957602 Milliliter 11/29/2018 No longer Active cyanocobalamin (vit B-12) 1,000 mcg/mL injection solution RxNorm: 730638 Milliliter 10/29/2018 No longer Active cyanocobalamin (vit B-12) 1,000 mcg/mL injection solution RxNorm: 476290 Milliliter 09/28/2018 No longer Active cyanocobalamin (vit B-12) 1,000 mcg/mL injection solution RxNorm: 549308 Milliliter 08/30/2018 No longer Active cyanocobalamin (vit B-12) 1,000 mcg/mL injection solution RxNorm: 131180 Milliliter 07/31/2018 No longer Active cyanocobalamin (vit B-12) 1,000 mcg/mL injection solution RxNorm: 973310 1Milliliter 07/02/2018 No longer Active cyanocobalamin (vit B-12) 1,000 mcg/mL injection solution RxNorm: 761657 Milliliter 05/31/2018 No longer Active cyanocobalamin (vit B-12) 1,000 mcg/mL injection solution RxNorm: 934450 1Milliliter 05/03/2018 No longer Active cyanocobalamin (vit B-12) 1,000 mcg/mL injection solution RxNorm: 217589 1Milliliter 04/04/2018 No longer Active cyanocobalamin (vit B-12) 1,000 mcg/mL injection solution RxNorm: 058487 1Milliliter 03/05/2018 No longer Active cyanocobalamin (vit B-12) 1,000 mcg/mL injection solution RxNorm: 744771 1Milliliter 01/30/2018 No longer Active cyanocobalamin (vit B-12) 1,000 mcg/mL injection solution RxNorm: 371986 1Milliliter 01/01/2018 No longer Active cyanocobalamin (vit B-12) 1,000 mcg/mL injection solution RxNorm: 568604 1Milliliter 11/28/2017 No longer Active cyanocobalamin (vit B-12) 1,000 mcg/mL injection solution RxNorm: 379159 1Milliliter 10/24/2017 No longer Active cyanocobalamin (vit B-12) 1,000 mcg/mL injection solution RxNorm: 382978 1Milliliter 09/26/2017 No longer Active cyanocobalamin (vit B-12) 1,000 mcg/mL injection solution RxNorm: 534325 1Milliliter 08/10/2017 No longer Active cyanocobalamin (vit B-12) 1,000 mcg/mL injection solution RxNorm: 133756 1Milliliter 07/18/2017 No longer Active cyanocobalamin (vit B-12) 1,000 mcg/mL injection solution RxNorm: 840229 1Milliliter 05/16/2017 No longer Active cyanocobalamin (vit B-12) 1,000 mcg/mL injection solution RxNorm: 334747 1Milliliter 03/14/2017 No longer Active Kenalog 40 mg/mL suspension for injection RxNorm: 6833029 1Milliliter 01/12/2017 No longer Active ceftriaxone 500 mg solution for injection RxNorm: 3952328 1Milliliter 01/12/2017 No longer Active cyanocobalamin (vit B-12) 1,000 mcg/mL injection solution RxNorm: 445410 1Milliliter 01/12/2017 No longer Active cyanocobalamin (vit B-12) 1,000 mcg/mL injection solution RxNorm: 456680 1Milliliter 10/27/2016 No longer Active cyanocobalamin (vit B-12) 1,000 mcg/mL injection solution RxNorm: 935120 Milliliter 07/27/2016 No longer Active cyanocobalamin (vit B-12) 1,000 mcg/mL injection solution RxNorm: 288751 1Milliliter 04/26/2016 No longer Active Immunizations Vaccine Codes Date Status Influenza CVX: 141 05/31/2018 completed Pneumococcal (Adult) CVX: 133 12/12/2016 completed Assessments Condition Codes Effective Dates 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-10: D51.0 ICD-9: 281.0 01/25/2019 Sebaceous cyst ICD-10: L72.3 ICD-9: 706.2 01/08/2019 [...] Code Item Item Code Result Date B12 Xue957 B12 453.00 pg/ml 11/15/2018 Comp Metabolic Qiq805 NA 139 mEq/L 11/15/2018 Comp Metabolic Fba389 K 4.5 mEq/L 11/15/2018 Comp Metabolic Fyp492 CL 105 mEq/L 11/15/2018 Comp Metabolic Zdq607 CO2 28.0 mEq/L 11/15/2018 Comp Metabolic Mcj108 ANION GAP 11 11/15/2018 Comp Metabolic Ote751 GLUCOSE 96 mg/dL 11/15/2018 Comp Metabolic Dcj599 Creat 1.1 mg/dL 11/15/2018 Comp Metabolic Fke935 eGFR 68 ml/min/1.73m2 11/15/2018 Comp Metabolic Dlu531 BUN 18 mg/dL 11/15/2018 Comp Metabolic Mdx558 B/C Ratio 16.5 Ratio 11/15/2018 Comp Metabolic Ogu008 CALCIUM 9.3 mg/dL 11/15/2018 Comp Metabolic Tdo897 ALK PHOS 72 U/L 11/15/2018 Comp Metabolic Man124 AST(SGOT) 21 U/L 11/15/2018 Comp Metabolic Ysh128 ALT(SGPT) 13 U/L 11/15/2018 Comp Metabolic Zka842 BILI T 0.8 mg/dL 11/15/2018 Comp Metabolic Tkr781 ALBUMIN 3.9 g/dL 11/15/2018 Comp Metabolic Yiw887 TPRO 6.5 g/dL 11/15/2018 Comp Metabolic Czw105 GLOB 2.6 g/dL 11/15/2018 Comp Metabolic Cul552 A/G Ratio 1.5 Ratio 11/15/2018 Comp Metabolic Kdp067 Osmo 279 mOsmo 11/15/2018 Tsh Ord6 TSH [...] 33.1 pg 11/15/2018 Cbc With Differential Ord2 [place]% 12.6 % 11/15/2018 Cbc With Differential Ord2 [...] 3.56 K/ul 11/15/2018 Cbc With Differential Ord2 [place] ABS# 1.2 K/ul 11/15/2018 Cbc With Differential [...] 32.9 pg 11/28/2017 Cbc With Differential Ord2 [place]% 12.6 % 11/28/2017 Cbc With Differential Ord2 [...] 2.87 K/ul 11/28/2017 Cbc With Differential Ord2 [place] ABS# 1.1 K/ul 11/28/2017 Cbc With Differential Ord2 Eos ABS# 0.3 K/ul 11/28/2017 Cbc With Differential Ord2 Baso ABS# 0.0 K/ul 11/28/2017 B12 Lev850 B12 >1500.00 pg/ml 11/28/2017 Comp Metabolic Zxk211 NA 139 mEq/L 11/28/2017 Comp Metabolic Ucg888 K 5.2 mEq/L 11/28/2017 Comp Metabolic Dla861 CL 106 mEq/L 11/28/2017 Comp Metabolic Qne618 CO2 28.0 mEq/L 11/28/2017 Comp Metabolic Bru198 ANION GAP 10 11/28/2017 Comp Metabolic Hwo639 GLUCOSE 89 mg/dL 11/28/2017 Comp Metabolic Xlb040 Creat 1.1 mg/dL 11/28/2017 Comp Metabolic Wgk332 eGFR 66 ml/min/1.73m2 11/28/2017 Comp Metabolic Hvo966 BUN 18 mg/dL 11/28/2017 Comp Metabolic Lpa690 B/C Ratio 16.1 Ratio 11/28/2017 Comp Metabolic Uvx922 CALCIUM 9.2 mg/dL 11/28/2017 Comp Metabolic Sou915 ALK PHOS 89 U/L 11/28/2017 Comp Metabolic Cvu104 AST(SGOT) 22 U/L 11/28/2017 Comp Metabolic Fhy302 ALT(SGPT) 15 U/L 11/28/2017 Comp Metabolic Xfb759 BILI T 0.6 mg/dL 11/28/2017 Comp Metabolic Zxx030 ALBUMIN 3.9 g/dL 11/28/2017 Comp Metabolic Yil668 TPRO 6.5 g/dL 11/28/2017 Comp Metabolic Dpq376 GLOB 2.6 g/dL 11/28/2017 Comp Metabolic Aje023 A/G Ratio 1.5 Ratio 11/28/2017 Comp Metabolic Big923 Osmo 279 mOsmo 11/28/2017 Ferritin Ord22 FERRITIN [...] 33.7 pg 07/18/2017 Cbc With Differential Ord2 [place]% 12.3 % 07/18/2017 Cbc With Differential Ord2 [...] 2.90 K/ul 07/18/2017 Cbc With Differential Ord2 [place] ABS# 1.1 K/ul 07/18/2017 Cbc With Differential Ord2 Eos ABS# 0.2 K/ul 07/18/2017 Cbc With Differential Ord2 Baso ABS# 0.0 K/ul 07/18/2017 Comp Metabolic Tcm858 NA 140 mEq/L 07/18/2017 Comp Metabolic Uyz383 K 4.6 mEq/L 07/18/2017 Comp Metabolic Vfn324 CL 105 mEq/L 07/18/2017 Comp Metabolic Pmp012 CO2 29.0 mEq/L 07/18/2017 Comp Metabolic Qyy507 ANION GAP 11 07/18/2017 Comp Metabolic Qoy453 GLUCOSE 96 mg/dL 07/18/2017 Comp Metabolic Rki690 Creat 1.0 mg/dL 07/18/2017 Comp Metabolic Pfw723 eGFR 73 ml/min/1.73m2 07/18/2017 Comp Metabolic Liz505 BUN 12 mg/dL 07/18/2017 Comp Metabolic Zgg285 B/C Ratio 11.7 Ratio 07/18/2017 Comp Metabolic Cbj590 CALCIUM 9.2 mg/dL 07/18/2017 Comp Metabolic Qix814 ALK PHOS 74 U/L 07/18/2017 Comp Metabolic Sot209 AST(SGOT) 29 U/L 07/18/2017 Comp Metabolic Aah020 ALT(SGPT) 16 U/L 07/18/2017 Comp Metabolic Znl320 BILI T 0.7 mg/dL 07/18/2017 Comp Metabolic Tsi675 ALBUMIN 3.7 g/dL 07/18/2017 Comp Metabolic Wlr296 TPRO 6.5 g/dL 07/18/2017 Comp Metabolic Ziy810 GLOB 2.8 g/dL 07/18/2017 Comp Metabolic Uje686 A/G Ratio 1.3 Ratio 07/18/2017 Comp Metabolic Ztw794 Osmo 279 mOsmo 07/18/2017 Iron Ord72 Iron 114 ug/dl 07/18/2017 B12 Mwc768 B12 233.00 pg/ml 07/18/2017 Tsh Ord6 hTSH [...] 33.3 pg 12/13/2016 Cbc With Differential Ord2 [place]% 17.9 % 12/13/2016 Cbc With Differential Ord2 [...] 2.71 K/ul 12/13/2016 Cbc With Differential Ord2 [place] ABS# 1.7 K/ul 12/13/2016 Cbc With Differential Ord2 Eos ABS# 0.3 K/ul 12/13/2016 Cbc With Differential Ord2 Baso ABS# 0.0 K/ul 12/13/2016 Comp Metabolic Fhb865 NA 136 mEq/L 12/13/2016 Comp Metabolic Rel959 K 4.7 mEq/L 12/13/2016 Comp Metabolic Rtw559 CL 102 mEq/L 12/13/2016 Comp Metabolic Rjc233 CO2 26.0 mEq/L 12/13/2016 Comp Metabolic Vtx763 ANION GAP 13 12/13/2016 Comp Metabolic Ofm535 GLUCOSE 87 mg/dL 12/13/2016 Comp Metabolic Jbr813 Creat 0.9 mg/dL 12/13/2016 Comp Metabolic Qcf987 eGFR 83 ml/min/1.73m2 12/13/2016 Comp Metabolic Ctn707 BUN 17 mg/dL 12/13/2016 Comp Metabolic Syl173 B/C Ratio 18.3 Ratio 12/13/2016 Comp Metabolic Cle874 CALCIUM 9.1 mg/dL 12/13/2016 Comp Metabolic Sox556 ALK PHOS 90 U/L 12/13/2016 Comp Metabolic Qej831 AST(SGOT) 22 U/L 12/13/2016 Comp Metabolic Fyd998 ALT(SGPT) 15 U/L 12/13/2016 Comp Metabolic Crs902 BILI T 0.8 mg/dL 12/13/2016 Comp Metabolic Nkf287 ALBUMIN 3.6 g/dL 12/13/2016 Comp Metabolic Omc350 TPRO 6.4 g/dL 12/13/2016 Comp Metabolic Jtw508 GLOB 2.9 g/dL 12/13/2016 Comp Metabolic Btw687 A/G Ratio 1.2 Ratio 12/13/2016 Comp Metabolic Rux649 Osmo 273 mOsmo 12/13/2016 Lipid Ord30 CHOL 182 mg/dL 12/13/2016 Lipid Ord30 HDL 64.0 mg/dl 12/13/2016 Lipid Ord30 TRIG 62 mg/dL 12/13/2016 Lipid Ord30 LDL 106 mg/dL 12/13/2016 Lipid Ord30 C/HDL 2.8 Ratio 12/13/2016 Ferritin Ord22 FERRITIN 434.7 ng/mL 12/13/2016 B12 Grh027 B12 247.00 pg/ml 12/13/2016 Tibc Ord40 Iron [...] 33.7 pg 04/27/2016 Cbc With Differential Ord2 [place]% 13.7 % 04/27/2016 Cbc With Differential Ord2 [...] 3.22 K/ul 04/27/2016 Cbc With Differential Ord2 [place] ABS# 1.2 K/ul 04/27/2016 Cbc With Differential Ord2 Eos ABS# 0.3 K/ul 04/27/2016 Cbc With Differential Ord2 Baso ABS# 0.0 K/ul 04/27/2016 Comp Metabolic Sss348 NA 138 mEq/L 04/27/2016 Comp Metabolic Ido354 K 4.3 mEq/L 04/27/2016 Comp Metabolic Gzv914 CL 104 mEq/L 04/27/2016 Comp Metabolic Wqu061 CO2 30.0 mEq/L 04/27/2016 Comp Metabolic Jkp117 ANION GAP 8 04/27/2016 Comp Metabolic Ksx184 GLUCOSE 87 mg/dL 04/27/2016 Comp Metabolic Ssg740 Creat 0.9 mg/dL 04/27/2016 Comp Metabolic Tak188 eGFR 82 ml/min/1.73m2 04/27/2016 Comp Metabolic Bcz014 BUN 13 mg/dL 04/27/2016 Comp Metabolic Lrq541 B/C Ratio 13.8 Ratio 04/27/2016 Comp Metabolic Bms278 CALCIUM 9.0 mg/dL 04/27/2016 Comp Metabolic Fwg240 ALK PHOS 62 U/L 04/27/2016 Comp Metabolic Qqg384 AST(SGOT) 24 U/L 04/27/2016 Comp Metabolic Avc960 ALT(SGPT) 15 U/L 04/27/2016 Comp Metabolic Yih401 BILI T 0.7 mg/dL 04/27/2016 Comp Metabolic Kis917 ALBUMIN 3.6 g/dL 04/27/2016 Comp Metabolic Ojn535 TPRO 6.1 g/dL 04/27/2016 Comp Metabolic Uup789 GLOB 2.5 g/dL 04/27/2016 Comp Metabolic Vsz546 A/G Ratio 1.4 Ratio 04/27/2016 Comp Metabolic Jkw349 Osmo 275 mOsmo 04/27/2016 B12 Dxh668 B12 >1500.00 pg/ml 04/27/2016 Iron Ord72 Iron [...] Procedure Codes Date THER/PROPH/DIAG INJ SC/IM CPT-4: 60534 01/25/2019 VITAMIN B12 INJECTION CPT- 4: J3420 01/25/2019 THER/PROPH/DIAG INJ SC/IM CPT-4: 62449 12/27/2018 VITAMIN B12 INJECTION CPT- 4: J3420 12/27/2018 THER/PROPH/DIAG INJ SC/IM CPT-4: 22930 11/29/2018 VITAMIN B12 INJECTION CPT- 4: J3420 11/29/2018 THER/PROPH/DIAG INJ SC/IM CPT-4: 83617 10/29/2018 VITAMIN B12 INJECTION CPT- 4: J3420 10/29/2018 THER/PROPH/DIAG INJ SC/IM CPT-4: 87028 09/28/2018 VITAMIN B12 INJECTION CPT- 4: J3420 09/28/2018 THER/PROPH/DIAG INJ SC/IM CPT-4: 45785 08/30/2018 VITAMIN B12 INJECTION CPT- 4: J3420 08/30/2018 VITAMIN B12 INJECTION CPT- 4: J3420 07/31/2018 THER/PROPH/DIAG INJ SC/IM CPT-4: 16193 07/31/2018 THER/PROPH/DIAG INJ SC/IM CPT-4: 02790 07/02/2018 VITAMIN B12 INJECTION CPT- 4: J3420 07/02/2018 THER/PROPH/DIAG INJ SC/IM CPT-4: 33977 05/31/2018 ADMIN INFLUENZA VIRUS VAC CPT-4: G0008 05/31/2018 VITAMIN B12 INJECTION CPT- 4: J3420 05/31/2018 FLU VACC PRSV FREE INC ANTIG Formatting Model/CDA Sections, Assigned to/Mary Grace Rosado CPT-4: 58515Bbbjnux 05/31/2018 VITAMIN B12 INJECTION CPT- 4: J3420 05/03/2018 THER/PROPH/DIAG INJ SC/IM CPT-4: 28005 05/03/2018 THER/PROPH/DIAG INJ SC/IM CPT-4: 94679 04/04/2018 VITAMIN B12 INJECTION CPT- 4: J3420 04/04/2018 THER/PROPH/DIAG INJ SC/IM CPT-4: 46849 03/05/2018 VITAMIN B12 INJECTION CPT- 4: J3420 03/05/2018 VITAMIN B12 INJECTION CPT- 4: J3420 01/30/2018 THER/PROPH/DIAG INJ SC/IM CPT-4: 72557 01/30/2018 THER/PROPH/DIAG INJ SC/IM CPT-4: 78980 01/01/2018 VITAMIN B12 INJECTION CPT- 4: J3420 01/01/2018 PPPS, SUBSEQ VISIT CPT- 4: G0439 12/18/2017 THER/PROPH/DIAG INJ SC/IM CPT-4: 29292 11/28/2017 VITAMIN B12 INJECTION CPT- 4: J3420 11/28/2017 THER/PROPH/DIAG INJ SC/IM CPT-4: 33349 10/24/2017 VITAMIN B12 INJECTION CPT- 4: J3420 10/24/2017 THER/PROPH/DIAG INJ SC/IM CPT-4: 12033 09/26/2017 VITAMIN B12 INJECTION CPT- 4: J3420 09/26/2017 THER/PROPH/DIAG INJ SC/IM CPT-4: 49041 08/10/2017 VITAMIN B12 INJECTION CPT- 4: J3420 08/10/2017 THER/PROPH/DIAG INJ SC/IM CPT-4: 64078 07/18/2017 VITAMIN B12 INJECTION CPT- 4: J3420 07/18/2017 THER/PROPH/DIAG INJ SC/IM CPT-4: 25393 05/16/2017 VITAMIN B12 INJECTION CPT- 4: J3420 05/16/2017 THER/PROPH/DIAG INJ SC/IM CPT-4: 02095 03/14/2017 VITAMIN B12 INJECTION CPT- 4: J3420 03/14/2017 TRIAMCINOLONE ACET INJ NOS CPT-4: J3301 01/12/2017 ROCEPHIN, PER 250 MG CPT- 4: J0696 01/12/2017 VITAMIN B12 INJECTION CPT- 4: J3420 01/12/2017 THER/PROPH/DIAG INJ SC/IM CPT-4: 87435 01/12/2017 PPPS, SUBSEQ VISIT CPT- 4: G0439 12/12/2016 PNEUMOCOCCAL VACC [address]: 55252648 CPT-4: 65156 12/12/2016 ADMIN PNEUMOCOCCAL VACCINE SNOMED CT: 69646204 CPT-4: G0009 12/12/2016 THER/PROPH/DIAG INJ SC/IM CPT-4: 16293 10/27/2016 VITAMIN B12 INJECTION CPT- 4: J3420 10/27/2016 THER/PROPH/DIAG INJ SC/IM CPT-4: 83697 07/27/2016 VITAMIN B12 INJECTION CPT- 4: J3420 07/27/2016 THER/PROPH/DIAG INJ SC/IM CPT-4: 73028 04/26/2016 VITAMIN B12 INJECTION CPT- 4: J3420 04/26/2016 Vital Signs Date Vital 01/08/2019 Blood Pressure 1: 138/82 Code: 8480-6 BMI: 26.0 Code: 88509-7 Heart Rate 1: 66 bpm Height: 5'7" SpO2: 97% Weight: 166 lbs 11/19/2018 Blood Pressure 1: 128/76 Code: 8480-6 BMI: 25.8 Code: 42802-5 Heart Rate 1: 76 bpm Height: 5'7" SpO2: 98% Weight: 165 lbs 08/15/2018 Blood Pressure 1: 144/66 Code: 8480-6 BMI: 25.1 Code: 57824-4 Heart Rate 1: 75 bpm Height: 5'7" SpO2: 98% Weight: 160 lbs 05/23/2018 Blood Pressure 1: 158/64 Code: 8480-6 BMI: 24.7 Code: 41012-0 Heart Rate 1: 76 bpm Height: 5'7" SpO2: 96% Temperature: 36.7 (C) / 98.1 (F) Weight: 158 lbs 05/03/2018 Blood Pressure 1: 122/72 Code: 8480-6 BMI: 25.1 Code: 41504-8 Heart Rate 1: 74 bpm Height: 5'7" SpO2: 97% Weight: 160 lbs 01/31/2018 Blood Pressure 1: 137/77 Code: 8480-6 Blood Pressure 2: 138/68 Code: 8480-6 Heart Rate 1: 67 bpm SpO2: 98% 01/30/2018 Blood Pressure 1: 138/66 Code: 8480-6 BMI: 25.1 Code: 02351-8 Heart Rate 1: 76 bpm Height: 5'7" SpO2: 94% Weight: 160 lbs 12/18/2017 Blood Pressure 1: 152/88 Code: 8480-6 BMI: 25.8 Code: 28479-8 Heart Rate 1: 68 bpm Height: 5'7" SpO2: 96% Weight: 165 lbs 11/28/2017 Blood Pressure 1: 150/76 Code: 8480-6 BMI: 25.2 Code: 83242-9 Heart Rate 1: 78 bpm Height: 5'7" SpO2: 98% Weight: 161 lbs 10/10/2017 Blood Pressure 1: 156/76 Code: 8480-6 BMI: 24.7 Code: 55837-3 Heart Rate 1: 71 bpm Height: 5'7" SpO2: 98% Weight: 158 lbs 09/26/2017 Blood Pressure 1: 162/82 Code: 8480-6 BMI: 24.7 Code: 83643-9 Heart Rate 1: 69 bpm Height: 5'7" SpO2: 99% Weight: 158 lbs 08/16/2017 Blood Pressure 1: 154/82 Code: 8480-6 BMI: 24.1 Code: 49226-7 Heart Rate 1: 58 bpm Height: 5'7" SpO2: 96% Weight: 154 lbs 07/18/2017 Blood Pressure 1: 152/88 Code: 8480-6 BMI: 25.2 Code: 71874-5 Heart Rate 1: 72 bpm Height: 5'7" SpO2: 98% Weight: 161 lbs 05/16/2017 Blood Pressure 1: 136/78 Code: 8480-6 BMI: 24.8 Code: 95579-5 Heart Rate 1: 71 bpm Height: 5'7" SpO2: 96% Weight: 158 lbs 8 oz 03/14/2017 Blood Pressure 1: 142/74 Code: 8480-6 BMI: 23.8 Code: 18890-5 Heart Rate 1: 69 bpm Height: 5'7" SpO2: 94% Weight: 152 lbs 01/12/2017 Blood Pressure 1: 156/90 Code: 8480-6 BMI: 23.4 Code: 40601-7 Heart Rate 1: 90 bpm Height: 5'7" SpO2: 97% Temperature: 37.4 (C) / 99.3 (F) Weight: 149 lbs 8 oz 12/12/2016 Blood Pressure 1: 140/78 Code: 8480-6 BMI: 24.3 Code: 21378-2 Heart Rate 1: 73 bpm Height: 5'7" SpO2: 96% Waist Measure (cm): 90 cm Weight: 155 lbs 12/08/2016 Blood Pressure 1: 148/84 Code: 8480-6 BMI: 24.3 Code: 55941-9 Heart Rate 1: 80 bpm Height: 5'7" SpO2: 96% Weight: 155 lbs 11/03/2016 Blood Pressure 1: 156/84 Code: 8480-6 Blood Pressure 2: 155/94 Code: 8480-6 BMI: 24.3 Code: 42424-1 Heart Rate 1: 81 bpm Height: 5'7" SpO2: 98% Weight: 155 lbs 10/06/2016 Blood Pressure 1: 175/95 Code: 8480-6 Heart Rate 1: 77 bpm Respiratory Rate: 16 bpm SpO2: 98% Temperature: 36.4 (C) / 97.5 (F) Weight: 157 lbs 09/06/2016 Blood Pressure 1: 136/80 Code: 8480-6 BMI: 24.1 Code: 25431-3 Heart Rate 1: 82 bpm Height: 5'8" SpO2: 97% Weight: 156 lbs 08/23/2016 Blood Pressure 1: 160/80 Code: 8480-6 BMI: 24.4 Code: 41070-6 Heart Rate 1: 88 bpm Height: 5'8" SpO2: 95% Weight: 158 lbs 04/26/2016 Blood Pressure 1: 156/74 Code: 8480-6 BMI: 24.5 Code: 51901-6 Heart Rate 1: 70 bpm Height: 5'8" [...] data Encounters Encounter Performer Location Codes Date ([id number]) 18026 EST. PATIENT, LEVEL III Diagnosis: Sebaceous cyst[ICD10: L72.3] Ana Paris MD, [facility] CPT-4: 69183 01/08/2019 ([id number]) 54589 EST. PATIENT, LEVEL IV Diagnosis: Essential (primary) hypertension[ICD10: I10] Diagnosis: Chronic pain syndrome[ICD10: G89.4] Diagnosis: Epigastric pain[ICD10: R10.13] [facility] CPT-4: 87885 11/19/2018 ([id number]) 15975 EST. PATIENT, LEVEL III Diagnosis: Essential (primary) hypertension[ICD10: I10] Andree Paris MD, [facility] CPT-4: 24128 08/15/2018 28301 EST. PATIENT, LEVEL III Diagnosis: Dysphagia, pharyngoesophageal phase[ICD10: R13.14] Teresa Paris MD, [facility] CPT-4: 83124 05/23/2018 ([id number]) 32728 EST. PATIENT, LEVEL IV Diagnosis: Essential (primary) hypertension[ICD10: I10] Diagnosis: Chronic pain syndrome[ICD10: G89.4] Diagnosis: Vitamin B12 deficiency anemia due to intrinsic factor deficiency[ICD10: D51.0] Diagnosis: Other iron deficiency anemias[ICD10: D50.8] Diagnosis: Slow transit constipation[ICD10: K59.01] Andree Paris MD, [facility] CPT-4: 12571 05/03/2018 ([id number]) Miscellaneous no charge Diagnosis: Essential (primary) hypertension[ICD10: I10] Teresa Paris MD, [facility] CPT-4: 31748 01/31/2018 ([id number]) 19449 EST. PATIENT, LEVEL IV Diagnosis: Essential (primary) hypertension[ICD10: I10] Diagnosis: Chronic pain syndrome[ICD10: G89.4] Andree Paris MD, [facility] CPT- 4: 66088 01/30/2018 ([id number]) 66394 EST. PATIENT, LEVEL IV Diagnosis: Essential (primary) hypertension[ICD10: I10] Diagnosis: Chronic pain syndrome[ICD10: G89.4] Diagnosis: Vitamin B12 deficiency anemia due to intrinsic factor deficiency[ICD10: D51.0] Diagnosis: Iron deficiency anemia, unspecified[ICD10: D50.9] Ana Paris MD, [facility] CPT-4: 36751 11/28/2017 11870 EST. PATIENT, LEVEL IV Diagnosis: Essential (primary) hypertension[ICD10: I10] Diagnosis: Slow transit constipation[ICD10: K59.01] Diagnosis: Chronic pain syndrome[ICD10: G89.4] Teresa Paris MD, [facility] CPT- 4: 40920 10/10/2017 22418 EST. PATIENT, LEVEL IV Diagnosis: Vitamin B12 deficiency anemia due to intrinsic factor deficiency[ICD10: D51.0] Diagnosis: Essential (primary) hypertension[ICD10: I10] Diagnosis: Chronic pain syndrome[ICD10: G89.4] Teresa Paris MD, [facility] CPT- 4: 34644 09/26/2017 52988 EST. PATIENT, LEVEL III Diagnosis: Dysphagia, pharyngoesophageal phase[ICD10: R13.14] Teresa Paris MD, [facility] CPT-4: 74779 08/16/2017 ([id number]) 36304 EST. PATIENT, LEVEL IV Diagnosis: Essential (primary) hypertension[ICD10: I10] Diagnosis: Chronic pain syndrome[ICD10: G89.4] Diagnosis: Vitamin B12 deficiency anemia due to intrinsic factor deficiency[ICD10: D51.0] Diagnosis: Iron deficiency anemia, unspecified[ICD10: D50.9] Diagnosis: Dysphagia, pharyngoesophageal phase[ICD10: R13.14] Ana Paris MD, [facility] CPT-4: 95184 07/18/2017 ([id number]) 24500 EST. PATIENT, LEVEL III Diagnosis: Essential (primary) hypertension[ICD10: I10] Diagnosis: Chronic pain syndrome[ICD10: G89.4] Diagnosis: Vitamin B12 deficiency anemia due to intrinsic factor deficiency[ICD10: D51.0] Ana Paris MD, [facility] CPT-4: 63374 05/16/2017 ([id number]) 57082 EST. PATIENT, LEVEL III Diagnosis: Essential (primary) hypertension[ICD10: I10] Diagnosis: Chronic pain syndrome[ICD10: G89.4] Diagnosis: Vitamin B12 deficiency anemia due to intrinsic factor deficiency[ICD10: D51.0] Ana Paris MD, [facility] CPT-4: 70638 03/14/2017 ([id number]) 00209 EST. PATIENT, LEVEL III Diagnosis: Cough[ICD10: R05] Diagnosis: Acute bronchitis, unspecified[ICD10: J20.9] Diagnosis: Chronic pain syndrome[ICD10: G89.4] Diagnosis: Vitamin B12 deficiency anemia due to intrinsic factor deficiency[ICD10: D51.0] Ana Paris MD, [facility] CPT-4: 85025 01/12/2017 ([id number]) 22835 EST. PATIENT, LEVEL III Diagnosis: Essential (primary) hypertension[ICD10: I10] Diagnosis: Chronic pain syndrome[ICD10: G89.4] Ana Paris MD, [facility] CPT-4: 73959 12/08/2016 ([id number]) 03338 EST. PATIENT, LEVEL III Diagnosis: Essential (primary) hypertension[ICD10: I10] Ana Paris MD, [facility] CPT-4: 70960 11/03/2016 ([id number]) 93332 EST. PATIENT, LEVEL III Diagnosis: Essential (primary) hypertension[ICD10: I10] Ana Paris MD, [facility] CPT-4: 81401 10/06/2016 ([id number]) 02994 EST. PATIENT, LEVEL III Diagnosis: Essential (primary) hypertension[ICD10: I10] Ana Paris MD, [facility] CPT-4: 98096 09/06/2016 ([id number]) 84339 EST. PATIENT, LEVEL III Diagnosis: Essential (primary) hypertension[ICD10: I10] Ana Paris MD, [facility] CPT-4: 53085 08/23/2016 ([id number]) OFFICE VISIT, NEW - LEVEL 4 Diagnosis: Noninfective gastroenteritis and colitis, unspecified[ICD10: K52.9] Diagnosis: Vitamin B12 deficiency anemia due to intrinsic factor deficiency[ICD10: D51.0] Diagnosis: Iron deficiency anemia, unspecified[ICD10: D50.9] Diagnosis: Chalazion left upper eyelid[ICD10: H00.14] Diagnosis: Elevated blood-pressure reading, without diagnosis of hypertension[ICD10: R03.0] Andree Paris MD, [facility] CPT-4: 37978 04/26/2016 Plan of Care Planned Activity Notes Codes Status Date Appointment: Injection 01/25/2019 Patient Education: Patient Medication Summary Completed 01/25/2019 Visit Plan: Sebaceous cyst -left lower back -rx for antibiotic provided for acute infection and instructed on use -return to clinic if not improving or if any worse- refer to Dr Parish for surgical removal of cyst- patient verbalized understanding of plan. 01/08/2019 Appointment: [phone] [place] (30 min) Complex 01/08/2019 Patient Education: [...] of over-medication. 11/19/2018 [facility]ment[phone] (15 min) Moderate 11/19/2018 Patient Education: [...] his amlodipine 08/15/2018 Appointment: [phone] [place] (15 min) Moderate 08/15/2018 Patient Education: [...] plan. 05/23/2018 Appointment: Teresa Bardales WPtel: [phone] [facility] (15 min) Moderate 05/23/2018 Patient Education: Patient [...] management. 05/03/2018 Appointment: [phone] (15 min) Moderate 05/03/2018 Patient Education: [...] of over-medication. 01/30/2018 Appointment: [phone] (15 min) Moderate 01/30/2018 Patient Education: [...] acute concerns. 12/18/2017 Appointment: [phone] [facility] - Annual Wellness Visit 12/18/2017 [...] 11/28/2017 Appointment: [phone] [phone] ([facility] min) [facility] 11/28/2017 Patient Education: Patient Medication Summary Completed [...] this regimen. 10/10/2017 Appointment: [phone] [facility] (30 min) Complex 10/10/2017 Patient Education: [...] consequences of over-medication. 09/26/2017 Appointment: Teresa Bardalestel: [facility] (30 min) Complex 09/26/2017 Patient Education: Patient Medication Summary Completed 09/26/2017 Appointment: Teresa Bardales WPtel: [facility]5 [facility] (30 min) Complex 09/19/2017 Referral: External, Ordering Provider Referral Appointment Confirmed 08/17/2017 Visit Plan: Dysphagia - worsening since yesterday - will refer to Dr. Harper for possible EGD - pt is to notify clinic if symptoms do not improve, if they worsen, or with any acute changes, questions, or concerns. 08/16/2017 Appointment: Teresa Bardales WPtel: [facility]5 [facility] (30 min) Complex 08/16/2017 Patient Education: Patient Medication Summary Completed 08/16/2017 Care Plan: Referral Order SNOMED-CT : [id number] Pending 08/16/2017 Appointment: Injection 08/10/2017 Patient Education: [...] 07/18/2017 Appointment: Ana Pedraza WPtel: [phone] (30 min) Complex 07/18/2017 Patient Education: Patient [...] 05/16/2017 Appointment: Ana Pedraza WPtel: [phone] (30 min) Complex 05/16/2017 Patient Education: Patient [...] over-medication. 03/14/2017 Appointment: Ana Pedraza WPtel: [phone] [phone] (30 min) Complex 03/14/2017 Patient Education: Patient [...] over-medication. 01/12/2017 Appointment: Ana Pedraza WPtel: [phone] [phone] [place] [address] (30 min) Complex 01/12/2017 Patient Education: Patient [...] surrogate. 12/12/2016 Appointment: [phone] [phone] [facility] - Annual Wellness Visit 12/12/2016 [...] of over-medication. 12/08/2016 Appointment: Ana Pedraza WPtel: [address] [place] [address] (30 min) Complex 12/08/2016 Patient Education: Patient [...] acute concerns. 11/03/2016 Appointment: Ana Pedraza WPtel: [address] [place] [phone] (30 min) Complex 11/03/2016 Patient Education: Patient [...] 10/06/2016 Appointment: Ana Pedraza WPtel: [phone] (30 min) Complex 10/06/2016 Patient Education: Patient [...] Ana Pedraza WPtel: [phone] [phone] (30 min) Complex 09/06/2016 Patient Education: Patient [...] concerns. 08/23/2016 Appointment: Ana Pedraza WPtel: [phone] [phone] (15 min) Moderate 08/23/2016 Patient Education: Patient [...] gentamycin. 04/26/2016 Appointment: [facility] Paris [facility]el: [phone] [place] New Patient 04/26/2016 Patient Education: [...] continue with current management. . Hypertension - well controlled - continue [...]
--- NOTE | 2019-04-03 14:27 | ED General ---
General Chief Complaint: Oral/Throat Problems Stated Complaint: THROAT DISCOMFORT Nursing Triage Note: PATIENT HERE WITH AND STATES THAT HE HAS CHICKEN CAUGHT IN HIS THROAT FROM DINNER LAST NIGHT. STATES THIS HAS HAPPENED MANY TIMES BEFORE. Nursing Sepsis Screen: No Definite Risk Source of Information: Patient Exam Limitations: No Limitations History of Present Illness Date Seen by Provider: Apr 03, 2019 Time Seen by Provider: 14:05 Initial Comments Here with report of inability to swallow after eating chicken last night. He states it got caught in his throat. It has not moved since. He is unable to swallow his spit. He states he goes down for a little bit and then comes back up eventually. He reports that this has happened multiple times before. He sees Dr. Parish for this typically Timing/Duration: 12-24 Hours Severity: Moderate Associated Systoms: No Fever/Chills, No Shortness of Air Allergies and Home Medications Allergies Coded Allergies: ibuprofen (Verified Allergy, Unknown, RASH, 05/07/09) Home Medications Amlodipine Besylate 5 Mg Tablet, 5 MG PO DAILY, (Reported) Lisinopril 20 Mg Tablet, 20 MG PO BID, (Reported) Morphine Sulfate 30 Mg Tablet.er, 30 MG PO DAILY, (Reported) Patient Home Medication List Home Medication List Reviewed: Yes Review of Systems Review of Systems Constitutional: see HPI; No chills, No fever Respiratory: no symptoms reported Cardiovascular: no symptoms reported Gastrointestinal: see HPI; No abdominal pain; other (difficulty swallowing) Skin: no symptoms reported Psychiatric/Neurological: No Symptoms Reported All Other Systems Reviewed Negative Unless Noted: Yes Past Ohilcgk-Cfbgfv-Dawsni Hx Past Med/Social Hx: Reviewed Nursing Past Med/Soc Hx Patient Social History Alcohol Use: Occasionally Uses Alcohol Beverage of Choice: Beer Recreational Drug Use: No Smoking Status: Never a Smoker Former Smoker, Quit: Aug 18, 1986 2nd Hand Smoke Exposure: No Recent Foreign Travel: No Contact w/Someone Who Travel: No Recent Infectious Disease Expo: No Recent Hopitalizations: No Physical Abuse: No Sexual Abuse: No Mistreated: No Fear: No Immunizations Up To Date Tetanus Booster (TDap): Unknown PED Vaccines UTD: No Date of Pneumonia Vaccine: Apr 04, 2011 Date of Influenza Vaccine: Jun 04, 2018 Seasonal Allergies Seasonal Allergies: Yes Past Medical History Surgeries: Yes (colon resection, hernia x2, ) Abdominal, Appendectomy Respiratory: No Currently Using CPAP: No Currently Using BIPAP: No Cardiac: Yes Hypertension Neurological: No Reproductive Disorders: No Sexually Transmitted Disease: No HIV/AIDS: No Genitourinary: No Gastrointestinal: Yes Chronic Constipation Musculoskeletal: Yes Arthritis Endocrine: No HEENT: Yes (CATARACTS REMOVED) Cancer: Yes Prostate, Skin What Type of Treatment Did You: Radiation Psychosocial: No Integumentary: No Blood Disorders: Yes (ANEMIA) Family Medical History Reviewed Nursing Family Hx Physical Exam Vital Signs Vital Signs - First Documented 04/03/19 13:52 Temp 96.1 Pulse 64 Resp 20 B/P (MAP) 199/102 (134) Pulse Ox 98 Capillary Refill : Less Than 3 Seconds Height, Weight, BMI Height: 5'11.00" Weight: 155lbs. 0.0oz. 70.307350ey; 21.6 BMI Method:Stated General Appearance: No Apparent Distress, WD/WN HEENT: PERRL/EOMI, Pharynx Normal Neck: Non Tender, Supple Respiratory: Lungs Clear, Normal Breath Sounds Cardiovascular: Regular Rate, Rhythm, No Murmur Gastrointestinal: Non Tender, Soft Back: Normal Inspection, No CVA Tenderness, No Vertebral Tenderness Extremity: Normal Range of Motion, Non Tender Neurologic/Psychiatric: Alert, Oriented x3 Progress/Results/Core Measures Suspected Sepsis Recent Fever Within 48 Hours: No Infection Criteria Present: None New/Unexplained Altered Menta: No Sepsis Screen: No Definite Risk SIRS Temperature:96.1 Pulse: 64 Respiratory Rate: 20 Blood Pressure 199 /102 Mean: 134 Results/Orders My Orders Orders - SIGIFREDO ADAMS MD Glucagon Emergency Kit (Glucagon Emergen (04/03/19 14:30) Vital Signs/I&O 04/03/19 13:52 Temp 96.1 Pulse 64 Resp 20 B/P (MAP) 199/102 (134) Pulse Ox 98 Capillary Refill : Less Than 3 Seconds Blood Pressure Mean: 134 Progress Note : Progress Note Seen and evaluated. Attempted to contact Dr. Hood that he is out of country. Dr. Calderón is on-call and I did call at 1414. He will take the patient to endoscopy suite for food bolus reduction. He requested glucagon 1 mg IV which has been ordered. Pending transfer to endoscopy suite. Departure Communication (Admissions) Time/Spoke to Admitting Phy: 14:14 Impression Primary Impression: Esophageal obstruction due to food impaction Disposition: ADMITTED INPATIENT Condition: Stable Admissions Decision to Admit Reason: Admit from ER (General) Decision to Admit/Date: Apr 03, 2019 Time/Decision to Admit Time: 14:14 Departure-Patient Inst. Referrals: ARUN DUONG MD (PCP/Family) Primary Care Physician SIGIFREDO ADAMS MD Apr 03, 2019 14:27
[2019-04-03] MEDS ORDERED: GLUCAGON EMERGENCY 1 MG/KIT IV ONE (14:30)
--- OUTSIDE RECORDS SUMMARY | 2019-04-03 14:51 | XMS REPORT | Continuity of Care Document ---
Author Organization Unknown Address Unknown Phone Unavailable Allergies Active Description Code Type Severity Reaction Onset Reported/Identified Relationship to Patient Clinical Status Yes ibuprofen [id number] Drug Allergy Unknown RASH 05/07/2009 Medications There [...] D50.9 IRON DEFICIENCY ANEMIA, UNSPECIFIED 12/15/2016 ISAIAS HUNTP Ot D50.9 IRON DEFICIENCY ANEMIA, UNSPECIFIED 07/25/2017 ISAIAS HUNTP Ot K22.4 DYSKINESIA OF ESOPHAGUS 07/25/2017 ISAIAS HUNT FOIL WRAPPER Ot 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 08/15/2017 ISIAAS HUNTP Ot K22.4 DYSKINESIA OF ESOPHAGUS 08/15/2017 ISAIAS HUNTP Ot 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 08/18/2017 BETTYE ROJAS DO Ot K21.9 GASTRO-ESOPHAGEAL REFLUX DISEASE WITHOUT 08/18/2017 BETTYE ROJAS DO Ot Z01.818 ENCOUNTER FOR OTHER PREPROCEDURAL EXAMIN 08/21/2017 CRYSTAL DO, BETTYE B Ot K21.9 GASTRO-ESOPHAGEAL REFLUX DISEASE WITHOUT 08/21/2017 DELMAN DO, BETTYE B Ot Z01.818 ENCOUNTER FOR OTHER PREPROCEDURAL EXAMIN 08/24/2017 DELMAN DO, BETTYE B Ot I10 ESSENTIAL (PRIMARY) HYPERTENSION 08/24/2017 CRYSTAL DO, BETTYE B Ot K29.70 GASTRITIS, UNSPECIFIED, WITHOUT BLEEDING 08/24/2017 CRYSTAL DO, BETTYE B Ot R13.10 DYSPHAGIA, UNSPECIFIED 08/24/2017 DELAPRYL DO, BETTYE B Ot Z79.899 OTHER STATION EXAMINER (CURRENT) DRUG THERAPY 09/06/2017 ISAIAS HUNT Ot K22.4 DYSKINESIA OF ESOPHAGUS 09/06/2017 ISAIAS HUNT FOIL WRAPPER Ot 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 05/23/2018 LIZETTE MANCILLA MD Ot 280.9 IRON DEFIC ANEMIA NOS 05/23/2018 LIZETTE MANCILLA MD Ot 280.9 IRON DEFIC ANEMIA NOS 05/23/2018 LAURENT BELTRAN, LIZETTE K Ot 280.9 IRON DEFIC ANEMIA NOS 05/23/2018 LAURENT BELTRAN, LIZETTE K Ot 280.9 IRON DEFIC ANEMIA NOS 05/23/2018 LAURENT BELTRAN, LIZETTE Simpson Ot E61.1 IRON DEFICIENCY 05/23/2018 ISAIAS HUNT FOIL WRAPPER Ot D50.9 IRON DEFICIENCY ANEMIA, UNSPECIFIED 05/23/2018 ISAIAS HUNTP Ot K22.4 DYSKINESIA OF ESOPHAGUS 05/23/2018 ISAIAS HUNTP Ot 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 05/23/2018 CRYSTAL OLGUIN, BETTYE B Ot H91.90 UNSPECIFIED HEARING LOSS, UNSPECIFIED EA 05/23/2018 CRYSTAL DO, BETTYE B Ot I10 ESSENTIAL (PRIMARY) HYPERTENSION 05/23/2018 CRYSTAL OLGUIN, BETTYE B Ot R13.10 DYSPHAGIA, UNSPECIFIED 05/23/2018 DELAPRYL DO BETTYE B Ot T18.128A FOOD IN ESOPHAGUS CAUSING OTHER INJURY, 05/23/2018 CRYSTAL DO, BETTYE B Ot Z79.899 OTHER STATION EXAMINER (CURRENT) DRUG THERAPY 05/23/2018 CRYSTAL OLGUIN, BETTYE B Ot Z87.891 PERSONAL HISTORY OF NICOTINE DEPENDENCE 05/25/2018 CRYSTAL OLGUIN BETTYE B Ot H91.90 UNSPECIFIED HEARING LOSS, UNSPECIFIED EA 05/25/2018 CRYSTAL DO BETTYE B Ot I10 ESSENTIAL (PRIMARY) HYPERTENSION 05/25/2018 CRYSTAL DO BETTYE B Ot R13.10 DYSPHAGIA, UNSPECIFIED 05/25/2018 CRYSTAL DO BETTYE B Ot T18.128A FOOD IN ESOPHAGUS CAUSING OTHER INJURY, 05/25/2018 CRYSTAL DO BETTYE B Ot Z79.899 OTHER [facility] (CURRENT) DRUG THERAPY 05/25/2018 CRYSTAL DO BETTYE B Ot Z87.891 PERSONAL HISTORY OF NICOTINE DEPENDENCE 02/07/2019 JESSICAAPRYL BETTYE OLGUIN B Ot Z01.818 ENCOUNTER FOR OTHER PREPROCEDURAL EXAMIN 2019 LIZETTE MANCILLA MD Ot 280.9 IRON DEFIC ANEMIA NOS 2019 LIZETTE MANCILLA MD Ot 280.9 IRON DEFIC ANEMIA NOS 2019 LIZETTE MANCILLA MD Ot 280.9 IRON DEFIC ANEMIA NOS 2019 LIZETTE MANCILLA MD Ot E61.1 IRON DEFICIENCY 2019 ISAIAS HUNT FOIL WRAPPER Ot D50.9 IRON DEFICIENCY ANEMIA, UNSPECIFIED 2019 ISAIAS HUNT FOIL WRAPPER Ot K22.4 DYSKINESIA OF ESOPHAGUS 2019 ISAIAS HUNT FOIL WRAPPER Ot 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 02/13/2019 CRYSTAL DO BETTYE B Ot I10 ESSENTIAL (PRIMARY) HYPERTENSION 02/13/2019 JESSICAAPRYL DO BETTYE B Ot K29.50 UNSPECIFIED CHRONIC GASTRITIS WITHOUT BL 02/13/2019 CRYSTAL DO BETTYE B Ot L72.0 EPIDERMAL CYST 02/13/2019 CRYSTAL DO BETTYE B Ot R22.2 LOCALIZED SWELLING, MASS AND LUMP, TRUNK 02/13/2019 JESSICAAPRYL BETTYE OLGUIN B Ot Z11.2 ENCOUNTER FOR SCREENING FOR OTHER BACTER 02/13/2019 JESSICAAPRYL DO BETTYE B Ot Z87.891 PERSONAL HISTORY OF NICOTINE DEPENDENCE Procedures There is no data. Results Test Result Range Methicillin resistant Staphylococcus aureus (MRSA) screening culture - 02/13/19 09:25 Methicillin resistant Staphylococcus aureus (MRSA) screening culture NEG NRG Encounters ACCT No. Visit Date/Time Discharge Status Pt. Type Provider Facility Loc./Unit Complaint [id number] 09/16/2013 10:12:00 09/16/2013 23:59:59 CLS Outpatient ROSEMARIE VELASQUEZ DO [id number] 07/13/2017 23:10:15 07/13/2017 23:59:59 CLS Outpatient [id number] 07/05/2018 13:19:00 07/05/2018 23:59:00 DIS Outpatient Reinier Su [facility] 04/07/2015 09:27:50 ACT Document Registration [id number] 08/10/2017 12:40:00 08/10/2017 23:59:59 CLS Outpatient GI [facility] [id number] 02/13/2019 09:04:00 02/13/2019 16:10:00 DIS Outpatient BETTYE ROJAS DO [facility] SDC CYSTS [id number] 02/07/2019 05:38:00 02/07/2019 12:06:00 DIS Outpatient BETTYE ROJAS DO [facility] PREOP CYSTS [id number] 07/04/2018 16:08:00 07/04/2018 23:59:59 CLS Preadmit REINIER SU MD [facility] RAD RT EPIDIDYMITIS [id number] 05/23/2018 14:06:00 05/23/2018 17:10:00 DIS Outpatient BETTYE ROJAS DO [facility] ENDO DYPHAGIA [id number] 08/24/2017 06:37:00 08/24/2017 10:00:00 DIS Outpatient BETTYE ROJAS DO B [facility] ENDO DYSPHAGIA [id number] 08/18/2017 05:46:00 08/18/2017 14:37:00 DIS Outpatient BETTYE ROJAS DO [facility] PREOP EGD [id number] 07/24/2017 10:35:00 07/24/2017 23:59:59 CLS Outpatient ISAIAS HUNT [facility] RAD R13.14 [id number] 10/12/2016 10:10:00 10/12/2016 23:59:59 CLS Outpatient ISAIAS HUNT [facility] IRON DEFICIENCY ANEMIA [id number] 01/12/2016 09:01:00 01/12/2016 23:59:59 CLS Outpatient LIZETTE MANCILLA MD [facility] IRON DEFICIENCY [id number] 04/07/2015 09:25:00 04/07/2015 23:59:59 CLS Outpatient LIZETTE MANCILLA MD [facility] IRON DEFICIENCY [id number] 07/21/2014 09:49:00 07/21/2014 23:59:59 CLS Outpatient LIZETTE MANCILLA MD [facility] IRON DEF ANEMIA [id number] 10/10/2013 09:27:00 10/10/2013 23:59:59 CLS Outpatient LIZETTE MANCILLA MD [facility] IRON DEF ANEMIA [id number] 01/03/2013 09:22:00 01/03/2013 23:59:59 CLS Outpatient LIZETTE MANCILLA MD [facility] IRON DEFICIENCY ANEMIA
--- NOTE | 2019-04-03 15:00 | NUR ---
ENDO STAFF IN ER TO TAKE PT OVER FOR PROCEDURE.
[2019-04-03] MEDS ORDERED: NS IV 500 ML 500 ML ONE (15:16)
[2019-04-03] MEDS ORDERED: NS IV 500 ML 500 ML IV PRN (15:16)
[2019-04-03] MEDS ORDERED: MIDAZOLAM 2 MG/2 ML (VERSED) VIAL IVP ONE (15:30)
[2019-04-03] MEDS ORDERED: HURRICAINE EXT TUBE (BENZOCAINE) XX PRN (15:30)
[2019-04-03] MEDS ORDERED: fentaNYL INJECTION 100 MCG/2 ML AMP IVP ONE (15:30)
[2019-04-03] MEDS ORDERED: LIDOCAINE JELLY 2% 6 ML SYRINGE MM PRN (15:30)
[2019-04-03 15:41] VITALS: BP 167/84
--- NOTE | 2019-04-03 16:31 | Progress Note-Pre Operative ---
Pre-Operative Progress Note H&P Reviewed The H&P was reviewed, patient examined and no changes noted. 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 NATE FITCH MD Apr 03, 2019 16:31
[2019-04-03] MEDS ORDERED: PANT40TA2 PO (16:33)
--- NOTE | 2019-04-03 16:33 | Discharge Inst-Surgical ---
D/C Lap Instructions-KIDO New, Converted, or Re-Newed RX: RX on Chart Follow Up Appt in 6 weeks Activity as tolerated High Fiber Diet 25g or more per day Avoid Alcohol, Caffeine, Spicy [place] and Acid foods. Drink 64 fluid oz or more of fluids per day. Symptoms to Report: Fever over 101 degree F, Nausea/Vomiting If any problems/questions: Contact your physician or go to Emergency Room NATE FITCH MD Apr 03, 2019 16:33
[2019-04-03] MEDS ORDERED: HYDROcodone/APAP 5 MG/325 MG (LORTAB) TAB PO PRN (16:45)
[2019-04-03] MEDS ORDERED: ACETAMINOPHEN 325 MG TABLET PO PRN (16:45)
[2019-04-03] MEDS ORDERED: ONDANSETRON 4 MG/2 ML (SDV) Z0FRAN IVP PRN (16:45)
[2019-04-03] MEDS ORDERED: morphine INJ 10 MG/ML 1ML (SYR OR VIAL) IVP PRN ×2 (16:45)
[2019-04-03] MEDS ORDERED: fentaNYL INJECTION 100 MCG/2 ML AMP ONE (16:51)
[2019-04-03] MEDS ORDERED: LIDOCAINE JELLY 2% 6 ML SYRINGE ONE (16:51)
[2019-04-03] MEDS ORDERED: MIDAZOLAM 2 MG/2 ML (VERSED) VIAL ONE ×4 (16:52)
--- NOTE | 2019-04-03 16:52 | CONSULTATION REPORT ---
DATE OF SERVICE: 04/03/2019 ATTENDING PRIMARY CARE PHYSICIAN: Dr. Paris. HISTORY OF PRESENT ILLNESS: The patient is an 84-year-old male with history of gastroesophageal reflux disease as well as dysphagia and what sounds to be an esophageal stricture. He has had substernal pressure sensation after eating a food bolus usually with dry lean meat and he would then have difficulty taking in liquids as well as his own saliva. He reports similar symptoms with trying to eat chicken last night. Since that time, he has been unable to swallow his own saliva. PAST MEDICAL HISTORY: Hypertension. PAST SURGERIES: Appendectomy, colon resection, hernia repair, bilateral cataracts. ALLERGIES: IBUPROFEN. MEDICATIONS: 1. Amlodipine 5 mg daily. 2. Lisinopril 20 mg b.i.d. 3. Morphine 30 mg daily. SOCIAL HISTORY: Negative smoke, mild social alcohol. FAMILY HISTORY: Noncontributory. REVIEW OF SYSTEMS: Well-nourished male currently uncomfortable due to the substernal pressure sensation as well as dysphagia. No faith episodes of nausea or vomiting. No hematemesis. No coffee ground emesis. No chest pain, palpitations, or diaphoresis. No shortness of breath or cough or sputum production. No fever or chills. No recent inadvertent weight loss. All other review of systems are negative. PHYSICAL EXAMINATION: VITAL SIGNS: Temperature 96.1, blood pressure 199/102, pulse 64, respirations 20, pulse ox 98% on room air. CHEST: Good breath sounds bilaterally. HEART: Regular. No murmurs. EXTREMITIES: No lower extremity edema. Negative Homans sign. HEENT: No scleral icterus. NECK: No cervical lymphadenopathy. ABDOMEN: Soft and nondistended. There is pain in the epigastric region upon deep palpation. No palpable masses. SKIN: Warm and dry. ASSESSMENT AND PLAN: An 84-year-old male with recurrent dysphagia with an esophageal foreign body. We will proceed with an EGD as well as removal of the foreign body as well as balloon dilatation of the stricture is identified. Job ID: [id number] DocumentID: [id number] Dictated Date: 04/03/2019 16:41:08 Transit Proof Machine Operator Date: 04/03/2019 16:51:20 Dictated By: NATE FITCH MD
--- NOTE | 2019-04-03 17:47 | Progress Note-Post Operative ---
Post-Operative Progess Note Surgeon (s)/Solid Waste Truck Driver (s) Surgeon NATE FITCH MD Solid Waste Truck Driver: none Pre-Operative Diagnosis esoph FB with hx stricture. Post-Operative Diagnosis esoph FB, reflux esophagitis(stage 3), distal esoph stricture. Procedure & Operative Findings Date of Procedure 04/03/19 Procedure Performed/Findings EGD with removal FB and bx. Anesthesia Type cs Estimated Blood Loss Estimated blood loss (mL): minimal Specimens/Packing Specimens Removed ge jxn NATE FITCH MD Apr 03, 2019 17:47
--- NOTE | 2019-04-03 17:48 | Discharge Inst-Surgical ---
D/C Lap Instructions-KIDTresa New, Converted, or Re-Newed RX: RX on Chart Follow Up Appt in 2 weeks Activity as tolerated High Fiber Diet 25g or more per day Avoid Alcohol, Caffeine, Spicy [place] and Acid foods. Drink 64 fluid oz or more of fluids per day. Symptoms to Report: Fever over 101 degree F, Nausea/Vomiting If any problems/questions: Contact your physician or go to Emergency Room NATE FITCH MD Apr 03, 2019 17:48
[2019-04-03 17:50] VITALS: BP 95/65
[2019-04-03 17:55] VITALS: BP 110/75
--- NOTE | 2019-04-03 22:12 | OPERATIVE REPORT ---
DATE OF SERVICE: 04/03/2019 ATTENDING PRIMARY CARE PHYSICIAN: Dr. Paris. PREOPERATIVE DIAGNOSES: Dysphagia and esophageal foreign body with history of esophageal stricture. POSTOPERATIVE DIAGNOSES: Impacted foreign body, which appeared to be chicken. This was reduced forward. He has a reflux esophagitis, stage III. There appears to be postsurgical changes consistent with a gastric resection and what appears to be a gastrojejunal anastomosis. Due to the irritation of the gastroesophageal junction, we did not proceed with dilatation of the stricture. PROCEDURE: EGD with removal of foreign body and biopsy. SURGEON: Nate Fitch MD ANESTHESIA: Conscious sedation. ESTIMATED BLOOD LOSS: Minimal. FINDINGS: Impacted foreign body, which appeared to be chicken. This was reduced forward. He has a reflux esophagitis, stage III. There appears to be postsurgical changes consistent with a gastric resection and what appears to be a gastrojejunal anastomosis. Due to the irritation of the gastroesophageal junction, we did not proceed with dilatation of the stricture. DISPOSITION: The patient tolerated the procedure well. INDICATIONS: The patient is an 84-year-old male, who has had recurrent episodes of epigastric burning sensation. He then developed substernal pressure sensation after food bolus, which would persist and he has had multiple esophageal foreign bodies identified and removed. His last one was approximately 6 months ago. He was eating chicken last night for dinner and ever since has difficulty swallowing and during the duration of today, has had difficulty swallowing saliva. DESCRIPTION OF PROCEDURE: The patient was brought to the endoscopy suite, laid in the left lateral decubitus position with head slightly elevated. After adequate IV pain and sedative medications and conscious sedation anesthesia, the mouthpiece was applied. The endoscope was placed in the mouth, visualizing the pharynx and hypopharyngeal region. Vocal cords, epiglottis and vallecula identified and appeared to be normal. The endoscope was then gently intubated into the esophageal opening and esophagus insufflated. There was liquid within the proximal esophagus, which was suctioned out. At the distal esophagus was then impacted piece of what appeared to be chicken. With gentle pressure using the endoscope, we were able to reduce the chicken into the stomach. There was a significant amount of irritation within the gastroesophageal junction consistent with a reflux esophagitis, stage III. A biopsy was taken of this region using forceps with visualization of good hemostasis. The endoscope was then advanced in the stomach and it appears the patient has postsurgical changes consistent with a gastric resection and a gastrojejunostomy. The gastrojejunostomy appeared widely patent. The Laura limb also appeared to be normal with no distal obstructions. Due to the inflammation of the gastroesophageal junction, we did not to proceed with a dilatation and we will treat him medically first. The endoscope was then slowly withdrawn while taking a second look and suctioning of residual air with no additional findings. The patient tolerated the procedure well. We will start him on Protonix 40 mg daily as well as Carafate 1 gram q.i.d. for the next two weeks. We will have him follow up in office approximately 2 weeks to schedule a balloon dilatation of the gastroesophageal junction in hopes of preventing further episodes of dysphagia and impacted esophageal foreign body. Job ID: [id number] DocumentID: [id number] Dictated Date: 04/03/2019 17:28:45 Cable Machine Operator Date: 04/03/2019 22:11:59 Dictated By: NATE FITCH MD
== END 2019-04-03 18:00 ==
LOC: EDUNIT# 13:46 → ER 13:47 → SDC 15:05
PROVIDERS: ATTEND Surgery
DX: T18.128A Food in esophagus causing other injury, initial encounter (principal); K22.8 Other specified diseases of esophagus; K22.2 Esophageal obstruction; K21.0 Gastro-esophageal reflux disease with esophagitis; I10 Essential (primary) hypertension; Z88.6 Allergy status to analgesic agent; Z90.49 Acquired absence of other specified parts of digestive tract; Z79.891 Long term (current) use of opiate analgesic; Z79.899 Other long term (current) drug therapy
CPT/HCPCS: 88305; 96374

== ENCOUNTER 2019-05-31 05:36 | Outpatient (CLI) | payer MEDICARE, OTHER ==
[~2019-05-31] VITALS: Ht 180.3 cm; Wt 70.8 kg
[2019-05-31] MEDS ORDERED: PANT40TA3 PO (12:09)
== END 2019-05-31 12:10 | disposition home or self-care (01) ==
LOC: PREOP 05:36
PROVIDERS: ATTEND Surgery
DX: Z01.818 Encounter for other preprocedural examination (principal)

== ENCOUNTER 2019-06-07 10:17 | Day surgery (SDC) | payer MEDICARE, OTHER ==
[~2019-06-07] VITALS: Ht 180.3 cm; Wt 70.8 kg
[~2019-06-07 10:17] MED LIST changes: +PANT40TA3 PO
[2019-06-07] MEDS ORDERED: NS IV 500 ML 500 ML IV PRN (10:28)
[2019-06-07] MEDS ORDERED: LIDOCAINE JELLY 2% 6 ML SYRINGE MM PRN (10:30)
[2019-06-07] MEDS ORDERED: HURRICAINE EXT TUBE (BENZOCAINE) XX PRN (10:30)
[2019-06-07] MEDS ORDERED: fentaNYL INJECTION 100 MCG/2 ML AMP IVP ONE (10:30)
[2019-06-07] MEDS ORDERED: MIDAZOLAM 5 MG/5 ML (VERSED) VIAL IV PRN (10:30)
[2019-06-07 10:40] VITALS: BP 180/89
--- NOTE | 2019-06-07 12:00 | NUR ---
tied up in surgery and pt not wanting to wait for procedure. Patient instructed to call doctors office to reschedule.
== END 2019-06-07 12:00 | disposition home or self-care (01) ==
LOC: ENDO 10:17
PROVIDERS: ATTEND Surgery
DX: K22.2 Esophageal obstruction (principal); I10 Essential (primary) hypertension; Z90.49 Acquired absence of other specified parts of digestive tract; Z88.6 Allergy status to analgesic agent; Z79.899 Other long term (current) drug therapy; Z79.891 Long term (current) use of opiate analgesic

== ENCOUNTER → 2019-07-15 | Day surgery (SDC) | payer MEDICARE, OTHER ==
[~2019-07-15] VITALS: Ht 180.3 cm; Wt 72.7 kg
[~2019-07-15] MED LIST changes: +LIDOCAINE PF 2% 5 ML (XYLOCAINE) VIAL ONE; +ONDANSETRON 4 MG/2 ML (SDV) Z0FRAN ONE; +SEVOFLURANE (ULTANE) 15 ML INHAL SOLN ONE; +SUCCINYLCHOLINE INJ 100 MG/5 ML SYR ONE; +proPOfol 200 MG/20 ML (DIPRIVAN) VIAL IV ONE
--- NOTE | 2019-07-15 17:18 | ED GI ---
General Chief Complaint: Foreign Body Stated Complaint: FOOD STUCK IN THROAT Nursing Triage Note: Pt amb to triage with c/o food bolus stuck in throat. Pt reports on this day @ approx 1200 he was eating pork when it became lodged in throat. Denies SOA. Reports increased salivation. Pt reports hx food bolus required EDG extraction. No distress noted. Sepsis Screen: No Definite Risk Source of Information: Patient, Old Records, Spouse History of Present Illness Date Seen by Provider: Jul 15, 2019 Time Seen by Provider: 16:55 Initial Comments PT ARRIVES VIA POV FROM HOME C/O FOOD STUCK IN ESOPHAGUS SINCE NOON TODAY UNABLE TO SWALLOW WATER OR SALIVA STATES HE WAS EATING PORK RIBS AT THE TIME NO PAIN NO NAUSEA NO DIFFICULTY BREATHING HAS HAD THIS SAME THING HAPPEN MULTIPLE TIMES AND HAS HAD TO HAVE EGD'S / REMOVA L OF FOOD BOLUS AND ESOPHAGEAL DILATIONS MULTIPLE TIMES LAST TIME WAS 06/07/19 ALSO HAD SAME ON 04/03/19 PT HAS HAD GASTRIC RESECTION IN THE PAST. PT STATES "FOR BLEEDING" PT DRINKS ALCOHOL EVERY DAY "3 BEERS OR SO" PER PT--DENIES ANY ALCOHOL TODAY PT ALSO HAD COLON RESECTION FOR BENIGN POLYP, UNABLE TO REMOVE VIA COLONOSCOPY, PER PT PCP: DR. DUONG Allergies and Home Medications Allergies Coded Allergies: ibuprofen (Verified Allergy, Unknown, RASH, 05/07/09) Home Medications Amlodipine Besylate 5 Mg Tablet, 5 MG PO DAILY, (Reported) Lisinopril 20 Mg Tablet, 20 MG PO BID, (Reported) Morphine Sulfate 30 Mg Tablet.er, 30 MG PO DAILY, (Reported) Pantoprazole Sodium 40 Mg Tablet.dr, 40 MG PO DAILY, (Reported) Patient Home Medication List Home Medication List Reviewed: Yes Review of Systems Review of Systems Constitutional: no symptoms reported Respiratory: No Symptoms Reported Cardiovascular: No Symptoms Reported Gastrointestinal: See HPI; Denies Abdominal Pain; Difficulty Swallowing; Denies Nausea, Denies Vomiting Genitourinary: No Symptoms Reported Musculoskeletal: no symptoms reported Skin: no symptoms reported Psychiatric/Neurological: No Symptoms Reported Endocrine: No Symptoms Reported Hematologic/Lymphatic: No Symptoms Reported Past Mvpfvww-Yqgkdt-Yirmrw Hx Patient Social History Alcohol Use: Rarely Uses Number of Drinks Today: 0 Alcohol Beverage of Choice: Beer Recreational Drug Use: No Smoking Status: Former Smoker Type Used: Cigarettes Former Smoker, Quit: Aug 18, 1986 2nd Hand Smoke Exposure: No Recent Foreign Travel: No Contact w/Someone Who Travel: No Recent Infectious Disease Expo: No Recent Hopitalizations: No Immunizations Up To Date Tetanus Booster (TDap): Unknown PED Vaccines UTD: No Date of Pneumonia Vaccine: Apr 04, 2011 Date of Influenza Vaccine: May 29, 2019 Seasonal Allergies Seasonal Allergies: Yes Past Medical History Surgeries: Yes (COLON RESECTION; BILATERAL INGUINAL HERNIA REPAIRS; GASTRIC RESECTION; COLONOSCOPIES; MULTIPLE EGD'S/ REMOVAL OF FOOD BOLUSES/ESOPHAGEAL DILATIONS; BILATERAL CATARACTS; SURGICAL REMOVAL OF SKIN CANCER) Abdominal, Appendectomy, Bowel Surgery, Eye Surgery Respiratory: No Currently Using CPAP: No Currently Using BIPAP: No Cardiac: Yes Hypertension Neurological: No Reproductive Disorders: No Sexually Transmitted Disease: No HIV/AIDS: No Genitourinary: Yes (PROSTATE CANCER--S/P RADIATION SEED IMPLANTS) Gastrointestinal: Yes (BILATERAL INGUINAL HERNIA REPAIRS; COLON RESECTION FOR BENIGN POLYP-UNABLE TO REMOVE VIA COLONSCOPY; GASTRIC RESECTION FOR "BLEEDING" PER PT; COLONOSCOPIES; MULTIPLE EGD'S/ ESOPHAGEAL DILATIONS/REMOVAL OF FOOD BOLUSES) Gastroesophageal Reflux, Gastrointestinal Bleed, Chronic Constipation, Polyps Musculoskeletal: Yes Arthritis Endocrine: No HEENT: Yes (CATARACTS REMOVED) Dysphagia Cancer: Yes (PROSTATE CANCER--TX WITH RADIATION SEED IMPLANTS; SKIN CANCER--SURGICALLY REMOVED) Prostate, Skin Did You Recieve Any Treatments: Yes What Type of Treatment Did You: Radiation Psychosocial: No Integumentary: No Blood Disorders: Yes (ANEMIA) Physical Exam Vital Signs Vital Signs - First Documented 07/15/19 16:51 Temp 36.5 Pulse 97 Resp 18 B/P (MAP) 188/84 (118) Pulse Ox 98 O2 Delivery Room Air Capillary Refill : Less Than 3 Seconds Height/Weight/BMI Height: 5'11.00" Weight: 155lbs. 0.0oz. [id number]; 22.00 BMI Method:Stated General Appearance: WD/WN, no apparent distress Respiratory: normal breath sounds, no respiratory distress Cardiovascular: regular rate, rhythm, no murmur Gastrointestinal: non tender, soft Neurologic/Psychiatric: no motor/sensory deficits, alert, normal mood/affect, oriented x 3 Skin: normal color, warm/dry Progress/Results/Core Measures Results/Orders Vital Signs/I&O 07/15/19 16:51 Temp 36.5 Pulse 97 Resp 18 B/P (MAP) 188/84 (118) Pulse Ox 98 O2 Delivery Room Air Blood Pressure Mean: 118 POS Departure Communication (Admissions) 1701--SPOKE WITH DR. ROJAS, WILL BE IN TO SEE PT AND HE WILL CALL IN GI ENDOSCOPY CREW 1714--DR. ROJAS HERE, CARE TRANSFERRED TO HIM. Impression Primary Impression: FOOD BOLUS IN ESOPHAGUS Additional Impressions: Hx of gastroesophageal reflux (GERD) Hx of resection of stomach Disposition: ADMITTED INPATIENT (TO ENDOSCOPY) Condition: Stable Admissions Decision to Admit Reason: Admit from ER (General) (TO ENDOSCOPY ) Decision to Admit/Date: Jul 15, 2019 Time/Decision to Admit Time: 17:00 Departure-Patient Inst. Referrals: ARUN DUONG MD (PCP/Family) Primary Care Physician Patient Instructions: Acid Reflux (Gastroesophageal Reflux Disease), Adult (DC), Esophageal Stricture (DC), Food Obstruction, Moderate Sedation in Adults (DC), Upper GI Endoscopy (DC) Add. Discharge Instructions: CLEAR LIQUID DIET FOR THE NEXT 24 HOURS, THEN ADVANCE TO MECHANICALLY SOFT--BABY-FOOD CONSISTENCY--UNTIL YOU ARE RECHECKED BY DR. ROJAS CONTINUE ALL YOUR CURRENT MEDICATIONS PRESCRIBED FOLLOW ALL INSTRUCTIONS ADVISED BY DR. ROJAS FOLLOW UP WITH HIM ADVISED. RETURN TO ER IF PROBLEMS All discharge instructions reviewed with patient and/or family. Voiced und erstanding. STACIE ASH DO Jul 15, 2019 17:18 POS
--- NOTE | 2019-07-15 17:34 | Consultation - Surgery ---
History of Present Illness History of Present Illness Patient Consulted On(adonis/time) 07/15/19 17:29 Time Seen by Provider: 17:06 History of Present Illness Surgery asked to consult regarding probable food bolus stuck in esophagus. HPI per ED: Pt amb to triage with c/o food bolus stuck in throat. Pt reports on this day @ approx 1200 he was eating pork when it became lodged in throat. Denies SOA. Reports increased salivation. Pt reports hx food bolus required EGD extraction. No distress noted. PT ARRIVES VIA POV FROM HOME C/O FOOD STUCK IN ESOPHAGUS SINCE NOON TODAY, UNABLE TO SWALLOW WATER OR SALIVA STATES HE WAS EATING PORK RIBS AT THE TIME. NO PAIN, NO NAUSEA, NO DIFFICULTY BREATHING HAS HAD THIS SAME THING HAPPEN MULTIPLE TIMES AND HAS HAD TO HAVE EGD'S / REMOVAL OF FOOD BOLUS AND ESOPHAGEAL DILATIONS MULTIPLE TIMES LAST TIME WAS 06/07/19, ALSO HAD SAME ON 04/03/19 When I spoke to pt he was very sheepish, he knows that he is supposed to chew; "but I didn't think about it". States really doesn't have pain, just can't swallow anything. He was asking about possible balloon dilation; because it was recommended to be done the last time he got something stuck. Allergies and Home Medications Allergies Coded Allergies: ibuprofen (Verified Allergy, Unknown, RASH, 05/07/09) Home Medications Amlodipine Besylate 5 Mg Tablet, 5 MG PO DAILY, (Reported) Lisinopril 20 Mg Tablet, 20 MG PO BID, (Reported) Morphine Sulfate 30 Mg Tablet.er, 30 MG PO DAILY, (Reported) Pantoprazole Sodium 40 Mg Tablet.dr, 40 MG PO DAILY, (Reported) Patient Home Medication List Home Medication List Reviewed: Yes Past Izoikkw-Ipagse-Itojmn Hx Patient Social History Alcohol Use: Rarely Uses Number of Drinks Today: 0 Recreational Drug Use: No Smoking Status: Former Smoker Former Smoker, Quit: Aug 18, 1986 Type Used: Cigarettes 2nd Hand Smoke Exposure: No Recent Foreign Travel: No Contact w/Someone Who Travel: No Recent Infectious Disease Expo: No Recent Hopitalizations: No Immunizations Up To Date Tetanus Booster (TDap): Unknown PED Vaccines UTD: No Date of Pneumonia Vaccine: Apr 04, 2011 Date of Influenza Vaccine: May 29, 2019 Seasonal Allergies Seasonal Allergies: Yes Surgeries History of Surgeries: Yes (COLON RESECTION; BILATERAL INGUINAL HERNIA REPAIRS; GASTRIC RESECTION; COLONOSCOPIES; MULTIPLE EGD'S/ REMOVAL OF FOOD BOLUSES/ESOPHAGEAL DILATIONS; BILATERAL CATARACTS; SURGICAL REMOVAL OF SKIN CANCER) Surgeries: Abdominal, Appendectomy, Bowel Surgery, Eye Surgery Respiratory History of Respiratory Disorde: No Cardiovascular History of Cardiac Disorders: Yes Cardiac Disorders: Hypertension Neurological History of Neurological Disord: No Reproductive System Hx Reproductive Disorders: No Sexually Transmitted Disease: No HIV/AIDS: No Genitourinary History of Genitourinary Disor: Yes (PROSTATE CANCER--S/P RADIATION SEED IMPLANTS) Gastrointestinal History of Gastrointestinal Di: Yes (BILATERAL INGUINAL HERNIA REPAIRS; COLON RESECTION FOR BENIGN POLYP-UNABLE TO REMOVE VIA COLONSCOPY; GASTRIC RESECTION FOR "BLEEDING" PER PT; COLONOSCOPIES; MULTIPLE EGD'S/ ESOPHAGEAL DILATIONS/REMOVAL OF FOOD BOLUSES) Gastrointestinal Disorders: Gastroesophageal Reflux, Gastrointestinal Bleed, Chronic Constipation, Polyps Musculoskeletal History of Musculoskeletal Dis: Yes Musculoskeletal Disorders: Arthritis Endocrine History of Endocrine Disorders: No HEENT History of HEENT Disorders: Yes (CATARACTS REMOVED) HEENT Disorders: Dysphagia Cancer History of Cancer: Yes (PROSTATE CANCER--TX WITH RADIATION SEED IMPLANTS; SKIN CANCER--SURGICALLY REMOVED) Cancer: Prostate, Skin Psychosocial History of Psychiatric Problem: No Integumentary History of Skin or Integumenta: No Blood Transfusions History of Blood Disorders: Yes (ANEMIA) Family Medical History Significant Family History: Hypertension (mother) Review of Systems-General Constitutional: No chills, No diaphoresis, No dizziness, No fever EENTM: dental problems, throat pain; No blurred vision, No double vision, No epistaxis Respiratory: No cough, No dyspnea on exertion, No hemoptysis Cardiovascular: No chest pain, No edema, No palpitations Gastrointestinal: No abdominal pain; loss of appetite; No nausea, No vomiting Genitourinary: No dysuria, No frequency, No hematuria Musculoskeletal: joint pain, joint swelling, muscle pain, muscle stiffness Skin: No change in color, No change in hair/nails Psychiatric/Neurological: Denies Anxiety, Denies Depressed, Denies Seizure, Denies Tremors Other pt denies any hx of abnormal bleeding or bruising Physical Exam-General Problems Physical Exam Vital Signs Vital Signs - First Documented 07/15/19 16:51 Temp 36.5 Pulse 97 Resp 18 B/P (MAP) 188/84 (118) Pulse Ox 98 O2 Delivery Room Air Capillary Refill : Less Than 3 Seconds General Appearance: WD/WN, no apparent distress Eyes: Bilateral Eye PERRL, Bilateral Eye Abnormal EOM HEENT: pharynx normal; No scleral icterus (R), No scleral icterus (L); other (poor dentition) Neck: supple, normal inspection Respiratory: chest non-tender, lungs clear, normal breath sounds, no respiratory distress, no accessory muscle use Cardiovascular: regular rate, rhythm, no murmur Gastrointestinal: normal bowel sounds, non tender, soft, no organomegaly, no pulsatile mass Back: no CVA tenderness, no vertebral tenderness Extremities: normal range of motion, no pedal edema, no calf tenderness Neurologic/Psychiatric: bologna maker II-XII nml as tested, no motor/sensory deficits, alert, normal mood/affect, oriented x 3 Skin: normal color, warm/dry Lymphatic: no adenopathy (neck, axilla or groin) Assessment/Plan Assessment/Plan Assessment/Plan Dysphagia probable food bolus impacted in Esophagus GERD HTN Plan is to take pt to endoscopy to perform EGD with removal of food bolus. Unfortunately pt is very familiar with this procedure; we did discuss risks and complications not limited to pain, bleeding, infection and even esophageal perforation. Pt also asked about dilation, I told him probably not at this time because if it is inflamed then risk of perforation increases with attempted dilation. He understood and all questions answered to his and his 's satisfaction. BETTYE ROJAS DO Jul 15, 2019 17:34 POS
--- NOTE | 2019-07-15 18:57 | Progress Note-Post Operative ---
Post-Operative Progess Note Surgeon (s)/Basting Marker (s) Surgeon BETTYE ROJAS DO Basting Marker: none Pre-Operative Diagnosis esoph FB with hx stricture. Post-Operative Diagnosis Same Procedure & Operative Findings Date of Procedure 07/15/19 Procedure Performed/Findings EGD with balloon dilation Anesthesia Type GET Estimated Blood Loss Estimated blood loss (mL): scant Specimens/Packing Specimens Removed none BETTYE ROJAS DO Jul 15, 2019 18:57 POS
[2019-07-15 19:02] VITALS: BP 126/88
--- NOTE | 2019-07-15 19:02 | Endoscopy Discharge Instruct ---
Endo Procedure/Findings Findings 1.: Stricture Discharge Instructions - Activity: You might feel a little sleepy until tomorrow. This is due to the medicine you received to relax you. Until tomorrow, you should: NOT drive a car, operate machinery or power tools. NOT drink any alcoholic beverages. NOT make any important decisions or sign importortant papers. Do not return to work until tomorrow, unless otherwise instructed. Resume previous activities tomorrow. Diet: Start by taking liquids. If you tolerate liquids, advance to solid food. make an appointment for one week 1.: EGD in 6-8 weeks Notify Physician - If you experience excessive bleeding, unusual abdominal pain, fever, or chest pain, contact your doctor immediately. BETTYE ROJAS DO Jul 15, 2019 19:02 POS
[2019-07-15 19:10] VITALS: BP 128/94
[2019-07-15 19:20] VITALS: BP 171/80
--- NOTE | 2019-07-15 19:26 | NUR ---
report recieved from erich in recovery.
[2019-07-15 19:30] VITALS: BP 168/88
[2019-07-15 19:40] VITALS: BP 170/81
[2019-07-15 19:48] VITALS: BP 170/81
--- NOTE | 2019-07-16 02:26 | OPERATIVE REPORT ---
DATE OF SERVICE: PREOPERATIVE DIAGNOSIS: Foreign body food bolus stuck in esophagus. POSTOPERATIVE DIAGNOSES: Foreign body food bolus stuck in esophagus. Esophageal stricture. PROCEDURE: EGD with balloon dilation. SURGEON: Krish Parish DO. ENERGY RATER: None. ANESTHESIA: General endotracheal tube. SPECIMENS: None. BLOOD LOSS: Scant. FLUIDS: Per anesthesia. POSTOPERATIVE CONDITION: Stable. INDICATION FOR PROCEDURE: The patient is 84-year-old male who has history of food getting stuck and esophageal stricture, previous gastric resection. FINDINGS: The patient had food bolus stuck right at the opening from the esophagus, looked like right into the jejunum actually. PROCEDURE NOTE: After informed consent was obtained, the patient was brought to the operating room, placed on the table in supine position. He was intubated by anesthesia and then placed the EGD scope down the mouth into the esophagus, could see a lot of fluid, suctioned this up, suctioned up some food particles and then saw a food bolus stuck at the distal portion of the esophagus what turned out to be the jejunum, first suctioned some of this out to be able to pull some of it and then actually pushed this food bolus into the jejunum, went in behind it, took pictures of the jejunum, looked good. The stricture was small, but allowed the passage of the scope, elected to do balloon dilation, brought the 15 to 18 mm balloon in, blew it up to 2 atmospheres, waited for a minute, which was 15mm and then blew up to 4 atmospheres which was 16.5mm and waited for a minute and then ballooned it up to 5 atmospheres which was appx. 17-1/4 mm, held for a minute and then because there was a little bit of resistance, elected not to go any higher, pulled this out. There was some minimal bleeding from the esophagojejunostomy anastomosis with what looked like possibly an ulcer, took a picture of this. At this point, then suctioned out all the air, pulled the scope up the esophagus and out the mouth. The patient tolerated the procedure. He was sent to ICU for recovery. Job ID: [id number] DocumentID: [id number] Dictated Date: 07/15/2019 19:00:50 Broke Beater Operator Date: 07/16/2019 02:26:14 Dictated By: KRISH PARISH DO [facility]
== END | disposition home or self-care (01) ==
LOC: EDUNIT# 16:43 → ER 16:44 → ENDO 17:12
PROVIDERS: ATTEND Surgery
DX: T18.128A Food in esophagus causing other injury, initial encounter (principal); K22.2 Esophageal obstruction; I10 Essential (primary) hypertension; K21.9 Gastro-esophageal reflux disease without esophagitis; Z79.899 Other long term (current) drug therapy; Z79.891 Long term (current) use of opiate analgesic

== ENCOUNTER 2019-12-03 08:05 | Emergency (ER) | payer MEDICARE, OTHER ==
[~2019-12-03] VITALS: Ht 180 cm; Wt 73.0 kg
[~2019-12-03 08:05] MED LIST changes: -LIDOCAINE PF 2% 5 ML (XYLOCAINE) VIAL ONE; -MORP-34 PO; +MORP-69 PO; -ONDANSETRON 4 MG/2 ML (SDV) Z0FRAN ONE; -SEVOFLURANE (ULTANE) 15 ML INHAL SOLN ONE; -SUCCINYLCHOLINE INJ 100 MG/5 ML SYR ONE; -proPOfol 200 MG/20 ML (DIPRIVAN) VIAL IV ONE
--- OUTSIDE RECORDS SUMMARY | 2019-12-03 08:14 | XMS REPORT | Encounter Summary ---
Author Author [facility] Organization [facility] Address Unknown Phone Unavailable Care Team Providers Care Roll Forger Name Role Phone PCP Unavailable Encounter Details Care Team Description Date Type Department Attila Ruano MD retired BENIGN RENETTA CRANIAL NERVE (HCC) [facility] Social History Date Tobacco Use Types Packs/Day Years Used Never Assessed Sex Assigned at Date Recorded Not on file Industry Job Start Date Occupation Not on file Not on file Not on file Travel End Travel History Travel Start No recent travel history available. documented as of this encounter Discharge Summaries * Attila Ruano - 11/02/2013 5:50 PM FRANCHISE SALES REPRESENTATIVE Report Name: TAVON HIGGINS MRN/Unit #: [id number] Attending Physician: ATTILA RUANO Date of : [...] M.D. Dictated By: cc: Santiago Leiva M.D., [place] [address] Zuhair Caraballo M.D. 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 PHYSICAL EXAMINATION: Both tympanic membranes are normal. Heart and lungs are clear. 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 PROPOSED SURGICAL PROCEDURE: Posterolateral craniotomy, translabyrinthine exposure and removal of right 21 mm acoustic tumor on 11/11/2003. Attila Ruano M.D. Dictated By: Cc: CHISE SALES REPRESENTATIVE documented in this encounter Miscellaneous Notes * Operative Note - Attila Ruano - 11/02/2013 5:50 PM FRANCHISE SALES REPRESENTATIVE Report Name: [facility]IGGINS [id number]/Unit #: [id number] Attending Physician: ATTILA RUANO Date of : [...] Attila Ruano M.D. cc: Sid Neely, [address], [place], [place], [address] Santiago Leiva M.D., [facility], [facility], [address], [place], [place], Zuhair Caraballo M.D. CHISE SALES REPRESENTATIVE * Operative Note - Zuhair Caraballo MD - 11/02/2013 5:27 PM FRANCHISE SALES REPRESENTATIVE Report Name: TAVON HIGGINS MRN/Unit #: [id number] Attending Physician: ATTILA RUANO Date of : 1935 DATE OF OPERATION: 11/11/2003. PREOPERATIVE DIAGNOSIS: Left-sided vestibular schwannoma. POSTOPERATIVE DIAGNOSIS: Left-sided vestibular schwannoma. PROCEDURES: 1. Left posterior lateral craniotomy and translabyrinthine approach to vestibular schwannoma. 2. Definitive resection of posterior fossa skull base lesion (vestibular schwannoma). 3. [place] of abdominal fat and fascia. 4. Microdissection. [...] began to gut the tumor using the [employer] ultrasonic aspirator. As we did so, we [...] and dissected the tumor very carefully using [place] elevators off of the facial nerve as [...] condition. Zuhair Caraballo M.D. Dictated By: cc: CHISE SALES REPRESENTATIVE documented in this encounter Plan of Treatment Not on filedocumented as of this encounter Procedures Comments Procedure Name Priority Date/Time Associated Diag nosis [place] HISTOLOGY Routine 11/11/2003 1:53 PM FRANCHISE SALES REPRESENTATIVE documented in this encounter Results * Pathology (11/11/2003 1:53 PM FRANCHISE SALES REPRESENTATIVE) Specimen Narrative Performed At [facility] Order Comments [id number] M 68 YRS SI NSIC 03 S U R G I C A L P A T H O L O G Y [id number] LABORATORY NO/ [id number] SPECIMEN Right vestibular schwannoma GROSS PATHOLOGY Received in formalin in a properly labe led container is a cauterized 1.2 x 1.1 cm pink-red biopsy specimen. Its cut surface has a uniform pink appearance. Bisected. All submitted. KF/sdn JRD/sdn D I A G N O S I S A F T E R M I C R O S C O P I C E X A M I N A T I O N/ Right vestibular tumor, biopsy - Schwreanna noma with ancient change. [id number], [id number], [id number] TRANSCRIBED/ sdn Robert Grossman M.D. 11/12/03 (ELECTRONIC SIGNATURE) PATHOLOGIST COMMENTS The histologic findings show spindled c ells without mitotic activity. There is focal hyperchromasia and nuclear enl argement consistent with ancient change. The associated vessels show f ocal mild hyalinization. Focal foamy macrophages are also present. The spi ndle cell component stains strongly and diffusely with antibody to S-100. The findings are consistent with a schwannoma showing ancient change. QSD635, Z62762, N07173, K50915, T32294, Q48695, I08663 Performing Organization Address City/State/Zipcode Ph one Number [facility] [address] [place], [place] [address] [facility] documented in this encounter Visit Diagnoses Diagnosis Benign neoplasm of cranial nerves (HCC) Benign neoplasm of cranial nerves documented in this encounter
--- OUTSIDE RECORDS SUMMARY | 2019-12-03 08:14 | XMS REPORT | Clinical Summary ---
Author Author [facility] Organization [facility] Address Unknown Phone Unavailable Care Team Providers Care Resistor Inspector Name Role Phone PCP Unavailable Allergies Not [...]
--- OUTSIDE RECORDS SUMMARY | 2019-12-03 08:14 | XMS REPORT | Encounter Summary ---
Author Author [facility] Organization [facility] Address Unknown Phone Unavailable Care Team Providers Care Shank Rander Name Role Phone PCP Unavailable Encounter Details Care Team Description Date Type Department [facility]arito Ru[facility] MD [facility] [address] [place] [address] Social History Date Tobacco Use Types Packs/Day [...] Procedure Name Priority Date/Time Associated Diag nosis COAGULATION SCREEN Routine 11/04/2003 6:18 PM CUSTOMER MANAGEMENT SPECIALIST DIFFERENTIAL Routine 11/04/2003 6:18 PM CUSTOMER MANAGEMENT SPECIALIST URINALYSIS (INCLUDES Routine 11/04/2003 MICROSCOPIC REVIEW, IF 6:18 PM CUSTOMER MANAGEMENT SPECIALIST INDICATED) COMPREHENSIVE METABOLIC Routine 11/04/2003 PANEL 6:18 PM CUSTOMER MANAGEMENT SPECIALIST CBC AND DIFF (MANUAL DIFF Routine 11/04/2003 IF NECESSARY) 6:18 PM CUSTOMER MANAGEMENT SPECIALIST documented in this encounter Results * Comprehensive Metabolic Panel (11/04/2003 6:18 PM CUSTOMER MANAGEMENT SPECIALIST) Albumin 4.4 3.6 - 4.6 G/DL SUNQUEST [...] Aminotransferas e Specimen Blood Performing Organization Address [facility] one Number [facility] [address] [place] [address] [facility] * DIFFERENTIAL (11/04/2003 6:18 PM CUSTOMER MANAGEMENT SPECIALIST) % Neutrophils 53 45 - 78 % [...] TH/UL SUNQUEST Specimen Blood Performing Organization Address [facility] one Number [facility] [address] [place] [address] [facility] * CBC and Diff (manual diff if necessary) (11/04/2003 6:18 PM CUSTOMER MANAGEMENT SPECIALIST) WBC 8.1 4.0 - 11.0 TH/UL SUNQUEST [...] TH/UL SUNQUEST Specimen Blood Performing Organization Address [facility] one Number [facility] [address] [place] [address] SUN[facility] * Urinalysis (11/04/2003 6:18 PM CUSTOMER MANAGEMENT SPECIALIST) Appearance, YELLOW [facility]QUEST Urine Specific >=1.030 <1.030 SUNQUEST [place], UA PH Urine 5.0 5.0 - 8.0 SUNQUEST Hemoglobin NEGATIVE NEGATIVE [facility] Urine Ketones Urine NEGATIVE NEGATIVE [facility] Glucose Urine 250 (A) NEGATIVE SUNQUEST Protein Urine NEGATIVE NEGATIVE [facility] Qual Leukocyte NEGATIVE NEGATIVE [facility] Esterase Urobilinogen NEGATIVE NEGATIVE SUNQUEST Urine Bilirubin Urine NEGATIVE NEGATIVE SUNQUEST Specimen Urine Performing Organization Address [facility] Ph one Number [facility] [address] [place], [place] [address] [facility] * Coagulation Screen (11/04/2003 6:18 PM CUSTOMER MANAGEMENT SPECIALIST) APTT 27 21 - 34 SEC SUNQUEST Protime 12.9 12.1 - 14.5 SEC SUNQUEST INR 1.0 SUNQUEST Platelet Count 296 140 - 400 TH/UL SUNQUEST Fibrinogen 357 146 - 390 MG/DL SUNQUEST Assay Specimen Blood Performing Organization Address [facility] Ph one Number [facility] [address] [place], [place] [address] [facility] documented in this encounter Visit Diagnoses Not on filedocumented in this encounter
--- OUTSIDE RECORDS SUMMARY | 2019-12-03 08:19 | XMS REPORT | CCD ---
Author Author [facility] Organization [facility] Address Unknown Phone Unavailable Care Team Providers Care Minesweeping Officer Name Role Phone Unavailable Unavailable Allergies and Adverse Reactions (C-CDA) Substance Reaction Effective Time Source This section is an empty allergy results section. History Of Immunizations (C-CDA) Vaccine Series # Dosage Date Administered By Drug Claims Examiner Lot Number CVX Code Refusal Reason This section is an empty immunization se ction. There are multiple immunizations systems within the [facility] ([facility]). All immunizations and exemptions/refusals for this patient that are stored in the [facility]'s Clinical Data Repository (CDR) are included here, but this list is empty. Medications (C-CDA) Product Name RouteOfAdministra tion Timing Qty Order Date Order Qty Status Start Date Expiration Date Last Dispensed Date Discontinued Date Source Dosage MORPHINE SULFATE (MORPHINE SULFATE), 30 MG, TABLET ER, ORAL, DUMONT PHARMACE, 100 ea. BOTTLE [id number] 30 Active [id number] Pharmacy [facility] [address] Formulary Units MORPHINE SULFATE (MORPHINE SULFATE), 30 MG, TABLET ER, ORAL, DUMONT PHARMACE, 100 ea. BOTTLE [id number] 30 Active [id number] Pharmacy Data Transaction [facility] [address] Formulary Units TRIAMCINOLONE ACETONIDE (TRIAMCINOLONE A CETONIDE), 0.1%, CREAM(GM), TOPICAL, [employer] 15 g TUBE [id number] 45 Active [id number] Pharmacy Data Transaction Se [address] Formulary Units MORPHINE SULFATE (MORPHINE SULFATE), 30 MG, TABLET ER, ORAL, DUMONT PHARMACE, 100 ea. BOTTLE [id number] 30 Active [id number] Pharmacy Data Transaction Service [address] Formulary Units CEFDINIR (CEFDINIR), 300MG, CAPSULE, ORAL, SANDOZ, 60 ea. BOTTLE [id number] 14 Active [id number] Pharmacy Data Transaction Service [address] Formulary Units MORPHINE SULFATE (MORPHINE SULFATE), 30 MG, TABLET ER, ORAL, DUMONT PHARMACE, 100 ea. BOTTLE [id number] 30 Active [id number] Pharmacy Data Transaction Service [facility] ty [address] [place] [address] Formulary Units MORPHINE SULFATE (MORPHINE SULFATE), 30 MG, TABLET ER, ORAL, DUMONT PHARMACE, 100 ea. BOTTLE [id number] 30 Active [id number] Pharmacy Data Transaction Service [address] Formulary Units SUCRALFATE (SUCRALFATE), 1G, TABLET, ORAL, [place], 500 ea. BOTTLE [id number] 120 Active [id number] Pharmacy Data Transaction Service [address] Formulary Units PANTOPRAZOLE SODIUM (PANTOPRAZOLE SODIUM ), 40 MG, TABLET DR, ORAL, [place], 1000 ea. BOTTLE [id number] 90 Active [id number] Pharmacy Data Transaction [address] Formulary Units PANTOPRAZOLE SODIUM (PANTOPRAZOLE SODIUM ), 40 MG, TABLET DR, ORAL, [place], 1000 ea. BOTTLE [id number] 90 Active [id number] Pharmacy Data Transaction [address] Formulary Units PANTOPRAZOLE SODIUM (PANTOPRAZOLE SODIUM ), 40 MG, TABLET DR, ORAL, [place], 1000 ea. BOTTLE [id number] 90 Active [id number] Pharmacy Data Transaction [address] Formulary Units MORPHINE SULFATE (MORPHINE SULFATE), 30 MG, TABLET ER, ORAL, DUMONT PHARMACE, 100 ea. BOTTLE [id number] 30 Active [id number] Pharmacy Data Transaction Service [address] Formulary Units MORPHINE SULFATE (MORPHINE SULFATE), 30 MG, TABLET ER, ORAL, DUMONT PHARMACE, 100 ea. BOTTLE [id number] 30 Active [id number] Pharmacy Data Transaction Service [address] Formulary Units LISINOPRIL (lisinopril), 20 MG, TABLET, ORAL, LUPIN PHARMACEU, 1000 ea. BOTTLE [id number] 60 Active [id number] Pharmacy Data Transaction Service Facility [address] [place] [address] Formulary Units AMLODIPINE BESYLATE (amlodipine besylate ), 5 MG, TABLET, ORAL, LUPIN PHARMACEU, 1000 ea. BOTTLE [id number] 30 Active [id number] Pharmacy Data Transaction Service Facili ty [address] [place] [address] Formulary Units AMLODIPINE BESYLATE (amlodipine besylate ), 5 MG, TABLET, ORAL, LUPIN PHARMACEU, 1000 ea. BOTTLE [id number] 90 Active [id number] Pharmacy Data Transaction Service [facility] ty [address] [place] [address] Formulary Units LISINOPRIL (lisinopril), 20 MG, TABLET, ORAL, LUPIN PHARMACEU, 1000 ea. BOTTLE [id number] 180 Active [id number] 3 Pharmacy Data Transaction Service Facility [address] [place] [address] Formulary Units LISINOPRIL (lisinopril), 20 MG, TABLET, ORAL, LUPIN PHARMACEU, 1000 ea. BOTTLE [id number] 180 Active [id number] 1 Pharmacy Data Transaction Service Facility [address] [place] [address] Formulary Units AMLODIPINE BESYLATE (amlodipine besylate ), 5 MG, TABLET, ORAL, LUPIN PHARMACEU, 1000 ea. BOTTLE [id number] 90 Active [id number] Pharmacy Data Transaction Service Facil ty [address] [place] [address] Formulary Units LISINOPRIL (lisinopril), 20 MG, TABLET, ORAL, LUPIN PHARMACEU, 1000 ea. BOTTLE [id number] 180 Active [id number] 6 Pharmacy Data Transaction Service [address] Formulary Units MORPHINE SULFATE (MORPHINE SULFATE), 30 MG, TABLET ER, ORAL, DUMONT PHARMACE, 100 ea. BOTTLE [id number] 30 Active [id number] Pharmacy Data Transaction Service Facili [address] Formulary Units MORPHINE SULFATE (MORPHINE SULFATE), 30 MG, TABLET ER, ORAL, DUMONT PHARMACE, 100 ea. BOTTLE [id number] 30 Active [id number] Pharmacy Data Transaction Service [address] Formulary Units MORPHINE SULFATE (MORPHINE SULFATE), 30 MG, TABLET ER, ORAL, DUMONT PHARMACE, 100 ea. BOTTLE [id number] 30 Active [id number] Pharmacy Data Transaction Service [address] Formulary Units This section includes all outpatient medications ordered within the last 15 months. Problem List (C-CDA) Name Status Onset Date Chronicity Code Source This section is an empty problems section. Procedures (C-CDA) Date/Time Procedure Type Provider Procedure Comment This section is an empty procedures section. Diagnostic tests and laboratory results (C-CDA) Collection Date/Time Order/Lee el Test Result Ref Range Interpretation Source Order Comment Result Comment Result Interpretation Comment Specimen This section is an empty lab results sec tion. This section includes all laboratory results (except microbiology and pathology) for the past 15 months up to a maximum of 50 results panels. Vitals (C-CDA) Collection Date/Time Test Result Site Method Source This section is an empty vitals section This section is an empty vitals section. This section includes information documenting the patient's vital signs for the past 15 months up to a maximum of 50 sets. Height and weight values may have been measured or stated by the patient. History of encounters (C-CDA) Date/Time Encounter Type Reason for Visit Provider Disposition Source This section is an empty appointments/ad missions. This section is an empty appointments/admissions. This section includes appointments/admissions for the past 280 months. Insurance providers (C-CDA) Plan Type Plan Name Group No Source Relation to Subscriber This section is an empty insurance secti on. This section contains current third-alliance party (non-) insurance information as known by the Department of Defense. This information is empty. Social History (C-CDA) Tobacco Table Date/Time Provider Tobacco Use What type of tobacco product? Would you like to quit? Amount of tobacco used per day/duration? This section is an empty social history section. No Information Plan of Care (C-CDA) This section is an empty plan of care section. No Information Instructions (C-CDA) This section is an empty Instructions section. No Information Functional Status (C-CDA) This section is an empty functional status section. No Information
--- OUTSIDE RECORDS SUMMARY | 2019-12-03 08:19 | XMS REPORT ---
Author Author Tavon Regan Doctor Organization [facility] Address Unknown Phone Unavailable Care Team Providers Care Court Interpreter Name Role Phone Migration, Doctor Unavailable Unavailable PROBLEMS Type Condition ICD9-CM Code [id number] Code Onset Dates Condition S tatus SNOMED Code Problem Need for prophylactic vaccination and inoculation, Influen za V04.81 Active 672946206 ALLERGIES No Information ENCOUNTERS Encounter Location Date Diagnosis [place] [address] [address] Aug, Encounter for immunization Z23 [place] [address] [address] Jul, [place] [address] [address] Jul, [place] [address] [address] Sep, [place] [address] [address] Sep, IMMUNIZATIONS No Known Immunizations SOCIAL HISTORY Never Assessed REASON FOR VISIT PLAN OF CARE VITAL SIGNS MEDICATIONS Unknown Medications RESULTS No Results PROCEDURES No Known procedures INSTRUCTIONS MEDICATIONS ADMINISTERED No Known Medications
--- NOTE | 2019-12-03 08:27 | NUR ---
PT STATES NO CHANGE IN MEDS AT THIS X
[2019-12-03] MEDS ORDERED: GLUCAGON EMERGENCY 1 MG/KIT IV ONE (08:30)
[2019-12-03] MEDS ORDERED: FAMOTIDINE 20MG/2ML IV (PEPCID) IVP ONE (08:30)
--- NOTE | 2019-12-03 08:37 | ED GI ---
General Chief Complaint: Foreign Body Stated Complaint: FOOD STUCK IN THROAT Nursing Triage Note: PT CO OF DIFFICULTY SWALLOWING STATES HAS PIECE OF CHICKEN CAUGHT IN THROAT SINCE 1400 YESTERDAY. STATES IS UNABLE TO SWALLOW OWN SALIVA, SPITTING IT UP Sepsis Screen: No Definite Risk Source of Information: Patient Exam Limitations: No Limitations History of Present Illness Date Seen by Provider: Dec 03, 2019 Time Seen by Provider: 08:32 Initial Comments This 84-year-old gentleman presents to the emergency room with complaints of food bolus. He noticed this around 14:00 yesterday. He has been unable to eat or drink since that time. He is able to swallow saliva for a brief period of time but then it is regurgitated. He has had food boluses in the past requiring intervention. He has had endoscopy by both Dr. Rojas and Dr. Calderón. His blood pressure is high today because he has not been able to take his medication. Allergies and Home Medications Allergies Coded Allergies: ibuprofen (Verified Allergy, Unknown, RASH, 05/07/09) Home Medications Amlodipine Besylate 5 Mg Tablet, 5 MG PO DAILY, (Reported) Lisinopril 20 Mg Tablet, 20 MG PO BID, (Reported) Morphine Sulfate 30 Mg Tablet.er, 30 MG PO DAILY, (Reported) Pantoprazole Sodium 40 Mg Tablet.dr, 40 MG PO DAILY, (Reported) Patient Home Medication List Home Medication List Reviewed: Yes Review of Systems Review of Systems Constitutional: no symptoms reported EENTM: No Symptoms Reported Respiratory: No Symptoms Reported Cardiovascular: See HPI Gastrointestinal: See HPI Genitourinary: No Symptoms Reported Musculoskeletal: no symptoms reported Skin: no symptoms reported Psychiatric/Neurological: No Symptoms Reported Endocrine: No Symptoms Reported Hematologic/Lymphatic: No Symptoms Reported Past Zehtgmh-Fzkzvc-Ntiytu Hx Past Med/Social Hx: Reviewed and Corrections made Patient Social History Alcohol Use: Denies Use Number of Drinks Today: AA Alcohol Beverage of Choice: Beer Recreational Drug Use: No Smoking Status: Former Smoker Type Used: Cigarettes Former Smoker, Quit: Aug 18, 1986 2nd Hand Smoke Exposure: No Recent Foreign Travel: No Contact w/Someone Who Travel: No Recent Infectious Disease Expo: No Recent Hopitalizations: No Physical Abuse: No Sexual Abuse: No Immunizations Up To Date Tetanus Booster (TDap): Unknown PED Vaccines UTD: No Date of Pneumonia Vaccine: Apr 04, 2011 Date of Influenza Vaccine: May 29, 2019 Seasonal Allergies Seasonal Allergies: Yes Past Medical History Surgeries: Yes Abdominal, Appendectomy, Bowel Surgery, Eye Surgery Respiratory: No Currently Using CPAP: No Currently Using BIPAP: No Cardiac: Yes Hypertension Neurological: No Reproductive Disorders: No Sexually Transmitted Disease: No HIV/AIDS: No Genitourinary: Yes (PROSTATE CANCER--S/P RADIATION SEED IMPLANTS) Gastrointestinal: Yes (history of esophageal food bolus) Gastroesophageal Reflux, Gastrointestinal Bleed, Chronic Constipation, Polyps Musculoskeletal: Yes Arthritis Endocrine: No HEENT: Yes (CATARACTS REMOVED) Dysphagia Cancer: Yes Prostate, Skin Did You Recieve Any Treatments: Yes What Type of Treatment Did You: Radiation Psychosocial: No Integumentary: No Blood Disorders: Yes (ANEMIA) Family Medical History Reviewed Nursing Family Hx Hypertension Physical Exam Vital Signs Vital Signs - First Documented 12/03/19 08:09 Temp 35.9 Pulse 68 Resp 18 B/P (MAP) 171/102 (125) Pulse Ox 96 O2 Delivery Room Air Capillary Refill : Less Than 3 Seconds Height/Weight/BMI Height: 5'11.00" Weight: 155lbs. 0.0oz. 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, no motor/sensory deficits, alert, normal mood/affect, oriented x 3 Skin: normal color, warm/dry Progress/Results/Core Measures Results/Orders My Orders Orders - DENNISE JOVEL MD Famotidine Injection (Pepcid Injection) (12/03/19 08:30) Glucagon Emergency Kit (Glucagon Emergen (12/03/19 08:30) Ed Iv/Invasive Line Start (12/03/19 08:27) Medications Given in ED Current Medications Medications Dose Ordered Sig/Elsa Route Start Time Stop Time Status Last Admin Dose Admin Famotidine 20 mg ONCE ONCE IVP 12/03/19 08:30 12/03/19 08:31 DC 12/03/19 08:33 20 MG Glucagon 1 mg ONCE ONCE IV 12/03/19 08:30 12/03/19 08:31 DC 12/03/19 08:33 1 MG Vital Signs/I&O 12/03/19 08:09 Temp 35.9 Pulse 68 Resp 18 B/P (MAP) 171/102 (125) Pulse Ox 96 O2 Delivery Room Air Blood Pressure Mean: 125 Progress Progress Note #1: Time: 08:35 Progress Note Patient was seen and examined. We will try dose of Pepcid and glucagon. If this does not release of food bolus I will contact the surgeon. Progress Note #2: Time: 08:59 Progress Note Glucagon was not effective. Dr. Rojas has been notified. He can perform endoscopy at about 11:00. Progress Note #3: Time: 09:03 Progress Note Patient's food bolus just resolved. Dr. Rojas was notified. Departure Impression Primary Impression: Esophagus, foreign body Qualified Codes: T18.108A - Unspecified foreign body in esophagus causing other injury, initial encounter Disposition: 01 HOME, SELF-CARE Condition: Improved Departure-Patient Inst. Decision time for Depature: 09:05 Referrals: ARUN DUONG MD (PCP/Family) Primary Care Physician BETTYE ROJAS DO Patient Instructions: Acid Reflux (Gastroesophageal Reflux Disease) in Adults Add. Discharge Instructions: Eat soft foods that are easily swallowed. Avoid foods that are chunky or hard to chew such as meats, solid, etc. Any food that requires chewing please chew thoroughly and carefully. Drink plenty of water or other clear liquids throughout your meals. Follow-up with Dr. Rojas in the office as soon as possible. Return to care if you have worsening symptoms. Continue your usual medications as prescribed. All discharge instructions reviewed with patient and/or family. Voiced understanding. Copy Copies To 1: BETTYE ROJAS DO Copies To 2: ARUN DUONG MD, JOSHUA T MD Dec 03, 2019 08:37
--- NOTE | 2019-12-03 08:45 | NUR ---
PT VOMITED UP VERY SMALL AMOUNT OF CL LIQUID W SOME WHITE SPECTS NOTED
--- NOTE | 2019-12-03 08:50 | NUR ---
SIP OF WATER GIVEN TO PT. PT STATES WATER DID NOT GO DOWN
[2019-12-03 09:12] VITALS: BP 150/96
== END 2019-12-03 09:12 | disposition home or self-care (01) ==
LOC: EDUNIT# 08:05 → ER 08:07
DX: T18.128A Food in esophagus causing other injury, initial encounter (principal); K21.9 Gastro-esophageal reflux disease without esophagitis; K59.09 Other constipation; I10 Essential (primary) hypertension; Z86.010 Personal history of colon polyps; M19.91 Primary osteoarthritis, unspecified site; Z85.46 Personal history of malignant neoplasm of prostate; Z85.828 Personal history of other malignant neoplasm of skin; Z92.3 Personal history of irradiation; Z87.19 Personal history of other diseases of the digestive system; Z87.891 Personal history of nicotine dependence; Z79.899 Other long term (current) drug therapy

== ENCOUNTER 2020-05-24 19:48 | Day surgery (SDC) | payer MEDICARE, OTHER ==
[~2020-05-24] VITALS: Ht 180 cm; Wt 72.5 kg
[~2020-05-24 19:48] MED LIST changes: -PANT40TA3 PO; +PANT40TA52 PO
--- NOTE | 2020-05-24 20:10 | ED GI ---
General Chief Complaint: Foreign Body Stated Complaint: FOOD BOLUS Nursing Triage Note: C/O food bolus in throat x 2 hours after eating chicken. reports is able to get small amounts of water down at this time but most of it comes back up Sepsis Screen: No Definite Risk Source of Information: Patient Exam Limitations: No Limitations History of Present Illness Time Seen by Provider: 19:59 Initial Comments Here with report of food bolus stuck in his esophagus. He was eating chicken tonight when this occurred about 2 hours ago. Since then he's been unable to swallow anything of significance. He states if he takes a sip of water so we'll go down but then he ends up spitting it back up. He's had multiple issues with this and last had upper endoscopy related to food bolus in December of this year. Denies illness otherwise. Timing/Duration: 1-3 Hours Severity/Quality: Moderate Location: Other (esophageal) Radiation: No Radiation Activities at Onset: Other (eating) Modifying Factors: Worsens With Eating Associated Symptoms: No Back Pain, No Chest Pain, No Fever/Chills, No Nausea/Vomiting, No Shortness of Air, No Weakness Allergies and Home Medications Allergies Coded Allergies: ibuprofen (Verified Allergy, Unknown, RASH, 05/07/09) Home Medications Amlodipine Besylate 5 Mg Tablet, 5 MG PO DAILY, (Reported) Lisinopril 20 Mg Tablet, 20 MG PO BID, (Reported) Morphine Sulfate 30 Mg Tablet.er, 30 MG PO DAILY, (Reported) Pantoprazole Sodium 40 Mg Tablet.dr, 40 MG PO DAILY, (Reported) Sucralfate 1 Gm Tablet, 1 GM PO QID Prescribed by: AKIRA LOONEY on 05/24/20 2065 Patient Home Medication List Home Medication List Reviewed: Yes Review of Systems Review of Systems Constitutional: see HPI; No chills, No fever EENTM: No Symptoms Reported Respiratory: No Symptoms Reported Cardiovascular: No Symptoms Reported Gastrointestinal: See HPI Genitourinary: No Symptoms Reported Musculoskeletal: no symptoms reported All Other Systems Reviewed Negative Unless Noted: Yes Past Znhtitf-Bonatv-Dxvkgl Hx Past Med/Social Hx: Reviewed Nursing Past Med/Soc Hx Patient Social History Alcohol Use: Denies Use Number of Drinks Today: AA Alcohol Beverage of Choice: Beer Recreational Drug Use: No Type Used: Cigarettes Former Smoker, Quit: Aug 18, 1986 2nd Hand Smoke Exposure: No Recent Foreign Travel: No Contact w/Someone Who Travel: No Recent Infectious Disease Expo: No Recent Hopitalizations: No Immunizations Up To Date Tetanus Booster (TDap): Unknown PED Vaccines UTD: No Date of Pneumonia Vaccine: Apr 04, 2011 Date of Influenza Vaccine: May 29, 2019 Seasonal Allergies Seasonal Allergies: Yes Past Medical History Surgeries: Yes Abdominal, Appendectomy, Bowel Surgery, Eye Surgery Respiratory: No Currently Using CPAP: No Currently Using BIPAP: No Cardiac: Yes Hypertension Neurological: No Reproductive Disorders: No Sexually Transmitted Disease: No HIV/AIDS: No Genitourinary: Yes (PROSTATE CANCER--S/P RADIATION SEED IMPLANTS) Gastrointestinal: Yes (history of esophageal food bolus) Gastroesophageal Reflux, Gastrointestinal Bleed, Chronic Constipation, Polyps Musculoskeletal: Yes Arthritis Endocrine: No HEENT: Yes (CATARACTS REMOVED) Dysphagia Cancer: Yes Prostate, Skin Did You Recieve Any Treatments: Yes What Type of Treatment Did You: Radiation Psychosocial: No Integumentary: No Blood Disorders: Yes (ANEMIA) Family Medical History Reviewed Nursing Family Hx Hypertension Physical Exam Vital Signs Vital Signs - First Documented 05/24/20 19:54 Temp 36.3 Pulse 75 Resp 18 B/P (MAP) 181/91 (121) Pulse Ox 96 Capillary Refill : Less Than 3 Seconds Height/Weight/BMI Height: 5'11.00" Weight: 155lbs. 0.0oz. [id number]; 22.00 BMI Method:Stated General Appearance: WD/WN, no apparent distress HEENT: PERRL/EOMI, pharynx normal Neck: full range of motion, supple Respiratory: lungs clear, normal breath sounds Cardiovascular: regular rate, rhythm, no murmur Gastrointestinal: non tender, soft Back: normal inspection, no CVA tenderness, no vertebral tenderness Neurologic/Psychiatric: alert, oriented x 3 Skin: normal color, warm/dry Progress/Results/Core Measures Results/Orders Lab Results Laboratory Tests Test 05/24/20 20:15 Range/Units White Blood Count 9.9 4.3-11.0 10^3/uL Red Blood Count 4.75 4.35-5.85 10^6/uL Hemoglobin 15.5 13.3-17.7 G/DL Hematocrit 46 40-54 % Mean Corpuscular Volume 96 80-99 FL Mean Corpuscular Hemoglobin 33 25-34 PG Mean Corpuscular Hemoglobin Concent 34 32-36 G/DL Red Cell Distribution Width 15.4 H 10.0-14.5 % Platelet Count 282 130-400 10^3/uL Mean Platelet Volume 9.8 7.4-10.4 FL Neutrophils (%) (Auto) 50 42-75 % Lymphocytes (%) (Auto) 32 12-44 % Monocytes (%) (Auto) 15 H 0-12 % Eosinophils (%) (Auto) 2 0-10 % Basophils (%) (Auto) 1 0-10 % Neutrophils # (Auto) 5.0 1.8-7.8 X 10^3 Lymphocytes # (Auto) 3.1 1.0-4.0 X 10^3 Monocytes # (Auto) 1.5 H 0.0-1.0 X 10^3 Eosinophils # (Auto) 0.2 0.0-0.3 10^3/uL Basophils # (Auto) 0.1 0.0-0.1 10^3/uL Sodium Level 137 135-145 MMOL/L Potassium Level 4.0 3.6-5.0 MMOL/L Chloride Level 104 98-107 MMOL/L Carbon Dioxide Level 19 L 21-32 MMOL/L Anion Gap 14 5-14 MMOL/L Blood Urea Nitrogen 18 7-18 MG/DL Creatinine 1.27 0.60-1.30 MG/DL Estimat Glomerular Filtration Rate 54 BUN/Creatinine Ratio 14 Glucose Level 84 70-105 MG/DL Calcium Level 9.0 8.5-10.1 MG/DL Corrected Calcium 8.8 8.5-10.1 MG/DL Total Bilirubin 0.5 0.1-1.0 MG/DL Aspartate Amino Transf (AST/SGOT) 31 5-34 U/L Alanine Aminotransferase (ALT/SGPT) 19 0-55 U/L Alkaline Phosphatase 76 40-136 U/L Total Protein 7.7 6.4-8.2 GM/DL Albumin 4.3 3.2-4.5 GM/DL My Orders Orders - SIGIFREDO ADAMS MD Ed Iv/Invasive Line Start (05/24/20 20:04) Cbc With Automated Diff (05/24/20 20:04) Comprehensive Metabolic Panel (05/24/20 20:04) Vital Signs/I&O 05/24/20 19:54 Temp 36.3 Pulse 75 Resp 18 B/P (MAP) 181/91 (121) Pulse Ox 96 Blood Pressure Mean: 121 Progress Progress Note : Progress Note Seen and evaluated. IV and labs ordered. I did discuss the case with Dr. Looney and we will go ahead and initiate called to endoscopy crew for removal of food bolus obstruction. He will come see the patient. Patient informed and agrees. Monitor patient. Departure Communication (Admissions) Time/Spoke to Consulting Phy: 20:08 Impression Primary Impression: Foreign body in esophagus Qualified Codes: T18.108A - Unspecified foreign body in esophagus causing other injury, initial encounter Departure-Patient Inst. Referrals: ARUN DUONG MD (PCP/Family) Primary Care Physician Scripts Sucralfate (Carafate) 1 Gm Tablet 1 GM PO QID, #120 TAB Prov: AKIRA LOONEY DO 05/24/20 SIGIFREDO ADAMS MD May 24, 2020 20:10
[2020-05-24] MEDS ORDERED: SUCCINYLCHOLINE INJ 100 MG/5 ML SYR/VIAL ONE (20:37)
[2020-05-24] MEDS ORDERED: LIDOCAINE PF 2% 5 ML (XYLOCAINE) VIAL ONE (20:37)
[2020-05-24] MEDS ORDERED: proPOfol 200 MG/20 ML (DIPRIVAN) VIAL IV ONE (20:37)
[2020-05-24] MEDS ORDERED: ONDANSETRON 4 MG/2 ML (SDV) Z0FRAN ONE ×2 (20:37→21:02)
[2020-05-24] MEDS ORDERED: MIDAZOLAM 2 MG/2 ML (VERSED) VIAL ONE (20:38)
[2020-05-24] MEDS ORDERED: fentaNYL INJECTION 100 MCG/2 ML AMP ONE (20:38)
[2020-05-24 20:39] LABS: BASOPHILS # (AUTO) 0.1 10^3/uL (0.0-0.1); BASOPHILS % (AUTO) 1 % (0-10); EOSINOPHILS # (AUTO) 0.2 10^3/uL (0.0-0.3); EOSINOPHILS % (AUTO) 2 % (0-10); HEMATOCRIT 46 % (40-54); HEMOGLOBIN 15.5 G/DL (13.3-17.7); LYMPHOCYTES # (AUTO) 3.1 X 10^3 (1.0-4.0); LYMPHOCYTES % (AUTO) 32 % (12-44); MEAN CORPUSCULAR HEMOGLOBIN 33 PG (25-34); MEAN CORPUSCULAR HGB CONC 34 G/DL (32-36); MEAN CORPUSCULAR VOLUME 96 FL (80-99); MEAN PLATELET VOLUME 9.8 FL (7.4-10.4); MONOCYTES # (AUTO) 1.5 X 10^3 (0.0-1.0); MONOCYTES % (AUTO) 15 % (0-12); NEUTROPHILS % (AUTO) 50 % (42-75); PLATELET COUNT 282 10^3/uL (130-400); WHITE BLOOD COUNT 9.9 10^3/uL (4.3-11.0)
[2020-05-24] MEDS ORDERED: SEVOFLURANE (ULTANE) 15 ML INHAL SOLN ONE (20:41)
[2020-05-24 20:42] LABS: ALBUMIN 4.3 GM/DL (3.2-4.5)
[2020-05-24 20:45] LABS: TOTAL PROTEIN 7.7 GM/DL (6.4-8.2)
[2020-05-24 20:47] LABS: BILIRUBIN,TOTAL 0.5 MG/DL (0.1-1.0)
[2020-05-24 20:49] LABS: CREATININE SERUM 1.27 MG/DL (0.60-1.30)
--- NOTE | 2020-05-24 20:49 | Consultation - Surgery ---
History of Present Illness History of Present Illness Patient Consulted On(adonis/time) 05/24/20 20:44 Date Seen by Provider: May 24, 2020 Time Seen by Provider: 20:44 History of Present Illness Consult requsted by Dr. Mejía for esophageal obstruction. Seen and evaluated in ER. Patient is an 85 year old male who was eating chicken at 6 pm and felt it get stuck. Unable to get it to go down. Liquids come back up. No pain. Has had multiple times before requiring EGD. Has reflux which acid soda jerker helps. Nothing makes worse that he knows. Patient denies fever sweats chills shortness of breath or chest pain. Allergies and Home Medications Allergies Coded Allergies: ibuprofen (Verified Allergy, Unknown, RASH, 05/07/09) Home Medications Amlodipine Besylate 5 Mg Tablet, 5 MG PO DAILY, (Reported) Lisinopril 20 Mg Tablet, 20 MG PO BID, (Reported) Morphine Sulfate 30 Mg Tablet.er, 30 MG PO DAILY, (Reported) Pantoprazole Sodium 40 Mg Tablet.dr, 40 MG PO DAILY, (Reported) Patient Home Medication List Home Medication List Reviewed: Yes Past Snvwpdu-Gseyuz-Bwarvb Hx Patient Social History Alcohol Use: Denies Use Number of Drinks Today: AA Recreational Drug Use: No Former Smoker, Quit: Aug 18, 1986 Type Used: Cigarettes 2nd Hand Smoke Exposure: No Recent Foreign Travel: No Contact w/Someone Who Travel: No Recent Infectious Disease Expo: No Recent Hopitalizations: No Immunizations Up To Date Tetanus Booster (TDap): Unknown PED Vaccines UTD: No Date of Pneumonia Vaccine: Apr 04, 2011 Date of Influenza Vaccine: May 29, 2019 Seasonal Allergies Seasonal Allergies: Yes Surgeries History of Surgeries: Yes Surgeries: Abdominal, Appendectomy, Bowel Surgery, Eye Surgery Respiratory History of Respiratory Disorde: No Cardiovascular History of Cardiac Disorders: Yes Cardiac Disorders: Hypertension Neurological History of Neurological Disord: No Reproductive System Hx Reproductive Disorders: No Sexually Transmitted Disease: No HIV/AIDS: No Genitourinary History of Genitourinary Disor: Yes (PROSTATE CANCER--S/P RADIATION SEED IMPLANTS) Gastrointestinal History of Gastrointestinal Di: Yes (history of esophageal food bolus) Gastrointestinal Disorders: Gastroesophageal Reflux, Gastrointestinal Bleed, Chronic Constipation, Polyps Musculoskeletal History of Musculoskeletal Dis: Yes Musculoskeletal Disorders: Arthritis Endocrine History of Endocrine Disorders: No HEENT History of HEENT Disorders: Yes (CATARACTS REMOVED) HEENT Disorders: Dysphagia Cancer History of Cancer: Yes Cancer: Prostate, Skin Psychosocial History of Psychiatric Problem: No Integumentary History of Skin or Integumenta: No Blood Transfusions History of Blood Disorders: Yes (ANEMIA) Reviewed Nursing Assessment Reviewed/Agree w Nursing PMH: Yes Family Medical History Significant Family History: Hypertension Review of Systems-General Constitutional: No chills, No diaphoresis EENTM: No ear pain, No blurred vision Respiratory: No cough, No short of breath Cardiovascular: No chest pain, No edema Gastrointestinal: dysphagia, nausea, vomiting Genitourinary: No decreased output, No discharge Musculoskeletal: No back pain, No joint pain Skin: No change in color, No change in hair/nails Psychiatric/Neurological: Denies Anxiety, Denies Depressed All Other Systems Reviewed Negative Unless Noted: Yes (Negative excepted noted.) Physical Exam-General Problems Physical Exam Vital Signs Vital Signs - First Documented 05/24/20 19:54 Temp 36.3 Pulse 75 Resp 18 B/P (MAP) 181/91 (121) Pulse Ox 96 Capillary Refill : Less Than 3 Seconds General Appearance: WD/WN, no apparent distress HEENT: PERRL/EOMI, normal ENT inspection Neck: full range of motion, supple, normal inspection Respiratory: chest non-tender, no respiratory distress, no accessory muscle use Cardiovascular: regular rate, rhythm, no edema, no JVD Gastrointestinal: non tender, soft, no organomegaly Rectal: deferred Back: no CVA tenderness Extremities: non-tender, normal inspection Neurologic/Psychiatric: alert, normal mood/affect, oriented x 3 Skin: normal color, warm/dry Lymphatic: no adenopathy Data Review Labs Laboratory Tests 05/24/20 20:15: White Blood Count 9.9, Red Blood Count 4.75, Hemoglobin 15.5, Hematocrit 46, Mean Corpuscular Volume 96, Mean Corpuscular Hemoglobin 33, Mean Corpuscular Hemoglobin Concent 34, Red Cell Distribution Width 15.4H, Platelet Count 282, Mean Platelet Volume 9.8, Neutrophils (%) (Auto) 50, Lymphocytes (%) (Auto) 32, Monocytes (%) (Auto) 15H, Eosinophils (%) (Auto) 2, Basophils (%) (Auto) 1, Neutrophils # (Auto) 5.0, Lymphocytes # (Auto) 3.1, Monocytes # (Auto) 1.5H, Eosinophils # (Auto) 0.2, Basophils # (Auto) 0.1, Sodium Level 137, Potassium Level 4.0, Chloride Level 104, Calcium Level 9.0, Corrected Calcium 8.8, Albumin 4.3 Assessment/Plan Assessment/Plan Assessment/Plan esophageal obstruction food bolus gerd patient explained risks and benefits of egd and removal of food bolus he understands risks and benefits and wishes to proceed. to OR for EGD AKIRA RODRIGUEZ DO May 24, 2020 20:49
[2020-05-24] MEDS ORDERED: SUCR1TAB36 PO (21:19)
[2020-05-24 21:21] VITALS: BP 130/87
--- NOTE | 2020-05-24 21:21 | Discharge Inst-Simple/Standard ---
Discharge Inst-Standard Discharge Medications New, Converted or Re-Newed RX: RX on Chart (with carafate make a slurry with the pill by mixing it with a tiny amount of water then drink it down.) Patient Instructions/Follow Up Plan of Care/Instructions/FU: Dr. Parish 2 weeks. Activity as Tolerated: Yes Discharge Diet: Liquid Diet ( for 2 days then slowly advance.) AKIRA RODRIGUEZ DO May 24, 2020 21:21
--- NOTE | 2020-05-24 21:26 | Progress Note-Post Operative ---
Post-Operative Progess Note Surgeon (s)/Milk Vendor (s) Surgeon AKIRA RODRIGUEZ DO Milk Vendor: na Pre-Operative Diagnosis esoph obstuction, food bolus, hx stricture. Post-Operative Diagnosis esoph obstuction, food bolus, esophageal stricture, hx of bill sin II Procedure & Operative Findings Date of Procedure 05/24/20 Procedure Performed/Findings egd with removal of esophageal food bolus Anesthesia Type gen Estimated Blood Loss Estimated blood loss (mL): scant Specimens/Packing Specimens Removed na AKIRA RODRIGUEZ DO May 24, 2020 21:26
[2020-05-24 21:30] VITALS: BP 164/85
[2020-05-24] MEDS ORDERED: ONDANSETRON 4 MG/2 ML (SDV) Z0FRAN IVP PRN (21:30)
[2020-05-24] MEDS ORDERED: morphine INJ 10 MG/ML 1ML (SYR OR VIAL) IVP ONE (21:30)
[2020-05-24 21:40] VITALS: BP 167/91
[2020-05-24 21:50] VITALS: BP 170/87
[2020-05-24 22:00] VITALS: BP 172/92
[2020-05-24 22:10] VITALS: BP 158/86
--- NOTE | 2020-05-24 22:15 | OPERATIVE REPORT ---
DATE OF SERVICE: 05/24/2020 PREOPERATIVE DIAGNOSES: 1. Esophageal obstruction food bolus. 2. History of stricture. POSTOPERATIVE DIAGNOSES: 1. Esophageal obstruction food bolus. 2. 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 SURGEON: Akira Looney DO ANESTHESIA: General. ESTIMATED BLOOD LOSS: Scant. COMPLICATIONS: None. PROCEDURE PERFORMED: EGD with removal of esophageal food bolus. INDICATIONS: The patient is an 85-year-old male who was eating some chicken when felt he had lodged in the distal esophagus. Unable to keep liquids or foods down. Cannot get it removed. He understands risks and benefits of procedure and wished to proceed with procedure. Consent was signed in the chart. DESCRIPTION OF PROCEDURE: The patient was taken to the operating suite. A timeout was performed. Scope was inserted in mouth, down into the esophagus, which a piece of chicken was stuck up to the distal esophagus right at the GE junction. The scope was able to be manipulated in order to push this through the stricture. The scope was then advanced through the stricture as well, which did cause a little bit of dilatation to the GE junction. The stomach was insufflated. Evidence of a Billroth II was present. Scope was fit down against with no other pathology noted. Scope was returned back to stomach where it was further insufflated and retroflexed noting a pretty tight fit around the scope. No other pathology noted. Scope was then returned to its normal position, slowly withdrawn to distal esophagus, which has some inflamed changes and evidence of the stricture. The scope was then slowly retracted back until completely removed noting no other pathology. RECOMMENDATIONS: The patient will stay on liquid diet for 2 days and slowly advance. We will add Carafate to his Protonix. The patient will follow up with Dr. Parish in 2 weeks. If unable to get in with him who is his regular surgeon, we will have him see myself. We would recommend a repeat EGD in approximately 6 weeks with dilatation at that time. The patient may need multiple dilatations to improve the area for this not happen again. Job ID: [id number] DocumentID: [id number] Dictated Date: 05/24/2020 21:31:05 Routing Equipment Tender Date: 05/24/2020 22:15:07 Dictated By: AKIRA LOONEY DO
--- NOTE | 2020-05-24 23:27 | NUR ---
PT URINATED 600CC PRIOR TO DISCHARGE. DRANK WATER WITH NO ISSUES OR COMPLAINTS AND AMBULATED IN ROOM. IV REMOVED AND CATHETER TIP INTACT. DISCHARGE INSTRUCTIONS GIVEN TO PT. PT HAS NO QUESTIONS OR CONCERNS.
--- NOTE | 2020-05-25 13:19 | Anesthesia-General Post-Op ---
General Patient Condition Mental Status/LOC: Same as Preop Cardiovascular: Satisfactory Nausea/Vomiting: Absent Respiratory: Satisfactory Pain: Controlled Complications: Absent Post Op Complications Complications None Follow Up Care/Instructions Patient Instructions None needed. Anesthesia/Patient Condition Patient Condition Patient was doing well, no complaints, stable vital signs, no apparent adverse anesthesia problems. No complications reported per nursing, thus patient was discharged. JOAQUIN CAIN CRNA May 25, 2020 13:19
== END 2020-05-24 23:10 ==
LOC: EDUNIT# 19:48 → ER 19:49 → ENDO 20:18
PROVIDERS: ATTEND Surgery
DX: T18.128A Food in esophagus causing other injury, initial encounter (principal); K22.2 Esophageal obstruction; I10 Essential (primary) hypertension; K21.9 Gastro-esophageal reflux disease without esophagitis; M19.90 Unspecified osteoarthritis, unspecified site; Z79.899 Other long term (current) drug therapy; Z88.5 Allergy status to narcotic agent; Z87.891 Personal history of nicotine dependence; Z85.46 Personal history of malignant neoplasm of prostate; Z85.828 Personal history of other malignant neoplasm of skin
CPT/HCPCS: 36415; 80053; 85025; 93005

== ENCOUNTER 2020-06-19 17:13 | Emergency (ER) | payer MEDICARE, OTHER ==
[~2020-06-19] VITALS: Ht 152 cm; Wt 72.5 kg
[2020-06-19] VITALS (18 sets, daily range): BP systolic 115–206; BP diastolic 56–88
[~2020-06-19 17:13] MED LIST changes: +SUCR1TAB36 PO
--- NOTE | 2020-06-19 17:30 | ED GI ---
General Stated Complaint: FOOD IN THROAT Source of Information: Patient Exam Limitations: No Limitations History of Present Illness Date Seen by Provider: Jun 19, 2020 Time Seen by Provider: 17:24 Initial Comments To ER by private vehicle with reports of food stuck in his throat. He's had this happen multiple times and has required multiple EGD for dilation of strictures and removal of food impaction. One hour ago he was eating roast and he is subsequently unable to swallow his own secretions and arrives to ER spitting them into a bag. Timing/Duration: 1 Hour Severity/Quality: Moderate Radiation: No Radiation Activities at Onset: None Associated Symptoms: Denies Symptoms Allergies and Home Medications Allergies Coded Allergies: ibuprofen (Verified Allergy, Unknown, RASH, 05/07/09) Home Medications Amlodipine Besylate 5 Mg Tablet, 5 MG PO DAILY, (Reported) Lisinopril 20 Mg Tablet, 20 MG PO BID, (Reported) Morphine Sulfate 30 Mg Tablet.er, 30 MG PO DAILY, (Reported) Pantoprazole Sodium 40 Mg Tablet.dr, 40 MG PO DAILY, (Reported) Sucralfate 1 Gm Tablet, 1 GM PO QID Prescribed by: AKIRA RODRIGUEZ on 05/24/202118 Patient Home Medication List Home Medication List Reviewed: Yes Review of Systems Review of Systems Constitutional: see HPI EENTM: No Symptoms Reported Respiratory: No Symptoms Reported Cardiovascular: No Symptoms Reported Gastrointestinal: See HPI Genitourinary: No Symptoms Reported Musculoskeletal: no symptoms reported Skin: no symptoms reported Psychiatric/Neurological: No Symptoms Reported Endocrine: No Symptoms Reported Hematologic/Lymphatic: No Symptoms Reported Past Yekltgg-Wyzmkk-Qtcrwu Hx Patient Social History Alcohol Beverage of Choice: Beer Type Used: Cigarettes Former Smoker, Quit: Aug 18, 1986 2nd Hand Smoke Exposure: No Recent Foreign Travel: No Contact w/Someone Who Travel: No Recent Hopitalizations: No Immunizations Up To Date Tetanus Booster (TDap): Unknown PED Vaccines UTD: No Date of Pneumonia Vaccine: Apr 04, 2011 Date of Influenza Vaccine: May 29, 2019 Seasonal Allergies Seasonal Allergies: Yes Past Medical History Surgeries: Yes Abdominal, Appendectomy, Bowel Surgery, Eye Surgery Respiratory: No Currently Using CPAP: No Currently Using BIPAP: No Cardiac: Yes Hypertension Neurological: No Reproductive Disorders: No Sexually Transmitted Disease: No HIV/AIDS: No Genitourinary: Yes (PROSTATE CANCER--S/P RADIATION SEED IMPLANTS) Gastrointestinal: Yes (history of esophageal food bolus) Gastroesophageal Reflux, Gastrointestinal Bleed, Chronic Constipation, Polyps Musculoskeletal: Yes Arthritis Endocrine: No HEENT: Yes (CATARACTS REMOVED) Dysphagia Cancer: Yes Prostate, Skin Did You Recieve Any Treatments: Yes What Type of Treatment Did You: Radiation Psychosocial: No Integumentary: No Blood Disorders: Yes (ANEMIA) Family Medical History Hypertension Physical Exam Vital Signs Vital Signs - First Documented 06/19/20 17:26 Temp 36.9 Pulse 74 Resp 16 B/P (MAP) 167/85 (112) Pulse Ox 97 O2 Delivery Room Air Capillary Refill : Height/Weight/BMI Height: 5'11.00" Weight: 155lbs. 0.0oz. 70.290640qk; 22.00 BMI Method:Stated General Appearance: WD/WN, no apparent distress HEENT: PERRL/EOMI, normal ENT inspection Respiratory: no respiratory distress, no accessory muscle use Gastrointestinal: normal bowel sounds, non tender Extremities: normal range of motion, non-tender Neurologic/Psychiatric: alert, normal mood/affect, oriented x 3 Skin: normal color, warm/dry Progress/Results/Core Measures Results/Orders Vital Signs/I&O 06/19/20 17:26 Temp 36.9 Pulse 74 Resp 16 B/P (MAP) 167/85 (112) Pulse Ox 97 O2 Delivery Room Air Departure Communication (Admissions) Spoke with Dr. FITCH at 1733, will call in the surgery crew for endoscopy this evening. Impression Primary Impression: Foreign body in esophagus Disposition: 01 HOME, SELF-CARE Condition: Stable Departure-Patient Inst. Referrals: ARUN DUONG MD (PCP/Family) Primary Care Physician LAZARA SANTANA APRN Jun 19, 2020 17:30
[2020-06-19] MEDS ORDERED: ONDANSETRON 4 MG/2 ML (SDV) Z0FRAN IVP ONE (17:45)
[2020-06-19] MEDS ORDERED: GLUCAGON EMERGENCY 1 MG/KIT IV ONE (17:45)
--- NOTE | 2020-06-19 18:00 | Conscious Sedation/ASA ---
Conscious Sedation Pre-Proced Time 18:00 ASA Score 3 For ASA 3 and 4: Consider anesthesia and medical clearance. Also, for patients with a history of failed moderate sedation consider anesthesia. Airway Lungs Heart ASA score ASA 1: a normal healthy patient ASA 2: a patient with a mild systemic disease (mid diabetes, controlled hypertension, obesity ASA 3: a patient with a severe systemic disease that limits activity (angina, COPD, prior Myocardial infarction) ASA 4: a patient with an incapacitating disease that is a constant threat to life (CHF, renal failure) ASA 5: a moribund patient not expected to survive 24 hrs. (ruptured aneurysm) ASA 6: a declared brain- patient whose organs are being harvested. For emergent operations, add the letter E after the classification Mallampati Classification Grade 2 Sedation Plan Analgesia, Amnesia, Plan communicated to team members, Discussed options with patient/fam, Discussed risks with patient/fam The patient is an appropriate candidate to undergo the planned procedure, sedation, and anesthesia. The patient immediately re-assessed prior to indication. NATE FITCH MD Jun 19, 2020 18:00
--- NOTE | 2020-06-19 18:00 | NUR ---
PATIENT TO EGD
--- NOTE | 2020-06-19 18:01 | Progress Note-Pre Operative ---
Pre-Operative Progress Note H&P Reviewed The H&P was reviewed, patient examined and no changes noted. Date Seen by Provider: Jun 19, 2020 Time Seen by Provider: 18:00 Date H&P Reviewed: Jun 19, 2020 Time H&P Reviewed: 18:00 Pre-Operative Diagnosis: esophageal FB with hx GERD and stricture NATE FITCH MD Jun 19, 2020 18:01
--- NOTE | 2020-06-19 18:02 | Discharge Inst-Surgical ---
D/C Lap Instructions-CONSTANTINE Follow Up Appt in 6 weeks Activity as tolerated High Fiber Diet 25g or more per day Avoid Alcohol, Caffeine, Spicy Martha and Acid foods. Drink 64 fluid oz or more of fluids per day. Symptoms to Report: Fever over 101 degree F, Nausea/Vomiting If any problems/questions: Contact your physician or go to Emergency Room NATE FITCH MD Jun 19, 2020 18:02
[2020-06-19] MEDS ORDERED: MIDAZOLAM 5 MG/5 ML (VERSED) VIAL ONE ×2 (18:08→18:25)
[2020-06-19] MEDS ORDERED: LIDOCAINE JELLY 2% 6 ML SYRINGE ONE (18:08)
[2020-06-19] MEDS ORDERED: HURRICAINE EXT TUBE (BENZOCAINE) ONE (18:08)
[2020-06-19] MEDS ORDERED: fentaNYL INJECTION 100 MCG/2 ML AMP ONE (18:08)
[2020-06-19] MEDS ORDERED: NS IV 500 ML 500 ML ONE (18:12)
--- NOTE | 2020-06-19 18:40 | HISTORY AND PHYSICAL ---
DATE OF SERVICE: ATTENDING PRIMARY CARE PHYSICIAN: Andree Paris MD. HISTORY OF PRESENT ILLNESS: The patient is an 85-year-old male, who presented to the Emergency Department with dysphagia. He has had multiple EGDs as well as removal of foreign body and dilatation in the past. We had done an EGD and removal of foreign body last in 07/2019. He presents today again with dysphagia and pressure sensation in the substernal region for the past hour and is unable to swallow his own saliva. PAST MEDICAL HISTORY: Gastroesophageal reflux disease, history of esophageal stricture, hypertension, chronic constipation, degenerative joint disease, history of prostate cancer, bilateral cataracts. PAST SURGICAL HISTORY: Partial gastric resection, appendectomy, bilateral cataract surgery. ALLERGIES: IBUPROFEN. MEDICATIONS: Amlodipine 5 mg daily, lisinopril 20 mg b.i.d., morphine 30 mg daily, Protonix 40 mg daily, Carafate 1 gram q.i.d. SOCIAL HISTORY: Previous smoker, quit in 1985. Does drink beer daily. FAMILY HISTORY: Noncontributory. VITAL SIGNS: Temperature 36.9, blood pressure 167/85, pulse 74, respirations 16, pulse ox 97% on room air. REVIEW OF SYSTEMS: Well-nourished male, currently guarded secondary to the dysphagia. He is unable to swallow of his saliva. Does not report any retching as well as no hematemesis or coffee ground emesis. History of constipation, no red blood per rectum, no dark tarry stools. No fever, chills, no recent inadvertent weight loss. All other review of systems negative. PHYSICAL EXAMINATION: CHEST: Few scattered rales and rhonchi bilaterally. HEART: Regular, no murmurs. EXTREMITIES: No lower extremity edema, negative Homans sign. HEENT: No scleral icterus. NECK: No cervical lymphadenopathy. ABDOMEN: Soft, nondistended. There is mild discomfort in the epigastric region upon deep palpation. SKIN: Warm, dry. ASSESSMENT AND PLAN: An 85-year-old male with history of significant reflux esophagitis as well as an esophageal stricture with recurrent episodes of impacted esophageal foreign body. He has experienced another episode and we will proceed with an EGD as well as removal of the foreign body as well as possible dilatation. Job ID: [id number] DocumentID: [id number] Dictated Date: 06/19/2020 18:00:29 Vending Manager Date: 06/19/2020 18:39:23 Dictated By: NATE FITCH MD
[2020-06-19] MEDS ORDERED: NS IV 500 ML 500 ML IV PRN (19:08)
[2020-06-19] MEDS ORDERED: fentaNYL INJECTION 100 MCG/2 ML AMP IVP ONE (19:15)
[2020-06-19] MEDS ORDERED: HURRICAINE EXT TUBE (BENZOCAINE) XX PRN (19:15)
[2020-06-19] MEDS ORDERED: LIDOCAINE JELLY 2% 6 ML SYRINGE MM PRN (19:15)
[2020-06-19] MEDS ORDERED: MIDAZOLAM 5 MG/5 ML (VERSED) VIAL IV ONE (19:15)
--- NOTE | 2020-06-20 00:58 | OPERATIVE REPORT ---
DATE OF SERVICE: 06/19/2020 ATTENDING PRIMARY CARE PHYSICIAN: Andree Paris MD PREOPERATIVE DIAGNOSES: Recurrent dysphagia and history of esophageal stricture. POSTOPERATIVE DIAGNOSES: Esophageal foreign body, severe distal esophageal stricture, reflux esophagitis stage III, severe gastritis of the stomach remnant, Laura limb appeared normal with no distal obstructions. PROCEDURE: EGD with removal of foreign body, biopsy and balloon dilatation. SURGEON: Nate Fitch MD ANESTHESIA: Conscious sedation. ESTIMATED BLOOD LOSS: Minimal. FINDINGS: Same as postoperative diagnosis. DISPOSITION: The patient tolerated the procedure well. INDICATIONS: The patient is an 85-year-old male known to us. He has had a long-standing history of peptic ulcer disease and underwent what appears to be antrectomy and gastrojejunostomy. He has had multiple episodes of reflux, regurgitation as well as dysphagia and has been found to have an esophageal stricture on multiple events. He is also noncompliant and does drink alcohol on a daily basis. He presented to the Emergency Department again with dysphagia with epigastric pressure sensation and inability to swallow his own saliva. DESCRIPTION OF PROCEDURE: The patient was brought to the endoscopy suite, laid in the left lateral decubitus position. After adequate IV pain and stated medications and conscious sedation anesthesia, the mouthpiece was applied. The endoscope was placed in the mouth, visualizing the pharynx and hypopharyngeal region. Vocal cords, epiglottis and vallecula identified and appeared to be normal. Endoscope was then gently intubated, esophageal opening and esophagus insufflated. The endoscope was then advanced to the first, second and third portion of the esophagus at the distal part of the esophagus, esophageal foreign body, which represented checking was identified. This was removed in piecemeal fashion using a prong until this was small enough to reduce through the stricture. There was a significant stricture identified. A biopsy was taken with forceps with visualization of good hemostasis. The endoscope was then advanced in the stomach and endoscope retroflexed, visualizing the stricture as well as a significant gastritis of the stomach remnant; however, no formal ulcerations. The gastrojejunostomy appeared normal with no ulcerations as well as no distal obstructions. We then proceeded with balloon dilatation of the severe distal esophageal stricture with a small balloon. We first proceeded 2 atmospheres of pressure with minimal resistance. We then slowly went to 4 and then 5 atmospheres of pressure, which equals approximately 11 mm in luminal diameter with moderate resistance and left this in place for 60 seconds. The balloon was then desufflated and removed with visualization of good hemostasis as well as no mucosal tears. The endoscope was then slowly withdrawn while taking a second look and suctioning of residual air with no additional findings. The patient tolerated the procedure well. We will recommend that he proceed with a clear liquid diet for the next few days and slowly advance as tolerated to a soft diet. Instead of having recurrent episodes of dysphagia and presentation to the Emergency Department, it would be more beneficial if he proceeded with a graded dilatation on a regular basis and we will have him follow up in the office in approximately 4 weeks. He is also instructed to continue his Protonix and Carafate and proceed with alcohol cessation. Job ID: [id number] DocumentID: [id number] Dictated Date: 06/19/2020 19:01:13 Hospital Technician Date: 06/20/2020 00:58:06 Dictated By: NATE FITCH MD
== END 2020-06-19 19:52 | disposition home or self-care (01) ==
LOC: EDUNIT# 17:13 → ER 17:16
DX: T18.128A Food in esophagus causing other injury, initial encounter (principal); I10 Essential (primary) hypertension; K21.9 Gastro-esophageal reflux disease without esophagitis; Z82.49 Family history of ischemic heart disease and other diseases of the circulatory system; Z85.46 Personal history of malignant neoplasm of prostate; Z85.828 Personal history of other malignant neoplasm of skin; Z87.891 Personal history of nicotine dependence; Z88.6 Allergy status to analgesic agent; X58.XXXA Exposure to other specified factors, initial encounter
CPT/HCPCS: 99284; U0002; 87635

== ENCOUNTER 2020-07-15 09:24 | Day surgery (SDC) | payer MEDICARE, OTHER ==
[~2020-07-15] VITALS: Ht 180.3 cm; Wt 72.7 kg
[2020-07-15] VITALS (10 sets, daily range): BP systolic 116–180; BP diastolic 60–83
[~2020-07-15 09:24] MED LIST changes: +AMLO-250 PO; -AMLO5TAB9 PO
[2020-07-15] MEDS ORDERED: GLUCAGON EMERGENCY 1 MG/KIT ONE (09:42)
[2020-07-15] MEDS ORDERED: GLUCAGON EMERGENCY 1 MG/KIT IV ONE (09:45)
--- NOTE | 2020-07-15 09:45 | ED General ---
General Chief Complaint: General Problems/Pain Stated Complaint: FOOD BOLIUS Nursing Triage Note: TO ED PER W/C ATE FISH LAST NIGHT THINKS HE MAY HAVE SOME CAUGHT UNABLE TO SWALLOW HIS SLAVIA. Nursing Sepsis Screen: No Definite Risk Source of Information: Patient Exam Limitations: No Limitations History of Present Illness Date Seen by Provider: Jul 15, 2020 Time Seen by Provider: 09:30 Initial Comments Patient is an 85-year-old male who presents to the emergency department today with a chief complaint of having food stuck in his esophagus. Patient states that he was eating fish (non bony tillapia fillet) last night around 9 PM when he suddenly had the feeling that the food became stuck. He states this is happened multiple times in the past. Patient states most recently has been around a month ago. Patient states he feels that the food is caught low in his esophagus and points to the epigastrium. Patient has been having a hard time handling his own secretions and is frequently spitting all telling his story here in the emergency department. He denies any actual chest pain, shortness of breath. No other GI or symptoms are reported. Otherwise healthy except for hypertension. All other review of systems reviewed and negative except as stated. Timing/Duration: 12 Hours Severity: Moderate Associated Systoms: No Chest Pain, No Fever/Chills Allergies and Home Medications Allergies Coded Allergies: ibuprofen (Verified Allergy, Unknown, RASH, 05/07/09) Home Medications Amlodipine Besylate 5 Mg Tablet, 5 MG PO DAILY, (Reported) Lisinopril 20 Mg Tablet, 20 MG PO BID, (Reported) Morphine Sulfate 30 Mg Tablet.er, 30 MG PO DAILY, (Reported) Pantoprazole Sodium 40 Mg Tablet.dr, 40 MG PO DAILY, (Reported) Sucralfate 1 Gm Tablet, 1 GM PO QID Prescribed by: AKIRA RODRIGUEZ on 05/24/202118 Patient Home Medication List Home Medication List Reviewed: Yes Review of Systems Review of Systems Constitutional: no symptoms reported EENTM: no symptoms reported Respiratory: no symptoms reported Cardiovascular: no symptoms reported Gastrointestinal: No nausea, No vomiting; other (food bolus) Genitourinary: no symptoms reported Musculoskeletal: no symptoms reported Skin: no symptoms reported All Other Systems Reviewed Negative Unless Noted: Yes Past Dvnklxk-Fyiabr-Zdgswt Hx Patient Social History Alcohol Beverage of Choice: Beer Type Used: Cigarettes Former Smoker, Quit: Aug 18, 1986 2nd Hand Smoke Exposure: No Recent Foreign Travel: No Contact w/Someone Who Travel: No Recent Infectious Disease Expo: No Recent Hopitalizations: No Immunizations Up To Date Tetanus Booster (TDap): Unknown PED Vaccines UTD: No Date of Pneumonia Vaccine: Jun 04, 2019 Date of Influenza Vaccine: Jun 18, 2020 Seasonal Allergies Seasonal Allergies: Yes Past Medical History Surgeries: Yes Abdominal, Appendectomy, Bowel Surgery, Eye Surgery Respiratory: No Currently Using CPAP: No Currently Using BIPAP: No Cardiac: Yes Hypertension Neurological: No Reproductive Disorders: No Sexually Transmitted Disease: No HIV/AIDS: No Genitourinary: Yes (PROSTATE CANCER--S/P RADIATION SEED IMPLANTS) Gastrointestinal: Yes (history of esophageal food bolus) Gastroesophageal Reflux, Gastrointestinal Bleed, Chronic Constipation, Polyps Musculoskeletal: Yes Arthritis Endocrine: No HEENT: Yes (CATARACTS REMOVED) Dysphagia Cancer: Yes Prostate, Skin Did You Recieve Any Treatments: Yes What Type of Treatment Did You: Radiation Psychosocial: No Integumentary: No Blood Disorders: Yes (ANEMIA) Family Medical History Hypertension Physical Exam Vital Signs Vital Signs - First Documented 07/15/20 09:27 Temp 36.1 Pulse 73 Resp 18 B/P (MAP) 172/100 (124) Pulse Ox 97 O2 Delivery Simple Mask Capillary Refill : Less Than 3 Seconds Height, Weight, BMI Height: 5'11.00" Weight: 155lbs. 0.0oz. [id number]; 22.00 BMI Method:Stated General Appearance: No Apparent Distress, WD/WN Eyes: Bilateral Eye Normal Inspection, Bilateral Eye PERRL, Bilateral Eye EOMI Neck: Normal Inspection Respiratory: Lungs Clear, Normal Breath Sounds, No Accessory Muscle Use, No Respiratory Distress Cardiovascular: Regular Rate, Rhythm Gastrointestinal: Normal Bowel Sounds, Non Tender, Soft Extremity: Normal Inspection Neurologic/Psychiatric: Alert, Oriented x3, No Motor/Sensory Deficits, Normal Mood/Affect Progress/Results/Core Measures Suspected Sepsis Recent Fever Within 48 Hours: No Infection Criteria Present: None New/Unexplained Altered Menta: No Sepsis Screen: No Definite Risk SIRS Temperature: Pulse: 73 Respiratory Rate: 18 Blood Pressure 172 /100 Mean: 124 Results/Orders My Orders Orders - MARIELOS WOLFF MD Ed Iv/Invasive Line Start (07/15/20 09:37) Glucagon Emergency Kit (Glucagon Emergen (07/15/20 09:42) Glucagon Emergency Kit (Glucagon Emergen (07/15/20 09:45) Medications Given in ED Current Medications Medications Dose Ordered Sig/Elsa Route Start Time Stop Time Status Last Admin Dose Admin Glucagon 2 mg ONCE ONCE IV 07/15/20 09:45 07/15/20 09:47 DC 07/15/20 09:50 2 MG Vital Signs/I&O 07/15/20 07/15/20 09:27 10:10 Temp 36.1 Pulse 73 85 Resp 18 B/P (MAP) 172/100 (124) 163/118 Pulse Ox 97 99 O2 Delivery Simple Mask Room Air Capillary Refill : Less Than 3 Seconds Blood Pressure Mean: 124 Progress Note : Time: 09:50 Progress Note 85-year-old male presents to the emergency room today with a chief complaint of a food bolus. Patient has been fighting this for approximately the last 12 hours. Patient states that he cannot swallow his own secretions. This is happened many times in the past. Patient is given 2 mg of glucagon IV to attempt to relax the esophagus in order to pass the food bolus. reevaluated after glucagon, about 30 minutes, no relief of symptoms. reviewed the patient's medical records from approximately 1 month ago when he had a piece of chicken stuck in the lower esophagus. Patient was scheduled for follow-up 1 month after his procedure on June 19. Has not quite made it to that. Discussed with Dr. Calderón on for general surgery, will take him to the endoscopy suite this morning for removal of the food bolus. Departure Communication (Admissions) Time/Spoke to Consulting Phy: 10:[address] Calderón, will add onto the endo lab schedule Impression Primary Impression: Impacted esophageal foreign body Disposition: ADMITTED INPATIENT Condition: Stable Admissions Decision to Admit Reason: Admit from ER (General) Decision to Admit/Date: Jul 15, 2020 Time/Decision to Admit Time: 10:23 Departure-Patient Inst. Referrals: ARUN DUONG MD (PCP/Family) Primary Care Physician MARIELOS WOLFF MD Jul 15, 2020 09:45
--- NOTE | 2020-07-15 10:04 | NUR ---
TO ROOM STILL UNABLE TO SWALLOW SLAVIA
--- NOTE | 2020-07-15 10:33 | Progress Note-Pre Operative ---
Pre-Operative Progress Note H&P Reviewed The H&P was reviewed, patient examined and no changes noted. Date Seen by Provider: Jul 15, 2020 Time Seen by Provider: 10: Date H&P Reviewed: Jul 15, 2020 Time H&P Reviewed: :30 Pre-Operative Diagnosis: GERD, recurrent dysphagia and esoph FB NATE FITCH MD Jul 15, 2020 10:33
--- NOTE | 2020-07-15 10:38 | NUR ---
DR MAGANA TALKED WITH DR CONSTANTINE SCOTT TO TAKE TO ENDO.
--- NOTE | 2020-07-15 10:44 | NUR ---
TALKED WITH ENDO STATES IT WILL BE UNDER GENERAL ANESTHESIA AND WILL GO THE OR.
--- NOTE | 2020-07-15 10:46 | NUR ---
TALKED WITH PATIENT CAITLYN FAMILY AWARE OF WHAT IS GOING ON I DO NOT NEED TO CALL
--- NOTE | 2020-07-15 10:59 | NUR ---
BRIGID FROM ENDO CALLEAD OVER AND SAID DR FITCH NOT COMING TO DEPARTMENT BECAUSE HE HAS SEE HIM RECENT. AND GET CONSENT FOR EGD FOOD BOLUS. AND COVID SWAB.
--- NOTE | 2020-07-15 11:26 | HISTORY AND PHYSICAL ---
DATE OF SERVICE: ATTENDING PRIMARY CARE PHYSICIAN: Andree Paris MD. HISTORY OF PRESENT ILLNESS: The patient is an 85-year-old male known to us. He was last seen on 06/19/2020 for dysphagia and esophageal foreign body. He has had multiple EGDs as well as multiple removal of foreign body of the esophagus and dilatations in the past. He continues to be noncompliant and smokes and drinks alcohol daily. He has been prescribed multiple PPI acid reducers as well as Carafate; however, has been noncompliant with that as well. He presents again today with eating fish last night and having substernal pressure sensation and inability to swallow his own saliva. PAST MEDICAL HISTORY: Gastroesophageal reflux disease, esophageal stricture, hypertension, chronic constipation, degenerative joint disease, history of prostate cancer, bilateral cataracts. PAST SURGICAL HISTORY: Partial gastric resection, appendectomy, bilateral cataract surgery. ALLERGIES: IBUPROFEN. MEDICATIONS: Amlodipine 5 mg daily, lisinopril 20 mg b.i.d., morphine 30 mg daily, Protonix 40 mg daily, Carafate 1 gram q.i.d. SOCIAL HISTORY: Positive smoke. Does drink beer daily. FAMILY HISTORY: Noncontributory. VITAL SIGNS: Temperature 36.1, blood pressure 163/118, pulse 85, respirations 18, pulse ox 99% on room air. REVIEW OF SYSTEMS: A well-nourished male in no acute distress. He is not experiencing any shortness of breath or difficulty breathing. He is experiencing substernal chest pressure sensation as well as dysphagia. No hematemesis, no coffee ground emesis. History of constipation, no red blood per rectum, no dark tarry stools. No fever, chills, no recent inadvertent weight loss. All other review of systems negative. PHYSICAL EXAMINATION: CHEST: Distant breath sounds and scattered wheezes bilaterally. HEART: Regular, no murmurs. EXTREMITIES: No lower extremity edema, negative Homans sign. HEENT: No scleral icterus. NECK: No cervical lymphadenopathy. ABDOMEN: Soft, nondistended with mild pain in the epigastric region upon deep palpation. SKIN: Warm, dry. ASSESSMENT AND PLAN: An 85-year-old male with a known history of significant gastroesophageal reflux disease, esophageal stricture and medical noncompliance with multiple esophageal foreign bodies. He again presents with dysphagia and another esophageal foreign body. We will proceed with EGD, removal of foreign body as well as possible esophageal dilatation. Job ID: [id number] DocumentID: [id number] Dictated Date: 07/15/2020 10:32:24 Licensed Practical Nurse Clinic Nurse Date: 07/15/2020 11:25:48 Dictated By: NATE FITCH MD
--- NOTE | 2020-07-15 11:54 | NUR ---
NOTIFED ENDO THAT COVID TEST WAS NEG
[2020-07-15] MEDS ORDERED: MIDAZOLAM 5 MG/5 ML (VERSED) VIAL ONE ×2 (12:15)
[2020-07-15] MEDS ORDERED: LIDOCAINE JELLY 2% 6 ML SYRINGE ONE (12:15)
[2020-07-15] MEDS ORDERED: fentaNYL INJECTION 100 MCG/2 ML AMP ONE (12:15)
[2020-07-15] MEDS ORDERED: NS IV 500 ML 500 ML ONE (12:16)
[2020-07-15] MEDS ORDERED: NS IV 500 ML 500 ML IV PRN (12:27)
[2020-07-15] MEDS ORDERED: LIDOCAINE JELLY 2% 6 ML SYRINGE MM PRN (12:30)
[2020-07-15] MEDS ORDERED: fentaNYL INJECTION 100 MCG/2 ML AMP IVP ONE (12:30)
[2020-07-15] MEDS ORDERED: MIDAZOLAM 5 MG/5 ML (VERSED) VIAL IV ONE (12:30)
--- NOTE | 2020-07-15 13:07 | Progress Note-Post Operative ---
Post-Operative Progess Note Surgeon (s)/House Shorer (s) Surgeon NATE FITCH MD House Shorer: none Pre-Operative Diagnosis GERD, recurrent dysphagia and esoph FB Post-Operative Diagnosis esophageal FB, severe distal esophageal stricture, severe gastritis. Procedure & Operative Findings Date of Procedure 07/15/20 Procedure Performed/Findings EGD with removal esophageal FB, bx, balloon dilatation. Anesthesia Type cs Estimated Blood Loss Estimated blood loss (mL): minimal Specimens/Packing Specimens Removed ge jxn, stomach NATE FITCH MD Jul 15, 2020 13:07
--- NOTE | 2020-07-15 13:09 | Discharge Inst-Surgical ---
D/C Lap Instructions-VALENTINAO Will call and automatically schedule him for EGD and repeat balloon dilatation in 4 weeks. Office will call him for details. Activity as tolerated mechanically soft diet. High Fiber Diet 25g or more per day Avoid Alcohol, Caffeine, Spicy [place] and Acid foods. Drink 64 fluid oz or more of fluids per day. Symptoms to Report: Fever over 101 degree F, Nausea/Vomiting If any problems/questions: Contact your physician or go to Emergency Room NATE FITCH MD Jul 15, 2020 13:09
--- NOTE | 2020-07-15 13:14 | OPERATIVE REPORT ---
DATE OF SERVICE: 07/15/2020 ATTENDING PRIMARY CARE PHYSICIAN: Andree Paris MD PREOPERATIVE DIAGNOSES: Dysphagia, esophageal foreign body, gastroesophageal reflux disease, history of distal esophageal stricture and peptic ulcer disease. POSTOPERATIVE DIAGNOSES: Reflux esophagitis(stage 3), esophageal foreign body, severe distal esophageal stricture, severe peptic ulcer disease, no distal obstructions. PROCEDURE: EGD with removal of esophageal foreign body, biopsy and balloon dilatation. SURGEON: Nate Fitch MD. ANESTHESIA: Conscious sedation. ESTIMATED BLOOD LOSS: Minimal. FINDINGS: Dysphagia, esophageal foreign body, gastroesophageal reflux disease, history of distal esophageal stricture and peptic ulcer disease. DISPOSITION: The patient tolerated the procedure well. INDICATIONS: The patient is an 85-year-old male known to us. He has a longstanding history of peptic ulcer disease, gastroesophageal reflux disease, esophageal stricture and multiple episodes of dysphagia and esophageal foreign body. He is well aware of his issues; however, is noncompliant with medication and does continue to smoke and drink alcohol, which exacerbates this issue. He presented again to the Emergency Department with dysphagia after eating fish last night and is unable to swallow his saliva and has substernal chest pressure sensation. DESCRIPTION OF PROCEDURE: The patient was brought to the endoscopy suite, laid in the left lateral decubitus position with head slightly elevated. After adequate IV pain and sedative medications and conscious sedation anesthesia, the mouthpiece was applied. The endoscope was placed in the mouth, visualizing the pharynx and hypopharyngeal region. Vocal cords, epiglottis and vallecula identified and appeared to be normal. The endoscope was then gently intubated, esophageal opening and esophagus insufflated. The endoscope was then advanced to the first, second and third portion of esophagus at the level of GE junction, an esophageal foreign body consistent with fish was identified. First this was copiously irrigated and with gentle pressure, the endoscope, the food bolus was able to be dislodged into the stomach. The distal esophageal stricture was also again identified. Biopsies were taken of this region with forceps with visualization of good hemostasis. The endoscope was then advanced into the stomach and endoscope retroflexed. No hiatal hernia identified. He does have a severe gastritis and also status post an antrectomy and what appears to be a Billroth I to II anastomosis. A biopsy was taken of the body of the stomach to rule out H. pylori with visualization of good hemostasis. The endoscope was then advanced to the efferent limb where no distal obstructions identified. We then proceeded with balloon dilatation of distal esophageal stricture. The balloon was placed in the stomach and placed into the area of the stricture. We first proceeded to 2 atmospheres of pressure with mild resistance. We then proceeded to 4 and then 6 atmospheres of pressure with moderate resistance equaling approximately 18 mm in luminal diameter. We left this in place for 60 seconds. The balloon was then desufflated and removed with visualization of good hemostasis as well as no mucosal tears. The endoscope was then slowly withdrawn while taking a second look and suctioning of residual air with no additional findings. The patient tolerated the procedure well. Again, he is severely noncompliant. However, instead of having to present to the Emergency Department on a regular monthly basis, it would most likely be beneficial if he was scheduled on a monthly basis for repeat balloon dilatation to the point where he can hopefully get to around 20 mm, which would help, but not completely halt symptoms of gastroesophageal reflux disease or dysphagia. We will schedule him for another EGD as well as balloon dilatation in four weeks. Job ID: [id number] DocumentID: [id number] Dictated Date: 07/15/2020 12:58:40 Chemical Dependency Therapist Date: 07/15/2020 13:13:54 Dictated By: NATE FITCH MD [facility] HOSPITALBerny
[2020-07-15] MEDS ORDERED: HYDROcodone/APAP 5 MG/325 MG (LORTAB) TAB PO PRN (13:15)
[2020-07-15] MEDS ORDERED: ONDANSETRON 4 MG/2 ML (SDV) Z0FRAN IVP PRN (13:15)
[2020-07-15] MEDS ORDERED: ACETAMINOPHEN 325 MG TABLET PO PRN (13:15)
[2020-07-15] MEDS ORDERED: morphine INJ 10 MG/ML 1ML (SYR OR VIAL) IVP PRN ×2 (13:15)
--- NOTE | 2020-07-15 13:30 | NUR ---
IV ACCESS REMOVED- CATH INTACT. PT ASSISTED WITH DRESSING & TO THE WC. GUILLERMO SILVA TO BRUSH OR BROOM CUTTER PT.
== END 2020-07-15 13:40 | disposition home or self-care (01) ==
LOC: EDUNIT# 09:24 → ER 09:26 → SDC 10:38
PROVIDERS: ATTEND Surgery
DX: T18.128A Food in esophagus causing other injury, initial encounter (principal); K22.2 Esophageal obstruction; K21.00 Gastro-esophageal reflux disease with esophagitis, without bleeding; I10 Essential (primary) hypertension; K59.09 Other constipation; M19.90 Unspecified osteoarthritis, unspecified site; D64.9 Anemia, unspecified; Z79.899 Other long term (current) drug therapy; Z88.5 Allergy status to narcotic agent; Z85.828 Personal history of other malignant neoplasm of skin; Z87.891 Personal history of nicotine dependence; Z85.46 Personal history of malignant neoplasm of prostate; Z87.11 Personal history of peptic ulcer disease; Z20.828 Contact with and (suspected) exposure to other viral communicable diseases
CPT/HCPCS: 43239; 43247; 43249; 99285; U0002; 87635

== ENCOUNTER 2020-08-10 05:32 | Outpatient (RCR) | payer MEDICARE, OTHER | END 2020-08-10 13:50 | disposition home or self-care (01) | LOC: PREOP 05:32 | PROVIDERS: ATTEND Surgery | DX: Z01.812 Encounter for preprocedural laboratory examination (principal); K22.2 Esophageal obstruction; Z20.828 Contact with and (suspected) exposure to other viral communicable diseases | CPT/HCPCS: 87635 ==

== ENCOUNTER 2020-08-12 08:14 | Day surgery (SDC) | payer MEDICARE, OTHER ==
--- NOTE | 2020-08-11 11:23 | HISTORY AND PHYSICAL ---
DATE OF SERVICE: 08/12/2020 DATE OF ADMISSION: 08/12/2020. DATE OF PROCEDURE: 08/12/2020. ATTENDING PRIMARY CARE PHYSICIAN: Andree Paris MD. HISTORY OF PRESENT ILLNESS: The patient is an 85-year-old male, who is known to us. He was last seen on 07/15/2020 for dysphagia as well as esophageal foreign body. He does have a significant history of gastroesophageal reflux disease as well as a history of distal esophageal stricture and peptic ulcer disease. He has been seen in the past for multiple EGDs as well as removal of foreign body and dilatation of the esophagus in the past. On his last EGD, he was found to have reflux esophagitis stage III, esophageal foreign body and severe distal esophageal stricture with severe peptic ulcer disease; however, no distal obstructions. Biopsies were negative for H. pylori as well as negative for Recinos's esophagus. He does continue to be noncompliant and does smoke and drink alcohol daily. He has been prescribed multiple PPI acid marketer as well as Carafate; however, has been noncompliant with these as well. It was decided on his last EGD that we would need to proceed with graded dilatations to see if this would benefit him. He was only able to be dilated to approximately 18 mm in luminal diameter with moderate resistance. We will proceed with a graded dilatation in the hopes to get him around 20 mm and hopefully get resolution of his symptoms. PAST MEDICAL HISTORY: Gastroesophageal reflux disease, esophageal stricture, hypertension, chronic constipation, degenerative joint disease, history of prostate cancer, bilateral cataracts and peptic ulcer disease. PAST SURGICAL HISTORY: Partial gastric resection, appendectomy and bilateral cataract surgery. ALLERGIES: IBUPROFEN. MEDICATIONS: Amlodipine 5 mg daily, lisinopril 20 mg b.i.d., morphine 30 mg daily, Protonix 40 mg daily and Carafate 1 gram q.i.d. SOCIAL HISTORY: Positive for smoke and does drink beer daily. FAMILY HISTORY: Noncontributory. REVIEW OF SYSTEMS: A well-nourished male in no acute distress. He is not experiencing any shortness of breath or difficulty breathing. He does report episodes of substernal chest pressure sensation as well as dysphagia. No hematemesis nor any coffee ground emesis. He does have a history of constipation; however, no red blood per rectum. No dark tarry stools. No fever or chills. No recent inadvertent weight loss. All other review of systems are negative. PHYSICAL EXAMINATION: VITAL SIGNS: Stable. CHEST: Distant breath sounds and scattered wheezes bilaterally. HEART: Regular, no murmurs. EXTREMITIES: No lower extremity edema. Negative Homans sign. HEENT: No scleral icterus. NECK: No cervical lymphadenopathy. ABDOMEN: Soft and nondistended. There is some mild pain in the epigastric region upon deep palpation. SKIN: Warm, dry and pink. NEUROLOGIC: Awake, alert and oriented x3. ASSESSMENT AND PLAN: An 85-year-old male with dysphagia, who also has a known history of gastroesophageal reflux disease as well as esophageal strictures, medical noncompliance and multiple esophageal foreign bodies in the past. Due to his continued dysphagia as well as unable to get him completely dilated on his previous EGD, we will proceed with another EGD with balloon dilatation. The risks and benefits of the procedure as well as the procedure and home care instructions were explained to the patient. The patient verbalized understanding of instructions and agrees to this plan. At this time, we will proceed with an EGD with balloon dilatation. Job ID: [id number] DocumentID: [id number] Dictated Date: 08/11/2020 09:30:43 Remelt Furnace Expediter Date: 08/11/2020 10:16:57 Dictated By: NENA FITZGERALD APRN
[~2020-08-12] VITALS: Ht 180 cm; Wt 79.0 kg
[2020-08-12] VITALS (12 sets, daily range): BP systolic 130–184; BP diastolic 69–93
[2020-08-12] MEDS ORDERED: NS IV 500 ML 500 ML ONE (08:17)
[2020-08-12] MEDS ORDERED: NS IV 500 ML 500 ML IV PRN (09:00)
[2020-08-12] MEDS ORDERED: LIDOCAINE JELLY 2% 6 ML SYRINGE MM PRN (09:00)
[2020-08-12] MEDS ORDERED: HURRICAINE EXT TUBE (BENZOCAINE) XX PRN (09:00)
[2020-08-12] MEDS ORDERED: MIDAZOLAM 5 MG/5 ML (VERSED) VIAL IV ONE (09:00)
[2020-08-12] MEDS ORDERED: fentaNYL INJECTION 100 MCG/2 ML AMP IVP ONE (09:00)
[2020-08-12] MEDS ORDERED: MIDAZOLAM 5 MG/5 ML (VERSED) VIAL ONE ×2 (09:49→09:50)
[2020-08-12] MEDS ORDERED: fentaNYL INJECTION 100 MCG/2 ML AMP ONE (09:49)
[2020-08-12] MEDS ORDERED: LIDOCAINE JELLY 2% 6 ML SYRINGE ONE (09:50)
[2020-08-12] MEDS ORDERED: HURRICAINE EXT TUBE (BENZOCAINE) ONE (09:50)
--- NOTE | 2020-08-12 10:05 | Conscious Sedation/ASA ---
Conscious Sedation Pre-Proced Time 09:30 ASA Score 2 For ASA 3 and 4: Consider anesthesia and medical clearance. Also, for patients with a history of failed moderate sedation consider anesthesia. Airway Lungs Heart ASA score ASA 1: a normal healthy patient ASA 2: a patient with a mild systemic disease (mid diabetes, controlled hypertension, obesity ASA 3: a patient with a severe systemic disease that limits activity (angina, COPD, prior Myocardial infarction) ASA 4: a patient with an incapacitating disease that is a constant threat to life (CHF, renal failure) ASA 5: a moribund patient not expected to survive 24 hrs. (ruptured aneurysm) ASA 6: a declared brain- patient whose organs are being harvested. For emergent operations, add the letter E after the classification Mallampati Classification Grade 2 Sedation Plan Analgesia, Amnesia, Plan communicated to team members, Discussed options with patient/fam, Discussed risks with patient/fam The patient is an appropriate candidate to undergo the planned procedure, sedation, and anesthesia. The patient immediately re-assessed prior to indication. NATE FITCH MD Aug 12, 2020 10:05
--- NOTE | 2020-08-12 10:05 | Progress Note-Pre Operative ---
Pre-Operative Progress Note H&P Reviewed The H&P was reviewed, patient examined and no changes noted. Date Seen by Provider: Aug 12, 2020 Time Seen by Provider: : Date H&P Reviewed: Aug 12, 2020 Time H&P Reviewed: : Pre-Operative Diagnosis: recurrent dysphagia and esoph stricture NATE FITCH MD Aug 12, 2020 10:05
--- NOTE | 2020-08-12 10:06 | Discharge Inst-Surgical ---
D/C Lap Instructions-CONSTANTINE Follow Up Appt in 2 weeks Activity as tolerated High Fiber Diet 25g or more per day Avoid Alcohol, Caffeine, Spicy Macopin and Acid foods. Drink 64 fluid oz or more of fluids per day. Symptoms to Report: Fever over 101 degree F, Nausea/Vomiting If any problems/questions: Contact your physician or go to Emergency Room NATE FITCH MD Aug 12, 2020 10:06
[2020-08-12] MEDS ORDERED: ACETAMINOPHEN 325 MG TABLET PO PRN (10:15)
[2020-08-12] MEDS ORDERED: HYDROcodone/APAP 5 MG/325 MG (LORTAB) TAB PO PRN (10:15)
[2020-08-12] MEDS ORDERED: ONDANSETRON 4 MG/2 ML (SDV) Z0FRAN IVP PRN (10:15)
[2020-08-12] MEDS ORDERED: morphine INJ 10 MG/ML 1ML (SYR OR VIAL) IVP PRN ×2 (10:15)
--- NOTE | 2020-08-12 10:44 | Progress Note-Post Operative ---
Post-Operative Progess Note Surgeon (s)/Division Service Manager (s) Surgeon NATE FITCH MD Division Service Manager: none Pre-Operative Diagnosis recurrent dysphagia and esoph stricture Post-Operative Diagnosis same Procedure & Operative Findings Date of Procedure 08/12/20 Procedure Performed/Findings EGD with bx and balloon dilatation.(19mm) Anesthesia Type cs Estimated Blood Loss Estimated blood loss (mL): minimal Specimens/Packing Specimens Removed ge jxn, stomach pouch NATE FITCH MD Aug 12, 2020 10:44
--- NOTE | 2020-08-12 18:21 | OPERATIVE REPORT ---
DATE OF SERVICE: 08/12/2020 ATTENDING PRIMARY CARE PHYSICIAN: Andree Paris MD. PREOPERATIVE DIAGNOSIS: Symptomatic recurrent dysphagia secondary to a distal esophageal stricture. POSTOPERATIVE DIAGNOSIS: Symptomatic recurrent dysphagia secondary to a distal esophageal stricture. PROCEDURE PERFORMED: EGD with biopsy and balloon dilatation. SURGEON: Nate Fitch MD. ANESTHESIA: Conscious sedation. ESTIMATED BLOOD LOSS: Minimal. FINDINGS: Significant stricture of the distal esophagus, moderate pouch gastritis and Laura limb was widely patent with no distal obstructions. DISPOSITION: The patient tolerated the procedure well. INDICATIONS FOR PROCEDURE: The patient is an 85-year-old male known to us. He has had multiple episodes of dysphagia requiring EGD as well as esophageal foreign body removal. His last one was done on 07/15/2020 and at that time, we were able to dilate to approximately 18 mm in luminal diameter. We had been proactive with him and recommended that he undergo another dilatation versus presenting to the emergency department with an esophageal foreign body. He does have recurrent episodes of symptomatic dysphagia. He also does continue to be noncompliant and does smoke and drink alcohol daily. He has been prescribed multiple proton pump inhibitors as well as Carafate; however, has been erratic at best. DESCRIPTION OF PROCEDURE: The patient was brought to the endoscopy suite and laid in a left lateral decubitus position. After adequate IV pain and sedative medications and conscious sedation anesthesia, the mouthpiece was applied. The endoscope was placed in the mouth, visualizing the pharynx and hypopharyngeal region. Vocal cords, epiglottis and vallecula identified and appeared to be normal. The endoscope was gently intubated, the esophageal opening and esophagus insufflated. The endoscope was then advanced through the first, second and third portions of the esophagus at the level of the GE junction and a tight stricture was once again identified. A biopsy was taken of the GE junction with forceps with visualization of good hemostasis. There were no accompanying masses identified. The endoscope was then advanced into the gastric pouch and the endoscope retroflexed again visualizing a significant stricture. There was a moderate pouch gastritis. The Laura limb was widely patent and no distal obstructions. A biopsy was taken of the stomach pouch to rule out H. pylori. We then proceeded with a balloon dilatation of the distal esophageal stricture. The balloon was placed into the gastric pouch and pulled back to the area of the stricture. We first proceeded slowly to two atmospheres of pressure with a mild resistance. We then proceeded to four atmospheres of pressure slowly until we reached moderate resistance over 19 mm in luminal diameter and left this in place for 60 seconds. The balloon was then desufflated and removed with visualization of good hemostasis as well as no mucosal tears. The endoscope was then slowly withdrawn while taking a second look and suctioning of residual air with no additional findings. The patient tolerated the procedure well. We will recommend the necessary lifestyle and diet accommodation including small and more frequent meals, avoiding to eating at night as well as head elevation while lying supine. He also needs to avoid caffeinated beverages, spicy, greasy and acidic foods as well as alcohol and smoking and be compliant with the medications with a proton pump inhibitor daily as well as Carafate daily. We will also have him follow up in four weeks for scheduling of another balloon dilatation to reach the goal of 20 mm Job ID: [id number] DocumentID: [id number] Dictated Date: 08/12/2020 10:36:19 Agricultural Engineering Teacher Date: 08/12/2020 18:20:29 Dictated By: NATE FITCH MD
== END 2020-08-12 11:14 | disposition home or self-care (01) ==
LOC: ENDO 08:14
PROVIDERS: ATTEND Surgery
DX: K22.2 Esophageal obstruction (principal); K21.00 Gastro-esophageal reflux disease with esophagitis, without bleeding; F17.210 Nicotine dependence, cigarettes, uncomplicated; Z88.6 Allergy status to analgesic agent; Z90.49 Acquired absence of other specified parts of digestive tract; Z85.46 Personal history of malignant neoplasm of prostate; Z87.11 Personal history of peptic ulcer disease

== ENCOUNTER 2020-10-30 07:57 | Emergency (ER) | payer MEDICARE, OTHER ==
[~2020-10-30] VITALS: Ht 180.3 cm; Wt 72.5 kg
[~2020-10-30 07:57] MED LIST changes: -LISI-552 PO; +LISI20TA26 PO
[2020-10-30 08:04] VITALS: BP 173/97
--- NOTE | 2020-10-30 08:15 | ED Integumentary General ---
General Chief Complaint: Laceration Stated Complaint: L ARM LAC History of Present Illness Date Seen by Provider: Oct 30, 2020 Time Seen by Provider: 08:10 Initial Comments 85-year-old male presents with skin tears on his left elbow region. States he was going down some stairs when he stumbled fell. Has a skin tear on the upper and lower aspect of the elbow. He has no other injuries. He has full range of motion. Denies any other symptoms Allergies and Home Medications Allergies Coded Allergies: ibuprofen (Verified Allergy, Unknown, RASH, 05/07/09) Home Medications Amlodipine Besylate 5 Mg Tablet, 5 MG PO DAILY, (Reported) Lisinopril 20 Mg Tablet, 20 MG PO BID, (Reported) Morphine Sulfate 30 Mg Tablet.er, 30 MG PO DAILY, (Reported) Pantoprazole Sodium 40 Mg Tablet.dr, 40 MG PO DAILY, (Reported) Sucralfate 1 Gm Tablet, 1 GM PO QID Prescribed by: AKIRA RODRIGUEZ on 05/24/202118 Patient Home Medication List Home Medication List Reviewed: Yes Review of Systems Review of Systems Constitutional: No chills, No fever EENTM: no symptoms reported Respiratory: no symptoms reported Cardiovascular: no symptoms reported Gastrointestinal: no symptoms reported Musculoskeletal: see HPI Skin: see HPI Psychiatric/Neurological: No Symptoms Reported Endocrine: No Symptoms Reported Hematologic/Lymphatic: No Symptoms Reported Past Msmcxop-Zczxjx-Upcofa Hx Past Med/Social Hx: Reviewed Nursing Past Med/Soc Hx Patient Social History Alcohol Beverage of Choice: Beer Type Used: Cigarettes Former Smoker, Quit: Aug 18, 1986 2nd Hand Smoke Exposure: No Recent Hopitalizations: No Immunizations Up To Date Tetanus Booster (TDap): Unknown PED Vaccines UTD: No Date of Pneumonia Vaccine: Jun 04, 2019 Date of Influenza Vaccine: Jun 18, 2020 Seasonal Allergies Seasonal Allergies: Yes Past Medical History Surgeries: Yes Abdominal, Appendectomy, Bowel Surgery, Eye Surgery Respiratory: No Currently Using CPAP: No Currently Using BIPAP: No Cardiac: Yes Hypertension Neurological: No Reproductive Disorders: No Sexually Transmitted Disease: No HIV/AIDS: No Genitourinary: Yes (PROSTATE CANCER--S/P RADIATION SEED IMPLANTS) Gastrointestinal: Yes (history of esophageal food bolus) Gastroesophageal Reflux, Gastrointestinal Bleed, Chronic Constipation, Polyps Musculoskeletal: Yes Arthritis Endocrine: No HEENT: Yes (CATARACTS REMOVED) Dysphagia Cancer: Yes Prostate, Skin Did You Recieve Any Treatments: Yes What Type of Treatment Did You: Radiation Psychosocial: No Integumentary: No Blood Disorders: Yes (ANEMIA) Family Medical History Hypertension Physical Exam Vital Signs Capillary Refill : General Appearance: no apparent distress HEENT: PERRL/EOMI Neck: full range of motion, supple Cardiovascular: normal peripheral pulses, regular rate, rhythm Respiratory: chest non-tender, normal breath sounds Gastrointestinal: non tender, soft Extremities: normal range of motion, normal capillary refill Neurologic/Psychiatric: alert Skin: other (Moderate skin tear proximal to the left elbow and distal to the left elbow, nonsuturable) Lymphatic: no adenopathy Progress/Results/Core Measures Progress Progress Note : Time: 08:16 Progress Note Patient with 2-minute skin tears around his left elbow. Neither 1 of these are suturable. He has full range of motion of his elbow. He was offered x-ray but does not feel that is needed. He is unsure what his last tetanus was so we will give him an updated tetanus. He will be discharged home in stable condition Departure Impression Primary Impression: Skin tear of elbow without complication Qualified Codes: S51.012A - Laceration without foreign body of left elbow, initial encounter Disposition: 01 HOME, SELF-CARE Condition: Stable Departure-Patient Inst. Referrals: ARUN DUONG MD (PCP/Family) Primary Care Physician Patient Instructions: Wound Care ED Add. Discharge Instructions: Follow-up with your primary care provider next week for recheck of your wound All discharge instructions reviewed with patient and/or family. Voiced understanding. KARTIK ADLER DO Oct 30, 2020 08:15
[2020-10-30] MEDS ORDERED: TETANUS & DIPHTHERIA TOX,ADULT 0.5 ML (TENIVAC) IM ONE (08:30)
[2020-10-30] MEDS ORDERED: TETANUS,DIPTH,PERTUSS P/F (BOOSTRIX) 0.5 ML VIAL IM ONE ×2 (08:34→08:45)
== END 2020-10-30 08:49 | disposition home or self-care (01) ==
LOC: EDUNIT# 07:57 → ER 07:58
DX: S51.012A Laceration without foreign body of left elbow, initial encounter (principal); I10 Essential (primary) hypertension; K21.9 Gastro-esophageal reflux disease without esophagitis; Z88.6 Allergy status to analgesic agent; Z87.891 Personal history of nicotine dependence; Z85.46 Personal history of malignant neoplasm of prostate; Z85.828 Personal history of other malignant neoplasm of skin; Z82.49 Family history of ischemic heart disease and other diseases of the circulatory system; Z23 Encounter for immunization; W10.8XXA Fall (on) (from) other stairs and steps, initial encounter
CPT/HCPCS: 90715

== ENCOUNTER → 2021-11-08 | Outpatient (CLI) | payer MEDICARE, OTHER ==
--- NOTE | 2021-11-08 14:58 | Diagnostic Imaging Report ---
PROCEDURE: US left lower extremity venous. TECHNIQUE: Multiple real-time grayscale images were obtained over the left lower extremity in various projections. Additional duplex Doppler and color Doppler images were also obtained. INDICATION: Left calf swelling The veins of the left leg have good color filling and compressibility. There is phasic flow and a normal response to augmentation. IMPRESSION: Negative venous Doppler left leg Dictated by: Dictated on workstation # [id number]
== END ==
LOC: RAD 12:07
PROVIDERS: ATTEND Nurse Practitioner Family
DX: M79.662 Pain in left lower leg (principal); M79.89 Other specified soft tissue disorders

== ENCOUNTER → 2023-02-17 | Outpatient (CLI) | payer MEDICARE, OTHER | LOC: CARD 13:30 | PROVIDERS: ATTEND Family Medicine | DX: R00.1 Bradycardia, unspecified (principal); R53.83 Other fatigue | CPT/HCPCS: 93246 ==